=== PATIENT | male | born 1940 | race Caucasian/White ===

== ENCOUNTER → 2017-07-08 12:47 | Outpatient (CLI) | payer OTHER, MEDICARE, BC, SELFPAY ==
--- NOTE | 2017-07-08 12:54 | PCM.CR.HP2 ---
CR - History & Physical - General Arrival date:: 07/08/17 Arrival time:: 12:54 Date of Admission: 07/08/17 Referring Physician: [place], [place] Primary Diagnosis: Aortic Valve Replacement - History of Present Cardiac Event Onset Date: Enter Onset Date of cardiac illnesses in Comment field below Valve Replacement/Repair:: Yes - Nov 12, 2016 Pacemaker/ICD: No Type of Symptoms:: shortness of breath with exertion, history of aortic stenosis. Had echo and stress test before skin cancer surgery found 85% reduction of aortic valve. Interventions with present event:: Echo, stress test, subsequent surgery at [facility] Were there any complications?: None known of. - Medications Home Medications: Ambulatory Orders Medication Instructions Recorded ALPRAZolam [Xanax] 0.5 mg PO QHS 10/24/15 Ascorbic Acid [Vitamin C] 1,000 mg PO DAILY 10/24/15 Cyanocobalamin (Vitamin B-12) 5,000 mg PO DAILY 10/24/15 [B-12] Fosinopril Sodium [Monopril] 10 mg PO DAILY 10/24/15 Garlic 1 mg PO DAILY 10/24/15 Hydrochlorothiazide [Hctz] 25 mg PO DAILY 10/24/15 Metformin HCl [Glucophage] 1,000 mg PO BIDCM 10/24/15 Multivitamin [Daily Multiple 1 each PO DAILY 10/24/15 Vitamin] [place]-3 Fatty Acids/Fish Oil 1 each PO BID 10/24/15 [[place] 3 1,000 mg Softgel] Simvastatin [Zocor] 20 mg PO QHS 10/24/15 Vitamin B Complex 1 each PO DAILY 10/24/15 Vitamin E 1,000 unit PO DAILY 10/24/15 Enoxaparin [Lovenox] 90 mg SC Q12@,18 #10 syringe 10/25/15 Metoprolol Tartrate [Lopressor 50 mg PO BID #60 tablet 10/25/15 (beta lisa)] Warfarin [Coumadin] 5 mg PO DAILY@1700 #30 tablet 10/25/15 Acetaminophen with Codeine 2 each PO Q4H 07/08/17 [Acetaminophen-Cod #2 Tablet] Apixaban [Eliquis] 5 mg PO BID 07/08/17 Fluticasone Propionate 16 gm NS 07/08/17 Ipratropium [place] 0.06% 2 spray NASAL TID 07/08/17 [ATROVENT NASAL SPRAY (g)] - Allergies Allergies/Adverse Reactions: Allergies aspirin Adverse Reaction (Verified 10/24/15 13:55) Vomiting pt states he vomits blood diazepam [From Valium] Adverse Reaction (Verified 07/08/17 13:13) Other - Sleep Disorder Evaluation Hx of Sleep Apnea: Yes Do you snore loudly (louder than talking or can be heard through closed doors)?: No Do you often feel tired/ fatigued/ sleepy during daytime?: Yes Has anyone observed you stop breathing during sleep?: No History of Hypertension (for STOP score): Yes STOP Results: Positive Advanced Directives - Advanced Directives Power of Dog Bather: Yes - son has P.O.A for health care Living Will: No Advance Directives on File: No DNR Order?:: No Past Medical History - Problems and Co-Morbidities Problems & Co-Morbidities: Smoking, Dyslipidemia, Diabetes - Type II DM medication controlled., Obesity, Hypertension, Anxiety - Past Medical Illness Past Medical Illness: Arthritis - osteoarthritis, Diabetes, Back Problems - osteoarthritis, degenerative disc disease lower back and neck (chronic pain). Other Medical Illnesses:: Tremors, GERD, skin cancer partial ear removed, fatigue, chronic pain, elevated PSA, balance disturbance walks with cane, chronic sinusitis, hx of kidney stones, tinnitis left ear, ruptured tynamic membrane, - Past Cardiac Illness Past Cardiac Illness: Valve Disorders - aortic valve stenosis (resolved), Arrhythmias - temporary intermittently atrial fibrillation rate controlled and paced following surgery., LV Dysfunction, Ejection Fraction - 60-65%, Coronary Artery Disease - Other Other: Vision/Eye Problems, Cognition Problems - some problems with concentration - Cardiology Procedures/Interventions Cardiology Procedures/Interventions: Heart Catheterization, Echocardiogram, Stress Echocardiogram - Family History Summary Additional Family History: 2 brothers cancer, sister of Heart Disease. Review of Systems - Review of Systems Hints: Right click = Denies (Slash). Left click = Reports ([place]) Review of Present Symptoms: Reports: Shortness of Breath with Exertion - been told he has start of COPD., Dizziness/Lightheadedness - results of vertigo, balance problems., Fatigue, Appetite - Normal, Sleep - Normal. Denies: Shortness of Breath at Rest, Appetite - Special Diet Risk Factor Assessment - Chief Complaint Chief Complaint: Patient presents to cardiac rehab today on the referral from the [facility] following a recent aortic valve replacement in Oct 2016. - Pulse Pulse Rate: 77 - SpO2 97% room air Pulse Rhythm: Regular - Hypertension How long have you been treated?: several years, really do not know for sure how long Blood Pressure Sitting - Left Arm: 142/70 - Diabetes Diabetic History: Type II, Medication Dependent Nutrition Referral for Diabetes: No - Obesity Height: 5 ft 7 in Weight:: 195 lb Weight in Pounds: 195.0 lbs Body Mass Index (BMI): 30.5 Nutritional Referral for Obesity: No - Physical Inactivity Physical Inactivity: None - Risk Stratification Risk Guidelines: Lowest Risk: Risk Factor for Smoking, Risk Factor for Dyslipidemia, Risk Factor for Diabetes, Risk Factor for Hypertension, Risk Factor for Depression, Highest Risk: Risk Factor for Obesity, Risk Factor for Sedentary Lifestyle - For Smoking Smoking Risk Guidelines: Smoking Low Risk: None or quit greater than 6 months ago. Smoking Moderate Risk: Smoker or quit 6 months or less ago. Smoking High Risk: Smoker - For Dyslipidemia Dyslipidemia Risk Guidelines: Low Risk: Moderate Risk: High Risk: 15-25% fat 25.1-29% fat >/= 30% fat. <7% sat fat 7-9% sat fat >9% sat fat. <150 mg chol 150-299 mg chol >/= 300 mg chol. LDL <100 LDL 100-129 LDL >/= 130. Chol/HDL ratio <5.0 Chol/HDL ratio 5.0-6.0 Chol/HDL ratio >6.0. Triglycerides <100 Triglycerides 100-149 Triglycerides >/= 150 - For Diabetes Mellitus Diabetes Risk Guidelines: Diabetes Low Risk: HgA1c <6.5% and/or FBG <120. Diabetes Moderate Risk: HgA1c 6.6-7.9% and/or FBG 120-180. Diabetes High Risk: HgA1c >/= 8% and/or FBG >180 - For Obesity/Overweight Obesity/Overweight Risk Guidelines: Obesity Low Risk: BMI <25.0. Obesity Moderate Risk: BMI 25-29.9. Obesity High Risk: BMI >/= 30.0 - For Hypertension Hypertension Risk Guidelines: Hypertension Low Risk: Systolic <120 and Diastolic <80. Hypertension Moderate Risk: Systolic 120-139 and Diastolic 80-89. Hypertension High Risk: Systolic >/= 140 and Diastolic >/= 90 - For Sedentary Lifestyle Sedentary Lifestyle Risk Guidelines: Sedentary Lifestyle Low Risk: >/= 1,500 kcal/week. Sedentary Lifestyle Moderate Risk: 700-1,499 kcal/week. Sedentary Lifestyle High Risk: < 700 kcal/week - For Depression Depression Risk Guidelines: Depression Low Risk: Not clinically depressed. Depression Moderate Risk: Mildly depressed. Depression High Risk: Clinically depressed Social History - Smoking History Smoking Status: Never smoker Hx Tobacco Use: No Hx Smoking Exposure: No - Alcohol Use Alcohol Usage: No - Substance Abuse Hx Substance Use: No - Occupation Occupation (List type of work in comments):: Retired - Hobbies, Recreation, Social Activities Hobbies: Other - gardening, mowing the grass, enjoy being out in the yard. Recreational Activities: I am able to engage in all my recreational activities - if take my time and do them slow, I can function in all daily activities. Marital Status - Status Marital Status: - Current Living Arrangements Living Environment:: Alone - feels safe at home - Children How many children do you have?: 2 - 1 , 1-son left Do any of your children live nearby?: Yes - outside of [place] - Safety Do you feel safe in your surroundings?: Yes - Assistance Do you need any assistance at home?: none
--- NOTE | 2017-07-08 13:04 | CR.HP_ITS ---
CR - History & Physical - General Arrival date:: 07/08/17 Arrival time:: 12:54 Date of Admission: 07/08/17 Referring Physician: [place], [place] Primary Diagnosis: Aortic Valve Replacement - History of Present Cardiac Event Onset Date: Enter Onset Date of cardiac illnesses in Comment field below Valve Replacement/Repair:: Yes - Nov 12, 2016 Pacemaker/ICD: No Type of Symptoms:: shortness of breath with exertion, history of aortic stenosis. Had echo and stress test before skin cancer surgery found 85% reduction of aortic valve. Interventions with present event:: Echo, stress test, subsequent surgery at [facility] Were there any complications?: None known of. - Medications Home Medications: Ambulatory Orders Medication Instructions Recorded ALPRAZolam [Xanax] 0.5 mg PO QHS 10/24/15 Ascorbic Acid [Vitamin C] 1,000 mg PO DAILY 10/24/15 Cyanocobalamin (Vitamin B-12) 5,000 mg PO DAILY 10/24/15 [B-12] Fosinopril Sodium [Monopril] 10 mg PO DAILY 10/24/15 Garlic 1 mg PO DAILY 10/24/15 Hydrochlorothiazide [Hctz] 25 mg PO DAILY 10/24/15 Metformin HCl [Glucophage] 1,000 mg PO BIDCM 10/24/15 Multivitamin [Daily Multiple 1 each PO DAILY 10/24/15 Vitamin] [place]-3 Fatty Acids/Fish Oil 1 each PO BID 10/24/15 [[place] 3 1,000 mg Softgel] Simvastatin [Zocor] 20 mg PO QHS 10/24/15 Vitamin B Complex 1 each PO DAILY 10/24/15 Vitamin E 1,000 unit PO DAILY 10/24/15 Enoxaparin [Lovenox] 90 mg SC Q12@,18 #10 syringe 10/25/15 Metoprolol Tartrate [Lopressor 50 mg PO BID #60 tablet 10/25/15 (beta lisa)] Warfarin [Coumadin] 5 mg PO DAILY@1700 #30 tablet 10/25/15 Acetaminophen with Codeine 2 each PO Q4H 07/08/17 [Acetaminophen-Cod #2 Tablet] Apixaban [Eliquis] 5 mg PO BID 07/08/17 Fluticasone Propionate 16 gm NS 07/08/17 Ipratropium [place] 0.06% 2 spray NASAL TID 07/08/17 [ATROVENT NASAL SPRAY (g)] - Allergies Allergies/Adverse Reactions: Allergies aspirin Adverse Reaction (Verified 10/24/15 13:55) Vomiting pt states he vomits blood diazepam [From Valium] Adverse Reaction (Verified 07/08/17 13:13) Other - Sleep Disorder Evaluation Hx of Sleep Apnea: Yes Do you snore loudly (louder than talking or can be heard through closed doors)? : No Do you often feel tired/ fatigued/ sleepy during daytime?: Yes Has anyone observed you stop breathing during sleep?: No History of Hypertension (for STOP score): Yes STOP Results: Positive Advanced Directives - Advanced Directives Power of Entry Level Lab Technician: Yes - son has P.O.A for health care Living Will: No Advance Directives on File: No DNR Order?:: No Past Medical History - Problems and Co-Morbidities Problems & Co-Morbidities: Smoking, Dyslipidemia, Diabetes - Type II DM medication controlled., Obesity, Hypertension, Anxiety - Past Medical Illness Past Medical Illness: Arthritis - osteoarthritis, Diabetes, Back Problems - osteoarthritis, degenerative disc disease lower back and neck (chronic pain). Other Medical Illnesses:: Tremors, GERD, skin cancer partial ear removed, fatigue, chronic pain, elevated PSA, balance disturbance walks with cane, chronic sinusitis, hx of kidney stones, tinnitis left ear, ruptured tynamic membrane, - Past Cardiac Illness Past Cardiac Illness: Valve Disorders - aortic valve stenosis (resolved), Arrhythmias - temporary intermittently atrial fibrillation rate controlled and paced following surgery., LV Dysfunction, Ejection Fraction - 60-65%, Coronary Artery Disease - Other Other: Vision/Eye Problems, Cognition Problems - some problems with concentration - Cardiology Procedures/Interventions Cardiology Procedures/Interventions: Heart Catheterization, Echocardiogram, Stress Echocardiogram - Family History Summary Additional Family History: 2 brothers cancer, sister of Heart Disease. Review of Systems - Review of Systems Hints: Right click = Denies (Slash). Left click = Reports ([place]) Review of Present Symptoms: Reports: Shortness of Breath with Exertion - been told he has start of COPD., Dizziness/Lightheadedness - results of vertigo, balance problems., Fatigue, Appetite - Normal, Sleep - Normal. Denies: Shortness of Breath at Rest, Appetite - Special Diet Risk Factor Assessment - Chief Complaint Chief Complaint: Patient presents to cardiac rehab today on the referral from the [facility] following a recent aortic valve replacement in Oct 2016. - Pulse Pulse Rate: 77 - SpO2 97% room air Pulse Rhythm: Regular - Hypertension How long have you been treated?: several years, really do not know for sure how long Blood Pressure Sitting - Left Arm: 142/70 - Diabetes Diabetic History: Type II, Medication Dependent Nutrition Referral for Diabetes: No - Obesity Height: 5 ft 7 in Weight:: 195 lb Weight in Pounds: 195.0 lbs Body Mass Index (BMI): 30.5 Nutritional Referral for Obesity: No - Physical Inactivity Physical Inactivity: None - Risk Stratification Risk Guidelines: Lowest Risk: Risk Factor for Smoking, Risk Factor for Dyslipidemia, Risk Factor for Diabetes, Risk Factor for Hypertension, Risk Factor for Depression, Highest Risk: Risk Factor for Obesity, Risk Factor for Sedentary Lifestyle - For Smoking Smoking Risk Guidelines: Smoking Low Risk: None or quit greater than 6 months ago. Smoking Moderate Risk: Smoker or quit 6 months or less ago. Smoking High Risk: Smoker - For Dyslipidemia Dyslipidemia Risk Guidelines: Low Risk: Moderate Risk: High Risk: 15-25% fat 25.1-29% fat >/= 30% fat. <7% sat fat 7-9% sat fat >9% sat fat. <150 mg chol 150-299 mg chol >/= 300 mg chol. LDL <100 LDL 100-129 LDL >/= 130. Chol/HDL ratio <5.0 Chol/HDL ratio 5.0-6.0 Chol/HDL ratio >6.0. Triglycerides <100 Triglycerides 100-149 Triglycerides >/= 150 - For Diabetes Mellitus Diabetes Risk Guidelines: Diabetes Low Risk: HgA1c <6.5% and/or FBG <120. Diabetes Moderate Risk: HgA1c 6.6-7.9% and/or FBG 120-180. Diabetes High Risk: HgA1c >/= 8% and/or FBG >180 - For Obesity/Overweight Obesity/Overweight Risk Guidelines: Obesity Low Risk: BMI <25.0. Obesity Moderate Risk: BMI 25-29.9. Obesity High Risk: BMI >/= 30.0 - For Hypertension Hypertension Risk Guidelines: Hypertension Low Risk: Systolic <120 and Diastolic <80. Hypertension Moderate Risk: Systolic 120-139 and Diastolic 80-89. Hypertension High Risk: Systolic >/= 140 and Diastolic >/= 90 - For Sedentary Lifestyle Sedentary Lifestyle Risk Guidelines: Sedentary Lifestyle Low Risk: >/= 1 ,500 kcal/week. Sedentary Lifestyle Moderate Risk: 700-1,499 kcal/week. Sedentary Lifestyle High Risk: < 700 kcal/week - For Depression Depression Risk Guidelines: Depression Low Risk: Not clinically depressed. Depression Moderate Risk: Mildly depressed. Depression High Risk: Clinically depressed Social History - Smoking History Smoking Status: Never smoker Hx Tobacco Use: No Hx Smoking Exposure: No - Alcohol Use Alcohol Usage: No - Substance Abuse Hx Substance Use: No - Occupation Occupation (List type of work in comments):: Retired - Hobbies, Recreation, Social Activities Hobbies: Other - gardening, mowing the grass, enjoy being out in the yard. Recreational Activities: I am able to engage in all my recreational activities - if take my time and do them slow, I can function in all daily activities. Marital Status - Status Marital Status: - Current Living Arrangements Living Environment:: Alone - feels safe at home - Children How many children do you have?: 2 - 1 , 1-son left Do any of your children live nearby?: Yes - outside of [place] - Safety Do you feel safe in your surroundings?: Yes - Assistance Do you need any assistance at home?: none
[2017-07-08 13:25] VITALS: BP 142/70; PULSE 77; BMI 30.5
--- NOTE | 2017-07-08 13:26 | PCM.CR.ITP ---
Exercise - Initial Assessment - Visit Date of Eval: 07/08/17 - established initial ITP - Stages of Change Stages of Change:: Action - Exercise Prescription Mode:: Treadmill, Biodyne, Airdyne, NuStep Angina with exercise?: No Target Heart Rate:: 100-108 - Hypertension Do any of the following apply?: Yes Peak Exercise Blood Pressure:: 140/70 - Intervention Home Exercise/Activity Goal:: Sitting Time <3 hrs/day - Education Goals:: Warm-up, RPE DESTINY Scale, S/S, Safe Exercise, Self-Monitoring - Exercise Program Goals Exercise Program Goals: Aerobic Activity >30 min Nutrition - Initial Assessment - Program Goals Nutrition Program Goals: LDL <70. Total Cholesterol <200. HDL >45. Triglycerides <150. HgbA1C <7%. BMI <25 - Visit Date of Assessment:: 07/08/17 - Stages of Change Stages of Change:: Action - Diabetes Diabetes:: Yes Insulin: No Non-Insulin Dependent?: Yes - Metformin 1000 mg twice daily. Do you monitor your blood sugar at home?: Yes - two days a week. - Weight Management Height: 5 ft 7 in Weight:: 195 lb Body Fat %:: 30 - Intervention Referral to dietitian:: No Referral to Diabetic Clinic:: No Will attend diet classes:: Yes - Education Gave educational materials for:: Signs & symptoms of hypoglycemia, Signs & symptoms of hyperglycemia, Relate diabetes to coronary artery disease, Healthy eating Tobacco - Initial Assessment - Program Goals Tobacco Program Goals: Complete smoking cessation. Attend education classes. Improve Knowledge Test score - Stage of Change Stages of Change:: Action - Learning Barriers Learning Barriers: Vision, Cognitive - some problems with concentration, Ready to Learn - Family Support Do you have family support?: Yes - Tobacco Use Tobacco Use: Non-smoker Do you use smokeless tobacco?: No - Intervention Smoking Cessation Referral:: No Individual Education/Counseling:: No Education Schedule Given:: Yes - Education Gave educational material for:: Coronary artery disease, Risk factors, Medical compliance, Cardiac A&P, Angina signs & symptoms Psychosocial - Initial Assess - Target Goals Target Goals: Assess presence or absence of depression. Using a valid screening tool, maximizes coping skills. Positive support system - Stages of Change Stages of Change:: Action - Psychosocial Test Tool Used:: HANDS Depression Questionnaire - Intervention PS - Interventions: Yes Attend Stress Management Classes, No Referral to Mental Health, No Referral to [facility] Case Management, No Referral to Physician, No Uses Stress Management Skills - Education Gave educational materials for:: Coping techniques, Signs & symptoms of depression, Stress management, Relaxation techniques - Patient/Program Goal Preventative Medication(s):: Aspirin, BAYRON inhibitor, Statin/lipid - Assistive Devices Assistive Devices:: Cane Fall Risk Assessed:: No Patient Health Questionnaire Initial Assessment 1. Little interest or pleasure in doing things: Not at all 2. Feeling down, depressed, or hopeless: Not at all 3. Trouble falling or staying asleep, or sleeping too much: Not at all 4. Feeling tired or having little energy: Not at all 5. Poor appetite or overeating: Not at all 6. Feeling bad about yourself -- or that you are a failure or have let yourself or your family down: Not at all 7. Trouble concentrating on things, such as reading the newspaper or watching television: Not at all 8. Moving or speaking so slowly that other people could have noticed. Or the opposite - being so fidgety or restless that you have been moving around a lot more than usual: Not at all 9. Thoughts that you would be better off , or of hurting yourself in some way: Not at all Total Score: 0 Knowledge Test - Check your knowledge Initial The #1 cause of in the [place] each year is:: Cancer Which of the following is a common treatment for heart disease?: Coronary artery stents The arteries that feed the heart are called:: Coronary arteries HDL cholesterol is known as the good cholesterol.: True What disease increases your risk for heart disease?: Diabetes What food product raises blood cholesterol level the most?: Carbohydrates The bad cholesterol in the blood is called:: LDL Hypertension is another word for:: High stress A blood pressure reading of 148/88 is considered normal.: False Exercise will only benefit your health when your heart rate reaches a target level.: False Total Score:: 6 Self-Efficacy Initial Assessment We would like to know how confident you are in doing certain activities. Please select your confidence level for:: Select your confidence level for the following using the scale 1-10 where 1 is not at all confident and 10 is totally confident. Your score is the average of all 6 responses. Fatigue: How confident are you that you can keep the fatigue caused by your disease from interfering with the things you want to do? Select Number: 6 Physical Discomfort or Pain: How confident are you that you can keep the physical discomfort or pain of your disease from interfering with the things you want to do? Select Number: 7 Emotional Distress: How confident are you that you can keep the emotional distress caused by your disease from interfering with the things you want to do? Select Number: 10 Other Symptoms or Health Problems: How confident are you that you can keep other symptoms or health problems from interfering with the things you want to do? Select Number: 6 Different Tasks and Activities: How confident are you that you can do the different tasks and activities needed to manage your health condition so as to reduce your need to see a doctor? Select Number: 6 Medication: How confident are you that you can do things other than just taking medication to reduce how much your illness affects your everyday life? Select Number: 3 Total Score:: 6 Nutrition Survey - Nutrition Survey Instructions Scoring Instructions: Scoring is as follows: Yes = 1 points. No = 0 point. Patient score that is >/=12 is considered to be at potential nutritional risk and could benefit from a referral to a registered dietitian. - Nutrition Survey Initial Have you lost >10 lbs over the past 2 months without trying?: No Are you following a special diet at home for diabetes, low fat, or low salt?: No Are you interested in meeting with a dietitian for help understanding your diet?: No Do you eat less than 3 meals a day?: No Do you eat fatty meats ([place], sausage, ribs, etc), fried foods, desserts, large amounts of salad dressings, margarine, butter, or cheese most days?: No Do you have food allergies? [Enter types in comment field]: No Do you eat in restaurants more than 3 times a week?: No Do you season food with salt, seasoning salt, or garlic salt?: No Do you used canned, boxed, frozen meals, or soups, seasoning packets?: No Total Score:: 0 Cardiac Rehabilitation Goals - Cardiac Rehab Goals Cardiac Rehabilitation Goals: 1. Maintain the individual as the primary focus of care. 2. To improve the patient's quality of life. 3. Identification of cardiac risk factors and provide cardiac risk factor management. 4. Enhance the psychosocial status of the patient. 5. Reconditioning enough to allow the patient to resume customary activities. 6. Control symptoms of cardiac disease - Scale Scale for measuring improvement of personal goals: Enter appropriate number in Comments. 2 = Unchanged. 3 = Slightly Better. 4 = Moderate Improvement. 5 = Met my Goal Initial Assessment Personal Goals: 30-day Re-assessment: Improve management of stress and emotions, Improve energy level, Participate in home exercise program, Get back to work, or to resume activities faster, Improve knowledge of cardiac disease, Improve muscle strength and endurance, Control risk factors (learn risk factor modification)
[2017-07-08 13:32] VITALS: BP 140/70
== END ==
PROVIDERS: Family Provider Internal Medicine Infectious Disease; PCP Internal Medicine Infectious Disease
DX: Z95.2 Presence of prosthetic heart valve (principal)

== ENCOUNTER 2017-07-26 11:30 | Outpatient (RCR) | payer OTHER, MEDICARE, BC, SELFPAY ==
[2017-07-22 14:42] VITALS: BP 104/60; BP 118/58
--- NOTE | 2017-07-22 14:42 | CR.ITP_ITS ---
General Information - General Information Admitting Diagnosis: AVR; aortic stenosis, afib, htn, dm, dl, melenoma. - Education/Goals Barriers to Learning: Hearing Impairment, Vision Impairment Individual Counseling: Initial Assessment: Abnormal Cholesterol Levels, High Blood Pressure, Diabetes, Metabolic Syndrome (as evidenced by 3 of 5 A-E below) , A. Fasting Blood Sugar >100, B. Waist Circumference >35/Females >40/Males, Hypertension, 30-Day Assessment: Abnormal Cholesterol Levels, High Blood Pressure, Diabetes, Metabolic Syndrome (as evidenced by 3 of 5 A-E below), A. Fasting Blood Sugar >100, B. Waist Circumference >35/Females >40/Males, Hypertension Cardiac Rehabilitation Goals: 1. Maintain the individual as the primary focus of care. 2. To improve the patient's quality of life. 3. Identification of cardiac risk factors and provide cardiac risk factor management. 4. Enhance the psychosocial status of the patient. 5. Reconditioning enough to allow the patient to resume customary activities. 6. Control symptoms of cardiac disease Scale for measuring improvement of personal goals: Enter appropriate number in Comments. 2 = Unchanged. 3 = Slightly Better. 4 = Moderate Improvement. 5 = Met my Goal Personal Goals: Initial Assessment: Improve management of stress and emotions - improving, Improve energy level, Participate in home exercise program - walking more, Get back to work, or to resume activities faster - resuming normal activities, Improve knowledge of cardiac disease, Improve muscle strength and endurance - increasing intensity, Improve diet and eating habits (eat healthier) , 30-day Re-assessment: Improve management of stress and emotions, Improve energy level, Participate in home exercise program, Get back to work, or to resume activities faster, Improve knowledge of cardiac disease, Improve muscle strength and endurance, Improve diet and eating habits (eat healthier) Exercise - 30-day Assessment - Visit Date of Eval: 07/22/17 Session #:: 6 - Stages of Change Stages of Change:: Action - Exercise Prescription Mode:: Treadmill, Airdyne, NuStep Frequency (x/week): 3 Duration:: 30 METs - Progression: 0.5-1 MET as tolerated: 2.5 Target Heart Rate:: 100-108 - Hypertension Resting Blood Pressure:: 104/60 Peak Exercise Blood Pressure:: 118/58 Medication Changes:: No - Intervention Home Exercise/Activity Goal:: Sitting Time <3 hrs/day - Education Goals:: Warm-up, RPE DESTINY Scale, S/S, Safe Exercise, Self-Monitoring - Exercise Program Goals Exercise Program Goals: Aerobic Activity >30 min Nutrition - Initial Assessment - Program Goals Nutrition Program Goals: LDL <70. Total Cholesterol <200. HDL >45. Triglycerides <150. HgbA1C <7%. BMI <25 - Diabetes Do you monitor your blood sugar at home?: Yes - two days a week. Nutrition - 30-Day Assessment - Program Goals Nutrition Program Goals: LDL <70. Total Cholesterol <200. HDL >45. Triglycerides <150. HgbA1C <7%. BMI <25 - Visit Date of Eval: 07/22/17 - Stages of Change Stages of Change:: Action - Lipids Has the patient seen the dietitian?: No - Diabetes Diabetes:: Yes Insulin: Yes Non-Insulin Dependent?: Yes - metformin - Weight Management Weight:: 197 lb - Intervention Referral to dietitian:: No Referral to Diabetic Clinic:: No Will attend diet classes:: Yes - Education Attended class for:: Signs & symptoms of hypoglycemia, Signs & symptoms of hyperglycemia, Relate diabetes to coronary artery disease, Healthy eating Tobacco - Initial Assessment - Program Goals Tobacco Program Goals: Complete smoking cessation. Attend education classes. Improve Knowledge Test score - Learning Barriers Learning Barriers: Vision, Cognitive - some problems with concentration, Ready to Learn Tobacco - 30-Day Assessment - Program Goals Tobacco Program Goals: Complete smoking cessation. Attend education classes. Improve Knowledge Test score - Stage of Change Stages of Change:: Action - Learning Barriers Learning Barriers: Participates in education - Family Support Do you have family support?: Yes - Tobacco Use Tobacco Use: Non-smoker - Intervention Smoking Cessation Referral:: No Individual Education/Counseling:: No Education Schedule Given:: Yes - Education Attended class for:: Coronary artery disease, Risk factors, Sexuality, Medical compliance, Cardiac A&P, Angina signs & symptoms Psychosocial - Initial Assess - Target Goals Target Goals: Assess presence or absence of depression. Using a valid screening tool, maximizes coping skills. Positive support system - Psychosocial Test Tool Used:: HANDS Depression Questionnaire - Assistive Devices Fall Risk Assessed:: No Psychosocial - 30-Day Assess - Target Goals Target Goals: Assess presence or absence of depression. Using a valid screening tool, maximizes coping skills. Positive support system - Stages of Change Stages of Change:: Action - Psychosocial Test Tool Used:: HANDS Depression Questionnaire Self-reported stress:: PTSD Tests Completed: SF - 36 survey completed, Mood Scale Test - Intervention PS - Interventions: Yes Attend Stress Management Classes, Yes Uses Stress Management Skills, No Referral to Mental Health, No Referral to [facility] Case Management, No Referral to Physician - Education Attended classes for:: Coping techniques, Signs & symptoms of depression, Stress management, Relaxation techniques - Patient/Program Goal Preventative Medication(s):: Aspirin, Clopidogrel, Beta lisa, Statin/lipid - Assistive Devices Assistive Devices:: None Fall Risk Assessed:: Yes Patient Health Questionnaire 30-Day Re-eval Assessment 1. Little interest or pleasure in doing things: Not at all 2. Feeling down, depressed, or hopeless: Not at all 3. Trouble falling or staying asleep, or sleeping too much: Not at all 4. Feeling tired or having little energy: Not at all 5. Poor appetite or overeating: Not at all 6. Feeling bad about yourself -- or that you are a failure or have let yourself or your family down: Not at all 7. Trouble concentrating on things, such as reading the newspaper or watching television: Not at all 8. Moving or speaking so slowly that other people could have noticed. Or the opposite - being so fidgety or restless that you have been moving around a lot more than usual: Not at all 9. Thoughts that you would be better off , or of hurting yourself in some way: Not at all Total Score: 0 Self-Efficacy 30-Day Re-eval Assessment We would like to know how confident you are in doing certain activities. Please select your confidence level for:: Select your confidence level for the following using the scale 1-10 where 1 is not at all confident and 10 is totally confident. Your score is the average of all 6 responses. Fatigue: How confident are you that you can keep the fatigue caused by your disease from interfering with the things you want to do? Select Number: 7 Physical Discomfort or Pain: How confident are you that you can keep the physical discomfort or pain of your disease from interfering with the things you want to do? Select Number: 8 Emotional Distress: How confident are you that you can keep the emotional distress caused by your disease from interfering with the things you want to do? Select Number: 10 Other Symptoms or Health Problems: How confident are you that you can keep other symptoms or health problems from interfering with the things you want to do? Select Number: 8 Different Tasks and Activities: How confident are you that you can do the different tasks and activities needed to manage your health condition so as to reduce your need to see a doctor? Select Number: 8 Medication: How confident are you that you can do things other than just taking medication to reduce how much your illness affects your everyday life? Select Number: 6 Total Score:: 7
== END 2017-07-29 23:59 ==
LOC: CR 11:30
PROVIDERS: Family Provider Internal Medicine Infectious Disease; PCP Internal Medicine Infectious Disease
DX: I35.8 Other nonrheumatic aortic valve disorders (principal)
CPT/HCPCS: 93798

== ENCOUNTER 2017-08-28 11:30 | Outpatient (RCR) | payer OTHER, MEDICARE, BC, SELFPAY ==
[2017-07-30 01:08] VITALS: BP 104/60; BP 118/58
--- NOTE | 2017-08-21 09:51 | PCM.CR.ITP ---
General Information - General Information Admitting Diagnosis: Aortic valve replacement - Education/Goals Barriers to Learning: Hearing Impairment, Vision Impairment Individual Counselin-Day Assessment: Abnormal Cholesterol Levels, High Blood Pressure, Diabetes Cardiac Rehabilitation Goals: 1. Maintain the individual as the primary focus of care. 2. To improve the patient's quality of life. 3. Identification of cardiac risk factors and provide cardiac risk factor management. 4. Enhance the psychosocial status of the patient. 5. Reconditioning enough to allow the patient to resume customary activities. 6. Control symptoms of cardiac disease Scale for measuring improvement of personal goals: Enter appropriate number in Comments. 2 = Unchanged. 3 = Slightly Better. 4 = Moderate Improvement. 5 = Met my Goal Personal Goals: 60-day Re-assessment: Improve management of stress and emotions, Improve energy level, Participate in home exercise program, Get back to work, or to resume activities faster, Improve diet and eating habits (eat healthier) Exercise - 60-Day Assessment - Visit Date of Eval: 08/21/17 Session #:: 17 - Stages of Change Stages of Change:: Contemplate - Exercise Prescription Mode:: Treadmill, Airdyne, NuStep Frequency (x/week): 3 Duration:: 30 METs: 3.7 Target Heart Rate:: 100-108 Max HR 103 - Hypertension Resting Blood Pressure:: 122/62 Peak Exercise Blood Pressure:: 152/76 Medication Changes:: No - Intervention Home Exercise/Activity Goal:: Moderate Exercise 30 min/day x 5 days/wk - Education Goals:: Warm-up, RPE DESTINY Scale, S/S, Safe Exercise, Self-Monitoring - Exercise Program Goals Exercise Program Goals: Aerobic Activity >30 min, B/P <130/80 Nutrition - Initial Assessment - Program Goals Nutrition Program Goals: LDL <70. Total Cholesterol <200. HDL >45. Triglycerides <150. HgbA1C <7%. BMI <25 - Diabetes Do you monitor your blood sugar at home?: Yes - two days a week. Nutrition - 60-Day Assessment - Program Goals Nutrition Program Goals: LDL <70. Total Cholesterol <200. HDL >45. Triglycerides <150. HgbA1C <7%. BMI <25 - Visit Date of Eval: 08/21/17 - Stages of Change Stages of Change:: Contemplate - Lipids Has the patient seen the dietitian?: No - Diabetes Diabetes:: Yes - Weight Management Weight:: 86.863 kg - Intervention Referral to dietitian:: No Referral to Diabetic Clinic:: No Will attend diet classes:: Yes - Education Attended class for:: Signs & symptoms of hypoglycemia, Signs & symptoms of hyperglycemia, Relate diabetes to coronary artery disease, Healthy eating Tobacco - Initial Assessment - Program Goals Tobacco Program Goals: Complete smoking cessation. Attend education classes. Improve Knowledge Test score - Learning Barriers Learning Barriers: Vision, Cognitive - some problems with concentration, Ready to Learn Tobacco - 60-Day Assessment - Program Goals Tobacco Program Goals: Complete smoking cessation. Attend education classes. Improve Knowledge Test score - Stage of Change Stages of Change:: Contemplate - Learning Barriers Learning Barriers: Participates in education - Family Support Do you have family support?: Yes - Tobacco Use Tobacco Use: Non-smoker Do you use smokeless tobacco?: No - Intervention Smoking Cessation Referral:: No Individual Education/Counseling:: No Education Schedule Given:: Yes - Education Attended class for:: Tobacco triggers, Coronary artery disease, Risk factors, Sexuality, Medical compliance, Cardiac A&P, Angina signs & symptoms Psychosocial - 60-Day Assess - Target Goals Target Goals: Assess presence or absence of depression. Using a valid screening tool, maximizes coping skills. Positive support system - Stages of Change Stages of Change:: Contemplate - Psychosocial Test Tool Used:: HANDS Depression Questionnaire - Intervention PS - Interventions: Yes Attend Stress Management Classes, Yes Uses Stress Management Skills, No Referral to Mental Health, No Referral to [facility] Case Management, No Referral to Physician - Education Attended classes for:: Coping techniques, Signs & symptoms of depression, Stress management, Relaxation techniques - Assistive Devices Assistive Devices:: Cane Fall Risk Assessed:: Yes Patient Health Questionnaire 60-Day Re-eval Assessment 1. Little interest or pleasure in doing things: Not at all 2. Feeling down, depressed, or hopeless: Not at all 3. Trouble falling or staying asleep, or sleeping too much: Not at all 4. Feeling tired or having little energy: Not at all 5. Poor appetite or overeating: Not at all 6. Feeling bad about yourself -- or that you are a failure or have let yourself or your family down: Not at all 7. Trouble concentrating on things, such as reading the newspaper or watching television: Not at all 8. Moving or speaking so slowly that other people could have noticed. Or the opposite - being so fidgety or restless that you have been moving around a lot more than usual: Not at all 9. Thoughts that you would be better off , or of hurting yourself in some way: Not at all How difficult have these problems made it for you to do your work, take care of things at home, or get along with other people?: Not difficult at all Total Score: 0 Self-Efficacy 60-Day Re-eval Assessment We would like to know how confident you are in doing certain activities. Please select your confidence level for:: Select your confidence level for the following using the scale 1-10 where 1 is not at all confident and 10 is totally confident. Your score is the average of all 6 responses. Fatigue: How confident are you that you can keep the fatigue caused by your disease from interfering with the things you want to do? Select Number: 9 Physical Discomfort or Pain: How confident are you that you can keep the physical discomfort or pain of your disease from interfering with the things you want to do? Select Number: 9 Emotional Distress: How confident are you that you can keep the emotional distress caused by your disease from interfering with the things you want to do? Select Number: 9 Other Symptoms or Health Problems: How confident are you that you can keep other symptoms or health problems from interfering with the things you want to do? Select Number: 9 Different Tasks and Activities: How confident are you that you can do the different tasks and activities needed to manage your health condition so as to reduce your need to see a doctor? Select Number: 9 Medication: How confident are you that you can do things other than just taking medication to reduce how much your illness affects your everyday life? Select Number: 9 Total Score:: 9
[2017-08-21 10:03] VITALS: BP 122/62; BP 152/76
== END 2017-08-29 23:59 ==
LOC: CR 11:30
PROVIDERS: Family Provider Internal Medicine Infectious Disease; PCP Internal Medicine Infectious Disease
DX: I35.8 Other nonrheumatic aortic valve disorders (principal)
CPT/HCPCS: 93798

== ENCOUNTER 2017-09-16 11:30 | Outpatient (RCR) | payer OTHER, MEDICARE, BC, SELFPAY ==
[2017-08-30 00:56] VITALS: BP 122/62; BP 152/76
== END 2017-09-28 23:59 ==
LOC: CR 11:30
PROVIDERS: Family Provider Internal Medicine Infectious Disease; PCP Internal Medicine Infectious Disease
DX: I35.8 Other nonrheumatic aortic valve disorders (principal)
CPT/HCPCS: 93798

== ENCOUNTER 2017-09-18 10:56 | Inpatient (IN) | payer MEDICARE, BC, SELFPAY ==
[2017-09-18] VITALS (8 sets, daily range): BP systolic 116–139; BP diastolic 61–78; PULSE 69–126; RESP 16–24; TEMP 36.4–37; O2SAT 95–97; BMI 31.2; BMI 29.7; BMI 29.8
--- NOTE | 2017-09-18 11:17 | EKG12_ITS ---
Test Reason : FLANK PAIN Blood Pressure : / mmHG Vent. Rate : 072 BPM Atrial Rate : 072 BPM P-R Int : 158 ms QRS Dur : 084 ms QT Int : 386 ms P-R-T Axes : -17 001 008 degrees QTc Int : 422 ms Normal sinus rhythm with sinus arrhythmia Normal ECG Confirmed by SHUKRI HOOPER ([id number]), assistant production editor ANTIONETTE NYE ([id number]) on 09/23/2017 10:45:47 AM Referred By: CLOVIS VILLASEÑOR Confirmed By:SHUKRI HOOPER
--- NOTE | 2017-09-18 11:17 | CT_ITS ---
STUDY: CT ABDOMEN AND PELVIS WITHOUT CONTRAST REASON FOR EXAM: Male, 76 years old. 3 day history of worsening left flank pain. RADIATION DOSAGE (If Supplied By Facility): CTDIvol = ( 12.76 ) mGy, DLP = ( 707.85 ) mGycm TECHNIQUE: Transaxial images were obtained from the dome of the diaphragm to the symphysis pubis without oral contrast, and without intravenous contrast. Sagittal and coronal images were reconstructed. Individualized dose optimization techniques were used for this CT. COMPARISON: None. FINDINGS: Mild degree of increased linear markings at the lung bases suggestive of atelectasis and/or scarring. Prior CABG. Coronary artery calcification. Normal liver. Normal gallbladder and extrahepatic biliary system. Normal spleen. Normal pancreas. Normal bilateral adrenal glands. Moderate degree of right-sided hydronephrosis and hydroureter with the perinephric stranding. Mild to moderate degree of left hydronephrosis and hydroureter with left perinephric stranding. There is a small hiatal hernia. Normal small intestine. There are multiple colonic diverticula consistent with diverticulosis. The appendix is visualized and appears normal. There is diffuse atherosclerotic calcification of the abdominal aorta and its major visceral branches, without a demonstrated aneurysm. Normal inferior vena cava. There is borderline retroperitoneal lymphadenopathy with enlarged nodes no greater than 10mm in the short axis diameter. A Sheffield catheter is seen within the urinary bladder. There is diffuse wall thickening of the bladder. There is evidence of a 4.4 cm x 2.4 cm mass at the base of the bladder worse on the right side. Calcification is seen along the anterior aspect of the mass. Bladder carcinoma should be ruled out. Normal abdominal wall. There are degenerative changes of the visualized lumbar spine. CT/Abdomen/Pelvis without Cont IMPRESSION: Bilateral hydronephrosis and hydroureter most likely secondary to the mass seen at the base of the bladder worse on the right side. Sigmoid diverticulosis. Atherosclerotic plaque formation of the abdominal aorta and origin of the major visceral branches. Electronically Signed: Javier Unger MD at 14:52 EDT Tel [phone], Service support ,
[2017-09-18] MEDS: Morphine 4 MG/ML Syringe IV (11:41)
[2017-09-18] MEDS: Ondansetron 4 MG/2 ML Vial IV (11:41)
[2017-09-18 11:48] LABS: Absolute Lymphocyte Count 1.27 X10^3/ul (0.83-4.51); Absolute Neutrophil Count 9.7 X10^3/uL (2.0-7.7); Basophil# 0.01 X10^3/uL; Basophil% 0.1 % (0-1); Eosinophil# 0.01 X10^3/uL; Eosinophils% 0.1 % (0-5); Hematocrit 35.5 % (40-54); Hemoglobin 12.1 g/dl (13.0-16.5); Lymphocyte # 1.27 X10^3/ul (4.0); Lymphocyte % 10.6 % (19-41); Mean Corp Hgb Conc 34.1 g/gl (32-36); Mean Corpuscular Hgb 32.6 pg (27.0-32.0); Mean Corpuscular Volume 95.7 fL (80-94); Mean Platelet Vol. 10.4 fl (6.2-12.0); Monocyte# 0.91 X10^3/uL; Monocyte% 7.6 % (0-10); Neutrophil # 9.71 X10^3/uL (2.7-7.7); Neutrophil % 81.3 % (47-70); POSITIVE COUNT NO; POSITIVE DIFFERENTIAL NO; POSITIVE MORPHOLOGY NO; Platelet Count 241 K/mm3 (150-450); RBC Distribution Width CV 12.8 % (11.6-14.6); RBC Distribution Width SD 43.7 fl (35.1-43.9); Red Blood Count 3.71 M/mm3 (4.6-6.2); White Blood Count 11.9 K/mm3 (4.4-11.0)
[2017-09-18 11:57] LABS: Bacteria 0 SEEN /hpf (None Seen); Mucous, Urine 0 SEEN /hpf (<or=2+)
[2017-09-18 12:00] LABS: Anion Gap 9 (5-15); BUN 46 mg/dL (7-18); BUN/Creat Ratio 13.3 RATIO (10-20); Calcium,Total 8.6 mg/dL (8.5-10.1); Chloride 112 mmol/L (98-107); Creatinine, Serum 3.47 mg/dL (0.70-1.30); EST Glomerular Filtration Rate 18 mL/min (>60); Est Glom Filt Rate - Afr Amer 22 mL/min (>60); Estimated Creatinine Clearance 16.67 ml/min; Glucose 173 mg/dL (74-106); Potassium 5.1 mmol/L (3.5-5.1); Sodium Level 142 mmol/L (136-145)
[2017-09-18 12:02] LABS: Color, Urine Straw (Yellow); Glucose, Dipstick Normal (Normal); Ketone-Dipstick 5 mg/dl (Negative); Leukocyte Esterase-Dipstick 25 /ul (Negative); Nitrite-Dipstick Negative (Negative); Occult Blood-Urine 150 /ul (Negative); Protein-Dipstick 30 mg/dl (Negative); Specific Gravity, Urine 1.015 (1.002-1.030); Urine Bilirubin Dipstick Negative (Negative); Urine Clarity Clear (Clear); Urine Urobilinogen Normal (Normal)
[2017-09-18 12:19] LABS: Red Blood Cells-Urine 10-25 SEEN /hpf (0-5); Squamous Epithelial Cells - UA 0-5 SEEN /hpf (0-5); White Blood Cells 5-10 SEEN /hpf (0-5)
--- NOTE | 2017-09-18 13:07 | ED.VISSUMM ---
- ER Visit Summary Date of Service: 09/18/17 Chief Complaint: Left flank pain History of Present Illness: The patient is a 76 M who goes to the [facility]. He is a very poor informant. He reports that he has left lower back pain that began 2 days ago. It is a sharp pain that is 10 out of 10 at worst and 8 out of 10 currently. It is worsened by nothing including movement. It is relieved by laying on the floor. He denies any nausea or vomiting. He reports that he had several episodes of black diarrhea 4 days ago. His last bowel movement was today and it was formed and black. Patient reports that he has been unable to empty his bladder for a few weeks. He states that he will sit on the toilet for 10-15 minutes and occasionally passes small volume of urine. He has not had this previously. States that he had a PSA done at the [facility] a few months ago that was 34. He has not seen a urologist. Patient denies any recent injury to his back. No fall or MVA. There is no radiation of the pain to his legs. No numbness, tingling, or weakness in his legs. He denies any fever or chills. Physical Examination: Vitals: Stable. Afebrile. General: Well-nourished and well-developed. Head: Normocephalic atraumatic. Neck: Supple, no lymphadenopathy. No JVD. Nontender. Cardiovascular: Regular rate and rhythm. 2 out of 6 systolic murmur. Respiratory: No respiratory distress. Clear to auscultation bilaterally. Abdominal: Soft, moderate suprapubic tenderness with a grossly distended bladder, nondistended, normal bowel sounds. No guarding, rebound, or peritoneal signs. Back: Nontender. No CVA or vertebral tenderness. Extremities: Nontender, no edema. Skin: Normal color, no rash. Neurologic: Alert and oriented ?3. Cranial nerves II through XII are intact. Normal strength and sensation. Psych: Normal affect. Test Results: EKG is sinus at 72 with no acute changes. UA has 5-10 white blood cells, 10-25 red blood cells, and no bacteria. This was from a cath specimen. Chem-7 is more for chloride 112, glucose 173, BUN 46, creatinine 3.47. The only other creatinine we have for him was in 2016 and that time was 0.91. CBC is marked for white count of 11.9, H&H of 12.1 35.5, 7 neutrophils 81, lymphs lites of 11. Clinical Impression(s) from Imaging Studies Abdomen/Pelvis CT 09/18/17 11:17 IMPRESSION: Bilateral hydronephrosis and hydroureter most likely secondary to the mass seen at the base of the bladder worse on the right side. Sigmoid diverticulosis. Atherosclerotic plaque formation of the abdominal aorta and origin of the major visceral branches. Electronically Signed: Javier Unger MD at 14:52 EDT Tel [phone], Service support , Emergency Department Course and Treatment: Patient had a Sheffield catheter placed and had immediate return of 1400 cc of urine. He was given morphine and Zofran IV. He is resting comfortably. Patient was given a dose of Rocephin IV and his urine was sent for culture. Treatment Plan: Patient has Medicare part a and B. We did discuss with the [facility] and they do not have beds. He was discussed with Dr. Alvarado and Dr. Pérez. He will be admitted for further evaluation and treatment. Disposition: Admitted in improved condition. Impression: 1. Urinary retention. 2. Acute renal insufficiency. 3. Bladder mass. This note was generated with [employer] dictation software. It may contain incorrect words, spelling, and punctuation that were not noted in review of the chart prior to signing ED Disposition - Plan for ED Patient: Chief Complaint: Flank Pain Referrals: Kyleigh Castillo [Primary Care Provider] -
--- NOTE | 2017-09-18 13:12 | ED.DCSUM_ITS ---
- ER Visit Summary Date of Service: 09/18/17 Chief Complaint: Left flank pain History of Present Illness: The patient is a 76 M who goes to the [facility]. He is a very poor informant. He reports that he has left lower back pain that began 2 days ago. It is a sharp pain that is 10 out of 10 at worst and 8 out of 10 currently. It is worsened by nothing including movement. It is relieved by laying on the floor. He denies any nausea or vomiting. He reports that he had several episodes of black diarrhea 4 days ago. His last bowel movement was today and it was formed and black. Patient reports that he has been unable to empty his bladder for a few weeks. He states that he will sit on the toilet for 10-15 minutes and occasionally passes small volume of urine. He has not had this previously. States that he had a PSA done at the [facility] a few months ago that was 34. He has not seen a urologist. Patient denies any recent injury to his back. No fall or MVA. There is no radiation of the pain to his legs. No numbness, tingling, or weakness in his legs. He denies any fever or chills. Physical Examination: Vitals: Stable. Afebrile. General: Well-nourished and well-developed. Head: Normocephalic atraumatic. Neck: Supple, no lymphadenopathy. No JVD. Nontender. Cardiovascular: Regular rate and rhythm. 2 out of 6 systolic murmur. Respiratory: No respiratory distress. Clear to auscultation bilaterally. Abdominal: Soft, moderate suprapubic tenderness with a grossly distended bladder , nondistended, normal bowel sounds. No guarding, rebound, or peritoneal signs. Back: Nontender. No CVA or vertebral tenderness. Extremities: Nontender, no edema. Skin: Normal color, no rash. Neurologic: Alert and oriented ?3. Cranial nerves II through XII are intact. Normal strength and sensation. Psych: Normal affect. Test Results: EKG is sinus at 72 with no acute changes. UA has 5-10 white blood cells, 10-25 red blood cells, and no bacteria. This was from a cath specimen. Chem-7 is more for chloride 112, glucose 173, BUN 46, creatinine 3.47. The only other creatinine we have for him was in 2016 and that time was 0.91. CBC is marked for white count of 11.9, H&H of 12.1 35.5, 7 neutrophils 81 , lymphs lites of 11. Clinical Impression(s) from Imaging Studies Abdomen/Pelvis CT 09/18/17 11:17 IMPRESSION: Bilateral hydronephrosis and hydroureter most likely secondary to the mass seen at the base of the bladder worse on the right side. Sigmoid diverticulosis. Atherosclerotic plaque formation of the abdominal aorta and origin of the major visceral branches. Electronically Signed: Javier Unger MD at 14:52 EDT Tel [phone], Service support , Emergency Department Course and Treatment: Patient had a Sheffield catheter placed and had immediate return of 1400 cc of urine. He was given morphine and Zofran IV. He is resting comfortably. Patient was given a dose of Rocephin IV and his urine was sent for culture. Treatment Plan: Patient has Medicare part a and B. We did discuss with the [facility] and they do not have beds. He was discussed with Dr. Alvarado and Dr. Pérez. He will be admitted for further evaluation and treatment. Disposition: Admitted in improved condition. Impression: 1. Urinary retention. 2. Acute renal insufficiency. 3. Bladder mass. This note was generated with [employer] dictation software. It may contain incorrect words, spelling, and punctuation that were not noted in review of the chart prior to signing ED Disposition - Plan for ED Patient: Chief Complaint: Flank Pain Referrals: Kyleigh Castillo [Primary Care Provider] -
--- NOTE | 2017-09-18 13:19 | ED.RN ---
MEDICARE PART AB PER [place] WITH THE [place]
[2017-09-18] MEDS: Ceftriaxone 1 GM/50 ML BAG IV (13:50)
--- NOTE | 2017-09-18 14:48 | CASEMGMT ---
Social Work Note In to complete initial assessment. Introduced self and role at [facility]. The pt reports to live alone in a one-story home with laundry in the basement. Denies access issues and states he manages the stairs to the basement without difficulty. DME consists of a cane, walkers, toilet riser and w/c. He uses a cane at his baseline. Reports to be independent with ADL's and still drives. Confirms that his PCP is Dr. Castillo and [facility] and for anything they do not cover he uses [facility]. Pt does have advanced directives and his son, Goyo, is his HCPOA. Pt has no hx of HHC or SNF and anticipates returning home at discharge. SHLOMO LAGOS on assigned unit to follow for discharge planning. Tina Ruffin, FREEZING ROOM WORKER, HR INTERN
[2017-09-18] MEDS: Dext 5%-0.45% NS 1,000 ML 150 ML IV ×2 (16:41→21:58)
[2017-09-18 17:55] LABS: Bedside Glucose 124 mg/dL (70-110)
--- NOTE | 2017-09-18 19:09 | PCM.HP.STD ---
Problem List (1) Acute renal failure Status: Acute Qualifiers: Acute renal failure type: unspecified Qualified Code(s): N17.9 - Acute kidney failure, unspecified (2) H/O heart valve replacement with bioprosthetic valve Status: Acute (3) Aortic stenosis Status: Acute Qualifiers: Cardiac valve disease etiology: etiology unspecified Qualified Code(s): I35.0 - Nonrheumatic aortic (valve) stenosis (4) Atrial fibrillation with rapid ventricular response Status: Acute (5) Hypertension Status: Chronic Qualifiers: Hypertension type: essential hypertension Qualified Code(s): I10 - Essential (primary) hypertension (6) Diabetes mellitus type 2 in nonobese Status: Chronic History of Present Illness Date of Admission: 09/18/17 Chief Complaint: low to mid back pain. Patient is a 76 yo WM, presents with JUAN JOSE, admitted on 09/18/17. He was having low back pain for past few days, gradually worsening. He also having problems with urinating for past several month with hesitation, incomplete emptying, and dribbling. He was seen [facility] recently, where PSA was 34. He was supposed to see urologist in near future. He presented to ED today with worsening of back pain. In ED, he was found to have creatinine of 3.47. 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 Sheffield was inserted, had 1.4 liter of urine immediately. The back pain had improved. He also mentioned that he had few days of black stools. His Hgb is 12.1, and baseline is normal. He is on Eliquis for atrial fibrillation. Past Medical History Past Medical History (Chronic Problems): Chronic Problems Hypertension (Chronic) Diabetes mellitus type 2 in nonobese (Chronic) Allergies albuterol Allergy (Verified 09/18/17 11:04) Unknown clonazepam Allergy (Verified 09/18/17 11:04) Unknown ibuprofen Allergy (Verified 09/18/17 11:04) Unknown ipratropium Allergy (Verified 09/18/17 11:04) Unknown aspirin Adverse Reaction (Verified 09/18/17 11:04) Vomiting pt states he vomits blood Home Medications: Ambulatory Orders Medication Instructions Recorded ALPRAZolam [Xanax] 0.5 mg PO 10/24/15 Ascorbic Acid [Vitamin C] 1,000 mg PO DAILY 10/24/15 Fosinopril Sodium [Monopril] 10 mg PO DAILY 10/24/15 Garlic 1 mg PO DAILY 10/24/15 Metformin HCl [Glucophage] 1,000 mg PO BIDCM 10/24/15 Multivitamin [Daily Multiple 1 each PO DAILY 10/24/15 Vitamin] [place]-3 Fatty Acids/Fish Oil 1 each PO DAILY 10/24/15 [[place] 3 1,000 mg Softgel] Simvastatin [Zocor] 20 mg PO QHS 10/24/15 Vitamin B Complex 1 each PO DAILY 10/24/15 Vitamin E 1,000 unit PO DAILY 10/24/15 Metoprolol Tartrate [Lopressor 50 mg PO BID #60 tablet 10/25/15 (beta lisa)] Apixaban [Eliquis] 5 mg PO BID 07/08/17 Acetaminophen [Tylenol Extra 500 mg PO Q6H PRN PRN 09/18/17 Strength] Curamin 3 tab PO QHS 09/18/17 Cyanocobalamin (Vitamin B-12) 5,000 mcg SL BID 09/18/17 [Vitamin B-12] Gabriella Extract [Gabriella] 1,000 mg PO BID 09/18/17 Methylsulfonylmethane [MSM] 1,500 mg PO TID 09/18/17 Niacinamide 500 mg PO DAILY 09/18/17 Pyridoxine HCl [Vitamin B-6] 100 mg PO DAILY 09/18/17 Sodium Chloride 1 gm PO DAILY 09/18/17 Ubidecarenone [Co Q-10] 200 mg PO DAILY 09/18/17 Vanadyl Sulfate 10 mg PO DAILY 09/18/17 Psychiatric History: No pertinent psych hx Smoking Status: Never smoker Tobacco Use: Secondhand - *Family History Sibling History Items: Heart Disease Review of Systems Comment: In general: Patient has been in good health, denied of any constitutional symptoms, such as weight loss, or gain, fever, chills, or night sweats. Patient denied of any profound fatigue. HEENT: Unremarkable. Patient denied of any dizziness, chronic headache, blurred vision, double vision, dry mouth, or nasal congestion. CV/respiratory: There is no exertional shortness of breath, chest pain, palpitation, wheezing, cough, claudication, cold feet, or peripheral edema. GI: Patient denied any abdominal pain, nausea, vomiting, diarrhea, constipation. +Dark stools as above. : See HPI. Neurology: Unremarkable. There is no history of seizure as an adult. Psychological: Unremarkable. Endocrine: Unremarkable. Musculoskeletal: Unremarkable. VTE Information - Inpt Only VTE Present on Admission: No VTE Mechan Device Prophylaxis: SCD's, Knee High RONAN Hose VTE Pharm Prophylaxis ordered?: Yes Patient Problems: Active and Suspected Problems Acute renal failure (Acute) H/O heart valve replacement with bioprosthetic valve (Acute) Objective: In general, patient is a well-nourished and developed adult. HEENT: Head is atraumatic, and normocephalic. Pupils are equal, round, and reactive to light and accommodations. Neck is supple. There is no lymphadenopathy, or thyromegaly. Oral mucosa is pink, and moist. There are no lesions. Heart: Auscultation is normal with regular rhythm and rate. There is no extra heart sounds, or murmurs. S1 and S2 are present. Point of maximal impulse is not displaced. Lungs: Lungs are clear to auscultation bilaterally. There is no wheezing, or crackles. Abdomen: Abdominal wall is non-tender, and non-distended. There is no palpable mass or organomegaly. Normoactive bowel sounds are present. Extremities: There is no cyanosis or clubbing. Peripheral pulses are palpable. There is no edema. Skin: There are no any skin discoloration or lesions. Neurological: CN II - XII are intact. Sensory and motor functions are grossly normal with no obvious deficit. Cerebellar functions are within normal range. Gait was not tested. - Physical Exam Vital Signs Temp Pulse Resp BP Pulse Ox 98.6 F 117 H 20 H 123/61 H 95 09/18/17 16:30 09/18/17 16:54 09/18/17 16:30 09/18/17 16:30 09/18/17 16:30 Oxygen Delivery Method Room Air Intake and Output for Last 24 Hours 09/16/17 09/17/17 09/18/17 23:59 23:59 23:59 Intake Total 426 / 426 Output Total 500 / 3000 Balance -74 / -2574 POC Glucose 09/18/17 17:46 POC Glucose 124 H Assessment/Plan All Active Problems Acute renal failure (Acute) H/O heart valve replacement with bioprosthetic valve (Acute) Aortic stenosis (Acute) Atrial fibrillation with rapid ventricular response (Acute) Patient is a 76 yo WM, presents with JUAN JOSE, admitted on 09/18/17. He was having low back pain for past few days, gradually worsening. He also having problems with urinating for past several month with hesitation, incomplete emptying, and dribbling. He was seen at [facility] recently, where PSA was 34. He was supposed to see urologist in near future. He presented to ED today with worsening of back pain. In ED, he was found to have creatinine of 3.47. 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 Sheffield was inserted, had 1.4 liter of urine immediately. The back pain had improved. He also mentioned that he had few days of black stools. His Hgb is 12.1, and baseline is normal. He is on Eliquis for atrial fibrillation. #1 JUAN JOSE. Due to post-renal failure with obstruction, likely with prostate mass. Sheffield is in place. He would like to follow up at [facility] eventually, but consult urology here for management of obstructive uropathy. Nephrology consult requested. IVF support to match post-obstructive diuresis. #2 Bladder mass. Likely with prostate cancer. Urology consulted. #3 DM II. Hold metformin. Sliding scale insulin was added. #4 UTI. UA is positive, await culture. Started on ceftriaxone empirically. Continue. #5 Chronic blood loss anemia. He had recent black stool, and on anticoagulation. Check Hemoccult stool. Iron panel. Monitor CBC. #6 History of with aortic valve replacement with bioprosthetic valve. #7 Chronic atrial fibrillation. Rate controlled with metoprolol. Continue Eliquis for anticoagulation. VTE prophylaxis: Eliquis po. GI prophylaxis: PPI po. He is full code. Disposition: Home in 2 to 3 days. Code Visit Inpatient E&M: 94905 Init Hosp L3
[2017-09-18] MEDS: Metoprolol Tartrate 50 MG Tablet PO (21:48)
[2017-09-18] MEDS: Acetaminophen 325 MG Tablet 650 MG PO (21:48)
[2017-09-18] MEDS: APIXABAN 5 MG TABLET PO (21:48)
[2017-09-18] MEDS: Atorvastatin Calcium 10 MG Tablet PO (21:48)
[2017-09-18] MEDS: Insulin Lispro 100 UNIT/ML INSULN.PEN SQ (21:52)
[2017-09-18 22:06] LABS: Bedside Glucose 160 mg/dL (70-110)
[2017-09-18] MEDS: Glucerna Shake 120 ML LIQUID PO (22:45)
[2017-09-19] VITALS (9 sets, daily range): BP systolic 122–145; BP diastolic 62–72; PULSE 71–90; RESP 14–16; TEMP 36.7–36.9; O2SAT 96–98
[2017-09-19] MEDS: Acetaminophen 325 MG Tablet 650 MG PO ×3 (03:54→22:52)
[2017-09-19] MEDS: Dext 5%-0.45% NS 1,000 ML 150 ML IV ×4 (03:54→23:29)
[2017-09-19] MEDS: Insulin Lispro 100 UNIT/ML INSULN.PEN SQ ×2 (06:35→12:08)
[2017-09-19 06:38] LABS: Absolute Lymphocyte Count 1.53 X10^3/ul (0.83-4.51); Absolute Neutrophil Count 6.9 X10^3/uL (2.0-7.7); Basophil# 0.02 X10^3/uL; Basophil% 0.2 % (0-1); Eosinophil# 0.06 X10^3/uL; Eosinophils% 0.6 % (0-5); Hematocrit 31.2 % (40-54); Hemoglobin 10.4 g/dl (13.0-16.5); Lymphocyte # 1.53 X10^3/ul (4.0); Mean Corp Hgb Conc 33.3 g/gl (32-36); Mean Corpuscular Hgb 32.2 pg (27.0-32.0); Mean Corpuscular Volume 96.6 fL (80-94); Mean Platelet Vol. 10.8 fl (6.2-12.0); Monocyte# 0.99 X10^3/uL; Monocyte% 10.4 % (0-10); Neutrophil # 6.94 X10^3/uL (2.7-7.7); Neutrophil % 72.6 % (47-70); Platelet Count 242 K/mm3 (150-450); RBC Distribution Width CV 12.8 % (11.6-14.6); RBC Distribution Width SD 43.4 fl (35.1-43.9); Red Blood Count 3.23 M/mm3 (4.6-6.2); White Blood Count 9.6 K/mm3 (4.4-11.0)
[2017-09-19 06:40] LABS: Bedside Glucose 157 mg/dL (70-110)
[2017-09-19 06:41] LABS: POSITIVE COUNT NO; POSITIVE DIFFERENTIAL NO; POSITIVE MORPHOLOGY NO
[2017-09-19 06:57] LABS: Anion Gap 8 (5-15); BUN 35 mg/dL (7-18); BUN/Creat Ratio 17.2 RATIO (10-20); Calcium,Total 7.6 mg/dL (8.5-10.1); Chloride 115 mmol/L (98-107); Creatinine, Serum 2.04 mg/dL (0.70-1.30); EST Glomerular Filtration Rate 34 mL/min (>60); Est Glom Filt Rate - Afr Amer 41 mL/min (>60); Estimated Creatinine Clearance 28.35 ml/min; Ferritin 192 ng/mL (26-388); Glucose 167 mg/dL (74-106); Iron 47 ug/dL (65-175); Iron Binding Capacity,Total 206 ug/dL (250-450); PERCENT IRON SATURATION 22.8 % (15.0-55.0); Potassium 4.2 mmol/L (3.5-5.1); Sodium Level 145 mmol/L (136-145)
--- NOTE | 2017-09-19 07:37 | PCM.PN.HOSP ---
Patient Problems: Active and Suspected Problems Acute renal failure (Acute) H/O heart valve replacement with bioprosthetic valve (Acute) BPH with urinary obstruction (Acute) Urinary retention (Acute) Subjective: Patient with improvement since admission status post Crump placement with decent output, mild hematuria with evaluation this morning per Dr. Alvarado w/ planned outpatient evaluation and set up for urological intervention for bladder mass. Patient states that his lower back discomfort and suprapubic discomfort have improved since admission but still he does have this intermittently. Discussed plan of care which includes echocardiogram today and discharge once creatinine decreased felt appropriate, possibly today pending nephrology evaluation with outpatient cardiology evaluation and clearance prior to follow-up with Dr. Escalante for arrangement of urological intervention. Patient denies fevers, chills, nausea, emesis, abdominal pain, chest pain or dyspnea. Objective: Physical Examination: General: awake, alert, oriented x 3 and cooperative, seated upright in bed in no apparent distress. Skin: normal color, turgor, no icterus, cyanosis except occasional extremity very staged ecchymoses. HEENT: AT/NC, EOMI, PERRLA, MMM. Lungs: Diminished breath sounds bases, moderate effort, no rales, ronchi or wheezing. Heart: Regular rate and rhythm; no gallop, rub audible, SM, s/p AVR. Abdomen: soft, thin/cachectic appearance, minimal suprapubic TTP, ND, normal BS, crump in place. Extremities: no cyanosis, clubbing, or edema. Neurological: patient awake, alert, oriented x 3; cognitive function intact; pupils equally reactive to light and accomodation; cranial nerves II-XII grossly normal, moving all 4 extremities, no focal deficits, strength moderately to severely globally decreased. Psychiatric: affect appears normal, no acute evidence of depressive or anxiety feelings. Vitals/I&O's: Vital Signs Temp Pulse Resp BP Pulse Ox 98.4 F 82 16 124/72 H 96 09/19/17 03:50 09/19/17 03:53 09/19/17 03:50 09/19/17 03:50 09/19/17 03:50 Oxygen Delivery Method Room Air Intake and Output for Last 24 Hours 09/17/17 09/18/17 09/19/17 23:59 23:59 23:59 Intake Total 1374 / 1374 987 / 987 Output Total 1000 / 3500 1000 / 1000 Balance 374 / -2126 -13 / -13 Laboratory Results 09/18/17 17:46: POC Glucose 124 H 09/18/17 21:50: POC Glucose 160 H 09/19/17 05:40: WBC 9.6, RBC 3.23 L, Hgb 10.4 L, Hct 31.2 L, MCV 96.6 H, MCH 32.2 H, MCHC 33.3, RDW 12.8, RDW Differential 43.4, Plt Count 242, MPV 10.8, Immature Gran % (Auto) 0.200, Neut % (Auto) 72.6 H, Lymph % (Auto) 16.0 L, Grimes % (Auto) 10.4 H, Eos % (Auto) 0.6, Baso % (Auto) 0.2, Absolute Neuts (auto) 6.9, Absolute Lymphs (auto) 1.53, Total Counted Not Reportable 09/19/17 05:40: Sodium 145, Potassium 4.2, Chloride 115 H, Carbon Dioxide 22.0, Anion Gap 8, BUN 35 H, Creatinine 2.04 H, Estim Creat Clear Calc 28.35, Est GFR (MDRD) Af Amer 41 L, Est GFR (MDRD) Non-Af 34 L, BUN/Creatinine Ratio 17.2, Glucose 167 H, Calcium 7.6 L, Iron 47 L, TIBC 206 L, Iron Saturation 22.8, Ferritin 192 09/19/17 06:33: POC Glucose 157 H Current Medications Acetaminophen (Tylenol) 650 mg PO Q6H PRN PRN PRN Reason: Mild Pain (1-3)/Temp > 100.7 F Last Admin: 09/19/17 03:54 Dose: 650 mg Al Hydroxide/Mg Hydroxide (Mylanta Ii) 30 ml PO Q6H PRN PRN PRN Reason: Gastric burning Apixaban (Eliquis) 5 mg PO BID [facility] Last Admin: 09/18/17 21:48 Dose: 5 mg Ascorbic Acid (Vitamin C) 1,000 mg PO DAILY@0800 [facility] Atorvastatin Calcium (Lipitor) 10 mg PO QHS [facility] Last Admin: 09/18/17 21:48 Dose: 10 mg Cyanocobalamin (Vitamin B12) 1,000 mcg PO DAILY@0800 [facility] Dextrose (D50w Syringe) 0 gm IV X1 PRN; Protocol PRN Reason: Hypoglycemia Glucagon () 1 mg IM .X1 PRN PRN Reason: Hypoglycemia Dextrose/Sodium Chloride () 1,000 mls @ 150 mls/hr IV .Q6H40M [facility] Last Admin: 09/19/17 03:54 Dose: 150 mls/hr Insulin Human Lispro (Humalog Kwikpen (Bkc)) 0 unit SQ ACHS GABRIELLE PRN Reason: Protocol Last Admin: 09/19/17 06:35 Dose: 1 units Magnesium Hydroxide (Milk Of Magnesia) 30 ml PO DAILY PRN PRN PRN Reason: Constipation Metoprolol Tartrate (Lopressor (Beta Lisa)) 50 mg PO BID [facility] Last Admin: 09/18/17 21:48 Dose: 50 mg Nutritional Formula (Lactose Free) (Glucerna Shake) 120 ml PO 4X/DAY [facility] Last Admin: 09/18/17 22:45 Dose: 120 ml Ondansetron HCl (Zofran) 4 mg IV Q8H PRN PRN PRN Reason: NAUSEA Oxycodone HCl (Oxyir) 5 - 10 mg PO Q4H PRN PRN PRN Reason: MOD-SEVERE PAIN (4-10/10) Pantoprazole Sodium (Protonix) 20 mg PO DAILY [facility] Pyridoxine HCl (Vitamin B-6) 100 mg PO DAILY [facility] Sodium Chloride () 5 - 30 ml IV UD PRN PRN Reason: SALINE FLUSH Zolpidem Tartrate (Ambien (Generic)) 5 mg PO QHS PRN PRN PRN Reason: INSOMNIA Medical Necessity - Tobacco Use Smoking Status: Never smoker Tobacco Use: Secondhand Assessment/Plan All Active Problems Acute renal failure (Acute) H/O heart valve replacement with bioprosthetic valve (Acute) BPH with urinary obstruction (Acute) Urinary retention (Acute) Aortic stenosis (Acute) Atrial fibrillation with rapid ventricular response (Acute) The patient is a 76 y/o M w/ PMHx: Valvular Heart Disease w/ History of Bioprosthetic AVR, PAF, HTN, HLD, Diabetes mellitus type II who presents to the [facility] ED on 09/18/17 w/ onset low back discomfort worsening over the last several days with difficulty with urination including hesitation, incomplete emptying and dribbling with recent [facility] with PSA 34 with planned urology evaluation in the future. (1) Acute kidney injury secondary to BL Hydronephrosis and Hydroureter secondary to Mass Lesion at the Bladder Base causing Obstruction: Admission BUN/Cr 46/3.47, prior baseline creatinine noted to be normal range, 09/19/17 BUN/Cr 35/2.04, Urology evaluation performed, crump placed with improving function as noted, Nephrology consulted and pending, will plan once improvement Cr per their discretion appropriate discharge to home w/ crump in place, planned Cardiology evaluation for clearance and then follow-up with Dr. Alvarado for operative intervention. UA not marked, no evidence UTI thus per discussion with Dr. Alvarado, defer abx therapy. Will add PT, OT, case management for discharge planning especially given patient lives alone and is debilitated. (2) PAF: Discussion w/ Urology s/p evaluation this AM, no planned intervention this admission, will plan discharge to home w/ outpatient follow-up with his Claims Coordinator for clearance (Dr. Glasgow) with then follow-up in the office with Dr. Alvarado, continue Eliquis, continue metoprolol. ECHO ordered prior to discharge secondary to last noted 2015, [facility]. (3) Valvular Heart Disease: History of Bioprosthetic AVR, ECHO pending, on eliquis. (4) Diabetes mellitus type II: Hold oral home regimen, continue home insulin regimen, ADA diet, accu checks w/ ISS. HgbA1c pending, nutrition consultation for diet education and teaching to improve operative outcomes. (5) Hyperlipidemia: Continue home statin regimen. (6) Hypertension: Continue home regimen including metoprolol, PRN hydralazine. (7) Macrocytic Anemia: Admission Hgb 12.1, Fe panel w/ low Fe saturation, low end TIBC, likely combination Fe deficiency/AOCD, pending vitamin B12 and folic acid, add Fe supplementation in interim. (8) GERD: PPI. (9) Severe-Moderate Protein-Calorie Malnutrition: Evidenced per habitus despite noted BMI near 30, evidence muscle and fat wasting, nutrition consulted, supplementations. (10) DVT Prophylaxis: SCDs, continue Eliquis. (11) CODE status: Discussed CODE status at length including difference between FULL code, DNR-CCA and DNR-CC status. Patient notes that his son who lives in [place] is his healthcare power of prosecuting attorney and he does have a living will in place. Following discussions requested full code status. Advanced Care Planning Face to Face Time: 18 minutes. Code Visit Inpatient E&M: 69561 Subs Hosp L3 Procedures: 84903 Advncd Care Plan 30 Min
--- NOTE | 2017-09-19 07:38 | CON.PCM_ITS ---
Problem List (1) BPH with urinary obstruction Status: Acute (2) Urinary retention Status: Acute Reason for Consult Date of Consultation: 09/19/17 Reason for Consultation: Urinary retention and bilateral hydronephrosis History of Present Illness: The patient is a 76 year old male with multiple medical problems presented to the emergency room with retention of urine and an elevated creatinine, CAT scan was done that demonstrated a very large prostate with obstruction, PSA was elevated but in the face of her recent obstruction and catheter could be falsely elevated, exam of the prostate was benign just a very large prostate nice and smooth. He has multiple medical problems including cardiac disease and had a aortic valve replacement in the past. Denies any chest pain does state he has some shortness of breath with activity. Past Medical History Past Medical History (Chronic Problems): Chronic Problems Hypertension (Chronic) Diabetes mellitus type 2 in nonobese (Chronic) Allergies albuterol Allergy (Verified 09/18/17 11:04) Unknown clonazepam Allergy (Verified 09/18/17 11:04) Unknown ibuprofen Allergy (Verified 09/18/17 11:04) Unknown ipratropium Allergy (Verified 09/18/17 11:04) Unknown aspirin Adverse Reaction (Verified 09/18/17 11:04) Vomiting pt states he vomits blood Home Medications: Ambulatory Orders Medication Instructions Recorded ALPRAZolam [Xanax] 0.5 mg PO 10/24/15 Ascorbic Acid [Vitamin C] 1,000 mg PO DAILY 10/24/15 Fosinopril Sodium [Monopril] 10 mg PO DAILY 10/24/15 Garlic 1 mg PO DAILY 10/24/15 Metformin HCl [Glucophage] 1,000 mg PO BIDCM 10/24/15 Multivitamin [Daily Multiple 1 each PO DAILY 10/24/15 Vitamin] [place]-3 Fatty Acids/Fish Oil 1 each PO DAILY 10/24/15 [[place] 3 1,000 mg Softgel] Simvastatin [Zocor] 20 mg PO QHS 10/24/15 Vitamin B Complex 1 each PO DAILY 10/24/15 Vitamin E 1,000 unit PO DAILY 10/24/15 Metoprolol Tartrate [Lopressor 50 mg PO BID #60 tablet 10/25/15 (beta lisa)] Apixaban [Eliquis] 5 mg PO BID 07/08/17 Acetaminophen [Tylenol Extra 500 mg PO Q6H PRN PRN 09/18/17 Strength] Curamin 3 tab PO QHS 09/18/17 Cyanocobalamin (Vitamin B-12) 5,000 mcg SL BID 09/18/17 [Vitamin B-12] Gabriella Extract [Gabriella] 1,000 mg PO BID 09/18/17 Methylsulfonylmethane [MSM] 1,500 mg PO TID 09/18/17 Niacinamide 500 mg PO DAILY 09/18/17 Pyridoxine HCl [Vitamin B-6] 100 mg PO DAILY 09/18/17 Sodium Chloride 1 gm PO DAILY 09/18/17 Ubidecarenone [Co Q-10] 200 mg PO DAILY 09/18/17 Vanadyl Sulfate 10 mg PO DAILY 09/18/17 Surgical History: - - Heart valve replacement Psychiatric History: No pertinent psych hx Lives: Alone Smoking Status: Never smoker Tobacco Use: Secondhand Alcohol: None Drugs: None - *Family History Sibling History Items: Heart Disease Review of Systems Constitutional: Denies: Chills, Fever, Weight Change HEENT: Denies: Head Aches, Sinus Congestion, Sinus Drainage Cardiovascular: Denies: Chest Pain, Palpitations Respiratory: Reports: Shortness of Breath Gastrointestinal: Denies: Abdominal Pain, Nausea, Vomiting Genitourinary: Denies: Dysuria Musculoskeletal: Denies: Joint Pain, Joint Tenderness Skin: Denies: Rash, Wounds Neurological: Denies: Numbness, Tingling, Focal weakness Psychiatric: Denies: Anxiety, Depression, Homicidal Ideations, Suicidal Ideations Hematologic/ Lymphatic: Denies: Easy Bruising, Easy Bleeding Physical Exam - Physical Exam Vital Signs Temp 98.4 F 09/19/17 03:50 Pulse 82 09/19/17 03:53 Resp 16 09/19/17 03:50 BP 124/72 H 09/19/17 03:50 Pulse Ox 96 09/19/17 03:50 Intake & Output 09/17/17 09/18/17 09/19/17 23:59 23:59 23:59 Intake Total 1374 / 1374 987 / 987 Output Total 1000 / 3500 1000 / 1000 Balance 374 / -2125 -13 / -13 Intake: Oral 520 / 520 100 / 100 IV fluid/meds 854 / 854 887 / 887 Output: Urine 1000 / 3500 1000 / 1000 General: Alert, Oriented x3 HEENT: Atraumatic Oral: Moist Mucosa Neck: Supple Lungs: Normal air movement Cardiovascular: Regular rate Abdomen: Bowel Sounds Present, Soft, Obese Prostate: 80gm Testicle: Right Normal, Left Normal Epididymis: Right Normal, Left Normal Penis: - - Sheffield in place Groin: No hernia Extremities: No clubbing, No cyanosis, No edema Lymphatic: No Cervical, Supraclavicular, or Inguinal Adenopathy Neurological: Cranial nerves II-XII grossly intact Laboratory Tests Past 24 Hrs 09/19/17 09/19/17 05:40 05:40 WBC 9.6 RBC 3.23 L Hgb 10.4 L Hct 31.2 L MCV 96.6 H MCH 32.2 H MCHC 33.3 RDW 12.8 RDW Differential 43.4 Plt Count 242 MPV 10.8 Immature Gran % (Auto) 0.200 Neut % (Auto) 72.6 H Lymph % (Auto) 16.0 L [place] % (Auto) 10.4 H Eos % (Auto) 0.6 Baso % (Auto) 0.2 Absolute Neuts (auto) 6.9 Absolute Lymphs (auto) 1.53 Total Counted Not Reportable Sodium 145 Potassium 4.2 Chloride 115 H Carbon Dioxide 22.0 Anion Gap 8 BUN 35 H Creatinine 2.04 H Estim Creat Clear Calc 28.35 Est GFR (MDRD) Af Amer 41 L Est GFR (MDRD) Non-Af 34 L BUN/Creatinine Ratio 17.2 Glucose 167 H Calcium 7.6 L Iron 47 L TIBC 206 L Iron Saturation 22.8 Ferritin 192 Assessment/Plan All Active Problems Acute renal failure (Acute) H/O heart valve replacement with bioprosthetic valve (Acute) BPH with urinary obstruction (Acute) Urinary retention (Acute) Aortic stenosis (Acute) Atrial fibrillation with rapid ventricular response (Acute) 76-year-old male presents to the hospital with bilateral hydronephrosis Sheffield catheter is in place explained to the patient he is in any prostate surgery to alleviate obstruction. He will need to go home with a Sheffield catheter. He is going to need cardiac evaluation and clearance before surgery because of his comorbidities and multiple medical problems if this could be accomplished while he is in the hospital that would facilitate his overall care and expedition to get in the surgery. For now enough to hold off on a TURP until he gets cardiac clearance and cardiac evaluation. Typically he gets his cardiac care up in [place] at the [facility] so we could have this accomplished here locally that would expedite his care I would appreciate it. Otherwise please let me know if there is any questions or concerns from my standpoint he can go home with a catheter all have my office call him to get him set up for surgery for a TURP as an outpatient once he is clinically stable and cardiac is clear. Please call with questions
--- NOTE | 2017-09-19 07:46 | ECHOD_ITS ---
Reason For Study: Arrhythmia Procedure This was a 2D Doppler, Color Flow transthoracic echocardiogram. Patient intermittently in A. fib during exam. Exam performed portable in patient room. Left Ventricle Normal LV size. Left ventricular systolic function is normal. The estimated ejection fraction is 60 %. Transmitral diastolic flow velocities suggest severe (stage 3) diastolic dysfunction. No regional wall motion abnormalities noted. Right Ventricle Normal RV size. Normal systolic function. Atria The left atrium is mildly enlarged. Normal right atrium. Mitral Valve Normal mitral valve. Tricuspid Valve Normal tricuspid valve. Mild (1+) tricuspid valve insufficiency. Pulmonary artery systolic pressure is 34 mmHg. Aortic Valve Peak aortic valve gradient 22 mmHg. Mean aortic valve gradient 11 mmHg. Bioprosthetic aortic valve. Pulmonic Valve Normal pulmonic valve. Great Vessels Normal aortic root. The pulmonary artery is normal size. Normal inferior vena cava. Pericardium/Pleural No pericardial effusion. MMode/2D Measurements & Calculations LVIDd: 4.5 cm IVSd: 1.0 cm LVOT diam: 2.2 cm LVIDs: 2.8 cm LVPWd: 0.88 cm LVOT area: 3.8 cm2 RVDd: 3.8 cm FS: 37.7 % Ao root diam: 3.6 cm LAV(MOD-bp): 73.4 ml LA A4 area: 23.8 cm2 LA dimension: 3.8 cm LAV(MOD-bp) Indexed: 37.2 ml/m2 LAV(MOD-sp2): 66.1 ml LAV(MOD-sp4): 70.7 ml RA A4 area: 17.8 cm2 Doppler Measurements & Calculations MV E max juan manuel: 122.0 cm/sec Lat Peak E' Juan Manuel: 9.3 cm/sec Med Peak E' Juan Manuel: 7.4 cm/sec MV A max juan manuel: 91.9 cm/sec E/E' lat: 13.1 E/E' med: 16.6 MV E/A: 1.3 Ao V2 max: 234.4 cm/sec LV V1 max: 154.3 cm/sec SV(LVOT): 127.5 ml Ao max P.0 mmHg LV V1 max P.5 mmHg Ao V2 mean: 159.7 cm/sec LV V1 mean P.5 mmHg Ao mean P.4 mmHg LV V1 mean: 112.0 cm/sec Ao V2 VTI: 46.5 cm LV V1 VTI: 33.6 cm ESTUARDO(I,D): 2.7 cm2 ESTUARDO(V,D): 2.5 cm2 PA V2 max: 103.7 cm/sec TR max juan manuel: 279.6 cm/sec TR max P.3 mmHg Interpretation Summary Normal LV size. Left ventricular systolic function is normal. The estimated ejection fraction is 60 %. Transmitral diastolic flow velocities suggest severe (stage 3) diastolic dysfunction Bioprosthetic aortic valve. Ordering Physician: Rosalia Laws Referring Physician: Kyleigh Castillo Performed By: Georgina Skinner RDCS
--- NOTE | 2017-09-19 07:54 | PN_ITS ---
Patient Problems: Active and Suspected Problems Acute renal failure (Acute) H/O heart valve replacement with bioprosthetic valve (Acute) BPH with urinary obstruction (Acute) Urinary retention (Acute) Subjective: Patient with improvement since admission status post Crump placement with decent output, mild hematuria with evaluation this morning per Dr. Alvarado w/ planned outpatient evaluation and set up for urological intervention for bladder mass. Patient states that his lower back discomfort and suprapubic discomfort have improved since admission but still he does have this intermittently. Discussed plan of care which includes echocardiogram today and discharge once creatinine decreased felt appropriate, possibly today pending nephrology evaluation with outpatient cardiology evaluation and clearance prior to follow-up with Dr. Escalante for arrangement of urological intervention. Patient denies fevers, chills, nausea, emesis, abdominal pain, chest pain or dyspnea. Objective: Physical Examination: General: awake, alert, oriented x 3 and cooperative, seated upright in bed in no apparent distress. Skin: normal color, turgor, no icterus, cyanosis except occasional extremity very staged ecchymoses. HEENT: AT/NC, EOMI, PERRLA, MMM. Lungs: Diminished breath sounds bases, moderate effort, no rales, ronchi or wheezing. Heart: Regular rate and rhythm; no gallop, rub audible, SM, s/p AVR. Abdomen: soft, thin/cachectic appearance, minimal suprapubic TTP, ND, normal BS , curmp in place. Extremities: no cyanosis, clubbing, or edema. Neurological: patient awake, alert, oriented x 3; cognitive function intact; pupils equally reactive to light and accomodation; cranial nerves II-XII grossly normal, moving all 4 extremities, no focal deficits, strength moderately to severely globally decreased. Psychiatric: affect appears normal, no acute evidence of depressive or anxiety feelings. Vitals/I&O's: Vital Signs Temp Pulse Resp BP Pulse Ox 98.4 F 82 16 124/72 H 96 09/19/17 03:50 09/19/17 03:53 09/19/17 03:50 09/19/17 03:50 09/19/17 03:50 Oxygen Delivery Method Room Air Intake and Output for Last 24 Hours 09/17/17 09/18/17 09/19/17 23:59 23:59 23:59 Intake Total 1374 / 1374 987 / 987 Output Total 1000 / 3500 1000 / 1000 Balance 374 / -2126 -13 / -13 Laboratory Results 09/18/17 17:46: POC Glucose 124 H 09/18/17 21:50: POC Glucose 160 H 09/19/17 05:40: WBC 9.6, RBC 3.23 L, Hgb 10.4 L, Hct 31.2 L, MCV 96.6 H, MCH 32.2 H, MCHC 33.3, RDW 12.8, RDW Differential 43.4, Plt Count 242, MPV 10.8, Immature Gran % (Auto) 0.200, Neut % (Auto) 72.6 H, Lymph % (Auto) 16.0 L, [place] % (Auto) 10.4 H, Eos % (Auto) 0.6, Baso % (Auto) 0.2, Absolute Neuts (auto) 6.9 , Absolute Lymphs (auto) 1.53, Total Counted Not Reportable 09/19/17 05:40: Sodium 145, Potassium 4.2, Chloride 115 H, Carbon Dioxide 22.0, Anion Gap 8, BUN 35 H, Creatinine 2.04 H, Estim Creat Clear Calc 28.35, Est GFR (MDRD) Af Amer 41 L, Est GFR (MDRD) Non-Af 34 L, BUN/Creatinine Ratio 17.2, Glucose 167 H, Calcium 7.6 L, Iron 47 L, TIBC 206 L, Iron Saturation 22.8, Ferritin 192 09/19/17 06:33: POC Glucose 157 H Current Medications Acetaminophen (Tylenol) 650 mg PO Q6H PRN PRN PRN Reason: Mild Pain (1-3)/Temp > 100.7 F Last Admin: 09/19/17 03:54 Dose: 650 mg Al Hydroxide/Mg Hydroxide (Mylanta Ii) 30 ml PO Q6H PRN PRN PRN Reason: Gastric burning Apixaban (Eliquis) 5 mg PO BID [facility] Last Admin: 09/18/17 21:48 Dose: 5 mg Ascorbic Acid (Vitamin C) 1,000 mg PO DAILY@0800 [facility] Atorvastatin Calcium (Lipitor) 10 mg PO QHS [facility] Last Admin: 09/18/17 21:48 Dose: 10 mg Cyanocobalamin (Vitamin B12) 1,000 mcg PO DAILY@0800 [facility] Dextrose (D50w Syringe) 0 gm IV X1 PRN; Protocol PRN Reason: Hypoglycemia Glucagon () 1 mg IM .X1 PRN PRN Reason: Hypoglycemia Dextrose/Sodium Chloride () 1,000 mls @ 150 mls/hr IV .Q6H40M [facility] Last Admin: 09/19/17 03:54 Dose: 150 mls/hr Insulin Human Lispro (Humalog Kwikpen (Bkc)) 0 unit SQ ACHS GABRIELLE PRN Reason: Protocol Last Admin: 09/19/17 06:35 Dose: 1 units Magnesium Hydroxide (Milk Of Magnesia) 30 ml PO DAILY PRN PRN PRN Reason: Constipation Metoprolol Tartrate (Lopressor (Beta Lisa)) 50 mg PO BID [facility] Last Admin: 09/18/17 21:48 Dose: 50 mg Nutritional Formula (Lactose Free) (Glucerna Shake) 120 ml PO 4X/DAY [facility] Last Admin: 09/18/17 22:45 Dose: 120 ml Ondansetron HCl (Zofran) 4 mg IV Q8H PRN PRN PRN Reason: NAUSEA Oxycodone HCl (Oxyir) 5 - 10 mg PO Q4H PRN PRN PRN Reason: MOD-SEVERE PAIN (4-10/10) Pantoprazole Sodium (Protonix) 20 mg PO DAILY [facility] Pyridoxine HCl (Vitamin B-6) 100 mg PO DAILY [facility] Sodium Chloride () 5 - 30 ml IV UD PRN PRN Reason: SALINE FLUSH Zolpidem Tartrate (Ambien (Generic)) 5 mg PO QHS PRN PRN PRN Reason: INSOMNIA Medical Necessity - Tobacco Use Smoking Status: Never smoker Tobacco Use: Secondhand Assessment/Plan All Active Problems Acute renal failure (Acute) H/O heart valve replacement with bioprosthetic valve (Acute) BPH with urinary obstruction (Acute) Urinary retention (Acute) Aortic stenosis (Acute) Atrial fibrillation with rapid ventricular response (Acute) The patient is a 76 y/o M w/ PMHx: Valvular Heart Disease w/ History of Bioprosthetic AVR, PAF, HTN, HLD, Diabetes mellitus type II who presents to [facility] 09[facility] w/ onset low back discomfort worsening over the last several days with difficulty with urination including hesitation, incomplete emptying and dribbling with recent [facility] evaluation with PSA 34 with planned urology evaluation in the future. (1) Acute kidney injury secondary to BL Hydronephrosis and Hydroureter secondary to Mass Lesion at the Bladder Base causing Obstruction: Admission BUN/ Cr 46/3.47, prior baseline creatinine noted to be normal range, 09/19/17 BUN/Cr 35/2.04, Urology evaluation performed, crump placed with improving function as noted, Nephrology consulted and pending, will plan once improvement Cr per their discretion appropriate discharge to home w/ crump in place, planned Cardiology evaluation for clearance and then follow-up with Dr. Alvarado for operative intervention. UA not marked, no evidence UTI thus per discussion with Dr. Alvarado, defer abx therapy. Will add PT, OT, case management for discharge planning especially given patient lives alone and is debilitated. (2) PAF: Discussion w/ Urology s/p evaluation this AM, no planned intervention this admission, will plan discharge to home w/ outpatient follow-up with his Manager Language for clearance (Dr. Glasgow) with then follow-up in the office with Dr. Alvarado, continue Eliquis, continue metoprolol. ECHO ordered prior to discharge secondary to last noted 2015, although also [facility]. (3) Valvular Heart Disease: History of Bioprosthetic AVR, ECHO pending, on eliquis. (4) Diabetes mellitus type II: Hold oral home regimen, continue home insulin regimen, ADA diet, accu checks w/ ISS. HgbA1c pending, nutrition consultation for diet education and teaching to improve operative outcomes. (5) Hyperlipidemia: Continue home statin regimen. (6) Hypertension: Continue home regimen including metoprolol, PRN hydralazine. (7) Macrocytic Anemia: Admission Hgb 12.1, Fe panel w/ low Fe saturation, low end TIBC, likely combination Fe deficiency/AOCD, pending vitamin B12 and folic acid, add Fe supplementation in interim. (8) GERD: PPI. (9) Severe-Moderate Protein-Calorie Malnutrition: Evidenced per habitus despite noted BMI near 30, evidence muscle and fat wasting, nutrition consulted, supplementations. (10) DVT Prophylaxis: SCDs, continue Eliquis. (11) CODE status: Discussed CODE status at length including difference between FULL code, DNR-CCA and DNR-CC status. Patient notes that his son who lives in [place] is his healthcare power of family law attorney and he does have a living will in place. Following discussions requested full code status. Advanced Care Planning Face to Face Time: 18 minutes. Code Visit Inpatient E&M: 66240 Subs Hosp L3 Procedures: 19625 Advncd Care Plan 30 Min
[2017-09-19] MEDS: APIXABAN 2.5 MG TABLET PO ×2 (08:11→22:53)
[2017-09-19] MEDS: Metoprolol Tartrate 50 MG Tablet PO ×2 (08:11→22:53)
[2017-09-19] MEDS: Pantoprazole Sodium 20 MG Tablet PO (08:12)
--- NOTE | 2017-09-19 08:15 | NURSING ---
WAITING ON MULTIPLE MEDICATIONS TO ARRIVE FROM PHARMACY.
[2017-09-19 08:49] LABS: Hemoglobin A1c 6.2 % (4.2-6.3)
[2017-09-19 09:26] LABS: Magnesium 1.8 mg/dL (1.6-2.6)
--- NOTE | 2017-09-19 10:00 | PCM.CONS.R ---
Consultation - Renal 09/19/17 PCP/ Referring MD: Requesting physician: [] Primary care physician: Kyleigh Castillo Reason for Consultation:: JUAN JOSE - History of Present Illness History of Present Illness: Patient is a 76 yo WM who presents to ER on 09/18 with low back pain past few days. He had trouble with urine flow, hesitancy, dribbling, suprapubic pain. He denied hematuria, dysuria. He was in acute renal failure with creatinine at 3.47, potassium elevated at 5.1. Creatinine improved to 2.0 today after crump catheter insertion. He had 1.4 liter urine drained immediately. 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 Urology consulted who recommended crump catheter on discharge to home. His back pain improved. He continues to have blood tinged urine. Denied nausea, vomiting, shortness of breath, chest pain. Denied edema. He has a history of atrial fibrillation on anticoagulation, AVR in October 2016. He lives alone with son in [place] who visits occasionally. He has long standing diabetes without complications. Last creatinine 0.9 in 2016 in [place] records. - Allergies Allergies: Allergies albuterol Allergy (Verified 09/18/17 11:04) Unknown clonazepam Allergy (Verified 09/18/17 11:04) Unknown ibuprofen Allergy (Verified 09/18/17 11:04) Unknown ipratropium Allergy (Verified 09/18/17 11:04) Unknown aspirin Adverse Reaction (Verified 09/18/17 11:04) Vomiting pt states he vomits blood - Current Medications Current Medications: Current Medications Acetaminophen (Tylenol) 650 mg PO Q6H PRN PRN PRN Reason: Mild Pain (1-3)/Temp > 100.7 F Last Admin: 09/19/17 03:54 Dose: 650 mg Al Hydroxide/Mg Hydroxide (Mylanta Ii) 30 ml PO Q6H PRN PRN PRN Reason: Gastric burning Apixaban (Eliquis) 2.5 mg PO BID [facility] Last Admin: 09/19/17 08:11 Dose: 2.5 mg Ascorbic Acid (Vitamin C) 1,000 mg PO DAILY@0800 [facility] Atorvastatin Calcium (Lipitor) 10 mg PO QHS [facility] Last Admin: 09/18/17 21:48 Dose: 10 mg Cyanocobalamin (Vitamin B12) 1,000 mcg PO DAILY@0800 [facility] Dextrose (D50w Syringe) 0 gm IV X1 PRN; Protocol PRN Reason: Hypoglycemia Ferrous [facility]con[facility] Glucagon () 1 mg IM .X1 PRN PRN Reason: Hypoglycemia Dextrose/Sodium Chloride () 1,000 mls @ 150 mls/hr IV .Q6H40M [facility] Last Admin: 09/19/17 03:54 Dose: 150 mls/hr Insulin Human Lispro (Humalog Kwikpen (Bkc)) 0 unit SQ ACHS [facility] PRN Reason: Protocol Last Admin: 09/19/17 06:35 Dose: 1 units Magnesium Hydroxide (Milk Of Magnesia) 30 ml PO DAILY PRN PRN PRN Reason: Constipation Metoprolol Tartrate (Lopressor (Beta Lisa)) 50 mg PO BID [facility] Last Admin: 09/19/17 08:11 Dose: 50 mg Multivitamins/Minerals (Multivitamin With Minerals) [facility] Nutritional Formula (Lactose Free) (Glucerna Shake) 120 ml PO 4X/DAY [facility] Last Admin: 09/18/17 22:45 Dose: 120 ml Ondansetron HCl (Zofran) 4 mg IV Q8H PRN PRN PRN Reason: NAUSEA Oxycodone HCl (Oxyir) 5 - 10 mg PO Q4H PRN PRN PRN Reason: MOD-SEVERE PAIN (4-10/10) Pantoprazole Sodium (Protonix) 20 mg PO DAILY [facility] Last Admin: 09/19/17 08:12 Dose: 20 mg Pyridoxine HCl (Vitamin B-6) 100 mg PO DAILY [facility] Sodium Chloride () 5 - 30 ml IV UD PRN PRN Reason: SALINE FLUSH Zolpidem Tartrate (Ambien (Generic)) 5 mg PO QHS PRN PRN PRN Reason: INSOMNIA - Past Medical History Past Medical History (Chronic Problems): Chronic Problems Hypertension (Chronic) Diabetes mellitus type 2 in nonobese (Chronic) - Past Surgical History Surgical History: cataract - bilateral, - - aortic valve replacement October 2016, 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 Denies: Anorexia, Chills, Fever, Weight Change Eyes: Denies: Blurred vision HEENT: Denies: Head Aches Cardiovascular: Reports: - - AVR. Denies: Chest Pain, Edema, Light Headedness Respiratory: Denies: Cough, Shortness of breath upon exertion Gastrointestinal: Reports: Abdominal Pain - suprapubic pain, Diarrhea - x2 days. Denies: Nausea, Vomiting Genitourinary: Reports: Hesitancy, Retention. Denies: Dysuria, Hematuria Musculoskeletal: Reports: - - no leg swelling. Denies: Arm Pain Skin: Denies: Rash Neurological: Reports: Tremor - chronic. Denies: Incoordination, Numbness, Seizures Psychiatric: Denies: Anxiety, Depression Hematologic/ Lymphatic: Denies: Anemia, Hx of blood clot Patient Problems: Active and Suspected Problems Acute renal failure (Acute) H/O heart valve replacement with bioprosthetic valve (Acute) BPH with urinary obstruction (Acute) Urinary retention (Acute) - Physical Exam General: Alert, Oriented x3, Cooperative, No apparent distress HEENT: PERRLA, EOMI Neck: Supple, No JVD Lungs: Clear to auscultation Cardiovascular: Irregular Rate Abdomen: Bowel Sounds Present, Soft, Non Tender, Non-Distended Extremities: No edema Skin: No rashes Musculoskeletal: Cachexia Lymphatic: No Cervical, Supraclavicular, or Inguinal Adenopathy Neurological: Cranial nerves II-XII grossly intact, - - chronic intentional tremor Psych/Mental Status: Appropriate, Alert and oriented to time, place, person, mood and affect Vital Signs Temp Pulse Resp BP Pulse Ox 98.0 F 90 14 123/62 H 96 09/19/17 07:50 09/19/17 08:11 09/19/17 07:50 09/19/17 07:50 09/19/17 07:50 Oxygen Delivery Method Room Air Intake and Output for Last 24 Hours 09/17/17 09/18/17 09/19/17 23:59 23:59 23:59 Intake Total 1374 / 1374 987 / 987 Output Total 1000 / 3500 1000 / 1000 Balance 374 / -2126 -13 / -13 Laboratory Tests Past 24 Hrs 09/19/17 09/19/17 09/19/17 05:40 05:40 05:40 WBC 9.6 RBC 3.23 L Hgb 10.4 L Hct 31.2 L MCV 96.6 H MCH 32.2 H MCHC 33.3 RDW 12.8 RDW Differential 43.4 Plt Count 242 MPV 10.8 Immature Gran % (Auto) 0.200 Neut % (Auto) 72.6 H Lymph % (Auto) 16.0 L [place] % (Auto) 10.4 H Eos % (Auto) 0.6 Baso % (Auto) 0.2 Absolute Neuts (auto) 6.9 Absolute Lymphs (auto) 1.53 Total Counted Not Reportable Sodium 145 Potassium 4.2 Chloride 115 H Carbon Dioxide 22.0 Anion Gap 8 BUN 35 H Creatinine 2.04 H Estim Creat Clear Calc 28.35 Est GFR (MDRD) Af Amer 41 L Est GFR (MDRD) Non-Af 34 L BUN/Creatinine Ratio 17.2 Glucose 167 H Hemoglobin A1c Calcium 7.6 L Magnesium Iron 47 L TIBC 206 L Iron Saturation 22.8 Ferritin 192 Vitamin B12 Pending Folate 09/19/17 09/19/17 05:40 05:40 WBC RBC Hgb Hct MCV MCH MCHC RDW RDW Differential Plt Count MPV Immature Gran % (Auto) Neut % (Auto) Lymph % (Auto) [place] % (Auto) Eos % (Auto) Baso % (Auto) Absolute Neuts (auto) Absolute Lymphs (auto) Total Counted Sodium Potassium Chloride Carbon Dioxide Anion Gap BUN Creatinine Estim Creat Clear Calc Est GFR (MDRD) Af Amer Est GFR (MDRD) Non-Af BUN/Creatinine Ratio Glucose Hemoglobin A1c 6.2 Calcium Magnesium 1.8 Iron TIBC Iron Saturation Ferritin Vitamin B12 Folate 21.90 POC Glucose 09/19/17 09/18/17 09/18/17 06:33 21:50 17:46 POC Glucose 157 H 160 H 124 H Clinical Impression(s) from Imaging Studies Abdomen/Pelvis CT 09/18/17 11:17 IMPRESSION: Bilateral hydronephrosis and hydroureter most likely secondary to the mass seen at the base of the bladder worse on the right side. Sigmoid diverticulosis. Atherosclerotic plaque formation of the abdominal aorta and origin of the major visceral branches. Electronically Signed: Javier Unger MD at 14:52 EDT Tel [phone], Service support , Assessment/Plan All Active Problems Acute renal failure (Acute) H/O heart valve replacement with bioprosthetic valve (Acute) BPH with urinary obstruction (Acute) Urinary retention (Acute) Aortic stenosis (Acute) Atrial fibrillation with rapid ventricular response (Acute) 1. JUAN JOSE due to ATN, obstructive nephropathy. Creatinine 3.47 improved to 2.04 today. Baseline creatinine 0.9 in 2016. Continue with crump to CD. No dialysis needed. He should follow up in office in 2-4 wks with labs 2. Hyperkalemia stable 3. DM2 primary mgmt 4. BPH with LUTS. following. Await urine c/s 5. AVR, atrial fibrillation. 6. HTN stable Thank you
--- NOTE | 2017-09-19 10:10 | CON.PCM_ITS ---
Consultation - Renal 09/19/17 PCP/ Referring MD: Requesting physician: [] Primary care physician: Kyleigh Castillo Reason for Consultation:: JUAN JOSE - History of Present Illness History of Present Illness: Patient is a 76 yo WM who presents to ER on 09/18 with low back pain past few days. He had trouble with urine flow, hesitancy, dribbling, suprapubic pain. He denied hematuria, dysuria. He was in acute renal failure with creatinine at 3.47, potassium elevated at 5.1. Creatinine improved to 2.0 today after crump catheter insertion. He had 1.4 liter urine drained immediately. CT of abd/ pelvis revealed that he has bilateral hydronephrosis and hydroureter, and mass lesion at the base of the bladder. Urology consulted who recommended crump catheter on discharge to home. His back pain improved. He continues to have blood tinged urine. Denied nausea, vomiting, shortness of breath, chest pain. Denied edema. He has a history of atrial fibrillation on anticoagulation, AVR in October 2016. He lives alone with son in [place] who visits occasionally. He has long standing diabetes without complications. Last creatinine 0.9 in 2016 in [place] records. - Allergies Allergies: Allergies albuterol Allergy (Verified 09/18/17 11:04) Unknown clonazepam Allergy (Verified 09/18/17 11:04) Unknown ibuprofen Allergy (Verified 09/18/17 11:04) Unknown ipratropium Allergy (Verified 09/18/17 11:04) Unknown aspirin Adverse Reaction (Verified 09/18/17 11:04) Vomiting pt states he vomits blood - Current Medications Current Medications: Current Medications Acetaminophen (Tylenol) 650 mg PO Q6H PRN PRN PRN Reason: Mild Pain (1-3)/Temp > 100.7 F Last Admin: 09/19/17 03:54 Dose: 650 mg Al Hydroxide/Mg Hydroxide (Mylanta Ii) 30 ml PO Q6H PRN PRN PRN Reason: Gastric burning Apixaban (Eliquis) 2.5 mg PO BID [facility] Last Admin: 09/19/17 08:11 Dose: 2.5 mg Ascorbic Acid (Vitamin C) 1,000 mg PO DAILY@0800 [facility] Atorvastatin Calcium (Lipitor) 10 mg PO QHS [facility] Last Admin: 09/18/17 21:48 Dose: 10 mg Cyanocobalamin (Vitamin B12) 1,000 mcg PO DAILY@0800 [facility] Dextrose (D50w Syringe) 0 gm IV X1 PRN; Protocol PRN Reason: Hypoglycemia Ferrous [facility]con[facility] ([facility]) [facility]ucagon () 1 mg IM .X1 PRN PRN Reason: Hypoglycemia Dextrose/Sodium Chloride () 1,000 mls @ 150 mls/hr IV .Q6H40M [facility] Last Admin: 09/19/17 03:54 Dose: 150 mls/hr Insulin Human Lispro (Humalog Kwikpen (Bkc)) 0 unit SQ ACHS [facility] PRN Reason: Protocol Last Admin: 09/19/17 06:35 Dose: 1 units Magnesium Hydroxide (Milk Of Magnesia) 30 ml PO DAILY PRN PRN PRN Reason: Constipation Metoprolol Tartrate (Lopressor (Beta Lisa)) 50 mg PO BID [facility] Last Admin: 09/19/17 08:11 Dose: 50 mg Multivitamins/Minerals (Multivitamin With Minerals) [facility] Nutritional Formula (Lactose Free) (Glucerna Shake) 120 ml PO 4X/DAY [facility] Last Admin: 09/18/17 22:45 Dose: 120 ml Ondansetron HCl (Zofran) 4 mg IV Q8H PRN PRN PRN Reason: NAUSEA Oxycodone HCl (Oxyir) 5 - 10 mg PO Q4H PRN PRN PRN Reason: MOD-SEVERE PAIN (4-10/10) Pantoprazole Sodium (Protonix) 20 mg PO DAILY [facility] Last Admin: 09/19/17 08:12 Dose: 20 mg Pyridoxine HCl (Vitamin B-6) 100 mg PO DAILY [facility] Sodium Chloride () 5 - 30 ml IV UD PRN PRN Reason: SALINE FLUSH Zolpidem Tartrate (Ambien (Generic)) 5 mg PO QHS PRN PRN PRN Reason: INSOMNIA - Past Medical History Past Medical History (Chronic Problems): Chronic Problems Hypertension (Chronic) Diabetes mellitus type 2 in nonobese (Chronic) - Past Surgical History Surgical History: cataract - bilateral, - - aortic valve replacement October 2016 , 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 Denies: Anorexia, Chills, Fever, Weight Change Eyes: Denies: Blurred vision HEENT: Denies: Head Aches Cardiovascular: Reports: - - AVR. Denies: Chest Pain, Edema, Light Headedness Respiratory: Denies: Cough, Shortness of breath upon exertion Gastrointestinal: Reports: Abdominal Pain - suprapubic pain, Diarrhea - x2 days. Denies: Nausea, Vomiting Genitourinary: Reports: Hesitancy, Retention. Denies: Dysuria, Hematuria Musculoskeletal: Reports: - - no leg swelling. Denies: Arm Pain Skin: Denies: Rash Neurological: Reports: Tremor - chronic. Denies: Incoordination, Numbness, Seizures Psychiatric: Denies: Anxiety, Depression Hematologic/ Lymphatic: Denies: Anemia, Hx of blood clot Patient Problems: Active and Suspected Problems Acute renal failure (Acute) H/O heart valve replacement with bioprosthetic valve (Acute) BPH with urinary obstruction (Acute) Urinary retention (Acute) - Physical Exam General: Alert, Oriented x3, Cooperative, No apparent distress HEENT: PERRLA, EOMI Neck: Supple, No JVD Lungs: Clear to auscultation Cardiovascular: Irregular Rate Abdomen: Bowel Sounds Present, Soft, Non Tender, Non-Distended Extremities: No edema Skin: No rashes Musculoskeletal: Cachexia Lymphatic: No Cervical, Supraclavicular, or Inguinal Adenopathy Neurological: Cranial nerves II-XII grossly intact, - - chronic intentional tremor Psych/Mental Status: Appropriate, Alert and oriented to time, place, person, mood and affect Vital Signs Temp Pulse Resp BP Pulse Ox 98.0 F 90 14 123/62 H 96 09/19/17 07:50 09/19/17 08:11 09/19/17 07:50 09/19/17 07:50 09/19/17 07:50 Oxygen Delivery Method Room Air Intake and Output for Last 24 Hours 09/17/17 09/18/17 09/19/17 23:59 23:59 23:59 Intake Total 1374 / 1374 987 / 987 Output Total 1000 / 3500 1000 / 1000 Balance 374 / -2126 -13 / -13 Laboratory Tests Past 24 Hrs 09/19/17 09/19/17 09/19/17 05:40 05:40 05:40 WBC 9.6 RBC 3.23 L Hgb 10.4 L Hct 31.2 L MCV 96.6 H MCH 32.2 H MCHC 33.3 RDW 12.8 RDW Differential 43.4 Plt Count 242 MPV 10.8 Immature Gran % (Auto) 0.200 Neut % (Auto) 72.6 H Lymph % (Auto) 16.0 L [place] % (Auto) 10.4 H Eos % (Auto) 0.6 Baso % (Auto) 0.2 Absolute Neuts (auto) 6.9 Absolute Lymphs (auto) 1.53 Total Counted Not Reportable Sodium 145 Potassium 4.2 Chloride 115 H Carbon Dioxide 22.0 Anion Gap 8 BUN 35 H Creatinine 2.04 H Estim Creat Clear Calc 28.35 Est GFR (MDRD) Af Amer 41 L Est GFR (MDRD) Non-Af 34 L BUN/Creatinine Ratio 17.2 Glucose 167 H Hemoglobin A1c Calcium 7.6 L Magnesium Iron 47 L TIBC 206 L Iron Saturation 22.8 Ferritin 192 Vitamin B12 Pending Folate 09/19/17 09/19/17 05:40 05:40 WBC RBC Hgb Hct MCV MCH MCHC RDW RDW Differential Plt Count MPV Immature Gran % (Auto) Neut % (Auto) Lymph % (Auto) [place] % (Auto) Eos % (Auto) Baso % (Auto) Absolute Neuts (auto) Absolute Lymphs (auto) Total Counted Sodium Potassium Chloride Carbon Dioxide Anion Gap BUN Creatinine Estim Creat Clear Calc Est GFR (MDRD) Af Amer Est GFR (MDRD) Non-Af BUN/Creatinine Ratio Glucose Hemoglobin A1c 6.2 Calcium Magnesium 1.8 Iron TIBC Iron Saturation Ferritin Vitamin B12 Folate 21.90 POC Glucose 09/19/17 09/18/17 09/18/17 06:33 21:50 17:46 POC Glucose 157 H 160 H 124 H Clinical Impression(s) from Imaging Studies Abdomen/Pelvis CT 09/18/17 11:17 IMPRESSION: Bilateral hydronephrosis and hydroureter most likely secondary to the mass seen at the base of the bladder worse on the right side. Sigmoid diverticulosis. Atherosclerotic plaque formation of the abdominal aorta and origin of the major visceral branches. Electronically Signed: Javier Unger MD at 14:52 EDT Tel [phone], Service support , Assessment/Plan All Active Problems Acute renal failure (Acute) H/O heart valve replacement with bioprosthetic valve (Acute) BPH with urinary obstruction (Acute) Urinary retention (Acute) Aortic stenosis (Acute) Atrial fibrillation with rapid ventricular response (Acute) 1. JUAN JOSE due to ATN, obstructive nephropathy. Creatinine 3.47 improved to 2.04 today. Baseline creatinine 0.9 in 2016. Continue with crump to CD. No dialysis needed. He should follow up in office in 2-4 wks with labs 2. Hyperkalemia stable 3. DM2 primary mgmt 4. BPH with LUTS. following. Await urine c/s 5. AVR, atrial fibrillation. 6. HTN stable Thank you
--- NOTE | 2017-09-19 10:28 | CASEMGMT ---
See SHLOMO LAGOS Assessment Link. DC PLAN: home -PT/OT evaluations pending. -Pt lives alone, has been caring for himself. States he is able to be independent, uses [employer]. -Discussed CCN with pt. Brochure given. Pt is not interested at this time, but did say he would consider. -Discussed MCR benefits for hospital stay @ [facility] vs transfer to [place]. Pt wishes to stay @ [facility] for treatment and is aware this would be paid under MCR benefits and may have deductible. Pt states he has [employer] BC/BS supplement which picks up his copays and deductibles. -SHLOMO LAGOS Reviewed Declination to transfer to [place] form. Signed and placed in chart. -Pt follows up with [facility]. Aditya NAIRN SHLOMO AC
--- NOTE | 2017-09-19 10:43 | NURSING ---
multiple am meds still not on unit. communication sent to pharmacy
[2017-09-19] MEDS: Multivitamins,Ther W-Minerals Tablet 1 TABLET PO (12:01)
[2017-09-19] MEDS: Ferrous Gluconate 325 MG Tablet PO ×2 (12:01→16:54)
[2017-09-19] MEDS: Pyridoxine HCl 50 MG Tablet 100 MG PO (12:02)
[2017-09-19] MEDS: Cyanocobalamin 500 MCG Tablet 1000 MCG PO (12:02)
[2017-09-19] MEDS: Ascorbic Acid 500 MG Tablet 1000 MG PO (12:02)
[2017-09-19 12:16] LABS: Bedside Glucose 166 mg/dL (70-110)
[2017-09-19] MEDS: Glucerna Shake 120 ML LIQUID PO ×2 (13:13→22:52)
[2017-09-19 16:01] LABS: Bedside Glucose 118 mg/dL (70-110)
--- NOTE | 2017-09-19 16:42 | CHAPLAIN ---
Type of Pastoral Visit ___ Initial Visit ___ Follow-up Visit ___ On-call Visit ___ General Patient Visit ___ Spiritual Assessment ___ Family Conference ___ Bereavement ___ Rapid Response ___ Code Blue ___ Other (describe below) Pastoral Care Referral From ___ Patient ___ Family ___ Nurse ___ Physician ___ Replanter ___ Insole And Outsole Splitter ___ Other (describe below) Sacrament/Intervention ___ Active listening ___ Anointing ___ Jainism ___ Bereavement ___ Communion ___ Sonal exploration ___ ___ Life review ___ Prayer ___ Reconciliation ___ Sacrament of Sick ___ Supportive presence ___ Wedding ___ Other (describe below) Pastoral Comments medical staff was working on patient at time of attempted visit
[2017-09-19] MEDS: Atorvastatin Calcium 10 MG Tablet PO (22:53)
[2017-09-19] MEDS: Zolpidem Tartrate 5 MG Tablet PO (22:56)
[2017-09-19 23:05] LABS: Bedside Glucose 142 mg/dL (70-110)
[2017-09-20 03:22] VITALS: BP 140/66; PULSE 88; RESP 16; TEMP 37; O2SAT 98
[2017-09-20 06:30] LABS: Absolute Lymphocyte Count 1.86 X10^3/ul (0.83-4.51); Absolute Neutrophil Count 4.7 X10^3/uL (2.0-7.7); Basophil# 0.02 X10^3/uL; Basophil% 0.3 % (0-1); Eosinophil# 0.16 X10^3/uL; Eosinophils% 2.1 % (0-5); Hematocrit 33.5 % (40-54); Hemoglobin 11.4 g/dl (13.0-16.5); Lymphocyte # 1.86 X10^3/ul (4.0); Lymphocyte % 24.8 % (19-41); Mean Corpuscular Hgb 32.4 pg (27.0-32.0); Mean Corpuscular Volume 95.2 fL (80-94); Mean Platelet Vol. 10.3 fl (6.2-12.0); Monocyte# 0.75 X10^3/uL; Neutrophil # 4.71 X10^3/uL (2.7-7.7); Neutrophil % 62.7 % (47-70); Platelet Count 249 K/mm3 (150-450); RBC Distribution Width CV 12.6 % (11.6-14.6); RBC Distribution Width SD 42.6 fl (35.1-43.9); Red Blood Count 3.52 M/mm3 (4.6-6.2); White Blood Count 7.5 K/mm3 (4.4-11.0)
[2017-09-20 06:34] LABS: POSITIVE COUNT NO; POSITIVE DIFFERENTIAL NO; POSITIVE MORPHOLOGY NO
[2017-09-20 06:39] LABS: Anion Gap 6 (5-15); BUN 20 mg/dL (7-18); BUN/Creat Ratio 15.3 RATIO (10-20); Calcium,Total 7.8 mg/dL (8.5-10.1); Chloride 114 mmol/L (98-107); Creatinine, Serum 1.31 mg/dL (0.70-1.30); EST Glomerular Filtration Rate 56 mL/min (>60); Est Glom Filt Rate - Afr Amer 68 mL/min (>60); Estimated Creatinine Clearance 44.15 ml/min; Glucose 150 mg/dL (74-106); Potassium 3.8 mmol/L (3.5-5.1); Sodium Level 142 mmol/L (136-145)
[2017-09-20] MEDS: Acetaminophen 325 MG Tablet 650 MG PO (06:46)
[2017-09-20] MEDS: Dext 5%-0.45% NS 1,000 ML 150 ML IV (06:46)
[2017-09-20 07:05] LABS: Bedside Glucose 134 mg/dL (70-110)
--- NOTE | 2017-09-20 07:29 | PCM.DC ---
- Discharge Diagnoses Current Active Problems: Current Active and Chronic Problems (1) Acute kidney injury secondary to ATN, Obstructive Nephropathy secondary to BL Hydronephrosis and Hydroureter secondary to Mass Lesion at the Bladder Base, Concurrent BPH (2) PAF (3) Valvular Heart Disease w/ History of Bioprosthetic AVR (4) Diabetes mellitus type II (5) Hyperlipidemia (6) Hypertension (7) Macrocytic Anemia (8) GERD (9) Severe-Moderate Protein-Calorie Malnutrition You will use the following diet at home:: Calorie/Carbohydrate Controlled (specify 1200, 1400, etc) - 1800, Cardiac Your food should be the consistency of: Regular Your liquids should be the consistency of: Regular/Thin Discharge Activity: - - Advise careful activity given now indwelling crump catheter pending re-evaluation per urology. May resume sexual activity in: - - Defer until cleared per Urology given concurrent crump catheter usage. Weight Bearing Status: Weight bearing as tolerated Call your doctor if you observe: Fever of 101 or Higher, Inability to urinate, Inability to have a bowel movement, Shortness of breath, Dizziness, Fainting spells, Chest pain, Uncontrolled pain Instructions: ED Catheter Care Crump, Discharge Instructions for Acute Kidney Injury Additional Instructions: Please maintain crump catheter, plan follow-up with Cardiology for clearance for operative intervention per Dr. Alvarado and additionally follow-up with Dr. Guzman, Nephrology. Allergies/Adverse Reactions: Allergies albuterol Allergy (Verified 09/18/17 11:04) Unknown clonazepam Allergy (Verified 09/18/17 11:04) Unknown ibuprofen Allergy (Verified 09/18/17 11:04) Unknown ipratropium Allergy (Verified 09/18/17 11:04) Unknown aspirin Adverse Reaction (Verified 09/18/17 11:04) Vomiting pt states he vomits blood Medications to take at Discharge ALPRAZolam [Xanax] 0.5 mg PO 10/24/15 Ascorbic Acid [Vitamin C] 1,000 mg PO DAILY 10/24/15 Fosinopril Sodium [Monopril] 10 mg PO DAILY 10/24/15 Garlic 1 mg PO DAILY 10/24/15 Metformin HCl [Glucophage] 1,000 mg PO BIDCM 10/24/15 Multivitamin [Daily Multiple Vitamin] 1 each PO DAILY 10/24/15 [place]-3 Fatty Acids/Fish Oil [[place] 3 1,000 mg Softgel] 1 each PO DAILY 10/24/15 Simvastatin [Zocor] 20 mg PO QHS 10/24/15 Vitamin B Complex 1 each PO DAILY 10/24/15 Vitamin E 1,000 unit PO DAILY 10/24/15 Metoprolol Tartrate [Lopressor (beta lisa)] 50 mg PO BID #60 tablet 10/25/15 Apixaban [Eliquis] 5 mg PO BID 07/08/17 Acetaminophen [Tylenol] 500 mg PO Q6H PRN PRN 09/18/17 Curamin 3 tab PO QHS 09/18/17 Cyanocobalamin (Vitamin B-12) [Vitamin B-12] 5,000 mcg SL BID 09/18/17 Gabriella Extract [Gabriella] 1,000 mg PO BID 09/18/17 Methylsulfonylmethane [MSM] 1,500 mg PO TID 09/18/17 Niacinamide 500 mg PO DAILY 09/18/17 Pyridoxine HCl [Vitamin B6] 100 mg PO DAILY 09/18/17 Sodium Chloride 1 gm PO DAILY 09/18/17 Ubidecarenone [Co Q-10] 200 mg PO DAILY 09/18/17 Vanadyl Sulfate 10 mg PO DAILY 09/18/17 Ferrous Gluconate 325 mg PO BIDCM tablet 09/20/17 Primary Care Physician: Kyleigh Castillo [Primary Care Provider] - Please follow up with your Primary Care Physician in: Follow-up within 3-5 days to review admission. Please Follow Up With: Lucas Glasgow MD When: Follow-up within 3-5 days for cardiac clearance evaluation, may see SENIOR HUMAN RESOURCES REPRESENTATIVE. Please Follow Up With: Dangelo Alvarado MD When: Follow-up within 1 week for operative set-up, re-evaluation. Please Follow Up With: Isa Guzman DO When: Follow-up 2-4 weeks. Proposed Discharge Date: 09/20/17
--- NOTE | 2017-09-20 07:36 | DCINST_ITS ---
- Discharge Diagnoses Current Active Problems: Current Active and Chronic Problems (1) Acute kidney injury secondary to ATN, Obstructive Nephropathy secondary to BL Hydronephrosis and Hydroureter secondary to Mass Lesion at the Bladder Base, Concurrent BPH (2) PAF (3) Valvular Heart Disease w/ History of Bioprosthetic AVR (4) Diabetes mellitus type II (5) Hyperlipidemia (6) Hypertension (7) Macrocytic Anemia (8) GERD (9) Severe-Moderate Protein-Calorie Malnutrition You will use the following diet at home:: Calorie/Carbohydrate Controlled ( specify 1200, 1400, etc) - 1800, Cardiac Your food should be the consistency of: Regular Your liquids should be the consistency of: Regular/Thin Discharge Activity: - - Advise careful activity given now indwelling crump catheter pending re-evaluation per urology. May resume sexual activity in: - - Defer until cleared per Urology given concurrent crump catheter usage. Weight Bearing Status: Weight bearing as tolerated Call your doctor if you observe: Fever of 101 or Higher, Inability to urinate, Inability to have a bowel movement, Shortness of breath, Dizziness, Fainting spells, Chest pain, Uncontrolled pain Instructions: ED Catheter Care Crump, Discharge Instructions for Acute Kidney Injury Additional Instructions: Please maintain crump catheter, plan follow-up with Cardiology for clearance for operative intervention per Dr. Alvarado and additionally follow-up with Dr. Guzman, Nephrology. Allergies/Adverse Reactions: Allergies albuterol Allergy (Verified 09/18/17 11:04) Unknown clonazepam Allergy (Verified 09/18/17 11:04) Unknown ibuprofen Allergy (Verified 09/18/17 11:04) Unknown ipratropium Allergy (Verified 09/18/17 11:04) Unknown aspirin Adverse Reaction (Verified 09/18/17 11:04) Vomiting pt states he vomits blood Medications to take at Discharge ALPRAZolam [Xanax] 0.5 mg PO 10/24/15 Ascorbic Acid [Vitamin C] 1,000 mg PO DAILY 10/24/15 Fosinopril Sodium [Monopril] 10 mg PO DAILY 10/24/15 Garlic 1 mg PO DAILY 10/24/15 Metformin HCl [Glucophage] 1,000 mg PO BIDCM 10/24/15 Multivitamin [Daily Multiple Vitamin] 1 each PO DAILY 10/24/15 [place]-3 Fatty Acids/Fish Oil [[place] 3 1,000 mg Softgel] 1 each PO DAILY Simvastatin [Zocor] 20 mg PO QHS 10/24/15 Vitamin B Complex 1 each PO DAILY 10/24/15 Vitamin E 1,000 unit PO DAILY 10/24/15 Metoprolol Tartrate [Lopressor (beta lisa)] 50 mg PO BID #60 tablet 10/25/15 Apixaban [Eliquis] 5 mg PO BID 07/08/17 Acetaminophen [Tylenol] 500 mg PO Q6H PRN PRN 09/18/17 Curamin 3 tab PO QHS 09/18/17 Cyanocobalamin (Vitamin B-12) [Vitamin B-12] 5,000 mcg SL BID 09/18/17 Gabriella Extract [Gabriella] 1,000 mg PO BID 09/18/17 Methylsulfonylmethane [MSM] 1,500 mg PO TID 09/18/17 Niacinamide 500 mg PO DAILY 09/18/17 Pyridoxine HCl [Vitamin B6] 100 mg PO DAILY 09/18/17 Sodium Chloride 1 gm PO DAILY 09/18/17 Ubidecarenone [Co Q-10] 200 mg PO DAILY 09/18/17 Vanadyl Sulfate 10 mg PO DAILY 09/18/17 Ferrous Gluconate 325 mg PO BIDCM tablet 09/20/17 Primary Care Physician: Kyleigh Castillo [Primary Care Provider] - Please follow up with your Primary Care Physician in: Follow-up within 3-5 days to review admission. Please Follow Up With: Lucas Glasgow MD When: Follow-up within 3-5 days for cardiac clearance evaluation, may see PRECISION INSTRUMENT AND TOOL MAKER. Please Follow Up With: Dangelo Alvarado MD When: Follow-up within 1 week for operative set-up, re-evaluation. Please Follow Up With: Isa Guzman DO When: Follow-up 2-4 weeks. Proposed Discharge Date: 09/20/17
--- NOTE | 2017-09-20 07:36 | PCM.DC.SUM ---
Discharge Date and Diagnosis - Problem List Patient Problems: Active and Suspected Problems Acute renal failure (Acute) H/O heart valve replacement with bioprosthetic valve (Acute) BPH with urinary obstruction (Acute) Urinary retention (Acute) Date of Admission: 09/18/17 Date of Discharge: 09/20/17 - Primary Discharge Diagnosis Active and Suspected Problems (1) Acute kidney injury secondary to ATN, Obstructive Nephropathy secondary to BL Hydronephrosis and Hydroureter secondary to Mass Lesion at the Bladder Base, Concurrent BPH (2) PAF (3) Valvular Heart Disease w/ History of Bioprosthetic AVR (4) Diabetes mellitus type II (5) Hyperlipidemia (6) Hypertension (7) Macrocytic Anemia (8) GERD (9) Severe-Moderate Protein-Calorie Malnutrition - Secondary Discharge Diagnosis Chronic Problems Hypertension (Chronic) Diabetes mellitus type 2 in nonobese (Chronic) Hospital Course and Treatment Dr. Alvarado Urology Dr. Guzman Nephrology Operations: None Procedures: 2-D Echocardiogram, EKG Summary of Care Provided: The patient is a 76 y/o M w/ PMHx: Valvular Heart Disease w/ History of Bioprosthetic AVR, PAF, HTN, HLD, Diabetes mellitus type II who presented to the [facility] ED on 09/18/17 w/ onset low back discomfort worsening over the last several days with difficulty with urination including hesitation, incomplete emptying and dribbling with recent [facility] with PSA 34 with planned urology evaluation in the future. ED CT A/P w/ bilateral hydronephrosis and hydroureter most likely secondary to the mass seen at the base of the bladder worse on the right side, sigmoid diverticulosis, atherosclerotic plaque formation of the abdominal aorta and the origin of the major visceral branches, admission BUN/Cr 46/3.47, prior baseline creatinine noted to be normal range, 09/19/17 BUN/Cr 35/2.04-->09/20/17 BUN/Cr 20/1.31, Urology evaluated, crump placed in the ED with improving function as noted, Nephrology consulted and will follow outpatient. ECHO obtained w/ normal LV size, normal LV systolic function, EF 60%, transmitral diastolic flow velocities suggestive of severe diastolic dysfunction, bioprosthetic aortic valve in place. Per discussion with Urology, ECHO obtained, plan discharge w/ crump in place given renal function improvement with planned follow-up within the next 3-5 days with his Car Pre Cooler/CANE FLUME FEEDING MACHINE OPERATOR for clearance (Dr. Glasgow) with then follow-up in the office with Dr. Alvarado in ~ 1 week, continue Eliquis, continue metoprolol. HgbA1c 6.2%, nutrition consulted for diet education and teaching to improve operative outcomes and given appearance of malnutrition. 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 Patient discharged to home on his home regimen given renal function normalization with additionally follow-up with his PCP. DAY OF DISCHARGE PROGRESS NOTE: Subjective: Patient without acute event overnight per self and nursing report. Patient denies fever, chills, nausea, emesis, abdominal pain, chest pain or dyspnea. Patient agreeable to discharge to home per recommendation via PT/OT evaluation. Patient will be discharged with follow-up with primary care physician within 3-5 days in addition to follow-up with Cardiology, Urology and Nephrology. Objective: T 98.3, heart rate 78, BP 143/75, respiratory rate 16, 98% on room air. Physical Examination: General: awake, alert, oriented x 3 and cooperative, seated upright in bed, NAD. Skin: normal color, turgor, no icterus, cyanosis except occasional extremity very staged ecchymoses. HEENT: AT/NC, EOMI, PERRLA, MMM. Lungs: Diminished breath sounds bases, moderate effort, no rales, ronchi or wheezing. Heart: Regular rate and rhythm; no gallop, rub audible, SM, s/p AVR. Abdomen: soft, thin/cachectic appearance, minimal suprapubic TTP, ND, normal BS, crump in place. Extremities: no cyanosis, clubbing, or edema. Neurological: patient awake, alert, oriented x 3; cognitive function intact; pupils equally reactive to light and accomodation; cranial nerves II-XII grossly normal, moving all 4 extremities, no focal deficits, strength improved, mildly to moderately globally decreased. Psychiatric: affect appears normal, no acute evidence of depressive or anxiety feelings. Assessment and Plan: Please see hospital summary above. Discharge Activity: - - Advise careful activity given now indwelling crump catheter pending re-evaluation per urology. May resume sexual activity in: - - Defer until cleared per Urology given concurrent crump catheter usage. Weight Bearing Status: Weight bearing as tolerated Call your doctor if you observe: Fever of 101 or Higher, Inability to urinate, Inability to have a bowel movement, Shortness of breath, Dizziness, Fainting spells, Chest pain, Uncontrolled pain Home Medications: Medications to take at Discharge ALPRAZolam [Xanax] 0.5 mg PO 10/24/15 Ascorbic Acid [Vitamin C] 1,000 mg PO DAILY 10/24/15 Fosinopril Sodium [Monopril] 10 mg PO DAILY 10/24/15 Garlic 1 mg PO DAILY 10/24/15 Metformin HCl [Glucophage] 1,000 mg PO BIDCM 10/24/15 Multivitamin [Daily Multiple Vitamin] 1 each PO DAILY 10/24/15 [place]-3 Fatty Acids/Fish Oil [[place] 3 1,000 mg Softgel] 1 each PO DAILY 10/24/15 Simvastatin [Zocor] 20 mg PO QHS 10/24/15 Vitamin B Complex 1 each PO DAILY 10/24/15 Vitamin E 1,000 unit PO DAILY 10/24/15 Metoprolol Tartrate [Lopressor (beta lisa)] 50 mg PO BID #60 tablet 10/25/15 Apixaban [Eliquis] 5 mg PO BID 07/08/17 Acetaminophen [Tylenol] 500 mg PO Q6H PRN PRN 09/18/17 Curamin 3 tab PO QHS 09/18/17 Cyanocobalamin (Vitamin B-12) [Vitamin B-12] 5,000 mcg SL BID 09/18/17 Gabriella Extract [Gabriella] 1,000 mg PO BID 09/18/17 Methylsulfonylmethane [MSM] 1,500 mg PO TID 09/18/17 Niacinamide 500 mg PO DAILY 09/18/17 Pyridoxine HCl [Vitamin B6] 100 mg PO DAILY 09/18/17 Sodium Chloride 1 gm PO DAILY 09/18/17 Ubidecarenone [Co Q-10] 200 mg PO DAILY 09/18/17 Vanadyl Sulfate 10 mg PO DAILY 09/18/17 Ferrous Gluconate 325 mg PO BIDCM tablet 09/20/17 Primary Care Physician: Kyleigh Castillo [Primary Care Provider] - Please follow up with your Primary Care Physician in: Follow-up within 3-5 days to review admission. Please Follow Up With: Lucas Glasgow MD When: Follow-up within 3-5 days for cardiac clearance evaluation, may see CANE FLUME FEEDING MACHINE OPERATOR. Please Follow Up With: Dangelo Alvarado MD When: Follow-up within 1 week for operative set-up, re-evaluation. Please Follow Up With: Isa Guzman DO When: Follow-up 2-4 weeks. Patient Instructions: Discharge Instructions for Acute Kidney Injury, ED Catheter Care Crump Disposition: Home Minutes spent on discharge:: 35 Patient Condition:: Fair Medical Necessity - Tobacco Use Smoking Status: Never smoker Tobacco Use: Secondhand Meaningful Use Info Meaningful Use Diagnoses (Choose all that apply): None applicable Code Visit Inpatient E&M: 81196 Disch Hosp
[2017-09-20 07:38] VITALS: BP 143/75; PULSE 78; RESP 16; TEMP 36.8; O2SAT 98
--- NOTE | 2017-09-20 07:44 | DS.PCM_ITS ---
Discharge Date and Diagnosis - Problem List Patient Problems: Active and Suspected Problems Acute renal failure (Acute) H/O heart valve replacement with bioprosthetic valve (Acute) BPH with urinary obstruction (Acute) Urinary retention (Acute) Date of Admission: 09/18/17 Date of Discharge: 09/20/17 - Primary Discharge Diagnosis Active and Suspected Problems (1) Acute kidney injury secondary to ATN, Obstructive Nephropathy secondary to BL Hydronephrosis and Hydroureter secondary to Mass Lesion at the Bladder Base, Concurrent BPH (2) PAF (3) Valvular Heart Disease w/ History of Bioprosthetic AVR (4) Diabetes mellitus type II (5) Hyperlipidemia (6) Hypertension (7) Macrocytic Anemia (8) GERD (9) Severe-Moderate Protein-Calorie Malnutrition - Secondary Discharge Diagnosis Chronic Problems Hypertension (Chronic) Diabetes mellitus type 2 in nonobese (Chronic) Hospital Course and Treatment Dr. Alvarado Urology Dr. Guzman Nephrology Operations: None Procedures: 2-D Echocardiogram, EKG Summary of Care Provided: The patient is a 76 y/o M w/ PMHx: Valvular Heart Disease w/ History of Bioprosthetic AVR, PAF, HTN, HLD, Diabetes mellitus type II who presented to the [facility] ED on 09/18/17 w/ onset low back discomfort worsening over the last several days with difficulty with urination including hesitation, incomplete emptying and dribbling with recent [facility] evaluation with PSA 34 with planned urology evaluation in the future. ED CT A/P w/ bilateral hydronephrosis and hydroureter most likely secondary to the mass seen at the base of the bladder worse on the right side, sigmoid diverticulosis, atherosclerotic plaque formation of the abdominal aorta and the origin of the major visceral branches, admission BUN/Cr 46/3.47, prior baseline creatinine noted to be normal range, BUN/Cr 35/2.04-->09/20/17 BUN/Cr 20/1.31, Urology evaluated, crump placed in the ED with improving function as noted, Nephrology consulted and will follow outpatient. ECHO obtained w/ normal LV size, normal LV systolic function , EF 60%, transmitral diastolic flow velocities suggestive of severe diastolic dysfunction, bioprosthetic aortic valve in place. Per discussion with Urology, ECHO obtained, plan discharge w/ crump in place given renal function improvement with planned follow-up within the next 3-5 days with his Senior Economist/ALUMINUM BOATS ASSEMBLER for clearance (Dr. Glasgow) with then follow-up in the office with Dr. Alvarado in ~ 1 week, continue Eliquis, continue metoprolol. HgbA1c 6.2% , nutrition consulted for diet education and teaching to improve operative outcomes and given appearance of malnutrition. 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 Patient discharged to home on his home regimen given renal function normalization with additionally follow-up with his PCP. DAY OF DISCHARGE PROGRESS NOTE: Subjective: Patient without acute event overnight per self and nursing report. Patient denies fever, chills, nausea, emesis, abdominal pain, chest pain or dyspnea. Patient agreeable to discharge to home per recommendation via PT/OT evaluation. Patient will be discharged with follow-up with primary care physician within 3-5 days in addition to follow-up with Cardiology, Urology and Nephrology. Objective: T 98.3, heart rate 78, BP 143/75, respiratory rate 16, 98% on room air. Physical Examination: General: awake, alert, oriented x 3 and cooperative, seated upright in bed, NAD. Skin: normal color, turgor, no icterus, cyanosis except occasional extremity very staged ecchymoses. HEENT: AT/NC, EOMI, PERRLA, MMM. Lungs: Diminished breath sounds bases, moderate effort, no rales, ronchi or wheezing. Heart: Regular rate and rhythm; no gallop, rub audible, SM, s/p AVR. Abdomen: soft, thin/cachectic appearance, minimal suprapubic TTP, ND, normal BS , crump in place. Extremities: no cyanosis, clubbing, or edema. Neurological: patient awake, alert, oriented x 3; cognitive function intact; pupils equally reactive to light and accomodation; cranial nerves II-XII grossly normal, moving all 4 extremities, no focal deficits, strength improved, mildly to moderately globally decreased. Psychiatric: affect appears normal, no acute evidence of depressive or anxiety feelings. Assessment and Plan: Please see hospital summary above. Discharge Activity: - - Advise careful activity given now indwelling crump catheter pending re-evaluation per urology. May resume sexual activity in: - - Defer until cleared per Urology given concurrent crump catheter usage. Weight Bearing Status: Weight bearing as tolerated Call your doctor if you observe: Fever of 101 or Higher, Inability to urinate, Inability to have a bowel movement, Shortness of breath, Dizziness, Fainting spells, Chest pain, Uncontrolled pain Home Medications: Medications to take at Discharge ALPRAZolam [Xanax] 0.5 mg PO 10/24/15 Ascorbic Acid [Vitamin C] 1,000 mg PO DAILY 10/24/15 Fosinopril Sodium [Monopril] 10 mg PO DAILY 10/24/15 Garlic 1 mg PO DAILY 10/24/15 Metformin HCl [Glucophage] 1,000 mg PO BIDCM 10/24/15 Multivitamin [Daily Multiple Vitamin] 1 each PO DAILY 10/24/15 [place]-3 Fatty Acids/Fish Oil [[place] 3 1,000 mg Softgel] 1 each PO DAILY Simvastatin [Zocor] 20 mg PO QHS 10/24/15 Vitamin B Complex 1 each PO DAILY 10/24/15 Vitamin E 1,000 unit PO DAILY 10/24/15 Metoprolol Tartrate [Lopressor (beta lisa)] 50 mg PO BID #60 tablet 10/25/15 Apixaban [Eliquis] 5 mg PO BID 07/08/17 Acetaminophen [Tylenol] 500 mg PO Q6H PRN PRN 09/18/17 Curamin 3 tab PO QHS 09/18/17 Cyanocobalamin (Vitamin B-12) [Vitamin B-12] 5,000 mcg SL BID 09/18/17 Gabriella Extract [Gabriella] 1,000 mg PO BID 09/18/17 Methylsulfonylmethane [MSM] 1,500 mg PO TID 09/18/17 Niacinamide 500 mg PO DAILY 09/18/17 Pyridoxine HCl [Vitamin B6] 100 mg PO DAILY 09/18/17 Sodium Chloride 1 gm PO DAILY 09/18/17 Ubidecarenone [Co Q-10] 200 mg PO DAILY 09/18/17 Vanadyl Sulfate 10 mg PO DAILY 09/18/17 Ferrous Gluconate 325 mg PO BIDCM tablet 09/20/17 Primary Care Physician: Kyleigh Castillo [Primary Care Provider] - Please follow up with your Primary Care Physician in: Follow-up within 3-5 days to review admission. Please Follow Up With: Lucas Glasgow MD When: Follow-up within 3-5 days for cardiac clearance evaluation, may see ALUMINUM BOATS ASSEMBLER. Please Follow Up With: Dangelo Alvarado MD When: Follow-up within 1 week for operative set-up, re-evaluation. Please Follow Up With: Isa Guzman DO When: Follow-up 2-4 weeks. Patient Instructions: Discharge Instructions for Acute Kidney Injury, ED Catheter Care Crump Disposition: Home Minutes spent on discharge:: 35 Patient Condition:: Fair Medical Necessity - Tobacco Use Smoking Status: Never smoker Tobacco Use: Secondhand Meaningful Use Info Meaningful Use Diagnoses (Choose all that apply): None applicable Code Visit Inpatient E&M: 41351 Disch Hosp
[2017-09-20] MEDS: Cyanocobalamin 500 MCG Tablet 1000 MCG PO (07:47)
[2017-09-20 07:48] VITALS: PULSE 78
[2017-09-20] MEDS: APIXABAN 2.5 MG TABLET PO (07:48)
[2017-09-20] MEDS: Multivitamins,Ther W-Minerals Tablet 1 TABLET PO (07:48)
[2017-09-20] MEDS: Pantoprazole Sodium 20 MG Tablet PO (07:48)
[2017-09-20] MEDS: Ferrous Gluconate 325 MG Tablet PO (07:48)
[2017-09-20] MEDS: Ascorbic Acid 500 MG Tablet 1000 MG PO (07:48)
[2017-09-20] MEDS: Pyridoxine HCl 50 MG Tablet 100 MG PO (07:48)
[2017-09-20] MEDS: Metoprolol Tartrate 50 MG Tablet PO (07:48)
--- NOTE | 2017-09-20 09:37 | CASEMGMT ---
RN CM NOTE. DISCHARGE PHYSICIAN FOLLOW-UP APPTS MADE. APPT FOR UROLOGY MADE ON 09-30. CALLED BACK TO NURSE TO ARRANGE FOR SOONER APPT D/T ORDER IS RECOMMENDING TO FOLLOW UP IN ONE WEEK. MSG LEFT AND CALL BACK INFO GIVEN. PT WILL BE DISCHARGED W/JOHN.
[2017-09-20 10:00] LABS: Vitamin B12 > 2000 pg/mL (211-911)
[2017-09-20 11:16] LABS: Bedside Glucose 127 mg/dL (70-110)
--- NOTE | 2017-09-20 11:18 | CASEMGMT ---
SHLOMO LAGOS NOTE: HH referral received however pt is not home-bound. SHLOMO LAGOS discussed with pt if difficulties arise w/ [place] Catheter care, to contact Dr Alvarado. Phone number given to pt. Jana ROLON RN, CM.
[2017-09-20 13:33] VITALS: BP 140/70; BP 174/84
--- NOTE | 2017-09-20 13:35 | CR.ITP_ITS ---
General Information - General Information Admitting Diagnosis: aortic valve replacement - Education/Goals Barriers to Learning: Hearing Impairment, Vision Impairment Individual Counseling: Discharge Assessment: Abnormal Cholesterol Levels, High Blood Pressure, Diabetes Cardiac Rehabilitation Goals: 1. Maintain the individual as the primary focus of care. 2. To improve the patient's quality of life. 3. Identification of cardiac risk factors and provide cardiac risk factor management. 4. Enhance the psychosocial status of the patient. 5. Reconditioning enough to allow the patient to resume customary activities. 6. Control symptoms of cardiac disease Scale for measuring improvement of personal goals: Enter appropriate number in Comments. 2 = Unchanged. 3 = Slightly Better. 4 = Moderate Improvement. 5 = Met my Goal Personal Goals: Discharge Reassessment: Improve management of stress and emotions, Improve energy level, Participate in home exercise program Exercise - 90-Day Assessment - Visit Date of Eval: 09/20/17 - Stages of Change Stages of Change:: Action - Exercise Prescription Mode:: Treadmill, Airdyne, NuStep Frequency (x/week): 3 Duration:: 30 METs: 4 60% increase Target Heart Rate:: 100-108 max 137 A-Fib - Hypertension Resting Blood Pressure:: 140/70 Peak Exercise Blood Pressure:: 174/84 Medication Changes:: No - Intervention Home Exercise/Activity Goal:: Sitting Time <3 hrs/day - Education Goals:: Warm-up, RPE DESTINY Scale, S/S, Safe Exercise, Self-Monitoring - Exercise Program Goals Exercise Program Goals: Aerobic Activity >30 min, B/P <130/80 Nutrition - Initial Assessment - Program Goals Nutrition Program Goals: LDL <70. Total Cholesterol <200. HDL >45. Triglycerides <150. HgbA1C <7%. BMI <25 - Diabetes Do you monitor your blood sugar at home?: Yes - two days a week. Nutrition - 90-Day Assessment - Program Goals Nutrition Program Goals: LDL <70. Total Cholesterol <200. HDL >45. Triglycerides <150. HgbA1C <7%. BMI <25 - Visit Date of Eval: 09/20/17 - Stages of Change Stages of Change:: Action - Lipids Has the patient seen the dietitian?: Yes - Diabetes Diabetes:: No - Weight Management Weight:: 86.636 kg - Intervention Referral to dietitian:: No Referral to Diabetic Clinic:: No Will attend diet classes:: Yes - Education Attended class for:: Signs & symptoms of hypoglycemia, Signs & symptoms of hyperglycemia, Relate diabetes to coronary artery disease, Healthy eating Tobacco - Initial Assessment - Program Goals Tobacco Program Goals: Complete smoking cessation. Attend education classes. Improve Knowledge Test score - Learning Barriers Learning Barriers: Vision, Cognitive - some problems with concentration, Ready to Learn Tobacco - 90-Day Assessment - Program Goals Tobacco Program Goals: Complete smoking cessation. Attend education classes. Improve Knowledge Test score - Learning Barriers Learning Barriers: Participates in education - Family Support Do you have family support?: Yes - Tobacco Use Tobacco Use: Non-smoker Do you use smokeless tobacco?: No - Intervention Smoking Cessation Referral:: No Individual Education/Counseling:: No Education Schedule Given:: Yes - Education Attended class for:: Tobacco triggers, Coronary artery disease, Risk factors, Sexuality, Medical compliance, Cardiac A&P, Angina signs & symptoms Psychosocial - Initial Assess - Target Goals Target Goals: Assess presence or absence of depression. Using a valid screening tool, maximizes coping skills. Positive support system - Psychosocial Test Tool Used:: HANDS Depression Questionnaire - Assistive Devices Fall Risk Assessed:: Yes Psychosocial - 90-Day Assess - Target Goals Target Goals: Assess presence or absence of depression. Using a valid screening tool, maximizes coping skills. Positive support system - Stages of Change Stages of Change:: Action - Psychosocial Test Tool Used:: HANDS Depression Questionnaire - Intervention PS - Interventions: Yes Attend Stress Management Classes, Yes Uses Stress Management Skills, No Referral to Mental Health, No Referral to [facility] Case Management, No Referral to Physician - Education Attended classes for:: Coping techniques, Signs & symptoms of depression, Stress management, Relaxation techniques - Assistive Devices Assistive Devices:: None, Cane Fall Risk Assessed:: Yes Patient Health Questionnaire 90-Day Re-eval Assessment 1. Little interest or pleasure in doing things: Not at all 2. Feeling down, depressed, or hopeless: Not at all 3. Trouble falling or staying asleep, or sleeping too much: Not at all 4. Feeling tired or having little energy: Not at all 5. Poor appetite or overeating: Not at all 6. Feeling bad about yourself -- or that you are a failure or have let yourself or your family down: Not at all 7. Trouble concentrating on things, such as reading the newspaper or watching television: Not at all 8. Moving or speaking so slowly that other people could have noticed. Or the opposite - being so fidgety or restless that you have been moving around a lot more than usual: Not at all 9. Thoughts that you would be better off , or of hurting yourself in some way: Not at all How difficult have these problems made it for you to do your work, take care of things at home, or get along with other people?: Not difficult at all Total Score: 0 Self-Efficacy 90-Day Re-eval Assessment We would like to know how confident you are in doing certain activities. Please select your confidence level for:: Select your confidence level for the following using the scale 1-10 where 1 is not at all confident and 10 is totally confident. Your score is the average of all 6 responses. Fatigue: How confident are you that you can keep the fatigue caused by your disease from interfering with the things you want to do? Select Number: 9 Physical Discomfort or Pain: How confident are you that you can keep the physical discomfort or pain of your disease from interfering with the things you want to do? Select Number: 9 Emotional Distress: How confident are you that you can keep the emotional distress caused by your disease from interfering with the things you want to do? Select Number: 9 Other Symptoms or Health Problems: How confident are you that you can keep other symptoms or health problems from interfering with the things you want to do? Select Number: 9 Different Tasks and Activities: How confident are you that you can do the different tasks and activities needed to manage your health condition so as to reduce your need to see a doctor? Select Number: 9 Medication: How confident are you that you can do things other than just taking medication to reduce how much your illness affects your everyday life? Select Number: 9 Total Score:: 9
--- NOTE | 2017-09-20 14:31 | CHAPLAIN ---
Type of Pastoral Visit _x__ Initial Visit ___ Follow-up Visit ___ On-call Visit ___ General Patient Visit ___ Spiritual Assessment ___ Family Conference ___ Bereavement ___ Rapid Response ___ Code Blue ___ Other (describe below) Pastoral Care Referral From _x__ Patient ___ Family ___ Nurse ___ Physician ___ White [place] Buffer ___ Numerical Control Machine Machinist ___ Other (describe below) Sacrament/Intervention _x__ Active listening ___ Anointing ___ Zoroastrianism ___ Bereavement ___ Communion _x__ Sonal exploration ___ ___ Life review _x__ Prayer ___ Reconciliation ___ Sacrament of Sick ___ Supportive presence ___ Wedding ___ Other (describe below) Pastoral Comments
== END 2017-09-20 13:40 | disposition home or self-care (01) | DRG 693 ==
LOC: ED 14:20 → MS2 15:14
PROVIDERS: Admitting Provider Hospitalist; Emergency Provider Emergency Medicine; Family Provider Internal Medicine Infectious Disease; PCP Internal Medicine Infectious Disease; Visit Provider Family Medicine
DX: N13.8 Other obstructive and reflux uropathy (principal); N17.0 Acute kidney failure with tubular necrosis; E44.0 Moderate protein-calorie malnutrition; E11.9 Type 2 diabetes mellitus without complications; N40.1 Benign prostatic hyperplasia with lower urinary tract symptoms; R33.8 Other retention of urine; K21.9 Gastro-esophageal reflux disease without esophagitis; I10 Essential (primary) hypertension; E78.5 Hyperlipidemia, unspecified; I48.0 Paroxysmal atrial fibrillation; Z95.3 Presence of xenogenic heart valve; Z79.01 Long term (current) use of anticoagulants; D53.9 Nutritional anemia, unspecified; Z79.84 Long term (current) use of oral hypoglycemic drugs; E87.5 Hyperkalemia; N32.9 Bladder disorder, unspecified; Z68.29 Body mass index [BMI] 29.0-29.9, adult
CPT/HCPCS: 36415; 51702; 74176; 80048; 81001; 82607; 82728; 82746; 82962; 83036; 83540; 83550; 83735; 85025; 87086; 93005; 93306; 97110; 97162; 97165; 97802; 99285; J7030; J7040; J2405; J7799

== ENCOUNTER → 2017-09-30 14:08 | Outpatient (CLI) | payer OTHER, MEDICARE, BC, SELFPAY ==
--- NOTE | 2017-09-30 14:57 | EKG12_ITS ---
Test Reason : PRE OP Blood Pressure : / mmHG Vent. Rate : 096 BPM Atrial Rate : 096 BPM P-R Int : 150 ms QRS Dur : 076 ms QT Int : 354 ms P-R-T Axes : 034 009 046 degrees QTc Int : 447 ms Normal sinus rhythm Normal ECG Confirmed by SUZIE BARRERA, ALON ([id number]), supervising film or videotape editor LOLA RODGERS ([id number]) on 10/03/2017 3:02:40 PM Referred By: Dangelo Alvarado Confirmed By:ALON LARSEN MD
[2017-09-30 16:39] LABS: Hematocrit 37.9 % (40-54); Hemoglobin 13.1 g/dl (13.0-16.5); Mean Corp Hgb Conc 34.6 g/gl (32-36); Mean Corpuscular Hgb 32.6 pg (27.0-32.0); Mean Corpuscular Volume 94.3 fL (80-94); Mean Platelet Vol. 10.1 fl (6.2-12.0); Platelet Count 357 K/mm3 (150-450); RBC Distribution Width CV 12.9 % (11.6-14.6); Red Blood Count 4.02 M/mm3 (4.6-6.2); White Blood Count 11.7 K/mm3 (4.4-11.0)
[2017-09-30 16:55] LABS: Scan Indicated on CBC? Y/N NO
[2017-09-30 17:02] LABS: Anion Gap 10 (5-15); BUN 23 mg/dL (7-18); BUN/Creat Ratio 19.8 RATIO (10-20); Calcium,Total 9.2 mg/dL (8.5-10.1); Chloride 101 mmol/L (98-107); Creatinine, Serum 1.16 mg/dL (0.70-1.30); EST Glomerular Filtration Rate 65 mL/min (>60); Est Glom Filt Rate - Afr Amer 78 mL/min (>60); Glucose 148 mg/dL (74-106); Potassium 4.2 mmol/L (3.5-5.1); Sodium Level 140 mmol/L (136-145)
== END ==
PROVIDERS: Family Provider Internal Medicine Infectious Disease; PCP Internal Medicine Infectious Disease; Visit Provider Urology
DX: Z01.812 Encounter for preprocedural laboratory examination (principal); N40.1 Benign prostatic hyperplasia with lower urinary tract symptoms; R33.9 Retention of urine, unspecified
CPT/HCPCS: 36415; 80048; 85027; 86900; 93005

== ENCOUNTER 2017-10-11 12:27 | Inpatient (IN) | payer MEDICARE, BC, OTHER, SELFPAY ==
[2017-10-08 09:21] VITALS: BP 119/70; PULSE 72; RESP 18; TEMP 37.4; O2SAT 97; BMI 28.2
[2017-10-11] VITALS (13 sets, daily range): BP systolic 106–134; BP diastolic 48–73; PULSE 63–83; RESP 16–18; TEMP 36.2–37.1; O2SAT 92–100; BMI 28.2
--- NOTE | 2017-10-11 | IMM_PTH ---
PATIENT: MATT DURBIN LOC: MS3 U#:[id number] AGE/SX: 76/M [place] [facility] [place]: Dr. Dangelo Alvarado MD : 1940 BED: 1 DIS: 10/13/2017 SPEC #: [id number] RECD: 10/15/17 14:16 STATUS: LILIBETH REQ #: [id number] KURT: 10/11/17 00:[address]: Dangelo Alvarado DEPT: IMMUNOHISTOCHEMISTRY RECD BY: Elva Rodriguez ENTERED: 10/15/17 14:17 SP TYPE: IMMUNO OTHR DR: Dr. Kyleigh Castillo MD Tissues: Prostate, NOS Procedures: PSAP (add) PSA (initial) PHYSICIAN & INSTITUTION [place] [id number] SPECIMEN INFORMATION: Tissue Source: Prostate tissue Clinical Info: BPH with obstruction, urinary retention Specimen Number: [id number] #3 CPT code: 67424, 58151 METHODOLOGY: Deparaffinized sections of prefer/formalin-fixed tissue or PAP/DQ stained slides are incubated with monoclonal/polyclonal antibodies/oligonucleotide probes. Localization is made via biotin free immunoperoxidase method. Appropriate controls are performed and reacted as expected. Results on target cell population are indicated in the following table: RESULTS: ANTIBODY / CLONE RESULT Block 3 PSA (ER-PR8) positive PSAP (PASE/4LJ) positive These tests were developed and their performance characteristics determined by [facility]. They may not have been cleared or approved by the U.S. Food and Drug Administration. The FDA has determined that such clearance or approval is not necessary. INTERPRETATION: Prostate tissue, TUR: Invasive prostate carcinoma. AM:marino 10/16/17
--- NOTE | 2017-10-11 | PROS_PTH ---
PATIENT: MATT DURBIN LOC: MS3 U#:[id number] AGE/SX: 76/M ROOM: [facility] – [place] RE10/11/[address]: Dr. Dangelo Alvarado MD : 1940 BED: 1 DIS: 10/13/2017 SPEC #: [id number] RECD: 10/11/17 12:32 STATUS: LILIBETH RETeodoro #: [id number] KURT: 10/11/17 00:[address]: Dangelo Alvarado DEPT: SURGICAL PATHOLOGY RECD BY: Mat Rivas ENTERED: 10/14/17 12:32 SP TYPE: TURP OTHR DR: Dr. Kyleigh Castillo MD Tissues: Prostate, NOS Procedures: Surgery Specimen Level IV HEADER OPERATION: Cysto, TUR, prostate, Olympus PRE-OP DIAGNOSIS: Benign prostatic hypertrophy with obstruction; urinary retention TISSUE SUBMITTED: Prostate tissue MICROSCOPIC DIAGNOSIS Prostate, transurethral resection: Adenocarcinoma. Cascade grade - 9 (5+4) Perineural invasion - present Vascular invasion - not identified. AM:marino 10/15/17 COMMENT Adenocarcinoma is present in approximately 90% of the tissue in 12 slides submitted for microscopic examination. Immunohistochemistry ([id number]) supports the above diagnosis. Case has been reviewed in consultation with Dr. Roberts who concurs with the above diagnosis. OTIS:PRESTON MICROSCOPIC DESCRIPTION Slides are reviewed. GROSS DESCRIPTION Received is one container labeled with the patient's name and designated prostate tissue. The specimen consists of multiple irregular fragments of pink-dutton, rubbery, soft tissue that in aggregate weigh 30.8 gm and measure in aggregate 8 x 7 x 3 cm. Client Delivery Specialist tissue is submitted in 12 cassettes. / PRESTON:marino 10/14/17 TC:0 CPT: 31640
[2017-10-11 08:55] LABS: Bedside Glucose 132 mg/dL (70-110)
[2017-10-11] MEDS: Cefazolin 2 GM in 0.9% Normal Saline 100 ML IV (10:25)
--- NOTE | 2017-10-11 12:59 | PCM.OPRPT ---
Report of Operation Date of Procedure: 10/11/17 Pre-Operative Diagnosis: PSA with bladder outlet obstruction Post-Operative Diagnosis: Same Surgery/Procedure Performed:: Transurethral resection of the prostate Description of Surgical Findings:: 76-year-old male who presented to the hydronephrosis and bladder outlet obstruction catheter is was placed his creatinine then resolved back to normal he now presents to the operating room for cystoscopy and TUR P of the prostate to relieve the obstruction outlet obstruction we suspect he may have prostate cancer. 76-year-old male taken back to the operating room at the smooth induction of general anesthesia he was placed supine on the table penis and testicles were prepped and draped in usual sterile fashion, I then went into the bladder with a 12? Olympus resectoscope switched over to the large loop started resecting essentially had a long length prosthetic obstruction he had growth of the mass into the bladder neck and floor the bladder trigone area I had to resect all this tissue and the resected all the way back down on the floor all the way back in the verumontanum then resected the right lobe of the tissue in the resect the left of the tissue very bloody resection because of the tissue suspect that this is prostate cancer appeared to be invasive prostate cancer invading into fat and muscle around the prostate and bladder area at the end of the resection got all the chips out the hand off as a specimen obtained hemostasis as needed best as possible and then put a 22 [place] catheter into the bladder on continuous bladder irrigation and start irrigation is a little bit bloody was taken back to PACU in stable condition. Type of Anesthesia:: General Drains: 22fr 3 way - Admit VTE Documentation VTE Present on Admission: No VTE Mechan Device Prophylaxis: SCD's VTE Pharm Prophylaxis ordered?: No Reason prophylaxis not ordered:: Treatment Not Indicated
[2017-10-11 13:46] LABS: Bedside Glucose 141 mg/dL (70-110)
[2017-10-11] MEDS: metFORMIN HCl 1,000 MG Tablet 1000 MG PO (17:22)
[2017-10-11] MEDS: ALPRAZolam 0.5 MG Tablet PO ×2 (17:22→21:45)
[2017-10-11] MEDS: Metoprolol Tartrate 50 MG Tablet PO (21:44)
[2017-10-11] MEDS: Docusate Sodium 100 MG Capsule PO (21:44)
[2017-10-11] MEDS: Acetaminophen 325 MG Tablet PO (21:45)
[2017-10-11] MEDS: 0.9% Normal Saline 1,000 ML 125 ML IV (21:45)
[2017-10-11] MEDS: Atorvastatin Calcium 20 MG Tablet PO (21:45)
[2017-10-11] MEDS: Pyridoxine HCl 100 MG Tablet PO (21:45)
[2017-10-11] MEDS: Ciprofloxacin 500 MG Tablet PO (21:45)
[2017-10-12] VITALS (7 sets, daily range): BP systolic 103–125; BP diastolic 47–59; PULSE 70–82; RESP 16–18; TEMP 36.8–37.2; O2SAT 98–99; BMI 27.3
[2017-10-12] MEDS: 0.9% Normal Saline 1,000 ML 125 ML IV ×3 (04:58→19:49)
--- NOTE | 2017-10-12 05:04 | NUR.TO.PHY ---
Patient called out with penis pressure Upon assessment noted urine leaking from penis around catheter, bed and gown wet. 3 way crump flushed, 4 large clots noted in bag. Urine is now bright red again, compared to previous pink color. CBI left at faster rate. Will continue to monitor.
[2017-10-12 08:01] LABS: Hematocrit 29.5 % (40-54); Hemoglobin 9.9 g/dl (13.0-16.5); Mean Corp Hgb Conc 33.6 g/gl (32-36); Mean Corpuscular Hgb 32.4 pg (27.0-32.0); Mean Corpuscular Volume 96.4 fL (80-94); Mean Platelet Vol. 9.8 fl (6.2-12.0); Platelet Count 221 K/mm3 (150-450); RBC Distribution Width SD 43.6 fl (35.1-43.9); Red Blood Count 3.06 M/mm3 (4.6-6.2); White Blood Count 10.8 K/mm3 (4.4-11.0)
[2017-10-12 08:15] LABS: Scan Indicated on CBC? Y/N NO
[2017-10-12 08:27] LABS: Anion Gap 8 (5-15); BUN 11 mg/dL (7-18); BUN/Creat Ratio 14.8 RATIO (10-20); Chloride 110 mmol/L (98-107); Creatinine, Serum 0.74 mg/dL (0.70-1.30); EST Glomerular Filtration Rate 108 mL/min (>60); Est Glom Filt Rate - Afr Amer 131 mL/min (>60); Estimated Creatinine Clearance 69.46 ml/min; Glucose 119 mg/dL (74-106); Potassium 3.9 mmol/L (3.5-5.1); Sodium Level 144 mmol/L (136-145)
[2017-10-12] MEDS: Acetaminophen 325 MG Tablet PO ×2 (09:05→21:44)
[2017-10-12] MEDS: Ciprofloxacin 500 MG Tablet PO ×2 (09:06→21:38)
[2017-10-12] MEDS: ALPRAZolam 0.5 MG Tablet PO ×4 (09:06→21:44)
[2017-10-12] MEDS: Metoprolol Tartrate 50 MG Tablet PO ×2 (09:06→21:39)
[2017-10-12] MEDS: SODIUM CHLORIDE 1 GM TABLET PO (09:06)
[2017-10-12] MEDS: Pyridoxine HCl 100 MG Tablet PO ×2 (09:06→21:41)
[2017-10-12] MEDS: Lisinopril 10 MG Tablet PO (09:07)
[2017-10-12] MEDS: metFORMIN HCl 1,000 MG Tablet 1000 MG PO ×2 (09:07→17:01)
[2017-10-12] MEDS: Pantoprazole Sodium 40 MG Tablet PO (09:07)
[2017-10-12] MEDS: Furosemide 40 MG Tablet PO (09:07)
[2017-10-12] MEDS: Docusate Sodium 100 MG Capsule PO ×2 (09:07→21:38)
--- NOTE | 2017-10-12 10:00 | CASEMGMT ---
CM INITIAL ASSESSMENT: Home: Patient states he lives alone in a one story home, with a basement. He states there are no steps into the home, he does use basement stairs at times. He has a ramp to his front door. HHS/Aides: Denies DME: Patient states he uses a cane most of the time and a walker sometimes. He has a wheelchair available. Home Oxygen: Denies Pharmacy: OR is preference. [facility] in [place] secondarily. Advance Directives: Patient states he does have advance directives. These are not found in the patient's e-chart. Patient states his son, Goyo Cancino, is medical POA. Contact information is on file. PCP: Kyleigh Castillo Specialists: OR providers. Finish Patcher is Dr. Elena, with OR. Patient states he have an appointment with his urologist on 10/15. He is unable to recall name of provider, but he believes it is Dr. Guzman. DC Plan: Home CM will continue to follow for safe and effective discharge planning.
--- NOTE | 2017-10-12 10:19 | CASEMGMT ---
Patient signed [facility] waiver, electing to stay at [facility]. [facility]ed to [facility], original on chart and copy given to patient.
[2017-10-12] MEDS: Glucerna Shake 120 ML LIQUID PO ×2 (12:15→17:00)
--- NOTE | 2017-10-12 13:54 | PCM.PROGNOTE ---
Subjective: Status post TURP, urine is clearing up. He is feeling well. No change in pain no chest pain or discomfort. Catheter is - Physical Exam General: Alert, Oriented x3, Cooperative HEENT: Atraumatic, PERRLA, EOMI, Normocephalic Neck: Supple, No JVD, Negative Carotid Bruits Lungs: Clear to auscultation, Normal air movement Cardiovascular: Regular rate, No murmurs Abdomen: Bowel Sounds Present, Soft, Non Tender Extremities: No edema, Capillary Refill Less than 3 Seconds Skin: No rashes, No breakdown Musculoskeletal: No Tenderness to Palpation of Joints or Extremities Neurological: Cranial nerves II-XII grossly intact Psych/Mental Status: Normal Affect, Appropriate Vital Signs Temp Pulse Resp BP Pulse Ox 98.3 F 70 18 125/47 H 99 10/12/17 08:32 10/12/17 09:06 10/12/17 08:32 10/12/17 08:32 10/12/17 08:32 Oxygen Delivery Method Room Air Weight: 79.379 kg Body Mass Index (BMI) 27.3 Finger Stick Blood Glucose 141 Intake and Output for Last 24 Hours 10/10/17 10/11/17 10/12/17 23:59 23:59 23:59 Intake Total 2287 / 2287 2032 / 2032 Output Total 2775 / 2775 2074 / 2074 Balance -488 / -488 -42 / -42 Laboratory Tests Past 24 Hrs 10/12/17 10/12/17 06:45 06:45 WBC 10.8 RBC 3.06 L Hgb 9.9 L Hct 29.5 L MCV 96.4 H MCH 32.4 H MCHC 33.6 RDW 13.0 RDW Differential 43.6 Plt Count 221 MPV 9.8 Sodium 144 Potassium 3.9 Chloride 110 H Carbon Dioxide 26.0 Anion Gap 8 BUN 11 Creatinine 0.74 Estim Creat Clear Calc 69.46 Est GFR (MDRD) Af Amer 131 Est GFR (MDRD) Non-Af 108 BUN/Creatinine Ratio 14.8 Glucose 119 H Calcium 8.0 L Total PSA 73.20 H Medical Necessity - Tobacco Use Smoking Status: Never smoker Assessment/Plan All Active Problems (Last Reviewed 09/25/17 @ 16:11 by Lucas Glasgow MD) Preop cardiovascular exam (Acute) Bilateral hydronephrosis (Acute) Acute renal failure (Acute) Atrial fibrillation with rapid ventricular response (Resolved) Urinary retention (Resolved) 76-year-old male with a resection of the prostate for bladder outlet obstruction suspect prostate cancer discussed this with the patient today. Plan is to remove the catheter tomorrow for voiding trial and hopefully home tomorrow after he urinates.
[2017-10-12] MEDS: Atorvastatin Calcium 20 MG Tablet PO (21:39)
[2017-10-13] MEDS: 0.9% Normal Saline 1,000 ML 125 ML IV (02:50)
[2017-10-13 02:56] VITALS: BP 96/57; PULSE 81; RESP 16; TEMP 36.8; O2SAT 99
[2017-10-13] MEDS: Acetaminophen 325 MG Tablet PO (07:59)
[2017-10-13] MEDS: Ciprofloxacin 500 MG Tablet PO (08:00)
[2017-10-13] MEDS: Pantoprazole Sodium 40 MG Tablet PO (08:00)
[2017-10-13] MEDS: Pyridoxine HCl 100 MG Tablet PO (08:00)
[2017-10-13] MEDS: SODIUM CHLORIDE 1 GM TABLET PO (08:01)
[2017-10-13] MEDS: Furosemide 40 MG Tablet PO (08:01)
[2017-10-13] MEDS: metFORMIN HCl 1,000 MG Tablet 1000 MG PO (08:01)
[2017-10-13] MEDS: Lisinopril 10 MG Tablet PO (08:02)
[2017-10-13 08:04] VITALS: PULSE 70
[2017-10-13] MEDS: ALPRAZolam 0.5 MG Tablet PO ×2 (08:04→14:31)
[2017-10-13] MEDS: Metoprolol Tartrate 50 MG Tablet PO (08:04)
[2017-10-13] MEDS: Glucerna Shake 120 ML LIQUID PO ×2 (08:04→12:43)
[2017-10-13 08:05] VITALS: BP 111/60; PULSE 84; RESP 16; TEMP 37; O2SAT 96
--- NOTE | 2017-10-13 08:36 | PCM.DC.URO ---
Discharge Diet: Light diet - advance as tolerated Discharge Activity: Return to Normal Activity Instructions: Transurethral Resection of the Prostate (TURP): Home Recovery Allergies/Adverse Reactions: Allergies albuterol Allergy (Verified 10/08/17 09:09) Unknown clonazepam Allergy (Verified 10/08/17 09:09) Unknown ibuprofen Allergy (Verified 10/08/17 09:09) Unknown ipratropium Allergy (Verified 10/08/17 09:09) Unknown aspirin Adverse Reaction (Verified 10/08/17 09:09) Vomiting pt states he vomits blood Medications to take at Discharge ALPRAZolam [Xanax] 0.5 mg PO 4X/DAY 10/24/15 Ascorbic Acid [Vitamin C] 1,000 mg PO DAILY 10/24/15 Fosinopril Sodium [Monopril] 10 mg PO DAILY 10/24/15 Garlic 1 mg PO DAILY 10/24/15 Metformin HCl [Glucophage] 1,000 mg PO BIDCM 10/24/15 Multivitamin [Daily Multiple Vitamin] 1 ea PO DAILY 10/24/15 [place]-3 Fatty Acids/Fish Oil [[place] 3 1,000 mg Softgel] 1 ea PO DAILY 10/24/15 Vitamin B Complex 1 ea PO DAILY 10/24/15 Vitamin E 1,000 unit PO DAILY 10/24/15 Metoprolol Tartrate [Lopressor (beta lisa)] 50 mg PO BID #60 tab 10/25/15 Acetaminophen [Tylenol] 500 mg PO Q6H PRN PRN 09/18/17 Cyanocobalamin (Vitamin B-12) [Vitamin B-12] 5,000 mcg SL BID 09/18/17 Gabriella Extract [Gabriella] 1,000 mg PO BID 09/18/17 Methylsulfonylmethane [MSM] 1,500 mg PO TID 09/18/17 Niacinamide 500 mg PO DAILY 09/18/17 Pyridoxine HCl [Vitamin B6] 100 mg PO BID 09/18/17 Sodium Chloride 1 gm PO DAILY 09/18/17 Ubidecarenone [Co Q-10] 200 mg PO DAILY 09/18/17 Vanadyl Sulfate 10 mg PO DAILY 09/18/17 furosemide 40 mg tablet 40 mg PO QDAY #90 tab 09/25/17 simvastatin 40 mg tablet 40 mg PO QPM 09/25/17 Ciprofloxacin [Cipro] 500 mg PO BID #14 tab 10/13/17 Primary Care Physician: Kyleigh Castillo [Primary Care Provider] - Test Results: Test results from this visit will be discussed in further detail at your follow-up appointment, if applicable. Please Follow Up With: Dangelo Alvarado MD When: in 2 weeks, please call to make an appointment.
--- NOTE | 2017-10-13 08:38 | PCM.DC.SUM ---
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 Discharge Diet: Light diet - advance as tolerated Discharge Activity: Return to Normal Activity Home Medications: Medications to take at Discharge ALPRAZolam [Xanax] 0.5 mg PO 4X/DAY 10/24/15 Ascorbic Acid [Vitamin C] 1,000 mg PO DAILY 10/24/15 Fosinopril Sodium [Monopril] 10 mg PO DAILY 10/24/15 Garlic 1 mg PO DAILY 10/24/15 Metformin HCl [Glucophage] 1,000 mg PO BIDCM 10/24/15 Multivitamin [Daily Multiple Vitamin] 1 ea PO DAILY 10/24/15 [place]-3 Fatty Acids/Fish Oil [[place] 3 1,000 mg Softgel] 1 ea PO DAILY 10/24/15 Vitamin B Complex 1 ea PO DAILY 10/24/15 Vitamin E 1,000 unit PO DAILY 10/24/15 Metoprolol Tartrate [Lopressor (beta lisa)] 50 mg PO BID #60 tab 10/25/15 Acetaminophen [Tylenol] 500 mg PO Q6H PRN PRN 09/18/17 Cyanocobalamin (Vitamin B-12) [Vitamin B-12] 5,000 mcg SL BID 09/18/17 Gabriella Extract [Gabriella] 1,000 mg PO BID 09/18/17 Methylsulfonylmethane [MSM] 1,500 mg PO TID 09/18/17 Niacinamide 500 mg PO DAILY 09/18/17 Pyridoxine HCl [Vitamin B6] 100 mg PO BID 09/18/17 Sodium Chloride 1 gm PO DAILY 09/18/17 Ubidecarenone [Co Q-10] 200 mg PO DAILY 09/18/17 Vanadyl Sulfate 10 mg PO DAILY 09/18/17 furosemide 40 mg tablet 40 mg PO QDAY #90 tab 09/25/17 simvastatin 40 mg tablet 40 mg PO QPM 09/25/17 Ciprofloxacin [Cipro] 500 mg PO BID #14 tab 10/13/17 Following Prescrptions Were Given to Patient: Ciprofloxacin [Cipro] 500 mg PO BID #14 tab Primary Care Physician: Kyleigh Castillo [Primary Care Provider] - Please Follow Up With: Dangelo Alvarado MD When: in 2 weeks, please call to make an appointment. Patient Instructions: Transurethral Resection of the Prostate (TURP): Home Recovery Medical Necessity - Tobacco Use Smoking Status: Never smoker Meaningful Use Info Meaningful Use Diagnoses (Choose all that apply): None applicable
--- NOTE | 2017-10-13 08:39 | DCINST_ITS ---
Discharge Diet: Light diet - advance as tolerated Discharge Activity: Return to Normal Activity Instructions: Transurethral Resection of the Prostate (TURP): Home Recovery Allergies/Adverse Reactions: Allergies albuterol Allergy (Verified 10/08/17 09:09) Unknown clonazepam Allergy (Verified 10/08/17 09:09) Unknown ibuprofen Allergy (Verified 10/08/17 09:09) Unknown ipratropium Allergy (Verified 10/08/17 09:09) Unknown aspirin Adverse Reaction (Verified 10/08/17 09:09) Vomiting pt states he vomits blood Medications to take at Discharge ALPRAZolam [Xanax] 0.5 mg PO 4X/DAY 10/24/15 Ascorbic Acid [Vitamin C] 1,000 mg PO DAILY 10/24/15 Fosinopril Sodium [Monopril] 10 mg PO DAILY 10/24/15 Garlic 1 mg PO DAILY 10/24/15 Metformin HCl [Glucophage] 1,000 mg PO BIDCM 10/24/15 Multivitamin [Daily Multiple Vitamin] 1 ea PO DAILY 10/24/15 [place]-3 Fatty Acids/Fish Oil [[place] 3 1,000 mg Softgel] 1 ea PO DAILY 10/24/15 Vitamin B Complex 1 ea PO DAILY 10/24/15 Vitamin E 1,000 unit PO DAILY 10/24/15 Metoprolol Tartrate [Lopressor (beta lisa)] 50 mg PO BID #60 tab 10/25/15 Acetaminophen [Tylenol] 500 mg PO Q6H PRN PRN 09/18/17 Cyanocobalamin (Vitamin B-12) [Vitamin B-12] 5,000 mcg SL BID 09/18/17 Gabriella Extract [Gabriella] 1,000 mg PO BID 09/18/17 Methylsulfonylmethane [MSM] 1,500 mg PO TID 09/18/17 Niacinamide 500 mg PO DAILY 09/18/17 Pyridoxine HCl [Vitamin B6] 100 mg PO BID 09/18/17 Sodium Chloride 1 gm PO DAILY 09/18/17 Ubidecarenone [Co Q-10] 200 mg PO DAILY 09/18/17 Vanadyl Sulfate 10 mg PO DAILY 09/18/17 furosemide 40 mg tablet 40 mg PO QDAY #90 tab 09/25/17 simvastatin 40 mg tablet 40 mg PO QPM 09/25/17 Ciprofloxacin [Cipro] 500 mg PO BID #14 tab 10/13/17 Primary Care Physician: Kyleigh Castillo [Primary Care Provider] - Test Results: Test results from this visit will be discussed in further detail at your follow- up appointment, if applicable. Please Follow Up With: Dangelo Alvarado MD When: in 2 weeks, please call to make an appointment.
[2017-10-13 14:35] VITALS: BP 108/51; PULSE 87; RESP 18; TEMP 36.8; O2SAT 99
== END 2017-10-13 15:08 | disposition home or self-care (01) | DRG 714 ==
LOC: MS3 10-12 08:54 → SDC 10-14 08:33
PROVIDERS: Admitting Provider Urology; Family Provider Internal Medicine Infectious Disease; PCP Internal Medicine Infectious Disease; Visit Provider Urology
PROC: 0VB08ZZ Excision of Prostate, Via Natural or Artificial Opening Endoscopic (ICD-10-PCS; principal; 2017-10-11 10:15)
DX: C61 Malignant neoplasm of prostate (principal); I48.0 Paroxysmal atrial fibrillation; N40.1 Benign prostatic hyperplasia with lower urinary tract symptoms; N32.0 Bladder-neck obstruction; R33.8 Other retention of urine; I10 Essential (primary) hypertension; E78.5 Hyperlipidemia, unspecified; I25.10 Atherosclerotic heart disease of native coronary artery without angina pectoris; Z95.3 Presence of xenogenic heart valve
CPT/HCPCS: 36415; 80048; 82962; 84153; 85027; 88305; 88341; 88342; 97802; J7030; J7120; J2405

== ENCOUNTER 2017-10-16 06:27 | Outpatient (RCR) | payer MEDICARE, BC, OTHER, SELFPAY ==
[2017-09-29 00:48] VITALS: BP 122/62; BP 152/76
--- NOTE | 2017-10-23 11:42 | PCM.CR.ITP ---
General Information - General Information Admitting Diagnosis: AORTIC VALVE REPLACEMANT - Education/Goals Barriers to Learning: Hearing Impairment, Vision Impairment Cardiac Rehabilitation Goals: 1. Maintain the individual as the primary focus of care. 2. To improve the patient's quality of life. 3. Identification of cardiac risk factors and provide cardiac risk factor management. 4. Enhance the psychosocial status of the patient. 5. Reconditioning enough to allow the patient to resume customary activities. 6. Control symptoms of cardiac disease Scale for measuring improvement of personal goals: Enter appropriate number in Comments. 2 = Unchanged. 3 = Slightly Better. 4 = Moderate Improvement. 5 = Met my Goal Personal Goals: Discharge Reassessment: Improve management of stress and emotions, Improve energy level, Participate in home exercise program Exercise - Final/Discharge - Visit Date of Eval: 10/23/17 Session #:: 26 - Stages of Change Stages of Change:: Action - Exercise Prescription Mode:: Treadmill, Airdyne, NuStep Frequency (x/week): 3 Duration:: 30 METs: 4 Target Heart Rate:: 100-108 Max HR 109 - Hypertension Resting Blood Pressure:: 112/60 Peak Exercise Blood Pressure:: 168/60 - Intervention Home Exercise/Activity Goal:: Sitting Time <3 hrs/day - Education Goal Progress: Progressing - Exercise Program Goals Exercise Program Goals: Aerobic Activity >30 min, B/P <130/80 Nutrition - Initial Assessment - Program Goals Nutrition Program Goals: LDL <70. Total Cholesterol <200. HDL >45. Triglycerides <150. HgbA1C <7%. BMI <25 - Diabetes Do you monitor your blood sugar at home?: Yes - two days a week. Nutrition - Final Assessment - Program Goals Nutrition Program Goals: LDL <70. Total Cholesterol <200. HDL >45. Triglycerides <150. HgbA1C <7%. BMI <25 - Visit Date of Eval: 10/23/17 - Stages of Change Stages of Change:: Action - Weight Management Weight:: 86.636 kg - Intervention Referral to dietitian:: No Referral to Diabetic Clinic:: No Will attend diet classes:: Yes - Education Education Goal Reached?: Yes Tobacco - Initial Assessment - Program Goals Tobacco Program Goals: Complete smoking cessation. Attend education classes. Improve Knowledge Test score - Learning Barriers Learning Barriers: Vision, Cognitive - some problems with concentration, Ready to Learn Tobacco - Final Assessment - Program Goals Tobacco Program Goals: Complete smoking cessation. Attend education classes. Improve Knowledge Test score - Stage of Change Stages of Change:: Action - Family Support Do you have family support?: Yes - Tobacco Use Tobacco Use: Non-smoker Do you use smokeless tobacco?: No - Intervention Smoking Cessation Referral:: No Individual Education/Counseling:: No Education Schedule Given:: Yes - Education Education Goal Reached?: Yes Psychosocial - Initial Assess - Target Goals Target Goals: Assess presence or absence of depression. Using a valid screening tool, maximizes coping skills. Positive support system - Psychosocial Test Tool Used:: HANDS Depression Questionnaire - Assistive Devices Fall Risk Assessed:: Yes Psychosocial - Final Assessmen - Target Goals Target Goals: Assess presence or absence of depression. Using a valid screening tool, maximizes coping skills. Positive support system - Stages of Change Stages of Change:: Action - Psychosocial Test Tool Used:: HANDS Depression Questionnaire - Intervention PS - Interventions: Yes Attend Stress Management Classes, Yes Uses Stress Management Skills, No Referral to Mental Health, No Referral to [facility] Case Management, No Referral to Physician Patient Health Questionnaire Discharge Assessment 1. Little interest or pleasure in doing things: Not at all 2. Feeling down, depressed, or hopeless: Not at all 3. Trouble falling or staying asleep, or sleeping too much: Not at all 4. Feeling tired or having little energy: Not at all 5. Poor appetite or overeating: Not at all 6. Feeling bad about yourself -- or that you are a failure or have let yourself or your family down: Not at all 7. Trouble concentrating on things, such as reading the newspaper or watching television: Not at all 8. Moving or speaking so slowly that other people could have noticed. Or the opposite - being so fidgety or restless that you have been moving around a lot more than usual: Not at all 9. Thoughts that you would be better off , or of hurting yourself in some way: Not at all How difficult have these problems made it for you to do your work, take care of things at home, or get along with other people?: Not difficult at all Total Score: 0 IMANI-Q SV Test - Statements CAD is a disease of the arteries in the heart: False Examples of risk factors for heart disease: True Angina is chest pain or discomfort: True The benefits of resistance training include: True Eating more meat and dairy products: False Anti-platelet medications such as aspirin are important: True The only effective way to manage stress: False An exercise warm-up slowly increases heart rate: True Prepared, processed foods usually have high sodium: True Depression is common after a heart attack: True The statin medications lower cholesterol: True To control blood pressure, lower the amount of sodium: True If someone gets chest discomfort during walking: False Transfats are partially hydrogenated vegetable oils: True Sleep apnea that is not treated increases the risk: False To control cholesterol, one should become a vegetarian: False Someone knows if he/she is exercising at the right level: True Diabetes cannot be prevented with exercise & health eating: False Stress is a large risk for heart attack: True A diet that can help lower blood pressure is rich in: True - Total Score Total Correct Responses: 20 Self-Efficacy Discharge Assessment We would like to know how confident you are in doing certain activities. Please select your confidence level for:: Select your confidence level for the following using the scale 1-10 where 1 is not at all confident and 10 is totally confident. Your score is the average of all 6 responses. Fatigue: How confident are you that you can keep the fatigue caused by your disease from interfering with the things you want to do? Select Number: 9 Physical Discomfort or Pain: How confident are you that you can keep the physical discomfort or pain of your disease from interfering with the things you want to do? Select Number: 9 Emotional Distress: How confident are you that you can keep the emotional distress caused by your disease from interfering with the things you want to do? Select Number: 9 Other Symptoms or Health Problems: How confident are you that you can keep other symptoms or health problems from interfering with the things you want to do? Select Number: 9 Different Tasks and Activities: How confident are you that you can do the different tasks and activities needed to manage your health condition so as to reduce your need to see a doctor? Select Number: 9 Medication: How confident are you that you can do things other than just taking medication to reduce how much your illness affects your everyday life? Select Number: 9 Total Score:: 9 Nutrition Survey - Nutrition Survey Instructions Scoring Instructions: Scoring is as follows: Yes = 1 points. No = 0 point. Patient score that is >/=12 is considered to be at potential nutritional risk and could benefit from a referral to a registered dietitian. - Nutrition Survey Discharge Have you lost >10 lbs over the past 2 months without trying?: No Are you following a special diet at home for diabetes, low fat, or low salt?: Yes Are you interested in meeting with a dietitian for help understanding your diet?: No Do you eat less than 3 meals a day?: Yes Do you eat fatty meats (willson, sausage, ribs, etc), fried foods, desserts, large amounts of salad dressings, margarine, butter, or cheese most days?: No Do you have food allergies? [Enter types in comment field]: No Do you eat in restaurants more than 3 times a week?: No Do you season food with salt, seasoning salt, or garlic salt?: No Do you used canned, boxed, frozen meals, or soups, seasoning packets?: No Total Score:: 2
[2017-10-23 11:49] VITALS: BP 112/60; BP 168/60
== END 2017-10-29 23:59 ==
LOC: CR 06:27
PROVIDERS: Family Provider Internal Medicine Infectious Disease; PCP Internal Medicine Infectious Disease
DX: I35.8 Other nonrheumatic aortic valve disorders (principal)
CPT/HCPCS: 93798

== ENCOUNTER → 2017-10-28 08:19 | Outpatient (CLI) | payer MEDICARE, BC, OTHER, SELFPAY ==
--- NOTE | 2017-10-28 08:21 | NM_ITS ---
CLINICAL: 77-year-old male with reported history of carcinoma of the prostate. WHOLE BODY 99m Tc MDP RADIONUCLIDE BONE SCINTIGRAPHY COMPARISON: CT of the abdomen-pelvis report 10/18/2017 FINDINGS: Following the intravenous administration of 25.3 mCi of 99m Tc MDP, whole body bone images reveal: 1. Increased radiopharmaceutical concentration is identified in the left iliac wing, left posterior ilium, right posterior ischium, the right iliac crest, the pubic symphysis, left mid femoral diaphysis, several thoracic and lumbar vertebrae, multiple bilateral ribs. 2. Enhanced tracer concentration is identified in the patellofemoral compartment of the left knee. 3. The remaining skeletal structures are scintigraphically unremarkable with normal-appearing renal images and urinary bladder activity identified. NM/Bone Scan Whole Body IMPRESSION: 1. The increase in radiopharmaceutical concentration identified in the bilateral hemipelvis, left mid femoral diaphysis, thoracic and lumbar spine, right-left anterior and posterior ribs is commensurate with osseous metastatic disease. 2. Degenerative arthritis appears expressed in the left knee. Electronically Signed: Bruno Courtney DO at 21:28 EDT Tel , Service support ,
== END ==
PROVIDERS: Family Provider Internal Medicine Infectious Disease; PCP Internal Medicine Infectious Disease; Visit Provider Urology
DX: C61 Malignant neoplasm of prostate (principal)
CPT/HCPCS: 78306

== ENCOUNTER 2017-10-30 14:06 | Day surgery (SDC) | payer MEDICARE, BC, SELFPAY ==
[2017-10-30] VITALS (7 sets, daily range): BP systolic 135–148; BP diastolic 61–72; PULSE 82–88; RESP 16–18; TEMP 36.4–36.6; O2SAT 93–100; BMI 26.9
[2017-10-30 14:51] LABS: Bedside Glucose 122 mg/dL (70-110)
--- NOTE | 2017-10-30 15:50 | TEST_PTH ---
PATIENT: MATT DURBIN [place] [facility] [id number] AGE/SX: 77/M ROOM: RE10/30/[address]: Dr. Dangelo Alvarado MD : 1940 BED: DIS: 10/30/2017 SPEC #: [id number] RECD: 10/31/17 08:54 STATUS: LILIBETH ELIZABETH #: [id number] KURT: 10/30/17 15:[address]: Dangelo Alvarado DEPT: SURGICAL PATHOLOGY RECD BY: Bruno Sanders ENTERED: 10/31/17 09:37 SP TYPE: TESTICLE OTHR DR: Dr. Kyleigh Castillo MD Tissues: Testis, NOS Procedures: Surgery Specimen Level IV HEADER OPERATION: Bilateral scrotal orchiectomy PRE-OP DIAGNOSIS: Metastatic prostate cancer TISSUE SUBMITTED: Bilateral testicles MICROSCOPIC DIAGNOSIS Bilateral testicles, orchiectomy: Bilateral testicles with focal seminiferous tubules atrophy. Spermatic cord and epididymis, no pathologic diagnosis. SJ:marino 11/01/17 COMMENT Please make reference to previous specimen ([id number]) prostate, TUR with diagnosis of adenocarcinoma. MICROSCOPIC DESCRIPTION Slides are reviewed. GROSS DESCRIPTION Received in fixative is one container labeled with the patient's name and designated bilateral testicles. The specimen consists of bilateral testicles and attached spermatic cord. The testicles are not identified as right or left. One of the testicles measure 6 x 3 x 2.5 cm and attached spermatic cord measures 3.5 cm in length and up to 2 cm in diameter. The specimen weighs 31.6 gm. The epididymis measures 6 x 1 x 1 cm. Sections of testicle reveal yellow-orange parenchyma without any mass lesion. The second testicle measures 4.5 x 3 x 2 cm and attached spermatic cord measures 2.5 x 2 cm and the epididymis measures 4.5 x 1 x 1 cm. The second testicle weighs 22.6 gm. Sections of spermatic cord do not reveal any mass lesion. Sections of the testicle reveal yellow-orange parenchyma without any mass lesion. [place] sections are submitted in six cassettes as follows: 13 ? one testicle (1 ? spermatic cord, 2 ? testicle and epididymis, 3 ? more sections of testis), 46 ? second testicle (4 ? spermatic cord, 5 ? testicle and epididymis, 6 ? more sections of testis). / SJ:rg 10/31/17 TC:5 CPT: 23739 x2
[2017-10-30] MEDS: Cefazolin 2 GM in 0.9% Normal Saline 100 ML IV (18:57)
--- NOTE | 2017-10-30 18:58 | PCM.DC.URO ---
Discharge Diet: Light diet - advance as tolerated Discharge Activity: Return to Normal Activity Call your doctor if your incision/area has: Continuous Slow Oozing, Sudden Increased Bleeding, Increased Pain/ Swelling, Increased Redness, Foul Smelling Discharge, Swelling at the incision site Call your doctor if you observe: Fever of 101 or Higher Additional Instructions: Hold Eliquis for 5 days, then ok to start. Allergies/Adverse Reactions: Allergies albuterol Allergy (Verified 10/29/17 12:10) Unknown clonazepam Allergy (Verified 10/29/17 12:10) Unknown ibuprofen Allergy (Verified 10/29/17 12:10) Unknown ipratropium Allergy (Verified 10/29/17 12:10) Unknown aspirin Adverse Reaction (Verified 10/29/17 12:10) Vomiting pt states he vomits blood Medications to take at Discharge ALPRAZolam [Xanax] 0.5 mg PO 4X/DAY 10/24/15 Ascorbic Acid [Vitamin C] 1,000 mg PO DAILY 10/24/15 Fosinopril Sodium [Monopril] 10 mg PO DAILY 10/24/15 Garlic 1 mg PO DAILY 10/24/15 Metformin HCl [Glucophage] 1,000 mg PO BIDCM 10/24/15 Multivitamin [Daily Multiple Vitamin] 1 ea PO DAILY 10/24/15 Rogers-3 Fatty Acids/Fish Oil [Rogers 3 1,000 mg Softgel] 1 ea PO DAILY 10/24/15 Vitamin B Complex 1 ea PO DAILY 10/24/15 Vitamin E 1,000 unit PO DAILY 10/24/15 Metoprolol Tartrate [Lopressor (beta lisa)] 50 mg PO BID #60 tab 10/25/15 Acetaminophen [Tylenol] 500 mg PO Q6H PRN PRN 09/18/17 Cyanocobalamin (Vitamin B-12) [Vitamin B-12] 5,000 mcg SL BID 09/18/17 Gabriella Extract [Gabriella] 1,000 mg PO BID 09/18/17 Methylsulfonylmethane [MSM] 1,500 mg PO TID 09/18/17 Niacinamide 500 mg PO DAILY 09/18/17 Pyridoxine HCl [Vitamin B6] 100 mg PO BID 09/18/17 Sodium Chloride 1 gm PO DAILY 09/18/17 Ubidecarenone [Co Q-10] 200 mg PO DAILY 06/20/18 Vanadyl Sulfate 10 mg PO DAILY 09/18/17 furosemide 40 mg tablet 40 mg PO QDAY #90 tab 09/25/17 simvastatin 40 mg tablet 40 mg PO QPM 09/25/17 Cholecalciferol (VIT D3) [Vitamin D3] 1,000 unit PO DAILY 10/29/17 Ferrous Sulfate [Iron] 325 mg PO DAILY 10/29/17 Hydrocodone/Acetaminophen [Vicodin 5-300 mg Tablet] 1 tab PO Q6H PRN PRN 7 Days #20 tab 10/30/17 The following prescriptions were given: Hydrocodone/Acetaminophen [Vicodin 5-300 mg Tablet] 1 tab PO Q6H PRN PRN 7 Days #20 tab PRN Reason: Pain Primary Care Physician: Kyleigh Castillo [Primary Care Provider] - Test Results: Test results from this visit will be discussed in further detail at your follow-up appointment, if applicable. Please Follow Up With: Dangelo Alvarado MD When: in 2 weeks, please call to make an appointment.
[2017-10-30] MEDS: Bupivacaine 0.25% 30 ML Vial (19:14)
--- NOTE | 2017-10-30 19:43 | PCM.OPRPT ---
Report of Operation Date of Procedure: 10/30/17 Pre-Operative Diagnosis: Metastatic prostate cancer Post-Operative Diagnosis: Same Surgery/Procedure Performed:: Simple bilateral orchiectomy scrotal approach Description of Surgical Findings:: 77-year-old male recently discovered to have advanced prostate cancer his PSA was 73 bone scan was done that demonstrated positive bony metastatic disease high-grade disease was found in surgery after TURP just recently so today were taken of the surgery to do a simple bilateral orchiectomy for immediate castration to treat his metastatic prostate cancer. 77-year-old male taken back to the operating room after smooth induction of general anesthesia he was placed supine on the table the scrotum was shaved prepped and draped in usual sterile fashion made an incision in the scrotum in the midline raphae about 3 cm long dissected down to the left testicle through the dartos layer and the tunica albuginea layer testicle was then delivered I then used hemostats and suture tie to ligate the testicle after the spermatic cord this was done in individual small blocks after tying this down there was no bleeding from the site. The left testicle was then handed off as specimen I then went to the right testicle open up the dartos layer the tunica albuginea deliver the testicle freed up the cord and then transected the cord with several small hemostats transected through the hemostats and then suture ligated each of the hemostats and the right testicle was delivered. After suture ligating both sides of the cords and left the right side irrigated there is no bleeding good clinical control hemostasis I closed the dartos layer with the running chromic stitch and then closed the skin layer with a running chromic stitch patient anesthetic was reversed taken back to PACU in good condition he will follow-up in 2 weeks for wound check. Type of Anesthesia:: General Drains: none Estimated Blood Loss (mL): 10cc - Admit VTE Documentation VTE Present on Admission: No VTE Mechan Device Prophylaxis: SCD's VTE Pharm Prophylaxis ordered?: No
[2017-10-30] MEDS: HYDROcodone Bitartrate/Apap 5/325 Tablet PO (20:54)
== END 2017-10-30 21:22 | disposition home or self-care (01) ==
LOC: SDC 14:06 → AC 14:19
PROVIDERS: Family Provider Internal Medicine Infectious Disease; PCP Internal Medicine Infectious Disease; Visit Provider Urology
PROC: (CPT 54520; principal; 2017-10-30 15:35)
DX: C61 Malignant neoplasm of prostate (principal); C79.51 Secondary malignant neoplasm of bone; R97.20 Elevated prostate specific antigen [PSA]; K21.9 Gastro-esophageal reflux disease without esophagitis; E78.00 Pure hypercholesterolemia, unspecified; E11.9 Type 2 diabetes mellitus without complications; I10 Essential (primary) hypertension; I48.91 Unspecified atrial fibrillation; Z95.2 Presence of prosthetic heart valve
CPT/HCPCS: 54520; 82962; 88305; 88309; J7120; J2405

== ENCOUNTER → 2017-12-24 14:03 | Outpatient (CLI) | payer MEDICARE, BC, SELFPAY ==
[2017-12-24 15:35] LABS: PSA,Total- Diagnostic 9.79 ng/mL (0.0-4.0)
== END ==
PROVIDERS: Family Provider Internal Medicine Infectious Disease; PCP Internal Medicine Infectious Disease; Referring Provider Urology; Visit Provider Urology
DX: C61 Malignant neoplasm of prostate (principal)
CPT/HCPCS: 36415; 84153

== ENCOUNTER 2018-03-03 18:46 | Emergency (ER) | payer MEDICARE, BC, SELFPAY ==
[2018-03-03 18:47] VITALS: BP 160/84; PULSE 100; RESP 16; TEMP 36.4; O2SAT 95; BMI 26.6
--- NOTE | 2018-03-03 19:49 | ED.DCSUM_ITS ---
- ER Visit Summary Date of Service: 03/03/18 Chief Complaint: Unable to urinate History of Present Illness: The patient is a 77 M for prostate CA and prior procedure for urinary retention. Patient is also history of A. fib he is on blood thinner. Insulin-dependent diabetes and prior orchiectomy. He has seen Dr. Steffen Alvarado. Physical Examination: Well-appearing older male. No acute distress. Vital signs stable afebrile. HEENT exam unremarkable. Neck nontender. Lungs clear to auscultation bilaterally. Heart regular rate and rhythm no murmur. Abdomen soft. Nondistended. Normal bowel sounds no peritoneal signs. I do not feel any suprapubic bladder distention. External exam unremarkable. Circumcised. Moving all 4 extremities. Calves nontender. No edema. Neurologically is awake and alert with no focal motor deficits. Test Results: Bladder scan equals 150 cc. Pt. then voided and bladder scan was again done and was 0. 3 panel shows chronic renal insufficiency with a BUN of 31 and creatinine 2.0 he is been worse than that before. We were unable to obtain a UA. Emergency Department Course and Treatment: Several nurses of trying have been unsuccessful placing Sheffield catheters and coud? catheters. Treatment Plan: I spoke to Dr. Alvarado of urology and he will see the patient tomorrow morning in his office at 9 AM. On repeat exam the patient is doing well at 2207. Disposition: Discharge Impression: Urinary retention and urinary incontinence This note was generated with Proformative dictation software. It may contain incorrect words, spelling, and punctuation that were not noted in review of the chart prior to signing ED Disposition - Plan for ED Patient: Chief Complaint: Complaint Referrals: Kyleigh Castillo [NON-STAFF] -
[2018-03-03 20:24] LABS: Anion Gap 10 (5-15); BUN 31 mg/dL (7-18); BUN/Creat Ratio 15.3 RATIO (10-20); Calcium,Total 10.8 mg/dL (8.5-10.1); Chloride 103 mmol/L (98-107); Creatinine, Serum 2.03 mg/dL (0.70-1.30); EST Glomerular Filtration Rate 34 mL/min (>60); Est Glom Filt Rate - Afr Amer 41 mL/min (>60); Estimated Creatinine Clearance 28.04 ml/min; Glucose 156 mg/dL (74-106); Potassium 4.3 mmol/L (3.5-5.1); Sodium Level 140 mmol/L (136-145)
[2018-03-03 21:19] VITALS: BP 108/74; PULSE 72; RESP 15; O2SAT 94
--- NOTE | 2018-03-03 21:30 | ED.RN ---
PT WAS GIVEN ICE CHIPS. PT WAS INCONTINENT OF URINE. BLADDER SCANNED THE PT AGAIN AND WAS UNABLE TO LOCATE ANY URINE. PHYSICIAN AWARE.
--- NOTE | 2018-03-03 22:11 | ED.DEP ---
ED Disposition - Plan for ED Patient: Disposition: Home or Assisted Living Chief Complaint: Complaint Instructions: ED Retention Urinary Male Referrals: Dangelo Alvarado MD [STAFF PHYSICIAN] - As soon as possible Additional Instructions: Be in Dr Alvarado's on his office tomorrow at 9 AM.
[2018-03-03 22:48] VITALS: BP 118/77; PULSE 64; RESP 17; O2SAT 95
== END 2018-03-03 22:50 | disposition home or self-care (01) ==
PROVIDERS: Emergency Provider Emergency Medicine; Family Provider Internal Medicine; PCP Internal Medicine
DX: R33.9 Retention of urine, unspecified (principal); R11.2 Nausea with vomiting, unspecified; N18.9 Chronic kidney disease, unspecified; R32 Unspecified urinary incontinence; C61 Malignant neoplasm of prostate; I48.91 Unspecified atrial fibrillation; E11.9 Type 2 diabetes mellitus without complications; Z90.79 Acquired absence of other genital organ(s); Z79.4 Long term (current) use of insulin; N40.0 Benign prostatic hyperplasia without lower urinary tract symptoms
CPT/HCPCS: 80048; 99283; A4216

== ENCOUNTER 2018-03-19 11:39 | Day surgery (SDC) | payer MEDICARE, BC, SELFPAY ==
[2018-03-14 15:21] VITALS: BP 132/76; PULSE 90; RESP 18; TEMP 37; O2SAT 96; BMI 26.6
[2018-03-14 16:05] LABS: International Normalized Ratio 1.3; Prothrombin Time (Protime)PT. 16.4 SECONDS (11.7-14.9)
[2018-03-14 16:06] LABS: Absolute Lymphocyte Count 2.23 X10^3/ul (0.83-4.51); Absolute Neutrophil Count 4.6 X10^3/uL (2.0-7.7); Basophil# 0.02 X10^3/uL; Basophil% 0.3 % (0-1); Eosinophil# 0.04 X10^3/uL; Eosinophils% 0.5 % (0-5); Hematocrit 33.4 % (40-54); Lymphocyte # 2.23 X10^3/ul (4.0); Lymphocyte % 28.6 % (19-41); Mean Corp Hgb Conc 32.9 g/gl (32-36); Mean Corpuscular Hgb 30.3 pg (27.0-32.0); Mean Platelet Vol. 8.9 fl (6.2-12.0); Monocyte# 0.87 X10^3/uL; Monocyte% 11.1 % (0-10); Neutrophil # 4.62 X10^3/uL (2.7-7.7); Neutrophil % 59.1 % (47-70); Platelet Count 322 K/mm3 (150-450); RBC Distribution Width CV 13.4 % (11.6-14.6); RBC Distribution Width SD 45.1 fl (35.1-43.9); Red Blood Count 3.63 M/mm3 (4.6-6.2); White Blood Count 7.8 K/mm3 (4.4-11.0)
[2018-03-14 16:07] LABS: POSITIVE COUNT NO; POSITIVE DIFFERENTIAL NO; POSITIVE MORPHOLOGY NO
[2018-03-14 16:31] LABS: AST(SGOT) 30 U/L (15-37); Alanine Aminotransfer ALT/SGPT 22 U/L (16-61); Albumin, Serum 3.2 g/dL (3.2-5.0); Alkaline Phosphatase 104 U/L (45-117); Bilirubin, Direct 0.12 mg/dL (0.00-0.30); Protein, Total 7.2 g/dL (6.4-8.2)
[2018-03-14 16:40] LABS: Hemoglobin A1c 7.3 % (4.2-6.3)
[2018-03-19 12:02] VITALS: BP 118/57; PULSE 73; RESP 16; TEMP 36.7; O2SAT 98; BMI 26.6
[2018-03-19 12:50] LABS: Bedside Glucose 148 mg/dL (70-110)
--- NOTE | 2018-03-19 13:25 | PROS_PTH ---
PATIENT: MATT DURBIN [place] [facility] [place][id number] AGE/SX: 77/M ROOM: RE03/19/[address]: Dr. Dangelo Alvarado MD : 1940 BED: DIS: 03/19/2018 SPEC #: [id number] RECD: 03/19/18 14:37 STATUS: LILIBETH RETeodoro #: [id number] KURT: 03/19/18 13:[address]: Dangelo Alvarado DEPT: SURGICAL PATHOLOGY RECD BY: Bruno Sanders ENTERED: 03/20/18 12:52 SP TYPE: TURP OTHR DR: Dr. Amber Hyatt MD Tissues: Prostate, NOS Procedures: Surgery Specimen Level IV HEADER OPERATION: Cysto, transurethral resection bladder neck with Olympus PRE-OP DIAGNOSIS: Bladder neck contracture TISSUE SUBMITTED: Prostate tissue MICROSCOPIC DIAGNOSIS Prostate, TUR: Prostatic adenocarcinoma. See cancer summary below. SJ:marino 03/21/18 PROSTATE CANCER (TUR) SUMMARY: Procedure - transurethral prostatic resection Specimen weight - 0.6 gm Histologic type - adenocarcinoma Histologic grade (Creole Pattern): Primary (predominant) pattern - 5 Secondary (worst remaining) pattern - 4 Total Creole score - 9 Tumor Quantitation (TUR specimens): Proportion (%) of prostatic tissue involved by tumor - ~20% Number of positive chips - 3 Total number of chips - 6 Periprostatic fat invasion - not applicable Seminal vesicle invasion - not applicable Lymph-Vascular invasion - not present Perineural invasion - present, focal Additional pathologic findings - chronic inflammation. The above summary is in compliance with [employer] of [place] [employer] (CAP) Cancer Protocols Checklist and [place] Joint Committee on Cancer (AJCC), Staging Manual, 8th Ed. COMMENT Please make reference to previous specimen ([id number]) prostate, TUR with diagnosis of adenocarcinoma. MICROSCOPIC DESCRIPTION Slides are reviewed. GROSS DESCRIPTION Received is one container labeled with the patient's name and designated prostate tissue. The specimen consists of multiple irregular fragments of pink-dutton, rubbery, soft tissue that in aggregate weigh 0.6 gm and measure in aggregate 2 x 2 x 0.2 cm. The specimen is totally submitted in one cassette. / AM:marino 03/20/18 TC:0 CPT: 96079
[2018-03-19] MEDS: Cefazolin 2 GM in 0.9% Normal Saline 100 ML IV (13:32)
--- NOTE | 2018-03-19 13:43 | PCM.DC.URO ---
Discharge Diet: Light diet - advance as tolerated Discharge Activity: Return to Normal Activity Call your doctor if you observe: Fever of 101 or Higher Suture Line Care: Avoid Pulling/Pushing, Avoid Pinching/Bending Catheter: Sheffield to leg bag, Sheffield to large bag Drain: [place] Allergies/Adverse Reactions: Allergies albuterol Allergy (Verified 03/14/18 15:04) Unknown clonazepam Allergy (Verified 03/14/18 15:04) Unknown ibuprofen Allergy (Verified 03/14/18 15:04) Unknown ipratropium Allergy (Verified 03/14/18 15:04) Unknown aspirin Adverse Reaction (Verified 03/14/18 15:04) Vomiting pt states he vomits blood Medications to take at Discharge ALPRAZolam [Xanax] 0.5 mg PO 4X/DAY 10/24/15 Ascorbic Acid [Vitamin C] 1,000 mg PO DAILY 10/24/15 Fosinopril Sodium [Monopril] 10 mg PO DAILY 10/24/15 Garlic 1 mg PO DAILY 10/24/15 Metformin HCl [Glucophage] 1,000 mg PO BIDCM 10/24/15 Multivitamin [Daily Multiple Vitamin] 1 ea PO DAILY 10/24/15 Cleveland-3 Fatty Acids/Fish Oil [[place] 3 1,000 mg Softgel] 1 ea PO DAILY 10/24/15 Vitamin B Complex 1 ea PO DAILY 10/24/15 Vitamin E 1,000 unit PO DAILY 10/24/15 Metoprolol Tartrate [Lopressor (beta lisa)] 50 mg PO BID #60 tab 10/25/15 Acetaminophen [Tylenol] 500 mg PO Q6H PRN PRN 09/18/17 Cyanocobalamin (Vitamin B-12) [Vitamin B-12] 5,000 mcg SL BID 09/18/17 Gabriella Extract [Gabriella] 1,000 mg PO BID 09/18/17 Methylsulfonylmethane [MSM] 1,500 mg PO TID 09/18/17 Niacinamide 500 mg PO DAILY 09/18/17 Pyridoxine HCl [Vitamin B6] 100 mg PO BID 09/18/17 Sodium Chloride 1 gm PO DAILY 09/18/17 Ubidecarenone [Co Q-10] 200 mg PO DAILY 09/18/17 Vanadyl Sulfate 10 mg PO DAILY 09/18/17 furosemide 40 mg tablet 40 mg PO QDAY #90 tab 09/25/17 simvastatin 40 mg tablet 40 mg PO QPM 09/25/17 Cholecalciferol (VIT D3) [Vitamin D3] 1,000 unit PO DAILY 10/29/17 Ferrous Sulfate [Iron] 325 mg PO DAILY 10/29/17 Cephalexin [Keflex] 500 mg PO Q8 #15 cap 10/30/17 Hydrocodone/Acetaminophen [Vicodin 5-300 mg Tablet] 1 tab PO Q6H PRN PRN 7 Days #20 tab 10/30/17 Apixaban [Eliquis] 5 mg PO BID 03/14/18 Duloxetine Hcl [Cymbalta] 30 mg pe PO DAILY 03/14/18 Acetaminophen [Tylenol Extra Strength] 500 mg PO Q4H PRN PRN #20 tablet 03/19/18 Ciprofloxacin [Cipro] 500 mg PO BID #10 tablet 03/19/18 Lisinopril [Zestril] 5 mg PO DAILY 03/19/18 The following prescriptions were given: Acetaminophen [Tylenol Extra Strength] 500 mg PO Q4H PRN PRN #20 tablet PRN Reason: Pain Ciprofloxacin [Cipro] 500 mg PO BID #10 tablet Primary Care Physician: Amber Hyatt [Primary Care Provider] - Test Results: Test results from this visit will be discussed in further detail at your follow-up appointment, if applicable. Please Follow Up With: Dangelo Alvarado MD When: in 2 weeks, please call to make an appointment.
--- NOTE | 2018-03-19 14:00 | OP.PCM_ITS ---
Report of Operation Date of Procedure: 03/19/18 Pre-Operative Diagnosis: Bladder cancer and history of prior TURP for urinary retention formation of a bladder neck contracture Post-Operative Diagnosis: Same Surgery/Procedure Performed:: Transurethral resection of the bladder neck contracture Description of Surgical Findings:: 77-year-old male who was found to have prostate cancer earlier this year he underwent resection of a large prostate with obstruction he initially did really well with good control of his bladder good emptying but then started having more problems with retention of urine incomplete emptying urinary incontinence cysto scopy was done he was found to have a pinpoint closed up bladder neck after TURP several months ago. In the office a place a catheter now he comes back to the operating room for definitive resection of the bladder neck contracture and placement of the larger catheter. 77-year-old male taken back to the operating room at the smooth induction of general anesthesia he was placed supine on the table, penis and testicles were prepped and draped in usual sterile fashion, he had prior orchiectomy, penis was draped in usual fashion, went into the bladder and the urethra with a 24 Bulgarian noncontinuous flow resectoscope, went pectus past the sphincter identify the verumontanum and he had a pipe like bladder contracture going from the sphincter into the bladder. It had been dilated in the office. I then switched over to the small loop resectoscope and with with resection I resected the bladder neck from the 3:00 to the 6:00 to the 9:00 did not resect any anterior tissue after resection the bladder neck had a nice open channel cauterized to obtain hemostasis and then the tissue that was resected was sent off as a specimen and then I placed a 20 Bulgarian catheter into the bladder will leave the catheter in place for 2 weeks we will see him in the office for 2 weeks to remove the catheter. Patient anesthetic is currently being reversed. Type of Anesthesia:: General Drains: 20 fr crump - Admit VTE Documentation VTE Present on Admission: No VTE Mechan Device Prophylaxis: SCD's
[2018-03-19 14:08] VITALS: BP 117/61; BP 118/57; PULSE 78; RESP 16; TEMP 36.4; O2SAT 94
[2018-03-19 14:15] VITALS: BP 115/54; BP 118/57; PULSE 78; RESP 16; O2SAT 95
[2018-03-19 14:30] VITALS: BP 118/57; BP 118/61; PULSE 77; RESP 16; O2SAT 94
[2018-03-19 14:45] VITALS: BP 118/57; BP 124/60; PULSE 77; RESP 16; TEMP 36.4; O2SAT 97
[2018-03-19 14:46] LABS: Bedside Glucose 95 mg/dL (70-110)
[2018-03-19 15:54] VITALS: BP 118/57; BP 130/60; PULSE 78; RESP 18; TEMP 36.8; O2SAT 96
--- OUTSIDE RECORDS SUMMARY | 2018-06-20 15:49 | XMS RPT_ITS ---
:1940 Author Organization OHIP Support Name Relationship Address Phone NOT GIVEN Unavailable Unavailable Unavailable NOT GIVEN Unavailable Unavailable Unavailable NOT GIVEN Unavailable Unavailable Unavailable NOT GIVEN Unavailable Unavailable Unavailable DURBIN, ALISE Unavailable Unavailable + [place] [address] R Unavailable Unavailable Unavailable DURBIN, ALISE Unavailable Unavailable + [place] [address] R Unavailable Unavailable Unavailable DURBIN, ALISE Unavailable [address] + [place] [address] R Unavailable Unavailable Unavailable DURBIN, ALISE Unavailable [address] + [place] [address] R Unavailable Unavailable Unavailable DURBIN, ALISE Unavailable [address] + [place] [address] R Unavailable Unavailable Unavailable DURBIN, ALISE Unavailable Unavailable + [place] [address] R Unavailable Unavailable Unavailable DURBIN, ALISE Unavailable Unavailable + [place] [address] R Unavailable Unavailable Unavailable DURBIN, ALISE Unavailable Unavailable + [place] [address] R Unavailable Unavailable Unavailable DURBIN, ALISE Unavailable Unavailable + [place] [address] R Unavailable Unavailable Unavailable DURBIN, ALISE Unavailable [address] + [place] [address] R Unavailable Unavailable Unavailable DURBIN, ALISE Unavailable [address] + [place] [address] R Unavailable Unavailable Unavailable DURBIN, ALISE Unavailable Unavailable + R Unavailable Unavailable Unavailable DURBIN, ALISE Unavailable [address] + [place] [address] R Unavailable Unavailable Unavailable DURBIN, ALISE Unavailable [address] + [place] [address] R Unavailable Unavailable Unavailable DURBIN, ALISE Unavailable [address] + [place] [address] R Unavailable Unavailable Unavailable DURBIN, ALISE Unavailable [address] + [place] [address] R Unavailable Unavailable Unavailable DURBIN, ALISE Unavailable [address] + [place] [address] R Unavailable Unavailable Unavailable DURBIN, ALISE Unavailable Unavailable + R Unavailable Unavailable Unavailable DURBIN, ALISE Unavailable Unavailable + R Unavailable Unavailable Unavailable DURBIN, ALISE Unavailable Unavailable + R Unavailable Unavailable Unavailable DURBIN, ALISE Unavailable Unavailable + R Unavailable Unavailable Unavailable DURBIN, ALISE Unavailable Unavailable + R Unavailable Unavailable Unavailable Care Team Providers Name Role Phone KYLEIGH CARRASCO MD Admitting Unavailable KYLEIGH CARRASCO MD Attending Unavailable KYLEIGH CARRASCO MD Primary Care Unavailable KYLEIGH CARRASCO MD Consulting Unavailable PROVIDER, UNKNOWN Consulting Unavailable PROVIDER, UNKNOWN Consulting Unavailable PROVIDER, UNKNOWN Consulting Unavailable KYLEIGH CARRASCO MD Admitting Unavailable KYLEIGH CARRASCO MD Attending Unavailable KYLEIGH CARRASCO MD Primary Care Unavailable KYLEIGH CARRASCO MD Consulting Unavailable PROVIDER, UNKNOWN Consulting Unavailable PROVIDER, UNKNOWN Consulting Unavailable PROVIDER, UNKNOWN Consulting Unavailable KYLEIGH CARRASCO MD Admitting Unavailable KYLEIGH CARRASCO MD Attending Unavailable KYLEIGH CARRASCO MD Primary Care Unavailable KYLEIGH CARRASCO MD Consulting Unavailable PROVIDER, UNKNOWN Consulting Unavailable PROVIDER, UNKNOWN Consulting Unavailable PROVIDER, UNKNOWN Consulting Unavailable MONICA HYATT MD Admitting Unavailable MONICA HYATT MD Attending Unavailable MONICA HYATT MD Primary Care Unavailable KYLEIGH CARRASCO MD Consulting Unavailable PROVIDER, UNKNOWN Consulting Unavailable PROVIDER, UNKNOWN Consulting Unavailable PROVIDER, UNKNOWN [facility] Referring Unavailable KYLEIGH CARRASCO [facility] Att[facility] Unavailable DARCY JONES Referring Unavailable KYLEIGH CARRASCO [facility] Att[facility] DARCY JONES Referring Unavailable OMRAN, YASSER [facility] DARCY JONES Referring Unavailable OMRAN, YASSER Primary Care Unavailable Pee, Lucas Attending Unavailable Pee, Wheatcroft Referring Unavailable OMRAN, YASSER Primary Care Unavailable Imamura, Yoichi Admitting Unavailable Christiano, Justino Consulting Unavailable White, Rosalia Attending Unavailable Thomas, Isa Consulting Unavailable Imamura, Yoichi Admitting Unavailable OMRAN, YASSER Primary Care Unavailable Christiano, Justino Consulting Unavailable David Addison Attending Unavailable Thomas, Isa Consulting Unavailable Imamura, Yoichi Consulting Unavailable Imamura, Yoichi Admitting Unavailable White, Rosalia Attending Unavailable OMRAN, YASSER Primary Care Unavailable Christiano, Justino Consulting Unavailable Thomas, Isa Consulting Unavailable White, Rosalia Consulting Unavailable Imamura, Yoichi Admitting Unavailable White, Rosalia Attending Unavailable OMRAN, YASSER Primary Care Unavailable Christiano, Justino Consulting Unavailable Thomas, Isa Consulting Unavailable White, Rosalia Consulting Unavailable Selena Rice Attending Unavailable Pee, Lucas Attending Unavailable OMRAN, YASSER Referring Unavailable OMRAN, YASSER [facility] Att[facility] Unavailable DARCY JONES Referring Unavailable OMRAN, YASSER Primary Care Unavailable Christiano, Justino Attending Unavailable Christiano, Justino Referring Unavailable OMRAN, YASSER Primary Care Unavailable Christiano, Justino Attending Unavailable Christiano, Justino Referring Unavailable OMRAN, YASSER Primary Care Unavailable Christiano, Justino Admitting Unavailable Christiano, Justino Attending Unavailable Christiano, Justino Referring Unavailable OMRAN, YASSER Primary Care Unavailable Pee, Wheatcroft Attending Unavailable Christiano, Justino Attending Unavailable OMRAN, YASSER Primary Care Unavailable Christiano, Justino Referring [facility] Att[facility] Unavailable DARCY JONES Referring Unavailable OMRAN, YASSER Primary Care Unavailable Pee, Wheatcroft Attending Unavailable Christiano, Justino Referring Unavailable Christiano, Justino Attending Unavailable Christiano, Justino Referring Unavailable OMRAN, YASSER Primary Care Unavailable Norbert Amezcua Attending Unavailable LATOUF, BUTROS Primary Care Unavailable Christiano, Justino Attending Unavailable Christiano, Justino Referring Unavailable LATOUF, BUTROS Primary Care Unavailable PROBLEMS PROBLEMS DATE TYPE CONDITION / CODE ATTENDING STATUS SOURCE Principle Type 2 diabetes MONICA HYATT Active [facility] Diagnosis mellitus without MD Dawn complications / Hospital E119(ICD-10) Repository Secondary Hyperlipidemia, MONICA HYATT Active [facility] 9 Diagnosis unspecified / MD Dawn E785(ICD-10) Hospital Repository Secondary Essential (primary) MONICA HYATT Active [facility] Diagnosis hypertension / [facility] I10(ICD-10) Hospital Repository Secondary Mixed hyperlipidemia / KYLEIGH CARRASCO Active [facility] 9 Diagnosis E782(ICD-10) [facility] Hospital Repository Unknown 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 / [facility] N32.0(ICD-10) Hospital Repository Unknown R33.9 - Retention of Amezcua, Active [place] 8 urine, unspecified / [facility] R33.9(ICD-10) Hospital Repository Unknown C61 - Malignant ChristianoDangelo huitron Active [place] 8 neoplasm of prostate / [facility] C61(ICD-10) Hospital Repository Unknown 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 / Hospital I35.8(ICD-10) Repository Unknown Z01.810 - Encounter Pee, [place] Active [place] 8 for preprocedural [facility] cardiovascular Hospital examination / Repository Z01.810(ICD-10) Unknown I48.0 - Paroxysmal Pee, Lucas Active [place] 8 atrial fibrillation / Community I48.0(ICD-10) Hospital Repository Unknown 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, [place]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 Community / Z95.3(ICD-10) Hospital Repository Unknown I10 - Essential Pee, [place] Active [place] 8 (primary) hypertension Community / I10(ICD-10) Hospital Repository Unknown E78.5 - Pee, Lucas Active [place] 8 Hyperlipidemia, Community unspecified / Hospital E78.5(ICD-10) Repository Unknown N17.9 - Acute kidney White, Rosalia Active [place] 8 failure, unspecified / Community N17.9(ICD-10) Hospital Repository Unknown I48.91 - Unspecified Pee, Lucas Active [place] 8 atrial fibrillation / Community I48.91(ICD-10) Hospital Repository Unknown R94.31 - Abnormal Pee, [place] Active [place] 8 electrocardiogram Community [ECG] [EKG] / Hospital R94.31(ICD-10) Repository Unknown 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[facility], [place]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 Community / Z95.2(ICD-10) Hospital Repository PROCEDURES PROCEDURES No Procedure Records FoundRESULTS RESULTS BEDSIDE GLUCOSE Collected: 03/19/2018 Status: F Source: [place] 2:42 PM [facility] REPOSITORY TYPE CODE TESTS RESULT OUT OF RANGE REFERENCE UNITS LAB L501.080 70-110 mg/dL Normal BEDSIDE GLU 95 Result Comment: MANAGEMENT OF PATIENT CARE PER NURSING PROTOCOL Performed By: #### L501.080 #### [facility] Point of Care [address] [place] [address] OPERATIVE REPORT Observed: 03/19/2018 Status: F Source: [place] 2:00 [facility] REPOSITORY [facility] Medical Records Department [address] [place] [address] Operative Report 03/19/18 1357 MR#: [id number] Acct: [id number] Name: PRESTON DURBIN Nilson Rep #: [id number] : 1940 77 From: Dangelo Alvarado MD PCP: Monica Hyatt Status: REG [facility] Y Location: [place] [address] Report of Operation Date of Procedure: 03/19/18 Pre-Operative Diagnosis: Bladder cancer and history of prior TURP for urinary retention formation of a bladder neck contracture Post-Operative Diagnosis: Same Surgery/Procedure Performed:: Transurethral resection of the bladder neck contracture Description of Surgical Findings:: 77-year-old male who was found to have prostate cancer earlier this year he underwent resection of a large prostate with obstruction he initially did really well with good control of his bladder good emptying but then started having more problems with retention of urine incomplete emptying urinary incontinence cystoscopy was done he was found to have a pinpoint closed up bladder neck after TURP several months ago. In the office a place a catheter now he comes back to the operating room for definitive resection of the bladder neck contracture and placement of the larger catheter. 77-year-old male taken back to the operating room at the smooth induction of general anesthesia he was placed supine on the table, penis and testicles were prepped and draped in usual sterile fashion, he had prior orchiectomy, penis was draped in usual fashion, went into the bladder and the urethra with a 24 [place] noncontinuous flow resectoscope, went pectus past the sphincter identify the verumontanum and he had a pipe like bladder contracture going from the sphincter into the bladder. It had been dilated in the office. I then switched over to the small loop resectoscope and with with resection I resected the bladder neck from the 3:00 to the 6:00 to the 9:00 did not resect any anterior tissue after resection the bladder neck had a nice open channel cauterized to obtain hemostasis and then the tissue that was resected was sent off as a specimen and then I placed a 20 [place] catheter into the bladder will leave the catheter in place for 2 weeks we will see him in the office for 2 weeks to remove the catheter. Patient anesthetic is currently being reversed. Type of Anesthesia:: General Drains: 20 fr crump - Admit VTE Documentation VTE Present on Admission: No VTE Mechan Device Prophylaxis: SCD's 03/19/18 1400 <Electronically signed by Dangelo Alvarado MD> Date Dangelo Alvarado MD CC: Monica Hyatt; Dangelo Alvarado MD Signed DISCHARGE INSTRUCTION Observed: 03/19/2018 Status: F Source: [place] 1:43 PM [facility] REPOSITORY [facility] Medical Records Department [address] [place] [address] Instructions for Home/Discharge Instructions 03/19/18 1343 MR#: [id number] Acct: [id number] Name: PRESTON DURBIN Rep #: [id number] : 1940 77 From: Dangelo Alvarado MD PCP: Monica Hyatt Status: REG [facility] Discharge Diet: Light diet - advance as tolerated Discharge Activity: Return to Normal Activity Call your doctor if you observe: Fever of 101 or Higher Suture Line Care: Avoid Pulling/Pushing, Avoid Pinching/Bending Catheter: Crump to leg bag, Crump to large bag Drain: [place] Allergies/Adverse Reactions: Allergies albuterol Allergy (Verified 03/14/18 15:04) Unknown clonazepam Allergy (Verified 03/14/18 15:04) Unknown ibuprofen Allergy (Verified 03/14/18 15:04) Unknown ipratropium Allergy (Verified 03/14/18 15:04) Unknown aspirin Adverse Reaction (Verified 03/14/18 15:04) Vomiting pt states he vomits blood Medications to take at Discharge ALPRAZolam [Xanax] 0.5 mg PO 4X/DAY 10/24/15 Ascorbic Acid [Vitamin C] 1,000 mg PO DAILY 10/24/15 Fosinopril Sodium [Monopril] 10 mg PO DAILY 10/24/15 Garlic 1 mg PO DAILY 10/24/15 Metformin HCl [Glucophage] 1,000 mg PO BIDCM 10/24/15 Multivitamin [Daily Multiple Vitamin] 1 ea PO DAILY 10/24/15 Orion-3 Fatty Acids/Fish Oil [Orion 3 1,000 mg Softgel] 1 ea PO DAILY 10/24/15 Vitamin B Complex 1 ea PO DAILY 10/24/15 Vitamin E 1,000 unit PO DAILY 10/24/15 Metoprolol Tartrate [Lopressor (beta lisa)] 50 mg PO BID #60 tab 10/25/15 Acetaminophen [Tylenol] 500 mg PO Q6H PRN PRN 09/18/17 Cyanocobalamin (Vitamin B-12) [Vitamin B-12] 5,000 mcg SL BID 09/18/17 Gabriella Extract [Gabriella] 1,000 mg PO BID 09/18/17 Methylsulfonylmethane [MSM] 1,500 mg PO TID 09/18/17 Niacinamide 500 mg PO DAILY 09/18/17 Pyridoxine HCl [Vitamin B6] 100 mg PO BID 09/18/17 Sodium Chloride 1 gm PO DAILY 09/18/17 Ubidecarenone [Co Q-10] 200 mg PO DAILY 09/18/17 Vanadyl Sulfate 10 mg PO DAILY 09/18/17 furosemide 40 mg tablet 40 mg PO QDAY #90 tab 09/25/17 simvastatin 40 mg tablet 40 mg PO QPM 09/25/17 Cholecalciferol (VIT D3) [Vitamin D3] 1,000 unit PO DAILY 10/29/17 Ferrous Sulfate [Iron] 325 mg PO DAILY 10/29/17 Cephalexin [Keflex] 500 mg PO Q8 #15 cap 10/30/17 Hydrocodone/Acetaminophen [Vicodin 5-300 mg Tablet] 1 tab PO Q6H PRN PRN 7 Days #20 tab 10/30/17 Apixaban [Eliquis] 5 mg PO BID 03/14/18 Duloxetine Hcl [Cymbalta] 30 mg pe PO DAILY 03/14/18 Acetaminophen [Tylenol Extra Strength] 500 mg PO Q4H PRN PRN #20 tablet 03/19/18 Ciprofloxacin [Cipro] 500 mg PO BID #10 tablet 03/19/18 Lisinopril [Zestril] 5 mg PO DAILY 03/19/18 The following prescriptions were given: Acetaminophen [Tylenol Extra Strength] 500 mg PO Q4H PRN PRN #20 tablet PRN Reason: Pain Ciprofloxacin [Cipro] 500 mg PO BID #10 tablet Primary Care Physician: Monica Hyatt [Primary Care Provider] - Test Results: Test results from this visit will be discussed in further detail at your follow-up appointment, if applicable. Please Follow Up With: Dangelo Alvarado MD When: in 2 weeks, please call to make an appointment. 03/19/18 1343 <Electronically signed by Dangelo Alvarado MD> Date Dangelo Alvarado MD CC: Monica Hyatt PROSTATE, TUR Observed: 03/19/2018 Status: F Source: [place] 1:25 PM [facility] REPOSITORY Patient: PRESTON DURBIN : 1940 (77/M) Acct Num: [id number] Phys: Dangelo Alvarado MD Unit Num: [id number] Loc: [facility] Specimen: [id number] Received: 03/19/18 - 1437 Spec Type: TURP TISSUES 1 TISSUES: Prostate, NOS COMMENT Please make reference to previous specimen ([id number]) prostate, TUR with diagnosis of adenocarcinoma. GROSS DESCRIPTION Received is one container labeled with the patient's name and designated prostate tissue. The specimen consists of multiple irregular fragments of pink-dutton, rubbery, soft tissue that in aggregate weigh 0.6 gm and measure in aggregate 2 x 2 x 0.2 cm. The specimen is totally submitted in one cassette. / AM:marino 03/20/18 TC:0 CPT: 67075 HEADER OPERATION: Cysto, transurethral resection bladder neck with Olympus PRE-OP DIAGNOSIS: Bladder neck contracture TISSUE SUBMITTED: Prostate tissue MICROSCOPIC DESCRIPTION Slides are reviewed. MICROSCOPIC DIAGNOSIS Prostate, TUR: Prostatic adenocarcinoma. See cancer summary below. SJ:marino 03/21/18 PROSTATE CANCER (TUR) SUMMARY: Procedure - transurethral prostatic resection Specimen weight - 0.6 gm Histologic type - adenocarcinoma Histologic grade ([place] Pattern): Primary (predominant) pattern - 5 Secondary (worst remaining) pattern - 4 Total Gonzalo score - 9 Tumor Quantitation (TUR specimens): Proportion (%) of prostatic tissue involved by tumor - ~20% Number of positive chips - 3 Total number of chips - 6 Periprostatic fat invasion - not applicable Seminal vesicle invasion - not applicable Lymph-Vascular invasion - not present Perineural invasion - present, focal Additional pathologic findings - chronic inflammation. The above summary is in compliance with [employer] (CAP) Cancer Protocols Checklist and [place] Joint Committee on Cancer (AJCC), Staging Manual, 8th Ed. PSA RESULTS 1 Date Time Test Result Flag (u) Normal Range 12/24/17 1412 PSA, DIAGNOSTIC 9.79 H 0.0-4.0 ng/mL 1 This test was performed using the TPSA assay method for the [employer] chemistry system. Values obtained with different assay methods cannot be used interchangably. When changing PSA assays in the course of monitoring a patient, additional sequential testing should be carried out to confirm baseline values. Signed Pradeep Roberts MD 03/21/18 <signature on file> Performed By: #### PPROS #### [facility] [address] [place], [place], [address] BEDSIDE GLUCOSE Collected: 03/19/2018 Status: F Source: [place] 12:11 PM [facility] REPOSITORY TYPE CODE TESTS RESULT OUT OF REFERENCE UNITS RANGE LAB L501.080 70-110 mg/dL High BEDSIDE GLU 148 Result Comment: MANAGEMENT OF PATIENT CARE PER NURSING PROTOCOL Performed By: #### L501.080 #### [facility] Point of Care [address] [place] [address] CBC W/DIFF, AUTOMATED Collected: 03/14/2018 Status: F Source: [place] 3:49 PM [facility] REPOSITORY TYPE CODE TESTS RESULT OUT OF RANGE REFERENCE UNITS LAB L100.1000 4.4-11.0 K/mm3 Normal WBC 7.8 LAB L100.1200 4.6-6.2 M/mm3 Low RBC 3.63 LAB L100.1300 13.0-16.5 g/dl Low HGB 11.0 LAB L100.1400 40-54 % Low HCT 33.4 LAB L100.1500 80-94 fL Normal MCV 92.0 LAB L100.1600 27.0-32.0 pg Normal MCH 30.3 LAB L100.1700 32-36 g/gl Normal MCHC 32.9 LAB L100.1810 11.6-14.6 % Normal RDW CV 13.4 LAB L100.1820 35.1-43.9 fl High RDW SD 45.1 LAB L100.1900 150-450 K/mm3 Normal PLT 322 LAB L100.2000 6.2-12.0 fl Normal MPV 8.9 LAB L100.2100 47-70 % Normal NEUT% 59.1 LAB L100.2200 19-41 % Normal LY% 28.6 LAB L100.2300 0-10 % High MONO% 11.1 LAB L100.2400 0-5 % Normal EO% 0.5 LAB L100.2500 0-1 % Normal BASO% 0.3 LAB L100.2550 0.0-0.9 % Normal IM GRAN % 0.400 Result Comment: IG% - Immature Granulocytes (promyelocytes, myelocytes and metamyelocytes) > 1% indicates that a LEFT SHIFT is Present. LAB L100.2620 2.0-7.7 X10 3/uL Normal Absolute Neut 4.6 LAB L100.2720 0.83-4.51 X10 3/ul Normal Absolute Lymph 2.23 Performed By: #### L100.0100, L500.3400 #### [facility] [address] [place], [place], [id number] LIVER PROFILE Collected: 03/14/2018 Status: F Source: [place] 3:49 PM [facility] REPOSITORY TYPE CODE TESTS RESULT OUT OF RANGE REFERENCE UNITS LAB L501.1500 6.4-8.2 g/dL Normal T PROT 7.2 LAB L501.1800 3.2-5.0 g/dL Normal ALB 3.2 LAB L501.1950 2.2-4.2 g/dL Normal GLOB 4.0 LAB L501.4100 15-37 U/L Normal AST 30 LAB L501.4305 45-117 U/L Normal ALK P 104 LAB L501.4405 16-61 U/L Normal ALT 22 LAB L501.4600 0.20-1.00 mg/dL Normal T BILI 0.30 LAB L501.4700 0.00-0.30 mg/dL Normal D BILI 0.12 Performed By: #### L100.0100, L500.3400 #### [facility] [address] [facility] [place], [place], [id number] PROTHROMBIN TIME W/INR Collected: 03/14/2018 Status: F Source: [place] 3:49 PM [facility] REPOSITORY TYPE CODE TESTS RESULT OUT OF RANGE REFERENCE UNITS LAB L300.4150 11.7-14.9 SECONDS High PROTIME 16.4 LAB L300.4200 Normal INR 1.3 Performed By: #### L300.3900, L300.4310, L501.9985 #### [facility] [address] [place], [place], [id number] PARTIAL THROMBOPLAST Collected: 03/14/2018 Status: F Source: [place] TIME 3:49 PM [facility] REPOSITORY TYPE CODE TESTS RESULT OUT OF RANGE REFERENCE UNITS LAB L300.4310 24.1-36.2 Seconds Normal PTT 30.0 Performed By: #### L300.3900, L300.4310, L501.9985 #### [facility] [address] [place], [address] HEMOGLOBIN A1C Collected: 03/14/2018 Status: F Source: [place] 3:49 PM [facility] REPOSITORY TYPE CODE TESTS RESULT OUT OF RANGE REFERENCE UNITS LAB L501.9985 4.2-6.3 % High HGB A1C 7.3 Performed By: #### L300.3900, L300.4310, L501.9985 #### [facility] [address] [place], [address] DISCHARGE INSTRUCTION Observed: 03/03/2018 Status: F Source: [place] 11:27 PM [facility] REPOSITORY [facility] Medical Records Department [address] [place] [address] Discharge Instruction 03/03/18 2211 MR#: [id number] Acct: [id number] Name: PRESTON DURBIN Rep #: [id number] : 1940 77 From: Norbert Amezcua MD PCP: Monica Hyatt Status: DEP ER ED Disposition - Plan for ED Patient: Disposition: Home or Assisted Living Chief Complaint: Complaint Instructions: ED Retention Urinary Male Referrals: Dangelo Alvarado MD [STAFF PHYSICIAN] - As soon as possible Additional Instructions: Be in Dr Alvarado's on his office tomorrow at 9 AM. What to do if you have Problems For any increased pain, shortness of breath, bleeding, nausea or vomiting, chest pain, or any unexpected problems, contact your Primary Care Provider. Call [facility] ([phone]) or report to the closest Emergency Room. Call 911 if necessary. 03/03/18 2898 <Electronically signed by Norbert Amezcua MD> Date Norbert Amezcua MD Cosigner Signature (If Indicated): Date CC: Monica Hyatt EMERGENCY DEPARTMENT Observed: 03/03/2018 Status: F Source: [place] SUMMARY 11:27 PM [facility] REPOSITORY [facility] Medical Records Department [address] [place] [address] Emergency Department Summary 03/03/181946 MR#: [id number] Acct: [id number] Name: PRESTON DURBIN Rep #: [id number] : 1940 77 From: Norbert Amezcua MD PCP: Monica Hyatt Status: DEP ER - ER Visit Summary Date of Service: 03/03/18 Chief Complaint: Unable to urinate History of Present Illness: The patient is a 77 M for prostate CA and prior procedure for urinary retention. Patient is also history of A. fib he is on blood thinner. Insulin-dependent diabetes and prior orchiectomy. He has seen Dr. Steffen Alvarado. Physical Examination: Well-appearing older male. No acute distress. Vital signs stable afebrile. HEENT exam unremarkable. Neck nontender. Lungs clear to auscultation bilaterally. Heart regular rate and rhythm no murmur. Abdomen soft. Nondistended. Normal bowel sounds no peritoneal signs. I do not feel any suprapubic bladder distention. External exam unremarkable. Circumcised. Moving all 4 extremities. Calves nontender. No edema. Neurologically is awake and alert with no focal motor deficits. Test Results: Bladder scan equals 150 cc. Pt. then voided and bladder scan was again done and was 0. 3 panel shows chronic renal insufficiency with a BUN of 31 and creatinine 2.0 he is been worse than that before. We were unable to obtain a UA. Emergency Department Course and Treatment: Several nurses of trying have been unsuccessful placing Crump catheters and coud catheters. Treatment Plan: I spoke to Dr. Alvarado of urology and he will see the patient tomorrow morning in his office at 9 AM. On repeat exam the patient is doing well at 2207. Disposition: Discharge Impression: Urinary retention and urinary incontinence This note was generated with [employer] software. It may contain incorrect words, spelling, and punctuation that were not noted in review of the chart prior to signing ED Disposition - Plan for ED Patient: Chief Complaint: Complaint Referrals: Kyleigh Carrasco [NON-STAFF] - What to do if you have Problems For any increased pain, shortness of breath, bleeding, nausea or vomiting, chest pain, or any unexpected problems, contact your Primary Care Provider. Call [facility] ([phone]) or report to the closest Emergency Room. Call 911 if necessary. 03/03/18 0717 <Electronically signed by Norbert Amezcua MD> Date Norbert Amezcua MD Cosigner Signature (If Indicated): Date CC: Monica Hyatt BASIC METABOLIC Collected: 03/03/2018 Status: F Source: [place] PROFILE (BMP) 7:58 PM [facility] REPOSITORY TYPE CODE TESTS RESULT OUT OF RANGE REFERENCE UNITS LAB L501.0100 74-106 mg/dL High GLU 156 Result Comment: Fasting Glucose result greater than or equal to 126 mg/dL suggests DIABETES MELLITUS per A.D.A. criteria. Please note revised GLUCOSE reference range effective 2017. LAB L501.1000 7-18 mg/dL High BUN 31 LAB L501.1100 0.70-1.30 mg/dL High CREAT,SERUM 2.03 Result Comment: The validity of the calculated GFR AND GFRAA in patients over 70 years has not been determined. Clinical correlation is essential. LAB L501.1110 >60 mL/min Low EST GFR 34 Result Comment: Non- GFR Calc LAB L501.1115 >60 mL/min Low EST GFR - AA 41 Result Comment: GFR Calc LAB L501.1255 ml/min Normal Estimated CRCL 28.04 LAB L501.1300 10-20 RATIO Normal BUN/CRE 15.3 LAB L501.2200 8.5-10 mg/dL High .1 CA 10.8 LAB L501.5300 136-14 mmol/L Normal 5 NA 140 LAB L501.5600 3.5-5. mmol/L Normal 1 K 4.3 LAB L501.5900 98-107 mmol/L Normal CL 103 LAB L501.6100 21.0-3 mmol/L Normal 2.0 CO2 27.0 LAB L501.6200 5-15 Normal GAP 10 Performed By: #### L500.2500 #### [facility] [address] [place], [address] PSA,TOTAL- DIAGNOSTIC Collected: 12/24/2017 Status: F Source: [place] 2:12 PM [facility] REPOSITORY TYPE CODE TESTS RESULT OUT OF REFERENCE UNITS RANGE LAB L501.9940 0.0-4.0 ng/mL PSA, High DIAGNOSTIC 9.79 Result Comment: This test was performed using the TPSA assay method for the Frontify chemistry system. Values obtained with different assay methods cannot be used interchangably. When changing PSA assays in the course of monitoring a patient, additional sequential testing should be carried out to confirm baseline values. Performed By: #### L501.9940 #### [facility] [address] [place], [address] DISCHARGE SUMMARY Observed: 11/09/2017 Status: F Source: [place] 8:28 AM [facility] REPOSITORY [facility] Medical Records Department [address] [address] [place] [address] Discharge Summary 10/13/17 0838 MR#: [id number] Acct: [id number] Name: PRESTON DURBIN Rep #: [id number] : 1940 76 From: Dangelo Alvarado MD PCP: KYLEIGH CARRASCO Status: DIS IN Y Location: NE3 [id number] ADDENDUM by Dangelo Alvarado MD on 11/09/17 at 0828 Code Visit Final pathology was invasive adenocarcinoma of the prostate 11/09/17 0828 <Electronically signed by Dangelo Alvarado MD> Date Dangelo Alvarado MD cc: Dangelo Alvarado MD; KYLEIGH CARRASCO * Signed Discharge Date and Diagnosis Date of Admission: 10/11/17 Date of Discharge: 10/13/17 - Secondary Discharge Diagnosis Chronic Problems (Last Reviewed 09/25/17 @ 16:11 by Lucas Glasgow MD) Dyslipidemia (Chronic) Paroxysmal atrial fibrillation (Chronic) History of aortic valve replacement with bioprosthetic valve (Chronic 11/12/16) Trifecta GT Tissue Heart Valve Serial # [id number] Model [id number]- 25A @ [facility] BPH with urinary obstruction (Chronic) Hypertension (Chronic) Hospital Course and Treatment Operations: TURP Procedures: None Summary of Care Provided: The patient is a 76 year old male with elevated psa, s/p turp, home without crump if can void ok. Discharge Diet: Light diet - advance as tolerated Discharge Activity: Return to Normal Activity Home Medications: Medications to take at Discharge ALPRAZolam [Xanax] 0.5 mg PO 4X/DAY 10/24/15 Ascorbic Acid [Vitamin C] 1,000 mg PO DAILY 10/24/15 Fosinopril Sodium [Monopril] 10 mg PO DAILY 10/24/15 Garlic 1 mg PO DAILY 10/24/15 Metformin HCl [Glucophage] 1,000 mg PO BIDCM 10/24/15 Multivitamin [Daily Multiple Vitamin] 1 ea PO DAILY 10/24/15 Orion-3 Fatty Acids/Fish Oil [Orion 3 1,000 mg Softgel] 1 ea PO DAILY 10/24/15 Vitamin B Complex 1 ea PO DAILY 10/24/15 Vitamin E 1,000 unit PO DAILY 10/24/15 Metoprolol Tartrate [Lopressor (beta lisa)] 50 mg PO BID #60 tab 10/25/15 Acetaminophen [Tylenol] 500 mg PO Q6H PRN PRN 09/18/17 Cyanocobalamin (Vitamin B-12) [Vitamin B-12] 5,000 mcg SL BID 09/18/17 Gabriella Extract [Gabriella] 1,000 mg PO BID 09/18/17 Methylsulfonylmethane [MSM] 1,500 mg PO TID 09/18/17 Niacinamide 500 mg PO DAILY 09/18/17 Pyridoxine HCl [Vitamin B6] 100 mg PO BID 09/18/17 Sodium Chloride 1 gm PO DAILY 09/18/17 Ubidecarenone [Co Q-10] 200 mg PO DAILY 09/18/17 Vanadyl Sulfate 10 mg PO DAILY 09/18/17 furosemide 40 mg tablet 40 mg PO QDAY #90 tab 09/25/17 simvastatin 40 mg tablet 40 mg PO QPM 09/25/17 Ciprofloxacin [Cipro] 500 mg PO BID #14 tab 10/13/17 Following Prescrptions Were Given to Patient: Ciprofloxacin [Cipro] 500 mg PO BID #14 tab Primary Care Physician: Kyleigh Carrasco [Primary Care Provider] - Please Follow Up With: Dangelo Alvarado MD When: in 2 weeks, please call to make an appointment. Patient Instructions: Transurethral Resection of the Prostate (TURP): Home Recovery Medical Necessity - Tobacco Use Smoking Status: Never smoker Meaningful Use Info Meaningful Use Diagnoses (Choose all that apply): None applicable 10/13/17 0840 <Electronically signed by Dangelo Alvarado MD> Date Dangelo Alvarado MD Cosigner Signature (if applicable): Date CC: Dangelo Alvarado MD; KYLEIGH CARRASCO Signed OPERATIVE REPORT Observed: 10/30/2017 Status: F Source: [place] 7:46 PM [facility] REPOSITORY [facility] Medical Records Department [address] [place] [address] Operative Report 10/30/171942 MR#: [id number] Acct: [id number] Name: PRESTON DURBIN Rep #: [id number] : 1940 77 From: Dangelo Alvarado MD PCP: KYLEIGH CARRASCO Status: REG [facility] Y Location: [place] [address] Report of Operation Date of Procedure: 10/30/17 Pre-Operative Diagnosis: Metastatic prostate cancer Post-Operative Diagnosis: Same Surgery/Procedure Performed:: Simple bilateral orchiectomy scrotal approach Description of Surgical Findings:: 77-year-old male recently discovered to have advanced prostate cancer his PSA was 73 bone scan was done that demonstrated positive bony metastatic disease high-grade disease was found in surgery after TURP just recently so today were taken of the surgery to do a simple bilateral orchiectomy for immediate castration to treat his metastatic prostate cancer. 77-year-old male taken back to the operating room after smooth induction of general anesthesia he was placed supine on the table the scrotum was shaved prepped and draped in usual sterile fashion made an incision in the scrotum in the midline raphae about 3 cm long dissected down to the left testicle through the dartos layer and the tunica albuginea layer testicle was then delivered I then used hemostats and suture tie to ligate the testicle after the spermatic cord this was done in individual small blocks after tying this down there was no bleeding from the site. The left testicle was then handed off as specimen I then went to the right testicle open up the dartos layer the tunica albuginea deliver the testicle freed up the cord and then transected the cord with several small hemostats transected through the hemostats and then suture ligated each of the hemostats and the right testicle was delivered. After suture ligating both sides of the cords and left the right side irrigated there is no bleeding good clinical control hemostasis I closed the dartos layer with the running chromic stitch and then closed the skin layer with a running chromic stitch patient anesthetic was reversed taken back to PACU in good condition he will follow-up in 2 weeks for wound check. Type of Anesthesia:: General Drains: none Estimated Blood Loss (mL): 10cc - Admit VTE Documentation VTE Present on Admission: No VTE Mechan Device Prophylaxis: SCD's VTE Pharm Prophylaxis ordered?: No 10/30/171945 <Electronically signed by Dangelo Alvarado MD> Date Dangelo Alvarado MD CC: Dangelo Alvarado MD; KYLEIGH CARRASCO Signed DISCHARGE INSTRUCTION Observed: 10/30/2017 Status: F Source: [place] 7:00 PM [facility] REPOSITORY [facility] Medical Records Department [address] [place] [address] Instructions for Home/Discharge Instructions 10/30/17 1858 MR#: [id number] Acct: [id number] Name: PRESTON DURBIN Rep #: [id number] : 1940 77 From: Dangelo Alvarado MD PCP: KYLEIGH CARRASCO Status: REG WIC Discharge Diet: Light diet - advance as tolerated Discharge Activity: Return to Normal Activity Call your doctor if your incision/area has: Continuous Slow Oozing, Sudden Increased Bleeding, Increased Pain/ Swelling, Increased Redness, Foul Smelling Discharge, Swelling at the incision site Call your doctor if you observe: Fever of 101 or Higher Additional Instructions: Hold Eliquis for 5 days, then ok to start. Allergies/Adverse Reactions: Allergies albuterol Allergy (Verified 10/29/17 12:10) Unknown clonazepam Allergy (Verified 10/29/17 12:10) Unknown ibuprofen Allergy (Verified 10/29/17 12:10) Unknown ipratropium Allergy (Verified 10/29/17 12:10) Unknown aspirin Adverse Reaction (Verified 10/29/17 12:10) Vomiting pt states he vomits blood Medications to take at Discharge ALPRAZolam [Xanax] 0.5 mg PO 4X/DAY 10/24/15 Ascorbic Acid [Vitamin C] 1,000 mg PO DAILY 10/24/15 Fosinopril Sodium [Monopril] 10 mg PO DAILY 10/24/15 Garlic 1 mg PO DAILY 10/24/15 Metformin HCl [Glucophage] 1,000 mg PO BIDCM 10/24/15 Multivitamin [Daily Multiple Vitamin] 1 ea PO DAILY 10/24/15 Orion-3 Fatty Acids/Fish Oil [Orion 3 1,000 mg Softgel] 1 ea PO DAILY 10/24/15 Vitamin B Complex 1 ea PO DAILY 10/24/15 Vitamin E 1,000 unit PO DAILY 10/24/15 Metoprolol Tartrate [Lopressor (beta lisa)] 50 mg PO BID #60 tab 10/25/15 Acetaminophen [Tylenol] 500 mg PO Q6H PRN PRN 09/18/17 Cyanocobalamin (Vitamin B-12) [Vitamin B-12] 5,000 mcg SL BID 09/18/17 Gabriella Extract [Gabriella] 1,000 mg PO BID 09/18/17 Methylsulfonylmethane [MSM] 1,500 mg PO TID 09/18/17 Niacinamide 500 mg PO DAILY 09/18/17 Pyridoxine HCl [Vitamin B6] 100 mg PO BID 09/18/17 Sodium Chloride 1 gm PO DAILY 09/18/17 Ubidecarenone [Co Q-10] 200 mg PO DAILY 09/18/17 Vanadyl Sulfate 10 mg PO DAILY 09/18/17 furosemide 40 mg tablet 40 mg PO QDAY #90 tab 09/25/17 simvastatin 40 mg tablet 40 mg PO QPM 09/25/17 Cholecalciferol (VIT D3) [Vitamin D3] 1,000 unit PO DAILY 10/29/17 Ferrous Sulfate [Iron] 325 mg PO DAILY 10/29/17 Hydrocodone/Acetaminophen [Vicodin 5-300 mg Tablet] 1 tab PO Q6H PRN PRN 7 Days #20 tab 10/30/17 The following prescriptions were given: Hydrocodone/Acetaminophen [Vicodin 5-300 mg Tablet] 1 tab PO Q6H PRN PRN 7 Days #20 tab PRN Reason: Pain Primary Care Physician: Kyleigh Carrasco [Primary Care Provider] - Test Results: Test results from this visit will be discussed in further detail at your follow-up appointment, if applicable. Please Follow Up With: Dangelo Alvarado MD When: in 2 weeks, please call to make an appointment. 10/30/17 1900 <Electronically signed by Dangelo Alvarado MD> Date Dangelo Alvarado MD CC: KYLEIGH CARRASCO TESTICLE Observed: 10/30/2017 Status: F Source: [place] 3:50 PM [facility] REPOSITORY Patient: PRESTON DURBIN : 1940 (77/M) Acct Num: [id number] Phys: Dangelo Alvarado MD Unit Num: [id number] Loc: [facility] Specimen: [id number] Received: 08/02/18 - 0854 Spec Type: TESTICLE TISSUES TISSUES: Testis, NOS COMMENT Please make reference to previous specimen ([id number]) prostate, TUR with diagnosis of adenocarcinoma. GROSS DESCRIPTION Received in fixative is one container labeled with the patient's name and designated bilateral testicles. The specimen consists of bilateral testicles and attached spermatic cord. The testicles are not identified as right or left. One of the testicles measure 6 x 3 x 2.5 cm and attached spermatic cord measures 3.5 cm in length and up to 2 cm in diameter. The specimen weighs 31.6 gm. The epididymis measures 6 x 1 x 1 cm. Sections of testicle reveal yellow- orange parenchyma without any mass lesion. The second testicle measures 4.5 x 3 x 2 cm and attached spermatic cord measures 2.5 x 2 cm and the epididymis measures 4.5 x 1 x 1 cm. The second testicle weighs 22.6 gm. Sections of spermatic cord do not reveal any mass lesion. Sections of the testicle reveal yellow-orange parenchyma without any mass lesion. [employer] sections are submitted in six cassettes as follows: 13 one testicle (1 spermatic cord, 2 testicle and epididymis, 3 more sections of testis), 46 second testicle (4 spermatic cord, 5 testicle and epididymis, 6 more sections of testis). / Renaldo 10/31/17 TC:5 CPT: 53254 x2 HEADER OPERATION: Bilateral scrotal orchiectomy PRE-OP DIAGNOSIS: Metastatic prostate cancer TISSUE SUBMITTED: Bilateral testicles MICROSCOPIC DESCRIPTION Slides are reviewed. MICROSCOPIC DIAGNOSIS Bilateral testicles, orchiectomy: Bilateral testicles with focal seminiferous tubules atrophy. Spermatic cord and epididymis, no pathologic diagnosis. Renaldo 11/01/17 Signed Pradeep Roberts 11/01/17 <signature on file> Performed By: #### PTEST #### [facility] [address], [address] BEDSIDE GLUCOSE Collected: 10/30/2017 Status: F Source: [place] 2:37 PM [facility] REPOSITORY TYPE CODE TESTS RESULT OUT OF REFERENCE UNITS RANGE LAB L501.080 70-110 mg/dL High BEDSIDE GLU 122 Result Comment: MANAGEMENT OF PATIENT CARE PER NURSING PROTOCOL Performed By: #### L501.080 #### [facility] Point of Care [address] [place] [address] BONE SCAN WHOLE Observed: 10/28/2017 Status: F Source: [place] BODY 8:21 AM [facility] REPOSITORY [facility] Imaging Services [address] [place] [address] Bone Scan Whole Body MR#: [id number] Acct: [id number] Name: PRESTON DURBIN Rep #: [id number] : 1940 M 77 From: Bruno Courtney DO PCP: KYLEIGH CARRASCO Status: REG CLI Study: Bone Scan Whole Body Date of Exam: 10/28/17 Exam# [id number] Ordering Dr: Dangelo Alvarado MD CLINICAL: 77-year-old male with reported history of carcinoma of the prostate. WHOLE BODY 99m Tc MDP RADIONUCLIDE BONE SCINTIGRAPHY COMPARISON: CT of the abdomen-pelvis report 10/18/2017 FINDINGS: Following the intravenous administration of 25.3 mCi of 99m Tc MDP, whole body bone images reveal: 1. Increased radiopharmaceutical concentration is identified in the left iliac wing, left posterior ilium, right posterior ischium, the right iliac crest, the pubic symphysis, left mid femoral diaphysis, several thoracic and lumbar vertebrae, multiple bilateral ribs. 2. Enhanced tracer concentration is identified in the patellofemoral compartment of the left knee. 3. The remaining skeletal structures are scintigraphically unremarkable with normal-appearing renal images and urinary bladder activity identified. NM/Bone Scan Whole Body IMPRESSION: 1. The increase in radiopharmaceutical concentration identified in the bilateral hemipelvis, left mid femoral diaphysis, thoracic and lumbar spine, right-left anterior and posterior ribs is commensurate with osseous metastatic disease. 2. Degenerative arthritis appears expressed in the left knee. Electronically Signed: Bruno Courtney DO at 21:28 EDT Tel , Service support , CC: Dangelo Alvarado MD; KYLEIGH CARRASCO Child Support Case Officer: Signed DISCHARGE INSTRUCTION Observed: 10/13/2017 Status: F Source: [place] 8:39 AM [facility] REPOSITORY [facility] Medical Records Department [address] [place] [address] Instructions for Home/Discharge Instructions 10/13/17 0836 MR#: [id number] Acct: [id number] Name: PRESTON DURBIN Rep #: [id number] : 1940 76 From: Dangelo Alvarado MD PCP: KYLEIGH CARRASCO Status: ADM IN Discharge Diet: Light diet - advance as tolerated Discharge Activity: Return to Normal Activity Instructions: Transurethral Resection of the Prostate (TURP): Home Recovery Allergies/Adverse Reactions: Allergies albuterol Allergy (Verified 10/08/17 09:09) Unknown clonazepam Allergy (Verified 10/08/17 09:09) Unknown ibuprofen Allergy (Verified 10/08/17 09:09) Unknown ipratropium Allergy (Verified 10/08/17 09:09) Unknown aspirin Adverse Reaction (Verified 10/08/17 09:09) Vomiting pt states he vomits blood Medications to take at Discharge ALPRAZolam [Xanax] 0.5 mg PO 4X/DAY 10/24/15 Ascorbic Acid [Vitamin C] 1,000 mg PO DAILY 10/24/15 Fosinopril Sodium [Monopril] 10 mg PO DAILY 10/24/15 Garlic 1 mg PO DAILY 10/24/15 Metformin HCl [Glucophage] 1,000 mg PO BIDCM 10/24/15 Multivitamin [Daily Multiple Vitamin] 1 ea PO DAILY 10/24/15 Orion-3 Fatty Acids/Fish Oil [Orion 3 1,000 mg Softgel] 1 ea PO DAILY 10/24/15 Vitamin B Complex 1 ea PO DAILY 10/24/15 Vitamin E 1,000 unit PO DAILY 10/24/15 Metoprolol Tartrate [Lopressor (beta lisa)] 50 mg PO BID #60 tab 10/25/15 Acetaminophen [Tylenol] 500 mg PO Q6H PRN PRN 09/18/17 Cyanocobalamin (Vitamin B-12) [Vitamin B-12] 5,000 mcg SL BID 09/18/17 Gabriella Extract [Gabriella] 1,000 mg PO BID 09/18/17 Methylsulfonylmethane [MSM] 1,500 mg PO TID 09/18/17 Niacinamide 500 mg PO DAILY 09/18/17 Pyridoxine HCl [Vitamin B6] 100 mg PO BID 09/18/17 Sodium Chloride 1 gm PO DAILY 09/18/17 Ubidecarenone [Co Q-10] 200 mg PO DAILY 09/18/17 Vanadyl Sulfate 10 mg PO DAILY 09/18/17 furosemide 40 mg tablet 40 mg PO QDAY #90 tab 09/25/17 simvastatin 40 mg tablet 40 mg PO QPM 09/25/17 Ciprofloxacin [Cipro] 500 mg PO BID #14 tab 10/13/17 Primary Care Physician: Kyleigh Carrasco [Primary Care Provider] - Test Results: Test results from this visit will be discussed in further detail at your follow-up appointment, if applicable. Please Follow Up With: Dangelo Alvarado MD When: in 2 weeks, please call to make an appointment. 10/13/17 0839 <Electronically signed by Dangelo Alvarado MD> Date Dangelo Alvarado MD CC: KYLEIGH CARRASCO CBC-COMPLETE BLOOD CNT Collected: 10/12/2017 Status: F Source: [place] NO DIFF 6:45 AM [facility] REPOSITORY TYPE CODE TESTS RESULT OUT OF RANGE REFERENCE UNITS LAB L100.1000 4.4-11.0 K/mm3 Normal WBC 10.8 LAB L100.1200 4.6-6.2 M/mm3 Low RBC 3.06 LAB L100.1300 13.0-16.5 g/dl Low HGB 9.9 LAB L100.1400 40-54 % Low HCT 29.5 LAB L100.1500 80-94 fL High MCV 96.4 LAB L100.1600 27.0-32.0 pg High MCH 32.4 LAB L100.1700 32-36 g/gl Normal MCHC 33.6 LAB L100.1810 11.6-14.6 % Normal RDW CV 13.0 LAB L100.1820 35.1-43.9 fl Normal RDW SD 43.6 LAB L100.1900 150-450 K/mm3 Normal PLT 221 LAB L100.2000 6.2-12.0 fl Normal MPV 9.8 Performed By: #### L100.0500 #### [facility] [address] [place], [address] BASIC METABOLIC Collected: 10/12/2017 Status: F Source: [place] PROFILE (BMP) 6:45 AM [facility] REPOSITORY TYPE CODE TESTS RESULT OUT OF RANGE REFERENCE UNITS LAB L501.0100 74-106 mg/dL High GLU 119 Result Comment: Fasting Glucose result from 100 to 125 mg/dL suggests IMPAIRED HOMEOSTASIS per A.D.A. criteria. Please note revised GLUCOSE reference range effective 2017. LAB L501.1000 7-18 mg/dL Normal BUN 11 LAB L501.1100 0.70-1.30 mg/dL Normal CREAT,SERUM 0.74 Result Comment: The validity of the calculated GFR AND GFRAA in patients over 70 years has not been determined. Clinical correlation is essential. LAB L501.1110 >60 mL/min Normal EST GFR 108 Result Comment: Non- GFR Calc LAB L501.1115 >60 mL/min Normal EST GFR - AA 131 Result Comment: GFR Calc LAB L501.1255 ml/min Normal Estimated CRCL 69.46 LAB L501.1300 10-20 RATIO Normal BUN/CRE 14.8 LAB L501.2200 8.5-10 mg/dL Low .1 CA 8.0 LAB L501.5300 136-14 mmol/L Normal 5 NA 144 LAB L501.5600 3.5-5. mmol/L Normal 1 K 3.9 LAB L501.5900 98-107 mmol/L High CL 110 LAB L501.6100 21.0-3 mmol/L Normal 2.0 CO2 26.0 LAB L501.6200 5-15 Normal GAP 8 Performed By: #### L500.2500, L501.9940 #### [facility] [address] [facility] [address] [place], [place], [address] PSA,TOTAL- DIAGNOSTIC Collected: 10/12/2017 Status: F Source: [place] 6:45 AM [facility] REPOSITORY TYPE CODE TESTS RESULT OUT OF REFERENCE UNITS RANGE LAB L501.9940 0.0-4.0 ng/mL PSA, High DIAGNOSTIC 73.20 Result Comment: This test was performed using the TPSA assay method for the Frontify chemistry system. Values obtained with different assay methods cannot be used interchangably. When changing PSA assays in the course of monitoring a patient, additional sequential testing should be carried out to confirm baseline values. Performed By: #### L500.2500, L501.9940 #### [facility] [address] [facility] [place], [address] BEDSIDE GLUCOSE Collected: 10/11/2017 Status: F Source: [place] 1:26 PM [facility] REPOSITORY TYPE CODE TESTS RESULT OUT OF REFERENCE UNITS RANGE LAB L501.080 70-110 mg/dL High BEDSIDE GLU 141 Result Comment: MANAGEMENT OF PATIENT CARE PER NURSING PROTOCOL Performed By: #### L501.080 #### [facility] Point of Care [address] [place] [address] OPERATIVE REPORT Observed: 10/11/2017 Status: F Source: [place] 1:02 PM [facility] REPOSITORY [facility] Medical Records Department [address] [place] [address] Operative Report 10/11/17 1259 MR#: [id number] Acct: [id number] Name: PRESTON DURBIN Rep #: [id number] : 1940 76 From: Dangelo Alvarado MD PCP: KYLEIGH CARRASCO Status: ADM IN Location: [address] Report of Operation Date of Procedure: 10/11/17 Pre-Operative Diagnosis: PSA with bladder outlet obstruction Post-Operative Diagnosis: Same Surgery/Procedure Performed:: Transurethral resection of the prostate Description of Surgical Findings:: 76-year-old male who presented to the hydronephrosis and bladder outlet obstruction catheter is was placed his creatinine then resolved back to normal he now presents to the operating room for cystoscopy and TUR P of the prostate to relieve the obstruction outlet obstruction we suspect he may have prostate cancer. 76-year-old male taken back to the operating room at the smooth induction of general anesthesia he was placed supine on the table penis and testicles were prepped and draped in usual sterile fashion, I then went into the bladder with a 12 Olympus resectoscope switched over to the large loop started resecting essentially had a long length prosthetic obstruction he had growth of the mass into the bladder neck and floor the bladder trigone area I had to resect all this tissue and the resected all the way back down on the floor all the way back in the verumontanum then resected the right lobe of the tissue in the resect the left of the tissue very bloody resection because of the tissue suspect that this is prostate cancer appeared to be invasive prostate cancer invading into fat and muscle around the prostate and bladder area at the end of the resection got all the chips out the hand off as a specimen obtained hemostasis as needed best as possible and then put a 22 [place] catheter into the bladder on continuous bladder irrigation and start irrigation is a little bit bloody was taken back to PACU in stable condition. Type of Anesthesia:: General Drains: 22fr 3 way - Admit VTE Documentation VTE Present on Admission: No VTE Mechan Device Prophylaxis: SCD's VTE Pharm Prophylaxis ordered?: No Reason prophylaxis not ordered:: Treatment Not Indicated 10/11/17 1302 <Electronically signed by Dangelo Alvarado MD> Date Dangelo Alvarado MD CC: Dangelo Alvarado MD; KYLEIGH CARRASCO Signed BEDSIDE GLUCOSE Collected: 10/11/2017 Status: F Source: [place] 8:33 AM [facility] REPOSITORY TYPE CODE TESTS RESULT OUT OF REFERENCE UNITS RANGE LAB L501.080 70-110 mg/dL High BEDSIDE GLU 132 Result Comment: MANAGEMENT OF PATIENT CARE PER NURSING PROTOCOL Performed By: #### L501.080 #### [facility] [address] [place], [place] [id number] PROSTATE, TUR Observed: 10/11/2017 Status: F Source: [place] 12:00 AM [facility] REPOSITORY Patient: PRESTON DURBIN : 1940 (76/M) Acct Num: [id number] Phys: Christiano BARRERA,Dangelo Bourne Unit Num: [id number] Loc: MS3 [id number] Specimen: [id number] Received: 10/11/17 - 1232 Spec Type: TURP TISSUES TISSUES: Prostate, NOS COMMENT Adenocarcinoma is present in approximately 90% of the tissue in 12 slides submitted for microscopic examination. Immunohistochemistry ([id number]) supports the above diagnosis. Case has been reviewed in consultation with Dr. Roberts who concurs with the above diagnosis. IDC:SJ GROSS DESCRIPTION Received is one container labeled with the patient's name and designated prostate tissue. The specimen consists of multiple irregular fragments of pink-dutton, rubbery, soft tissue that in aggregate weigh 30.8 gm and measure in aggregate 8 x 7 x 3 cm. [employer] tissue is submitted in 12 cassettes. / SJ:marino 10/14/17 TC:0 CPT: 01087 HEADER OPERATION: Cysto, TUR, prostate, Olympus PRE-OP DIAGNOSIS: Benign prostatic hypertrophy with obstruction; urinary retention TISSUE SUBMITTED: Prostate tissue MICROSCOPIC DESCRIPTION Slides are reviewed. MICROSCOPIC DIAGNOSIS Prostate, transurethral resection: Adenocarcinoma. [place] grade - 9 (5+4) Perineural invasion - present Vascular invasion - not identified. AM:marino 10/15/17 Signed [place] 10/16/17 <signature on file> Performed By: #### PPROS #### [facility] [address] [place] [address]. [place], [address] IMMUNOHISTOCHEMISTRY Observed: 10/11/2017 Status: F Source: [place] 12:00 AM [facility] REPOSITORY Patient: PRESTON DURBIN : 1940 (76/M) Acct Num: [id number] Phys: Christiano BARRERA,Justino Unit Num: [id number] Loc: MS3 [id number] Specimen: [id number] Received: 10/15/17 - 2966 Spec Type: IMMUNO TISSUES TISSUES: Prostate, NOS - #3 SPECIMEN INFORMATION: Tissue Source: Prostate tissue Clinical Info: BPH with obstruction, urinary retention Specimen Number: [id number] #3 CPT code: 71309, 86048 METHODOLOGY: Deparaffinized sections of prefer/formalin-fixed tissue or PAP/DQ stained slides are incubated with monoclonal/polyclonal antibodies/oligonucleotide probes. Localization is made via biotin free immunoperoxidase method. Appropriate controls are performed and reacted as expected. Results on target cell population are indicated in the following table: RESULTS: ANTIBODY / CLONE RESULT Block 3 PSA (ER-PR8) positive PSAP (PASE/4LJ) positive These tests were developed and their performance characteristics determined by [facility]. They may not have been cleared or approved by the U.S. Food and Drug Administration. The FDA has determined that such clearance or approval is not necessary. INTERPRETATION: Prostate tissue, TUR: Invasive prostate carcinoma. AM:marino 10/16/17 PHYSICIAN AND INSTITUTION [place] [id number] Signed [place] [facility] 10/16/17 <signature on file> Performed By: #### PIMM #### [facility] [address] [place] [address]. [place], [address] 12 LEAD ELECTROCARDIOGRAM Observed: 10/03/2017 Status: F Source: [place] 3:03 PM [facility] REPOSITORY [facility] Cardiovascular Services [address] [place] [id number] 12 Lead EKG 09/30/17 1502 MR#: [id number] Acct: [id number] Name: PRESTON DURBIN Rep #: [id number] : 1940 76 From: Lucas Glasgow MD Attending Dr: Dangelo Alvarado MD Status: REG CLI Ordering Dr: Dangelo Alvarado MD Date: 09/30/17 Location: LAB Sex: M C Admitted: Test Reason : PRE OP Blood Pressure : / mmHG Vent. Rate : 096 BPM Atrial Rate : 096 BPM P-R Int : 150 ms QRS Dur : 076 ms QT Int : 354 ms P-R-T Axes : 034 009 046 degrees QTc Int : 447 ms Normal sinus rhythm Normal ECG Confirmed by LUCAS GLASGOW MD ([id number]), senior editor LOLA RODGERS ([id number]) on 10/03/2017 3:02:40 PM Referred By: Dangelo Alvarado Confirmed By:LUCAS GLASGOW MD 10/03/17 1502 Date Lucas Glasgow MD CC: Dangelo Alvarado MD; KYLEIGH CARRASCO Signed CBC-COMPLETE BLOOD CNT Collected: 09/30/2017 Status: F Source: [place] NO DIFF 2:47 PM [facility] REPOSITORY TYPE CODE TESTS RESULT OUT OF RANGE REFERENCE UNITS LAB L100.1000 4.4-11.0 K/mm3 High WBC 11.7 LAB L100.1200 4.6-6.2 M/mm3 Low RBC 4.02 LAB L100.1300 13.0-16.5 g/dl Normal HGB 13.1 LAB L100.1400 40-54 % Low HCT 37.9 LAB L100.1500 80-94 fL High MCV 94.3 LAB L100.1600 27.0-32.0 pg High MCH 32.6 LAB L100.1700 32-36 g/gl Normal MCHC 34.6 LAB L100.1810 11.6-14.6 % Normal RDW CV 12.9 LAB L100.1820 35.1-43.9 fl Normal RDW SD 43.0 LAB L100.1900 150-450 K/mm3 Normal PLT 357 LAB L100.2000 6.2-12.0 fl Normal MPV 10.1 Performed By: #### L100.0500 #### [facility] [place], [address] BASIC METABOLIC Collected: 09/30/2017 Status: F Source: [place] PROFILE (BMP) 2:47 PM [facility] REPOSITORY TYPE CODE TESTS RESULT OUT OF RANGE REFERENCE UNITS LAB L501.0100 74-106 mg/dL High GLU 148 Result Comment: Fasting Glucose result greater than or equal to 126 mg/dL suggests DIABETES MELLITUS per A.D.A. criteria. Please note revised GLUCOSE reference range effective 2017. LAB L501.1000 7-18 mg/dL High BUN 23 LAB L501.1100 0.70-1.30 mg/dL Normal CREAT,SERUM 1.16 Result Comment: The validity of the calculated GFR AND GFRAA in patients over 70 years has not been determined. Clinical correlation is essential. LAB L501.1110 >60 mL/min Normal EST GFR 65 Result Comment: Non- GFR Calc LAB L501.1115 >60 mL/min Normal EST GFR - AA 78 Result Comment: GFR Calc LAB L501.1300 10-20 RATIO Normal BUN/CRE 19.8 LAB L501.2200 8.5-10.1 mg/dL CA Normal 9.2 LAB L501.5300 136-145 mmol/L NA Normal 140 LAB L501.5600 3.5-5.1 mmol/L K Normal 4.2 LAB L501.5900 98-107 mmol/L CL Normal 101 LAB L501.6100 21.0-32.0 mmol/L Normal CO2 29.0 LAB L501.6200 5-15 Normal GAP 10 Performed By: #### L500.2500 #### [facility] [address] [place], [address] ABO RH BLOOD TYPE, Collected: 09/30/2017 Status: F Source: [place] PATIENT 2:47 PM [facility] REPOSITORY TYPE CODE TESTS RESULT OUT OF RANGE REFERENCE UNITS LAB B10.0800 AB Normal BLOOD POSITIVE TYPE GEL Performed By: #### B10.0010 #### [facility] [address] [place], [address] CARDIOLOGY VISIT Observed: 09/25/2017 Status: F Source: [place] REPORT 4:22 PM [facility] REPOSITORY [facility] [address] [place] [address] OFFICE VISIT Date of Service: 09/25/17 MR#: [id number] Acct: [id number] Name: PRESTON DURBIN Rep #: [id number] : 1940 Provider: Lucas Glasgow MD Age/Sex: 76/M Location: [facility] Status: Signed HPI [facility] Chief Complaint: Initial visit and preop evaluation. Details: PRESTON DURBIN, is a 76 M who presents to the office today for an initial visit as well as preoperative evaluation. He is a gentleman with a history of aortic valve disease atrial fibrillation which appears to be paroxysmal and hypertension. He apparently underwent a cardiac catheterization less than a year ago which demonstrated essentially normal coronary arteries he was noted to have severe aortic stenosis and underwent a bioprosthetic aortic valve replacement. He was recently admitted to the hospital with bilateral hydronephrosis and hydroureter as well as a mass in the bladder. He is being evaluated for possible urologic surgery. He denies any chest pain or shortness breath or paroxysmal nocturnal dyspnea or pedal edema he has had no neck arm or jaw discomfort to suggest angina. He has been compliant with all his medications. He has not had any neck arm or jaw discomfort suggest angina. His physical exam today demonstrates fine rales at the bases regular rate and rhythm mildly tachycardic and no pedal edema. His electric cardiogram from September 18 demonstrated sinus rhythm with rate of 72 bpm. His echocardiogram was reviewed. Intake Vital Signs09/25/17 Height 5 ft 7 in Intake Visit Reasons: DC from MS3 09-20 NEW to [facility] Allergies albuterol Allergy (Verified 09/25/17 15:38) Unknown clonazepam Allergy (Verified 09/25/17 15:38) Unknown ibuprofen Allergy (Verified 09/25/17 15:38) Unknown ipratropium Allergy (Verified 09/25/17 15:38) Unknown aspirin Adverse Reaction (Verified 09/25/17 15:38) Vomiting Medications ALPRAZolam [Xanax] 0.5 mg PO 10/24/15 [History Confirmed 09/25/17] Ascorbic Acid [Vitamin C] 1,000 mg PO DAILY 10/24/15 [History Confirmed 09/25/17] Fosinopril Sodium [Monopril] 10 mg PO DAILY 10/24/15 [History Confirmed 09/25/17] Garlic 1 mg PO DAILY 10/24/15 [History Confirmed 09/25/17] Metformin HCl [Glucophage] 1,000 mg PO BIDCM 10/24/15 [History Confirmed 09/25/17] Multivitamin [Daily Multiple Vitamin] 1 ea PO DAILY 10/24/15 [History Confirmed 09/25/17] Orion-3 Fatty Acids/Fish Oil [Orion 3 1,000 mg Softgel] 1 ea PO DAILY 10/24/15 [History Confirmed 09/25/17] Vitamin B Complex 1 ea PO DAILY 10/24/15 [History Confirmed 09/25/17] Vitamin E 1,000 unit PO DAILY 10/24/15 [History Confirmed 09/25/17] Metoprolol Tartrate [Lopressor (beta lisa)] 50 mg PO BID #60 tab 10/25/15 [Rx Confirmed 09/25/17] Apixaban [Eliquis] 5 mg PO BID 07/08/17 [History Confirmed 09/25/17] Acetaminophen [Tylenol] 500 mg PO Q6H PRN PRN 09/18/17 [History Confirmed 09/25/17] Curamin 3 tab PO QHS 09/18/17 [History Confirmed 09/25/17] Cyanocobalamin (Vitamin B-12) [Vitamin B-12] 5,000 mcg SL BID 09/18/17 [History Confirmed 09/25/17] Gabriella Extract [Gabriella] 1,000 mg PO BID 09/18/17 [History Confirmed 09/25/17] Methylsulfonylmethane [MSM] 1,500 mg PO TID 09/18/17 [History Confirmed 09/25/17] Niacinamide 500 mg PO DAILY 09/18/17 [History Confirmed 09/25/17] Pyridoxine HCl [Vitamin B6] 100 mg PO DAILY 09/18/17 [History Confirmed 09/25/17] Sodium Chloride 1 gm PO DAILY 09/18/17 [History Confirmed 09/25/17] Ubidecarenone [Co Q-10] 200 mg PO DAILY 09/18/17 [History Confirmed 09/25/17] Vanadyl Sulfate 10 mg PO DAILY 09/18/17 [History Confirmed 09/25/17] furosemide 40 mg tablet 40 mg PO QDAY #90 tab 09/25/17 [Rx Confirmed 09/25/17] simvastatin 40 mg tablet 40 mg PO QPM 09/25/17 [History Confirmed 09/25/17] [facility] Medical History Dyslipidemia (Chronic) Bilateral hydronephrosis (Acute) Paroxysmal atrial fibrillation (Chronic) Acute renal failure (Acute) BPH with urinary obstruction (Chronic) Hypertension (Chronic) Arthritis (Chronic) GERD (gastroesophageal reflux disease) (Chronic) Macrocytic anemia (Chronic) Mass of bladder (Chronic) Type 2 diabetes mellitus without complications (Chronic) Surgical History History of aortic valve replacement with bioprosthetic valve (Chronic 11/12/16) Family History Sister Heart disease Brother Cancer Social History Smoking Status: Never smoker ROS Const Const: Positive for weakness; negative for fatigue, difficulty sleeping, frequent falls, headache(s) or excessive sweating Eyes Eyes: Negative for loss of peripheral vision, transient loss of vision, blurry vision or double vision ENT ENT: Negative for headache(s), dizziness, Nosebleed/epistaxis or balance problems Cardio Chest Pain: No Edema: None Muscle aches with walking: None Resp Respiratory: Positive for SOB with activity; negative for SOB at rest, SOB orthopnea\SOB lying down or paroxysmal nocturnal dyspnea GI GI: Negative nausea or heartburn : Positive for hematuria Musc Musc: Negative for muscle aches/ myalgia, muscle weakness, joint pain or balance problems Skin Skin: Negative non-healing lesions, unusual bruising or rash Neuro Neuro: Positive for weakness, other (Tremors) and vertigo; negative for frequent falls, blurry vision, headache(s), dizziness, lightheadedness, orthostatic symptoms or double vision [place] Hematologic/Lymphatic: Negative for easy bruising Endo Endo: Negative for fatigue, excessive sweating or increased thirst/drinking Psych Psych: Negative for anxiety or depression Allergy Allergy/Immunology: Negative for hives, Negative for rash Cardiology Exam Const Appearance: cooperative, healthy appearing, well developed, well groomed and no acute distress Nutritional Appearance: well nourished and average body habitus Orientation: alert, awake and oriented x3 Head Head: normal to inspection, normocephalic and atraumatic Ears: hearing grossly normal bilaterally and external ears normal Nose: external nose normal, nasal mucous membranes and turbinates normal, nares normal, septum normal, no nasal discharge Face and Sinus: face symmetric Mouth: oral mucosae normal, tongue normal, oropharynx normal and moist mucous membranes Teeth and gingiva: dentition normal Throat: posterior oropharynx normal, tonsils normal and uvula midline Eyes General: appearance normal, both eyes and all related structures Eyelids: eyelids normal Conjunctivae: conjunctivae normal Pupils: PERRL, normal by confrontation and accommodation normal EOM: EOM intact bilaterally Neck Neck: normal visual inspection, trachea midline and no JVD JVD: +5 Carotids: normal carotid upstroke and bounding pulses Chest Chest inspection: normal inspection of the chest, symmetric chest movement and normal respiratory effort Auscultation: Bilateral: Rales Cardio Palpation: normal PMI Rate: regular rate Rhythm: regular rhythm Heart sounds: S1 normal and S2 normal Murmur: Grade 1/6, soft and early systolic GI GI: normal to inspection, soft, no hepatosplenomegaly and bowel sounds present Neuro General: alert, awake, oriented x3, no focal sensory deficit, gait normal and moves all extremities Skin Skin: no rashes or lesions noted Extremities Pulses: Normal: Right Femoral Pulse, Left Femoral Pulse, Right Dorsalis Pedis Pulse, Left Dorsalis Pedis Pulse, Right Posterior Tibial Pulse, Left Posterior Tibial Pulse, Right Radial Pulse, Left Radial Pulse Lower Extremity Edema: None: Bilateral Musculoskel Musculoskeletal: No joint tenderness Psych Psychological: normal affect Assessment AND Plan 1. Preop cardiovascular exam Z01.810 Plan His preoperative cardiovascular status appears to be stable. I would recommend at this time no further testing. He recently had an echocardiogram with demonstrated preserved ejection fraction and is stable transaortic valve gradient. He does have fine rales still and I would suggest that we place him on a low dose of Lasix prior to his surgery. No cardiac intervention needs to be undertaken at this time he should continue all his medications up to and including the day of surgery. The apixaban can be discontinued at least 72 hours prior to the intended surgery. 2. Paroxysmal atrial fibrillation I48.0 Plan He appears to have paroxysmal atrial fibrillation and currently appears to be in sinus rhythm he will remain anticoagulated and rate controlled with the beta-lisa in the anticoagulation can be discontinued at the appropriate time. 3. History of aortic valve replacement with bioprosthetic valve Z95.3 Trifecta GT Tissue Heart Valve Serial # [id number] Model [id number]- [id number] @ [facility] Plan He does have a history of aortic valve replacement with a bioprosthetic valve. His most recent echocardiogram demonstrated ejection fraction of 60%, stage III diastolic dysfunction, mild left atrial enlargement, the peak gradient across the aortic valve was 22 mmHg with a mean gradient of 11 mmHg and pulmonary systolic pressure 34 mmHg. My recommendation will be for him to start Lasix 40 mg a day and he would also need antibiotic prophylaxis as appropriate for his urologic surgery. 4. Essential hypertension I10 Plan His blood pressure appears to be under good control on the beta-lisa as well as the fosinopril. No other changes will be made. 5. Dyslipidemia E78.5 Plan He does have a history of hyperlipidemia for which she remains on medium intensity statin. His most recent lipid profile appears to be from 2016 I do not have a more recent copy of this. Thank you for allowing me to participate in the care of your patient. 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) Coding Level of Care Code Off vis,new,level 5 Diagnoses Preop cardiovascular exam Z01.810 Paroxysmal atrial fibrillation I48.0 History of aortic valve replacement with bioprosthetic valve Z95.3 Essential hypertension I10 Hypertension type: essential hypertension Dyslipidemia E78.5 Coding Level of Care Code Off vis,new,level 5 Diagnoses Preop cardiovascular exam Z01.810 Paroxysmal atrial fibrillation I48.0 History of aortic valve replacement with bioprosthetic valve Z95.3 Essential hypertension I10 Hypertension type: essential hypertension Dyslipidemia E78.5 09/25/17 1622 <Electronically signed by Lucas Glasgow MD> Date Lucas Glasgow MD Cosigner Signature: Date (if applicable) CC: KYLEIGH CARRASCO 12 LEAD ELECTROCARDIOGRAM Observed: 09/23/2017 Status: F Source: [place] 10:46 AM [facility] REPOSITORY [facility] Cardiovascular Services [address] [place] [address] 12 Lead EKG 09/18/17 1141 MR#: [id number] Acct: [id number] Name: PRESTON DURBIN Rep #: [id number] : 1940 76 From: Francisco Javier Hooper MD Attending Dr: Rosalia Laws Status: DIS IN Ordering Dr: Rome Zambrano MD Date: 09/18/17 [place] [facility] Sex: M C Admitted: 09/18/17 Test Reason : FLANK PAIN Blood Pressure : / mmHG Vent. Rate : 072 BPM Atrial Rate : 072 BPM P-R Int : 158 ms QRS Dur : 084 ms QT Int : 386 ms P-R-T Axes : -17 001 008 degrees QTc Int : 422 ms Normal sinus rhythm with sinus arrhythmia Normal ECG Confirmed by FRANCISCO JAVIER HOOPER ([id number]), senior editor ANTIONETTE NYE ([id number]) on 09/23/2017 10:45:47 AM Referred By: CLOVIS VILLASEÑOR Confirmed By:FRANCISCO JAVIER HOOPER 09/23/17 1045 Date Francisco Javier Hooper MD CC: Rosalia Laws; Rome Zambrano MD; KYLEIGH CARRASCO Signed BEDSIDE GLUCOSE Collected: 09/20/2017 Status: F Source: [place] 11:09 AM [facility] REPOSITORY TYPE CODE TESTS RESULT OUT OF REFERENCE UNITS RANGE LAB L501.080 70-110 mg/dL High BEDSIDE GLU 127 Result Comment: MANAGEMENT OF PATIENT CARE PER NURSING PROTOCOL Performed By: #### L501.080 #### [facility] Point of Care [address] [place] [address] DISCHARGE INSTRUCTION Observed: 09/20/2017 Status: F Source: [place] 8:11 AM [facility] REPOSITORY [facility] Medical Records Department [address] [place] [address] Instructions for Home/Discharge Instructions 09/20/17 0729 MR#: [id number] Acct: [id number] Name: PRESTON DURBIN Rep #: [id number] : 1940 76 From: Rosalia Laws PCP: KYLEIGH CARRASCO Status: ADM IN ADDENDUM by Rosalia Laws on 09/20/17 at 0811 ADDITIONAL INSTRUCTIONS: Please have repeat basic metabolic panel with your primary care at follow-up to assure continued improvement. Date Rosalia Laws cc: Isa Guzman DO; Dangelo Alvarado MD; KYLEIGH CARRASCO * Signed - Discharge Diagnoses Current Active Problems: Current Active and Chronic Problems (1) Acute kidney injury secondary to ATN, Obstructive Nephropathy secondary to BL Hydronephrosis and Hydroureter secondary to Mass Lesion at the Bladder Base, Concurrent BPH (2) PAF (3) Valvular Heart Disease w/ History of Bioprosthetic AVR (4) Diabetes mellitus type II (5) Hyperlipidemia (6) Hypertension (7) Macrocytic Anemia (8) GERD (9) Severe-Moderate Protein-Calorie Malnutrition You will use the following diet at home:: Calorie/Carbohydrate Controlled (specify 1200, 1400, etc) - 1800, Cardiac Your food should be the consistency of: Regular Your liquids should be the consistency of: Regular/Thin Discharge Activity: - - Advise careful activity given now indwelling crump catheter pending re-evaluation per urology. May resume sexual activity in: - - Defer until cleared per Urology given concurrent crump catheter usage. Weight Bearing Status: Weight bearing as tolerated Call your doctor if you observe: Fever of 101 or Higher, Inability to urinate, Inability to have a bowel movement, Shortness of breath, Dizziness, Fainting spells, Chest pain, Uncontrolled pain Instructions: ED Catheter Care Crump, Discharge Instructions for Acute Kidney Injury Additional Instructions: Please maintain crump catheter, plan follow-up with Cardiology for clearance for operative intervention per Dr. Alvarado and additionally follow-up with Dr. Guzman, Nephrology. Allergies/Adverse Reactions: Allergies albuterol Allergy (Verified 09/18/17 11:04) Unknown clonazepam Allergy (Verified 09/18/17 11:04) Unknown ibuprofen Allergy (Verified 09/18/17 11:04) Unknown ipratropium Allergy (Verified 09/18/17 11:04) Unknown aspirin Adverse Reaction (Verified 09/18/17 11:04) Vomiting pt states he vomits blood Medications to take at Discharge ALPRAZolam [Xanax] 0.5 mg PO 10/24/15 Ascorbic Acid [Vitamin C] 1,000 mg PO DAILY 10/24/15 Fosinopril Sodium [Monopril] 10 mg PO DAILY 10/24/15 Garlic 1 mg PO DAILY 10/24/15 Metformin HCl [Glucophage] 1,000 mg PO BIDCM 10/24/15 Multivitamin [Daily Multiple Vitamin] 1 each PO DAILY 10/24/15 Orion-3 Fatty Acids/Fish Oil [Orion 3 1,000 mg Softgel] 1 each PO DAILY 10/24/15 Simvastatin [Zocor] 20 mg PO QHS 10/24/15 Vitamin B Complex 1 each PO DAILY 10/24/15 Vitamin E 1,000 unit PO DAILY 10/24/15 Metoprolol Tartrate [Lopressor (beta lisa)] 50 mg PO BID #60 tablet 10/25/15 Apixaban [Eliquis] 5 mg PO BID 07/08/17 Acetaminophen [Tylenol] 500 mg PO Q6H PRN PRN 09/18/17 Curamin 3 tab PO QHS 09/18/17 Cyanocobalamin (Vitamin B-12) [Vitamin B-12] 5,000 mcg SL BID 09/18/17 Gabriella Extract [Gabriella] 1,000 mg PO BID 09/18/17 Methylsulfonylmethane [MSM] 1,500 mg PO TID 09/18/17 Niacinamide 500 mg PO DAILY 09/18/17 Pyridoxine HCl [Vitamin B6] 100 mg PO DAILY 09/18/17 Sodium Chloride 1 gm PO DAILY 09/18/17 Ubidecarenone [Co Q-10] 200 mg PO DAILY 09/18/17 Vanadyl Sulfate 10 mg PO DAILY 09/18/17 Ferrous Gluconate 325 mg PO BIDCM tablet 09/20/17 Primary Care Physician: Kyleigh Carrasco [Primary Care Provider] - Please follow up with your Primary Care Physician in: Follow- up within 3-5 days to review admission. Please Follow Up With: Lucas Glasgow MD When: Follow-up within 3-5 days for cardiac clearance evaluation, may see COMPLIANCE ANALYST. Please Follow Up With: Dangelo Alvarado MD When: Follow-up within 1 week for operative set-up, re-evaluation. Please Follow Up With: Isa Guzman DO When: Follow-up 2-4 weeks. Proposed Discharge Date: 09/20/17 09/20/17 0736 <Electronically signed by Rosalia Laws > Date Rosalia Laws CC: Isa Guzman DO; Dangelo Alvarado MD; KYLEIGH CARRASCO DISCHARGE SUMMARY Observed: 09/20/2017 Status: F Source: [place] 8:10 AM [facility] REPOSITORY [facility] Medical Records Department [address] [place] [address] Discharge Summary 09/20/17 0736 MR#: [id number] Acct: [id number] Name: PRESTON DURBIN Rep #: [id number] : 1940 76 From: Rosalia Laws PCP: KYLEIGH CARRASCO Status: ADM IN Location: [place] [address] Discharge Date and Diagnosis - Problem List Patient Problems: Active and Suspected Problems Acute renal failure (Acute) H/O heart valve replacement with bioprosthetic valve (Acute) BPH with urinary obstruction (Acute) Urinary retention (Acute) Date of Admission: 09/18/17 Date of Discharge: 09/20/17 - Primary Discharge Diagnosis Active and Suspected Problems (1) Acute kidney injury secondary to ATN, Obstructive Nephropathy secondary to BL Hydronephrosis and Hydroureter secondary to Mass Lesion at the Bladder Base, Concurrent BPH (2) PAF (3) Valvular Heart Disease w/ History of Bioprosthetic AVR (4) Diabetes mellitus type II (5) Hyperlipidemia (6) Hypertension (7) Macrocytic Anemia (8) GERD (9) Severe-Moderate Protein-Calorie Malnutrition - Secondary Discharge Diagnosis Chronic Problems Hypertension (Chronic) Diabetes mellitus type 2 in nonobese (Chronic) Hospital Course and Treatment Dr. Alvarado Urology Dr. Guzman Nephrology Operations: None Procedures: 2-D Echocardiogram, EKG Summary of Care Provided: The patient is a 76 y/o M w/ PMHx: Valvular Heart Disease w/ History of Bioprosthetic AVR, PAF, HTN, HLD, Diabetes mellitus type II who presented to the [facility] ED on 09/18/17 w/ onset low back discomfort worsening over the last several days with difficulty with urination including hesitation, incomplete emptying and dribbling with recent [facility] evaluation with PSA 34 with planned urology evaluation in the future. ED CT A/P w/ bilateral hydronephrosis and hydroureter most likely secondary to the mass seen at the base of the bladder worse on the right side, sigmoid diverticulosis, atherosclerotic plaque formation of the abdominal aorta and the origin of the major visceral branches, admission BUN/Cr 46/3.47, prior baseline creatinine noted to be normal range, 09/19/17 BUN/Cr 35/2.04-->09/20/17 BUN/Cr 20/1.31, Urology evaluated, crump placed in the ED with improving function as noted, Nephrology consulted and will follow outpatient. ECHO obtained w/ normal LV size, normal LV systolic function, EF 60%, transmitral diastolic flow velocities suggestive of severe diastolic dysfunction, bioprosthetic aortic valve in place. 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 Glasgow) with then follow-up in the office with Dr. Alvarado in 1 week, continue Eliquis, continue metoprolol. HgbA1c 6.2%, nutrition consulted for diet education and teaching to improve operative outcomes and given appearance of malnutrition. 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 Patient discharged to home on his home regimen given renal function normalization with additionally follow-up with his PCP. DAY OF DISCHARGE PROGRESS NOTE: Subjective: Patient without acute event overnight per self and nursing report. Patient denies fever, chills, nausea, emesis, abdominal pain, chest pain or dyspnea. Patient agreeable to discharge to home per recommendation via PT/OT evaluation. Patient will be discharged with follow-up with primary care physician within 3-5 days in addition to follow-up with Cardiology, Urology and Nephrology. Objective: T 98.3, heart rate 78, BP 143/75, respiratory rate 16, 98% on room air. Physical Examination: General: awake, alert, oriented x 3 and cooperative, seated upright in bed, NAD. Skin: normal color, turgor, no icterus, cyanosis except occasional extremity very staged ecchymoses. HEENT: AT/NC, EOMI, PERRLA, MMM. Lungs: Diminished breath sounds bases, moderate effort, no rales, ronchi or wheezing. Heart: Regular rate and rhythm; no gallop, rub audible, SM, s/p AVR. Abdomen: soft, thin/cachectic appearance, minimal suprapubic TTP, ND, normal BS, crump in place. Extremities: no cyanosis, clubbing, or edema. Neurological: patient awake, alert, oriented x 3; cognitive function intact; pupils equally reactive to light and accomodation; cranial nerves II-XII grossly normal, moving all 4 extremities, no focal deficits, strength improved, mildly to moderately globally decreased. Psychiatric: affect appears normal, no acute evidence of depressive or anxiety feelings. Assessment and Plan: Please see hospital summary above. Discharge Activity: - - Advise careful activity given now indwelling crump catheter pending re-evaluation per urology. May resume sexual activity in: - - Defer until cleared per Urology given concurrent crump catheter usage. Weight Bearing Status: Weight bearing as tolerated Call your doctor if you observe: Fever of 101 or Higher, Inability to urinate, Inability to have a bowel movement, Shortness of breath, Dizziness, Fainting spells, Chest pain, Uncontrolled pain Home Medications: Medications to take at Discharge ALPRAZolam [Xanax] 0.5 mg PO 10/24/15 Ascorbic Acid [Vitamin C] 1,000 mg PO DAILY 10/24/15 Fosinopril Sodium [Monopril] 10 mg PO DAILY 10/24/15 Garlic 1 mg PO DAILY 10/24/15 Metformin HCl [Glucophage] 1,000 mg PO BIDCM 10/24/15 Multivitamin [Daily Multiple Vitamin] 1 each PO DAILY 10/24/15 Orion-3 Fatty Acids/Fish Oil [Orion 3 1,000 mg Softgel] 1 each PO DAILY 10/24/15 Simvastatin [Zocor] 20 mg PO QHS 10/24/15 Vitamin B Complex 1 each PO DAILY 10/24/15 Vitamin E 1,000 unit PO DAILY 10/24/15 Metoprolol Tartrate [Lopressor (beta lisa)] 50 mg PO BID #60 tablet 10/25/15 Apixaban [Eliquis] 5 mg PO BID 07/08/17 Acetaminophen [Tylenol] 500 mg PO Q6H PRN PRN 09/18/17 Curamin 3 tab PO QHS 09/18/17 Cyanocobalamin (Vitamin B-12) [Vitamin B-12] 5,000 mcg SL BID 09/18/17 Gabriella Extract [Gabriella] 1,000 mg PO BID 09/18/17 Methylsulfonylmethane [MSM] 1,500 mg PO TID 09/18/17 Niacinamide 500 mg PO DAILY 09/18/17 Pyridoxine HCl [Vitamin B6] 100 mg PO DAILY 09/18/17 Sodium Chloride 1 gm PO DAILY 09/18/17 Ubidecarenone [Co Q-10] 200 mg PO DAILY 09/18/17 Vanadyl Sulfate 10 mg PO DAILY 09/18/17 Ferrous Gluconate 325 mg PO BIDCM tablet 09/20/17 Primary Care Physician: Kyleigh Carrasco [Primary Care Provider] - Please follow up with your Primary Care Physician in: Follow- up within 3-5 days to review admission. Please Follow Up With: Lucas Glasgow MD When: Follow-up within 3-5 days for cardiac clearance evaluation, may see COMPLIANCE ANALYST. Please Follow Up With: Dangelo Alvarado MD When: Follow-up within 1 week for operative set-up, re-evaluation. Please Follow Up With: Isa Guzman DO When: Follow-up 2-4 weeks. Patient Instructions: Discharge Instructions for Acute Kidney Injury, ED Catheter Care Crump Disposition: Home Minutes spent on discharge:: 35 Patient Condition:: Fair Medical Necessity - Tobacco Use Smoking Status: Never smoker Tobacco Use: Secondhand Meaningful Use Info Meaningful Use Diagnoses (Choose all that apply): None applicable Code Visit Inpatient E AND M: 19427 Disch Hosp 09/20/17 0810 <Electronically signed by Rosalia Laws > Date Rosalia Laws Cosigner Signature (if applicable): Date CC: Rosalia Laws; KYLEIGH CARRASCO Signed BEDSIDE GLUCOSE Collected: 09/20/2017 Status: F Source: [place] 6:50 AM [facility] REPOSITORY TYPE CODE TESTS RESULT OUT OF REFERENCE UNITS RANGE LAB L501.080 70-110 mg/dL High BEDSIDE GLU 134 Result Comment: MANAGEMENT OF PATIENT CARE PER NURSING PROTOCOL Performed By: #### L501.080 #### [facility] [place] [address] CBC W/DIFF, AUTOMATED Collected: 09/20/2017 Status: F Source: [place] 6:00 AM [facility] REPOSITORY TYPE CODE TESTS RESULT OUT OF RANGE REFERENCE UNITS LAB L100.1000 4.4-11.0 K/mm3 Normal WBC 7.5 LAB L100.1200 4.6-6.2 M/mm3 Low RBC 3.52 LAB L100.1300 13.0-16.5 g/dl Low HGB 11.4 LAB L100.1400 40-54 % Low HCT 33.5 LAB L100.1500 80-94 fL High MCV 95.2 LAB L100.1600 27.0-32.0 pg High MCH 32.4 LAB L100.1700 32-36 g/gl Normal MCHC 34.0 LAB L100.1810 11.6-14.6 % Normal RDW CV 12.6 LAB L100.1820 35.1-43.9 fl Normal RDW SD 42.6 LAB L100.1900 150-450 K/mm3 Normal PLT 249 LAB L100.2000 6.2-12.0 fl Normal MPV 10.3 LAB L100.2100 47-70 % Normal NEUT% 62.7 LAB L100.2200 19-41 % Normal LY% 24.8 LAB L100.2300 0-10 % Normal MONO% 10.0 LAB L100.2400 0-5 % Normal EO% 2.1 LAB L100.2500 0-1 % Normal BASO% 0.3 LAB L100.2550 0.0-0.9 % Normal IM GRAN % 0.100 Result Comment: IG% - Immature Granulocytes (promyelocytes, myelocytes and metamyelocytes) > 1% indicates that a LEFT SHIFT is Present. LAB L100.2620 2.0-7.7 X10 3/uL Normal Absolute Neut 4.7 LAB L100.2720 0.83-4.51 X10 3/ul Normal Absolute Lymph 1.86 Performed By: #### L100.0100 #### [facility] [address] [place], [address] BASIC METABOLIC Collected: 09/20/2017 Status: F Source: [place] PROFILE (BMP) 6:00 AM [facility] REPOSITORY TYPE CODE TESTS RESULT OUT OF RANGE REFERENCE UNITS LAB L501.0100 74-106 mg/dL High GLU 150 Result Comment: Fasting Glucose result greater than or equal to 126 mg/dL suggests DIABETES MELLITUS per A.D.A. criteria. Please note revised GLUCOSE reference range effective 2017. LAB L501.1000 7-18 mg/dL High BUN 20 LAB L501.1100 0.70-1.30 mg/dL High CREAT,SERUM 1.31 Result Comment: The validity of the calculated GFR AND GFRAA in patients over 70 years has not been determined. Clinical correlation is essential. LAB L501.1110 >60 mL/min Low EST GFR 56 Result Comment: Non- GFR Calc LAB L501.1115 >60 mL/min Normal EST GFR - AA 68 Result Comment: GFR Calc LAB L501.1255 ml/min Normal Estimated CRCL 44.15 LAB L501.1300 10-20 RATIO Normal BUN/CRE 15.3 LAB L501.2200 8.5-10 mg/dL Low .1 CA 7.8 LAB L501.5300 136-14 mmol/L Normal 5 NA 142 LAB L501.5600 3.5-5. mmol/L Normal 1 K 3.8 LAB L501.5900 98-107 mmol/L High CL 114 LAB L501.6100 21.0-3 mmol/L Normal 2.0 CO2 22.0 LAB L501.6200 5-15 Normal GAP 6 Performed By: #### L500.2500 #### [facility] [address] [place], [place], [address] BEDSIDE GLUCOSE Collected: 09/19/2017 Status: F Source: [place] 11:00 PM [facility] REPOSITORY TYPE CODE TESTS RESULT OUT OF REFERENCE UNITS RANGE LAB L501.080 70-110 mg/dL High BEDSIDE GLU 142 Result Comment: MANAGEMENT OF PATIENT CARE PER NURSING PROTOCOL Performed By: #### L501.080 #### [facility] Point of Care [address] [place] [address] ECHOCARDIOGRAM COMPLETE Observed: 09/19/2017 Status: F Source: [place] 5:10 PM [facility] REPOSITORY [facility] Cardiovascular Services [address] [place] [address] Echo Complete 09/19/17 1416 MR#: [id number] Acct: [id number] Name: PRESTON DURBIN Rep #: [id number] : 1940 76 From: Lucas Glasgow MD Attending Dr: Rosalia Laws Status: ADM IN Ordering Dr: Rosalia Laws Date: 09/19/17 [place] [facility] [place] Sex: M C Admitted: 09/18/17 Reason For Study: Arrhythmia Procedure This was a 2D Doppler, Color Flow transthoracic echocardiogram. Patient intermittently in A. fib during exam. Exam performed portable in patient room. Left Ventricle Normal LV size. Left ventricular systolic function is normal. The estimated ejection fraction is 60 %. Transmitral diastolic flow velocities suggest severe (stage 3) diastolic dysfunction. No regional wall motion abnormalities noted. Right Ventricle Normal RV size. Normal systolic function. Atria The left atrium is mildly enlarged. Normal right atrium. Mitral Valve Normal mitral valve. Tricuspid Valve Normal tricuspid valve. Mild (1+) tricuspid valve insufficiency. Pulmonary artery systolic pressure is 34 mmHg. Aortic Valve Peak aortic valve gradient 22 mmHg. Mean aortic valve gradient 11 mmHg. Bioprosthetic aortic valve. Pulmonic Valve Normal pulmonic valve. Great Vessels Normal aortic root. The pulmonary artery is normal size. Normal inferior vena cava. Pericardium/Pleural No pericardial effusion. MMode/2D Measurements AND Calculations LVIDd: 4.5 cm IVSd: 1.0 cm LVOT diam: 2.2 cm LVIDs: 2.8 cm LVPWd: 0.88 cm LVOT area: 3.8 cm2 RVDd: 3.8 cm FS: 37.7 % Ao root diam: 3.6 cm LAV(MOD-bp): 73.4 ml LA A4 area: 23.8 cm2 LA dimension: 3.8 cm LAV(MOD-bp) Indexed: 37.2 ml/m2 LAV(MOD-sp2): 66.1 ml LAV(MOD-sp4): 70.7 ml RA A4 area: 17.8 cm2 Doppler Measurements AND Calculations MV E max yessica: 122.0 cm/sec Lat Peak E' Yessica: 9.3 cm/sec Med Peak E' Yessica: 7.4 cm/sec MV A max yessica: 91.9 cm/sec E/E' lat: 13.1 E/E' med: 16.6 MV E/A: 1.3 Ao V2 max: 234.4 cm/sec LV V1 max: 154.3 cm/sec SV(LVOT): 127.5 ml Ao max P.0 mmHg LV V1 max P.5 mmHg Ao V2 mean: 159.7 cm/sec LV V1 mean P.5 mmHg Ao mean P.4 mmHg LV V1 mean: 112.0 cm/sec Ao V2 VTI: 46.5 cm LV V1 VTI: 33.6 cm ESTUARDO(I,D): 2.7 cm2 ESTUARDO(V,D): 2.5 cm2 PA V2 max: 103.7 cm/sec TR max yessica: 279.6 cm/sec TR max P.3 mmHg Interpretation Summary Normal LV size. Left ventricular systolic function is normal. The estimated ejection fraction is 60 %. Transmitral diastolic flow velocities suggest severe (stage 3) diastolic dysfunction Bioprosthetic aortic valve. Ordering Physician: Rosalia Laws Referring Physician: Kyleigh Carrasco Performed By: Georgina Skinner RDCS 09/19/17 1710 Date Lucas Glasgow MD CC: Rosalia CARRASCO Date Dictated: 09/19/17 1416 Date Transcribed: 09/19/171709 Child Support Case Officer: Signed BEDSIDE GLUCOSE Collected: 09/19/2017 Status: F Source: [place] 3:55 PM [facility] REPOSITORY TYPE CODE TESTS RESULT OUT OF REFERENCE UNITS RANGE LAB L501.080 70-110 mg/dL High BEDSIDE GLU 118 Result Comment: MANAGEMENT OF PATIENT CARE PER NURSING PROTOCOL Performed By: #### L501.080 #### [facility] Point of Care [address] [place], [place] [address] BEDSIDE GLUCOSE Collected: 09/19/2017 Status: F Source: [place] 12:06 PM [facility] REPOSITORY TYPE CODE TESTS RESULT OUT OF REFERENCE UNITS RANGE LAB L501.080 70-110 mg/dL High BEDSIDE GLU 166 Result Comment: MANAGEMENT OF PATIENT CARE PER NURSING PROTOCOL Performed By: #### L501.080 #### [facility] Point of Care [address] [place] [address] CONSULTATION Observed: 09/19/2017 Status: F Source: [place] 11:56 AM [facility] REPOSITORY [facility] Medical Records Department [address] [place] [address] Consultation 09/19/17 1000 MR#: [id number] Acct: [id number] Name: PRESTON DURBIN Rep #: [id number] : 1940 76 From: Isa Guzman DO PCP: KYLEIGH CARRASCO Status: ADM IN Y [place] [facility] [place] [id number] Consultation - Renal 09/19/17 PCP/ Referring MD: Requesting physician: [] Primary care physician: Kyleigh Carrasco Reason for Consultation:: JUAN JOSE - History of Present Illness History of Present Illness: Patient is a 76 yo WM who presents to ER on 09/18 with low back pain past few days. He had trouble with urine flow, hesitancy, dribbling, suprapubic pain. He denied hematuria, dysuria. He was in acute renal failure with creatinine at 3.47, potassium elevated at 5.1. Creatinine improved to 2.0 today after crump catheter insertion. He had 1.4 liter urine drained immediately. 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 Urology consulted who recommended crump catheter on discharge to home. His back pain improved. He continues to have blood tinged urine. Denied nausea, vomiting, shortness of breath, chest pain. Denied edema. He has a history of atrial fibrillation on anticoagulation, AVR in October 2016. He lives alone with son in [place] who visits occasionally. He has long standing diabetes without complications. Last creatinine 0.9 in 2016 in [place] records. - Allergies Allergies: Allergies albuterol Allergy (Verified 09/18/17 11:04) Unknown clonazepam Allergy (Verified 09/18/17 11:04) Unknown ibuprofen Allergy (Verified 09/18/17 11:04) Unknown ipratropium Allergy (Verified 09/18/17 11:04) Unknown aspirin Adverse Reaction (Verified 09/18/17 11:04) Vomiting pt states he vomits blood - Current Medications Current Medications: Current Medications Acetaminophen (Tylenol) 650 mg PO Q6H PRN PRN PRN Reason: Mild Pain (1-3)/Temp > 100.7 F Last Admin: 09/19/17 03:54 Dose: 650 mg Al Hydroxide/Mg Hydroxide (Mylanta Ii) 30 ml PO Q6H PRN PRN PRN Reason: Gastric burning Apixaban (Eliquis) 2.5 mg PO BID [facility] Last Admin: 09/19/17 08:11 Dose: 2.5 mg Ascorbic Acid (Vitamin C) 1,000 mg PO DAILY@0800 [facility] Atorvastatin Calcium (Lipitor) 10 mg PO QHS [facility] Last Admin: 09/18/17 21:48 Dose: 10 mg Cyanocobalamin (Vitamin B12) 1,000 mcg PO DAILY@0800 [facility] Dextrose (D50w Syringe) 0 gm IV X1 PRN; Protocol PRN Reason: Hypoglycemia Ferrous Gluconate (Ferrous Gluconate) [facility] Glucagon () 1 mg IM .X1 PRN PRN Reason: Hypoglycemia Dextrose/Sodium Chloride () 1,000 mls @ 150 mls/hr IV .Q6H40M [facility] Last Admin: 09/19/17 03:54 Dose: 150 mls/hr Insulin Human Lispro (Humalog Kwikpen (Bkc)) 0 unit SQ ACHS [facility] PRN Reason: Protocol Last Admin: 09/19/17 06:35 Dose: 1 units Magnesium Hydroxide (Milk Of Magnesia) 30 ml PO DAILY PRN PRN PRN Reason: Constipation Metoprolol Tartrate (Lopressor (Beta Lisa)) 50 mg PO BID [facility] Last Admin: 09/19/17 08:11 Dose: 50 mg Multivitamins/Minerals (Multivitamin With Minerals) 1 tablet [facility] Nutritional Formula (Lactose Free) (Glucerna Shake) 120 ml PO 4X/DAY [facility] Last Admin: 09/18/17 22:45 Dose: 120 ml Ondansetron HCl (Zofran) 4 mg IV Q8H PRN PRN PRN Reason: NAUSEA Oxycodone HCl (Oxyir) 5 - 10 mg PO Q4H PRN PRN PRN Reason: MOD-SEVERE PAIN (4-10/10) Pantoprazole Sodium (Protonix) 20 mg PO DAILY [facility] Last Admin: 09/19/17 08:12 Dose: 20 mg Pyridoxine HCl (Vitamin B-6) 100 mg PO DAILY [facility] Sodium Chloride () 5 - 30 ml IV UD PRN PRN Reason: SALINE FLUSH Zolpidem Tartrate (Ambien (Generic)) 5 mg PO QHS PRN PRN PRN Reason: INSOMNIA - Past Medical History Past Medical History (Chronic Problems): Chronic Problems Hypertension (Chronic) Diabetes mellitus type 2 in nonobese (Chronic) - Past Surgical History Surgical History: cataract - bilateral, - - aortic valve replacement October 2016, 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 Denies: Anorexia, Chills, Fever, Weight Change Eyes: Denies: Blurred vision HEENT: Denies: Head Aches Cardiovascular: Reports: - - AVR. Denies: Chest Pain, Edema, Light Headedness Respiratory: Denies: Cough, Shortness of breath upon exertion Gastrointestinal: Reports: Abdominal Pain - suprapubic pain, Diarrhea - x2 days. Denies: Nausea, Vomiting Genitourinary: Reports: Hesitancy, Retention. Denies: Dysuria, Hematuria Musculoskeletal: Reports: - - no leg swelling. Denies: Arm Pain Skin: Denies: Rash Neurological: Reports: Tremor - chronic. Denies: Incoordination, Numbness, Seizures Psychiatric: Denies: Anxiety, Depression Hematologic/ Lymphatic: Denies: Anemia, Hx of blood clot Patient Problems: Active and Suspected Problems Acute renal failure (Acute) H/O heart valve replacement with bioprosthetic valve (Acute) BPH with urinary obstruction (Acute) Urinary retention (Acute) - Physical Exam General: Alert, Oriented x3, Cooperative, No apparent distress HEENT: PERRLA, EOMI Neck: Supple, No JVD Lungs: Clear to auscultation Cardiovascular: Irregular Rate Abdomen: Bowel Sounds Present, Soft, Non Tender, Non-Distended Extremities: No edema Skin: No rashes Musculoskeletal: Cachexia Lymphatic: No Cervical, Supraclavicular, or Inguinal Adenopathy Neurological: Cranial nerves II-XII grossly intact, - - chronic intentional tremor Psych/Mental Status: Appropriate, Alert and oriented to time, place, person, mood and affect Vital Signs Temp Pulse Resp BP Pulse Ox 98.0 F 90 14 123/62 H 96 09/19/17 07:50 09/19/17 08:11 09/19/17 07:50 09/19/17 07:50 09/19/17 07:50 Oxygen Delivery Method Room Air Intake and Output for Last 24 Hours Intake Total 1374 / 1374 987 / 987 Output Total 1000 / 3500 1000 / 1000 Balance 374 / -2126 -13 / -13 Laboratory Tests Past 24 Hrs WBC 9.6 RBC 3.23 L Hgb 10.4 L Hct 31.2 L MCV 96.6 H MCH 32.2 H WBC RBC Hgb Hct MCV MCH POC Glucose POC Glucose 157 H 160 H 124 H Clinical Impression(s) from Imaging Studies Abdomen/Pelvis CT 09/18/17 11:17 IMPRESSION: Bilateral hydronephrosis and hydroureter most likely secondary to the mass seen at the base of the bladder worse on the right side. Sigmoid diverticulosis. Atherosclerotic plaque formation of the abdominal aorta and origin of the major visceral branches. Electronically Signed: Javier Unger MD at 14:52 EDT Tel [phone], Service support , Assessment/Plan All Active Problems Acute renal failure (Acute) H/O heart valve replacement with bioprosthetic valve (Acute) BPH with urinary obstruction (Acute) Urinary retention (Acute) Aortic stenosis (Acute) Atrial fibrillation with rapid ventricular response (Acute) 1. JUAN JOSE due to ATN, obstructive nephropathy. Creatinine 3.47 improved to 2.04 today. Baseline creatinine 0.9 in 2015. Continue with crump to CD. No dialysis needed. He should follow up in office in 2-4 wks with labs 2. Hyperkalemia stable 3. DM2 primary mgmt 4. BPH with LUTS. following. Await urine c/s 5. AVR, atrial fibrillation. 6. HTN stable Thank you 09/19/17 1156 <Electronically signed by Isa Guzman DO> Date Isa Guzman DO Cosigner Signature (if applicable): Date CC: Isa Guzman DO; Dangelo Alvarado MD; KYLEIGH CARRASCO Signed CONSULTATION Observed: 09/19/2017 Status: F Source: [place] 7:38 AM [facility] REPOSITORY [facility] Medical Records Department [address] [place] [address] Consultation 09/19/17 0734 MR#: [id number] Acct: [id number] Name: PRESTON DURBIN Rep #: [id number] : 1940 76 From: Dangelo Alvarado MD PCP: KYLEIGH CARRASCO Status: ADM IN Y [address]: [address] Problem List (1) BPH with urinary obstruction Status: Acute (2) Urinary retention Status: Acute Reason for Consult Date of Consultation: 09/19/17 Reason for Consultation: Urinary retention and bilateral hydronephrosis History of Present Illness: The patient is a 76 year old male with multiple medical problems presented to the emergency room with retention of urine and an elevated creatinine, CAT scan was done that demonstrated a very large prostate with obstruction, PSA was elevated but in the face of her recent obstruction and catheter could be falsely elevated, exam of the prostate was benign just a very large prostate nice and smooth. He has multiple medical problems including cardiac disease and had a aortic valve replacement in the past. Denies any chest pain does state he has some shortness of breath with activity. Past Medical History Past Medical History (Chronic Problems): Chronic Problems Hypertension (Chronic) Diabetes mellitus type 2 in nonobese (Chronic) Allergies albuterol Allergy (Verified 09/18/17 11:04) Unknown clonazepam Allergy (Verified 09/18/17 11:04) Unknown ibuprofen Allergy (Verified 09/18/17 11:04) Unknown ipratropium Allergy (Verified 09/18/17 11:04) Unknown aspirin Adverse Reaction (Verified 09/18/17 11:04) Vomiting pt states he vomits blood Home Medications: Ambulatory Orders Medication Instructions Recorded Surgical History: - - Heart valve replacement Psychiatric History: No pertinent psych hx Lives: Alone Smoking Status: Never smoker Tobacco Use: Secondhand Alcohol: None Drugs: None - *Family History Sibling History Items: Heart Disease Review of Systems Constitutional: Denies: Chills, Fever, Weight Change HEENT: Denies: Head Aches, Sinus Congestion, Sinus Drainage Cardiovascular: Denies: Chest Pain, Palpitations Respiratory: Reports: Shortness of Breath Gastrointestinal: Denies: Abdominal Pain, Nausea, Vomiting Genitourinary: Denies: Dysuria Musculoskeletal: Denies: Joint Pain, Joint Tenderness Skin: Denies: Rash, Wounds Neurological: Denies: Numbness, Tingling, Focal weakness Psychiatric: Denies: Anxiety, Depression, Homicidal Ideations, Suicidal Ideations Hematologic/ Lymphatic: Denies: Easy Bruising, Easy Bleeding Physical Exam - Physical Exam Vital Signs Temp 98.4 F 09/19/17 03:50 Pulse 82 09/19/17 03:53 Resp 16 09/19/17 03:50 BP 124/72 H 09/19/17 03:50 Pulse Ox 96 09/19/17 03:50 Intake AND Output Intake Total 1374 / 1374 987 / 987 Output Total 1000 / 3500 1000 / 1000 General: Alert, Oriented x3 HEENT: Atraumatic Oral: Moist Mucosa Neck: Supple Lungs: Normal air movement Cardiovascular: Regular rate Abdomen: Bowel Sounds Present, Soft, Obese Prostate: 80gm Testicle: Right Normal, Left Normal Epididymis: Right Normal, Left Normal Penis: - - Crump in place Groin: No hernia Extremities: No clubbing, No cyanosis, No edema Lymphatic: No Cervical, Supraclavicular, or Inguinal Adenopathy Neurological: Cranial nerves II-XII grossly intact Laboratory Tests Past 24 Hrs Assessment/Plan All Active Problems Acute renal failure (Acute) H/O heart valve replacement with bioprosthetic valve (Acute) BPH with urinary obstruction (Acute) Urinary retention (Acute) Aortic stenosis (Acute) Atrial fibrillation with rapid ventricular response (Acute) 76-year-old male presents to the hospital with bilateral hydronephrosis Crump catheter is in place explained to the patient he is in any prostate surgery to alleviate obstruction. He will need to go home with a Crump catheter. He is going to need cardiac evaluation and clearance before surgery because of his comorbidities and multiple medical problems if this could be accomplished while he is in the hospital that would facilitate his overall care and expedition to get in the surgery. For now enough to hold off on a TURP until he gets cardiac clearance and cardiac evaluation. Typically he gets his cardiac care up in [place] at the [facility] so we could have this accomplished here locally that would expedite his care I would appreciate it. Otherwise please let me know if there is any questions or concerns from my standpoint he can go home with a catheter all have my office call him to get him set up for surgery for a TURP as an outpatient once he is clinically stable and cardiac is clear. Please call with questions 09/19/17 7264 <Electronically signed by Dangelo Alvarado MD> Date Dangelo Alvarado MD Cosigner Signature (if applicable): Date CC: Isa Guzman DO; Dangelo Alvarado MD; KYLEIGH CARRASCO Signed BEDSIDE GLUCOSE Collected: 09/19/2017 Status: F Source: [place] 6:33 AM [facility] REPOSITORY TYPE CODE TESTS RESULT OUT OF REFERENCE UNITS RANGE LAB L501.080 70-110 mg/dL High BEDSIDE GLU 157 Result Comment: MANAGEMENT OF PATIENT CARE PER NURSING PROTOCOL Performed By: #### L501.080 #### [facility] Point of Care [facility] [place] [address] CBC W/DIFF, AUTOMATED Collected: 09/19/2017 Status: F Source: [place] 5:40 AM [facility] REPOSITORY TYPE CODE TESTS RESULT OUT OF RANGE REFERENCE UNITS LAB L100.1000 4.4-11.0 K/mm3 Normal WBC 9.6 LAB L100.1200 4.6-6.2 M/mm3 Low RBC 3.23 LAB L100.1300 13.0-16.5 g/dl Low HGB 10.4 LAB L100.1400 40-54 % Low HCT 31.2 LAB L100.1500 80-94 fL High MCV 96.6 LAB L100.1600 27.0-32.0 pg High MCH 32.2 LAB L100.1700 32-36 g/gl Normal MCHC 33.3 LAB L100.1810 11.6-14.6 % Normal RDW CV 12.8 LAB L100.1820 35.1-43.9 fl Normal RDW SD 43.4 LAB L100.1900 150-450 K/mm3 Normal PLT 242 LAB L100.2000 6.2-12.0 fl Normal MPV 10.8 LAB L100.2100 47-70 % High NEUT% 72.6 LAB L100.2200 19-41 % Low LY% 16.0 LAB L100.2300 0-10 % High MONO% 10.4 LAB L100.2400 0-5 % Normal EO% 0.6 LAB L100.2500 0-1 % Normal BASO% 0.2 LAB L100.2550 0.0-0.9 % Normal IM GRAN % 0.200 Result Comment: IG% - Immature Granulocytes (promyelocytes, myelocytes and metamyelocytes) > 1% indicates that a LEFT SHIFT is Present. LAB L100.2620 2.0-7.7 X10 3/uL Normal Absolute Neut 6.9 LAB L100.2720 0.83-4.51 X10 3/ul Normal Absolute Lymph 1.53 Performed By: #### L100.0100 #### [facility] [address] [place], [address] BASIC METABOLIC Collected: 09/19/2017 Status: F Source: [place] [facility] 5:40 AM [facility] REPOSITORY TYPE CODE TESTS RESULT OUT OF RANGE REFERENCE UNITS LAB L501.0100 74-106 mg/dL High GLU 167 Result Comment: Fasting Glucose result greater than or equal to 126 mg/dL suggests DIABETES MELLITUS per A.D.A. criteria. Please note revised GLUCOSE reference range effective 2017. LAB L501.1000 7-18 mg/dL High BUN 35 LAB L501.1100 0.70-1.30 mg/dL High CREAT,SERUM 2.04 Result Comment: The validity of the calculated GFR AND GFRAA in patients over 70 years has not been determined. Clinical correlation is essential. LAB L501.1110 >60 mL/min Low EST GFR 34 Result Comment: Non- GFR Calc LAB L501.1115 >60 mL/min Low EST GFR - AA 41 Result Comment: GFR Calc LAB L501.1255 ml/min Normal Estimated CRCL 28.35 LAB L501.1300 10-20 RATIO Normal BUN/CRE 17.2 LAB L501.2200 8.5-10 mg/dL Low .1 CA 7.6 LAB L501.5300 136-14 mmol/L Normal 5 NA 145 LAB L501.5600 3.5-5. mmol/L Normal 1 K 4.2 LAB L501.5900 98-107 mmol/L High CL 115 LAB L501.6100 21.0-3 mmol/L Normal 2.0 CO2 22.0 LAB L501.6200 5-15 Normal GAP 8 Performed By: #### L500.2500, L503.6030, L503.6550 #### [facility] [address] [facility] [place], [place], [id number] IRON+IRON BINDING Collected: 09/19/2017 Status: F Source: [facility] 5:40 AM [facility] REPOSITORY TYPE CODE TESTS RESULT OUT OF RANGE REFERENCE UNITS LAB L503.6075 250-450 ug/dL Low TIBC 206 LAB L503.6150 65-175 ug/dL Low IRON 47 LAB L503.6250 15.0-55.0 % IRON Normal SATURATION 22.8 Performed By: #### L500.2500, L503.6030, L503.6550 #### [facility] [address] [facility] [place], [place], [id number] FERRITIN Collected: 09/19/2017 Status: F Source: [place] 5:40 AM [facility] REPOSITORY TYPE CODE TESTS RESULT OUT OF RANGE REFERENCE UNITS LAB L503.6550 26-388 ng/mL Normal FERRITIN 192 Performed By: #### L500.2500, L503.6030, L503.6550 #### [facility] [address] [place], [place], [id number] HEMOGLOBIN A1C Collected: 09/19/2017 Status: F Source: [place] 5:40 AM [facility] REPOSITORY TYPE CODE TESTS RESULT OUT OF RANGE REFERENCE UNITS LAB L501.9985 4.2-6.3 % Normal HGB A1C 6.2 Performed By: #### L501.9985 #### [facility] [address] [place], [address] MAGNESIUM Collected: 09/19/2017 Status: F Source: [place] 5:40 AM [facility] REPOSITORY TYPE CODE TESTS RESULT OUT OF RANGE REFERENCE UNITS LAB L501.5200 1.6-2.6 mg/dL Normal MG 1.8 Performed By: #### L501.5200, L506.0250 #### [facility] [address] [place], [address] FOLATES, (FOLIC ACID) Collected: 09/19/2017 Status: F Source: [place] 5:40 AM [facility] REPOSITORY TYPE CODE TESTS RESULT OUT OF RANGE REFERENCE UNITS LAB L506.0250 3.1-55.4 ng/mL Normal FOLATES 21.90 Performed By: #### L501.5200, L506.0250 #### [facility] [address] [place], [address] VITAMIN B12 Collected: 09/19/2017 Status: F Source: [place] 5:40 AM [facility] REPOSITORY TYPE CODE TESTS RESULT OUT OF REFERENCE UNITS RANGE LAB L503.0105 211-911 pg/mL High Vitamin B12 > 2000 Performed By: #### L503.0105 #### [facility] [address] [place], [address] BEDSIDE GLUCOSE Collected: 09/18/2017 Status: F Source: [place] 9:50 PM [facility] REPOSITORY TYPE CODE TESTS RESULT OUT OF REFERENCE UNITS RANGE LAB L501.080 70-110 mg/dL High BEDSIDE GLU 160 Result Comment: MANAGEMENT OF PATIENT CARE PER NURSING PROTOCOL Performed By: #### L501.080 #### [facility] Point of Care [address] [facility] [place] [address] HISTORY AND PHYSICAL Observed: 09/18/2017 Status: F Source: [place] EXAM 7:54 PM [facility] REPOSITORY [facility] Medical Records Department [address] [place] [address] [place] [address] History and Physical 09/18/171908 MR#: [id number] Acct: [id number] Name: PRESTON DURBIN Rep #: [id number] : 1940 76 From: Savita Pérez MD PCP: KYLEIGH CARRASCO Status: ADM IN Y Location: [place] [address] Problem List (1) Acute renal failure Status: Acute Qualifiers: Acute renal failure type: unspecified Qualified Code(s): N17.9 - Acute kidney failure, unspecified (2) H/O heart valve replacement with bioprosthetic valve Status: Acute (3) Aortic stenosis Status: Acute Qualifiers: Cardiac valve disease etiology: etiology unspecified Qualified Code(s): I35.0 - Nonrheumatic aortic (valve) stenosis (4) Atrial fibrillation with rapid ventricular response Status: Acute (5) Hypertension Status: Chronic Qualifiers: Hypertension type: essential hypertension Qualified Code(s): I10 - Essential (primary) hypertension (6) Diabetes mellitus type 2 in nonobese Status: Chronic History of Present Illness Date of Admission: 09/18/17 Chief Complaint: low to mid back pain. Patient is a 76 yo WM, presents with JUAN JOSE, admitted on 09/18/17. He was having low back pain for past few days, gradually worsening. He also having problems with urinating for past several month with hesitation, incomplete emptying, and dribbling. He was seen at [facility] recently, where PSA was 34. He was supposed to see urologist in near future. He presented to ED today with worsening of back pain. In ED, he was found to have creatinine of 3.47. 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 Crump was inserted, had 1.4 liter of urine immediately. The back pain had improved. He also mentioned that he had few days of black stools. His Hgb is 12.1, and baseline is normal. He is on Eliquis for atrial fibrillation. Past Medical History Past Medical History (Chronic Problems): Chronic Problems Hypertension (Chronic) Diabetes mellitus type 2 in nonobese (Chronic) Allergies albuterol Allergy (Verified 09/18/17 11:04) Unknown clonazepam Allergy (Verified 09/18/17 11:04) Unknown ibuprofen Allergy (Verified 09/18/17 11:04) Unknown ipratropium Allergy (Verified 09/18/17 11:04) Unknown aspirin Adverse Reaction (Verified 09/18/17 11:04) Vomiting pt states he vomits blood Home Medications: Ambulatory Orders Medication Instructions Recorded Psychiatric History: No pertinent psych hx Smoking Status: Never smoker Tobacco Use: Secondhand - *Family History Sibling History Items: Heart Disease Review of Systems Comment: In general: Patient has been in good health, denied of any constitutional symptoms, such as weight loss, or gain, fever, chills, or night sweats. Patient denied of any profound fatigue. HEENT: Unremarkable. Patient denied of any dizziness, chronic headache, blurred vision, double vision, dry mouth, or nasal congestion. CV/respiratory: There is no exertional shortness of breath, chest pain, palpitation, wheezing, cough, claudication, cold feet, or peripheral edema. GI: Patient denied any abdominal pain, nausea, vomiting, diarrhea, constipation. +Dark stools as above. : See HPI. Neurology: Unremarkable. There is no history of seizure as an adult. Psychological: Unremarkable. Endocrine: Unremarkable. Musculoskeletal: Unremarkable. VTE Information - Inpt Only VTE Present on Admission: No VTE Mechan Device Prophylaxis: SCD's, Knee High RONAN Hose VTE Pharm Prophylaxis ordered?: Yes Patient Problems: Active and Suspected Problems Acute renal failure (Acute) H/O heart valve replacement with bioprosthetic valve (Acute) Objective: In general, patient is a well-nourished and developed adult. HEENT: Head is atraumatic, and normocephalic. Pupils are equal, round, and reactive to light and accommodations. Neck is supple. There is no lymphadenopathy, or thyromegaly. Oral mucosa is pink, and moist. There are no lesions. Heart: Auscultation is normal with regular rhythm and rate. There is no extra heart sounds, or murmurs. S1 and S2 are present. Point of maximal impulse is not displaced. Lungs: Lungs are clear to auscultation bilaterally. There is no wheezing, or crackles. Abdomen: Abdominal wall is non-tender, and non-distended. There is no palpable mass or organomegaly. Normoactive bowel sounds are present. Extremities: There is no cyanosis or clubbing. Peripheral pulses are palpable. There is no edema. Skin: There are no any skin discoloration or lesions. Neurological: CN II - XII are intact. Sensory and motor functions are grossly normal with no obvious deficit. Cerebellar functions are within normal range. Gait was not tested. - Physical Exam Vital Signs Temp Pulse Resp BP Pulse Ox 98.6 F 117 H 20 H 123/61 H 95 09/18/17 16:30 09/18/17 16:54 09/18/17 16:30 09/18/17 16:30 09/18/17 16:30 Oxygen Delivery Method Room Air Intake and Output for Last 24 Hours Intake Total 426 / 426 Output Total 500 / 3000 Balance -74 / -2574 POC Glucose POC Glucose 124 H Assessment/Plan All Active Problems Acute renal failure (Acute) H/O heart valve replacement with bioprosthetic valve (Acute) Aortic stenosis (Acute) Atrial fibrillation with rapid ventricular response (Acute) Patient is a 76 yo WM, presents with JUAN JOSE, admitted on 09/18/17. He was having low back pain for past few days, gradually worsening. He also having problems with urinating for past several month with hesitation, incomplete emptying, and dribbling. He was seen at [facility] recently, where PSA was 34. He was supposed to see urologist in near future. He presented to ED today with worsening of back pain. In ED, he was found to have creatinine of 3.47. 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 Crump was inserted, had 1.4 liter of urine immediately. The back pain had improved. He also mentioned that he had few days of black stools. His Hgb is 12.1, and baseline is normal. He is on Eliquis for atrial fibrillation. #1 JUAN JOSE. Due to post-renal failure with obstruction, likely with prostate mass. Crump is in place. He would like to follow up at [facility] eventually, but consult urology here for management of obstructive uropathy. Nephrology consult requested. IVF support to match post-obstructive diuresis. #2 Bladder mass. Likely with prostate cancer. Urology consulted. #3 DM II. Hold metformin. Sliding scale insulin was added. #4 UTI. UA is positive, await culture. Started on ceftriaxone empirically. Continue. #5 Chronic blood loss anemia. He had recent black stool, and on anticoagulation. Check Hemoccult stool. Iron panel. Monitor CBC. #6 History of with aortic valve replacement with bioprosthetic valve. #7 Chronic atrial fibrillation. Rate controlled with metoprolol. Continue Eliquis for anticoagulation. VTE prophylaxis: Eliquis po. GI prophylaxis: PPI po. He is full code. Disposition: Home in 2 to 3 days. Code Visit Inpatient E AND M: 55904 Init Hosp L3 09/18/171953 <Electronically signed by Savita Pérez MD> Date [facility] Signature: Date (if applicable) CC: KYLEIGH CARRASCO; Savita Pérez M.D. Signed EMERGENCY DEPARTMENT Observed: 09/18/2017 Status: F Source: [place] [facility] 7:00 PM [facility] REPOSITORY [facility] Medical Records Department [address] [place] [address] Emergency Department Summary 09/18/17 1307 MR#: [id number] Acct: [id number] Name: PRESTON DURBIN Rep #: [id number] : 1940 76 From: Rome Zambrano MD PCP: KYLEIGH CARRASCO Status: ADM IN - ER Visit Summary Date of Service: 09/18/17 Chief Complaint: Left flank pain History of Present Illness: The patient is a 76 M who goes to the [facility]. He is a very poor informant. He reports that he has left lower back pain that began 2 days ago. It is a sharp pain that is 10 out of 10 at worst and 8 out of 10 currently. It is worsened by nothing including movement. It is relieved by laying on the floor. He denies any nausea or vomiting. He reports that he had several episodes of black diarrhea 4 days ago. His last bowel movement was today and it was formed and black. Patient reports that he has been unable to empty his bladder for a few weeks. He states that he will sit on the toilet for 10-15 minutes and occasionally passes small volume of urine. He has not had this previously. States that he had a PSA done at the [facility] a few months ago that was 34. He has not seen a urologist. Patient denies any recent injury to his back. No fall or MVA. There is no radiation of the pain to his legs. No numbness, tingling, or weakness in his legs. He denies any fever or chills. Physical Examination: Vitals: Stable. Afebrile. General: Well-nourished and well-developed. Head: Normocephalic atraumatic. Neck: Supple, no lymphadenopathy. No JVD. Nontender. Cardiovascular: Regular rate and rhythm. 2 out of 6 systolic murmur. Respiratory: No respiratory distress. Clear to auscultation bilaterally. Abdominal: Soft, moderate suprapubic tenderness with a grossly distended bladder, nondistended, normal bowel sounds. No guarding, rebound, or peritoneal signs. Back: Nontender. No CVA or vertebral tenderness. Extremities: Nontender, no edema. Skin: Normal color, no rash. Neurologic: Alert and oriented 3. Cranial nerves II through XII are intact. Normal strength and sensation. Psych: Normal affect. Test Results: EKG is sinus at 72 with no acute changes. UA has 5-10 white blood cells, 10-25 red blood cells, and no bacteria. This was from a cath specimen. Chem-7 is more for chloride 112, glucose 173, BUN 46, creatinine 3.47. The only other creatinine we have for him was in 2016 and that time was 0.91. CBC is marked for white count of 11.9, H AND H of 12.1 35.5, 7 neutrophils 81, lymphs lites of 11. Clinical Impression(s) from Imaging Studies Abdomen/Pelvis CT 09/18/17 11:17 IMPRESSION: Bilateral hydronephrosis and hydroureter most likely secondary to the mass seen at the base of the bladder worse on the right side. Sigmoid diverticulosis. Atherosclerotic plaque formation of the abdominal aorta and origin of the major visceral branches. Electronically Signed: Javier Unger MD at 14:52 EDT Tel [phone], Service support , Emergency Department Course and Treatment: Patient had a Crump catheter placed and had immediate return of 1400 cc of urine. He was given morphine and Zofran IV. He is resting comfortably. Patient was given a dose of Rocephin IV and his urine was sent for culture. Treatment Plan: Patient has Medicare part a and B. We did discuss with the [facility] and they do not have beds. He was discussed with Dr. Alvarado and Dr. Pérez. He will be admitted for further evaluation and treatment. Disposition: Admitted in improved condition. Impression: 1. Urinary retention. 2. Acute renal insufficiency. 3. Bladder mass. This note was generated with [employer] dictation software. It may contain incorrect words, spelling, and punctuation that were not noted in review of the chart prior to signing ED Disposition - Plan for ED Patient: Chief Complaint: Flank Pain Referrals: Kyleigh Carrasco [Primary Care Provider] - What to do if you have Problems For any increased pain, shortness of breath, bleeding, nausea or vomiting, chest pain, or any unexpected problems, contact your Primary Care Provider. Call [facility] ([phone]) or report to the closest Emergency Room. Call 911 if necessary. 09/18/17 1900 <Electronically signed by Rome Zambrano MD> Date Rome Zambrano MD Cosigner Signature (If Indicated): Date CC: KYLEIGH CARRASCO BEDSIDE GLUCOSE Collected: 09/18/2017 Status: F Source: [place] 5:46 PM [facility] REPOSITORY TYPE CODE TESTS RESULT OUT OF REFERENCE UNITS RANGE LAB L501.080 70-110 mg/dL High BEDSIDE GLU 124 Result Comment: MANAGEMENT OF PATIENT CARE PER NURSING PROTOCOL Performed By: #### L501.080 #### [facility] Point of Care [address] [place], [place] [address] [address] URINALYSIS, COMPLETE Collected: 09/18/2017 Status: F Source: [place] 11:53 AM [facility] REPOSITORY Order Comment: Order Date: 09/18/17 How was Urine Obtained? CLEAN CATCH TYPE CODE TESTS RESULT OUT OF RANGE REFERENCE UNITS LAB L400.3000 Yellow COLOR Normal Straw LAB L400.3050 Clear Normal CLARITY Clear LAB L400.3200 Normal mg/dl Normal GLUCOSE, UR Normal LAB L400.3300 Negative mg/dL Normal BILIRUBIN URINE Negative LAB L400.3400 Negative mg/dl High 5 KETONE UR LAB L400.3465 1.002-1.030 Normal SP.GR. DIPSTX 1.015 LAB L400.3550 5.0 - 8.0 pH UR Normal 5.0 LAB L400.3600 Negative mg/dl High PROT 30 DIPSTX LAB L400.3700 Normal mg/dl Normal UROBILI Normal LAB L400.3750 Negative Normal NITRITE UR Negative LAB L400.3780 Negative /ul High OCCULT BLOOD-UR 150 LAB L400.3800 Negative /ul High LEUK 25 ESTERASE LAB L400.4050 0-5 /hpf WBC Normal 5-10 SEEN LAB L400.4100 0-5 /hpf Normal RBC-UA 10-25 SEEN LAB L400.4150 0-5 /hpf SQUAM Normal EPI 0-5 SEEN LAB L400.4300 None Seen /hpf 0 Normal BACTERIA SEEN LAB L400.4350 <or=2+ /hpf 0 Normal MUCUS, URINE SEEN Performed By: #### L400.0001 #### [facility] [address] [place], [place], [address] Observed: 09/18/2017 Status: F Source: [place] CULTURE, URINE 11:53 AM [facility] REPOSITORY Order Date: 09/18/17 Has pt arrived? Y Urine Culture Culture exhibits no growth. Performed By: #### M100.0650 #### [facility] [address] [place], [address] CBC W/DIFF, AUTOMATED Collected: 09/18/2017 Status: F Source: [place] 11:40 AM [facility] REPOSITORY TYPE CODE TESTS RESULT OUT OF RANGE REFERENCE UNITS LAB L100.1000 4.4-11.0 K/mm3 High WBC 11.9 LAB L100.1200 4.6-6.2 M/mm3 Low RBC 3.71 LAB L100.1300 13.0-16.5 g/dl Low HGB 12.1 LAB L100.1400 40-54 % Low HCT 35.5 LAB L100.1500 80-94 fL High MCV 95.7 LAB L100.1600 27.0-32.0 pg High MCH 32.6 LAB L100.1700 32-36 g/gl Normal MCHC 34.1 LAB L100.1810 11.6-14.6 % Normal RDW CV 12.8 LAB L100.1820 35.1-43.9 fl Normal RDW SD 43.7 LAB L100.1900 150-450 K/mm3 Normal PLT 241 LAB L100.2000 6.2-12.0 fl Normal MPV 10.4 LAB L100.2100 47-70 % High NEUT% 81.3 LAB L100.2200 19-41 % Low LY% 10.6 LAB L100.2300 0-10 % Normal MONO% 7.6 LAB L100.2400 0-5 % Normal EO% 0.1 LAB L100.2500 0-1 % Normal BASO% 0.1 LAB L100.2550 0.0-0.9 % Normal IM GRAN % 0.300 Result Comment: IG% - Immature Granulocytes (promyelocytes, myelocytes and metamyelocytes) > 1% indicates that a LEFT SHIFT is Present. LAB L100.2620 2.0-7.7 X10 3/uL High Absolute Neut 9.7 LAB L100.2720 0.83-4.51 X10 3/ul Normal Absolute Lymph 1.27 Performed By: #### L100.0100 #### [facility] [address] [place], [place], [id number] BASIC METABOLIC Collected: 09/18/2017 Status: F Source: [place] [facility] ([facility]) 11:40 AM [facility] REPOSITORY TYPE CODE TESTS RESULT OUT OF RANGE REFERENCE UNITS LAB L501.0100 74-106 mg/dL High GLU 173 Result Comment: Fasting Glucose result greater than or equal to 126 mg/dL suggests DIABETES MELLITUS per A.D.A. criteria. Please note revised GLUCOSE reference range effective 2017. LAB L501.1000 7-18 mg/dL High BUN 46 LAB L501.1100 0.70-1.30 mg/dL High CREAT,SERUM 3.47 Result Comment: The validity of the calculated GFR AND GFRAA in patients over 70 years has not been determined. Clinical correlation is essential. LAB L501.1110 >60 mL/min Low EST GFR 18 Result Comment: Non- GFR Calc LAB L501.1115 >60 mL/min Low EST GFR - AA 22 Result Comment: GFR Calc LAB L501.1255 ml/min Normal Estimated CRCL 16.67 LAB L501.1300 10-20 RATIO Normal BUN/CRE 13.3 LAB L501.2200 8.5-10 mg/dL Normal .1 CA 8.6 LAB L501.5300 136-14 mmol/L Normal 5 NA 142 LAB L501.5600 3.5-5. mmol/L Normal 1 K 5.1 LAB L501.5900 98-107 mmol/L High CL 112 LAB L501.6100 21.0-3 mmol/L Normal 2.0 CO2 21.0 LAB L501.6200 5-15 Normal GAP 9 Performed By: #### L500.2500 #### [facility] [address] [place], [address] ABDOMEN/PELVIS WITHOUT Observed: 09/18/2017 Status: F Source: [place] [facility] 11:19 AM [facility] REPOSITORY [facility] Imaging Services [address] [place] [address] Abdomen/Pelvis without Cont MR#: [id number] Acct: [id number] Name: PRESTON DURBIN Rep #: [id number] : 1940 M 76 From: Javier Unger MD PCP: KYLEIGH CARRASCO Status: REG ER Study: Abdomen/Pelvis without Cont Date of Exam: 09/18/17 Exam# [id number] Ordering Dr: Rome Zambrano MD STUDY: CT ABDOMEN AND PELVIS WITHOUT CONTRAST REASON FOR EXAM: Male, 76 years old. 3 day history of worsening left flank pain. RADIATION DOSAGE (If Supplied By Facility): CTDIvol = ( 12.76 ) mGy, DLP = ( 707.85 ) mGycm TECHNIQUE: Transaxial images were obtained from the dome of the diaphragm to the symphysis pubis without oral contrast, and without intravenous contrast. Sagittal and coronal images were reconstructed. Individualized dose optimization techniques were used for this CT. COMPARISON: None. FINDINGS: Mild degree of increased linear markings at the lung bases suggestive of atelectasis and/or scarring. Prior CABG. Coronary artery calcification. Normal liver. Normal gallbladder and extrahepatic biliary system. Normal spleen. Normal pancreas. Normal bilateral adrenal glands. Moderate degree of right-sided hydronephrosis and hydroureter with the perinephric stranding. Mild to moderate degree of left hydronephrosis and hydroureter with left perinephric stranding. There is a small hiatal hernia. Normal small intestine. There are multiple colonic diverticula consistent with diverticulosis. The appendix is visualized and appears normal. There is diffuse atherosclerotic calcification of the abdominal aorta and its major visceral branches, without a demonstrated aneurysm. Normal inferior vena cava. There is borderline retroperitoneal lymphadenopathy with enlarged nodes no greater than 10mm in the short axis diameter. A Crump catheter is seen within the urinary bladder. There is diffuse wall thickening of the bladder. There is evidence of a 4.4 cm x 2.4 cm mass at the base of the bladder worse on the right side. Calcification is seen along the anterior aspect of the mass. Bladder carcinoma should be ruled out. Normal abdominal wall. There are degenerative changes of the visualized lumbar spine. CT/Abdomen/Pelvis without Cont IMPRESSION: Bilateral hydronephrosis and hydroureter most likely secondary to the mass seen at the base of the bladder worse on the right side. Sigmoid diverticulosis. Atherosclerotic plaque formation of the abdominal aorta and origin of the major visceral branches. Electronically Signed: Javier Unger MD at 14:52 EDT Tel [phone], Service support , CC: Rome Zambrano MD; KYLEIGH CARRASCO Child Support Case Officer: Signed CR - HISTORY AND Observed: 07/10/2017 Status: F Source: [place] [facility] 8:22 AM [facility] REPOSITORY [facility] Cardiac Rehab [address] [place] [address] CR - History AND Physical MR#: [id number] Acct: [id number] Name: PRESTON DURBIN Rep #: [id number] : 1940 76 From: Mohsen Ham PRINT INSPECTOR, MESS [employer]OOK, BS PCP: KYLEIGH CARRASCO DOS: 07/08/17 CR - History AND Physical - General Arrival date:: 07/08/17 Arrival time:: 12:54 Date of Admission: 07/08/17 Referring Physician: [place], [place] Primary Diagnosis: Aortic Valve Replacement - History of Present Cardiac Event Onset Date: Enter Onset Date of cardiac illnesses in Comment field below Valve Replacement/Repair:: Yes - Nov 12, 2016 Pacemaker/ICD: No Type of Symptoms:: shortness of breath with exertion, history of aortic stenosis. Had echo and stress test before skin cancer surgery found 85% reduction of aortic valve. Interventions with present event:: Echo, stress test, subsequent surgery at [facility] Were there any complications?: None known of. - Medications Home Medications: Ambulatory Orders Medication Instructions Recorded ALPRAZolam [Xanax] 0.5 mg PO QHS 10/24/15 Ascorbic Acid [Vitamin C] 1,000 mg PO DAILY 10/24/15 Cyanocobalamin (Vitamin B-12) 5,000 mg PO DAILY 10/24/15 - Allergies Allergies/Adverse Reactions: Allergies aspirin Adverse Reaction (Verified 10/24/15 13:55) Vomiting pt states he vomits blood diazepam [From Valium] Adverse Reaction (Verified 07/08/17 13:13) Other - Sleep Disorder Evaluation Hx of Sleep Apnea: Yes Do you snore loudly (louder than talking or can be heard through closed doors)?: No Do you often feel tired/ fatigued/ sleepy during daytime?: Yes Has anyone observed you stop breathing during sleep?: No History of Hypertension (for STOP score): Yes STOP Results: Positive Advanced Directives - Advanced Directives Power of Assistant Manager Of Operations: Yes - son has P.O.A for health care Living Will: No Advance Directives on File: No DNR Order?:: No Past Medical History - Problems and Co-Morbidities Problems AND Co-Morbidities: Smoking, Dyslipidemia, Diabetes - Type II DM medication controlled., Obesity, Hypertension, Anxiety - Past Medical Illness Past Medical Illness: Arthritis - osteoarthritis, Diabetes, Back Problems - osteoarthritis, degenerative disc disease lower back and neck (chronic pain). Other Medical Illnesses:: Tremors, GERD, skin cancer partial ear removed, fatigue, chronic pain, elevated PSA, balance disturbance walks with cane, chronic sinusitis, hx of kidney stones, tinnitis left ear, ruptured tynamic membrane, - Past Cardiac Illness Past Cardiac Illness: Valve Disorders - aortic valve stenosis (resolved), Arrhythmias - temporary intermittently atrial fibrillation rate controlled and paced following surgery., LV Dysfunction, Ejection Fraction - 60-65%, Coronary Artery Disease - Other Other: Vision/Eye Problems, Cognition Problems - some problems with concentration - Cardiology Procedures/Interventions Cardiology Procedures/Interventions: Heart Catheterization, Echocardiogram, Stress Echocardiogram - Family History Summary Additional Family History: 2 brothers cancer, sister of Heart Disease. Review of Systems - Review of Systems Hints: Right click = Denies (Slash). Left click = Reports (Minerva) Review of Present Symptoms: Reports: Shortness of Breath with Exertion - been told he has start of COPD., Dizziness/Lightheadedness - results of vertigo, balance problems., Fatigue, Appetite - Normal, Sleep - Normal. Denies: Shortness of Breath at Rest, Appetite - Special Diet Risk Factor Assessment - Chief Complaint Chief Complaint: Patient presents to cardiac rehab today on the referral from the [facility] following a recent aortic valve replacement in Oct 2016. - Pulse Pulse Rate: 77 - SpO2 97% room air Pulse Rhythm: Regular - Hypertension How long have you been treated?: several years, really do not know for sure how long Blood Pressure Sitting - Left Arm: 142/70 - Diabetes Diabetic History: Type II, Medication Dependent Nutrition Referral for Diabetes: No - Obesity Height: 5 ft 7 in Weight:: 195 lb Weight in Pounds: 195.0 lbs Body Mass Index (BMI): 30.5 Nutritional Referral for Obesity: No - Physical Inactivity Physical Inactivity: None - Risk Stratification Risk Guidelines: Lowest Risk: Risk Factor for Smoking, Risk Factor for Dyslipidemia, Risk Factor for Diabetes, Risk Factor for Hypertension, Risk Factor for Depression, Highest Risk: Risk Factor for Obesity, Risk Factor for Sedentary Lifestyle - For Smoking Smoking Risk Guidelines: Smoking Low Risk: None or quit greater than 6 months ago. Smoking Moderate Risk: Smoker or quit 6 months or less ago. Smoking High Risk: Smoker - For Dyslipidemia Dyslipidemia Risk Guidelines: Low Risk: Moderate Risk: High Risk: 15-25% fat 25.1-29% fat >/= 30% fat. <7% sat fat 7-9% sat fat >9% sat fat. <150 mg chol 150-299 mg chol >/= 300 mg chol. LDL <100 LDL 100-129 LDL >/= 130. Chol/HDL ratio <5.0 Chol/HDL ratio 5.0-6.0 Chol/HDL ratio >6.0. Triglycerides <100 Triglycerides 100-149 Triglycerides >/= 150 - For Diabetes Mellitus Diabetes Risk Guidelines: Diabetes Low Risk: HgA1c <6.5% and/or FBG <120. Diabetes Moderate Risk: HgA1c 6.6-7.9% and/or FBG 120- 180. Diabetes High Risk: HgA1c >/= 8% and/or FBG >180 - For Obesity/Overweight Obesity/Overweight Risk Guidelines: Obesity Low Risk: BMI <25.0. Obesity Moderate Risk: BMI 25-29.9. Obesity High Risk: BMI >/= 30.0 - For Hypertension Hypertension Risk Guidelines: Hypertension Low Risk: Systolic <120 and Diastolic <80. Hypertension Moderate Risk: Systolic 120-139 and Diastolic 80-89. Hypertension High Risk: Systolic >/= 140 and Diastolic >/= 90 - For Sedentary Lifestyle Sedentary Lifestyle Risk Guidelines: Sedentary Lifestyle Low Risk: >/= 1,500 kcal/week. Sedentary Lifestyle Moderate Risk: 700-1,499 kcal/week. Sedentary Lifestyle High Risk: < 700 kcal/week - For Depression Depression Risk Guidelines: Depression Low Risk: Not clinically depressed. Depression Moderate Risk: Mildly depressed. Depression High Risk: Clinically depressed Social History - Smoking History Smoking Status: Never smoker Hx Tobacco Use: No Hx Smoking Exposure: No - Alcohol Use Alcohol Usage: No - Substance Abuse Hx Substance Use: No - Occupation Occupation (List type of work in comments):: Retired - Hobbies, Recreation, Social Activities Hobbies: Other - gardening, mowing the grass, enjoy being out in the yard. Recreational Activities: I am able to engage in all my recreational activities - if take my time and do them slow, I can function in all daily activities. Marital Status - Status Marital Status: - Current Living Arrangements Living Environment:: Alone - feels safe at home - Children How many children do you have?: 2 - 1 , 1-son left Do any of your children live nearby?: Yes - outside of [place] - Safety Do you feel safe in your surroundings?: Yes - Assistance Do you need any assistance at home?: none 07/08/17 1326 <Electronically signed by Mohsen Ham CRT, GAEL, JOANIE> Date Mohsen Ham CRT, RCP, JOANIE Outcome assessment reviewed. Exercise plan approved as documented. Treatment plan and goals support patient needs/abilities. Continue with current plan. I certify the patient demonstrates improvement and remains willing and capable of participation. the patient continues to benefit from cardiac rehab services/training. The patient may continue at current intensity, endurance and modality and progress per protocol. 07/10/17821 <Electronically signed by Lucas Glasgow MD> Cosigner Signature: Date Lucas Glasgow MD CC: Signed ALLERGIES ALLERGIES DATE TYPE / CODE NAME / CODE REACTION SEVERITY SOURCE 03/14/2018 Drug aspirin/F006 Vomiting Unknown [facility] All[facility]/4160 014912([place] 0769302(SNOMED M) Repository CT) 03/14/2018 Drug clonazepam/F Unknown Unknown [place] [facility] Allergy/4160 [id number]([place] [address](SNOMED NORM) Repository CT) 03/14/2018 Drug albuterol/F0 Unknown Unknown [facility] Allergy/4160 [id number]([place] [address](SNOMED ORM) Repository CT) 03/14/2018 Drug ibuprofen/F0 Unknown Unknown [facility] Allergy/4160 90081196([place] [address](SNOMED ORM) Repository CT) 03/14/2018 Drug ipratropium/ Unknown Unknown [facility] Allergy/4160 [id number]([facility] [address](SNOMED XNORM) Repository CT) 07/08/2017 Drug diazepam/F00 Other Unknown [facility] Allergy/4160 3579058([facility] [address](SNOMED RM) Repository CT) ENCOUNTERS ENCOUNTERS ADMIT/DISCHARGE ACCOUNT ADMITTING ENCOUNTER LOCATION SOURCE NUMBER CLASS 04/11/2018 [id number] [facility] Repository 04/11/2018 [id number] KYLEIGH CARRASCO Ambulatory [facility] Repository 04/11/2018 [id number] [facility] Repository 04/11/2018 [id number] [facility] Repository 03/19/2018/ [id number] Ambulatory [facility] 8 0 [facility] ing:SDC Repository 03/03/2018/ [id number] Emergency [facility] [place] 8 8 [facility] ing:ED Repository 12/24/2017 [id number] Ambulatory [facility] 6 [facility] ing:LAB Repository 11/09/2017 [id number] Ambulatory [place] [facility] 9 [facility] ing:CR Repository 10/30/2017/ [id number] Ambulatory [place] [facility] 8 7 [facility] ing:SDC Repository 10/28/2017 [id number] Ambulatory [place] [facility] 5 [facility] ing:NM Repository 10/16/2017/ [id number] Ambulatory [place] [facility] 8 3 [facility] ing:CR Repository 10/11/2017/ [id number] Dangelo Alvarado [place]patient [place] 8 1 Steffen [facility] ing:UG6Octq: Repository SL330Gei: 1 09/30/2017 [id number] Ambulatory [place] [facility] 3 [facility] ing:LAB Repository 09/30/2017 [id number] Ambulatory BMSBuilding:W [place] 1 [facility] Repository 09/25/2017/ [id number] Ambulatory BMSBuilding:B [place] 8 9 [facility] Repository 09/24/2017 [id number] Ambulatory BMSBuilding:B [place] 1 [facility] Repository 09/18/2017/ [id number] Imamura, Inpatient [facility] 8 2 Yoichi Encounter [facility] ing:WO9Silg: Repository NU239Blr: 1 09/18/2017 [id number] Imamura, Ambulatory BMSBuilding:B [place] 6 [place] [facility] Repository 09/18/2017 [id number] Imamura, Ambulatory BMSBuilding:B [place] 9 [place] [facility] Repository 09/18/2017 [id number] Imamura, Ambulatory BMSBuilding:B [place] 1 [place] Repository 09/18/2017/ [id number] Ambulatory BMSBuilding:W [place] 8 8 [facility] Repository 09/16/2017/ [id number] Ambulatory [place] [facility] 8 3 [facility] ing:CR Repository 08/28/2017/ [id number] [place]ulatory [place] 8 4 [facility] ing:CR Repository 07/26/2017/ [id number] Ambulatory [facility] 8 0 [facility] ing:CR Repository 07/26/2017 [id number] Ambulatory BMSBuilding:W [facility] 5 [facility] Repository 07/08/2017 [id number] [place]ulatory [place] 7 [facility] ing:CR Repository PAYERS PAYERS ENCOUNTER GUARANTOR PAYER SUBSCRIBER SOURCE 04/11/2018 PRESTON Devine Primary Insurance:[facility] PRESTON Lovett DAWSONDOB: - DAWSONDOB: [facility] [id number] [facility] [id number] Hospital CEMETERY Number: 58 CEMETERY [facility]ository [facility] [id number] [facility] [place] [address]Lzz: (330) Date:4258-21-39Tyhu 86051 [phone] () Name: 04/11/2018 PRESTON A Primary Insurance:S PRESTON Ordonezne DAWSONDOB: - DAWSONDOB: [facility] MEDICARE-PRIMARYPolicy [id number] Hospital CEMETERY Number: 58 CEMETERY Repository [place] [id number] [place], [place] [address]Unw: (330) Date:2208-53-44Szku 44676 [phone] () Name: 04/11/2018 PRESTON A Primary Insurance:500 PRESTON A Hang Ordonezne DAWSONDOB: MEDICARE DAWSONDOB: [facility] [id number] Hospital CEMETERY Number: 58 CEMETERY Repository [place] [id number] [place], [place] [address]Kkk: (330) Date:Plan Name: [id number] [phone] () 04/11/2018 Secondary PRESTON A Ahng [place]ome[place] Insurance:[facility] DAWSONDOB: [address] [id number] [facility] OUTPATIENTPolicy 58 CEMETERY Repository Number: [place]DS[place] [id number] Date: 04/11/2018 PRESTON A Primary Insurance:500 PRESTON Ordonezne DAWSONDOB: MEDICARE DAWSONDOB: [facility] [id number] Hospital CEMETERY Number: 58 CEMETERY Repository [place] [id number] [place], [place] [address]Ltq: (330) Date:Plan Name: [id number] [phone] () 04/11/2018 Secondary PRESTON A Hang Pome[place] Insurance:[facility] DAWSONDOB: [address] [id number] [facility] OUTPATIENTPolicy 58 CEMETERY Repository Number: RDSHRDAFNE [place] [id number] Date: 03/19/2018 PRESTON A Primary PRESTON A [place] Insurance:MEDICARE DAWSONDOB: Community CEMETERY PART A BPolicy Number: [id number] [place], [place] [id number] Repository [address]Vmd: (330) Date:2018-03-04 [phone] () 03/19/2018 Secondary PRESTON A [place] Insurance:ANTHEMPolicy DAWSONDOB: Community Number: [id number] Medical [id number] Repository Date:4055-87-90[address]TBHXFK[place], [place] [address]LH: 03/19/2018 Tertiary NOT GIVENUNK [place] Insurance:SELF PAY [facility] Number: Effective Repository Date:2018-03-04 03/03/2018 PRESTON A Primary PRESTON A [place] [id number] Insurance:MEDICARE DAWSONDOB: Community CEMETERY PART A BPolicy Number: [id number] [place], [place] [id number] Repository [address]Rwm: (330) Date:[phone] () 03/03/2018 Secondary PRESTON A [place] Insurance:ANTHEMPolicy DAWSONDOB: Community Number: [id number] Medical [id number] Repository Date:4637-66-31[address] [address]GE: 03/03/2018 Tertiary NOT GIVENUNK [place] Insurance:SELF PAY [facility] Number: Effective Repository Date:2018-03-03 12/24/2017 PRESTON A Primary PRESTON A [place] [id number] Insurance:MEDICARE DAWSONDOB: Community CEMETERY PART A BPolicy Number: [id number] Paul, [place] [id number] Repository [address]Dxh: (330) Date:2017-12-24 [phone] () 12/24/2017 Secondary PRESTON A [place] Insurance:ANTHEMPolicy DAWSONDOB: Community Number: [id number] Hospital [id number] Repository Date:8441-40-05[address] [address]CI: 12/24/2017 Tertiary NOT GIVENUNK [place] Insurance:SELF PAY [facility] Number: Effective Repository Date:2017-12-24 11/09/2017 PRESTON A Primary PRESTON A [place] [id number] Insurance:MEDICARE DAWSONDOB: Community CEMETERY PART A BPolicy Number: [id number] [place], [place] [id number] Repository [address]Jwz: (712) Date:2017-07-08 [phone] () 11/09/2017 Secondary PRESTON A [place] Insurance:ANTHEMPolicy DAWSONDOB: Community Number: [id number] Hospital [id number] Repository Date:3546-92-[address] [place] [address]UT: 11/09/2017 Tertiary Insurance:[place] PRESTON A [place] [facility] DAWSONDOB: Community Number: [id number] Hospital [id number] Repository Date:6434-25-51GPG SERVICE [id number] [place], [place] [address]UA: [phone] X2003 11/09/2017 Tertiary NOT GIVENUNK [place] Insurance:SELF PAY [facility] Number: Effective Repository Date:2017-10-30 10/30/2017 PRESTON A Primary PRESTON A [place] [id number] Insurance:MEDICARE DAWSONDOB: Community CEMETERY PART A BPolicy Number: [id number] Paul, [place] [id number] Repository [address]Weo: (439) Date:2017-10-29 [phone] () 10/30/2017 Secondary PRESTON A [place] Insurance:ANTHEMPolicy DAWSONDOB: Community Number: [id number] Hospital [id number] Repository Date:3012-02-92[address] [place] [address]QH: 10/30/2017 Tertiary NOT GIVENUNK [place] Insurance:SELF PAY [facility] Number: Effective Repository Date:2017-10-29 10/28/2017 PRESTON A Primary PRESTON A [place] [id number] Insurance:MEDICARE DAWSONDOB: Community CEMETERY PART A BPolicy Number: [id number] Paul, [place] [id number] Repository [address]Nag: (330) Date:2017-10-24 [phone] () 10/28/2017 Secondary PRESTON A [place] Insurance:ANTHEMPolicy DAWSONDOB: Community Number: [id number] Hospital [id number] Repository Date:0887-87-95TY[address] [address]KE: 10/28/2017 Tertiary [place] PRESTON A [place] [facility] DAWSONDOB: Community Number: [id number] Hospital [id number] Repository Date:5126-52-79TDN SERVICE [id number] [place], [place] [address]OU: [phone] x2003 10/28/2017 [facility] [place] Insurance:SELF PAY [facility] Number: Effective Repository Date:2017-10-24 10/16/2017 PRESTON A Primary PRESTON A [place] [id number] Insurance:MEDICARE DAWSONDOB: Community CEMETERY PART A BPmount [facility]inai hospitaly Number: [id number] [place], [place] [id number] Repository [address]: (330) Date:2017-07-08 [phone] () 10/16/2017 Secondary PRESTON A [place] Insurance:ANTHEMPolicy DAWSONDOB: Community Number: [id number] Hospital [id number] Repository Date:9106-89-23VU[address] [address]GH: 10/16/2017 Tertiary Insurance:[place] PRESTON Tal[place] [facility] DAWSONDOB: Community Number: [id number] Hospital [id number] Repository Date:6580-19-93EOX SERVICE [id number] [place], [place] [address]LR: [phone] x2003 10/16/2017 Tertiary NOT GIVENUNK [place] Insurance:SELF PAY [facility] Number: Effective Repository Date:2017-09-29 10/11/2017 PRESTON A Primary PRESTON A [place] [id number] Insurance:MEDICARE DAWSONDOB: Community CEMETERY PART A BPolicy Number: [id number] Paul, [place] [id number] Repository [address]Bbg: (330) Date:2017-09-30 [phone] () 10/11/2017 Secondary PRESTON A [place] Insurance:ANTHEMPolicy DAWSONDOB: Community Number: [id number] Hospital [id number] Repository Date:5319-86-70KS[address] [address]FB: 10/11/2017 Tertiary Insurance:[place] PRESTON A [place] [facility]ICAL [facility] DAWSONDOB: Community Number: [id number] Hospital [id number] Repository Date:7340-95-17IYY SERVICE [id number] [place], [place] [address]JD: [phone] X2003 10/11/2017 Tertiary NOT GIVENUNK [place] Insurance:SELF PAY [facility] Number: Effective Repository Date:2017-09-30 09/30/2017 PRESTON A Primary Insurance:[place] PRESTON A [place] [id number] [facility] Number: [id number] [place], [place] [id number] Repository [address]Jsv: (330) Date:8338-06-06IVU [phone] () SERVICE [id number] [place], [place] [address]XY: [phone] X2003 09/30/2017 Secondary PRESTON A [place] Insurance:MEDICARE DAWSONDOB: Community PART A olicy Number: [id number] Hospital [id number] Repository Date:2017-09-30 09/30/2017 Tertiary PRESTON A [place] Insurance:ANTHEMPolicy DAWSONDOB: Community Number: [id number] Hospital [id number] Repository Date:4440-82-81[address]ITZZY[place], [place] [address]XS: 09/30/2017 Tertiary NOT GIVENUNK [place] Insurance:SELF PAY [facility] Number: Effective Repository Date:2017-09-30 09/30/2017 PRESTON A Primary [place] PRESTON A [place] [id number] [facility]WSONDOB: [facility] Number: [id number] Paul, [place] [id number] Repository [address]Gui: (043) Date:4501-96-12DCZ [phone] () [place] [id number] [place], [place] [address]LH: [phone] X2003 09/30/2017 Secondary PRESTON A [place] Insurance:MEDICARE DAWSONDOB: Community PART A BPolicy Number: [id number] Hospital [id number] Repository Date:2017-09-30 09/30/2017 Tertiary PRESTON A [place] Insurance:ANTHEMPolicy DAWSONDOB: Community Number: [id number] Hospital [id number] Repository Date:6003-67-71Z[address]VFT, [place] [address]EH: 09/30/2017 Tertiary NOT GIVENUNK [place] Insurance:SELF PAY [facility] Number: Effective Repository Date:2017-09-30 09/25/2017 PRESTON A Primary PRESTON A [place] [id number] Insurance:MEDICARE DAWSONDOB: Community CEMETERY PART A BPolicy Number: [id number] [place], [place] [id number] Repository [address]Ovk: (446) Date:2017-09-20 [phone] () 09/25/2017 Secondary PRESTON A [place] Insurance:ANTHEMPolicy DAWSONDOB: Community Number: [id number] Hospital [id number] Repository Date:8609-05-93JF [address]LKYMXOF, [place] [address]FK: 09/25/2017 Tertiary NOT GIVENUNK [place] Insurance:SELF PAY [facility] Number: Effective Repository Date:2017-09-25 09/24/2017 Preston A Primary Insurance:[place] Preston A Gali [id number] [facility] DawsonDOB: [facility] Number: [id number] [id number] Repository [address]Kgl: 330) Date:8600-96-26CMS [phone] () [place] [id number] [place], [place] [address]XK: [phone] X2003 09/24/2017 Secondary Preston A [place] Insurance:MEDICARE DawsonDOB: Community PART A BPolicy Number: [id number] Hospital [id number] Repository Date:2017-09-24 09/24/2017 Tertiary Preston A Gali Insurance:ANTHEMPolicy DawsonDOB: Community Number: [id number] Medical [id number] Repository Date:2519-43-03EM [address] [address] 71697YM: 09/24/2017 Tertiary NOT GIVENUNK [place] Insurance:SELF PAY [facility] Number: Effective Repository Date:2017-09-24 09/18/2017 PRESTON A Primary PRESTON A Gali [id number] Insurance:MEDICARE DAWSONDOB: Community CEMETERY PART A BPolicy Number: [id number] Paul, [place] [id number] Repository [address]Rwv: (276) Date:2017-09-18 [phone] () 09/18/2017 Secondary PRESTON A [place] Insurance:ANTHEMPolicy DAWSONDOB: Community Number: [id number] [facility] [id number] Repository Date:1711-34-00E[id number] [place] [address] 37580UW: 09/18/2017 Tertiary NOT GIVENUNK [place] Insurance:SELF PAY [facility] Number: Effective Repository Date:2017-09-18 09/18/2017 PRESTON A Primary PRESTON A [place] [id number] Insurance:MEDICARE DAWSONDOB: Community CEMETERY PART A BPolicy Number: [id number] [place], [place] [id number] Repository [address]Yaz: (330) Date:2017-09-18 [phone] () 09/18/2017 Secondary PRESTON A [place] Insurance:ANTHEMPolicy DAWSONDOB: Community Number: [id number] Medical [id number] Repository Date:5495-21-26HT [address] [place] [address] 96773AK: 09/18/2017 Tertiary NOT GIVENUNK Gali Insurance:SELF PAY [facility] Number: Effective Repository Date:2017-09-18 09/18/2017 PRESTON A Primary PRESTON A [place] [id number] Insurance:MEDICARE DAWSONDOB: Community CEMETERY PART A BPolicy Number: [id number] [place], [place] [id number] Repository [address]Yio: 330) Date:2017-09-18 [phone] () 09/18/2017 Secondary PRESTON A Gali Insurance:ANTHEMPolicy DAWSONDOB: Community Number: [id number] Medical [id number] Repository Date:4110-78-96RM [address] [place] [address] 16200CD: 09/18/2017 Tertiary NOT GIVENUNK [place] Insurance:SELF PAY [facility] Number: Effective Repository Date:2017-09-18 09/18/2017 PRESTON A Primary PRESTON A Gali [id number] Insurance:MEDICARE DAWSONDOB: Community CEMETERY PART A BPolicy Number: [id number] Paul, [place] [id number] Repository 67[address]Aow: (330) Date:2017-09-18 [phone] () 09/18/2017 Secondary PRESTON A [place] Insurance:ANTHEMPolicy DAWSONDOB: Community Number: [id number] Medical [id number] Repository Date:4284-39-95YR [address] [place] [address] 52971KO: 09/18/2017 Tertiary NOT GIVENUNK [place] Insurance:SELF PAY [facility] Number: Effective Repository Date:2017-09-18 09/18/2017 PRESTON A Primary PRESTON A Gali [id number] Insurance:MEDICARE DAWSONDOB: Community CEMETERY PART A BPolicy Number: [id number] Paul, [place] [id number] Repository 98837Ogz: (330) Date:2017-09-18 [phone] () 09/18/2017 Secondary PRESTON A [place] Insurance:ANTHEMPolicy DAWSONDOB: Community Number: [id number] Medical [id number] Repository Date:2636-92-11AQ [address] [place] [address] 84824QZ: 09/18/2017 Tertiary NOT GIVENUNK Gali Insurance:SELF PAY [facility] Number: Effective Repository Date:2017-09-18 09/16/2017 Preston A Primary Insurance[place] [id number] [facility] Number: [id number], [place] [id number] Repository 98[address]Kfg: (330) Date:1207-52-59BOT [phone] () [place] [id number] [place], [place] [address]TS: [phone] X2003 09/16/2017 Secondary Preston A Gali Insurance:MEDICARE DawsonDOB: Community [facility] Number: [id number] Hospital [id number] Repository Date:2017-07-08 09/16/2017 Tertiary Preston A Gal[place] Insurance:ANTHEMPolicy DawsonDOB: Community Number: [id number] Medical [id number] Repository Date:0307-94-13[address]IOOHFDW, [place] [address]GQ: 09/16/2017 Tertiary NOT GIVENUNK Gali Insurance:SELF PAY [facility] Number: Effective Repository Date:2017-08-30 08/28/2017 Preston A Primary Insurance:[place] Preston A Gali [id number] [facility]: [facility] Number: [id number], [place] [id number] Repository 67[address]Zox: (330) Date:7500-83-04PTH [phone] () SERVICE [id number] [place], [place] [address]AD: [phone] X2003 08/28/2017 Secondary Preston A Gali Insurance:MEDICARE DawsonDOB: Community PART A [facility] Number: [id number] Hospital [id number] Repository Date:2017-07-08 08/28/2017 Tertiary Preston A [place] Insurance:ANTHEMPolicy DawsonDOB: Community Number: [id number] Hospital [id number] Repository Date:1092-24-38VD [address] [place] [address] [place] [address]DR: 08/28/2017 [facility] Insurance:SELF PAY [facility] Number: Effective Repository Date:2017-07-30 07/26/2017 Preston A Primary Insurance:[place] [id number] [facility] Number: [id number], [place] [id number] Repository [address]Ccu: (330) Date:7807-17-12ZWT [phone] () SERVICE [id number] [place], [place] [address]JZ: [phone] X2003 07/26/2017 Secondary Preston A Gal[place] Insurance:MEDICARE DawsonDOB: Community PART A [facility] [address] Number: [id number] Hospital [id number] Repository Date:2017-07-08 07/26/2017 Tertiary Preston A Gal[place] Insurance:ANTHEMPolicy DawsonDOB: Community Number: [id number] Hospital [id number] Repository Date:9987-79-10[id number] [place] [address] 19223NB: 07/26/2017 Tertiary NOT GIVENUNK Gal[place] Insurance:SELF PAY [facility] Number: Effective Repository Date:2017-07-08 07/26/2017 Preston A Primary Insurance:[place] [id number] [facility]DOB[facility] Number: [id number], [place] [id number] Repository [address]Rhw: 330) Date:1837-84-23GVQ [phone] () SERVICE [id number] [place], [place] [address]AC: [phone] X2003 07/26/2017 Secondary Preston A Gal[place] Insurance:MEDICARE DawsonDOB: Community PART A BPolicy Number: [id number] Hospital [id number] Repository Date:2017-07-08 07/26/2017 Tertiary Preston A Gal[place] Insurance:ANTHEMPolicy DawsonDOB: Community Number: [id number] Hospital [id number] Repository Date:9092-47-89[id number] [place] [address] 548[address]KO: 07/26/2017 Tertiary NOT GIVENUNK [place] Insurance:SELF PAY [facility] Number: Effective Repository Date:2017-07-26 07/08/2017 Preston A Primary Insurance:[place] Preston Talbert [id number] [facility] CentersonD[facility]: [facility] Number: [id number], [place] [id number] Repository [address]Bnh: 330) Date:9117-82-95EHB [phone] () SERVICE [id number] [place], [place] [address]OW: [phone] X2003 07/08/2017 Secondary Preston A Gal[place] Insurance:MEDICARE DawsonDOB: Community PART A olicy Number: [id number] Hospital [id number] Repository Date:2017-06-26 07/08/2017 Tertiary Preston A [place] Insurance:ANTHEMPolicy DawsonDOB: Community Number: [id number] Hospital [id number] Repository Date:7730-67-16[address]PTO[place], [place] [address]KG: 07/08/2017 Tertiary NOT GIVENUNK [place] Insurance:SELF PAY [facility] Number: Effective Repository Date:2017-06-26
== END 2018-03-19 15:58 | disposition home or self-care (01) ==
LOC: SDC 11:40 → AC 11:41
PROVIDERS: Anesthesiology; Family Provider Internal Medicine; PCP Internal Medicine; Referring Provider Urology; Visit Provider Urology
PROC: 0V908ZZ Drainage of Prostate, Via Natural or Artificial Opening Endoscopic (ICD-10-PCS; CPT 52450; principal; 2018-03-19 13:15)
DX: C61 Malignant neoplasm of prostate (principal); C67.9 Malignant neoplasm of bladder, unspecified; Z85.46 Personal history of malignant neoplasm of prostate; E78.00 Pure hypercholesterolemia, unspecified; K21.9 Gastro-esophageal reflux disease without esophagitis; I10 Essential (primary) hypertension; Z95.2 Presence of prosthetic heart valve; I25.10 Atherosclerotic heart disease of native coronary artery without angina pectoris; Z87.39 Personal history of other diseases of the musculoskeletal system and connective tissue; E11.9 Type 2 diabetes mellitus without complications; N40.1 Benign prostatic hyperplasia with lower urinary tract symptoms; R97.20 Elevated prostate specific antigen [PSA]; C79.51 Secondary malignant neoplasm of bone; Q64.31 Congenital bladder neck obstruction; Z79.82 Long term (current) use of aspirin; R23.3 Spontaneous ecchymoses
CPT/HCPCS: 52500; 36415; 80076; 82962; 83036; 85025; 85610; 85730; 88305; J7120; J2405

== ENCOUNTER 2018-06-02 01:04 | Inpatient (IN) | payer MEDICARE, BC, SELFPAY ==
[2018-06-02] VITALS (45 sets, daily range): BP systolic 83–152; BP diastolic 31–66; PULSE 96–175; RESP 12–48; TEMP 36.6–38.9; O2SAT 91–100; BMI 28.2; BMI 27.0; BMI 27.1
[2018-06-02] MEDS: 0.9% Normal Saline 1,000 ML IV.SOLN. 1000 ML IV (01:22)
--- NOTE | 2018-06-02 01:23 | EKG12_ITS ---
Test Reason : Blood Pressure : / mmHG Vent. Rate : 112 BPM Atrial Rate : 115 BPM P-R Int : 138 ms QRS Dur : 074 ms QT Int : 300 ms P-R-T Axes : 000 -02 016 degrees QTc Int : 409 ms Sinus tachycardia with Premature atrial complexes Nonspecific ST and T wave abnormality Abnormal ECG Confirmed by SUZIE BARRERA, ALON ([id number]), deputy editor in chief LOLA RODGERS ([id number]) on 06/02/2018 2:41:48 PM Referred By: Sally Cm Confirmed By:ALON LARSEN MD
--- NOTE | 2018-06-02 01:25 | CT_ITS ---
HISTORY: FOUND UNRESPONSIVE BY FAMILY @ 11PM.PT FELL YESTERDAY @ 11AMHX:HTN,A-FIB,DIABETES,SKIN CANCER EXAM/TECHNIQUE: CT Head or Brain W/O Contrast: Multiplanar reformats provided. COMPARISON: None. FINDINGS: # of images incl. paperwork: 253 No evidence of intracranial hemorrhage, hydrocephalus mass, or acute infarct. No acute osseous abnormality. Scattered chronic appearing hypodensities in the cerebral white matter. Calcific atherosclerosis of the intracranial arteries. CT/Brain/Head without Contrast IMPRESSION: No acute findings. Individualized dose optimization techniques were used for this CT. at 0159 Reported and signed by: Geoff Joaquin MD Electronically Signed: Geoff Joaquin, at 1:58 EST Tel , Service support ,
--- NOTE | 2018-06-02 01:25 | CT_ITS ---
HISTORY: FOUND UNRESPONSIVE BY FAMILY @11PM,PT FELL YESTERDAY @ 11AMHX:A-FIB,DIABETES,HTN,SKIN CANCER EXAM/TECHNIQUE: CT Spine Cervical W/O Contrast: Axial images obtained, multiplanar reformats provided. COMPARISON: None. FINDINGS: # of images incl. paperwork: 443 No fracture or dislocation of the cervical spine. Alignment anatomic. Multilevel degenerative changes but no evidence of high-grade spinal canal narrowing. No acute findings in the paraspinal soft tissues. Mild motion artifact affects portions of the study. Moderate to severe late subacute versus chronic compression fracture of the T2 vertebral body. Calcific atherosclerosis. CT/Spine Cervical without Contras IMPRESSION: No fracture or dislocation of the cervical spine. Individualized dose optimization techniques were used for this CT. at 0206 Reported and signed by: Geoff Joaquin MD Electronically Signed: Geoff Joaquin, at 2:05 EST Tel , Service support ,
--- NOTE | 2018-06-02 01:35 | RAD_ITS ---
HISTORY: patient found unresponsive by family EXAM/TECHNIQUE: XR Chest 1 View: COMPARISON: 10/24/15 chest radiograph. FINDINGS: # of images incl. paperwork: 1 Lower lung volumes compared to previous with elevation of the hemidiaphragms and bibasilar atelectasis. No definite pneumonia, edema, pleural effusion, or pneumothorax. Interval sternotomy. Probable prosthetic heart valve. Atherosclerosis thoracic aorta. Heart size not significantly changed. No acute osseous abnormality. RAD/Chest 1 View (Portable) IMPRESSION: Low lung volumes with resultant hypoventilatory changes. No definite pneumonia or edema. Interval sternotomy probably for heart valve replacement. at 0154 Reported and signed by: Geoff Joaquin MD Electronically Signed: Geoff Joaquin, at 1:53 EST Tel , Service support ,
[2018-06-02 01:46] LABS: Lactic Acid 1.7 mmol/L (0.4-2.0)
[2018-06-02 01:46] LABS: Allen Test POS; Base Excess 0 mmol/L (-2 to +2); Bicarbonate 24.1 mmol/L (22-26); Blood Gas Specimen Type ART; O2 Delivery Device Nasal Can; PO2 70 mmHG (75-100); SITE R Radial; SO2 95 % (95-99); Total Carbon Dioxide 25 mmol/L; pCO2 34.6 mmHg (35-45); pH 7.45 (7.35-7.45)
[2018-06-02 01:48] LABS: ALB/GLOB Ratio 0.6 RATIO (0.9-2.4); AST(SGOT) 197 U/L (15-37); Alanine Aminotransfer ALT/SGPT 32 U/L (16-61); Albumin, Serum 2.3 g/dL (3.2-5.0); Alkaline Phosphatase 187 U/L (45-117); Anion Gap 9 (5-15); BUN 68 mg/dL (7-18); BUN/Creat Ratio 34.5 RATIO (10-20); Chloride 104 mmol/L (98-107); Creatinine, Serum 1.97 mg/dL (0.70-1.30); EST Glomerular Filtration Rate 35 mL/min (>60); Est Glom Filt Rate - Afr Amer 42 mL/min (>60); Estimated Creatinine Clearance 27.89 ml/min; Globulin 3.9 g/dL (2.2-4.2); Glucose 266 mg/dL (74-106); Potassium 4.2 mmol/L (3.5-5.1); Protein, Total 6.2 g/dL (6.4-8.2); Sodium Level 138 mmol/L (136-145)
[2018-06-02 01:49] LABS: Absolute Lymphocyte Count 1.59 X10^3/ul (0.83-4.51); Absolute Neutrophil Count 6.4 X10^3/uL (2.0-7.7); Basophil# 0.02 X10^3/uL; Basophil% 0.2 % (0-1); Hematocrit 28.3 % (40-54); Hemoglobin 9.2 g/dl (13.0-16.5); International Normalized Ratio 2.4; Lymphocyte # 1.59 X10^3/ul (4.0); Lymphocyte % 17.4 % (19-41); Mean Corp Hgb Conc 32.5 g/gl (32-36); Mean Corpuscular Hgb 30.4 pg (27.0-32.0); Mean Corpuscular Volume 93.4 fL (80-94); Mean Platelet Vol. 10.4 fl (6.2-12.0); Monocyte# 0.96 X10^3/uL; Monocyte% 10.5 % (0-10); Neutrophil # 6.42 X10^3/uL (2.7-7.7); Neutrophil % 70.5 % (47-70); Platelet Count 111 K/mm3 (150-450); RBC Distribution Width CV 14.8 % (11.6-14.6); RBC Distribution Width SD 50.3 fl (35.1-43.9); Red Blood Count 3.03 M/mm3 (4.6-6.2); White Blood Count 9.1 K/mm3 (4.4-11.0)
[2018-06-02 01:50] LABS: Absolute Nucleated RBC Count 0.18 10^3/uL (0-5); NRBC Flagged by Analyzer 1.9 % (0-5); POSITIVE COUNT NO; POSITIVE DIFFERENTIAL NO; POSITIVE MORPHOLOGY NO; Partial Thromboplast Time 39.2 Seconds (24.1-36.2)
[2018-06-02 02:05] LABS: Mucous, Urine 0 SEEN /hpf (<or=2+)
[2018-06-02] MEDS: fentaNYL 100 MCG/2 ML Ampul 50 MCG IV (02:17)
[2018-06-02 02:22] LABS: Color, Urine Yellow (Yellow); Glucose, Dipstick Normal (Normal); Ketone-Dipstick 5 mg/dl (Negative); Leukocyte Esterase-Dipstick 500 /ul (Negative); Nitrite-Dipstick Negative (Negative); Occult Blood-Urine 50 /ul (Negative); Protein-Dipstick 30 mg/dl (Negative); Urine Bilirubin Dipstick Negative (Negative); Urine Clarity Sl. Cloudy (Clear); Urine Urobilinogen Normal (Normal)
[2018-06-02 02:29] LABS: Bacteria 2+ /hpf (None Seen); Red Blood Cells-Urine 0-5 SEEN /hpf (0-5); Squamous Epithelial Cells - UA 0-5 SEEN /hpf (0-5); White Blood Cells 10-25 SEEN /hpf (0-5)
[2018-06-02 02:33] LABS: CPK Total, Creatine Kinase 529 U/L (39-308)
--- NOTE | 2018-06-02 03:06 | ED.DCSUM_ITS ---
- ER Visit Summary Date of Service: 06/02/18 Chief Complaint: Altered mental status History of Present Illness: The patient is a 77 M with an altered mental status. History was obtained from EMS and family. Apparently the patient fell this morning at some point and was found down by his family. They helped him up but he refused to come to the ED. He was not answering the phone throughout the day, and they found him to be less responsive than normal so they brought him to the ED by EMS. Patient complains of some chronic low back pain and family also report that he has had some nasal congestion, but otherwise no recent issues. He has a history of metastatic prostate cancer but is not a candidate for therapy. He has full code. Also a history of diabetes, hypertension, hyperlipidemia, paroxysmal atrial fibrillation, acid reflux, et al. He has a bioprosthetic aortic valve replacement. He takes Eliquis among his other medications. Physical Examination: Afebrile. Heart rate 116 and respiratory rate in the 30s. 94% on nasal cannula. Patient is somnolent but arouses when I walk in the room. He is oriented to person only. GCS 13. Head and neck atraumatic. HEENT exam shows dry mucous membranes. Neck is nontender with good range of motion. Heart tachycardic but regular. Lungs diminished in all j[place]. Abdomen soft and nontender. Extremities show symmetric strength and sensation. No facial droop. Skin is pale. Test Results: EKG showed sinus rhythm at a rate of [address] and T wave changes. Chest x-ray showed chronic changes and low lung volumes. CT brain and cervical spine showed chronic and degenerative changes. Nothing acute. Hemoglobin 9.2 and platelets 111. Glucose 266, BUN 68, creatinine 1.97. Alkaline phosphatase 187 AST 197, INR 2.4 and PTT is 39.2. Urine shows leukocyte esterase and elevated white cells. Culture pending. Troponin indeterminate 0.074. CPK 529 and lactate 1.7. ABG showed a pH of 7.45, O2 70, CO2 34.6. Influenza test negative. Blood cultures pending. Emergency Department Course and Treatment: Patient was seen immediately on arrival. He was placed on a monitor. EKG showed no acute ischemia or infarction. 2 peripheral IVs were placed and fluid resuscitation was started. Respiratory started the patient on a nasal cannula, 2 L, and his pulse ox was in the mid 90s. He had a GCS of 13 and was protecting his airway. We continue to monitor him. Sepsis and cardiac workup was started. He does have findings consistent with a UTI and sepsis. He is not in shock. Patient was tachycardic after 1 L of normal saline, and a second liter was ordered. He was started on Rocephin. Cultures are pending. I cannot find any evidence of trauma after his fall. His CPK was 529. Hospitalist was contacted for further inpatient care. We will continue fluid resuscitation. We will continue monitoring. Family is at bedside and all questions were answered. The patient is more alert on reevaluation, and the family says this is the best he has looked all day. Patient will be admitted to PCU. Treatment Plan: As above Disposition: Mid to PCU Impression: 1. UTI 2. Sepsis 3. Fall 4. Indeterminate troponin This note was generated with [employer] dictation software. It may contain incorrect words, spelling, and punctuation that were not noted in review of the chart prior to signing ED Disposition - Plan for ED Patient: Referrals: Amber Hyatt [Primary Care Provider] -
--- NOTE | 2018-06-02 03:12 | PCM.HP.STD ---
Problem List (1) Prostate cancer metastatic to bone Status: Chronic (2) Stage III chronic kidney disease Status: Chronic (3) History of aortic valve replacement with bioprosthetic valve Status: Chronic Comment: Yumi GONZALEZ Tissue Heart Valve Serial # [id number] Model TFGT- 25A @ [facility] (4) BPH with urinary obstruction Status: Chronic (5) Hypertension Status: Chronic Qualifiers: History of Present Illness Date of Admission: 06/02/18 Chief Complaint: Change in mental status. The patient is a 77 year old M with past medical history as mentioned above presented to the emergency room because of altered mental status. At this time, the patient is sleepy and lethargic but easily arousable, oriented x3. He knows his full name, date of , he knew his son and he no where he is at. He complained of mild low back pain and shortness of breath. He was not able to provide detailed history. Patient's son who is the power of attorney general was at the bedside. According to the son, patient had a fall yesterday, could not get up and his son called him multiple times but he did not answer. The son came to his father's house, found him on the floor and was not able to ambulate. He helped him and he mentioned that he was okay and did fine after that. Today, he called him again multiple times and he did not answer. The son again came to his father's house and he found his father laying on his couch, very sleepy, almost nonresponsive and having shortness of breath then he called the squad. No reported significant cough or sputum production. No reported nausea or vomiting. No reported significant trauma. The son did mention that his father had a history of chronic back pain and having problems with moving his neck. The patient had a history of aortic valve replacement with bioprosthetic valve. He had a history of paroxysmal atrial fibrillation, has been on metoprolol for rate control and Eliquis for anticoagulation. He had a history of stage III chronic kidney disease secondary to obstructive uropathy and his baseline creatinine has been fluctuating, it was 2.03 on March,, it was 0.74 on September, and admission creatinine is 1.97. Patient with a history of metastatic prostate cancer with metastases to bone and he never received treatment for it. In the emergency department, patient was lethargic, sleepy but arousable, he was febrile, tachycardic, tachypneic and dyspneic, pulse ox was 94% on 2 L. Blood pressure was stable. Routine blood work was remarkable for hemoglobin of 9.2, lately count of 111,000, BUN is 69 and creatinine is 1.97. His lactic acid was normal. LFT revealed elevated AST and alkaline phosphatase, ALT is normal. Creatinine kinase is 529. Troponin is 0.074. Urinalysis revealed cloudy urine, positive for leukocyte esterase, there was 1025 WBCs and 2+ bacteria. Chest x-ray showed elevated right hemidiaphragm, no acute infiltrate or consolidation. Chest x-ray showed no acute findings. CT scan brain showed no acute infarction or hemorrhage. CT scan cervical spine showed no fractures or dislocations. He is being admitted for sepsis secondary to acute cystitis, severe dehydration, probable mild rhabdomyolysis and indeterminate troponin as well as metabolic encephalopathy secondary to acute infection and sepsis. Past Medical History Past Medical History (Chronic Problems): Chronic Problems (Last Updated 06/02/18 @ 03:12 by Sally Cm MD) Prostate cancer metastatic to bone (Chronic) Stage III chronic kidney disease (Chronic) Dyslipidemia (Chronic) Paroxysmal atrial fibrillation (Chronic) History of aortic valve replacement with bioprosthetic valve (Chronic ~11/12/16) Trifecta GT Tissue Heart Valve Serial # [id number] Model TFGT- 25A @ [facility] BPH with urinary obstruction (Chronic) Hypertension (Chronic) Medical History: Medical History (Last Updated 06/02/18 @ 03:12 by Sally Cm MD) Dyslipidemia (Chronic) E78.5 Paroxysmal atrial fibrillation (Chronic) I48.0 BPH with urinary obstruction (Chronic) N40.1, N13.8 Hypertension (Chronic) I10 Arthritis M19.90 GERD (gastroesophageal reflux disease) K21.9 Macrocytic anemia D53.9 Mass of bladder N32.89 Type 2 diabetes mellitus without complications E11.9 Allergies albuterol Allergy (Verified 06/02/18 01:14) Unknown clonazepam Allergy (Verified 06/02/18 01:14) Unknown ibuprofen Allergy (Verified 06/02/18 01:14) Unknown ipratropium Allergy (Verified 06/02/18 01:14) Unknown aspirin Adverse Reaction (Verified 06/02/18 01:14) Vomiting pt states he vomits blood Home Medications: Ambulatory Orders Medication Instructions Recorded ALPRAZolam [Xanax] 0.5 mg PO 4X/DAY 10/24/15 Ascorbic Acid [Vitamin C] 1,000 mg PO DAILY 10/24/15 Fosinopril Sodium [Monopril] 10 mg PO DAILY 10/24/15 Garlic 1 mg PO DAILY 10/24/15 Metformin HCl [Glucophage] mg PO BIDCM 10/24/15 Multivitamin [Daily Multiple 1 ea PO DAILY 10/24/15 Vitamin] Hanna-3 Fatty Acids/Fish Oil 1 ea PO DAILY 10/24/15 [Hanna 3 1,000 mg Softgel] Vitamin B Complex 1 ea PO DAILY 10/24/15 Vitamin E 1,000 unit PO DAILY 10/24/15 Metoprolol Tartrate [Lopressor 50 mg PO BID #60 tab 10/25/15 (beta lisa)] Cyanocobalamin (Vitamin B-12) 5,000 mcg SL BID 09/18/17 [Vitamin B-12] Methylsulfonylmethane [MSM] 1,500 mg PO TID 09/18/17 Niacinamide 500 mg PO DAILY 09/18/17 Pyridoxine HCl [Vitamin B6] 100 mg PO BID 09/18/17 Sodium Chloride 1 gm PO DAILY 09/18/17 Ubidecarenone [Co Q-10] 200 mg PO DAILY 09/18/17 Vanadyl Sulfate 10 mg PO DAILY 09/18/17 furosemide 40 mg tablet 40 mg PO QDAY #90 tab 09/25/17 simvastatin 40 mg tablet 40 mg PO QPM 09/25/17 Cholecalciferol (VIT D3) [Vitamin 1,000 unit PO DAILY 10/29/17 D3] Ferrous Sulfate [Iron] 325 mg PO DAILY 10/29/17 Apixaban [Eliquis] 5 mg PO BID 03/14/18 Duloxetine Hcl [Cymbalta] 30 mg pe PO DAILY 03/14/18 Acetaminophen [Tylenol Extra 500 mg PO Q4H PRN PRN #20 tablet 03/19/18 Strength] Lisinopril [Zestril] mg PO DAILY 03/19/18 Surgical History: Surgical History (Last Reviewed 09/25/17 @ 16:11 by Lucas Glasgow MD) History of aortic valve replacement with bioprosthetic valve (Chronic) Onset Date: ~11/12/16 Z95.3 Trifecta GT Tissue Heart Valve Serial # [id number] Model TFGT- 25A @ [facility] Surgical History: cataract - bilateral, - - aortic valve replacement October 2016, 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 Lives: Alone Smoking Status: Former smoker Alcohol: None, Rare - *Family History Sibling Family History: Family History (Last Reviewed 09/25/17 @ 16:11 by Lucas Glasgow MD) Sister Heart disease Brother Cancer History Items: Heart Disease Maternal Family History: Family History (Last Reviewed 09/25/17 @ 16:11 by Lucas Glasgow MD) Sister Heart disease Brother Cancer History Items: No pertinent history Paternal Family History: Family History (Last Reviewed 09/25/17 @ 16:11 by Lucas Glasgow MD) Sister Heart disease Brother Cancer History Items: No pertinent history Review of Systems Constitutional: Reports: Anorexia, Weakness, Fatigue. Denies: Chills, Fever Eyes: Denies: Blurred vision, Double vision, Drainage, Redness HEENT: Denies: Difficulty Hearing, Ear Pain, Eye Pain, Nasal Congestion, Sore Throat Cardiovascular: Denies: Chest Pain, Chest Tightness, Palpitations, Syncope Respiratory: Reports: Shortness of Breath. Denies: Cough, Pleuritic Pain, Sputum production, Wheezing Gastrointestinal: Denies: Abdominal Pain, Constipation, Diarrhea, Nausea, Vomiting Genitourinary: Denies: Dysuria, Frequency, Hematuria Musculoskeletal: Reports: Back Pain. Denies: Arm Pain, Foot Pain Skin: Denies: Dryness, Rash Neurological: Reports: Confusion. Denies: Balance problems, Double vision, Slurred speech, Headaches, Incoordination Psychiatric: Denies: Anxiety, Depression Endocrine: Denies: Change in Body Habitus, Polydipsia VTE Information - Inpt Only VTE Present on Admission: No VTE Mechan Device Prophylaxis: None VTE Pharm Prophylaxis ordered?: No - Physical Exam General: Alert, Oriented x3, Cooperative, - - Shortness of breath, sleepy and lethargic but easily arousable. He knows his full name, date of , date and location. HEENT: Atraumatic, PERRLA, EOMI, Normocephalic Oral: No Gingival or Mucosal Lesions/ Ulcerations, Dry Mucosa Neck: Supple, No JVD, Negative Carotid Bruits, No Nuchal Rigidity, Trachea Midline, Thyroid Normal Size and Texture, - - No obvious neck stiffness. Patient's son mentioned that he has chronic neck pain. Lungs: Clear to auscultation, No rhonchi, No wheeze, No rales, Diminished Cardiovascular: Regular rate, Regular Rhythm, Normal S1, Normal S2, PMI Normal, Tachycardic Abdomen: Bowel Sounds Present, Soft, Non Tender, Non-Distended, No Hepato-splenomegaly, Obese Extremities: No clubbing, No cyanosis, No edema Skin: No rashes, No breakdown Lymphatic: No Cervical, Supraclavicular, or Inguinal Adenopathy Neurological: Cranial nerves II-XII grossly intact, Motor Exam 5/5 strength throughout Psych/Mental Status: Normal Affect, Appropriate, Alert and oriented to time, place, person, mood and affect Vital Signs Temp Pulse Resp BP Pulse Ox 101.0 F H 123 H 39 H 131/53 H 95 06/02/18 02:10 06/02/18 02:30 06/02/18 02:30 06/02/18 02:30 06/02/18 02:30 Oxygen Flow Rate (L/min) 2 Oxygen Delivery Method Nasal Cannula Weight: 174 lb 13.225 oz Body Mass Index (BMI) 28.2 Finger Stick Blood Glucose 95 Microbiology Past 72 Hours 06/02/18 02:15 Influenza Types A,B Direct FA (CHELE) - Final Mucosa - Nose Laboratory Tests Past 24 Hrs 06/02/18 06/02/18 06/02/18 01:00 01:10 01:10 WBC 9.1 RBC 3.03 L Hgb 9.2 L Hct 28.3 L MCV 93.4 MCH 30.4 MCHC 32.5 RDW 14.8 H RDW Differential 50.3 H Plt Count 111 L MPV 10.4 Immature Gran % (Auto) 1.400 H Neut % (Auto) 70.5 H Lymph % (Auto) 17.4 L Whiteside % (Auto) 10.5 H Eos % (Auto) 0.0 Baso % (Auto) 0.2 Absolute Neuts (auto) 6.4 Absolute Lymphs (auto) 1.59 Total Counted Not Reportable Nucleated RBC % 1.9 Diff Path Review May foll Absolute Retic 0.18 PT 26.0 H INR 2.4 APTT 39.2 H Specimen Type Sample Site pH Bicarbonate Actual POC Total CO2 Base Excess O2 Saturation ABG pCO2 ABG pO2 Sage Test O2 Delivery Device Liter Flow Blood Gas Notified Whom Sodium Potassium Chloride Carbon Dioxide Anion Gap BUN Creatinine Estim Creat Clear Calc Est GFR (MDRD) Af Amer Est GFR (MDRD) Non-Af BUN/Creatinine Ratio Glucose Lactic Acid Calcium Total Bilirubin AST ALT Alkaline Phosphatase Total Creatine Kinase 529 H Troponin I Total Protein Albumin Globulin Albumin/Globulin Ratio Urine Color Urine Clarity Urine pH Ur Specific [place] Urine Protein Urine Glucose (UA) Urine Ketones Urine Occult Blood Urine Nitrite Urine Bilirubin Urine Urobilinogen Ur Leukocyte Esterase Urine RBC Urine WBC Ur Squamous Epith Cells Urine Bacteria Urine Mucus 06/02/18 06/02/18 06/02/18 01:10 01:10 01:40 WBC RBC Hgb Hct MCV MCH MCHC RDW RDW Differential Plt Count MPV Immature Gran % (Auto) Neut % (Auto) Lymph % (Auto) Whiteside % (Auto) Eos % (Auto) Baso % (Auto) Absolute Neuts (auto) Absolute Lymphs (auto) Total Counted Nucleated RBC % Diff Path Review Absolute Retic PT INR APTT Specimen Type ART Sample Site R Radial pH 7.45 Bicarbonate Actual 24.1 POC Total CO2 25 Base Excess 0 O2 Saturation 95 ABG pCO2 34.6 L ABG pO2 70 L Sage Test POS O2 Delivery Device Nasal Can Liter Flow 2.0 Blood Gas Notified Whom ED MD Sodium 138 Potassium 4.2 Chloride 104 Carbon Dioxide 25.0 Anion Gap 9 BUN 68 H Creatinine 1.97 H Estim Creat Clear Calc 27.89 Est GFR (MDRD) Af Amer 42 L Est GFR (MDRD) Non-Af 35 L BUN/Creatinine Ratio 34.5 H Glucose 266 H Lactic Acid 1.7 Calcium 9.0 Total Bilirubin 0.40 AST 197 H ALT 32 Alkaline Phosphatase 187 H Total Creatine Kinase Troponin I 0.074 H Total Protein 6.2 L Albumin 2.3 L Globulin 3.9 Albumin/Globulin Ratio 0.6 L Urine Color Urine Clarity Urine pH Ur Specific [place] Urine Protein Urine Glucose (UA) Urine Ketones Urine Occult Blood Urine Nitrite Urine Bilirubin Urine Urobilinogen Ur Leukocyte Esterase Urine RBC Urine WBC Ur Squamous Epith Cells Urine Bacteria Urine Mucus 06/02/18 01:55 WBC RBC Hgb Hct MCV MCH MCHC RDW RDW Differential Plt Count MPV Immature Gran % (Auto) Neut % (Auto) Lymph % (Auto) Whiteside % (Auto) Eos % (Auto) Baso % (Auto) Absolute Neuts (auto) Absolute Lymphs (auto) Total Counted Nucleated RBC % Diff Path Review Absolute Retic PT INR APTT Specimen Type Sample Site pH Bicarbonate Actual POC Total CO2 Base Excess O2 Saturation ABG pCO2 ABG pO2 Sage Test O2 Delivery Device Liter Flow Blood Gas Notified Whom Sodium Potassium Chloride Carbon Dioxide Anion Gap BUN Creatinine Estim Creat Clear Calc Est GFR (MDRD) Af Amer Est GFR (MDRD) Non-Af BUN/Creatinine Ratio Glucose Lactic Acid Calcium Total Bilirubin AST ALT Alkaline Phosphatase Total Creatine Kinase Troponin I Total Protein Albumin Globulin Albumin/Globulin Ratio Urine Color Yellow Urine Clarity Sl. Cloudy Urine pH 5.0 Ur Specific [place] 1.020 Urine Protein 30 H Urine Glucose (UA) Normal Urine Ketones 5 H Urine Occult Blood 50 H Urine Nitrite Negative Urine Bilirubin Negative Urine Urobilinogen Normal Ur Leukocyte Esterase 500 H Urine RBC 0-5 SEEN Urine WBC 10-25 SEEN Ur Squamous Epith Cells 0-5 SEEN Urine Bacteria 2+ Urine Mucus 0 SEEN Clinical Impression(s) from Imaging Studies Brain CT 06/02/18 01:25 IMPRESSION: No acute findings. Individualized dose optimization techniques were used for this CT. at 0159 Reported and signed by: Geoff Joaquin MD Electronically Signed: Geoff Joaquin, at 1:58 EST Tel , Service support , Cervical Spine CT 06/02/18 01:25 IMPRESSION: No fracture or dislocation of the cervical spine. Individualized dose optimization techniques were used for this CT. at 0206 Reported and signed by: Geoff Joaquin MD Electronically Signed: Geoff Joaquin, at 2:05 EST Tel , Service support , Chest X-Ray 06/02/18 01:35 IMPRESSION: Low lung volumes with resultant hypoventilatory changes. No definite pneumonia or edema. Interval sternotomy probably for heart valve replacement. at 0154 Reported and signed by: Geoff Joaquin MD Electronically Signed: Geoff Joaquin, at 1:53 EST Tel , Service support , Assessment/Plan This is a 77 years old male patient presented to the emergency room because of altered mental status, lethargy and sleepiness, found to have findings consistent with sepsis secondary to acute cystitis and also found to have severe dehydration, mild rhabdomyolysis and indeterminate troponin. #1 acute cystitis/sepsis: Patient is febrile, dyspneic and tachypneic, tachycardic. Chest x-ray showed no acute infiltrate or consolidation. Blood pressure stable. Lactic acid was normal. Plan: Admit to PCU, cardiac monitoring, IV fluids, blood culture, urine culture, start IV Rocephin 2 g every 12 hours, IV antiemetics, Tylenol as needed, aspiration and fall precautions, repeat CBC, CMP tomorrow morning at 11 AM, PT OT evaluation and treatment. #2 encephalopathy: Probably metabolic secondary to above. At this time, patient is alert, goes back to sleep very quick but arousable, oriented x3. CT scan brain showed no acute findings. CT scan cervical spine without acute fractures. Plan to treat underlying etiology as above. #3 probable mild rhabdomyolysis: Reportedly, patient was in the floor for long time yesterday. Creatinine kinase is 529. Plan: IV fluids, keep Sheffield catheter, and Protopic chart, repeat CMP tomorrow morning. #4 severe dehydration: Mucous membranes are very dry. His BUN is 68 which is elevated compared to his baseline, creatinine is 1.97 which seems to be at his baseline. Plan for IV fluids for hydration, input output chart, repeat BMP tomorrow morning. #5 indeterminate troponin: EKG revealed sinus tachycardia with PACs, no acute ischemic changes. This is likely because of heart strain secondary to tachycardia caused by sepsis and infection. Plan: Serial cardiac enzymes, repeat EKG tomorrow morning, 2D echocardiogram. #6 paroxysmal atrial fibrillation: He is in sinus rhythm, heart rate has been in 120s, blood pressure stable. Plan to continue metoprolol for rate control, continue Eliquis. #7 stage III chronic kidney disease: Serum creatinine is been fluctuating anywhere between 1-3 mg/dL. Admission creatinine is 1.97, stable at baseline but his BUN is elevated compared to his baseline. Plan as above, IV fluids, and Protopic chart, repeat BMP tomorrow morning. #8 metastatic prostate cancer: With metastases to bone, never been treated for it and according to his son, the cancer is widely spread and prognosis is poor. #9 status post aortic valve replacement with bioprosthetic valve: Stable, plan for 2D echocardiogram as above. #10 benign prostatic hypertrophy: Maintain Sheffield catheter, not sure if he is on Flomax or Proscar, will continue if any. #11 hypertension: Blood pressure stable, continue lisinopril and metoprolol. #12 CODE STATUS: Full code, verified with the patient's son who is the power of attorney general. #13 DVT prophylaxis: INR is 2.6. This note was generated with [employer] dictation software. It may contain incorrect words, spelling, and punctuation that were not noted in checking the note before signing. Code Visit Inpatient E&M: 41085 Init Hosp L3
--- NOTE | 2018-06-02 03:15 | HP.PCM_ITS ---
Problem List (1) Prostate cancer metastatic to bone Status: Chronic (2) Stage III chronic kidney disease Status: Chronic (3) History of aortic valve replacement with bioprosthetic valve Status: Chronic Comment: Yumi GONZALEZ Tissue Heart Valve Serial # [id number] Model TFGT- 25A @ [facility] (4) BPH with urinary obstruction Status: Chronic (5) Hypertension Status: Chronic Qualifiers: History of Present Illness Date of Admission: 06/02/18 Chief Complaint: Change in mental status. The patient is a 77 year old M with past medical history as mentioned above presented to the emergency room because of altered mental status. At this time, the patient is sleepy and lethargic but easily arousable, oriented x3. He knows his full name, date of , he knew his son and he no where he is at. He complained of mild low back pain and shortness of breath. He was not able to provide detailed history. Patient's son who is the power of manager of medical was at the bedside. According to the son, patient had a fall yesterday, could not get up and his son called him multiple times but he did not answer. The son came to his father's house, found him on the floor and was not able to ambulate. He helped him and he mentioned that he was okay and did fine after that. Today, he called him again multiple times and he did not answer. The son again came to his father's house and he found his father laying on his couch, very sleepy, almost nonresponsive and having shortness of breath then he called the squad. No reported significant cough or sputum production. No reported nausea or vomiting. No reported significant trauma. The son did mention that his father had a history of chronic back pain and having problems with moving his neck. The patient had a history of aortic valve replacement with bioprosthetic valve. He had a history of paroxysmal atrial fibrillation, has been on metoprolol for rate control and Eliquis for anticoagulation. He had a history of stage III chronic kidney disease secondary to obstructive uropathy and his baseline creatinine has been fluctuating, it was 2.03 on March,, it was 0.74 on September, and admission creatinine is 1.97. Patient with a history of metastatic prostate cancer with metastases to bone and he never received treatment for it. In the emergency department, patient was lethargic, sleepy but arousable, he was febrile, tachycardic, tachypneic and dyspneic, pulse ox was 94% on 2 L. Blood pressure was stable. Routine blood work was remarkable for hemoglobin of 9.2, lately count of 111,000, BUN is 69 and creatinine is 1.97. His lactic acid was normal. LFT revealed elevated AST and alkaline phosphatase, ALT is normal. Creatinine kinase is 529. Troponin is 0.074. Urinalysis revealed cloudy urine, positive for leukocyte esterase, there was 1025 WBCs and 2+ bacteria. Chest x-ray showed elevated right hemidiaphragm, no acute infiltrate or consolidation. Chest x-ray showed no acute findings. CT scan brain showed no acute infarction or hemorrhage. CT scan cervical spine showed no fractures or dislocations. He is being admitted for sepsis secondary to acute cystitis, severe dehydration, probable mild rhabdomyolysis and indeterminate troponin as well as metabolic encephalopathy secondary to acute infection and sepsis. Past Medical History Past Medical History (Chronic Problems): Chronic Problems (Last Updated 06/02/18 @ 03:12 by Sally Cm MD) Prostate cancer metastatic to bone (Chronic) Stage III chronic kidney disease (Chronic) Dyslipidemia (Chronic) Paroxysmal atrial fibrillation (Chronic) History of aortic valve replacement with bioprosthetic valve (Chronic ~11/12/16) Trifecta GT Tissue Heart Valve Serial # [id number] Model TFGT- 25A @ [facility] BPH with urinary obstruction (Chronic) Hypertension (Chronic) Medical History: Medical History (Last Updated 06/02/18 @ 03:12 by Sally Cm MD) Dyslipidemia (Chronic) E78.5 Paroxysmal atrial fibrillation (Chronic) I48.0 BPH with urinary obstruction (Chronic) N40.1, N13.8 Hypertension (Chronic) I10 Arthritis M19.90 GERD (gastroesophageal reflux disease) K21.9 Macrocytic anemia D53.9 Mass of bladder N32.89 Type 2 diabetes mellitus without complications E11.9 Allergies albuterol Allergy (Verified 06/02/18 01:14) Unknown clonazepam Allergy (Verified 06/02/18 01:14) Unknown ibuprofen Allergy (Verified 06/02/18 01:14) Unknown ipratropium Allergy (Verified 06/02/18 01:14) Unknown aspirin Adverse Reaction (Verified 06/02/18 01:14) Vomiting pt states he vomits blood Home Medications: Ambulatory Orders Medication Instructions Recorded ALPRAZolam [Xanax] 0.5 mg PO 4X/DAY 10/24/15 Ascorbic Acid [Vitamin C] 1,000 mg PO DAILY 10/24/15 Fosinopril Sodium [Monopril] 10 mg PO DAILY 10/24/15 Garlic 1 mg PO DAILY 10/24/15 Metformin HCl [Glucophage] mg PO BIDCM 10/24/15 Multivitamin [Daily Multiple 1 ea PO DAILY 10/24/15 Vitamin] [place]-3 Fatty Acids/Fish Oil 1 ea PO DAILY 10/24/15 [[place] 3 1,000 mg Softgel] Vitamin B Complex 1 ea PO DAILY 10/24/15 Vitamin E 1,000 unit PO DAILY 10/24/15 Metoprolol Tartrate [Lopressor 50 mg PO BID #60 tab 10/25/15 (beta lisa)] Cyanocobalamin (Vitamin B-12) 5,000 mcg SL BID 09/18/17 [Vitamin B-12] Methylsulfonylmethane [MSM] 1,500 mg PO TID 09/18/17 Niacinamide 500 mg PO DAILY 09/18/17 Pyridoxine HCl [Vitamin B6] 100 mg PO BID 09/18/17 Sodium Chloride 1 gm PO DAILY 09/18/17 Ubidecarenone [Co Q-10] 200 mg PO DAILY 09/18/17 Vanadyl Sulfate 10 mg PO DAILY 09/18/17 furosemide 40 mg tablet 40 mg PO QDAY #90 tab 09/25/17 simvastatin 40 mg tablet 40 mg PO QPM 09/25/17 Cholecalciferol (VIT D3) [Vitamin 1,000 unit PO DAILY 10/29/17 D3] Ferrous Sulfate [Iron] 325 mg PO DAILY 10/29/17 Apixaban [Eliquis] 5 mg PO BID 03/14/18 Duloxetine Hcl [Cymbalta] 30 mg pe PO DAILY 03/14/18 Acetaminophen [Tylenol Extra 500 mg PO Q4H PRN PRN #20 tablet 03/19/18 Strength] Lisinopril [Zestril] mg PO DAILY 03/19/18 Surgical History: Surgical History (Last Reviewed 09/25/17 @ 16:11 by Lucas Glasgow MD) History of aortic valve replacement with bioprosthetic valve (Chronic) Onset Date: ~11/12/16 Z95.3 Trifecta GT Tissue Heart Valve Serial # [id number] Model TFGT- 25A @ [facility] Surgical History: cataract - bilateral, - - aortic valve replacement October 2016, 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 Lives: Alone Smoking Status: Former smoker Alcohol: None, Rare - *Family History Sibling Family History: Family History (Last Reviewed 09/25/17 @ 16:11 by Lucas Glasgow MD) Sister Heart disease Brother Cancer History Items: Heart Disease Maternal Family History: Family History (Last Reviewed 09/25/17 @ 16:11 by Lucas Glasgow MD) Sister Heart disease Brother Cancer History Items: No pertinent history Paternal Family History: Family History (Last Reviewed 09/25/17 @ 16:11 by Lucas Glasgow MD) Sister Heart disease Brother Cancer History Items: No pertinent history Review of Systems Constitutional: Reports: Anorexia, Weakness, Fatigue. Denies: Chills, Fever Eyes: Denies: Blurred vision, Double vision, Drainage, Redness HEENT: Denies: Difficulty Hearing, Ear Pain, Eye Pain, Nasal Congestion, Sore Throat Cardiovascular: Denies: Chest Pain, Chest Tightness, Palpitations, Syncope Respiratory: Reports: Shortness of Breath. Denies: Cough, Pleuritic Pain, Sputum production, Wheezing Gastrointestinal: Denies: Abdominal Pain, Constipation, Diarrhea, Nausea, Vomiting Genitourinary: Denies: Dysuria, Frequency, Hematuria Musculoskeletal: Reports: Back Pain. Denies: Arm Pain, Foot Pain Skin: Denies: Dryness, Rash Neurological: Reports: Confusion. Denies: Balance problems, Double vision, Slurred speech, Headaches, Incoordination Psychiatric: Denies: Anxiety, Depression Endocrine: Denies: Change in Body Habitus, Polydipsia VTE Information - Inpt Only VTE Present on Admission: No VTE Mechan Device Prophylaxis: None VTE Pharm Prophylaxis ordered?: No - Physical Exam General: Alert, Oriented x3, Cooperative, - - Shortness of breath, sleepy and lethargic but easily arousable. He knows his full name, date of , date and location. HEENT: Atraumatic, PERRLA, EOMI, Normocephalic Oral: No Gingival or Mucosal Lesions/ Ulcerations, Dry Mucosa Neck: Supple, No JVD, Negative Carotid Bruits, No Nuchal Rigidity, Trachea Midline, Thyroid Normal Size and Texture, - - No obvious neck stiffness. Patient's son mentioned that he has chronic neck pain. Lungs: Clear to auscultation, No rhonchi, No wheeze, No rales, Diminished Cardiovascular: Regular rate, Regular Rhythm, Normal S1, Normal S2, PMI Normal, Tachycardic Abdomen: Bowel Sounds Present, Soft, Non Tender, Non-Distended, No Hepato- splenomegaly, Obese Extremities: No clubbing, No cyanosis, No edema Skin: No rashes, No breakdown Lymphatic: No Cervical, Supraclavicular, or Inguinal Adenopathy Neurological: Cranial nerves II-XII grossly intact, Motor Exam 5/5 strength throughout Psych/Mental Status: Normal Affect, Appropriate, Alert and oriented to time, place, person, mood and affect Vital Signs Temp Pulse Resp BP Pulse Ox 101.0 F H 123 H 39 H 131/53 H 95 06/02/18 02:10 06/02/18 02:30 06/02/18 02:30 06/02/18 02:30 06/02/18 02:30 Oxygen Flow Rate (L/min) 2 Oxygen Delivery Method Nasal Cannula Weight: 174 lb 13.225 oz Body Mass Index (BMI) 28.2 Finger Stick Blood Glucose 95 Microbiology Past 72 Hours 06/02/18 02:15 Influenza Types A,B Direct FA (CHELE) - Final Mucosa - Nose Laboratory Tests Past 24 Hrs 06/02/18 06/02/18 06/02/18 01:00 01:10 01:10 WBC 9.1 RBC 3.03 L Hgb 9.2 L Hct 28.3 L MCV 93.4 MCH 30.4 MCHC 32.5 RDW 14.8 H RDW Differential 50.3 H Plt Count 111 L MPV 10.4 Immature Gran % (Auto) 1.400 H Neut % (Auto) 70.5 H Lymph % (Auto) 17.4 L Woodson % (Auto) 10.5 H Eos % (Auto) 0.0 Baso % (Auto) 0.2 Absolute Neuts (auto) 6.4 Absolute Lymphs (auto) 1.59 Total Counted Not Reportable Nucleated RBC % 1.9 Diff Path Review May foll Absolute Retic 0.18 PT 26.0 H INR 2.4 APTT 39.2 H Specimen Type Sample Site pH Bicarbonate Actual POC Total CO2 Base Excess O2 Saturation ABG pCO2 ABG pO2 Sage Test O2 Delivery Device Liter Flow Blood Gas Notified Whom Sodium Potassium Chloride Carbon Dioxide Anion Gap BUN Creatinine Estim Creat Clear Calc Est GFR (MDRD) Af Amer Est GFR (MDRD) Non-Af BUN/Creatinine Ratio Glucose Lactic Acid Calcium Total Bilirubin AST ALT Alkaline Phosphatase Total Creatine Kinase 529 H Troponin I Total Protein Albumin Globulin Albumin/Globulin Ratio Urine Color Urine Clarity Urine pH Ur Specific Fletcher Urine Protein Urine Glucose (UA) Urine Ketones Urine Occult Blood Urine Nitrite Urine Bilirubin Urine Urobilinogen Ur Leukocyte Esterase Urine RBC Urine WBC Ur Squamous Epith Cells Urine Bacteria Urine Mucus 06/02/18 06/02/18 06/02/18 01:10 01:10 01:40 WBC RBC Hgb Hct MCV MCH MCHC RDW RDW Differential Plt Count MPV Immature Gran % (Auto) Neut % (Auto) Lymph % (Auto) Woodson % (Auto) Eos % (Auto) Baso % (Auto) Absolute Neuts (auto) Absolute Lymphs (auto) Total Counted Nucleated RBC % Diff Path Review Absolute Retic PT INR APTT Specimen Type ART Sample Site R Radial pH 7.45 Bicarbonate Actual 24.1 POC Total CO2 25 Base Excess 0 O2 Saturation 95 ABG pCO2 34.6 L ABG pO2 70 L Sage Test POS O2 Delivery Device Nasal Can Liter Flow 2.0 Blood Gas Notified Whom ED MD Sodium 138 Potassium 4.2 Chloride 104 Carbon Dioxide 25.0 Anion Gap 9 BUN 68 H Creatinine 1.97 H Estim Creat Clear Calc 27.89 Est GFR (MDRD) Af Amer 42 L Est GFR (MDRD) Non-Af 35 L BUN/Creatinine Ratio 34.5 H Glucose 266 H Lactic Acid 1.7 Calcium 9.0 Total Bilirubin 0.40 AST 197 H ALT 32 Alkaline Phosphatase 187 H Total Creatine Kinase Troponin I 0.074 H Total Protein 6.2 L Albumin 2.3 L Globulin 3.9 Albumin/Globulin Ratio 0.6 L Urine Color Urine Clarity Urine pH Ur Specific Fletcher Urine Protein Urine Glucose (UA) Urine Ketones Urine Occult Blood Urine Nitrite Urine Bilirubin Urine Urobilinogen Ur Leukocyte Esterase Urine RBC Urine WBC Ur Squamous Epith Cells Urine Bacteria Urine Mucus 06/02/18 01:55 WBC RBC Hgb Hct MCV MCH MCHC RDW RDW Differential Plt Count MPV Immature Gran % (Auto) Neut % (Auto) Lymph % (Auto) Woodson % (Auto) Eos % (Auto) Baso % (Auto) Absolute Neuts (auto) Absolute Lymphs (auto) Total Counted Nucleated RBC % Diff Path Review Absolute Retic PT INR APTT Specimen Type Sample Site pH Bicarbonate Actual POC Total CO2 Base Excess O2 Saturation ABG pCO2 ABG pO2 Sage Test O2 Delivery Device Liter Flow Blood Gas Notified Whom Sodium Potassium Chloride Carbon Dioxide Anion Gap BUN Creatinine Estim Creat Clear Calc Est GFR (MDRD) Af Amer Est GFR (MDRD) Non-Af BUN/Creatinine Ratio Glucose Lactic Acid Calcium Total Bilirubin AST ALT Alkaline Phosphatase Total Creatine Kinase Troponin I Total Protein Albumin Globulin Albumin/Globulin Ratio Urine Color Yellow Urine Clarity Sl. Cloudy Urine pH 5.0 Ur Specific Fletcher 1.020 Urine Protein 30 H Urine Glucose (UA) Normal Urine Ketones 5 H Urine Occult Blood 50 H Urine Nitrite Negative Urine Bilirubin Negative Urine Urobilinogen Normal Ur Leukocyte Esterase 500 H Urine RBC 0-5 SEEN Urine WBC 10-25 SEEN Ur Squamous Epith Cells 0-5 SEEN Urine Bacteria 2+ Urine Mucus 0 SEEN Clinical Impression(s) from Imaging Studies Brain CT 06/02/18 01:25 IMPRESSION: No acute findings. Individualized dose optimization techniques were used for this CT. at 0159 Reported and signed by: Geoff Joaquin MD Electronically Signed: Geoff Joaquin, at 1:58 EST Tel , Service support , Cervical Spine CT 06/02/18 01:25 IMPRESSION: No fracture or dislocation of the cervical spine. Individualized dose optimization techniques were used for this CT. at 0206 Reported and signed by: Geoff Joaquin MD Electronically Signed: Geoff Joaquin, at 2:05 EST Tel , Service support , Chest X-Ray 06/02/18 01:35 IMPRESSION: Low lung volumes with resultant hypoventilatory changes. No definite pneumonia or edema. Interval sternotomy probably for heart valve replacement. at 0154 Reported and signed by: Geoff Joaquin MD Electronically Signed: Geoff Joaquin, at 1:53 EST Tel , Service support , Assessment/Plan This is a 77 years old male patient presented to the emergency room because of altered mental status, lethargy and sleepiness, found to have findings consistent with sepsis secondary to acute cystitis and also found to have severe dehydration, mild rhabdomyolysis and indeterminate troponin. #1 acute cystitis/sepsis: Patient is febrile, dyspneic and tachypneic, tachycardic. Chest x-ray showed no acute infiltrate or consolidation. Blood pressure stable. Lactic acid was normal. Plan: Admit to PCU, cardiac monitoring, IV fluids, blood culture, urine culture, start IV Rocephin 2 g every 12 hours, IV antiemetics, Tylenol as needed, aspiration and fall precautions, repeat CBC, CMP tomorrow morning at 11 AM, PT OT evaluation and treatment. #2 encephalopathy: Probably metabolic secondary to above. At this time, patient is alert, goes back to sleep very quick but arousable, oriented x3. CT scan brain showed no acute findings. CT scan cervical spine without acute fractures. Plan to treat underlying etiology as above. #3 probable mild rhabdomyolysis: Reportedly, patient was in the floor for long time yesterday. Creatinine kinase is 529. Plan: IV fluids, keep Sheffield catheter, and Protopic chart, repeat CMP tomorrow morning. #4 severe dehydration: Mucous membranes are very dry. His BUN is 68 which is elevated compared to his baseline, creatinine is 1.97 which seems to be at his baseline. Plan for IV fluids for hydration, input output chart, repeat BMP tomorrow morning. #5 indeterminate troponin: EKG revealed sinus tachycardia with PACs, no acute ischemic changes. This is likely because of heart strain secondary to tachycardia caused by sepsis and infection. Plan: Serial cardiac enzymes, repeat EKG tomorrow morning, 2D echocardiogram. #6 paroxysmal atrial fibrillation: He is in sinus rhythm, heart rate has been in 120s, blood pressure stable. Plan to continue metoprolol for rate control, continue Eliquis. #7 stage III chronic kidney disease: Serum creatinine is been fluctuating anywhere between 1-3 mg/dL. Admission creatinine is 1.97, stable at baseline but his BUN is elevated compared to his baseline. Plan as above, IV fluids, and Protopic chart, repeat BMP tomorrow morning. #8 metastatic prostate cancer: With metastases to bone, never been treated for it and according to his son, the cancer is widely spread and prognosis is poor. #9 status post aortic valve replacement with bioprosthetic valve: Stable, plan for 2D echocardiogram as above. #10 benign prostatic hypertrophy: Maintain Sheffield catheter, not sure if he is on Flomax or Proscar, will continue if any. #11 hypertension: Blood pressure stable, continue lisinopril and metoprolol. #12 CODE STATUS: Full code, verified with the patient's son who is the power of manager of medical. #13 DVT prophylaxis: INR is 2.6. This note was generated with [employer] dictation software. It may contain incorrect words, spelling, and punctuation that were not noted in checking the note before signing. Code Visit Inpatient E&M: 46383 Init Hosp L3
--- NOTE | 2018-06-02 03:50 | ECHOD_ITS ---
Reason For Study: DYSPNEA/SOB Procedure This was a 2D Doppler, Color Flow transthoracic echocardiogram. The study was technically difficult. Exam performed portable in patient room. Left Ventricle Normal LV size. Left ventricular systolic function is normal. The estimated ejection fraction is 65 %. Stage 1 diastolic dysfunction. No regional wall motion abnormalities noted. Right Ventricle Normal RV size. Normal systolic function. Atria Normal left atrium. Normal right atrium. Mitral Valve There is moderate mitral annular calcification. Mild (1+) eccentric mitral valve insufficiency. Tricuspid Valve Normal tricuspid valve. Mild to moderate (1-2+) tricuspid valve insufficiency. Pulmonary artery systolic pressure is 40 mmHg. Aortic Valve Peak aortic valve gradient 17 mmHg. Mean aortic valve gradient 10 mmHg. Calculated aortic valve area (continuity equation) is 1.9 cm2. Stable appearing bioprosthetic aortic valve apparatus. Great Vessels Normal aortic root. The pulmonary artery is normal size. Normal inferior vena cava. Pericardium/Pleural No pericardial effusion. MMode/2D Measurements & Calculations LVIDd: 4.1 cm IVSd: 1.2 cm LVOT diam: 2.1 cm LVIDs: 2.1 cm LVPWd: 1.0 cm LVOT area: 3.3 cm2 RVDd: 3.3 cm FS: 48.0 % Ao root diam: 3.2 cm LAV(MOD-bp): 43.4 ml LVAd ap4: 27.6 cm2 LA dimension: 3.2 cm LAV(MOD-bp) Indexed: 23.4 ml/m2 EDV(MOD-sp4): 81.5 ml LAV(MOD-sp2): 43.9 ml EDV(sp4-el): 85.6 ml LAV(MOD-sp4): 42.8 ml LVAs ap4: 11.0 cm2 ESV(MOD-sp4): 17.1 ml ESV(sp4-el): 17.8 ml EF(MOD-sp4): 79.1 % EF(sp4-el): 79.2 % SV(MOD-sp4): 64.4 ml SV(sp4-el): 67.8 ml LA A4 area: 16.3 cm2 RA A4 area: 11.2 cm2 Time Measurements MV dec time: 0.26 sec Doppler Measurements & Calculations MV E max juan manuel: 93.4 cm/sec Lat Peak E' Juan Manuel: 11.6 cm/sec Med Peak E' Juan Manuel: 6.3 cm/sec MV A max juan manuel: 151.1 cm/sec E/E' lat: 8.1 E/E' med: 14.7 MV E/A: 0.62 MV V2 max: 148.8 cm/sec Ao V2 max: 208.9 cm/sec LV V1 max: 121.5 cm/sec MV max P.9 mmHg Ao max P.5 mmHg LV V1 max P.9 mmHg MV V2 mean: 92.2 cm/sec Ao V2 mean: 143.2 cm/sec LV V1 mean P.8 mmHg MV mean P.8 mmHg Ao mean P.4 mmHg LV V1 mean: 92.3 cm/sec MV V2 VTI: 27.2 cm Ao V2 VTI: 31.6 cm LV V1 VTI: 23.7 cm MVA(VTI): 2.9 cm2 ESTUARDO(I,D): 2.5 cm2 ESTUARDO(V,D): 1.9 cm2 SV(LVOT): 79.2 ml PA V2 max: 129.1 cm/sec TR max juan manuel: 301.5 cm/sec TR max P.4 mmHg Interpretation Summary Normal LV size. Left ventricular systolic function is normal. The estimated ejection fraction is 65 %. Stage 1 diastolic dysfunction. There is moderate mitral annular calcification. Mild (1+) eccentric mitral valve insufficiency. Stable appearing bioprosthetic aortic valve apparatus. Mean aortic valve gradient 10 mmHg. Compared to previous study, the left ventricular systolic function is the same.. Compared to prior study, there is no significant change. Ordering Physician: Sally Cm Referring Physician: MONICA LAGUNAS Performed By: Maria Antonia Wilder RDCS
[2018-06-02] MEDS: 0.9% Normal Saline 1,000 ML 125 ML IV ×2 (04:25→14:14)
[2018-06-02] MEDS: Acetaminophen 325 MG Tablet 650 MG PO (05:14)
[2018-06-02] MEDS: 0.9% Normal Saline 1,000 ML 999 ML IV (05:45)
--- NOTE | 2018-06-02 05:55 | EKG12_ITS ---
Test Reason : AM Blood Pressure : / mmHG Vent. Rate : 116 BPM Atrial Rate : 116 BPM P-R Int : 130 ms QRS Dur : 076 ms QT Int : 288 ms P-R-T Axes : 021 -01 -05 degrees QTc Int : 400 ms Sinus tachycardia with occasional Premature ventricular complexes Nonspecific ST and T wave abnormality Abnormal ECG When compared with ECG of 30-SEP-2017 15:02, Premature ventricular complexes are now Present Nonspecific T wave abnormality, worse in Anterolateral leads Confirmed by SUZIE BARRERA, ALON ([id number]), editor newspaper LOLA RODGERS ([id number]) on 06/03/2018 1:09:24 PM Referred By: Sally Cm Confirmed By:ALON LARSEN MD
[2018-06-02 06:01] LABS: Base Excess -3 mmol/L (-2 to +2); Bicarbonate 21.9 mmol/L (22-26); Blood Gas Specimen Type ART; O2 Delivery Device Nasal Can; PO2 66 mmHG (75-100); SITE L Radial; SO2 93 % (95-99); Time Given 555; Total Carbon Dioxide 23 mmol/L; pCO2 34.3 mmHg (35-45); pH 7.41 (7.35-7.45)
[2018-06-02 07:01] LABS: Bedside Glucose 214 mg/dL (70-110)
[2018-06-02 08:04] LABS: Anion Gap 9 (5-15); BUN 68 mg/dL (7-18); BUN/Creat Ratio 38.9 RATIO (10-20); Calcium,Total 8.2 mg/dL (8.5-10.1); Chloride 111 mmol/L (98-107); Creatinine, Serum 1.75 mg/dL (0.70-1.30); EST Glomerular Filtration Rate 40 mL/min (>60); Est Glom Filt Rate - Afr Amer 49 mL/min (>60); Estimated Creatinine Clearance 31.39 ml/min; Glucose 224 mg/dL (74-106); Sodium Level 141 mmol/L (136-145)
[2018-06-02 08:07] LABS: Absolute Lymphocyte Count 1.57 X10^3/ul (0.83-4.51); Basophil# 0.01 X10^3/uL; Basophil% 0.1 % (0-1); Eosinophil# 0.01 X10^3/uL; Eosinophils% 0.1 % (0-5); Hematocrit 25.8 % (40-54); Hemoglobin 8.1 g/dl (13.0-16.5); Lymphocyte # 1.57 X10^3/ul (4.0); Mean Corp Hgb Conc 31.4 g/gl (32-36); Mean Corpuscular Hgb 29.5 pg (27.0-32.0); Mean Corpuscular Volume 93.8 fL (80-94); Mean Platelet Vol. 10.8 fl (6.2-12.0); Monocyte# 0.97 X10^3/uL; Monocyte% 11.1 % (0-10); Neutrophil # 6.04 X10^3/uL (2.7-7.7); Neutrophil % 69.4 % (47-70); Platelet Count 102 K/mm3 (150-450); RBC Distribution Width CV 14.9 % (11.6-14.6); RBC Distribution Width SD 50.9 fl (35.1-43.9); Red Blood Count 2.75 M/mm3 (4.6-6.2); White Blood Count 8.7 K/mm3 (4.4-11.0)
[2018-06-02 08:08] LABS: POSITIVE COUNT NO; POSITIVE DIFFERENTIAL NO; POSITIVE MORPHOLOGY NO
--- NOTE | 2018-06-02 08:26 | CPS ---
pt was started on Bipap per order. Pt was increased from 01/02 to 03/06 for comfort. Fio2 was titrated to 40% with saturation at 97%.. Nurse aware of changes.
--- NOTE | 2018-06-02 08:30 | CPS ---
pt aliya bipap well
[2018-06-02] MEDS: Insulin Lispro 100 UNIT/ML INSULN.PEN SC ×3 (09:25→17:32)
[2018-06-02 11:25] LABS: International Normalized Ratio 2.1; Prothrombin Time (Protime)PT. 23.5 SECONDS (11.7-14.9)
[2018-06-02] MEDS: Metoprolol Tartrate 50 MG Tablet PO (11:29)
[2018-06-02 11:35] LABS: Absolute Neutrophil Count 5.9 X10^3/uL (2.0-7.7); Basophil# 0.02 X10^3/uL; Basophil% 0.2 % (0-1); Eosinophil# 0.01 X10^3/uL; Eosinophils% 0.1 % (0-5); Hemoglobin 7.9 g/dl (13.0-16.5); Lymphocyte % 21.6 % (19-41); Mean Corp Hgb Conc 31.6 g/gl (32-36); Mean Corpuscular Hgb 29.4 pg (27.0-32.0); Mean Corpuscular Volume 92.9 fL (80-94); Mean Platelet Vol. 10.7 fl (6.2-12.0); Monocyte# 0.91 X10^3/uL; Monocyte% 10.3 % (0-10); Neutrophil # 5.85 X10^3/uL (2.7-7.7); Neutrophil % 66.4 % (47-70); Platelet Count 93 K/mm3 (150-450); Red Blood Count 2.69 M/mm3 (4.6-6.2); White Blood Count 8.8 K/mm3 (4.4-11.0)
[2018-06-02 11:36] LABS: ALB/GLOB Ratio 0.5 RATIO (0.9-2.4); AST(SGOT) 156 U/L (15-37); Alanine Aminotransfer ALT/SGPT 28 U/L (16-61); Albumin, Serum 1.9 g/dL (3.2-5.0); Alkaline Phosphatase 155 U/L (45-117); Anion Gap 13 (5-15); BUN 70 mg/dL (7-18); BUN/Creat Ratio 37.6 RATIO (10-20); CPK Total, Creatine Kinase 386 U/L (39-308); Calcium,Total 8.3 mg/dL (8.5-10.1); Chloride 111 mmol/L (98-107); Creatinine, Serum 1.86 mg/dL (0.70-1.30); EST Glomerular Filtration Rate 38 mL/min (>60); Est Glom Filt Rate - Afr Amer 45 mL/min (>60); Estimated Creatinine Clearance 29.54 ml/min; Globulin 3.5 g/dL (2.2-4.2); Glucose 231 mg/dL (74-106); Potassium 4.1 mmol/L (3.5-5.1); Protein, Total 5.4 g/dL (6.4-8.2); Sodium Level 144 mmol/L (136-145)
[2018-06-02 11:37] LABS: Differential Indicated SCAN CRITERIA MET; POSITIVE COUNT NO; POSITIVE DIFFERENTIAL NO; POSITIVE MORPHOLOGY NO
[2018-06-02 11:38] LABS: Absolute Nucleated RBC Count 0.15 10^3/uL (0-5); NRBC Flagged by Analyzer 1.6 % (0-5)
[2018-06-02 12:20] LABS: Bedside Glucose 221 mg/dL (70-110)
[2018-06-02 12:34] LABS: Polychromasia RARE
[2018-06-02 12:36] LABS: Platelet Estimate MOD DEC (ADEQ)
[2018-06-02 13:47] LABS: D-Dimer Quantitative (DVT/PE) > 20.00 FEU/ug/m (0.27-0.49)
--- NOTE | 2018-06-02 13:55 | NM_ITS ---
CLINICAL: Male, 77 years old. Short of breath. NUCLEAR VENTILATION/PERFUSION - LUNG TECHNIQUE: The patient was administered 5.1 mCi of Tc MAA followed by a perfusion lung scan. The patient was administered 50 mCi of Tc DTPA aerosol followed by a ventilation lung scan. Comparison made to prior chest radiograph dated 06/02/2018. COMPARISON STUDIES : NM - None. CR - 06/02/2018. CT - Not available for review at this time. MR - Not available for review at this time. FINDINGS: Markedly limited examination because of patient condition. Perfusion images are significantly better than the ventilation images, and do not show definite moderate to large segmental perfusion defects. There is mild diffuse heterogeneity. The ventilation study demonstrates heterogeneous ventilation throughout both lung jordan. There is central deposition. NM/Lung Scan Vent/Perf IMPRESSION: Low quality VQ scan, most consistent with low probability of pulmonary embolism. Electronically Signed: Kenny Greene MD at 16:31 EST , Service support ,
--- NOTE | 2018-06-02 14:26 | PCM.PROGNOTE ---
<Tina Freitas - Last Filed: 06/02/18 14:52> Subjective: Patient seen and examined. Reports his breathing is at baseline. Denies fever, chills. Complains of generalized weakness and states he has fallen twice at home within the last week. - Physical Exam General: Alert, Oriented x3, Cooperative HEENT: Atraumatic, PERRLA, EOMI, Normocephalic Oral: Dry Mucosa Neck: Supple, No JVD, Negative Carotid Bruits Lungs: Clear to auscultation, Diminished Cardiovascular: Regular Rhythm, Normal S1, Normal S2, No murmurs, Tachycardic Abdomen: Bowel Sounds Present, Soft, Non Tender, Non-Distended Extremities: No clubbing, No cyanosis, No edema, Capillary Refill Less than 3 Seconds Skin: No rashes, No breakdown Musculoskeletal: No Tenderness to Palpation of Joints or Extremities Neurological: Cranial nerves II-XII grossly intact, Neuro grossly intact Psych/Mental Status: Normal Affect, Appropriate Vital Signs Temp Pulse Resp BP Pulse Ox 98.4 F 120 H 24 H 101/56 L 96 06/02/18 13:58 06/02/18 13:58 06/02/18 13:58 06/02/18 13:58 06/02/18 13:58 Oxygen Flow Rate (L/min) 2 Oxygen Delivery Method Nasal Cannula Weight: 168 lb 13.985 oz Body Mass Index (BMI) 27.1 Finger Stick Blood Glucose 95 Intake and Output for Last 24 Hours 05/31/18 06/01/18 06/02/18 23:59 23:59 23:59 Intake Total 1315 / 1315 Output Total 300 / 300 Balance 1015 / 1015 Microbiology Past 72 Hours 06/02/18 02:15 Influenza Types A,B Direct FA (CHELE) - Final Mucosa - Nose Laboratory Tests Past 24 Hrs 06/02/18 06/02/18 06/02/18 01:00 01:10 01:10 WBC 9.1 RBC 3.03 L Hgb 9.2 L Hct 28.3 L MCV 93.4 MCH 30.4 MCHC 32.5 RDW 14.8 H RDW Differential 50.3 H Plt Count 111 L MPV 10.4 Immature Gran % (Auto) 1.400 H Neut % (Auto) 70.5 H Lymph % (Auto) 17.4 L [place] % (Auto) 10.5 H Eos % (Auto) 0.0 Baso % (Auto) 0.2 Absolute Neuts (auto) 6.4 Absolute Lymphs (auto) 1.59 Total Counted Not Reportable Nucleated RBC % 1.9 Diff Path Review May foll Platelet Estimate Polychromasia Absolute Retic 0.18 PT 26.0 H INR 2.4 APTT 39.2 H D-Dimer Quant (PE/DVT) Specimen Type Sample Site pH Bicarbonate Actual POC Total CO2 Base Excess O2 Saturation ABG pCO2 ABG pO2 Sage Test O2 Delivery Device Liter Flow Blood Gas Notified Whom Blood Gas Notified Time Sodium Potassium Chloride Carbon Dioxide Anion Gap BUN Creatinine Estim Creat Clear Calc Est GFR (MDRD) Af Amer Est GFR (MDRD) Non-Af BUN/Creatinine Ratio Glucose Lactic Acid Calcium Total Bilirubin AST ALT Alkaline Phosphatase Total Creatine Kinase 529 H Troponin I Total Protein Albumin Globulin Albumin/Globulin Ratio Urine Color Urine Clarity Urine pH Ur Specific [place] Urine Protein Urine Glucose (UA) Urine Ketones Urine Occult Blood Urine Nitrite Urine Bilirubin Urine Urobilinogen Ur Leukocyte Esterase Urine RBC Urine WBC Ur Squamous Epith Cells Urine Bacteria Urine Mucus 06/02/18 06/02/18 06/02/18 01:10 01:10 01:40 WBC RBC Hgb Hct MCV MCH MCHC RDW RDW Differential Plt Count MPV Immature Gran % (Auto) Neut % (Auto) Lymph % (Auto) [place] % (Auto) Eos % (Auto) Baso % (Auto) Absolute Neuts (auto) Absolute Lymphs (auto) Total Counted Nucleated RBC % Diff Path Review Platelet Estimate Polychromasia Absolute Retic PT INR APTT D-Dimer Quant (PE/DVT) Specimen Type ART Sample Site R Radial pH 7.45 Bicarbonate Actual 24.1 POC Total CO2 25 Base Excess 0 O2 Saturation 95 ABG pCO2 34.6 L ABG pO2 70 L Sage Test POS O2 Delivery Device Nasal Can Liter Flow 2.0 Blood Gas Notified Whom ED MD Blood Gas Notified Time Sodium 138 Potassium 4.2 Chloride 104 Carbon Dioxide 25.0 Anion Gap 9 BUN 68 H Creatinine 1.97 H Estim Creat Clear Calc 27.89 Est GFR (MDRD) Af Amer 42 L Est GFR (MDRD) Non-Af 35 L BUN/Creatinine Ratio 34.5 H Glucose 266 H Lactic Acid 1.7 Calcium 9.0 Total Bilirubin 0.40 AST 197 H ALT 32 Alkaline Phosphatase 187 H Total Creatine Kinase Troponin I 0.074 H Total Protein 6.2 L Albumin 2.3 L Globulin 3.9 Albumin/Globulin Ratio 0.6 L Urine Color Urine Clarity Urine pH Ur Specific [place] Urine Protein Urine Glucose (UA) Urine Ketones Urine Occult Blood Urine Nitrite Urine Bilirubin Urine Urobilinogen Ur Leukocyte Esterase Urine RBC Urine WBC Ur Squamous Epith Cells Urine Bacteria Urine Mucus 06/02/18 06/02/18 06/02/18 01:55 04:48 05:57 WBC RBC Hgb Hct MCV MCH MCHC RDW RDW Differential Plt Count MPV Immature Gran % (Auto) Neut % (Auto) Lymph % (Auto) [place] % (Auto) Eos % (Auto) Baso % (Auto) Absolute Neuts (auto) Absolute Lymphs (auto) Total Counted Nucleated RBC % Diff Path Review Platelet Estimate Polychromasia Absolute Retic PT INR APTT D-Dimer Quant (PE/DVT) Specimen Type ART Sample Site L Radial pH 7.41 Bicarbonate Actual 21.9 L POC Total CO2 23 Base Excess -3 L O2 Saturation 93 L ABG pCO2 34.3 L ABG pO2 66 L Sage Test O2 Delivery Device Nasal Can Liter Flow 4.0 Blood Gas Notified Whom HOSP Blood Gas Notified Time 555 Sodium Potassium Chloride Carbon Dioxide Anion Gap BUN Creatinine Estim Creat Clear Calc Est GFR (MDRD) Af Amer Est GFR (MDRD) Non-Af BUN/Creatinine Ratio Glucose Lactic Acid Calcium Total Bilirubin AST ALT Alkaline Phosphatase Total Creatine Kinase Troponin I 0.057 H Total Protein Albumin Globulin Albumin/Globulin Ratio Urine Color Yellow Urine Clarity Sl. Cloudy Urine pH 5.0 Ur Specific [place] 1.020 Urine Protein 30 H Urine Glucose (UA) Normal Urine Ketones 5 H Urine Occult Blood 50 H Urine Nitrite Negative Urine Bilirubin Negative Urine Urobilinogen Normal Ur Leukocyte Esterase 500 H Urine RBC 0-5 SEEN Urine WBC 10-25 SEEN Ur Squamous Epith Cells 0-5 SEEN Urine Bacteria 2+ Urine Mucus 0 SEEN 06/02/18 06/02/18 06/02/18 07:00 07:00 07:00 WBC 8.7 RBC 2.75 L Hgb 8.1 L Hct 25.8 L MCV 93.8 MCH 29.5 MCHC 31.4 L RDW 14.9 H RDW Differential 50.9 H Plt Count 102 L MPV 10.8 Immature Gran % (Auto) 1.300 H Neut % (Auto) 69.4 Lymph % (Auto) 18.0 L [place] % (Auto) 11.1 H Eos % (Auto) 0.1 Baso % (Auto) 0.1 Absolute Neuts (auto) 6.0 Absolute Lymphs (auto) 1.57 Total Counted Not Reportable Nucleated RBC % Diff Path Review Platelet Estimate Polychromasia Absolute Retic PT INR APTT D-Dimer Quant (PE/DVT) Specimen Type Sample Site pH Bicarbonate Actual POC Total CO2 Base Excess O2 Saturation ABG pCO2 ABG pO2 Sage Test O2 Delivery Device Liter Flow Blood Gas Notified Whom Blood Gas Notified Time Sodium 141 Potassium 4.0 Chloride 111 H Carbon Dioxide 21.0 Anion Gap 9 BUN 68 H Creatinine 1.75 H Estim Creat Clear Calc 31.39 Est GFR (MDRD) Af Amer 49 L Est GFR (MDRD) Non-Af 40 L BUN/Creatinine Ratio 38.9 H Glucose 224 H Lactic Acid Calcium 8.2 L Total Bilirubin AST ALT Alkaline Phosphatase Total Creatine Kinase Troponin I 0.073 H Total Protein Albumin Globulin Albumin/Globulin Ratio Urine Color Urine Clarity Urine pH Ur Specific [place] Urine Protein Urine Glucose (UA) Urine Ketones Urine Occult Blood Urine Nitrite Urine Bilirubin Urine Urobilinogen Ur Leukocyte Esterase Urine RBC Urine WBC Ur Squamous Epith Cells Urine Bacteria Urine Mucus 06/02/18 06/02/18 06/02/18 11:10 11:10 11:10 WBC 8.8 RBC 2.69 L Hgb 7.9 L Hct 25.0 L MCV 92.9 MCH 29.4 MCHC 31.6 L RDW 15.0 H RDW Differential 51.0 H Plt Count 93 L MPV 10.7 Immature Gran % (Auto) 1.400 H Neut % (Auto) 66.4 Lymph % (Auto) 21.6 [place] % (Auto) 10.3 H Eos % (Auto) 0.1 Baso % (Auto) 0.2 Absolute Neuts (auto) 5.9 Absolute Lymphs (auto) 1.90 Total Counted Not Reportable Nucleated RBC % 1.6 Diff Path Review May foll Platelet Estimate MOD DEC Polychromasia RARE Absolute Retic 0.15 PT 23.5 H INR 2.1 APTT D-Dimer Quant (PE/DVT) Specimen Type Sample Site pH Bicarbonate Actual POC Total CO2 Base Excess O2 Saturation ABG pCO2 ABG pO2 Sage Test O2 Delivery Device Liter Flow Blood Gas Notified Whom Blood Gas Notified Time Sodium 144 Potassium 4.1 Chloride 111 H Carbon Dioxide 20.0 L Anion Gap 13 BUN 70 H Creatinine 1.86 H Estim Creat Clear Calc 29.54 Est GFR (MDRD) Af Amer 45 L Est GFR (MDRD) Non-Af 38 L BUN/Creatinine Ratio 37.6 H Glucose 231 H Lactic Acid Calcium 8.3 L Total Bilirubin 0.20 AST 156 H ALT 28 Alkaline Phosphatase 155 H Total Creatine Kinase 386 H Troponin I Total Protein 5.4 L Albumin 1.9 L Globulin 3.5 Albumin/Globulin Ratio 0.5 L Urine Color Urine Clarity Urine pH Ur Specific [place] Urine Protein Urine Glucose (UA) Urine Ketones Urine Occult Blood Urine Nitrite Urine Bilirubin Urine Urobilinogen Ur Leukocyte Esterase Urine RBC Urine WBC Ur Squamous Epith Cells Urine Bacteria Urine Mucus 06/02/18 06/02/18 11:10 13:00 WBC RBC Hgb Hct MCV MCH MCHC RDW RDW Differential Plt Count MPV Immature Gran % (Auto) Neut % (Auto) Lymph % (Auto) [place] % (Auto) Eos % (Auto) Baso % (Auto) Absolute Neuts (auto) Absolute Lymphs (auto) Total Counted Nucleated RBC % Diff Path Review Platelet Estimate Polychromasia Absolute Retic PT INR APTT D-Dimer Quant (PE/DVT) Cancelled > 20.00 H* Specimen Type Sample Site pH Bicarbonate Actual POC Total CO2 Base Excess O2 Saturation ABG pCO2 ABG pO2 Sage Test O2 Delivery Device Liter Flow Blood Gas Notified Whom Blood Gas Notified Time Sodium Potassium Chloride Carbon Dioxide Anion Gap BUN Creatinine Estim Creat Clear Calc Est GFR (MDRD) Af Amer Est GFR (MDRD) Non-Af BUN/Creatinine Ratio Glucose Lactic Acid Calcium Total Bilirubin AST ALT Alkaline Phosphatase Total Creatine Kinase Troponin I Total Protein Albumin Globulin Albumin/Globulin Ratio Urine Color Urine Clarity Urine pH Ur Specific [place] Urine Protein Urine Glucose (UA) Urine Ketones Urine Occult Blood Urine Nitrite Urine Bilirubin Urine Urobilinogen Ur Leukocyte Esterase Urine RBC Urine WBC Ur Squamous Epith Cells Urine Bacteria Urine Mucus POC Glucose 06/02/18 06/02/18 11:38 06:49 POC Glucose 221 H 214 H Medical Necessity - Tobacco Use Smoking Status: Former smoker Assessment/Plan 1. Acute sepsis presumably secondary to acute cystitis-UA positive on admission. Culture pending. Blood cultures pending. Continue IV Rocephin pending cultures. 2. Acute metabolic encephalopathy-secondary to #1. Continue to treat underlying infectious process. CT of brain showed no acute findings. CT scan of cervical spine without acute fractures. 3. Acute hypoxic respiratory insufficiency-chest x-ray showed no infiltrate or consolidation. Repeat chest x-ray following hydration. Continue supplement oxygen to maintain O2 at or above 90%. D-dimer elevated. Unable to obtain CTA given renal function. VQ scan ordered. 4. Mild rhabdomyolysis-IV fluids. Improving. Trend CK. 5. Acute on chronic normocytic anemia-Baseline hemoglobin 9-10. Hemoglobin currently 7.9. Possibly due to hemodilution however BUN significantly elevated in comparison to creatinine. Check stool for occult blood to rule out GI bleed. Trend CBC. 6. Indeterminate troponin-troponins did not trend. Suspect demand ischemia as a result of #1. EKG without ST-T changes. Echocardiogram shows an EF of 65%, stage I diastolic dysfunction, stable appearing bioprosthetic aortic valve apparatus. 7. Stage III chronic kidney disease-at baseline, trend BMP. 8. Paroxysmal atrial fibrillation-continue metoprolol, Eliquis regimen. 9. Status post aortic valve replacement with bioprosthetic valve 10. Metastatic prostate cancer/BPH-[place] placed in ER. Initiated on Flomax. 11. Hypertension-continue beta-lisa, lisinopril regimen. 12. Hyperlipidemia-continue statin. 13. Depression-continue Cymbalta regimen. 14. Debility with falls at home- PT/OT. Anticipate possible need for SNF. DVT prophylaxis-Eliquis This patient was seen by OWEN Reveles under the supervision of Dr. Bertrand. <Erika Bertrand - Last Filed: 06/03/18 05:51> - Physical Exam Vital Signs Temp Pulse Resp BP Pulse Ox 99.1 F 118 H 16 109/46 L 95 06/03/18 05:00 06/03/18 05:00 06/03/18 05:00 06/03/18 05:00 06/03/18 05:00 Oxygen Flow Rate (L/min) 2 Oxygen Delivery Method Mechanical Ventilator Weight: 73.3 kg Body Mass Index (BMI) 27.1 Finger Stick Blood Glucose 95 Intake and Output for Last 24 Hours 06/01/18 06/02/18 06/03/18 23:59 23:59 23:59 Intake Total 1435 / 1435 189 / 189 Output Total 500 / 500 200 / 200 Balance 935 / 935 -11 / -11 Microbiology Past 72 Hours 06/02/18 02:15 Influenza Types A,B Direct FA (CHELE) - Final Mucosa - Nose Laboratory Tests Past 24 Hrs 06/02/18 06/02/18 06/02/18 01:10 04:48 05:57 WBC RBC Hgb Hct MCV MCH MCHC RDW RDW Differential Plt Count MPV Immature Gran % (Auto) Neut % (Auto) Lymph % (Auto) [place] % (Auto) Eos % (Auto) Baso % (Auto) Absolute Neuts (auto) Absolute Lymphs (auto) Total Counted Nucleated RBC % Diff Path Review Reviewed Platelet Estimate Polychromasia Absolute Retic PT INR D-Dimer Quant (PE/DVT) Specimen Type ART Sample Site L Radial pH 7.41 Bicarbonate Actual 21.9 L POC Total CO2 23 Base Excess -3 L O2 Saturation 93 L O2 % ABG pCO2 34.3 L ABG pO2 66 L Saeg Test Respiration Rate O2 Delivery Device Nasal Can Liter Flow 4.0 Minute Volume Vent Mode Tidal Volume POC PEEP Blood Gas Notified Whom HOSP MD Blood Gas Notified Time 555 Sodium Potassium Chloride Carbon Dioxide Anion Gap BUN Creatinine Estim Creat Clear Calc Est GFR (MDRD) Af Amer Est GFR (MDRD) Non-Af BUN/Creatinine Ratio Glucose Calcium Total Bilirubin AST ALT Alkaline Phosphatase Total Creatine Kinase Troponin I 0.057 H Total Protein Albumin Globulin Albumin/Globulin Ratio Triglycerides 06/02/18 06/02/18 06/02/18 07:00 07:00 07:00 WBC 8.7 RBC 2.75 L Hgb 8.1 L Hct 25.8 L MCV 93.8 MCH 29.5 MCHC 31.4 L RDW 14.9 H RDW Differential 50.9 H Plt Count 102 L MPV 10.8 Immature Gran % (Auto) 1.300 H Neut % (Auto) 69.4 Lymph % (Auto) 18.0 L [place] % (Auto) 11.1 H Eos % (Auto) 0.1 Baso % (Auto) 0.1 Absolute Neuts (auto) 6.0 Absolute Lymphs (auto) 1.57 Total Counted Not Reportable Nucleated RBC % Diff Path Review Platelet Estimate Polychromasia Absolute Retic PT INR D-Dimer Quant (PE/DVT) Specimen Type Sample Site pH Bicarbonate Actual POC Total CO2 Base Excess O2 Saturation O2 % ABG pCO2 ABG pO2 Sage Test Respiration Rate O2 Delivery Device Liter Flow Minute Volume Vent Mode Tidal Volume POC PEEP Blood Gas Notified Whom Blood Gas Notified Time Sodium 141 Potassium 4.0 Chloride 111 H Carbon Dioxide 21.0 Anion Gap 9 BUN 68 H Creatinine 1.75 H Estim Creat Clear Calc 31.39 Est GFR (MDRD) Af Amer 49 L Est GFR (MDRD) Non-Af 40 L BUN/Creatinine Ratio 38.9 H Glucose 224 H Calcium 8.2 L Total Bilirubin AST ALT Alkaline Phosphatase Total Creatine Kinase Troponin I 0.073 H Total Protein Albumin Globulin Albumin/Globulin Ratio Triglycerides 06/02/18 06/02/18 06/02/18 11:10 11:10 11:10 WBC 8.8 RBC 2.69 L Hgb 7.9 L Hct 25.0 L MCV 92.9 MCH 29.4 MCHC 31.6 L RDW 15.0 H RDW Differential 51.0 H Plt Count 93 L MPV 10.7 Immature Gran % (Auto) 1.400 H Neut % (Auto) 66.4 Lymph % (Auto) 21.6 [place] % (Auto) 10.3 H Eos % (Auto) 0.1 Baso % (Auto) 0.2 Absolute Neuts (auto) 5.9 Absolute Lymphs (auto) 1.90 Total Counted Not Reportable Nucleated RBC % 1.6 Diff Path Review May foll Platelet Estimate MOD DEC Polychromasia RARE Absolute Retic 0.15 PT 23.5 H INR 2.1 D-Dimer Quant (PE/DVT) Specimen Type Sample Site pH Bicarbonate Actual POC Total CO2 Base Excess O2 Saturation O2 % ABG pCO2 ABG pO2 Sage Test Respiration Rate O2 Delivery Device Liter Flow Minute Volume Vent Mode Tidal Volume POC PEEP Blood Gas Notified Whom Blood Gas Notified Time Sodium 144 Potassium 4.1 Chloride 111 H Carbon Dioxide 20.0 L Anion Gap 13 BUN 70 H Creatinine 1.86 H Estim Creat Clear Calc 29.54 Est GFR (MDRD) Af Amer 45 L Est GFR (MDRD) Non-Af 38 L BUN/Creatinine Ratio 37.6 H Glucose 231 H Calcium 8.3 L Total Bilirubin 0.20 AST 156 H ALT 28 Alkaline Phosphatase 155 H Total Creatine Kinase 386 H Troponin I Total Protein 5.4 L Albumin 1.9 L Globulin 3.5 Albumin/Globulin Ratio 0.5 L Triglycerides 0304/19 03/04/19 03/04/19 11:10 13:00 22:40 WBC RBC Hgb Hct MCV MCH MCHC RDW RDW Differential Plt Count MPV Immature Gran % (Auto) Neut % (Auto) Lymph % (Auto) [place] % (Auto) Eos % (Auto) Baso % (Auto) Absolute Neuts (auto) Absolute Lymphs (auto) Total Counted Nucleated RBC % Diff Path Review Platelet Estimate Polychromasia Absolute Retic PT INR D-Dimer Quant (PE/DVT) Cancelled > 20.00 H* Specimen Type Sample Site pH Bicarbonate Actual POC Total CO2 Base Excess O2 Saturation O2 % ABG pCO2 ABG pO2 Sage Test Respiration Rate O2 Delivery Device Liter Flow Minute Volume Vent Mode Tidal Volume POC PEEP Blood Gas Notified Whom Blood Gas Notified Time Sodium Potassium Chloride Carbon Dioxide Anion Gap BUN Creatinine Estim Creat Clear Calc Est GFR (MDRD) Af Amer Est GFR (MDRD) Non-Af BUN/Creatinine Ratio Glucose Calcium Total Bilirubin AST ALT Alkaline Phosphatase Total Creatine Kinase 349 H Troponin I Total Protein Albumin Globulin Albumin/Globulin Ratio Triglycerides 189 06/02/18 06/03/18 06/03/18 23:38 00:10 02:30 WBC RBC Hgb Hct MCV MCH MCHC RDW RDW Differential Plt Count MPV Immature Gran % (Auto) Neut % (Auto) Lymph % (Auto) [place] % (Auto) Eos % (Auto) Baso % (Auto) Absolute Neuts (auto) Absolute Lymphs (auto) Total Counted Nucleated RBC % Diff Path Review Platelet Estimate Polychromasia Absolute Retic PT INR D-Dimer Quant (PE/DVT) Specimen Type ART Sample Site R Radial pH 7.44 Bicarbonate Actual 21.0 L POC Total CO2 22 Base Excess -3 L O2 Saturation 100 H O2 % 50 ABG pCO2 30.9 L ABG pO2 170 H Sage Test POS Respiration Rate 14 O2 Delivery Device Vent Liter Flow Minute Volume 8.00 Vent Mode A-C Tidal Volume 450 POC PEEP 5 Blood Gas Notified Whom [facility] Blood Gas Notified Time 2328 Sodium Potassium Chloride Carbon Dioxide Anion Gap BUN Creatinine Estim Creat Clear Calc Est GFR (MDRD) Af Amer Est GFR (MDRD) Non-Af BUN/Creatinine Ratio Glucose Calcium Total Bilirubin AST ALT Alkaline Phosphatase Total Creatine Kinase Troponin I 0.104 H 0.099 H Total Protein Albumin Globulin Albumin/Globulin Ratio Triglycerides POC Glucose 06/03/18 06/02/18 06/02/18 01:53 22:48 17:28 POC Glucose 240 H 207 H 242 H 06/02/18 06/02/18 11:38 06:49 POC Glucose 221 H 214 H Assessment/Plan Patient was seen and examined independently of Tina Freitas NP. I concur with her above note and findings. Patient was admitted this morning with sepsis secondary to acute cystitis. He was reported to have developed worsening SOB. CXR showed no infiltrate. D-Dimer was elevated and V/Q scan was ordered. Labs reviewed showed CKD and chronic anemia as well as mild Rhadomyolyiss Patient complained of falls and appeared very frail, working with physical therapy. He has been on Bipap intermittently, and has been on oxygen for the most part of day. Will await results of v/Q scan.
[2018-06-02 14:27] LABS: Pathologist Review Reviewed
--- NOTE | 2018-06-02 14:28 | RAD_ITS ---
STUDY: X-RAY CHEST REASON FOR EXAM: Male, 77 years old. Shortness of breath TECHNIQUE: Frontal and lateral views of the chest COMPARISON: 06/02/2018 FINDINGS: There is a moderate-sized right pleural effusion with overlying atelectasis. There is no left-sided effusion. There is linear atelectasis at the left lung base which is likely due to scarring or atelectasis. The lungs are otherwise clear. The heart is normal in size. Again noted are sternotomy wires. RAD/Chest PA and Lateral IMPRESSION: Moderate right pleural effusion with overlying atelectasis. Electronically Signed: Juan Ruiz, at 15:40 EST Tel , Service support ,
--- NOTE | 2018-06-02 16:05 | CASEMGMT ---
Aditya RN CM attempted to see pt several times without success. This RN CM will attempt again tomorrow. SSterinn RN CM
[2018-06-02] MEDS: Furosemide 40 MG/4 ML Vial IV (17:32)
[2018-06-02] MEDS: Tamsulosin HCl 0.4 MG Capsule PO (17:49)
[2018-06-02 17:51] LABS: Bedside Glucose 242 mg/dL (70-110)
--- NOTE | 2018-06-02 21:14 | CT_ITS ---
STUDY: CT CHEST WITHOUT CONTRAST REASON FOR EXAM: Male, 77 years old. Wheezing RADIATION DOSAGE (If Supplied By Facility): CTDIvol = ( 17.50 ) mGy, DLP = ( 498.37 ) mGycm TECHNIQUE: Transaxial imaging was performed without the administration of intravenous contrast material. Coronal and sagittal reformatted images were created. Individualized dose optimization techniques were used for this CT. COMPARISON: None FINDINGS: There are small bilateral pleural effusions with overlying atelectasis. There are no focal infiltrates. There is no pneumothorax. The heart and pericardium are within normal limits. The patient is status post sternotomy and coronary artery bypass. There is a prosthetic aortic valve. There is no thoracic lymphadenopathy. There is no evidence of thoracic aortic aneurysm. Images through the upper abdomen demonstrate no significant abnormality. There are sclerotic osseous lesion is noted in the rib, spine and scapula which are suspicious for metastasis. CT/Chest without Contrast IMPRESSION: Small bilateral pleural effusions with overlying atelectasis. Sclerotic osseous lesions which are suspicious for metastasis. Electronically Signed: Juan Ruiz, at 22:14 EST Tel , Service support ,
--- NOTE | 2018-06-02 21:24 | PCM.HOSP.N ---
Hospitalist Note I was called by nurse about patient at 8:43pm o/a of patient being hypotensive. He has been managed for acute cystitis and sepsis as well as rhabdomyolysis. BP checked in the right arm by nurse was 83/52 and recheck in the left arm was 119/60. His temperature was also noted to be 100.7 Fahrenheit and respiratory rate was 30s. Per discussion with nurse, she was on 2 L of oxygen. On review of patient's vitals, patient's respiratory rate noted to have been In the high 20s and 30s and even going up to the 40s since admission. Initial chest x-ray done showed no acute cardiopulmonary process but a repeat chest x-ray done after hydration showed a moderate right-sided pleural effusion. VQ scan done to rule out a PE on account of elevated d-dimer on admission was of low quality and low probability for PE. At time of my review by patient's bedside, patient heart rate was in the 120s and he was breathing as high as high 40s and 50s. He had been transitioned to BiPAP just before I arrived and was still tachypneic. He had been on oxygen since admission. He was alert and able to communicate. Patient said he felt terrible and was using accessory muscles of respiration and was obviously very tachypneic. He had reduced breath sounds in his right mid and lower lung jordan and coarse crackles in the left lower lung field. ABG done at 5:57 AM showed PO2 of 66 and PCO2 of 34.3 with pH of 7.41. Patient had received fluids on admission but this was discontinued on account of having crackles in his lungs and he received a dose of Lasix. Decision made to give patient a bolus of 500 cc of normal saline. We will continue IV fluids and 120 cc/h. 2D echo done today showed EF of 65% with stage I diastolic dysfunction and stable appearing bioprosthetic aortic valve apparatus and RVSP of 40 mmHg. At time of review, he was saturating at 82% on 5L of oxygen after BIPAP was taken off briefly since he wasnt tolerating it. We will transfer the patient emergently to ICU on account of worsening respiratory status. STat CT of the chest obtained showed small bilateral pleural effusions with overlying atelectasis and no focal infiltrates, and no pneumothorax. Patient counseled about CODE STATUS, and despite his history of metastatic prostate cancer, patient insists that he wants to be intubated if needed. Will broaden antibiotics to IV vancomycin and DC ceftriaxone. Blood cultures are pending and urine cultures also pending., Influenza screen was negative. Patient's RR went up to the high 40s and 50s in ICU, and he was still not tolerating BIPAP. Decision was therefore made to emergently intubate patient o/a of acute hypoxic respiratory failure. Patient was sedated with 20mg of etomidate, and intubated with size 7.5mm ET tube, He was successfully intubated via direct laryngoscope after one attempt. Patient to be sedated with propofol. CXR post intubation ordered to check for placement of ET tube. Of note, patient subsequently developed Afib with RVR, with HR going up to the 170s-190s. EKG done showed Afib with RVR and HR of 179, as well as possible inferolateral ischemia. Patient started on cardizem drip; patient on eliquis at home, but hasnt received any since admission; will start heparin drip; eliquis to be resumed if it is determined there is no need for cardiac intervention. Troponins ordered. Cardiology consult placed. Code Visit Procedures: 92804 Insert Emergency Airway
--- NOTE | 2018-06-02 21:28 | NURSING ---
Report called to [facility] for pt transfer. Pt to CT of chest and then will go to ICU.
--- NOTE | 2018-06-02 21:35 | NURSING ---
This nurse called POA/son Goyo at this time to update him concerning pt transfer to ICU bed [address] scan of chest.
[2018-06-02] MEDS: Etomidate 20 MG/10 ML Vial IV (22:11)
--- NOTE | 2018-06-02 22:20 | NURSING ---
2149: patient arrived to ICU 7 from PCU accompanied by PCU it risk advisor and Rona respiratory therapist on bipap 2204: Dr. Wilson notified of patients arrival to ICU and patients' need for evaluation for intubation by phone 2207: Dr. Wilson to the bedside to evaluate patient and intubate, Dr. Wilson explained procedure to patient and patient in agreeance of intubation 2210: etomidate 20mg IV x1 given by Chloé Feldman RN 2: patient intubated with 7.5 ETT, 23cm at the lip, color change noted and bilateral breath sounds present 2220: #16 yakut OG placed by Chapin Graves, RN
[2018-06-02] MEDS: Propofol 10MG/Ml 1,000 MG/100 ML Bottle 4.596 MG CONT INF (22:22)
--- NOTE | 2018-06-02 22:26 | RAD_ITS ---
STUDY: X-RAY CHEST REASON FOR EXAM: Male, 77 years old. Endotracheal tube placement TECHNIQUE: AP portable COMPARISON: June 02, 2018 3:30 PM FINDINGS: There is scarring in the left lower lobe.. There is also mild basilar atelectasis There is no demonstrated pleural abnormality. Normal size heart. Normal mediastinum and samuel. Normal visualized pulmonary arteries. Mildly calcified tortuous aortic arch and descending thoracic aorta. Postop changes post median sternotomy and valve replacement Normal visualized thoracic spine. Normal visualized ribs, clavicles, and shoulders. Endotracheal tube is present with tip 4.2 cm proximal to nicolette There is no demonstrated abnormality of the visualized soft tissue structures of the upper abdomen. Nasogastric tube is present with tip in distal gastric body or antrum RAD/Chest 1 View (Portable) IMPRESSION: Mild left basilar atelectasis status post endotracheal tube placement Electronically Signed: Norbert Snyder MD at 23:18 EST , Service support ,
[2018-06-02 22:55] LABS: Bedside Glucose 207 mg/dL (70-110)
[2018-06-02 23:09] LABS: CPK Total, Creatine Kinase 349 U/L (39-308); Triglycerides 189 mg/dL
[2018-06-02 23:40] LABS: Allen Test POS; Base Excess -3 mmol/L (-2 to +2); Blood Gas Specimen Type ART; FI02 50; Mode A-C; O2 Delivery Device Vent; PEEP 5; PO2 170 mmHG (75-100); RR 14; SITE R Radial; SO2 100 % (95-99); Time Given 2328; Total Carbon Dioxide 22 mmol/L; Vt 450; pCO2 30.9 mmHg (35-45); pH 7.44 (7.35-7.45)
[2018-06-03] VITALS (48 sets, daily range): BP systolic 97–127; BP diastolic 43–103; PULSE 83–191; RESP 14–30; TEMP 37–39.2; O2SAT 95–100
[2018-06-03] MEDS: fentaNYL drip 100 ML 2.5 MCG IV ×2 (00:17→18:27)
[2018-06-03] MEDS: HEPARIN/D5w 25,000 UNITS 25,000 UNITS/250 ML IV.SOLN. 11 UNITS IV (01:00)
[2018-06-03] MEDS: 0.9% NaCl IVPB Med Flush (250 mL) 15 ML IV ×2 (01:27→02:30)
[2018-06-03] MEDS: Atorvastatin Calcium 10 MG Tablet PO (01:34)
[2018-06-03] MEDS: 0.9% NaCl Peripheral Flush Adult/Peds IV ×4 (01:34→13:12)
[2018-06-03] MEDS: Chlorhexidine 15 ML PO ×3 (01:46→22:51)
[2018-06-03] MEDS: Insulin Lispro 100 UNIT/ML INSULN.PEN SC ×4 (01:55→17:25)
[2018-06-03 02:01] LABS: Bedside Glucose 240 mg/dL (70-110)
[2018-06-03] MEDS: Vancomycin IV 1,000 MG/200 ML BAG 200 MG IV (02:31)
--- NOTE | 2018-06-03 04:32 | PCM.RX.CS ---
Consult Pharmacy has been consulted to manage selected antiobiotic: Vancomycin Type of Consult: New start Suspected Infection: Sepsis Labs: Sodium 144 mmol/L (136-145) 06/02/18 11:10 Potassium 4.1 mmol/L (3.5-5.1) 06/02/18 11:10 Chloride 111 mmol/L (98-107) H 06/02/18 11:10 Carbon Dioxide 20.0 mmol/L (21.0-32.0) L 06/02/18 11:10 Anion Gap 13 (5-15) 06/02/18 11:10 BUN 70 mg/dL (7-18) H 06/02/18 11:10 Creatinine 1.86 mg/dL (0.70-1.30) H 06/02/18 11:10 Est GFR (MDRD) Af Amer 45 mL/min (>60) L 06/02/18 11:10 Est GFR (MDRD) Non-Af 38 mL/min (>60) L 06/02/18 11:10 BUN/Creatinine Ratio 37.6 RATIO (10-20) H 06/02/18 11:10 Glucose 231 mg/dL (74-106) H 06/02/18 11:10 Microbiology: Microbiology 06/02/18 02:15 Mucosa - Nose Influenza Types A,B Direct FA (CHELE) - Final Weight used for dosin.3 kg Estimated Creatinine Clearance: 29.54 Goal Trough: 15-20 mcg/mL Pharmacy Plan for Drug Dosing: Pharmacy Service will continue to monitor and adjust dosing as required. Medications Vancomycin HCl (Vancomycin) 1,000 mg in 200 mls @ 200 mls/hr IV Q24H GABRIELLE Discontinued Medications Vancomycin HCl (Vancomycin) 1,000 mg in 200 mls @ 200 mls/hr IV X1 ONE Stop: 06/03/18 02:59 Last Admin: 06/03/18 02:31 Dose: 200 mls/hr Follow-Up Labs: Trough Vancomycin Labs to be done on [date and time ordered]: 06/05 @ 0200
[2018-06-03] MEDS: CHLORHEXIDINE GLUC 2% CLOTH 1 EACH TOWELETTE TOPICAL (06:25)
[2018-06-03 06:41] LABS: Absolute Lymphocyte Count 2.19 X10^3/ul (0.83-4.51); Absolute Neutrophil Count 4.9 X10^3/uL (2.0-7.7); Basophil# 0.04 X10^3/uL; Basophil% 0.5 % (0-1); Eosinophil# 0.01 X10^3/uL; Eosinophils% 0.1 % (0-5); Hematocrit 24.7 % (40-54); Hemoglobin 7.7 g/dl (13.0-16.5); Lymphocyte # 2.19 X10^3/ul (4.0); Lymphocyte % 28.1 % (19-41); Mean Corp Hgb Conc 31.2 g/gl (32-36); Mean Corpuscular Hgb 29.5 pg (27.0-32.0); Mean Corpuscular Volume 94.6 fL (80-94); Mean Platelet Vol. 11.1 fl (6.2-12.0); Monocyte# 0.51 X10^3/uL; Monocyte% 6.6 % (0-10); Neutrophil # 4.87 X10^3/uL (2.7-7.7); Neutrophil % 62.6 % (47-70); Platelet Count 80 K/mm3 (150-450); RBC Distribution Width CV 15.2 % (11.6-14.6); RBC Distribution Width SD 51.6 fl (35.1-43.9); Red Blood Count 2.61 M/mm3 (4.6-6.2); White Blood Count 7.8 K/mm3 (4.4-11.0)
[2018-06-03 06:42] LABS: Anion Gap 13 (5-15); BUN 84 mg/dL (7-18); BUN/Creat Ratio 43.5 RATIO (10-20); Calcium,Total 8.3 mg/dL (8.5-10.1); Chloride 112 mmol/L (98-107); Creatinine, Serum 1.93 mg/dL (0.70-1.30); Differential Indicated SCAN CRITERIA MET; EST Glomerular Filtration Rate 36 mL/min (>60); Est Glom Filt Rate - Afr Amer 43 mL/min (>60); Estimated Creatinine Clearance 28.47 ml/min; Glucose 284 mg/dL (74-106); POSITIVE COUNT YES; POSITIVE DIFFERENTIAL NO; POSITIVE MORPHOLOGY YES; Potassium 4.1 mmol/L (3.5-5.1); Sodium Level 146 mmol/L (136-145)
[2018-06-03 06:43] LABS: Absolute Nucleated RBC Count 0.22 10^3/uL (0-5); NRBC Flagged by Analyzer 2.9 % (0-5)
--- NOTE | 2018-06-03 07:22 | PCM.CON.CC ---
Reason for Consult Date of Consultation: 06/03/18 Reason for Consultation: Acute respiratory failure History of Present Illness: The patient is a 77-year-old male, with a history as outlined below, who initially presented to the emergency department on June 02 with altered mentation. He has known metastatic prostate cancer with an overall poor prognosis. The patient's medical history also includes paroxysmal atrial fibrillation, history of aortic valve replacement, hypertension, hyperlipidemia and diabetes mellitus. On presentation to the emergency department, the patient was initially noted to be afebrile, tachycardic and hemodynamically stable. Laboratory evaluation revealed no evidence of a leukocytosis. The patient had evidence of a normocytic anemia along with thrombocytopenia. INR was noted to be 2.4. D-dimer was elevated to greater than 20. Arterial blood gas on 2 L/min revealed a pH of 7.45 with a PCO2 of 34 and PO2 of 70. Chemistry profile revealed evidence of acute kidney injury with a creatinine of 1.97. AST was increased to 197. Alkaline phosphatase was increased to 187. Troponin was increased to 0.074. Urinalysis revealed leukocyte esterase, 10-25 white blood cells and 2+ urine bacteria. CT head revealed no evidence of acute intracranial hemorrhage or infarction. There were scattered, chronic appearing hypodensities in the cerebral white matter. Plain film chest x-ray initially showed no acute cardiopulmonary process. The patient received supplemental IV fluid hydration and was started on antibiotics for a presumptive urinary tract infection. He was subsequently admitted to the progressive care unit for ongoing management. When evaluated in the afternoon on June 02, the patient was noted to be alert and oriented. He was on ceftriaxone for acute cystitis. However, during the late evening hours of June 02, the patient was noted to have become hypotensive. He was also noted to be in atrial fibrillation with a rapid ventricular rate. He was notably tachypneic and was noted to be in felipe respiratory distress. Attempts to utilize noninvasive positive pressure ventilation failed, as the patient was unable to tolerate therapy. He was transferred emergently to the medical intensive care unit, where a chest CT without contrast was obtained and revealed small bilateral pleural effusions and no focal infiltrates. Following a discussion with the patient and due to his tenuous respiratory status, the patient was intubated. His antibiotics were broadened to include vancomycin and Zosyn. The patient received an amiodarone bolus and was started on a continuous infusion. Past Medical History Past Medical History (Chronic Problems): Chronic Problems (Last Updated 06/02/18 @ 03:12 by Sally Cm MD) Renal insufficiency (Chronic) Prostate cancer metastatic to bone (Chronic) Stage III chronic kidney disease (Chronic) Dyslipidemia (Chronic) Paroxysmal atrial fibrillation (Chronic) History of aortic valve replacement with bioprosthetic valve (Chronic ~11/12/16) Trifecta GT Tissue Heart Valve Serial # [id number] Model TFGT- 25A @ [facility] BPH with urinary obstruction (Chronic) Hypertension (Chronic) Medical History: Medical History (Last Updated 06/02/18 @ 03:12 by Sally Cm MD) Dyslipidemia (Chronic) E78.5 Paroxysmal atrial fibrillation (Chronic) I48.0 BPH with urinary obstruction (Chronic) N40.1, N13.8 Hypertension (Chronic) I10 Arthritis M19.90 GERD (gastroesophageal reflux disease) K21.9 Macrocytic anemia D53.9 Mass of bladder N32.89 Type 2 diabetes mellitus without complications E11.9 Allergies albuterol Allergy (Verified 06/02/18 01:14) Unknown clonazepam Allergy (Verified 06/02/18 01:14) Unknown ibuprofen Allergy (Verified 06/02/18 01:14) Unknown ipratropium Allergy (Verified 06/02/18 01:14) Unknown aspirin Adverse Reaction (Verified 06/02/18 01:14) Vomiting pt states he vomits blood Home Medications: Ambulatory Orders Medication Instructions Recorded ALPRAZolam [Xanax] 0.5 mg PO 4X/DAY PRN 10/24/15 Ascorbic Acid [Vitamin C] 1,000 mg PO DAILY 10/24/15 Fosinopril Sodium [Monopril] 5 mg PO DAILY 10/24/15 Garlic 1 mg PO DAILY 10/24/15 Metformin HCl [Glucophage] 1,000 mg PO DAILY 10/24/15 Multivitamin [Daily Multiple 1 ea PO DAILY 10/24/15 Vitamin] [place]-3 Fatty Acids/Fish Oil 1,000 mg PO DAILY 10/24/15 [[place] 3 1,000 mg Softgel] Vitamin B Complex 1 ea PO DAILY 10/24/15 Vitamin E 1,000 unit PO DAILY 10/24/15 Cyanocobalamin (Vitamin B-12) 5,000 mcg SL BID 09/18/17 [Vitamin B-12] Methylsulfonylmethane [MSM] 1,500 mg PO BID 09/18/17 Niacinamide 500 mg PO DAILY 09/18/17 Pyridoxine HCl [Vitamin B6] 100 mg PO BID 09/18/17 Sodium Chloride 1 gm PO DAILY 09/18/17 Ubidecarenone [Co Q-10] 200 mg PO DAILY 09/18/17 Vanadyl Sulfate 10 mg PO DAILY 09/18/17 furosemide 40 mg tablet 40 mg PO QDAY #90 tab 09/25/17 simvastatin 40 mg tablet 20 mg PO QHS 09/25/17 Cholecalciferol (VIT D3) [Vitamin 1,000 unit PO DAILY 10/29/17 D3] Ferrous Sulfate [Iron] 325 mg PO DAILY 10/29/17 Apixaban [Eliquis] 5 mg PO BID 03/14/18 Duloxetine Hcl [Cymbalta] 30 mg pe PO DAILY 03/14/18 Acetaminophen [Tylenol Extra 500 mg PO Q4H PRN PRN #20 tablet 03/19/18 Strength] Lisinopril [Zestril] mg PO DAILY 03/19/18 Metoprolol Tartrate [Lopressor 50 mg PO BID 06/02/18 (beta lisa)] Surgical History: Surgical History (Last Reviewed 09/25/17 @ 16:11 by Lucas Glasgow MD) History of aortic valve replacement with bioprosthetic valve (Chronic) Onset Date: ~11/12/16 Z95.3 Trifecta GT Tissue Heart Valve Serial # [id number] Model TFGT- 25A @ [facility] Surgical History: cataract - bilateral, - - aortic valve replacement October 2016, 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 Lives: Alone Smoking Status: Former smoker Alcohol: None, Rare - *Family History Sibling Family History: Family History (Last Reviewed 09/25/17 @ 16:11 by Lucas Glasgow MD) Sister Heart disease Brother Cancer History Items: Heart Disease Maternal Family History: Family History (Last Reviewed 09/25/17 @ 16:11 by Lucas Glasgow MD) Sister Heart disease Brother Cancer History Items: No pertinent history Paternal Family History: Family History (Last Reviewed 09/25/17 @ 16:11 by Lucas Glasgow MD) Sister Heart disease Brother Cancer History Items: No pertinent history Review of Systems Unable to obtain accurate/complete ROS d/t: Due to current intubation and mechanical ventilation status. Patient Problems: Active and Suspected Problems (Last Updated 06/02/18 @ 03:12 by Sally Cm MD) Atrial fibrillation and flutter (Acute) Fever (Acute) Anemia (Acute) Thrombocytopenia (Acute) Objective: The patient's most recent lab work, culture data and imaging studies have all been personally reviewed. Blood and urine cultures are currently pending. Rapid influenza screen was negative. Respiratory viral panel is pending. Sputum culture is pending. Surface echocardiogram revealed normal LV size and function with an ejection fraction of 65% and stage I diastolic dysfunction. Pulmonary artery systolic pressure was estimated to be 40 mmHg. - Physical Exam General: - - Currently intubated, sedated and mechanically ventilated. HEENT: Atraumatic, PERRLA, Normocephalic Oral: Moist Mucosa, - - Endotracheal and OG tubes currently in place Neck: Supple, No Nodes, Trachea Midline Lungs: No rhonchi, No wheeze, No rales, Diminished Cardiovascular: Normal S1, Normal S2, Irregular Rate, Murmur, Tachycardic Abdomen: Bowel Sounds Present, Soft, Non Tender Extremities: No clubbing, No cyanosis, No edema Skin: No breakdown Musculoskeletal: No Tenderness to Palpation of Joints or Extremities Lymphatic: No Cervical, Supraclavicular, or Inguinal Adenopathy Neurological: - - No focal neurological deficits. Patient is currently sedated. Vital Signs Temp Pulse Resp BP Pulse Ox 37.0 C 120 H 15 100/53 L 100 06/03/18 06:00 06/03/18 06:00 06/03/18 06:00 06/03/18 06:00 06/03/18 06:00 Oxygen Flow Rate (L/min) 2 Oxygen Delivery Method Mechanical Ventilator Weight: 167 lb 15.876 oz Body Mass Index (BMI) 27.1 Finger Stick Blood Glucose 95 Intake and Output for Last 24 Hours 06/01/18 06/02/18 06/03/18 23:59 23:59 23:59 Intake Total 1435 / 1435 1211 / 1211 Output Total 500 / 500 650 / 650 Balance 935 / 935 561 / 561 Microbiology Past 72 Hours 06/02/18 02:15 Influenza Types A,B Direct FA (CHELE) - Final Mucosa - Nose Laboratory Tests Past 24 Hrs 06/02/18 06/02/18 06/02/18 01:10 07:00 07:00 WBC 8.7 RBC 2.75 L Hgb 8.1 L Hct 25.8 L MCV 93.8 MCH 29.5 MCHC 31.4 L RDW 14.9 H RDW Differential 50.9 H Plt Count 102 L MPV 10.8 Immature Gran % (Auto) 1.300 H Neut % (Auto) 69.4 Lymph % (Auto) 18.0 L Clark % (Auto) 11.1 H Eos % (Auto) 0.1 Baso % (Auto) 0.1 Absolute Neuts (auto) 6.0 Absolute Lymphs (auto) 1.57 Total Counted Not Reportable Nucleated RBC % Differential Comment Diff Path Review Reviewed Platelet Estimate Polychromasia Absolute Retic PT INR APTT D-Dimer Quant (PE/DVT) Specimen Type Sample Site pH Bicarbonate Actual POC Total CO2 Base Excess O2 Saturation O2 % ABG pCO2 ABG pO2 Sage Test Respiration Rate O2 Delivery Device Minute Volume Vent Mode Tidal Volume POC PEEP Blood Gas Notified Whom Blood Gas Notified Time Sodium Potassium Chloride Carbon Dioxide Anion Gap BUN Creatinine Estim Creat Clear Calc Est GFR (MDRD) Af Amer Est GFR (MDRD) Non-Af BUN/Creatinine Ratio Glucose Calcium Total Bilirubin AST ALT Alkaline Phosphatase Total Creatine Kinase Troponin I 0.073 H Total Protein Albumin Globulin Albumin/Globulin Ratio Triglycerides 06/02/18 06/02/18 06/02/18 07:00 11:10 11:10 WBC 8.8 RBC 2.69 L Hgb 7.9 L Hct 25.0 L MCV 92.9 MCH 29.4 MCHC 31.6 L RDW 15.0 H RDW Differential 51.0 H Plt Count 93 L MPV 10.7 Immature Gran % (Auto) 1.400 H Neut % (Auto) 66.4 Lymph % (Auto) 21.6 Clark % (Auto) 10.3 H Eos % (Auto) 0.1 Baso % (Auto) 0.2 Absolute Neuts (auto) 5.9 Absolute Lymphs (auto) 1.90 Total Counted Not Reportable Nucleated RBC % 1.6 Differential Comment Diff Path Review May foll Platelet Estimate MOD DEC Polychromasia RARE Absolute Retic 0.15 PT 23.5 H INR 2.1 APTT D-Dimer Quant (PE/DVT) Specimen Type Sample Site pH Bicarbonate Actual POC Total CO2 Base Excess O2 Saturation O2 % ABG pCO2 ABG pO2 Sage Test Respiration Rate O2 Delivery Device Minute Volume Vent Mode Tidal Volume POC PEEP Blood Gas Notified Whom Blood Gas Notified Time Sodium 141 Potassium 4.0 Chloride 111 H Carbon Dioxide 21.0 Anion Gap 9 BUN 68 H Creatinine 1.75 H Estim Creat Clear Calc 31.39 Est GFR (MDRD) Af Amer 49 L Est GFR (MDRD) Non-Af 40 L BUN/Creatinine Ratio 38.9 H Glucose 224 H Calcium 8.2 L Total Bilirubin AST ALT Alkaline Phosphatase Total Creatine Kinase Troponin I Total Protein Albumin Globulin Albumin/Globulin Ratio Triglycerides 06/02/18 06/02/18 06/02/18 11:10 11:10 13:00 WBC RBC Hgb Hct MCV MCH MCHC RDW RDW Differential Plt Count MPV Immature Gran % (Auto) Neut % (Auto) Lymph % (Auto) Clark % (Auto) Eos % (Auto) Baso % (Auto) Absolute Neuts (auto) Absolute Lymphs (auto) Total Counted Nucleated RBC % Differential Comment Diff Path Review Platelet Estimate Polychromasia Absolute Retic PT INR APTT D-Dimer Quant (PE/DVT) Cancelled > 20.00 H* Specimen Type Sample Site pH Bicarbonate Actual POC Total CO2 Base Excess O2 Saturation O2 % ABG pCO2 ABG pO2 Sage Test Respiration Rate O2 Delivery Device Minute Volume Vent Mode Tidal Volume POC PEEP Blood Gas Notified Whom Blood Gas Notified Time Sodium 144 Potassium 4.1 Chloride 111 H Carbon Dioxide 20.0 L Anion Gap 13 BUN 70 H Creatinine 1.86 H Estim Creat Clear Calc 29.54 Est GFR (MDRD) Af Amer 45 L Est GFR (MDRD) Non-Af 38 L BUN/Creatinine Ratio 37.6 H Glucose 231 H Calcium 8.3 L Total Bilirubin 0.20 AST 156 H ALT 28 Alkaline Phosphatase 155 H Total Creatine Kinase 386 H Troponin I Total Protein 5.4 L Albumin 1.9 L Globulin 3.5 Albumin/Globulin Ratio 0.5 L Triglycerides 06/02/18 06/02/18 06/03/18 22:40 23:38 00:10 WBC RBC Hgb Hct MCV MCH MCHC RDW RDW Differential Plt Count MPV Immature Gran % (Auto) Neut % (Auto) Lymph % (Auto) Clark % (Auto) Eos % (Auto) Baso % (Auto) Absolute Neuts (auto) Absolute Lymphs (auto) Total Counted Nucleated RBC % Differential Comment Diff Path Review Platelet Estimate Polychromasia Absolute Retic PT INR APTT D-Dimer Quant (PE/DVT) Specimen Type ART Sample Site R Radial pH 7.44 Bicarbonate Actual 21.0 L POC Total CO2 22 Base Excess -3 L O2 Saturation 100 H O2 % 50 ABG pCO2 30.9 L ABG pO2 170 H Sage Test POS Respiration Rate 14 O2 Delivery Device Vent Minute Volume 8.00 Vent Mode A-C Tidal Volume 450 POC PEEP 5 Blood Gas Notified Whom [facility] Blood Gas Notified Time 2328 Sodium Potassium Chloride Carbon Dioxide Anion Gap BUN Creatinine Estim Creat Clear Calc Est GFR (MDRD) Af Amer Est GFR (MDRD) Non-Af BUN/Creatinine Ratio Glucose Calcium Total Bilirubin AST ALT Alkaline Phosphatase Total Creatine Kinase 349 H Troponin I 0.104 H Total Protein Albumin Globulin Albumin/Globulin Ratio Triglycerides 189 06/03/18 06/03/18 06/03/18 02:30 06:15 06:15 WBC 7.8 RBC 2.61 L Hgb 7.7 L Hct 24.7 L MCV 94.6 H MCH 29.5 MCHC 31.2 L RDW 15.2 H RDW Differential 51.6 H Plt Count 80 L MPV 11.1 Immature Gran % (Auto) 2.100 H Neut % (Auto) 62.6 Lymph % (Auto) 28.1 Clark % (Auto) 6.6 Eos % (Auto) 0.1 Baso % (Auto) 0.5 Absolute Neuts (auto) 4.9 Absolute Lymphs (auto) 2.19 Total Counted Not Reportable Nucleated RBC % 2.9 Differential Comment Diff Path Review May foll Platelet Estimate Polychromasia Absolute Retic 0.22 PT INR APTT D-Dimer Quant (PE/DVT) Specimen Type Sample Site pH Bicarbonate Actual POC Total CO2 Base Excess O2 Saturation O2 % ABG pCO2 ABG pO2 Sage Test Respiration Rate O2 Delivery Device Minute Volume Vent Mode Tidal Volume POC PEEP Blood Gas Notified Whom Blood Gas Notified Time Sodium 146 H Potassium 4.1 Chloride 112 H Carbon Dioxide 21.0 Anion Gap 13 BUN 84 H Creatinine 1.93 H Estim Creat Clear Calc 28.47 Est GFR (MDRD) Af Amer 43 L Est GFR (MDRD) Non-Af 36 L BUN/Creatinine Ratio 43.5 H Glucose 284 H Calcium 8.3 L Total Bilirubin AST ALT Alkaline Phosphatase Total Creatine Kinase Troponin I 0.099 H Total Protein Albumin Globulin Albumin/Globulin Ratio Triglycerides 06/03/18 06/03/18 06:15 06:55 WBC RBC Hgb Hct MCV MCH MCHC RDW RDW Differential Plt Count MPV Immature Gran % (Auto) Neut % (Auto) Lymph % (Auto) Clark % (Auto) Eos % (Auto) Baso % (Auto) Absolute Neuts (auto) Absolute Lymphs (auto) Total Counted Nucleated RBC % Differential Comment Diff Path Review Platelet Estimate Polychromasia Absolute Retic PT INR APTT Pending D-Dimer Quant (PE/DVT) Specimen Type Sample Site pH Bicarbonate Actual POC Total CO2 Base Excess O2 Saturation O2 % ABG pCO2 ABG pO2 Sage Test Respiration Rate O2 Delivery Device Minute Volume Vent Mode Tidal Volume POC PEEP Blood Gas Notified Whom Blood Gas Notified Time Sodium Potassium Chloride Carbon Dioxide Anion Gap BUN Creatinine Estim Creat Clear Calc Est GFR (MDRD) Af Amer Est GFR (MDRD) Non-Af BUN/Creatinine Ratio Glucose Calcium Total Bilirubin AST ALT Alkaline Phosphatase Total Creatine Kinase Troponin I 0.084 H Total Protein Albumin Globulin Albumin/Globulin Ratio Triglycerides POC Glucose 06/03/18 06/02/18 06/02/18 01:53 22:48 17:28 POC Glucose 240 H 207 H 242 H 06/02/18 11:38 POC Glucose 221 H Clinical Impression(s) from Imaging Studies Brain CT 06/02/18 01:25 IMPRESSION: No acute findings. Individualized dose optimization techniques were used for this CT. at 0159 Reported and signed by: Geoff Joaquin MD Electronically Signed: Geoff Joaquin, at 1:58 EST Tel , Service support , Cervical Spine CT 06/02/18 01:25 IMPRESSION: No fracture or dislocation of the cervical spine. Individualized dose optimization techniques were used for this CT. at 0206 Reported and signed by: Geoff Joaquin MD Electronically Signed: Geoff Joaquin, at 2:05 EST Tel , Service support , Chest X-Ray 06/02/18 01:35 IMPRESSION: Low lung volumes with resultant hypoventilatory changes. No definite pneumonia or edema. Interval sternotomy probably for heart valve replacement. at 0154 Reported and signed by: Geoff Joaquin MD Electronically Signed: Geoff Joaquin, at 1:53 EST Tel , Service support , Lung Scan-VQ NM 06/02/18 13:55 IMPRESSION: Low quality VQ scan, most consistent with low probability of pulmonary embolism. Electronically Signed: Kenny Greene MD at 16:31 EST , Service support , Chest X-Ray 06/02/18 14:28 IMPRESSION: Moderate right pleural effusion with overlying atelectasis. Electronically Signed: Juan Ruiz, at 15:40 EST Tel , Service support , Chest CT 06/02/18 21:14 IMPRESSION: Small bilateral pleural effusions with overlying atelectasis. Sclerotic osseous lesions which are suspicious for metastasis. Electronically Signed: Juan Ruiz, at 22:14 EST Tel , Service support , Chest X-Ray 06/02/18 22:26 IMPRESSION: Mild left basilar atelectasis status post endotracheal tube placement Electronically Signed: Norbert Snyder MD at 23:18 EST , Service support , Assessment/Plan Active and Suspected Problems (Last Updated 06/02/18 @ 03:12 by Sally Cm MD) Atrial fibrillation and flutter (Acute) Fever (Acute) Anemia (Acute) Thrombocytopenia (Acute) RECOMMENDATIONS: 1. Continue amiodarone and await cardiology input 2. Discontinue IV Solu-Medrol 3. Wean FiO2 to maintain oxygen saturations at or above 90%. 4. Continue heparin drip for now. 5. Continue Zosyn. Vancomycin can be discontinued from my perspective. 6. Start tube feeds. 7. Start Protonix for GI prophylaxis 8. Check stool for occult blood. 9. Transfused 2 units packed red blood cells. Check H&H posttransfusion. IMPRESSIONS: 1. Acute hypoxemic respiratory failure The exact etiology for the patient's clinical decompensation is unclear. However, the patient was noted to be tachycardic at the time when he was initially beginning to decompensate. It is unclear whether this was atrial fibrillation or a sinus tachycardia. Given that the patient has paroxysmal atrial fibrillation and underlying valvular heart disease, it is possible that his decompensation may have been heart rate related. In addition, increased metabolic demands from the patient's sepsis and fevers also likely contributed. He is chronically anticoagulated with Eliquis on an outpatient basis. Therefore, I am not certain as to why there is so much concern for pulmonary embolism. The patient's CT chest obtained overnight only revealed evidence of small bilateral pleural effusions without focal infiltrates. His FiO2 was able to be quickly weaned. At this time, we will plan to continue to wean the patient as tolerated. Tube feeds will be initiated today. Continue fentanyl and propofol for sedation. 2. Severe sepsis secondary to presumptive cystitis The patient did spike a high-grade fever overnight. He was subsequently broadened from an antibiotic perspective. MRSA screen was found to be negative. Therefore, vancomycin will be discontinued. Will await pending culture results. 3. Paroxysmal atrial fibrillation with RVR/history of aortic valve replacement Cardiology has been consulted to assist with management. The patient is currently on an amiodarone infusion. Will await additional recommendations/input. 4. Metastatic prostate cancer/anemia/chronic kidney disease/hypertension/hyperlipidemia/depression/generalized deconditioning and debility Complicates care, management, recovery and prognosis. Likely okay to continue home medications. Physical therapy to once again work with patient once medically stabilized. Recommend formal goals of care discussion with the patient and his family. TIME: 40 minutes of critical care time, independent of procedures, was spent addressing the patient's acute hypoxemic respiratory failure, severe sepsis, paroxysmal atrial fibrillation with a rapid ventricular rate, metastatic prostate cancer, review of all data and collaboration with the care team. ([id number]) Code Visit [id number]: [id number] Critical care first hour
--- NOTE | 2018-06-03 07:35 | CON.PCM_ITS ---
Reason for Consult Date of Consultation: 06/03/18 Reason for Consultation: Acute respiratory failure History of Present Illness: The patient is a 77-year-old male, with a history as outlined below, who initially presented to the emergency department on June 02 with altered mentation. He has known metastatic prostate cancer with an overall poor prognosis. The patient's medical history also includes paroxysmal atrial fibrillation, history of aortic valve replacement, hypertension, hyperlipidemia and diabetes mellitus. On presentation to the emergency department, the patient was initially noted to be afebrile, tachycardic and hemodynamically stable. Laboratory evaluation revealed no evidence of a leukocytosis. The patient had evidence of a normocytic anemia along with thrombocytopenia. INR was noted to be 2.4. D- dimer was elevated to greater than 20. Arterial blood gas on 2 L/min revealed a pH of 7.45 with a PCO2 of 34 and PO2 of 70. Chemistry profile revealed evidence of acute kidney injury with a creatinine of 1.97. AST was increased to 197. Alkaline phosphatase was increased to 187. Troponin was increased to 0.074. Urinalysis revealed leukocyte esterase, 10-25 white blood cells and 2+ urine bacteria. CT head revealed no evidence of acute intracranial hemorrhage or infarction. There were scattered, chronic appearing hypodensities in the cerebral white matter. Plain film chest x-ray initially showed no acute cardiopulmonary process. The patient received supplemental IV fluid hydration and was started on antibiotics for a presumptive urinary tract infection. He was subsequently admitted to the progressive care unit for ongoing management. When evaluated in the afternoon on June 02, the patient was noted to be alert and oriented. He was on ceftriaxone for acute cystitis. However, during the late evening hours of June 02, the patient was noted to have become hypotensive. He was also noted to be in atrial fibrillation with a rapid ventricular rate. He was notably tachypneic and was noted to be in felipe respiratory distress. Attempts to utilize noninvasive positive pressure ventilation failed, as the patient was unable to tolerate therapy. He was transferred emergently to the medical intensive care unit, where a chest CT without contrast was obtained and revealed small bilateral pleural effusions and no focal infiltrates. Following a discussion with the patient and due to his tenuous respiratory status, the patient was intubated. His antibiotics were broadened to include vancomycin and Zosyn. The patient received an amiodarone bolus and was started on a continuous infusion. Past Medical History Past Medical History (Chronic Problems): Chronic Problems (Last Updated 06/02/18 @ 03:12 by Sally Cm MD) Renal insufficiency (Chronic) Prostate cancer metastatic to bone (Chronic) Stage III chronic kidney disease (Chronic) Dyslipidemia (Chronic) Paroxysmal atrial fibrillation (Chronic) History of aortic valve replacement with bioprosthetic valve (Chronic ~11/12/16) Trifecta GT Tissue Heart Valve Serial # [id number] Model [id number] [id number] @ [facility] BPH with urinary obstruction (Chronic) Hypertension (Chronic) Medical History: Medical History (Last Updated 06/02/18 @ 03:12 by Sally Cm MD) Dyslipidemia (Chronic) E78.5 Paroxysmal atrial fibrillation (Chronic) I48.0 BPH with urinary obstruction (Chronic) N40.1, N13.8 Hypertension (Chronic) I10 Arthritis M19.90 GERD (gastroesophageal reflux disease) K21.9 Macrocytic anemia D53.9 Mass of bladder N32.89 Type 2 diabetes mellitus without complications E11.9 Allergies albuterol Allergy (Verified 06/02/18 01:14) Unknown clonazepam Allergy (Verified 06/02/18 01:14) Unknown ibuprofen Allergy (Verified 06/02/18 01:14) Unknown ipratropium Allergy (Verified 06/02/18 01:14) Unknown aspirin Adverse Reaction (Verified 06/02/18 01:14) Vomiting pt states he vomits blood Home Medications: Ambulatory Orders Medication Instructions Recorded ALPRAZolam [Xanax] 0.5 mg PO 4X/DAY PRN 10/24/15 Ascorbic Acid [Vitamin C] 1,000 mg PO DAILY 10/24/15 Fosinopril Sodium [Monopril] 5 mg PO DAILY 10/24/15 Garlic 1 mg PO DAILY 10/24/15 Metformin HCl [Glucophage] 1,000 mg PO DAILY 10/24/15 Multivitamin [Daily Multiple 1 ea PO DAILY 10/24/15 Vitamin] [place]-3 Fatty Acids/Fish Oil 1,000 mg PO DAILY 10/24/15 [[place] 3 1,000 mg Softgel] Vitamin B Complex 1 ea PO DAILY 10/24/15 Vitamin E 1,000 unit PO DAILY 10/24/15 Cyanocobalamin (Vitamin B-12) 5,000 mcg SL BID 09/18/17 [Vitamin B-12] Methylsulfonylmethane [MSM] 1,500 mg PO BID 09/18/17 Niacinamide 500 mg PO DAILY 09/18/17 Pyridoxine HCl [Vitamin B6] 100 mg PO BID 09/18/17 Sodium Chloride 1 gm PO DAILY 09/18/17 Ubidecarenone [Co Q-10] 200 mg PO DAILY 09/18/17 Vanadyl Sulfate 10 mg PO DAILY 09/18/17 furosemide 40 mg tablet 40 mg PO QDAY #90 tab 09/25/17 simvastatin 40 mg tablet 20 mg PO QHS 09/25/17 Cholecalciferol (VIT D3) [Vitamin 1,000 unit PO DAILY 10/29/17 D3] Ferrous Sulfate [Iron] 325 mg PO DAILY 10/29/17 Apixaban [Eliquis] 5 mg PO BID 03/14/18 Duloxetine Hcl [Cymbalta] 30 mg pe PO DAILY 03/14/18 Acetaminophen [Tylenol Extra 500 mg PO Q4H PRN PRN #20 tablet 03/19/18 Strength] Lisinopril [Zestril] mg PO DAILY 03/19/18 Metoprolol Tartrate [Lopressor 50 mg PO BID 06/02/18 (beta lisa)] Surgical History: Surgical History (Last Reviewed 09/25/17 @ 16:11 by Lucas Glasgow MD) History of aortic valve replacement with bioprosthetic valve (Chronic) Onset Date: ~11/12/16 Z95.3 Trifecta GT Tissue Heart Valve Serial # [id number] Model TFGT- 25A @ [facility] Surgical History: cataract - bilateral, - - aortic valve replacement October 2016, 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 Lives: Alone Smoking Status: Former smoker Alcohol: None, Rare - *Family History Sibling Family History: Family History (Last Reviewed 09/25/17 @ 16:11 by Lucas Glasgow MD) Sister Heart disease Brother Cancer History Items: Heart Disease Maternal Family History: Family History (Last Reviewed 09/25/17 @ 16:11 by Lucas Glasgow MD) Sister Heart disease Brother Cancer History Items: No pertinent history Paternal Family History: Family History (Last Reviewed 09/25/17 @ 16:11 by Lucas Glasgow MD) Sister Heart disease Brother Cancer History Items: No pertinent history Review of Systems Unable to obtain accurate/complete ROS d/t: Due to current intubation and mechanical ventilation status. Patient Problems: Active and Suspected Problems (Last Updated 06/02/18 @ 03:12 by Sally Cm MD) Atrial fibrillation and flutter (Acute) Fever (Acute) Anemia (Acute) Thrombocytopenia (Acute) Objective: The patient's most recent lab work, culture data and imaging studies have all been personally reviewed. Blood and urine cultures are currently pending. Rapid influenza screen was negative. Respiratory viral panel is pending. Sputum culture is pending. Surface echocardiogram revealed normal LV size and function with an ejection fraction of 65% and stage I diastolic dysfunction. Pu lmonary artery systolic pressure was estimated to be 40 mmHg. - Physical Exam General: - - Currently intubated, sedated and mechanically ventilated. HEENT: Atraumatic, PERRLA, Normocephalic Oral: Moist Mucosa, - - Endotracheal and OG tubes currently in place Neck: Supple, No Nodes, Trachea Midline Lungs: No rhonchi, No wheeze, No rales, Diminished Cardiovascular: Normal S1, Normal S2, Irregular Rate, Murmur, Tachycardic Abdomen: Bowel Sounds Present, Soft, Non Tender Extremities: No clubbing, No cyanosis, No edema Skin: No breakdown Musculoskeletal: No Tenderness to Palpation of Joints or Extremities Lymphatic: No Cervical, Supraclavicular, or Inguinal Adenopathy Neurological: - - No focal neurological deficits. Patient is currently sedated. Vital Signs Temp Pulse Resp BP Pulse Ox 37.0 C 120 H 15 100/53 L 100 06/03/18 06:00 06/03/18 06:00 06/03/18 06:00 06/03/18 06:00 06/03/18 06:00 Oxygen Flow Rate (L/min) 2 Oxygen Delivery Method Mechanical Ventilator Weight: 167 lb 15.876 oz Body Mass Index (BMI) 27.1 Finger Stick Blood Glucose 95 Intake and Output for Last 24 Hours 06/01/18 06/02/18 06/03/18 23:59 23:59 23:59 Intake Total 1435 / 1435 1211 / 1211 Output Total 500 / 500 650 / 650 Balance 935 / 935 561 / 561 Microbiology Past 72 Hours 03/04/19 02:15 Influenza Types A,B Direct FA (CHELE) - Final Mucosa - Nose Laboratory Tests Past 24 Hrs 06/02/18 06/02/18 06/02/18 01:10 07:00 07:00 WBC 8.7 RBC 2.75 L Hgb 8.1 L Hct 25.8 L MCV 93.8 MCH 29.5 MCHC 31.4 L RDW 14.9 H RDW Differential 50.9 H Plt Count 102 L MPV 10.8 Immature Gran % (Auto) 1.300 H Neut % (Auto) 69.4 Lymph % (Auto) 18.0 L [place] % (Auto) 11.1 H Eos % (Auto) 0.1 Baso % (Auto) 0.1 Absolute Neuts (auto) 6.0 Absolute Lymphs (auto) 1.57 Total Counted Not Reportable Nucleated RBC % Differential Comment Diff Path Review Reviewed Platelet Estimate Polychromasia Absolute Retic PT INR APTT D-Dimer Quant (PE/DVT) Specimen Type Sample Site pH Bicarbonate Actual POC Total CO2 Base Excess O2 Saturation O2 % ABG pCO2 ABG pO2 Sage Test Respiration Rate O2 Delivery Device Minute Volume Vent Mode Tidal Volume POC PEEP Blood Gas Notified Whom Blood Gas Notified Time Sodium Potassium Chloride Carbon Dioxide Anion Gap BUN Creatinine Estim Creat Clear Calc Est GFR (MDRD) Af Amer Est GFR (MDRD) Non-Af BUN/Creatinine Ratio Glucose Calcium Total Bilirubin AST ALT Alkaline Phosphatase Total Creatine Kinase Troponin I 0.073 H Total Protein Albumin Globulin Albumin/Globulin Ratio Triglycerides 06/02/18 06/02/18 06/02/18 07:00 11:10 11:10 WBC 8.8 RBC 2.69 L Hgb 7.9 L Hct 25.0 L MCV 92.9 MCH 29.4 MCHC 31.6 L RDW 15.0 H RDW Differential 51.0 H Plt Count 93 L MPV 10.7 Immature Gran % (Auto) 1.400 H Neut % (Auto) 66.4 Lymph % (Auto) 21.6 [place] % (Auto) 10.3 H Eos % (Auto) 0.1 Baso % (Auto) 0.2 Absolute Neuts (auto) 5.9 Absolute Lymphs (auto) 1.90 Total Counted Not Reportable Nucleated RBC % 1.6 Differential Comment Diff Path Review May foll Platelet Estimate MOD DEC Polychromasia RARE Absolute Retic 0.15 PT 23.5 H INR 2.1 APTT D-Dimer Quant (PE/DVT) Specimen Type Sample Site pH Bicarbonate Actual POC Total CO2 Base Excess O2 Saturation O2 % ABG pCO2 ABG pO2 Sage Test Respiration Rate O2 Delivery Device Minute Volume Vent Mode Tidal Volume POC PEEP Blood Gas Notified Whom Blood Gas Notified Time Sodium 141 Potassium 4.0 Chloride 111 H Carbon Dioxide 21.0 Anion Gap 9 BUN 68 H Creatinine 1.75 H Estim Creat Clear Calc 31.39 Est GFR (MDRD) Af Amer 49 L Est GFR (MDRD) Non-Af 40 L BUN/Creatinine Ratio 38.9 H Glucose 224 H Calcium 8.2 L Total Bilirubin AST ALT Alkaline Phosphatase Total Creatine Kinase Troponin I Total Protein Albumin Globulin Albumin/Globulin Ratio Triglycerides 06/02/18 06/02/18 06/02/18 11:10 11:10 13:00 WBC RBC Hgb Hct MCV MCH MCHC RDW RDW Differential Plt Count MPV Immature Gran % (Auto) Neut % (Auto) Lymph % (Auto) [place] % (Auto) Eos % (Auto) Baso % (Auto) Absolute Neuts (auto) Absolute Lymphs (auto) Total Counted Nucleated RBC % Differential Comment Diff Path Review Platelet Estimate Polychromasia Absolute Retic PT INR APTT D-Dimer Quant (PE/DVT) Cancelled > 20.00 H* Specimen Type Sample Site pH Bicarbonate Actual POC Total CO2 Base Excess O2 Saturation O2 % ABG pCO2 ABG pO2 Sage Test Respiration Rate O2 Delivery Device Minute Volume Vent Mode Tidal Volume POC PEEP Blood Gas Notified Whom Blood Gas Notified Time Sodium 144 Potassium 4.1 Chloride 111 H Carbon Dioxide 20.0 L Anion Gap 13 BUN 70 H Creatinine 1.86 H Estim Creat Clear Calc 29.54 Est GFR (MDRD) Af Amer 45 L Est GFR (MDRD) Non-Af 38 L BUN/Creatinine Ratio 37.6 H Glucose 231 H Calcium 8.3 L Total Bilirubin 0.20 AST 156 H ALT 28 Alkaline Phosphatase 155 H Total Creatine Kinase 386 H Troponin I Total Protein 5.4 L Albumin 1.9 L Globulin 3.5 Albumin/Globulin Ratio 0.5 L Triglycerides 06/02/18 06/02/18 06/03/18 22:40 23:38 00:10 WBC RBC Hgb Hct MCV MCH MCHC RDW RDW Differential Plt Count MPV Immature Gran % (Auto) Neut % (Auto) Lymph % (Auto) [place] % (Auto) Eos % (Auto) Baso % (Auto) Absolute Neuts (auto) Absolute Lymphs (auto) Total Counted Nucleated RBC % Differential Comment Diff Path Review Platelet Estimate Polychromasia Absolute Retic PT INR APTT D-Dimer Quant (PE/DVT) Specimen Type ART Sample Site R Radial pH 7.44 Bicarbonate Actual 21.0 L POC Total CO2 22 Base Excess -3 L O2 Saturation 100 H O2 % 50 ABG pCO2 30.9 L ABG pO2 170 H Sage Test POS Respiration Rate 14 O2 Delivery Device Vent Minute Volume 8.00 Vent Mode A-C Tidal Volume 450 POC PEEP 5 Blood Gas Notified Whom [facility] Blood Gas Notified Time 2328 Sodium Potassium Chloride Carbon Dioxide Anion Gap BUN Creatinine Estim Creat Clear Calc Est GFR (MDRD) Af Amer Est GFR (MDRD) Non-Af BUN/Creatinine Ratio Glucose Calcium Total Bilirubin AST ALT Alkaline Phosphatase Total Creatine Kinase 349 H Troponin I 0.104 H Total Protein Albumin Globulin Albumin/Globulin Ratio Triglycerides 189 06/03/18 06/03/18 06/03/18 02:30 06:15 06:15 WBC 7.8 RBC 2.61 L Hgb 7.7 L Hct 24.7 L MCV 94.6 H MCH 29.5 MCHC 31.2 L RDW 15.2 H RDW Differential 51.6 H Plt Count 80 L MPV 11.1 Immature Gran % (Auto) 2.100 H Neut % (Auto) 62.6 Lymph % (Auto) 28.1 [place] % (Auto) 6.6 Eos % (Auto) 0.1 Baso % (Auto) 0.5 Absolute Neuts (auto) 4.9 Absolute Lymphs (auto) 2.19 Total Counted Not Reportable Nucleated RBC % 2.9 Differential Comment Diff Path Review May foll Platelet Estimate Polychromasia Absolute Retic 0.22 PT INR APTT D-Dimer Quant (PE/DVT) Specimen Type Sample Site pH Bicarbonate Actual POC Total CO2 Base Excess O2 Saturation O2 % ABG pCO2 ABG pO2 Sage Test Respiration Rate O2 Delivery Device Minute Volume Vent Mode Tidal Volume POC PEEP Blood Gas Notified Whom Blood Gas Notified Time Sodium 146 H Potassium 4.1 Chloride 112 H Carbon Dioxide 21.0 Anion Gap 13 BUN 84 H Creatinine 1.93 H Estim Creat Clear Calc 28.47 Est GFR (MDRD) Af Amer 43 L Est GFR (MDRD) Non-Af 36 L BUN/Creatinine Ratio 43.5 H Glucose 284 H Calcium 8.3 L Total Bilirubin AST ALT Alkaline Phosphatase Total Creatine Kinase Troponin I 0.099 H Total Protein Albumin Globulin Albumin/Globulin Ratio Triglycerides 06/03/18 06/03/18 06:15 06:55 WBC RBC Hgb Hct MCV MCH MCHC RDW RDW Differential Plt Count MPV Immature Gran % (Auto) Neut % (Auto) Lymph % (Auto) [place] % (Auto) Eos % (Auto) Baso % (Auto) Absolute Neuts (auto) Absolute Lymphs (auto) Total Counted Nucleated RBC % Differential Comment Diff Path Review Platelet Estimate Polychromasia Absolute Retic PT INR APTT Pending D-Dimer Quant (PE/DVT) Specimen Type Sample Site pH Bicarbonate Actual POC Total CO2 Base Excess O2 Saturation O2 % ABG pCO2 ABG pO2 Sage Test Respiration Rate O2 Delivery Device Minute Volume Vent Mode Tidal Volume POC PEEP Blood Gas Notified Whom Blood Gas Notified Time Sodium Potassium Chloride Carbon Dioxide Anion Gap BUN Creatinine Estim Creat Clear Calc Est GFR (MDRD) Af Amer Est GFR (MDRD) Non-Af BUN/Creatinine Ratio Glucose Calcium Total Bilirubin AST ALT Alkaline Phosphatase Total Creatine Kinase Troponin I 0.084 H Total Protein Albumin Globulin Albumin/Globulin Ratio Triglycerides POC Glucose 06/03/18 06/02/18 06/02/18 01:53 22:48 17:28 POC Glucose 240 H 207 H 242 H 06/02/18 11:38 POC Glucose 221 H Clinical Impression(s) from Imaging Studies Brain CT 06/02/18 01:25 IMPRESSION: No acute findings. Individualized dose optimization techniques were used for this CT. at 0159 Reported and signed by: Geoff Joaquin MD Electronically Signed: Geoff Joaquin, at 1:58 EST Tel , Service support , Cervical Spine CT 06/02/18 01:25 IMPRESSION: No fracture or dislocation of the cervical spine. Individualized dose optimization techniques were used for this CT. at 0206 Reported and signed by: Geoff Joaquin MD Electronically Signed: Geoff Joaquin, at 2:05 EST Tel , Service support , Chest X-Ray 06/02/18 01:35 IMPRESSION: Low lung volumes with resultant hypoventilatory changes. No definite pneumonia or edema. Interval sternotomy probably for heart valve replacement. at 0154 Reported and signed by: Geoff Joaquin MD Electronically Signed: Geoff Joaquin, at 1:53 EST Tel , Service support , Lung Scan-VQ NM 06/02/18 13:55 IMPRESSION: Low quality VQ scan, most consistent with low probability of pulmonary embolism. Electronically Signed: Kenny Greene MD at 16:31 EST , Service support , Chest X-Ray 06/02/18 14:28 IMPRESSION: Moderate right pleural effusion with overlying atelectasis. Electronically Signed: Juan Ruiz, at 15:40 EST Tel , Service support , Chest CT 06/02/18 21:14 IMPRESSION: Small bilateral pleural effusions with overlying atelectasis. Sclerotic osseous lesions which are suspicious for metastasis. Electronically Signed: Juan Ruiz, at 22:14 EST Tel , Service support , Chest X-Ray 06/02/18 22:26 IMPRESSION: Mild left basilar atelectasis status post endotracheal tube placement Electronically Signed: Norbert Snyder MD at 23:18 EST , Service support , Assessment/Plan Active and Suspected Problems (Last Updated 06/02/18 @ 03:12 by Sally Cm MD) Atrial fibrillation and flutter (Acute) Fever (Acute) Anemia (Acute) Thrombocytopenia (Acute) RECOMMENDATIONS: 1. Continue amiodarone and await cardiology input 2. Discontinue IV Solu-Medrol 3. Wean FiO2 to maintain oxygen saturations at or above 90%. 4. Continue heparin drip for now. 5. Continue Zosyn. Vancomycin can be discontinued from my perspective. 6. Start tube feeds. 7. Start Protonix for GI prophylaxis 8. Check stool for occult blood. 9. Transfused 2 units packed red blood cells. Check H&H posttransfusion. IMPRESSIONS: 1. Acute hypoxemic respiratory failure The exact etiology for the patient's clinical decompensation is unclear. However, the patient was noted to be tachycardic at the time when he was initially beginning to decompensate. It is unclear whether this was atrial fibrillation or a sinus tachycardia. Given that the patient has paroxysmal atrial fibrillation and underlying valvular heart disease, it is possible that his decompensation may have been heart rate related. In addition, increased metabolic demands from the patient's sepsis and fevers also likely contributed. He is chronically anticoagulated with Eliquis on an outpatient basis. Therefore, I am not certain as to why there is so much concern for pulmonary embolism. The patient's CT chest obtained overnight only revealed evidence of small bilateral pleural effusions without focal infiltrates. His FiO2 was able to be quickly weaned. At this time, we will plan to continue to wean the patient as tolerated. Tube feeds will be initiated today. Continue fentanyl and propofol for sedation. 2. Severe sepsis secondary to presumptive cystitis The patient did spike a high-grade fever overnight. He was subsequently broadened from an antibiotic perspective. MRSA screen was found to be negative. Therefore, vancomycin will be discontinued. Will await pending culture results. 3. Paroxysmal atrial fibrillation with RVR/history of aortic valve replacement Cardiology has been consulted to assist with management. The patient is currently on an amiodarone infusion. Will await additional recommendations/input. 4. Metastatic prostate cancer/anemia/chronic kidney disease/hypertension/hyperlipidemia/depression/generalized deconditioning and debility Complicates care, management, recovery and prognosis. Likely okay to continue home medications. Physical therapy to once again work with patient once medically stabilized. Recommend formal goals of care discussion with the patient and his family. TIME: 40 minutes of critical care time, independent of procedures, was spent addressing the patient's acute hypoxemic respiratory failure, severe sepsis, paroxysmal atrial fibrillation with a rapid ventricular rate, metastatic prostate cancer, review of all data and collaboration with the care team. ([id number] [phone]) Code Visit 9xxxx: [id number] Critical care first hour
[2018-06-03 07:46] LABS: Bedside Glucose 250 mg/dL (70-110)
[2018-06-03 07:56] LABS: Partial Thromboplast Time 118.5 Seconds (24.1-36.2)
[2018-06-03 08:21] LABS: AST(SGOT) 216 U/L (15-37); Alanine Aminotransfer ALT/SGPT 44 U/L (16-61); Albumin, Serum 1.9 g/dL (3.2-5.0); Alkaline Phosphatase 130 U/L (45-117); Globulin 3.3 g/dL (2.2-4.2); Protein, Total 5.2 g/dL (6.4-8.2)
[2018-06-03] MEDS: DULoxetine Hcl 30 MG Capsule PO (08:21)
--- NOTE | 2018-06-03 09:54 | CASEMGMT ---
Addendum entered by Ronald Burr 06/03/18 11:25: Call received from KEILY Puckett mgr. Discussed anticipated hospital stay until Saturday/Saturday. TCU bed availability not guaranteed. But pt name is on list and can determine bed availability closer to dc if SNF is recommended. Aditya HEATH Original Note: Addendum entered by Ronald Burr 06/03/18 10:30: Message left for KEILY Puckett mgr requesting pt's name be added to TCU list. DC date undetermined. Aditya ROLON RNA CM Original Note: SHLOMO LAGOS ASSESSMENT Presentation: Sepsis/ cystitis. Pt had fall day of admission, then found by son lethargic on couch. Transferred to ICU, after afib with RVR and hypotension. Intubated, Amiodarone gtt, IV antibiotics. Intro role of CM Hx of Prostate cancer with mets to bone. PCP: Dr. Hyatt Specialist: Dr. Murray (pt also has oncologist) Pharmacy: [facility] [place] Living Arrangements: Pt lives in single story home with basement. Son states pt uses walker at home, does not go to basement and has ramp for entryway. Son states pt does not cook much. Eats canned soups and frozen dinners. has been independent in ADL. DME: walker, cane. (No oxygen, cpap, or nebulizer used) Home Health: none previously. SHLOMO LAGOS discussed possible need for HHS if pt returns home. Is agreeable to [facility] H[facility]. SNF: discussed possible need for SNF on dc. Options given and son would like his father's name added to [facility] TCU list. DC PLAN: undetermined. Aditya SON
--- NOTE | 2018-06-03 10:11 | PCM.PN.HOSP ---
Subjective: Patient seen and examined. He was emergently transferred to ICU when he developed worsening respiratory failure. V/Q Scan done showed low probability of PE. Chest x-ray showed moderate right pleural effusion with overlying atelectasis CT scan of the chest showed small bilateral pleural effusion with overlying atelectasis, sclerotic osseous lesions suspicious for metastasis Patient developed fever, T-max is 102.5, blood cultures are pending, urine cultures growing gram-positive cocci possibly enterococcus Influenza and respiratory panel is negative. He is also reportedly to have gone into A. fib with RVR soon after intubation. Vitals/I&O's: Vital Signs Temp Pulse Resp BP Pulse Ox 99.7 F H 93 20 H 98/63 100 06/03/18 09:00 06/03/18 09:00 06/03/18 09:00 06/03/18 09:00 06/03/18 09:00 Oxygen Flow Rate (L/min) 2 Oxygen Delivery Method Mechanical Ventilator Weight: 76.2 kg Body Mass Index (BMI) 27.1 Finger Stick Blood Glucose 95 Intake and Output for Last 24 Hours 06/01/18 06/02/18 06/03/18 23:59 23:59 23:59 Intake Total 1435 / 1435 1211 / 1211 Output Total 500 / 500 650 / 650 Balance 935 / 935 561 / 561 General: - - sedated, intubated, on mechanical ventilator HEENT: Atraumatic, PERRLA, EOMI, Normocephalic Oral: Dry Mucosa Neck: Supple Lungs: Normal air movement, Diminished Cardiovascular: Regular rate, Regular Rhythm, Normal S1, Normal S2, No murmurs Abdomen: Bowel Sounds Present, Soft, Non Tender, Non-Distended, No Hepato-splenomegaly, - - Crump catheter in situ Extremities: No edema Skin: No rashes Musculoskeletal: No Tenderness to Palpation of Joints or Extremities Lymphatic: No Cervical, Supraclavicular, or Inguinal Adenopathy Neurological: Cranial nerves II-XII grossly intact, Neuro grossly intact Psych/Mental Status: Normal Affect, Appropriate Microbiology Past 72 Hours 06/02/18 22:30 Mucosa - Nose Respiratory Panel (PCR) - Final 06/02/18 01:55 Urine, Clean Catch Urine Culture - Preliminary GPC Poss Enterococcus sp 06/02/18 02:15 Mucosa - Nose Influenza Types A,B Direct FA ([facility]) - Final Laboratory Results 06/02/18 01:10: Diff Path Review Reviewed 06/02/18 11:10: WBC 8.8, RBC 2.69 L, Hgb 7.9 L, Hct 25.0 L, MCV 92.9, MCH 29.4, MCHC 31.6 L, RDW 15.0 H, RDW Differential 51.0 H, Plt Count 93 L, MPV 10.7, Immature Gran % (Auto) 1.400 H, Neut % (Auto) 66.4, Lymph % (Auto) 21.6, [place] % (Auto) 10.3 H, Eos % (Auto) 0.1, Baso % (Auto) 0.2, Absolute Neuts (auto) 5.9, Absolute Lymphs (auto) 1.90, Total Counted Not Reportable, Nucleated RBC % 1.6, Diff Path Review July, Platelet Estimate MOD DEC, Polychromasia RARE, Absolute Retic 0.15 06/02/18 11:10: PT 23.5 H, INR 2.1 06/02/18 11:10: Sodium 144, Potassium 4.1, Chloride 111 H, Carbon Dioxide 20.0 L, Anion Gap 13, BUN 70 H, Creatinine 1.86 H, Estim Creat Clear Calc 29.54, Est GFR (MDRD) Af Amer 45 L, Est GFR (MDRD) Non-Af 38 L, BUN/Creatinine Ratio 37.6 H, Glucose 231 H, Calcium 8.3 L, Total Bilirubin 0.20, AST 156 H, ALT 28, Alkaline Phosphatase 155 H, Total Creatine Kinase 386 H, Total Protein 5.4 L, Albumin 1.9 L, Globulin 3.5, Albumin/Globulin Ratio 0.5 L 06/02/18 11:10: D-Dimer Quant (PE/DVT) Cancelled 06/02/18 11:38: POC Glucose 221 H 06/02/18 13:00: D-Dimer Quant (PE/DVT) > 20.00 H* 06/02/18 17:28: POC Glucose 242 H 06/02/18 22:40: Total Creatine Kinase 349 H, Triglycerides 189 06/02/18 22:48: POC Glucose 207 H 06/02/18 23:38: Specimen Type ART, Sample Site R Radial, pH 7.44, Bicarbonate Actual 21.0 L, POC Total CO2 22, Base Excess -3 L, O2 Saturation 100 H, O2 % 50, ABG pCO2 30.9 L, ABG pO2 170 H, Sage Test POS, Respiration Rate 14, O2 Delivery Device Vent, Minute Volume 8.00, Vent Mode A-C, Tidal Volume 450, POC PEEP 5, Blood Gas Notified Whom JOHN BARRERA, Blood Gas Notified Time 2328 06/03/18 00:10: Troponin I 0.104 H 06/03/18 01:53: POC Glucose 240 H 06/03/18 02:30: Troponin I 0.099 H 06/03/18 06:15: WBC 7.8, RBC 2.61 L, Hgb 7.7 L, Hct 24.7 L, MCV 94.6 H, MCH 29.5, MCHC 31.2 L, RDW 15.2 H, RDW Differential 51.6 H, Plt Count 80 L, MPV 11.1, Immature Gran % (Auto) 2.100 H, Neut % (Auto) 62.6, Lymph % (Auto) 28.1, [place] % (Auto) 6.6, Eos % (Auto) 0.1, Baso % (Auto) 0.5, Absolute Neuts (auto) 4.9, Absolute Lymphs (auto) 2.19, Total Counted Not Reportable, Nucleated RBC % 2.9, Differential Comment , Diff Path Review July, Absolute Retic 0.22 06/03/18 06:15: Sodium 146 H, Potassium 4.1, Chloride 112 H, Carbon Dioxide 21.0, Anion Gap 13, BUN 84 H, Creatinine 1.93 H, Estim Creat Clear Calc 28.47, Est GFR (MDRD) Af Amer 43 L, Est GFR (MDRD) Non-Af 36 L, BUN/Creatinine Ratio 43.5 H, Glucose 284 H, Calcium 8.3 L 06/03/18 06:15: Troponin I 0.084 H 06/03/18 06:15: Total Bilirubin 0.30, Direct Bilirubin 0.10, AST 216 H, ALT 44, Alkaline Phosphatase 130 H, Total Protein 5.2 L, Albumin 1.9 L, Globulin 3.3 06/03/18 06:39: POC Glucose 250 H 06/03/18 06:55: APTT 118.5 H* 06/03/18 08:00: Blood Type AB POSITIVE, Antibody Screen NEGATIVE 06/03/18 08:00: MRSA (PCR) Pending Current Medications Acetaminophen (Tylenol Liquid) 650 mg GT Q6H PRN PRN PRN Reason: Fever, headache, pain Atorvastatin Calcium (Lipitor) 10 mg GT QHS [facility] Chlorhexidine Gluconate () 15 ml PO BID [facility] Last Admin: 06/03/18 08:21 Dose: 15 ml Chlorhexidine Gluconate () 1 each TOPICAL DAILY [facility] Last Admin: 06/03/18 06:25 Dose: 1 each Duloxetine HCl (Cymbalta) 30 mg PO DAILY [facility] Last Admin: 06/03/18 08:21 Dose: 30 mg Heparin Sodium (Porcine) (Heparin Na) 0 unit IV UD PRN; Protocol Sodium Chloride () 250 mls @ 15 mls/hr IV .[id number] PRN PRN Reason: SALINE FLUSH Last Admin: 06/03/18 02:30 Dose: 15 mls/hr Propofol (Diprivan) 1,000 mg in 100 mls @ 4.596 mls/hr CONT INF .Q12H [facility] Last Admin: 06/02/18 22:22 Dose: 4.596 mls/hr Piperacillin Sod/Tazobactam (Sod 3.375 gm/ Sodium Chloride) 50 mls @ 12.5 mls/hr IV Q8 [facility] Last Admin: 06/03/18 06:25 Dose: 12.5 mls/hr Vancomycin IV Pharmacy to Dose (1 ea/ Sodium Chloride) 500 mls @ 250 mls/hr IV X1 PRN; Protocol PRN Reason: Rx to Dose Fentanyl () 100 mls @ 2.5 mls/hr IV .Q40H [facility] Last Admin: 06/03/18 00:17 Dose: 2.5 mls/hr Heparin Sodium/Dextrose () 25,000 units in 250 mls @ 11 mls/hr IV .[id number] [facility]; Protocol Last Admin: 06/03/18 01:00 Dose: 11 mls/hr Amiodarone HCl 360 mg/ (Dextrose) 200 mls @ 16.67 mls/hr CONT INF .Q12H1M [facility] Stop: 06/04/18 00:34 Last Admin: 06/03/18 07:29 Dose: 16.67 mls/hr Vancomycin HCl (Vancomycin) 1,000 mg in 200 mls @ 200 mls/hr IV Q24H [facility] Enteral Nutritional Formula (Vital Af 1.2 Abilio Liquid) 1,000 mls @ 75 mls/hr GT .[id number] [facility] Insulin Human Lispro (Humalog Kwikpen (Bkc)) 0 unit SC Q6 [facility]; Protocol Magnesium Hydroxide (Milk Of Magnesia) 30 ml GT DAILY PRN PRN Reason: Constipation Methylprednisolone (Solu-Medrol) 40 mg IV Q8 [facility] Last Admin: 06/03/18 06:26 Dose: 40 mg Ondansetron HCl (Zofran) 4 mg IV Q6H PRN PRN PRN Reason: NAUSEA/VOMITING Sodium Chloride () 5 - 15 ml IV UD PRN PRN Reason: SALINE FLUSH Last Admin: 06/03/18 01:54 Dose: 10 ml Medical Necessity - Tobacco Use Smoking Status: Former smoker Assessment/Plan 77-year-old male with past medical history of metastatic prostate cancer to the bone, history of aortic valve replacement with bioprosthetic valve, CKD, hypertension, BPH admitted on 06/02/18 with altered mental status initially managed as sepsis secondary to acute cystitis. Patient was found to have gone into respiratory failure resulting in intubation and transferred to the ICU 1. Acute respiratory failure, unclear etiology, initial chest x-ray was negative for infiltrate, VQ scan shows low probability for PE Subsequent chest x-ray and chest CT without contrast showed bilateral pleural effusions 2D echo shows EF of 65%, stage 1 diastolic dysfunction, no acute abnormality Patient is intubated, mechanical ventilator, manager transplant consulted, will continue per recommendations 2. A. fib/A. flutter with RVR, history of paroxysmal atrial fibrillation, was on Eliquis and metoprolol, started on amiodarone, heart rate remains uncontrolled, blood pressure remains borderline, Cardiology consult, continue with amiodarone drip, will add metoprolol 25mg GT bid with holding 3. Anemia, microchromic anemia, Hb is 7.7, drop from 9.2 is likely secondary to hemodilution, 4. Acute metabolic encephalopathy secondary to sepsis, appears to have improved yesterday, now intubated 5. Indeterminate troponins, likely secondary to sepsis and respiratory failure, peaked at 0.099, dropped to 0.084 6. Mild rhabdomyolysis, CK was 349 on admission, will recheck today 7. CKD stage 3, Cr is about his baseline, will be monitoring 8. Hypertension, relatively hypotension, started on metoprolol 12.5mg GT BID, will continue to monitor 9. Metastatic prostate cancer with metastases to the bone, never treated 10. s/p aortic valve replacement with bioprosthetic valve 11. BPH s/p crump catheter 12. DVT PPx- Heparin SC Code Visit Inpatient E&M: 65650 Subs Hosp L3
--- NOTE | 2018-06-03 10:14 | PN_ITS ---
Subjective: Patient seen and examined. He was emergently transferred to ICU when he developed worsening respiratory failure. V/Q Scan done showed low probability of PE. Chest x-ray showed moderate right pleural effusion with overlying atelectasis CT scan of the chest showed small bilateral pleural effusion with overlying atelectasis, sclerotic osseous lesions suspicious for metastasis Patient developed fever, T-max is 102.5, blood cultures are pending, urine cultures growing gram-positive cocci possibly enterococcus Influenza and respiratory panel is negative. He is also reportedly to have gone into A. fib with RVR soon after intubation. Vitals/I&O's: Vital Signs Temp Pulse Resp BP Pulse Ox 99.7 F H 93 20 H 98/63 100 06/03/18 09:00 06/03/18 09:00 06/03/18 09:00 06/03/18 09:00 06/03/18 09:00 Oxygen Flow Rate (L/min) 2 Oxygen Delivery Method Mechanical Ventilator Weight: 76.2 kg Body Mass Index (BMI) 27.1 Finger Stick Blood Glucose 95 Intake and Output for Last 24 Hours 06/01/18 06/02/18 06/03/18 23:59 23:59 23:59 Intake Total 1435 / 1435 1211 / 1211 Output Total 500 / 500 650 / 650 Balance 935 / 935 561 / 561 General: - - sedated, intubated, on mechanical ventilator HEENT: Atraumatic, PERRLA, EOMI, Normocephalic Oral: Dry Mucosa Neck: Supple Lungs: Normal air movement, Diminished Cardiovascular: Regular rate, Regular Rhythm, Normal S1, Normal S2, No murmurs Abdomen: Bowel Sounds Present, Soft, Non Tender, Non-Distended, No Hepato-sple nomegaly, - - Crump catheter in situ Extremities: No edema Skin: No rashes Musculoskeletal: No Tenderness to Palpation of Joints or Extremities Lymphatic: No Cervical, Supraclavicular, or Inguinal Adenopathy Neurological: Cranial nerves II-XII grossly intact, Neuro grossly intact Psych/Mental Status: Normal Affect, Appropriate Microbiology Past 72 Hours 06/02/18 22:30 Mucosa - Nose Respiratory Panel (PCR) - Final 06/02/18 01:55 Urine, Clean Catch Urine Culture - Preliminary GPC Poss Enterococcus sp 06/02/18 02:15 Mucosa - Nose Influenza Types A,B Direct FA ([facility]LE) - Final Laboratory Results 06/02/18 01:10: Diff Path Review Reviewed 06/02/18 11:10: WBC 8.8, RBC 2.69 L, Hgb 7.9 L, Hct 25.0 L, MCV 92.9, MCH 29.4, MCHC 31.6 L, RDW 15.0 H, RDW Differential 51.0 H, Plt Count 93 L, MPV 10.7, Immature Gran % (Auto) 1.400 H, Neut % (Auto) 66.4, Lymph % (Auto) 21.6, [place] % (Auto) 10.3 H, Eos % (Auto) 0.1, Baso % (Auto) 0.2, Absolute Neuts (auto) 5.9, Absolute Lymphs (auto) 1.90, Total Counted Not Reportable, Nucleated RBC % 1.6, Diff Path Review May , Platelet Estimate MOD DEC, Polychromasia RARE, Absolute Retic 0.15 06/02/18 11:10: PT 23.5 H, INR 2.1 06/02/18 11:10: Sodium 144, Potassium 4.1, Chloride 111 H, Carbon Dioxide 20.0 L , Anion Gap 13, BUN 70 H, Creatinine 1.86 H, Estim Creat Clear Calc 29.54, Est GFR (MDRD) Af Amer 45 L, Est GFR (MDRD) Non-Af 38 L, BUN/Creatinine Ratio 37.6 H , Glucose 231 H, Calcium 8.3 L, Total Bilirubin 0.20, AST 156 H, ALT 28, Alkaline Phosphatase 155 H, Total Creatine Kinase 386 H, Total Protein 5.4 L, Albumin 1.9 L, Globulin 3.5, Albumin/Globulin Ratio 0.5 L 06/02/18 11:10: D-Dimer Quant (PE/DVT) Cancelled 06/02/18 11:38: POC Glucose 221 H 06/02/18 13:00: D-Dimer Quant (PE/DVT) > 20.00 H* 06/02/18 17:28: POC Glucose 242 H 06/02/18 22:40: Total Creatine Kinase 349 H, Triglycerides 189 06/02/18 22:48: POC Glucose 207 H 06/02/18 23:38: Specimen Type ART, Sample Site R Radial, pH 7.44, Bicarbonate Actual 21.0 L, POC Total CO2 22, Base Excess -3 L, O2 Saturation 100 H, O2 % 50, ABG pCO2 30.9 L, ABG pO2 170 H, Sage Test POS, Respiration Rate 14, O2 Delivery Device Vent, Minute Volume 8.00, Vent Mode A-C, Tidal Volume 450, POC PEEP 5, Blood Gas Notified Whom JOHN BARRERA, Blood Gas Notified Time 9259 06/03/18 00:10: Troponin I 0.104 H 06/03/18 01:53: POC Glucose 240 H 06/03/18 02:30: Troponin I 0.099 H 06/03/18 06:15: WBC 7.8, RBC 2.61 L, Hgb 7.7 L, Hct 24.7 L, MCV 94.6 H, MCH 29.5, MCHC 31.2 L, RDW 15.2 H, RDW Differential 51.6 H, Plt Count 80 L, MPV 11.1, Immature Gran % (Auto) 2.100 H, Neut % (Auto) 62.6, Lymph % (Auto) 28.1, [place] % (Auto) 6.6, Eos % (Auto) 0.1, Baso % (Auto) 0.5, Absolute Neuts (auto) 4.9, Absolute Lymphs (auto) 2.19, Total Counted Not Reportable, Nucleated RBC % 2.9, Differential Comment , Diff Path Review July, Absolute Retic 0.22 06/03/18 06:15: Sodium 146 H, Potassium 4.1, Chloride 112 H, Carbon Dioxide 21.0, Anion Gap 13, BUN 84 H, Creatinine 1.93 H, Estim Creat Clear Calc 28.47, Est GFR (MDRD) Af Amer 43 L, Est GFR (MDRD) Non-Af 36 L, BUN/Creatinine Ratio 43.5 H, Glucose 284 H, Calcium 8.3 L 06/03/18 06:15: Troponin I 0.084 H 06/03/18 06:15: Total Bilirubin 0.30, Direct Bilirubin 0.10, AST 216 H, ALT 44, Alkaline Phosphatase 130 H, Total Protein 5.2 L, Albumin 1.9 L, Globulin 3.3 06/03/18 06:39: POC Glucose 250 H 06/03/18 06:55: APTT 118.5 H* 06/03/18 08:00: Blood Type AB POSITIVE, Antibody Screen NEGATIVE 06/03/18 08:00: MRSA (PCR) Pending Current Medications Acetaminophen (Tylenol Liquid) 650 mg GT Q6H PRN PRN PRN Reason: Fever, headache, pain Atorvastatin Calcium (Lipitor) 10 mg GT QHS [facility] Chlorhexidine Gluconate () 15 ml PO BID [facility] Last Admin: 06/03/18 08:21 Dose: 15 ml Chlorhexidine Gluconate () 1 each TOPICAL DAILY [facility] Last Admin: 06/03/18 06:25 Dose: 1 each Duloxetine HCl (Cymbalta) 30 mg PO DAILY [facility] Last Admin: 06/03/18 08:21 Dose: 30 mg Heparin Sodium (Porcine) (Heparin Na) 0 unit IV UD PRN; Protocol Sodium Chloride () 250 mls @ 15 mls/hr IV .[id number] PRN PRN Reason: SALINE FLUSH Last Admin: 06/03/18 02:30 Dose: 15 mls/hr Propofol (Diprivan) 1,000 mg in 100 mls @ 4.596 mls/hr CONT INF .Q12H [facility] Last Admin: 06/02/18 22:22 Dose: 4.596 mls/hr Piperacillin Sod/Tazobactam (Sod 3.375 gm/ Sodium Chloride) 50 mls @ 12.5 mls/hr IV Q8 [facility] Last Admin: 06/03/18 06:25 Dose: 12.5 mls/hr Vancomycin IV Pharmacy to Dose (1 ea/ Sodium Chloride) 500 mls @ 250 mls/hr IV X1 PRN; Protocol PRN Reason: Rx to Dose Fentanyl () 100 mls @ 2.5 mls/hr IV .Q40H [facility] Last Admin: 06/03/18 00:17 Dose: 2.5 mls/hr Heparin Sodium/Dextrose () 25,000 units in 250 mls @ 11 mls/hr IV .[id number] [facility]; Protocol Last Admin: 06/03/18 01:00 Dose: 11 mls/hr Amiodarone HCl 360 mg/ (Dextrose) 200 mls @ 16.67 mls/hr CONT INF .Q12H1M [facility] Stop: 06/04/18 00:34 Last Admin: 06/03/18 07:29 Dose: 16.67 mls/hr Vancomycin HCl (Vancomycin) 1,000 mg in 200 mls @ 200 mls/hr IV Q24H [facility] Enteral Nutritional Formula (Vital Af 1.2 Abilio Liquid) 1,000 mls @ 75 mls/hr GT .[id number] [facility] Insulin Human Lispro (Humalog Kwikpen (Bkc)) 0 unit SC Q6 [facility]; Protocol Magnesium Hydroxide (Milk Of Magnesia) 30 ml GT DAILY PRN PRN Reason: Constipation Methylprednisolone (Solu-Medrol) 40 mg IV Q8 [facility] Last Admin: 06/03/18 06:26 Dose: 40 mg Ondansetron HCl (Zofran) 4 mg IV Q6H PRN PRN PRN Reason: NAUSEA/VOMITING Sodium Chloride () 5 - 15 ml IV UD PRN PRN Reason: SALINE FLUSH Last Admin: 06/03/18 01:54 Dose: 10 ml Medical Necessity - Tobacco Use Smoking Status: Former smoker Assessment/Plan 77-year-old male with past medical history of metastatic prostate cancer to the bone, history of aortic valve replacement with bioprosthetic valve, CKD, hypertension, BPH admitted on 06/02/18 with altered mental status initially managed as sepsis secondary to acute cystitis. Patient was found to have gone into respiratory failure resulting in intubation and transferred to the ICU 1. Acute respiratory failure, unclear etiology, initial chest x-ray was negative for infiltrate, VQ scan shows low probability for PE Subsequent chest x-ray and chest CT without contrast showed bilateral pleural effusions 2D echo shows EF of 65%, stage 1 diastolic dysfunction, no acute abnormality Patient is intubated, mechanical ventilator, landscape maintenance internship consulted, will continue per recommendations 2. A. fib/A. flutter with RVR, history of paroxysmal atrial fibrillation, was on Eliquis and metoprolol, started on amiodarone, heart rate remains uncontrolled, blood pressure remains borderline, Cardiology consult, continue with amiodarone drip, will add metoprolol 25mg GT bid with holding 3. Anemia, microchromic anemia, Hb is 7.7, drop from 9.2 is likely secondary to hemodilution, 4. Acute metabolic encephalopathy secondary to sepsis, appears to have improved yesterday, now intubated 5. Indeterminate troponins, likely secondary to sepsis and respiratory failure, peaked at 0.099, dropped to 0.084 6. Mild rhabdomyolysis, CK was 349 on admission, will recheck today 7. CKD stage 3, Cr is about his baseline, will be monitoring 8. Hypertension, relatively hypotension, started on metoprolol 12.5mg GT BID, will continue to monitor 9. Metastatic prostate cancer with metastases to the bone, never treated 10. s/p aortic valve replacement with bioprosthetic valve 11. BPH s/p crump catheter 12. DVT PPx- Heparin SC Code Visit Inpatient E&M: [id number] Subs Hosp L3
[2018-06-03 10:27] LABS: Pathologist Review Reviewed
[2018-06-03 10:32] LABS: Pathologist Review Reviewed
[2018-06-03 10:33] LABS: M R Staph aureus DNA By PCR Negative (Negative); Probe Check PASS; Specimen Processing Control PASS
[2018-06-03] MEDS: Vital AF 1.2 Cal Liquid 1,000 ML 75 ML GT (11:09)
[2018-06-03] MEDS: Propofol 10MG/Ml 1,000 MG/100 ML Bottle 4.596 MG CONT INF (11:10)
[2018-06-03 11:39] LABS: Hematocrit 23.6 % (40-54); Hemoglobin 7.3 g/dl (13.0-16.5)
[2018-06-03 12:00] LABS: Bedside Glucose 273 mg/dL (70-110)
[2018-06-03 12:07] LABS: BNP,B-Type NATRIURETIC PEPTIDE 121.7 pg/mL (0-100)
[2018-06-03 12:39] LABS: CPK Total, Creatine Kinase 227 U/L (39-308)
[2018-06-03] MEDS: Acetaminophen 650 MG/20 ML UDC GT ×2 (13:58→21:41)
[2018-06-03 14:23] LABS: Partial Thromboplast Time 67.9 Seconds (24.1-36.2)
--- NOTE | 2018-06-03 15:11 | PCM.CONS.C ---
Problem List (1) Atrial fibrillation and flutter Status: Acute (2) History of aortic valve replacement with bioprosthetic valve Status: Chronic Comment: Yumi GONZALEZ Tissue Heart Valve Serial # [id number] Model TFGT- 25A @ [facility] (3) Dyslipidemia Status: Chronic (4) Hypertension Status: Chronic Qualifiers: (5) Renal insufficiency Status: Chronic (6) Fever Status: Acute (7) Anemia Status: Acute (8) Thrombocytopenia Status: Acute (9) Prostate cancer metastatic to bone Status: Chronic Reason for Consult Date of Consultation: 06/03/18 History of Present Illness: The patient is a 77 year old male with a past cardiovascular history which is included underlying paroxysmal atrial fibrillation and aortic valve disease status post a bioprosthetic aortic valve superimposed upon hypertension, chronic renal insufficiency, a diagnosis of prostate carcinoma with metastatic disease, who now was referred for evaluation of atrial fibrillation/flutter with rapid ventricular response in the setting of fever, anemia, and thrombocytopenia. He has been undergoing evaluation and care by internal medicine and pulmonology/critical care medicine for his underlying concerns of fever with underlying concerns of an infectious etiology-yet diagnosed other than the potential for a possible UTI superimposed upon findings of anemia and thrombocytopenia. During this time he has been noted to alter his rhythm from sinus rhythm to atrial fibrillation with RVR and subsequently atrial flutter with a rapid ventricular response. He is also noted based upon declining respiratory status to require mechanical intubation/ventilation. He is currently in the ICU sedated on mechanical intubation/ventilation. He is noted to be in atrial flutter at this time. He is also noted be somewhat hypotensive with systolic blood pressure between 90 and 100 mmHg. He has been undergoing evaluation with laboratory studies and body fluid cultures which with respect to blood cultures have been negative (reportedly obtained prior to any antibiotic therapy). He has had radiologic studies which is raise concerns about the possibility of underlying atelectatic changes with question of any type of infiltrative changes. He had a transthoracic echocardiogram performed. His left ventricle was reported as normal with respect to systolic function with an LVEF of 65% with findings of mild MR and a stable bioprosthetic aortic valve apparatus with mild to moderate TR and an estimated RV systolic pressure of 40 mmHg. He has been receiving medical management which has included IV antibiotics, IV heparin, and IV amiodarone. He has not been receiving rate limiting medications based upon his underlying hypotension. He has reportedly been on oral anticoagulant therapy with apixaban/Eliquis, however, based upon a telephone conversation between Dr. Nicholson and the patient's son, the patient may have only been taking half his prescribed dose based upon his concerning of running out of his current supply of medications in order to make his medication supply last longer. Of note his original presentation was due to found at home lethargic and with altered mental status. There was no report of any acute cardiovascular event. He has undergone evaluation which is included cardiac enzymes which have noted elevated CPK levels but compatible with rhabdomyolysis as well as indeterminate troponin I levels. His original electric cardiogram demonstrated what appeared to be sinus rhythm/sinus tachycardia with PACs with nonspecific ST and T wave changes. Past Medical History Allergies/Adverse Reactions: Allergies albuterol Allergy (Verified 06/02/18 01:14) Unknown clonazepam Allergy (Verified 06/02/18 01:14) Unknown ibuprofen Allergy (Verified 06/02/18 01:14) Unknown ipratropium Allergy (Verified 06/02/18 01:14) Unknown aspirin Adverse Reaction (Verified 06/02/18 01:14) Vomiting pt states he vomits blood Home Medications: Ambulatory Orders Medication Instructions Recorded ALPRAZolam [Xanax] 0.5 mg PO 4X/DAY PRN 10/24/15 Ascorbic Acid [Vitamin C] 1,000 mg PO DAILY 10/24/15 Fosinopril Sodium [Monopril] 5 mg PO DAILY 10/24/15 Garlic 1 mg PO DAILY 10/24/15 Metformin HCl [Glucophage] 1,000 mg PO DAILY 10/24/15 Multivitamin [Daily Multiple 1 ea PO DAILY 10/24/15 Vitamin] [place]-3 Fatty Acids/Fish Oil 1,000 mg PO DAILY 10/24/15 [[place] 3 1,000 mg Softgel] Vitamin B Complex 1 ea PO DAILY 10/24/15 Vitamin E 1,000 unit PO DAILY 10/24/15 Cyanocobalamin (Vitamin B-12) 5,000 mcg SL BID 09/18/17 [Vitamin B-12] Methylsulfonylmethane [MSM] 1,500 mg PO BID 09/18/17 Niacinamide 500 mg PO DAILY 09/18/17 Pyridoxine HCl [Vitamin B6] 100 mg PO BID 09/18/17 Sodium Chloride 1 gm PO DAILY 09/18/17 Ubidecarenone [Co Q-10] 200 mg PO DAILY 09/18/17 Vanadyl Sulfate 10 mg PO DAILY 09/18/17 furosemide 40 mg tablet 40 mg PO QDAY #90 tab 09/25/17 simvastatin 40 mg tablet 20 mg PO QHS 09/25/17 Cholecalciferol (VIT D3) [Vitamin 1,000 unit PO DAILY 10/29/17 D3] Ferrous Sulfate [Iron] 325 mg PO DAILY 10/29/17 Apixaban [Eliquis] 5 mg PO BID 03/14/18 Duloxetine Hcl [Cymbalta] 30 mg pe PO DAILY 03/14/18 Acetaminophen [Tylenol Extra 500 mg PO Q4H PRN PRN #20 tablet 03/19/18 Strength] Lisinopril [Zestril] mg PO DAILY 03/19/18 Metoprolol Tartrate [Lopressor 50 mg PO BID 06/02/18 (beta lisa)] Past Medical History (Chronic Problems): Chronic Problems (Last Updated 06/02/18 @ 03:12 by Sally Cm MD) Renal insufficiency (Chronic) Prostate cancer metastatic to bone (Chronic) Stage III chronic kidney disease (Chronic) Dyslipidemia (Chronic) Paroxysmal atrial fibrillation (Chronic) History of aortic valve replacement with bioprosthetic valve (Chronic ~11/12/16) Trifecta GT Tissue Heart Valve Serial # [id number] Model TFGT- 25A @ [facility] BPH with urinary obstruction (Chronic) Hypertension (Chronic) Surgical History: cataract - bilateral, - - aortic valve replacement October 2016, 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 - *Family History Sibling Family History: Family History (Last Reviewed 09/25/17 @ 16:11 by Lucas Glasgow MD) Sister Heart disease Brother Cancer History Items: Heart Disease Maternal Family History: Family History (Last Reviewed 09/25/17 @ 16:11 by Lucas Glasgow MD) Sister Heart disease Brother Cancer History Items: No pertinent history Paternal Family History: Family History (Last Reviewed 09/25/17 @ 16:11 by Lucas Glasgow MD) Sister Heart disease Brother Cancer History Items: No pertinent history Lives: Alone Smoking Status: Former smoker Alcohol: None, Rare Review of Systems - Review of Systems General: Reports: Fever. Denies: Fatigue, Night Sweats Subjectve: This is a 77-year-old white male who is mechanically intubated and ventilated and appears somewhat cachectic appearing. Objective: Vital Signs Temp Pulse Resp BP Pulse Ox 101.1 F H 138 H 20 H 97/48 L 99 06/03/18 14:00 06/03/18 14:00 06/03/18 14:00 06/03/18 14:00 06/03/18 14:00 Oxygen Flow Rate (L/min) 2 Oxygen Delivery Method Mechanical Ventilator Weight: 167 lb 15.876 oz Body Mass Index (BMI) 27.1 Finger Stick Blood Glucose 95 Intake and Output for Last 24 Hours 06/01/18 06/02/18 06/03/18 23:59 23:59 23:59 Intake Total 1435 / 1435 1611 / 1611 Output Total 500 / 500 975 / 975 Balance 935 / 935 636 / 636 General: Ill Appearing Lungs: - - Upper airway sounds Cardiovascular: Irregular Rhythm, Normal S1, Normal S2 Abdomen: Bowel Sounds Present, Soft Extremities: Trace RLE Edema, Trace LLE Edema 06/02/18 22:40: Triglycerides 189 06/02/18 23:38: pH 7.44, Bicarbonate Actual 21.0 L, POC Total CO2 22, Base Excess -3 L, O2 Saturation 100 H, ABG pCO2 30.9 L, ABG pO2 170 H, Sage Test POS 06/03/18 00:10: Troponin I 0.104 H 06/03/18 02:30: Troponin I 0.099 H 06/03/18 06:15: WBC 7.8, RBC 2.61 L, Hgb 7.7 L, Hct 24.7 L, MCV 94.6 H, MCH 29.5, MCHC 31.2 L, RDW 15.2 H, RDW Differential 51.6 H, Plt Count 80 L, MPV 11.1, Immature Gran % (Auto) 2.100 H, Neut % (Auto) 62.6, Lymph % (Auto) 28.1, [place] % (Auto) 6.6, Eos % (Auto) 0.1, Baso % (Auto) 0.5, Absolute Neuts (auto) 4.9, Total Counted Not Reportable, Nucleated RBC % 2.9 06/03/18 06:15: Sodium 146 H, Potassium 4.1, Chloride 112 H, Carbon Dioxide 21.0, Anion Gap 13, BUN 84 H, Creatinine 1.93 H, Est GFR (MDRD) Af Amer 43 L, Est GFR (MDRD) Non-Af 36 L, BUN/Creatinine Ratio 43.5 H, Glucose 284 H, Calcium 8.3 L 06/03/18 06:15: Troponin I 0.084 H 06/03/18 06:15: Total Bilirubin 0.30, Direct Bilirubin 0.10 06/03/18 06:15: B-Natriuretic Peptide 121.7 H 06/03/18 06:55: APTT 118.5 H* 06/03/18 11:15: Hgb 7.3 L, Hct 23.6 L 06/03/18 14:05: APTT 67.9 H Rhythm: As noted above EKG: As noted above ECHO: As above Stress Test: [facility]: 2016: Pharmacologic stress nuclear imaging study: Reported as negative for evidence of stress-induced myocardial ischemia CXR: As noted above Assessment/Plan 1. Atrial fibrillation/flutter The patient has demonstrated evidence of atrial fibrillation/flutter. He has a history of paroxysmal atrial fibrillation. He has been on rate control therapy and anticoagulant therapy. However at home he may have been altering his anticoagulant therapy as noted above. Here he has been placed on IV heparin. Is also been placed on medical therapy with IV amiodarone to attempt to assist with rate and rhythm control. He has not received rate limiting medications in the form of beta-blockers or calcium channel antagonist based upon his low blood pressure. He may be a candidate for a one-time dose of digitalis therapy. His atrial dysrhythmia may be partially because of a combination of his age, underlying cardiovascular disease, but also related to his underlying fever and concerns of acute infectious etiology associated with his other multiple medical conditions. At the present time he will continue to be monitored. He will continue an attempt at rate control therapy as best as possible. He will continue his anticoagulant therapy. He will continue his antiarrhythmic therapy. Depending upon his clinical course, if he demonstrates no improvement and/or worsening with respect to his rhythm and associated vital signs, etc. he may need an attempt at synchronized biphasic DC cardioversion. 2. Status post aortic valve replacement: Bioprosthetic He does have an underlying bioprosthetic aortic valve. There was no comment on any concerns with respect to his transthoracic echocardiogram. However, based upon his underlying clinical scenario with his fevers, concerns of a possible sepsis type syndrome, and if no definitive etiology for his infectious related events, he may need to be considered for further evaluation of his aortic valve for the possibility of infectious endocarditis with a transthoracic echocardiogram. 3. Hyperlipidemia He can continue medical management as deemed appropriate and tolerated. 4. Hypertension At the present time his blood pressure is low. He has rate limiting medications that may affect blood pressure adversely are on hold. Any other antihypertensive type agents are on hold. Depending upon his course he may need vasopressor agents to support his blood pressure. 5. Renal insufficiency He does have a history of renal insufficiency. It may be exacerbated if he is truly intravascularly depleted based upon his situation at home being found down, lethargic, and with altered mental status. He will continue to receive IV fluids as deemed appropriate by the ICU staff. His renal function will be followed. 6. Anemia He is anemic. The etiology is unclear at this time. Based upon his cardiovascular history he may need PRBCs to increase his oxygen carrying capacity. 7. Thrombocytopenia He has thrombocytopenia. This may be related to an underlying sepsis syndrome. However the same time there is concern about the addition of IV heparin. Depending upon his platelet counts his IV heparin may have to be discontinued. If that is the case and he is not a candidate for other agents such as Lovenox based upon his renal insufficiency or oral anticoagulants that he may need to be considered with alternative agent such as bivalirudin. 8. Prostate carcinoma with metastatic disease He has a reported prostate carcinoma with metastatic disease. According to the ICU staff he has declined additional evaluation and care in the past. Comment: The patient's case was discussed at length with Dr. Nicholson. Dr. Nicholson has been in communication with the patient's son regarding his ongoing evaluation and care. This note was generated with [employer]ation software. It may contain incorrect words, spelling, and punctuation that were not noted in checking the note before signing.
[2018-06-03] MEDS: Digoxin 250 MCG/ML Ampul 500 MCG IV (15:53)
[2018-06-03 15:57] LABS: Hematocrit 21.8 % (40-54); Hemoglobin 6.8 g/dl (13.0-16.5)
[2018-06-03 17:50] LABS: Bedside Glucose 286 mg/dL (70-110)
[2018-06-03 19:58] LABS: Partial Thromboplast Time 83.5 Seconds (24.1-36.2)
[2018-06-03] MEDS: Metoprolol Tartrate 25 MG Tablet 12.5 MG GT (21:38)
[2018-06-03] MEDS: Atorvastatin Calcium 10 MG Tablet GT (21:38)
[2018-06-04] VITALS (39 sets, daily range): BP systolic 105–133; BP diastolic 41–60; PULSE 86–112; RESP 14–33; TEMP 37.9–38.2; O2SAT 97–99
[2018-06-04 00:41] LABS: Bedside Glucose 360 mg/dL (70-110)
[2018-06-04 00:53] LABS: Hematocrit 28.1 % (40-54); Hemoglobin 9.2 g/dl (13.0-16.5)
[2018-06-04] MEDS: Insulin Lispro 100 UNIT/ML INSULN.PEN SC ×5 (00:59→23:23)
[2018-06-04] MEDS: Vancomycin IV 1,000 MG/200 ML BAG 200 MG IV (01:55)
[2018-06-04 03:51] LABS: Hematocrit 27.4 % (40-54); Hemoglobin 8.8 g/dl (13.0-16.5); Mean Corp Hgb Conc 32.1 g/gl (32-36); Mean Corpuscular Hgb 29.1 pg (27.0-32.0); Mean Corpuscular Volume 90.7 fL (80-94); Mean Platelet Vol. 10.5 fl (6.2-12.0); Platelet Count 74 K/mm3 (150-450); RBC Distribution Width CV 16.7 % (11.6-14.6); RBC Distribution Width SD 54.4 fl (35.1-43.9); Red Blood Count 3.02 M/mm3 (4.6-6.2); White Blood Count 10.2 K/mm3 (4.4-11.0)
[2018-06-04 03:52] LABS: Differential Indicated MANUAL DIFF; NRBC Flagged by Analyzer 4.4 % (0-5); POSITIVE COUNT YES; POSITIVE DIFFERENTIAL NO; POSITIVE MORPHOLOGY YES
[2018-06-04 03:53] LABS: Absolute Nucleated RBC Count 0.45 10^3/uL (0-5)
[2018-06-04 03:58] LABS: Eosinophil 1 % (0-5); Lymphocyte 16 % (19-41); Metamyelocyte 4 % (0-1); Monocyte 2 % (0-10); Myelocyte 1 (0-0); Neutrophil-Band 7 % (0-5); Neutrophil-Segmented 69 % (47-70); Total Cells Counted 100 (MANUAL DIFF)
[2018-06-04 03:59] LABS: Anion Gap 14 (5-15); BUN 102 mg/dL (7-18); BUN/Creat Ratio 53.1 RATIO (10-20); Calcium,Total 8.2 mg/dL (8.5-10.1); Chloride 114 mmol/L (98-107); Creatinine, Serum 1.92 mg/dL (0.70-1.30); EST Glomerular Filtration Rate 36 mL/min (>60); Est Glom Filt Rate - Afr Amer 44 mL/min (>60); Estimated Creatinine Clearance 28.61 ml/min; Glucose 496 mg/dL (74-106); Potassium 4.2 mmol/L (3.5-5.1); Sodium Level 145 mmol/L (136-145)
[2018-06-04 04:01] LABS: Absolute Lymphocyte Count 1.63 X10^3/ul (0.83-4.51); Absolute Neutrophil Count 8.3 X10^3/uL (2.0-7.7); Lymphocyte # 1.63 X10^3/ul (4.0); Neutrophil # 8.26 X10^3/uL (2.7-7.7)
[2018-06-04 04:02] LABS: Platelet Estimate MOD DEC (ADEQ); Polychromasia 1+
[2018-06-04 04:03] LABS: Anisocytosis 1+
[2018-06-04 04:04] LABS: Crenated RBC RARE; Ovalocyte RARE; Spherocyte RARE
--- NOTE | 2018-06-04 05:55 | EKG12_ITS ---
Test Reason : RHYTHM CHANGE Blood Pressure : / mmHG Vent. Rate : 179 BPM Atrial Rate : 144 BPM P-R Int : 000 ms QRS Dur : 072 ms QT Int : 248 ms P-R-T Axes : 000 011 239 degrees QTc Int : 428 ms Poor data quality, interpretation may be adversely affected Atrial fibrillation with premature ventricular or aberrantly conducted complexes ST & T wave abnormality, consider inferolateral ischemia Abnormal ECG When compared with ECG of 02-JUN-2018 05:39, MANUAL COMPARISON REQUIRED, DATA IS UNCONFIRMED Confirmed by SHUKRI HOOPER ([id number]), multimedia editor LOLA RODGERS ([id number] on 06/06/2018 1:42:09 PM Referred By: Sally Cm Confirmed By:SHUKRI HOOPER
[2018-06-04] MEDS: CHLORHEXIDINE GLUC 2% CLOTH 1 EACH TOWELETTE TOPICAL (06:30)
[2018-06-04] MEDS: HEPARIN/D5w 25,000 UNITS 25,000 UNITS/250 ML IV.SOLN. 11 UNITS IV (06:30)
[2018-06-04 06:40] LABS: Bedside Glucose 383 mg/dL (70-110)
--- NOTE | 2018-06-04 06:50 | PCM.PN.INT ---
Subjective: The patient was seen and examined at the bedside this morning. Events from the last 24 hours have been reviewed. The patient remains febrile with a T-max of 38.4 ?C over the last 24 hours. The patient was transfused 2 units packed red blood cells overnight. His posttransfusion hemoglobin was noted to be 9.2 g/dL. On recheck this morning, he was noted to be 8.8 g/dL. He remains on continuous amiodarone, along with vancomycin and Zosyn. The patient did convert to normal sinus rhythm overnight. He is currently hemodynamically stable with improved blood pressure parameters overnight. His FiO2 requirement remains minimal at 30%. Although the patient's creatinine remained stable at 1.92, his BUN has increased to greater than 100 this morning. Serum bicarbonate is low at 17.0. The patient's glucose is also increased as well. His IV steroids were discontinued this morning. He is currently documented to be overall net +4.1 L for the admission. Objective: The patient's most recent lab work, culture data and imaging studies have all been personally reviewed. Surface echocardiogram revealed normal LV size and function with an ejection fraction of 65% and stage I diastolic dysfunction. Pulmonary artery systolic pressure was estimated to be 40 mmHg. VQ scan completed on June 02 was noted to be a low quality VQ scan, but was reported to be most consistent with low probability for PE. CT chest dated June 02 revealed small bilateral pleural effusions without focal infiltrates. General: Alert, - - Chronically ill in appearance. Remains intubated mechanically ventilated. HEENT: Atraumatic, PERRLA, Normocephalic Oral: Moist Mucosa, - - Endotracheal and OG tubes currently in place. Neck: Supple, No Nodes, Trachea Midline Lungs: No rhonchi, No wheeze, No rales, Diminished Cardiovascular: Regular rate, Regular Rhythm, Normal S1, Normal S2, Murmur Abdomen: Bowel Sounds Present, Soft, Non Tender Extremities: No clubbing, No cyanosis, No edema Skin: - - No significant change from previous. Musculoskeletal: No Tenderness to Palpation of Joints or Extremities Lymphatic: No Cervical, Supraclavicular, or Inguinal Adenopathy Neurological: - - No focal neurological deficits. Currently awake on the ventilator. RASS of +1 noted. Vital Signs Temp Pulse Resp BP Pulse Ox 38.1 C H 104 H 29 H 133/60 H 98 06/04/18 05:00 06/04/18 06:00 06/04/18 06:00 06/04/18 06:00 06/04/18 06:00 Oxygen Flow Rate (L/min) 2 Oxygen Delivery Method Room Air Weight: 172 lb 13.478 oz Body Mass Index (BMI) 27.1 Finger Stick Blood Glucose 95 Intake and Output for Last 24 Hours 06/02/18 06/03/18 06/04/18 23:59 23:59 23:59 Intake Total 1435 / 1435 2523 / 2523 2290 / 2290 Output Total 500 / 500 1125 / 1125 450 / 450 Balance 935 / 935 1398 / 1398 1840 / 1840 Labs (Last 48 Hours) 06/02/18 06/02/18 06/02/18 01:10 06:49 07:00 WBC RBC Hgb Hct MCV MCH MCHC RDW RDW Differential Plt Count MPV Immature Gran % (Auto) Neut % (Auto) Lymph % (Auto) [place] % (Auto) Eos % (Auto) Baso % (Auto) Absolute Neuts (auto) Absolute Lymphs (auto) Total Counted Neutrophils % (Manual) Band Neutrophils % Lymphocytes % (Manual) Monocytes % (Manual) Eosinophils % (Manual) Metamyelocytes % Myelocytes % Nucleated RBC % Differential Comment Diff Path Review Reviewed Platelet Estimate RBC Morphology Polychromasia Anisocytosis Spherocytes Ovalocytes Absolute Retic PT INR APTT D-Dimer Quant (PE/DVT) Specimen Type Sample Site pH Bicarbonate Actual POC Total CO2 Base Excess O2 Saturation O2 % ABG pCO2 ABG pO2 Sage Test Respiration Rate O2 Delivery Device Minute Volume Vent Mode Tidal Volume POC PEEP Blood Gas Notified Whom Blood Gas Notified Time Sodium Potassium Chloride Carbon Dioxide Anion Gap BUN Creatinine Estim Creat Clear Calc Est GFR (MDRD) Af Amer Est GFR (MDRD) Non-Af BUN/Creatinine Ratio Glucose Calcium Total Bilirubin Direct Bilirubin AST ALT Alkaline Phosphatase Total Creatine Kinase Troponin I 0.073 H B-Natriuretic Peptide Total Protein Albumin Globulin Albumin/Globulin Ratio Triglycerides MRSA (PCR) POC Glucose 214 H Blood Type Antibody Screen Crossmatch 06/02/18 06/02/18 06/02/18 07:00 07:00 11:10 WBC 8.7 8.8 RBC 2.75 L 2.69 L Hgb 8.1 L 7.9 L Hct 25.8 L 25.0 L MCV 93.8 92.9 MCH 29.5 29.4 MCHC 31.4 L 31.6 L RDW 14.9 H 15.0 H RDW Differential 50.9 H 51.0 H Plt Count 102 L 93 L MPV 10.8 10.7 Immature Gran % (Auto) 1.300 H 1.400 H Neut % (Auto) 69.4 66.4 Lymph % (Auto) 18.0 L 21.6 [place] % (Auto) 11.1 H 10.3 H Eos % (Auto) 0.1 0.1 Baso % (Auto) 0.1 0.2 Absolute Neuts (auto) 6.0 5.9 Absolute Lymphs (auto) 1.57 1.90 Total Counted Not Reportable Not Reportable Neutrophils % (Manual) Band Neutrophils % Lymphocytes % (Manual) Monocytes % (Manual) Eosinophils % (Manual) Metamyelocytes % Myelocytes % Nucleated RBC % 1.6 Differential Comment Diff Path Review Reviewed Platelet Estimate MOD DEC RBC Morphology Polychromasia RARE Anisocytosis Spherocytes Ovalocytes Absolute Retic 0.15 PT INR APTT D-Dimer Quant (PE/DVT) Specimen Type Sample Site pH Bicarbonate Actual POC Total CO2 Base Excess O2 Saturation O2 % ABG pCO2 ABG pO2 Sage Test Respiration Rate O2 Delivery Device Minute Volume Vent Mode Tidal Volume POC PEEP Blood Gas Notified Whom Blood Gas Notified Time Sodium 141 Potassium 4.0 Chloride 111 H Carbon Dioxide 21.0 Anion Gap 9 BUN 68 H Creatinine 1.75 H Estim Creat Clear Calc 31.39 Est GFR (MDRD) Af Amer 49 L Est GFR (MDRD) Non-Af 40 L BUN/Creatinine Ratio 38.9 H Glucose 224 H Calcium 8.2 L Total Bilirubin Direct Bilirubin AST ALT Alkaline Phosphatase Total Creatine Kinase Troponin I B-Natriuretic Peptide Total Protein Albumin Globulin Albumin/Globulin Ratio Triglycerides MRSA (PCR) POC Glucose Blood Type Antibody Screen Crossmatch 06/02/18 06/02/18 06/02/18 11:10 11:10 11:10 WBC RBC Hgb Hct MCV MCH MCHC RDW RDW Differential Plt Count MPV Immature Gran % (Auto) Neut % (Auto) Lymph % (Auto) [place] % (Auto) Eos % (Auto) Baso % (Auto) Absolute Neuts (auto) Absolute Lymphs (auto) Total Counted Neutrophils % (Manual) Band Neutrophils % Lymphocytes % (Manual) Monocytes % (Manual) Eosinophils % (Manual) Metamyelocytes % Myelocytes % Nucleated RBC % Differential Comment Diff Path Review Platelet Estimate RBC Morphology Polychromasia Anisocytosis Spherocytes Ovalocytes Absolute Retic PT 23.5 H INR 2.1 APTT D-Dimer Quant (PE/DVT) Cancelled Specimen Type Sample Site pH Bicarbonate Actual POC Total CO2 Base Excess O2 Saturation O2 % ABG pCO2 ABG pO2 Sage Test Respiration Rate O2 Delivery Device Minute Volume Vent Mode Tidal Volume POC PEEP Blood Gas Notified Whom Blood Gas Notified Time Sodium 144 Potassium 4.1 Chloride 111 H Carbon Dioxide 20.0 L Anion Gap 13 BUN 70 H Creatinine 1.86 H Estim Creat Clear Calc 29.54 Est GFR (MDRD) Af Amer 45 L Est GFR (MDRD) Non-Af 38 L BUN/Creatinine Ratio 37.6 H Glucose 231 H Calcium 8.3 L Total Bilirubin 0.20 Direct Bilirubin AST 156 H ALT 28 Alkaline Phosphatase 155 H Total Creatine Kinase 386 H Troponin I B-Natriuretic Peptide Total Protein 5.4 L Albumin 1.9 L Globulin 3.5 Albumin/Globulin Ratio 0.5 L Triglycerides MRSA (PCR) POC Glucose Blood Type Antibody Screen Crossmatch 06/02/18 06/02/18 06/02/18 11:38 13:00 17:28 WBC RBC Hgb Hct MCV MCH MCHC RDW RDW Differential Plt Count MPV Immature Gran % (Auto) Neut % (Auto) Lymph % (Auto) [place] % (Auto) Eos % (Auto) Baso % (Auto) Absolute Neuts (auto) Absolute Lymphs (auto) Total Counted Neutrophils % (Manual) Band Neutrophils % Lymphocytes % (Manual) Monocytes % (Manual) Eosinophils % (Manual) Metamyelocytes % Myelocytes % Nucleated RBC % Differential Comment Diff Path Review Platelet Estimate RBC Morphology Polychromasia Anisocytosis Spherocytes Ovalocytes Absolute Retic PT INR APTT D-Dimer Quant (PE/DVT) > 20.00 H* Specimen Type Sample Site pH Bicarbonate Actual POC Total CO2 Base Excess O2 Saturation O2 % ABG pCO2 ABG pO2 Sage Test Respiration Rate O2 Delivery Device Minute Volume Vent Mode Tidal Volume POC PEEP Blood Gas Notified Whom Blood Gas Notified Time Sodium Potassium Chloride Carbon Dioxide Anion Gap BUN Creatinine Estim Creat Clear Calc Est GFR (MDRD) Af Amer Est GFR (MDRD) Non-Af BUN/Creatinine Ratio Glucose Calcium Total Bilirubin Direct Bilirubin AST ALT Alkaline Phosphatase Total Creatine Kinase Troponin I B-Natriuretic Peptide Total Protein Albumin Globulin Albumin/Globulin Ratio Triglycerides MRSA (PCR) POC Glucose 221 H 242 H Blood Type Antibody Screen Crossmatch 06/02/18 06/02/18 06/02/18 22:40 22:48 23:38 WBC RBC Hgb Hct MCV MCH MCHC RDW RDW Differential Plt Count MPV Immature Gran % (Auto) Neut % (Auto) Lymph % (Auto) [place] % (Auto) Eos % (Auto) Baso % (Auto) Absolute Neuts (auto) Absolute Lymphs (auto) Total Counted Neutrophils % (Manual) Band Neutrophils % Lymphocytes % (Manual) Monocytes % (Manual) Eosinophils % (Manual) Metamyelocytes % Myelocytes % Nucleated RBC % Differential Comment Diff Path Review Platelet Estimate RBC Morphology Polychromasia Anisocytosis Spherocytes Ovalocytes Absolute Retic PT INR APTT D-Dimer Quant (PE/DVT) Specimen Type ART Sample Site R Radial pH 7.44 Bicarbonate Actual 21.0 L POC Total CO2 22 Base Excess -3 L O2 Saturation 100 H O2 % 50 ABG pCO2 30.9 L ABG pO2 170 H Sage Test POS Respiration Rate 14 O2 Delivery Device Vent Minute Volume 8.00 Vent Mode A-C Tidal Volume 450 POC PEEP 5 Blood Gas Notified Whom HOSP Blood Gas Notified Time 2328 Sodium Potassium Chloride Carbon Dioxide Anion Gap BUN Creatinine Estim Creat Clear Calc Est GFR (MDRD) Af Amer Est GFR (MDRD) Non-Af BUN/Creatinine Ratio Glucose Calcium Total Bilirubin Direct Bilirubin AST ALT Alkaline Phosphatase Total Creatine Kinase 349 H Troponin I B-Natriuretic Peptide Total Protein Albumin Globulin Albumin/Globulin Ratio Triglycerides 189 MRSA (PCR) POC Glucose 207 H Blood Type Antibody Screen Crossmatch 06/03/18 06/03/18 06/03/18 00:10 01:53 02:30 WBC RBC Hgb Hct MCV MCH MCHC RDW RDW Differential Plt Count MPV Immature Gran % (Auto) Neut % (Auto) Lymph % (Auto) [place] % (Auto) Eos % (Auto) Baso % (Auto) Absolute Neuts (auto) Absolute Lymphs (auto) Total Counted Neutrophils % (Manual) Band Neutrophils % Lymphocytes % (Manual) Monocytes % (Manual) Eosinophils % (Manual) Metamyelocytes % Myelocytes % Nucleated RBC % Differential Comment Diff Path Review Platelet Estimate RBC Morphology Polychromasia Anisocytosis Spherocytes Ovalocytes Absolute Retic PT INR APTT D-Dimer Quant (PE/DVT) Specimen Type Sample Site pH Bicarbonate Actual POC Total CO2 Base Excess O2 Saturation O2 % ABG pCO2 ABG pO2 Sage Test Respiration Rate O2 Delivery Device Minute Volume Vent Mode Tidal Volume POC PEEP Blood Gas Notified Whom Blood Gas Notified Time Sodium Potassium Chloride Carbon Dioxide Anion Gap BUN Creatinine Estim Creat Clear Calc Est GFR (MDRD) Af Amer Est GFR (MDRD) Non-Af BUN/Creatinine Ratio Glucose Calcium Total Bilirubin Direct Bilirubin AST ALT Alkaline Phosphatase Total Creatine Kinase Troponin I 0.104 H 0.099 H B-Natriuretic Peptide Total Protein Albumin Globulin Albumin/Globulin Ratio Triglycerides MRSA (PCR) POC Glucose 240 H Blood Type Antibody Screen Crossmatch 06/03/18 06/03/18 06/03/18 06:15 06:15 06:15 WBC 7.8 RBC 2.61 L Hgb 7.7 L Hct 24.7 L MCV 94.6 H MCH 29.5 MCHC 31.2 L RDW 15.2 H RDW Differential 51.6 H Plt Count 80 L MPV 11.1 Immature Gran % (Auto) 2.100 H Neut % (Auto) 62.6 Lymph % (Auto) 28.1 [place] % (Auto) 6.6 Eos % (Auto) 0.1 Baso % (Auto) 0.5 Absolute Neuts (auto) 4.9 Absolute Lymphs (auto) 2.19 Total Counted Not Reportable Neutrophils % (Manual) Band Neutrophils % Lymphocytes % (Manual) Monocytes % (Manual) Eosinophils % (Manual) Metamyelocytes % Myelocytes % Nucleated RBC % 2.9 Differential Comment Diff Path Review Reviewed Platelet Estimate RBC Morphology Polychromasia Anisocytosis Spherocytes Ovalocytes Absolute Retic 0.22 PT INR APTT D-Dimer Quant (PE/DVT) Specimen Type Sample Site pH Bicarbonate Actual POC Total CO2 Base Excess O2 Saturation O2 % ABG pCO2 ABG pO2 Sage Test Respiration Rate O2 Delivery Device Minute Volume Vent Mode Tidal Volume POC PEEP Blood Gas Notified Whom Blood Gas Notified Time Sodium 146 H Potassium 4.1 Chloride 112 H Carbon Dioxide 21.0 Anion Gap 13 BUN 84 H Creatinine 1.93 H Estim Creat Clear Calc 28.47 Est GFR (MDRD) Af Amer 43 L Est GFR (MDRD) Non-Af 36 L BUN/Creatinine Ratio 43.5 H Glucose 284 H Calcium 8.3 L Total Bilirubin Direct Bilirubin AST ALT Alkaline Phosphatase Total Creatine Kinase Troponin I 0.084 H B-Natriuretic Peptide Total Protein Albumin Globulin Albumin/Globulin Ratio Triglycerides MRSA (PCR) POC Glucose Blood Type Antibody Screen Crossmatch 06/03/18 06/03/18 06/03/18 06:15 06:15 06:15 WBC RBC Hgb Hct MCV MCH MCHC RDW RDW Differential Plt Count MPV Immature Gran % (Auto) Neut % (Auto) Lymph % (Auto) [place] % (Auto) Eos % (Auto) Baso % (Auto) Absolute Neuts (auto) Absolute Lymphs (auto) Total Counted Neutrophils % (Manual) Band Neutrophils % Lymphocytes % (Manual) Monocytes % (Manual) Eosinophils % (Manual) Metamyelocytes % Myelocytes % Nucleated RBC % Differential Comment Diff Path Review Platelet Estimate RBC Morphology Polychromasia Anisocytosis Spherocytes Ovalocytes Absolute Retic PT INR APTT D-Dimer Quant (PE/DVT) Specimen Type Sample Site pH Bicarbonate Actual POC Total CO2 Base Excess O2 Saturation O2 % ABG pCO2 ABG pO2 Sage Test Respiration Rate O2 Delivery Device Minute Volume Vent Mode Tidal Volume POC PEEP Blood Gas Notified Whom Blood Gas Notified Time Sodium Potassium Chloride Carbon Dioxide Anion Gap BUN Creatinine Estim Creat Clear Calc Est GFR (MDRD) Af Amer Est GFR (MDRD) Non-Af BUN/Creatinine Ratio Glucose Calcium Total Bilirubin 0.30 Direct Bilirubin 0.10 AST 216 H ALT 44 Alkaline Phosphatase 130 H Total Creatine Kinase 227 Troponin I B-Natriuretic Peptide 121.7 H Total Protein 5.2 L Albumin 1.9 L Globulin 3.3 Albumin/Globulin Ratio Triglycerides MRSA (PCR) POC Glucose Blood Type Antibody Screen Crossmatch 06/03/18 06/03/18 06/03/18 06:39 06:55 08:00 WBC RBC Hgb Hct MCV MCH MCHC RDW RDW Differential Plt Count MPV Immature Gran % (Auto) Neut % (Auto) Lymph % (Auto) [place] % (Auto) Eos % (Auto) Baso % (Auto) Absolute Neuts (auto) Absolute Lymphs (auto) Total Counted Neutrophils % (Manual) Band Neutrophils % Lymphocytes % (Manual) Monocytes % (Manual) Eosinophils % (Manual) Metamyelocytes % Myelocytes % Nucleated RBC % Differential Comment Diff Path Review Platelet Estimate RBC Morphology Polychromasia Anisocytosis Spherocytes Ovalocytes Absolute Retic PT INR APTT 118.5 H* D-Dimer Quant (PE/DVT) Specimen Type Sample Site pH Bicarbonate Actual POC Total CO2 Base Excess O2 Saturation O2 % ABG pCO2 ABG pO2 Sage Test Respiration Rate O2 Delivery Device Minute Volume Vent Mode Tidal Volume POC PEEP Blood Gas Notified Whom Blood Gas Notified Time Sodium Potassium Chloride Carbon Dioxide Anion Gap BUN Creatinine Estim Creat Clear Calc Est GFR (MDRD) Af Amer Est GFR (MDRD) Non-Af BUN/Creatinine Ratio Glucose Calcium Total Bilirubin Direct Bilirubin AST ALT Alkaline Phosphatase Total Creatine Kinase Troponin I B-Natriuretic Peptide Total Protein Albumin Globulin Albumin/Globulin Ratio Triglycerides MRSA (PCR) POC Glucose 250 H Blood Type AB POSITIVE Antibody Screen NEGATIVE Crossmatch 06/03/18 06/03/18 06/03/18 08:00 08:00 11:15 WBC RBC Hgb 7.3 L Hct 23.6 L MCV MCH MCHC RDW RDW Differential Plt Count MPV Immature Gran % (Auto) Neut % (Auto) Lymph % (Auto) [place] % (Auto) Eos % (Auto) Baso % (Auto) Absolute Neuts (auto) Absolute Lymphs (auto) Total Counted Neutrophils % (Manual) Band Neutrophils % Lymphocytes % (Manual) Monocytes % (Manual) Eosinophils % (Manual) Metamyelocytes % Myelocytes % Nucleated RBC % Differential Comment Diff Path Review Platelet Estimate RBC Morphology Polychromasia Anisocytosis Spherocytes Ovalocytes Absolute Retic PT INR APTT D-Dimer Quant (PE/DVT) Specimen Type Sample Site pH Bicarbonate Actual POC Total CO2 Base Excess O2 Saturation O2 % ABG pCO2 ABG pO2 Sage Test Respiration Rate O2 Delivery Device Minute Volume Vent Mode Tidal Volume POC PEEP Blood Gas Notified Whom Blood Gas Notified Time Sodium Potassium Chloride Carbon Dioxide Anion Gap BUN Creatinine Estim Creat Clear Calc Est GFR (MDRD) Af Amer Est GFR (MDRD) Non-Af BUN/Creatinine Ratio Glucose Calcium Total Bilirubin Direct Bilirubin AST ALT Alkaline Phosphatase Total Creatine Kinase Troponin I B-Natriuretic Peptide Total Protein Albumin Globulin Albumin/Globulin Ratio Triglycerides MRSA (PCR) Negative POC Glucose Blood Type Antibody Screen Crossmatch See Detail 06/03/18 06/03/18 06/03/18 11:17 14:05 15:45 WBC RBC Hgb 6.8 L Hct 21.8 L MCV MCH MCHC RDW RDW Differential Plt Count MPV Immature Gran % (Auto) Neut % (Auto) Lymph % (Auto) [place] % (Auto) Eos % (Auto) Baso % (Auto) Absolute Neuts (auto) Absolute Lymphs (auto) Total Counted Neutrophils % (Manual) Band Neutrophils % Lymphocytes % (Manual) Monocytes % (Manual) Eosinophils % (Manual) Metamyelocytes % Myelocytes % Nucleated RBC % Differential Comment Diff Path Review Platelet Estimate RBC Morphology Polychromasia Anisocytosis Spherocytes Ovalocytes Absolute Retic PT INR APTT 67.9 H D-Dimer Quant (PE/DVT) Specimen Type Sample Site pH Bicarbonate Actual POC Total CO2 Base Excess O2 Saturation O2 % ABG pCO2 ABG pO2 Sage Test Respiration Rate O2 Delivery Device Minute Volume Vent Mode Tidal Volume POC PEEP Blood Gas Notified Whom Blood Gas Notified Time Sodium Potassium Chloride Carbon Dioxide Anion Gap BUN Creatinine Estim Creat Clear Calc Est GFR (MDRD) Af Amer Est GFR (MDRD) Non-Af BUN/Creatinine Ratio Glucose Calcium Total Bilirubin Direct Bilirubin AST ALT Alkaline Phosphatase Total Creatine Kinase Troponin I B-Natriuretic Peptide Total Protein Albumin Globulin Albumin/Globulin Ratio Triglycerides MRSA (PCR) POC Glucose 273 H Blood Type Antibody Screen Crossmatch 06/03/18 06/03/18 06/03/18 16:30 17:23 19:40 WBC RBC Hgb Cancelled Hct Cancelled MCV MCH MCHC RDW RDW Differential Plt Count MPV Immature Gran % (Auto) Neut % (Auto) Lymph % (Auto) [place] % (Auto) Eos % (Auto) Baso % (Auto) Absolute Neuts (auto) Absolute Lymphs (auto) Total Counted Neutrophils % (Manual) Band Neutrophils % Lymphocytes % (Manual) Monocytes % (Manual) Eosinophils % (Manual) Metamyelocytes % Myelocytes % Nucleated RBC % Differential Comment Diff Path Review Platelet Estimate RBC Morphology Polychromasia Anisocytosis Spherocytes Ovalocytes Absolute Retic PT INR APTT 83.5 H D-Dimer Quant (PE/DVT) Specimen Type Sample Site pH Bicarbonate Actual POC Total CO2 Base Excess O2 Saturation O2 % ABG pCO2 ABG pO2 Sage Test Respiration Rate O2 Delivery Device Minute Volume Vent Mode Tidal Volume POC PEEP Blood Gas Notified Whom Blood Gas Notified Time Sodium Potassium Chloride Carbon Dioxide Anion Gap BUN Creatinine Estim Creat Clear Calc Est GFR (MDRD) Af Amer Est GFR (MDRD) Non-Af BUN/Creatinine Ratio Glucose Calcium Total Bilirubin Direct Bilirubin AST ALT Alkaline Phosphatase Total Creatine Kinase Troponin I B-Natriuretic Peptide Total Protein Albumin Globulin Albumin/Globulin Ratio Triglycerides MRSA (PCR) POC Glucose 286 H Blood Type Antibody Screen Crossmatch 06/04/18 06/04/18 06/04/18 00:38 00:40 03:30 WBC RBC Hgb 9.2 L Hct 28.1 L MCV MCH MCHC RDW RDW Differential Plt Count MPV Immature Gran % (Auto) Neut % (Auto) Lymph % (Auto) [place] % (Auto) Eos % (Auto) Baso % (Auto) Absolute Neuts (auto) Absolute Lymphs (auto) Total Counted Neutrophils % (Manual) Band Neutrophils % Lymphocytes % (Manual) Monocytes % (Manual) Eosinophils % (Manual) Metamyelocytes % Myelocytes % Nucleated RBC % Differential Comment Diff Path Review Platelet Estimate RBC Morphology Polychromasia Anisocytosis Spherocytes Ovalocytes Absolute Retic PT INR APTT D-Dimer Quant (PE/DVT) Specimen Type Sample Site pH Bicarbonate Actual POC Total CO2 Base Excess O2 Saturation O2 % ABG pCO2 ABG pO2 Sage Test Respiration Rate O2 Delivery Device Minute Volume Vent Mode Tidal Volume POC PEEP Blood Gas Notified Whom Blood Gas Notified Time Sodium 145 Potassium 4.2 Chloride 114 H Carbon Dioxide 17.0 L Anion Gap 14 BUN 102 H* Creatinine 1.92 H Estim Creat Clear Calc 28.61 Est GFR (MDRD) Af Amer 44 L Est GFR (MDRD) Non-Af 36 L BUN/Creatinine Ratio 53.1 H Glucose 496 H* Calcium 8.2 L Total Bilirubin Direct Bilirubin AST ALT Alkaline Phosphatase Total Creatine Kinase Troponin I B-Natriuretic Peptide Total Protein Albumin Globulin Albumin/Globulin Ratio Triglycerides MRSA (PCR) POC Glucose 360 H Blood Type Antibody Screen Crossmatch 06/04/18 06/04/18 06/04/18 03:30 03:30 06:32 WBC 10.2 RBC 3.02 L Hgb 8.8 L Hct 27.4 L MCV 90.7 MCH 29.1 MCHC 32.1 RDW 16.7 H RDW Differential 54.4 H Plt Count 74 L MPV 10.5 Immature Gran % (Auto) Neut % (Auto) Not Reportable Lymph % (Auto) [place] % (Auto) Eos % (Auto) Baso % (Auto) Absolute Neuts (auto) 8.3 H Absolute Lymphs (auto) 1.63 Total Counted 100 Neutrophils % (Manual) 69 Band Neutrophils % 7 H Lymphocytes % (Manual) 16 L Monocytes % (Manual) 2 Eosinophils % (Manual) 1 Metamyelocytes % 4 H Myelocytes % 1 H Nucleated RBC % 4.4 Differential Comment Diff Path Review May foll Platelet Estimate MOD DEC RBC Morphology RARE Polychromasia 1+ Anisocytosis 1+ Spherocytes RARE H Ovalocytes RARE Absolute Retic 0.45 PT INR APTT 73.0 H D-Dimer Quant (PE/DVT) Specimen Type Sample Site pH Bicarbonate Actual POC Total CO2 Base Excess O2 Saturation O2 % ABG pCO2 ABG pO2 Sage Test Respiration Rate O2 Delivery Device Minute Volume Vent Mode Tidal Volume POC PEEP Blood Gas Notified Whom Blood Gas Notified Time Sodium Potassium Chloride Carbon Dioxide Anion Gap BUN Creatinine Estim Creat Clear Calc Est GFR (MDRD) Af Amer Est GFR (MDRD) Non-Af BUN/Creatinine Ratio Glucose Calcium Total Bilirubin Direct Bilirubin AST ALT Alkaline Phosphatase Total Creatine Kinase Troponin I B-Natriuretic Peptide Total Protein Albumin Globulin Albumin/Globulin Ratio Triglycerides MRSA (PCR) POC Glucose 383 H Blood Type Antibody Screen Crossmatch Microbiology 06/02/18 22:30 Sputum, Expectorated/Coughed Gram Stain - Final 06/02/18 22:30 Mucosa - Nose Respiratory Panel (PCR) - Final 06/02/18 01:55 Urine, Clean Catch Urine Culture - Preliminary GPC Poss Enterococcus sp 06/02/18 02:15 Mucosa - Nose Influenza Types A,B Direct FA (CHELE) - Final Clinical Impression(s) from Imaging Studies Brain CT 06/02/18 01:25 IMPRESSION: No acute findings. Individualized dose optimization techniques were used for this CT. at 0159 Reported and signed by: Geoff Joaquin MD Electronically Signed: Geoff Joaquin, at 1:58 EST Tel , Service support , Cervical Spine CT 06/02/18 01:25 IMPRESSION: No fracture or dislocation of the cervical spine. Individualized dose optimization techniques were used for this CT. at 0206 Reported and signed by: Geoff Joaquin MD Electronically Signed: Geoff Joaquin, at 2:05 EST Tel , Service support , Chest X-Ray 06/02/18 01:35 IMPRESSION: Low lung volumes with resultant hypoventilatory changes. No definite pneumonia or edema. Interval sternotomy probably for heart valve replacement. at 0154 Reported and signed by: Geoff Joaquin MD Electronically Signed: Geoff Joaquin, at 1:53 EST Tel , Service support , Lung Scan-VQ NM 06/02/18 13:55 IMPRESSION: Low quality VQ scan, most consistent with low probability of pulmonary embolism. Electronically Signed: Kenny Greene MD at 16:31 EST , Service support , Chest X-Ray 06/02/18 14:28 IMPRESSION: Moderate right pleural effusion with overlying atelectasis. Electronically Signed: uJan Ruiz, at 15:40 EST Tel , Service support , Chest CT 06/02/18 21:14 IMPRESSION: Small bilateral pleural effusions with overlying atelectasis. Sclerotic osseous lesions which are suspicious for metastasis. Electronically Signed: Juan Ruiz, at 22:14 EST Tel , Service support , Chest X-Ray 06/02/18 22:26 IMPRESSION: Mild left basilar atelectasis status post endotracheal tube placement Electronically Signed: Norbert Snyder MD at 23:18 EST , Service support , Medical Necessity - Tobacco Use Smoking Status: Former smoker Assessment/Plan All Active Problems (Last Reviewed 06/04/18 @ 15:59 by Opal Kyle PA-C) Atrial fibrillation and flutter (Acute) Fever (Acute) Anemia (Acute) Thrombocytopenia (Acute) RECOMMENDATIONS: 1. Continue amiodarone per cardiology recommendations. 2. Continue to trend H&H. 3. If the patient's blood counts again begin to decrease, will ask general surgery to evaluate the patient. 4. Continue tube feeds as ordered. 5. Continue heparin drip for now. 6. Given that the patient is still spiking fevers through vancomycin and Zosyn, will ask ID to evaluate the patient. 7. Continue Protonix for GI prophylaxis 8. Check stool for occult blood. IMPRESSIONS: 1. Acute hypoxemic respiratory failure The exact etiology for the patient's clinical decompensation is unclear. However, the patient was noted to be tachycardic at the time when he was initially beginning to decompensate. It is unclear whether this was atrial fibrillation or a sinus tachycardia. Given that the patient has paroxysmal atrial fibrillation and underlying valvular heart disease, it is possible that his decompensation may have been heart rate related. In addition, increased metabolic demands from the patient's sepsis and fevers also likely contributed. He is chronically anticoagulated with Eliquis on an outpatient basis. The patient's CT chest obtained overnight only revealed evidence of small bilateral pleural effusions without focal infiltrates. His FiO2 was able to be quickly weaned. 2. Severe sepsis with unclear source The patient was initially felt to be septic due to cystitis. However, subsequent urine culture revealed evidence of enterococcus that was below the level for infection. Despite being on broad-spectrum antibiotics, the patient continues to spike fevers. Therefore, I am going to ask that infectious diseases also evaluate the patient. 3. Paroxysmal atrial fibrillation with RVR/history of aortic valve replacement Cardiology following to assist with management. The patient is currently on an amiodarone infusion. 4. Anemia The patient does have known normocytic anemia, which appears to have worsened over the course of this hospital stay. His hemoglobin reached a vivek of 6.8 g/dL yesterday. He was subsequently transfused 2 units of packed red blood cells. He remains on PPI therapy twice daily. Stool for occult blood is currently pending. If his hemoglobin once again begins to decrease, will ask general surgery to evaluate the patient. 5. Metastatic prostate cancer/anemia/chronic kidney disease/hypertension/hyperlipidemia/depression/generalized deconditioning and debility Complicates care, management, recovery and prognosis. Likely okay to continue home medications. Physical therapy to once again work with patient once medically stabilized. Recommend formal goals of care discussion with the patient and his family. TIME: 40 minutes of critical care time, independent of procedures, was spent addressing the patient's acute hypoxemic respiratory failure, severe sepsis, paroxysmal atrial fibrillation with a rapid ventricular rate, metastatic prostate cancer, anemia, review of all data and collaboration with the care team. ([id number]) Code Visit 9xxxx: 63022 Critical care first hour
--- NOTE | 2018-06-04 07:01 | PN_ITS ---
Subjective: The patient was seen and examined at the bedside this morning. Events from the last 24 hours have been reviewed. The patient remains febrile with a T-max of 38.4 ?C over the last 24 hours. The patient was transfused 2 units packed red blood cells overnight. His posttransfusion hemoglobin was noted to be 9.2 g/dL. On recheck this morning, he was noted to be 8.8 g/dL. He remains on continuous amiodarone, along with vancomycin and Zosyn. The patient did convert to normal sinus rhythm overnight. He is currently hemodynamically stable with improved blood pressure parameters overnight. His FiO2 requirement remains minimal at 30%. Although the patient's creatinine remained stable at 1.92, his BUN has increased to greater than 100 this morning. Serum bicarbonate is low at 17.0. The patient's glucose is also increased as well. His IV steroids were discontinued this morning. He is currently documented to be overall net +4.1 L for the admission. Objective: The patient's most recent lab work, culture data and imaging studies have all been personally reviewed. Surface echocardiogram revealed normal LV size and function with an ejection fraction of 65% and stage I diastolic dysfunction. Pulmonary artery systolic pressure was estimated to be 40 mmHg. VQ scan completed on June 02 was noted to be a low quality VQ scan, but was reported to be most consistent with low probability for PE. CT chest dated June 02 revealed small bilateral pleural effusions without focal infiltrates. General: Alert, - - Chronically ill in appearance. Remains intubated mechanically ventilated. HEENT: Atraumatic, PERRLA, Normocephalic Oral: Moist Mucosa, - - Endotracheal and OG tubes currently in place. Neck: Supple, No Nodes, Trachea Midline Lungs: No rhonchi, No wheeze, No rales, Diminished Cardiovascular: Regular rate, Regular Rhythm, Normal S1, Normal S2, Murmur Abdomen: Bowel Sounds Present, Soft, Non Tender Extremities: No clubbing, No cyanosis, No edema Skin: - - No significant change from previous. Musculoskeletal: No Tenderness to Palpation of Joints or Extremities Lymphatic: No Cervical, Supraclavicular, or Inguinal Adenopathy Neurological: - - No focal neurological deficits. Currently awake on the ventilator. RASS of +1 noted. Vital Signs Temp Pulse Resp BP Pulse Ox 38.1 C H 104 H 29 H 133/60 H 98 06/04/18 05:00 06/04/18 06:00 06/04/18 06:00 06/04/18 06:00 06/04/18 06:00 Oxygen Flow Rate (L/min) 2 Oxygen Delivery Method Room Air Weight: 172 lb 13.478 oz Body Mass Index (BMI) 27.1 Finger Stick Blood Glucose 95 Intake and Output for Last 24 Hours 06/02/18 06/03/18 06/04/18 23:59 23:59 23:59 Intake Total 1435 / 1435 2523 / 2523 2290 / 2290 Output Total 500 / 500 1125 / 1125 450 / 450 Balance 935 / 935 1398 / 1398 1840 / 1840 Labs (Last 48 Hours) 06/02/18 06/02/18 06/02/18 01:10 06:49 07:00 WBC RBC Hgb Hct MCV MCH MCHC RDW RDW Differential Plt Count MPV Immature Gran % (Auto) Neut % (Auto) Lymph % (Auto) Randolph % (Auto) Eos % (Auto) Baso % (Auto) Absolute Neuts (auto) Absolute Lymphs (auto) Total Counted Neutrophils % (Manual) Band Neutrophils % Lymphocytes % (Manual) Monocytes % (Manual) Eosinophils % (Manual) Metamyelocytes % Myelocytes % Nucleated RBC % Differential Comment Diff Path Review Reviewed Platelet Estimate RBC Morphology Polychromasia Anisocytosis Spherocytes Ovalocytes Absolute Retic PT INR APTT D-Dimer Quant (PE/DVT) Specimen Type Sample Site pH Bicarbonate Actual POC Total CO2 Base Excess O2 Saturation O2 % ABG pCO2 ABG pO2 Sage Test Respiration Rate O2 Delivery Device Minute Volume Vent Mode Tidal Volume POC PEEP Blood Gas Notified Whom Blood Gas Notified Time Sodium Potassium Chloride Carbon Dioxide Anion Gap BUN Creatinine Estim Creat Clear Calc Est GFR (MDRD) Af Amer Est GFR (MDRD) Non-Af BUN/Creatinine Ratio Glucose Calcium Total Bilirubin Direct Bilirubin AST ALT Alkaline Phosphatase Total Creatine Kinase Troponin I 0.073 H B-Natriuretic Peptide Total Protein Albumin Globulin Albumin/Globulin Ratio Triglycerides MRSA (PCR) POC Glucose 214 H Blood Type Antibody Screen Crossmatch 06/02/18 06/02/18 06/02/18 07:00 07:00 11:10 WBC 8.7 8.8 RBC 2.75 L 2.69 L Hgb 8.1 L 7.9 L Hct 25.8 L 25.0 L MCV 93.8 92.9 MCH 29.5 29.4 MCHC 31.4 L 31.6 L RDW 14.9 H 15.0 H RDW Differential 50.9 H 51.0 H Plt Count 102 L 93 L MPV 10.8 10.7 Immature Gran % (Auto) 1.300 H 1.400 H Neut % (Auto) 69.4 66.4 Lymph % (Auto) 18.0 L 21.6 Randolph % (Auto) 11.1 H 10.3 H Eos % (Auto) 0.1 0.1 Baso % (Auto) 0.1 0.2 Absolute Neuts (auto) 6.0 5.9 Absolute Lymphs (auto) 1.57 1.90 Total Counted Not Reportable Not Reportable Neutrophils % (Manual) Band Neutrophils % Lymphocytes % (Manual) Monocytes % (Manual) Eosinophils % (Manual) Metamyelocytes % Myelocytes % Nucleated RBC % 1.6 Differential Comment Diff Path Review Reviewed Platelet Estimate MOD DEC RBC Morphology Polychromasia RARE Anisocytosis Spherocytes Ovalocytes Absolute Retic 0.15 PT INR APTT D-Dimer Quant (PE/DVT) Specimen Type Sample Site pH Bicarbonate Actual POC Total CO2 Base Excess O2 Saturation O2 % ABG pCO2 ABG pO2 Sage Test Respiration Rate O2 Delivery Device Minute Volume Vent Mode Tidal Volume POC PEEP Blood Gas Notified Whom Blood Gas Notified Time Sodium 141 Potassium 4.0 Chloride 111 H Carbon Dioxide 21.0 Anion Gap 9 BUN 68 H Creatinine 1.75 H Estim Creat Clear Calc 31.39 Est GFR (MDRD) Af Amer 49 L Est GFR (MDRD) Non-Af 40 L BUN/Creatinine Ratio 38.9 H Glucose 224 H Calcium 8.2 L Total Bilirubin Direct Bilirubin AST ALT Alkaline Phosphatase Total Creatine Kinase Troponin I B-Natriuretic Peptide Total Protein Albumin Globulin Albumin/Globulin Ratio Triglycerides MRSA (PCR) POC Glucose Blood Type Antibody Screen Crossmatch 06/02/18 06/02/18 06/02/18 11:10 11:10 11:10 WBC RBC Hgb Hct MCV MCH MCHC RDW RDW Differential Plt Count MPV Immature Gran % (Auto) Neut % (Auto) Lymph % (Auto) Randolph % (Auto) Eos % (Auto) Baso % (Auto) Absolute Neuts (auto) Absolute Lymphs (auto) Total Counted Neutrophils % (Manual) Band Neutrophils % Lymphocytes % (Manual) Monocytes % (Manual) Eosinophils % (Manual) Metamyelocytes % Myelocytes % Nucleated RBC % Differential Comment Diff Path Review Platelet Estimate RBC Morphology Polychromasia Anisocytosis Spherocytes Ovalocytes Absolute Retic PT 23.5 H INR 2.1 APTT D-Dimer Quant (PE/DVT) Cancelled Specimen Type Sample Site pH Bicarbonate Actual POC Total CO2 Base Excess O2 Saturation O2 % ABG pCO2 ABG pO2 Sage Test Respiration Rate O2 Delivery Device Minute Volume Vent Mode Tidal Volume POC PEEP Blood Gas Notified Whom Blood Gas Notified Time Sodium 144 Potassium 4.1 Chloride 111 H Carbon Dioxide 20.0 L Anion Gap 13 BUN 70 H Creatinine 1.86 H Estim Creat Clear Calc 29.54 Est GFR (MDRD) Af Amer 45 L Est GFR (MDRD) Non-Af 38 L BUN/Creatinine Ratio 37.6 H Glucose 231 H Calcium 8.3 L Total Bilirubin 0.20 Direct Bilirubin AST 156 H ALT 28 Alkaline Phosphatase 155 H Total Creatine Kinase 386 H Troponin I B-Natriuretic Peptide Total Protein 5.4 L Albumin 1.9 L Globulin 3.5 Albumin/Globulin Ratio 0.5 L Triglycerides MRSA (PCR) POC Glucose Blood Type Antibody Screen Crossmatch 06/02/18 06/02/18 06/02/18 11:38 13:00 17:28 WBC RBC Hgb Hct MCV MCH MCHC RDW RDW Differential Plt Count MPV Immature Gran % (Auto) Neut % (Auto) Lymph % (Auto) Randolph % (Auto) Eos % (Auto) Baso % (Auto) Absolute Neuts (auto) Absolute Lymphs (auto) Total Counted Neutrophils % (Manual) Band Neutrophils % Lymphocytes % (Manual) Monocytes % (Manual) Eosinophils % (Manual) Metamyelocytes % Myelocytes % Nucleated RBC % Differential Comment Diff Path Review Platelet Estimate RBC Morphology Polychromasia Anisocytosis Spherocytes Ovalocytes Absolute Retic PT INR APTT D-Dimer Quant (PE/DVT) > 20.00 H* Specimen Type Sample Site pH Bicarbonate Actual POC Total CO2 Base Excess O2 Saturation O2 % ABG pCO2 ABG pO2 Sage Test Respiration Rate O2 Delivery Device Minute Volume Vent Mode Tidal Volume POC PEEP Blood Gas Notified Whom Blood Gas Notified Time Sodium Potassium Chloride Carbon Dioxide Anion Gap BUN Creatinine Estim Creat Clear Calc Est GFR (MDRD) Af Amer Est GFR (MDRD) Non-Af BUN/Creatinine Ratio Glucose Calcium Total Bilirubin Direct Bilirubin AST ALT Alkaline Phosphatase Total Creatine Kinase Troponin I B-Natriuretic Peptide Total Protein Albumin Globulin Albumin/Globulin Ratio Triglycerides MRSA (PCR) POC Glucose 221 H 242 H Blood Type Antibody Screen Crossmatch 06/02/18 06/02/18 06/02/18 22:40 22:48 23:38 WBC RBC Hgb Hct MCV MCH MCHC RDW RDW Differential Plt Count MPV Immature Gran % (Auto) Neut % (Auto) Lymph % (Auto) Randolph % (Auto) Eos % (Auto) Baso % (Auto) Absolute Neuts (auto) Absolute Lymphs (auto) Total Counted Neutrophils % (Manual) Band Neutrophils % Lymphocytes % (Manual) Monocytes % (Manual) Eosinophils % (Manual) Metamyelocytes % Myelocytes % Nucleated RBC % Differential Comment Diff Path Review Platelet Estimate RBC Morphology Polychromasia Anisocytosis Spherocytes Ovalocytes Absolute Retic PT INR APTT D-Dimer Quant (PE/DVT) Specimen Type ART Sample Site R Radial pH 7.44 Bicarbonate Actual 21.0 L POC Total CO2 22 Base Excess -3 L O2 Saturation 100 H O2 % 50 ABG pCO2 30.9 L ABG pO2 170 H Sage Test POS Respiration Rate 14 O2 Delivery Device Vent Minute Volume 8.00 Vent Mode A-C Tidal Volume 450 POC PEEP 5 Blood Gas Notified Whom HOSP Blood Gas Notified Time 2328 Sodium Potassium Chloride Carbon Dioxide Anion Gap BUN Creatinine Estim Creat Clear Calc Est GFR (MDRD) Af Amer Est GFR (MDRD) Non-Af BUN/Creatinine Ratio Glucose Calcium Total Bilirubin Direct Bilirubin AST ALT Alkaline Phosphatase Total Creatine Kinase 349 H Troponin I B-Natriuretic Peptide Total Protein Albumin Globulin Albumin/Globulin Ratio Triglycerides 189 MRSA (PCR) POC Glucose 207 H Blood Type Antibody Screen Crossmatch 06/03/18 06/03/18 06/03/18 00:10 01:53 02:30 WBC RBC Hgb Hct MCV MCH MCHC RDW RDW Differential Plt Count MPV Immature Gran % (Auto) Neut % (Auto) Lymph % (Auto) Randolph % (Auto) Eos % (Auto) Baso % (Auto) Absolute Neuts (auto) Absolute Lymphs (auto) Total Counted Neutrophils % (Manual) Band Neutrophils % Lymphocytes % (Manual) Monocytes % (Manual) Eosinophils % (Manual) Metamyelocytes % Myelocytes % Nucleated RBC % Differential Comment Diff Path Review Platelet Estimate RBC Morphology Polychromasia Anisocytosis Spherocytes Ovalocytes Absolute Retic PT INR APTT D-Dimer Quant (PE/DVT) Specimen Type Sample Site pH Bicarbonate Actual POC Total CO2 Base Excess O2 Saturation O2 % ABG pCO2 ABG pO2 Sage Test Respiration Rate O2 Delivery Device Minute Volume Vent Mode Tidal Volume POC PEEP Blood Gas Notified Whom Blood Gas Notified Time Sodium Potassium Chloride Carbon Dioxide Anion Gap BUN Creatinine Estim Creat Clear Calc Est GFR (MDRD) Af Amer Est GFR (MDRD) Non-Af BUN/Creatinine Ratio Glucose Calcium Total Bilirubin Direct Bilirubin AST ALT Alkaline Phosphatase Total Creatine Kinase Troponin I 0.104 H 0.099 H B-Natriuretic Peptide Total Protein Albumin Globulin Albumin/Globulin Ratio Triglycerides MRSA (PCR) POC Glucose 240 H Blood Type Antibody Screen Crossmatch 06/03/18 06/03/18 06/03/18 06:15 06:15 06:15 WBC 7.8 RBC 2.61 L Hgb 7.7 L Hct 24.7 L MCV 94.6 H MCH 29.5 MCHC 31.2 L RDW 15.2 H RDW Differential 51.6 H Plt Count 80 L MPV 11.1 Immature Gran % (Auto) 2.100 H Neut % (Auto) 62.6 Lymph % (Auto) 28.1 Randolph % (Auto) 6.6 Eos % (Auto) 0.1 Baso % (Auto) 0.5 Absolute Neuts (auto) 4.9 Absolute Lymphs (auto) 2.19 Total Counted Not Reportable Neutrophils % (Manual) Band Neutrophils % Lymphocytes % (Manual) Monocytes % (Manual) Eosinophils % (Manual) Metamyelocytes % Myelocytes % Nucleated RBC % 2.9 Differential Comment Diff Path Review Reviewed Platelet Estimate RBC Morphology Polychromasia Anisocytosis Spherocytes Ovalocytes Absolute Retic 0.22 PT INR APTT D-Dimer Quant (PE/DVT) Specimen Type Sample Site pH Bicarbonate Actual POC Total CO2 Base Excess O2 Saturation O2 % ABG pCO2 ABG pO2 Sage Test Respiration Rate O2 Delivery Device Minute Volume Vent Mode Tidal Volume POC PEEP Blood Gas Notified Whom Blood Gas Notified Time Sodium 146 H Potassium 4.1 Chloride 112 H Carbon Dioxide 21.0 Anion Gap 13 BUN 84 H Creatinine 1.93 H Estim Creat Clear Calc 28.47 Est GFR (MDRD) Af Amer 43 L Est GFR (MDRD) Non-Af 36 L BUN/Creatinine Ratio 43.5 H Glucose 284 H Calcium 8.3 L Total Bilirubin Direct Bilirubin AST ALT Alkaline Phosphatase Total Creatine Kinase Troponin I 0.084 H B-Natriuretic Peptide Total Protein Albumin Globulin Albumin/Globulin Ratio Triglycerides MRSA (PCR) POC Glucose Blood Type Antibody Screen Crossmatch 06/03/18 06/03/18 06/03/18 06:15 06:15 06:15 WBC RBC Hgb Hct MCV MCH MCHC RDW RDW Differential Plt Count MPV Immature Gran % (Auto) Neut % (Auto) Lymph % (Auto) Randolph % (Auto) Eos % (Auto) Baso % (Auto) Absolute Neuts (auto) Absolute Lymphs (auto) Total Counted Neutrophils % (Manual) Band Neutrophils % Lymphocytes % (Manual) Monocytes % (Manual) Eosinophils % (Manual) Metamyelocytes % Myelocytes % Nucleated RBC % Differential Comment Diff Path Review Platelet Estimate RBC Morphology Polychromasia Anisocytosis Spherocytes Ovalocytes Absolute Retic PT INR APTT D-Dimer Quant (PE/DVT) Specimen Type Sample Site pH Bicarbonate Actual POC Total CO2 Base Excess O2 Saturation O2 % ABG pCO2 ABG pO2 Sage Test Respiration Rate O2 Delivery Device Minute Volume Vent Mode Tidal Volume POC PEEP Blood Gas Notified Whom Blood Gas Notified Time Sodium Potassium Chloride Carbon Dioxide Anion Gap BUN Creatinine Estim Creat Clear Calc Est GFR (MDRD) Af Amer Est GFR (MDRD) Non-Af BUN/Creatinine Ratio Glucose Calcium Total Bilirubin 0.30 Direct Bilirubin 0.10 AST 216 H ALT 44 Alkaline Phosphatase 130 H Total Creatine Kinase 227 Troponin I B-Natriuretic Peptide 121.7 H Total Protein 5.2 L Albumin 1.9 L Globulin 3.3 Albumin/Globulin Ratio Triglycerides MRSA (PCR) POC Glucose Blood Type Antibody Screen Crossmatch 06/03/18 06/03/18 06/03/18 06:39 06:55 08:00 WBC RBC Hgb Hct MCV MCH MCHC RDW RDW Differential Plt Count MPV Immature Gran % (Auto) Neut % (Auto) Lymph % (Auto) Randolph % (Auto) Eos % (Auto) Baso % (Auto) Absolute Neuts (auto) Absolute Lymphs (auto) Total Counted Neutrophils % (Manual) Band Neutrophils % Lymphocytes % (Manual) Monocytes % (Manual) Eosinophils % (Manual) Metamyelocytes % Myelocytes % Nucleated RBC % Differential Comment Diff Path Review Platelet Estimate RBC Morphology Polychromasia Anisocytosis Spherocytes Ovalocytes Absolute Retic PT INR APTT 118.5 H* D-Dimer Quant (PE/DVT) Specimen Type Sample Site pH Bicarbonate Actual POC Total CO2 Base Excess O2 Saturation O2 % ABG pCO2 ABG pO2 Sage Test Respiration Rate O2 Delivery Device Minute Volume Vent Mode Tidal Volume POC PEEP Blood Gas Notified Whom Blood Gas Notified Time Sodium Potassium Chloride Carbon Dioxide Anion Gap BUN Creatinine Estim Creat Clear Calc Est GFR (MDRD) Af Amer Est GFR (MDRD) Non-Af BUN/Creatinine Ratio Glucose Calcium Total Bilirubin Direct Bilirubin AST ALT Alkaline Phosphatase Total Creatine Kinase Troponin I B-Natriuretic Peptide Total Protein Albumin Globulin Albumin/Globulin Ratio Triglycerides MRSA (PCR) POC Glucose 250 H Blood Type AB POSITIVE Antibody Screen NEGATIVE Crossmatch 06/03/18 06/03/18 06/03/18 08:00 08:00 11:15 WBC RBC Hgb 7.3 L Hct 23.6 L MCV MCH MCHC RDW RDW Differential Plt Count MPV Immature Gran % (Auto) Neut % (Auto) Lymph % (Auto) Randolph % (Auto) Eos % (Auto) Baso % (Auto) Absolute Neuts (auto) Absolute Lymphs (auto) Total Counted Neutrophils % (Manual) Band Neutrophils % Lymphocytes % (Manual) Monocytes % (Manual) Eosinophils % (Manual) Metamyelocytes % Myelocytes % Nucleated RBC % Differential Comment Diff Path Review Platelet Estimate RBC Morphology Polychromasia Anisocytosis Spherocytes Ovalocytes Absolute Retic PT INR APTT D-Dimer Quant (PE/DVT) Specimen Type Sample Site pH Bicarbonate Actual POC Total CO2 Base Excess O2 Saturation O2 % ABG pCO2 ABG pO2 Sage Test Respiration Rate O2 Delivery Device Minute Volume Vent Mode Tidal Volume POC PEEP Blood Gas Notified Whom Blood Gas Notified Time Sodium Potassium Chloride Carbon Dioxide Anion Gap BUN Creatinine Estim Creat Clear Calc Est GFR (MDRD) Af Amer Est GFR (MDRD) Non-Af BUN/Creatinine Ratio Glucose Calcium Total Bilirubin Direct Bilirubin AST ALT Alkaline Phosphatase Total Creatine Kinase Troponin I B-Natriuretic Peptide Total Protein Albumin Globulin Albumin/Globulin Ratio Triglycerides MRSA (PCR) Negative POC Glucose Blood Type Antibody Screen Crossmatch See Detail 06/03/18 06/03/18 06/03/18 11:17 14:05 15:45 WBC RBC Hgb 6.8 L Hct 21.8 L MCV MCH MCHC RDW RDW Differential Plt Count MPV Immature Gran % (Auto) Neut % (Auto) Lymph % (Auto) Randolph % (Auto) Eos % (Auto) Baso % (Auto) Absolute Neuts (auto) Absolute Lymphs (auto) Total Counted Neutrophils % (Manual) Band Neutrophils % Lymphocytes % (Manual) Monocytes % (Manual) Eosinophils % (Manual) Metamyelocytes % Myelocytes % Nucleated RBC % Differential Comment Diff Path Review Platelet Estimate RBC Morphology Polychromasia Anisocytosis Spherocytes Ovalocytes Absolute Retic PT INR APTT 67.9 H D-Dimer Quant (PE/DVT) Specimen Type Sample Site pH Bicarbonate Actual POC Total CO2 Base Excess O2 Saturation O2 % ABG pCO2 ABG pO2 Sage Test Respiration Rate O2 Delivery Device Minute Volume Vent Mode Tidal Volume POC PEEP Blood Gas Notified Whom Blood Gas Notified Time Sodium Potassium Chloride Carbon Dioxide Anion Gap BUN Creatinine Estim Creat Clear Calc Est GFR (MDRD) Af Amer Est GFR (MDRD) Non-Af BUN/Creatinine Ratio Glucose Calcium Total Bilirubin Direct Bilirubin AST ALT Alkaline Phosphatase Total Creatine Kinase Troponin I B-Natriuretic Peptide Total Protein Albumin Globulin Albumin/Globulin Ratio Triglycerides MRSA (PCR) POC Glucose 273 H Blood Type Antibody Screen Crossmatch 06/03/18 06/03/18 06/03/18 16:30 17:23 19:40 WBC RBC Hgb Cancelled Hct Cancelled MCV MCH MCHC RDW RDW Differential Plt Count MPV Immature Gran % (Auto) Neut % (Auto) Lymph % (Auto) Randolph % (Auto) Eos % (Auto) Baso % (Auto) Absolute Neuts (auto) Absolute Lymphs (auto) Total Counted Neutrophils % (Manual) Band Neutrophils % Lymphocytes % (Manual) Monocytes % (Manual) Eosinophils % (Manual) Metamyelocytes % Myelocytes % Nucleated RBC % Differential Comment Diff Path Review Platelet Estimate RBC Morphology Polychromasia Anisocytosis Spherocytes Ovalocytes Absolute Retic PT INR APTT 83.5 H D-Dimer Quant (PE/DVT) Specimen Type Sample Site pH Bicarbonate Actual POC Total CO2 Base Excess O2 Saturation O2 % ABG pCO2 ABG pO2 Sage Test Respiration Rate O2 Delivery Device Minute Volume Vent Mode Tidal Volume POC PEEP Blood Gas Notified Whom Blood Gas Notified Time Sodium Potassium Chloride Carbon Dioxide Anion Gap BUN Creatinine Estim Creat Clear Calc Est GFR (MDRD) Af Amer Est GFR (MDRD) Non-Af BUN/Creatinine Ratio Glucose Calcium Total Bilirubin Direct Bilirubin AST ALT Alkaline Phosphatase Total Creatine Kinase Troponin I B-Natriuretic Peptide Total Protein Albumin Globulin Albumin/Globulin Ratio Triglycerides MRSA (PCR) POC Glucose 286 H Blood Type Antibody Screen Crossmatch 06/04/18 06/04/18 06/04/18 00:38 00:40 03:30 WBC RBC Hgb 9.2 L Hct 28.1 L MCV MCH MCHC RDW RDW Differential Plt Count MPV Immature Gran % (Auto) Neut % (Auto) Lymph % (Auto) Randolph % (Auto) Eos % (Auto) Baso % (Auto) Absolute Neuts (auto) Absolute Lymphs (auto) Total Counted Neutrophils % (Manual) Band Neutrophils % Lymphocytes % (Manual) Monocytes % (Manual) Eosinophils % (Manual) Metamyelocytes % Myelocytes % Nucleated RBC % Differential Comment Diff Path Review Platelet Estimate RBC Morphology Polychromasia Anisocytosis Spherocytes Ovalocytes Absolute Retic PT INR APTT D-Dimer Quant (PE/DVT) Specimen Type Sample Site pH Bicarbonate Actual POC Total CO2 Base Excess O2 Saturation O2 % ABG pCO2 ABG pO2 Sage Test Respiration Rate O2 Delivery Device Minute Volume Vent Mode Tidal Volume POC PEEP Blood Gas Notified Whom Blood Gas Notified Time Sodium 145 Potassium 4.2 Chloride 114 H Carbon Dioxide 17.0 L Anion Gap 14 BUN 102 H* Creatinine 1.92 H Estim Creat Clear Calc 28.61 Est GFR (MDRD) Af Amer 44 L Est GFR (MDRD) Non-Af 36 L BUN/Creatinine Ratio 53.1 H Glucose 496 H* Calcium 8.2 L Total Bilirubin Direct Bilirubin AST ALT Alkaline Phosphatase Total Creatine Kinase Troponin I B-Natriuretic Peptide Total Protein Albumin Globulin Albumin/Globulin Ratio Triglycerides MRSA (PCR) POC Glucose 360 H Blood Type Antibody Screen Crossmatch 06/04/18 06/04/18 06/04/18 03:30 03:30 06:32 WBC 10.2 RBC 3.02 L Hgb 8.8 L Hct 27.4 L MCV 90.7 MCH 29.1 MCHC 32.1 RDW 16.7 H RDW Differential 54.4 H Plt Count 74 L MPV 10.5 Immature Gran % (Auto) Neut % (Auto) Not Reportable Lymph % (Auto) Randolph % (Auto) Eos % (Auto) Baso % (Auto) Absolute Neuts (auto) 8.3 H Absolute Lymphs (auto) 1.63 Total Counted 100 Neutrophils % (Manual) 69 Band Neutrophils % 7 H Lymphocytes % (Manual) 16 L Monocytes % (Manual) 2 Eosinophils % (Manual) 1 Metamyelocytes % 4 H Myelocytes % 1 H Nucleated RBC % 4.4 Differential Comment Diff Path Review May foll Platelet Estimate MOD DEC RBC Morphology RARE Polychromasia 1+ Anisocytosis 1+ Spherocytes RARE H Ovalocytes RARE Absolute Retic 0.45 PT INR APTT 73.0 H D-Dimer Quant (PE/DVT) Specimen Type Sample Site pH Bicarbonate Actual POC Total CO2 Base Excess O2 Saturation O2 % ABG pCO2 ABG pO2 Sage Test Respiration Rate O2 Delivery Device Minute Volume Vent Mode Tidal Volume POC PEEP Blood Gas Notified Whom Blood Gas Notified Time Sodium Potassium Chloride Carbon Dioxide Anion Gap BUN Creatinine Estim Creat Clear Calc Est GFR (MDRD) Af Amer Est GFR (MDRD) Non-Af BUN/Creatinine Ratio Glucose Calcium Total Bilirubin Direct Bilirubin AST ALT Alkaline Phosphatase Total Creatine Kinase Troponin I B-Natriuretic Peptide Total Protein Albumin Globulin Albumin/Globulin Ratio Triglycerides MRSA (PCR) POC Glucose 383 H Blood Type Antibody Screen Crossmatch Microbiology 06/02/18 22:30 Sputum, Expectorated/Coughed Gram Stain - Final 06/02/18 22:30 Mucosa - Nose Respiratory Panel (PCR) - Final 06/02/18 01:55 Urine, Clean Catch Urine Culture - Preliminary GPC Poss Enterococcus sp 06/02/18 02:15 Mucosa - Nose Influenza Types A,B Direct FA (CHELE) - Final Clinical Impression(s) from Imaging Studies Brain CT 06/02/18 01:25 IMPRESSION: No acute findings. Individualized dose optimization techniques were used for this CT. at 0159 Reported and signed by: Geoff Joaquin MD Electronically Signed: Geoff Joaquin, at 1:58 EST Tel , Service support , Cervical Spine CT 06/02/18 01:25 IMPRESSION: No fracture or dislocation of the cervical spine. Individualized dose optimization techniques were used for this CT. at 0206 Reported and signed by: Geoff Joaquin MD Electronically Signed: Geoff Joaquin, at 2:05 EST Tel , Service support , Chest X-Ray 06/02/18 01:35 IMPRESSION: Low lung volumes with resultant hypoventilatory changes. No definite pneumonia or edema. Interval sternotomy probably for heart valve replacement. at 0154 Reported and signed by: Geoff Joaquin MD Electronically Signed: Geoff Joaquin, at 1:53 EST Tel , Service support , Lung Scan-VQ NM 06/02/18 13:55 IMPRESSION: Low quality VQ scan, most consistent with low probability of pulmonary embolism. Electronically Signed: Kenny Greene MD at 16:31 EST , Service support , Chest X-Ray 06/02/18 14:28 IMPRESSION: Moderate right pleural effusion with overlying atelectasis. Electronically Signed: Juan Ruiz, at 15:40 EST Tel , Service support , Chest CT 06/02/18 21:14 IMPRESSION: Small bilateral pleural effusions with overlying atelectasis. Sclerotic osseous lesions which are suspicious for metastasis. Electronically Signed: Juan Ruiz, at 22:14 EST Tel , Service support , Chest X-Ray 06/02/18 22:26 IMPRESSION: Mild left basilar atelectasis status post endotracheal tube placement Electronically Signed: Norbert Snyder MD at 23:18 EST , Service support , Medical Necessity - Tobacco Use Smoking Status: Former smoker Assessment/Plan All Active Problems (Last Reviewed 06/04/18 @ 15:59 by Opal Kyle PA-C) Atrial fibrillation and flutter (Acute) Fever (Acute) Anemia (Acute) Thrombocytopenia (Acute) RECOMMENDATIONS: 1. Continue amiodarone per cardiology recommendations. 2. Continue to trend H&H. 3. If the patient's blood counts again begin to decrease, will ask general surgery to evaluate the patient. 4. Continue tube feeds as ordered. 5. Continue heparin drip for now. 6. Given that the patient is still spiking fevers through vancomycin and Zosyn, will ask ID to evaluate the patient. 7. Continue Protonix for GI prophylaxis 8. Check stool for occult blood. IMPRESSIONS: 1. Acute hypoxemic respiratory failure The exact etiology for the patient's clinical decompensation is unclear. However, the patient was noted to be tachycardic at the time when he was initially beginning to decompensate. It is unclear whether this was atrial fibrillation or a sinus tachycardia. Given that the patient has paroxysmal atrial fibrillation and underlying valvular heart disease, it is possible that his decompensation may have been heart rate related. In addition, increased metabolic demands from the patient's sepsis and fevers also likely contributed. He is chronically anticoagulated with Eliquis on an outpatient basis. The [facility] CT chest obtained overnight only revealed evidence of small bilateral pleural effusions without focal infiltrates. His FiO2 was able to be quickly weaned. 2. Severe sepsis with unclear source The patient was initially felt to be septic due to cystitis. However, subsequent urine culture revealed evidence of enterococcus that was below the level for infection. Despite being on broad-spectrum antibiotics, the patient continues to spike fevers. Therefore, I am going to ask that infectious diseases also evaluate the patient. 3. Paroxysmal atrial fibrillation with RVR/history of aortic valve replacement Cardiology following to assist with management. The patient is currently on an amiodarone infusion. 4. Anemia The patient does have known normocytic anemia, which appears to have worsened over the course of this hospital stay. His hemoglobin reached a vivek of 6.8 g/dL yesterday. He was subsequently transfused 2 units of packed red blood cells. He remains on PPI therapy twice daily. Stool for occult blood is currently pending. If his hemoglobin once again begins to decrease, will ask g eneral surgery to evaluate the patient. 5. Metastatic prostate cancer/anemia/chronic kidney disease/hypertension/hyperlipidemia/depression/generalized deconditioning and debility Complicates care, management, recovery and prognosis. Likely okay to continue home medications. Physical therapy to once again work with patient once medically stabilized. Recommend formal goals of care discussion with the patient and his family. TIME: 40 minutes of critical care time, independent of procedures, was spent addressing the patient's acute hypoxemic respiratory failure, severe sepsis, paroxysmal atrial fibrillation with a rapid ventricular rate, metastatic prostate cancer, anemia, review of all data and collaboration with the care team. ([id number]) Code Visit 9xxxx: [id number] Critical care first hour
--- NOTE | 2018-06-04 07:50 | PN_ITS ---
Patient Problems: Active and Suspected Problems (Last Updated 06/02/18 @ 03:12 by Sally Cm MD) Atrial fibrillation and flutter (Acute) Fever (Acute) Anemia (Acute) Thrombocytopenia (Acute) Subjective: Patient was seen and examined. Remains intubated. Received 2 units of packed RBCs yesterday. Been having spikes of fever despite being on IV vancomycin and Zosyn. No other acute events overnight. Objective: Physical exam: General: - - sedated, intubated, on mechanical ventilator HEENT: Atraumatic, PERRLA, EOMI, Normocephalic Oral: Dry Mucosa Neck: Supple Lungs: Normal air movement, Diminished Cardiovascular: Regular rate, Regular Rhythm, Normal S1, Normal S2, No murmurs Abdomen: Bowel Sounds Present, Soft, Non Tender, Non-Distended, No Hepato- splenomegaly, - - Crump catheter in situ Extremities: No edema Skin: No rashes Musculoskeletal: No Tenderness to Palpation of Joints or Extremities Lymphatic: No Cervical, Supraclavicular, or Inguinal Adenopathy Neurological: Cranial nerves II-XII grossly intact, Neuro grossly intact Psych/Mental Status: Normal Affect, Appropriate Vitals/I&O's: Vital Signs Temp Pulse Resp BP Pulse Ox 100.5 F H 107 H 33 H 125/56 H 99 06/04/18 05:00 06/04/18 07:00 06/04/18 07:00 06/04/18 07:00 06/04/18 07:00 Oxygen Flow Rate (L/min) 2 Oxygen Delivery Method Mechanical Ventilator Weight: 78.4 kg Body Mass Index (BMI) 27.1 Finger Stick Blood Glucose 95 Intake and Output for Last 24 Hours 06/02/18 06/03/18 06/04/18 23:59 23:59 23:59 Intake Total 1435 / 1435 2523 / 2523 2290 / 2290 Output Total 500 / 500 1125 / 1125 450 / 450 Balance 935 / 935 1398 / 1398 1840 / 1840 Microbiology Past 72 Hours 06/02/18 01:55 Urine, Clean Catch Urine Culture - Final GPC Poss Enterococcus sp 06/02/18 01:10 Blood Culture (Wb) - Right Forearm Blood Culture - Pre liminary No growth in 48 hours. 06/02/18 01:24 Blood Culture (Wb) - Anticubital Left Blood Culture - Preliminary No growth in 48 hours. 06/02/18 22:30 Sputum, Expectorated/Coughed Gram Stain - Final 06/02/18 22:30 Mucosa - Nose Respiratory Panel (PCR) - Final 06/02/18 02:15 Mucosa - Nose Influenza Types A,B Direct FA (CHELE) - Final Laboratory Results 06/02/18 11:10: Diff Path Review Reviewed 06/03/18 06:15: Diff Path Review Reviewed 06/03/18 06:15: Total Bilirubin 0.30, Direct Bilirubin 0.10, AST 216 H, ALT 44, Alkaline Phosphatase 130 H, Total Protein 5.2 L, Albumin 1.9 L, Globulin 3.3 06/03/18 06:15: B-Natriuretic Peptide 121.7 H 06/03/18 06:15: Total Creatine Kinase 227 06/03/18 06:55: APTT 118.5 H* 06/03/18 08:00: Blood Type AB POSITIVE, Antibody Screen NEGATIVE 06/03/18 08:00: MRSA (PCR) Negative 06/03/18 08:00: Crossmatch See Detail 06/03/18 11:15: Hgb 7.3 L, Hct 23.6 L 06/03/18 11:17: POC Glucose 273 H 06/03/18 14:05: APTT 67.9 H 06/03/18 15:45: Hgb 6.8 L, Hct 21.8 L 06/03/18 16:30: Hgb Cancelled, Hct Cancelled 06/03/18 17:23: POC Glucose 286 H 06/03/18 19:40: APTT 83.5 H 06/04/18 00:38: POC Glucose 360 H 06/04/18 00:40: Hgb 9.2 L, Hct 28.1 L 06/04/18 03:30: Sodium 145, Potassium 4.2, Chloride 114 H, Carbon Dioxide 17.0 L , Anion Gap 14, BUN 102 H*, Creatinine 1.92 H, Estim Creat Clear Calc 28.61, Est GFR (MDRD) Af Amer 44 L, Est GFR (MDRD) Non-Af 36 L, BUN/Creatinine Ratio 53.1 H , Glucose 496 H*, Calcium 8.2 L 06/04/18 03:30: WBC 10.2, RBC 3.02 L, Hgb 8.8 L, Hct 27.4 L, MCV 90.7, MCH 29.1, MCHC 32.1, RDW 16.7 H, RDW Differential 54.4 H, Plt Count 74 L, MPV 10.5, Neut % (Auto) Not Reportable, Absolute Neuts (auto) 8.3 H, Absolute Lymphs (auto) 1.63, Total Counted 100, Neutrophils % (Manual) 69, Band Neutrophils % 7 H, Lymphocytes % (Manual) 16 L, Monocytes % (Manual) 2, Eosinophils % (Manual) 1, Metamyelocytes % 4 H, Myelocytes % 1 H, Nucleated RBC % 4.4, Diff Path Review July, Platelet Estimate MOD DEC, RBC Morphology RARE, Polychromasia 1+, Anisocytosis 1+, Spherocytes RARE H, Ovalocytes RARE, Absolute Retic 0.45 06/04/18 03:30: APTT 73.0 H 06/04/18 06:32: POC Glucose 383 H Current Medications Acetaminophen (Tylenol Liquid) 650 mg GT Q6H PRN PRN PRN Reason: Fever, headache, pain Last Admin: 06/03/18 21:41 Dose: 650 mg Atorvastatin Calcium (Lipitor) 10 mg GT QHS [facility] Last Admin: 06/03/18 21:38 Dose: 10 mg Chlorhexidine Gluconate () 15 ml PO BID [facility] Last Admin: 06/03/18 22:51 Dose: 15 ml Chlorhexidine Gluconate () 1 each TOPICAL DAILY [facility] Last Admin: 06/04/18 06:30 Dose: 1 each Duloxetine HCl (Cymbalta) 30 mg PO DAILY [facility] Last Admin: 06/03/18 08:21 Dose: 30 mg Heparin Sodium (Porcine) (Heparin Na) 0 unit IV UD PRN; Protocol Sodium Chloride () 250 mls @ 15 mls/hr IV .[id number] PRN PRN Reason: SALINE FLUSH Last Admin: 06/03/18 02:30 Dose: 15 mls/hr Propofol (Diprivan) 1,000 mg in 100 mls @ 4.596 mls/hr CONT INF .Q12H [facility] Last Admin: 06/03/18 11:10 Dose: 4.596 mls/hr Piperacillin Sod/Tazobactam (Sod 3.375 gm/ Sodium Chloride) 50 mls @ 12.5 mls/hr IV Q8 [facility] Last Admin: 06/04/18 06:33 Dose: 12.5 mls/hr Vancomycin IV Pharmacy to Dose (1 ea/ Sodium Chloride) 500 mls @ 250 mls/hr IV X1 PRN; Protocol PRN Reason: Rx to Dose Fentanyl () 100 mls @ 2.5 mls/hr IV .Q40H [facility] Last Admin: 06/03/18 18:27 Dose: 2.5 mls/hr Heparin Sodium/Dextrose () 25,000 units in 250 mls @ 11 mls/hr IV .[id number] [facility]; Protocol Last Admin: 06/04/18 06:30 Dose: 11 mls/hr Vancomycin HCl (Vancomycin) 1,000 mg in 200 mls @ 200 mls/hr IV Q24H [facility] Last Admin: 06/04/18 01:55 Dose: 200 mls/hr Enteral Nutritional Formula (Vital Af 1.2 Abilio Liquid) 1,000 mls @ 75 mls/hr GT .[id number] [facility] Last Admin: 06/03/18 11:09 Dose: 75 mls/hr Pantoprazole Sodium 40 mg/ (Sodium Chloride) 110 mls @ 330 mls/hr IV Q12 [facility] Last Admin: 06/03/18 21:39 Dose: 330 mls/hr Amiodarone HCl 360 mg/ (Dextrose) 200 mls @ 16.67 mls/hr CONT INF .Q12H [facility] Last Admin: 06/04/18 01:56 Dose: 16.67 mls/hr Insulin Human Lispro (Humalog Kwikpen (Bkc)) 0 unit SC Q6 [facility]; Protocol Last Admin: 06/04/18 06:34 Dose: 14 u Magnesium Hydroxide (Milk Of Magnesia) 30 ml GT DAILY PRN PRN Reason: Constipation Metoprolol Tartrate (Lopressor (Beta Lisa)) 12.5 mg GT BID [facility] Last Admin: 06/03/18 21:38 Dose: 12.5 mg Ondansetron HCl (Zofran) 4 mg IV Q6H PRN PRN PRN Reason: NAUSEA/VOMITING Sodium Chloride () 5 - 15 ml IV UD PRN PRN Reason: SALINE FLUSH Last Admin: 06/03/18 13:12 Dose: 15 ml Medical Necessity - Tobacco Use Smoking Status: Former smoker Assessment/Plan All Active Problems (Last Updated 06/02/18 @ 03:12 by Sally Cm MD) Atrial fibrillation and flutter (Acute) Fever (Acute) Anemia (Acute) Thrombocytopenia (Acute) 77-year-old male with past medical history of metastatic prostate cancer to the bone, history of aortic valve replacement with bioprosthetic valve, CKD, h ypertension, BPH admitted on 06/02/18 with altered mental status initially managed as sepsis secondary to acute cystitis. Patient was found to have gone into respiratory failure resulting in intubation and transferred to the ICU 1. Acute respiratory failure, unclear etiology,remains intubated, on mechanical ventilator Initial chest x-ray was negative for infiltrate, VQ scan shows low probability for PE Subsequent chest x-ray and chest CT without contrast showed bilateral pleural effusions 2D echo shows EF of 65%, stage 1 diastolic dysfunction, no acute abnormality Property Controller consulted, will continue per recommendations 2. A. fib/A. flutter with RVR, history of paroxysmal atrial fibrillation, rate is better controlled, in normal sinus rhythm On amiodarone, metoprolol, heparin drip 3. Anemia, microchromic anemia, drop in hemoglobin to 6.8, status post 2 units packed RBCs. Repeat Hb today is 8.8, no clear source of bleeding Will continue to monitor HH 4. Sepsis secondary to enterococcus UTI, possible CAP, on Zosyn and Vancomycin, Continues to have fevers despite being on antibiotics ID consulted, CT abdomen and pelvis pending. 5. Acute metabolic encephalopathy secondary to sepsis, intubated now, will follow 6. Indeterminate troponins, likely secondary to sepsis and respiratory failure, peaked at 0.099, dropped to 0.084 7. Mild rhabdomyolysis, improving 8. CKD stage 3, Cr is about his baseline, will be monitoring 9. Hypertension, relatively hypotension, started on metoprolol 12.5mg GT BID, will continue to monitor 10. Metastatic prostate cancer with metastases to the bone, never treated 11. s/p aortic valve replacement with bioprosthetic valve 12. BPH s/p crump catheter 13. DVT PPx- on Heparin drip Code Visit Inpatient E&M: 83379 Subs Hosp L3
[2018-06-04] MEDS: Metoprolol Tartrate 25 MG Tablet 12.5 MG GT (08:58)
[2018-06-04] MEDS: Acetaminophen 650 MG/20 ML UDC GT (08:59)
--- NOTE | 2018-06-04 09:48 | PN.CARD_ITS ---
Subjectve: Patient seen and evaluated. Still intubated. Objective: Vital Signs Temp Pulse Resp BP Pulse Ox 100.8 F H 105 H 26 H 127/52 H 97 06/04/18 09:00 06/04/18 09:00 06/04/18 09:00 06/04/18 09:00 06/04/18 09:00 Oxygen Flow Rate (L/min) 2 Oxygen Delivery Method Mechanical Ventilator Weight: 172 lb 13.478 oz Body Mass Index (BMI) 27.1 Finger Stick Blood Glucose 95 Intake and Output for Last 24 Hours 06/02/18 06/03/18 06/04/18 23:59 23:59 23:59 Intake Total 1435 / 1435 2523 / 2523 2290 / 2290 Output Total 500 / 500 1125 / 1125 450 / 450 Balance 935 / 935 1398 / 1398 1840 / 1840 General: Ill Appearing HEENT: PERRL, EOMI, Sclera Non Icteric Neck: Supple, Good ROM, No Lymph Node Enlargement Lungs: Clear to auscultation Cardiovascular: Regular Rhythm, Normal S1, Normal S2, No Rubs, No Gallops Murmur Murmur: Grade 2/6, Early Systolic, LLSB Vascular: No Carotid Bruits, Normal Femoral Pulses, Normal Radial Pulses, Normal Dorsalis Pedal Pulse, Normal Posterior Tibial Pulses Abdomen: Bowel Sounds Present, Soft, Non Tender, No HSM, No Organomegaly Extremities: No Cyanosis, No Clubbing, No edema Neurological: No Focal Motor or Sensory Deficit 06/03/18 06:15: B-Natriuretic Peptide 121.7 H 06/03/18 11:15: Hgb 7.3 L, Hct 23.6 L 06/03/18 14:05: APTT 67.9 H 06/03/18 15:45: Hgb 6.8 L, Hct 21.8 L 06/03/18 16:30: Hgb Cancelled, Hct Cancelled 06/03/18 19:40: APTT 83.5 H 06/04/18 00:40: Hgb 9.2 L, Hct 28.1 L 06/04/18 03:30: Sodium 145, Potassium 4.2, Chloride 114 H, Carbon Dioxide 17.0 L , Anion Gap 14, BUN 102 H*, Creatinine 1.92 H, Est GFR (MDRD) Af Amer 44 L, Est GFR (MDRD) Non-Af 36 L, BUN/Creatinine Ratio 53.1 H, Glucose 496 H*, Calcium 8.2 L 06/04/18 03:30: WBC 10.2, RBC 3.02 L, Hgb 8.8 L, Hct 27.4 L, MCV 90.7, MCH 29.1, MCHC 32.1, RDW 16.7 H, RDW Differential 54.4 H, Plt Count 74 L, MPV 10.5, Neut % (Auto) Not Reportable, Absolute Neuts (auto) 8.3 H, Total Counted 100, Neutrophils % (Manual) 69, Band Neutrophils % 7 H, Lymphocytes % (Manual) 16 L, Monocytes % (Manual) 2, Eosinophils % (Manual) 1, Metamyelocytes % 4 H, Myelocytes % 1 H, Nucleated RBC % 4.4 06/04/18 03:30: APTT 73.0 H Rhythm: EKG: ECHO: Stress Test: Cardiac Cath: PCI: CT Surgery: Holter monitor: EPS: PPM: CXR: Chest CT Scan: Medical Necessity - Tobacco Use Smoking Status: Former smoker Assessment/Plan 1. Atrial fibrillation/flutter The patient has demonstrated evidence of atrial fibrillation/flutter. He is c urrently in sinus rhythm. Continue to follow him in the ICU. 2. Status post aortic valve replacement: Bioprosthetic He does have an underlying bioprosthetic aortic valve. There was no comment on any concerns with respect to his transthoracic echocardiogram. However, based upon his underlying clinical scenario with his fevers, concerns of a possible sepsis type syndrome, and if no definitive etiology for his infectious related events, he may need to be considered for further evaluation of his aortic valve for the possibility of infectious endocarditis with a transthoracic echocardiogram. Transthoracic echocardiogram did not necessarily demonstrate any evidence of endocarditis however. 3. Hyperlipidemia He can continue medical management as deemed appropriate and tolerated. 4. Hypertension At the present time his blood pressure is good. He has rate limiting medications that may affect blood pressure adversely are on hold. Any other antihypertensive type agents are on hold. Depending upon his course he may need vasopressor agents to support his blood pressure. 5. Renal insufficiency He does have a history of renal insufficiency. It may be exacerbated if he is truly intravascularly depleted based upon his situation at home being found down, lethargic, and with altered mental status. He will continue to receive IV fluids as deemed appropriate by the ICU staff. His renal function will be followed. 6. Anemia He is anemic. The etiology is unclear at this time. He is being evaluated by the surgical service. With his elevated BUN I suspect he has some slow GI process. Thank you for allowing me to participate in the care of your patient. Please don't hesitate to call if any issues arise
[2018-06-04 10:13] LABS: Partial Thromboplast Time 57.5 Seconds (24.1-36.2)
[2018-06-04] MEDS: Chlorhexidine 15 ML PO ×2 (10:27→21:12)
[2018-06-04] MEDS: DULoxetine Hcl 30 MG Capsule PO (10:27)
[2018-06-04] MEDS: Propofol 10MG/Ml 1,000 MG/100 ML Bottle 4.596 MG CONT INF ×2 (10:28→23:23)
[2018-06-04] MEDS: Vital AF 1.2 Cal Liquid 1,000 ML 50 ML GT (11:43)
[2018-06-04 11:55] LABS: Bedside Glucose 394 mg/dL (70-110)
--- NOTE | 2018-06-04 12:33 | CT_ITS ---
STUDY: CT ABDOMEN AND PELVIS WITHOUT CONTRAST REASON FOR EXAM: Male, 77 years old. Back pain. History of metastatic prostate cancer. Sepsis. RADIATION DOSAGE (If Supplied By Facility): CTDIvol = ( 21.47 ) mGy, DLP = ( 1121.08 ) mGycm TECHNIQUE: Transaxial images were obtained from the dome of the diaphragm to the symphysis pubis with oral contrast, and without intravenous contrast. Sagittal and coronal images were reconstructed. Individualized dose optimization techniques were used for this CT. COMPARISON: Comparison is made with prior study dated September 18, 2017. FINDINGS: There is evidence of bibasilar atelectasis and/or infiltrates with small bilateral pleural effusions. Prior CABG. Coronary artery calcifications. Normal liver. Normal gallbladder and extrahepatic biliary system. Normal spleen. Normal pancreas. Normal bilateral adrenal glands. Moderate degree of bilateral hydronephrosis and hydroureter worse on the right side. Normal visualized stomach. Normal small intestine. Moderate amount of fecal material is seen in the colon. The appendix is visualized and appears normal. There is diffuse atherosclerotic calcification of the abdominal aorta and its major visceral branches, without a demonstrated aneurysm. Normal inferior vena cava. Normal retroperitoneum. A [place] catheter is within the urinary bladder. Urinary bladder is empty. There is diffuse thickening of the bladder wall. Normal abdominal wall. There are diffuse degenerative changes of the visualized lumbar spine. There is evidence of sclerotic metastasis with loss of height of the L1, L2 and L4 vertebrae. There is also evidence of sclerotic metastasis involving the pelvic bones. CT/Abdomen/Pel W ORAL Cont Only IMPRESSION: Bilateral hydronephrosis right greater than left with bilateral hydroureter. Diffusely thickened bladder wall. Electronically Signed: Javier Unger, at 15:28 EST , Service support ,
--- NOTE | 2018-06-04 12:39 | CON.PCM_ITS ---
Problem List (1) Fever Status: Acute Reason for Consult: fever Consulted by: Dr. Nicholson History of Present Illness: The patient is a 77 year old M with metastatic prostate cancer and valve replacement who presented with confusion, fever on 06/02. Given ceftriaxone, admitted, tmax was 102.5. Condition worsened later on 06/02 with hypotension and afib. Pulm consulted, abx changed to vanc/zosyn. Now on vent in icu. Fever improved overnight. Pt denies abd pain. Awake on vent. ROS unobtainable due to mental status. 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 Model [id number] [id number] @ [facility] BPH with urinary obstruction (Chronic) Hypertension (Chronic) Allergies/Adverse Reactions: Allergies albuterol Allergy (Verified 06/02/18 01:14) Unknown clonazepam Allergy (Verified 06/02/18 01:14) Unknown ibuprofen Allergy (Verified 06/02/18 01:14) Unknown ipratropium Allergy (Verified 06/02/18 01:14) Unknown aspirin Adverse Reaction (Verified 06/02/18 01:14) Vomiting pt states he vomits blood Home Medications: Ambulatory Orders Medication Instructions Recorded ALPRAZolam [Xanax] 0.5 mg PO 4X/DAY PRN 10/24/15 Ascorbic Acid [Vitamin C] 1,000 mg PO DAILY 10/24/15 Fosinopril Sodium [Monopril] 5 mg PO DAILY 10/24/15 Garlic 1 mg PO DAILY 10/24/15 Metformin HCl [Glucophage] 1,000 mg PO DAILY 10/24/15 Multivitamin [Daily Multiple 1 ea PO DAILY 10/24/15 Vitamin] [place]-3 Fatty Acids/Fish Oil 1,000 mg PO DAILY 10/24/15 [[place] 3 1,000 mg Softgel] Vitamin B Complex 1 ea PO DAILY 10/24/15 Vitamin E 1,000 unit PO DAILY 10/24/15 Cyanocobalamin (Vitamin B-12) 5,000 mcg SL BID 09/18/17 [Vitamin B-12] Methylsulfonylmethane [MSM] 1,500 mg PO BID 09/18/17 Niacinamide 500 mg PO DAILY 09/18/17 Pyridoxine HCl [Vitamin B6] 100 mg PO BID 09/18/17 Sodium Chloride 1 gm PO DAILY 09/18/17 Ubidecarenone [Co Q-10] 200 mg PO DAILY 09/18/17 Vanadyl Sulfate 10 mg PO DAILY 09/18/17 furosemide 40 mg tablet 40 mg PO QDAY #90 tab 09/25/17 simvastatin 40 mg tablet 20 mg PO QHS 09/25/17 Cholecalciferol (VIT D3) [Vitamin 1,000 unit PO DAILY 10/29/17 D3] Ferrous Sulfate [Iron] 325 mg PO DAILY 10/29/17 Apixaban [Eliquis] 5 mg PO BID 03/14/18 Duloxetine Hcl [Cymbalta] 30 mg pe PO DAILY 03/14/18 Acetaminophen [Tylenol Extra 500 mg PO Q4H PRN PRN #20 tablet 03/19/18 Strength] Lisinopril [Zestril] mg PO DAILY 03/19/18 Metoprolol Tartrate [Lopressor 50 mg PO BID 06/02/18 (beta lisa)] - Social History SMOKING STATUS:: Former smoker Vital Signs Temp Pulse Resp BP Pulse Ox 100.6 F H 91 20 H 124/48 H 99 06/04/18 12:00 06/04/18 12:00 06/04/18 12:00 06/04/18 12:00 06/04/18 12:00 Oxygen Flow Rate (L/min) 2 Oxygen Delivery Method Mechanical Ventilator Weight: 78.4 kg Body Mass Index (BMI) 27.1 Finger Stick Blood Glucose 95 Microbiology Past 72 Hours 06/03/18 15:20 Urine Culture - Preliminary Urine Catheter - [place] Gram positive organism 06/02/18 22:30 Gram Stain - Final Sputum, Expectorated/Coughed Respiratory Culture - Preliminary Appears to be normal respiratory betty. Further studies to follow. 06/02/18 01:55 Urine Culture - Final Urine, Clean Catch GPC Poss Enterococcus sp 06/02/18 01:10 Blood Culture - Preliminary Blood Culture (Wb) - Right Forearm No growth in 48 hours. 06/02/18 01:24 Blood Culture - Preliminary Blood Culture (Wb) - Anticubital Left No growth in 48 hours. 06/02/18 22:30 Respiratory Panel (PCR) - Final Mucosa - Nose 06/02/18 02:15 Influenza Types A,B Direct FA (CHELE) - Final Mucosa - Nose Laboratory Tests Past 24 Hrs 06/03/18 06/03/18 06/03/18 06:15 08:00 14:05 WBC RBC Hgb Hct MCV MCH MCHC RDW RDW Differential Plt Count MPV Neut % (Auto) Absolute Neuts (auto) Absolute Lymphs (auto) Total Counted Neutrophils % (Manual) Band Neutrophils % Lymphocytes % (Manual) Monocytes % (Manual) Eosinophils % (Manual) Metamyelocytes % Myelocytes % Nucleated RBC % Diff Path Review Platelet Estimate RBC Morphology Polychromasia Anisocytosis Spherocytes Ovalocytes Absolute Retic APTT 67.9 H Sodium Potassium Chloride Carbon Dioxide Anion Gap BUN Creatinine Estim Creat Clear Calc Est GFR (MDRD) Af Amer Est GFR (MDRD) Non-Af BUN/Creatinine Ratio Glucose Calcium Total Creatine Kinase 227 Crossmatch See Detail 06/03/18 06/03/18 06/03/18 15:45 16:30 19:40 WBC RBC Hgb 6.8 L Cancelled Hct 21.8 L Cancelled MCV MCH MCHC RDW RDW Differential Plt Count MPV Neut % (Auto) Absolute Neuts (auto) Absolute Lymphs (auto) Total Counted Neutrophils % (Manual) Band Neutrophils % Lymphocytes % (Manual) Monocytes % (Manual) Eosinophils % (Manual) Metamyelocytes % Myelocytes % Nucleated RBC % Diff Path Review Platelet Estimate RBC Morphology Polychromasia Anisocytosis Spherocytes Ovalocytes Absolute Retic APTT 83.5 H Sodium Potassium Chloride Carbon Dioxide Anion Gap BUN Creatinine Estim Creat Clear Calc Est GFR (MDRD) Af Amer Est GFR (MDRD) Non-Af BUN/Creatinine Ratio Glucose Calcium Total Creatine Kinase Crossmatch 06/04/18 06/04/18 06/04/18 00:40 03:30 03:30 WBC 10.2 RBC 3.02 L Hgb 9.2 L 8.8 L Hct 28.1 L 27.4 L MCV 90.7 MCH 29.1 MCHC 32.1 RDW 16.7 H RDW Differential 54.4 H Plt Count 74 L MPV 10.5 Neut % (Auto) Not Reportable Absolute Neuts (auto) 8.3 H Absolute Lymphs (auto) 1.63 Total Counted 100 Neutrophils % (Manual) 69 Band Neutrophils % 7 H Lymphocytes % (Manual) 16 L Monocytes % (Manual) 2 Eosinophils % (Manual) 1 Metamyelocytes % 4 H Myelocytes % 1 H Nucleated RBC % 4.4 Diff Path Review May foll Platelet Estimate MOD DEC RBC Morphology RARE Polychromasia 1+ Anisocytosis 1+ Spherocytes RARE H Ovalocytes RARE Absolute Retic 0.45 APTT Sodium 145 Potassium 4.2 Chloride 114 H Carbon Dioxide 17.0 L Anion Gap 14 BUN 102 H* Creatinine 1.92 H Estim Creat Clear Calc 28.61 Est GFR (MDRD) Af Amer 44 L Est GFR (MDRD) Non-Af 36 L BUN/Creatinine Ratio 53.1 H Glucose 496 H* Calcium 8.2 L Total Creatine Kinase Crossmatch 06/04/18 06/04/18 03:30 09:55 WBC RBC Hgb Hct MCV MCH MCHC RDW RDW Differential Plt Count MPV Neut % (Auto) Absolute Neuts (auto) Absolute Lymphs (auto) Total Counted Neutrophils % (Manual) Band Neutrophils % Lymphocytes % (Manual) Monocytes % (Manual) Eosinophils % (Manual) Metamyelocytes % Myelocytes % Nucleated RBC % Diff Path Review Platelet Estimate RBC Morphology Polychromasia Anisocytosis Spherocytes Ovalocytes Absolute Retic APTT 73.0 H 57.5 H Sodium Potassium Chloride Carbon Dioxide Anion Gap BUN Creatinine Estim Creat Clear Calc Est GFR (MDRD) Af Amer Est GFR (MDRD) Non-Af BUN/Creatinine Ratio Glucose Calcium Total Creatine Kinase Crossmatch - Other Studies Radiology: [] reviewed Other Studies: [] Route of nutrition/ use of supplements: [] Nutritional Intake: [] IV Site: [] [place] Catheter: [] - Physical Exam General: Alert, Cooperative, No apparent distress HEENT: Atraumatic, PERRLA, EOMI Neck: Supple, No Nodes Lungs: Rhonchi - scattered Cardiovascular: Regular rate, Regular Rhythm, Murmur Abdomen: Soft, Non Tender, Non-Distended Extremities: No edema Skin: No rashes Musculoskeletal: No Tenderness to Palpation of Joints or Extremities Neurological: Cranial nerves II-XII grossly intact - Assessment/Plan Antibiotics: [] Assessment/Plan: [] Active and Suspected Problems (Last Updated 06/02/18 @ 03:12 by Sally Cm MD) Atrial fibrillation and flutter (Acute) Fever (Acute) Anemia (Acute) Thrombocytopenia (Acute) Fever - improving. UA with mild pyuria, Ucx with only small growth of enterococcus-like. On vanc/zosyn. Bcx pending. With h/o metastatic prostate cancer and no clear source of his fever so far, will check CT abd/pelvis. Will follow, thank you, d/w Dr. Nicholson.
--- NOTE | 2018-06-04 12:45 | CASEMGMT ---
Pt does not have LW, as he reported at admission. Both general and medical POA forms in [facility], SW printed and placed in chart. VENANCIO Collado, [employer]
[2018-06-04 14:44] LABS: Pathologist Review Reviewed
[2018-06-04 15:19] LABS: Hematocrit 26.3 % (40-54); Hemoglobin 8.6 g/dl (13.0-16.5)
[2018-06-04 15:44] LABS: Hemoglobin A1c 6.2 % (4.2-6.3)
--- NOTE | 2018-06-04 15:51 | CON.PCM_ITS ---
<Opal Kyle - Last Filed: 06/04/18 15:45> Problem List (1) Anemia Status: Acute Reason for Consult Date of Consultation: 06/04/18 Reason for Consultation: Acute anemia History of Present Illness: The patient is a 77 year old M who is evaluated intubated in his bed. Unable to obtain full history from the patient. SonESTHER is not currently in the patient's room. Patient was admitted on 06/02 after multiple falls and change in mental status. Based on previous history, patient has metastatic prostate cancer. Throughout his hospitalization his hemoglobin has dropped to 6.8 on 06/03. Patient has received 2 units of blood. Currently his hgb is 8.6. Unable to obtain if patient has had prior endoscopy or previous history of anemia. Patient denies abdominal pain. Patient was transferred to ICU on 06/02 secondary to hypotension and acute respiratory distress. Patient was also found to be in AFIB with RVR. He is being seen by infectious disease, cardiology and head bookkeeper. Patient is on Eliquis at home. He is currently on a Heparin drip. 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 Model TFGT- 25A @ [facility] BPH with urinary obstruction (Chronic) Hypertension (Chronic) Medical History: Medical History (Last Reviewed 06/04/18 @ 15:59 by Opal Kyle PA-C) Dyslipidemia (Chronic) E78.5 Paroxysmal atrial fibrillation (Chronic) I48.0 BPH with urinary obstruction (Chronic) N40.1, N13.8 Hypertension (Chronic) I10 Arthritis M19.90 GERD (gastroesophageal reflux disease) K21.9 Macrocytic anemia D53.9 Mass of bladder N32.89 Type 2 diabetes mellitus without complications E11.9 Allergies albuterol Allergy (Verified 06/02/18 01:14) Unknown clonazepam Allergy (Verified 06/02/18 01:14) Unknown ibuprofen Allergy (Verified 06/02/18 01:14) Unknown ipratropium Allergy (Verified 06/02/18 01:14) Unknown aspirin Adverse Reaction (Verified 06/02/18 01:14) Vomiting pt states he vomits blood Home Medications: Ambulatory Orders Medication Instructions Recorded ALPRAZolam [Xanax] 0.5 mg PO 4X/DAY PRN 10/24/15 Ascorbic Acid [Vitamin C] 1,000 mg PO DAILY 10/24/15 Fosinopril Sodium [Monopril] 5 mg PO DAILY 10/24/15 Garlic 1 mg PO DAILY 10/24/15 Metformin HCl [Glucophage] 1,000 mg PO DAILY 10/24/15 Multivitamin [Daily Multiple 1 ea PO DAILY 10/24/15 Vitamin] [place]-3 Fatty Acids/Fish Oil 1,000 mg PO DAILY 10/24/15 [[place] 3 1,000 mg Softgel] Vitamin B Complex 1 ea PO DAILY 10/24/15 Vitamin E 1,000 unit PO DAILY 10/24/15 Cyanocobalamin (Vitamin B-12) 5,000 mcg SL BID 09/18/17 [Vitamin B-12] Methylsulfonylmethane [MSM] 1,500 mg PO BID 09/18/17 Niacinamide 500 mg PO DAILY 09/18/17 Pyridoxine HCl [Vitamin B6] 100 mg PO BID 09/18/17 Sodium Chloride 1 gm PO DAILY 09/18/17 Ubidecarenone [Co Q-10] 200 mg PO DAILY 09/18/17 Vanadyl Sulfate 10 mg PO DAILY 09/18/17 furosemide 40 mg tablet 40 mg PO QDAY #90 tab 09/25/17 simvastatin 40 mg tablet 20 mg PO QHS 09/25/17 Cholecalciferol (VIT D3) [Vitamin 1,000 unit PO DAILY 10/29/17 D3] Ferrous Sulfate [Iron] 325 mg PO DAILY 10/29/17 Apixaban [Eliquis] 5 mg PO BID 03/14/18 Duloxetine Hcl [Cymbalta] 30 mg pe PO DAILY 03/14/18 Acetaminophen [Tylenol Extra 500 mg PO Q4H PRN PRN #20 tablet 03/19/18 Strength] Lisinopril [Zestril] mg PO DAILY 03/19/18 Metoprolol Tartrate [Lopressor 50 mg PO BID 06/02/18 (beta lisa)] Surgical History: Surgical History (Last Reviewed 06/04/18 @ 15:59 by Opal Kyle PA-C) History of aortic valve replacement with bioprosthetic valve (Chronic) Onset Date: ~11/12/16 Z95.3 Trifecta GT Tissue Heart Valve Serial # [id number] Model TFGT- 25A @ [facility] Surgical History: cataract - bilateral, - - aortic valve replacement October 2016, 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 Lives: Alone Smoking Status: Former smoker Alcohol: None, Rare - *Family History Sibling Family History: Family History (Last Reviewed 06/04/18 @ 15:59 by Opal Kyle PA-C) Sister Heart disease Brother Cancer History Items: Heart Disease Maternal Family History: Family History (Last Reviewed 06/04/18 @ 15:59 by Opal Kyle PA-C) Sister Heart disease Brother Cancer History Items: No pertinent history Paternal Family History: Family History (Last Reviewed 06/04/18 @ 15:59 by Opal Kyle PA-C) Sister Heart disease Brother Cancer History Items: No pertinent history Review of Systems Unable to obtain accurate/complete ROS d/t: Patient is intubated Patient Problems: Active and Suspected Problems (Last Reviewed 06/04/18 @ 15:59 by Opal Kyle PA-C) Atrial fibrillation and flutter (Acute) Fever (Acute) Anemia (Acute) Thrombocytopenia (Acute) - Physical Exam General: Cooperative HEENT: Atraumatic, PERRLA, EOMI, Normocephalic Neck: Supple, No JVD, Negative Carotid Bruits Lungs: Rales - bilateral Cardiovascular: Regular rate, No murmurs Abdomen: Soft, Non Tender, Non-Distended, Hypoactive Bowel Sounds Extremities: No edema, Capillary Refill Less than 3 Seconds Skin: No rashes, No breakdown Musculoskeletal: No Tenderness to Palpation of Joints or Extremities Neurological: Neuro grossly intact Psych/Mental Status: Normal Affect, Appropriate Vital Signs Temp Pulse Resp BP Pulse Ox 100.6 F H 91 28 H 127/53 H 99 06/04/18 12:00 06/04/18 15:44 06/04/18 15:00 06/04/18 15:00 06/04/18 15:00 Oxygen Flow Rate (L/min) 2 Oxygen Delivery Method Mechanical Ventilator Weight: 172 lb 13.478 oz Body Mass Index (BMI) 27.1 Finger Stick Blood Glucose 95 Intake and Output for Last 24 Hours 06/02/18 06/03/18 06/04/18 23:59 23:59 23:59 Intake Total 1435 / 1435 2523 / 2523 3225 / 3225 Output Total 500 / 500 1125 / 1125 700 / 700 Balance 935 / 935 1398 / 1398 2525 / 2525 Microbiology Past 72 Hours 06/03/18 15:20 Urine Culture - Preliminary Urine Catheter - [place] Gram positive organism 06/02/18 22:30 Gram Stain - Final Sputum, Expectorated/Coughed Respiratory Culture - Preliminary Appears to be normal respiratory betty. Further studies to follow. 06/02/18 01:55 Urine Culture - Final Urine, Clean Catch GPC Poss Enterococcus sp 06/02/18 01:10 Blood Culture - Preliminary Blood Culture (Wb) - Right Forearm No growth in 48 hours. 06/02/18 01:24 Blood Culture - Preliminary Blood Culture (Wb) - Anticubital Left No growth in 48 hours. 06/02/18 22:30 Respiratory Panel (PCR) - Final Mucosa - Nose 06/02/18 02:15 Influenza Types A,B Direct FA (CHELE) - Final Mucosa - Nose Laboratory Tests Past 24 Hrs 06/03/18 06/03/18 06/03/18 08:00 15:45 19:40 WBC RBC Hgb 6.8 L Hct 21.8 L MCV MCH MCHC RDW RDW Differential Plt Count MPV Neut % (Auto) Absolute Neuts (auto) Absolute Lymphs (auto) Total Counted Neutrophils % (Manual) Band Neutrophils % Lymphocytes % (Manual) Monocytes % (Manual) Eosinophils % (Manual) Metamyelocytes % Myelocytes % Nucleated RBC % Diff Path Review Platelet Estimate RBC Morphology Polychromasia Anisocytosis Spherocytes Ovalocytes Absolute Retic APTT 83.5 H Sodium Potassium Chloride Carbon Dioxide Anion Gap BUN Creatinine Estim Creat Clear Calc Est GFR (MDRD) Af Amer Est GFR (MDRD) Non-Af BUN/Creatinine Ratio Glucose Hemoglobin A1c Calcium Crossmatch See Detail 06/04/18 06/04/18 06/04/18 00:40 03:30 03:30 WBC 10.2 RBC 3.02 L Hgb 9.2 L 8.8 L Hct 28.1 L 27.4 L MCV 90.7 MCH 29.1 MCHC 32.1 RDW 16.7 H RDW Differential 54.4 H Plt Count 74 L MPV 10.5 Neut % (Auto) Not Reportable Absolute Neuts (auto) 8.3 H Absolute Lymphs (auto) 1.63 Total Counted 100 Neutrophils % (Manual) 69 Band Neutrophils % 7 H Lymphocytes % (Manual) 16 L Monocytes % (Manual) 2 Eosinophils % (Manual) 1 Metamyelocytes % 4 H Myelocytes % 1 H Nucleated RBC % 4.4 Diff Path Review Reviewed Platelet Estimate MOD DEC RBC Morphology RARE Polychromasia 1+ Anisocytosis 1+ Spherocytes RARE H Ovalocytes RARE Absolute Retic 0.45 APTT Sodium 145 Potassium 4.2 Chloride 114 H Carbon Dioxide 17.0 L Anion Gap 14 BUN 102 H* Creatinine 1.92 H Estim Creat Clear Calc 28.61 Est GFR (MDRD) Af Amer 44 L Est GFR (MDRD) Non-Af 36 L BUN/Creatinine Ratio 53.1 H Glucose 496 H* Hemoglobin A1c Calcium 8.2 L Crossmatch 06/04/18 06/04/18 06/04/18 03:30 09:55 15:00 WBC RBC Hgb 8.6 L Hct 26.3 L MCV MCH MCHC RDW RDW Differential Plt Count MPV Neut % (Auto) Absolute Neuts (auto) Absolute Lymphs (auto) Total Counted Neutrophils % (Manual) Band Neutrophils % Lymphocytes % (Manual) Monocytes % (Manual) Eosinophils % (Manual) Metamyelocytes % Myelocytes % Nucleated RBC % Diff Path Review Platelet Estimate RBC Morphology Polychromasia Anisocytosis Spherocytes Ovalocytes Absolute Retic APTT 73.0 H 57.5 H Sodium Potassium Chloride Carbon Dioxide Anion Gap BUN Creatinine Estim Creat Clear Calc Est GFR (MDRD) Af Amer Est GFR (MDRD) Non-Af BUN/Creatinine Ratio Glucose Hemoglobin A1c Calcium Crossmatch 06/04/18 15:00 WBC RBC Hgb Hct MCV MCH MCHC RDW RDW Differential Plt Count MPV Neut % (Auto) Absolute Neuts (auto) Absolute Lymphs (auto) Total Counted Neutrophils % (Manual) Band Neutrophils % Lymphocytes % (Manual) Monocytes % (Manual) Eosinophils % (Manual) Metamyelocytes % Myelocytes % Nucleated RBC % Diff Path Review Platelet Estimate RBC Morphology Polychromasia Anisocytosis Spherocytes Ovalocytes Absolute Retic APTT Sodium Potassium Chloride Carbon Dioxide Anion Gap BUN Creatinine Estim Creat Clear Calc Est GFR (MDRD) Af Amer Est GFR (MDRD) Non-Af BUN/Creatinine Ratio Glucose Hemoglobin A1c 6.2 Calcium Crossmatch POC Glucose 06/04/18 06/04/18 06/04/18 11:39 06:32 00:38 POC Glucose 394 H 383 H 360 H 06/03/18 17:23 POC Glucose 286 H Assessment/Plan All Active Problems (Last Reviewed 06/04/18 @ 15:59 by Opal Kyle PA-C) Atrial fibrillation and flutter (Acute) Fever (Acute) Anemia (Acute) Thrombocytopenia (Acute) I have been consulted in conjunction with Dr. Sandoval. Impression: Acute anemia of unknown source Plan: Patient has been discussed with Dr. Sandoval. At this time, we will continue to monitor his H and H. Platelet count is also low at this time. Once patient is more stable or if patient's condition changes, Dr. Sandoval will plan to perform an upper scope at that time. Procedure was not explained today to the patient, however this will be discussed further when an upper scope is scheduled. We will continue to monitor this patient. Thank you for allowing us to participate in this patient's care. <Francisco Javier Sandoval - Last Filed: 06/04/18 16:54> Reason for Consult History of Present Illness: The patient is a 77 year old M [] Past Medical History Medical History: Medical History (Last Reviewed 06/04/18 @ 15:59 by Opal Kyle PA-C) Dyslipidemia (Chronic) E78.5 Paroxysmal atrial fibrillation (Chronic) I48.0 BPH with urinary obstruction (Chronic) N40.1, N13.8 Hypertension (Chronic) I10 Arthritis M19.90 GERD (gastroesophageal reflux disease) K21.9 Macrocytic anemia D53.9 Mass of bladder N32.89 Type 2 diabetes mellitus without complications E11.9 Allergies albuterol Allergy (Verified 06/02/18 01:14) Unknown clonazepam Allergy (Verified 06/02/18 01:14) Unknown ibuprofen Allergy (Verified 06/02/18 01:14) Unknown ipratropium Allergy (Verified 06/02/18 01:14) Unknown aspirin Adverse Reaction (Verified 06/02/18 01:14) Vomiting pt states he vomits blood Surgical History: Surgical History (Last Reviewed 06/04/18 @ 15:59 by Opal Kyle PA-C) History of aortic valve replacement with bioprosthetic valve (Chronic) Onset Date: ~11/12/16 Z95.3 Trifecta GT Tissue Heart Valve Serial # [id number] Model TFGT- 25A @ [facility] - *Family History Sibling Family History: Family History (Last Reviewed 06/04/18 @ 15:59 by Opal Kyle PA-C) Sister Heart disease Brother Cancer Maternal Family History: Family History (Last Reviewed 06/04/18 @ 15:59 by Opal Kyle PA-C) Sister Heart disease Brother Cancer Paternal Family History: Family History (Last Reviewed 06/04/18 @ 15:59 by Opal Kyle PA-C) Sister Heart disease Brother Cancer - Physical Exam Vital Signs Temp Pulse Resp BP Pulse Ox 100.6 F H 91 19 H 128/48 H 98 06/04/18 12:00 06/04/18 16:00 06/04/18 16:00 06/04/18 16:00 06/04/18 16:00 Oxygen Flow Rate (L/min) 2 Oxygen Delivery Method Mechanical Ventilator Weight: 172 lb 13.478 oz Body Mass Index (BMI) 27.1 Finger Stick Blood Glucose 95 Intake and Output for Last 24 Hours 06/02/18 06/03/18 06/04/18 23:59 23:59 23:59 Intake Total 1435 / 1435 2523 / 2523 3225 / 3225 Output Total 500 / 500 1125 / 1125 700 / 700 Balance 935 / 935 1398 / 1398 2525 / 2525 Microbiology Past 72 Hours 06/03/18 15:20 Urine Culture - Preliminary Urine Catheter - [place] Gram positive organism 06/02/18 22:30 Gram Stain - Final Sputum, Expectorated/Coughed Respiratory Culture - Preliminary Appears to be normal respiratory betty. Further studies to follow. 06/02/18 01:55 Urine Culture - Final Urine, Clean Catch GPC Poss Enterococcus sp 06/02/18 01:10 Blood Culture - Preliminary Blood Culture (Wb) - Right Forearm No growth in 48 hours. 06/02/18 01:24 Blood Culture - Preliminary Blood Culture (Wb) - Anticubital Left No growth in 48 hours. 06/02/18 22:30 Respiratory Panel (PCR) - Final Mucosa - Nose 06/02/18 02:15 Influenza Types A,B Direct FA (CHELE) - Final Mucosa - Nose Laboratory Tests Past 24 Hrs 06/03/18 06/03/18 06/04/18 08:00 19:40 00:40 WBC RBC Hgb 9.2 L Hct 28.1 L MCV MCH MCHC RDW RDW Differential Plt Count MPV Neut % (Auto) Absolute Neuts (auto) Absolute Lymphs (auto) Total Counted Neutrophils % (Manual) Band Neutrophils % Lymphocytes % (Manual) Monocytes % (Manual) Eosinophils % (Manual) Metamyelocytes % Myelocytes % Nucleated RBC % Diff Path Review Platelet Estimate RBC Morphology Polychromasia Anisocytosis Spherocytes Ovalocytes Absolute Retic APTT 83.5 H Sodium Potassium Chloride Carbon Dioxide Anion Gap BUN Creatinine Estim Creat Clear Calc Est GFR (MDRD) Af Amer Est GFR (MDRD) Non-Af BUN/Creatinine Ratio Glucose Hemoglobin A1c Calcium Crossmatch See Detail 06/04/18 06/04/18 06/04/18 03:30 03:30 03:30 WBC 10.2 RBC 3.02 L Hgb 8.8 L Hct 27.4 L MCV 90.7 MCH 29.1 MCHC 32.1 RDW 16.7 H RDW Differential 54.4 H Plt Count 74 L MPV 10.5 Neut % (Auto) Not Reportable Absolute Neuts (auto) 8.3 H Absolute Lymphs (auto) 1.63 Total Counted 100 Neutrophils % (Manual) 69 Band Neutrophils % 7 H Lymphocytes % (Manual) 16 L Monocytes % (Manual) 2 Eosinophils % (Manual) 1 Metamyelocytes % 4 H Myelocytes % 1 H Nucleated RBC % 4.4 Diff Path Review Reviewed Platelet Estimate MOD DEC RBC Morphology RARE Polychromasia 1+ Anisocytosis 1+ Spherocytes RARE H Ovalocytes RARE Absolute Retic 0.45 APTT 73.0 H Sodium 145 Potassium 4.2 Chloride 114 H Carbon Dioxide 17.0 L Anion Gap 14 BUN 102 H* Creatinine 1.92 H Estim Creat Clear Calc 28.61 Est GFR (MDRD) Af Amer 44 L Est GFR (MDRD) Non-Af 36 L BUN/Creatinine Ratio 53.1 H Glucose 496 H* Hemoglobin A1c Calcium 8.2 L Crossmatch 06/04/18 06/04/1806/04/19 09:55 15:00 15:00 WBC RBC Hgb 8.6 L Hct 26.3 L MCV MCH MCHC RDW RDW Differential Plt Count MPV Neut % (Auto) Absolute Neuts (auto) Absolute Lymphs (auto) Total Counted Neutrophils % (Manual) Band Neutrophils % Lymphocytes % (Manual) Monocytes % (Manual) Eosinophils % (Manual) Metamyelocytes % Myelocytes % Nucleated RBC % Diff Path Review Platelet Estimate RBC Morphology Polychromasia Anisocytosis Spherocytes Ovalocytes Absolute Retic APTT 57.5 H Sodium Potassium Chloride Carbon Dioxide Anion Gap BUN Creatinine Estim Creat Clear Calc Est GFR (MDRD) Af Amer Est GFR (MDRD) Non-Af BUN/Creatinine Ratio Glucose Hemoglobin A1c 6.2 Calcium Crossmatch POC Glucose 06/04/18 06/04/18 06/04/18 11:39 06:32 00:38 POC Glucose 394 H 383 H 360 H 06/03/18 17:23 POC Glucose 286 H Assessment/Plan Patient has been seen and examined. At the present time we are going to wait to see if he has any obvious signs of GI bleed before we entertain the thought of doing any forms of endoscopy.
[2018-06-04 17:16] LABS: Bedside Glucose 329 mg/dL (70-110)
[2018-06-04] MEDS: fentaNYL drip 100 ML 2.5 MCG IV (18:19)
--- NOTE | 2018-06-04 21:25 | NURSING ---
Upon checking for tube feed residual 5mL tube feed followed by 20 mL bright red blood aspirated from OG. Resistance met with aspiration and OG is flushed with 15 mL sterile water. 2 small blood clots and an additional 80mL of bright red blood aspirated from OG. OG connected to LIWS with no drainage, tube then disconnected from suction and flushed again with 15mL of sterile water and a third small blood clot is aspirated. OG connected back to LIWS and TF on hold, Dr. Nicholson to be notified.
[2018-06-04 23:45] LABS: Bedside Glucose 292 mg/dL (70-110)
[2018-06-05] VITALS (40 sets, daily range): BP systolic 91–131; BP diastolic 42–103; PULSE 79–140; RESP 12–30; TEMP 38.1–38.4; O2SAT 96–100
[2018-06-05 03:17] LABS: Vancomycin, Trough Level 11.8 ug/mL (5.0-15.0)
--- NOTE | 2018-06-05 03:48 | PCM.RX.CS ---
Consult Pharmacy has been consulted to manage selected antiobiotic: Vancomycin Type of Consult: Follow-up Suspected Infection: Pneumonia Prior Doses of Antibiotics Received/Current Regimen: Medications Vancomycin HCl 1,250 mg/ (Sodium Chloride) 275 mls @ 167 mls/hr IV Q24H GABRIELLE Discontinued Medications Vancomycin HCl (Vancomycin) 1,000 mg in 200 mls @ 200 mls/hr IV Q24H GABRIELLE Last Admin: 06/04/18 01:55 Dose: 200 mls/hr Labs: Sodium 145 mmol/L (136-145) 06/04/18 03:30 Potassium 4.2 mmol/L (3.5-5.1) 06/04/18 03:30 Chloride 114 mmol/L (98-107) H 06/04/18 03:30 Carbon Dioxide 17.0 mmol/L (21.0-32.0) L 06/04/18 03:30 Anion Gap 14 (5-15) 06/04/18 03:30 BUN 102 mg/dL (7-18) H* 06/04/18 03:30 Creatinine 1.92 mg/dL (0.70-1.30) H 06/04/18 03:30 Est GFR (MDRD) Af Amer 44 mL/min (>60) L 06/04/18 03:30 Est GFR (MDRD) Non-Af 36 mL/min (>60) L 06/04/18 03:30 BUN/Creatinine Ratio 53.1 RATIO (10-20) H 06/04/18 03:30 Glucose 496 mg/dL (74-106) H* 06/04/18 03:30 Vancomycin Trough 11.8 ug/mL (5.0-15.0) 06/05/18 02:00 Microbiology: Microbiology 06/03/18 15:20 Urine Catheter - [place] Urine Culture - Preliminary Gram positive organism 06/02/18 22:30 Sputum, Expectorated/Coughed Gram Stain - Final 06/02/18 22:30 Sputum, Expectorated/Coughed Respiratory Culture - Preliminary Appears to be normal respiratory betty. Further studies to follow. 06/02/18 01:55 Urine, Clean Catch Urine Culture - Final GPC Poss Enterococcus sp 06/02/18 01:10 Blood Culture (Wb) - Right Forearm Blood Culture - Preliminary No growth in 48 hours. 06/02/18 01:24 Blood Culture (Wb) - Anticubital Left Blood Culture - Preliminary No growth in 48 hours. 06/02/18 22:30 Mucosa - Nose Respiratory Panel (PCR) - Final 06/02/18 02:15 Mucosa - Nose Influenza Types A,B Direct FA (CHELE) - Final Weight used for dosin kg Estimated Creatinine Clearance: 29 Goal Trough: 15-20 mcg/mL Pharmacy Plan for Drug Dosing: Trough level of 11.8 was lower than target range of 15-20. Dose was increased to 1250mg q24h, and will redraw trough before 3rd administration at new dose. Pharmacy Service will continue to monitor and adjust dosing as required. Follow-Up Labs: Trough Vancomycin Labs to be done on [date and time ordered]: 06/08/18 @[id number]
[2018-06-05 04:18] LABS: Hematocrit 24.2 % (40-54); Hemoglobin 7.8 g/dl (13.0-16.5)
[2018-06-05 04:22] LABS: Partial Thromboplast Time 32.6 Seconds (24.1-36.2)
[2018-06-05] MEDS: CHLORHEXIDINE GLUC 2% CLOTH 1 EACH TOWELETTE TOPICAL (05:33)
[2018-06-05] MEDS: 0.9% NaCl Peripheral Flush Adult/Peds IV (05:33)
[2018-06-05] MEDS: Insulin Lispro 100 UNIT/ML INSULN.PEN SC ×4 (05:33→23:32)
[2018-06-05 05:50] LABS: Anion Gap 13 (5-15); BUN 116 mg/dL (7-18); BUN/Creat Ratio 60.4 RATIO (10-20); Calcium,Total 8.1 mg/dL (8.5-10.1); Chloride 116 mmol/L (98-107); Creatinine, Serum 1.92 mg/dL (0.70-1.30); EST Glomerular Filtration Rate 36 mL/min (>60); Est Glom Filt Rate - Afr Amer 44 mL/min (>60); Estimated Creatinine Clearance 28.61 ml/min; Glucose 316 mg/dL (74-106); Potassium 4.4 mmol/L (3.5-5.1); Sodium Level 148 mmol/L (136-145)
[2018-06-05 05:51] LABS: Bedside Glucose 266 mg/dL (70-110)
--- NOTE | 2018-06-05 06:44 | PCM.PN.INT ---
Subjective: The patient was seen and examined at the bedside this morning. Events from the last 24 hours have been reviewed. The patient continues to have a fever, but remains hemodynamically stable. His FiO2 requirement remains at 30%. Overnight, the patient was noted to have what was initially bright red blood from his OG tube, which as of this morning, appears to be more dark red in appearance. Orders to discontinue his heparin drip replaced last evening. His tube feeds are currently on hold. Surgery consultation has been placed for potential endoscopy. In addition to all of the aforementioned, the patient's CT abdomen/pelvis completed yesterday revealed evidence of bilateral hydronephrosis with bilateral hydroureter. A consultation was also placed to urology this morning. The patient's hemoglobin has dropped approximately 1 g overnight. While the patient's creatinine remained stable, his BUN continues to rise. Objective: The patient's most recent lab work, culture data and imaging studies have all been personally reviewed. Surface echocardiogram revealed normal LV size and function with an ejection fraction of 65% and stage I diastolic dysfunction. Pulmonary artery systolic pressure was estimated to be 40 mmHg. VQ scan completed on June 02 was noted to be a low quality VQ scan, but was reported to be most consistent with low probability for PE. CT chest dated June 02 revealed small bilateral pleural effusions without focal infiltrates. General: - - Currently intubated, sedated and mechanically ventilated. Chronically ill in appearance HEENT: Atraumatic, PERRLA, Normocephalic Oral: No Gingival or Mucosal Lesions/ Ulcerations, - - Endotracheal and OG tubes currently in place Neck: Supple, No Nodes, Trachea Midline Lungs: No rhonchi, No wheeze, No rales, Diminished Cardiovascular: Regular rate, Regular Rhythm, Normal S1, Normal S2, Murmur Abdomen: Bowel Sounds Present, Soft, Non Tender, Non-Distended Extremities: No clubbing, No cyanosis, No edema Skin: - - No significant change from previous Musculoskeletal: No Tenderness to Palpation of Joints or Extremities Lymphatic: No Cervical, Supraclavicular, or Inguinal Adenopathy Neurological: Neuro grossly intact Vital Signs Temp Pulse Resp BP Pulse Ox 38.3 C H 107 H 30 H 131/55 H 97 06/05/18 06:00 06/05/18 06:00 06/05/18 06:00 06/05/18 06:00 06/05/18 06:00 Oxygen Flow Rate (L/min) 2 Oxygen Delivery Method Mechanical Ventilator Weight: 173 lb 1.006 oz Body Mass Index (BMI) 27.1 Finger Stick Blood Glucose 95 Intake and Output for Last 24 Hours 06/03/18 06/04/18 06/05/18 23:59 23:59 23:59 Intake Total 2523 / 2523 4505 / 4505 421 / 421 Output Total 1125 / 1125 1550 / 1550 600 / 600 Balance 1398 / 1398 2955 / 2955 -179 / -179 Labs (Last 48 Hours) 06/02/18 06/03/18 06/03/18 11:10 06:15 06:15 WBC RBC Hgb Hct MCV MCH MCHC RDW RDW Differential Plt Count MPV Neut % (Auto) Absolute Neuts (auto) Absolute Lymphs (auto) Total Counted Not Reportable Neutrophils % (Manual) Band Neutrophils % Lymphocytes % (Manual) Monocytes % (Manual) Eosinophils % (Manual) Metamyelocytes % Myelocytes % Nucleated RBC % 2.9 Differential Comment Diff Path Review Reviewed Reviewed Platelet Estimate RBC Morphology Polychromasia Anisocytosis Spherocytes Ovalocytes Absolute Retic 0.22 APTT Sodium Potassium Chloride Carbon Dioxide Anion Gap BUN Creatinine Estim Creat Clear Calc Est GFR (MDRD) Af Amer Est GFR (MDRD) Non-Af BUN/Creatinine Ratio Glucose Hemoglobin A1c Calcium Total Bilirubin 0.30 Direct Bilirubin 0.10 AST 216 H ALT 44 Alkaline Phosphatase 130 H Total Creatine Kinase B-Natriuretic Peptide Total Protein 5.2 L Albumin 1.9 L Globulin 3.3 Vancomycin Trough MRSA (PCR) POC Glucose Blood Type Antibody Screen Crossmatch 06/03/18 06/03/18 06/03/18 06:15 06:15 06:39 WBC RBC Hgb Hct MCV MCH MCHC RDW RDW Differential Plt Count MPV Neut % (Auto) Absolute Neuts (auto) Absolute Lymphs (auto) Total Counted Neutrophils % (Manual) Band Neutrophils % Lymphocytes % (Manual) Monocytes % (Manual) Eosinophils % (Manual) Metamyelocytes % Myelocytes % Nucleated RBC % Differential Comment Diff Path Review Platelet Estimate RBC Morphology Polychromasia Anisocytosis Spherocytes Ovalocytes Absolute Retic APTT Sodium Potassium Chloride Carbon Dioxide Anion Gap BUN Creatinine Estim Creat Clear Calc Est GFR (MDRD) Af Amer Est GFR (MDRD) Non-Af BUN/Creatinine Ratio Glucose Hemoglobin A1c Calcium Total Bilirubin Direct Bilirubin AST ALT Alkaline Phosphatase Total Creatine Kinase 227 B-Natriuretic Peptide 121.7 H Total Protein Albumin Globulin Vancomycin Trough MRSA (PCR) POC Glucose 250 H Blood Type Antibody Screen Crossmatch 06/03/18 06/03/18 06/03/18 06:55 08:00 08:00 WBC RBC Hgb Hct MCV MCH MCHC RDW RDW Differential Plt Count MPV Neut % (Auto) Absolute Neuts (auto) Absolute Lymphs (auto) Total Counted Neutrophils % (Manual) Band Neutrophils % Lymphocytes % (Manual) Monocytes % (Manual) Eosinophils % (Manual) Metamyelocytes % Myelocytes % Nucleated RBC % Differential Comment Diff Path Review Platelet Estimate RBC Morphology Polychromasia Anisocytosis Spherocytes Ovalocytes Absolute Retic APTT 118.5 H* Sodium Potassium Chloride Carbon Dioxide Anion Gap BUN Creatinine Estim Creat Clear Calc Est GFR (MDRD) Af Amer Est GFR (MDRD) Non-Af BUN/Creatinine Ratio Glucose Hemoglobin A1c Calcium Total Bilirubin Direct Bilirubin AST ALT Alkaline Phosphatase Total Creatine Kinase B-Natriuretic Peptide Total Protein Albumin Globulin Vancomycin Trough MRSA (PCR) Negative POC Glucose Blood Type AB POSITIVE Antibody Screen NEGATIVE Crossmatch 06/03/18 06/03/18 06/03/18 08:00 11:15 11:17 WBC RBC Hgb 7.3 L Hct 23.6 L MCV MCH MCHC RDW RDW Differential Plt Count MPV Neut % (Auto) Absolute Neuts (auto) Absolute Lymphs (auto) Total Counted Neutrophils % (Manual) Band Neutrophils % Lymphocytes % (Manual) Monocytes % (Manual) Eosinophils % (Manual) Metamyelocytes % Myelocytes % Nucleated RBC % Differential Comment Diff Path Review Platelet Estimate RBC Morphology Polychromasia Anisocytosis Spherocytes Ovalocytes Absolute Retic APTT Sodium Potassium Chloride Carbon Dioxide Anion Gap BUN Creatinine Estim Creat Clear Calc Est GFR (MDRD) Af Amer Est GFR (MDRD) Non-Af BUN/Creatinine Ratio Glucose Hemoglobin A1c Calcium Total Bilirubin Direct Bilirubin AST ALT Alkaline Phosphatase Total Creatine Kinase B-Natriuretic Peptide Total Protein Albumin Globulin Vancomycin Trough MRSA (PCR) POC Glucose 273 H Blood Type Antibody Screen Crossmatch See Detail 06/03/18 06/03/18 06/03/18 14:05 15:45 16:30 WBC RBC Hgb 6.8 L Cancelled Hct 21.8 L Cancelled MCV MCH MCHC RDW RDW Differential Plt Count MPV Neut % (Auto) Absolute Neuts (auto) Absolute Lymphs (auto) Total Counted Neutrophils % (Manual) Band Neutrophils % Lymphocytes % (Manual) Monocytes % (Manual) Eosinophils % (Manual) Metamyelocytes % Myelocytes % Nucleated RBC % Differential Comment Diff Path Review Platelet Estimate RBC Morphology Polychromasia Anisocytosis Spherocytes Ovalocytes Absolute Retic APTT 67.9 H Sodium Potassium Chloride Carbon Dioxide Anion Gap BUN Creatinine Estim Creat Clear Calc Est GFR (MDRD) Af Amer Est GFR (MDRD) Non-Af BUN/Creatinine Ratio Glucose Hemoglobin A1c Calcium Total Bilirubin Direct Bilirubin AST ALT Alkaline Phosphatase Total Creatine Kinase B-Natriuretic Peptide Total Protein Albumin Globulin Vancomycin Trough MRSA (PCR) POC Glucose Blood Type Antibody Screen Crossmatch 06/03/18 06/03/18 06/04/18 17:23 19:40 00:38 WBC RBC Hgb Hct MCV MCH MCHC RDW RDW Differential Plt Count MPV Neut % (Auto) Absolute Neuts (auto) Absolute Lymphs (auto) Total Counted Neutrophils % (Manual) Band Neutrophils % Lymphocytes % (Manual) Monocytes % (Manual) Eosinophils % (Manual) Metamyelocytes % Myelocytes % Nucleated RBC % Differential Comment Diff Path Review Platelet Estimate RBC Morphology Polychromasia Anisocytosis Spherocytes Ovalocytes Absolute Retic APTT 83.5 H Sodium Potassium Chloride Carbon Dioxide Anion Gap BUN Creatinine Estim Creat Clear Calc Est GFR (MDRD) Af Amer Est GFR (MDRD) Non-Af BUN/Creatinine Ratio Glucose Hemoglobin A1c Calcium Total Bilirubin Direct Bilirubin AST ALT Alkaline Phosphatase Total Creatine Kinase B-Natriuretic Peptide Total Protein Albumin Globulin Vancomycin Trough MRSA (PCR) POC Glucose 286 H 360 H Blood Type Antibody Screen Crossmatch 06/04/18 06/04/18 06/04/18 00:40 03:30 03:30 WBC 10.2 RBC 3.02 L Hgb 9.2 L 8.8 L Hct 28.1 L 27.4 L MCV 90.7 MCH 29.1 MCHC 32.1 RDW 16.7 H RDW Differential 54.4 H Plt Count 74 L MPV 10.5 Neut % (Auto) Not Reportable Absolute Neuts (auto) 8.3 H Absolute Lymphs (auto) 1.63 Total Counted 100 Neutrophils % (Manual) 69 Band Neutrophils % 7 H Lymphocytes % (Manual) 16 L Monocytes % (Manual) 2 Eosinophils % (Manual) 1 Metamyelocytes % 4 H Myelocytes % 1 H Nucleated RBC % 4.4 Differential Comment Diff Path Review Reviewed Platelet Estimate MOD DEC RBC Morphology RARE Polychromasia 1+ Anisocytosis 1+ Spherocytes RARE H Ovalocytes RARE Absolute Retic 0.45 APTT Sodium 145 Potassium 4.2 Chloride 114 H Carbon Dioxide 17.0 L Anion Gap 14 BUN 102 H* Creatinine 1.92 H Estim Creat Clear Calc 28.61 Est GFR (MDRD) Af Amer 44 L Est GFR (MDRD) Non-Af 36 L BUN/Creatinine Ratio 53.1 H Glucose 496 H* Hemoglobin A1c Calcium 8.2 L Total Bilirubin Direct Bilirubin AST ALT Alkaline Phosphatase Total Creatine Kinase B-Natriuretic Peptide Total Protein Albumin Globulin Vancomycin Trough MRSA (PCR) POC Glucose Blood Type Antibody Screen Crossmatch 06/04/18 06/04/18 06/04/18 03:30 06:32 09:55 WBC RBC Hgb Hct MCV MCH MCHC RDW RDW Differential Plt Count MPV Neut % (Auto) Absolute Neuts (auto) Absolute Lymphs (auto) Total Counted Neutrophils % (Manual) Band Neutrophils % Lymphocytes % (Manual) Monocytes % (Manual) Eosinophils % (Manual) Metamyelocytes % Myelocytes % Nucleated RBC % Differential Comment Diff Path Review Platelet Estimate RBC Morphology Polychromasia Anisocytosis Spherocytes Ovalocytes Absolute Retic APTT 73.0 H 57.5 H Sodium Potassium Chloride Carbon Dioxide Anion Gap BUN Creatinine Estim Creat Clear Calc Est GFR (MDRD) Af Amer Est GFR (MDRD) Non-Af BUN/Creatinine Ratio Glucose Hemoglobin A1c Calcium Total Bilirubin Direct Bilirubin AST ALT Alkaline Phosphatase Total Creatine Kinase B-Natriuretic Peptide Total Protein Albumin Globulin Vancomycin Trough MRSA (PCR) POC Glucose 383 H Blood Type Antibody Screen Crossmatch 06/04/18 06/04/18 06/04/18 11:39 15:00 15:00 WBC RBC Hgb 8.6 L Hct 26.3 L MCV MCH MCHC RDW RDW Differential Plt Count MPV Neut % (Auto) Absolute Neuts (auto) Absolute Lymphs (auto) Total Counted Neutrophils % (Manual) Band Neutrophils % Lymphocytes % (Manual) Monocytes % (Manual) Eosinophils % (Manual) Metamyelocytes % Myelocytes % Nucleated RBC % Differential Comment Diff Path Review Platelet Estimate RBC Morphology Polychromasia Anisocytosis Spherocytes Ovalocytes Absolute Retic APTT Sodium Potassium Chloride Carbon Dioxide Anion Gap BUN Creatinine Estim Creat Clear Calc Est GFR (MDRD) Af Amer Est GFR (MDRD) Non-Af BUN/Creatinine Ratio Glucose Hemoglobin A1c 6.2 Calcium Total Bilirubin Direct Bilirubin AST ALT Alkaline Phosphatase Total Creatine Kinase B-Natriuretic Peptide Total Protein Albumin Globulin Vancomycin Trough MRSA (PCR) POC Glucose 394 H Blood Type Antibody Screen Crossmatch 06/04/18 06/04/18 06/05/18 17:10 23:21 02:00 WBC RBC Hgb Hct MCV MCH MCHC RDW RDW Differential Plt Count MPV Neut % (Auto) Absolute Neuts (auto) Absolute Lymphs (auto) Total Counted Neutrophils % (Manual) Band Neutrophils % Lymphocytes % (Manual) Monocytes % (Manual) Eosinophils % (Manual) Metamyelocytes % Myelocytes % Nucleated RBC % Differential Comment Diff Path Review Platelet Estimate RBC Morphology Polychromasia Anisocytosis Spherocytes Ovalocytes Absolute Retic APTT Sodium Potassium Chloride Carbon Dioxide Anion Gap BUN Creatinine Estim Creat Clear Calc Est GFR (MDRD) Af Amer Est GFR (MDRD) Non-Af BUN/Creatinine Ratio Glucose Hemoglobin A1c Calcium Total Bilirubin Direct Bilirubin AST ALT Alkaline Phosphatase Total Creatine Kinase B-Natriuretic Peptide Total Protein Albumin Globulin Vancomycin Trough 11.8 MRSA (PCR) POC Glucose 329 H 292 H Blood Type Antibody Screen Crossmatch 06/05/18 06/05/18 06/05/18 03:55 03:55 03:55 WBC RBC Hgb 7.8 L Hct 24.2 L MCV MCH MCHC RDW RDW Differential Plt Count MPV Neut % (Auto) Absolute Neuts (auto) Absolute Lymphs (auto) Total Counted Neutrophils % (Manual) Band Neutrophils % Lymphocytes % (Manual) Monocytes % (Manual) Eosinophils % (Manual) Metamyelocytes % Myelocytes % Nucleated RBC % Differential Comment Diff Path Review Platelet Estimate RBC Morphology Polychromasia Anisocytosis Spherocytes Ovalocytes Absolute Retic APTT 32.6 Sodium 148 H Potassium 4.4 Chloride 116 H Carbon Dioxide 19.0 L Anion Gap 13 BUN 116 H* Creatinine 1.92 H Estim Creat Clear Calc 28.61 Est GFR (MDRD) Af Amer 44 L Est GFR (MDRD) Non-Af 36 L BUN/Creatinine Ratio 60.4 H Glucose 316 H Hemoglobin A1c Calcium 8.1 L Total Bilirubin Direct Bilirubin AST ALT Alkaline Phosphatase Total Creatine Kinase B-Natriuretic Peptide Total Protein Albumin Globulin Vancomycin Trough MRSA (PCR) POC Glucose Blood Type Antibody Screen Crossmatch 06/05/18 05:30 WBC RBC Hgb Hct MCV MCH MCHC RDW RDW Differential Plt Count MPV Neut % (Auto) Absolute Neuts (auto) Absolute Lymphs (auto) Total Counted Neutrophils % (Manual) Band Neutrophils % Lymphocytes % (Manual) Monocytes % (Manual) Eosinophils % (Manual) Metamyelocytes % Myelocytes % Nucleated RBC % Differential Comment Diff Path Review Platelet Estimate RBC Morphology Polychromasia Anisocytosis Spherocytes Ovalocytes Absolute Retic APTT Sodium Potassium Chloride Carbon Dioxide Anion Gap BUN Creatinine Estim Creat Clear Calc Est GFR (MDRD) Af Amer Est GFR (MDRD) Non-Af BUN/Creatinine Ratio Glucose Hemoglobin A1c Calcium Total Bilirubin Direct Bilirubin AST ALT Alkaline Phosphatase Total Creatine Kinase B-Natriuretic Peptide Total Protein Albumin Globulin Vancomycin Trough MRSA (PCR) POC Glucose 266 H Blood Type Antibody Screen Crossmatch Microbiology 06/03/18 15:20 Urine Catheter - [place] Urine Culture - Preliminary Gram positive organism 06/02/18 22:30 Sputum, Expectorated/Coughed Gram Stain - Final 06/02/18 22:30 Sputum, Expectorated/Coughed Respiratory Culture - Preliminary Appears to be normal respiratory betty. Further studies to follow. 06/02/18 01:55 Urine, Clean Catch Urine Culture - Final GPC Poss Enterococcus sp 06/02/18 01:10 Blood Culture (Wb) - Right Forearm Blood Culture - Preliminary No growth in 48 hours. 06/02/18 01:24 Blood Culture (Wb) - Anticubital Left Blood Culture - Preliminary No growth in 48 hours. 06/02/18 22:30 Mucosa - Nose Respiratory Panel (PCR) - Final Clinical Impression(s) from Imaging Studies Brain CT 06/02/18 01:25 IMPRESSION: No acute findings. Individualized dose optimization techniques were used for this CT. at 0159 Reported and signed by: Geoff Joaquin MD Electronically Signed: Geoff Joaquin, at 1:58 EST Tel , Service support , Cervical Spine CT 06/02/18 01:25 IMPRESSION: No fracture or dislocation of the cervical spine. Individualized dose optimization techniques were used for this CT. at 0206 Reported and signed by: Geoff Joaquin MD Electronically Signed: Geoff Joaquin, at 2:05 EST Tel , Service support , Chest X-Ray 06/02/18 01:35 IMPRESSION: Low lung volumes with resultant hypoventilatory changes. No definite pneumonia or edema. Interval sternotomy probably for heart valve replacement. at 0154 Reported and signed by: Geoff Joaquin MD Electronically Signed: Geoff Joaquin, at 1:53 EST Tel , Service support , Lung Scan-VQ NM 06/02/18 13:55 IMPRESSION: Low quality VQ scan, most consistent with low probability of pulmonary embolism. Electronically Signed: Kenny Greene MD at 16:31 EST , Service support , Chest X-Ray 06/02/18 14:28 IMPRESSION: Moderate right pleural effusion with overlying atelectasis. Electronically Signed: Juan Ruiz, at 15:40 EST Tel , Service support , Chest CT 06/02/18 21:14 IMPRESSION: Small bilateral pleural effusions with overlying atelectasis. Sclerotic osseous lesions which are suspicious for metastasis. Electronically Signed: Juan Ruiz, at 22:14 EST Tel , Service support , Chest X-Ray 06/02/18 22:26 IMPRESSION: Mild left basilar atelectasis status post endotracheal tube placement Electronically Signed: Norbert Snyder MD at 23:18 EST , Service support , Abdomen CT 06/04/18 12:33 IMPRESSION: Bilateral hydronephrosis right greater than left with bilateral hydroureter. Diffusely thickened bladder wall. Electronically Signed: Javier Unger, at 15:28 EST , Service support , Medical Necessity - Tobacco Use Smoking Status: Former smoker Assessment/Plan All Active Problems (Last Reviewed 06/05/18 @ 07:40 by Dangelo Alvarado MD) Atrial fibrillation and flutter (Acute) Fever (Acute) Anemia (Acute) Thrombocytopenia (Acute) Bilateral hydronephrosis (Acute) RECOMMENDATIONS: 1. Plan for bedside upper endoscopy this morning. 2. Heparin to be discontinued. 3. Continue twice daily PPI therapy 4. Plan for percutaneous nephrostomy tube placement today 5. Continue antibiotics per ID recommendations 6. Continue amiodarone per cardiology recommendations IMPRESSIONS: 1. Acute hypoxemic respiratory failure The exact etiology for the patient's clinical decompensation is unclear. However, the patient was noted to be tachycardic at the time when he was initially beginning to decompensate. It is unclear whether this was atrial fibrillation or a sinus tachycardia. Given that the patient has paroxysmal atrial fibrillation and underlying valvular heart disease, it is possible that his decompensation may have been heart rate related. In addition, increased metabolic demands from the patient's sepsis and fevers also likely contributed. He is chronically anticoagulated with Eliquis on an outpatient basis. The patient's CT chest obtained overnight only revealed evidence of small bilateral pleural effusions without focal infiltrates. His FiO2 was able to be quickly weaned. 2. Severe sepsis with evidence of bilateral hydronephrosis/hydroureter The patient appears to be septic from a urinary source of infection. CT abdomen did reveal evidence of bilateral hydronephrosis, for which there are plans for the patient to undergo percutaneous nephrostomy tube placement today. Continue antibiotics per infectious diseases recommendations. 3. Paroxysmal atrial fibrillation with RVR/history of aortic valve replacement Cardiology following to assist with management. The patient is currently on an amiodarone infusion. 4. Anemia secondary to upper GI bleed The patient does have known normocytic anemia, which appears to have worsened over the course of this hospital stay. The patient did require eventual transfusion of packed red blood cells. Upper endoscopy performed at the bedside did reveal evidence of GI ulcers. However, there was no active bleeding. This will require the permanent discontinuation of the patient's systemic anticoagulation. He will be continued on twice daily PPI therapy and monitored for any ongoing blood loss. 5. Metastatic prostate cancer/anemia/chronic kidney disease/hypertension/hyperlipidemia/depression/generalized deconditioning and debility Complicates care, management, recovery and prognosis. Likely okay to continue home medications. Physical therapy to once again work with patient once medically stabilized. Recommend formal goals of care discussion with the patient and his family. TIME: 45 minutes of critical care time, independent of procedures, was spent addressing the patient's acute hypoxemic respiratory failure, severe sepsis, paroxysmal atrial fibrillation with a rapid ventricular rate, metastatic prostate cancer, anemia, upper gastrointestinal bleed, review of all data and collaboration with the care team. ([id number], [id number]) Code Visit [id number]: [id number] Critical care first hour
--- NOTE | 2018-06-05 06:48 | PN_ITS ---
Subjective: The patient was seen and examined at the bedside this morning. Events from the last 24 hours have been reviewed. The patient continues to have a fever, but remains hemodynamically stable. His FiO2 requirement remains at 30%. Overnight, the patient was noted to have what was initially bright red blood from his OG tube, which as of this morning, appears to be more dark red in appearance. Orders to discontinue his heparin drip replaced last evening. His tube feeds are currently on hold. Surgery consultation has been placed for potential endoscopy. In addition to all of the aforementioned, the patient's CT abdomen/pelvis completed yesterday revealed evidence of bilateral hydronephrosis with bilateral hydroureter. A consultation was also placed to urology this morning. The patient's hemoglobin has dropped approximately 1 g overnight. While the patient's creatinine remained stable, his BUN continues to rise. Objective: The patient's most recent lab work, culture data and imaging studies have all been personally reviewed. Surface echocardiogram revealed normal LV size and function with an ejection fraction of 65% and stage I diastolic dysfunction. Pulmonary artery systolic pressure was estimated to be 40 mmHg. VQ scan completed on June 02 was noted to be a low quality VQ scan, but was reported to be most consistent with low probability for PE. CT chest dated June 02 revealed small bilateral pleural effusions without focal infiltrates. General: - - Currently intubated, sedated and mechanically ventilated. Chronically ill in appearance HEENT: Atraumatic, PERRLA, Normocephalic Oral: No Gingival or Mucosal Lesions/ Ulcerations, - - Endotracheal and OG tubes currently in place Neck: Supple, No Nodes, Trachea Midline Lungs: No rhonchi, No wheeze, No rales, Diminished Cardiovascular: Regular rate, Regular Rhythm, Normal S1, Normal S2, Murmur Abdomen: Bowel Sounds Present, Soft, Non Tender, Non-Distended Extremities: No clubbing, No cyanosis, No edema Skin: - - No significant change from previous Musculoskeletal: No Tenderness to Palpation of Joints or Extremities Lymphatic: No Cervical, Supraclavicular, or Inguinal Adenopathy Neurological: Neuro grossly intact Vital Signs Temp Pulse Resp BP Pulse Ox 38.3 C H 107 H 30 H 131/55 H 97 06/05/18 06:00 06/05/18 06:00 06/05/18 06:00 06/05/18 06:00 06/05/18 06:00 Oxygen Flow Rate (L/min) 2 Oxygen Delivery Method Mechanical Ventilator Weight: 173 lb 1.006 oz Body Mass Index (BMI) 27.1 Finger Stick Blood Glucose 95 Intake and Output for Last 24 Hours 06/03/18 06/04/18 06/05/18 23:59 23:59 23:59 Intake Total 2523 / 2523 4505 / 4505 421 / 421 Output Total 1125 / 1125 1550 / 1550 600 / 600 Balance 1398 / 1398 2955 / 2955 -179 / -179 Labs (Last 48 Hours) 06/02/18 06/03/18 06/03/18 11:10 06:15 06:15 WBC RBC Hgb Hct MCV MCH MCHC RDW RDW Differential Plt Count MPV Neut % (Auto) Absolute Neuts (auto) Absolute Lymphs (auto) Total Counted Not Reportable Neutrophils % (Manual) Band Neutrophils % Lymphocytes % (Manual) Monocytes % (Manual) Eosinophils % (Manual) Metamyelocytes % Myelocytes % Nucleated RBC % 2.9 Differential Comment Diff Path Review Reviewed Reviewed Platelet Estimate RBC Morphology Polychromasia Anisocytosis Spherocytes Ovalocytes Absolute Retic 0.22 APTT Sodium Potassium Chloride Carbon Dioxide Anion Gap BUN Creatinine Estim Creat Clear Calc Est GFR (MDRD) Af Amer Est GFR (MDRD) Non-Af BUN/Creatinine Ratio Glucose Hemoglobin A1c Calcium Total Bilirubin 0.30 Direct Bilirubin 0.10 AST 216 H ALT 44 Alkaline Phosphatase 130 H Total Creatine Kinase B-Natriuretic Peptide Total Protein 5.2 L Albumin 1.9 L Globulin 3.3 Vancomycin Trough MRSA (PCR) POC Glucose Blood Type Antibody Screen Crossmatch 06/03/18 06/03/18 06/03/18 06:15 06:15 06:39 WBC RBC Hgb Hct MCV MCH MCHC RDW RDW Differential Plt Count MPV Neut % (Auto) Absolute Neuts (auto) Absolute Lymphs (auto) Total Counted Neutrophils % (Manual) Band Neutrophils % Lymphocytes % (Manual) Monocytes % (Manual) Eosinophils % (Manual) Metamyelocytes % Myelocytes % Nucleated RBC % Differential Comment Diff Path Review Platelet Estimate RBC Morphology Polychromasia Anisocytosis Spherocytes Ovalocytes Absolute Retic APTT Sodium Potassium Chloride Carbon Dioxide Anion Gap BUN Creatinine Estim Creat Clear Calc Est GFR (MDRD) Af Amer Est GFR (MDRD) Non-Af BUN/Creatinine Ratio Glucose Hemoglobin A1c Calcium Total Bilirubin Direct Bilirubin AST ALT Alkaline Phosphatase Total Creatine Kinase 227 B-Natriuretic Peptide 121.7 H Total Protein Albumin Globulin Vancomycin Trough MRSA (PCR) POC Glucose 250 H Blood Type Antibody Screen Crossmatch 06/03/18 06/03/18 06/03/18 06:55 08:00 08:00 WBC RBC Hgb Hct MCV MCH MCHC RDW RDW Differential Plt Count MPV Neut % (Auto) Absolute Neuts (auto) Absolute Lymphs (auto) Total Counted Neutrophils % (Manual) Band Neutrophils % Lymphocytes % (Manual) Monocytes % (Manual) Eosinophils % (Manual) Metamyelocytes % Myelocytes % Nucleated RBC % Differential Comment Diff Path Review Platelet Estimate RBC Morphology Polychromasia Anisocytosis Spherocytes Ovalocytes Absolute Retic APTT 118.5 H* Sodium Potassium Chloride Carbon Dioxide Anion Gap BUN Creatinine Estim Creat Clear Calc Est GFR (MDRD) Af Amer Est GFR (MDRD) Non-Af BUN/Creatinine Ratio Glucose Hemoglobin A1c Calcium Total Bilirubin Direct Bilirubin AST ALT Alkaline Phosphatase Total Creatine Kinase B-Natriuretic Peptide Total Protein Albumin Globulin Vancomycin Trough MRSA (PCR) Negative POC Glucose Blood Type AB POSITIVE Antibody Screen NEGATIVE Crossmatch 06/03/18 06/03/18 06/03/18 08:00 11:15 11:17 WBC RBC Hgb 7.3 L Hct 23.6 L MCV MCH MCHC RDW RDW Differential Plt Count MPV Neut % (Auto) Absolute Neuts (auto) Absolute Lymphs (auto) Total Counted Neutrophils % (Manual) Band Neutrophils % Lymphocytes % (Manual) Monocytes % (Manual) Eosinophils % (Manual) Metamyelocytes % Myelocytes % Nucleated RBC % Differential Comment Diff Path Review Platelet Estimate RBC Morphology Polychromasia Anisocytosis Spherocytes Ovalocytes Absolute Retic APTT Sodium Potassium Chloride Carbon Dioxide Anion Gap BUN Creatinine Estim Creat Clear Calc Est GFR (MDRD) Af Amer Est GFR (MDRD) Non-Af BUN/Creatinine Ratio Glucose Hemoglobin A1c Calcium Total Bilirubin Direct Bilirubin AST ALT Alkaline Phosphatase Total Creatine Kinase B-Natriuretic Peptide Total Protein Albumin Globulin Vancomycin Trough MRSA (PCR) POC Glucose 273 H Blood Type Antibody Screen Crossmatch See Detail 06/03/18 06/03/18 06/03/18 14:05 15:45 16:30 WBC RBC Hgb 6.8 L Cancelled Hct 21.8 L Cancelled MCV MCH MCHC RDW RDW Differential Plt Count MPV Neut % (Auto) Absolute Neuts (auto) Absolute Lymphs (auto) Total Counted Neutrophils % (Manual) Band Neutrophils % Lymphocytes % (Manual) Monocytes % (Manual) Eosinophils % (Manual) Metamyelocytes % Myelocytes % Nucleated RBC % Differential Comment Diff Path Review Platelet Estimate RBC Morphology Polychromasia Anisocytosis Spherocytes Ovalocytes Absolute Retic APTT 67.9 H Sodium Potassium Chloride Carbon Dioxide Anion Gap BUN Creatinine Estim Creat Clear Calc Est GFR (MDRD) Af Amer Est GFR (MDRD) Non-Af BUN/Creatinine Ratio Glucose Hemoglobin A1c Calcium Total Bilirubin Direct Bilirubin AST ALT Alkaline Phosphatase Total Creatine Kinase B-Natriuretic Peptide Total Protein Albumin Globulin Vancomycin Trough MRSA (PCR) POC Glucose Blood Type Antibody Screen Crossmatch 06/03/18 06/03/18 06/04/18 17:23 19:40 00:38 WBC RBC Hgb Hct MCV MCH MCHC RDW RDW Differential Plt Count MPV Neut % (Auto) Absolute Neuts (auto) Absolute Lymphs (auto) Total Counted Neutrophils % (Manual) Band Neutrophils % Lymphocytes % (Manual) Monocytes % (Manual) Eosinophils % (Manual) Metamyelocytes % Myelocytes % Nucleated RBC % Differential Comment Diff Path Review Platelet Estimate RBC Morphology Polychromasia Anisocytosis Spherocytes Ovalocytes Absolute Retic APTT 83.5 H Sodium Potassium Chloride Carbon Dioxide Anion Gap BUN Creatinine Estim Creat Clear Calc Est GFR (MDRD) Af Amer Est GFR (MDRD) Non-Af BUN/Creatinine Ratio Glucose Hemoglobin A1c Calcium Total Bilirubin Direct Bilirubin AST ALT Alkaline Phosphatase Total Creatine Kinase B-Natriuretic Peptide Total Protein Albumin Globulin Vancomycin Trough MRSA (PCR) POC Glucose 286 H 360 H Blood Type Antibody Screen Crossmatch 06/04/18 06/04/18 06/04/18 00:40 03:30 03:30 WBC 10.2 RBC 3.02 L Hgb 9.2 L 8.8 L Hct 28.1 L 27.4 L MCV 90.7 MCH 29.1 MCHC 32.1 RDW 16.7 H RDW Differential 54.4 H Plt Count 74 L MPV 10.5 Neut % (Auto) Not Reportable Absolute Neuts (auto) 8.3 H Absolute Lymphs (auto) 1.63 Total Counted 100 Neutrophils % (Manual) 69 Band Neutrophils % 7 H Lymphocytes % (Manual) 16 L Monocytes % (Manual) 2 Eosinophils % (Manual) 1 Metamyelocytes % 4 H Myelocytes % 1 H Nucleated RBC % 4.4 Differential Comment Diff Path Review Reviewed Platelet Estimate MOD DEC RBC Morphology RARE Polychromasia 1+ Anisocytosis 1+ Spherocytes RARE H Ovalocytes RARE Absolute Retic 0.45 APTT Sodium 145 Potassium 4.2 Chloride 114 H Carbon Dioxide 17.0 L Anion Gap 14 BUN 102 H* Creatinine 1.92 H Estim Creat Clear Calc 28.61 Est GFR (MDRD) Af Amer 44 L Est GFR (MDRD) Non-Af 36 L BUN/Creatinine Ratio 53.1 H Glucose 496 H* Hemoglobin A1c Calcium 8.2 L Total Bilirubin Direct Bilirubin AST ALT Alkaline Phosphatase Total Creatine Kinase B-Natriuretic Peptide Total Protein Albumin Globulin Vancomycin Trough MRSA (PCR) POC Glucose Blood Type Antibody Screen Crossmatch 06/04/18 06/04/18 06/04/18 03:30 06:32 09:55 WBC RBC Hgb Hct MCV MCH MCHC RDW RDW Differential Plt Count MPV Neut % (Auto) Absolute Neuts (auto) Absolute Lymphs (auto) Total Counted Neutrophils % (Manual) Band Neutrophils % Lymphocytes % (Manual) Monocytes % (Manual) Eosinophils % (Manual) Metamyelocytes % Myelocytes % Nucleated RBC % Differential Comment Diff Path Review Platelet Estimate RBC Morphology Polychromasia Anisocytosis Spherocytes Ovalocytes Absolute Retic APTT 73.0 H 57.5 H Sodium Potassium Chloride Carbon Dioxide Anion Gap BUN Creatinine Estim Creat Clear Calc Est GFR (MDRD) Af Amer Est GFR (MDRD) Non-Af BUN/Creatinine Ratio Glucose Hemoglobin A1c Calcium Total Bilirubin Direct Bilirubin AST ALT Alkaline Phosphatase Total Creatine Kinase B-Natriuretic Peptide Total Protein Albumin Globulin Vancomycin Trough MRSA (PCR) POC Glucose 383 H Blood Type Antibody Screen Crossmatch 06/04/18 06/04/18 06/04/18 11:39 15:00 15:00 WBC RBC Hgb 8.6 L Hct 26.3 L MCV MCH MCHC RDW RDW Differential Plt Count MPV Neut % (Auto) Absolute Neuts (auto) Absolute Lymphs (auto) Total Counted Neutrophils % (Manual) Band Neutrophils % Lymphocytes % (Manual) Monocytes % (Manual) Eosinophils % (Manual) Metamyelocytes % Myelocytes % Nucleated RBC % Differential Comment Diff Path Review Platelet Estimate RBC Morphology Polychromasia Anisocytosis Spherocytes Ovalocytes Absolute Retic APTT Sodium Potassium Chloride Carbon Dioxide Anion Gap BUN Creatinine Estim Creat Clear Calc Est GFR (MDRD) Af Amer Est GFR (MDRD) Non-Af BUN/Creatinine Ratio Glucose Hemoglobin A1c 6.2 Calcium Total Bilirubin Direct Bilirubin AST ALT Alkaline Phosphatase Total Creatine Kinase B-Natriuretic Peptide Total Protein Albumin Globulin Vancomycin Trough MRSA (PCR) POC Glucose 394 H Blood Type Antibody Screen Crossmatch 06/04/18 06/04/18 06/05/18 17:10 23:21 02:00 WBC RBC Hgb Hct MCV MCH MCHC RDW RDW Differential Plt Count MPV Neut % (Auto) Absolute Neuts (auto) Absolute Lymphs (auto) Total Counted Neutrophils % (Manual) Band Neutrophils % Lymphocytes % (Manual) Monocytes % (Manual) Eosinophils % (Manual) Metamyelocytes % Myelocytes % Nucleated RBC % Differential Comment Diff Path Review Platelet Estimate RBC Morphology Polychromasia Anisocytosis Spherocytes Ovalocytes Absolute Retic APTT Sodium Potassium Chloride Carbon Dioxide Anion Gap BUN Creatinine Estim Creat Clear Calc Est GFR (MDRD) Af Amer Est GFR (MDRD) Non-Af BUN/Creatinine Ratio Glucose Hemoglobin A1c Calcium Total Bilirubin Direct Bilirubin AST ALT Alkaline Phosphatase Total Creatine Kinase B-Natriuretic Peptide Total Protein Albumin Globulin Vancomycin Trough 11.8 MRSA (PCR) POC Glucose 329 H 292 H Blood Type Antibody Screen Crossmatch 06/05/18 06/05/18 06/05/18 03:55 03:55 03:55 WBC RBC Hgb 7.8 L Hct 24.2 L MCV MCH MCHC RDW RDW Differential Plt Count MPV Neut % (Auto) Absolute Neuts (auto) Absolute Lymphs (auto) Total Counted Neutrophils % (Manual) Band Neutrophils % Lymphocytes % (Manual) Monocytes % (Manual) Eosinophils % (Manual) Metamyelocytes % Myelocytes % Nucleated RBC % Differential Comment Diff Path Review Platelet Estimate RBC Morphology Polychromasia Anisocytosis Spherocytes Ovalocytes Absolute Retic APTT 32.6 Sodium 148 H Potassium 4.4 Chloride 116 H Carbon Dioxide 19.0 L Anion Gap 13 BUN 116 H* Creatinine 1.92 H Estim Creat Clear Calc 28.61 Est GFR (MDRD) Af Amer 44 L Est GFR (MDRD) Non-Af 36 L BUN/Creatinine Ratio 60.4 H Glucose 316 H Hemoglobin A1c Calcium 8.1 L Total Bilirubin Direct Bilirubin AST ALT Alkaline Phosphatase Total Creatine Kinase B-Natriuretic Peptide Total Protein Albumin Globulin Vancomycin Trough MRSA (PCR) POC Glucose Blood Type Antibody Screen Crossmatch 06/05/18 05:30 WBC RBC Hgb Hct MCV MCH MCHC RDW RDW Differential Plt Count MPV Neut % (Auto) Absolute Neuts (auto) Absolute Lymphs (auto) Total Counted Neutrophils % (Manual) Band Neutrophils % Lymphocytes % (Manual) Monocytes % (Manual) Eosinophils % (Manual) Metamyelocytes % Myelocytes % Nucleated RBC % Differential Comment Diff Path Review Platelet Estimate RBC Morphology Polychromasia Anisocytosis Spherocytes Ovalocytes Absolute Retic APTT Sodium Potassium Chloride Carbon Dioxide Anion Gap BUN Creatinine Estim Creat Clear Calc Est GFR (MDRD) Af Amer Est GFR (MDRD) Non-Af BUN/Creatinine Ratio Glucose Hemoglobin A1c Calcium Total Bilirubin Direct Bilirubin AST ALT Alkaline Phosphatase Total Creatine Kinase B-Natriuretic Peptide Total Protein Albumin Globulin Vancomycin Trough MRSA (PCR) POC Glucose 266 H Blood Type Antibody Screen Crossmatch Microbiology 06/03/18 15:20 Urine Catheter - [place] Urine Culture - Preliminary Gram positive organism 06/02/18 22:30 Sputum, Expectorated/Coughed Gram Stain - Final 06/02/18 22:30 Sputum, Expectorated/Coughed Respiratory Culture - Preliminary Appears to be normal respiratory betty. Further studies to follow. 06/02/18 01:55 Urine, Clean Catch Urine Culture - Final GPC Poss Enterococcus sp 06/02/18 01:10 Blood Culture (Wb) - Right Forearm Blood Culture - Preliminary No growth in 48 hours. 06/02/18 01:24 Blood Culture (Wb) - Anticubital Left Blood Culture - Preliminary No growth in 48 hours. 06/02/18 22:30 Mucosa - Nose Respiratory Panel (PCR) - Final Clinical Impression(s) from Imaging Studies Brain CT 06/02/18 01:25 IMPRESSION: No acute findings. Individualized dose optimization techniques were used for this CT. at 0159 Reported and signed by: Geoff Joaquin MD Electronically Signed: Geoff Joaquin, at 1:58 EST Tel , Service support , Cervical Spine CT 06/02/18 01:25 IMPRESSION: No fracture or dislocation of the cervical spine. Individualized dose optimization techniques were used for this CT. at 0206 Reported and signed by: Geoff Joaquin MD Electronically Signed: Geoff Joaquin, at 2:05 EST Tel , Service support , Chest X-Ray 06/02/18 01:35 IMPRESSION: Low lung volumes with resultant hypoventilatory changes. No definite pneumonia or edema. Interval sternotomy probably for heart valve replacement. at 0154 Reported and signed by: Geoff Joaquin MD Electronically Signed: Geoff Joaquin, at 1:53 EST Tel , Service support , Lung Scan-VQ NM 06/02/18 13:55 IMPRESSION: Low quality VQ scan, most consistent with low probability of pulmonary embolism. Electronically Signed: Kenny Greene MD at 16:31 EST , Service support , Chest X-Ray 06/02/18 14:28 IMPRESSION: Moderate right pleural effusion with overlying atelectasis. Electronically Signed: Juan Ruiz, at 15:40 EST Tel , Service support , Chest CT 06/02/18 21:14 IMPRESSION: Small bilateral pleural effusions with overlying atelectasis. Sclerotic osseous lesions which are suspicious for metastasis. Electronically Signed: Juan Ruiz, at 22:14 EST Tel , Service support , Chest X-Ray 06/02/18 22:26 IMPRESSION: Mild left basilar atelectasis status post endotracheal tube placement Electronically Signed: Norbert Snyder MD at 23:18 EST , Service support , Abdomen CT 06/04/18 12:33 IMPRESSION: Bilateral hydronephrosis right greater than left with bilateral hydroureter. Diffusely thickened bladder wall. Electronically Signed: Javier Unger, at 15:28 EST , Service support , Medical Necessity - Tobacco Use Smoking Status: Former smoker Assessment/Plan All Active Problems (Last Reviewed 06/05/18 @ 07:40 by Dangelo Alvarado MD) Atrial fibrillation and flutter (Acute) Fever (Acute) Anemia (Acute) Thrombocytopenia (Acute) Bilateral hydronephrosis (Acute) RECOMMENDATIONS: 1. Plan for bedside upper endoscopy this morning. 2. Heparin to be discontinued. 3. Continue twice daily PPI therapy 4. Plan for percutaneous nephrostomy tube placement today 5. Continue antibiotics per ID recommendations 6. Continue amiodarone per cardiology recommendations IMPRESSIONS: 1. Acute hypoxemic respiratory failure The exact etiology for the patient's clinical decompensation is unclear. However, the patient was noted to be tachycardic at the time when he was initially beginning to decompensate. It is unclear whether this was atrial fibrillation or a sinus tachycardia. Given that the patient has paroxysmal atrial fibrillation and underlying valvular heart disease, it is possible that his decompensation may have been heart rate related. In addition, increased metabolic demands from the patient's sepsis and fevers also likely contributed. He is chronically anticoagulated with Eliquis on an outpatient basis. The patient's CT chest obtained overnight only revealed evidence of small bilateral pleural effusions without focal infiltrates. His FiO2 was able to be quickly weaned. 2. Severe sepsis with evidence of bilateral hydronephrosis/hydroureter The patient appears to be septic from a urinary source of infection. CT abdomen did reveal evidence of bilateral hydronephrosis, for which there are plans for the patient to undergo percutaneous nephrostomy tube placement today. Continue antibiotics per infectious diseases recommendations. 3. Paroxysmal atrial fibrillation with RVR/history of aortic valve replacement Cardiology following to assist with management. The patient is currently on an amiodarone infusion. 4. Anemia secondary to upper GI bleed The patient does have known normocytic anemia, which appears to have worsened over the course of this hospital stay. The patient did require eventual transfusion of packed red blood cells. Upper endoscopy performed at the bedside did reveal evidence of GI ulcers. However, there was no active bleeding. This will require the permanent discontinuation of the patient's systemic antic oagulation. He will be continued on twice daily PPI therapy and monitored for any ongoing blood loss. 5. Metastatic prostate cancer/anemia/chronic kidney disease/hypertension/hyperlipidemia/depression/generalized deconditioning and debility Complicates care, management, recovery and prognosis. Likely okay to continue home medications. Physical therapy to once again work with patient once medically stabilized. Recommend formal goals of care discussion with the patient and his family. TIME: 45 minutes of critical care time, independent of procedures, was spent addressing the patient's acute hypoxemic respiratory failure, severe sepsis, paroxysmal atrial fibrillation with a rapid ventricular rate, metastatic prostate cancer, anemia, upper gastrointestinal bleed, review of all data and collaboration with the care team. ([id number], [id number]) Code Visit [id number]: [id number] Critical care first hour
--- NOTE | 2018-06-05 06:51 | PCM.PN.CARD ---
Subjectve: Patient seen and evaluated. Appears to be stable still intubated unfortunately has developed a GI bleed Objective: Vital Signs Temp Pulse Resp BP Pulse Ox 100.9 F H 107 H 30 H 131/55 H 97 06/05/18 06:00 06/05/18 06:00 06/05/18 06:00 06/05/18 06:00 06/05/18 06:00 Oxygen Flow Rate (L/min) 2 Oxygen Delivery Method Mechanical Ventilator Weight: 173 lb 1.006 oz Body Mass Index (BMI) 27.1 Finger Stick Blood Glucose 95 Intake and Output for Last 24 Hours 06/03/18 06/04/18 06/05/18 23:59 23:59 23:59 Intake Total 2523 / 2523 4505 / 4505 421 / 421 Output Total 1125 / 1125 1550 / 1550 600 / 600 Balance 1398 / 1398 2955 / 2955 -179 / -179 General: Awake, Alert, Oriented x 3 HEENT: PERRL, EOMI, Sclera Non Icteric Neck: Supple, Good ROM, No Lymph Node Enlargement Lungs: Clear to auscultation Cardiovascular: Regular Rhythm, Normal S1, Normal S2, No Murmurs, No Rubs, No Gallops Vascular: No Carotid Bruits, Normal Femoral Pulses, Normal Radial Pulses, Normal Dorsalis Pedal Pulse, Normal Posterior Tibial Pulses Abdomen: Bowel Sounds Present, Soft, Non Tender, No HSM, No Organomegaly Extremities: No Cyanosis, No Clubbing, No edema Neurological: No Focal Motor or Sensory Deficit 06/04/18 09:55: APTT 57.5 H 06/04/18 15:00: Hgb 8.6 L, Hct 26.3 L 06/04/18 15:00: Hemoglobin A1c 6.2 06/05/18 03:55: APTT 32.6 06/05/18 03:55: Hgb 7.8 L, Hct 24.2 L 06/05/18 03:55: Sodium 148 H, Potassium 4.4, Chloride 116 H, Carbon Dioxide 19.0 L, Anion Gap 13, BUN 116 H*, Creatinine 1.92 H, Est GFR (MDRD) Af Amer 44 L, Est GFR (MDRD) Non-Af 36 L, BUN/Creatinine Ratio 60.4 H, Glucose 316 H, Calcium 8.1 L Rhythm: EKG: ECHO: Stress Test: Cardiac Cath: PCI: CT Surgery: Holter monitor: EPS: PPM: CXR: Chest CT Scan: Medical Necessity - Tobacco Use Smoking Status: Former smoker Assessment/Plan 1. Atrial fibrillation/flutter The patient has demonstrated evidence of atrial fibrillation/flutter. He is currently in sinus rhythm. Continue to follow him in the ICU. He will continue on the intravenous amiodarone at this time 2. Status post aortic valve replacement: Bioprosthetic He does have an underlying bioprosthetic aortic valve. There was no comment on any concerns with respect to his transthoracic echocardiogram. However, based upon his underlying clinical scenario with his fevers, concerns of a possible sepsis type syndrome, and if no definitive etiology for his infectious related events, he may need to be considered for further evaluation of his aortic valve for the possibility of infectious endocarditis with a transthoracic echocardiogram. Transthoracic echocardiogram did not necessarily demonstrate any evidence of endocarditis however. 3. Hyperlipidemia He can continue medical management as deemed appropriate and tolerated. 4. Hypertension At the present time his blood pressure is good. He has rate limiting medications that may affect blood pressure adversely are on hold. Any other antihypertensive type agents are on hold. Depending upon his course he may need vasopressor agents to support his blood pressure. 5. Renal insufficiency He does have a history of renal insufficiency. It may be exacerbated if he is truly intravascularly depleted based upon his situation at home being found down, lethargic, and with altered mental status. He will continue to receive IV fluids as deemed appropriate by the ICU staff. His renal function will be followed. 6. Anemia He is anemic. The etiology is unclear at this time. He is being evaluated by the surgical service. With his elevated BUN I suspect he has some slow GI process. Thank you for allowing me to participate in the care of your patient. Please don't hesitate to call if any issues arise
--- NOTE | 2018-06-05 07:38 | PCM.CONS.U ---
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 He is now been admitted to the hospital in respiratory failure he is in the ICU. CAT scan was done and he has bilateral hydronephrosis. His anatomy with the prostate and bladder was quite difficult because of the prostate cancer I do not think stent placement from below is going to be possible we will recommend that we proceed with nephrostomy tubes bilaterally this can be placed by interventional radiologist. I spoke to the son today and the son was willing to do anything as necessary to improve his father's care. 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) Dyslipidemia (Chronic) Paroxysmal atrial fibrillation (Chronic) History of aortic valve replacement with bioprosthetic valve (Chronic ~11/12/16) Trifecta GT Tissue Heart Valve Serial # [id number] Model TFGT- 25A @ [facility] BPH with urinary obstruction (Chronic) Hypertension (Chronic) Medical History: Medical History (Last Reviewed 06/05/18 @ 07:40 by Dangelo Alvarado MD) Dyslipidemia (Chronic) E78.5 Paroxysmal atrial fibrillation (Chronic) I48.0 BPH with urinary obstruction (Chronic) N40.1, N13.8 Hypertension (Chronic) I10 Arthritis M19.90 GERD (gastroesophageal reflux disease) K21.9 Macrocytic anemia D53.9 Mass of bladder N32.89 Type 2 diabetes mellitus without complications E11.9 Allergies albuterol Allergy (Verified 06/02/18 01:14) Unknown clonazepam Allergy (Verified 06/02/18 01:14) Unknown ibuprofen Allergy (Verified 06/02/18 01:14) Unknown ipratropium Allergy (Verified 06/02/18 01:14) Unknown aspirin Adverse Reaction (Verified 06/02/18 01:14) Vomiting pt states he vomits blood Home Medications: Ambulatory Orders Medication Instructions Recorded ALPRAZolam [Xanax] 0.5 mg PO 4X/DAY PRN 10/24/15 Ascorbic Acid [Vitamin C] 1,000 mg PO DAILY 10/24/15 Fosinopril Sodium [Monopril] 5 mg PO DAILY 10/24/15 Garlic 1 mg PO DAILY 10/24/15 Metformin HCl [Glucophage] 1,000 mg PO DAILY 10/24/15 Multivitamin [Daily Multiple 1 ea PO DAILY 10/24/15 Vitamin] [place]omb-3 Fatty Acids/Fish Oil 1,000 mg PO DAILY 10/24/15 [[place] 3 1,000 mg Softgel] Vitamin B Complex 1 ea PO DAILY 10/24/15 Vitamin E 1,000 unit PO DAILY 10/24/15 Cyanocobalamin (Vitamin B-12) 5,000 mcg SL BID 09/18/17 [Vitamin B-12] Methylsulfonylmethane [MSM] 1,500 mg PO BID 09/18/17 Niacinamide 500 mg PO DAILY 09/18/17 Pyridoxine HCl [Vitamin B6] 100 mg PO BID 09/18/17 Sodium Chloride 1 gm PO DAILY 09/18/17 Ubidecarenone [Co Q-10] 200 mg PO DAILY 09/18/17 Vanadyl Sulfate 10 mg PO DAILY 09/18/17 furosemide 40 mg tablet 40 mg PO QDAY #90 tab 09/25/17 simvastatin 40 mg tablet 20 mg PO QHS 09/25/17 Cholecalciferol (VIT D3) [Vitamin 1,000 unit PO DAILY 10/29/17 D3] Ferrous Sulfate [Iron] 325 mg PO DAILY 10/29/17 Apixaban [Eliquis] 5 mg PO BID 03/14/18 Duloxetine Hcl [Cymbalta] 30 mg pe PO DAILY 03/14/18 Acetaminophen [Tylenol Extra 500 mg PO Q4H PRN PRN #20 tablet 03/19/18 Strength] Lisinopril [Zestril] mg PO DAILY 03/19/18 Metoprolol Tartrate [Lopressor 50 mg PO BID 06/02/18 (beta lisa)] Surgical History: Surgical History (Last Reviewed 06/05/18 @ 07:40 by Dangelo Alvarado MD) History of aortic valve replacement with bioprosthetic valve (Chronic) Onset Date: ~11/12/16 Z95.3 Trifecta GT Tissue Heart Valve Serial # [id number] Model TFGT- 25A @ [facility] Surgical History: cataract - bilateral, - - aortic valve replacement October 2016, 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 Lives: Alone Smoking Status: Former smoker Alcohol: None, Rare - *Family History Sibling Family History: Family History (Last Reviewed 06/05/18 @ 07:40 by Dangelo Alvarado MD) Sister Heart disease Brother Cancer History Items: Heart Disease Maternal Family History: Family History (Last Reviewed 06/05/18 @ 07:40 by Dangelo Alvarado MD) Sister Heart disease Brother Cancer History Items: No pertinent history Paternal Family History: Family History (Last Reviewed 06/05/18 @ 07:40 by Dangelo Alvarado MD) Sister Heart disease Brother Cancer History Items: No pertinent history Physical Exam - Physical Exam Vital Signs Temp 100.9 F H 06/05/18 06:00 Pulse 104 H 06/05/18 07:00 Resp 19 H 06/05/18 07:00 BP 125/52 H 06/05/18 07:00 Pulse Ox 99 06/05/18 07:00 Intake & Output 06/03/18 06/04/18 06/05/18 23:59 23:59 23:59 Intake Total 2523 / 2523 4505 / 4505 421 / 421 Output Total 1125 / 1125 1550 / 1550 600 / 600 Balance 1398 / 1398 2955 / 2955 -179 / -179 Weight: 76.2 kg 78.4 kg 78.5 kg Intake: IV fluid/meds 1924 / 1924 2306 / 2306 421 / 421 Blood Product 100 / 100 800 / 800 Leuko-Reduced Red Blood Cells 0 / 0 Unit [id number] Leuko-Reduced Red Blood Cells 0 / 0 Unit [id number] Tube Feeding 104 / 104 809 / 809 NG/PEG Flush 395 / 395 590 / 590 Oral Gastric Tube 245 / 245 155 / 155 Output: Urine 1125 / 1125 1375 / 1375 400 / 400 Gastric Drainage 175 / 175 200 / 200 Other: Incontinent Amount Urine #2 Large General: Confused HEENT: Atraumatic Oral: Moist Mucosa Neck: Supple Lungs: - - Intubated Cardiovascular: Regular rate, Regular Rhythm Abdomen: Soft Microbiology Past 72 Hours 06/03/18 15:20 Urine Culture - Preliminary Urine Catheter - [place] Gram positive organism 06/02/18 22:30 Gram Stain - Final Sputum, Expectorated/Coughed Respiratory Culture - Preliminary Appears to be normal respiratory betty. Further studies to follow. 06/02/18 01:55 Urine Culture - Final Urine, Clean Catch GPC Poss Enterococcus sp 06/02/18 01:10 Blood Culture - Preliminary Blood Culture (Wb) - Right Forearm No growth in 48 hours. 06/02/18 01:24 Blood Culture - Preliminary Blood Culture (Wb) - Anticubital Left No growth in 48 hours. 06/02/18 22:30 Respiratory Panel (PCR) - Final Mucosa - Nose 06/02/18 02:15 Influenza Types A,B Direct FA (CHELE) - Final Mucosa - Nose Laboratory Tests Past 24 Hrs 06/04/18 06/04/18 06/04/18 03:30 09:55 15:00 Hgb 8.6 L Hct 26.3 L Diff Path Review Reviewed APTT 57.5 H Sodium Potassium Chloride Carbon Dioxide Anion Gap BUN Creatinine Estim Creat Clear Calc Est GFR (MDRD) Af Amer Est GFR (MDRD) Non-Af BUN/Creatinine Ratio Glucose Hemoglobin A1c Calcium Vancomycin Trough 06/04/18 06/05/18 06/05/18 15:00 02:00 03:55 Hgb Hct Diff Path Review APTT 32.6 Sodium Potassium Chloride Carbon Dioxide Anion Gap BUN Creatinine Estim Creat Clear Calc Est GFR (MDRD) Af Amer Est GFR (MDRD) Non-Af BUN/Creatinine Ratio Glucose Hemoglobin A1c 6.2 Calcium Vancomycin Trough 11.8 06/05/18 06/05/18 03:55 03:55 Hgb 7.8 L Hct 24.2 L Diff Path Review APTT Sodium 148 H Potassium 4.4 Chloride 116 H Carbon Dioxide 19.0 L Anion Gap 13 BUN 116 H* Creatinine 1.92 H Estim Creat Clear Calc 28.61 Est GFR (MDRD) Af Amer 44 L Est GFR (MDRD) Non-Af 36 L BUN/Creatinine Ratio 60.4 H Glucose 316 H Hemoglobin A1c Calcium 8.1 L Vancomycin Trough Assessment/Plan All Active Problems (Last Reviewed 06/04/18 @ 15:59 by Opal Kyle PA-C) Atrial fibrillation and flutter (Acute) Fever (Acute) Anemia (Acute) Thrombocytopenia (Acute) Bilateral hydronephrosis (Acute) 77-year-old male with multiple medical problems including metastatic prostate cancer to the bones currently on hormone deprivation therapy by an orchiectomy in the past. Also history of TURP from obstruction of the prostate and hydronephrosis and retention of urine is now developed hydronephrosis bilaterally probably from his prostate cancer at this point recommend he undergo bilateral nephrostomy tubes by interventional radiologist. Nephrostomy tubes were ordered.
--- NOTE | 2018-06-05 07:41 | CT_ITS ---
PROCEDURE: DIGITAL COMPUTERIZED TOMOGRAPHIC GUIDANCE DURING PERCUTANEOUS NEPHROSTOMY PROCEDURE. DATE OF EXAMINATION: June 05, 2018. INDICATION: Male, 77 years old. Right hydronephrosis. PHYSICIAN: Javier Unger M.D. CONSENT: The patient's history and physical findings were reviewed. Prior to the procedure the percutaneous nephrostomy was described to the patient's son who then signed a consent. SEDATION: Conscious sedation was started at 12:55 PM and terminated at 1:10 PM. The patient was on a continuous drip of propofol at 10 mg/kg/m as well as fentanyl and 50 mcg per hour. Individualized dose reduction techniques were utilized. TECHNIQUE: A 8.5 [place] percutaneous right nephrostomy catheter was inserted under CT guidance. A loop of the pigtail catheter was formed within the right renal pelvis and locked in this position. There is dilatation of the upper collecting system and dilatation of the right ureter to the bladder. The catheter was secured to the skin surface and covered with a sterile dressing. The catheter was attached to a drainage bag attached to the patient's leg. CT/Nephrotube Placement CT IMPRESSION: 1. The percutaneous right nephrostomy catheter is in good position with the pigtail portion located in the right renal pelvis. 2. The conscious sedation protocol was followed. Electronically Signed: Javier Unger, at 14:33 EST , Service support ,
--- NOTE | 2018-06-05 07:41 | CON.PCM_ITS ---
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 He is now been admitted to the hospital in respiratory failure he is in the ICU. CAT scan was done and he has bilateral hydronephrosis. His anatomy with the prostate and bladder was quite difficult because of the prostate cancer I do not think stent placement from below is going to be possible we will recommend that we proceed with nephrostomy tubes bilaterally this can be placed by interventional radiologist. I spoke to the son today and the son was willing to do anything as necessary to improve his father's care. 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) Dyslipidemia (Chronic) Paroxysmal atrial fibrillation (Chronic) History of aortic valve replacement with bioprosthetic valve (Chronic ~11/12/16) Trifecta GT Tissue Heart Valve Serial # [id number] Model TFGT- 25A @ [facility] BPH with urinary obstruction (Chronic) Hypertension (Chronic) Medical History: Medical History (Last Reviewed 06/05/18 @ 07:40 by Dangelo Alvarado MD) Dyslipidemia (Chronic) E78.5 Paroxysmal atrial fibrillation (Chronic) I48.0 BPH with urinary obstruction (Chronic) N40.1, N13.8 Hypertension (Chronic) I10 Arthritis M19.90 GERD (gastroesophageal reflux disease) K21.9 Macrocytic anemia D53.9 Mass of bladder N32.89 Type 2 diabetes mellitus without complications E11.9 Allergies albuterol Allergy (Verified 06/02/18 01:14) Unknown clonazepam Allergy (Verified 06/02/18 01:14) Unknown ibuprofen Allergy (Verified 06/02/18 01:14) Unknown ipratropium Allergy (Verified 06/02/18 01:14) Unknown aspirin Adverse Reaction (Verified 06/02/18 01:14) Vomiting pt states he vomits blood Home Medications: Ambulatory Orders Medication Instructions Recorded ALPRAZolam [Xanax] 0.5 mg PO 4X/DAY PRN 10/24/15 Ascorbic Acid [Vitamin C] 1,000 mg PO DAILY 10/24/15 Fosinopril Sodium [Monopril] 5 mg PO DAILY 10/24/15 Garlic 1 mg PO DAILY 10/24/15 Metformin HCl [Glucophage] 1,000 mg PO DAILY 10/24/15 Multivitamin [Daily Multiple 1 ea PO DAILY 10/24/15 Vitamin] Seaman-3 Fatty Acids/Fish Oil 1,000 mg PO DAILY 10/24/15 [[place]aman 3 1,000 mg Softgel] Vitamin B Complex 1 ea PO DAILY 10/24/15 Vitamin E 1,000 unit PO DAILY 10/24/15 Cyanocobalamin (Vitamin B-12) 5,000 mcg SL BID 09/18/17 [Vitamin B-12] Methylsulfonylmethane [MSM] 1,500 mg PO BID 09/18/17 Niacinamide 500 mg PO DAILY 09/18/17 Pyridoxine HCl [Vitamin B6] 100 mg PO BID 09/18/17 Sodium Chloride 1 gm PO DAILY 09/18/17 Ubidecarenone [Co Q-10] 200 mg PO DAILY 09/18/17 Vanadyl Sulfate 10 mg PO DAILY 09/18/17 furosemide 40 mg tablet 40 mg PO QDAY #90 tab 09/25/17 simvastatin 40 mg tablet 20 mg PO QHS 09/25/17 Cholecalciferol (VIT D3) [Vitamin 1,000 unit PO DAILY 10/29/17 D3] Ferrous Sulfate [Iron] 325 mg PO DAILY 10/29/17 Apixaban [Eliquis] 5 mg PO BID 03/14/18 Duloxetine Hcl [Cymbalta] 30 mg pe PO DAILY 03/14/18 Acetaminophen [Tylenol Extra 500 mg PO Q4H PRN PRN #20 tablet 03/19/18 Strength] Lisinopril [Zestril] mg PO DAILY 03/19/18 Metoprolol Tartrate [Lopressor 50 mg PO BID 06/02/18 (beta lisa)] Surgical History: Surgical History (Last Reviewed 06/05/18 @ 07:40 by Dangelo Alvarado MD) History of aortic valve replacement with bioprosthetic valve (Chronic) Onset Date: ~11/12/16 Z95.3 Trifecta GT Tissue Heart Valve Serial # [id number] Model TFGT- 25A @ [facility] Surgical History: cataract - bilateral, - - aortic valve replacement October 2016, 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 Lives: Alone Smoking Status: Former smoker Alcohol: None, Rare - *Family History Sibling Family History: Family History (Last Reviewed 06/05/18 @ 07:40 by Dangelo Alvarado MD) Sister Heart disease Brother Cancer History Items: Heart Disease Maternal Family History: Family History (Last Reviewed 06/05/18 @ 07:40 by Dangelo Alvarado MD) Sister Heart disease Brother Cancer History Items: No pertinent history Paternal Family History: Family History (Last Reviewed 06/05/18 @ 07:40 by Dangelo Alvarado MD) Sister Heart disease Brother Cancer History Items: No pertinent history Physical Exam - Physical Exam Vital Signs Temp 100.9 F H 06/05/18 06:00 Pulse 104 H 06/05/18 07:00 Resp 19 H 06/05/18 07:00 BP 125/52 H 06/05/18 07:00 Pulse Ox 99 06/05/18 07:00 Intake & Output 06/03/18 06/04/18 06/05/18 23:59 23:59 23:59 Intake Total 2523 / 2523 4505 / 4505 421 / 421 Output Total 1125 / 1125 1550 / 1550 600 / 600 Balance 1398 / 1398 2955 / 2955 -179 / -179 Weight: 76.2 kg 78.4 kg 78.5 kg Intake: IV fluid/meds 1924 / 1924 2306 / 2306 421 / 421 Blood Product 100 / 100 800 / 800 Leuko-Reduced Red Blood Cells 0 / 0 Unit [id number] Leuko-Reduced Red Blood Cells 0 / 0 Unit [id number] Tube Feeding 104 / 104 809 / 809 NG/PEG Flush 395 / 395 590 / 590 Oral Gastric Tube 245 / 245 155 / 155 Output: Urine 1125 / 1125 1375 / 1375 400 / 400 Gastric Drainage 175 / 175 200 / 200 Other: Incontinent Amount Urine #2 Large General: Confused HEENT: Atraumatic Oral: Moist Mucosa Neck: Supple Lungs: - - Intubated Cardiovascular: Regular rate, Regular Rhythm Abdomen: Soft Microbiology Past 72 Hours 06/03/18 15:20 Urine Culture - Preliminary Urine Catheter - [place] Gram positive organism 06/02/18 22:30 Gram Stain - Final Sputum, Expectorated/Coughed Respiratory Culture - Preliminary Appears to be normal respiratory betty. Further studies to follow. 06/02/18 01:55 Urine Culture - Final Urine, Clean Catch GPC Poss Enterococcus sp 06/02/18 01:10 Blood Culture - Preliminary Blood Culture (Wb) - Right Forearm No growth in 48 hours. 06/02/18 01:24 Blood Culture - Preliminary Blood Culture (Wb) - Anticubital Left No growth in 48 hours. 06/02/18 22:30 Respiratory Panel (PCR) - Final Mucosa - Nose 06/02/18 02:15 Influenza Types A,B Direct FA (CHELE) - Final Mucosa - Nose Laboratory Tests Past 24 Hrs 06/04/18 06/04/18 06/04/18 03:30 09:55 15:00 Hgb 8.6 L Hct 26.3 L Diff Path Review Reviewed APTT 57.5 H Sodium Potassium Chloride Carbon Dioxide Anion Gap BUN Creatinine Estim Creat Clear Calc Est GFR (MDRD) Af Amer Est GFR (MDRD) Non-Af BUN/Creatinine Ratio Glucose Hemoglobin A1c Calcium Vancomycin Trough 06/04/18 06/05/18 06/05/18 15:00 02:00 03:55 Hgb Hct Diff Path Review APTT 32.6 Sodium Potassium Chloride Carbon Dioxide Anion Gap BUN Creatinine Estim Creat Clear Calc Est GFR (MDRD) Af Amer Est GFR (MDRD) Non-Af BUN/Creatinine Ratio Glucose Hemoglobin A1c 6.2 Calcium Vancomycin Trough 11.8 06/05/18 06/05/18 03:55 03:55 Hgb 7.8 L Hct 24.2 L Diff Path Review APTT Sodium 148 H Potassium 4.4 Chloride 116 H Carbon Dioxide 19.0 L Anion Gap 13 BUN 116 H* Creatinine 1.92 H Estim Creat Clear Calc 28.61 Est GFR (MDRD) Af Amer 44 L Est GFR (MDRD) Non-Af 36 L BUN/Creatinine Ratio 60.4 H Glucose 316 H Hemoglobin A1c Calcium 8.1 L Vancomycin Trough Assessment/Plan All Active Problems (Last Reviewed 06/04/18 @ 15:59 by Opal Kyle PA-C) Atrial fibrillation and flutter (Acute) Fever (Acute) Anemia (Acute) Thrombocytopenia (Acute) Bilateral hydronephrosis (Acute) 77-year-old male with multiple medical problems including metastatic prostate cancer to the bones currently on hormone deprivation therapy by an orchiectomy in the past. Also history of TURP from obstruction of the prostate and hydronephrosis and retention of urine is now developed hydronephrosis bilaterally probably from his prostate cancer at this point recommend he undergo bilateral nephrostomy tubes by interventional radiologist. Nephrostomy tubes were ordered.
--- NOTE | 2018-06-05 07:53 | PCM.PN.HOSP ---
Patient Problems: Active and Suspected Problems (Last Reviewed 06/05/18 @ 07:40 by Dangelo Alvarado MD) Atrial fibrillation and flutter (Acute) Fever (Acute) Anemia (Acute) Thrombocytopenia (Acute) Bilateral hydronephrosis (Acute) Subjective: Patient was seen and examined. A bit move awake, opens eyes and follows. Had episodes of GI bleeding from NG tube yesterday. Tube feeds and Heparin drip on hold. Had an EGD done today that showed 2 ulcers - nonbleeding gastric ulcer, non-bleeding duodenal ulcer with adherent clot by general surgery. Continues to have fevers, Tmax 101.2F. CT abdomen and pelvis shows bilateral hydronephrosis, right greater than left with bilateral hydroureter, diffusely thickened bladder wall. Urology consulted Objective: Physical exam: General: - - sedated, intubated, on mechanical ventilator HEENT: Atraumatic, PERRLA, EOMI, Normocephalic Oral: Dry Mucosa Neck: Supple Lungs: Normal air movement, Diminished Cardiovascular: Regular rate, Regular Rhythm, Normal S1, Normal S2, No murmurs Abdomen: Bowel Sounds Present, Soft, Non Tender, Non-Distended, No Hepato-splenomegaly, - - Crump catheter in situ Extremities: No edema Skin: No rashes Musculoskeletal: No Tenderness to Palpation of Joints or Extremities Lymphatic: No Cervical, Supraclavicular, or Inguinal Adenopathy Neurological: Cranial nerves II-XII grossly intact, Neuro grossly intact Psych/Mental Status: Normal Affect, Appropriate Vitals/I&O's: Vital Signs Temp Pulse Resp BP Pulse Ox 100.9 F H 104 H 19 H 125/52 H 99 06/05/18 06:00 06/05/18 07:00 06/05/18 07:00 06/05/18 07:00 06/05/18 07:00 Oxygen Flow Rate (L/min) 2 Oxygen Delivery Method Mechanical Ventilator Weight: 78.5 kg Body Mass Index (BMI) 27.1 Finger Stick Blood Glucose 95 Intake and Output for Last 24 Hours 06/03/18 06/04/18 06/05/18 23:59 23:59 23:59 Intake Total 2523 / 2523 4505 / 4505 421 / 421 Output Total 1125 / 1125 1550 / 1550 600 / 600 Balance 1398 / 1398 2955 / 2955 -179 / -179 Microbiology Past 72 Hours 06/03/18 15:20 Urine Catheter - Crump Urine Culture - Preliminary Gram positive organism 06/02/18 22:30 Sputum, Expectorated/Coughed Gram Stain - Final 06/02/18 22:30 Sputum, Expectorated/Coughed Respiratory Culture - Preliminary Appears to be normal respiratory betty. Further studies to follow. 06/02/18 01:55 Urine, Clean Catch Urine Culture - Final GPC Poss Enterococcus sp 06/02/18 01:10 Blood Culture (Wb) - Right Forearm Blood Culture - Preliminary No growth in 48 hours. 06/02/18 01:24 Blood Culture (Wb) - Anticubital Left Blood Culture - Preliminary No growth in 48 hours. 06/02/18 22:30 Mucosa - Nose Respiratory Panel (PCR) - Final Laboratory Results 06/04/18 03:30: Diff Path Review Reviewed 06/04/18 09:55: APTT 57.5 H 06/04/18 11:39: POC Glucose 394 H 06/04/18 15:00: Hgb 8.6 L, Hct 26.3 L 06/04/18 15:00: Hemoglobin A1c 6.2 06/04/18 17:10: POC Glucose 329 H 06/04/18 23:21: POC Glucose 292 H 06/05/18 02:00: Vancomycin Trough 11.8 06/05/18 03:55: APTT 32.6 06/05/18 03:55: Hgb 7.8 L, Hct 24.2 L 06/05/18 03:55: Sodium 148 H, Potassium 4.4, Chloride 116 H, Carbon Dioxide 19.0 L, Anion Gap 13, BUN 116 H*, Creatinine 1.92 H, Estim Creat Clear Calc 28.61, Est GFR (MDRD) Af Amer 44 L, Est GFR (MDRD) Non-Af 36 L, BUN/Creatinine Ratio 60.4 H, Glucose 316 H, Calcium 8.1 L 06/05/18 05:30: POC Glucose 266 H Current Medications Acetaminophen (Tylenol Liquid) 650 mg GT Q6H PRN PRN PRN Reason: Fever, headache, pain Last Admin: 06/04/18 08:59 Dose: 650 mg Atorvastatin Calcium (Lipitor) 10 mg GT QHS [facility] Last Admin: 06/04/18 21:44 Dose: Not Given Chlorhexidine Gluconate () 15 ml PO BID [facility] Last Admin: 06/04/18 21:12 Dose: 15 ml Chlorhexidine Gluconate () 1 each TOPICAL DAILY [facility] Last Admin: 06/05/18 05:33 Dose: 1 each Duloxetine HCl (Cymbalta) 30 mg PO DAILY [facility] Last Admin: 06/04/18 10:27 Dose: 30 mg Heparin Sodium (Porcine) (Heparin Na) 0 unit IV UD PRN; Protocol Sodium Chloride () 250 mls @ 15 mls/hr IV .[id number] PRN PRN Reason: SALINE FLUSH Last Admin: 06/03/18 02:30 Dose: 15 mls/hr Propofol (Diprivan) 1,000 mg in 100 mls @ 4.596 mls/hr CONT INF .Q12H [facility] Last Admin: 06/04/18 23:23 Dose: 4.596 mls/hr Piperacillin Sod/Tazobactam (Sod 3.375 gm/ Sodium Chloride) 50 mls @ 12.5 mls/hr IV Q8 [facility] Last Admin: 06/05/18 05:33 Dose: 12.5 mls/hr Vancomycin IV Pharmacy to Dose (1 ea/ Sodium Chloride) 500 mls @ 250 mls/hr IV X1 PRN; Protocol PRN Reason: Rx to Dose Fentanyl () 100 mls @ 2.5 mls/hr IV .Q40H [facility] Last Admin: 06/04/18 18:19 Dose: 2.5 mls/hr Heparin Sodium/Dextrose () 25,000 units in 250 mls @ 11 mls/hr IV .[id number] [facility]; Protocol Last Admin: 06/05/18 01:27 Dose: Not Given Pantoprazole Sodium 40 mg/ (Sodium Chloride) 110 mls @ 330 mls/hr IV Q12 [facility] Last Admin: 06/04/18 21:11 Dose: 330 mls/hr Amiodarone HCl 360 mg/ (Dextrose) 200 mls @ 16.67 mls/hr CONT INF .Q12H [facility] Last Admin: 06/05/18 03:24 Dose: 16.67 mls/hr Enteral Nutritional Formula (Vital Af 1.2 Abilio Liquid) 1,000 mls @ 50 mls/hr GT .Q20H [facility] Last Admin: 06/05/18 07:04 Dose: Not Given Vancomycin HCl 1,250 mg/ (Sodium Chloride) 275 mls @ 167 mls/hr IV Q24H [facility] Insulin Human Lispro (Humalog Kwikpen (Bkc)) 0 unit SC Q6 [facility]; Protocol Last Admin: 06/05/18 05:33 Dose: 9 u Magnesium Hydroxide (Milk Of Magnesia) 30 ml GT DAILY PRN PRN Reason: Constipation Metoprolol Tartrate (Lopressor (Beta Lisa)) 12.5 mg GT BID [facility] Last Admin: 06/04/18 21:44 Dose: Not Given Ondansetron HCl (Zofran) 4 mg IV Q6H PRN PRN PRN Reason: NAUSEA/VOMITING Sodium Chloride () 5 - 15 ml IV UD PRN PRN Reason: SALINE FLUSH Last Admin: 06/05/18 05:33 Dose: 10 ml Medical Necessity - Tobacco Use Smoking Status: Former smoker Assessment/Plan All Active Problems (Last Reviewed 06/05/18 @ 07:40 by Dangelo Alvarado MD) Atrial fibrillation and flutter (Acute) Fever (Acute) Anemia (Acute) Thrombocytopenia (Acute) Bilateral hydronephrosis (Acute) 77-year-old male with past medical history of metastatic prostate cancer to the bone, history of aortic valve replacement with bioprosthetic valve, CKD, hypertension, BPH admitted on 06/02/18 with altered mental status initially managed as sepsis secondary to acute cystitis. Patient was found to have gone into respiratory failure resulting in intubation and transferred to the ICU 1. Acute respiratory failure, unclear etiology, likely metabolically related Remains intubated, on mechanical ventilator Initial chest x-ray was negative for infiltrate, VQ scan shows low probability for PE Subsequent chest x-ray and chest CT without contrast showed bilateral pleural effusions 2D echo shows EF of 65%, stage 1 diastolic dysfunction, no acute abnormality Explosive Ordnance Disposal Technician consulted, will continue per recommendations 2. A. fib/A. flutter with RVR, history of paroxysmal atrial fibrillation, rate is better controlled, in normal sinus rhythm On amiodarone, metoprolol. Heparin drip on hold on account of GI bleed. 3. 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 Acute GI bleed status post EGD, secondary to gastric and duodenal ulcer, on IV PPI, will add sucralfate, will monitor for further bleeding 5. Sepsis secondary to enterococcus UTI, possible CAP, on Zosyn and Vancomycin, Blood cultures are negative. Continues to have fevers despite being on antibiotics ID consulted, CT abdomen and pelvis pending. 6. Complicated UTI secondary to bilateral hydronephrosis, history of metastatic prostate CA Urology consulted, recommends bilateral nephrostomy tubes 7. Indeterminate troponins, likely secondary to sepsis and respiratory failure, peaked at 0.099, dropped to 0.084 8. CKD stage 3, Cr is about his baseline, will be monitoring 9. Hypertension, relatively hypotension, started on metoprolol 12.5mg GT BID, will continue to monitor 10. Metastatic prostate cancer with metastases to the bone, never treated 11. s/p aortic valve replacement with bioprosthetic valve 12. BPH s/p crump catheter 13. DVT PPx- on Heparin drip Code Visit Inpatient E&M: 02794 Subs Hosp L3
--- NOTE | 2018-06-05 08:07 | PCM.PN.SRG ---
Patient Problems: Active and Suspected Problems (Last Reviewed 06/05/18 @ 07:40 by Dangelo Alvarado MD) Atrial fibrillation and flutter (Acute) Fever (Acute) Anemia (Acute) Thrombocytopenia (Acute) Bilateral hydronephrosis (Acute) Subjective: PAtient evaluated resting in bed this morning. Hgb has decreased to 7.8. - Physical Exam General: Alert, Cooperative Abdomen: Soft, Non Tender, Hypoactive Bowel Sounds Vital Signs Temp Pulse Resp BP Pulse Ox 100.9 F H 104 H 19 H 125/52 H 99 06/05/18 06:00 06/05/18 07:00 06/05/18 07:00 06/05/18 07:00 06/05/18 07:00 Oxygen Flow Rate (L/min) 2 Oxygen Delivery Method Mechanical Ventilator Weight: 173 lb 1.006 oz Body Mass Index (BMI) 27.1 Finger Stick Blood Glucose 95 Intake and Output for Last 24 Hours 06/03/18 06/04/18 06/05/18 23:59 23:59 23:59 Intake Total 2523 / 2523 4505 / 4505 421 / 421 Output Total 1125 / 1125 1550 / 1550 600 / 600 Balance 1398 / 1398 2955 / 2955 -179 / -179 Microbiology Past 72 Hours 06/03/18 15:20 Urine Culture - Preliminary Urine Catheter - [place] Gram positive organism 06/02/18 22:30 Gram Stain - Final Sputum, Expectorated/Coughed Respiratory Culture - Preliminary Appears to be normal respiratory betty. Further studies to follow. 06/02/18 01:55 Urine Culture - Final Urine, Clean Catch GPC Poss Enterococcus sp 06/02/18 01:10 Blood Culture - Preliminary Blood Culture (Wb) - Right Forearm No growth in 48 hours. 06/02/18 01:24 Blood Culture - Preliminary Blood Culture (Wb) - Anticubital Left No growth in 48 hours. 06/02/18 22:30 Respiratory Panel (PCR) - Final Mucosa - Nose Laboratory Tests Past 24 Hrs 06/04/18 06/04/18 06/04/18 03:30 09:55 15:00 Hgb 8.6 L Hct 26.3 L Diff Path Review Reviewed APTT 57.5 H Sodium Potassium Chloride Carbon Dioxide Anion Gap BUN Creatinine Estim Creat Clear Calc Est GFR (MDRD) Af Amer Est GFR (MDRD) Non-Af BUN/Creatinine Ratio Glucose Hemoglobin A1c Calcium Vancomycin Trough 06/04/18 06/05/18 06/05/18 15:00 02:00 03:55 Hgb Hct Diff Path Review APTT 32.6 Sodium Potassium Chloride Carbon Dioxide Anion Gap BUN Creatinine Estim Creat Clear Calc Est GFR (MDRD) Af Amer Est GFR (MDRD) Non-Af BUN/Creatinine Ratio Glucose Hemoglobin A1c 6.2 Calcium Vancomycin Trough 11.8 06/05/18 06/05/18 03:55 03:55 Hgb 7.8 L Hct 24.2 L Diff Path Review APTT Sodium 148 H Potassium 4.4 Chloride 116 H Carbon Dioxide 19.0 L Anion Gap 13 BUN 116 H* Creatinine 1.92 H Estim Creat Clear Calc 28.61 Est GFR (MDRD) Af Amer 44 L Est GFR (MDRD) Non-Af 36 L BUN/Creatinine Ratio 60.4 H Glucose 316 H Hemoglobin A1c Calcium 8.1 L Vancomycin Trough POC Glucose 06/05/18 06/04/18 06/04/18 05:30 23:21 17:10 POC Glucose 266 H 292 H 329 H 06/04/18 11:39 POC Glucose 394 H Medical Necessity - Tobacco Use Smoking Status: Former smoker Assessment/Plan All Active Problems (Last Reviewed 06/05/18 @ 07:40 by Dangelo Alvarado MD) Atrial fibrillation and flutter (Acute) Fever (Acute) Anemia (Acute) Thrombocytopenia (Acute) Bilateral hydronephrosis (Acute) I have been consulted in conjunction with Dr. Sandoval. Impression: Upper GI bleed - Dr. Sandoval will plan to perform an upper scope in the unit this morning - Spoke with PATRICANilson dinorah Goyo, who will be in around 0900 this morning to sign consent Code Visit Inpatient E&M: 57958 Subs Hosp L1 - NO CHARGE
--- NOTE | 2018-06-05 09:35 | CASEMGMT ---
SW participated in ICU rounds this morning, pt remains on a ventilator today. Pt's son who is POA is present. SW offered support to son after rounds and remains available for support to family as needed. VENANCIO Collado, LOGISTICS SUPPORT
--- NOTE | 2018-06-05 09:45 | CASEMGMT ---
RN YOLIS Note: Spoke with son who verbalized concern for his father's progress. Discussed information given in rounds; son has concerns as pt has active cancer. Son stated he hopes he keeps fighting. Son feeling tired; RN YOLIS allowed son to verbalize, answered questions and offered emotional support. Let son know pt would be well cared for by ICU staff if he went home and rested. He would be contacted with any changes in condition. Aditya ROLON RN AC
--- NOTE | 2018-06-05 10:22 | NURSING ---
1000 endoscopy setting up for EGD at bedside Dr. Sandoval and Dr. Nicholson at bedside Dr. Nicholson administered sedation from IV pump
--- NOTE | 2018-06-05 10:29 | PCM.PN.ID ---
Patient Problems: Active and Suspected Problems (Last Reviewed 06/05/18 @ 07:40 by Dangleo Alvarado MD) Atrial fibrillation and flutter (Acute) Fever (Acute) Anemia (Acute) Thrombocytopenia (Acute) Bilateral hydronephrosis (Acute) Subjective: On vent, EGD this AM for GI bleed. Fever overnight. - Physical Exam General: No apparent distress Lungs: Diminished Cardiovascular: Regular rate, Regular Rhythm Abdomen: Soft, Non Tender, Non-Distended Skin: No rashes Vital Signs Temp Pulse Resp BP Pulse Ox 101.1 F H 105 H 26 H 124/48 H 98 06/05/18 08:00 06/05/18 09:00 06/05/18 09:00 06/05/18 09:00 06/05/18 09:00 Oxygen Flow Rate (L/min) 2 Oxygen Delivery Method Mechanical Ventilator Weight: 78.5 kg Body Mass Index (BMI) 27.1 Finger Stick Blood Glucose 95 Intake and Output for Last 24 Hours 06/03/18 06/04/18 06/05/18 23:59 23:59 23:59 Intake Total 2523 / 2523 4505 / 4505 446 / 446 Output Total 1125 / 1125 1550 / 1550 600 / 600 Balance 1398 / 1398 2955 / 2955 -154 / -154 Microbiology Past 72 Hours 06/03/18 15:20 Urine Culture - Preliminary Urine Catheter - [place] GPC Poss Enterococcus sp 06/02/18 22:30 Gram Stain - Final Sputum, Expectorated/Coughed Respiratory Culture - Final Mixed normal respiratory betty. No Streptococcus pneumoniae, beta-hemolytic Streptococcus or Staphylococcus aureus isolated. 06/02/18 01:55 Urine Culture - Final Urine, Clean Catch GPC Poss Enterococcus sp 06/02/18 01:10 Blood Culture - Preliminary Blood Culture (Wb) - Right Forearm No growth in 48 hours. 06/02/18 01:24 Blood Culture - Preliminary Blood Culture (Wb) - Anticubital Left No growth in 48 hours. 06/02/18 22:30 Respiratory Panel (PCR) - Final Mucosa - Nose Laboratory Tests Past 24 Hrs 06/04/18 06/04/18 06/04/18 03:30 15:00 15:00 Hgb 8.6 L Hct 26.3 L Diff Path Review Reviewed APTT Sodium Potassium Chloride Carbon Dioxide Anion Gap BUN Creatinine Estim Creat Clear Calc Est GFR (MDRD) Af Amer Est GFR (MDRD) Non-Af BUN/Creatinine Ratio Glucose Hemoglobin A1c 6.2 Calcium Vancomycin Trough 06/05/18 06/05/18 06/05/18 02:00 03:55 03:55 Hgb 7.8 L Hct 24.2 L Diff Path Review APTT 32.6 Sodium Potassium Chloride Carbon Dioxide Anion Gap BUN Creatinine Estim Creat Clear Calc Est GFR (MDRD) Af Amer Est GFR (MDRD) Non-Af BUN/Creatinine Ratio Glucose Hemoglobin A1c Calcium Vancomycin Trough 11.8 06/05/18 03:55 Hgb Hct Diff Path Review APTT Sodium 148 H Potassium 4.4 Chloride 116 H Carbon Dioxide 19.0 L Anion Gap 13 BUN 116 H* Creatinine 1.92 H Estim Creat Clear Calc 28.61 Est GFR (MDRD) Af Amer 44 L Est GFR (MDRD) Non-Af 36 L BUN/Creatinine Ratio 60.4 H Glucose 316 H Hemoglobin A1c Calcium 8.1 L Vancomycin Trough POC Glucose 06/05/18 06/04/18 06/04/18 05:30 23:21 17:10 POC Glucose 266 H 292 H 329 H 06/04/18 11:39 POC Glucose 394 H Medical Necessity - Tobacco Use Smoking Status: Former smoker Route of nutrition/ use of supplements: [] Nutritional Intake: [] IV Site: [] [place] Catheter: [] - Assessment/Plan Antibiotics: [] Assessment/Plan: [] Active and Suspected Problems (Last Updated 06/02/18 @ 03:12 by Sally Cm MD) Atrial fibrillation and flutter (Acute) Fever (Acute) Anemia (Acute) Thrombocytopenia (Acute) Fever - at this point seems likely due to 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 UA with mild pyuria, Ucx with only small growth of enterococcus-like. On vanc/zosyn. Bcx neg so far. Dr. Alvarado now following, neph tubes planned. Will follow, d/w Dr. Nicholson.
[2018-06-05] MEDS: Chlorhexidine 15 ML PO ×2 (10:47→20:57)
[2018-06-05 10:50] LABS: International Normalized Ratio 1.7; Prothrombin Time (Protime)PT. 19.9 SECONDS (11.7-14.9)
[2018-06-05] MEDS: Polyethylene Glycol 3350 17 GM PACKET GT ×2 (10:50→20:57)
[2018-06-05] MEDS: Metoprolol Tartrate 25 MG Tablet 12.5 MG GT ×2 (10:51→20:55)
[2018-06-05] MEDS: Senna/Docusate Sodium 1 Tablet 2 TABLET GT ×2 (10:51→20:56)
[2018-06-05] MEDS: DULoxetine Hcl 30 MG Capsule PO (10:51)
[2018-06-05] MEDS: Propofol 10MG/Ml 1,000 MG/100 ML Bottle 4.596 MG CONT INF ×2 (11:01→23:23)
[2018-06-05] MEDS: Acetaminophen 650 MG/20 ML UDC GT ×2 (11:03→17:52)
[2018-06-05 11:06] LABS: Bedside Glucose 285 mg/dL (70-110)
--- NOTE | 2018-06-05 11:27 | OP.ENDO_ITS ---
06/05/2018 Amber Hyatt Re : Upper GI endoscopy procedure for Preston Alexandra Edmar This procedure was performed on May. My impressions and recommendations are as follows: Impressions : - Normal esophagus. - Non-bleeding gastric ulcer with a clean ulcer base (Dario Class III). No specimens collected. - One non-bleeding duodenal ulcer with adherent clot. No specimens collected. Recommendations : - Return patient to ICU for ongoing care. - Clear liquid diet. - Continue present medications. - Repeat upper endoscopy in 3 months for surveillance. - Return to my office in 1 week. My findings are described in the full procedure note, which is enclosed. If I can be of further assistance, please feel free to contact me at Doctor phone number(s): , Fax: [phone], Work: . Sincerely, MD Francisco Javier Patel MD 06/05/2018 11:27:18 AM This report has been signed electronically.
--- NOTE | 2018-06-05 12:52 | NURSING ---
PT TO CT RM 2 WITH SUPERVISOR TITLE, DOM, CHIP WASHER X3, AND THIS RN. PT POSITIONED ON LT SIDE. DR VALADEZ SPOKE WITH PT'S SON, JORDEN, ON THE PHONE AND RECEIVED CONSENT, VERIFIED BY THIS RN. DR VALADEZ NOW REVIEWING SCANS. PT ON PROPROFOL AND FENTANYL GTTS. DR VALADEZ AWARE.
[2018-06-05 14:00] LABS: Hematocrit 23.7 % (40-54); Hemoglobin 7.6 g/dl (13.0-16.5)
[2018-06-05] MEDS: Sucralfate 1 GM Tablet GT ×2 (15:06→20:59)
[2018-06-05 17:26] LABS: Bedside Glucose 215 mg/dL (70-110)
[2018-06-05] MEDS: fentaNYL drip 100 ML 2.5 MCG IV (20:13)
[2018-06-05] MEDS: Atorvastatin Calcium 10 MG Tablet GT (20:54)
--- NOTE | 2018-06-05 21:05 | EKG12_ITS ---
Test Reason : AM EKG Blood Pressure : / mmHG Vent. Rate : 117 BPM Atrial Rate : 117 BPM P-R Int : 148 ms QRS Dur : 076 ms QT Int : 290 ms P-R-T Axes : -25 000 -68 degrees QTc Int : 404 ms Sinus tachycardia with occasional Premature ventricular complexes Nonspecific ST and T wave abnormality Abnormal ECG When compared with ECG of 02-JUN-2018 23:38, MANUAL COMPARISON REQUIRED, DATA IS UNCONFIRMED Confirmed by SUZIE BARRERA, ALON ([id number]), publications editor LOLA RODGERS ([id number]) on 06/06/2018 1:55:43 PM Referred By: Sally Cm Confirmed By:ALON LARSEN MD
[2018-06-05 23:45] LABS: Bedside Glucose 159 mg/dL (70-110)
[2018-06-06] VITALS (53 sets, daily range): BP systolic 90–120; BP diastolic 34–66; PULSE 83–132; RESP 14–35; TEMP 37.9–38.6; O2SAT 98–100
[2018-06-06] MEDS: dilTIAZem 30 MG Tablet NG ×2 (01:37→05:27)
[2018-06-06 04:49] LABS: Hematocrit 22.4 % (40-54); Hemoglobin 7.2 g/dl (13.0-16.5); Mean Corp Hgb Conc 32.1 g/gl (32-36); Mean Corpuscular Hgb 29.6 pg (27.0-32.0); Mean Corpuscular Volume 92.2 fL (80-94); Mean Platelet Vol. 12.1 fl (6.2-12.0); RBC Distribution Width CV 16.9 % (11.6-14.6); RBC Distribution Width SD 56.5 fl (35.1-43.9); Red Blood Count 2.43 M/mm3 (4.6-6.2)
[2018-06-06 05:06] LABS: Anion Gap 13 (5-15); BUN 115 mg/dL (7-18); BUN/Creat Ratio 52.5 RATIO (10-20); Calcium,Total 8.2 mg/dL (8.5-10.1); Chloride 117 mmol/L (98-107); Creatinine, Serum 2.19 mg/dL (0.70-1.30); EST Glomerular Filtration Rate 31 mL/min (>60); Est Glom Filt Rate - Afr Amer 38 mL/min (>60); Estimated Creatinine Clearance 25.09 ml/min; Glucose 208 mg/dL (74-106); Potassium 4.1 mmol/L (3.5-5.1); Sodium Level 148 mmol/L (136-145)
[2018-06-06 05:17] LABS: Lymphocyte 22 % (19-41); Monocyte 5 % (0-10); Myelocyte 4 (0-0); Neutrophil-Band 3 % (0-5); Neutrophil-Segmented 66 % (47-70); Total Cells Counted 100 (MANUAL DIFF)
[2018-06-06 05:18] LABS: Differential Indicated MANUAL DIFF; POSITIVE COUNT YES; POSITIVE DIFFERENTIAL NO; POSITIVE MORPHOLOGY YES; Platelet Count 28 K/mm3 (150-450)
[2018-06-06 05:20] LABS: Absolute Lymphocyte Count 2.85 X10^3/ul (0.83-4.51); Absolute Neutrophil Count 8.9 X10^3/uL (2.0-7.7)
[2018-06-06 05:23] LABS: Absolute Nucleated RBC Count 1.87 10^3/uL (0-5); NRBC Flagged by Analyzer 14.4 % (0-5)
[2018-06-06] MEDS: Insulin Lispro 100 UNIT/ML INSULN.PEN SC ×3 (05:26→17:05)
[2018-06-06] MEDS: Sucralfate 1 GM Tablet GT ×3 (05:27→21:50)
[2018-06-06 05:50] LABS: Bedside Glucose 161 mg/dL (70-110)
--- NOTE | 2018-06-06 06:44 | PCM.PN.INT ---
Subjective: The patient was seen and examined at the bedside this morning. Events from the last 24 hours have been reviewed. The patient remains febrile with a T-max overnight of 38.4 ?C. FiO2 requirement remains minimal at 30%. The patient did become tachypneic this morning with spontaneous breathing trial. He was subsequently transition back to assist control mode mechanical ventilation. Overnight, the patient was noted to have gone back into atrial fibrillation. He received an additional bolus of amiodarone and was started on scheduled Cardizem. The patient's hemoglobin is down to 7.2 g/dL this morning. His platelet count also fell to 28,000. In addition, the patient's creatinine has increased to 2.19 this morning. He remains uremic with a BUN of 115. The patient did undergo upper endoscopy on June 05, at which time, a nonbleeding gastric ulcer was identified along with a nonbleeding duodenal ulcer. The patient also underwent a percutaneous right-sided nephrostomy tube placement yesterday. Objective: The patient's most recent lab work, culture data and imaging studies have all been personally reviewed. Surface echocardiogram revealed normal LV size and function with an ejection fraction of 65% and stage I diastolic dysfunction. Pulmonary artery systolic pressure was estimated to be 40 mmHg. VQ scan completed on June 02 was noted to be a low quality VQ scan, but was reported to be most consistent with low probability for PE. CT chest dated June 02 revealed small bilateral pleural effusions without focal infiltrates. CT abdomen revealed bilateral hydronephrosis along with bilateral hydroureter. General: - - Remains intubated, sedated and mechanically ventilated. HEENT: Atraumatic, PERRLA, Normocephalic Oral: No Gingival or Mucosal Lesions/ Ulcerations, - - Endotracheal and OG tubes remain in place Neck: Supple, No Nodes, Trachea Midline Lungs: No rhonchi, No wheeze, No rales, Diminished Cardiovascular: Normal S1, Normal S2, Irregular Rate, Murmur, Tachycardic Abdomen: Bowel Sounds Present, Soft, Non Tender Extremities: No clubbing, No cyanosis, No edema Skin: - - No significant change from previous Musculoskeletal: No Tenderness to Palpation of Joints or Extremities Lymphatic: No Cervical, Supraclavicular, or Inguinal Adenopathy Neurological: - - No focal deficits. Currently sedated with a RASS of 0 to -1. Vital Signs Temp Pulse Resp BP Pulse Ox 38.2 C H 106 H 20 H 102/55 L 100 06/06/18 06:00 06/06/18 06:00 06/06/18 06:00 06/06/18 06:00 06/06/18 06:00 Oxygen Flow Rate (L/min) [4] 15 Oxygen Flow Rate (L/min) [3] 15 Oxygen Flow Rate (L/min) [2] 15 Oxygen Flow Rate (L/min) [1 ( 15 Initial Baseline)] Oxygen Flow Rate (L/min) 2 Oxygen Delivery Method [4] Ambu-Bag Oxygen Delivery Method [3] Ambu-Bag Oxygen Delivery Method [2] Ambu-Bag Oxygen Delivery Method [1 ( Ambu-Bag Initial Baseline)] Oxygen Delivery Method Mechanical Ventilator Weight: 172 lb 9.951 oz Body Mass Index (BMI) 27.1 Finger Stick Blood Glucose 95 Intake and Output for Last 24 Hours 06/04/18 06/05/18 06/06/18 23:59 23:59 23:59 Intake Total 4505 / 4505 1526 / 1526 531 / 531 Output Total 1550 / 1550 1600 / 1600 250 / 250 Balance 2955 / 2955 -74 / -74 281 / 281 Labs (Last 48 Hours) 06/04/18 06/04/18 06/04/18 03:30 09:55 11:39 WBC RBC Hgb Hct MCV MCH MCHC RDW RDW Differential Plt Count MPV Neut % (Auto) Absolute Neuts (auto) Absolute Lymphs (auto) Total Counted Neutrophils % (Manual) Band Neutrophils % Lymphocytes % (Manual) Monocytes % (Manual) Myelocytes % Nucleated RBC % Diff Path Review Reviewed Absolute Retic PT INR APTT 57.5 H Sodium Potassium Chloride Carbon Dioxide Anion Gap BUN Creatinine Estim Creat Clear Calc Est GFR (MDRD) Af Amer Est GFR (MDRD) Non-Af BUN/Creatinine Ratio Glucose Hemoglobin A1c Calcium Vancomycin Trough H. pylori IgG Antibody POC Glucose 394 H 06/04/18 06/04/18 06/04/18 15:00 15:00 17:10 WBC RBC Hgb 8.6 L Hct 26.3 L MCV MCH MCHC RDW RDW Differential Plt Count MPV Neut % (Auto) Absolute Neuts (auto) Absolute Lymphs (auto) Total Counted Neutrophils % (Manual) Band Neutrophils % Lymphocytes % (Manual) Monocytes % (Manual) Myelocytes % Nucleated RBC % Diff Path Review Absolute Retic PT INR APTT Sodium Potassium Chloride Carbon Dioxide Anion Gap BUN Creatinine Estim Creat Clear Calc Est GFR (MDRD) Af Amer Est GFR (MDRD) Non-Af BUN/Creatinine Ratio Glucose Hemoglobin A1c 6.2 Calcium Vancomycin Trough H. pylori IgG Antibody POC Glucose 329 H 06/04/18 06/05/18 06/05/18 23:21 02:00 03:55 WBC RBC Hgb Hct MCV MCH MCHC RDW RDW Differential Plt Count MPV Neut % (Auto) Absolute Neuts (auto) Absolute Lymphs (auto) Total Counted Neutrophils % (Manual) Band Neutrophils % Lymphocytes % (Manual) Monocytes % (Manual) Myelocytes % Nucleated RBC % Diff Path Review Absolute Retic PT INR APTT 32.6 Sodium Potassium Chloride Carbon Dioxide Anion Gap BUN Creatinine Estim Creat Clear Calc Est GFR (MDRD) Af Amer Est GFR (MDRD) Non-Af BUN/Creatinine Ratio Glucose Hemoglobin A1c Calcium Vancomycin Trough 11.8 H. pylori IgG Antibody POC Glucose 292 H 06/05/18 06/05/18 06/05/18 03:55 03:55 05:30 WBC RBC Hgb 7.8 L Hct 24.2 L MCV MCH MCHC RDW RDW Differential Plt Count MPV Neut % (Auto) Absolute Neuts (auto) Absolute Lymphs (auto) Total Counted Neutrophils % (Manual) Band Neutrophils % Lymphocytes % (Manual) Monocytes % (Manual) Myelocytes % Nucleated RBC % Diff Path Review Absolute Retic PT INR APTT Sodium 148 H Potassium 4.4 Chloride 116 H Carbon Dioxide 19.0 L Anion Gap 13 BUN 116 H* Creatinine 1.92 H Estim Creat Clear Calc 28.61 Est GFR (MDRD) Af Amer 44 L Est GFR (MDRD) Non-Af 36 L BUN/Creatinine Ratio 60.4 H Glucose 316 H Hemoglobin A1c Calcium 8.1 L Vancomycin Trough H. pylori IgG Antibody POC Glucose 266 H 06/05/18 06/05/18 06/05/18 10:30 11:00 11:45 WBC RBC Hgb Hct MCV MCH MCHC RDW RDW Differential Plt Count MPV Neut % (Auto) Absolute Neuts (auto) Absolute Lymphs (auto) Total Counted Neutrophils % (Manual) Band Neutrophils % Lymphocytes % (Manual) Monocytes % (Manual) Myelocytes % Nucleated RBC % Diff Path Review Absolute Retic PT 19.9 H INR 1.7 APTT Sodium Potassium Chloride Carbon Dioxide Anion Gap BUN Creatinine Estim Creat Clear Calc Est GFR (MDRD) Af Amer Est GFR (MDRD) Non-Af BUN/Creatinine Ratio Glucose Hemoglobin A1c Calcium Vancomycin Trough H. pylori IgG Antibody Pending POC Glucose 285 H 06/05/18 06/05/18 06/05/18 13:55 17:06 23:21 WBC RBC Hgb 7.6 L Hct 23.7 L MCV MCH MCHC RDW RDW Differential Plt Count MPV Neut % (Auto) Absolute Neuts (auto) Absolute Lymphs (auto) Total Counted Neutrophils % (Manual) Band Neutrophils % Lymphocytes % (Manual) Monocytes % (Manual) Myelocytes % Nucleated RBC % Diff Path Review Absolute Retic PT INR APTT Sodium Potassium Chloride Carbon Dioxide Anion Gap BUN Creatinine Estim Creat Clear Calc Est GFR (MDRD) Af Amer Est GFR (MDRD) Non-Af BUN/Creatinine Ratio Glucose Hemoglobin A1c Calcium Vancomycin Trough H. pylori IgG Antibody POC Glucose 215 H 159 H 06/06/18 06/06/18 06/06/18 04:25 04:25 05:24 WBC 13.0 H RBC 2.43 L Hgb 7.2 L Hct 22.4 L MCV 92.2 MCH 29.6 MCHC 32.1 RDW 16.9 H RDW Differential 56.5 H Plt Count 28 L* MPV 12.1 H Neut % (Auto) Not Reportable Absolute Neuts (auto) 8.9 H Absolute Lymphs (auto) 2.85 Total Counted 100 Neutrophils % (Manual) 66 Band Neutrophils % 3 Lymphocytes % (Manual) 22 Monocytes % (Manual) 5 Myelocytes % 4 H Nucleated RBC % 14.4 H Diff Path Review May foll Absolute Retic 1.87 PT INR APTT Sodium 148 H Potassium 4.1 Chloride 117 H Carbon Dioxide 18.0 L Anion Gap 13 BUN 115 H* Creatinine 2.19 H Estim Creat Clear Calc 25.09 Est GFR (MDRD) Af Amer 38 L Est GFR (MDRD) Non-Af 31 L BUN/Creatinine Ratio 52.5 H Glucose 208 H Hemoglobin A1c Calcium 8.2 L Vancomycin Trough H. pylori IgG Antibody POC Glucose 161 H Microbiology 06/03/18 14:55 Blood Culture (Wb) - Left Wrist Blood Culture - Preliminary No growth in 48 hours. 06/03/18 15:05 Blood Culture (Wb) - Anticubital Right Blood Culture - Preliminary No growth in 48 hours. 06/03/18 15:20 Urine Catheter - [place] Urine Culture - Preliminary GPC Poss Enterococcus sp 06/02/18 22:30 Sputum, Expectorated/Coughed Gram Stain - Final 06/02/18 22:30 Sputum, Expectorated/Coughed Respiratory Culture - Final Mixed normal respiratory betty. No Streptococcus pneumoniae, beta-hemolytic Streptococcus or Staphylococcus aureus isolated. 06/02/18 01:55 Urine, Clean Catch Urine Culture - Final GPC Poss Enterococcus sp 06/02/18 01:10 Blood Culture (Wb) - Right Forearm Blood Culture - Preliminary No growth in 48 hours. 06/02/18 01:24 Blood Culture (Wb) - Anticubital Left Blood Culture - Preliminary No growth in 48 hours. Clinical Impression(s) from Imaging Studies Brain CT 06/02/18 01:25 IMPRESSION: No acute findings. Individualized dose optimization techniques were used for this CT. at 0159 Reported and signed by: Geoff Joaquin MD Electronically Signed: Geoff Joaquin, at 1:58 EST Tel , Service support , Cervical Spine CT 06/02/18 01:25 IMPRESSION: No fracture or dislocation of the cervical spine. Individualized dose optimization techniques were used for this CT. at 0206 Reported and signed by: Geoff Joaquin MD Electronically Signed: Geoff Joaquin, at 2:05 EST Tel , Service support , Chest X-Ray 06/02/18 01:35 IMPRESSION: Low lung volumes with resultant hypoventilatory changes. No definite pneumonia or edema. Interval sternotomy probably for heart valve replacement. at 0154 Reported and signed by: Geoff Joaquin MD Electronically Signed: Geoff Joaquin, at 1:53 EST Tel , Service support , Lung Scan-VQ NM 06/02/18 13:55 IMPRESSION: Low quality VQ scan, most consistent with low probability of pulmonary embolism. Electronically Signed: Kenny Greene MD at 16:31 EST , Service support , Chest X-Ray 06/02/18 14:28 IMPRESSION: Moderate right pleural effusion with overlying atelectasis. Electronically Signed: Juan Ruiz, at 15:40 EST Tel , Service support , Chest CT 06/02/18 21:14 IMPRESSION: Small bilateral pleural effusions with overlying atelectasis. Sclerotic osseous lesions which are suspicious for metastasis. Electronically Signed: Juan Ruiz, at 22:14 EST Tel , Service support , Chest X-Ray 06/02/18 22:26 IMPRESSION: Mild left basilar atelectasis status post endotracheal tube placement Electronically Signed: Norbert Snyder MD at 23:18 EST , Service support , Abdomen CT 06/04/18 12:33 IMPRESSION: Bilateral hydronephrosis right greater than left with bilateral hydroureter. Diffusely thickened bladder wall. Electronically Signed: Javier Unger, at 15:28 EST , Service support , Nephrostomy Tube Change 06/05/18 07:41 IMPRESSION: 1. The percutaneous right nephrostomy catheter is in good position with the pigtail portion located in the right renal pelvis. 2. The conscious sedation protocol was followed. Electronically Signed: Javier Unger, at 14:33 EST , Service support , Medical Necessity - Tobacco Use Smoking Status: Former smoker Assessment/Plan All Active Problems (Last Reviewed 06/05/18 @ 07:40 by Dangelo Alvarado MD) Atrial fibrillation and flutter (Acute) Fever (Acute) Anemia (Acute) Thrombocytopenia (Acute) Bilateral hydronephrosis (Acute) RECOMMENDATIONS: 1. Transfuse 2 units of packed red blood cells, along with platelets. Check CBC posttransfusion 2. Continue medical management of atrial fibrillation per cardiology recommendations. 3. Restart tube feeds today. 4. Continue twice daily PPI therapy 5. Continue antibiotics per ID recommendations. 6. If no improvement, consider transesophageal echocardiogram IMPRESSIONS: 1. Acute hypoxemic respiratory failure The exact etiology for the patient's clinical decompensation is unclear. However, the patient was noted to be tachycardic at the time when he was initially beginning to decompensate. It is unclear whether this was atrial fibrillation or a sinus tachycardia. Given that the patient has paroxysmal atrial fibrillation and underlying valvular heart disease, it is possible that his decompensation may have been heart rate related. In addition, increased metabolic demands from the patient's sepsis and fevers also likely contributed. He is chronically anticoagulated with Eliquis on an outpatient basis. The patient's CT chest only revealed evidence of small bilateral pleural effusions without focal infiltrates. His FiO2 was able to be quickly weaned. We will plan to continue daily paired spontaneous awakening and breathing trials. 2. Severe sepsis with evidence of bilateral hydronephrosis/hydroureter The patient appears to be septic from a urinary source of infection. CT abdomen did reveal evidence of bilateral hydronephrosis, for which the patient underwent a percutaneous nephrostomy tube placement on June 05. Antibiotics will be continued per infectious diseases recommendations. 3. Paroxysmal atrial fibrillation with RVR/history of aortic valve replacement Cardiology following to assist with management. The patient is currently on both amiodarone and Cardizem. 4. Anemia secondary to upper GI bleed/thrombocytopenia The patient does have known normocytic anemia, which appears to have worsened over the course of this hospital stay. The patient did require eventual transfusion of packed red blood cells. Upper endoscopy performed at the bedside did reveal evidence of GI ulcers. However, there was no active bleeding. This will require the permanent discontinuation of the patient's systemic anticoagulation. He will be continued on twice daily PPI therapy and monitored for any ongoing blood loss. Given the patient's anemia this morning, he will be transfused 2 units of packed red blood cells. In addition, given his worsening thrombocytopenia he will also be transfused platelets. 5. Metastatic prostate cancer/anemia/chronic kidney disease/hypertension/hyperlipidemia/depression/generalized deconditioning and debility Complicates care, management, recovery and prognosis. Likely okay to continue home medications. Physical therapy to once again work with patient once medically stabilized. Recommend formal goals of care discussion with the patient and his family. TIME: 40 minutes of critical care time, independent of procedures, was spent addressing the patient's acute hypoxemic respiratory failure, severe sepsis, paroxysmal atrial fibrillation with a rapid ventricular rate, metastatic prostate cancer, anemia, upper gastrointestinal bleed, review of all data and collaboration with the care team. ([id number]) Code Visit 9xxxx: [id number] Critical care first hour
--- NOTE | 2018-06-06 06:48 | PN_ITS ---
Subjective: The patient was seen and examined at the bedside this morning. Events from the last 24 hours have been reviewed. The patient remains febrile with a T-max overnight of 38.4 ?C. FiO2 requirement remains minimal at 30%. The patient did become tachypneic this morning with spontaneous breathing trial. He was subsequently transition back to assist control mode mechanical ventilation. Overnight, the patient was noted to have gone back into atrial fibrillation. He received an additional bolus of amiodarone and was started on scheduled Cardizem. The patient's hemoglobin is down to 7.2 g/dL this morning. His platelet count also fell to 28,000. In addition, the patient's creatinine has increased to 2.19 this morning. He remains uremic with a BUN of 115. The patient did undergo upper endoscopy on June 05, at which time, a nonbleeding gastric ulcer was identified along with a nonbleeding duodenal ulcer. The patient also underwent a percutaneous right-sided nephrostomy tube placement yesterday. Objective: The patient's most recent lab work, culture data and imaging studies have all been personally reviewed. Surface echocardiogram revealed normal LV size and function with an ejection fraction of 65% and stage I diastolic dysfunction. Pulmonary artery systolic pressure was estimated to be 40 mmHg. VQ scan completed on June 02 was noted to be a low quality VQ scan, but was reported to be most consistent with low probability for PE. CT chest dated June 02 revealed small bilateral pleural effusions without focal infiltrates. CT abdomen revealed bilateral hydronephrosis along with bilateral hydroureter. General: - - Remains intubated, sedated and mechanically ventilated. HEENT: Atraumatic, PERRLA, Normocephalic Oral: No Gingival or Mucosal Lesions/ Ulcerations, - - Endotracheal and OG tubes remain in place Neck: Supple, No Nodes, Trachea Midline Lungs: No rhonchi, No wheeze, No rales, Diminished Cardiovascular: Normal S1, Normal S2, Irregular Rate, Murmur, Tachycardic Abdomen: Bowel Sounds Present, Soft, Non Tender Extremities: No clubbing, No cyanosis, No edema Skin: - - No significant change from previous Musculoskeletal: No Tenderness to Palpation of Joints or Extremities Lymphatic: No Cervical, Supraclavicular, or Inguinal Adenopathy Neurological: - - No focal deficits. Currently sedated with a RASS of 0 to -1. Vital Signs Temp Pulse Resp BP Pulse Ox 38.2 C H 106 H 20 H 102/55 L 100 06/06/18 06:00 06/06/18 06:00 06/06/18 06:00 06/06/18 06:00 06/06/18 06:00 Oxygen Flow Rate (L/min) [4] 15 Oxygen Flow Rate (L/min) [3] 15 Oxygen Flow Rate (L/min) [2] 15 Oxygen Flow Rate (L/min) [1 ( 15 Initial Baseline)] Oxygen Flow Rate (L/min) 2 Oxygen Delivery Method [4] Ambu-Bag Oxygen Delivery Method [3] Ambu-Bag Oxygen Delivery Method [2] Ambu-Bag Oxygen Delivery Method [1 ( Ambu-Bag Initial Baseline)] Oxygen Delivery Method Mechanical Ventilator Weight: 172 lb 9.951 oz Body Mass Index (BMI) 27.1 Finger Stick Blood Glucose 95 Intake and Output for Last 24 Hours 06/04/18 06/05/18 06/06/18 23:59 23:59 23:59 Intake Total 4505 / 4505 1526 / 1526 531 / 531 Output Total 1550 / 1550 1600 / 1600 250 / 250 Balance 2955 / 2955 -74 / -74 281 / 281 Labs (Last 48 Hours) 06/04/18 06/04/18 06/04/18 03:30 09:55 11:39 WBC RBC Hgb Hct MCV MCH MCHC RDW RDW Differential Plt Count MPV Neut % (Auto) Absolute Neuts (auto) Absolute Lymphs (auto) Total Counted Neutrophils % (Manual) Band Neutrophils % Lymphocytes % (Manual) Monocytes % (Manual) Myelocytes % Nucleated RBC % Diff Path Review Reviewed Absolute Retic PT INR APTT 57.5 H Sodium Potassium Chloride Carbon Dioxide Anion Gap BUN Creatinine Estim Creat Clear Calc Est GFR (MDRD) Af Amer Est GFR (MDRD) Non-Af BUN/Creatinine Ratio Glucose Hemoglobin A1c Calcium Vancomycin Trough H. pylori IgG Antibody POC Glucose 394 H 06/04/18 06/04/18 06/04/18 15:00 15:00 17:10 WBC RBC Hgb 8.6 L Hct 26.3 L MCV MCH MCHC RDW RDW Differential Plt Count MPV Neut % (Auto) Absolute Neuts (auto) Absolute Lymphs (auto) Total Counted Neutrophils % (Manual) Band Neutrophils % Lymphocytes % (Manual) Monocytes % (Manual) Myelocytes % Nucleated RBC % Diff Path Review Absolute Retic PT INR APTT Sodium Potassium Chloride Carbon Dioxide Anion Gap BUN Creatinine Estim Creat Clear Calc Est GFR (MDRD) Af Amer Est GFR (MDRD) Non-Af BUN/Creatinine Ratio Glucose Hemoglobin A1c 6.2 Calcium Vancomycin Trough H. pylori IgG Antibody POC Glucose 329 H 06/04/18 06/05/18 06/05/18 23:21 02:00 03:55 WBC RBC Hgb Hct MCV MCH MCHC RDW RDW Differential Plt Count MPV Neut % (Auto) Absolute Neuts (auto) Absolute Lymphs (auto) Total Counted Neutrophils % (Manual) Band Neutrophils % Lymphocytes % (Manual) Monocytes % (Manual) Myelocytes % Nucleated RBC % Diff Path Review Absolute Retic PT INR APTT 32.6 Sodium Potassium Chloride Carbon Dioxide Anion Gap BUN Creatinine Estim Creat Clear Calc Est GFR (MDRD) Af Amer Est GFR (MDRD) Non-Af BUN/Creatinine Ratio Glucose Hemoglobin A1c Calcium Vancomycin Trough 11.8 H. pylori IgG Antibody POC Glucose 292 H 06/05/18 06/05/18 06/05/18 03:55 03:55 05:30 WBC RBC Hgb 7.8 L Hct 24.2 L MCV MCH MCHC RDW RDW Differential Plt Count MPV Neut % (Auto) Absolute Neuts (auto) Absolute Lymphs (auto) Total Counted Neutrophils % (Manual) Band Neutrophils % Lymphocytes % (Manual) Monocytes % (Manual) Myelocytes % Nucleated RBC % Diff Path Review Absolute Retic PT INR APTT Sodium 148 H Potassium 4.4 Chloride 116 H Carbon Dioxide 19.0 L Anion Gap 13 BUN 116 H* Creatinine 1.92 H Estim Creat Clear Calc 28.61 Est GFR (MDRD) Af Amer 44 L Est GFR (MDRD) Non-Af 36 L BUN/Creatinine Ratio 60.4 H Glucose 316 H Hemoglobin A1c Calcium 8.1 L Vancomycin Trough H. pylori IgG Antibody POC Glucose 266 H 06/05/18 06/05/18 06/05/18 10:30 11:00 11:45 WBC RBC Hgb Hct MCV MCH MCHC RDW RDW Differential Plt Count MPV Neut % (Auto) Absolute Neuts (auto) Absolute Lymphs (auto) Total Counted Neutrophils % (Manual) Band Neutrophils % Lymphocytes % (Manual) Monocytes % (Manual) Myelocytes % Nucleated RBC % Diff Path Review Absolute Retic PT 19.9 H INR 1.7 APTT Sodium Potassium Chloride Carbon Dioxide Anion Gap BUN Creatinine Estim Creat Clear Calc Est GFR (MDRD) Af Amer Est GFR (MDRD) Non-Af BUN/Creatinine Ratio Glucose Hemoglobin A1c Calcium Vancomycin Trough H. pylori IgG Antibody Pending POC Glucose 285 H 06/05/18 06/05/18 06/05/18 13:55 17:06 23:21 WBC RBC Hgb 7.6 L Hct 23.7 L MCV MCH MCHC RDW RDW Differential Plt Count MPV Neut % (Auto) Absolute Neuts (auto) Absolute Lymphs (auto) Total Counted Neutrophils % (Manual) Band Neutrophils % Lymphocytes % (Manual) Monocytes % (Manual) Myelocytes % Nucleated RBC % Diff Path Review Absolute Retic PT INR APTT Sodium Potassium Chloride Carbon Dioxide Anion Gap BUN Creatinine Estim Creat Clear Calc Est GFR (MDRD) Af Amer Est GFR (MDRD) Non-Af BUN/Creatinine Ratio Glucose Hemoglobin A1c Calcium Vancomycin Trough H. pylori IgG Antibody POC Glucose 215 H 159 H 06/06/18 06/06/18 06/06/18 04:25 04:25 05:24 WBC 13.0 H RBC 2.43 L Hgb 7.2 L Hct 22.4 L MCV 92.2 MCH 29.6 MCHC 32.1 RDW 16.9 H RDW Differential 56.5 H Plt Count 28 L* MPV 12.1 H Neut % (Auto) Not Reportable Absolute Neuts (auto) 8.9 H Absolute Lymphs (auto) 2.85 Total Counted 100 Neutrophils % (Manual) 66 Band Neutrophils % 3 Lymphocytes % (Manual) 22 Monocytes % (Manual) 5 Myelocytes % 4 H Nucleated RBC % 14.4 H Diff Path Review May foll Absolute Retic 1.87 PT INR APTT Sodium 148 H Potassium 4.1 Chloride 117 H Carbon Dioxide 18.0 L Anion Gap 13 BUN 115 H* Creatinine 2.19 H Estim Creat Clear Calc 25.09 Est GFR (MDRD) Af Amer 38 L Est GFR (MDRD) Non-Af 31 L BUN/Creatinine Ratio 52.5 H Glucose 208 H Hemoglobin A1c Calcium 8.2 L Vancomycin Trough H. pylori IgG Antibody POC Glucose 161 H Microbiology 06/03/18 14:55 Blood Culture (Wb) - Left Wrist Blood Culture - Preliminary No growth in 48 hours. 06/03/18 15:05 Blood Culture (Wb) - Anticubital Right Blood Culture - Preliminary No growth in 48 hours. 06/03/18 15:20 Urine Catheter - [place] Urine Culture - Preliminary GPC Poss Enterococcus sp 06/02/18 22:30 Sputum, Expectorated/Coughed Gram Stain - Final 06/02/18 22:30 Sputum, Expectorated/Coughed Respiratory Culture - Final Mixed normal respiratory betty. No Streptococcus pneumoniae, beta-hemolytic Streptococcus or Staphylococcus aureus isolated. 06/02/18 01:55 Urine, Clean Catch Urine Culture - Final GPC Poss Enterococcus sp 06/02/18 01:10 Blood Culture (Wb) - Right Forearm Blood Culture - Preliminary No growth in 48 hours. 06/02/18 01:24 Blood Culture (Wb) - Anticubital Left Blood Culture - Preliminary No growth in 48 hours. Clinical Impression(s) from Imaging Studies Brain CT 06/02/18 01:25 IMPRESSION: No acute findings. Individualized dose optimization techniques were used for this CT. at 0159 Reported and signed by: Geoff Joaquin MD Electronically Signed: Geoff Joaquin, at 1:58 EST Tel , Service support , Cervical Spine CT 06/02/18 01:25 IMPRESSION: No fracture or dislocation of the cervical spine. Individualized dose optimization techniques were used for this CT. at 0206 Reported and signed by: Geoff Joaquin MD Electronically Signed: Geoff Joaquin, at 2:05 EST Tel , Service support , Chest X-Ray 06/02/18 01:35 IMPRESSION: Low lung volumes with resultant hypoventilatory changes. No definite pneumonia or edema. Interval sternotomy probably for heart valve replacement. at 0154 Reported and signed by: Geoff Joaquin MD Electronically Signed: Geoff Joaquin, at 1:53 EST Tel , Service support , Lung Scan-VQ NM 06/02/18 13:55 IMPRESSION: Low quality VQ scan, most consistent with low probability of pulmonary embolism. Electronically Signed: Kenny Greene MD at 16:31 EST , Service support , Chest X-Ray 06/02/18 14:28 IMPRESSION: Moderate right pleural effusion with overlying atelectasis. Electronically Signed: Juan Ruiz, at 15:40 EST Tel , Service support , Chest CT 06/02/18 21:14 IMPRESSION: Small bilateral pleural effusions with overlying atelectasis. Sclerotic osseous lesions which are suspicious for metastasis. Electronically Signed: Juan Ruiz, at 22:14 EST Tel , Service support , Chest X-Ray 06/02/18 22:26 IMPRESSION: Mild left basilar atelectasis status post endotracheal tube placement Electronically Signed: Norbert Snyder MD at 23:18 EST , Service support , Abdomen CT 06/04/18 12:33 IMPRESSION: Bilateral hydronephrosis right greater than left with bilateral hydroureter. Diffusely thickened bladder wall. Electronically Signed: Javier Unger, at 15:28 EST , Service support , Nephrostomy Tube Change 06/05/18 07:41 IMPRESSION: 1. The percutaneous right nephrostomy catheter is in good position with the pigtail portion located in the right renal pelvis. 2. The conscious sedation protocol was followed. Electronically Signed: Javier Unger, at 14:33 EST , Service support , Medical Necessity - Tobacco Use Smoking Status: Former smoker Assessment/Plan All Active Problems (Last Reviewed 06/05/18 @ 07:40 by Dangelo Alvarado MD) Atrial fibrillation and flutter (Acute) Fever (Acute) Anemia (Acute) Thrombocytopenia (Acute) Bilateral hydronephrosis (Acute) RECOMMENDATIONS: 1. Transfuse 2 units of packed red blood cells, along with platelets. Check CBC posttransfusion 2. Continue medical management of atrial fibrillation per cardiology recommendations. 3. Restart tube feeds today. 4. Continue twice daily PPI therapy 5. Continue antibiotics per ID recommendations. 6. If no improvement, consider transesophageal echocardiogram IMPRESSIONS: 1. Acute hypoxemic respiratory failure The exact etiology for the patient's clinical decompensation is unclear. However, the patient was noted to be tachycardic at the time when he was initially beginning to decompensate. It is unclear whether this was atrial fibrillation or a sinus tachycardia. Given that the patient has paroxysmal atrial fibrillation and underlying valvular heart disease, it is possible that his decompensation may have been heart rate related. In addition, increased metabolic demands from the patient's sepsis and fevers also likely contributed. He is chronically anticoagulated with Eliquis on an outpatient basis. The patient's CT chest only revealed evidence of small bilateral pleural effusions without focal infiltrates. His FiO2 was able to be quickly weaned. We will plan to continue daily paired spontaneous awakening and breathing trials. 2. Severe sepsis with evidence of bilateral hydronephrosis/hydroureter The patient appears to be septic from a urinary source of infection. CT abdomen did reveal evidence of bilateral hydronephrosis, for which the patient underwent a percutaneous nephrostomy tube placement on June 05. Antibiotics will be continued per infectious diseases recommendations. 3. Paroxysmal atrial fibrillation with RVR/history of aortic valve replacement Cardiology following to assist with management. The patient is currently on both amiodarone and Cardizem. 4. Anemia secondary to upper GI bleed/thrombocytopenia The patient does have known normocytic anemia, which appears to have worsened over the course of this hospital stay. The patient did require eventual transfusion of packed red blood cells. Upper endoscopy performed at the bedside did reveal evidence of GI ulcers. However, there was no active bleeding. This will require the permanent discontinuation of the patient's systemic anticoagulation. He will be continued on twice daily PPI therapy and monitored for any ongoing blood loss. Given the patient's anemia this morning, he will be transfused 2 units of packed red blood cells. In addition, given his worsening thrombocytopenia he will also be transfused platelets. 5. Metastatic prostate cancer/anemia/chronic kidney disease/hypertension/hyperlipidemia/depression/generalized deconditioning and debility Complicates care, management, recovery and prognosis. Likely okay to continue home medications. Physical therapy to once again work with patient once medically stabilized. Recommend formal goals of care discussion with the patient and his family. TIME: 40 minutes of critical care time, independent of procedures, was spent addressing the patient's acute hypoxemic respiratory failure, severe sepsis, paroxysmal atrial fibrillation with a rapid ventricular rate, metastatic prostate cancer, anemia, upper gastrointestinal bleed, review of all data and collaboration with the care team. ([id number]) Code Visit 9xxxx: [id number] Critical care first hour
--- NOTE | 2018-06-06 07:29 | PCM.PN.SRG ---
Patient Problems: Active and Suspected Problems (Last Reviewed 06/05/18 @ 07:40 by Dangelo Alvarado MD) Atrial fibrillation and flutter (Acute) Fever (Acute) Anemia (Acute) Thrombocytopenia (Acute) Bilateral hydronephrosis (Acute) Subjective: Patient remains on the ventilator. Hemoglobin and platelets both are drifting down. Patient has had no bloody bowel movements as of yet. Yesterday underwent a EGD where he was noted to have a ulcer of the duodenum with an adherent clot on it. As well as a prepyloric gastric ulcer. Nothing appeared to be actively bleeding at this time. Objective: Abdomen is soft - Physical Exam Vital Signs Temp Pulse Resp BP Pulse Ox 100.8 F H 108 H 21 H 109/43 L 100 06/06/18 06:00 06/06/18 07:25 06/06/18 07:00 06/06/18 07:00 06/06/18 07:00 Oxygen Flow Rate (L/min) [4] 15 Oxygen Flow Rate (L/min) [3] 15 Oxygen Flow Rate (L/min) [2] 15 Oxygen Flow Rate (L/min) [1 ( 15 Initial Baseline)] Oxygen Flow Rate (L/min) 2 Oxygen Delivery Method [4] Ambu-Bag Oxygen Delivery Method [3] Ambu-Bag Oxygen Delivery Method [2] Ambu-Bag Oxygen Delivery Method [1 ( Ambu-Bag Initial Baseline)] Oxygen Delivery Method Mechanical Ventilator Weight: 172 lb 9.951 oz Body Mass Index (BMI) 27.1 Finger Stick Blood Glucose 95 Intake and Output for Last 24 Hours 06/04/18 06/05/18 06/06/18 23:59 23:59 23:59 Intake Total 4505 / 4505 1526 / 1526 531 / 531 Output Total 1550 / 1550 1600 / 1600 250 / 250 Balance 2955 / 2955 -74 / -74 281 / 281 Microbiology Past 72 Hours 06/03/18 14:55 Blood Culture - Preliminary Blood Culture (Wb) - Left Wrist No growth in 48 hours. 06/03/18 15:05 Blood Culture - Preliminary Blood Culture (Wb) - Anticubital Right No growth in 48 hours. 06/03/18 15:20 Urine Culture - Preliminary Urine Catheter - [place] GPC Poss Enterococcus sp 06/02/18 22:30 Gram Stain - Final Sputum, Expectorated/Coughed Respiratory Culture - Final Mixed normal respiratory betty. No Streptococcus pneumoniae, beta-hemolytic Streptococcus or Staphylococcus aureus isolated. 06/02/18 01:55 Urine Culture - Final Urine, Clean Catch GPC Poss Enterococcus sp 06/02/18 01:10 Blood Culture - Preliminary Blood Culture (Wb) - Right Forearm No growth in 48 hours. 06/02/18 01:24 Blood Culture - Preliminary Blood Culture (Wb) - Anticubital Left No growth in 48 hours. 06/02/18 22:30 Respiratory Panel (PCR) - Final Mucosa - Nose Laboratory Tests Past 24 Hrs 06/05/18 06/05/18 06/05/18 10:30 11:45 13:55 WBC RBC Hgb 7.6 L Hct 23.7 L MCV MCH MCHC RDW RDW Differential Plt Count MPV Neut % (Auto) Absolute Neuts (auto) Absolute Lymphs (auto) Total Counted Neutrophils % (Manual) Band Neutrophils % Lymphocytes % (Manual) Monocytes % (Manual) Myelocytes % Nucleated RBC % Diff Path Review Absolute Retic PT 19.9 H INR 1.7 Sodium Potassium Chloride Carbon Dioxide Anion Gap BUN Creatinine Estim Creat Clear Calc Est GFR (MDRD) Af Amer Est GFR (MDRD) Non-Af BUN/Creatinine Ratio Glucose Calcium H. pylori IgG Antibody Pending Blood Type Antibody Screen Crossmatch 06/06/18 06/06/18 06/06/18 04:25 04:25 07:15 WBC 13.0 H RBC 2.43 L Hgb 7.2 L Hct 22.4 L MCV 92.2 MCH 29.6 MCHC 32.1 RDW 16.9 H RDW Differential 56.5 H Plt Count 28 L* MPV 12.1 H Neut % (Auto) Not Reportable Absolute Neuts (auto) 8.9 H Absolute Lymphs (auto) 2.85 Total Counted 100 Neutrophils % (Manual) 66 Band Neutrophils % 3 Lymphocytes % (Manual) 22 Monocytes % (Manual) 5 Myelocytes % 4 H Nucleated RBC % 14.4 H Diff Path Review May foll Absolute Retic 1.87 PT INR Sodium 148 H Potassium 4.1 Chloride 117 H Carbon Dioxide 18.0 L Anion Gap 13 BUN 115 H* Creatinine 2.19 H Estim Creat Clear Calc 25.09 Est GFR (MDRD) Af Amer 38 L Est GFR (MDRD) Non-Af 31 L BUN/Creatinine Ratio 52.5 H Glucose 208 H Calcium 8.2 L H. pylori IgG Antibody Blood Type Pending Antibody Screen Pending Crossmatch See Detail POC Glucose 06/06/18 06/05/18 06/05/18 05:24 23:21 17:06 POC Glucose 161 H 159 H 215 H 06/05/18 11:00 POC Glucose 285 H Medical Necessity - Tobacco Use Smoking Status: Former smoker Assessment/Plan All Active Problems (Last Reviewed 06/05/18 @ 07:40 by Dangelo Alvarado MD) Atrial fibrillation and flutter (Acute) Fever (Acute) Anemia (Acute) Thrombocytopenia (Acute) Bilateral hydronephrosis (Acute) Have discussed with Dr. Nicholson will transfuse as well as give platelets to the patient. I will be leaving town will be taking over care.
--- NOTE | 2018-06-06 07:34 | PN.CARD_ITS ---
Subjectve: Patient seen and evaluated. Objective: Vital Signs Temp Pulse Resp BP Pulse Ox 100.8 F H 108 H 21 H 109/43 L 100 06/06/18 06:00 06/06/18 07:25 06/06/18 07:00 06/06/18 07:00 06/06/18 07:00 Oxygen Flow Rate (L/min) [4] 15 Oxygen Flow Rate (L/min) [3] 15 Oxygen Flow Rate (L/min) [2] 15 Oxygen Flow Rate (L/min) [1 ( 15 Initial Baseline)] Oxygen Flow Rate (L/min) 2 Oxygen Delivery Method [4] Ambu-Bag Oxygen Delivery Method [3] Ambu-Bag Oxygen Delivery Method [2] Ambu-Bag Oxygen Delivery Method [1 ( Ambu-Bag Initial Baseline)] Oxygen Delivery Method Mechanical Ventilator Weight: 172 lb 9.951 oz Body Mass Index (BMI) 27.1 Finger Stick Blood Glucose 95 Intake and Output for Last 24 Hours 06/04/18 06/05/18 06/06/18 23:59 23:59 23:59 Intake Total 4505 / 4505 1526 / 1526 531 / 531 Output Total 1550 / 1550 1600 / 1600 250 / 250 Balance 2955 / 2955 -74 / -74 281 / 281 General: Awake, Alert, Oriented x 3, Ill Appearing HEENT: PERRL, EOMI, Sclera Non Icteric Neck: Supple, Good ROM, No Lymph Node Enlargement Lungs: Clear to auscultation Cardiovascular: Irregular Rhythm, Normal S1, Normal S2, No Murmurs, No Rubs, No Gallops Vascular: No Carotid Bruits, Normal Femoral Pulses, Normal Radial Pulses, Normal Dorsalis Pedal Pulse, Normal Posterior Tibial Pulses Abdomen: Bowel Sounds Present, Soft, Non Tender, No HSM, No Organomegaly Extremities: No Cyanosis, No Clubbing, No edema Neurological: No Focal Motor or Sensory Deficit 06/05/18 10:30: PT 19.9 H, INR 1.7 06/05/18 13:55: Hgb 7.6 L, Hct 23.7 L 06/06/18 04:25: WBC 13.0 H, RBC 2.43 L, Hgb 7.2 L, Hct 22.4 L, MCV 92.2, MCH 29.6, MCHC 32.1, RDW 16.9 H, RDW Differential 56.5 H, Plt Count 28 L*, MPV 12.1 H, Neut % (Auto) Not Reportable, Absolute Neuts (auto) 8.9 H, Total Counted 100, Neutrophils % (Manual) 66, Band Neutrophils % 3, Lymphocytes % (Manual) 22, Mo nocytes % (Manual) 5, Myelocytes % 4 H, Nucleated RBC % 14.4 H 06/06/18 04:25: Sodium 148 H, Potassium 4.1, Chloride 117 H, Carbon Dioxide 18.0 L, Anion Gap 13, BUN 115 H*, Creatinine 2.19 H, Est GFR (MDRD) Af Amer 38 L, Est GFR (MDRD) Non-Af 31 L, BUN/Creatinine Ratio 52.5 H, Glucose 208 H, Calcium 8.2 L Rhythm: EKG: ECHO: Stress Test: Cardiac Cath: PCI: CT Surgery: Holter monitor: EPS: PPM: CXR: Chest CT Scan: Medical Necessity - Tobacco Use Smoking Status: Former smoker Assessment/Plan 1. Atrial fibrillation/flutter The patient has demonstrated evidence of atrial fibrillation/flutter. He reverted back to atrial fibrillation. Continue to follow him in the ICU. He will continue on the intravenous amiodarone at this time. He will be started on intravenous diltiazem. 2. Status post aortic valve replacement: Bioprosthetic He does have an underlying bioprosthetic aortic valve. There was no comment on any concerns with respect to his transthoracic echocardiogram. However, based upon his underlying clinical scenario with his fevers, concerns of a possible sepsis type syndrome, and if no definitive etiology for his infectious related events, he may need to be considered for further evaluation of his aortic valve for the possibility of infectious endocarditis with a transthoracic echocardiogram. Transthoracic echocardiogram did not necessarily demonstrate any evidence of endocarditis however. 3. Hyperlipidemia He can continue medical management as deemed appropriate and tolerated. 4. Hypertension At the present time his blood pressure is good. He has rate limiting medications that may affect blood pressure adversely are on hold. Any other antihypertensive type agents are on hold. Depending upon his course he may need vasopressor agents to support his blood pressure. 5. Renal insufficiency He does have a history of renal insufficiency. It may be exacerbated if he is truly intravascularly depleted based upon his situation at home being found daniel n, lethargic, and with altered mental status. He will continue to receive IV fluids as deemed appropriate by the ICU staff. His renal function will be followed. 6. Anemia He is anemic. Etiology is secondary to his prepyloric ulcer. Thank you for allowing me to participate in the care of your patient. Please don't hesitate to call if any issues arise
[2018-06-06] MEDS: dilTIAZem 25 MG/5 ML Vial 10 MG IV BOLUS (08:47)
[2018-06-06] MEDS: Polyethylene Glycol 3350 17 GM PACKET GT ×2 (09:01→21:50)
[2018-06-06] MEDS: DULoxetine Hcl 30 MG Capsule PO (09:01)
[2018-06-06] MEDS: Senna/Docusate Sodium 1 Tablet 2 TABLET GT ×2 (09:01→21:50)
[2018-06-06] MEDS: Acetaminophen 650 MG/20 ML UDC GT ×2 (09:29→16:13)
[2018-06-06] MEDS: Chlorhexidine 15 ML PO ×2 (10:17→22:08)
--- NOTE | 2018-06-06 10:54 | CASEMGMT ---
SW/CM participated in ICU rounds this morning, pt's son present. Pt remains on the ventilator at this time. SW/CM will continue to follow for discharge needs, at this time it is too soon to know what pt's needs will be at discharge. VENANCIO Collado, MD PHYSICIAN DERMATOLOGIST
[2018-06-06] MEDS: CHLORHEXIDINE GLUC 2% CLOTH 1 EACH TOWELETTE TOPICAL (10:59)
[2018-06-06 11:30] LABS: Bedside Glucose 198 mg/dL (70-110)
--- NOTE | 2018-06-06 11:52 | PCM.PN.ID ---
Patient Problems: Active and Suspected Problems (Last Reviewed 06/05/18 @ 07:40 by Dangelo Alvarado MD) Atrial fibrillation and flutter (Acute) Fever (Acute) Anemia (Acute) Thrombocytopenia (Acute) Bilateral hydronephrosis (Acute) Subjective: Increasing fevers, on vent, breathing stable. Neph tube placed yesterday, minimal bloody output. - Physical Exam General: No apparent distress Lungs: Diminished Cardiovascular: Irregular Rate Abdomen: Soft, Non Tender, Non-Distended Skin: No rashes Vital Signs Temp Pulse Resp BP Pulse Ox 100.8 F H 84 21 H 116/34 L 100 06/06/18 10:47 06/06/18 11:28 06/06/18 11:00 06/06/18 11:00 06/06/18 11:00 Oxygen Flow Rate (L/min) [4] 15 Oxygen Flow Rate (L/min) [3] 15 Oxygen Flow Rate (L/min) [2] 15 Oxygen Flow Rate (L/min) [1 ( 15 Initial Baseline)] Oxygen Flow Rate (L/min) 2 Oxygen Delivery Method [4] Ambu-Bag Oxygen Delivery Method [3] Ambu-Bag Oxygen Delivery Method [2] Ambu-Bag Oxygen Delivery Method [1 ( Ambu-Bag Initial Baseline)] Oxygen Delivery Method Mechanical Ventilator Weight: 78.3 kg Body Mass Index (BMI) 27.1 Finger Stick Blood Glucose 95 Intake and Output for Last 24 Hours 06/04/18 06/05/18 06/06/18 23:59 23:59 23:59 Intake Total 4505 / 4505 1526 / 1526 1871 / 1871 Output Total 1550 / 1550 1600 / 1600 465 / 465 Balance 2955 / 2955 -74 / -74 1406 / 1406 Microbiology Past 72 Hours 06/03/18 15:20 Urine Culture - Final Urine Catheter - [place] Enterococcus faecalis 06/03/18 14:55 Blood Culture - Preliminary Blood Culture (Wb) - Left Wrist No growth in 48 hours. 06/03/18 15:05 Blood Culture - Preliminary Blood Culture (Wb) - Anticubital Right No growth in 48 hours. 06/02/18 22:30 Gram Stain - Final Sputum, Expectorated/Coughed Respiratory Culture - Final Mixed normal respiratory betty. No Streptococcus pneumoniae, beta-hemolytic Streptococcus or Staphylococcus aureus isolated. 06/02/18 01:55 Urine Culture - Final Urine, Clean Catch GPC Poss Enterococcus sp 06/02/18 01:10 Blood Culture - Preliminary Blood Culture (Wb) - Right Forearm No growth in 48 hours. 06/02/18 01:24 Blood Culture - Preliminary Blood Culture (Wb) - Anticubital Left No growth in 48 hours. 06/02/18 22:30 Respiratory Panel (PCR) - Final Mucosa - Nose Laboratory Tests Past 24 Hrs 06/05/18 06/06/18 06/06/18 13:55 04:25 04:25 WBC 13.0 H RBC 2.43 L Hgb 7.6 L 7.2 L Hct 23.7 L 22.4 L MCV 92.2 MCH 29.6 MCHC 32.1 RDW 16.9 H RDW Differential 56.5 H Plt Count 28 L* MPV 12.1 H Neut % (Auto) Not Reportable Absolute Neuts (auto) 8.9 H Absolute Lymphs (auto) 2.85 Total Counted 100 Neutrophils % (Manual) 66 Band Neutrophils % 3 Lymphocytes % (Manual) 22 Monocytes % (Manual) 5 Myelocytes % 4 H Nucleated RBC % 14.4 H Diff Path Review May foll Absolute Retic 1.87 Sodium 148 H Potassium 4.1 Chloride 117 H Carbon Dioxide 18.0 L Anion Gap 13 BUN 115 H* Creatinine 2.19 H Estim Creat Clear Calc 25.09 Est GFR (MDRD) Af Amer 38 L Est GFR (MDRD) Non-Af 31 L BUN/Creatinine Ratio 52.5 H Glucose 208 H Calcium 8.2 L Blood Type Antibody Screen Crossmatch 06/06/18 07:15 WBC RBC Hgb Hct MCV MCH MCHC RDW RDW Differential Plt Count MPV Neut % (Auto) Absolute Neuts (auto) Absolute Lymphs (auto) Total Counted Neutrophils % (Manual) Band Neutrophils % Lymphocytes % (Manual) Monocytes % (Manual) Myelocytes % Nucleated RBC % Diff Path Review Absolute Retic Sodium Potassium Chloride Carbon Dioxide Anion Gap BUN Creatinine Estim Creat Clear Calc Est GFR (MDRD) Af Amer Est GFR (MDRD) Non-Af BUN/Creatinine Ratio Glucose Calcium Blood Type AB POSITIVE Antibody Screen NEGATIVE Crossmatch See Detail POC Glucose 06/06/18 06/06/18 06/05/18 11:19 05:24 23:21 POC Glucose 198 H 161 H 159 H 06/05/18 17:06 POC Glucose 215 H Medical Necessity - Tobacco Use Smoking Status: Former smoker Route of nutrition/ use of supplements: [] Nutritional Intake: [] IV Site: [] [place] Catheter: [] - Assessment/Plan Antibiotics: [] Assessment/Plan: [] Active and Suspected Problems (Last Updated 06/02/18 @ 03:12 by Sally Cm MD) Atrial fibrillation and flutter (Acute) Fever (Acute) Anemia (Acute) Thrombocytopenia (Acute) Fever - at this point seems likely due to 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 UA with mild pyuria, Ucx with only small growth of enterococcus-like. On vanc/zosyn. Bcx neg so far. Dr. Alvarado now following. R neph tube placed 06/05. Will order bcx x2 and ucx from neph tube given rising fever. Will also ask for CALI given valve replacement, worsening fever and wbc. Will follow, d/w Dr. Nicholson.
[2018-06-06 12:38] LABS: H. Pylori Antibody (IgG) 0.16 (0.00-0.79)
[2018-06-06 12:53] LABS: Pathologist Review Reviewed
[2018-06-06 14:15] LABS: Hematocrit 27.4 % (40-54); Mean Corp Hgb Conc 32.8 g/gl (32-36); Mean Corpuscular Hgb 30.2 pg (27.0-32.0); Mean Corpuscular Volume 91.9 fL (80-94); Mean Platelet Vol. 11.7 fl (6.2-12.0); RBC Distribution Width CV 16.2 % (11.6-14.6); RBC Distribution Width SD 53.3 fl (35.1-43.9); Red Blood Count 2.98 M/mm3 (4.6-6.2)
[2018-06-06 14:19] LABS: Platelet Count 35 K/mm3 (150-450)
[2018-06-06 14:20] LABS: Scan Indicated on CBC? Y/N YES- FLAGS NOTED
--- NOTE | 2018-06-06 14:32 | PCM.PN.HOSP ---
Patient Problems: Active and Suspected Problems (Last Reviewed 06/05/18 @ 07:40 by Dangelo Alvarado MD) Atrial fibrillation and flutter (Acute) Fever (Acute) Anemia (Acute) Thrombocytopenia (Acute) Bilateral hydronephrosis (Acute) Subjective: Patient was seen and examined. He remains intubated, turns head to voices, follows simple commands. Remains febrile. S/p bilateral nephrostomy tubes. Receiving 2 units of pRBC. Urine cultiures growing E. fecalis Objective: Physical exam: General: awake, intubated, on mechanical ventilator HEENT: Atraumatic, PERRLA, EOMI, Normocephalic Oral: Dry Mucosa Neck: Supple Lungs: Normal air movement, Diminished Cardiovascular: Regular rate, Regular Rhythm, Normal S1, Normal S2, No murmurs Abdomen: Bowel Sounds Present, Soft, Non Tender, Non-Distended, No Hepato-splenomegaly, - - Crump catheter in situ Bilateral nephrostomy tubes Extremities: No edema Skin: No rashes Musculoskeletal: No Tenderness to Palpation of Joints or Extremities Lymphatic: No Cervical, Supraclavicular, or Inguinal Adenopathy Neurological: Cranial nerves II-XII grossly intact, Neuro grossly intact Psych/Mental Status: Normal Affect, Appropriate Vitals/I&O's: Vital Signs Temp Pulse Resp BP Pulse Ox 100.2 F H 90 22 H 113/42 L 99 06/06/18 13:50 06/06/18 14:00 06/06/18 14:00 06/06/18 14:00 06/06/18 14:00 Oxygen Flow Rate (L/min) [4] 15 Oxygen Flow Rate (L/min) [3] 15 Oxygen Flow Rate (L/min) [2] 15 Oxygen Flow Rate (L/min) [1 ( 15 Initial Baseline)] Oxygen Flow Rate (L/min) 2 Oxygen Delivery Method [4] Ambu-Bag Oxygen Delivery Method [3] Ambu-Bag Oxygen Delivery Method [2] Ambu-Bag Oxygen Delivery Method [1 ( Ambu-Bag Initial Baseline)] Oxygen Delivery Method Mechanical Ventilator Weight: 78.3 kg Body Mass Index (BMI) 27.1 Finger Stick Blood Glucose 95 Intake and Output for Last 24 Hours 06/04/18 06/05/18 06/06/18 23:59 23:59 23:59 Intake Total 4505 / 4505 1526 / 1526 2591 / 2591 Output Total 1550 / 1550 1600 / 1600 465 / 465 Balance 2955 / 2955 -74 / -74 2126 / 2126 Microbiology Past 72 Hours 06/03/18 15:20 Urine Catheter - Crump Urine Culture - Final Enterococcus faecalis 06/03/18 14:55 Blood Culture (Wb) - Left Wrist Blood Culture - Preliminary No growth in 48 hours. 06/03/18 15:05 Blood Culture (Wb) - Anticubital Right Blood Culture - Preliminary No growth in 48 hours. 06/02/18 22:30 Sputum, Expectorated/Coughed Gram Stain - Final 06/02/18 22:30 Sputum, Expectorated/Coughed Respiratory Culture - Final Mixed normal respiratory betty. No Streptococcus pneumoniae, beta-hemolytic Streptococcus or Staphylococcus aureus isolated. 06/02/18 01:55 Urine, Clean Catch Urine Culture - Final GPC Poss Enterococcus sp 06/02/18 01:10 Blood Culture (Wb) - Right Forearm Blood Culture - Preliminary No growth in 48 hours. 06/02/18 01:24 Blood Culture (Wb) - Anticubital Left Blood Culture - Preliminary No growth in 48 hours. 06/02/18 22:30 Mucosa - Nose Respiratory Panel (PCR) - Final Laboratory Results 06/05/18 11:45: H. pylori IgG Antibody 0.16 06/05/18 17:06: POC Glucose 215 H 06/05/18 23:21: POC Glucose 159 H 06/06/18 04:25: WBC 13.0 H, RBC 2.43 L, Hgb 7.2 L, Hct 22.4 L, MCV 92.2, MCH 29.6, MCHC 32.1, RDW 16.9 H, RDW Differential 56.5 H, Plt Count 28 L*, MPV 12.1 H, Neut % (Auto) Not Reportable, Absolute Neuts (auto) 8.9 H, Absolute Lymphs (auto) 2.85, Total Counted 100, Neutrophils % (Manual) 66, Band Neutrophils % 3, Lymphocytes % (Manual) 22, Monocytes % (Manual) 5, Myelocytes % 4 H, Nucleated RBC % 14.4 H, Diff Path Review Reviewed, Absolute Retic 1.87 06/06/18 04:25: Sodium 148 H, Potassium 4.1, Chloride 117 H, Carbon Dioxide 18.0 L, Anion Gap 13, BUN 115 H*, Creatinine 2.19 H, Estim Creat Clear Calc 25.09, Est GFR (MDRD) Af Amer 38 L, Est GFR (MDRD) Non-Af 31 L, BUN/Creatinine Ratio 52.5 H, Glucose 208 H, Calcium 8.2 L 06/06/18 05:24: POC Glucose 161 H 06/06/18 07:15: Blood Type AB POSITIVE, Antibody Screen NEGATIVE, Crossmatch See Detail 06/06/18 11:19: POC Glucose 198 H 06/06/18 14:00: WBC 20.0 H, RBC 2.98 L, Hgb 9.0 L, Hct 27.4 L, MCV 91.9, MCH 30.2, MCHC 32.8, RDW 16.2 H, RDW Differential 53.3 H, Plt Count 35 L*, MPV 11.7 Current Medications Acetaminophen (Tylenol Liquid) 650 mg GT Q6H PRN PRN PRN Reason: Fever, headache, pain Last Admin: 06/06/18 09:29 Dose: 650 mg Atorvastatin Calcium (Lipitor) 10 mg GT QHS [facility] Last Admin: 06/05/18 20:54 Dose: 10 mg Chlorhexidine Gluconate () 15 ml PO BID [facility] Last Admin: 06/06/18 10:17 Dose: 15 ml Chlorhexidine Gluconate () 1 each TOPICAL DAILY [facility] Last Admin: 06/06/18 10:59 Dose: 1 each Duloxetine HCl (Cymbalta) 30 mg PO DAILY [facility] Last Admin: 06/06/18 09:01 Dose: 30 mg Sodium Chloride () 250 mls @ 15 mls/hr IV .[id number] PRN PRN Reason: SALINE FLUSH Last Admin: 06/03/18 02:30 Dose: 15 mls/hr Propofol (Diprivan) 1,000 mg in 100 mls @ 4.596 mls/hr CONT INF .Q12H [facility] Last Admin: 06/05/18 23:23 Dose: 4.596 mls/hr Piperacillin Sod/Tazobactam (Sod 3.375 gm/ Sodium Chloride) 50 mls @ 12.5 mls/hr IV Q8 [facility] Last Admin: 06/06/18 05:28 Dose: 12.5 mls/hr Vancomycin IV Pharmacy to Dose (1 ea/ Sodium Chloride) 500 mls @ 250 mls/hr IV X1 PRN; Protocol PRN Reason: Rx to Dose Fentanyl () 100 mls @ 2.5 mls/hr IV .Q40H [facility] Last Admin: 06/05/18 20:13 Dose: 2.5 mls/hr Pantoprazole Sodium 40 mg/ (Sodium Chloride) 110 mls @ 330 mls/hr IV Q12 [facility] Last Admin: 06/06/18 11:01 Dose: 330 mls/hr Amiodarone HCl 360 mg/ (Dextrose) 200 mls @ 16.67 mls/hr CONT INF .Q12H [facility] Last Admin: 06/06/18 05:25 Dose: 16.67 mls/hr Enteral Nutritional Formula (Vital Af 1.2 Abilio Liquid) 1,000 mls @ 50 mls/hr GT .Q20H [facility] Last Admin: 06/06/18 04:16 Dose: Not Given Vancomycin HCl 1,250 mg/ (Sodium Chloride) 275 mls @ 167 mls/hr IV Q24H [facility] Last Admin: 06/06/18 04:16 Dose: 167 mls/hr Diltiazem HCl 125 mg/ Dextrose 125 mls @ 5 mls/hr IV .Q25H [facility] Last Admin: 06/06/18 08:48 Dose: 5 mls/hr Insulin Glargine (Lantus (Bkc)) 20 units SC 06,18 [facility] Last Admin: 06/06/18 05:28 Dose: 20 u Insulin Human Lispro (Humalog Kwikpen (Bkc)) 0 unit SC Q6 [facility]; Protocol Last Admin: 06/06/18 11:22 Dose: 3 u Magnesium Hydroxide (Milk Of Magnesia) 30 ml GT DAILY PRN PRN Reason: Constipation Ondansetron HCl (Zofran) 4 mg IV Q6H PRN PRN PRN Reason: NAUSEA/VOMITING Polyethylene Glycol (Miralax) 17 gm GT BID [facility] Last Admin: 06/06/18 09:01 Dose: 17 gm Senna/Docusate Sodium (Senokot-S, Marianne-Colace) 2 tablet GT BID [facility] Last Admin: 06/06/18 09:01 Dose: 2 tablet Sodium Chloride () 5 - 15 ml IV UD PRN PRN Reason: SALINE FLUSH Last Admin: 06/05/18 05:33 Dose: 10 ml Sucralfate (Carafate) 1 gm GT TID [facility] Last Admin: 06/06/18 05:27 Dose: 1 gm Medical Necessity - Tobacco Use Smoking Status: Former smoker Assessment/Plan All Active Problems (Last Reviewed 06/05/18 @ 07:40 by Dangelo Alvarado MD) Atrial fibrillation and flutter (Acute) Fever (Acute) Anemia (Acute) Thrombocytopenia (Acute) Bilateral hydronephrosis (Acute) 77-year-old male with past medical history of metastatic prostate cancer to the bone, history of aortic valve replacement with bioprosthetic valve, CKD, hypertension, BPH admitted on 06/02/18 with altered mental status initially managed as sepsis secondary to acute cystitis. Patient was found to have gone into respiratory failure resulting in intubation and transfer to the ICU 1. Acute respiratory failure, unclear etiology, likely metabolically related, remains intubated, on mechanical ventilator Cargo Service Agent consulted, will continue per recommendations 2. A. fib/A. flutter with RVR, history of paroxysmal atrial fibrillation, went into A. fib with RVR, started on IV amiodarone and cardizem Heparin drip on hold on account of GI bleed. 3. 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 Acute GI bleed status post EGD, secondary to gastric and duodenal ulcer, on IV PPI and sucralfate, will monitor for further bleeding 5. Sepsis secondary to enterococcus UTI, possible CAP, on Zosyn and Vancomycin, Blood cultures are negative. Repeat blood and urine cultures planned as well as CALI 6. Complicated UTI secondary to bilateral hydronephrosis, history of metastatic prostate CA S/p nephrostomy tubes 7. Indeterminate troponins, likely secondary to sepsis and respiratory failure, peaked at 0.099, dropped to 0.084 8. CKD stage 3, Cr is slightly worse, will continue to monitor 9. Hypertension, relatively hypotension, on metoprolol 12.5mg GT BID, will continue to monitor 10. Metastatic prostate cancer with metastases to the bone, never treated 11. s/p aortic valve replacement with bioprosthetic valve 12. BPH s/p crump catheter 13. DVT PPx- SCDs - Heparin on hold for GI bleed Code Visit Inpatient E&M: 86506 Subs Hosp L3
--- NOTE | 2018-06-06 14:44 | PN_ITS ---
Patient Problems: Active and Suspected Problems (Last Reviewed 06/05/18 @ 07:40 by Dangelo Alvarado MD) Atrial fibrillation and flutter (Acute) Fever (Acute) Anemia (Acute) Thrombocytopenia (Acute) Bilateral hydronephrosis (Acute) Subjective: Patient was seen and examined. He remains intubated, turns head to voices, follows simple commands. Remains febrile. S/p bilateral nephrostomy tubes. Receiving 2 units of pRBC. Urine cultiures growing E. fecalis Objective: Physical exam: General: awake, intubated, on mechanical ventilator HEENT: Atraumatic, PERRLA, EOMI, Normocephalic Oral: Dry Mucosa Neck: Supple Lungs: Normal air movement, Diminished Cardiovascular: Regular rate, Regular Rhythm, Normal S1, Normal S2, No murmurs Abdomen: Bowel Sounds Present, Soft, Non Tender, Non-Distended, No Hepato- splenomegaly, - - Crump catheter in situ Bilateral nephrostomy tubes Extremities: No edema Skin: No rashes Musculoskeletal: No Tenderness to Palpation of Joints or Extremities Lymphatic: No Cervical, Supraclavicular, or Inguinal Adenopathy Neurological: Cranial nerves II-XII grossly intact, Neuro grossly intact Psych/Mental Status: Normal Affect, Appropriate Vitals/I&O's: Vital Signs Temp Pulse Resp BP Pulse Ox 100.2 F H 90 22 H 113/42 L 99 06/06/18 13:50 06/06/18 14:00 06/06/18 14:00 06/06/18 14:00 06/06/18 14:00 Oxygen Flow Rate (L/min) [4] 15 Oxygen Flow Rate (L/min) [3] 15 Oxygen Flow Rate (L/min) [2] 15 Oxygen Flow Rate (L/min) [1 ( 15 Initial Baseline)] Oxygen Flow Rate (L/min) 2 Oxygen Delivery Method [4] Ambu-Bag Oxygen Delivery Method [3] Ambu-Bag Oxygen Delivery Method [2] Ambu-Bag Oxygen Delivery Method [1 ( Ambu-Bag Initial Baseline)] Oxygen Delivery Method Mechanical Ventilator Weight: 78.3 kg Body Mass Index (BMI) 27.1 Finger Stick Blood Glucose 95 Intake and Output for Last 24 Hours 06/04/18 06/05/18 06/06/18 23:59 23:59 23:59 Intake Total 4505 / 4505 1526 / 1526 2591 / 2591 Output Total 1550 / 1550 1600 / 1600 465 / 465 Balance 2955 / 2955 -74 / -74 2126 / 2126 Microbiology Past 72 Hours 06/03/18 15:20 Urine Catheter - Crump Urine Culture - Final Enterococcus faecalis 06/03/18 14:55 Blood Culture (Wb) - Left Wrist Blood Culture - Preliminary No growth in 48 hours. 06/03/18 15:05 Blood Culture (Wb) - Anticubital Right Blood Culture - Preliminary No growth in 48 hours. 06/02/18 22:30 Sputum, Expectorated/Coughed Gram Stain - Final 06/02/18 22:30 Sputum, Expectorated/Coughed Respiratory Culture - Final Mixed normal respiratory betty. No Streptococcus pneumoniae, beta-hemolytic Streptococcus or Staphylococcus aureus isolated. 06/02/18 01:55 Urine, Clean Catch Urine Culture - Final GPC Poss Enterococcus sp 06/02/18 01:10 Blood Culture (Wb) - Right Forearm Blood Culture - Preliminary No growth in 48 hours. 06/02/18 01:24 Blood Culture (Wb) - Anticubital Left Blood Culture - Preliminary No growth in 48 hours. 06/02/18 22:30 Mucosa - Nose Respiratory Panel (PCR) - Final Laboratory Results 06/05/18 11:45: H. pylori IgG Antibody 0.16 06/05/18 17:06: POC Glucose 215 H 06/05/18 23:21: POC Glucose 159 H 06/06/18 04:25: WBC 13.0 H, RBC 2.43 L, Hgb 7.2 L, Hct 22.4 L, MCV 92.2, MCH 29.6, MCHC 32.1, RDW 16.9 H, RDW Differential 56.5 H, Plt Count 28 L*, MPV 12.1 H, Neut % (Auto) Not Reportable, Absolute Neuts (auto) 8.9 H, Absolute Lymphs (auto) 2.85, Total Counted 100, Neutrophils % (Manual) 66, Band Neutrophils % 3, Lymphocytes % (Manual) 22, Monocytes % (Manual) 5, Myelocytes % 4 H, Nucleated RBC % 14.4 H, Diff Path Review Reviewed, Absolute Retic 1.87 06/06/18 04:25: Sodium 148 H, Potassium 4.1, Chloride 117 H, Carbon Dioxide 18.0 L, Anion Gap 13, BUN 115 H*, Creatinine 2.19 H, Estim Creat Clear Calc 25.09, Est GFR (MDRD) Af Amer 38 L, Est GFR (MDRD) Non-Af 31 L, BUN/Creatinine Ratio 52.5 H, Glucose 208 H, Calcium 8.2 L 06/06/18 05:24: POC Glucose 161 H 06/06/18 07:15: Blood Type AB POSITIVE, Antibody Screen NEGATIVE, Crossmatch See Detail 06/06/18 11:19: POC Glucose 198 H 06/06/18 14:00: WBC 20.0 H, RBC 2.98 L, Hgb 9.0 L, Hct 27.4 L, MCV 91.9, MCH 30.2, MCHC 32.8, RDW 16.2 H, RDW Differential 53.3 H, Plt Count 35 L*, MPV 11.7 Current Medications Acetaminophen (Tylenol Liquid) 650 mg GT Q6H PRN PRN PRN Reason: Fever, headache, pain Last Admin: 06/06/18 09:29 Dose: 650 mg Atorvastatin Calcium (Lipitor) 10 mg GT QHS [facility] Last Admin: 06/05/18 20:54 Dose: 10 mg Chlorhexidine Gluconate () 15 ml PO BID [facility] Last Admin: 06/06/18 10:17 Dose: 15 ml Chlorhexidine Gluconate () 1 each TOPICAL DAILY [facility] Last Admin: 06/06/18 10:59 Dose: 1 each Duloxetine HCl (Cymbalta) 30 mg PO DAILY [facility] Last Admin: 06/06/18 09:01 Dose: 30 mg Sodium Chloride () 250 mls @ 15 mls/hr IV .[id number] PRN PRN Reason: SALINE FLUSH Last Admin: 06/03/18 02:30 Dose: 15 mls/hr Propofol (Diprivan) 1,000 mg in 100 mls @ 4.596 mls/hr CONT INF .Q12H [facility] Last Admin: 06/05/18 23:23 Dose: 4.596 mls/hr Piperacillin Sod/Tazobactam (Sod 3.375 gm/ Sodium Chloride) 50 mls @ 12.5 mls/hr IV Q8 [facility] Last Admin: 06/06/18 05:28 Dose: 12.5 mls/hr Vancomycin IV Pharmacy to Dose (1 ea/ Sodium Chloride) 500 mls @ 250 mls/hr IV X1 PRN; Protocol PRN Reason: Rx to Dose Fentanyl () 100 mls @ 2.5 mls/hr IV .Q40H [facility] Last Admin: 06/05/18 20:13 Dose: 2.5 mls/hr Pantoprazole Sodium 40 mg/ (Sodium Chloride) 110 mls @ 330 mls/hr IV Q12 [facility] Last Admin: 06/06/18 11:01 Dose: 330 mls/hr Amiodarone HCl 360 mg/ (Dextrose) 200 mls @ 16.67 mls/hr CONT INF .Q12H [facility] Last Admin: 06/06/18 05:25 Dose: 16.67 mls/hr Enteral Nutritional Formula (Vital Af 1.2 Abilio Liquid) 1,000 mls @ 50 mls/hr GT .Q20H [facility] Last Admin: 06/06/18 04:16 Dose: Not Given Vancomycin HCl 1,250 mg/ (Sodium Chloride) 275 mls @ 167 mls/hr IV Q24H [facility] Last Admin: 06/06/18 04:16 Dose: 167 mls/hr Diltiazem HCl 125 mg/ Dextrose 125 mls @ 5 mls/hr IV .Q25H [facility] Last Admin: 06/06/18 08:48 Dose: 5 mls/hr Insulin Glargine (Lantus (Bkc)) 20 units SC 06,18 [facility] Last Admin: 06/06/18 05:28 Dose: 20 u Insulin Human Lispro (Humalog Kwikpen (Bkc)) 0 unit SC Q6 [facility]; Protocol Last Admin: 06/06/18 11:22 Dose: 3 u Magnesium Hydroxide (Milk Of Magnesia) 30 ml GT DAILY PRN PRN Reason: Constipation Ondansetron HCl (Zofran) 4 mg IV Q6H PRN PRN PRN Reason: NAUSEA/VOMITING Polyethylene Glycol (Miralax) 17 gm GT BID [facility] Last Admin: 06/06/18 09:01 Dose: 17 gm Senna/Docusate Sodium (Senokot-S, Marianne-Colace) 2 tablet GT BID [facility] Last Admin: 06/06/18 09:01 Dose: 2 tablet Sodium Chloride () 5 - 15 ml IV UD PRN PRN Reason: SALINE FLUSH Last Admin: 06/05/18 05:33 Dose: 10 ml Sucralfate (Carafate) 1 gm GT TID [facility] Last Admin: 06/06/18 05:27 Dose: 1 gm Medical Necessity - Tobacco Use Smoking Status: Former smoker Assessment/Plan All Active Problems (Last Reviewed 06/05/18 @ 07:40 by Dangelo Alvarado MD) Atrial fibrillation and flutter (Acute) Fever (Acute) Anemia (Acute) Thrombocytopenia (Acute) Bilateral hydronephrosis (Acute) 77-year-old male with past medical history of metastatic prostate cancer to the bone, history of aortic valve replacement with bioprosthetic valve, CKD, hypertension, BPH admitted on 06/02/18 with altered mental status initially managed as sepsis secondary to acute cystitis. Patient was found to have gone into respiratory failure resulting in intubation and transfer to the ICU 1. Acute respiratory failure, unclear etiology, likely metabolically related, remains intubated, on mechanical ventilator Appraiser Auditor consulted, will continue per recommendations 2. A. fib/A. flutter with RVR, history of paroxysmal atrial fibrillation, went into A. fib with RVR, started on IV amiodarone and cardizem Heparin drip on hold on account of GI bleed. 3. 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 Acute GI bleed status post EGD, secondary to gastric and duodenal ulcer, on IV PPI and sucralfate, will monitor for further bleeding 5. Sepsis secondary to enterococcus UTI, possible CAP, on Zosyn and Vancomycin, Blood cultures are negative. Repeat blood and urine cultures planned as well as CALI 6. Complicated UTI secondary to bilateral hydronephrosis, history of metastatic prostate CA S/p nephrostomy tubes 7. Indeterminate troponins, likely secondary to sepsis and respiratory failure, peaked at 0.099, dropped to 0.084 8. CKD stage 3, Cr is slightly worse, will continue to monitor 9. Hypertension, relatively hypotension, on metoprolol 12.5mg GT BID, will continue to monitor 10. Metastatic prostate cancer with metastases to the bone, never treated 11. s/p aortic valve replacement with bioprosthetic valve 12. BPH s/p crump catheter 13. DVT PPx- SCDs - Heparin on hold for GI bleed Code Visit Inpatient E&M: 36375 Subs Hosp L3
[2018-06-06] MEDS: Propofol 10MG/Ml 1,000 MG/100 ML Bottle 4.596 MG CONT INF (16:11)
[2018-06-06] MEDS: fentaNYL drip 100 ML 2.5 MCG IV (16:11)
[2018-06-06] MEDS: 0.9% NaCl IVPB Med Flush (250 mL) 15 ML IV (17:05)
[2018-06-06 17:21] LABS: Bedside Glucose 216 mg/dL (70-110)
[2018-06-06] MEDS: Atorvastatin Calcium 10 MG Tablet GT (21:50)
[2018-06-07] VITALS (44 sets, daily range): BP systolic 107–122; BP diastolic 38–73; PULSE 82–121; RESP 14–31; TEMP 38–38.6; O2SAT 21–100
[2018-06-07] MEDS: Insulin Lispro 100 UNIT/ML INSULN.PEN SC ×5 (00:13→23:55)
[2018-06-07 00:21] LABS: Bedside Glucose 167 mg/dL (70-110)
[2018-06-07] MEDS: 0.9% NaCl Peripheral Flush Adult/Peds IV ×2 (03:56→14:48)
[2018-06-07] MEDS: CHLORHEXIDINE GLUC 2% CLOTH 1 EACH TOWELETTE TOPICAL (03:57)
[2018-06-07 04:36] LABS: Anion Gap 14 (5-15); BUN 107 mg/dL (7-18); BUN/Creat Ratio 48.4 RATIO (10-20); Chloride 120 mmol/L (98-107); Creatinine, Serum 2.21 mg/dL (0.70-1.30); EST Glomerular Filtration Rate 31 mL/min (>60); Est Glom Filt Rate - Afr Amer 37 mL/min (>60); Estimated Creatinine Clearance 24.86 ml/min; Glucose 200 mg/dL (74-106); Hematocrit 26.9 % (40-54); Hemoglobin 8.7 g/dl (13.0-16.5); Mean Corp Hgb Conc 32.3 g/gl (32-36); Mean Corpuscular Volume 92.8 fL (80-94); Potassium 3.4 mmol/L (3.5-5.1); RBC Distribution Width CV 16.4 % (11.6-14.6); RBC Distribution Width SD 54.5 fl (35.1-43.9); Sodium Level 152 mmol/L (136-145); White Blood Count 16.5 K/mm3 (4.4-11.0)
[2018-06-07 04:38] LABS: POSITIVE DIFFERENTIAL NO; Platelet Count 23 K/mm3 (150-450)
[2018-06-07 04:39] LABS: Differential Indicated MANUAL DIFF; POSITIVE COUNT YES; POSITIVE MORPHOLOGY YES
[2018-06-07 05:18] LABS: Lymphocyte 15 % (19-41); Metamyelocyte 1 % (0-1); Monocyte 2 % (0-10); Neutrophil-Band 4 % (0-5); Neutrophil-Segmented 78 % (47-70); Total Cells Counted 100 (MANUAL DIFF)
[2018-06-07 05:20] LABS: Absolute Lymphocyte Count 2.48 X10^3/ul (0.83-4.51); Absolute Neutrophil Count 13.6 X10^3/uL (2.0-7.7)
[2018-06-07 05:22] LABS: Absolute Nucleated RBC Count 3.27 10^3/uL (0-5); NRBC Flagged by Analyzer 19.8 % (0-5)
[2018-06-07] MEDS: Sucralfate 1 GM Tablet GT ×3 (05:44→21:50)
[2018-06-07 05:51] LABS: Bedside Glucose 202 mg/dL (70-110)
--- NOTE | 2018-06-07 06:21 | PCM.PN.INT ---
Subjective: The patient was seen and examined at the bedside this morning. Events from the last 24 hours have been reviewed. The patient remains febrile with a T-max of 38.6 ?C over the last 24 hours. He remains hemodynamically stable. FiO2 requirement is minimal. The patient's white blood cell count is down trending. However, his blood counts remained tenuous. The patient was transfused 2 units of packed red blood cells yesterday along with 1 unit of platelets. His hemoglobin this morning was noted to be 8.7 g/dL. His platelet count is low again at 23,000 this morning. Potassium is low at 3.4. He is currently documented to be overall net +8.8 L for the admission. The patient failed his spontaneous breathing trial this morning with low tidal volumes noted along with tachypnea. He is currently scheduled to undergo a transesophageal echocardiogram on Saturday. The patient has not yet had a bowel movement. Tube feeds remain on hold. He has not had any bloody output from his OG. Objective: The patient's most recent lab work, culture data and imaging studies have all been personally reviewed. Surface echocardiogram revealed normal LV size and function with an ejection fraction of 65% and stage I diastolic dysfunction. Pulmonary artery systolic pressure was estimated to be 40 mmHg. VQ scan completed on June 02 was noted to be a low quality VQ scan, but was reported to be most consistent with low probability for PE. CT chest dated June 02 revealed small bilateral pleural effusions without focal infiltrates. CT abdomen revealed bilateral hydronephrosis along with bilateral hydroureter. Urine culture dated June 02 and June 03 both revealed Enterococcus faecalis. General: Alert, No apparent distress, - - Remains intubated and mechanically ventilated. No ventilator dyssynchrony noted. HEENT: Atraumatic, PERRLA, Normocephalic Oral: No Gingival or Mucosal Lesions/ Ulcerations, - - Endotracheal and OG tubes remain in place. Neck: Supple, No Nodes, Trachea Midline Lungs: No rhonchi, No wheeze, No rales, Diminished Cardiovascular: Regular rate, Regular Rhythm, Normal S1, Normal S2, Murmur, - - Currently in normal sinus rhythm on telemetry Abdomen: Soft, Non Tender, Hypoactive Bowel Sounds Extremities: No clubbing, No cyanosis, No edema Skin: - - No significant change from previous Musculoskeletal: No Tenderness to Palpation of Joints or Extremities Lymphatic: No Cervical, Supraclavicular, or Inguinal Adenopathy Neurological: Neuro grossly intact, - - Currently alert and interactive on the ventilator. Vital Signs Temp Pulse Resp BP Pulse Ox 38.2 C H 88 31 H 120/42 L 99 06/07/18 05:00 06/07/18 05:00 06/07/18 05:00 06/07/18 05:00 06/07/18 05:00 Oxygen Flow Rate (L/min) [4] 15 Oxygen Flow Rate (L/min) [3] 15 Oxygen Flow Rate (L/min) [2] 15 Oxygen Flow Rate (L/min) [1 ( 15 Initial Baseline)] Oxygen Flow Rate (L/min) 2 Oxygen Delivery Method [4] Ambu-Bag Oxygen Delivery Method [3] Ambu-Bag Oxygen Delivery Method [2] Ambu-Bag Oxygen Delivery Method [1 ( Ambu-Bag Initial Baseline)] Oxygen Delivery Method Mechanical Ventilator Weight: 175 lb 7.807 oz Body Mass Index (BMI) 27.1 Finger Stick Blood Glucose 95 Intake and Output for Last 24 Hours 06/05/18 06/06/18 06/07/18 23:59 23:59 23:59 Intake Total 1526 / 1526 4487.5 / 4487.5 513.8 / 513.8 Output Total 1600 / 1600 1070 / 1070 300 / 300 Balance -74 / -74 3417.5 / 3417.5 213.8 / 213.8 Labs (Last 48 Hours) 06/05/18 06/05/18 06/05/18 10:30 11:00 11:45 WBC RBC Hgb Hct MCV MCH MCHC RDW RDW Differential Plt Count MPV Neut % (Auto) Absolute Neuts (auto) Absolute Lymphs (auto) Total Counted Neutrophils % (Manual) Band Neutrophils % Lymphocytes % (Manual) Monocytes % (Manual) Metamyelocytes % Myelocytes % Nucleated RBC % Differential Comment Diff Path Review Absolute Retic PT 19.9 H INR 1.7 Sodium Potassium Chloride Carbon Dioxide Anion Gap BUN Creatinine Estim Creat Clear Calc Est GFR (MDRD) Af Amer Est GFR (MDRD) Non-Af BUN/Creatinine Ratio Glucose Calcium H. pylori IgG Antibody 0.16 POC Glucose 285 H Blood Type Antibody Screen Crossmatch 06/05/18 06/05/18 06/05/18 13:55 17:06 23:21 WBC RBC Hgb 7.6 L Hct 23.7 L MCV MCH MCHC RDW RDW Differential Plt Count MPV Neut % (Auto) Absolute Neuts (auto) Absolute Lymphs (auto) Total Counted Neutrophils % (Manual) Band Neutrophils % Lymphocytes % (Manual) Monocytes % (Manual) Metamyelocytes % Myelocytes % Nucleated RBC % Differential Comment Diff Path Review Absolute Retic PT INR Sodium Potassium Chloride Carbon Dioxide Anion Gap BUN Creatinine Estim Creat Clear Calc Est GFR (MDRD) Af Amer Est GFR (MDRD) Non-Af BUN/Creatinine Ratio Glucose Calcium H. pylori IgG Antibody POC Glucose 215 H 159 H Blood Type Antibody Screen Crossmatch 06/06/18 06/06/18 06/06/18 04:25 04:25 05:24 WBC 13.0 H RBC 2.43 L Hgb 7.2 L Hct 22.4 L MCV 92.2 MCH 29.6 MCHC 32.1 RDW 16.9 H RDW Differential 56.5 H Plt Count 28 L* MPV 12.1 H Neut % (Auto) Not Reportable Absolute Neuts (auto) 8.9 H Absolute Lymphs (auto) 2.85 Total Counted 100 Neutrophils % (Manual) 66 Band Neutrophils % 3 Lymphocytes % (Manual) 22 Monocytes % (Manual) 5 Metamyelocytes % Myelocytes % 4 H Nucleated RBC % 14.4 H Differential Comment Diff Path Review Reviewed Absolute Retic 1.87 PT INR Sodium 148 H Potassium 4.1 Chloride 117 H Carbon Dioxide 18.0 L Anion Gap 13 BUN 115 H* Creatinine 2.19 H Estim Creat Clear Calc 25.09 Est GFR (MDRD) Af Amer 38 L Est GFR (MDRD) Non-Af 31 L BUN/Creatinine Ratio 52.5 H Glucose 208 H Calcium 8.2 L H. pylori IgG Antibody POC Glucose 161 H Blood Type Antibody Screen Crossmatch 06/06/18 06/06/18 06/06/18 07:15 11:19 14:00 WBC 20.0 H RBC 2.98 L Hgb 9.0 L Hct 27.4 L MCV 91.9 MCH 30.2 MCHC 32.8 RDW 16.2 H RDW Differential 53.3 H Plt Count 35 L* MPV 11.7 Neut % (Auto) Absolute Neuts (auto) Absolute Lymphs (auto) Total Counted Neutrophils % (Manual) Band Neutrophils % Lymphocytes % (Manual) Monocytes % (Manual) Metamyelocytes % Myelocytes % Nucleated RBC % Differential Comment COMMENT Diff Path Review May foll Absolute Retic PT INR Sodium Potassium Chloride Carbon Dioxide Anion Gap BUN Creatinine Estim Creat Clear Calc Est GFR (MDRD) Af Amer Est GFR (MDRD) Non-Af BUN/Creatinine Ratio Glucose Calcium H. pylori IgG Antibody POC Glucose 198 H Blood Type AB POSITIVE Antibody Screen NEGATIVE Crossmatch See Detail 06/06/18 06/07/18 06/07/18 17:04 00:11 03:50 WBC 16.5 H RBC 2.90 L Hgb 8.7 L Hct 26.9 L MCV 92.8 MCH 30.0 MCHC 32.3 RDW 16.4 H RDW Differential 54.5 H Plt Count 23 L* MPV TNP Neut % (Auto) Not Reportable Absolute Neuts (auto) 13.6 H Absolute Lymphs (auto) 2.48 Total Counted 100 Neutrophils % (Manual) 78 H Band Neutrophils % 4 Lymphocytes % (Manual) 15 L Monocytes % (Manual) 2 Metamyelocytes % 1 Myelocytes % Nucleated RBC % 19.8 H Differential Comment Diff Path Review May foll Absolute Retic 3.27 PT INR Sodium Potassium Chloride Carbon Dioxide Anion Gap BUN Creatinine Estim Creat Clear Calc Est GFR (MDRD) Af Amer Est GFR (MDRD) Non-Af BUN/Creatinine Ratio Glucose Calcium H. pylori IgG Antibody POC Glucose 216 H 167 H Blood Type Antibody Screen Crossmatch 06/07/18 06/07/18 03:50 05:42 WBC RBC Hgb Hct MCV MCH MCHC RDW RDW Differential Plt Count MPV Neut % (Auto) Absolute Neuts (auto) Absolute Lymphs (auto) Total Counted Neutrophils % (Manual) Band Neutrophils % Lymphocytes % (Manual) Monocytes % (Manual) Metamyelocytes % Myelocytes % Nucleated RBC % Differential Comment Diff Path Review Absolute Retic PT INR Sodium 152 H Potassium 3.4 L Chloride 120 H Carbon Dioxide 18.0 L Anion Gap 14 BUN 107 H* Creatinine 2.21 H Estim Creat Clear Calc 24.86 Est GFR (MDRD) Af Amer 37 L Est GFR (MDRD) Non-Af 31 L BUN/Creatinine Ratio 48.4 H Glucose 200 H Calcium 8.0 L H. pylori IgG Antibody POC Glucose 202 H Blood Type Antibody Screen Crossmatch Microbiology 06/03/18 15:20 Urine Catheter - [place] Urine Culture - Final Enterococcus faecalis 06/03/18 14:55 Blood Culture (Wb) - Left Wrist Blood Culture - Preliminary No growth in 48 hours. 06/03/18 15:05 Blood Culture (Wb) - Anticubital Right Blood Culture - Preliminary No growth in 48 hours. 06/02/18 22:30 Sputum, Expectorated/Coughed Gram Stain - Final 06/02/18 22:30 Sputum, Expectorated/Coughed Respiratory Culture - Final Mixed normal respiratory betty. No Streptococcus pneumoniae, beta-hemolytic Streptococcus or Staphylococcus aureus isolated. Clinical Impression(s) from Imaging Studies Brain CT 06/02/18 01:25 IMPRESSION: No acute findings. Individualized dose optimization techniques were used for this CT. at 0159 Reported and signed by: Geoff Joaquin MD Electronically Signed: Geoff Joaquin, at 1:58 EST Tel , Service support , Cervical Spine CT 06/02/18 01:25 IMPRESSION: No fracture or dislocation of the cervical spine. Individualized dose optimization techniques were used for this CT. at 0206 Reported and signed by: Geoff Joaquin MD Electronically Signed: Geoff Joaquin, at 2:05 EST Tel , Service support , Chest X-Ray 06/02/18 01:35 IMPRESSION: Low lung volumes with resultant hypoventilatory changes. No definite pneumonia or edema. Interval sternotomy probably for heart valve replacement. at 0154 Reported and signed by: Geoff Joaquin MD Electronically Signed: Geoff Joaquin, at 1:53 EST Tel , Service support , Lung Scan-VQ NM 06/02/18 13:55 IMPRESSION: Low quality VQ scan, most consistent with low probability of pulmonary embolism. Electronically Signed: Kenny Greene MD at 16:31 EST , Service support , Chest X-Ray 06/02/18 14:28 IMPRESSION: Moderate right pleural effusion with overlying atelectasis. Electronically Signed: Juan Ruiz, at 15:40 EST Tel , Service support , Chest CT 06/02/18 21:14 IMPRESSION: Small bilateral pleural effusions with overlying atelectasis. Sclerotic osseous lesions which are suspicious for metastasis. Electronically Signed: Juan Ruiz, at 22:14 EST Tel , Service support , Chest X-Ray 06/02/18 22:26 IMPRESSION: Mild left basilar atelectasis status post endotracheal tube placement Electronically Signed: Norbert Snyder MD at 23:18 EST , Service support , Abdomen CT 06/04/18 12:33 IMPRESSION: Bilateral hydronephrosis right greater than left with bilateral hydroureter. Diffusely thickened bladder wall. Electronically Signed: Javier Unger, at 15:28 EST , Service support , Nephrostomy Tube Change 06/05/18 07:41 IMPRESSION: 1. The percutaneous right nephrostomy catheter is in good position with the pigtail portion located in the right renal pelvis. 2. The conscious sedation protocol was followed. Electronically Signed: Javier Unger, at 14:33 EST , Service support , Medical Necessity - Tobacco Use Smoking Status: Former smoker Assessment/Plan All Active Problems (Last Reviewed 06/05/18 @ 07:40 by Dangelo Alvarado MD) Atrial fibrillation and flutter (Acute) Fever (Acute) Anemia (Acute) Thrombocytopenia (Acute) Bilateral hydronephrosis (Acute) RECOMMENDATIONS: 1. We will place 2 units of packed red blood cells on hold, should the need arise. 2. Transfuse additional platelets today. 3. Check PF 4 antibody 4. Check coagulation profile, fibrinogen and d-dimer level. 5. Potassium repletion 6. Start tube feeds today and increase free water flushes, given rising sodium level. 7. Plans for transesophageal echocardiogram on Saturday. 8. Continue twice daily PPI therapy. 9. Continue antibiotics per ID recommendations. IMPRESSIONS: 1. Acute hypoxemic respiratory failure The exact etiology for the patient's clinical decompensation is unclear. However, the patient was noted to be tachycardic at the time when he was initially beginning to decompensate. It is unclear whether this was atrial fibrillation or a sinus tachycardia. Given that the patient has paroxysmal atrial fibrillation and underlying valvular heart disease, it is possible that his decompensation may have been heart rate related. In addition, increased metabolic demands from the patient's sepsis and fevers also likely contributed. He is chronically anticoagulated with Eliquis on an outpatient basis. The patient's CT chest only revealed evidence of small bilateral pleural effusions without focal infiltrates. His FiO2 was able to be quickly weaned. We will plan to continue daily paired spontaneous awakening and breathing trials. 2. Severe sepsis with evidence of bilateral hydronephrosis/hydroureter The patient appears to be septic from a urinary source of infection. CT abdomen did reveal evidence of bilateral hydronephrosis, for which the patient underwent a percutaneous nephrostomy tube placement on June 05. Antibiotics will be continued per infectious diseases recommendations. There are tentative plans to perform a CALI on Saturday to ensure that the patient does not have underlying endocarditis. 3. Paroxysmal atrial fibrillation with RVR/history of aortic valve replacement Cardiology following to assist with management. The patient is currently on both amiodarone and Cardizem. 4. Anemia secondary to upper GI bleed/thrombocytopenia The patient does have known normocytic anemia, which appears to have worsened over the course of this hospital stay. The patient did require eventual transfusion of packed red blood cells. Upper endoscopy performed at the bedside did reveal evidence of GI ulcers. However, there was no active bleeding. This will require the permanent discontinuation of the patient's systemic anticoagulation. He will be continued on twice daily PPI therapy and monitored for any ongoing blood loss. We will plan to recheck the patient's H&H this afternoon. 2 units of additional packed red blood cells have been placed on hold. In addition, the patient does have worsening thrombocytopenia. There is some clinical concern for potential HIT versus a sepsis induced syndrome. Although the patient's heparin-containing products have been discontinued. HIT workup is in process. Although of less concern, we will also perform a preliminary DIC workup. Platelets will also be transfused, given the patient's high risk for rebleeding at his gastric ulcer sites. 5. Metastatic prostate cancer/anemia/chronic kidney disease/hypertension/hyperlipidemia/depression/generalized deconditioning and debility Complicates care, management, recovery and prognosis. Likely okay to continue home medications. Physical therapy to once again work with patient once medically stabilized. Recommend formal goals of care discussion with the patient and his family. TIME: 40 minutes of critical care time, independent of procedures, was spent addressing the patient's acute hypoxemic respiratory failure, severe sepsis, paroxysmal atrial fibrillation with a rapid ventricular rate, metastatic prostate cancer, anemia, upper gastrointestinal bleed, review of all data and collaboration with the care team. ([id number]) Code Visit 9xxxx: [id number] Critical care first hour
--- NOTE | 2018-06-07 06:24 | PN_ITS ---
Subjective: The patient was seen and examined at the bedside this morning. Events from the last 24 hours have been reviewed. The patient remains febrile with a T-max of 38.6 ?C over the last 24 hours. He remains hemodynamically stable. FiO2 requirement is minimal. The patient's white blood cell count is down trending. However, his blood counts remained tenuous. The patient was transfused 2 units of packed red blood cells yesterday along with 1 unit of platelets. His hemoglobin this morning was noted to be 8.7 g/dL. His platelet count is low again at 23,000 this morning. Potassium is low at 3.4. He is currently documented to be overall net +8.8 L for the admission. The patient failed his spontaneous breathing trial this morning with low tidal volumes noted along with tachypnea. He is currently scheduled to undergo a transesophageal echocardiogram on Saturday. The patient has not yet had a bowel movement. Tube feeds remain on hold. He has not had any bloody output from his OG. Objective: The patient's most recent lab work, culture data and imaging studies have all been personally reviewed. Surface echocardiogram revealed normal LV size and function with an ejection fraction of 65% and stage I diastolic dysfunction. Pulmonary artery systolic pressure was estimated to be 40 mmHg. VQ scan completed on June 02 was noted to be a low quality VQ scan, but was reported to be most consistent with low probability for PE. CT chest dated June 02 revealed small bilateral pleural effusions without focal infiltrates. CT abdomen revealed bilateral hydronephrosis along with bilateral hydroureter. Urine culture dated June 02 and June 03 both revealed Enterococcus faecalis. General: Alert, No apparent distress, - - Remains intubated and mechanically ventilated. No ventilator dyssynchrony noted. HEENT: Atraumatic, PERRLA, Normocephalic Oral: No Gingival or Mucosal Lesions/ Ulcerations, - - Endotracheal and OG tubes remain in place. Neck: Supple, No Nodes, Trachea Midline Lungs: No rhonchi, No wheeze, No rales, Diminished Cardiovascular: Regular rate, Regular Rhythm, Normal S1, Normal S2, Murmur, - - Currently in normal sinus rhythm on telemetry Abdomen: Soft, Non Tender, Hypoactive Bowel Sounds Extremities: No clubbing, No cyanosis, No edema Skin: - - No significant change from previous Musculoskeletal: No Tenderness to Palpation of Joints or Extremities Lymphatic: No Cervical, Supraclavicular, or Inguinal Adenopathy Neurological: Neuro grossly intact, - - Currently alert and interactive on the ventilator. Vital Signs Temp Pulse Resp BP Pulse Ox 38.2 C H 88 31 H 120/42 L 99 06/07/18 05:00 06/07/18 05:00 06/07/18 05:00 06/07/18 05:00 06/07/18 05:00 Oxygen Flow Rate (L/min) [4] 15 Oxygen Flow Rate (L/min) [3] 15 Oxygen Flow Rate (L/min) [2] 15 Oxygen Flow Rate (L/min) [1 ( 15 Initial Baseline)] Oxygen Flow Rate (L/min) 2 Oxygen Delivery Method [4] Ambu-Bag Oxygen Delivery Method [3] Ambu-Bag Oxygen Delivery Method [2] Ambu-Bag Oxygen Delivery Method [1 ( Ambu-Bag Initial Baseline)] Oxygen Delivery Method Mechanical Ventilator Weight: 175 lb 7.807 oz Body Mass Index (BMI) 27.1 Finger Stick Blood Glucose 95 Intake and Output for Last 24 Hours 06/05/18 06/06/18 06/07/18 23:59 23:59 23:59 Intake Total 1526 / 1526 4487.5 / 4487.5 513.8 / 513.8 Output Total 1600 / 1600 1070 / 1070 300 / 300 Balance -74 / -74 3417.5 / 3417.5 213.8 / 213.8 Labs (Last 48 Hours) 06/05/18 06/05/18 06/05/18 10:30 11:00 11:45 WBC RBC Hgb Hct MCV MCH MCHC RDW RDW Differential Plt Count MPV Neut % (Auto) Absolute Neuts (auto) Absolute Lymphs (auto) Total Counted Neutrophils % (Manual) Band Neutrophils % Lymphocytes % (Manual) Monocytes % (Manual) Metamyelocytes % Myelocytes % Nucleated RBC % Differential Comment Diff Path Review Absolute Retic PT 19.9 H INR 1.7 Sodium Potassium Chloride Carbon Dioxide Anion Gap BUN Creatinine Estim Creat Clear Calc Est GFR (MDRD) Af Amer Est GFR (MDRD) Non-Af BUN/Creatinine Ratio Glucose Calcium H. pylori IgG Antibody 0.16 POC Glucose 285 H Blood Type Antibody Screen Crossmatch 06/05/18 06/05/18 06/05/18 13:55 17:06 23:21 WBC RBC Hgb 7.6 L Hct 23.7 L MCV MCH MCHC RDW RDW Differential Plt Count MPV Neut % (Auto) Absolute Neuts (auto) Absolute Lymphs (auto) Total Counted Neutrophils % (Manual) Band Neutrophils % Lymphocytes % (Manual) Monocytes % (Manual) Metamyelocytes % Myelocytes % Nucleated RBC % Differential Comment Diff Path Review Absolute Retic PT INR Sodium Potassium Chloride Carbon Dioxide Anion Gap BUN Creatinine Estim Creat Clear Calc Est GFR (MDRD) Af Amer Est GFR (MDRD) Non-Af BUN/Creatinine Ratio Glucose Calcium H. pylori IgG Antibody POC Glucose 215 H 159 H Blood Type Antibody Screen Crossmatch 06/06/18 06/06/18 06/06/18 04:25 04:25 05:24 WBC 13.0 H RBC 2.43 L Hgb 7.2 L Hct 22.4 L MCV 92.2 MCH 29.6 MCHC 32.1 RDW 16.9 H RDW Differential 56.5 H Plt Count 28 L* MPV 12.1 H Neut % (Auto) Not Reportable Absolute Neuts (auto) 8.9 H Absolute Lymphs (auto) 2.85 Total Counted 100 Neutrophils % (Manual) 66 Band Neutrophils % 3 Lymphocytes % (Manual) 22 Monocytes % (Manual) 5 Metamyelocytes % Myelocytes % 4 H Nucleated RBC % 14.4 H Differential Comment Diff Path Review Reviewed Absolute Retic 1.87 PT INR Sodium 148 H Potassium 4.1 Chloride 117 H Carbon Dioxide 18.0 L Anion Gap 13 BUN 115 H* Creatinine 2.19 H Estim Creat Clear Calc 25.09 Est GFR (MDRD) Af Amer 38 L Est GFR (MDRD) Non-Af 31 L BUN/Creatinine Ratio 52.5 H Glucose 208 H Calcium 8.2 L H. pylori IgG Antibody POC Glucose 161 H Blood Type Antibody Screen Crossmatch 06/06/18 06/06/18 06/06/18 07:15 11:19 14:00 WBC 20.0 H RBC 2.98 L Hgb 9.0 L Hct 27.4 L MCV 91.9 MCH 30.2 MCHC 32.8 RDW 16.2 H RDW Differential 53.3 H Plt Count 35 L* MPV 11.7 Neut % (Auto) Absolute Neuts (auto) Absolute Lymphs (auto) Total Counted Neutrophils % (Manual) Band Neutrophils % Lymphocytes % (Manual) Monocytes % (Manual) Metamyelocytes % Myelocytes % Nucleated RBC % Differential Comment COMMENT Diff Path Review May foll Absolute Retic PT INR Sodium Potassium Chloride Carbon Dioxide Anion Gap BUN Creatinine Estim Creat Clear Calc Est GFR (MDRD) Af Amer Est GFR (MDRD) Non-Af BUN/Creatinine Ratio Glucose Calcium H. pylori IgG Antibody POC Glucose 198 H Blood Type AB POSITIVE Antibody Screen NEGATIVE Crossmatch See Detail 06/06/18 06/07/18 06/07/18 17:04 00:11 03:50 WBC 16.5 H RBC 2.90 L Hgb 8.7 L Hct 26.9 L MCV 92.8 MCH 30.0 MCHC 32.3 RDW 16.4 H RDW Differential 54.5 H Plt Count 23 L* MPV TNP Neut % (Auto) Not Reportable Absolute Neuts (auto) 13.6 H Absolute Lymphs (auto) 2.48 Total Counted 100 Neutrophils % (Manual) 78 H Band Neutrophils % 4 Lymphocytes % (Manual) 15 L Monocytes % (Manual) 2 Metamyelocytes % 1 Myelocytes % Nucleated RBC % 19.8 H Differential Comment Diff Path Review May foll Absolute Retic 3.27 PT INR Sodium Potassium Chloride Carbon Dioxide Anion Gap BUN Creatinine Estim Creat Clear Calc Est GFR (MDRD) Af Amer Est GFR (MDRD) Non-Af BUN/Creatinine Ratio Glucose Calcium H. pylori IgG Antibody POC Glucose 216 H 167 H Blood Type Antibody Screen Crossmatch 06/07/18 06/07/18 03:50 05:42 WBC RBC Hgb Hct MCV MCH MCHC RDW RDW Differential Plt Count MPV Neut % (Auto) Absolute Neuts (auto) Absolute Lymphs (auto) Total Counted Neutrophils % (Manual) Band Neutrophils % Lymphocytes % (Manual) Monocytes % (Manual) Metamyelocytes % Myelocytes % Nucleated RBC % Differential Comment Diff Path Review Absolute Retic PT INR Sodium 152 H Potassium 3.4 L Chloride 120 H Carbon Dioxide 18.0 L Anion Gap 14 BUN 107 H* Creatinine 2.21 H Estim Creat Clear Calc 24.86 Est GFR (MDRD) Af Amer 37 L Est GFR (MDRD) Non-Af 31 L BUN/Creatinine Ratio 48.4 H Glucose 200 H Calcium 8.0 L H. pylori IgG Antibody POC Glucose 202 H Blood Type Antibody Screen Crossmatch Microbiology 06/03/18 15:20 Urine Catheter - [place] Urine Culture - Final Enterococcus faecalis 06/03/18 14:55 Blood Culture (Wb) - Left Wrist Blood Culture - Preliminary No growth in 48 hours. 06/03/18 15:05 Blood Culture (Wb) - Anticubital Right Blood Culture - Preliminary No growth in 48 hours. 06/02/18 22:30 Sputum, Expectorated/Coughed Gram Stain - Final 06/02/18 22:30 Sputum, Expectorated/Coughed Respiratory Culture - Final Mixed normal respiratory betty. No Streptococcus pneumoniae, beta-hemolytic Streptococcus or Staphylococcus aureus isolated. Clinical Impression(s) from Imaging Studies Brain CT 06/02/18 01:25 IMPRESSION: No acute findings. Individualized dose optimization techniques were used for this CT. at 0159 Reported and signed by: Geoff Joaquin MD Electronically Signed: Geoff Joaquin, at 1:58 EST Tel , Service support , Cervical Spine CT 06/02/18 01:25 IMPRESSION: No fracture or dislocation of the cervical spine. Individualized dose optimization techniques were used for this CT. at 0206 Reported and signed by: Geoff Joaquin MD Electronically Signed: Geoff Joaquin, at 2:05 EST Tel , Service support , Chest X-Ray 06/02/18 01:35 IMPRESSION: Low lung volumes with resultant hypoventilatory changes. No definite pneumonia or edema. Interval sternotomy probably for heart valve replacement. at 0154 Reported and signed by: Geoff Joaquin MD Electronically Signed: Geoff Joaquin, at 1:53 EST Tel , Service support , Lung Scan-VQ NM 06/02/18 13:55 IMPRESSION: Low quality VQ scan, most consistent with low probability of pulmonary embolism. Electronically Signed: Kenny Greene MD at 16:31 EST , Service support , Chest X-Ray 06/02/18 14:28 IMPRESSION: Moderate right pleural effusion with overlying atelectasis. Electronically Signed: Juan Ruiz, at 15:40 EST Tel , Service support , Chest CT 06/02/18 21:14 IMPRESSION: Small bilateral pleural effusions with overlying atelectasis. Sclerotic osseous lesions which are suspicious for metastasis. Electronically Signed: Juan Ruiz, at 22:14 EST Tel , Service support , Chest X-Ray 06/02/18 22:26 IMPRESSION: Mild left basilar atelectasis status post endotracheal tube placement Electronically Signed: Norbert Snyder MD at 23:18 EST , Service support , Abdomen CT 06/04/18 12:33 IMPRESSION: Bilateral hydronephrosis right greater than left with bilateral hydroureter. Diffusely thickened bladder wall. Electronically Signed: Javier Unger, at 15:28 EST , Service support , Nephrostomy Tube Change 06/05/18 07:41 IMPRESSION: 1. The percutaneous right nephrostomy catheter is in good position with the pigtail portion located in the right renal pelvis. 2. The conscious sedation protocol was followed. Electronically Signed: Javier Unger, at 14:33 EST , Service support , Medical Necessity - Tobacco Use Smoking Status: Former smoker Assessment/Plan All Active Problems (Last Reviewed 06/05/18 @ 07:40 by Dangelo Alvarado MD) Atrial fibrillation and flutter (Acute) Fever (Acute) Anemia (Acute) Thrombocytopenia (Acute) Bilateral hydronephrosis (Acute) RECOMMENDATIONS: 1. We will place 2 units of packed red blood cells on hold, should the need arise. 2. Transfuse additional platelets today. 3. Check PF 4 antibody 4. Check coagulation profile, fibrinogen and d-dimer level. 5. Potassium repletion 6. Start tube feeds today and increase free water flushes, given rising sodium level. 7. Plans for transesophageal echocardiogram on Saturday. 8. Continue twice daily PPI therapy. 9. Continue antibiotics per ID recommendations. IMPRESSIONS: 1. Acute hypoxemic respiratory failure The exact etiology for the patient's clinical decompensation is unclear. However, the patient was noted to be tachycardic at the time when he was initially beginning to decompensate. It is unclear whether this was atrial fibrillation or a sinus tachycardia. Given that the patient has paroxysmal atrial fibrillation and underlying valvular heart disease, it is possible that his decompensation may have been heart rate related. In addition, increased metabolic demands from the patient's sepsis and fevers also likely contributed. He is chronically anticoagulated with Eliquis on an outpatient basis. The patient's CT chest only revealed evidence of small bilateral pleural effusions without focal infiltrates. His FiO2 was able to be quickly weaned. We will plan to continue daily paired spontaneous awakening and breathing trials. 2. Severe sepsis with evidence of bilateral hydronephrosis/hydroureter The patient appears to be septic from a urinary source of infection. CT abdomen did reveal evidence of bilateral hydronephrosis, for which the patient underwent a percutaneous nephrostomy tube placement on June 05. Antibiotics will be continued per infectious diseases recommendations. There are tentative plans to perform a CALI on Saturday to ensure that the patient does not have underlying endocarditis. 3. Paroxysmal atrial fibrillation with RVR/history of aortic valve replacement Cardiology following to assist with management. The patient is currently on both amiodarone and Cardizem. 4. Anemia secondary to upper GI bleed/thrombocytopenia The patient does have known normocytic anemia, which appears to have worsened over the course of this hospital stay. The patient did require eventual transfusion of packed red blood cells. Upper endoscopy performed at the bedside did reveal evidence of GI ulcers. However, there was no active bleeding. This will require the permanent discontinuation of the patient's systemic anticoagulation. He will be continued on twice daily PPI therapy and monitored for any ongoing blood loss. We will plan to recheck the patient's H&H this afternoon. 2 units of additional packed red blood cells have been placed on hold. In addition, the patient does have worsening thrombocytopenia. There is some clinical concern for potential HIT versus a sepsis induced syndrome. Although the patient's heparin-containing products have been discontinued. HIT workup is in process. Although of less concern, we will also perform a preliminary DIC workup. Platelets will also be transfused, given the patient's high risk for rebleeding at his gastric ulcer sites. 5. Metastatic prostate cancer/anemia/chronic kidney disease/hypertension/hyperlipidemia/depression/generalized deconditioning and debility Complicates care, management, recovery and prognosis. Likely okay to continue home medications. Physical therapy to once again work with patient once medically stabilized. Recommend formal goals of care discussion with the patient and his family. TIME: 40 minutes of critical care time, independent of procedures, was spent addressing the patient's acute hypoxemic respiratory failure, severe sepsis, paroxysmal atrial fibrillation with a rapid ventricular rate, metastatic prostate cancer, anemia, upper gastrointestinal bleed, review of all data and collaboration with the care team. ([id number]) Code Visit [id number]: [id number] Critical care first hour
[2018-06-07] MEDS: Vital AF 1.2 Cal Liquid 1,000 ML 50 ML GT (07:01)
[2018-06-07 07:10] LABS: International Normalized Ratio 1.7; Prothrombin Time (Protime)PT. 19.6 SECONDS (11.7-14.9)
[2018-06-07 07:11] LABS: Fibrinogen 156 mg/dl (203-444); Partial Thromboplast Time 30.8 Seconds (24.1-36.2)
--- NOTE | 2018-06-07 07:34 | PCM.PN.HOSP ---
Patient Problems: Active and Suspected Problems (Last Reviewed 06/05/18 @ 07:40 by Dangelo Alvarado MD) Atrial fibrillation and flutter (Acute) Fever (Acute) Anemia (Acute) Thrombocytopenia (Acute) Bilateral hydronephrosis (Acute) Subjective: Patient was seen and examined. Still having fevers. In normal sinus rhythm. Remains on amiodarone drip and Cardizem Objective: Physical exam: General: awake, follows with the eyes and turns the head, intubated, on mechanical ventilator HEENT: Atraumatic, PERRLA, EOMI, Normocephalic Oral: Dry Mucosa Neck: Supple Lungs: Normal air movement, Diminished Cardiovascular: Regular rate, Regular Rhythm, Normal S1, Normal S2, No murmurs Abdomen: Bowel Sounds Present, Soft, Non Tender, Non-Distended, No Hepato-splenomegaly, - - Crump catheter in situ Bilateral nephrostomy tubes Extremities: No edema Skin: No rashes Musculoskeletal: No Tenderness to Palpation of Joints or Extremities Lymphatic: No Cervical, Supraclavicular, or Inguinal Adenopathy Neurological: Cranial nerves II-XII grossly intact, Neuro grossly intact Psych/Mental Status: Normal Affect, Appropriate Vitals/I&O's: Vital Signs Temp Pulse Resp BP Pulse Ox 100.8 F H 90 20 H 118/43 L 99 06/07/18 07:00 06/07/18 07:00 06/07/18 07:00 06/07/18 07:00 06/07/18 07:00 Oxygen Flow Rate (L/min) [4] 15 Oxygen Flow Rate (L/min) [3] 15 Oxygen Flow Rate (L/min) [2] 15 Oxygen Flow Rate (L/min) [1 ( 15 Initial Baseline)] Oxygen Flow Rate (L/min) 2 Oxygen Delivery Method [4] Ambu-Bag Oxygen Delivery Method [3] Ambu-Bag Oxygen Delivery Method [2] Ambu-Bag Oxygen Delivery Method [1 ( Ambu-Bag Initial Baseline)] Oxygen Delivery Method Mechanical Ventilator Weight: 79.6 kg Body Mass Index (BMI) 27.1 Finger Stick Blood Glucose 95 Intake and Output for Last 24 Hours 06/05/18 06/06/18 06/07/18 23:59 23:59 23:59 Intake Total 1526 / 1526 4487.5 / 4487.5 543.8 / 543.8 Output Total 1600 / 1600 1070 / 1070 300 / 300 Balance -74 / -74 3417.5 / 3417.5 243.8 / 243.8 Microbiology Past 72 Hours 06/03/18 15:20 Urine Catheter - [place] Urine Culture - Final Enterococcus faecalis 06/03/18 14:55 Blood Culture (Wb) - Left Wrist Blood Culture - Preliminary No growth in 48 hours. 06/03/18 15:05 Blood Culture (Wb) - Anticubital Right Blood Culture - Preliminary No growth in 48 hours. 06/02/18 22:30 Sputum, Expectorated/Coughed Gram Stain - Final 06/02/18 22:30 Sputum, Expectorated/Coughed Respiratory Culture - Final Mixed normal respiratory betty. No Streptococcus pneumoniae, beta-hemolytic Streptococcus or Staphylococcus aureus isolated. 06/02/18 01:55 Urine, Clean Catch Urine Culture - Final GPC Poss Enterococcus sp 06/02/18 01:10 Blood Culture (Wb) - Right Forearm Blood Culture - Preliminary No growth in 48 hours. 06/02/18 01:24 Blood Culture (Wb) - Anticubital Left Blood Culture - Preliminary No growth in 48 hours. Laboratory Results 06/05/18 11:45: H. pylori IgG Antibody 0.16 06/06/18 04:25: Diff Path Review Reviewed 06/06/18 07:15: Blood Type AB POSITIVE, Antibody Screen NEGATIVE, Crossmatch See Detail 06/06/18 11:19: POC Glucose 198 H 06/06/18 14:00: WBC 20.0 H, RBC 2.98 L, Hgb 9.0 L, Hct 27.4 L, MCV 91.9, MCH 30.2, MCHC 32.8, RDW 16.2 H, RDW Differential 53.3 H, Plt Count 35 L*, MPV 11.7, Differential Comment COMMENT, Diff Path Review May 06/06/18 17:04: POC Glucose 216 H 06/07/18 00:11: POC Glucose 167 H 06/07/18 03:50: WBC 16.5 H, RBC 2.90 L, Hgb 8.7 L, Hct 26.9 L, MCV 92.8, MCH 30.0, MCHC 32.3, RDW 16.4 H, RDW Differential 54.5 H, Plt Count 23 L*, MPV TNP, Neut % (Auto) Not Reportable, Absolute Neuts (auto) 13.6 H, Absolute Lymphs (auto) 2.48, Total Counted 100, Neutrophils % (Manual) 78 H, Band Neutrophils % 4, Lymphocytes % (Manual) 15 L, Monocytes % (Manual) 2, Metamyelocytes % 1, Nucleated RBC % 19.8 H, Diff Path Review July, Absolute Retic 3.27 06/07/18 03:50: Sodium 152 H, Potassium 3.4 L, Chloride 120 H, Carbon Dioxide 18.0 L, Anion Gap 14, BUN 107 H*, Creatinine 2.21 H, Estim Creat Clear Calc 24.86, Est GFR (MDRD) Af Amer 37 L, Est GFR (MDRD) Non-Af 31 L, BUN/Creatinine Ratio 48.4 H, Glucose 200 H, Calcium 8.0 L 06/07/18 05:42: POC Glucose 202 H 06/07/18 06:50: Heparin-induced Plt Ab Pending 06/07/18 06:50: PT Pending, INR Pending, APTT Pending, Fibrinogen Pending, D-Dimer Quant (PE/DVT) Pending Current Medications Acetaminophen (Tylenol Liquid) 650 mg GT Q6H PRN PRN PRN Reason: Fever, headache, pain Last Admin: 06/06/18 16:13 Dose: 650 mg Atorvastatin Calcium (Lipitor) 10 mg GT QHS [facility] Last Admin: 06/06/18 21:50 Dose: 10 mg Chlorhexidine Gluconate () 15 ml PO BID [facility] Last Admin: 06/06/18 22:08 Dose: 15 ml Chlorhexidine Gluconate () 1 each TOPICAL DAILY [facility] Last Admin: 06/07/18 03:57 Dose: 1 each Duloxetine HCl (Cymbalta) 30 mg PO DAILY [facility] Last Admin: 06/06/18 09:01 Dose: 30 mg Sodium Chloride () 250 mls @ 15 mls/hr IV .[id number] PRN PRN Reason: SALINE FLUSH Last Admin: 06/06/18 17:05 Dose: 15 mls/hr Propofol (Diprivan) 1,000 mg in 100 mls @ 4.596 mls/hr CONT INF .Q12H [facility] Last Admin: 06/06/18 23:31 Dose: Not Given Piperacillin Sod/Tazobactam (Sod 3.375 gm/ Sodium Chloride) 50 mls @ 12.5 mls/hr IV Q8 [facility] Last Admin: 06/07/18 05:44 Dose: 12.5 mls/hr Vancomycin IV Pharmacy to Dose (1 ea/ Sodium Chloride) 500 mls @ 250 mls/hr IV X1 PRN; Protocol PRN Reason: Rx to Dose Fentanyl () 100 mls @ 2.5 mls/hr IV .Q40H [facility] Last Admin: 06/06/18 16:11 Dose: 2.5 mls/hr Pantoprazole Sodium 40 mg/ (Sodium Chloride) 110 mls @ 330 mls/hr IV Q12 [facility] Last Admin: 06/06/18 21:51 Dose: 330 mls/hr Amiodarone HCl 360 mg/ (Dextrose) 200 mls @ 16.67 mls/hr CONT INF .Q12H [facility] Last Admin: 06/07/18 03:55 Dose: 16.67 mls/hr Enteral Nutritional Formula (Vital Af 1.2 Abilio Liquid) 1,000 mls @ 50 mls/hr GT .Q20H [facility] Last Admin: 06/07/18 07:01 Dose: 50 mls/hr Vancomycin HCl 1,250 mg/ (Sodium Chloride) 275 mls @ 167 mls/hr IV Q24H [facility] Last Admin: 06/07/18 02:59 Dose: 167 mls/hr Diltiazem HCl 125 mg/ Dextrose 125 mls @ 5 mls/hr IV .Q25H [facility] Last Admin: 06/06/18 08:48 Dose: 5 mls/hr Insulin Glargine (Lantus (Bkc)) 20 units SC 06,18 [facility] Last Admin: 06/07/18 05:44 Dose: 20 u Insulin Human Lispro (Humalog Kwikpen (Bkc)) 0 unit SC Q6 [facility]; Protocol Last Admin: 06/07/18 05:44 Dose: 3 u Magnesium Hydroxide (Milk Of Magnesia) 30 ml GT DAILY PRN PRN Reason: Constipation Ondansetron HCl (Zofran) 4 mg IV Q6H PRN PRN PRN Reason: NAUSEA/VOMITING Polyethylene Glycol (Miralax) 17 gm GT BID [facility] Last Admin: 06/06/18 21:50 Dose: 17 gm Senna/Docusate Sodium (Senokot-S, Marianne-Colace) 2 tablet GT BID [facility] Last Admin: 06/06/18 21:50 Dose: 2 tablet Sodium Chloride () 5 - 15 ml IV UD PRN PRN Reason: SALINE FLUSH Last Admin: 06/07/18 03:56 Dose: 10 ml Sucralfate (Carafate) 1 gm GT TID [facility] Last Admin: 06/07/18 05:44 Dose: 1 gm Medical Necessity - Tobacco Use Smoking Status: Former smoker Assessment/Plan All Active Problems (Last Reviewed 06/05/18 @ 07:40 by Dangelo Alvarado MD) Atrial fibrillation and flutter (Acute) Fever (Acute) Anemia (Acute) Thrombocytopenia (Acute) Bilateral hydronephrosis (Acute) 77-year-old male with past medical history of metastatic prostate cancer to the bone, history of aortic valve replacement with bioprosthetic valve, CKD, hypertension, BPH admitted on 06/02/18 with altered mental status initially managed as sepsis secondary to acute cystitis. Patient was found to have gone into respiratory failure resulting in intubation and transfer to the ICU 1. Acute respiratory failure, unclear etiology, likely metabolically related, remains intubated, on mechanical ventilator Bilingual Spanish [employer] consulted, will continue per recommendations 2. A. fib/A. flutter with RVR, history of paroxysmal atrial fibrillation, in NSR, on IV amiodarone and cardizem Heparin drip held on account of GI bleed. 3. 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 Acute GI bleed status post EGD, secondary to gastric and duodenal ulcer, on IV PPI and sucralfate, will monitor for further bleeding 5. Sepsis secondary to enterococcus UTI, possible CAP, on Zosyn and Vancomycin, WBC count very slightly improved Blood cultures are negative. Repeat blood and urine cultures planned as well as CALI 6. Complicated UTI secondary to bilateral hydronephrosis, history of metastatic prostate CA S/p nephrostomy tubes 7. Thrombocytopenia, likely heparin related, off heparin, Possible DIC, although patient is clinically looking improved. HIT antibody pending, and platelet 23,000 today, will continue to monitor off heparin 8. JUAN JOSE on CKD stage 3, Cr is slightly worse, secondary to dehydration/sepsis, will continue to monitor 9. Hypertension, controlled, on metoprolol 12.5mg GT BID, will continue to monitor 10. Metastatic prostate cancer with metastases to the bone, never treated 11. s/p aortic valve replacement with bioprosthetic valve 12. BPH s/p crump catheter 13. DVT PPx- SCDs - Heparin on hold for GI bleed Code Visit Inpatient E&M: 48264 Subs Hosp L3
[2018-06-07 07:36] LABS: D-Dimer Quantitative (DVT/PE) > 20.00 FEU/ug/m (0.27-0.49)
[2018-06-07] MEDS: Chlorhexidine 15 ML PO ×2 (08:08→22:15)
--- NOTE | 2018-06-07 08:45 | PN.SURG_ITS ---
Patient Problems: Active and Suspected Problems (Last Reviewed 06/05/18 @ 07:40 by Dangelo Alvaardo MD) Atrial fibrillation and flutter (Acute) Fever (Acute) Anemia (Acute) Thrombocytopenia (Acute) Bilateral hydronephrosis (Acute) Subjective: Patient remains intubated. He does not complain of any abdominal pain. - Physical Exam General: Alert, Cooperative Abdomen: Soft, Non Tender, Non-Distended Vital Signs Temp Pulse Resp BP Pulse Ox 100.9 F H 90 21 H 118/43 L 99 06/07/18 07:48 06/07/18 07:48 06/07/18 07:48 06/07/18 07:48 06/07/18 07:48 Oxygen Flow Rate (L/min) [4] 15 Oxygen Flow Rate (L/min) [3] 15 Oxygen Flow Rate (L/min) [2] 15 Oxygen Flow Rate (L/min) [1 ( 15 Initial Baseline)] Oxygen Flow Rate (L/min) 2 Oxygen Delivery Method [4] Ambu-Bag Oxygen Delivery Method [3] Ambu-Bag Oxygen Delivery Method [2] Ambu-Bag Oxygen Delivery Method [1 ( Ambu-Bag Initial Baseline)] Oxygen Delivery Method Mechanical Ventilator Weight: 175 lb 7.807 oz Body Mass Index (BMI) 27.1 Finger Stick Blood Glucose 95 Intake and Output for Last 24 Hours 06/05/18 06/06/18 06/07/18 23:59 23:59 23:59 Intake Total 1526 / 1526 4487.5 / 4487.5 543.8 / 543.8 Output Total 1600 / 1600 1070 / 1070 300 / 300 Balance -74 / -74 3417.5 / 3417.5 243.8 / 243.8 Microbiology Past 72 Hours 06/03/18 15:20 Urine Culture - Final Urine Catheter - [place] Enterococcus faecalis 06/03/18 14:55 Blood Culture - Preliminary Blood Culture (Wb) - Left Wrist No growth in 48 hours. 06/03/18 15:05 Blood Culture - Preliminary Blood Culture (Wb) - Anticubital Right No growth in 48 hours. 06/02/18 22:30 Gram Stain - Final Sputum, Expectorated/Coughed Respiratory Culture - Final Mixed normal respiratory betty. No Streptococcus pneumoniae, beta-hemolytic Streptococcus or Staphylococcus aureus isolated. 06/02/18 01:55 Urine Culture - Final Urine, Clean Catch GPC Poss Enterococcus sp 06/02/18 01:10 Blood Culture - Preliminary Blood Culture (Wb) - Right Forearm No growth in 48 hours. 06/02/18 01:24 Blood Culture - Preliminary Blood Culture (Wb) - Anticubital Left No growth in 48 hours. Laboratory Tests Past 24 Hrs 06/05/18 06/06/18 06/06/18 11:45 04:25 07:15 WBC RBC Hgb Hct MCV MCH MCHC RDW RDW Differential Plt Count MPV Neut % (Auto) Absolute Neuts (auto) Absolute Lymphs (auto) Total Counted Neutrophils % (Manual) Band Neutrophils % Lymphocytes % (Manual) Monocytes % (Manual) Metamyelocytes % Nucleated RBC % Differential Comment Diff Path Review Reviewed Absolute Retic PT INR APTT Fibrinogen D-Dimer Quant (PE/DVT) Sodium Potassium Chloride Carbon Dioxide Anion Gap BUN Creatinine Estim Creat Clear Calc Est GFR (MDRD) Af Amer Est GFR (MDRD) Non-Af BUN/Creatinine Ratio Glucose Calcium Heparin-induced Plt Ab H. pylori IgG Antibody 0.16 Blood Type AB POSITIVE Antibody Screen NEGATIVE Crossmatch See Detail 06/06/18 06/06/18 06/07/18 07:15 14:00 03:50 WBC 20.0 H 16.5 H RBC 2.98 L 2.90 L Hgb 9.0 L 8.7 L Hct 27.4 L 26.9 L MCV 91.9 92.8 MCH 30.2 30.0 MCHC 32.8 32.3 RDW 16.2 H 16.4 H RDW Differential 53.3 H 54.5 H Plt Count 35 L* 23 L* MPV 11.7 TNP Neut % (Auto) Not Reportable Absolute Neuts (auto) 13.6 H Absolute Lymphs (auto) 2.48 Total Counted 100 Neutrophils % (Manual) 78 H Band Neutrophils % 4 Lymphocytes % (Manual) 15 L Monocytes % (Manual) 2 Metamyelocytes % 1 Nucleated RBC % 19.8 H Differential Comment COMMENT Diff Path Review May foll May foll Absolute Retic 3.27 PT INR APTT Fibrinogen D-Dimer Quant (PE/DVT) Sodium Potassium Chloride Carbon Dioxide Anion Gap BUN Creatinine Estim Creat Clear Calc Est GFR (MDRD) Af Amer Est GFR (MDRD) Non-Af BUN/Creatinine Ratio Glucose Calcium Heparin-induced Plt Ab H. pylori IgG Antibody Blood Type Antibody Screen Crossmatch See Detail 06/07/18 06/07/18 06/07/18 03:50 06:50 06:50 WBC RBC Hgb Hct MCV MCH MCHC RDW RDW Differential Plt Count MPV Neut % (Auto) Absolute Neuts (auto) Absolute Lymphs (auto) Total Counted Neutrophils % (Manual) Band Neutrophils % Lymphocytes % (Manual) Monocytes % (Manual) Metamyelocytes % Nucleated RBC % Differential Comment Diff Path Review Absolute Retic PT 19.6 H INR 1.7 APTT 30.8 Fibrinogen 156 L D-Dimer Quant (PE/DVT) > 20.00 H* Sodium 152 H Potassium 3.4 L Chloride 120 H Carbon Dioxide 18.0 L Anion Gap 14 BUN 107 H* Creatinine 2.21 H Estim Creat Clear Calc 24.86 Est GFR (MDRD) Af Amer 37 L Est GFR (MDRD) Non-Af 31 L BUN/Creatinine Ratio 48.4 H Glucose 200 H Calcium 8.0 L Heparin-induced Plt Ab Pending H. pylori IgG Antibody Blood Type Antibody Screen Crossmatch POC Glucose 06/07/18 06/07/18 06/06/18 05:42 00:11 17:04 POC Glucose 202 H 167 H 216 H 06/06/18 11:19 POC Glucose 198 H Medical Necessity - Tobacco Use Smoking Status: Former smoker Assessment/Plan All Active Problems (Last Reviewed 06/05/18 @ 07:40 by Dangelo Alvarado MD) Atrial fibrillation and flutter (Acute) Fever (Acute) Anemia (Acute) Thrombocytopenia (Acute) Bilateral hydronephrosis (Acute) 77-year-old male with duodenal and gastric ulcer 1. Patient receiving blood products today. No evidence of active GI bleeding. Patient was started on trickle tube feeds. 2. Continue PPI and maintaining his coagulation cascade as well as possible. Heber Mccurdy MD Pager: [facility] [address] [place] [address], [address] [place] [address] Office:
[2018-06-07 09:02] LABS: Anisocytosis 1+; Ovalocyte RARE; Schistocytes 1+
--- NOTE | 2018-06-07 09:39 | CM.UR ---
Participated in interdisciplinary rounds this am. Remains on vent. Family at bedside asking questions which Dr. Nicholson answered to his satisfaction. Discussed plan for CALI on Saturday and possible Left neph tube on Saturday as well. He has been placed on TCU as will probably need SNF placement at discharge. Case management will continue to follow for discharge planning. Josefina Chowdary RN, CCM.
[2018-06-07] MEDS: Senna/Docusate Sodium 1 Tablet 2 TABLET GT ×2 (09:42→21:51)
[2018-06-07] MEDS: Polyethylene Glycol 3350 17 GM PACKET GT ×2 (09:42→21:51)
[2018-06-07] MEDS: Potassium Chloride 10mEq/100mL 10 MEQ/100 ML IV.SOLN. 100 MEQ IV BOLUS ×4 (09:42→13:47)
[2018-06-07] MEDS: DULoxetine Hcl 30 MG Capsule PO (09:43)
[2018-06-07 11:15] LABS: Bedside Glucose 219 mg/dL (70-110)
--- NOTE | 2018-06-07 12:30 | PCM.PN.BLA ---
Progress Note Converted to normal sinus rhythm overnight. Switch amiodarone and diltiazem to p.o. Continues to have severe thrombocytopenia. Anemic. Remains intubated for VDRF.
[2018-06-07] MEDS: Amiodarone 200 MG Tablet PO ×2 (13:48→21:50)
[2018-06-07] MEDS: dilTIAZem 30 MG Tablet PO ×3 (13:49→23:56)
[2018-06-07] MEDS: fentaNYL drip 100 ML 2.5 MCG IV (13:49)
[2018-06-07 14:52] LABS: Hematocrit 25.7 % (40-54); Hemoglobin 8.2 g/dl (13.0-16.5); Mean Corp Hgb Conc 31.9 g/gl (32-36); Mean Corpuscular Hgb 29.6 pg (27.0-32.0); Mean Corpuscular Volume 92.8 fL (80-94); Mean Platelet Vol. 10.7 fl (6.2-12.0); RBC Distribution Width CV 16.5 % (11.6-14.6); RBC Distribution Width SD 54.3 fl (35.1-43.9); Red Blood Count 2.77 M/mm3 (4.6-6.2); White Blood Count 17.9 K/mm3 (4.4-11.0)
[2018-06-07 14:53] LABS: Differential Indicated MANUAL DIFF; POSITIVE COUNT YES; POSITIVE DIFFERENTIAL NO; POSITIVE MORPHOLOGY YES; Platelet Count 43 K/mm3 (150-450)
[2018-06-07 14:54] LABS: Absolute Nucleated RBC Count 4.28 10^3/uL (0-5); NRBC Flagged by Analyzer 23.8 % (0-5)
[2018-06-07 15:12] LABS: Lymphocyte 16 % (19-41); Metamyelocyte 1 % (0-1); Monocyte 4 % (0-10); Myelocyte 3 (0-0); Neutrophil-Band 1 % (0-5); Neutrophil-Segmented 75 % (47-70); Total Cells Counted 100 (MANUAL DIFF)
[2018-06-07 15:14] LABS: Anisocytosis 1+; Hypochromasia 2+; Microcytosis RARE; Platelet Estimate MKD DEC (ADEQ); Polychromasia 2+; Schistocytes 1+
[2018-06-07 15:15] LABS: Ovalocyte RARE
[2018-06-07 15:16] LABS: Absolute Lymphocyte Count 2.86 X10^3/ul (0.83-4.51); Absolute Neutrophil Count 13.6 X10^3/uL (2.0-7.7); Differential Comment SCANNED
[2018-06-07 16:51] LABS: Bedside Glucose 202 mg/dL (70-110)
[2018-06-07] MEDS: Atorvastatin Calcium 10 MG Tablet GT (21:50)
[2018-06-08] VITALS (37 sets, daily range): BP systolic 107–126; BP diastolic 39–57; PULSE 80–153; RESP 14–33; TEMP 38.1–38.9; O2SAT 90–115
[2018-06-08 00:01] LABS: Bedside Glucose 195 mg/dL (70-110)
[2018-06-08 03:49] LABS: Vancomycin, Trough Level 24.2 ug/mL (5.0-15.0)
--- NOTE | 2018-06-08 04:13 | PCM.RX.CS ---
Consult Pharmacy has been consulted to manage selected antiobiotic: Vancomycin Type of Consult: Follow-up Suspected Infection: Pneumonia Prior Doses of Antibiotics Received/Current Regimen: Medications Discontinued Medications Vancomycin HCl 1,000 mg/ (Dextrose) 200 mls @ 200 mls/hr IV Q24H [facility] Last Admin: 06/05/18 03:23 Dose: 200 mls/hr Vancomycin HCl 1,250 mg/ (Sodium Chloride) 275 mls @ 167 mls/hr IV Q24H [facility] Last Admin: 06/08/18 03:59 Dose: Not Given Labs: Sodium 152 mmol/L (136-145) H 06/07/18 03:50 Potassium 3.4 mmol/L (3.5-5.1) L 06/07/18 03:50 Chloride 120 mmol/L (98-107) H 06/07/18 03:50 Carbon Dioxide 18.0 mmol/L (21.0-32.0) L 06/07/18 03:50 Anion Gap 14 (5-15) 06/07/18 03:50 BUN 107 mg/dL (7-18) H* 06/07/18 03:50 Creatinine 2.21 mg/dL (0.70-1.30) H 06/07/18 03:50 Est GFR (MDRD) Af Amer 37 mL/min (>60) L 06/07/18 03:50 Est GFR (MDRD) Non-Af 31 mL/min (>60) L 06/07/18 03:50 BUN/Creatinine Ratio 48.4 RATIO (10-20) H 06/07/18 03:50 Glucose 200 mg/dL (74-106) H 06/07/18 03:50 Vancomycin Trough 24.2 ug/mL (5.0-15.0) H 06/08/18 03:00 Microbiology: Microbiology 06/02/18 01:24 Blood Culture (Wb) - Anticubital Left Blood Culture - Final No growth in 5 days. 06/02/18 01:10 Blood Culture (Wb) - Right Forearm Blood Culture - Final No growth in 5 days. 06/03/18 15:20 Urine Catheter - [place] Urine Culture - Final Enterococcus faecalis 06/03/18 14:55 Blood Culture (Wb) - Left Wrist Blood Culture - Preliminary No growth in 48 hours. 06/03/18 15:05 Blood Culture (Wb) - Anticubital Right Blood Culture - Preliminary No growth in 48 hours. 06/02/18 22:30 Sputum, Expectorated/Coughed Gram Stain - Final 06/02/18 22:30 Sputum, Expectorated/Coughed Respiratory Culture - Final Mixed normal respiratory betty. No Streptococcus pneumoniae, beta-hemolytic Streptococcus or Staphylococcus aureus isolated. 06/02/18 01:55 Urine, Clean Catch Urine Culture - Final GPC Poss Enterococcus sp 06/02/18 22:30 Mucosa - Nose Respiratory Panel (PCR) - Final 06/02/18 02:15 Mucosa - Nose Influenza Types A,B Direct FA (CHELE) - Final Weight used for dosin.6 kg Estimated Creatinine Clearance: 25 Goal Trough: 15-20 mcg/mL Pharmacy Plan for Drug Dosing: Trough level on 24.2 was higher than target range of 15-20. Held the 06/08/18 0330 dose. Will draw a random level in 12 hours and re-calculate continuing dose from that level. Pharmacy Service will continue to monitor and adjust dosing as required. Follow-Up Labs: Trough Vancomycin - random Labs to be done on [date and time ordered]: 06/08/18 @1500
--- NOTE | 2018-06-08 04:17 | PHA.PHARE_ITS ---
Consult Pharmacy has been consulted to manage selected antiobiotic: Vancomycin Type of Consult: Follow-up Suspected Infection: Pneumonia Prior Doses of Antibiotics Received/Current Regimen: Medications Discontinued Medications Vancomycin HCl 1,000 mg/ (Dextrose) 200 mls @ 200 mls/hr IV Q24H [facility] Last Admin: 06/05/18 03:23 Dose: 200 mls/hr Vancomycin HCl 1,250 mg/ (Sodium Chloride) 275 mls @ 167 mls/hr IV Q24H [facility] Last Admin: 06/08/18 03:59 Dose: Not Given Labs: Sodium 152 mmol/L (136-145) H 06/07/18 03:50 Potassium 3.4 mmol/L (3.5-5.1) L 06/07/18 03:50 Chloride 120 mmol/L (98-107) H 06/07/18 03:50 Carbon Dioxide 18.0 mmol/L (21.0-32.0) L 06/07/18 03:50 Anion Gap 14 (5-15) 06/07/18 03:50 BUN 107 mg/dL (7-18) H* 06/07/18 03:50 Creatinine 2.21 mg/dL (0.70-1.30) H 06/07/18 03:50 Est GFR (MDRD) Af Amer 37 mL/min (>60) L 06/07/18 03:50 Est GFR (MDRD) Non-Af 31 mL/min (>60) L 06/07/18 03:50 BUN/Creatinine Ratio 48.4 RATIO (10-20) H 06/07/18 03:50 Glucose 200 mg/dL (74-106) H 06/07/18 03:50 Vancomycin Trough 24.2 ug/mL (5.0-15.0) H 06/08/18 03:00 Microbiology: Microbiology 06/02/18 01:24 Blood Culture (Wb) - Anticubital Left Blood Culture - Final No growth in 5 days. 06/02/18 01:10 Blood Culture (Wb) - Right Forearm Blood Culture - Final No growth in 5 days. 06/03/18 15:20 Urine Catheter - [place] Urine Culture - Final Enterococcus faecalis 06/03/18 14:55 Blood Culture (Wb) - Left Wrist Blood Culture - Preliminary No growth in 48 hours. 06/03/18 15:05 Blood Culture (Wb) - Anticubital Right Blood Culture - Preliminary No growth in 48 hours. 06/02/18 22:30 Sputum, Expectorated/Coughed Gram Stain - Final 06/02/18 22:30 Sputum, Expectorated/Coughed Respiratory Culture - Final Mixed normal respiratory betty. No Streptococcus pneumoniae, beta-hemolytic Streptococcus or Staphylococcus aureus isolated. 06/02/18 01:55 Urine, Clean Catch Urine Culture - Final GPC Poss Enterococcus sp 06/02/18 22:30 Mucosa - Nose Respiratory Panel (PCR) - Final 06/02/18 02:15 Mucosa - Nose Influenza Types A,B Direct FA ([place]LE) - Final Weight used for dosin.6 kg Estimated Creatinine Clearance: 25 Goal Trough: 15-20 mcg/mL Pharmacy Plan for Drug Dosing: Trough level on 24.2 was higher than target range of 15-20. Held the 06/08/18 0330 dose. Will draw a random level in 12 hours and re-calculate continuing dose from that level. Pharmacy Service will continue to monitor and adjust dosing as required. Follow-Up Labs: Trough Vancomycin - random Labs to be done on [date and time ordered]: 06/08/18 @1500
[2018-06-08 05:03] LABS: Hematocrit 26.6 % (40-54); Hemoglobin 8.4 g/dl (13.0-16.5); International Normalized Ratio 1.7; Mean Corp Hgb Conc 31.6 g/gl (32-36); Mean Corpuscular Hgb 29.7 pg (27.0-32.0); Mean Platelet Vol. 10.8 fl (6.2-12.0); Prothrombin Time (Protime)PT. 19.5 SECONDS (11.7-14.9); RBC Distribution Width CV 16.7 % (11.6-14.6); RBC Distribution Width SD 54.9 fl (35.1-43.9); Red Blood Count 2.83 M/mm3 (4.6-6.2); White Blood Count 15.5 K/mm3 (4.4-11.0)
[2018-06-08 05:04] LABS: Partial Thromboplast Time 32.6 Seconds (24.1-36.2)
[2018-06-08 05:08] LABS: Platelet Count 28 K/mm3 (150-450)
[2018-06-08 05:09] LABS: Differential Indicated MANUAL DIFF; POSITIVE COUNT YES; POSITIVE DIFFERENTIAL NO; POSITIVE MORPHOLOGY YES
[2018-06-08 05:13] LABS: Anion Gap 12 (5-15); BUN 101 mg/dL (7-18); Calcium,Total 8.5 mg/dL (8.5-10.1); Chloride 125 mmol/L (98-107); Creatinine, Serum 2.15 mg/dL (0.70-1.30); EST Glomerular Filtration Rate 32 mL/min (>60); Est Glom Filt Rate - Afr Amer 38 mL/min (>60); Estimated Creatinine Clearance 25.55 ml/min; Glucose 232 mg/dL (74-106); Potassium 3.3 mmol/L (3.5-5.1); Sodium Level 155 mmol/L (136-145)
[2018-06-08] MEDS: Sucralfate 1 GM Tablet GT ×3 (05:17→21:26)
[2018-06-08] MEDS: dilTIAZem 30 MG Tablet PO ×3 (05:17→18:42)
[2018-06-08] MEDS: Insulin Lispro 100 UNIT/ML INSULN.PEN SC ×3 (05:18→18:41)
[2018-06-08 05:26] LABS: Bedside Glucose 216 mg/dL (70-110)
[2018-06-08] MEDS: Potassium Chloride 10mEq/100mL 10 MEQ/100 ML IV.SOLN. 100 MEQ IV BOLUS ×4 (05:48→09:00)
[2018-06-08] MEDS: Vital AF 1.2 Cal Liquid 1,000 ML 50 ML GT (05:50)
[2018-06-08 06:03] LABS: Anisocytosis 1+; Hypochromasia 1+; Lymphocyte 8 % (19-41); Metamyelocyte 3 % (0-1); Microcytosis 1+; Monocyte 1 % (0-10); Neutrophil-Band 6 % (0-5); Neutrophil-Segmented 82 % (47-70); Platelet Estimate MKD DEC (ADEQ); Platelet Morphology LARGE; Polychromasia 1+; Total Cells Counted 100 (MANUAL DIFF)
[2018-06-08 06:08] LABS: Absolute Lymphocyte Count 1.25 X10^3/ul (0.83-4.51); Absolute Neutrophil Count 13.6 X10^3/uL (2.0-7.7); Absolute Nucleated RBC Count 4.47 10^3/uL (0-5); NRBC Flagged by Analyzer 28.9 % (0-5)
--- NOTE | 2018-06-08 06:46 | PCM.PN.INT ---
Subjective: The patient was seen and examined at the bedside this morning. Events from the last 24 hours have been reviewed. The patient remains febrile this morning. He is hemodynamically stable with an FiO2 requirement of 30%. He is currently documented to be overall net +10.1 L for the admission. The patient received additional transfusion of platelets yesterday with improvement from 23,000 to 43,000 post transfusion. However, as of this morning, the patient's platelet count is down again to 28,000. Hemoglobin is stable at 8.4 g/dL. The patient has not yet had a bowel movement. He is currently tolerating his tube feeds. He remains in normal sinus rhythm on telemetry. Objective: The patient's most recent lab work, culture data and imaging studies have all been personally reviewed. Surface echocardiogram revealed normal LV size and function with an ejection fraction of 65% and stage I diastolic dysfunction. Pulmonary artery systolic pressure was estimated to be 40 mmHg. VQ scan completed on June 02 was noted to be a low quality VQ scan, but was reported to be most consistent with low probability for PE. CT chest dated June 02 revealed small bilateral pleural effusions without focal infiltrates. CT abdomen revealed bilateral hydronephrosis along with bilateral hydroureter. Urine culture dated June 02 and June 03 both revealed Enterococcus faecalis. General: Alert, No apparent distress, - - Remains intubated and mechanically ventilated. No ventilator dyssynchrony noted. HEENT: Atraumatic, PERRLA, Normocephalic Oral: No Gingival or Mucosal Lesions/ Ulcerations, - - Endotracheal and OG tubes remain in place Neck: Supple, No Nodes, Trachea Midline Lungs: No rhonchi, No wheeze, No rales, Diminished Cardiovascular: Regular rate, Regular Rhythm, Normal S1, Normal S2, Murmur Abdomen: Bowel Sounds Present, Soft, Non Tender Extremities: No clubbing, No cyanosis, Edema Skin: - - No significant change from previous Musculoskeletal: No Tenderness to Palpation of Joints or Extremities Lymphatic: No Cervical, Supraclavicular, or Inguinal Adenopathy Neurological: - - No focal neurological deficits. Vital Signs Temp Pulse Resp BP Pulse Ox 38.3 C H 92 28 H 122/54 H 95 06/08/18 06:00 06/08/18 06:00 06/08/18 06:00 06/08/18 06:00 06/08/18 06:00 Oxygen Flow Rate (L/min) [4] 15 Oxygen Flow Rate (L/min) [3] 15 Oxygen Flow Rate (L/min) [2] 15 Oxygen Flow Rate (L/min) [1 ( 15 Initial Baseline)] Oxygen Flow Rate (L/min) 2 Oxygen Delivery Method [4] Ambu-Bag Oxygen Delivery Method [3] Ambu-Bag Oxygen Delivery Method [2] Ambu-Bag Oxygen Delivery Method [1 ( Ambu-Bag Initial Baseline)] Oxygen Delivery Method Mechanical Ventilator Weight: 175 lb 11.335 oz Body Mass Index (BMI) 27.1 Finger Stick Blood Glucose 202 Intake and Output for Last 24 Hours 06/06/18 06/07/18 06/09/18 23:59 23:59 00:59 Intake Total 4487.5 / 4487.5 1787.8 / 1787.8 1411.1 / 1411.1 Output Total 1070 / 1070 1080 / 1080 600 / 600 Balance 3417.5 / 3417.5 707.8 / 707.8 811.1 / 811.1 Labs (Last 48 Hours) 06/05/18 06/06/18 06/06/18 11:45 04:25 05:24 WBC RBC Hgb Hct MCV MCH MCHC RDW RDW Differential Plt Count MPV Neut % (Auto) Absolute Neuts (auto) Absolute Lymphs (auto) Total Counted Neutrophils % (Manual) Band Neutrophils % Lymphocytes % (Manual) Monocytes % (Manual) Metamyelocytes % Myelocytes % Nucleated RBC % Differential Comment Diff Path Review Reviewed Platelet Estimate Plt Morphology Comment Polychromasia Hypochromasia Anisocytosis Microcytosis Ovalocytes Schistocytes Absolute Retic PT INR APTT Fibrinogen D-Dimer Quant (PE/DVT) Sodium Potassium Chloride Carbon Dioxide Anion Gap BUN Creatinine Estim Creat Clear Calc Est GFR (MDRD) Af Amer Est GFR (MDRD) Non-Af BUN/Creatinine Ratio Glucose Calcium Vancomycin Trough Heparin-induced Plt Ab H. pylori IgG Antibody 0.16 POC Glucose 161 H Blood Type Antibody Screen Crossmatch 06/06/18 06/06/18 06/06/18 07:15 07:15 11:19 WBC RBC Hgb Hct MCV MCH MCHC RDW RDW Differential Plt Count MPV Neut % (Auto) Absolute Neuts (auto) Absolute Lymphs (auto) Total Counted Neutrophils % (Manual) Band Neutrophils % Lymphocytes % (Manual) Monocytes % (Manual) Metamyelocytes % Myelocytes % Nucleated RBC % Differential Comment Diff Path Review Platelet Estimate Plt Morphology Comment Polychromasia Hypochromasia Anisocytosis Microcytosis Ovalocytes Schistocytes Absolute Retic PT INR APTT Fibrinogen D-Dimer Quant (PE/DVT) Sodium Potassium Chloride Carbon Dioxide Anion Gap BUN Creatinine Estim Creat Clear Calc Est GFR (MDRD) Af Amer Est GFR (MDRD) Non-Af BUN/Creatinine Ratio Glucose Calcium Vancomycin Trough Heparin-induced Plt Ab H. pylori IgG Antibody POC Glucose 198 H Blood Type AB POSITIVE Antibody Screen NEGATIVE Crossmatch See Detail See Detail 06/06/18 06/06/18 06/07/18 14:00 17:04 00:11 WBC 20.0 H RBC 2.98 L Hgb 9.0 L Hct 27.4 L MCV 91.9 MCH 30.2 MCHC 32.8 RDW 16.2 H RDW Differential 53.3 H Plt Count 35 L* MPV 11.7 Neut % (Auto) Absolute Neuts (auto) Absolute Lymphs (auto) Total Counted Neutrophils % (Manual) Band Neutrophils % Lymphocytes % (Manual) Monocytes % (Manual) Metamyelocytes % Myelocytes % Nucleated RBC % Differential Comment COMMENT Diff Path Review May foll Platelet Estimate Plt Morphology Comment Polychromasia Hypochromasia Anisocytosis Microcytosis Ovalocytes Schistocytes Absolute Retic PT INR APTT Fibrinogen D-Dimer Quant (PE/DVT) Sodium Potassium Chloride Carbon Dioxide Anion Gap BUN Creatinine Estim Creat Clear Calc Est GFR (MDRD) Af Amer Est GFR (MDRD) Non-Af BUN/Creatinine Ratio Glucose Calcium Vancomycin Trough Heparin-induced Plt Ab H. pylori IgG Antibody POC Glucose 216 H 167 H Blood Type Antibody Screen Crossmatch 06/07/18 06/07/18 06/07/18 03:50 03:50 05:42 WBC 16.5 H RBC 2.90 L Hgb 8.7 L Hct 26.9 L MCV 92.8 MCH 30.0 MCHC 32.3 RDW 16.4 H RDW Differential 54.5 H Plt Count 23 L* MPV TNP Neut % (Auto) Not Reportable Absolute Neuts (auto) 13.6 H Absolute Lymphs (auto) 2.48 Total Counted 100 Neutrophils % (Manual) 78 H Band Neutrophils % 4 Lymphocytes % (Manual) 15 L Monocytes % (Manual) 2 Metamyelocytes % 1 Myelocytes % Nucleated RBC % 19.8 H Differential Comment Diff Path Review May foll Platelet Estimate Plt Morphology Comment Polychromasia Hypochromasia Anisocytosis 1+ Microcytosis Ovalocytes RARE Schistocytes 1+ Absolute Retic 3.27 PT INR APTT Fibrinogen D-Dimer Quant (PE/DVT) Sodium 152 H Potassium 3.4 L Chloride 120 H Carbon Dioxide 18.0 L Anion Gap 14 BUN 107 H* Creatinine 2.21 H Estim Creat Clear Calc 24.86 Est GFR (MDRD) Af Amer 37 L Est GFR (MDRD) Non-Af 31 L BUN/Creatinine Ratio 48.4 H Glucose 200 H Calcium 8.0 L Vancomycin Trough Heparin-induced Plt Ab H. pylori IgG Antibody POC Glucose 202 H Blood Type Antibody Screen Crossmatch 06/07/18 06/07/18 06/07/18 06:50 06:50 11:12 WBC RBC Hgb Hct MCV MCH MCHC RDW RDW Differential Plt Count MPV Neut % (Auto) Absolute Neuts (auto) Absolute Lymphs (auto) Total Counted Neutrophils % (Manual) Band Neutrophils % Lymphocytes % (Manual) Monocytes % (Manual) Metamyelocytes % Myelocytes % Nucleated RBC % Differential Comment Diff Path Review Platelet Estimate Plt Morphology Comment Polychromasia Hypochromasia Anisocytosis Microcytosis Ovalocytes Schistocytes Absolute Retic PT 19.6 H INR 1.7 APTT 30.8 Fibrinogen 156 L D-Dimer Quant (PE/DVT) > 20.00 H* Sodium Potassium Chloride Carbon Dioxide Anion Gap BUN Creatinine Estim Creat Clear Calc Est GFR (MDRD) Af Amer Est GFR (MDRD) Non-Af BUN/Creatinine Ratio Glucose Calcium Vancomycin Trough Heparin-induced Plt Ab Pending H. pylori IgG Antibody POC Glucose 219 H Blood Type Antibody Screen Crossmatch 06/07/18 06/07/18 06/07/18 14:40 16:40 23:54 WBC 17.9 H RBC 2.77 L Hgb 8.2 L Hct 25.7 L MCV 92.8 MCH 29.6 MCHC 31.9 L RDW 16.5 H RDW Differential 54.3 H Plt Count 43 L* MPV 10.7 Neut % (Auto) Not Reportable Absolute Neuts (auto) 13.6 H Absolute Lymphs (auto) 2.86 Total Counted 100 Neutrophils % (Manual) 75 H Band Neutrophils % 1 Lymphocytes % (Manual) 16 L Monocytes % (Manual) 4 Metamyelocytes % 1 Myelocytes % 3 H Nucleated RBC % 23.8 H Differential Comment SCANNED Diff Path Review May foll Platelet Estimate MKD DEC Plt Morphology Comment Polychromasia 2+ Hypochromasia 2+ Anisocytosis 1+ Microcytosis RARE Ovalocytes RARE Schistocytes 1+ Absolute Retic 4.28 PT INR APTT Fibrinogen D-Dimer Quant (PE/DVT) Sodium Potassium Chloride Carbon Dioxide Anion Gap BUN Creatinine Estim Creat Clear Calc Est GFR (MDRD) Af Amer Est GFR (MDRD) Non-Af BUN/Creatinine Ratio Glucose Calcium Vancomycin Trough Heparin-induced Plt Ab H. pylori IgG Antibody POC Glucose 202 H 195 H Blood Type Antibody Screen Crossmatch 06/08/18 06/08/18 06/08/18 03:00 04:45 04:45 WBC 15.5 H RBC 2.83 L Hgb 8.4 L Hct 26.6 L MCV 94.0 MCH 29.7 MCHC 31.6 L RDW 16.7 H RDW Differential 54.9 H Plt Count 28 L* MPV 10.8 Neut % (Auto) Not Reportable Absolute Neuts (auto) 13.6 H Absolute Lymphs (auto) 1.25 Total Counted 100 Neutrophils % (Manual) 82 H Band Neutrophils % 6 H Lymphocytes % (Manual) 8 L Monocytes % (Manual) 1 Metamyelocytes % 3 H Myelocytes % Nucleated RBC % 28.9 H Differential Comment Diff Path Review May foll Platelet Estimate MKD DEC Plt Morphology Comment LARGE Polychromasia 1+ Hypochromasia 1+ Anisocytosis 1+ Microcytosis 1+ Ovalocytes Schistocytes Absolute Retic 4.47 PT INR APTT Fibrinogen D-Dimer Quant (PE/DVT) Sodium 155 H Potassium 3.3 L Chloride 125 H Carbon Dioxide 18.0 L Anion Gap 12 BUN 101 H* Creatinine 2.15 H Estim Creat Clear Calc 25.55 Est GFR (MDRD) Af Amer 38 L Est GFR (MDRD) Non-Af 32 L BUN/Creatinine Ratio 47.0 H Glucose 232 H Calcium 8.5 Vancomycin Trough 24.2 H Heparin-induced Plt Ab H. pylori IgG Antibody POC Glucose Blood Type Antibody Screen Crossmatch 06/08/18 06/08/18 04:45 05:15 WBC RBC Hgb Hct MCV MCH MCHC RDW RDW Differential Plt Count MPV Neut % (Auto) Absolute Neuts (auto) Absolute Lymphs (auto) Total Counted Neutrophils % (Manual) Band Neutrophils % Lymphocytes % (Manual) Monocytes % (Manual) Metamyelocytes % Myelocytes % Nucleated RBC % Differential Comment Diff Path Review Platelet Estimate Plt Morphology Comment Polychromasia Hypochromasia Anisocytosis Microcytosis Ovalocytes Schistocytes Absolute Retic PT 19.5 H INR 1.7 APTT 32.6 Fibrinogen D-Dimer Quant (PE/DVT) Sodium Potassium Chloride Carbon Dioxide Anion Gap BUN Creatinine Estim Creat Clear Calc Est GFR (MDRD) Af Amer Est GFR (MDRD) Non-Af BUN/Creatinine Ratio Glucose Calcium Vancomycin Trough Heparin-induced Plt Ab H. pylori IgG Antibody POC Glucose 216 H Blood Type Antibody Screen Crossmatch Microbiology 06/02/18 01:24 Blood Culture (Wb) - Anticubital Left Blood Culture - Final No growth in 5 days. 06/02/18 01:10 Blood Culture (Wb) - Right Forearm Blood Culture - Final No growth in 5 days. 06/03/18 15:20 Urine Catheter - [place] Urine Culture - Final Enterococcus faecalis Clinical Impression(s) from Imaging Studies Brain CT 06/02/18 01:25 IMPRESSION: No acute findings. Individualized dose optimization techniques were used for this CT. at 0159 Reported and signed by: Geoff Joaquin MD Electronically Signed: Geoff Joaquin, at 1:58 EST Tel , Service support , Cervical Spine CT 06/02/18 01:25 IMPRESSION: No fracture or dislocation of the cervical spine. Individualized dose optimization techniques were used for this CT. at 0206 Reported and signed by: Geoff Joaquin MD Electronically Signed: Geoff Joaquin, at 2:05 EST Tel , Service support , Chest X-Ray 06/02/18 01:35 IMPRESSION: Low lung volumes with resultant hypoventilatory changes. No definite pneumonia or edema. Interval sternotomy probably for heart valve replacement. at 0154 Reported and signed by: Geoff Joaquin MD Electronically Signed: Geoff Joaquin, at 1:53 EST Tel , Service support , Lung Scan-VQ NM 06/02/18 13:55 IMPRESSION: Low quality VQ scan, most consistent with low probability of pulmonary embolism. Electronically Signed: Kenny Greene MD at 16:31 EST , Service support , Chest X-Ray 06/02/18 14:28 IMPRESSION: Moderate right pleural effusion with overlying atelectasis. Electronically Signed: Juan Ruiz, at 15:40 EST Tel , Service support , Chest CT 06/02/18 21:14 IMPRESSION: Small bilateral pleural effusions with overlying atelectasis. Sclerotic osseous lesions which are suspicious for metastasis. Electronically Signed: Juan Ruiz, at 22:14 EST Tel , Service support , Chest X-Ray 06/02/18 22:26 IMPRESSION: Mild left basilar atelectasis status post endotracheal tube placement Electronically Signed: Norbert Snyder MD at 23:18 EST , Service support , Abdomen CT 06/04/18 12:33 IMPRESSION: Bilateral hydronephrosis right greater than left with bilateral hydroureter. Diffusely thickened bladder wall. Electronically Signed: Javier Unger, at 15:28 EST , Service support , Nephrostomy Tube Change 06/05/18 07:41 IMPRESSION: 1. The percutaneous right nephrostomy catheter is in good position with the pigtail portion located in the right renal pelvis. 2. The conscious sedation protocol was followed. Electronically Signed: Javier Unger, at 14:33 EST , Service support , Medical Necessity - Tobacco Use Smoking Status: Former smoker Assessment/Plan All Active Problems (Last Reviewed 06/05/18 @ 07:40 by Dangelo Alvarado MD) Atrial fibrillation and flutter (Acute) Fever (Acute) Anemia (Acute) Thrombocytopenia (Acute) Bilateral hydronephrosis (Acute) DIC syndrome (Acute) RECOMMENDATIONS: 1. Continue to monitor daily blood counts. 2. Hold off on transfusion of any additional blood products unless overt bleeding arises. 3. Additional potassium repletion today. 4. Increase free water flushes to attempt to offset rising sodium level. 5. Obtain hematology consultation today, re: ongoing thrombocytopenia 6. Continue rate/rhythm control therapy per cardiology recommendations 7. Plans for transesophageal echocardiogram on Saturday. 8. Continue twice daily PPI therapy. 9. Continue antibiotics per ID recommendations. IMPRESSIONS: 1. Acute hypoxemic respiratory failure The exact etiology for the patient's clinical decompensation is unclear. However, the patient was noted to be tachycardic at the time when he was initially beginning to decompensate. It is unclear whether this was atrial fibrillation or a sinus tachycardia. Given that the patient has paroxysmal atrial fibrillation and underlying valvular heart disease, it is possible that his decompensation may have been heart rate related. In addition, increased metabolic demands from the patient's sepsis and fevers also likely contributed. He is chronically anticoagulated with Eliquis on an outpatient basis. The patient's CT chest only revealed evidence of small bilateral pleural effusions without focal infiltrates. His FiO2 was able to be quickly weaned. I would hold off on attempts to extubate the patient until his transesophageal echocardiogram has been completed on Saturday. 2. Severe sepsis with evidence of bilateral hydronephrosis/hydroureter The patient appears to be septic from a urinary source of infection. CT abdomen did reveal evidence of bilateral hydronephrosis, for which the patient underwent a percutaneous nephrostomy tube placement on June 05. Antibiotics will be continued per infectious diseases recommendations. There are tentative plans to perform a CALI on Saturday to ensure that the patient does not have underlying endocarditis. 3. Paroxysmal atrial fibrillation with RVR/history of aortic valve replacement Cardiology following to assist with management. The patient is currently on both amiodarone and Cardizem. 4. Anemia secondary to upper GI bleed/thrombocytopenia The patient does have known normocytic anemia, which appears to have worsened over the course of this hospital stay. The patient did require eventual transfusion of packed red blood cells. Upper endoscopy performed at the bedside did reveal evidence of GI ulcers. However, there was no active bleeding. This will require the permanent discontinuation of the patient's systemic anticoagulation. He will be continued on twice daily PPI therapy and monitored for any ongoing blood loss. In addition, the patient does have worsening thrombocytopenia. There is some clinical concern for potential HIT versus a sepsis induced syndrome. All heparin-containing products have been discontinued. HIT workup is in process. There is also some concern that the patient's antimicrobial regimen could also be contributing to his thrombocytopenia. Therefore, I am going to obtain a hematology consultation with regards to the patient's ongoing, persistent thrombocytopenia. At the current time, there are no overt signs of blood loss. No additional transfusions are needed at the present time. 5. Metastatic prostate cancer/anemia/chronic kidney disease/hypertension/hyperlipidemia/depression/generalized deconditioning and debility Complicates care, management, recovery and prognosis. Likely okay to continue home medications. Physical therapy to once again work with patient once medically stabilized. Recommend formal goals of care discussion with the patient and his family. TIME: 45 minutes of critical care time, independent of procedures, was spent addressing the patient's acute hypoxemic respiratory failure, severe sepsis, paroxysmal atrial fibrillation with a rapid ventricular rate, metastatic prostate cancer, anemia, upper gastrointestinal bleed, review of all data and collaboration with the care team. ([id number]) Code Visit 9xxxx: [id number] Critical care first hour
--- NOTE | 2018-06-08 06:49 | PN_ITS ---
Subjective: The patient was seen and examined at the bedside this morning. Events from the last 24 hours have been reviewed. The patient remains febrile this morning. He is hemodynamically stable with an FiO2 requirement of 30%. He is currently documented to be overall net +10.1 L for the admission. The patient received additional transfusion of platelets yesterday with improvement from 23,000 to 43,000 post transfusion. However, as of this morning, the patient's platelet count is down again to 28,000. Hemoglobin is stable at 8.4 g/dL. The patient has not yet had a bowel movement. He is currently tolerating his tube feeds. He remains in normal sinus rhythm on telemetry. Objective: The patient's most recent lab work, culture data and imaging studies have all been personally reviewed. Surface echocardiogram revealed normal LV size and function with an ejection fraction of 65% and stage I diastolic dysfunction. Pulmonary artery systolic pressure was estimated to be 40 mmHg. VQ scan completed on June 02 was noted to be a low quality VQ scan, but was reported to be most consistent with low probability for PE. CT chest dated June 02 revealed small bilateral pleural effusions without focal infiltrates. CT abdomen revealed bilateral hydronephrosis along with bilateral hydroureter. Urine culture dated June 02 and June 03 both revealed Enterococcus faecalis. General: Alert, No apparent distress, - - Remains intubated and mechanically ventilated. No ventilator dyssynchrony noted. HEENT: Atraumatic, PERRLA, Normocephalic Oral: No Gingival or Mucosal Lesions/ Ulcerations, - - Endotracheal and OG tubes remain in place Neck: Supple, No Nodes, Trachea Midline Lungs: No rhonchi, No wheeze, No rales, Diminished Cardiovascular: Regular rate, Regular Rhythm, Normal S1, Normal S2, Murmur Abdomen: Bowel Sounds Present, Soft, Non Tender Extremities: No clubbing, No cyanosis, Edema Skin: - - No significant change from previous Musculoskeletal: No Tenderness to Palpation of Joints or Extremities Lymphatic: No Cervical, Supraclavicular, or Inguinal Adenopathy Neurological: - - No focal neurological deficits. Vital Signs Temp Pulse Resp BP Pulse Ox 38.3 C H 92 28 H 122/54 H 95 06/08/18 06:00 06/08/18 06:00 06/08/18 06:00 06/08/18 06:00 06/08/18 06:00 Oxygen Flow Rate (L/min) [4] 15 Oxygen Flow Rate (L/min) [3] 15 Oxygen Flow Rate (L/min) [2] 15 Oxygen Flow Rate (L/min) [1 ( 15 Initial Baseline)] Oxygen Flow Rate (L/min) 2 Oxygen Delivery Method [4] Ambu-Bag Oxygen Delivery Method [3] Ambu-Bag Oxygen Delivery Method [2] Ambu-Bag Oxygen Delivery Method [1 ( Ambu-Bag Initial Baseline)] Oxygen Delivery Method Mechanical Ventilator Weight: 175 lb 11.335 oz Body Mass Index (BMI) 27.1 Finger Stick Blood Glucose 202 Intake and Output for Last 24 Hours 06/06/18 06/07/18 06/09/18 23:59 23:59 00:59 Intake Total 4487.5 / 4487.5 1787.8 / 1787.8 1411.1 / 1411.1 Output Total 1070 / 1070 1080 / 1080 600 / 600 Balance 3417.5 / 3417.5 707.8 / 707.8 811.1 / 811.1 Labs (Last 48 Hours) 06/05/18 06/06/18 06/06/18 11:45 04:25 05:24 WBC RBC Hgb Hct MCV MCH MCHC RDW RDW Differential Plt Count MPV Neut % (Auto) Absolute Neuts (auto) Absolute Lymphs (auto) Total Counted Neutrophils % (Manual) Band Neutrophils % Lymphocytes % (Manual) Monocytes % (Manual) Metamyelocytes % Myelocytes % Nucleated RBC % Differential Comment Diff Path Review Reviewed Platelet Estimate Plt Morphology Comment Polychromasia Hypochromasia Anisocytosis Microcytosis Ovalocytes Schistocytes Absolute Retic PT INR APTT Fibrinogen D-Dimer Quant (PE/DVT) Sodium Potassium Chloride Carbon Dioxide Anion Gap BUN Creatinine Estim Creat Clear Calc Est GFR (MDRD) Af Amer Est GFR (MDRD) Non-Af BUN/Creatinine Ratio Glucose Calcium Vancomycin Trough Heparin-induced Plt Ab H. pylori IgG Antibody 0.16 POC Glucose 161 H Blood Type Antibody Screen Crossmatch 06/06/18 06/06/18 06/06/18 07:15 07:15 11:19 WBC RBC Hgb Hct MCV MCH MCHC RDW RDW Differential Plt Count MPV Neut % (Auto) Absolute Neuts (auto) Absolute Lymphs (auto) Total Counted Neutrophils % (Manual) Band Neutrophils % Lymphocytes % (Manual) Monocytes % (Manual) Metamyelocytes % Myelocytes % Nucleated RBC % Differential Comment Diff Path Review Platelet Estimate Plt Morphology Comment Polychromasia Hypochromasia Anisocytosis Microcytosis Ovalocytes Schistocytes Absolute Retic PT INR APTT Fibrinogen D-Dimer Quant (PE/DVT) Sodium Potassium Chloride Carbon Dioxide Anion Gap BUN Creatinine Estim Creat Clear Calc Est GFR (MDRD) Af Amer Est GFR (MDRD) Non-Af BUN/Creatinine Ratio Glucose Calcium Vancomycin Trough Heparin-induced Plt Ab H. pylori IgG Antibody POC Glucose 198 H Blood Type AB POSITIVE Antibody Screen NEGATIVE Crossmatch See Detail See Detail 06/06/18 06/06/18 06/07/18 14:00 17:04 00:11 WBC 20.0 H RBC 2.98 L Hgb 9.0 L Hct 27.4 L MCV 91.9 MCH 30.2 MCHC 32.8 RDW 16.2 H RDW Differential 53.3 H Plt Count 35 L* MPV 11.7 Neut % (Auto) Absolute Neuts (auto) Absolute Lymphs (auto) Total Counted Neutrophils % (Manual) Band Neutrophils % Lymphocytes % (Manual) Monocytes % (Manual) Metamyelocytes % Myelocytes % Nucleated RBC % Differential Comment COMMENT Diff Path Review May foll Platelet Estimate Plt Morphology Comment Polychromasia Hypochromasia Anisocytosis Microcytosis Ovalocytes Schistocytes Absolute Retic PT INR APTT Fibrinogen D-Dimer Quant (PE/DVT) Sodium Potassium Chloride Carbon Dioxide Anion Gap BUN Creatinine Estim Creat Clear Calc Est GFR (MDRD) Af Amer Est GFR (MDRD) Non-Af BUN/Creatinine Ratio Glucose Calcium Vancomycin Trough Heparin-induced Plt Ab H. pylori IgG Antibody POC Glucose 216 H 167 H Blood Type Antibody Screen Crossmatch 06/07/18 06/07/18 06/07/18 03:50 03:50 05:42 WBC 16.5 H RBC 2.90 L Hgb 8.7 L Hct 26.9 L MCV 92.8 MCH 30.0 MCHC 32.3 RDW 16.4 H RDW Differential 54.5 H Plt Count 23 L* MPV TNP Neut % (Auto) Not Reportable Absolute Neuts (auto) 13.6 H Absolute Lymphs (auto) 2.48 Total Counted 100 Neutrophils % (Manual) 78 H Band Neutrophils % 4 Lymphocytes % (Manual) 15 L Monocytes % (Manual) 2 Metamyelocytes % 1 Myelocytes % Nucleated RBC % 19.8 H Differential Comment Diff Path Review May foll Platelet Estimate Plt Morphology Comment Polychromasia Hypochromasia Anisocytosis 1+ Microcytosis Ovalocytes RARE Schistocytes 1+ Absolute Retic 3.27 PT INR APTT Fibrinogen D-Dimer Quant (PE/DVT) Sodium 152 H Potassium 3.4 L Chloride 120 H Carbon Dioxide 18.0 L Anion Gap 14 BUN 107 H* Creatinine 2.21 H Estim Creat Clear Calc 24.86 Est GFR (MDRD) Af Amer 37 L Est GFR (MDRD) Non-Af 31 L BUN/Creatinine Ratio 48.4 H Glucose 200 H Calcium 8.0 L Vancomycin Trough Heparin-induced Plt Ab H. pylori IgG Antibody POC Glucose 202 H Blood Type Antibody Screen Crossmatch 06/07/18 06/07/18 06/07/18 06:50 06:50 11:12 WBC RBC Hgb Hct MCV MCH MCHC RDW RDW Differential Plt Count MPV Neut % (Auto) Absolute Neuts (auto) Absolute Lymphs (auto) Total Counted Neutrophils % (Manual) Band Neutrophils % Lymphocytes % (Manual) Monocytes % (Manual) Metamyelocytes % Myelocytes % Nucleated RBC % Differential Comment Diff Path Review Platelet Estimate Plt Morphology Comment Polychromasia Hypochromasia Anisocytosis Microcytosis Ovalocytes Schistocytes Absolute Retic PT 19.6 H INR 1.7 APTT 30.8 Fibrinogen 156 L D-Dimer Quant (PE/DVT) > 20.00 H* Sodium Potassium Chloride Carbon Dioxide Anion Gap BUN Creatinine Estim Creat Clear Calc Est GFR (MDRD) Af Amer Est GFR (MDRD) Non-Af BUN/Creatinine Ratio Glucose Calcium Vancomycin Trough Heparin-induced Plt Ab Pending H. pylori IgG Antibody POC Glucose 219 H Blood Type Antibody Screen Crossmatch 06/07/18 06/07/18 06/07/18 14:40 16:40 23:54 WBC 17.9 H RBC 2.77 L Hgb 8.2 L Hct 25.7 L MCV 92.8 MCH 29.6 MCHC 31.9 L RDW 16.5 H RDW Differential 54.3 H Plt Count 43 L* MPV 10.7 Neut % (Auto) Not Reportable Absolute Neuts (auto) 13.6 H Absolute Lymphs (auto) 2.86 Total Counted 100 Neutrophils % (Manual) 75 H Band Neutrophils % 1 Lymphocytes % (Manual) 16 L Monocytes % (Manual) 4 Metamyelocytes % 1 Myelocytes % 3 H Nucleated RBC % 23.8 H Differential Comment SCANNED Diff Path Review May foll Platelet Estimate MKD DEC Plt Morphology Comment Polychromasia 2+ Hypochromasia 2+ Anisocytosis 1+ Microcytosis RARE Ovalocytes RARE Schistocytes 1+ Absolute Retic 4.28 PT INR APTT Fibrinogen D-Dimer Quant (PE/DVT) Sodium Potassium Chloride Carbon Dioxide Anion Gap BUN Creatinine Estim Creat Clear Calc Est GFR (MDRD) Af Amer Est GFR (MDRD) Non-Af BUN/Creatinine Ratio Glucose Calcium Vancomycin Trough Heparin-induced Plt Ab H. pylori IgG Antibody POC Glucose 202 H 195 H Blood Type Antibody Screen Crossmatch 06/08/18 06/08/18 06/08/18 03:00 04:45 04:45 WBC 15.5 H RBC 2.83 L Hgb 8.4 L Hct 26.6 L MCV 94.0 MCH 29.7 MCHC 31.6 L RDW 16.7 H RDW Differential 54.9 H Plt Count 28 L* MPV 10.8 Neut % (Auto) Not Reportable Absolute Neuts (auto) 13.6 H Absolute Lymphs (auto) 1.25 Total Counted 100 Neutrophils % (Manual) 82 H Band Neutrophils % 6 H Lymphocytes % (Manual) 8 L Monocytes % (Manual) 1 Metamyelocytes % 3 H Myelocytes % Nucleated RBC % 28.9 H Differential Comment Diff Path Review May foll Platelet Estimate MKD DEC Plt Morphology Comment LARGE Polychromasia 1+ Hypochromasia 1+ Anisocytosis 1+ Microcytosis 1+ Ovalocytes Schistocytes Absolute Retic 4.47 PT INR APTT Fibrinogen D-Dimer Quant (PE/DVT) Sodium 155 H Potassium 3.3 L Chloride 125 H Carbon Dioxide 18.0 L Anion Gap 12 BUN 101 H* Creatinine 2.15 H Estim Creat Clear Calc 25.55 Est GFR (MDRD) Af Amer 38 L Est GFR (MDRD) Non-Af 32 L BUN/Creatinine Ratio 47.0 H Glucose 232 H Calcium 8.5 Vancomycin Trough 24.2 H Heparin-induced Plt Ab H. pylori IgG Antibody POC Glucose Blood Type Antibody Screen Crossmatch 06/08/18 06/08/18 04:45 05:15 WBC RBC Hgb Hct MCV MCH MCHC RDW RDW Differential Plt Count MPV Neut % (Auto) Absolute Neuts (auto) Absolute Lymphs (auto) Total Counted Neutrophils % (Manual) Band Neutrophils % Lymphocytes % (Manual) Monocytes % (Manual) Metamyelocytes % Myelocytes % Nucleated RBC % Differential Comment Diff Path Review Platelet Estimate Plt Morphology Comment Polychromasia Hypochromasia Anisocytosis Microcytosis Ovalocytes Schistocytes Absolute Retic PT 19.5 H INR 1.7 APTT 32.6 Fibrinogen D-Dimer Quant (PE/DVT) Sodium Potassium Chloride Carbon Dioxide Anion Gap BUN Creatinine Estim Creat Clear Calc Est GFR (MDRD) Af Amer Est GFR (MDRD) Non-Af BUN/Creatinine Ratio Glucose Calcium Vancomycin Trough Heparin-induced Plt Ab H. pylori IgG Antibody POC Glucose 216 H Blood Type Antibody Screen Crossmatch Microbiology 06/02/18 01:24 Blood Culture (Wb) - Anticubital Left Blood Culture - Final No growth in 5 days. 06/02/18 01:10 Blood Culture (Wb) - Right Forearm Blood Culture - Final No growth in 5 days. 06/03/18 15:20 Urine Catheter - [place] Urine Culture - Final Enterococcus faecalis Clinical Impression(s) from Imaging Studies Brain CT 06/02/18 01:25 IMPRESSION: No acute findings. Individualized dose optimization techniques were used for this CT. at 0159 Reported and signed by: Geoff Joaquin MD Electronically Signed: Geoff Joaquin, at 1:58 EST Tel , Service support , Cervical Spine CT 06/02/18 01:25 IMPRESSION: No fracture or dislocation of the cervical spine. Individualized dose optimization techniques were used for this CT. at 0206 Reported and signed by: Geoff Joaquin MD Electronically Signed: Geoff Joaquin, at 2:05 EST Tel , Service support , Chest X-Ray 06/02/18 01:35 IMPRESSION: Low lung volumes with resultant hypoventilatory changes. No definite pneumonia or edema. Interval sternotomy probably for heart valve replacement. at 0154 Reported and signed by: Geoff Joaquin MD Electronically Signed: Geoff Joaquin, at 1:53 EST Tel , Service support , Lung Scan-VQ NM 06/02/18 13:55 IMPRESSION: Low quality VQ scan, most consistent with low probability of pulmonary embolism. Electronically Signed: Kenny Greene MD at 16:31 EST , Service support , Chest X-Ray 06/02/18 14:28 IMPRESSION: Moderate right pleural effusion with overlying atelectasis. Electronically Signed: Juan Ruiz, at 15:40 EST Tel , Service support , Chest CT 06/02/18 21:14 IMPRESSION: Small bilateral pleural effusions with overlying atelectasis. Sclerotic osseous lesions which are suspicious for metastasis. Electronically Signed: Juan Ruiz, at 22:14 EST Tel , Service support , Chest X-Ray 06/02/18 22:26 IMPRESSION: Mild left basilar atelectasis status post endotracheal tube placement Electronically Signed: Norbert Snyder MD at 23:18 EST , Service support , Abdomen CT 06/04/18 12:33 IMPRESSION: Bilateral hydronephrosis right greater than left with bilateral hydroureter. Diffusely thickened bladder wall. Electronically Signed: Javier Unger, at 15:28 EST , Service support , Nephrostomy Tube Change 06/05/18 07:41 IMPRESSION: 1. The percutaneous right nephrostomy catheter is in good position with the pigtail portion located in the right renal pelvis. 2. The conscious sedation protocol was followed. Electronically Signed: Javier Unger, at 14:33 EST , Service support , Medical Necessity - Tobacco Use Smoking Status: Former smoker Assessment/Plan All Active Problems (Last Reviewed 06/05/18 @ 07:40 by Dangelo Alvarado MD) Atrial fibrillation and flutter (Acute) Fever (Acute) Anemia (Acute) Thrombocytopenia (Acute) Bilateral hydronephrosis (Acute) DIC syndrome (Acute) RECOMMENDATIONS: 1. Continue to monitor daily blood counts. 2. Hold off on transfusion of any additional blood products unless overt bleeding arises. 3. Additional potassium repletion today. 4. Increase free water flushes to attempt to offset rising sodium level. 5. Obtain hematology consultation today, re: ongoing thrombocytopenia 6. Continue rate/rhythm control therapy per cardiology recommendations 7. Plans for transesophageal echocardiogram on Saturday. 8. Continue twice daily PPI therapy. 9. Continue antibiotics per ID recommendations. IMPRESSIONS: 1. Acute hypoxemic respiratory failure The exact etiology for the patient's clinical decompensation is unclear. However, the patient was noted to be tachycardic at the time when he was initially beginning to decompensate. It is unclear whether this was atrial fibrillation or a sinus tachycardia. Given that the patient has paroxysmal atrial fibrillation and underlying valvular heart disease, it is possible that his decompensation may have been heart rate related. In addition, increased metabolic demands from the patient's sepsis and fevers also likely contributed. He is chronically anticoagulated with Eliquis on an outpatient basis. The patient's CT chest only revealed evidence of small bilateral pleural effusions without focal infiltrates. His FiO2 was able to be quickly weaned. I would hold off on attempts to extubate the patient until his transesophageal e chocardiogram has been completed on Saturday. 2. Severe sepsis with evidence of bilateral hydronephrosis/hydroureter The patient appears to be septic from a urinary source of infection. CT abdomen did reveal evidence of bilateral hydronephrosis, for which the patient underwent a percutaneous nephrostomy tube placement on June 05. Antibiotics will be continued per infectious diseases recommendations. There are tentative plans to perform a CALI on Saturday to ensure that the patient does not have underlying endocarditis. 3. Paroxysmal atrial fibrillation with RVR/history of aortic valve replacement Cardiology following to assist with management. The patient is currently on both amiodarone and Cardizem. 4. Anemia secondary to upper GI bleed/thrombocytopenia The patient does have known normocytic anemia, which appears to have worsened over the course of this hospital stay. The patient did require eventual t ransfusion of packed red blood cells. Upper endoscopy performed at the bedside did reveal evidence of GI ulcers. However, there was no active bleeding. This will require the permanent discontinuation of the patient's systemic anticoagulation. He will be continued on twice daily PPI therapy and monitored for any ongoing blood loss. In addition, the patient does have worsening thrombocytopenia. There is some clinical concern for potential HIT versus a sepsis induced syndrome. All heparin-containing products have been discontinued. HIT workup is in process. There is also some concern that the patient's antimicrobial regimen could also be contributing to his thrombocytopenia. Therefore, I am going to obtain a hematology consultation with regards to the patient's ongoing, persistent thrombocytopenia. At the current time, there are no overt signs of blood loss. No additional transfusions are needed at the present time. 5. Metastatic prostate cancer/anemia/chronic kidney disease/hypertension/hyperlipidemia/depression/generalized deconditioning and debility Complicates care, management, recovery and prognosis. Likely okay to continue home medications. Physical therapy to once again work with patient once medically stabilized. Recommend formal goals of care discussion with the patient and his family. TIME: 45 minutes of critical care time, independent of procedures, was spent addressing the patient's acute hypoxemic respiratory failure, severe sepsis, paroxysmal atrial fibrillation with a rapid ventricular rate, metastatic prostate cancer, anemia, upper gastrointestinal bleed, review of all data and collaboration with the care team. ([id number]) Code Visit 9xxxx: [id number] Critical care first hour
--- NOTE | 2018-06-08 09:18 | PCM.PN.SRG ---
Patient Problems: Active and Suspected Problems (Last Reviewed 06/05/18 @ 07:40 by Dangelo Alvarado MD) Atrial fibrillation and flutter (Acute) Fever (Acute) Anemia (Acute) Thrombocytopenia (Acute) Bilateral hydronephrosis (Acute) Subjective: Patient remains febrile. He is having bleeding from around his catheter and his drain. - Physical Exam General: Alert Abdomen: Soft, Non Tender, Non-Distended Vital Signs Temp Pulse Resp BP Pulse Ox 101 F H 93 21 H 122/46 H 99 06/08/18 09:00 06/08/18 09:00 06/08/18 09:00 06/08/18 09:00 06/08/18 09:00 Oxygen Flow Rate (L/min) [4] 15 Oxygen Flow Rate (L/min) [3] 15 Oxygen Flow Rate (L/min) [2] 15 Oxygen Flow Rate (L/min) [1 ( 15 Initial Baseline)] Oxygen Flow Rate (L/min) 2 Oxygen Delivery Method [4] Ambu-Bag Oxygen Delivery Method [3] Ambu-Bag Oxygen Delivery Method [2] Ambu-Bag Oxygen Delivery Method [1 ( Ambu-Bag Initial Baseline)] Oxygen Delivery Method Mechanical Ventilator Weight: 175 lb 11.335 oz Body Mass Index (BMI) 27.1 Finger Stick Blood Glucose 202 Intake and Output for Last 24 Hours 06/06/18 06/07/18 06/09/18 23:59 23:59 00:59 Intake Total 4487.5 / 4487.5 1787.8 / 1787.8 1411.1 / 1411.1 Output Total 1070 / 1070 1080 / 1080 600 / 600 Balance 3417.5 / 3417.5 707.8 / 707.8 811.1 / 811.1 Microbiology Past 72 Hours 06/02/18 01:24 Blood Culture - Final Blood Culture (Wb) - Anticubital Left No growth in 5 days. 06/02/18 01:10 Blood Culture - Final Blood Culture (Wb) - Right Forearm No growth in 5 days. 06/03/18 15:20 Urine Culture - Final Urine Catheter - [place] Enterococcus faecalis 06/03/18 14:55 Blood Culture - Preliminary Blood Culture (Wb) - Left Wrist No growth in 48 hours. 06/03/18 15:05 Blood Culture - Preliminary Blood Culture (Wb) - Anticubital Right No growth in 48 hours. 06/02/18 22:30 Gram Stain - Final Sputum, Expectorated/Coughed Respiratory Culture - Final Mixed normal respiratory betty. No Streptococcus pneumoniae, beta-hemolytic Streptococcus or Staphylococcus aureus isolated. Laboratory Tests Past 24 Hrs 06/06/18 06/07/18 06/07/18 07:15 03:50 14:40 WBC 17.9 H RBC 2.77 L Hgb 8.2 L Hct 25.7 L MCV 92.8 MCH 29.6 MCHC 31.9 L RDW 16.5 H RDW Differential 54.3 H Plt Count 43 L* MPV 10.7 Neut % (Auto) Not Reportable Absolute Neuts (auto) 13.6 H Absolute Lymphs (auto) 2.86 Total Counted 100 Neutrophils % (Manual) 75 H Band Neutrophils % 1 Lymphocytes % (Manual) 16 L Monocytes % (Manual) 4 Metamyelocytes % 1 Myelocytes % 3 H Nucleated RBC % 23.8 H Differential Comment SCANNED Diff Path Review May foll Platelet Estimate MKD DEC Plt Morphology Comment Polychromasia 2+ Hypochromasia 2+ Anisocytosis 1+ 1+ Microcytosis RARE Ovalocytes RARE RARE Schistocytes 1+ 1+ Absolute Retic 4.28 PT INR APTT Sodium Potassium Chloride Carbon Dioxide Anion Gap BUN Creatinine Estim Creat Clear Calc Est GFR (MDRD) Af Amer Est GFR (MDRD) Non-Af BUN/Creatinine Ratio Glucose Calcium Vancomycin Trough Crossmatch See Detail 06/08/18 06/08/18 06/08/18 03:00 04:45 04:45 WBC 15.5 H RBC 2.83 L Hgb 8.4 L Hct 26.6 L MCV 94.0 MCH 29.7 MCHC 31.6 L RDW 16.7 H RDW Differential 54.9 H Plt Count 28 L* MPV 10.8 Neut % (Auto) Not Reportable Absolute Neuts (auto) 13.6 H Absolute Lymphs (auto) 1.25 Total Counted 100 Neutrophils % (Manual) 82 H Band Neutrophils % 6 H Lymphocytes % (Manual) 8 L Monocytes % (Manual) 1 Metamyelocytes % 3 H Myelocytes % Nucleated RBC % 28.9 H Differential Comment Diff Path Review May foll Platelet Estimate MKD DEC Plt Morphology Comment LARGE Polychromasia 1+ Hypochromasia 1+ Anisocytosis 1+ Microcytosis 1+ Ovalocytes Schistocytes Absolute Retic 4.47 PT INR APTT Sodium 155 H Potassium 3.3 L Chloride 125 H Carbon Dioxide 18.0 L Anion Gap 12 BUN 101 H* Creatinine 2.15 H Estim Creat Clear Calc 25.55 Est GFR (MDRD) Af Amer 38 L Est GFR (MDRD) Non-Af 32 L BUN/Creatinine Ratio 47.0 H Glucose 232 H Calcium 8.5 Vancomycin Trough 24.2 H Crossmatch 06/08/18 04:45 WBC RBC Hgb Hct MCV MCH MCHC RDW RDW Differential Plt Count MPV Neut % (Auto) Absolute Neuts (auto) Absolute Lymphs (auto) Total Counted Neutrophils % (Manual) Band Neutrophils % Lymphocytes % (Manual) Monocytes % (Manual) Metamyelocytes % Myelocytes % Nucleated RBC % Differential Comment Diff Path Review Platelet Estimate Plt Morphology Comment Polychromasia Hypochromasia Anisocytosis Microcytosis Ovalocytes Schistocytes Absolute Retic PT 19.5 H INR 1.7 APTT 32.6 Sodium Potassium Chloride Carbon Dioxide Anion Gap BUN Creatinine Estim Creat Clear Calc Est GFR (MDRD) Af Amer Est GFR (MDRD) Non-Af BUN/Creatinine Ratio Glucose Calcium Vancomycin Trough Crossmatch POC Glucose 06/08/18 06/07/18 06/07/18 05:15 23:54 16:40 POC Glucose 216 H 195 H 202 H 06/07/18 11:12 POC Glucose 219 H Medical Necessity - Tobacco Use Smoking Status: Former smoker Assessment/Plan All Active Problems (Last Reviewed 06/05/18 @ 07:40 by Dangelo Alvarado MD) Atrial fibrillation and flutter (Acute) Fever (Acute) Anemia (Acute) Thrombocytopenia (Acute) Bilateral hydronephrosis (Acute) 77-year-old male with gastric and duodenal ulcer 1. Patient's platelets continued to drop despite having infusions. Patient is having bleeding around his catheter and his nephrostomy tube. Patient may be having DIC. He remains febrile. 2. I discussed the possibility of rebleeding with the patient's son. I informed him that if the platelets continue to drop and he does develop DIC that the clot on the duodenal ulcer may release and he may rebleed. If that were to happen and he was stable I would try to perform a scope first but my only option in a catastrophic situation would be a laparotomy with oversewing of the duodenal ulcer. I explained the surgery to the patient's son as well as the very high risk of bleeding with a laparotomy. The patient will think about what he would like to do if that were to occur. At this time the patient wants everything done as does his son. Continue tube feeds and PPI. Heber Mccurdy MD Pager: [facility] [address] [place] [address] [address] [place] [address] Office:
[2018-06-08] MEDS: CHLORHEXIDINE GLUC 2% CLOTH 1 EACH TOWELETTE TOPICAL (10:08)
[2018-06-08] MEDS: Chlorhexidine 15 ML PO ×2 (10:08→21:38)
[2018-06-08] MEDS: Polyethylene Glycol 3350 17 GM PACKET GT ×2 (10:09→21:26)
[2018-06-08] MEDS: Amiodarone 200 MG Tablet PO (10:09)
[2018-06-08] MEDS: DULoxetine Hcl 30 MG Capsule PO (10:09)
[2018-06-08] MEDS: Senna/Docusate Sodium 1 Tablet 2 TABLET GT ×2 (10:09→21:26)
--- NOTE | 2018-06-08 11:15 | PCM.PN.HOSP ---
Patient Problems: Active and Suspected Problems (Last Reviewed 06/05/18 @ 07:40 by Dangelo Alvarado MD) Atrial fibrillation and flutter (Acute) Fever (Acute) Anemia (Acute) Thrombocytopenia (Acute) Bilateral hydronephrosis (Acute) DIC syndrome (Acute) Subjective: Patient was seen and examined. Remains febrile, temp 101.3F. Has dark brown urine with lots of sediments. Bilateral nephrostomy tubes is bloody but old blood. Patient remains awake, on mechanical ventilator. Discussed patient in depth with Dr. Weaver, Dr. Nicholson, Dr. Mccurdy - patient is in Acute DIC. Objective: Physical exam: General: awake, follows with the eyes and turns the head, intubated, on mechanical ventilator HEENT: Atraumatic, PERRLA, EOMI, Normocephalic Oral: Dry Mucosa Neck: Supple Lungs: Normal air movement, Diminished Cardiovascular: Regular rate, Regular Rhythm, Normal S1, Normal S2, No murmurs Abdomen: Bowel Sounds Present, Soft, Non Tender, Non-Distended, No Hepato-splenomegaly, - - Crump catheter in situ Bilateral nephrostomy tubes Extremities: No edema Skin: No rashes Musculoskeletal: No Tenderness to Palpation of Joints or Extremities Lymphatic: No Cervical, Supraclavicular, or Inguinal Adenopathy Neurological: Cranial nerves II-XII grossly intact, Neuro grossly intact Psych/Mental Status: Normal Affect, Appropriate Vitals/I&O's: Vital Signs Temp Pulse Resp BP Pulse Ox 100.8 F H 91 22 H 126/46 H 100 06/08/18 10:00 06/08/18 10:00 06/08/18 10:00 06/08/18 10:00 06/08/18 10:00 Oxygen Flow Rate (L/min) [4] 15 Oxygen Flow Rate (L/min) [3] 15 Oxygen Flow Rate (L/min) [2] 15 Oxygen Flow Rate (L/min) [1 ( 15 Initial Baseline)] Oxygen Flow Rate (L/min) 2 Oxygen Delivery Method [4] Ambu-Bag Oxygen Delivery Method [3] Ambu-Bag Oxygen Delivery Method [2] Ambu-Bag Oxygen Delivery Method [1 ( Ambu-Bag Initial Baseline)] Oxygen Delivery Method Mechanical Ventilator Weight: 79.7 kg Body Mass Index (BMI) 27.1 Finger Stick Blood Glucose 202 Intake and Output for Last 24 Hours 06/06/18 06/07/18 06/09/18 23:59 23:59 00:59 Intake Total 4487.5 / 4487.5 1787.8 / 1787.8 1411.1 / 1411.1 Output Total 1070 / 1070 1080 / 1080 600 / 600 Balance 3417.5 / 3417.5 707.8 / 707.8 811.1 / 811.1 Microbiology Past 72 Hours 06/02/18 01:24 Blood Culture (Wb) - Anticubital Left Blood Culture - Final No growth in 5 days. 06/02/18 01:10 Blood Culture (Wb) - Right Forearm Blood Culture - Final No growth in 5 days. 06/03/18 15:20 Urine Catheter - Crump Urine Culture - Final Enterococcus faecalis 06/03/18 14:55 Blood Culture (Wb) - Left Wrist Blood Culture - Preliminary No growth in 48 hours. 06/03/18 15:05 Blood Culture (Wb) - Anticubital Right Blood Culture - Preliminary No growth in 48 hours. 06/02/18 22:30 Sputum, Expectorated/Coughed Gram Stain - Final 06/02/18 22:30 Sputum, Expectorated/Coughed Respiratory Culture - Final Mixed normal respiratory betty. No Streptococcus pneumoniae, beta-hemolytic Streptococcus or Staphylococcus aureus isolated. Laboratory Results 06/07/18 11:12: POC Glucose 219 H 06/07/18 14:40: WBC 17.9 H, RBC 2.77 L, Hgb 8.2 L, Hct 25.7 L, MCV 92.8, MCH 29.6, MCHC 31.9 L, RDW 16.5 H, RDW Differential 54.3 H, Plt Count 43 L*, MPV 10.7, Neut % (Auto) Not Reportable, Absolute Neuts (auto) 13.6 H, Absolute Lymphs (auto) 2.86, Total Counted 100, Neutrophils % (Manual) 75 H, Band Neutrophils % 1, Lymphocytes % (Manual) 16 L, Monocytes % (Manual) 4, Metamyelocytes % 1, Myelocytes % 3 H, Nucleated RBC % 23.8 H, Differential Comment SCANNED, Diff Path Review May foll, Platelet Estimate MKD DEC, Polychromasia 2+, Hypochromasia 2+, Anisocytosis 1+, Microcytosis RARE, Ovalocytes RARE, Schistocytes 1+, Absolute Retic 4.28 06/07/18 16:40: POC Glucose 202 H 06/07/18 23:54: POC Glucose 195 H 06/08/18 03:00: Vancomycin Trough 24.2 H 06/08/18 04:45: WBC 15.5 H, RBC 2.83 L, Hgb 8.4 L, Hct 26.6 L, MCV 94.0, MCH 29.7, MCHC 31.6 L, RDW 16.7 H, RDW Differential 54.9 H, Plt Count 28 L*, MPV 10.8, Neut % (Auto) Not Reportable, Absolute Neuts (auto) 13.6 H, Absolute Lymphs (auto) 1.25, Total Counted 100, Neutrophils % (Manual) 82 H, Band Neutrophils % 6 H, Lymphocytes % (Manual) 8 L, Monocytes % (Manual) 1, Metamyelocytes % 3 H, Nucleated RBC % 28.9 H, Diff Path Review May foll, Platelet Estimate MKD DEC, Plt Morphology Comment LARGE, Polychromasia 1+, Hypochromasia 1+, Anisocytosis 1+, Microcytosis 1+, Absolute Retic 4.47 06/08/18 04:45: Sodium 155 H, Potassium 3.3 L, Chloride 125 H, Carbon Dioxide 18.0 L, Anion Gap 12, BUN 101 H*, Creatinine 2.15 H, Estim Creat Clear Calc 25.55, Est GFR (MDRD) Af Amer 38 L, Est GFR (MDRD) Non-Af 32 L, BUN/Creatinine Ratio 47.0 H, Glucose 232 H, Calcium 8.5 06/08/18 04:45: PT 19.5 H, INR 1.7, APTT 32.6 06/08/18 05:15: POC Glucose 216 H Current Medications Acetaminophen (Tylenol Liquid) 650 mg GT Q6H PRN PRN PRN Reason: Fever, headache, pain Last Admin: 06/06/18 16:13 Dose: 650 mg Amiodarone HCl (Cordarone) 200 mg PO BID [facility] Last Admin: 06/08/18 10:09 Dose: 200 mg Atorvastatin Calcium (Lipitor) 10 mg GT QHS [facility] Last Admin: 06/07/18 21:50 Dose: 10 mg Chlorhexidine Gluconate () 15 ml PO BID [facility] Last Admin: 06/08/18 10:08 Dose: 15 ml Chlorhexidine Gluconate () 1 each TOPICAL DAILY [facility] Last Admin: 06/08/18 10:08 Dose: 1 each Diltiazem HCl (Cardizem) 30 mg PO Q6 [facility] Last Admin: 06/08/18 05:17 Dose: 30 mg Duloxetine HCl (Cymbalta) 30 mg PO DAILY [facility] Last Admin: 06/08/18 10:09 Dose: 30 mg Sodium Chloride () 250 mls @ 15 mls/hr IV .[id number] PRN PRN Reason: SALINE FLUSH Last Admin: 06/06/18 17:05 Dose: 15 mls/hr Propofol (Diprivan) 1,000 mg in 100 mls @ 4.596 mls/hr CONT INF .Q12H [facility] Last Admin: 06/08/18 10:09 Dose: Not Given Piperacillin Sod/Tazobactam (Sod 3.375 gm/ Sodium Chloride) 50 mls @ 12.5 mls/hr IV Q8 [facility] Last Admin: 06/08/18 05:17 Dose: 12.5 mls/hr Vancomycin IV Pharmacy to Dose (1 ea/ Sodium Chloride) 500 mls @ 250 mls/hr IV X1 PRN; Protocol PRN Reason: Rx to Dose Fentanyl () 100 mls @ 2.5 mls/hr IV .Q40H [facility] Last Admin: 06/07/18 13:49 Dose: 2.5 mls/hr Pantoprazole Sodium 40 mg/ (Sodium Chloride) 110 mls @ 330 mls/hr IV Q12 [facility] Last Admin: 06/08/18 10:08 Dose: 330 mls/hr Dextrose () 500 mls @ 999 mls/hr IV .Q31M [facility] Last Admin: 06/08/18 10:08 Dose: 999 mls/hr Enteral Nutritional Formula (Vital Af 1.2 Abilio Liquid) 1,000 mls @ 50 mls/hr GT .Q20H [facility] Last Admin: 06/08/18 10:14 Dose: Not Given Insulin Glargine (Lantus (Bkc)) 20 units SC 06,18 [facility] Last Admin: 06/08/18 05:18 Dose: 20 u Insulin Human Lispro (Humalog Kwikpen (Bkc)) 0 unit SC Q6 [facility]; Protocol Last Admin: 06/08/18 05:18 Dose: 6 u Magnesium Hydroxide (Milk Of Magnesia) 30 ml GT DAILY PRN PRN Reason: Constipation Ondansetron HCl (Zofran) 4 mg IV Q6H PRN PRN PRN Reason: NAUSEA/VOMITING Polyethylene Glycol (Miralax) 17 gm GT BID [facility] Last Admin: 06/08/18 10:09 Dose: 17 gm Senna/Docusate Sodium (Senokot-S, Marianne-Colace) 2 tablet GT BID [facility] Last Admin: 06/08/18 10:09 Dose: 2 tablet Sodium Chloride () 5 - 15 ml IV UD PRN PRN Reason: SALINE FLUSH Last Admin: 06/07/18 14:48 Dose: 10 ml Sucralfate (Carafate) 1 gm GT TID [facility] Last Admin: 06/08/18 05:17 Dose: 1 gm Medical Necessity - Tobacco Use Smoking Status: Former smoker Assessment/Plan All Active Problems (Last Reviewed 06/05/18 @ 07:40 by Dangelo Alvarado MD) Atrial fibrillation and flutter (Acute) Fever (Acute) Anemia (Acute) Thrombocytopenia (Acute) Bilateral hydronephrosis (Acute) DIC syndrome (Acute) 77-year-old male with past medical history of metastatic prostate cancer to the bone, history of aortic valve replacement with bioprosthetic valve, CKD, hypertension, BPH admitted on 06/02/18 with altered mental status initially managed as sepsis secondary to acute cystitis. Patient was found to have gone into respiratory failure resulting in intubation and transfer to the ICU. He has since been managed in ICU. 1. Acute respiratory failure, unclear etiology, likely metabolically related, remains intubated, on mechanical ventilator, mine foreman consulted, will continue per recommendations. 2. Acute DIC, thrombocytopenia, likely secondary to sepsis, will transfuse FFP and cryoprecipitate if patient bleeds or platelet drops. 3. A. fib/A. flutter with RVR, history of paroxysmal atrial fibrillation, in NSR, on iv amiodarone and Cardizem, heparin drip held on account of GI bleed. 4. Anemia, microcytic microchomic secondary to acute GI bleed, s/p 4 units pRBCs, Hgb is 8.4, HH will continue to be trended 5. Acute GI bleed status post EGD, secondary to gastric and duodenal ulcer, on IV PPI and sucralfate, no further bleeding seen. 6. Sepsis secondary to enterococcus UTI, possible CAP, on Zosyn and Vancomycin, WBC count slightly improved, Blood cultures are negative. Repeat blood culture negative. Urine cultures showed Enterococcus faelis. CALI planned for tomorrow. 7. History of bioprosthetic aortic valve, CALI planned for tomorrow, unsure if it will happen height of acute DIC as well as recommendations for hospice 8. Acute complicated UTI secondary to bilateral hydronephrosis, history of metastatic prostate CA, s/p nephrostomy tubes, bloody urine in bags 9. JUAN JOSE on CKD stage 3, Cr remains unchanged, secondary to dehydration/sepsis, will continue to monitor 10. Hypertension, controlled, on metoprolol 12.5mg GT BID, will continue to monitor 11. Metastatic prostate cancer with metastases to the bone, never treated 12. BPH s/p crump catheter 13. DVT PPx- SCDs - Heparin on hold for GI bleed Code Visit Inpatient E&M: 46473 Subs Hosp L2
--- NOTE | 2018-06-08 11:34 | ONC.CONS.INP ---
Consult Referring Physician: Dr. Chapin Nicholson Consult Results: Acute DIC Subjective Date of Service:: 06/08/18 Chief Complaint: Asked to see Pt for thrombocytopenia. History of Present Illness: 77y.o.man with history of paroxysmal atrial fibrillation history of aortic valve replacement hypertension hyperlipidemia diabetes and metastatic prostate cancer was admitted with general weakness, change in mental status. He was found to have enterococcal UTI with possible pneumonia and started on Zosyn and vancomycin. CT scan showed bilateral hydronephrosis on 06/04/2018. He had right nephrostomy tube placed on 06/05/2018. His platelets have been falling, found to have increased PT with increased D-dimers and low fibrinogen level suggestive of DIC. He has received platelet transfusion. He is now in the ICU intubated and sedated. Past Medical History: Chronic Problems (Last Reviewed 06/05/18 @ 07:40 by Dangelo Alvarado MD) Renal insufficiency (Chronic) Prostate cancer metastatic to bone (Chronic) Stage III chronic kidney disease (Chronic) Dyslipidemia (Chronic) Paroxysmal atrial fibrillation (Chronic) History of aortic valve replacement with bioprosthetic valve (Chronic ~11/12/16) Trifecta GT Tissue Heart Valve Serial # [id number] Model [id number] [id number] @ [facility] BPH with urinary obstruction (Chronic) Hypertension (Chronic) Past Medical/Surgical History: Past Medical History - Most Recent Inpatient Visit Past Medical History Start: 06/02/18 03:51 Text: Status: Complete Freq: ONCE Protocol: Document 06/02/18 03:51 [facility] (Rec: 06/02/18 03:57 [facility] [id number]) BMI Required to complete PMH What is Patient's BMI 27 Past Medical History Unable History Recalled Yes: family was present in er, Query Text:Pt Unable/Family Not Present but went home. Neurologic Medical History Hx Stroke/TIA No Hx Dementia/Alzheimer's No Hx Parkinson's Disease Yes: [employer]; worsening Hx Seizures No Hx Multiple Sclerosis No Hx Migraines No Cardiac Medical History VTE Present on Admission No Hx of Deep Vein Thrombosis/VTE/PE No Hx Hypertension Yes: STATES CONTROLLED WITH MED Hx Chest Pain/Angina No Hx Heart Attack No Hx Cardiac Surgery/Stents/Etc. Yes: VALVE REPLACEMENT, AORTIC Hx Heart Failure No Hx Pacemaker/AICD No Hx Irregular Heartbeat and/or Afib Yes: AFIB, DR LARSEN 08/2017 Hx Anticoagulant Therapy Yes Query Text:(Coumadin, Aspirin, Plavix, Xarelto, etc.) Hx Pain in Legs when Walking/Leg Cramps No Respiratory Medical History Hx COPD Yes: the start of it Hx Emphysema No Hx Smoking No Smoking Status Former smoker Hx Smoking Cessation Counseling No Hx Smoking Exposure No Hx Tobacco Use in last 12 months No Hx of Pipe Smoking No Hx Sleep Apnea No Do you snore loudly (louder than talking No or can be heard through closed doors)? Do you often feel tired/ fatigued/ No sleepy during daytime? Has anyone observed you stop breathing No during sleep? STOP Results Negative GI Medical History Hx Ulcer No Hx Hepatitis No Hx Cirrhosis No Hx GI Bleed No Hx Unplanned Weight Loss Yes: 30lb wt loss w/in last yr Genitourinary Medical History Indwelling Catheter in Place on Arrival/ Yes Admission Hx Renal Disease Yes: ENLARGED PROSTATE, recent turp, scar tissue build up Hx Dialysis No Comments crump placed in er. Musculoskeletal History Hx Arthritis Yes: OA Hx Rheumatoid Arthritis No Endocrine Medical History Hx Diabetes Yes: ORAL Hx Thyroid Disease No Hematologic Medical History Patient unable to answer at this time ( Yes ie. confused, unresponsive etc...) Psycho/Social Medical History Hx Depression No Hx Anxiety Yes: ON MED Hx Behavior Disorder No Hx Alcohol Use No Hx Substance Use No Other Medical History Hx Blood Disorders No Hx Anemia No Hx Cancer Yes: BASIL,MELANOMA, EAR, BACK , prostate Hx Drug Resistant Organism No Wound/Pressure Injury Present on Arrival Yes /Admission Query Text:If yes, chart assessment in Shift/Clinical Findings Central Line/PICC/VAD Present on Arrival No /Admission Antibiotics within last 7 days? No Methicillin Resistant Staphylococcus aureus Screening Active MRSA No Risk for Readmission Number of Risk Factors 8 At Risk for Readmission Patient is At Risk For Readmission Patient is eligible for Call Back Y Past Medical History (Last Reviewed 06/05/18 @ 07:40 by Dangelo Alvarado MD) Dyslipidemia (Chronic) Paroxysmal atrial fibrillation (Chronic) BPH with urinary obstruction (Chronic) Hypertension (Chronic) Arthritis (Chronic) GERD (gastroesophageal reflux disease) (Chronic) Macrocytic anemia (Chronic) Mass of bladder (Chronic) Type 2 diabetes mellitus without complications (Chronic) Past Surgical History (Last Reviewed 06/05/18 @ 07:40 by Dangelo Alvarado MD) History of aortic valve replacement with bioprosthetic valve (Chronic ~11/12/16) Sibling Family History: Family History (Last Reviewed 06/05/18 @ 07:40 by Dangelo Alvarado MD) Sister Heart disease Brother Cancer Family History: Heart Disease Maternal Family History: Family History (Last Reviewed 06/05/18 @ 07:40 by Dangelo Alvarado MD) Sister Heart disease Brother Cancer Family History: No pertinent history Paternal Family History: Family History (Last Reviewed 06/05/18 @ 07:40 by Dangelo Alvarado MD) Sister Heart disease Brother Cancer Family History: No pertinent history - Social History Lives: Alone Smoking Status: Former smoker Alcohol: None, Rare Allergies/Adverse Reactions: Allergy/AdvReac Type Severity Reaction Status Date / Time albuterol Allergy Unknown Verified 06/02/18 01:14 clonazepam Allergy Unknown Verified 06/02/18 01:14 ibuprofen Allergy Unknown Verified 06/02/18 01:14 ipratropium Allergy Unknown Verified 06/02/18 01:14 aspirin AdvReac Vomiting Verified 06/02/18 01:14 Review of Systems Constitutional:: Reports: - - Intubated, cannot give history. Vital Signs Height 5 ft 6 in Weight: 79.7 kg Weight in Pounds 175.7 lbs Pulse Ox 99 Temperature 101 F Pulse Rate [4] 89 Pulse Rate [3] 90 Pulse Rate [2] 90 Pulse Rate [1 (Initial 90 Baseline)] Pulse Rate 91 Respiratory Rate [4] 12 Respiratory Rate [3] 12 Respiratory Rate [2] 12 Respiratory Rate [1 (Initial 14 Baseline)] Respiratory Rate 24 Blood Pressure [BP] 116/43 Blood Pressure [4] 110/44 Blood Pressure [3] 128/65 Blood Pressure [2] 112/49 Blood Pressure [1 (Initial 98/48 Baseline)] Blood Pressure 113/49 Blood Pressure Position [BP] Semi-Fowlers Blood Pressure Position Semi-Fowlers - Physical Exam General: No apparent distress - intubated,sedated. Neck:: Trachea midline Cardiac:: Regular rate, Regular rhythm, Normal S1, Normal S2. Negative for: Murmur Lungs: Clear to auscultation, Excusion symmetrical. Negative for: Rhonchi, Wheezes Lymphatics:: Negative for: Cervical lymphadenopathy, Supraclavicular lymphadenopathy, Axillary lymphadenopathy Laboratory Data: Microbiology 06/02/18 01:24 Blood Culture - Final Blood Culture (Wb) - Anticubital Left No growth in 5 days. 06/02/18 01:10 Blood Culture - Final Blood Culture (Wb) - Right Forearm No growth in 5 days. 06/03/18 15:20 Urine Culture - Final Urine Catheter - Crump Enterococcus faecalis 06/03/18 14:55 Blood Culture - Preliminary Blood Culture (Wb) - Left Wrist No growth in 48 hours. 06/03/18 15:05 Blood Culture - Preliminary Blood Culture (Wb) - Anticubital Right No growth in 48 hours. 06/02/18 22:30 Gram Stain - Final Sputum, Expectorated/Coughed Respiratory Culture - Final Mixed normal respiratory betty. No Streptococcus pneumoniae, beta-hemolytic Streptococcus or Staphylococcus aureus isolated. Laboratory Tests 06/08/18 06/08/18 06/08/18 Range/Units 05:15 04:45 04:45 WBC (4.4-11.0) K/mm3 RBC (4.6-6.2) M/mm3 Hgb (13.0-16.5) g/dl Hct (40-54) % MCV (80-94) fL MCH (27.0-32.0) pg MCHC (32-36) g/gl RDW (11.6-14.6) % RDW Differential (35.1-43.9) fl Plt Count (150-450) K/mm3 MPV (6.2-12.0) fl Neut % (Auto) Absolute Neuts (auto) (2.0-7.7) X10^3/uL Absolute Lymphs (auto) (0.83-4.51) X10^3/ul Total Counted (MANUAL DIFF) Neutrophils % (Manual) (47-70) % Band Neutrophils % (0-5) % Lymphocytes % (Manual) (19-41) % Monocytes % (Manual) (0-10) % Metamyelocytes % (0-1) % Myelocytes % (0-0) Nucleated RBC % (0-5) % Differential Comment Diff Path Review Platelet Estimate (ADEQ) Plt Morphology Comment Polychromasia Hypochromasia Anisocytosis Microcytosis Ovalocytes Schistocytes Absolute Retic (0-5) 10^3/uL PT 19.5 H (11.7-14.9) SECONDS INR 1.7 APTT 32.6 (24.1-36.2) Seconds Sodium 155 H (136-145) mmol/L Potassium 3.3 L (3.5-5.1) mmol/L Chloride 125 H (98-107) mmol/L Carbon Dioxide 18.0 L (21.0-32.0) mmol/L Anion Gap 12 (5-15) BUN 101 H* (7-18) mg/dL Creatinine 2.15 H (0.70-1.30) mg/dL Estim Creat Clear Calc 25.55 ml/min Est GFR (MDRD) Af Amer 38 L (>60) mL/min Est GFR (MDRD) Non-Af 32 L (>60) mL/min BUN/Creatinine Ratio 47.0 H (10-20) RATIO Glucose 232 H (74-106) mg/dL Calcium 8.5 (8.5-10.1) mg/dL Vancomycin Trough (5.0-15.0) ug/mL POC Glucose 216 H (70-110) mg/dL 06/08/18 06/08/18 06/07/18 Range/Units 04:45 03:00 23:54 WBC 15.5 H (4.4-11.0) K/mm3 RBC 2.83 L (4.6-6.2) M/mm3 Hgb 8.4 L (13.0-16.5) g/dl Hct 26.6 L (40-54) % MCV 94.0 (80-94) fL MCH 29.7 (27.0-32.0) pg MCHC 31.6 L (32-36) g/gl RDW 16.7 H (11.6-14.6) % RDW Differential 54.9 H (35.1-43.9) fl Plt Count 28 L* (150-450) K/mm3 MPV 10.8 (6.2-12.0) fl Neut % (Auto) Not Reportable Absolute Neuts (auto) 13.6 H (2.0-7.7) X10^3/uL Absolute Lymphs (auto) 1.25 (0.83-4.51) X10^3/ul Total Counted 100 (MANUAL DIFF) Neutrophils % (Manual) 82 H (47-70) % Band Neutrophils % 6 H (0-5) % Lymphocytes % (Manual) 8 L (19-41) % Monocytes % (Manual) 1 (0-10) % Metamyelocytes % 3 H (0-1) % Myelocytes % (0-0) Nucleated RBC % 28.9 H (0-5) % Differential Comment Diff Path Review May foll Platelet Estimate MKD DEC (ADEQ) Plt Morphology Comment LARGE Polychromasia 1+ Hypochromasia 1+ Anisocytosis 1+ Microcytosis 1+ Ovalocytes Schistocytes Absolute Retic 4.47 (0-5) 10^3/uL PT (11.7-14.9) SECONDS INR APTT (24.1-36.2) Seconds Sodium (136-145) mmol/L Potassium (3.5-5.1) mmol/L Chloride (98-107) mmol/L Carbon Dioxide (21.0-32.0) mmol/L Anion Gap (5-15) BUN (7-18) mg/dL Creatinine (0.70-1.30) mg/dL Estim Creat Clear Calc ml/min Est GFR (MDRD) Af Amer (>60) mL/min Est GFR (MDRD) Non-Af (>60) mL/min BUN/Creatinine Ratio (10-20) RATIO Glucose (74-106) mg/dL Calcium (8.5-10.1) mg/dL Vancomycin Trough 24.2 H (5.0-15.0) ug/mL POC Glucose 195 H (70-110) mg/dL 06/07/18 06/07/18 06/07/18 Range/Units 16:40 14:40 11:12 WBC 17.9 H (4.4-11.0) K/mm3 RBC 2.77 L (4.6-6.2) M/mm3 Hgb 8.2 L (13.0-16.5) g/dl Hct 25.7 L (40-54) % MCV 92.8 (80-94) fL MCH 29.6 (27.0-32.0) pg MCHC 31.9 L (32-36) g/gl RDW 16.5 H (11.6-14.6) % RDW Differential 54.3 H (35.1-43.9) fl Plt Count 43 L* (150-450) K/mm3 MPV 10.7 (6.2-12.0) fl Neut % (Auto) Not Reportable Absolute Neuts (auto) 13.6 H (2.0-7.7) X10^3/uL Absolute Lymphs (auto) 2.86 (0.83-4.51) X10^3/ul Total Counted 100 (MANUAL DIFF) Neutrophils % (Manual) 75 H (47-70) % Band Neutrophils % 1 (0-5) % Lymphocytes % (Manual) 16 L (19-41) % Monocytes % (Manual) 4 (0-10) % Metamyelocytes % 1 (0-1) % Myelocytes % 3 H (0-0) Nucleated RBC % 23.8 H (0-5) % Differential Comment SCANNED Diff Path Review May foll Platelet Estimate MKD DEC (ADEQ) Plt Morphology Comment Polychromasia 2+ Hypochromasia 2+ Anisocytosis 1+ Microcytosis RARE Ovalocytes RARE Schistocytes 1+ Absolute Retic 4.28 (0-5) 10^3/uL PT (11.7-14.9) SECONDS INR APTT (24.1-36.2) Seconds Sodium (136-145) mmol/L Potassium (3.5-5.1) mmol/L Chloride (98-107) mmol/L Carbon Dioxide (21.0-32.0) mmol/L Anion Gap (5-15) BUN (7-18) mg/dL Creatinine (0.70-1.30) mg/dL Estim Creat Clear Calc ml/min Est GFR (MDRD) Af Amer (>60) mL/min Est GFR (MDRD) Non-Af (>60) mL/min BUN/Creatinine Ratio (10-20) RATIO Glucose (74-106) mg/dL Calcium (8.5-10.1) mg/dL Vancomycin Trough (5.0-15.0) ug/mL POC Glucose 202 H 219 H (70-110) mg/dL Laboratory Tests 06/07/18 06/08/18 06:50 04:45 PT 19.5 H APTT 32.6 Fibrinogen 156 L D-Dimer Quant (PE/DVT) > 20.00 H* Diagnostic Data: Diagnostic Data Brain CT 06/02/18 01:25 IMPRESSION: No acute findings. Individualized dose optimization techniques were used for this CT. at 0159 Reported and signed by: Geoff Joaquin MD Electronically Signed: Geoff Joaquin, at 1:58 EST Tel , Service support , Cervical Spine CT 06/02/18 01:25 IMPRESSION: No fracture or dislocation of the cervical spine. Individualized dose optimization techniques were used for this CT. at 0206 Reported and signed by: Geoff Joaquin MD Electronically Signed: Geoff Joaquin, at 2:05 EST Tel , Service support , Lung Scan-VQ NM 06/02/18 13:55 IMPRESSION: Low quality VQ scan, most consistent with low probability of pulmonary embolism. Electronically Signed: Kenny Greeen MD at 16:31 EST , Service support , Chest CT 06/02/18 21:14 IMPRESSION: Small bilateral pleural effusions with overlying atelectasis. Sclerotic osseous lesions which are suspicious for metastasis. Electronically Signed: Juan Ruiz, at 22:14 EST Tel , Service support , Chest X-Ray 06/02/18 22:26 IMPRESSION: Mild left basilar atelectasis status post endotracheal tube placement Electronically Signed: Norbert Snyder MD at 23:18 EST , Service support , Abdomen CT 06/04/18 12:33 IMPRESSION: Bilateral hydronephrosis right greater than left with bilateral hydroureter. Diffusely thickened bladder wall. Electronically Signed: Javier Unger, at 15:28 EST , Service support , Nephrostomy Tube Change 06/05/18 07:41 IMPRESSION: 1. The percutaneous right nephrostomy catheter is in good position with the pigtail portion located in the right renal pelvis. 2. The conscious sedation protocol was followed. Electronically Signed: Javier Unger, at 14:33 EST , Service support , Assessment and Plan Acute DIC most likely sepsis related. Prognosis is poor. Suggestions: 1. Continue management of sepsis. 2. To use FFP, cryoprecipitate and platelet transfusion as needed to prevent bleeding and keep PLT greater than 10. Call if there are new problems. Thank you. Medications: Prescriptions This Visit Medication Instructions Recorded Metoprolol Tartrate [Lopressor 50 mg PO BID 06/02/18 (beta lisa)] Medications Added to Medication List This Visit Category Date Time Status Vital AF 1.2 Abilio Liquid 1,000 ml Med 06/08/18 09:18 Active GT 50 mls/hr Primary Care Provider: Amber Hyatt Referring Provider: Sally Cm MD - Problem List (1) DIC syndrome Status: Acute Code Visit Office Visits / Consults: 48097 IP Consult L5
--- NOTE | 2018-06-08 11:41 | CON.PCM_ITS ---
Consult Referring Physician: Dr. Chapin Nicholson Consult Results: Acute DIC Subjective Date of Service:: 06/08/18 Chief Complaint: Asked to see Pt for thrombocytopenia. History of Present Illness: 77y.o.man with history of paroxysmal atrial fibrillation history of aortic valve replacement hypertension hyperlipidemia diabetes and metastatic prostate cancer was admitted with general weakness, change in mental status. He was found to h ave enterococcal UTI with possible pneumonia and started on Zosyn and vancomycin. CT scan showed bilateral hydronephrosis on 06/04/2018. He had right nephrostomy tube placed on 06/05/2018. His platelets have been falling, found to have increased PT with increased D-dimers and low fibrinogen level suggestive of DIC. He has received platelet transfusion. He is now in the ICU intubated and sedated. Past Medical History: Chronic Problems (Last Reviewed 06/05/18 @ 07:40 by Dangelo Alvarado MD) Renal insufficiency (Chronic) Prostate cancer metastatic to bone (Chronic) Stage III chronic kidney disease (Chronic) Dyslipidemia (Chronic) Paroxysmal atrial fibrillation (Chronic) History of aortic valve replacement with bioprosthetic valve (Chronic ~11/12/16) Trifecta GT Tissue Heart Valve Serial # [id number] Model TFGT- 25A @ [facility] BPH with urinary obstruction (Chronic) Hypertension (Chronic) Past Medical/Surgical History: Past Medical History - Most Recent Inpatient Visit Past Medical History Start: 06/02/18 03:51 Text: Status: Complete Freq: ONCE Protocol: Document 06/02/18 03:51 [facility] (Rec: 06/02/18 03:57 [facility] [id number]) BMI Required to complete PMH What is Patient's BMI 27 Past Medical History Unable History Recalled Yes: family was present in er, Query Text:Pt Unable/Family Not Present but went home. Neurologic Medical History Hx Stroke/TIA No Hx Dementia/Alzheimer's No Hx Parkinson's Disease Yes: [employer]; worsening Hx Seizures No Hx Multiple Sclerosis No Hx Migraines No Cardiac Medical History VTE Present on Admission No Hx of Deep Vein Thrombosis/VTE/PE No Hx Hypertension Yes: STATES CONTROLLED WITH MED Hx Chest Pain/Angina No Hx Heart Attack No Hx Cardiac Surgery/Stents/Etc. Yes: VALVE REPLACEMENT, AORTIC Hx Heart Failure No Hx Pacemaker/AICD No Hx Irregular Heartbeat and/or Afib Yes: AFIB, DR LARSEN 08/2017 Hx Anticoagulant Therapy Yes Query Text:(Coumadin, Aspirin, Plavix, Xarelto, etc.) Hx Pain in Legs when Walking/Leg Cramps No Respiratory Medical History Hx COPD Yes: the start of it Hx Emphysema No Hx Smoking No Smoking Status Former smoker Hx Smoking Cessation Counseling No Hx Smoking Exposure No Hx Tobacco Use in last 12 months No Hx of Pipe Smoking No Hx Sleep Apnea No Do you snore loudly (louder than talking No or can be heard through closed doors)? Do you often feel tired/ fatigued/ No sleepy during daytime? Has anyone observed you stop breathing No during sleep? STOP Results Negative GI Medical History Hx Ulcer No Hx Hepatitis No Hx Cirrhosis No Hx GI Bleed No Hx Unplanned Weight Loss Yes: 30lb wt loss w/in last yr Genitourinary Medical History Indwelling Catheter in Place on Arrival/ Yes Admission Hx Renal Disease Yes: ENLARGED PROSTATE, recent turp, scar tissue build up Hx Dialysis No Comments crump placed in er. Musculoskeletal History Hx Arthritis Yes: OA Hx Rheumatoid Arthritis No Endocrine Medical History Hx Diabetes Yes: ORAL Hx Thyroid Disease No Hematologic Medical History Patient unable to answer at this time ( Yes ie. confused, unresponsive etc...) Psycho/Social Medical History Hx Depression No Hx Anxiety Yes: ON MED Hx Behavior Disorder No Hx Alcohol Use No Hx Substance Use No Other Medical History Hx Blood Disorders No Hx Anemia No Hx Cancer Yes: BASIL,MELANOMA, EAR, BACK , prostate Hx Drug Resistant Organism No Wound/Pressure Injury Present on Arrival Yes /Admission Query Text:If yes, chart assessment in Shift/Clinical Findings Central Line/PICC/VAD Present on Arrival No /Admission Antibiotics within last 7 days? No Methicillin Resistant Staphylococcus aureus Screening Active MRSA No Risk for Readmission Number of Risk Factors 8 At Risk for Readmission Patient is At Risk For Readmission Patient is eligible for Call Back Y Past Medical History (Last Reviewed 06/05/18 @ 07:40 by Dangelo Alvarado MD) Dyslipidemia (Chronic) Paroxysmal atrial fibrillation (Chronic) BPH with urinary obstruction (Chronic) Hypertension (Chronic) Arthritis (Chronic) GERD (gastroesophageal reflux disease) (Chronic) Macrocytic anemia (Chronic) Mass of bladder (Chronic) Type 2 diabetes mellitus without complications (Chronic) Past Surgical History (Last Reviewed 06/05/18 @ 07:40 by Dangelo Alvarado MD) History of aortic valve replacement with bioprosthetic valve (Chronic ~11/12/16) Sibling Family History: Family History (Last Reviewed 06/05/18 @ 07:40 by Dangelo Alvarado MD) Sister Heart disease Brother Cancer Family History: Heart Disease Maternal Family History: Family History (Last Reviewed 06/05/18 @ 07:40 by Dangelo Alvarado MD) Sister Heart disease Brother Cancer Family History: No pertinent history Paternal Family History: Family History (Last Reviewed 06/05/18 @ 07:40 by Dangelo Alvarado MD) Sister Heart disease Brother Cancer Family History: No pertinent history - Social History Lives: Alone Smoking Status: Former smoker Alcohol: None, Rare Allergies/Adverse Reactions: Allergy/AdvReac Type Severity Reaction Status Date / Time albuterol Allergy Unknown Verified 06/02/18 01:14 clonazepam Allergy Unknown Verified 06/02/18 01:14 ibuprofen Allergy Unknown Verified 06/02/18 01:14 ipratropium Allergy Unknown Verified 06/02/18 01:14 aspirin AdvReac Vomiting Verified 06/02/18 01:14 Review of Systems Constitutional:: Reports: - - Intubated, cannot give history. Vital Signs Height 5 ft 6 in Weight: 79.7 kg Weight in Pounds 175.7 lbs Pulse Ox 99 Temperature 101 F Pulse Rate [4] 89 Pulse Rate [3] 90 Pulse Rate [2] 90 Pulse Rate [1 (Initial 90 Baseline)] Pulse Rate 91 Respiratory Rate [4] 12 Respiratory Rate [3] 12 Respiratory Rate [2] 12 Respiratory Rate [1 (Initial 14 Baseline)] Respiratory Rate 24 Blood Pressure [BP] 116/43 Blood Pressure [4] 110/44 Blood Pressure [3] 128/65 Blood Pressure [2] 112/49 Blood Pressure [1 (Initial 98/48 Baseline)] Blood Pressure 113/49 Blood Pressure Position [BP] Semi-Fowlers Blood Pressure Position Semi-Fowlers - Physical Exam General: No apparent distress - intubated,sedated. Neck:: Trachea midline Cardiac:: Regular rate, Regular rhythm, Normal S1, Normal S2. Negative for: Murmur Lungs: Clear to auscultation, Excusion symmetrical. Negative for: Rhonchi, Wheezes Lymphatics:: Negative for: Cervical lymphadenopathy, Supraclavicular lymphadenopathy, Axillary lymphadenopathy Laboratory Data: Microbiology 06/02/18 01:24 Blood Culture - Final Blood Culture (Wb) - Anticubital Left No growth in 5 days. 06/02/18 01:10 Blood Culture - Final Blood Culture (Wb) - Right Forearm No growth in 5 days. 06/03/18 15:20 Urine Culture - Final Urine Catheter - [place] Enterococcus faecalis 06/03/18 14:55 Blood Culture - Preliminary Blood Culture (Wb) - Left Wrist No growth in 48 hours. 06/03/18 15:05 Blood Culture - Preliminary Blood Culture (Wb) - Anticubital Right No growth in 48 hours. 06/02/18 22:30 Gram Stain - Final Sputum, Expectorated/Coughed Respiratory Culture - Final Mixed normal respiratory betty. No Streptococcus pneumoniae, beta-hemolytic Streptococcus or Staphylococcus aureus isolated. Laboratory Tests 06/08/18 06/08/18 06/08/18 Range/Units 05:15 04:45 04:45 WBC (4.4-11.0) K/mm3 RBC (4.6-6.2) M/mm3 Hgb (13.0-16.5) g/dl Hct (40-54) % MCV (80-94) fL MCH (27.0-32.0) pg MCHC (32-36) g/gl RDW (11.6-14.6) % RDW Differential (35.1-43.9) fl Plt Count (150-450) K/mm3 MPV (6.2-12.0) fl Neut % (Auto) Absolute Neuts (auto) (2.0-7.7) X10^3/uL Absolute Lymphs (auto) (0.83-4.51) X10^3/ul Total Counted (MANUAL DIFF) Neutrophils % (Manual) (47-70) % Band Neutrophils % (0-5) % Lymphocytes % (Manual) (19-41) % Monocytes % (Manual) (0-10) % Metamyelocytes % (0-1) % Myelocytes % (0-0) Nucleated RBC % (0-5) % Differential Comment Diff Path Review Platelet Estimate (ADEQ) Plt Morphology Comment Polychromasia Hypochromasia Anisocytosis Microcytosis Ovalocytes Schistocytes Absolute Retic (0-5) 10^3/uL PT 19.5 H (11.7-14.9) SECONDS INR 1.7 APTT 32.6 (24.1-36.2) Seconds Sodium 155 H (136-145) mmol/L Potassium 3.3 L (3.5-5.1) mmol/L Chloride 125 H (98-107) mmol/L Carbon Dioxide 18.0 L (21.0-32.0) mmol/L Anion Gap 12 (5-15) BUN 101 H* (7-18) mg/dL Creatinine 2.15 H (0.70-1.30) mg/dL Estim Creat Clear Calc 25.55 ml/min Est GFR (MDRD) Af Amer 38 L (>60) mL/min Est GFR (MDRD) Non-Af 32 L (>60) mL/min BUN/Creatinine Ratio 47.0 H (10-20) RATIO Glucose 232 H (74-106) mg/dL Calcium 8.5 (8.5-10.1) mg/dL Vancomycin Trough (5.0-15.0) ug/mL POC Glucose 216 H (70-110) mg/dL 06/08/18 06/08/18 06/07/18 Range/Units 04:45 03:00 23:54 WBC 15.5 H (4.4-11.0) K/mm3 RBC 2.83 L (4.6-6.2) M/mm3 Hgb 8.4 L (13.0-16.5) g/dl Hct 26.6 L (40-54) % MCV 94.0 (80-94) fL MCH 29.7 (27.0-32.0) pg MCHC 31.6 L (32-36) g/gl RDW 16.7 H (11.6-14.6) % RDW Differential 54.9 H (35.1-43.9) fl Plt Count 28 L* (150-450) K/mm3 MPV 10.8 (6.2-12.0) fl Neut % (Auto) Not Reportable Absolute Neuts (auto) 13.6 H (2.0-7.7) X10^3/uL Absolute Lymphs (auto) 1.25 (0.83-4.51) X10^3/ul Total Counted 100 (MANUAL DIFF) Neutrophils % (Manual) 82 H (47-70) % Band Neutrophils % 6 H (0-5) % Lymphocytes % (Manual) 8 L (19-41) % Monocytes % (Manual) 1 (0-10) % Metamyelocytes % 3 H (0-1) % Myelocytes % (0-0) Nucleated RBC % 28.9 H (0-5) % Differential Comment Diff Path Review May foll Platelet Estimate MKD DEC (ADEQ) Plt Morphology Comment LARGE Polychromasia 1+ Hypochromasia 1+ Anisocytosis 1+ Microcytosis 1+ Ovalocytes Schistocytes Absolute Retic 4.47 (0-5) 10^3/uL PT (11.7-14.9) SECONDS INR APTT (24.1-36.2) Seconds Sodium (136-145) mmol/L Potassium (3.5-5.1) mmol/L Chloride (98-107) mmol/L Carbon Dioxide (21.0-32.0) mmol/L Anion Gap (5-15) BUN (7-18) mg/dL Creatinine (0.70-1.30) mg/dL Estim Creat Clear Calc ml/min Est GFR (MDRD) Af Amer (>60) mL/min Est GFR (MDRD) Non-Af (>60) mL/min BUN/Creatinine Ratio (10-20) RATIO Glucose (74-106) mg/dL Calcium (8.5-10.1) mg/dL Vancomycin Trough 24.2 H (5.0-15.0) ug/mL POC Glucose 195 H (70-110) mg/dL 06/07/18 06/07/18 06/07/18 Range/Units 16:40 14:40 11:12 WBC 17.9 H (4.4-11.0) K/mm3 RBC 2.77 L (4.6-6.2) M/mm3 Hgb 8.2 L (13.0-16.5) g/dl Hct 25.7 L (40-54) % MCV 92.8 (80-94) fL MCH 29.6 (27.0-32.0) pg MCHC 31.9 L (32-36) g/gl RDW 16.5 H (11.6-14.6) % RDW Differential 54.3 H (35.1-43.9) fl Plt Count 43 L* (150-450) K/mm3 MPV 10.7 (6.2-12.0) fl Neut % (Auto) Not Reportable Absolute Neuts (auto) 13.6 H (2.0-7.7) X10^3/uL Absolute Lymphs (auto) 2.86 (0.83-4.51) X10^3/ul Total Counted 100 (MANUAL DIFF) Neutrophils % (Manual) 75 H (47-70) % Band Neutrophils % 1 (0-5) % Lymphocytes % (Manual) 16 L (19-41) % Monocytes % (Manual) 4 (0-10) % Metamyelocytes % 1 (0-1) % Myelocytes % 3 H (0-0) Nucleated RBC % 23.8 H (0-5) % Differential Comment SCANNED Diff Path Review May foll Platelet Estimate MKD DEC (ADEQ) Plt Morphology Comment Polychromasia 2+ Hypochromasia 2+ Anisocytosis 1+ Microcytosis RARE Ovalocytes RARE Schistocytes 1+ Absolute Retic 4.28 (0-5) 10^3/uL PT (11.7-14.9) SECONDS INR APTT (24.1-36.2) Seconds Sodium (136-145) mmol/L Potassium (3.5-5.1) mmol/L Chloride (98-107) mmol/L Carbon Dioxide (21.0-32.0) mmol/L Anion Gap (5-15) BUN (7-18) mg/dL Creatinine (0.70-1.30) mg/dL Estim Creat Clear Calc ml/min Est GFR (MDRD) Af Amer (>60) mL/min Est GFR (MDRD) Non-Af (>60) mL/min BUN/Creatinine Ratio (10-20) RATIO Glucose (74-106) mg/dL Calcium (8.5-10.1) mg/dL Vancomycin Trough (5.0-15.0) ug/mL POC Glucose 202 H 219 H (70-110) mg/dL Laboratory Tests 06/07/18 06/08/18 06:50 04:45 PT 19.5 H APTT 32.6 Fibrinogen 156 L D-Dimer Quant (PE/DVT) > 20.00 H* Diagnostic Data: Diagnostic Data Brain CT 06/02/18 01:25 IMPRESSION: No acute findings. Individualized dose optimization techniques were used for this CT. at 0159 Reported and signed by: Geoff Joaquin MD Electronically Signed: Geoff Joaquin, at 1:58 EST Tel , Service support , Cervical Spine CT 06/02/18 01:25 IMPRESSION: No fracture or dislocation of the cervical spine. Individualized dose optimization techniques were used for this CT. at 0206 Reported and signed by: Geoff Joaquin MD Electronically Signed: Geoff Joaquin, at 2:05 EST Tel , Service support , Lung Scan-VQ NM 06/02/18 13:55 IMPRESSION: Low quality VQ scan, most consistent with low probability of pulmonary embolism. Electronically Signed: Kenny Greene MD at 16:31 EST , Service support , Chest CT 06/02/18 21:14 IMPRESSION: Small bilateral pleural effusions with overlying atelectasis. Sclerotic osseous lesions which are suspicious for metastasis. Electronically Signed: Juan Ruiz, at 22:14 EST Tel , Service support , Chest X-Ray 06/02/18 22:26 IMPRESSION: Mild left basilar atelectasis status post endotracheal tube placement Electronically Signed: Norbert Snyder MD at 23:18 EST , Service support , Abdomen CT 06/04/18 12:33 IMPRESSION: Bilateral hydronephrosis right greater than left with bilateral hydroureter. Diffusely thickened bladder wall. Electronically Signed: Javier Unger, at 15:28 EST , Service support , Nephrostomy Tube Change 06/05/18 07:41 IMPRESSION: 1. The percutaneous right nephrostomy catheter is in good position with the pigtail portion located in the right renal pelvis. 2. The conscious sedation protocol was followed. Electronically Signed: Javier Peterjohann, at 14:33 EST , Service support , Assessment and Plan Acute DIC most likely sepsis related. Prognosis is poor. Suggestions: 1. Continue management of sepsis. 2. To use FFP, cryoprecipitate and platelet transfusion as needed to prevent bleeding and keep PLT greater than 10. Call if there are new problems. Thank you. Medications: Prescriptions This Visit Medication Instructions Recorded Metoprolol Tartrate [Lopressor 50 mg PO BID 06/02/18 (beta lisa)] Medications Added to Medication List This Visit Category Date Time Status Vital AF 1.2 Abilio Liquid 1,000 ml Med 06/08/18 09:18 Active GT 50 mls/hr Primary Care Provider: Amber Hyatt Referring Provider: Sally Cm MD - Problem List (1) DIC syndrome Status: Acute Code Visit Office Visits / Consults: 74000 IP Consult L5
[2018-06-08 13:15] LABS: Bedside Glucose 270 mg/dL (70-110)
[2018-06-08] MEDS: Acetaminophen 650 MG/20 ML UDC GT (13:43)
--- NOTE | 2018-06-08 13:44 | CPS ---
Pt working with Physical Therapy at time of Vent check.
[2018-06-08 14:28] LABS: Immature Platelet Fraction 14.7 % (1.0-7.9); RET-HE 34.6 pg (30-35); Reticulocyte Count 4.74 % (0.5-1.5)
[2018-06-08 15:23] LABS: Iron 90 ug/dL (65-175); Iron Binding Capacity,Total 207 ug/dL (250-450); LDH 1072 U/L (87-241); PERCENT IRON SATURATION 43.5 % (15.0-55.0)
[2018-06-08 15:38] LABS: Hematocrit 25.9 % (40-54); Hemoglobin 8.3 g/dl (13.0-16.5); Mean Corpuscular Hgb 30.1 pg (27.0-32.0); Mean Corpuscular Volume 93.8 fL (80-94); RBC Distribution Width SD 55.9 fl (35.1-43.9); Red Blood Count 2.76 M/mm3 (4.6-6.2); White Blood Count 14.8 K/mm3 (4.4-11.0)
[2018-06-08 15:39] LABS: Absolute Nucleated RBC Count 4.77 10^3/uL (0-5); NRBC Flagged by Analyzer 32.1 % (0-5)
[2018-06-08 15:40] LABS: Platelet Count 23 K/mm3 (150-450)
[2018-06-08 15:54] LABS: Vancomycin, Random Level 20.9 ug/mL (0.0-15.0)
[2018-06-08] MEDS: fentaNYL drip 100 ML 2.5 MCG IV (16:00)
[2018-06-08 16:57] LABS: Scan Indicated on CBC? Y/N YES- FLAGS NOTED
--- NOTE | 2018-06-08 17:14 | NURSING ---
Teaching of pt chronic medication conditions deferred until pt condition less critical
[2018-06-08 18:20] LABS: Bedside Glucose 271 mg/dL (70-110)
[2018-06-08] MEDS: Atorvastatin Calcium 10 MG Tablet GT (21:26)
[2018-06-09] VITALS (51 sets, daily range): BP systolic 91–121; BP diastolic 34–80; PULSE 78–95; RESP 14–53; TEMP 37.2–39; O2SAT 30–100
[2018-06-09] MEDS: dilTIAZem 30 MG Tablet PO ×5 (00:01→23:40)
[2018-06-09] MEDS: Acetaminophen 650 MG/20 ML UDC GT ×2 (00:07→17:27)
[2018-06-09 00:25] LABS: Bedside Glucose 232 mg/dL (70-110)
[2018-06-09 03:56] LABS: Hematocrit 23.5 % (40-54); Hemoglobin 7.6 g/dl (13.0-16.5); Mean Corp Hgb Conc 32.3 g/gl (32-36); Mean Corpuscular Hgb 30.5 pg (27.0-32.0); Mean Corpuscular Volume 94.4 fL (80-94); Platelet Count 15 K/mm3 (150-450); RBC Distribution Width CV 17.3 % (11.6-14.6); RBC Distribution Width SD 55.8 fl (35.1-43.9); Red Blood Count 2.49 M/mm3 (4.6-6.2); White Blood Count 13.1 K/mm3 (4.4-11.0)
[2018-06-09 03:58] LABS: Differential Indicated MANUAL DIFF; POSITIVE COUNT YES; POSITIVE DIFFERENTIAL NO; POSITIVE MORPHOLOGY YES
[2018-06-09 04:06] LABS: Anion Gap 13 (5-15); BUN 101 mg/dL (7-18); BUN/Creat Ratio 43.3 RATIO (10-20); Chloride 123 mmol/L (98-107); Creatinine, Serum 2.33 mg/dL (0.70-1.30); EST Glomerular Filtration Rate 29 mL/min (>60); Est Glom Filt Rate - Afr Amer 35 mL/min (>60); Estimated Creatinine Clearance 23.58 ml/min; Glucose 291 mg/dL (74-106); Potassium 3.3 mmol/L (3.5-5.1); Sodium Level 153 mmol/L (136-145)
[2018-06-09 04:28] LABS: Vancomycin, Random Level 17.9 ug/mL (0.0-15.0)
--- NOTE | 2018-06-09 04:49 | PCM.RX.CS ---
Consult Pharmacy has been consulted to manage selected antiobiotic: Vancomycin Type of Consult: Follow-up Suspected Infection: Pneumonia Prior Doses of Antibiotics Received/Current Regimen: Medications Vancomycin HCl () 500 mg in 100 mls @ 100 mls/hr IV Q24H GABRIELLE Labs: Sodium 153 mmol/L (136-145) H 06/09/18 03:05 Potassium 3.3 mmol/L (3.5-5.1) L 06/09/18 03:05 Chloride 123 mmol/L (98-107) H 06/09/18 03:05 Carbon Dioxide 17.0 mmol/L (21.0-32.0) L 06/09/18 03:05 Anion Gap 13 (5-15) 06/09/18 03:05 BUN 101 mg/dL (7-18) H* 06/09/18 03:05 Creatinine 2.33 mg/dL (0.70-1.30) H 06/09/18 03:05 Est GFR (MDRD) Af Amer 35 mL/min (>60) L 06/09/18 03:05 Est GFR (MDRD) Non-Af 29 mL/min (>60) L 06/09/18 03:05 BUN/Creatinine Ratio 43.3 RATIO (10-20) H 06/09/18 03:05 Glucose 291 mg/dL (74-106) H 06/09/18 03:05 Vancomycin Trough 24.2 ug/mL (5.0-15.0) H 06/08/18 03:00 Random Vancomycin 17.9 ug/mL (0.0-15.0) H 06/09/18 03:05 Microbiology: Microbiology 06/06/18 12:00 Blood Culture (Wb) - Right Wrist Blood Culture - Preliminary No growth in 48 hours. 06/06/18 11:50 Blood Culture (Wb) - Anticubital Left Blood Culture - Preliminary No growth in 48 hours. 06/02/18 01:24 Blood Culture (Wb) - Anticubital Left Blood Culture - Final No growth in 5 days. 06/02/18 01:10 Blood Culture (Wb) - Right Forearm Blood Culture - Final No growth in 5 days. 06/03/18 15:20 Urine Catheter - [place] Urine Culture - Final Enterococcus faecalis 06/03/18 14:55 Blood Culture (Wb) - Left Wrist Blood Culture - Preliminary No growth in 48 hours. 06/03/18 15:05 Blood Culture (Wb) - Anticubital Right Blood Culture - Preliminary No growth in 48 hours. 06/02/18 22:30 Sputum, Expectorated/Coughed Gram Stain - Final 06/02/18 22:30 Sputum, Expectorated/Coughed Respiratory Culture - Final Mixed normal respiratory betty. No Streptococcus pneumoniae, beta-hemolytic Streptococcus or Staphylococcus aureus isolated. 06/02/18 01:55 Urine, Clean Catch Urine Culture - Final GPC Poss Enterococcus sp 06/02/18 22:30 Mucosa - Nose Respiratory Panel (PCR) - Final 06/02/18 02:15 Mucosa - Nose Influenza Types A,B Direct FA (CHELE) - Final Weight used for dosin.7 kg Estimated Creatinine Clearance: 23.6 Goal Trough: 15-20 mcg/mL Pharmacy Plan for Drug Dosing: Second random vancomycin level dropped below 20 to 17.9. Will resume dosing at calculated 500mg q24h, and will redraw trough level before third dose. Pharmacy Service will continue to monitor and adjust dosing as required. Follow-Up Labs: Trough Vancomycin Labs to be done on [date and time ordered]: 06/11/18 @4096
[2018-06-09 05:02] LABS: Anisocytosis 2+; Blast 1 % (0-0); Hypochromasia 1+; Lymphocyte 17 % (19-41); Metamyelocyte 3 % (0-1); Monocyte 1 % (0-10); Myelocyte 1 (0-0); Neutrophil-Band 3 % (0-5); Neutrophil-Segmented 73 % (47-70); Polychromasia 2+; Promyelocyte 1 (0-0); Schistocytes RARE; Total Cells Counted 100 (MANUAL DIFF)
[2018-06-09 05:03] LABS: Platelet Estimate MKD DEC (ADEQ)
[2018-06-09 05:04] LABS: Microcytosis 1+
[2018-06-09 05:06] LABS: Absolute Lymphocyte Count 2.23 X10^3/ul (0.83-4.51); NRBC Flagged by Analyzer 39.8 % (0-5)
[2018-06-09 05:51] LABS: Fibrinogen 180 mg/dl (203-444)
[2018-06-09] MEDS: Sucralfate 1 GM Tablet GT ×3 (06:04→21:48)
[2018-06-09] MEDS: CHLORHEXIDINE GLUC 2% CLOTH 1 EACH TOWELETTE TOPICAL (06:04)
[2018-06-09] MEDS: Insulin Lispro 100 UNIT/ML INSULN.PEN SC ×4 (06:10→23:40)
--- NOTE | 2018-06-09 06:26 | PCM.PN.INT ---
Subjective: The patient was seen and examined at the bedside this morning. Events from the last 24 hours have been reviewed. The patient's overall fever curve is worsening. He had a T-max overnight of 39 ?C. He remains hemodynamically stable, nonetheless. The patient was evaluated by hematology yesterday due to persistent, ongoing thrombocytopenia. They felt that the patient's presentation was consistent with DIC. Overnight, the patient did develop hematuria and had 3 separate bowel movements, all of which were dark and tarry in nature. His hemoglobin has dropped this morning to 7.6 g/dL. The patient's platelet count is low this morning at 15,000. Fibrinogen was noted to be 180 this morning. The patient's last PT was elevated at 19.5. The patient is currently set to receive transfusion of packed red blood cells along with platelets and FFP. He is now documented to be overall net +13.2 L for the admission. The patient's creatinine has risen to 2.3 this morning. He was noted to have failed his spontaneous breathing trial. Throughout the course of the morning and into the early afternoon, the patient was transfused platelets, FFP and packed red blood cells. The patient's platelet count improved to 39,000. However, his hemoglobin fell to 6.3 g/dL. The patient's percutaneous nephrostomy tube placement was initially canceled due to the aforementioned. I did personally speak with radiology and they indicated that they would still proceed with the nephrostomy tube placement, if the patient's son was willing to accept the high risk of the procedure, given the patient's DIC and thrombocytopenia. I did call and speak with the patient's son, Goyo, and advised him of my conversation with radiology. He indicated to me that he was willing to accept the high risk nature of the procedure and wanted to proceed accordingly. Objective: The patient's most recent lab work, culture data and imaging studies have all been personally reviewed. Surface echocardiogram revealed normal LV size and function with an ejection fraction of 65% and stage I diastolic dysfunction. Pulmonary artery systolic pressure was estimated to be 40 mmHg. VQ scan completed on June 02 was noted to be a low quality VQ scan, but was reported to be most consistent with low probability for PE. CT chest dated June 02 revealed small bilateral pleural effusions without focal infiltrates. CT abdomen revealed bilateral hydronephrosis along with bilateral hydroureter. Urine culture dated June 02 and June 03 both revealed Enterococcus faecalis. General: Alert, - - Remains intubated, sedated and mechanically ventilated. No ventilator dyssynchrony. HEENT: Atraumatic, PERRLA, Normocephalic Oral: Dry Mucosa, - - Endotracheal and OG tubes remain in place. Neck: Supple, No Nodes, Trachea Midline Lungs: No rhonchi, No wheeze, No rales, Diminished, Tachypneic Cardiovascular: Regular rate, Regular Rhythm, Normal S1, Normal S2, Murmur, - - Normal sinus rhythm noted on telemetry Abdomen: Soft, Non Tender, Non-Distended Extremities: No clubbing, No cyanosis, - - Anasarca present Skin: - - Superficial skin tears and dermal atrophy noted. Musculoskeletal: Muscle Wasting, - - + Temporal wasting Lymphatic: No Cervical, Supraclavicular, or Inguinal Adenopathy Neurological: - - No focal neurological deficits. Vital Signs Temp Pulse Resp BP Pulse Ox 38.8 C H 86 53 H 121/37 H 100 06/09/18 03:00 06/09/18 03:25 06/09/18 05:20 06/09/18 03:00 06/09/18 03:25 Oxygen Flow Rate (L/min) [4] 15 Oxygen Flow Rate (L/min) [3] 15 Oxygen Flow Rate (L/min) [2] 15 Oxygen Flow Rate (L/min) [1 ( 15 Initial Baseline)] Oxygen Flow Rate (L/min) 2 Oxygen Delivery Method [4] Ambu-Bag Oxygen Delivery Method [3] Ambu-Bag Oxygen Delivery Method [2] Ambu-Bag Oxygen Delivery Method [1 ( Ambu-Bag Initial Baseline)] Oxygen Delivery Method Mechanical Ventilator Weight: 177 lb 4.026 oz Body Mass Index (BMI) 27.1 Finger Stick Blood Glucose 202 Intake and Output for Last 24 Hours 06/07/18 06/08/18 06/09/18 22:59 23:59 23:59 Intake Total 1704.0 / 1704.0 Output Total 470 / 470 Balance 1234.0 / 1234.0 Labs (Last 48 Hours) 06/06/18 06/07/18 06/07/18 07:15 03:50 05:42 WBC RBC Hgb Hct MCV MCH MCHC RDW RDW Differential Plt Count MPV Neut % (Auto) Absolute Neuts (auto) Absolute Lymphs (auto) Total Counted Neutrophils % (Manual) Band Neutrophils % Lymphocytes % (Manual) Monocytes % (Manual) Metamyelocytes % Myelocytes % Promyelocytes % Blast Cells % Nucleated RBC % Differential Comment Diff Path Review Platelet Estimate Immature Plt Fraction Plt Morphology Comment Polychromasia Hypochromasia Anisocytosis 1+ Microcytosis Ovalocytes RARE Schistocytes 1+ Retic Count Absolute Retic Immature Retic Fraction Retic Hgb Equivalent Haptoglobin PT INR APTT Fibrinogen D-Dimer Quant (PE/DVT) Sodium Potassium Chloride Carbon Dioxide Anion Gap BUN Creatinine Estim Creat Clear Calc Est GFR (MDRD) Af Amer Est GFR (MDRD) Non-Af BUN/Creatinine Ratio Glucose Calcium Iron TIBC Iron Saturation Lactate Dehydrogenase Vitamin B12 Folate Vancomycin Trough Random Vancomycin Heparin-induced Plt Ab POC Glucose 202 H Crossmatch See Detail 06/07/18 06/07/18 06/07/18 06:50 06:50 11:12 WBC RBC Hgb Hct MCV MCH MCHC RDW RDW Differential Plt Count MPV Neut % (Auto) Absolute Neuts (auto) Absolute Lymphs (auto) Total Counted Neutrophils % (Manual) Band Neutrophils % Lymphocytes % (Manual) Monocytes % (Manual) Metamyelocytes % Myelocytes % Promyelocytes % Blast Cells % Nucleated RBC % Differential Comment Diff Path Review Platelet Estimate Immature Plt Fraction Plt Morphology Comment Polychromasia Hypochromasia Anisocytosis Microcytosis Ovalocytes Schistocytes Retic Count Absolute Retic Immature Retic Fraction Retic Hgb Equivalent Haptoglobin PT 19.6 H INR 1.7 APTT 30.8 Fibrinogen 156 L D-Dimer Quant (PE/DVT) > 20.00 H* Sodium Potassium Chloride Carbon Dioxide Anion Gap BUN Creatinine Estim Creat Clear Calc Est GFR (MDRD) Af Amer Est GFR (MDRD) Non-Af BUN/Creatinine Ratio Glucose Calcium Iron TIBC Iron Saturation Lactate Dehydrogenase Vitamin B12 Folate Vancomycin Trough Random Vancomycin Heparin-induced Plt Ab Pending POC Glucose 219 H Crossmatch 06/07/18 06/07/18 06/07/18 14:40 16:40 23:54 WBC 17.9 H RBC 2.77 L Hgb 8.2 L Hct 25.7 L MCV 92.8 MCH 29.6 MCHC 31.9 L RDW 16.5 H RDW Differential 54.3 H Plt Count 43 L* MPV 10.7 Neut % (Auto) Not Reportable Absolute Neuts (auto) 13.6 H Absolute Lymphs (auto) 2.86 Total Counted 100 Neutrophils % (Manual) 75 H Band Neutrophils % 1 Lymphocytes % (Manual) 16 L Monocytes % (Manual) 4 Metamyelocytes % 1 Myelocytes % 3 H Promyelocytes % Blast Cells % Nucleated RBC % 23.8 H Differential Comment SCANNED Diff Path Review May foll Platelet Estimate MKD DEC Immature Plt Fraction Plt Morphology Comment Polychromasia 2+ Hypochromasia 2+ Anisocytosis 1+ Microcytosis RARE Ovalocytes RARE Schistocytes 1+ Retic Count Absolute Retic 4.28 Immature Retic Fraction Retic Hgb Equivalent Haptoglobin PT INR APTT Fibrinogen D-Dimer Quant (PE/DVT) Sodium Potassium Chloride Carbon Dioxide Anion Gap BUN Creatinine Estim Creat Clear Calc Est GFR (MDRD) Af Amer Est GFR (MDRD) Non-Af BUN/Creatinine Ratio Glucose Calcium Iron TIBC Iron Saturation Lactate Dehydrogenase Vitamin B12 Folate Vancomycin Trough Random Vancomycin Heparin-induced Plt Ab POC Glucose 202 H 195 H Crossmatch 06/08/18 06/08/18 06/08/18 03:00 04:45 04:45 WBC 15.5 H RBC 2.83 L Hgb 8.4 L Hct 26.6 L MCV 94.0 MCH 29.7 MCHC 31.6 L RDW 16.7 H RDW Differential 54.9 H Plt Count 28 L* MPV 10.8 Neut % (Auto) Not Reportable Absolute Neuts (auto) 13.6 H Absolute Lymphs (auto) 1.25 Total Counted 100 Neutrophils % (Manual) 82 H Band Neutrophils % 6 H Lymphocytes % (Manual) 8 L Monocytes % (Manual) 1 Metamyelocytes % 3 H Myelocytes % Promyelocytes % Blast Cells % Nucleated RBC % 28.9 H Differential Comment Diff Path Review May foll Platelet Estimate MKD DEC Immature Plt Fraction Plt Morphology Comment LARGE Polychromasia 1+ Hypochromasia 1+ Anisocytosis 1+ Microcytosis 1+ Ovalocytes Schistocytes Retic Count Absolute Retic 4.47 Immature Retic Fraction Retic Hgb Equivalent Haptoglobin PT INR APTT Fibrinogen D-Dimer Quant (PE/DVT) Sodium 155 H Potassium 3.3 L Chloride 125 H Carbon Dioxide 18.0 L Anion Gap 12 BUN 101 H* Creatinine 2.15 H Estim Creat Clear Calc 25.55 Est GFR (MDRD) Af Amer 38 L Est GFR (MDRD) Non-Af 32 L BUN/Creatinine Ratio 47.0 H Glucose 232 H Calcium 8.5 Iron TIBC Iron Saturation Lactate Dehydrogenase Vitamin B12 Folate Vancomycin Trough 24.2 H Random Vancomycin Heparin-induced Plt Ab POC Glucose Crossmatch 06/08/18 06/08/18 06/08/18 04:45 04:45 04:45 WBC RBC Hgb Hct MCV MCH MCHC RDW RDW Differential Plt Count MPV Neut % (Auto) Absolute Neuts (auto) Absolute Lymphs (auto) Total Counted Neutrophils % (Manual) Band Neutrophils % Lymphocytes % (Manual) Monocytes % (Manual) Metamyelocytes % Myelocytes % Promyelocytes % Blast Cells % Nucleated RBC % Differential Comment Diff Path Review Platelet Estimate Immature Plt Fraction 14.7 H Plt Morphology Comment Polychromasia Hypochromasia Anisocytosis Microcytosis Ovalocytes Schistocytes Retic Count 4.74 H Absolute Retic Immature Retic Fraction 41.50 H Retic Hgb Equivalent 34.6 Haptoglobin PT 19.5 H INR 1.7 APTT 32.6 Fibrinogen D-Dimer Quant (PE/DVT) Sodium Potassium Chloride Carbon Dioxide Anion Gap BUN Creatinine Estim Creat Clear Calc Est GFR (MDRD) Af Amer Est GFR (MDRD) Non-Af BUN/Creatinine Ratio Glucose Calcium Iron 90 TIBC 207 L Iron Saturation 43.5 Lactate Dehydrogenase 1072 H Vitamin B12 Folate 27.10 Vancomycin Trough Random Vancomycin Heparin-induced Plt Ab POC Glucose Crossmatch 06/08/18 06/08/18 06/08/18 05:15 13:07 15:05 WBC RBC Hgb Hct MCV MCH MCHC RDW RDW Differential Plt Count MPV Neut % (Auto) Absolute Neuts (auto) Absolute Lymphs (auto) Total Counted Neutrophils % (Manual) Band Neutrophils % Lymphocytes % (Manual) Monocytes % (Manual) Metamyelocytes % Myelocytes % Promyelocytes % Blast Cells % Nucleated RBC % Differential Comment Diff Path Review Platelet Estimate Immature Plt Fraction Plt Morphology Comment Polychromasia Hypochromasia Anisocytosis Microcytosis Ovalocytes Schistocytes Retic Count Absolute Retic Immature Retic Fraction Retic Hgb Equivalent Haptoglobin PT INR APTT Fibrinogen D-Dimer Quant (PE/DVT) Sodium Potassium Chloride Carbon Dioxide Anion Gap BUN Creatinine Estim Creat Clear Calc Est GFR (MDRD) Af Amer Est GFR (MDRD) Non-Af BUN/Creatinine Ratio Glucose Calcium Iron TIBC Iron Saturation Lactate Dehydrogenase Vitamin B12 Folate Vancomycin Trough Random Vancomycin 20.9 H Heparin-induced Plt Ab POC Glucose 216 H 270 H Crossmatch 06/08/18 06/08/18 06/08/18 15:05 15:05 18:15 WBC 14.8 H RBC 2.76 L Hgb 8.3 L Hct 25.9 L MCV 93.8 MCH 30.1 MCHC 32.0 RDW 17.0 H RDW Differential 55.9 H Plt Count 23 L* MPV TNP Neut % (Auto) Absolute Neuts (auto) Absolute Lymphs (auto) Total Counted Neutrophils % (Manual) Band Neutrophils % Lymphocytes % (Manual) Monocytes % (Manual) Metamyelocytes % Myelocytes % Promyelocytes % Blast Cells % Nucleated RBC % 32.1 H Differential Comment Diff Path Review May foll Platelet Estimate Immature Plt Fraction Plt Morphology Comment Polychromasia Hypochromasia Anisocytosis Microcytosis Ovalocytes Schistocytes Retic Count Absolute Retic 4.77 Immature Retic Fraction Retic Hgb Equivalent Haptoglobin PT INR APTT Fibrinogen D-Dimer Quant (PE/DVT) Sodium Potassium Chloride Carbon Dioxide Anion Gap BUN Creatinine Estim Creat Clear Calc Est GFR (MDRD) Af Amer Est GFR (MDRD) Non-Af BUN/Creatinine Ratio Glucose Calcium Iron TIBC Iron Saturation Lactate Dehydrogenase Vitamin B12 Pending Folate Vancomycin Trough Random Vancomycin Heparin-induced Plt Ab POC Glucose 271 H Crossmatch 06/08/18 06/09/18 06/09/18 23:59 03:05 03:05 WBC RBC Hgb Hct MCV MCH MCHC RDW RDW Differential Plt Count MPV Neut % (Auto) Absolute Neuts (auto) Absolute Lymphs (auto) Total Counted Neutrophils % (Manual) Band Neutrophils % Lymphocytes % (Manual) Monocytes % (Manual) Metamyelocytes % Myelocytes % Promyelocytes % Blast Cells % Nucleated RBC % Differential Comment Diff Path Review Platelet Estimate Immature Plt Fraction Plt Morphology Comment Polychromasia Hypochromasia Anisocytosis Microcytosis Ovalocytes Schistocytes Retic Count Absolute Retic Immature Retic Fraction Retic Hgb Equivalent Haptoglobin Pending PT INR APTT Fibrinogen D-Dimer Quant (PE/DVT) Sodium Potassium Chloride Carbon Dioxide Anion Gap BUN Creatinine Estim Creat Clear Calc Est GFR (MDRD) Af Amer Est GFR (MDRD) Non-Af BUN/Creatinine Ratio Glucose Calcium Iron TIBC Iron Saturation Lactate Dehydrogenase Vitamin B12 Folate Vancomycin Trough Random Vancomycin 17.9 H Heparin-induced Plt Ab POC Glucose 232 H Crossmatch 06/09/18 06/09/18 06/09/18 03:05 03:05 05:30 WBC 13.1 H RBC 2.49 L Hgb 7.6 L Hct 23.5 L MCV 94.4 H MCH 30.5 MCHC 32.3 RDW 17.3 H RDW Differential 55.8 H Plt Count 15 L* MPV Neut % (Auto) Not Reportable Absolute Neuts (auto) 10.0 H Absolute Lymphs (auto) 2.23 Total Counted 100 Neutrophils % (Manual) 73 H Band Neutrophils % 3 Lymphocytes % (Manual) 17 L Monocytes % (Manual) 1 Metamyelocytes % 3 H Myelocytes % 1 H Promyelocytes % 1 H Blast Cells % 1 H* Nucleated RBC % 39.8 H Differential Comment Diff Path Review May foll Platelet Estimate MKD DEC Immature Plt Fraction Plt Morphology Comment Polychromasia 2+ Hypochromasia 1+ Anisocytosis 2+ Microcytosis 1+ Ovalocytes Schistocytes RARE Retic Count Absolute Retic 5.20 H Immature Retic Fraction Retic Hgb Equivalent Haptoglobin PT INR APTT Fibrinogen 180 L D-Dimer Quant (PE/DVT) Sodium 153 H Potassium 3.3 L Chloride 123 H Carbon Dioxide 17.0 L Anion Gap 13 BUN 101 H* Creatinine 2.33 H Estim Creat Clear Calc 23.58 Est GFR (MDRD) Af Amer 35 L Est GFR (MDRD) Non-Af 29 L BUN/Creatinine Ratio 43.3 H Glucose 291 H Calcium 8.0 L Iron TIBC Iron Saturation Lactate Dehydrogenase Vitamin B12 Folate Vancomycin Trough Random Vancomycin Heparin-induced Plt Ab POC Glucose Crossmatch Microbiology 06/06/18 12:00 Blood Culture (Wb) - Right Wrist Blood Culture - Preliminary No growth in 48 hours. 06/06/18 11:50 Blood Culture (Wb) - Anticubital Left Blood Culture - Preliminary No growth in 48 hours. 06/02/18 01:24 Blood Culture (Wb) - Anticubital Left Blood Culture - Final No growth in 5 days. 06/02/18 01:10 Blood Culture (Wb) - Right Forearm Blood Culture - Final No growth in 5 days. Clinical Impression(s) from Imaging Studies Brain CT 06/02/18 01:25 IMPRESSION: No acute findings. Individualized dose optimization techniques were used for this CT. at 0159 Reported and signed by: Geoff Joaquin MD Electronically Signed: Geoff Joaquin, at 1:58 EST Tel , Service support , Cervical Spine CT 06/02/18 01:25 IMPRESSION: No fracture or dislocation of the cervical spine. Individualized dose optimization techniques were used for this CT. at 0206 Reported and signed by: Geoff Joaquin MD Electronically Signed: Geoff Joaquin, at 2:05 EST Tel , Service support , Chest X-Ray 06/02/18 01:35 IMPRESSION: Low lung volumes with resultant hypoventilatory changes. No definite pneumonia or edema. Interval sternotomy probably for heart valve replacement. at 0154 Reported and signed by: Geoff Joaquin MD Electronically Signed: Geoff Joaquin, at 1:53 EST Tel , Service support , Lung Scan-VQ NM 06/02/18 13:55 IMPRESSION: Low quality VQ scan, most consistent with low probability of pulmonary embolism. Electronically Signed: Kenny Greene MD at 16:31 EST , Service support , Chest X-Ray 06/02/18 14:28 IMPRESSION: Moderate right pleural effusion with overlying atelectasis. Electronically Signed: Juan Ruiz, at 15:40 EST Tel , Service support , Chest CT 06/02/18 21:14 IMPRESSION: Small bilateral pleural effusions with overlying atelectasis. Sclerotic osseous lesions which are suspicious for metastasis. Electronically Signed: Juan Sara, at 22:14 EST Tel , Service support , Chest X-Ray 06/02/18 22:26 IMPRESSION: Mild left basilar atelectasis status post endotracheal tube placement Electronically Signed: Norbert Snyder MD at 23:18 EST , Service support , Abdomen CT 06/04/18 12:33 IMPRESSION: Bilateral hydronephrosis right greater than left with bilateral hydroureter. Diffusely thickened bladder wall. Electronically Signed: Javier Unger, at 15:28 EST , Service support , Nephrostomy Tube Change 06/05/18 07:41 IMPRESSION: 1. The percutaneous right nephrostomy catheter is in good position with the pigtail portion located in the right renal pelvis. 2. The conscious sedation protocol was followed. Electronically Signed: Javier Unger, at 14:33 EST , Service support , Medical Necessity - Tobacco Use Smoking Status: Former smoker Assessment/Plan All Active Problems (Last Reviewed 06/05/18 @ 07:40 by Dangelo Alvarado MD) Atrial fibrillation and flutter (Acute) Fever (Acute) Anemia (Acute) Thrombocytopenia (Acute) Bilateral hydronephrosis (Acute) DIC syndrome (Acute) RECOMMENDATIONS: 1. Transfuse packed red blood cells, platelets and FFP as ordered. Recheck CBC and coags later today. 2. Given rising fever, will need to discuss CALI with cardiology and additional nephrostomy tube placement with radiology. 3. Additional potassium repletion as ordered. 4. Tube feeds are currently on hold. Continue free water flushes as ordered. 5. Continue rate/rhythm control therapy per cardiology recommendations 6. Continue twice daily PPI therapy. 7. Continue antibiotics per ID recommendations. IMPRESSIONS: 1. Acute hypoxemic respiratory failure The exact etiology for the patient's clinical decompensation is unclear. However, the patient was noted to be tachycardic at the time when he was initially beginning to decompensate. It is unclear whether this was atrial fibrillation or a sinus tachycardia. Given that the patient has paroxysmal atrial fibrillation and underlying valvular heart disease, it is possible that his decompensation may have been heart rate related. In addition, increased metabolic demands from the patient's sepsis and fevers also likely contributed. He is chronically anticoagulated with Eliquis on an outpatient basis. The patient's CT chest only revealed evidence of small bilateral pleural effusions without focal infiltrates. His FiO2 was able to be quickly weaned. I would hold off on attempts to extubate the patient until his transesophageal echocardiogram has been completed on Saturday. At this time, the patient is severely volume overloaded. He is going to require volume optimization, likely with IV diuretics, which may be limited by his current renal function. 2. Severe sepsis with evidence of bilateral hydronephrosis/hydroureter The patient appears to be septic from a urinary source of infection. CT abdomen did reveal evidence of bilateral hydronephrosis, for which the patient underwent a percutaneous nephrostomy tube placement on June 05. Antibiotics will be continued per infectious diseases recommendations. There are tentative plans to perform a CALI today to ensure that the patient does not have underlying endocarditis. In addition, will discuss with radiology regarding the possibility of scheduling the patient for left-sided percutaneous nephrostomy tube placement. 3. Paroxysmal atrial fibrillation with RVR/history of aortic valve replacement Cardiology following to assist with management. The patient is currently on both amiodarone and Cardizem. 4. Anemia secondary to upper GI hemorrhage/thrombocytopenia secondary to DIC The patient does have known normocytic anemia, which appears to have worsened over the course of this hospital stay. The patient did require eventual transfusion of packed red blood cells. Upper endoscopy performed at the bedside did reveal evidence of GI ulcers. However, there was no active bleeding. This will require the permanent discontinuation of the patient's systemic anticoagulation. He will be continued on twice daily PPI therapy and monitored for any ongoing blood loss. The patient has also developed worsening thrombocytopenia, which following workup, appears to be related to DIC, likely secondary to the patient's sepsis syndrome. Given his worsening anemia and thrombocytopenia overnight along with hematuria and dark/tarry stools, we will plan to transfuse packed red blood cells, platelets and FFP today. Our goal is to maintain a fibrinogen level greater than 100. 5. Hypokalemia Electrolyte repletion as ordered. Check magnesium and phosphorus levels as well. 6. Metastatic prostate cancer/anemia/chronic kidney disease/hypertension/hyperlipidemia/depression/generalized deconditioning and debility Complicates care, management, recovery and prognosis. Likely okay to continue home medications. Physical therapy to once again work with patient once medically stabilized. Recommend formal goals of care discussion with the patient and his family. TIME: 45 minutes of critical care time, independent of procedures, was spent addressing the patient's acute hypoxemic respiratory failure, severe sepsis, paroxysmal atrial fibrillation with a rapid ventricular rate, metastatic prostate cancer, anemia, upper gastrointestinal bleed, DIC, review of all data and collaboration with the care team. ([id number]) Code Visit [id number]: [id number] Critical care first hour
--- NOTE | 2018-06-09 06:32 | PN_ITS ---
Subjective: The patient was seen and examined at the bedside this morning. Events from the last 24 hours have been reviewed. The patient's overall fever curve is worsening. He had a T-max overnight of 39 ?C. He remains hemodynamically stable, nonetheless. The patient was evaluated by hematology yesterday due to persistent, ongoing thrombocytopenia. They felt that the patient's presentation was consistent with DIC. Overnight, the patient did develop hematuria and had 3 separate bowel movements, all of which were dark and tarry in nature. His hemoglobin has dropped this morning to 7.6 g/dL. The patient's platelet count is low this morning at 15,000. Fibrinogen was noted to be 180 this morning. The patient's last PT was elevated at 19.5. The patient is currently set to receive transfusion of packed red blood cells along with platelets and FFP. He is now documented to be overall net +13.2 L for the admission. The patient's creatinine has risen to 2.3 this morning. He was noted to have failed his spontaneous breathing trial. Throughout the course of the morning and into the early afternoon, the patient was transfused platelets, FFP and packed red blood cells. The patient's platelet count improved to 39,000. However, his hemoglobin fell to 6.3 g/dL. The patient's percutaneous nephrostomy tube placement was initially canceled due to the aforementioned. I did personally speak with radiology and they indicated that they would still proceed with the nephrostomy tube placement, if the patient's son was willing to accept the high risk of the procedure, given the patient's DIC and thrombocytopenia. I did call and speak with the patient's son, Goyo, and advised him of my conversation with radiology. He indicated to me that he was willing to accept the high risk nature of the procedure and wanted to proceed accordingly. Objective: The patient's most recent lab work, culture data and imaging studies have all been personally reviewed. Surface echocardiogram revealed normal LV size and function with an ejection fraction of 65% and stage I diastolic dysfunction. Pulmonary artery systolic pressure was estimated to be 40 mmHg. VQ scan completed on June 02 was noted to be a low quality VQ scan, but was reported to be most consistent with low probability for PE. CT chest dated June 02 revealed small bilateral pleural effusions without focal infiltrates. CT abdomen revealed bilateral hydronephrosis along with bilateral hydroureter. Urine culture dated June 02 and June 03 both revealed Enterococcus faecalis. General: Alert, - - Remains intubated, sedated and mechanically ventilated. No ventilator dyssynchrony. HEENT: Atraumatic, PERRLA, Normocephalic Oral: Dry Mucosa, - - Endotracheal and OG tubes remain in place. Neck: Supple, No Nodes, Trachea Midline Lungs: No rhonchi, No wheeze, No rales, Diminished, Tachypneic Cardiovascular: Regular rate, Regular Rhythm, Normal S1, Normal S2, Murmur, - - Normal sinus rhythm noted on telemetry Abdomen: Soft, Non Tender, Non-Distended Extremities: No clubbing, No cyanosis, - - Anasarca present Skin: - - Superficial skin tears and dermal atrophy noted. Musculoskeletal: Muscle Wasting, - - + Temporal wasting Lymphatic: No Cervical, Supraclavicular, or Inguinal Adenopathy Neurological: - - No focal neurological deficits. Vital Signs Temp Pulse Resp BP Pulse Ox 38.8 C H 86 53 H 121/37 H 100 06/09/18 03:00 06/09/18 03:25 06/09/18 05:20 06/09/18 03:00 06/09/18 03:25 Oxygen Flow Rate (L/min) [4] 15 Oxygen Flow Rate (L/min) [3] 15 Oxygen Flow Rate (L/min) [2] 15 Oxygen Flow Rate (L/min) [1 ( 15 Initial Baseline)] Oxygen Flow Rate (L/min) 2 Oxygen Delivery Method [4] Ambu-Bag Oxygen Delivery Method [3] Ambu-Bag Oxygen Delivery Method [2] Ambu-Bag Oxygen Delivery Method [1 ( Ambu-Bag Initial Baseline)] Oxygen Delivery Method Mechanical Ventilator Weight: 177 lb 4.026 oz Body Mass Index (BMI) 27.1 Finger Stick Blood Glucose 202 Intake and Output for Last 24 Hours 06/07/18 06/08/18 06/09/18 22:59 23:59 23:59 Intake Total 1704.0 / 1704.0 Output Total 470 / 470 Balance 1234.0 / 1234.0 Labs (Last 48 Hours) 06/06/18 06/07/18 06/07/18 07:15 03:50 05:42 WBC RBC Hgb Hct MCV MCH MCHC RDW RDW Differential Plt Count MPV Neut % (Auto) Absolute Neuts (auto) Absolute Lymphs (auto) Total Counted Neutrophils % (Manual) Band Neutrophils % Lymphocytes % (Manual) Monocytes % (Manual) Metamyelocytes % Myelocytes % Promyelocytes % Blast Cells % Nucleated RBC % Differential Comment Diff Path Review Platelet Estimate Immature Plt Fraction Plt Morphology Comment Polychromasia Hypochromasia Anisocytosis 1+ Microcytosis Ovalocytes RARE Schistocytes 1+ Retic Count Absolute Retic Immature Retic Fraction Retic Hgb Equivalent Haptoglobin PT INR APTT Fibrinogen D-Dimer Quant (PE/DVT) Sodium Potassium Chloride Carbon Dioxide Anion Gap BUN Creatinine Estim Creat Clear Calc Est GFR (MDRD) Af Amer Est GFR (MDRD) Non-Af BUN/Creatinine Ratio Glucose Calcium Iron TIBC Iron Saturation Lactate Dehydrogenase Vitamin B12 Folate Vancomycin Trough Random Vancomycin Heparin-induced Plt Ab POC Glucose 202 H Crossmatch See Detail 06/07/18 06/07/18 06/07/18 06:50 06:50 11:12 WBC RBC Hgb Hct MCV MCH MCHC RDW RDW Differential Plt Count MPV Neut % (Auto) Absolute Neuts (auto) Absolute Lymphs (auto) Total Counted Neutrophils % (Manual) Band Neutrophils % Lymphocytes % (Manual) Monocytes % (Manual) Metamyelocytes % Myelocytes % Promyelocytes % Blast Cells % Nucleated RBC % Differential Comment Diff Path Review Platelet Estimate Immature Plt Fraction Plt Morphology Comment Polychromasia Hypochromasia Anisocytosis Microcytosis Ovalocytes Schistocytes Retic Count Absolute Retic Immature Retic Fraction Retic Hgb Equivalent Haptoglobin PT 19.6 H INR 1.7 APTT 30.8 Fibrinogen 156 L D-Dimer Quant (PE/DVT) > 20.00 H* Sodium Potassium Chloride Carbon Dioxide Anion Gap BUN Creatinine Estim Creat Clear Calc Est GFR (MDRD) Af Amer Est GFR (MDRD) Non-Af BUN/Creatinine Ratio Glucose Calcium Iron TIBC Iron Saturation Lactate Dehydrogenase Vitamin B12 Folate Vancomycin Trough Random Vancomycin Heparin-induced Plt Ab Pending POC Glucose 219 H Crossmatch 06/07/18 06/07/18 06/07/18 14:40 16:40 23:54 WBC 17.9 H RBC 2.77 L Hgb 8.2 L Hct 25.7 L MCV 92.8 MCH 29.6 MCHC 31.9 L RDW 16.5 H RDW Differential 54.3 H Plt Count 43 L* MPV 10.7 Neut % (Auto) Not Reportable Absolute Neuts (auto) 13.6 H Absolute Lymphs (auto) 2.86 Total Counted 100 Neutrophils % (Manual) 75 H Band Neutrophils % 1 Lymphocytes % (Manual) 16 L Monocytes % (Manual) 4 Metamyelocytes % 1 Myelocytes % 3 H Promyelocytes % Blast Cells % Nucleated RBC % 23.8 H Differential Comment SCANNED Diff Path Review May foll Platelet Estimate MKD DEC Immature Plt Fraction Plt Morphology Comment Polychromasia 2+ Hypochromasia 2+ Anisocytosis 1+ Microcytosis RARE Ovalocytes RARE Schistocytes 1+ Retic Count Absolute Retic 4.28 Immature Retic Fraction Retic Hgb Equivalent Haptoglobin PT INR APTT Fibrinogen D-Dimer Quant (PE/DVT) Sodium Potassium Chloride Carbon Dioxide Anion Gap BUN Creatinine Estim Creat Clear Calc Est GFR (MDRD) Af Amer Est GFR (MDRD) Non-Af BUN/Creatinine Ratio Glucose Calcium Iron TIBC Iron Saturation Lactate Dehydrogenase Vitamin B12 Folate Vancomycin Trough Random Vancomycin Heparin-induced Plt Ab POC Glucose 202 H 195 H Crossmatch 06/08/18 06/08/18 06/08/18 03:00 04:45 04:45 WBC 15.5 H RBC 2.83 L Hgb 8.4 L Hct 26.6 L MCV 94.0 MCH 29.7 MCHC 31.6 L RDW 16.7 H RDW Differential 54.9 H Plt Count 28 L* MPV 10.8 Neut % (Auto) Not Reportable Absolute Neuts (auto) 13.6 H Absolute Lymphs (auto) 1.25 Total Counted 100 Neutrophils % (Manual) 82 H Band Neutrophils % 6 H Lymphocytes % (Manual) 8 L Monocytes % (Manual) 1 Metamyelocytes % 3 H Myelocytes % Promyelocytes % Blast Cells % Nucleated RBC % 28.9 H Differential Comment Diff Path Review May foll Platelet Estimate MKD DEC Immature Plt Fraction Plt Morphology Comment LARGE Polychromasia 1+ Hypochromasia 1+ Anisocytosis 1+ Microcytosis 1+ Ovalocytes Schistocytes Retic Count Absolute Retic 4.47 Immature Retic Fraction Retic Hgb Equivalent Haptoglobin PT INR APTT Fibrinogen D-Dimer Quant (PE/DVT) Sodium 155 H Potassium 3.3 L Chloride 125 H Carbon Dioxide 18.0 L Anion Gap 12 BUN 101 H* Creatinine 2.15 H Estim Creat Clear Calc 25.55 Est GFR (MDRD) Af Amer 38 L Est GFR (MDRD) Non-Af 32 L BUN/Creatinine Ratio 47.0 H Glucose 232 H Calcium 8.5 Iron TIBC Iron Saturation Lactate Dehydrogenase Vitamin B12 Folate Vancomycin Trough 24.2 H Random Vancomycin Heparin-induced Plt Ab POC Glucose Crossmatch 06/08/18 06/08/18 06/08/18 04:45 04:45 04:45 WBC RBC Hgb Hct MCV MCH MCHC RDW RDW Differential Plt Count MPV Neut % (Auto) Absolute Neuts (auto) Absolute Lymphs (auto) Total Counted Neutrophils % (Manual) Band Neutrophils % Lymphocytes % (Manual) Monocytes % (Manual) Metamyelocytes % Myelocytes % Promyelocytes % Blast Cells % Nucleated RBC % Differential Comment Diff Path Review Platelet Estimate Immature Plt Fraction 14.7 H Plt Morphology Comment Polychromasia Hypochromasia Anisocytosis Microcytosis Ovalocytes Schistocytes Retic Count 4.74 H Absolute Retic Immature Retic Fraction 41.50 H Retic Hgb Equivalent 34.6 Haptoglobin PT 19.5 H INR 1.7 APTT 32.6 Fibrinogen D-Dimer Quant (PE/DVT) Sodium Potassium Chloride Carbon Dioxide Anion Gap BUN Creatinine Estim Creat Clear Calc Est GFR (MDRD) Af Amer Est GFR (MDRD) Non-Af BUN/Creatinine Ratio Glucose Calcium Iron 90 TIBC 207 L Iron Saturation 43.5 Lactate Dehydrogenase 1072 H Vitamin B12 Folate 27.10 Vancomycin Trough Random Vancomycin Heparin-induced Plt Ab POC Glucose Crossmatch 06/08/18 06/08/18 06/08/18 05:15 13:07 15:05 WBC RBC Hgb Hct MCV MCH MCHC RDW RDW Differential Plt Count MPV Neut % (Auto) Absolute Neuts (auto) Absolute Lymphs (auto) Total Counted Neutrophils % (Manual) Band Neutrophils % Lymphocytes % (Manual) Monocytes % (Manual) Metamyelocytes % Myelocytes % Promyelocytes % Blast Cells % Nucleated RBC % Differential Comment Diff Path Review Platelet Estimate Immature Plt Fraction Plt Morphology Comment Polychromasia Hypochromasia Anisocytosis Microcytosis Ovalocytes Schistocytes Retic Count Absolute Retic Immature Retic Fraction Retic Hgb Equivalent Haptoglobin PT INR APTT Fibrinogen D-Dimer Quant (PE/DVT) Sodium Potassium Chloride Carbon Dioxide Anion Gap BUN Creatinine Estim Creat Clear Calc Est GFR (MDRD) Af Amer Est GFR (MDRD) Non-Af BUN/Creatinine Ratio Glucose Calcium Iron TIBC Iron Saturation Lactate Dehydrogenase Vitamin B12 Folate Vancomycin Trough Random Vancomycin 20.9 H Heparin-induced Plt Ab POC Glucose 216 H 270 H Crossmatch 06/08/18 06/08/18 06/08/18 15:05 15:05 18:15 WBC 14.8 H RBC 2.76 L Hgb 8.3 L Hct 25.9 L MCV 93.8 MCH 30.1 MCHC 32.0 RDW 17.0 H RDW Differential 55.9 H Plt Count 23 L* MPV TNP Neut % (Auto) Absolute Neuts (auto) Absolute Lymphs (auto) Total Counted Neutrophils % (Manual) Band Neutrophils % Lymphocytes % (Manual) Monocytes % (Manual) Metamyelocytes % Myelocytes % Promyelocytes % Blast Cells % Nucleated RBC % 32.1 H Differential Comment Diff Path Review May foll Platelet Estimate Immature Plt Fraction Plt Morphology Comment Polychromasia Hypochromasia Anisocytosis Microcytosis Ovalocytes Schistocytes Retic Count Absolute Retic 4.77 Immature Retic Fraction Retic Hgb Equivalent Haptoglobin PT INR APTT Fibrinogen D-Dimer Quant (PE/DVT) Sodium Potassium Chloride Carbon Dioxide Anion Gap BUN Creatinine Estim Creat Clear Calc Est GFR (MDRD) Af Amer Est GFR (MDRD) Non-Af BUN/Creatinine Ratio Glucose Calcium Iron TIBC Iron Saturation Lactate Dehydrogenase Vitamin B12 Pending Folate Vancomycin Trough Random Vancomycin Heparin-induced Plt Ab POC Glucose 271 H Crossmatch 06/08/18 06/09/18 06/09/18 23:59 03:05 03:05 WBC RBC Hgb Hct MCV MCH MCHC RDW RDW Differential Plt Count MPV Neut % (Auto) Absolute Neuts (auto) Absolute Lymphs (auto) Total Counted Neutrophils % (Manual) Band Neutrophils % Lymphocytes % (Manual) Monocytes % (Manual) Metamyelocytes % Myelocytes % Promyelocytes % Blast Cells % Nucleated RBC % Differential Comment Diff Path Review Platelet Estimate Immature Plt Fraction Plt Morphology Comment Polychromasia Hypochromasia Anisocytosis Microcytosis Ovalocytes Schistocytes Retic Count Absolute Retic Immature Retic Fraction Retic Hgb Equivalent Haptoglobin Pending PT INR APTT Fibrinogen D-Dimer Quant (PE/DVT) Sodium Potassium Chloride Carbon Dioxide Anion Gap BUN Creatinine Estim Creat Clear Calc Est GFR (MDRD) Af Amer Est GFR (MDRD) Non-Af BUN/Creatinine Ratio Glucose Calcium Iron TIBC Iron Saturation Lactate Dehydrogenase Vitamin B12 Folate Vancomycin Trough Random Vancomycin 17.9 H Heparin-induced Plt Ab POC Glucose 232 H Crossmatch 06/09/18 06/09/18 06/09/18 03:05 03:05 05:30 WBC 13.1 H RBC 2.49 L Hgb 7.6 L Hct 23.5 L MCV 94.4 H MCH 30.5 MCHC 32.3 RDW 17.3 H RDW Differential 55.8 H Plt Count 15 L* MPV Neut % (Auto) Not Reportable Absolute Neuts (auto) 10.0 H Absolute Lymphs (auto) 2.23 Total Counted 100 Neutrophils % (Manual) 73 H Band Neutrophils % 3 Lymphocytes % (Manual) 17 L Monocytes % (Manual) 1 Metamyelocytes % 3 H Myelocytes % 1 H Promyelocytes % 1 H Blast Cells % 1 H* Nucleated RBC % 39.8 H Differential Comment Diff Path Review May foll Platelet Estimate MKD DEC Immature Plt Fraction Plt Morphology Comment Polychromasia 2+ Hypochromasia 1+ Anisocytosis 2+ Microcytosis 1+ Ovalocytes Schistocytes RARE Retic Count Absolute Retic 5.20 H Immature Retic Fraction Retic Hgb Equivalent Haptoglobin PT INR APTT Fibrinogen 180 L D-Dimer Quant (PE/DVT) Sodium 153 H Potassium 3.3 L Chloride 123 H Carbon Dioxide 17.0 L Anion Gap 13 BUN 101 H* Creatinine 2.33 H Estim Creat Clear Calc 23.58 Est GFR (MDRD) Af Amer 35 L Est GFR (MDRD) Non-Af 29 L BUN/Creatinine Ratio 43.3 H Glucose 291 H Calcium 8.0 L Iron TIBC Iron Saturation Lactate Dehydrogenase Vitamin B12 Folate Vancomycin Trough Random Vancomycin Heparin-induced Plt Ab POC Glucose Crossmatch Microbiology 06/06/18 12:00 Blood Culture (Wb) - Right Wrist Blood Culture - Preliminary No growth in 48 hours. 06/06/18 11:50 Blood Culture (Wb) - Anticubital Left Blood Culture - Preliminary No growth in 48 hours. 06/02/18 01:24 Blood Culture (Wb) - Anticubital Left Blood Culture - Final No growth in 5 days. 06/02/18 01:10 Blood Culture (Wb) - Right Forearm Blood Culture - Final No growth in 5 days. Clinical Impression(s) from Imaging Studies Brain CT 06/02/18 01:25 IMPRESSION: No acute findings. Individualized dose optimization techniques were used for this CT. at 0159 Reported and signed by: Geoff Joaquin MD Electronically Signed: Geoff Joaquin, at 1:58 EST Tel , Service support , Cervical Spine CT 06/02/18 01:25 IMPRESSION: No fracture or dislocation of the cervical spine. Individualized dose optimization techniques were used for this CT. at 0206 Reported and signed by: Geoff Joaquin MD Electronically Signed: Geoff Joaquin, at 2:05 EST Tel , Service support , Chest X-Ray 06/02/18 01:35 IMPRESSION: Low lung volumes with resultant hypoventilatory changes. No definite pneumonia or edema. Interval sternotomy probably for heart valve replacement. at 0154 Reported and signed by: Geoff Joaquin MD Electronically Signed: Geoff Joaquin, at 1:53 EST Tel , Service support , Lung Scan-VQ NM 06/02/18 13:55 IMPRESSION: Low quality VQ scan, most consistent with low probability of pulmonary embolism. Electronically Signed: Kenny Greene MD at 16:31 EST , Service support , Chest X-Ray 06/02/18 14:28 IMPRESSION: Moderate right pleural effusion with overlying atelectasis. Electronically Signed: Juan Ruiz, at 15:40 EST Tel , Service support , Chest CT 06/02/18 21:14 IMPRESSION: Small bilateral pleural effusions with overlying atelectasis. Sclerotic osseous lesions which are suspicious for metastasis. Electronically Signed: Juan Sara, at 22:14 EST Tel , Service support , Chest X-Ray 06/02/18 22:26 IMPRESSION: Mild left basilar atelectasis status post endotracheal tube placement Electronically Signed: Norbert Snyder MD at 23:18 EST , Service support , Abdomen CT 06/04/18 12:33 IMPRESSION: Bilateral hydronephrosis right greater than left with bilateral hydroureter. Diffusely thickened bladder wall. Electronically Signed: Javier Unger, at 15:28 EST , Service support , Nephrostomy Tube Change 06/05/18 07:41 IMPRESSION: 1. The percutaneous right nephrostomy catheter is in good position with the pigtail portion located in the right renal pelvis. 2. The conscious sedation protocol was followed. Electronically Signed: Javier Unger, at 14:33 EST , Service support , Medical Necessity - Tobacco Use Smoking Status: Former smoker Assessment/Plan All Active Problems (Last Reviewed 06/05/18 @ 07:40 by Dangelo Alvarado MD) Atrial fibrillation and flutter (Acute) Fever (Acute) Anemia (Acute) Thrombocytopenia (Acute) Bilateral hydronephrosis (Acute) DIC syndrome (Acute) RECOMMENDATIONS: 1. Transfuse packed red blood cells, platelets and FFP as ordered. Recheck CBC and coags later today. 2. Given rising fever, will need to discuss CALI with cardiology and additional nephrostomy tube placement with radiology. 3. Additional potassium repletion as ordered. 4. Tube feeds are currently on hold. Continue free water flushes as ordered. 5. Continue rate/rhythm control therapy per cardiology recommendations 6. Continue twice daily PPI therapy. 7. Continue antibiotics per ID recommendations. IMPRESSIONS: 1. Acute hypoxemic respiratory failure The exact etiology for the patient's clinical decompensation is unclear. However, the patient was noted to be tachycardic at the time when he was initially beginning to decompensate. It is unclear whether this was atrial fibrillation or a sinus tachycardia. Given that the patient has paroxysmal atrial fibrillation and underlying valvular heart disease, it is possible that his decompensation may have been heart rate related. In addition, increased metabolic demands from the patient's sepsis and fevers also likely contributed. He is chronically anticoagulated with Eliquis on an outpatient basis. The patient's CT chest only revealed evidence of small bilateral pleural effusions without focal infiltrates. His FiO2 was able to be quickly weaned. I would hold off on attempts to extubate the patient until his transesophageal echocardiogram has been completed on Saturday. At this time, the patient is severely volume overloaded. He is going to require volume optimization, likely with IV diuretics, which may be limited by his current renal function. 2. Severe sepsis with evidence of bilateral hydronephrosis/hydroureter The patient appears to be septic from a urinary source of infection. CT abdomen did reveal evidence of bilateral hydronephrosis, for which the patient underwent a percutaneous nephrostomy tube placement on June 05. Antibiotics will be continued per infectious diseases recommendations. There are tentative plans to perform a CALI today to ensure that the patient does not have underlying endocarditis. In addition, will discuss with radiology regarding the possibility of scheduling the patient for left-sided percutaneous nephrostomy tube placement. 3. Paroxysmal atrial fibrillation with RVR/history of aortic valve replacement Cardiology following to assist with management. The patient is currently on both amiodarone and Cardizem. 4. Anemia secondary to upper GI hemorrhage/thrombocytopenia secondary to DIC The patient does have known normocytic anemia, which appears to have worsened over the course of this hospital stay. The patient did require eventual transfusion of packed red blood cells. Upper endoscopy performed at the bedside did reveal evidence of GI ulcers. However, there was no active bleeding. This will require the permanent discontinuation of the patient's systemic anticoagulation. He will be continued on twice daily PPI therapy and monitored for any ongoing blood loss. The patient has also developed worsening thrombocytopenia, which following workup, appears to be related to DIC, likely secondary to the patient's sepsis syndrome. Given his worsening anemia and thrombocytopenia overnight along with hematuria and dark/tarry stools, we will plan to transfuse packed red blood cells, platelets and FFP today. Our goal is to maintain a fibrinogen level greater than 100. 5. Hypokalemia Electrolyte repletion as ordered. Check magnesium and phosphorus levels as well. 6. Metastatic prostate cancer/anemia/chronic kidney disease/hypertension/hyperlipidemia/depression/generalized deconditioning and debility Complicates care, management, recovery and prognosis. Likely okay to continue home medications. Physical therapy to once again work with patient once medically stabilized. Recommend formal goals of care discussion with the patient and his family. TIME: 45 minutes of critical care time, independent of procedures, was spent addressing the patient's acute hypoxemic respiratory failure, severe sepsis, paroxysmal atrial fibrillation with a rapid ventricular rate, metastatic prostate cancer, anemia, upper gastrointestinal bleed, DIC, review of all data and collaboration with the care team. ([id number]) Code Visit [id number]: [id number] Critical care first hour
[2018-06-09 06:36] LABS: Bedside Glucose 165 mg/dL (70-110)
--- NOTE | 2018-06-09 07:25 | NURSING ---
difficulty placing new PIV d/t the one in LAC started bleeding and had to be removed. Dayshift RN aware that patient only has PICC and needs PIV established.
[2018-06-09] MEDS: Potassium Chloride 20mEq/100mL 20 MEQ/100 ML IV.SOLN. 100 MEQ IV ×2 (07:39→09:14)
[2018-06-09] MEDS: 0.9% NaCl IVPB Med Flush (250 mL) 15 ML IV ×2 (07:39→22:25)
--- NOTE | 2018-06-09 08:25 | PN.SURG_ITS ---
Patient Problems: Active and Suspected Problems (Last Reviewed 06/05/18 @ 07:40 by Dangelo Alvarado MD) Atrial fibrillation and flutter (Acute) Fever (Acute) Anemia (Acute) Thrombocytopenia (Acute) Bilateral hydronephrosis (Acute) DIC syndrome (Acute) Subjective: Patient began having black tarry stools overnight. He is also having bleeding around his [place] and drain. - Physical Exam Lungs: - - Intubated Cardiovascular: Regular rate Abdomen: Soft, Non-Distended Vital Signs Temp Pulse Resp BP Pulse Ox 101.8 F H 86 29 H 106/41 L 99 06/09/18 07:00 06/09/18 07:25 06/09/18 07:00 06/09/18 07:00 06/09/18 07:00 Oxygen Flow Rate (L/min) [4] 15 Oxygen Flow Rate (L/min) [3] 15 Oxygen Flow Rate (L/min) [2] 15 Oxygen Flow Rate (L/min) [1 ( 15 Initial Baseline)] Oxygen Flow Rate (L/min) 2 Oxygen Delivery Method [4] Ambu-Bag Oxygen Delivery Method [3] Ambu-Bag Oxygen Delivery Method [2] Ambu-Bag Oxygen Delivery Method [1 ( Ambu-Bag Initial Baseline)] Oxygen Delivery Method Mechanical Ventilator Weight: 177 lb 4.026 oz Body Mass Index (BMI) 27.1 Finger Stick Blood Glucose 202 Intake and Output for Last 24 Hours 06/07/18 06/08/18 06/09/18 22:59 23:59 23:59 Intake Total 1704.0 / 1704.0 Output Total 470 / 470 Balance 1234.0 / 1234.0 Microbiology Past 72 Hours 06/03/18 14:55 Blood Culture - Final Blood Culture (Wb) - Left Wrist No growth in 5 days. 06/03/18 15:05 Blood Culture - Final Blood Culture (Wb) - Anticubital Right No growth in 5 days. 06/06/18 12:00 Blood Culture - Preliminary Blood Culture (Wb) - Right Wrist No growth in 48 hours. 06/06/18 11:50 Blood Culture - Preliminary Blood Culture (Wb) - Anticubital Left No growth in 48 hours. 06/02/18 01:24 Blood Culture - Final Blood Culture (Wb) - Anticubital Left No growth in 5 days. 06/02/18 01:10 Blood Culture - Final Blood Culture (Wb) - Right Forearm No growth in 5 days. 06/03/18 15:20 Urine Culture - Final Urine Catheter - [place] Enterococcus faecalis Laboratory Tests Past 24 Hrs 06/06/18 06/08/18 06/08/18 07:15 04:45 04:45 WBC RBC Hgb Hct MCV MCH MCHC RDW RDW Differential Plt Count MPV Neut % (Auto) Absolute Neuts (auto) Absolute Lymphs (auto) Total Counted Neutrophils % (Manual) Band Neutrophils % Lymphocytes % (Manual) Monocytes % (Manual) Metamyelocytes % Myelocytes % Promyelocytes % Blast Cells % Nucleated RBC % Diff Path Review Platelet Estimate Immature Plt Fraction 14.7 H Polychromasia Hypochromasia Anisocytosis Microcytosis Schistocytes Retic Count 4.74 H Absolute Retic Immature Retic Fraction 41.50 H Retic Hgb Equivalent 34.6 Haptoglobin Fibrinogen Sodium Potassium Chloride Carbon Dioxide Anion Gap BUN Creatinine Estim Creat Clear Calc Est GFR (MDRD) Af Amer Est GFR (MDRD) Non-Af BUN/Creatinine Ratio Glucose Calcium Phosphorus Magnesium Iron 90 TIBC 207 L Iron Saturation 43.5 Lactate Dehydrogenase 1072 H Vitamin B12 Folate 27.10 Random Vancomycin Blood Type Antibody Screen Crossmatch See Detail 06/08/18 06/08/18 06/08/18 15:05 15:05 15:05 WBC 14.8 H RBC 2.76 L Hgb 8.3 L Hct 25.9 L MCV 93.8 MCH 30.1 MCHC 32.0 RDW 17.0 H RDW Differential 55.9 H Plt Count 23 L* MPV TNP Neut % (Auto) Absolute Neuts (auto) Absolute Lymphs (auto) Total Counted Neutrophils % (Manual) Band Neutrophils % Lymphocytes % (Manual) Monocytes % (Manual) Metamyelocytes % Myelocytes % Promyelocytes % Blast Cells % Nucleated RBC % 32.1 H Diff Path Review May foll Platelet Estimate Immature Plt Fraction Polychromasia Hypochromasia Anisocytosis Microcytosis Schistocytes Retic Count Absolute Retic 4.77 Immature Retic Fraction Retic Hgb Equivalent Haptoglobin Fibrinogen Sodium Potassium Chloride Carbon Dioxide Anion Gap BUN Creatinine Estim Creat Clear Calc Est GFR (MDRD) Af Amer Est GFR (MDRD) Non-Af BUN/Creatinine Ratio Glucose Calcium Phosphorus Magnesium Iron TIBC Iron Saturation Lactate Dehydrogenase Vitamin B12 Pending Folate Random Vancomycin 20.9 H Blood Type Antibody Screen Crossmatch 06/09/18 06/09/18 06/09/18 03:05 03:05 03:05 WBC 13.1 H RBC 2.49 L Hgb 7.6 L Hct 23.5 L MCV 94.4 H MCH 30.5 MCHC 32.3 RDW 17.3 H RDW Differential 55.8 H Plt Count 15 L* MPV Neut % (Auto) Not Reportable Absolute Neuts (auto) 10.0 H Absolute Lymphs (auto) 2.23 Total Counted 100 Neutrophils % (Manual) 73 H Band Neutrophils % 3 Lymphocytes % (Manual) 17 L Monocytes % (Manual) 1 Metamyelocytes % 3 H Myelocytes % 1 H Promyelocytes % 1 H Blast Cells % 1 H* Nucleated RBC % 39.8 H Diff Path Review May foll Platelet Estimate MKD DEC Immature Plt Fraction Polychromasia 2+ Hypochromasia 1+ Anisocytosis 2+ Microcytosis 1+ Schistocytes RARE Retic Count Absolute Retic 5.20 H Immature Retic Fraction Retic Hgb Equivalent Haptoglobin Pending Fibrinogen Sodium Potassium Chloride Carbon Dioxide Anion Gap BUN Creatinine Estim Creat Clear Calc Est GFR (MDRD) Af Amer Est GFR (MDRD) Non-Af BUN/Creatinine Ratio Glucose Calcium Phosphorus Magnesium Iron TIBC Iron Saturation Lactate Dehydrogenase Vitamin B12 Folate Random Vancomycin 17.9 H Blood Type Antibody Screen Crossmatch 06/09/18 06/09/18 06/09/18 03:05 03:05 05:30 WBC RBC Hgb Hct MCV MCH MCHC RDW RDW Differential Plt Count MPV Neut % (Auto) Absolute Neuts (auto) Absolute Lymphs (auto) Total Counted Neutrophils % (Manual) Band Neutrophils % Lymphocytes % (Manual) Monocytes % (Manual) Metamyelocytes % Myelocytes % Promyelocytes % Blast Cells % Nucleated RBC % Diff Path Review Platelet Estimate Immature Plt Fraction Polychromasia Hypochromasia Anisocytosis Microcytosis Schistocytes Retic Count Absolute Retic Immature Retic Fraction Retic Hgb Equivalent Haptoglobin Fibrinogen 180 L Sodium 153 H Potassium 3.3 L Chloride 123 H Carbon Dioxide 17.0 L Anion Gap 13 BUN 101 H* Creatinine 2.33 H Estim Creat Clear Calc 23.58 Est GFR (MDRD) Af Amer 35 L Est GFR (MDRD) Non-Af 29 L BUN/Creatinine Ratio 43.3 H Glucose 291 H Calcium 8.0 L Phosphorus Pending Magnesium Pending Iron TIBC Iron Saturation Lactate Dehydrogenase Vitamin B12 Folate Random Vancomycin Blood Type Antibody Screen Crossmatch 06/09/18 05:30 WBC RBC Hgb Hct MCV MCH MCHC RDW RDW Differential Plt Count MPV Neut % (Auto) Absolute Neuts (auto) Absolute Lymphs (auto) Total Counted Neutrophils % (Manual) Band Neutrophils % Lymphocytes % (Manual) Monocytes % (Manual) Metamyelocytes % Myelocytes % Promyelocytes % Blast Cells % Nucleated RBC % Diff Path Review Platelet Estimate Immature Plt Fraction Polychromasia Hypochromasia Anisocytosis Microcytosis Schistocytes Retic Count Absolute Retic Immature Retic Fraction Retic Hgb Equivalent Haptoglobin Fibrinogen Sodium Potassium Chloride Carbon Dioxide Anion Gap BUN Creatinine Estim Creat Clear Calc Est GFR (MDRD) Af Amer Est GFR (MDRD) Non-Af BUN/Creatinine Ratio Glucose Calcium Phosphorus Magnesium Iron TIBC Iron Saturation Lactate Dehydrogenase Vitamin B12 Folate Random Vancomycin Blood Type AB POSITIVE Antibody Screen NEGATIVE Crossmatch See Detail POC Glucose 06/09/18 06/08/18 06/08/18 06:09 23:59 18:15 POC Glucose 165 H 232 H 271 H 06/08/18 13:07 POC Glucose 270 H Medical Necessity - Tobacco Use Smoking Status: Former smoker Assessment/Plan All Active Problems (Last Reviewed 06/05/18 @ 07:40 by Dangelo Alvarado MD) Atrial fibrillation and flutter (Acute) Fever (Acute) Anemia (Acute) Thrombocytopenia (Acute) Bilateral hydronephrosis (Acute) DIC syndrome (Acute) 77-year-old male with DIC and gastric and duodenal ulcer and GI bleed 1. Patient is having profuse bleeding and anemia. He is being transfused and receiving platelets. The patient is likely septic from the hydronephrosis on his other kidney. I would recommend percutaneous drain placement. If that is not going to be attempted due to his platelet level I would certainly not taken for endoscopy. If the drain is placed and this reverses a sepsis and DIC then I would deal with the GI bleed. Patient will be discussed with the patient's son and hospice will be discussed as well. I await the son's decision. Heber Mccurdy MD Pager: [facility] [address] [place] [address], [address] [place] [address] Office:
[2018-06-09 08:32] LABS: Magnesium 2.7 mg/dL (1.6-2.6); Phosphorus 3.8 mg/dL (2.5-4.9)
--- NOTE | 2018-06-09 08:39 | CT_ITS ---
PROCEDURE: DIGITAL COMPUTED TOMOGRAPHIC GUIDANCE DURING PERCUTANEOUS NEPHROSTOMY PROCEDURE. DATE OF EXAMINATION: INDICATION: Male, 77 years old. Left ureteral obstruction. PHYSICIAN: Javier Unger M.D. CONSENT: The patient's history and physical findings were reviewed. Prior to the procedure the percutaneous nephrostomy procedure was described to the patient's son who then signed a consent. SEDATION: The patient was only a small continuous fentanyl drip at 25 mcg per hour. The conscious sedation protocol was followed. Conscious sedation was started at 1445 and terminated at 1508. The patient was independently monitored by the department nurse. Individualized dose optimization techniques were utilized. TECHNIQUE: A 8.5 Khmer percutaneous left nephrostomy catheter was inserted under CT guidance. A loop of the pigtail catheter was formed within the left renal pelvis and locked in this position. There is dilatation of the upper collecting system and dilatation of the left ureter to the bladder. A guidewire would not pass into the urinary bladder. The catheter was secured to the skin surface and covered with a sterile dressing. The catheter was attached to a drainage bag attached to the patient's leg. CT/Nephrotube Placement CT IMPRESSION: 1. The percutaneous left nephrostomy catheter is in good position with the pigtail portion located in the left renal pelvis. Electronically Signed: Javier Unger, at 8:16 EDT , Service support ,
--- NOTE | 2018-06-09 08:41 | PCM.PROGNOTE ---
Patient Problems: Active and Suspected Problems (Last Reviewed 06/05/18 @ 07:40 by Dangelo Alvarado MD) Atrial fibrillation and flutter (Acute) Fever (Acute) Anemia (Acute) Thrombocytopenia (Acute) Bilateral hydronephrosis (Acute) DIC syndrome (Acute) Subjective: The patient is a 77-year-old male with a past medical history of prostate cancer metastatic to bone, history of aortic valve replacement with bioprosthetic valve, chronic kidney disease stage III, hypertension and prostatic hypertrophy with urinary tract infection who initially presented to the emergency department on 06/02/2018 with complaints of altered mental status. He was diagnosed with sepsis secondary to acute cystitis severe dehydration, mild rhabdomyolysis and indeterminate troponin. He was started on ceftriaxone and blood and urine cultures were ordered. He was admitted to a monitored bed on PCU and started on antibiotics. He had SOB and was on oxygen and BIPAP intermittently. D-Dimer was >20. Chest x-ray at admission showed no infiltrates, pleural effusions or pulmonary vascular congestion. A VQ scan had low probability for PE. Late in the evening on June 02 the patient was noted to be hypotensive and in atrial fibrillation with a rapid ventricular response. He had felipe respiratory distress in conjunction with the A. fib. A stat CT chest without contrast showed small bilateral pleural effusions and no focal infiltrates. With his permission he was intubated and the antibiotic was changed from Rocephin to Zosyn and Vancomycin. Radiology was consulted for A. fib with RVR and the patient was started on an amiodarone infusion following a bolus of amiodarone. Consultation was ordered with infectious disease. All events of the past 24 hours of been reviewed. T-max is 102.2 ?F at midnight. Current temp is 101.4. Current blood pressure is 107/45 with a heart rate of 86. Fluid balance is +13,213 since admission. Fluid balance on 06/08/2018 was +2640. He has a right nephrostomy tube. All lab was personally reviewed. White blood cell count today is 13.1 and this has gradually been improving since 06/06/2018 when it was 20,000. Hemoglobin is 7.6 and the platelet count is 15,000. - Physical Exam General: - - He is awake and sedated with Fentanyl. Able to squeeze my hand on command but, not consistently answering yes and no questions. 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 Lungs: Clear to auscultation - anterior and lateral, No wheeze, No rales, Tachypneic Cardiovascular: Regular rate, Regular Rhythm, Normal S1, Normal S2, Murmur - at the seocond RICS with radiation to the LVOT and the LLSB, No Gallop, - - Telemetry shows NSR, no significnat ectopy Abdomen: Bowel Sounds Present, Soft, Non-Distended, - - No guarding with palpation Extremities: No cyanosis, Diminished Peripheral Pulses - the pedal pulses are not palpable and the feet are cold to the touch but the popliteal pulses are 2-3 BL, Edema - of the legs Skin: - - he has an abrasion on the right knee and multiple scattered area of ecchymosis Musculoskeletal: Arthritic Changes Neurological: Cranial nerves II-XII grossly intact Vital Signs Temp Pulse Resp BP Pulse Ox 101.8 F H 86 29 H 106/41 L 99 06/09/18 07:00 06/09/18 07:25 06/09/18 07:00 06/09/18 07:00 06/09/18 07:00 Oxygen Flow Rate (L/min) [4] 15 Oxygen Flow Rate (L/min) [3] 15 Oxygen Flow Rate (L/min) [2] 15 Oxygen Flow Rate (L/min) [1 ( 15 Initial Baseline)] Oxygen Flow Rate (L/min) 2 Oxygen Delivery Method [4] Ambu-Bag Oxygen Delivery Method [3] Ambu-Bag Oxygen Delivery Method [2] Ambu-Bag Oxygen Delivery Method [1 ( Ambu-Bag Initial Baseline)] Oxygen Delivery Method Mechanical Ventilator Weight: 177 lb 4.026 oz Body Mass Index (BMI) 27.1 Finger Stick Blood Glucose 202 Intake and Output for Last 24 Hours 06/07/18 06/08/18 06/09/18 22:59 23:59 23:59 Intake Total 1704.0 / 1704.0 Output Total 470 / 470 Balance 1234.0 / 1234.0 Microbiology Past 72 Hours 06/06/18 11:00 Urine Culture - Final Urine, Nephrostomy Culture exhibits no growth. 06/03/18 14:55 Blood Culture - Final Blood Culture (Wb) - Left Wrist No growth in 5 days. 06/03/18 15:05 Blood Culture - Final Blood Culture (Wb) - Anticubital Right No growth in 5 days. 06/06/18 12:00 Blood Culture - Preliminary Blood Culture (Wb) - Right Wrist No growth in 48 hours. 06/06/18 11:50 Blood Culture - Preliminary Blood Culture (Wb) - Anticubital Left No growth in 48 hours. 06/02/18 01:24 Blood Culture - Final Blood Culture (Wb) - Anticubital Left No growth in 5 days. 06/02/18 01:10 Blood Culture - Final Blood Culture (Wb) - Right Forearm No growth in 5 days. 06/03/18 15:20 Urine Culture - Final Urine Catheter - [place] Enterococcus faecalis Laboratory Tests Past 24 Hrs 06/06/18 06/08/18 06/08/18 07:15 04:45 04:45 WBC RBC Hgb Hct MCV MCH MCHC RDW RDW Differential Plt Count MPV Neut % (Auto) Absolute Neuts (auto) Absolute Lymphs (auto) Total Counted Neutrophils % (Manual) Band Neutrophils % Lymphocytes % (Manual) Monocytes % (Manual) Metamyelocytes % Myelocytes % Promyelocytes % Blast Cells % Nucleated RBC % Diff Path Review Platelet Estimate Immature Plt Fraction 14.7 H Polychromasia Hypochromasia Anisocytosis Microcytosis Schistocytes Retic Count 4.74 H Absolute Retic Immature Retic Fraction 41.50 H Retic Hgb Equivalent 34.6 Haptoglobin Fibrinogen Sodium Potassium Chloride Carbon Dioxide Anion Gap BUN Creatinine Estim Creat Clear Calc Est GFR (MDRD) Af Amer Est GFR (MDRD) Non-Af BUN/Creatinine Ratio Glucose Calcium Phosphorus Magnesium Iron 90 TIBC 207 L Iron Saturation 43.5 Lactate Dehydrogenase 1072 H Vitamin B12 Folate 27.10 Random Vancomycin Blood Type Antibody Screen Crossmatch See Detail 06/08/18 06/08/18 06/08/18 15:05 15:05 15:05 WBC 14.8 H RBC 2.76 L Hgb 8.3 L Hct 25.9 L MCV 93.8 MCH 30.1 MCHC 32.0 RDW 17.0 H RDW Differential 55.9 H Plt Count 23 L* MPV TNP Neut % (Auto) Absolute Neuts (auto) Absolute Lymphs (auto) Total Counted Neutrophils % (Manual) Band Neutrophils % Lymphocytes % (Manual) Monocytes % (Manual) Metamyelocytes % Myelocytes % Promyelocytes % Blast Cells % Nucleated RBC % 32.1 H Diff Path Review May foll Platelet Estimate Immature Plt Fraction Polychromasia Hypochromasia Anisocytosis Microcytosis Schistocytes Retic Count Absolute Retic 4.77 Immature Retic Fraction Retic Hgb Equivalent Haptoglobin Fibrinogen Sodium Potassium Chloride Carbon Dioxide Anion Gap BUN Creatinine Estim Creat Clear Calc Est GFR (MDRD) Af Amer Est GFR (MDRD) Non-Af BUN/Creatinine Ratio Glucose Calcium Phosphorus Magnesium Iron TIBC Iron Saturation Lactate Dehydrogenase Vitamin B12 Pending Folate Random Vancomycin 20.9 H Blood Type Antibody Screen Crossmatch 06/09/18 06/09/18 06/09/18 03:05 03:05 03:05 WBC 13.1 H RBC 2.49 L Hgb 7.6 L Hct 23.5 L MCV 94.4 H MCH 30.5 MCHC 32.3 RDW 17.3 H RDW Differential 55.8 H Plt Count 15 L* MPV Neut % (Auto) Not Reportable Absolute Neuts (auto) 10.0 H Absolute Lymphs (auto) 2.23 Total Counted 100 Neutrophils % (Manual) 73 H Band Neutrophils % 3 Lymphocytes % (Manual) 17 L Monocytes % (Manual) 1 Metamyelocytes % 3 H Myelocytes % 1 H Promyelocytes % 1 H Blast Cells % 1 H* Nucleated RBC % 39.8 H Diff Path Review May foll Platelet Estimate MKD DEC Immature Plt Fraction Polychromasia 2+ Hypochromasia 1+ Anisocytosis 2+ Microcytosis 1+ Schistocytes RARE Retic Count Absolute Retic 5.20 H Immature Retic Fraction Retic Hgb Equivalent Haptoglobin Pending Fibrinogen Sodium Potassium Chloride Carbon Dioxide Anion Gap BUN Creatinine Estim Creat Clear Calc Est GFR (MDRD) Af Amer Est GFR (MDRD) Non-Af BUN/Creatinine Ratio Glucose Calcium Phosphorus Magnesium Iron TIBC Iron Saturation Lactate Dehydrogenase Vitamin B12 Folate Random Vancomycin 17.9 H Blood Type Antibody Screen Crossmatch 06/09/18 06/09/18 06/09/18 03:05 03:05 05:30 WBC RBC Hgb Hct MCV MCH MCHC RDW RDW Differential Plt Count MPV Neut % (Auto) Absolute Neuts (auto) Absolute Lymphs (auto) Total Counted Neutrophils % (Manual) Band Neutrophils % Lymphocytes % (Manual) Monocytes % (Manual) Metamyelocytes % Myelocytes % Promyelocytes % Blast Cells % Nucleated RBC % Diff Path Review Platelet Estimate Immature Plt Fraction Polychromasia Hypochromasia Anisocytosis Microcytosis Schistocytes Retic Count Absolute Retic Immature Retic Fraction Retic Hgb Equivalent Haptoglobin Fibrinogen 180 L Sodium 153 H Potassium 3.3 L Chloride 123 H Carbon Dioxide 17.0 L Anion Gap 13 BUN 101 H* Creatinine 2.33 H Estim Creat Clear Calc 23.58 Est GFR (MDRD) Af Amer 35 L Est GFR (MDRD) Non-Af 29 L BUN/Creatinine Ratio 43.3 H Glucose 291 H Calcium 8.0 L Phosphorus 3.8 Magnesium 2.7 H Iron TIBC Iron Saturation Lactate Dehydrogenase Vitamin B12 Folate Random Vancomycin Blood Type Antibody Screen Crossmatch 06/09/18 05:30 WBC RBC Hgb Hct MCV MCH MCHC RDW RDW Differential Plt Count MPV Neut % (Auto) Absolute Neuts (auto) Absolute Lymphs (auto) Total Counted Neutrophils % (Manual) Band Neutrophils % Lymphocytes % (Manual) Monocytes % (Manual) Metamyelocytes % Myelocytes % Promyelocytes % Blast Cells % Nucleated RBC % Diff Path Review Platelet Estimate Immature Plt Fraction Polychromasia Hypochromasia Anisocytosis Microcytosis Schistocytes Retic Count Absolute Retic Immature Retic Fraction Retic Hgb Equivalent Haptoglobin Fibrinogen Sodium Potassium Chloride Carbon Dioxide Anion Gap BUN Creatinine Estim Creat Clear Calc Est GFR (MDRD) Af Amer Est GFR (MDRD) Non-Af BUN/Creatinine Ratio Glucose Calcium Phosphorus Magnesium Iron TIBC Iron Saturation Lactate Dehydrogenase Vitamin B12 Folate Random Vancomycin Blood Type AB POSITIVE Antibody Screen NEGATIVE Crossmatch See Detail POC Glucose 06/09/18 06/08/18 06/08/18 06:09 23:59 18:15 POC Glucose 165 H 232 H 271 H 06/08/18 13:07 POC Glucose 270 H Medical Necessity - Tobacco Use Smoking Status: Former smoker Assessment/Plan All Active Problems (Last Reviewed 06/05/18 @ 07:40 by Dangelo Alvarado MD) Atrial fibrillation and flutter (Acute) Fever (Acute) Anemia (Acute) Thrombocytopenia (Acute) Bilateral hydronephrosis (Acute) DIC syndrome (Acute) Day #8 vancomycin and Zosyn Day #8 ventilator Impressions 1. Acute hypoxemic respiratory failure requiring intubation 2. Severe sepsis secondary to Enterococcus faecalis 3. DIC 4. Upper GI bleed secondary to peptic ulcer disease 5. Atrial fibrillation/atrial flutter with rapid ventricular response 6. History of bioprosthetic aortic valve 7. Acute urinary tract infection with bilateral hydronephrosis 8. Acute renal failure on chronic kidney disease stage III-secondary to bladder outlet obstruction with bilateral hydronephrosis and hydroureter as well as sepsis and dehydration 9. Metabolic acidosis secondary to acute renal failure 10. Hypertension 11. Prostate cancer with metastases to the bone-never treated 12. Bladder outlet obstruction 13. Severe anemia secondary to upper GI bleed, thrombocytopenia and DIC 14. Hypokalemia 15. Hyperlipidemia 16. Depression 17. Moderate malnutrition 18. Hypernatremia 19. Abnormal LFTs-possible liver metastases 20. Elevated troponin likely secondary to demand ischemia from atrial fibrillation with rapid ventricular response 21. Stage I diastolic dysfunction Met with his son Emeterio and answered his questions. We talked about advance directives and he tells me his dad told him to wanted to live as long as possible. He wants to continue with full code status but, he is aware that things are not looking good and that despite appropriate antibiotics he continues to have fevers and now also has DIC. Can not do a left nephrostomy tube unless the PLT's increase and the PLT's have to come from [place]. Also can not do the CALI. He will get PLT's, PRBC's and FFP today Left nephrostomy tube after PLT's Supplement phosphorus and potassium Recheck lab in the a.m. Continue the amiodarone drip at 0.5 mg/min while the tube feed is on hold CALI when the platelets and hemoglobin are stable Continue Protonix 40 mg IV every 12 hours Continue Zosyn Prognosis is poor Code Visit Inpatient E&M: 16249 [facility] Hosp L3
[2018-06-09] MEDS: Chlorhexidine 15 ML PO ×2 (09:28→21:48)
[2018-06-09 10:01] LABS: Vitamin B12 1561 pg/mL (211-911)
[2018-06-09] MEDS: Vancomycin IV 500 MG/100 ML BAG 100 MG IV (11:19)
[2018-06-09 13:10] LABS: Bedside Glucose 148 mg/dL (70-110)
[2018-06-09 13:14] LABS: Hemoglobin 6.3 g/dl (13.0-16.5); Mean Corp Hgb Conc 31.5 g/gl (32-36); Mean Corpuscular Volume 95.2 fL (80-94); Mean Platelet Vol. 9.7 fl (6.2-12.0); RBC Distribution Width CV 18.1 % (11.6-14.6); RBC Distribution Width SD 56.2 fl (35.1-43.9); White Blood Count 12.9 K/mm3 (4.4-11.0)
[2018-06-09 13:15] LABS: Absolute Nucleated RBC Count 4.39 10^3/uL (0-5); Differential Indicated MANUAL DIFF; NRBC Flagged by Analyzer 34.1 % (0-5); POSITIVE COUNT YES; POSITIVE DIFFERENTIAL NO; POSITIVE MORPHOLOGY YES; Platelet Count 39 K/mm3 (150-450)
[2018-06-09 13:29] LABS: Lymphocyte 22 % (19-41); Metamyelocyte 3 % (0-1); Monocyte 2 % (0-10); Neutrophil-Segmented 72 % (47-70); Promyelocyte 1 (0-0); Total Cells Counted 100 (MANUAL DIFF)
[2018-06-09 13:30] LABS: Hypochromasia 3+; Microcytosis 1+; Platelet Estimate MKD DEC (ADEQ); Polychromasia 1+; Schistocytes RARE
[2018-06-09 13:31] LABS: Absolute Lymphocyte Count 2.83 X10^3/ul (0.83-4.51); Absolute Neutrophil Count 9.3 X10^3/uL (2.0-7.7)
--- NOTE | 2018-06-09 15:16 | NURSING ---
LT NEPHROSTOMY TUBE INSERTION COMPLETE. PT BROUGHT TO ICU BY SHLOMO BOONE AND TANVI ESTRADA. BAGGED BY MICHELE, EDUARD. PT TOLERATED PROCEDURE WELL WITH FENTANYL GTT AT 25MCG/HR. NEPHROSTOMY TUBE REINFORCED WITH STAYFIX AND MICROPORE TAPE.
--- NOTE | 2018-06-09 16:20 | PN.ID_ITS ---
Patient Problems: Active and Suspected Problems (Last Reviewed 06/05/18 @ 07:40 by Dangelo Alvarado MD) Atrial fibrillation and flutter (Acute) Fever (Acute) Anemia (Acute) Thrombocytopenia (Acute) Bilateral hydronephrosis (Acute) DIC syndrome (Acute) Subjective: Remains in icu, now with DIC. Tarry stools. - Physical Exam General: - - ill appearing Lungs: Diminished Cardiovascular: Regular rate, Regular Rhythm Abdomen: Soft, Non Tender, Non-Distended, - - R neph tube Skin: No rashes Vital Signs Temp Pulse Resp BP Pulse Ox 101.6 F H 94 29 H 115/56 L 97 06/09/18 15:39 06/09/18 16:08 06/09/18 16:08 06/09/18 15:39 06/09/18 16:08 Oxygen Flow Rate (L/min) [5] 15 Oxygen Flow Rate (L/min) [4] 15 Oxygen Flow Rate (L/min) [3] 15 Oxygen Flow Rate (L/min) [2] 15 Oxygen Flow Rate (L/min) [1 ( 15 Initial Baseline)] Oxygen Flow Rate (L/min) 2 Oxygen Delivery Method [5] Ambu-Bag Oxygen Delivery Method [4] Ambu-Bag Oxygen Delivery Method [3] Ambu-Bag Oxygen Delivery Method [2] Room Air Oxygen Delivery Method [1 ( Ambu-Bag Initial Baseline)] Oxygen Delivery Method Mechanical Ventilator Weight: 80.4 kg Body Mass Index (BMI) 27.1 Finger Stick Blood Glucose 202 Intake and Output for Last 24 Hours 06/07/18 06/08/18 06/09/18 22:59 23:59 23:59 Intake Total 3339.0 / 3339.0 Output Total 570 / 570 Balance 2769.0 / 2769.0 Microbiology Past 72 Hours 06/06/18 11:00 Urine Culture - Final Urine, Nephrostomy Culture exhibits no growth. 06/03/18 14:55 Blood Culture - Final Blood Culture (Wb) - Left Wrist No growth in 5 days. 06/03/18 15:05 Blood Culture - Final Blood Culture (Wb) - Anticubital Right No growth in 5 days. 06/06/18 12:00 Blood Culture - Preliminary Blood Culture (Wb) - Right Wrist No growth in 48 hours. 06/06/18 11:50 Blood Culture - Preliminary Blood Culture (Wb) - Anticubital Left No growth in 48 hours. 06/02/18 01:24 Blood Culture - Final Blood Culture (Wb) - Anticubital Left No growth in 5 days. 06/02/18 01:10 Blood Culture - Final Blood Culture (Wb) - Right Forearm No growth in 5 days. Laboratory Tests Past 24 Hrs 06/06/18 06/08/18 06/08/18 07:15 15:05 15:05 WBC RBC Hgb Hct MCV MCH MCHC RDW RDW Differential Plt Count 23 L* MPV Neut % (Auto) Absolute Neuts (auto) Absolute Lymphs (auto) Total Counted Neutrophils % (Manual) Band Neutrophils % Lymphocytes % (Manual) Monocytes % (Manual) Metamyelocytes % Myelocytes % Promyelocytes % Blast Cells % Nucleated RBC % 32.1 H Diff Path Review May foll Platelet Estimate Polychromasia Hypochromasia Anisocytosis Microcytosis Schistocytes Absolute Retic 4.77 Haptoglobin Fibrinogen Sodium Potassium Chloride Carbon Dioxide Anion Gap BUN Creatinine Estim Creat Clear Calc Est GFR (MDRD) Af Amer Est GFR (MDRD) Non-Af BUN/Creatinine Ratio Glucose Calcium Phosphorus Magnesium Vitamin B12 1561 H Random Vancomycin Blood Type Antibody Screen Crossmatch See Detail 06/09/18 06/09/18 06/09/18 03:05 03:05 03:05 WBC 13.1 H RBC 2.49 L Hgb 7.6 L Hct 23.5 L MCV 94.4 H MCH 30.5 MCHC 32.3 RDW 17.3 H RDW Differential 55.8 H Plt Count 15 L* MPV Neut % (Auto) Not Reportable Absolute Neuts (auto) 10.0 H Absolute Lymphs (auto) 2.23 Total Counted 100 Neutrophils % (Manual) 73 H Band Neutrophils % 3 Lymphocytes % (Manual) 17 L Monocytes % (Manual) 1 Metamyelocytes % 3 H Myelocytes % 1 H Promyelocytes % 1 H Blast Cells % 1 H* Nucleated RBC % 39.8 H Diff Path Review May foll Platelet Estimate MKD DEC Polychromasia 2+ Hypochromasia 1+ Anisocytosis 2+ Microcytosis 1+ Schistocytes RARE Absolute Retic 5.20 H Haptoglobin Pending Fibrinogen Sodium Potassium Chloride Carbon Dioxide Anion Gap BUN Creatinine Estim Creat Clear Calc Est GFR (MDRD) Af Amer Est GFR (MDRD) Non-Af BUN/Creatinine Ratio Glucose Calcium Phosphorus Magnesium Vitamin B12 Random Vancomycin 17.9 H Blood Type Antibody Screen Crossmatch 06/09/18 06/09/18 06/09/18 03:05 03:05 05:30 WBC RBC Hgb Hct MCV MCH MCHC RDW RDW Differential Plt Count MPV Neut % (Auto) Absolute Neuts (auto) Absolute Lymphs (auto) Total Counted Neutrophils % (Manual) Band Neutrophils % Lymphocytes % (Manual) Monocytes % (Manual) Metamyelocytes % Myelocytes % Promyelocytes % Blast Cells % Nucleated RBC % Diff Path Review Platelet Estimate Polychromasia Hypochromasia Anisocytosis Microcytosis Schistocytes Absolute Retic Haptoglobin Fibrinogen 180 L Sodium 153 H Potassium 3.3 L Chloride 123 H Carbon Dioxide 17.0 L Anion Gap 13 BUN 101 H* Creatinine 2.33 H Estim Creat Clear Calc 23.58 Est GFR (MDRD) Af Amer 35 L Est GFR (MDRD) Non-Af 29 L BUN/Creatinine Ratio 43.3 H Glucose 291 H Calcium 8.0 L Phosphorus 3.8 Magnesium 2.7 H Vitamin B12 Random Vancomycin Blood Type Antibody Screen Crossmatch 06/09/18 06/09/18 06/09/18 05:30 05:30 12:30 WBC 12.9 H RBC 2.10 L Hgb 6.3 L Hct 20.0 L MCV 95.2 H MCH 30.0 MCHC 31.5 L RDW 18.1 H RDW Differential 56.2 H Plt Count 39 L* MPV 9.7 Neut % (Auto) Not Reportable Absolute Neuts (auto) 9.3 H Absolute Lymphs (auto) 2.83 Total Counted 100 Neutrophils % (Manual) 72 H Band Neutrophils % Lymphocytes % (Manual) 22 Monocytes % (Manual) 2 Metamyelocytes % 3 H Myelocytes % Promyelocytes % 1 H Blast Cells % Nucleated RBC % 34.1 H Diff Path Review May foll Platelet Estimate MKD DEC Polychromasia 1+ Hypochromasia 3+ Anisocytosis Microcytosis 1+ Schistocytes RARE Absolute Retic 4.39 Haptoglobin Fibrinogen Sodium Potassium Chloride Carbon Dioxide Anion Gap BUN Creatinine Estim Creat Clear Calc Est GFR (MDRD) Af Amer Est GFR (MDRD) Non-Af BUN/Creatinine Ratio Glucose Calcium Phosphorus Magnesium Vitamin B12 Random Vancomycin Blood Type AB POSITIVE Antibody Screen NEGATIVE Crossmatch See Detail See Detail POC Glucose 06/09/18 06/09/18 06/08/18 13:05 06:09 23:59 POC Glucose 148 H 165 H 232 H 06/08/18 18:15 POC Glucose 271 H Medical Necessity - Tobacco Use Smoking Status: Former smoker Route of nutrition/ use of supplements: [] Nutritional Intake: [] IV Site: [] [place] Catheter: [] - Assessment/Plan Antibiotics: [] Assessment/Plan: [] Active and Suspected Problems (Last Updated 06/02/18 @ 03:12 by Sally fitzgerald MD) Atrial fibrillation and flutter (Acute) Fever (Acute) Anemia (Acute) Thrombocytopenia (Acute) Fever - at this point seems likely due to 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 UA with mild pyuria, Ucx with only small growth of enterococcus-like. On vanc/zosyn. Bcx neg so far. Dr. Alvarado following. R neph tube placed 06/05. Wbc improved, but worsening fever, Cr, plat, hgb, and DIC. Would recommend L neph tube placement, but it would be high risk. Trying for source seems like the only option given worsening with current treatments. May need CALI if condition improves. Will follow, d/w Dr. Nicholson.
--- NOTE | 2018-06-09 17:00 | NURSING ---
education re chronic illness deferred till pt acute illnes resolving
[2018-06-09 17:26] LABS: Bedside Glucose 157 mg/dL (70-110)
[2018-06-09] MEDS: Vital AF 1.2 Cal Liquid 1,000 ML 50 ML GT (17:26)
[2018-06-09] MEDS: Atorvastatin Calcium 10 MG Tablet GT (21:48)
[2018-06-09 22:55] LABS: Hematocrit 27.8 % (40-54); Hemoglobin 8.9 g/dl (13.0-16.5); Mean Corpuscular Hgb 29.6 pg (27.0-32.0); Mean Corpuscular Volume 92.4 fL (80-94); Mean Platelet Vol. 8.6 fl (6.2-12.0); RBC Distribution Width CV 15.8 % (11.6-14.6); RBC Distribution Width SD 50.3 fl (35.1-43.9); Red Blood Count 3.01 M/mm3 (4.6-6.2); White Blood Count 14.4 K/mm3 (4.4-11.0)
[2018-06-09 22:58] LABS: Platelet Count 44 K/mm3 (150-450); Scan Indicated on CBC? Y/N YES- FLAGS NOTED
[2018-06-09] MEDS: fentaNYL drip 100 ML 2.5 MCG IV (23:08)
[2018-06-09 23:17] LABS: Differential Comment SCANNED
[2018-06-09 23:46] LABS: Bedside Glucose 184 mg/dL (70-110)
[2018-06-10] VITALS (55 sets, daily range): BP systolic 84–123; BP diastolic 34–87; PULSE 25–129; RESP 14–249; TEMP 37.2–38.8; O2SAT 21–100
--- NOTE | 2018-06-10 02:27 | NURSING ---
Pt placed on cooling blanket at this time.
[2018-06-10 04:36] LABS: International Normalized Ratio 1.7; Prothrombin Time (Protime)PT. 20.1 SECONDS (11.7-14.9)
[2018-06-10 04:37] LABS: Fibrinogen 218 mg/dl (203-444); Partial Thromboplast Time 37.4 Seconds (24.1-36.2)
[2018-06-10 05:09] LABS: Anion Gap 15 (5-15); BUN 89 mg/dL (7-18); BUN/Creat Ratio 44.3 RATIO (10-20); Calcium,Total 8.1 mg/dL (8.5-10.1); Chloride 126 mmol/L (98-107); Creatinine, Serum 2.01 mg/dL (0.70-1.30); EST Glomerular Filtration Rate 34 mL/min (>60); Est Glom Filt Rate - Afr Amer 42 mL/min (>60); Estimated Creatinine Clearance 27.33 ml/min; Glucose 229 mg/dL (74-106); Potassium 2.9 mmol/L (3.5-5.1); Sodium Level 155 mmol/L (136-145)
[2018-06-10] MEDS: CHLORHEXIDINE GLUC 2% CLOTH 1 EACH TOWELETTE TOPICAL (05:39)
[2018-06-10] MEDS: dilTIAZem 30 MG Tablet PO (05:39)
[2018-06-10] MEDS: Sucralfate 1 GM Tablet GT ×3 (05:39→22:17)
[2018-06-10] MEDS: Insulin Lispro 100 UNIT/ML INSULN.PEN SC ×3 (05:45→16:33)
[2018-06-10 05:55] LABS: Bedside Glucose 217 mg/dL (70-110)
--- NOTE | 2018-06-10 06:11 | PN_ITS ---
Subjective: The patient was seen and examined at the bedside this morning. Events from the last 24 hours have been reviewed. The patient's fever curve continues to trend upward. He is currently on a cooling blanket. His FiO2 requirement remains stable at 30%. The patient's blood pressures appear to have slowly trended down this morning. He did undergo successful left-sided percutaneous nephrostomy tube placement yesterday. Overnight, the patient has been bleeding from his [place] catheter, rectum and nephrostomy tube insertion site. A spontaneous br eathing trial was not attempted this morning. Patient remains on fentanyl at 25 mcg/h. He did convert back into A. fib/flutter overnight at approximately 0400 hrs. The patient's hemoglobin is stable this morning at 9.2 g/dL. In addition, his platelet count is stable at 44,000. His PT and PTT are currently elevated. Orders were placed this morning for the patient to receive FFP. Fibrinogen is stable at 218. Sodium remains elevated at 155. Potassium is low at 2.9. The patient is currently documented to be overall net +17.4 L for the admission. Objective: The patient's most recent lab work, culture data and imaging studies have all been personally reviewed. Surface echocardiogram revealed normal LV size and function with an ejection fraction of 65% and stage I diastolic dysfunction. Pulmonary artery systolic pressure was estimated to be 40 mmHg. VQ scan completed on June 02 was noted to be a low quality VQ scan, but was reported to be most consistent with low probability for PE. CT chest dated June 02 revealed small bilateral pleural effusions without focal infiltrates. CT abdomen revealed bilateral hydronephrosis along with bilateral hydroureter. Urine culture dated June 02 and June 03 both revealed Enterococcus faecalis. General: Alert, - - Quite ill in appearance. Minimally sedated. HEENT: Atraumatic, PERRLA, Normocephalic Oral: Dry Mucosa, - - Endotracheal and OG tubes remain in place. Neck: Supple, No Nodes, Trachea Midline Lungs: No rhonchi, No wheeze, No rales, Diminished, Tachypneic Cardiovascular: Normal S1, Normal S2, Bradycardic, Irregular Rate, Murmur Abdomen: Soft, Non Tender, Non-Distended, - - Bilateral percutaneous nephrostomy tubes in place. There is a great deal bleeding from the left-sided tube insertion site. Extremities: No clubbing, No cyanosis, - - Diffuse anasarca with mottling of the lower extremities and significant pitting edema. Scattered petechiae noted. Skin: - - Skin findings as noted above. Musculoskeletal: Cachexia, - - + Temporal wasting Lymphatic: No Cervical, Supraclavicular, or Inguinal Adenopathy Neurological: - - No focal neurological deficits. Psych/Mental Status: Flat Affect, Depressed Vital Signs Temp Pulse Resp BP Pulse Ox 37.5 C H 79 23 H 84/69 L 100 06/10/18 06:00 06/10/18 06:00 06/10/18 06:00 06/10/18 06:00 06/10/18 06:00 Oxygen Flow Rate (L/min) [5] 15 Oxygen Flow Rate (L/min) [4] 15 Oxygen Flow Rate (L/min) [3] 15 Oxygen Flow Rate (L/min) [2] 15 Oxygen Flow Rate (L/min) [1 ( 15 Initial Baseline)] Oxygen Flow Rate (L/min) 2 Oxygen Delivery Method [5] Ambu-Bag Oxygen Delivery Method [4] Ambu-Bag Oxygen Delivery Method [3] Ambu-Bag Oxygen Delivery Method [2] Room Air Oxygen Delivery Method [1 ( Ambu-Bag Initial Baseline)] Oxygen Delivery Method Mechanical Ventilator Weight: 183 lb 3.266 oz Body Mass Index (BMI) 27.1 Finger Stick Blood Glucose 202 Intake and Output for Last 24 Hours 06/08/18 06/09/18 06/10/18 23:59 23:59 23:59 Intake Total 6372.8 / 6372.8 811.7 / 811.7 Output Total 1180 / 1180 510 / 510 Balance 5192.8 / 5192.8 301.7 / 301.7 Labs (Last 48 Hours) 06/06/18 06/08/18 06/08/18 07:15 04:45 04:45 WBC RBC Hgb Hct MCV MCH MCHC RDW RDW Differential Plt Count MPV Neut % (Auto) Absolute Neuts (auto) Absolute Lymphs (auto) Total Counted Neutrophils % (Manual) Band Neutrophils % Lymphocytes % (Manual) Monocytes % (Manual) Metamyelocytes % Myelocytes % Promyelocytes % Blast Cells % Nucleated RBC % Differential Comment Diff Path Review Platelet Estimate Immature Plt Fraction 14.7 H Polychromasia Hypochromasia Anisocytosis Microcytosis Schistocytes Retic Count 4.74 H Absolute Retic Immature Retic Fraction 41.50 H Retic Hgb Equivalent 34.6 Haptoglobin PT INR APTT Fibrinogen Sodium Potassium Chloride Carbon Dioxide Anion Gap BUN Creatinine Estim Creat Clear Calc Est GFR (MDRD) Af Amer Est GFR (MDRD) Non-Af BUN/Creatinine Ratio Glucose Calcium Phosphorus Magnesium Iron 90 TIBC 207 L Iron Saturation 43.5 Lactate Dehydrogenase 1072 H Vitamin B12 Folate 27.10 Random Vancomycin POC Glucose Blood Type Antibody Screen Crossmatch See Detail 06/08/18 06/08/18 06/08/18 13:07 15:05 15:05 WBC 14.8 H RBC 2.76 L Hgb 8.3 L Hct 25.9 L MCV 93.8 MCH 30.1 MCHC 32.0 RDW 17.0 H RDW Differential 55.9 H Plt Count 23 L* MPV TNP Neut % (Auto) Absolute Neuts (auto) Absolute Lymphs (auto) Total Counted Neutrophils % (Manual) Band Neutrophils % Lymphocytes % (Manual) Monocytes % (Manual) Metamyelocytes % Myelocytes % Promyelocytes % Blast Cells % Nucleated RBC % 32.1 H Differential Comment Diff Path Review May foll Platelet Estimate Immature Plt Fraction Polychromasia Hypochromasia Anisocytosis Microcytosis Schistocytes Retic Count Absolute Retic 4.77 Immature Retic Fraction Retic Hgb Equivalent Haptoglobin PT INR APTT Fibrinogen Sodium Potassium Chloride Carbon Dioxide Anion Gap BUN Creatinine Estim Creat Clear Calc Est GFR (MDRD) Af Amer Est GFR (MDRD) Non-Af BUN/Creatinine Ratio Glucose Calcium Phosphorus Magnesium Iron TIBC Iron Saturation Lactate Dehydrogenase Vitamin B12 Folate Random Vancomycin 20.9 H POC Glucose 270 H Blood Type Antibody Screen Crossmatch 06/08/18 06/08/18 06/08/18 15:05 18:15 23:59 WBC RBC Hgb Hct MCV MCH MCHC RDW RDW Differential Plt Count MPV Neut % (Auto) Absolute Neuts (auto) Absolute Lymphs (auto) Total Counted Neutrophils % (Manual) Band Neutrophils % Lymphocytes % (Manual) Monocytes % (Manual) Metamyelocytes % Myelocytes % Promyelocytes % Blast Cells % Nucleated RBC % Differential Comment Diff Path Review Platelet Estimate Immature Plt Fraction Polychromasia Hypochromasia Anisocytosis Microcytosis Schistocytes Retic Count Absolute Retic Immature Retic Fraction Retic Hgb Equivalent Haptoglobin PT INR APTT Fibrinogen Sodium Potassium Chloride Carbon Dioxide Anion Gap BUN Creatinine Estim Creat Clear Calc Est GFR (MDRD) Af Amer Est GFR (MDRD) Non-Af BUN/Creatinine Ratio Glucose Calcium Phosphorus Magnesium Iron TIBC Iron Saturation Lactate Dehydrogenase Vitamin B12 1561 H Folate Random Vancomycin POC Glucose 271 H 232 H Blood Type Antibody Screen Crossmatch 06/09/18 06/09/18 06/09/18 03:05 03:05 03:05 WBC 13.1 H RBC 2.49 L Hgb 7.6 L Hct 23.5 L MCV 94.4 H MCH 30.5 MCHC 32.3 RDW 17.3 H RDW Differential 55.8 H Plt Count 15 L* MPV Neut % (Auto) Not Reportable Absolute Neuts (auto) 10.0 H Absolute Lymphs (auto) 2.23 Total Counted 100 Neutrophils % (Manual) 73 H Band Neutrophils % 3 Lymphocytes % (Manual) 17 L Monocytes % (Manual) 1 Metamyelocytes % 3 H Myelocytes % 1 H Promyelocytes % 1 H Blast Cells % 1 H* Nucleated RBC % 39.8 H Differential Comment Diff Path Review May foll Platelet Estimate MKD DEC Immature Plt Fraction Polychromasia 2+ Hypochromasia 1+ Anisocytosis 2+ Microcytosis 1+ Schistocytes RARE Retic Count Absolute Retic 5.20 H Immature Retic Fraction Retic Hgb Equivalent Haptoglobin Pending PT INR APTT Fibrinogen Sodium Potassium Chloride Carbon Dioxide Anion Gap BUN Creatinine Estim Creat Clear Calc Est GFR (MDRD) Af Amer Est GFR (MDRD) Non-Af BUN/Creatinine Ratio Glucose Calcium Phosphorus Magnesium Iron TIBC Iron Saturation Lactate Dehydrogenase Vitamin B12 Folate Random Vancomycin 17.9 H POC Glucose Blood Type Antibody Screen Crossmatch 06/09/18 06/09/18 06/09/18 03:05 03:05 05:30 WBC RBC Hgb Hct MCV MCH MCHC RDW RDW Differential Plt Count MPV Neut % (Auto) Absolute Neuts (auto) Absolute Lymphs (auto) Total Counted Neutrophils % (Manual) Band Neutrophils % Lymphocytes % (Manual) Monocytes % (Manual) Metamyelocytes % Myelocytes % Promyelocytes % Blast Cells % Nucleated RBC % Differential Comment Diff Path Review Platelet Estimate Immature Plt Fraction Polychromasia Hypochromasia Anisocytosis Microcytosis Schistocytes Retic Count Absolute Retic Immature Retic Fraction Retic Hgb Equivalent Haptoglobin PT INR APTT Fibrinogen 180 L Sodium 153 H Potassium 3.3 L Chloride 123 H Carbon Dioxide 17.0 L Anion Gap 13 BUN 101 H* Creatinine 2.33 H Estim Creat Clear Calc 23.58 Est GFR (MDRD) Af Amer 35 L Est GFR (MDRD) Non-Af 29 L BUN/Creatinine Ratio 43.3 H Glucose 291 H Calcium 8.0 L Phosphorus 3.8 Magnesium 2.7 H Iron TIBC Iron Saturation Lactate Dehydrogenase Vitamin B12 Folate Random Vancomycin POC Glucose Blood Type Antibody Screen Crossmatch 06/09/18 06/09/18 06/09/18 05:30 05:30 06:09 WBC RBC Hgb Hct MCV MCH MCHC RDW RDW Differential Plt Count MPV Neut % (Auto) Absolute Neuts (auto) Absolute Lymphs (auto) Total Counted Neutrophils % (Manual) Band Neutrophils % Lymphocytes % (Manual) Monocytes % (Manual) Metamyelocytes % Myelocytes % Promyelocytes % Blast Cells % Nucleated RBC % Differential Comment Diff Path Review Platelet Estimate Immature Plt Fraction Polychromasia Hypochromasia Anisocytosis Microcytosis Schistocytes Retic Count Absolute Retic Immature Retic Fraction Retic Hgb Equivalent Haptoglobin PT INR APTT Fibrinogen Sodium Potassium Chloride Carbon Dioxide Anion Gap BUN Creatinine Estim Creat Clear Calc Est GFR (MDRD) Af Amer Est GFR (MDRD) Non-Af BUN/Creatinine Ratio Glucose Calcium Phosphorus Magnesium Iron TIBC Iron Saturation Lactate Dehydrogenase Vitamin B12 Folate Random Vancomycin POC Glucose 165 H Blood Type AB POSITIVE Antibody Screen NEGATIVE Crossmatch See Detail See Detail 06/09/18 06/09/18 06/09/18 12:30 13:05 17:19 WBC 12.9 H RBC 2.10 L Hgb 6.3 L Hct 20.0 L MCV 95.2 H MCH 30.0 MCHC 31.5 L RDW 18.1 H RDW Differential 56.2 H Plt Count 39 L* MPV 9.7 Neut % (Auto) Not Reportable Absolute Neuts (auto) 9.3 H Absolute Lymphs (auto) 2.83 Total Counted 100 Neutrophils % (Manual) 72 H Band Neutrophils % Lymphocytes % (Manual) 22 Monocytes % (Manual) 2 Metamyelocytes % 3 H Myelocytes % Promyelocytes % 1 H Blast Cells % Nucleated RBC % 34.1 H Differential Comment Diff Path Review May foll Platelet Estimate MKD DEC Immature Plt Fraction Polychromasia 1+ Hypochromasia 3+ Anisocytosis Microcytosis 1+ Schistocytes RARE Retic Count Absolute Retic 4.39 Immature Retic Fraction Retic Hgb Equivalent Haptoglobin PT INR APTT Fibrinogen Sodium Potassium Chloride Carbon Dioxide Anion Gap BUN Creatinine Estim Creat Clear Calc Est GFR (MDRD) Af Amer Est GFR (MDRD) Non-Af BUN/Creatinine Ratio Glucose Calcium Phosphorus Magnesium Iron TIBC Iron Saturation Lactate Dehydrogenase Vitamin B12 Folate Random Vancomycin POC Glucose 148 H 157 H Blood Type Antibody Screen Crossmatch 06/09/18 06/09/18 06/10/18 22:40 23:39 03:45 WBC 14.4 H Pending RBC 3.01 L Pending Hgb 8.9 L Pending Hct 27.8 L Pending MCV 92.4 Pending MCH 29.6 Pending MCHC 32.0 Pending RDW 15.8 H Pending RDW Differential 50.3 H Pending Plt Count 44 L* Pending MPV 8.6 Neut % (Auto) Pending Absolute Neuts (auto) Pending Absolute Lymphs (auto) Total Counted Pending Neutrophils % (Manual) Band Neutrophils % Lymphocytes % (Manual) Monocytes % (Manual) Metamyelocytes % Myelocytes % Promyelocytes % Blast Cells % Nucleated RBC % Differential Comment SCANNED Diff Path Review May foll Platelet Estimate Immature Plt Fraction Polychromasia Hypochromasia Anisocytosis Microcytosis Schistocytes Retic Count Absolute Retic Immature Retic Fraction Retic Hgb Equivalent Haptoglobin PT INR APTT Fibrinogen Sodium Potassium Chloride Carbon Dioxide Anion Gap BUN Creatinine Estim Creat Clear Calc Est GFR (MDRD) Af Amer Est GFR (MDRD) Non-Af BUN/Creatinine Ratio Glucose Calcium Phosphorus Magnesium Iron TIBC Iron Saturation Lactate Dehydrogenase Vitamin B12 Folate Random Vancomycin POC Glucose 184 H Blood Type Antibody Screen Crossmatch 06/10/18 06/10/18 06/10/18 03:45 03:45 05:45 WBC RBC Hgb Hct MCV MCH MCHC RDW RDW Differential Plt Count MPV Neut % (Auto) Absolute Neuts (auto) Absolute Lymphs (auto) Total Counted Neutrophils % (Manual) Band Neutrophils % Lymphocytes % (Manual) Monocytes % (Manual) Metamyelocytes % Myelocytes % Promyelocytes % Blast Cells % Nucleated RBC % Differential Comment Diff Path Review Platelet Estimate Immature Plt Fraction Polychromasia Hypochromasia Anisocytosis Microcytosis Schistocytes Retic Count Absolute Retic Immature Retic Fraction Retic Hgb Equivalent Haptoglobin PT 20.1 H INR 1.7 APTT 37.4 H Fibrinogen 218 Sodium 155 H Potassium 2.9 L Chloride 126 H Carbon Dioxide 14.0 L Anion Gap 15 BUN 89 H Creatinine 2.01 H Estim Creat Clear Calc 27.33 Est GFR (MDRD) Af Amer 42 L Est GFR (MDRD) Non-Af 34 L BUN/Creatinine Ratio 44.3 H Glucose 229 H Calcium 8.1 L Phosphorus Magnesium Iron TIBC Iron Saturation Lactate Dehydrogenase Vitamin B12 Folate Random Vancomycin POC Glucose 217 H Blood Type Antibody Screen Crossmatch Microbiology 06/06/18 11:00 Urine, Nephrostomy Urine Culture - Final Culture exhibits no growth. 06/03/18 14:55 Blood Culture (Wb) - Left Wrist Blood Culture - Final No growth in 5 days. 06/03/18 15:05 Blood Culture (Wb) - Anticubital Right Blood Culture - Final No growth in 5 days. 06/06/18 12:00 Blood Culture (Wb) - Right Wrist Blood Culture - Preliminary No growth in 48 hours. 06/06/18 11:50 Blood Culture (Wb) - Anticubital Left Blood Culture - Preliminary No growth in 48 hours. Clinical Impression(s) from Imaging Studies Brain CT 06/02/18 01:25 IMPRESSION: No acute findings. Individualized dose optimization techniques were used for this CT. at 0159 Reported and signed by: Geoff Joaquin MD Electronically Signed: Geoff Joaquin, at 1:58 EST Tel , Service support , Cervical Spine CT 06/02/18 01:25 IMPRESSION: No fracture or dislocation of the cervical spine. Individualized dose optimization techniques were used for this CT. at 0206 Reported and signed by: Geoff Joaquin MD Electronically Signed: Geoff Joaquin, at 2:05 EST Tel , Service support , Chest X-Ray 06/02/18 01:35 IMPRESSION: Low lung volumes with resultant hypoventilatory changes. No definite pneumonia or edema. Interval sternotomy probably for heart valve replacement. at 0154 Reported and signed by: Geoff Joaquin MD Electronically Signed: Geoff Joaquin, at 1:53 EST Tel , Service support , Lung Scan-VQ NM 06/02/18 13:55 IMPRESSION: Low quality VQ scan, most consistent with low probability of pulmonary embolism. Electronically Signed: Kenny Greene MD at 16:31 EST , Service support , Chest X-Ray 06/02/18 14:28 IMPRESSION: Moderate right pleural effusion with overlying atelectasis. Electronically Signed: Juan Ruiz, at 15:40 EST Tel , Service support , Chest CT 06/02/18 21:14 IMPRESSION: Small bilateral pleural effusions with overlying atelectasis. Sclerotic osseous lesions which are suspicious for metastasis. Electronically Signed: Juan Ruiz, at 22:14 EST Tel , Service support , Chest X-Ray 06/02/18 22:26 IMPRESSION: Mild left basilar atelectasis status post endotracheal tube placement Electronically Signed: Norbert Snyder MD at 23:18 EST , Service support , Abdomen CT 06/04/18 12:33 IMPRESSION: Bilateral hydronephrosis right greater than left with bilateral hydroureter. Diffusely thickened bladder wall. Electronically Signed: Javier Unger, at 15:28 EST , Service support , Nephrostomy Tube Change 06/05/18 07:41 IMPRESSION: 1. The percutaneous right nephrostomy catheter is in good position with the pigtail portion located in the right renal pelvis. 2. The conscious sedation protocol was followed. Electronically Signed: Javier Unger, at 14:33 EST , Service support , Medical Necessity - Tobacco Use Smoking Status: Former smoker Assessment/Plan All Active Problems (Last Reviewed 06/05/18 @ 07:40 by Dangelo Alvarado MD) Atrial fibrillation and flutter (Acute) Fever (Acute) Anemia (Acute) Thrombocytopenia (Acute) Bilateral hydronephrosis (Acute) DIC syndrome (Acute) RECOMMENDATIONS: 1. Transfuse FFP this morning, given prolonged PT and PTT. Hemoglobin is currently stable. 2. Transfuse additional platelets as ordered. 3. Additional potassium repletion as ordered. Check serum magnesium level as well. 4. Continue tube feeds and free water flushes. 5. Continue rate/rhythm control therapy per cardiology recommendations 6. Continue twice daily PPI therapy. 7. Continue antibiotics per ID recommendations. IMPRESSIONS: 1. Acute hypoxemic respiratory failure The exact etiology for the patient's clinical decompensation is unclear. However, the patient was noted to be tachycardic at the time when he was initially beginning to decompensate. It is unclear whether this was atrial fibrillation or a sinus tachycardia. Given that the patient has paroxysmal atrial fibrillation and underlying valvular heart disease, it is possible that his decompensation may have been heart rate related. In addition, increased metabolic demands from the patient's sepsis and fevers also likely contributed. He is chronically anticoagulated with Eliquis on an outpatient basis. The patient's CT chest only revealed evidence of small bilateral pleural effusions without focal infiltrates. His FiO2 was able to be quickly weaned. I would hold off on attempts to extubate the patient until his transesophageal echocardiogram has been completed on Saturday. At this time, the patient is severely volume overloaded. He is going to require volume optimization, likely with IV diuretics, which may be limited by his current renal function and hemodynamic status. 2. Severe sepsis with evidence of bilateral hydronephrosis/hydroureter The patient appears to be septic from a urinary source of infection. CT abdomen did reveal evidence of bilateral hydronephrosis, for which the patient underwent bilateral percutaneous nephrostomy tube placement. Antibiotics will be continued per infectious diseases recommendations. If there is no improvement in the patient's overall clinical state in the next 24 hours, consideration will be given to obtaining a transesophageal echocardiogram. 3. Paroxysmal atrial fibrillation with RVR/history of aortic valve replacement Cardiology following to assist with management. The patient is currently on both amiodarone and Cardizem. I have recommended that the patient's Cardizem be placed on hold for now, given that he is bradycardic this morning. 4. Anemia secondary to upper GI hemorrhage/thrombocytopenia secondary to DIC The patient does have known normocytic anemia, which appears to have worsened over the course of this hospital stay. The patient did require eventual transfusion of packed red blood cells. Upper endoscopy performed at the bedside did reveal evidence of GI ulcers. However, there was no active bleeding. This will require the permanent discontinuation of the patient's systemic anticoagulation. He will be continued on twice daily PPI therapy and monitored for any ongoing blood loss. The patient has also developed worsening thrombocytopenia, which following workup, appears to be related to DIC, likely secondary to the patient's sepsis syndrome. The patient continues to experience bleeding from several different sites. He will receive additional blood products this morning, including FFP and platelets. 5. Hypokalemia Electrolyte repletion as ordered. Check magnesium level as well. Given the patient's underlying arrhythmia, attempt to maintain a potassium greater than 4 and magnesium greater than 2. 6. Metastatic prostate cancer/anemia/chronic kidney disease/hypertension/hyperlipidemia/depression/generalized deconditioning and debility Complicates care, management, recovery and prognosis. Likely okay to continue home medications. Physical therapy to once again work with patient once medically stabilized. Recommend formal goals of care discussion with the patient and his family. TIME: 45 minutes of critical care time, independent of procedures, was spent addressing the patient's acute hypoxemic respiratory failure, severe sepsis, paroxysmal atrial fibrillation with a rapid ventricular rate, metastatic prostate cancer, anemia, upper gastrointestinal bleed, DIC, review of all data and collaboration with the care team. ([id number]) Code Visit [id number]: [id number] Critical care first hour
[2018-06-10 06:27] LABS: Hematocrit 28.5 % (40-54); Hemoglobin 9.2 g/dl (13.0-16.5); Mean Corp Hgb Conc 32.3 g/gl (32-36); Mean Corpuscular Volume 92.8 fL (80-94); Platelet Count 44 K/mm3 (150-450); RBC Distribution Width CV 16.2 % (11.6-14.6); RBC Distribution Width SD 51.5 fl (35.1-43.9); Red Blood Count 3.07 M/mm3 (4.6-6.2)
[2018-06-10 06:33] LABS: Differential Indicated MANUAL DIFF; POSITIVE COUNT YES; POSITIVE DIFFERENTIAL NO; POSITIVE MORPHOLOGY YES
[2018-06-10 07:15] LABS: Corrected WBC 8.5 K/mm3 (4.4-11.0); Eosinophil 2 % (0-5); Lymphocyte 12 % (19-41); Metamyelocyte 1 % (0-1); Monocyte 2 % (0-10); Neutrophil-Band 4 % (0-5); Neutrophil-Segmented 79 % (47-70); Nucleated Red Bld Cells,Manual 23 % (0-5); Total Cells Counted 100 (MANUAL DIFF)
[2018-06-10 07:16] LABS: Anisocytosis 2+
[2018-06-10 07:17] LABS: Hypochromasia 1+; Platelet Estimate MKD DEC (ADEQ)
[2018-06-10 07:20] LABS: Magnesium 2.6 mg/dL (1.6-2.6)
--- NOTE | 2018-06-10 07:27 | PCM.PROGNOTE ---
Patient Problems: Active and Suspected Problems (Last Reviewed 06/05/18 @ 07:40 by Dangelo Alvarado MD) Atrial fibrillation and flutter (Acute) Fever (Acute) Anemia (Acute) Thrombocytopenia (Acute) Bilateral hydronephrosis (Acute) DIC syndrome (Acute) Subjective: This is day 9 in the hospital. Day #8 ventilator Day #9 Zosyn All events of the past 24 hours been reviewed. Temperature today is currently 98.9 and effervescing. Blood pressures over the past 24 hours has ranged from 84/69 to 117/51. He is 100% saturated on a 30% FiO2 with a respiratory rate of 24 currently Fluid balance since admission is [phone]. Fluid balance on 06/09/2018 was +[phone]. He had a left nephrostomy tube placed yesterday by Dr. Unger. To date he has received 7 units of packed red blood cells, 2 units of fresh frozen plasma, 3 units of leukocyte reduced pheresis of platelets and 1 unit of random platelets. Blood cultures from 06/06/2018 had no growth. Urine has grown Enterococcus faecalis Objective: - Physical Exam General: - - He is awake and sedated with Fentanyl. Able to squeeze my hand on command but, not consistently answering yes and no questions. 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 Lungs: Clear to auscultation - anterior and lateral, No wheeze, No rales, Tachypneic, diminished Cardiovascular: Regular rate, Regular Rhythm, Normal S1, Normal S2, Murmur - at the second RICS with radiation to the LVOT and the LLSB, No Gallop, - - Telemetry shows NSR, no significnat ectopy Abdomen: Bowel Sounds Present, Soft, Non-Distended, - - No guarding with palpation Extremities: No cyanosis, Diminished Peripheral Pulses - the pedal pulses are not palpable and the feet are cold to the touch but the popliteal pulses are 2-3 BL, Edema - of the legs Skin: - - he has an abrasion on the right knee and multiple scattered area of ecchymosis Musculoskeletal: Arthritic Changes Neurological: Cranial nerves II-XII grossly intact - Physical Exam Vital Signs Temp Pulse Resp BP Pulse Ox 98.9 F 71 24 H 98/48 L 100 06/10/18 07:00 06/10/18 07:00 06/10/18 07:00 06/10/18 07:00 06/10/18 07:00 Oxygen Flow Rate (L/min) [5] 15 Oxygen Flow Rate (L/min) [4] 15 Oxygen Flow Rate (L/min) [3] 15 Oxygen Flow Rate (L/min) [2] 15 Oxygen Flow Rate (L/min) [1 ( 15 Initial Baseline)] Oxygen Flow Rate (L/min) 2 Oxygen Delivery Method [5] Ambu-Bag Oxygen Delivery Method [4] Ambu-Bag Oxygen Delivery Method [3] Ambu-Bag Oxygen Delivery Method [2] Room Air Oxygen Delivery Method [1 ( Ambu-Bag Initial Baseline)] Oxygen Delivery Method Mechanical Ventilator Weight: 183 lb 3.266 oz Body Mass Index (BMI) 27.1 Finger Stick Blood Glucose 202 Intake and Output for Last 24 Hours 06/08/18 06/09/18 06/10/18 23:59 23:59 23:59 Intake Total 6372.8 / 6372.8 811.7 / 811.7 Output Total 1180 / 1180 510 / 510 Balance 5192.8 / 5192.8 301.7 / 301.7 Microbiology Past 72 Hours 06/06/18 11:00 Urine Culture - Final Urine, Nephrostomy Culture exhibits no growth. 06/03/18 14:55 Blood Culture - Final Blood Culture (Wb) - Left Wrist No growth in 5 days. 06/03/18 15:05 Blood Culture - Final Blood Culture (Wb) - Anticubital Right No growth in 5 days. 06/06/18 12:00 Blood Culture - Preliminary Blood Culture (Wb) - Right Wrist No growth in 48 hours. 06/06/18 11:50 Blood Culture - Preliminary Blood Culture (Wb) - Anticubital Left No growth in 48 hours. 06/02/18 01:24 Blood Culture - Final Blood Culture (Wb) - Anticubital Left No growth in 5 days. 06/02/18 01:10 Blood Culture - Final Blood Culture (Wb) - Right Forearm No growth in 5 days. Laboratory Tests Past 24 Hrs 06/06/18 06/08/18 06/09/18 07:15 15:05 03:05 WBC Corrected WBC RBC Hgb Hct MCV MCH MCHC RDW RDW Differential Plt Count MPV Neut % (Auto) Absolute Neuts (auto) Absolute Lymphs (auto) Total Counted Neutrophils % (Manual) Band Neutrophils % Lymphocytes % (Manual) Monocytes % (Manual) Eosinophils % (Manual) Metamyelocytes % Promyelocytes % Nucleated RBC % Nucleated RBCs/100 WBC Differential Comment Diff Path Review Platelet Estimate Polychromasia Hypochromasia Anisocytosis Microcytosis Schistocytes Absolute Retic PT INR APTT Fibrinogen Sodium Potassium Chloride Carbon Dioxide Anion Gap BUN Creatinine Estim Creat Clear Calc Est GFR (MDRD) Af Amer Est GFR (MDRD) Non-Af BUN/Creatinine Ratio Glucose Calcium Phosphorus 3.8 Magnesium 2.7 H Vitamin B12 1561 H Blood Type Antibody Screen Crossmatch See Detail 06/09/18 06/09/18 06/09/18 05:30 05:30 12:30 WBC 12.9 H Corrected WBC RBC 2.10 L Hgb 6.3 L Hct 20.0 L MCV 95.2 H MCH 30.0 MCHC 31.5 L RDW 18.1 H RDW Differential 56.2 H Plt Count 39 L* MPV 9.7 Neut % (Auto) Not Reportable Absolute Neuts (auto) 9.3 H Absolute Lymphs (auto) 2.83 Total Counted 100 Neutrophils % (Manual) 72 H Band Neutrophils % Lymphocytes % (Manual) 22 Monocytes % (Manual) 2 Eosinophils % (Manual) Metamyelocytes % 3 H Promyelocytes % 1 H Nucleated RBC % 34.1 H Nucleated RBCs/100 WBC Differential Comment Diff Path Review May foll Platelet Estimate MKD DEC Polychromasia 1+ Hypochromasia 3+ Anisocytosis Microcytosis 1+ Schistocytes RARE Absolute Retic 4.39 PT INR APTT Fibrinogen Sodium Potassium Chloride Carbon Dioxide Anion Gap BUN Creatinine Estim Creat Clear Calc Est GFR (MDRD) Af Amer Est GFR (MDRD) Non-Af BUN/Creatinine Ratio Glucose Calcium Phosphorus Magnesium Vitamin B12 Blood Type AB POSITIVE Antibody Screen NEGATIVE Crossmatch See Detail See Detail 06/09/18 06/10/18 06/10/18 22:40 03:45 03:45 WBC 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 Corrected WBC 8.5 RBC 3.01 L 3.07 L Hgb 8.9 L 9.2 L Hct 27.8 L 28.5 L MCV 92.4 92.8 MCH 29.6 30.0 MCHC 32.0 32.3 RDW 15.8 H 16.2 H RDW Differential 50.3 H 51.5 H Plt Count 44 L* 44 L* MPV 8.6 11.0 Neut % (Auto) Not Reportable Absolute Neuts (auto) Not Reportable Absolute Lymphs (auto) Total Counted 100 Neutrophils % (Manual) 79 H Band Neutrophils % 4 Lymphocytes % (Manual) 12 L Monocytes % (Manual) 2 Eosinophils % (Manual) 2 Metamyelocytes % 1 Promyelocytes % Nucleated RBC % Nucleated RBCs/100 WBC 23 H Differential Comment SCANNED Diff Path Review May foll May foll Platelet Estimate MKD DEC Polychromasia Hypochromasia 1+ Anisocytosis 2+ Microcytosis Schistocytes Absolute Retic PT INR APTT Fibrinogen Sodium 155 H Potassium 2.9 L Chloride 126 H Carbon Dioxide 14.0 L Anion Gap 15 BUN 89 H Creatinine 2.01 H Estim Creat Clear Calc 27.33 Est GFR (MDRD) Af Amer 42 L Est GFR (MDRD) Non-Af 34 L BUN/Creatinine Ratio 44.3 H Glucose 229 H Calcium 8.1 L Phosphorus Magnesium Vitamin B12 Blood Type Antibody Screen Crossmatch 06/10/18 06/10/18 03:45 03:45 WBC Corrected WBC RBC Hgb Hct MCV MCH MCHC RDW RDW Differential Plt Count MPV Neut % (Auto) Absolute Neuts (auto) Absolute Lymphs (auto) Total Counted Neutrophils % (Manual) Band Neutrophils % Lymphocytes % (Manual) Monocytes % (Manual) Eosinophils % (Manual) Metamyelocytes % Promyelocytes % Nucleated RBC % Nucleated RBCs/100 WBC Differential Comment Diff Path Review Platelet Estimate Polychromasia Hypochromasia Anisocytosis Microcytosis Schistocytes Absolute Retic PT 20.1 H INR 1.7 APTT 37.4 H Fibrinogen 218 Sodium Potassium Chloride Carbon Dioxide Anion Gap BUN Creatinine Estim Creat Clear Calc Est GFR (MDRD) Af Amer Est GFR (MDRD) Non-Af BUN/Creatinine Ratio Glucose Calcium Phosphorus Magnesium 2.6 Vitamin B12 Blood Type Antibody Screen Crossmatch POC Glucose 06/10/18 06/09/18 06/09/18 05:45 23:39 17:19 POC Glucose 217 H 184 H 157 H 06/09/18 13:05 POC Glucose 148 H Medical Necessity - Tobacco Use Smoking Status: Former smoker Assessment/Plan All Active Problems (Last Reviewed 06/05/18 @ 07:40 by Dangelo Alvarado MD) Atrial fibrillation and flutter (Acute) Fever (Acute) Anemia (Acute) Thrombocytopenia (Acute) Bilateral hydronephrosis (Acute) DIC syndrome (Acute) Day #10 and Zosyn Day #10 ventilator Impressions 1. Acute hypoxemic respiratory failure requiring intubation 2. Septic shock with hypotension requiring pressors secondary to Enterococcus faecalis 3. DIC 4. Upper GI bleed secondary to peptic ulcer disease-hemoglobin is now stable 5. Atrial fibrillation/atrial flutter with rapid ventricular response 6. History of bioprosthetic aortic valve 7. Acute urinary tract infection with bilateral hydronephrosis status post right nephrostomy tube on 06/05/2018 and left nephrostomy tube on 06/09/2018 8. Acute renal failure on chronic kidney disease stage III-secondary to bladder outlet obstruction with bilateral hydronephrosis and hydroureter as well as sepsis and dehydration 9. Metabolic acidosis secondary to acute renal failure 10. Hypertension 11. Prostate cancer with metastases to the bone-never treated 12. Bladder outlet obstruction 13. Severe anemia secondary to upper GI bleed, thrombocytopenia and DIC 14. Hypokalemia 15. Hyperlipidemia 16. Depression 17. Moderate malnutrition 18. Hypernatremia 19. Abnormal LFTs-possible liver metastases 20. Elevated troponin likely secondary to demand ischemia from atrial fibrillation with rapid ventricular response 21. Stage I diastolic dysfunction Continue to transfuse PLT's, PRBC's and FFP as needed -the fibrinogen is starting to increase Continue tube feed Supplement potassium, magnesium and phosphorus as needed Continue Zosyn-vancomycin discontinued by Dr. Qureshi
--- NOTE | 2018-06-10 08:15 | PN.SURG_ITS ---
Patient Problems: Active and Suspected Problems (Last Reviewed 06/05/18 @ 07:40 by Dangelo Alvarado MD) Atrial fibrillation and flutter (Acute) Fever (Acute) Anemia (Acute) Thrombocytopenia (Acute) Bilateral hydronephrosis (Acute) DIC syndrome (Acute) Subjective: Patient had contralateral nephrostomy tube placed yesterday. He continues to have bloody bowel movements as well as bleeding from his [place] and nephrostomy tubes. - Physical Exam Cardiovascular: Regular rate, Regular Rhythm Abdomen: Soft, Non Tender, Non-Distended Vital Signs Temp Pulse Resp BP Pulse Ox 98.9 F 70 24 H 98/48 L 95 06/10/18 07:00 06/10/18 07:41 06/10/18 07:28 06/10/18 07:00 06/10/18 07:28 Oxygen Flow Rate (L/min) [5] 15 Oxygen Flow Rate (L/min) [4] 15 Oxygen Flow Rate (L/min) [3] 15 Oxygen Flow Rate (L/min) [2] 15 Oxygen Flow Rate (L/min) [1 ( 15 Initial Baseline)] Oxygen Flow Rate (L/min) 2 Oxygen Delivery Method [5] Ambu-Bag Oxygen Delivery Method [4] Ambu-Bag Oxygen Delivery Method [3] Ambu-Bag Oxygen Delivery Method [2] Room Air Oxygen Delivery Method [1 ( Ambu-Bag Initial Baseline)] Oxygen Delivery Method Mechanical Ventilator Weight: 183 lb 3.266 oz Body Mass Index (BMI) 27.1 Finger Stick Blood Glucose 202 Intake and Output for Last 24 Hours 06/08/18 06/09/18 06/10/18 23:59 23:59 23:59 Intake Total 6372.8 / 6372.8 811.7 / 811.7 Output Total 1180 / 1180 510 / 510 Balance 5192.8 / 5192.8 301.7 / 301.7 Microbiology Past 72 Hours 06/06/18 11:00 Urine Culture - Final Urine, Nephrostomy Culture exhibits no growth. 06/03/18 14:55 Blood Culture - Final Blood Culture (Wb) - Left Wrist No growth in 5 days. 06/03/18 15:05 Blood Culture - Final Blood Culture (Wb) - Anticubital Right No growth in 5 days. 06/06/18 12:00 Blood Culture - Preliminary Blood Culture (Wb) - Right Wrist No growth in 48 hours. 06/06/18 11:50 Blood Culture - Preliminary Blood Culture (Wb) - Anticubital Left No growth in 48 hours. 06/02/18 01:24 Blood Culture - Final Blood Culture (Wb) - Anticubital Left No growth in 5 days. 06/02/18 01:10 Blood Culture - Final Blood Culture (Wb) - Right Forearm No growth in 5 days. Laboratory Tests Past 24 Hrs 06/08/18 06/09/18 06/09/18 15:05 03:05 05:30 WBC Corrected WBC RBC Hgb Hct MCV MCH MCHC RDW RDW Differential Plt Count MPV Neut % (Auto) Absolute Neuts (auto) Absolute Lymphs (auto) Total Counted Neutrophils % (Manual) Band Neutrophils % Lymphocytes % (Manual) Monocytes % (Manual) Eosinophils % (Manual) Metamyelocytes % Promyelocytes % Nucleated RBC % Nucleated RBCs/100 WBC Differential Comment Diff Path Review Platelet Estimate Polychromasia Hypochromasia Anisocytosis Microcytosis Schistocytes Absolute Retic PT INR APTT Fibrinogen Sodium Potassium Chloride Carbon Dioxide Anion Gap BUN Creatinine Estim Creat Clear Calc Est GFR (MDRD) Af Amer Est GFR (MDRD) Non-Af BUN/Creatinine Ratio Glucose Calcium Phosphorus 3.8 Magnesium 2.7 H Vitamin B12 1561 H Blood Type AB POSITIVE Antibody Screen NEGATIVE Crossmatch See Detail 06/09/18 06/09/18 06/09/18 05:30 12:30 22:40 WBC 12.9 H 14.4 H Corrected WBC RBC 2.10 L 3.01 L Hgb 6.3 L 8.9 L Hct 20.0 L 27.8 L MCV 95.2 H 92.4 MCH 30.0 29.6 MCHC 31.5 L 32.0 RDW 18.1 H 15.8 H RDW Differential 56.2 H 50.3 H Plt Count 39 L* 44 L* MPV 9.7 8.6 Neut % (Auto) Not Reportable Absolute Neuts (auto) 9.3 H Absolute Lymphs (auto) 2.83 Total Counted 100 Neutrophils % (Manual) 72 H Band Neutrophils % Lymphocytes % (Manual) 22 Monocytes % (Manual) 2 Eosinophils % (Manual) Metamyelocytes % 3 H Promyelocytes % 1 H Nucleated RBC % 34.1 H Nucleated RBCs/100 WBC Differential Comment SCANNED Diff Path Review May foll May foll Platelet Estimate MKD DEC Polychromasia 1+ Hypochromasia 3+ Anisocytosis Microcytosis 1+ Schistocytes RARE Absolute Retic 4.39 PT INR APTT Fibrinogen Sodium Potassium Chloride Carbon Dioxide Anion Gap BUN Creatinine Estim Creat Clear Calc Est GFR (MDRD) Af Amer Est GFR (MDRD) Non-Af BUN/Creatinine Ratio Glucose Calcium Phosphorus Magnesium Vitamin B12 Blood Type Antibody Screen Crossmatch See Detail 06/10/18 06/10/18 06/10/18 03:45 03:45 03:45 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 Corrected WBC 8.5 RBC 3.07 L Hgb 9.2 L Hct 28.5 L MCV 92.8 MCH 30.0 MCHC 32.3 RDW 16.2 H RDW Differential 51.5 H Plt Count 44 L* MPV 11.0 Neut % (Auto) Not Reportable Absolute Neuts (auto) Not Reportable Absolute Lymphs (auto) Total Counted 100 Neutrophils % (Manual) 79 H Band Neutrophils % 4 Lymphocytes % (Manual) 12 L Monocytes % (Manual) 2 Eosinophils % (Manual) 2 Metamyelocytes % 1 Promyelocytes % Nucleated RBC % Nucleated RBCs/100 WBC 23 H Differential Comment Diff Path Review May foll Platelet Estimate MKD DEC Polychromasia Hypochromasia 1+ Anisocytosis 2+ Microcytosis Schistocytes Absolute Retic PT 20.1 H INR 1.7 APTT 37.4 H Fibrinogen 218 Sodium 155 H Potassium 2.9 L Chloride 126 H Carbon Dioxide 14.0 L Anion Gap 15 BUN 89 H Creatinine 2.01 H Estim Creat Clear Calc 27.33 Est GFR (MDRD) Af Amer 42 L Est GFR (MDRD) Non-Af 34 L BUN/Creatinine Ratio 44.3 H Glucose 229 H Calcium 8.1 L Phosphorus Magnesium Vitamin B12 Blood Type Antibody Screen Crossmatch 06/10/18 03:45 WBC Corrected WBC RBC Hgb Hct MCV MCH MCHC RDW RDW Differential Plt Count MPV Neut % (Auto) Absolute Neuts (auto) Absolute Lymphs (auto) Total Counted Neutrophils % (Manual) Band Neutrophils % Lymphocytes % (Manual) Monocytes % (Manual) Eosinophils % (Manual) Metamyelocytes % Promyelocytes % Nucleated RBC % Nucleated RBCs/100 WBC Differential Comment Diff Path Review Platelet Estimate Polychromasia Hypochromasia Anisocytosis Microcytosis Schistocytes Absolute Retic PT INR APTT Fibrinogen Sodium Potassium Chloride Carbon Dioxide Anion Gap BUN Creatinine Estim Creat Clear Calc Est GFR (MDRD) Af Amer Est GFR (MDRD) Non-Af BUN/Creatinine Ratio Glucose Calcium Phosphorus Magnesium 2.6 Vitamin B12 Blood Type Antibody Screen Crossmatch POC Glucose 06/10/18 06/09/18 06/09/18 05:45 23:39 17:19 POC Glucose 217 H 184 H 157 H 06/09/18 13:05 POC Glucose 148 H Medical Necessity - Tobacco Use Smoking Status: Former smoker Assessment/Plan All Active Problems (Last Reviewed 06/05/18 @ 07:40 by Dangelo Alvarado MD) Atrial fibrillation and flutter (Acute) Fever (Acute) Anemia (Acute) Thrombocytopenia (Acute) Bilateral hydronephrosis (Acute) DIC syndrome (Acute) 77-year-old male with GI bleed and DIC 1. Patient had contralateral nephrostomy tube placed. Hopefully this will control the sepsis and may be reversed the DIC. Patient's platelets have held steady and he is receiving an additional unit today. Patient's hemoglobin stabilized as well. He is still having bloody bowel movements. His abdomen is soft, nontender, nondistended. If his coagulation responds I am hoping that his GI bleed will cease on its own. If it does not endoscopy may be indicated but he is in critical condition. Heber Mccurdy MD Pager: [facility] [address] [place] [address], [address] [place] [address] Office:
--- NOTE | 2018-06-10 08:16 | PCM.PN.CARD ---
Subjectve: Patient seen and evaluated. Still intubated. Looks pretty sick. Objective: Vital Signs Temp Pulse Resp BP Pulse Ox 98.9 F 70 24 H 98/48 L 95 06/10/18 07:00 06/10/18 07:41 06/10/18 07:28 06/10/18 07:00 06/10/18 07:28 Oxygen Flow Rate (L/min) [5] 15 Oxygen Flow Rate (L/min) [4] 15 Oxygen Flow Rate (L/min) [3] 15 Oxygen Flow Rate (L/min) [2] 15 Oxygen Flow Rate (L/min) [1 ( 15 Initial Baseline)] Oxygen Flow Rate (L/min) 2 Oxygen Delivery Method [5] Ambu-Bag Oxygen Delivery Method [4] Ambu-Bag Oxygen Delivery Method [3] Ambu-Bag Oxygen Delivery Method [2] Room Air Oxygen Delivery Method [1 ( Ambu-Bag Initial Baseline)] Oxygen Delivery Method Mechanical Ventilator Weight: 183 lb 3.266 oz Body Mass Index (BMI) 27.1 Finger Stick Blood Glucose 202 Intake and Output for Last 24 Hours 06/08/18 06/09/18 06/10/18 23:59 23:59 23:59 Intake Total 6372.8 / 6372.8 811.7 / 811.7 Output Total 1180 / 1180 510 / 510 Balance 5192.8 / 5192.8 301.7 / 301.7 General: Awake, Alert, Oriented x 3, Ill Appearing HEENT: PERRL, EOMI, Sclera Non Icteric Neck: Supple, Good ROM, No Lymph Node Enlargement Lungs: Diminished Matt Bases Cardiovascular: Regular Rhythm, Normal S1, Normal S2, No Murmurs, No Rubs, No Gallops Vascular: No Carotid Bruits, Normal Femoral Pulses, Normal Radial Pulses, Normal Dorsalis Pedal Pulse, Normal Posterior Tibial Pulses Abdomen: Bowel Sounds Present, Soft, Non Tender, No HSM, No Organomegaly Extremities: No Cyanosis, No Clubbing, No edema Musculoskeletal: No Erythema Lymphatic: No Lymph Node Enlargement Neurological: No Focal Motor or Sensory Deficit 06/09/18 03:05: Phosphorus 3.8, Magnesium 2.7 H 06/09/18 12:30: WBC 12.9 H, RBC 2.10 L, Hgb 6.3 L, Hct 20.0 L, MCV 95.2 H, MCH 30.0, MCHC 31.5 L, RDW 18.1 H, RDW Differential 56.2 H, Plt Count 39 L*, MPV 9.7, Neut % (Auto) Not Reportable, Absolute Neuts (auto) 9.3 H, Total Counted 100, Neutrophils % (Manual) 72 H, Lymphocytes % (Manual) 22, Monocytes % (Manual) 2, Metamyelocytes % 3 H, Promyelocytes % 1 H, Nucleated RBC % 34.1 H 06/09/18 22:40: WBC 14.4 H, RBC 3.01 L, Hgb 8.9 L, Hct 27.8 L, MCV 92.4, MCH 29.6, MCHC 32.0, RDW 15.8 H, RDW Differential 50.3 H, Plt Count 44 L*, MPV 8.6 06/10/18 03:45: WBC [employer] 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, Corrected WBC 8.5, RBC 3.07 L, Hgb 9.2 L, Hct 28.5 L, MCV 92.8, MCH 30.0, MCHC 32.3, RDW 16.2 H, RDW Differential 51.5 H, Plt Count 44 L*, MPV 11.0, Neut % (Auto) Not Reportable, Absolute Neuts (auto) Not Reportable, Total Counted 100, Neutrophils % (Manual) 79 H, Band Neutrophils % 4, Lymphocytes % (Manual) 12 L, Monocytes % (Manual) 2, Eosinophils % (Manual) 2, Metamyelocytes % 1 06/10/18 03:45: Sodium 155 H, Potassium 2.9 L, Chloride 126 H, Carbon Dioxide 14.0 L, Anion Gap 15, BUN 89 H, Creatinine 2.01 H, Est GFR (MDRD) Af Amer 42 L, Est GFR (MDRD) Non-Af 34 L, BUN/Creatinine Ratio 44.3 H, Glucose 229 H, Calcium 8.1 L 06/10/18 03:45: PT 20.1 H, INR 1.7, APTT 37.4 H 06/10/18 03:45: Magnesium 2.6 Rhythm: EKG: ECHO: Stress Test: Cardiac Cath: PCI: CT Surgery: Holter monitor: EPS: PPM: CXR: Chest CT Scan: Medical Necessity - Tobacco Use Smoking Status: Former smoker Assessment/Plan 1. Atrial fibrillation/flutter The patient has demonstrated evidence of atrial fibrillation/flutter. He reverted back to atrial fibrillation. Continue to follow him in the ICU. He will continue on the intravenous amiodarone at this time. He will be started on intravenous diltiazem. 2. Status post aortic valve replacement: Bioprosthetic He does have an underlying bioprosthetic aortic valve. There was no comment on any concerns with respect to his transthoracic echocardiogram. However, based upon his underlying clinical scenario with his fevers, concerns of a possible sepsis type syndrome, and if no definitive etiology for his infectious related events, he may need to be considered for further evaluation of his aortic valve for the possibility of infectious endocarditis with a trans esophageal echocardiogram. Transthoracic echocardiogram did not necessarily demonstrate any evidence of endocarditis however. I would like to see his platelets at 50,000 or above before attempting this 3. Hyperlipidemia He can continue medical management as deemed appropriate and tolerated. 4. Hypertension At the present time his blood pressure is good. He has rate limiting medications that may affect blood pressure adversely are on hold. Any other antihypertensive type agents are on hold. Depending upon his course he may need vasopressor agents to support his blood pressure. 5. Renal insufficiency He does have a history of renal insufficiency. It may be exacerbated if he is truly intravascularly depleted based upon his situation at home being found down, lethargic, and with altered mental status. He will continue to receive IV fluids as deemed appropriate by the ICU staff. His renal function will be followed. 6. Anemia He is anemic. Etiology is secondary to his prepyloric ulcer. One also has to be careful going down with a CALI probe so as not to worsen this. Thank you for allowing me to participate in the care of your patient. Please don't hesitate to call if any issues arise
[2018-06-10] MEDS: Chlorhexidine 15 ML PO ×2 (08:24→22:18)
[2018-06-10] MEDS: DULoxetine Hcl 30 MG Capsule PO (08:27)
[2018-06-10 10:01] LABS: Haptoglobin 132 mg/dL (34-200)
[2018-06-10 10:02] LABS: Heparin-Induced Plt Ab 0.138 OD (0.000-0.400)
--- NOTE | 2018-06-10 10:41 | PN.ID_ITS ---
Patient Problems: Active and Suspected Problems (Last Reviewed 06/05/18 @ 07:40 by Dangelo Alvarado MD) Atrial fibrillation and flutter (Acute) Fever (Acute) Anemia (Acute) Thrombocytopenia (Acute) Bilateral hydronephrosis (Acute) DIC syndrome (Acute) Subjective: L neph placed. Temp improved this AM, platelets are better. - Physical Exam General: - - ill appearing, on vent Lungs: Clear to auscultation, Normal air movement Cardiovascular: Regular rate, Regular Rhythm Abdomen: Soft, Non Tender, Non-Distended Skin: No rashes Vital Signs Temp Pulse Resp BP Pulse Ox 99.3 F H 25 L 27 H 105/36 L 100 06/10/18 09:10 06/10/18 09:10 06/10/18 09:10 06/10/18 09:10 06/10/18 09:10 Oxygen Flow Rate (L/min) [5] 15 Oxygen Flow Rate (L/min) [4] 15 Oxygen Flow Rate (L/min) [3] 15 Oxygen Flow Rate (L/min) [2] 15 Oxygen Flow Rate (L/min) [1 ( 15 Initial Baseline)] Oxygen Flow Rate (L/min) 2 Oxygen Delivery Method [5] Ambu-Bag Oxygen Delivery Method [4] Ambu-Bag Oxygen Delivery Method [3] Ambu-Bag Oxygen Delivery Method [2] Room Air Oxygen Delivery Method [1 ( Ambu-Bag Initial Baseline)] Oxygen Delivery Method Mechanical Ventilator Weight: 83.1 kg Body Mass Index (BMI) 27.1 Finger Stick Blood Glucose 202 Intake and Output for Last 24 Hours 06/08/18 06/09/18 06/10/18 23:59 23:59 23:59 Intake Total 6372.8 / 6372.8 961.7 / 961.7 Output Total 1180 / 1180 820 / 820 Balance 5192.8 / 5192.8 141.7 / 141.7 Microbiology Past 72 Hours 06/06/18 11:00 Urine Culture - Final Urine, Nephrostomy Culture exhibits no growth. 06/03/18 14:55 Blood Culture - Final Blood Culture (Wb) - Left Wrist No growth in 5 days. 06/03/18 15:05 Blood Culture - Final Blood Culture (Wb) - Anticubital Right No growth in 5 days. 06/06/18 12:00 Blood Culture - Preliminary Blood Culture (Wb) - Right Wrist No growth in 48 hours. 06/06/18 11:50 Blood Culture - Preliminary Blood Culture (Wb) - Anticubital Left No growth in 48 hours. 06/02/18 01:24 Blood Culture - Final Blood Culture (Wb) - Anticubital Left No growth in 5 days. 06/02/18 01:10 Blood Culture - Final Blood Culture (Wb) - Right Forearm No growth in 5 days. Laboratory Tests Past 24 Hrs 06/07/18 06/09/18 06/09/18 06:50 03:05 05:30 WBC Corrected WBC RBC Hgb Hct MCV MCH MCHC RDW RDW Differential Plt Count MPV Neut % (Auto) Absolute Neuts (auto) Absolute Lymphs (auto) Total Counted Neutrophils % (Manual) Band Neutrophils % Lymphocytes % (Manual) Monocytes % (Manual) Eosinophils % (Manual) Metamyelocytes % Promyelocytes % Nucleated RBC % Nucleated RBCs/100 WBC Differential Comment Diff Path Review Platelet Estimate Polychromasia Hypochromasia Anisocytosis Microcytosis Schistocytes Absolute Retic Haptoglobin 132 PT INR APTT Fibrinogen Sodium Potassium Chloride Carbon Dioxide Anion Gap BUN Creatinine Estim Creat Clear Calc Est GFR (MDRD) Af Amer Est GFR (MDRD) Non-Af BUN/Creatinine Ratio Glucose Calcium Magnesium Heparin-induced Plt Ab 0.138 Blood Type AB POSITIVE Antibody Screen NEGATIVE Crossmatch See Detail 06/09/18 06/09/18 06/09/18 05:30 12:30 22:40 WBC 12.9 H 14.4 H Corrected WBC RBC 2.10 L 3.01 L Hgb 6.3 L 8.9 L Hct 20.0 L 27.8 L MCV 95.2 H 92.4 MCH 30.0 29.6 MCHC 31.5 L 32.0 RDW 18.1 H 15.8 H RDW Differential 56.2 H 50.3 H Plt Count 39 L* 44 L* MPV 9.7 8.6 Neut % (Auto) Not Reportable Absolute Neuts (auto) 9.3 H Absolute Lymphs (auto) 2.83 Total Counted 100 Neutrophils % (Manual) 72 H Band Neutrophils % Lymphocytes % (Manual) 22 Monocytes % (Manual) 2 Eosinophils % (Manual) Metamyelocytes % 3 H Promyelocytes % 1 H Nucleated RBC % 34.1 H Nucleated RBCs/100 WBC Differential Comment SCANNED Diff Path Review May foll May foll Platelet Estimate MKD DEC Polychromasia 1+ Hypochromasia 3+ Anisocytosis Microcytosis 1+ Schistocytes RARE Absolute Retic 4.39 Haptoglobin PT INR APTT Fibrinogen Sodium Potassium Chloride Carbon Dioxide Anion Gap BUN Creatinine Estim Creat Clear Calc Est GFR (MDRD) Af Amer Est GFR (MDRD) Non-Af BUN/Creatinine Ratio Glucose Calcium Magnesium Heparin-induced Plt Ab Blood Type Antibody Screen Crossmatch See Detail 06/10/18 06/10/18 06/10/18 03:45 03:45 03:45 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 Corrected WBC 8.5 RBC 3.07 L Hgb 9.2 L Hct 28.5 L MCV 92.8 MCH 30.0 MCHC 32.3 RDW 16.2 H RDW Differential 51.5 H Plt Count 44 L* MPV 11.0 Neut % (Auto) Not Reportable Absolute Neuts (auto) Not Reportable Absolute Lymphs (auto) Total Counted 100 Neutrophils % (Manual) 79 H Band Neutrophils % 4 Lymphocytes % (Manual) 12 L Monocytes % (Manual) 2 Eosinophils % (Manual) 2 Metamyelocytes % 1 Promyelocytes % Nucleated RBC % Nucleated RBCs/100 WBC 23 H Differential Comment Diff Path Review May foll Platelet Estimate MKD DEC Polychromasia Hypochromasia 1+ Anisocytosis 2+ Microcytosis Schistocytes Absolute Retic Haptoglobin PT 20.1 H INR 1.7 APTT 37.4 H Fibrinogen 218 Sodium 155 H Potassium 2.9 L Chloride 126 H Carbon Dioxide 14.0 L Anion Gap 15 BUN 89 H Creatinine 2.01 H Estim Creat Clear Calc 27.33 Est GFR (MDRD) Af Amer 42 L Est GFR (MDRD) Non-Af 34 L BUN/Creatinine Ratio 44.3 H Glucose 229 H Calcium 8.1 L Magnesium Heparin-induced Plt Ab Blood Type Antibody Screen Crossmatch 06/10/18 03:45 WBC Corrected WBC RBC Hgb Hct MCV MCH MCHC RDW RDW Differential Plt Count MPV Neut % (Auto) Absolute Neuts (auto) Absolute Lymphs (auto) Total Counted Neutrophils % (Manual) Band Neutrophils % Lymphocytes % (Manual) Monocytes % (Manual) Eosinophils % (Manual) Metamyelocytes % Promyelocytes % Nucleated RBC % Nucleated RBCs/100 WBC Differential Comment Diff Path Review Platelet Estimate Polychromasia Hypochromasia Anisocytosis Microcytosis Schistocytes Absolute Retic Haptoglobin PT INR APTT Fibrinogen Sodium Potassium Chloride Carbon Dioxide Anion Gap BUN Creatinine Estim Creat Clear Calc Est GFR (MDRD) Af Amer Est GFR (MDRD) Non-Af BUN/Creatinine Ratio Glucose Calcium Magnesium 2.6 Heparin-induced Plt Ab Blood Type Antibody Screen Crossmatch POC Glucose 06/10/18 06/09/18 06/09/18 05:45 23:39 17:19 POC Glucose 217 H 184 H 157 H 06/09/18 13:05 POC Glucose 148 H Medical Necessity - Tobacco Use Smoking Status: Former smoker Route of nutrition/ use of supplements: [] Nutritional Intake: [] IV Site: [] [place] Catheter: [] - Assessment/Plan Antibiotics: [] Assessment/Plan: [] Active and Suspected Problems (Last Updated 06/02/18 @ 03:12 by Sally fitzgerald MD) Atrial fibrillation and flutter (Acute) Fever (Acute) Anemia (Acute) Thrombocytopenia (Acute) Fever - at this point seems likely due to 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 UA with mild pyuria, Ucx with only small growth of enterococcus. On vanc/zosyn. Bcx neg so far. Dr. Alvarado following. R neph tube placed 06/05, L placed 06/09. Wbc improved, temp better this AM. Will cx L neph tube drainage. Stop vanc. Continue zosyn. CALI pending. Will follow
[2018-06-10 11:35] LABS: Bedside Glucose 280 mg/dL (70-110)
[2018-06-10 13:08] LABS: Pathologist Review Reviewed
[2018-06-10 13:13] LABS: Pathologist Review Reviewed
[2018-06-10 13:13] LABS: Pathologist Review Reviewed
[2018-06-10 13:18] LABS: Pathologist Review Reviewed
[2018-06-10 13:20] LABS: Pathologist Review Reviewed
[2018-06-10 13:26] LABS: Pathologist Review Reviewed
[2018-06-10 13:46] LABS: Pathologist Review Reviewed
[2018-06-10 13:46] LABS: Pathologist Review Reviewed
[2018-06-10 14:39] LABS: Hematocrit 23.3 % (40-54); Hemoglobin 7.5 g/dl (13.0-16.5); Mean Corp Hgb Conc 32.2 g/gl (32-36); Mean Corpuscular Hgb 29.8 pg (27.0-32.0); Mean Corpuscular Volume 92.5 fL (80-94); Mean Platelet Vol. 10.2 fl (6.2-12.0); Platelet Count 41 K/mm3 (150-450); RBC Distribution Width CV 16.7 % (11.6-14.6); RBC Distribution Width SD 53.2 fl (35.1-43.9); Red Blood Count 2.52 M/mm3 (4.6-6.2); White Blood Count 9.8 K/mm3 (4.4-11.0)
[2018-06-10 14:40] LABS: Scan Indicated on CBC? Y/N YES- FLAGS NOTED
[2018-06-10] MEDS: Vital AF 1.2 Cal Liquid 1,000 ML 50 ML GT (16:23)
[2018-06-10 16:41] LABS: Bedside Glucose 210 mg/dL (70-110)
[2018-06-10] MEDS: Atorvastatin Calcium 10 MG Tablet GT (22:17)
[2018-06-10] MEDS: Acetaminophen 650 MG/20 ML UDC GT (22:17)
[2018-06-10] MEDS: 0.9% NaCl Peripheral Flush Adult/Peds IV (22:18)
[2018-06-10 22:33] LABS: Hematocrit 28.7 % (40-54); Hemoglobin 9.2 g/dl (13.0-16.5)
[2018-06-11] VITALS (55 sets, daily range): BP systolic 110–152; BP diastolic 46–94; PULSE 59–78; RESP 14–39; TEMP 37.6–38.7; O2SAT 93–100
[2018-06-11] MEDS: Insulin Lispro 100 UNIT/ML INSULN.PEN SC ×4 (00:28→23:37)
[2018-06-11 00:35] LABS: Bedside Glucose 226 mg/dL (70-110)
[2018-06-11] MEDS: 0.9% NaCl IVPB Med Flush (250 mL) 15 ML IV (04:18)
[2018-06-11] MEDS: fentaNYL drip 100 ML 2.5 MCG IV ×2 (04:18→23:36)
[2018-06-11 04:32] LABS: Anion Gap 11 (5-15); BUN 75 mg/dL (7-18); BUN/Creat Ratio 44.9 RATIO (10-20); Calcium,Total 8.3 mg/dL (8.5-10.1); Chloride 126 mmol/L (98-107); Creatinine, Serum 1.67 mg/dL (0.70-1.30); EST Glomerular Filtration Rate 42 mL/min (>60); Est Glom Filt Rate - Afr Amer 51 mL/min (>60); Glucose 248 mg/dL (74-106); Potassium 2.9 mmol/L (3.5-5.1); Sodium Level 156 mmol/L (136-145)
[2018-06-11 04:37] LABS: Absolute Lymphocyte Count 0.95 X10^3/ul (0.83-4.51); Absolute Neutrophil Count 6.9 X10^3/uL (2.0-7.7); Basophil# 0.05 X10^3/uL; Basophil% 0.6 % (0-1); Eosinophil# 0.07 X10^3/uL; Eosinophils% 0.8 % (0-5); Hematocrit 30.2 % (40-54); Hemoglobin 9.7 g/dl (13.0-16.5); Lymphocyte # 0.95 X10^3/ul (4.0); Lymphocyte % 11.4 % (19-41); Mean Corp Hgb Conc 32.1 g/gl (32-36); Mean Corpuscular Hgb 29.8 pg (27.0-32.0); Mean Corpuscular Volume 92.6 fL (80-94); Monocyte# 0.21 X10^3/uL; Monocyte% 2.5 % (0-10); Neutrophil # 6.86 X10^3/uL (2.7-7.7); Neutrophil % 82.7 % (47-70); RBC Distribution Width CV 16.6 % (11.6-14.6); RBC Distribution Width SD 52.7 fl (35.1-43.9); Red Blood Count 3.26 M/mm3 (4.6-6.2); White Blood Count 8.3 K/mm3 (4.4-11.0)
[2018-06-11 04:38] LABS: Differential Indicated SCAN CRITERIA MET; POSITIVE COUNT YES; POSITIVE DIFFERENTIAL NO; POSITIVE MORPHOLOGY YES
[2018-06-11 04:39] LABS: Platelet Count 30 K/mm3 (150-450)
[2018-06-11 05:01] LABS: Differential Comment SCAN
[2018-06-11 05:02] LABS: Anisocytosis 1+; Hypochromasia 1+; Microcytosis 1+; Platelet Estimate MKD DEC (ADEQ); Platelet Morphology LARGE; Polychromasia 1+
[2018-06-11] MEDS: Vital AF 1.2 Cal Liquid 1,000 ML 50 ML GT (05:19)
[2018-06-11] MEDS: Sucralfate 1 GM Tablet GT ×3 (05:35→21:08)
[2018-06-11 05:51] LABS: Bedside Glucose 230 mg/dL (70-110)
--- NOTE | 2018-06-11 06:27 | PCM.PN.INT ---
Subjective: The patient was seen and examined at the bedside this morning. Events from the last 24 hours have been reviewed. The patient remains febrile this morning. T-max overnight was noted to be 38.4 ?C. Yesterday, the patient received FFP, platelets and packed red blood cells. Hemoglobin this morning is stable at 9.7 g/dL. However, the patient's platelet count has decreased to 30,000. Potassium is again low at 2.9. Creatinine is improving. Overnight, the patient did have to be started on levophed to maintain hemodynamic stability. He is currently infusing at 10 mcg/min. He was noted by the nursing staff to have a large dark red bowel movement earlier this morning. The patient failed his spontaneous breathing trial, as he became profoundly tachypneic. The patient is now documented to be overall net +20 L for the admission. Objective: The patient's most recent lab work, culture data and imaging studies have all been personally reviewed. Surface echocardiogram revealed normal LV size and function with an ejection fraction of 65% and stage I diastolic dysfunction. Pulmonary artery systolic pressure was estimated to be 40 mmHg. VQ scan completed on June 02 was noted to be a low quality VQ scan, but was reported to be most consistent with low probability for PE. CT chest dated June 02 revealed small bilateral pleural effusions without focal infiltrates. CT abdomen revealed bilateral hydronephrosis along with bilateral hydroureter. Urine culture dated June 02 and June 03 both revealed Enterococcus faecalis. General: - - Remains intubated and mechanically ventilated. Appears ill and fatigued in appearance. HEENT: Atraumatic, PERRLA, Normocephalic Oral: Dry Mucosa, - - Endotracheal and OG tubes remain in place Neck: Supple, No Nodes, Trachea Midline Lungs: No rhonchi, No wheeze, No rales, Diminished, Tachypneic Cardiovascular: Regular rate, Regular Rhythm, Normal S1, Normal S2, Murmur, - - Currently in NSR on telemetry Abdomen: Bowel Sounds Present, Soft, Non Tender, - - Bilateral percutaneous nephrostomy tubes in place. Extremities: - - Diffuse anasarca with mottling of the lower extremities and significant pitting edema. Skin: - - No significant change from previous. Musculoskeletal: Cachexia, - - + Temporal Wasting Lymphatic: No Cervical, Supraclavicular, or Inguinal Adenopathy Neurological: Neuro grossly intact Psych/Mental Status: Flat Affect, Depressed Vital Signs Temp Pulse Resp BP Pulse Ox 38.0 C H 70 30 H 120/48 L 100 06/11/18 02:00 06/11/18 05:40 06/11/18 05:40 06/11/18 03:00 06/11/18 05:40 Oxygen Flow Rate (L/min) [5] 15 Oxygen Flow Rate (L/min) [4] 15 Oxygen Flow Rate (L/min) [3] 15 Oxygen Flow Rate (L/min) [2] 15 Oxygen Flow Rate (L/min) [1 ( 15 Initial Baseline)] Oxygen Flow Rate (L/min) 2 Oxygen Delivery Method [5] Ambu-Bag Oxygen Delivery Method [4] Ambu-Bag Oxygen Delivery Method [3] Ambu-Bag Oxygen Delivery Method [2] Room Air Oxygen Delivery Method [1 ( Ambu-Bag Initial Baseline)] Oxygen Delivery Method Mechanical Ventilator Weight: 187 lb 13.341 oz Body Mass Index (BMI) 27.1 Finger Stick Blood Glucose 202 Intake and Output for Last 24 Hours 06/09/18 06/10/18 06/11/18 23:59 23:59 23:59 Intake Total 6372.8 / 6372.8 4836.7 / 4836.7 909 / 909 Output Total 1180 / 1180 1955 / 1955 500 / 500 Balance 5192.8 / 5192.8 2881.7 / 2881.7 409 / 409 Labs (Last 48 Hours) 06/06/18 06/06/18 06/07/18 07:15 14:00 03:50 WBC Corrected WBC RBC Hgb Hct MCV MCH MCHC RDW RDW Differential Plt Count MPV Immature Gran % (Auto) Neut % (Auto) Lymph % (Auto) Lipscomb % (Auto) Eos % (Auto) Baso % (Auto) Absolute Neuts (auto) Absolute Lymphs (auto) Total Counted Neutrophils % (Manual) Band Neutrophils % Lymphocytes % (Manual) Monocytes % (Manual) Eosinophils % (Manual) Metamyelocytes % Promyelocytes % Nucleated RBC % Nucleated RBCs/100 WBC Differential Comment Diff Path Review Reviewed Reviewed Platelet Estimate Plt Morphology Comment Polychromasia Hypochromasia Anisocytosis Microcytosis Schistocytes Absolute Retic Haptoglobin PT INR APTT Fibrinogen Sodium Potassium Chloride Carbon Dioxide Anion Gap BUN Creatinine Estim Creat Clear Calc Est GFR (MDRD) Af Amer Est GFR (MDRD) Non-Af BUN/Creatinine Ratio Glucose Calcium Phosphorus Magnesium Vitamin B12 Heparin-induced Plt Ab POC Glucose Blood Type Antibody Screen Crossmatch See Detail 06/07/18 06/07/18 06/08/18 06:50 14:40 04:45 WBC Corrected WBC RBC Hgb Hct MCV MCH MCHC RDW RDW Differential Plt Count MPV Immature Gran % (Auto) Neut % (Auto) Lymph % (Auto) Lipscomb % (Auto) Eos % (Auto) Baso % (Auto) Absolute Neuts (auto) Absolute Lymphs (auto) Total Counted Neutrophils % (Manual) Band Neutrophils % Lymphocytes % (Manual) Monocytes % (Manual) Eosinophils % (Manual) Metamyelocytes % Promyelocytes % Nucleated RBC % Nucleated RBCs/100 WBC Differential Comment Diff Path Review Reviewed Reviewed Platelet Estimate Plt Morphology Comment Polychromasia Hypochromasia Anisocytosis Microcytosis Schistocytes Absolute Retic Haptoglobin PT INR APTT Fibrinogen Sodium Potassium Chloride Carbon Dioxide Anion Gap BUN Creatinine Estim Creat Clear Calc Est GFR (MDRD) Af Amer Est GFR (MDRD) Non-Af BUN/Creatinine Ratio Glucose Calcium Phosphorus Magnesium Vitamin B12 Heparin-induced Plt Ab 0.138 POC Glucose Blood Type Antibody Screen Crossmatch 06/08/18 06/08/18 06/09/18 15:05 15:05 03:05 WBC Corrected WBC RBC Hgb Hct MCV MCH MCHC RDW RDW Differential Plt Count MPV Immature Gran % (Auto) Neut % (Auto) Lymph % (Auto) Lipscomb % (Auto) Eos % (Auto) Baso % (Auto) Absolute Neuts (auto) Absolute Lymphs (auto) Total Counted Neutrophils % (Manual) Band Neutrophils % Lymphocytes % (Manual) Monocytes % (Manual) Eosinophils % (Manual) Metamyelocytes % Promyelocytes % Nucleated RBC % Nucleated RBCs/100 WBC Differential Comment Diff Path Review Reviewed Platelet Estimate Plt Morphology Comment Polychromasia Hypochromasia Anisocytosis Microcytosis Schistocytes Absolute Retic Haptoglobin 132 PT INR APTT Fibrinogen Sodium Potassium Chloride Carbon Dioxide Anion Gap BUN Creatinine Estim Creat Clear Calc Est GFR (MDRD) Af Amer Est GFR (MDRD) Non-Af BUN/Creatinine Ratio Glucose Calcium Phosphorus Magnesium Vitamin B12 1561 H Heparin-induced Plt Ab POC Glucose Blood Type Antibody Screen Crossmatch 06/09/18 06/09/1806/09/19 03:05 03:05 05:30 WBC Corrected WBC RBC Hgb Hct MCV MCH MCHC RDW RDW Differential Plt Count MPV Immature Gran % (Auto) Neut % (Auto) Lymph % (Auto) Lipscomb % (Auto) Eos % (Auto) Baso % (Auto) Absolute Neuts (auto) Absolute Lymphs (auto) Total Counted Neutrophils % (Manual) Band Neutrophils % Lymphocytes % (Manual) Monocytes % (Manual) Eosinophils % (Manual) Metamyelocytes % Promyelocytes % Nucleated RBC % Nucleated RBCs/100 WBC Differential Comment Diff Path Review Reviewed Platelet Estimate Plt Morphology Comment Polychromasia Hypochromasia Anisocytosis Microcytosis Schistocytes Absolute Retic Haptoglobin PT INR APTT Fibrinogen Sodium Potassium Chloride Carbon Dioxide Anion Gap BUN Creatinine Estim Creat Clear Calc Est GFR (MDRD) Af Amer Est GFR (MDRD) Non-Af BUN/Creatinine Ratio Glucose Calcium Phosphorus 3.8 Magnesium 2.7 H Vitamin B12 Heparin-induced Plt Ab POC Glucose Blood Type AB POSITIVE Antibody Screen NEGATIVE Crossmatch See Detail 06/09/18 06/09/18 06/09/18 05:30 05:30 06:09 WBC Corrected WBC RBC Hgb Hct MCV MCH MCHC RDW RDW Differential Plt Count MPV Immature Gran % (Auto) Neut % (Auto) Lymph % (Auto) Lipscomb % (Auto) Eos % (Auto) Baso % (Auto) Absolute Neuts (auto) Absolute Lymphs (auto) Total Counted Neutrophils % (Manual) Band Neutrophils % Lymphocytes % (Manual) Monocytes % (Manual) Eosinophils % (Manual) Metamyelocytes % Promyelocytes % Nucleated RBC % Nucleated RBCs/100 WBC Differential Comment Diff Path Review Platelet Estimate Plt Morphology Comment Polychromasia Hypochromasia Anisocytosis Microcytosis Schistocytes Absolute Retic Haptoglobin PT INR APTT Fibrinogen Sodium Potassium Chloride Carbon Dioxide Anion Gap BUN Creatinine Estim Creat Clear Calc Est GFR (MDRD) Af Amer Est GFR (MDRD) Non-Af BUN/Creatinine Ratio Glucose Calcium Phosphorus Magnesium Vitamin B12 Heparin-induced Plt Ab POC Glucose 165 H Blood Type Antibody Screen Crossmatch See Detail See Detail 06/09/18 06/09/18 06/09/18 12:30 13:05 17:19 WBC 12.9 H Corrected WBC RBC 2.10 L Hgb 6.3 L Hct 20.0 L MCV 95.2 H MCH 30.0 MCHC 31.5 L RDW 18.1 H RDW Differential 56.2 H Plt Count 39 L* MPV 9.7 Immature Gran % (Auto) Neut % (Auto) Not Reportable Lymph % (Auto) Lipscomb % (Auto) Eos % (Auto) Baso % (Auto) Absolute Neuts (auto) 9.3 H Absolute Lymphs (auto) 2.83 Total Counted 100 Neutrophils % (Manual) 72 H Band Neutrophils % Lymphocytes % (Manual) 22 Monocytes % (Manual) 2 Eosinophils % (Manual) Metamyelocytes % 3 H Promyelocytes % 1 H Nucleated RBC % 34.1 H Nucleated RBCs/100 WBC Differential Comment Diff Path Review Reviewed Platelet Estimate MKD DEC Plt Morphology Comment Polychromasia 1+ Hypochromasia 3+ Anisocytosis Microcytosis 1+ Schistocytes RARE Absolute Retic 4.39 Haptoglobin PT INR APTT Fibrinogen Sodium Potassium Chloride Carbon Dioxide Anion Gap BUN Creatinine Estim Creat Clear Calc Est GFR (MDRD) Af Amer Est GFR (MDRD) Non-Af BUN/Creatinine Ratio Glucose Calcium Phosphorus Magnesium Vitamin B12 Heparin-induced Plt Ab POC Glucose 148 H 157 H Blood Type Antibody Screen Crossmatch 06/09/18 06/09/18 06/10/18 22:40 23:39 03:45 WBC 14.4 H [employer] Corrected WBC 8.5 RBC 3.01 L 3.07 L Hgb 8.9 L 9.2 L Hct 27.8 L 28.5 L MCV 92.4 92.8 MCH 29.6 30.0 MCHC 32.0 32.3 RDW 15.8 H 16.2 H RDW Differential 50.3 H 51.5 H Plt Count 44 L* 44 L* MPV 8.6 11.0 Immature Gran % (Auto) Neut % (Auto) Not Reportable Lymph % (Auto) Lipscomb % (Auto) Eos % (Auto) Baso % (Auto) Absolute Neuts (auto) Not Reportable Absolute Lymphs (auto) Total Counted 100 Neutrophils % (Manual) 79 H Band Neutrophils % 4 Lymphocytes % (Manual) 12 L Monocytes % (Manual) 2 Eosinophils % (Manual) 2 Metamyelocytes % 1 Promyelocytes % Nucleated RBC % Nucleated RBCs/100 WBC 23 H Differential Comment SCANNED Diff Path Review Reviewed Reviewed Platelet Estimate MKD DEC Plt Morphology Comment Polychromasia Hypochromasia 1+ Anisocytosis 2+ Microcytosis Schistocytes Absolute Retic Haptoglobin PT INR APTT Fibrinogen Sodium Potassium Chloride Carbon Dioxide Anion Gap BUN Creatinine Estim Creat Clear Calc Est GFR (MDRD) Af Amer Est GFR (MDRD) Non-Af BUN/Creatinine Ratio Glucose Calcium Phosphorus Magnesium Vitamin B12 Heparin-induced Plt Ab POC Glucose 184 H Blood Type Antibody Screen Crossmatch 06/10/18 06/10/18 06/10/18 03:45 03:45 03:45 WBC Corrected WBC RBC Hgb Hct MCV MCH MCHC RDW RDW Differential Plt Count MPV Immature Gran % (Auto) Neut % (Auto) Lymph % (Auto) Lipscomb % (Auto) Eos % (Auto) Baso % (Auto) Absolute Neuts (auto) Absolute Lymphs (auto) Total Counted Neutrophils % (Manual) Band Neutrophils % Lymphocytes % (Manual) Monocytes % (Manual) Eosinophils % (Manual) Metamyelocytes % Promyelocytes % Nucleated RBC % Nucleated RBCs/100 WBC Differential Comment Diff Path Review Platelet Estimate Plt Morphology Comment Polychromasia Hypochromasia Anisocytosis Microcytosis Schistocytes Absolute Retic Haptoglobin PT 20.1 H INR 1.7 APTT 37.4 H Fibrinogen 218 Sodium 155 H Potassium 2.9 L Chloride 126 H Carbon Dioxide 14.0 L Anion Gap 15 BUN 89 H Creatinine 2.01 H Estim Creat Clear Calc 27.33 Est GFR (MDRD) Af Amer 42 L Est GFR (MDRD) Non-Af 34 L BUN/Creatinine Ratio 44.3 H Glucose 229 H Calcium 8.1 L Phosphorus Magnesium 2.6 Vitamin B12 Heparin-induced Plt Ab POC Glucose Blood Type Antibody Screen Crossmatch 06/10/18 06/10/18 06/10/18 05:45 11:23 14:20 WBC 9.8 Corrected WBC RBC 2.52 L Hgb 7.5 L Hct 23.3 L MCV 92.5 MCH 29.8 MCHC 32.2 RDW 16.7 H RDW Differential 53.2 H Plt Count 41 L* MPV 10.2 Immature Gran % (Auto) Neut % (Auto) Lymph % (Auto) Lipscomb % (Auto) Eos % (Auto) Baso % (Auto) Absolute Neuts (auto) Absolute Lymphs (auto) Total Counted Neutrophils % (Manual) Band Neutrophils % Lymphocytes % (Manual) Monocytes % (Manual) Eosinophils % (Manual) Metamyelocytes % Promyelocytes % Nucleated RBC % Nucleated RBCs/100 WBC Differential Comment Diff Path Review May foll Platelet Estimate Plt Morphology Comment Polychromasia Hypochromasia Anisocytosis Microcytosis Schistocytes Absolute Retic Haptoglobin PT INR APTT Fibrinogen Sodium Potassium Chloride Carbon Dioxide Anion Gap BUN Creatinine Estim Creat Clear Calc Est GFR (MDRD) Af Amer Est GFR (MDRD) Non-Af BUN/Creatinine Ratio Glucose Calcium Phosphorus Magnesium Vitamin B12 Heparin-induced Plt Ab POC Glucose 217 H 280 H Blood Type Antibody Screen Crossmatch 06/10/18 06/10/18 06/11/18 16:32 22:20 00:27 WBC Corrected WBC RBC Hgb 9.2 L Hct 28.7 L MCV MCH MCHC RDW RDW Differential Plt Count MPV Immature Gran % (Auto) Neut % (Auto) Lymph % (Auto) Lipscomb % (Auto) Eos % (Auto) Baso % (Auto) Absolute Neuts (auto) Absolute Lymphs (auto) Total Counted Neutrophils % (Manual) Band Neutrophils % Lymphocytes % (Manual) Monocytes % (Manual) Eosinophils % (Manual) Metamyelocytes % Promyelocytes % Nucleated RBC % Nucleated RBCs/100 WBC Differential Comment Diff Path Review Platelet Estimate Plt Morphology Comment Polychromasia Hypochromasia Anisocytosis Microcytosis Schistocytes Absolute Retic Haptoglobin PT INR APTT Fibrinogen Sodium Potassium Chloride Carbon Dioxide Anion Gap BUN Creatinine Estim Creat Clear Calc Est GFR (MDRD) Af Amer Est GFR (MDRD) Non-Af BUN/Creatinine Ratio Glucose Calcium Phosphorus Magnesium Vitamin B12 Heparin-induced Plt Ab POC Glucose 210 H 226 H Blood Type Antibody Screen Crossmatch 06/11/18 06/11/18 06/11/18 04:10 04:10 05:37 WBC 8.3 Corrected WBC RBC 3.26 L Hgb 9.7 L Hct 30.2 L MCV 92.6 MCH 29.8 MCHC 32.1 RDW 16.6 H RDW Differential 52.7 H Plt Count 30 L* MPV Immature Gran % (Auto) 2.000 H Neut % (Auto) 82.7 H Lymph % (Auto) 11.4 L Lipscomb % (Auto) 2.5 Eos % (Auto) 0.8 Baso % (Auto) 0.6 Absolute Neuts (auto) 6.9 Absolute Lymphs (auto) 0.95 Total Counted Not Reportable Neutrophils % (Manual) Band Neutrophils % Lymphocytes % (Manual) Monocytes % (Manual) Eosinophils % (Manual) Metamyelocytes % Promyelocytes % Nucleated RBC % Nucleated RBCs/100 WBC Differential Comment SCAN Diff Path Review May foll Platelet Estimate MKD DEC Plt Morphology Comment LARGE Polychromasia 1+ Hypochromasia 1+ Anisocytosis 1+ Microcytosis 1+ Schistocytes Absolute Retic Haptoglobin PT INR APTT Fibrinogen Sodium 156 H Potassium 2.9 L Chloride 126 H Carbon Dioxide 19.0 L Anion Gap 11 BUN 75 H Creatinine 1.67 H Estim Creat Clear Calc 32.90 Est GFR (MDRD) Af Amer 51 L Est GFR (MDRD) Non-Af 42 L BUN/Creatinine Ratio 44.9 H Glucose 248 H Calcium 8.3 L Phosphorus Magnesium Vitamin B12 Heparin-induced Plt Ab POC Glucose 230 H Blood Type Antibody Screen Crossmatch Microbiology 06/06/18 11:00 Urine, Nephrostomy Urine Culture - Final Culture exhibits no growth. 06/03/18 14:55 Blood Culture (Wb) - Left Wrist Blood Culture - Final No growth in 5 days. 06/03/18 15:05 Blood Culture (Wb) - Anticubital Right Blood Culture - Final No growth in 5 days. Clinical Impression(s) from Imaging Studies Brain CT 06/02/18 01:25 IMPRESSION: No acute findings. Individualized dose optimization techniques were used for this CT. at 0159 Reported and signed by: Geoff Joaquin MD Electronically Signed: Geoff Joaquin, at 1:58 EST Tel , Service support , Cervical Spine CT 06/02/18 01:25 IMPRESSION: No fracture or dislocation of the cervical spine. Individualized dose optimization techniques were used for this CT. at 0206 Reported and signed by: Geoff Joaquin MD Electronically Signed: Geoff Joaquin, at 2:05 EST Tel , Service support , Chest X-Ray 06/02/18 01:35 IMPRESSION: Low lung volumes with resultant hypoventilatory changes. No definite pneumonia or edema. Interval sternotomy probably for heart valve replacement. at 0154 Reported and signed by: Geoff Joaquin MD Electronically Signed: Geoff Joaquin, at 1:53 EST Tel , Service support , Lung Scan-VQ NM 06/02/18 13:55 IMPRESSION: Low quality VQ scan, most consistent with low probability of pulmonary embolism. Electronically Signed: Kenny Greene MD at 16:31 EST , Service support , Chest X-Ray 06/02/18 14:28 IMPRESSION: Moderate right pleural effusion with overlying atelectasis. Electronically Signed: Juan Ruiz, at 15:40 EST Tel , Service support , Chest CT 06/02/18 21:14 IMPRESSION: Small bilateral pleural effusions with overlying atelectasis. Sclerotic osseous lesions which are suspicious for metastasis. Electronically Signed: Juan Ruiz, at 22:14 EST Tel , Service support , Chest X-Ray 06/02/18 22:26 IMPRESSION: Mild left basilar atelectasis status post endotracheal tube placement Electronically Signed: Norbert Snyder MD at 23:18 EST , Service support , Abdomen CT 06/04/18 12:33 IMPRESSION: Bilateral hydronephrosis right greater than left with bilateral hydroureter. Diffusely thickened bladder wall. Electronically Signed: Javier Unger, at 15:28 EST , Service support , Nephrostomy Tube Change 06/05/18 07:41 IMPRESSION: 1. The percutaneous right nephrostomy catheter is in good position with the pigtail portion located in the right renal pelvis. 2. The conscious sedation protocol was followed. Electronically Signed: Javier Unger, at 14:33 EST , Service support , Nephrostomy Tube Change 06/09/18 08:39 IMPRESSION: 1. The percutaneous left nephrostomy catheter is in good position with the pigtail portion located in the left renal pelvis. Electronically Signed: Javier Peterdennisaaron, at 8:16 EDT , Service support , Medical Necessity - Tobacco Use Smoking Status: Former smoker Assessment/Plan All Active Problems (Last Reviewed 06/05/18 @ 07:40 by Dangelo Alvarado MD) Atrial fibrillation and flutter (Acute) Fever (Acute) Anemia (Acute) Thrombocytopenia (Acute) Bilateral hydronephrosis (Acute) DIC syndrome (Acute) RECOMMENDATIONS: 1. Transfuse additional platelets this morning. 2. Additional potassium repletion as ordered. 3. Provide D5W bolus given climbing sodium and chloride. 4. Obtain repeat plain film CXR 5. Continue Levophed in an attempt to maintain a mean arterial pressure at or above 65 mmHg. 6. Continue tube feeds and free water flushes. 7. Continue rate/rhythm control therapy per cardiology recommendations 8. Continue twice daily PPI therapy. 9. Continue antibiotics per ID recommendations. 10. We will add Precedex to the patient's medication regimen, in hopes that this will help facilitate weaning from mechanical ventilation. IMPRESSIONS: 1. Acute hypoxemic respiratory failure The exact etiology for the patient's clinical decompensation is unclear. However, the patient was noted to be tachycardic at the time when he was initially beginning to decompensate. It is unclear whether this was atrial fibrillation or a sinus tachycardia. Given that the patient has paroxysmal atrial fibrillation and underlying valvular heart disease, it is possible that his decompensation may have been heart rate related. In addition, increased metabolic demands from the patient's sepsis and fevers also likely contributed. He is chronically anticoagulated with Eliquis on an outpatient basis. The patient's CT chest only revealed evidence of small bilateral pleural effusions without focal infiltrates. His FiO2 was able to be quickly weaned. I would hold off on attempts to extubate the patient until his transesophageal echocardiogram has been completed on Saturday. At this time, the patient is severely volume overloaded. He is going to require volume optimization, likely with IV diuretics, which may be limited by his current renal function and hemodynamic status. 2. Severe sepsis with evidence of bilateral hydronephrosis/hydroureter The patient appears to be septic from a urinary source of infection. CT abdomen did reveal evidence of bilateral hydronephrosis, for which the patient underwent bilateral percutaneous nephrostomy tube placement. Antibiotics will be continued per infectious diseases recommendations. If there is no improvement in the patient's overall clinical state, consideration will be given to obtaining a transesophageal echocardiogram. 3. Paroxysmal atrial fibrillation with RVR/history of aortic valve replacement Defer management of rate/rhythm control strategy to cardiology. 4. Anemia secondary to upper GI hemorrhage/thrombocytopenia secondary to DIC The patient does have known normocytic anemia, which appears to have worsened over the course of this hospital stay. The patient did require eventual transfusion of packed red blood cells. Upper endoscopy performed at the bedside did reveal evidence of GI ulcers. However, there was no active bleeding. This will require the permanent discontinuation of the patient's systemic anticoagulation. He will be continued on twice daily PPI therapy and monitored for any ongoing blood loss. The patient has also developed worsening thrombocytopenia, which following workup, appears to be related to DIC, likely secondary to the patient's sepsis syndrome. The patient will receive additional platelets this morning, due to ongoing thrombocytopenia. 5. Hypokalemia Additional electrolyte repletion as ordered. Given the patient's underlying arrhythmia, attempt to maintain a potassium greater than 4 and magnesium greater than 2. We will plan to start scheduled daily potassium repletion as well. 6. Metastatic prostate cancer/anemia/chronic kidney disease/hypertension/hyperlipidemia/depression/generalized deconditioning and debility Complicates care, management, recovery and prognosis. Likely okay to continue home medications. Physical therapy to once again work with patient once medically stabilized. TIME: 45 minutes of critical care time, independent of procedures, was spent addressing the patient's acute hypoxemic respiratory failure, severe sepsis, paroxysmal atrial fibrillation with a rapid ventricular rate, metastatic prostate cancer, anemia, upper gastrointestinal bleed, DIC, review of all data and collaboration with the care team. ([id number]) Code Visit [id number]: [id number] Critical care first hour
--- NOTE | 2018-06-11 06:33 | PN_ITS ---
Subjective: The patient was seen and examined at the bedside this morning. Events from the last 24 hours have been reviewed. The patient remains febrile this morning. T- max overnight was noted to be 38.4 ?C. Yesterday, the patient received FFP, platelets and packed red blood cells. Hemoglobin this morning is stable at 9.7 g/dL. However, the patient's platelet count has decreased to 30,000. Potassium is again low at 2.9. Creatinine is improving. Overnight, the patient did have to be started on levophed to maintain hemodynamic stability. He is currently infusing at 10 mcg/min. He was noted by the nursing staff to have a large dark red bowel movement earlier this morning. The patient failed his spontaneous breathing trial, as he became profoundly tachypneic. The patient is now documented to be overall net +20 L for the admission. Objective: The patient's most recent lab work, culture data and imaging studies have all been personally reviewed. Surface echocardiogram revealed normal LV size and function with an ejection fraction of 65% and stage I diastolic dysfunction. Pulmonary artery systolic pressure was estimated to be 40 mmHg. VQ scan completed on June 02 was noted to be a low quality VQ scan, but was reported to be most consistent with low probability for PE. CT chest dated June 02 revealed small bilateral pleural effusions without focal infiltrates. CT abdomen revealed bilateral hydronephrosis along with bilateral hydroureter. Urine culture dated June 02 and June 03 both revealed Enterococcus faecalis. General: - - Remains intubated and mechanically ventilated. Appears ill and fatigued in appearance. HEENT: Atraumatic, PERRLA, Normocephalic Oral: Dry Mucosa, - - Endotracheal and OG tubes remain in place Neck: Supple, No Nodes, Trachea Midline Lungs: No rhonchi, No wheeze, No rales, Diminished, Tachypneic Cardiovascular: Regular rate, Regular Rhythm, Normal S1, Normal S2, Murmur, - - Currently in NSR on telemetry Abdomen: Bowel Sounds Present, Soft, Non Tender, - - Bilateral percutaneous nephrostomy tubes in place. Extremities: - - Diffuse anasarca with mottling of the lower extremities and significant pitting edema. Skin: - - No significant change from previous. Musculoskeletal: Cachexia, - - + Temporal Wasting Lymphatic: No Cervical, Supraclavicular, or Inguinal Adenopathy Neurological: Neuro grossly intact Psych/Mental Status: Flat Affect, Depressed Vital Signs Temp Pulse Resp BP Pulse Ox 38.0 C H 70 30 H 120/48 L 100 06/11/18 02:00 06/11/18 05:40 06/11/18 05:40 06/11/18 03:00 06/11/18 05:40 Oxygen Flow Rate (L/min) [5] 15 Oxygen Flow Rate (L/min) [4] 15 Oxygen Flow Rate (L/min) [3] 15 Oxygen Flow Rate (L/min) [2] 15 Oxygen Flow Rate (L/min) [1 ( 15 Initial Baseline)] Oxygen Flow Rate (L/min) 2 Oxygen Delivery Method [5] Ambu-Bag Oxygen Delivery Method [4] Ambu-Bag Oxygen Delivery Method [3] Ambu-Bag Oxygen Delivery Method [2] Room Air Oxygen Delivery Method [1 ( Ambu-Bag Initial Baseline)] Oxygen Delivery Method Mechanical Ventilator Weight: 187 lb 13.341 oz Body Mass Index (BMI) 27.1 Finger Stick Blood Glucose 202 Intake and Output for Last 24 Hours 06/09/18 06/10/18 06/11/18 23:59 23:59 23:59 Intake Total 6372.8 / 6372.8 4836.7 / 4836.7 909 / 909 Output Total 1180 / 1180 1955 / 1955 500 / 500 Balance 5192.8 / 5192.8 2881.7 / 2881.7 409 / 409 Labs (Last 48 Hours) 06/06/18 06/06/18 06/07/18 07:15 14:00 03:50 WBC Corrected WBC RBC Hgb Hct MCV MCH MCHC RDW RDW Differential Plt Count MPV Immature Gran % (Auto) Neut % (Auto) Lymph % (Auto) [place] % (Auto) Eos % (Auto) Baso % (Auto) Absolute Neuts (auto) Absolute Lymphs (auto) Total Counted Neutrophils % (Manual) Band Neutrophils % Lymphocytes % (Manual) Monocytes % (Manual) Eosinophils % (Manual) Metamyelocytes % Promyelocytes % Nucleated RBC % Nucleated RBCs/100 WBC Differential Comment Diff Path Review Reviewed Reviewed Platelet Estimate Plt Morphology Comment Polychromasia Hypochromasia Anisocytosis Microcytosis Schistocytes Absolute Retic Haptoglobin PT INR APTT Fibrinogen Sodium Potassium Chloride Carbon Dioxide Anion Gap BUN Creatinine Estim Creat Clear Calc Est GFR (MDRD) Af Amer Est GFR (MDRD) Non-Af BUN/Creatinine Ratio Glucose Calcium Phosphorus Magnesium Vitamin B12 Heparin-induced Plt Ab POC Glucose Blood Type Antibody Screen Crossmatch See Detail 06/07/18 06/07/18 06/08/18 06:50 14:40 04:45 WBC Corrected WBC RBC Hgb Hct MCV MCH MCHC RDW RDW Differential Plt Count MPV Immature Gran % (Auto) Neut % (Auto) Lymph % (Auto) [place] % (Auto) Eos % (Auto) Baso % (Auto) Absolute Neuts (auto) Absolute Lymphs (auto) Total Counted Neutrophils % (Manual) Band Neutrophils % Lymphocytes % (Manual) Monocytes % (Manual) Eosinophils % (Manual) Metamyelocytes % Promyelocytes % Nucleated RBC % Nucleated RBCs/100 WBC Differential Comment Diff Path Review Reviewed Reviewed Platelet Estimate Plt Morphology Comment Polychromasia Hypochromasia Anisocytosis Microcytosis Schistocytes Absolute Retic Haptoglobin PT INR APTT Fibrinogen Sodium Potassium Chloride Carbon Dioxide Anion Gap BUN Creatinine Estim Creat Clear Calc Est GFR (MDRD) Af Amer Est GFR (MDRD) Non-Af BUN/Creatinine Ratio Glucose Calcium Phosphorus Magnesium Vitamin B12 Heparin-induced Plt Ab 0.138 POC Glucose Blood Type Antibody Screen Crossmatch 06/08/18 06/08/18 06/09/18 15:05 15:05 03:05 WBC Corrected WBC RBC Hgb Hct MCV MCH MCHC RDW RDW Differential Plt Count MPV Immature Gran % (Auto) Neut % (Auto) Lymph % (Auto) [place] % (Auto) Eos % (Auto) Baso % (Auto) Absolute Neuts (auto) Absolute Lymphs (auto) Total Counted Neutrophils % (Manual) Band Neutrophils % Lymphocytes % (Manual) Monocytes % (Manual) Eosinophils % (Manual) Metamyelocytes % Promyelocytes % Nucleated RBC % Nucleated RBCs/100 WBC Differential Comment Diff Path Review Reviewed Platelet Estimate Plt Morphology Comment Polychromasia Hypochromasia Anisocytosis Microcytosis Schistocytes Absolute Retic Haptoglobin 132 PT INR APTT Fibrinogen Sodium Potassium Chloride Carbon Dioxide Anion Gap BUN Creatinine Estim Creat Clear Calc Est GFR (MDRD) Af Amer Est GFR (MDRD) Non-Af BUN/Creatinine Ratio Glucose Calcium Phosphorus Magnesium Vitamin B12 1561 H Heparin-induced Plt Ab POC Glucose Blood Type Antibody Screen Crossmatch 06/09/18 06/09/1806/09/19 03:05 03:05 05:30 WBC Corrected WBC RBC Hgb Hct MCV MCH MCHC RDW RDW Differential Plt Count MPV Immature Gran % (Auto) Neut % (Auto) Lymph % (Auto) [place] % (Auto) Eos % (Auto) Baso % (Auto) Absolute Neuts (auto) Absolute Lymphs (auto) Total Counted Neutrophils % (Manual) Band Neutrophils % Lymphocytes % (Manual) Monocytes % (Manual) Eosinophils % (Manual) Metamyelocytes % Promyelocytes % Nucleated RBC % Nucleated RBCs/100 WBC Differential Comment Diff Path Review Reviewed Platelet Estimate Plt Morphology Comment Polychromasia Hypochromasia Anisocytosis Microcytosis Schistocytes Absolute Retic Haptoglobin PT INR APTT Fibrinogen Sodium Potassium Chloride Carbon Dioxide Anion Gap BUN Creatinine Estim Creat Clear Calc Est GFR (MDRD) Af Amer Est GFR (MDRD) Non-Af BUN/Creatinine Ratio Glucose Calcium Phosphorus 3.8 Magnesium 2.7 H Vitamin B12 Heparin-induced Plt Ab POC Glucose Blood Type AB POSITIVE Antibody Screen NEGATIVE Crossmatch See Detail 06/09/18 06/09/18 06/09/18 05:30 05:30 06:09 WBC Corrected WBC RBC Hgb Hct MCV MCH MCHC RDW RDW Differential Plt Count MPV Immature Gran % (Auto) Neut % (Auto) Lymph % (Auto) [place] % (Auto) Eos % (Auto) Baso % (Auto) Absolute Neuts (auto) Absolute Lymphs (auto) Total Counted Neutrophils % (Manual) Band Neutrophils % Lymphocytes % (Manual) Monocytes % (Manual) Eosinophils % (Manual) Metamyelocytes % Promyelocytes % Nucleated RBC % Nucleated RBCs/100 WBC Differential Comment Diff Path Review Platelet Estimate Plt Morphology Comment Polychromasia Hypochromasia Anisocytosis Microcytosis Schistocytes Absolute Retic Haptoglobin PT INR APTT Fibrinogen Sodium Potassium Chloride Carbon Dioxide Anion Gap BUN Creatinine Estim Creat Clear Calc Est GFR (MDRD) Af Amer Est GFR (MDRD) Non-Af BUN/Creatinine Ratio Glucose Calcium Phosphorus Magnesium Vitamin B12 Heparin-induced Plt Ab POC Glucose 165 H Blood Type Antibody Screen Crossmatch See Detail See Detail 06/09/18 06/09/18 06/09/18 12:30 13:05 17:19 WBC 12.9 H Corrected WBC RBC 2.10 L Hgb 6.3 L Hct 20.0 L MCV 95.2 H MCH 30.0 MCHC 31.5 L RDW 18.1 H RDW Differential 56.2 H Plt Count 39 L* MPV 9.7 Immature Gran % (Auto) Neut % (Auto) Not Reportable Lymph % (Auto) [place] % (Auto) Eos % (Auto) Baso % (Auto) Absolute Neuts (auto) 9.3 H Absolute Lymphs (auto) 2.83 Total Counted 100 Neutrophils % (Manual) 72 H Band Neutrophils % Lymphocytes % (Manual) 22 Monocytes % (Manual) 2 Eosinophils % (Manual) Metamyelocytes % 3 H Promyelocytes % 1 H Nucleated RBC % 34.1 H Nucleated RBCs/100 WBC Differential Comment Diff Path Review Reviewed Platelet Estimate MKD DEC Plt Morphology Comment Polychromasia 1+ Hypochromasia 3+ Anisocytosis Microcytosis 1+ Schistocytes RARE Absolute Retic 4.39 Haptoglobin PT INR APTT Fibrinogen Sodium Potassium Chloride Carbon Dioxide Anion Gap BUN Creatinine Estim Creat Clear Calc Est GFR (MDRD) Af Amer Est GFR (MDRD) Non-Af BUN/Creatinine Ratio Glucose Calcium Phosphorus Magnesium Vitamin B12 Heparin-induced Plt Ab POC Glucose 148 H 157 H Blood Type Antibody Screen Crossmatch 06/09/18 06/09/18 06/10/18 22:40 23:39 03:45 WBC 14.4 H [employer] Corrected WBC 8.5 RBC 3.01 L 3.07 L Hgb 8.9 L 9.2 L Hct 27.8 L 28.5 L MCV 92.4 92.8 MCH 29.6 30.0 MCHC 32.0 32.3 RDW 15.8 H 16.2 H RDW Differential 50.3 H 51.5 H Plt Count 44 L* 44 L* MPV 8.6 11.0 Immature Gran % (Auto) Neut % (Auto) Not Reportable Lymph % (Auto) [place] % (Auto) Eos % (Auto) Baso % (Auto) Absolute Neuts (auto) Not Reportable Absolute Lymphs (auto) Total Counted 100 Neutrophils % (Manual) 79 H Band Neutrophils % 4 Lymphocytes % (Manual) 12 L Monocytes % (Manual) 2 Eosinophils % (Manual) 2 Metamyelocytes % 1 Promyelocytes % Nucleated RBC % Nucleated RBCs/100 WBC 23 H Differential Comment SCANNED Diff Path Review Reviewed Reviewed Platelet Estimate MKD DEC Plt Morphology Comment Polychromasia Hypochromasia 1+ Anisocytosis 2+ Microcytosis Schistocytes Absolute Retic Haptoglobin PT INR APTT Fibrinogen Sodium Potassium Chloride Carbon Dioxide Anion Gap BUN Creatinine Estim Creat Clear Calc Est GFR (MDRD) Af Amer Est GFR (MDRD) Non-Af BUN/Creatinine Ratio Glucose Calcium Phosphorus Magnesium Vitamin B12 Heparin-induced Plt Ab POC Glucose 184 H Blood Type Antibody Screen Crossmatch 06/10/18 06/10/18 06/10/18 03:45 03:45 03:45 WBC Corrected WBC RBC Hgb Hct MCV MCH MCHC RDW RDW Differential Plt Count MPV Immature Gran % (Auto) Neut % (Auto) Lymph % (Auto) [place] % (Auto) Eos % (Auto) Baso % (Auto) Absolute Neuts (auto) Absolute Lymphs (auto) Total Counted Neutrophils % (Manual) Band Neutrophils % Lymphocytes % (Manual) Monocytes % (Manual) Eosinophils % (Manual) Metamyelocytes % Promyelocytes % Nucleated RBC % Nucleated RBCs/100 WBC Differential Comment Diff Path Review Platelet Estimate Plt Morphology Comment Polychromasia Hypochromasia Anisocytosis Microcytosis Schistocytes Absolute Retic Haptoglobin PT 20.1 H INR 1.7 APTT 37.4 H Fibrinogen 218 Sodium 155 H Potassium 2.9 L Chloride 126 H Carbon Dioxide 14.0 L Anion Gap 15 BUN 89 H Creatinine 2.01 H Estim Creat Clear Calc 27.33 Est GFR (MDRD) Af Amer 42 L Est GFR (MDRD) Non-Af 34 L BUN/Creatinine Ratio 44.3 H Glucose 229 H Calcium 8.1 L Phosphorus Magnesium 2.6 Vitamin B12 Heparin-induced Plt Ab POC Glucose Blood Type Antibody Screen Crossmatch 06/10/18 06/10/18 06/10/18 05:45 11:23 14:20 WBC 9.8 Corrected WBC RBC 2.52 L Hgb 7.5 L Hct 23.3 L MCV 92.5 MCH 29.8 MCHC 32.2 RDW 16.7 H RDW Differential 53.2 H Plt Count 41 L* MPV 10.2 Immature Gran % (Auto) Neut % (Auto) Lymph % (Auto) [place] % (Auto) Eos % (Auto) Baso % (Auto) Absolute Neuts (auto) Absolute Lymphs (auto) Total Counted Neutrophils % (Manual) Band Neutrophils % Lymphocytes % (Manual) Monocytes % (Manual) Eosinophils % (Manual) Metamyelocytes % Promyelocytes % Nucleated RBC % Nucleated RBCs/100 WBC Differential Comment Diff Path Review May foll Platelet Estimate Plt Morphology Comment Polychromasia Hypochromasia Anisocytosis Microcytosis Schistocytes Absolute Retic Haptoglobin PT INR APTT Fibrinogen Sodium Potassium Chloride Carbon Dioxide Anion Gap BUN Creatinine Estim Creat Clear Calc Est GFR (MDRD) Af Amer Est GFR (MDRD) Non-Af BUN/Creatinine Ratio Glucose Calcium Phosphorus Magnesium Vitamin B12 Heparin-induced Plt Ab POC Glucose 217 H 280 H Blood Type Antibody Screen Crossmatch 06/10/18 06/10/18 06/11/18 16:32 22:20 00:27 WBC Corrected WBC RBC Hgb 9.2 L Hct 28.7 L MCV MCH MCHC RDW RDW Differential Plt Count MPV Immature Gran % (Auto) Neut % (Auto) Lymph % (Auto) [place] % (Auto) Eos % (Auto) Baso % (Auto) Absolute Neuts (auto) Absolute Lymphs (auto) Total Counted Neutrophils % (Manual) Band Neutrophils % Lymphocytes % (Manual) Monocytes % (Manual) Eosinophils % (Manual) Metamyelocytes % Promyelocytes % Nucleated RBC % Nucleated RBCs/100 WBC Differential Comment Diff Path Review Platelet Estimate Plt Morphology Comment Polychromasia Hypochromasia Anisocytosis Microcytosis Schistocytes Absolute Retic Haptoglobin PT INR APTT Fibrinogen Sodium Potassium Chloride Carbon Dioxide Anion Gap BUN Creatinine Estim Creat Clear Calc Est GFR (MDRD) Af Amer Est GFR (MDRD) Non-Af BUN/Creatinine Ratio Glucose Calcium Phosphorus Magnesium Vitamin B12 Heparin-induced Plt Ab POC Glucose 210 H 226 H Blood Type Antibody Screen Crossmatch 06/11/18 06/11/18 06/11/18 04:10 04:10 05:37 WBC 8.3 Corrected WBC RBC 3.26 L Hgb 9.7 L Hct 30.2 L MCV 92.6 MCH 29.8 MCHC 32.1 RDW 16.6 H RDW Differential 52.7 H Plt Count 30 L* MPV Immature Gran % (Auto) 2.000 H Neut % (Auto) 82.7 H Lymph % (Auto) 11.4 L [place] % (Auto) 2.5 Eos % (Auto) 0.8 Baso % (Auto) 0.6 Absolute Neuts (auto) 6.9 Absolute Lymphs (auto) 0.95 Total Counted Not Reportable Neutrophils % (Manual) Band Neutrophils % Lymphocytes % (Manual) Monocytes % (Manual) Eosinophils % (Manual) Metamyelocytes % Promyelocytes % Nucleated RBC % Nucleated RBCs/100 WBC Differential Comment SCAN Diff Path Review May foll Platelet Estimate MKD DEC Plt Morphology Comment LARGE Polychromasia 1+ Hypochromasia 1+ Anisocytosis 1+ Microcytosis 1+ Schistocytes Absolute Retic Haptoglobin PT INR APTT Fibrinogen Sodium 156 H Potassium 2.9 L Chloride 126 H Carbon Dioxide 19.0 L Anion Gap 11 BUN 75 H Creatinine 1.67 H Estim Creat Clear Calc 32.90 Est GFR (MDRD) Af Amer 51 L Est GFR (MDRD) Non-Af 42 L BUN/Creatinine Ratio 44.9 H Glucose 248 H Calcium 8.3 L Phosphorus Magnesium Vitamin B12 Heparin-induced Plt Ab POC Glucose 230 H Blood Type Antibody Screen Crossmatch Microbiology 06/06/18 11:00 Urine, Nephrostomy Urine Culture - Final Culture exhibits no growth. 06/03/18 14:55 Blood Culture (Wb) - Left Wrist Blood Culture - Final No growth in 5 days. 06/03/18 15:05 Blood Culture (Wb) - Anticubital Right Blood Culture - Final No growth in 5 days. Clinical Impression(s) from Imaging Studies Brain CT 06/02/18 01:25 IMPRESSION: No acute findings. Individualized dose optimization techniques were used for this CT. at 0159 Reported and signed by: Geoff Joaquin MD Electronically Signed: Geoff Joaquin, at 1:58 EST Tel , Service support , Cervical Spine CT 06/02/18 01:25 IMPRESSION: No fracture or dislocation of the cervical spine. Individualized dose optimization techniques were used for this CT. at 0206 Reported and signed by: Geoff Joaquin MD Electronically Signed: Geoff Joaquin, at 2:05 EST Tel , Service support , Chest X-Ray 06/02/18 01:35 IMPRESSION: Low lung volumes with resultant hypoventilatory changes. No definite pneumonia or edema. Interval sternotomy probably for heart valve replacement. at 0154 Reported and signed by: Geoff Joaquin MD Electronically Signed: Geoff Joaquin, at 1:53 EST Tel , Service support , Lung Scan-VQ NM 06/02/18 13:55 IMPRESSION: Low quality VQ scan, most consistent with low probability of pulmonary embolism. Electronically Signed: Kenny Greene MD at 16:31 EST , Service support , Chest X-Ray 06/02/18 14:28 IMPRESSION: Moderate right pleural effusion with overlying atelectasis. Electronically Signed: Juan Ruiz, at 15:40 EST Tel , Service support , Chest CT 06/02/18 21:14 IMPRESSION: Small bilateral pleural effusions with overlying atelectasis. Sclerotic osseous lesions which are suspicious for metastasis. Electronically Signed: Juan Ruiz, at 22:14 EST Tel , Service support , Chest X-Ray 06/02/18 22:26 IMPRESSION: Mild left basilar atelectasis status post endotracheal tube placement Electronically Signed: Norbert Snyder MD at 23:18 EST , Service support , Abdomen CT 06/04/18 12:33 IMPRESSION: Bilateral hydronephrosis right greater than left with bilateral hydroureter. Diffusely thickened bladder wall. Electronically Signed: Javier Unger, at 15:28 EST , Service support , Nephrostomy Tube Change 06/05/18 07:41 IMPRESSION: 1. The percutaneous right nephrostomy catheter is in good position with the pigtail portion located in the right renal pelvis. 2. The conscious sedation protocol was followed. Electronically Signed: Javier Unger, at 14:33 EST , Service support , Nephrostomy Tube Change 06/09/18 08:39 IMPRESSION: 1. The percutaneous left nephrostomy catheter is in good position with the pigtail portion located in the left renal pelvis. Electronically Signed: Javier Peterdennisaaron, at 8:16 EDT , Service support , Medical Necessity - Tobacco Use Smoking Status: Former smoker Assessment/Plan All Active Problems (Last Reviewed 06/05/18 @ 07:40 by Dangelo Alvarado MD) Atrial fibrillation and flutter (Acute) Fever (Acute) Anemia (Acute) Thrombocytopenia (Acute) Bilateral hydronephrosis (Acute) DIC syndrome (Acute) RECOMMENDATIONS: 1. Transfuse additional platelets this morning. 2. Additional potassium repletion as ordered. 3. Provide D5W bolus given climbing sodium and chloride. 4. Obtain repeat plain film CXR 5. Continue Levophed in an attempt to maintain a mean arterial pressure at or above 65 mmHg. 6. Continue tube feeds and free water flushes. 7. Continue rate/rhythm control therapy per cardiology recommendations 8. Continue twice daily PPI therapy. 9. Continue antibiotics per ID recommendations. 10. We will add Precedex to the patient's medication regimen, in hopes that this will help facilitate weaning from mechanical ventilation. IMPRESSIONS: 1. Acute hypoxemic respiratory failure The exact etiology for the patient's clinical decompensation is unclear. However, the patient was noted to be tachycardic at the time when he was initially beginning to decompensate. It is unclear whether this was atrial fibrillation or a sinus tachycardia. Given that the patient has paroxysmal atrial fibrillation and underlying valvular heart disease, it is possible that his decompensation may have been heart rate related. In addition, increased metabolic demands from the patient's sepsis and fevers also likely contributed. He is chronically anticoagulated with Eliquis on an outpatient basis. The patient's CT chest only revealed evidence of small bilateral pleural effusions without focal infiltrates. His FiO2 was able to be quickly weaned. I would hold off on attempts to extubate the patient until his transesophageal echocardiogram has been completed on Saturday. At this time, the patient is severely volume overloaded. He is going to require volume optimization, likely with IV diuretics, which may be limited by his current renal function and hemodynamic status. 2. Severe sepsis with evidence of bilateral hydronephrosis/hydroureter The patient appears to be septic from a urinary source of infection. CT abdomen did reveal evidence of bilateral hydronephrosis, for which the patient underwent bilateral percutaneous nephrostomy tube placement. Antibiotics will be continued per infectious diseases recommendations. If there is no improvement in the patient's overall clinical state, consideration will be given to obtaining a transesophageal echocardiogram. 3. Paroxysmal atrial fibrillation with RVR/history of aortic valve replacement Defer management of rate/rhythm control strategy to cardiology. 4. Anemia secondary to upper GI hemorrhage/thrombocytopenia secondary to DIC The patient does have known normocytic anemia, which appears to have worsened over the course of this hospital stay. The patient did require eventual transfusion of packed red blood cells. Upper endoscopy performed at the bedside did reveal evidence of GI ulcers. However, there was no active bleeding. This will require the permanent discontinuation of the patient's systemic anticoagulation. He will be continued on twice daily PPI therapy and monitored for any ongoing blood loss. The patient has also developed worsening thrombocytopenia, which following workup, appears to be related to DIC, likely secondary to the patient's sepsis syndrome. The patient will receive additional platelets this morning, due to ongoing thrombocytopenia. 5. Hypokalemia Additional electrolyte repletion as ordered. Given the patient's underlying arr hythmia, attempt to maintain a potassium greater than 4 and magnesium greater than 2. We will plan to start scheduled daily potassium repletion as well. 6. Metastatic prostate cancer/anemia/chronic kidney disease/hypertension/hyperlipidemia/depression/generalized deconditioning and debility Complicates care, management, recovery and prognosis. Likely okay to continue home medications. Physical therapy to once again work with patient once medically stabilized. TIME: 45 minutes of critical care time, independent of procedures, was spent addressing the patient's acute hypoxemic respiratory failure, severe sepsis, paroxysmal atrial fibrillation with a rapid ventricular rate, metastatic prostate cancer, anemia, upper gastrointestinal bleed, DIC, review of all data and collaboration with the care team. ([id number]) Code Visit 9xxxx: [id number] Critical care first hour
[2018-06-11] MEDS: CHLORHEXIDINE GLUC 2% CLOTH 1 EACH TOWELETTE TOPICAL (07:09)
[2018-06-11 08:04] LABS: Pathologist Review Reviewed
--- NOTE | 2018-06-11 08:26 | PCM.PN.CARD ---
Subjectve: Patient seen and evaluated. Still intubated. Objective: Vital Signs Temp Pulse Resp BP Pulse Ox 100.8 F H 67 26 H 131/52 H 100 06/11/18 06:00 06/11/18 07:00 06/11/18 07:00 06/11/18 07:00 06/11/18 07:00 Oxygen Flow Rate (L/min) [5] 15 Oxygen Flow Rate (L/min) [4] 15 Oxygen Flow Rate (L/min) [3] 15 Oxygen Flow Rate (L/min) [2] 15 Oxygen Flow Rate (L/min) [1 ( 15 Initial Baseline)] Oxygen Flow Rate (L/min) 2 Oxygen Delivery Method [5] Ambu-Bag Oxygen Delivery Method [4] Ambu-Bag Oxygen Delivery Method [3] Ambu-Bag Oxygen Delivery Method [2] Room Air Oxygen Delivery Method [1 ( Ambu-Bag Initial Baseline)] Oxygen Delivery Method Mechanical Ventilator Weight: 187 lb 13.341 oz Body Mass Index (BMI) 27.1 Finger Stick Blood Glucose 202 Intake and Output for Last 24 Hours 06/09/18 06/10/18 06/11/18 23:59 23:59 23:59 Intake Total 6372.8 / 6372.8 4836.7 / 4836.7 909 / 909 Output Total 1180 / 1180 1955 / 1955 500 / 500 Balance 5192.8 / 5192.8 2881.7 / 2881.7 409 / 409 General: Awake, Alert, Oriented x 3, Ill Appearing HEENT: PERRL, EOMI, Sclera Non Icteric Neck: Supple, Good ROM, No Lymph Node Enlargement Lungs: Clear to auscultation Cardiovascular: Regular Rhythm, Normal S1, Normal S2, No Murmurs, No Rubs, No Gallops Vascular: No Carotid Bruits, Normal Femoral Pulses, Normal Radial Pulses, Normal Dorsalis Pedal Pulse, Normal Posterior Tibial Pulses Abdomen: Bowel Sounds Present, Soft, Non Tender, No HSM, No Organomegaly Extremities: No Cyanosis, No Clubbing, No edema Neurological: No Focal Motor or Sensory Deficit Psych/Mental Status: Appropriate 06/10/18 14:20: WBC 9.8, RBC 2.52 L, Hgb 7.5 L, Hct 23.3 L, MCV 92.5, MCH 29.8, MCHC 32.2, RDW 16.7 H, RDW Differential 53.2 H, Plt Count 41 L*, MPV 10.2 06/10/18 22:20: Hgb 9.2 L, Hct 28.7 L 06/11/18 04:10: WBC 8.3, RBC 3.26 L, Hgb 9.7 L, Hct 30.2 L, MCV 92.6, MCH 29.8, MCHC 32.1, RDW 16.6 H, RDW Differential 52.7 H, Plt Count 30 L*, Immature Gran % (Auto) 2.000 H, Neut % (Auto) 82.7 H, Lymph % (Auto) 11.4 L, [place] % (Auto) 2.5, Eos % (Auto) 0.8, Baso % (Auto) 0.6, Absolute Neuts (auto) 6.9, Total Counted Not Reportable 06/11/18 04:10: Sodium 156 H, Potassium 2.9 L, Chloride 126 H, Carbon Dioxide 19.0 L, Anion Gap 11, BUN 75 H, Creatinine 1.67 H, Est GFR (MDRD) Af Amer 51 L, Est GFR (MDRD) Non-Af 42 L, BUN/Creatinine Ratio 44.9 H, Glucose 248 H, Calcium 8.3 L Rhythm: EKG: ECHO: Stress Test: Cardiac Cath: PCI: CT Surgery: Holter monitor: EPS: PPM: CXR: Chest CT Scan: Medical Necessity - Tobacco Use Smoking Status: Former smoker Assessment/Plan 1. Atrial fibrillation/flutter The patient has demonstrated evidence of atrial fibrillation/flutter. He reverted back to atrial fibrillation. Continue to follow him in the ICU. He will continue appropriate medications for control of his atrial fibrillation flutter. 2. Status post aortic valve replacement: Bioprosthetic He does have an underlying bioprosthetic aortic valve. There was no comment on any concerns with respect to his transthoracic echocardiogram. However, based upon his underlying clinical scenario with his fevers, concerns of a possible sepsis type syndrome, and if no definitive etiology for his infectious related events, he may need to be considered for further evaluation of his aortic valve for the possibility of infectious endocarditis with a trans esophageal echocardiogram. Transthoracic echocardiogram did not necessarily demonstrate any evidence of endocarditis however. I would like to see his platelets at 50,000 or above before attempting this 3. Hyperlipidemia He can continue medical management as deemed appropriate and tolerated. 4. Hypertension At the present time his blood pressure is good. He has rate limiting medications that may affect blood pressure adversely are on hold. Any other antihypertensive type agents are on hold. Depending upon his course he may need vasopressor agents to support his blood pressure. 5. Renal insufficiency He does have a history of renal insufficiency. It may be exacerbated if he is truly intravascularly depleted based upon his situation at home being found down, lethargic, and with altered mental status. He will continue to receive IV fluids as deemed appropriate by the ICU staff. His renal function will be followed. 6. Anemia He is anemic. Etiology is secondary to his prepyloric ulcer. One also has to be careful going down with a CALI probe so as not to worsen this. Thank you for allowing me to participate in the care of your patient. Please don't hesitate to call if any issues arise
--- NOTE | 2018-06-11 08:34 | PN.SURG_ITS ---
Patient Problems: Active and Suspected Problems (Last Reviewed 06/05/18 @ 07:40 by Dangelo Alvarado MD) Atrial fibrillation and flutter (Acute) Fever (Acute) Anemia (Acute) Thrombocytopenia (Acute) Bilateral hydronephrosis (Acute) DIC syndrome (Acute) Subjective: Patient had large bloody bowel movement this morning. - Physical Exam General: Alert Abdomen: Soft, Non Tender, Non-Distended Vital Signs Temp Pulse Resp BP Pulse Ox 100.8 F H 67 26 H 131/52 H 100 06/11/18 06:00 06/11/18 07:00 06/11/18 07:00 06/11/18 07:00 06/11/18 07:00 Oxygen Flow Rate (L/min) [5] 15 Oxygen Flow Rate (L/min) [4] 15 Oxygen Flow Rate (L/min) [3] 15 Oxygen Flow Rate (L/min) [2] 15 Oxygen Flow Rate (L/min) [1 ( 15 Initial Baseline)] Oxygen Flow Rate (L/min) 2 Oxygen Delivery Method [5] Ambu-Bag Oxygen Delivery Method [4] Ambu-Bag Oxygen Delivery Method [3] Ambu-Bag Oxygen Delivery Method [2] Room Air Oxygen Delivery Method [1 ( Ambu-Bag Initial Baseline)] Oxygen Delivery Method Mechanical Ventilator Weight: 187 lb 13.341 oz Body Mass Index (BMI) 27.1 Finger Stick Blood Glucose 202 Intake and Output for Last 24 Hours 06/09/18 06/10/18 06/11/18 23:59 23:59 23:59 Intake Total 6372.8 / 6372.8 4836.7 / 4836.7 909 / 909 Output Total 1180 / 1180 1955 / 1955 500 / 500 Balance 5192.8 / 5192.8 2881.7 / 2881.7 409 / 409 Microbiology Past 72 Hours 06/06/18 11:00 Urine Culture - Final Urine, Nephrostomy Culture exhibits no growth. 06/03/18 14:55 Blood Culture - Final Blood Culture (Wb) - Left Wrist No growth in 5 days. 06/03/18 15:05 Blood Culture - Final Blood Culture (Wb) - Anticubital Right No growth in 5 days. 06/06/18 12:00 Blood Culture - Preliminary Blood Culture (Wb) - Right Wrist No growth in 48 hours. 06/06/18 11:50 Blood Culture - Preliminary Blood Culture (Wb) - Anticubital Left No growth in 48 hours. Laboratory Tests Past 24 Hrs 06/06/18 06/07/18 06/07/18 14:00 03:50 06:50 WBC RBC Hgb Hct MCV MCH MCHC RDW RDW Differential Plt Count MPV Immature Gran % (Auto) Neut % (Auto) Lymph % (Auto) [place] % (Auto) Eos % (Auto) Baso % (Auto) Absolute Neuts (auto) Absolute Lymphs (auto) Total Counted Differential Comment Diff Path Review Reviewed Reviewed Platelet Estimate Plt Morphology Comment Polychromasia Hypochromasia Anisocytosis Microcytosis Haptoglobin Sodium Potassium Chloride Carbon Dioxide Anion Gap BUN Creatinine Estim Creat Clear Calc Est GFR (MDRD) Af Amer Est GFR (MDRD) Non-Af BUN/Creatinine Ratio Glucose Calcium Heparin-induced Plt Ab 0.138 Crossmatch 06/07/18 06/08/18 06/08/18 14:40 04:45 15:05 WBC RBC Hgb Hct MCV MCH MCHC RDW RDW Differential Plt Count MPV Immature Gran % (Auto) Neut % (Auto) Lymph % (Auto) [place] % (Auto) Eos % (Auto) Baso % (Auto) Absolute Neuts (auto) Absolute Lymphs (auto) Total Counted Differential Comment Diff Path Review Reviewed Reviewed Reviewed Platelet Estimate Plt Morphology Comment Polychromasia Hypochromasia Anisocytosis Microcytosis Haptoglobin Sodium Potassium Chloride Carbon Dioxide Anion Gap BUN Creatinine Estim Creat Clear Calc Est GFR (MDRD) Af Amer Est GFR (MDRD) Non-Af BUN/Creatinine Ratio Glucose Calcium Heparin-induced Plt Ab Crossmatch 06/09/18 06/09/18 06/09/18 03:05 03:05 05:30 WBC RBC Hgb Hct MCV MCH MCHC RDW RDW Differential Plt Count MPV Immature Gran % (Auto) Neut % (Auto) Lymph % (Auto) [place] % (Auto) Eos % (Auto) Baso % (Auto) Absolute Neuts (auto) Absolute Lymphs (auto) Total Counted Differential Comment Diff Path Review Reviewed Platelet Estimate Plt Morphology Comment Polychromasia Hypochromasia Anisocytosis Microcytosis Haptoglobin 132 Sodium Potassium Chloride Carbon Dioxide Anion Gap BUN Creatinine Estim Creat Clear Calc Est GFR (MDRD) Af Amer Est GFR (MDRD) Non-Af BUN/Creatinine Ratio Glucose Calcium Heparin-induced Plt Ab Crossmatch See Detail 06/09/18 06/09/18 06/10/18 12:30 22:40 03:45 WBC RBC Hgb Hct MCV MCH MCHC RDW RDW Differential Plt Count MPV Immature Gran % (Auto) Neut % (Auto) Lymph % (Auto) [place] % (Auto) Eos % (Auto) Baso % (Auto) Absolute Neuts (auto) Absolute Lymphs (auto) Total Counted Differential Comment Diff Path Review Reviewed Reviewed Reviewed Platelet Estimate Plt Morphology Comment Polychromasia Hypochromasia Anisocytosis Microcytosis Haptoglobin Sodium Potassium Chloride Carbon Dioxide Anion Gap BUN Creatinine Estim Creat Clear Calc Est GFR (MDRD) Af Amer Est GFR (MDRD) Non-Af BUN/Creatinine Ratio Glucose Calcium Heparin-induced Plt Ab Crossmatch 06/10/18 06/10/18 06/11/18 14:20 22:20 04:10 WBC 9.8 8.3 RBC 2.52 L 3.26 L Hgb 7.5 L 9.2 L 9.7 L Hct 23.3 L 28.7 L 30.2 L MCV 92.5 92.6 MCH 29.8 29.8 MCHC 32.2 32.1 RDW 16.7 H 16.6 H RDW Differential 53.2 H 52.7 H Plt Count 41 L* 30 L* MPV 10.2 Immature Gran % (Auto) 2.000 H Neut % (Auto) 82.7 H Lymph % (Auto) 11.4 L [place] % (Auto) 2.5 Eos % (Auto) 0.8 Baso % (Auto) 0.6 Absolute Neuts (auto) 6.9 Absolute Lymphs (auto) 0.95 Total Counted Not Reportable Differential Comment SCAN Diff Path Review May foll May foll Platelet Estimate MKD DEC Plt Morphology Comment LARGE Polychromasia 1+ Hypochromasia 1+ Anisocytosis 1+ Microcytosis 1+ Haptoglobin Sodium Potassium Chloride Carbon Dioxide Anion Gap BUN Creatinine Estim Creat Clear Calc Est GFR (MDRD) Af Amer Est GFR (MDRD) Non-Af BUN/Creatinine Ratio Glucose Calcium Heparin-induced Plt Ab Crossmatch 06/11/18 04:10 WBC RBC Hgb Hct MCV MCH MCHC RDW RDW Differential Plt Count MPV Immature Gran % (Auto) Neut % (Auto) Lymph % (Auto) [place] % (Auto) Eos % (Auto) Baso % (Auto) Absolute Neuts (auto) Absolute Lymphs (auto) Total Counted Differential Comment Diff Path Review Platelet Estimate Plt Morphology Comment Polychromasia Hypochromasia Anisocytosis Microcytosis Haptoglobin Sodium 156 H Potassium 2.9 L Chloride 126 H Carbon Dioxide 19.0 L Anion Gap 11 BUN 75 H Creatinine 1.67 H Estim Creat Clear Calc 32.90 Est GFR (MDRD) Af Amer 51 L Est GFR (MDRD) Non-Af 42 L BUN/Creatinine Ratio 44.9 H Glucose 248 H Calcium 8.3 L Heparin-induced Plt Ab Crossmatch POC Glucose 06/11/18 06/11/18 06/10/18 05:37 00:27 16:32 POC Glucose 230 H 226 H 210 H 06/10/18 11:23 POC Glucose 280 H Medical Necessity - Tobacco Use Smoking Status: Former smoker Assessment/Plan All Active Problems (Last Reviewed 06/05/18 @ 07:40 by Dangelo Alvarado MD) Atrial fibrillation and flutter (Acute) Fever (Acute) Anemia (Acute) Thrombocytopenia (Acute) Bilateral hydronephrosis (Acute) DIC syndrome (Acute) 77-year-old male with DIC and GI bleed 1. Patient's white count has normalized and hemoglobin is stable from last evening after blood transfusion. He is receiving more platelets today. 2. Patient may require EGD to check if the ulcer is able to be stopped endoscopically. Next step would be transfer for IR if aggressive treatment is requested by family. Heber Mccurdy MD Pager: [facility] [address] [place] [address], [address] [place] [address] Office:
--- NOTE | 2018-06-11 08:40 | RAD_ITS ---
STUDY: X-RAY CHEST REASON FOR EXAM: Male, 77 years old. Dyspnea. TECHNIQUE: Single AP portable view of the chest. COMPARISON: Comparison is made with prior study June 02, 2018. FINDINGS: An endotracheal tube is in situ. The tip is at 4.6 cm proximal to the nicolette. An oral gastric tube is seen. The tip is at the level of the gastroesophageal junction. A right-sided PICC line catheter is seen with the tip at the junction of the superior vena cava and right atrium. EKG leads are seen. There is blunting of both costophrenic angles. Mild increased densities at both lung bases worse on the right side suggestive of atelectasis. Sternal cerclage wires and vascular clips are present from a prior sternotomy and coronary artery bypass graft procedure (CABG). Normal mediastinum and samuel. Normal visualized pulmonary arteries. There is atherosclerotic calcification of the aortic arch with tortuosity. Normal visualized thoracic spine. There is degenerative osteoarthritis of the bilateral shoulders. Bilateral nephrostomy catheters are seen. RAD/Chest 1 View (Portable) IMPRESSION: The support tubes are in good position. Findings suggest small bilateral pleural effusions with bibasilar atelectasis. Electronically Signed: Javier Unger, at 13:01 EDT , Service support ,
[2018-06-11] MEDS: DULoxetine Hcl 30 MG Capsule PO (09:21)
[2018-06-11] MEDS: Polyethylene Glycol 3350 17 GM PACKET GT (09:21)
[2018-06-11] MEDS: Chlorhexidine 15 ML PO ×2 (09:21→21:08)
--- NOTE | 2018-06-11 09:35 | PCM.PROGNOTE ---
Patient Problems: Active and Suspected Problems (Last Reviewed 06/05/18 @ 07:40 by Dangelo Alvarado MD) Atrial fibrillation and flutter (Acute) Fever (Acute) Anemia (Acute) Thrombocytopenia (Acute) Bilateral hydronephrosis (Acute) DIC syndrome (Acute) Subjective: Day #10 on ventilator All events of the past 24 hours been reviewed. He was hypotensive last night and was started on Levophed. This is currently being weaned and he is at 8 mics with a blood pressure 124/71. Still with low-grade fevers. T-max in the past 24 hours was 101.1. fluid balance since admission is +[phone],462 Has BL nephrostomy tubes All lab was personally reviewed. The WBC count today is 8.3 and the hemoglobin is 9.7 and stable. Platelets are 30,000 and he will be receiving platelets again today. Sodium is 156 today and the potassium is 2.9 with a serum bicarb of 19. BUN is 75 with a creatinine 1.67. Blood sugars are in the low 200's - was started on D5W this AM to help bring the sodium down He is nodding yes and no to my questions and promptly squeezed my hand when I asked him to. Denies pain area denies shortness of breath Failed his spontaneous breathing trial today due to tachypnea. Startles easily when you touch him Objective: PHYSICAL EXAM: GENERAL: alert, currently sedated with Fentanyl, NAD ORAL: dry mucosa, no mucosal lesions NECK: + JVD, supple, trachea midline LUNGS: CTA, symmetric chest expansion, diminished, no wheezes, no rales HEART: RRR, Normal S1 and S2, no rub, no gallop ABDOMEN: soft, NT, ND, BS present, no guarding with palpation EXTREMITIES: + edema, + cyanosis and the nailbeds of the toes, the feet and the distal LE's are cold to touch SKIN: No rashes, no breakdown NEUROLOGIC: no focal neurologic deficits CXR today with increasing PVC - Physical Exam Vital Signs Temp Pulse Resp BP Pulse Ox 100.8 F H 67 26 H 131/52 H 100 06/11/18 06:00 06/11/18 07:00 06/11/18 07:00 06/11/18 07:00 06/11/18 07:00 Oxygen Flow Rate (L/min) [5] 15 Oxygen Flow Rate (L/min) [4] 15 Oxygen Flow Rate (L/min) [3] 15 Oxygen Flow Rate (L/min) [2] 15 Oxygen Flow Rate (L/min) [1 ( 15 Initial Baseline)] Oxygen Flow Rate (L/min) 2 Oxygen Delivery Method [5] Ambu-Bag Oxygen Delivery Method [4] Ambu-Bag Oxygen Delivery Method [3] Ambu-Bag Oxygen Delivery Method [2] Room Air Oxygen Delivery Method [1 ( Ambu-Bag Initial Baseline)] Oxygen Delivery Method Mechanical Ventilator Weight: 187 lb 13.341 oz Body Mass Index (BMI) 27.1 Finger Stick Blood Glucose 202 Intake and Output for Last 24 Hours 06/09/18 06/10/18 06/11/18 23:59 23:59 23:59 Intake Total 6372.8 / 6372.8 4836.7 / 4836.7 909 / 909 Output Total 1180 / 1180 1955 / 1955 500 / 500 Balance 5192.8 / 5192.8 2881.7 / 2881.7 409 / 409 Microbiology Past 72 Hours 06/06/18 11:00 Urine Culture - Final Urine, Nephrostomy Culture exhibits no growth. 06/03/18 14:55 Blood Culture - Final Blood Culture (Wb) - Left Wrist No growth in 5 days. 06/03/18 15:05 Blood Culture - Final Blood Culture (Wb) - Anticubital Right No growth in 5 days. 06/06/18 12:00 Blood Culture - Preliminary Blood Culture (Wb) - Right Wrist No growth in 48 hours. 06/06/18 11:50 Blood Culture - Preliminary Blood Culture (Wb) - Anticubital Left No growth in 48 hours. Laboratory Tests Past 24 Hrs 06/06/18 06/07/18 06/07/18 14:00 03:50 06:50 WBC RBC Hgb Hct MCV MCH MCHC RDW RDW Differential Plt Count MPV Immature Gran % (Auto) Neut % (Auto) Lymph % (Auto) [place] % (Auto) Eos % (Auto) Baso % (Auto) Absolute Neuts (auto) Absolute Lymphs (auto) Total Counted Differential Comment Diff Path Review Reviewed Reviewed Platelet Estimate Plt Morphology Comment Polychromasia Hypochromasia Anisocytosis Microcytosis Haptoglobin Sodium Potassium Chloride Carbon Dioxide Anion Gap BUN Creatinine Estim Creat Clear Calc Est GFR (MDRD) Af Amer Est GFR (MDRD) Non-Af BUN/Creatinine Ratio Glucose Calcium Heparin-induced Plt Ab 0.138 Crossmatch 06/07/18 06/08/18 06/08/18 14:40 04:45 15:05 WBC RBC Hgb Hct MCV MCH MCHC RDW RDW Differential Plt Count MPV Immature Gran % (Auto) Neut % (Auto) Lymph % (Auto) [place] % (Auto) Eos % (Auto) Baso % (Auto) Absolute Neuts (auto) Absolute Lymphs (auto) Total Counted Differential Comment Diff Path Review Reviewed Reviewed Reviewed Platelet Estimate Plt Morphology Comment Polychromasia Hypochromasia Anisocytosis Microcytosis Haptoglobin Sodium Potassium Chloride Carbon Dioxide Anion Gap BUN Creatinine Estim Creat Clear Calc Est GFR (MDRD) Af Amer Est GFR (MDRD) Non-Af BUN/Creatinine Ratio Glucose Calcium Heparin-induced Plt Ab Crossmatch 06/09/18 06/09/18 06/09/18 03:05 03:05 05:30 WBC RBC Hgb Hct MCV MCH MCHC RDW RDW Differential Plt Count MPV Immature Gran % (Auto) Neut % (Auto) Lymph % (Auto) [place] % (Auto) Eos % (Auto) Baso % (Auto) Absolute Neuts (auto) Absolute Lymphs (auto) Total Counted Differential Comment Diff Path Review Reviewed Platelet Estimate Plt Morphology Comment Polychromasia Hypochromasia Anisocytosis Microcytosis Haptoglobin 132 Sodium Potassium Chloride Carbon Dioxide Anion Gap BUN Creatinine Estim Creat Clear Calc Est GFR (MDRD) Af Amer Est GFR (MDRD) Non-Af BUN/Creatinine Ratio Glucose Calcium Heparin-induced Plt Ab Crossmatch See Detail 06/09/18 06/09/18 06/10/18 12:30 22:40 03:45 WBC RBC Hgb Hct MCV MCH MCHC RDW RDW Differential Plt Count MPV Immature Gran % (Auto) Neut % (Auto) Lymph % (Auto) [place] % (Auto) Eos % (Auto) Baso % (Auto) Absolute Neuts (auto) Absolute Lymphs (auto) Total Counted Differential Comment Diff Path Review Reviewed Reviewed Reviewed Platelet Estimate Plt Morphology Comment Polychromasia Hypochromasia Anisocytosis Microcytosis Haptoglobin Sodium Potassium Chloride Carbon Dioxide Anion Gap BUN Creatinine Estim Creat Clear Calc Est GFR (MDRD) Af Amer Est GFR (MDRD) Non-Af BUN/Creatinine Ratio Glucose Calcium Heparin-induced Plt Ab Crossmatch 06/10/18 06/10/18 06/11/18 14:20 22:20 04:10 WBC 9.8 8.3 RBC 2.52 L 3.26 L Hgb 7.5 L 9.2 L 9.7 L Hct 23.3 L 28.7 L 30.2 L MCV 92.5 92.6 MCH 29.8 29.8 MCHC 32.2 32.1 RDW 16.7 H 16.6 H RDW Differential 53.2 H 52.7 H Plt Count 41 L* 30 L* MPV 10.2 Immature Gran % (Auto) 2.000 H Neut % (Auto) 82.7 H Lymph % (Auto) 11.4 L [place] % (Auto) 2.5 Eos % (Auto) 0.8 Baso % (Auto) 0.6 Absolute Neuts (auto) 6.9 Absolute Lymphs (auto) 0.95 Total Counted Not Reportable Differential Comment SCAN Diff Path Review May foll May foll Platelet Estimate MKD DEC Plt Morphology Comment LARGE Polychromasia 1+ Hypochromasia 1+ Anisocytosis 1+ Microcytosis 1+ Haptoglobin Sodium Potassium Chloride Carbon Dioxide Anion Gap BUN Creatinine Estim Creat Clear Calc Est GFR (MDRD) Af Amer Est GFR (MDRD) Non-Af BUN/Creatinine Ratio Glucose Calcium Heparin-induced Plt Ab Crossmatch 06/11/18 04:10 WBC RBC Hgb Hct MCV MCH MCHC RDW RDW Differential Plt Count MPV Immature Gran % (Auto) Neut % (Auto) Lymph % (Auto) [place] % (Auto) Eos % (Auto) Baso % (Auto) Absolute Neuts (auto) Absolute Lymphs (auto) Total Counted Differential Comment Diff Path Review Platelet Estimate Plt Morphology Comment Polychromasia Hypochromasia Anisocytosis Microcytosis Haptoglobin Sodium 156 H Potassium 2.9 L Chloride 126 H Carbon Dioxide 19.0 L Anion Gap 11 BUN 75 H Creatinine 1.67 H Estim Creat Clear Calc 32.90 Est GFR (MDRD) Af Amer 51 L Est GFR (MDRD) Non-Af 42 L BUN/Creatinine Ratio 44.9 H Glucose 248 H Calcium 8.3 L Heparin-induced Plt Ab Crossmatch POC Glucose 06/11/18 06/11/18 06/10/18 05:37 00:27 16:32 POC Glucose 230 H 226 H 210 H 06/10/18 11:23 POC Glucose 280 H Medical Necessity - Tobacco Use Smoking Status: Former smoker Assessment/Plan All Active Problems (Last Reviewed 06/05/18 @ 07:40 by Dangelo Alvarado MD) Atrial fibrillation and flutter (Acute) Fever (Acute) Anemia (Acute) Thrombocytopenia (Acute) Bilateral hydronephrosis (Acute) DIC syndrome (Acute) Day #10 and Zosyn Day #10 ventilator Impressions 1. Acute hypoxemic respiratory failure requiring intubation 2. Septic shock with hypotension requiring pressors secondary to Enterococcus faecalis 3. DIC 4. Upper GI bleed secondary to peptic ulcer disease-hemoglobin is now stable 5. Atrial fibrillation/atrial flutter with rapid ventricular response 6. History of bioprosthetic aortic valve 7. Acute urinary tract infection with bilateral hydronephrosis status post right nephrostomy tube on 06/05/2018 and left nephrostomy tube on 06/09/2018 8. Acute renal failure on chronic kidney disease stage III-secondary to bladder outlet obstruction with bilateral hydronephrosis and hydroureter as well as sepsis and dehydration 9. Metabolic acidosis secondary to acute renal failure 10. Hypertension 11. Prostate cancer with metastases to the bone-never treated 12. Bladder outlet obstruction 13. Severe anemia secondary to upper GI bleed, thrombocytopenia and DIC 14. Hypokalemia 15. Hyperlipidemia 16. Depression 17. Moderate malnutrition 18. Hypernatremia 19. Abnormal LFTs-possible liver metastases 20. Elevated troponin likely secondary to demand ischemia from atrial fibrillation with rapid ventricular response 21. Stage I diastolic dysfunction continue the Zosyn PLT's today Supplement potassium recheck lab in the AM After the potassium is WNL consider Lasix since he is now 20 L plus Wean Levophed as tolerated Transition to Precedex from fentanyl to help control anxiety Continue tube feeds Prognosis is poor No CALI today
[2018-06-11 12:46] LABS: Bedside Glucose 228 mg/dL (70-110)
--- NOTE | 2018-06-11 13:58 | PN.ID_ITS ---
Patient Problems: Active and Suspected Problems (Last Reviewed 06/05/18 @ 07:40 by Dangelo Alvarado MD) Atrial fibrillation and flutter (Acute) Fever (Acute) Anemia (Acute) Thrombocytopenia (Acute) Bilateral hydronephrosis (Acute) DIC syndrome (Acute) Subjective: Large bloody BM this AM. Started on levophed for hypotension. Fever today to 100.9. - Physical Exam General: - - on vent, sedated Lungs: Clear to auscultation, Normal air movement Cardiovascular: Regular rate, Regular Rhythm Abdomen: Soft, Non Tender, Non-Distended Skin: No rashes Vital Signs Temp Pulse Resp BP Pulse Ox 100.9 F H 59 L 22 H 119/59 L 100 06/11/18 11:00 06/11/18 11:00 06/11/18 11:00 06/11/18 11:00 06/11/18 11:00 Oxygen Flow Rate (L/min) [5] 15 Oxygen Flow Rate (L/min) [4] 15 Oxygen Flow Rate (L/min) [3] 15 Oxygen Flow Rate (L/min) [2] 15 Oxygen Flow Rate (L/min) [1 ( 15 Initial Baseline)] Oxygen Flow Rate (L/min) 2 Oxygen Delivery Method [5] Ambu-Bag Oxygen Delivery Method [4] Ambu-Bag Oxygen Delivery Method [3] Ambu-Bag Oxygen Delivery Method [2] Room Air Oxygen Delivery Method [1 ( Ambu-Bag Initial Baseline)] Oxygen Delivery Method Mechanical Ventilator Weight: 85.2 kg Body Mass Index (BMI) 27.1 Finger Stick Blood Glucose 202 Intake and Output for Last 24 Hours 06/09/18 06/10/18 06/11/18 23:59 23:59 23:59 Intake Total 6372.8 / 6372.8 4836.7 / 4836.7 1675 / 1675 Output Total 1180 / 1180 1955 / 1955 675 / 675 Balance 5192.8 / 5192.8 2881.7 / 2881.7 1000 / 1000 Microbiology Past 72 Hours 06/10/18 14:54 Urine Culture - Preliminary Urine, Nephrostomy Culture exhibits no growth. 06/06/18 11:00 Urine Culture - Final Urine, Nephrostomy Culture exhibits no growth. 06/03/18 14:55 Blood Culture - Final Blood Culture (Wb) - Left Wrist No growth in 5 days. 06/03/18 15:05 Blood Culture - Final Blood Culture (Wb) - Anticubital Right No growth in 5 days. 06/06/18 12:00 Blood Culture - Preliminary Blood Culture (Wb) - Right Wrist No growth in 48 hours. 06/06/18 11:50 Blood Culture - Preliminary Blood Culture (Wb) - Anticubital Left No growth in 48 hours. Laboratory Tests Past 24 Hrs 06/09/18 06/10/18 06/10/18 05:30 03:45 14:20 WBC 9.8 RBC 2.52 L Hgb 7.5 L Hct 23.3 L MCV 92.5 MCH 29.8 MCHC 32.2 RDW 16.7 H RDW Differential 53.2 H Plt Count 41 L* MPV 10.2 Immature Gran % (Auto) Neut % (Auto) Lymph % (Auto) [place] % (Auto) Eos % (Auto) Baso % (Auto) Absolute Neuts (auto) Absolute Lymphs (auto) Total Counted Differential Comment Diff Path Review Reviewed July Platelet Estimate Plt Morphology Comment Polychromasia Hypochromasia Anisocytosis Microcytosis Sodium Potassium Chloride Carbon Dioxide Anion Gap BUN Creatinine Estim Creat Clear Calc Est GFR (MDRD) Af Amer Est GFR (MDRD) Non-Af BUN/Creatinine Ratio Glucose Calcium Crossmatch See Detail 06/10/18 06/11/18 06/11/18 22:20 04:10 04:10 WBC 8.3 RBC 3.26 L Hgb 9.2 L 9.7 L Hct 28.7 L 30.2 L MCV 92.6 MCH 29.8 MCHC 32.1 RDW 16.6 H RDW Differential 52.7 H Plt Count 30 L* MPV Immature Gran % (Auto) 2.000 H Neut % (Auto) 82.7 H Lymph % (Auto) 11.4 L [place] % (Auto) 2.5 Eos % (Auto) 0.8 Baso % (Auto) 0.6 Absolute Neuts (auto) 6.9 Absolute Lymphs (auto) 0.95 Total Counted Not Reportable Differential Comment SCAN Diff Path Review May foll Platelet Estimate MKD DEC Plt Morphology Comment LARGE Polychromasia 1+ Hypochromasia 1+ Anisocytosis 1+ Microcytosis 1+ Sodium 156 H Potassium 2.9 L Chloride 126 H Carbon Dioxide 19.0 L Anion Gap 11 BUN 75 H Creatinine 1.67 H Estim Creat Clear Calc 32.90 Est GFR (MDRD) Af Amer 51 L Est GFR (MDRD) Non-Af 42 L BUN/Creatinine Ratio 44.9 H Glucose 248 H Calcium 8.3 L Crossmatch POC Glucose 06/11/18 06/11/18 06/11/18 12:08 05:37 00:27 POC Glucose 228 H 230 H 226 H 06/10/18 16:32 POC Glucose 210 H Medical Necessity - Tobacco Use Smoking Status: Former smoker Route of nutrition/ use of supplements: [] Nutritional Intake: [] IV Site: [] [place] Catheter: [] - Assessment/Plan Antibiotics: [] Assessment/Plan: [] Active and Suspected Problems (Last Updated 06/02/18 @ 03:12 by Sally Cm MD) Atrial fibrillation and flutter (Acute) Fever (Acute) Anemia (Acute) Thrombocytopenia (Acute) Fever - at this point seems likely due to 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 UA with mild pyuria, Ucx with only small growth of enterococcus. On vanc/zosyn. Bcx neg so far. Dr. Alvarado following. R neph tube placed 06/05, L placed 06/09. Wbc improved, temp overall better but still fever today. Pending cx L neph tube drainage. Stopped vanc 06/10. Continue zosyn. CALI when more stable. Will follow
[2018-06-11 14:17] LABS: Pathologist Review Reviewed
[2018-06-11 14:19] LABS: Pathologist Review Reviewed
[2018-06-11 17:40] LABS: Potassium 3.3 mmol/L (3.5-5.1)
[2018-06-11 18:25] LABS: Bedside Glucose 147 mg/dL (70-110)
[2018-06-11 20:42] LABS: Absolute Nucleated RBC Count 0.94 10^3/uL (0-5); NRBC Flagged by Analyzer 11.3 % (0-5)
[2018-06-11] MEDS: Atorvastatin Calcium 10 MG Tablet GT (21:09)
[2018-06-11] MEDS: Acetaminophen 650 MG/20 ML UDC GT (21:14)
[2018-06-12] VITALS (50 sets, daily range): BP systolic 82–140; BP diastolic 39–101; PULSE 54–72; RESP 14–63; TEMP 37.9–38.7; O2SAT 87–100
[2018-06-12 01:40] LABS: Bedside Glucose 176 mg/dL (70-110)
[2018-06-12 04:42] LABS: Anion Gap 8 (5-15); BUN 57 mg/dL (7-18); BUN/Creat Ratio 47.1 RATIO (10-20); Calcium,Total 8.3 mg/dL (8.5-10.1); Chloride 128 mmol/L (98-107); Creatinine, Serum 1.21 mg/dL (0.70-1.30); EST Glomerular Filtration Rate 62 mL/min (>60); Est Glom Filt Rate - Afr Amer 75 mL/min (>60); Glucose 179 mg/dL (74-106); Phosphorus 3.3 mg/dL (2.5-4.9); Potassium 3.6 mmol/L (3.5-5.1); Sodium Level 154 mmol/L (136-145)
[2018-06-12 05:04] LABS: Absolute Lymphocyte Count 1.31 X10^3/ul (0.83-4.51); Absolute Neutrophil Count 5.9 X10^3/uL (2.0-7.7); Basophil# 0.04 X10^3/uL; Basophil% 0.5 % (0-1); Eosinophil# 0.05 X10^3/uL; Eosinophils% 0.7 % (0-5); Hematocrit 28.3 % (40-54); Lymphocyte # 1.31 X10^3/ul (4.0); Lymphocyte % 17.4 % (19-41); Mean Corp Hgb Conc 31.8 g/gl (32-36); Mean Corpuscular Hgb 29.6 pg (27.0-32.0); Mean Corpuscular Volume 93.1 fL (80-94); Monocyte# 0.17 X10^3/uL; Monocyte% 2.3 % (0-10); Neutrophil # 5.86 X10^3/uL (2.7-7.7); Neutrophil % 77.5 % (47-70); RBC Distribution Width CV 17.9 % (11.6-14.6); RBC Distribution Width SD 54.8 fl (35.1-43.9); Red Blood Count 3.04 M/mm3 (4.6-6.2); White Blood Count 7.6 K/mm3 (4.4-11.0)
[2018-06-12] MEDS: Sucralfate 1 GM Tablet GT ×3 (05:06→23:33)
[2018-06-12 05:07] LABS: Differential Indicated SCAN CRITERIA MET; POSITIVE COUNT YES; POSITIVE DIFFERENTIAL NO; POSITIVE MORPHOLOGY YES; Platelet Count 39 K/mm3 (150-450)
[2018-06-12] MEDS: Insulin Lispro 100 UNIT/ML INSULN.PEN SC ×3 (05:07→18:16)
[2018-06-12 05:21] LABS: Bedside Glucose 155 mg/dL (70-110)
[2018-06-12] MEDS: CHLORHEXIDINE GLUC 2% CLOTH 1 EACH TOWELETTE TOPICAL (05:33)
[2018-06-12 05:53] LABS: Absolute Nucleated RBC Count 0.33 10^3/uL (0-5); Differential Comment SCAN; NRBC Flagged by Analyzer 4.3 % (0-5); Platelet Estimate MKD DEC (ADEQ)
[2018-06-12 05:54] LABS: Anisocytosis 1+; Hypochromasia 1+; Microcytosis 1+; Polychromasia 2+
--- NOTE | 2018-06-12 06:13 | PCM.PN.INT ---
Subjective: The patient was seen and examined at the bedside this morning. Events from the last 24 hours have been reviewed. The patient remains febrile this morning. FiO2 requirement remains stable at 30%. The patient is still bleeding from his [place] and nephrostomy tube sites. Hemoglobin is stable this morning at 9.0 g/dL. Platelet count is relatively stable at 39,000. Sodium and chloride levels remain elevated. Creatinine has normalized. The patient is now documented to be overall net +24 L for the admission. He remains on Levophed at 7 mcg. Precedex is currently infusing at 0.8. The patient once again failed his spontaneous breathing trial this morning due to the development of severe tachypnea. Objective: The patient's most recent lab work, culture data and imaging studies have all been personally reviewed. Surface echocardiogram revealed normal LV size and function with an ejection fraction of 65% and stage I diastolic dysfunction. Pulmonary artery systolic pressure was estimated to be 40 mmHg. VQ scan completed on June 02 was noted to be a low quality VQ scan, but was reported to be most consistent with low probability for PE. CT chest dated June 02 revealed small bilateral pleural effusions without focal infiltrates. CT abdomen revealed bilateral hydronephrosis along with bilateral hydroureter. Urine culture dated June 02 and June 03 both revealed Enterococcus faecalis. General: - - Will still arouse to verbal stimulation but appears quite ill and fatigued in appearance. Remains intubated and mechanically ventilated. HEENT: Atraumatic, PERRLA, Normocephalic Oral: No Gingival or Mucosal Lesions/ Ulcerations, - - Endotracheal and OG tubes remain in place Neck: Supple, No Nodes, Trachea Midline Lungs: No rhonchi, No wheeze, Diminished, Tachypneic Cardiovascular: Regular rate, Regular Rhythm, Normal S1, Normal S2, Murmur, - - Remains in normal sinus rhythm Abdomen: Bowel Sounds Present, Soft, Non Tender, - - Bilateral nephrostomy tubes remain in place Extremities: - - Diffuse anasarca Skin: - - No significant change from previous Musculoskeletal: Cachexia Lymphatic: No Cervical, Supraclavicular, or Inguinal Adenopathy Neurological: - - No focal neurological deficits Psych/Mental Status: Flat Affect Vital Signs Temp Pulse Resp BP Pulse Ox 38.5 C H 64 63 H 104/51 L 99 06/12/18 02:00 06/12/18 04:59 06/12/18 05:33 06/12/18 03:15 06/12/18 04:59 Oxygen Flow Rate (L/min) [5] 15 Oxygen Flow Rate (L/min) [4] 15 Oxygen Flow Rate (L/min) [3] 15 Oxygen Flow Rate (L/min) [2] 15 Oxygen Flow Rate (L/min) [1 ( 15 Initial Baseline)] Oxygen Flow Rate (L/min) 2 Oxygen Delivery Method [5] Ambu-Bag Oxygen Delivery Method [4] Ambu-Bag Oxygen Delivery Method [3] Ambu-Bag Oxygen Delivery Method [2] Room Air Oxygen Delivery Method [1 ( Ambu-Bag Initial Baseline)] Oxygen Delivery Method Mechanical Ventilator Weight: 194 lb 14.218 oz Body Mass Index (BMI) 27.1 Finger Stick Blood Glucose 202 Intake and Output for Last 24 Hours 06/10/18 06/11/18 06/12/18 23:59 23:59 23:59 Intake Total 4836.7 / 4836.7 5005.8 / 5005.8 787 / 787 Output Total 1955 / 1955 1550 / 1550 200 / 200 Balance 2881.7 / 2881.7 3455.8 / 3455.8 587 / 587 Labs (Last 48 Hours) 06/06/18 06/07/18 06/07/18 14:00 03:50 06:50 WBC Corrected WBC RBC Hgb Hct MCV MCH MCHC RDW RDW Differential Plt Count MPV Immature Gran % (Auto) Neut % (Auto) Lymph % (Auto) [place] % (Auto) Eos % (Auto) Baso % (Auto) Absolute Neuts (auto) Absolute Lymphs (auto) Total Counted Neutrophils % (Manual) Band Neutrophils % Lymphocytes % (Manual) Monocytes % (Manual) Eosinophils % (Manual) Metamyelocytes % Nucleated RBC % Nucleated RBCs/100 WBC Differential Comment Diff Path Review Reviewed Reviewed Platelet Estimate Plt Morphology Comment Polychromasia Hypochromasia Anisocytosis Microcytosis Absolute Retic Haptoglobin Sodium Potassium Chloride Carbon Dioxide Anion Gap BUN Creatinine Estim Creat Clear Calc Est GFR (MDRD) Af Amer Est GFR (MDRD) Non-Af BUN/Creatinine Ratio Glucose Calcium Phosphorus Magnesium Heparin-induced Plt Ab 0.138 POC Glucose Crossmatch 06/07/18 06/08/18 06/08/18 14:40 04:45 15:05 WBC Corrected WBC RBC Hgb Hct MCV MCH MCHC RDW RDW Differential Plt Count MPV Immature Gran % (Auto) Neut % (Auto) Lymph % (Auto) [place] % (Auto) Eos % (Auto) Baso % (Auto) Absolute Neuts (auto) Absolute Lymphs (auto) Total Counted Neutrophils % (Manual) Band Neutrophils % Lymphocytes % (Manual) Monocytes % (Manual) Eosinophils % (Manual) Metamyelocytes % Nucleated RBC % Nucleated RBCs/100 WBC Differential Comment Diff Path Review Reviewed Reviewed Reviewed Platelet Estimate Plt Morphology Comment Polychromasia Hypochromasia Anisocytosis Microcytosis Absolute Retic Haptoglobin Sodium Potassium Chloride Carbon Dioxide Anion Gap BUN Creatinine Estim Creat Clear Calc Est GFR (MDRD) Af Amer Est GFR (MDRD) Non-Af BUN/Creatinine Ratio Glucose Calcium Phosphorus Magnesium Heparin-induced Plt Ab POC Glucose Crossmatch 06/09/18 06/09/18 06/09/18 03:05 03:05 05:30 WBC Corrected WBC RBC Hgb Hct MCV MCH MCHC RDW RDW Differential Plt Count MPV Immature Gran % (Auto) Neut % (Auto) Lymph % (Auto) [place] % (Auto) Eos % (Auto) Baso % (Auto) Absolute Neuts (auto) Absolute Lymphs (auto) Total Counted Neutrophils % (Manual) Band Neutrophils % Lymphocytes % (Manual) Monocytes % (Manual) Eosinophils % (Manual) Metamyelocytes % Nucleated RBC % Nucleated RBCs/100 WBC Differential Comment Diff Path Review Reviewed Platelet Estimate Plt Morphology Comment Polychromasia Hypochromasia Anisocytosis Microcytosis Absolute Retic Haptoglobin 132 Sodium Potassium Chloride Carbon Dioxide Anion Gap BUN Creatinine Estim Creat Clear Calc Est GFR (MDRD) Af Amer Est GFR (MDRD) Non-Af BUN/Creatinine Ratio Glucose Calcium Phosphorus Magnesium Heparin-induced Plt Ab POC Glucose Crossmatch See Detail 06/09/18 06/09/18 06/10/18 12:30 22:40 03:45 WBC [employer]ING [employer]END[employer] Corrected WBC 8.5 RBC 3.07 L Hgb 9.2 L Hct 28.5 L MCV 92.8 MCH 30.0 MCHC 32.3 RDW 16.2 H RDW Differential 51.5 H Plt Count 44 L* MPV 11.0 Immature Gran % (Auto) Neut % (Auto) Not Reportable Lymph % (Auto) [place] % (Auto) Eos % (Auto) Baso % (Auto) Absolute Neuts (auto) Not Reportable Absolute Lymphs (auto) Total Counted 100 Neutrophils % (Manual) 79 H Band Neutrophils % 4 Lymphocytes % (Manual) 12 L Monocytes % (Manual) 2 Eosinophils % (Manual) 2 Metamyelocytes % 1 Nucleated RBC % Nucleated RBCs/100 WBC 23 H Differential Comment Diff Path Review Reviewed Reviewed Reviewed Platelet Estimate MKD DEC Plt Morphology Comment Polychromasia Hypochromasia 1+ Anisocytosis 2+ Microcytosis Absolute Retic Haptoglobin Sodium Potassium Chloride Carbon Dioxide Anion Gap BUN Creatinine Estim Creat Clear Calc Est GFR (MDRD) Af Amer Est GFR (MDRD) Non-Af BUN/Creatinine Ratio Glucose Calcium Phosphorus Magnesium Heparin-induced Plt Ab POC Glucose Crossmatch 06/10/18 06/10/18 06/10/18 03:45 11:23 14:20 WBC 9.8 Corrected WBC RBC 2.52 L Hgb 7.5 L Hct 23.3 L MCV 92.5 MCH 29.8 MCHC 32.2 RDW 16.7 H RDW Differential 53.2 H Plt Count 41 L* MPV 10.2 Immature Gran % (Auto) Neut % (Auto) Lymph % (Auto) [place] % (Auto) Eos % (Auto) Baso % (Auto) Absolute Neuts (auto) Absolute Lymphs (auto) Total Counted Neutrophils % (Manual) Band Neutrophils % Lymphocytes % (Manual) Monocytes % (Manual) Eosinophils % (Manual) Metamyelocytes % Nucleated RBC % Nucleated RBCs/100 WBC Differential Comment Diff Path Review Reviewed Platelet Estimate Plt Morphology Comment Polychromasia Hypochromasia Anisocytosis Microcytosis Absolute Retic Haptoglobin Sodium Potassium Chloride Carbon Dioxide Anion Gap BUN Creatinine Estim Creat Clear Calc Est GFR (MDRD) Af Amer Est GFR (MDRD) Non-Af BUN/Creatinine Ratio Glucose Calcium Phosphorus Magnesium 2.6 Heparin-induced Plt Ab POC Glucose 280 H Crossmatch 06/10/18 06/10/18 06/11/18 16:32 22:20 00:27 WBC Corrected WBC RBC Hgb 9.2 L Hct 28.7 L MCV MCH MCHC RDW RDW Differential Plt Count MPV Immature Gran % (Auto) Neut % (Auto) Lymph % (Auto) [place] % (Auto) Eos % (Auto) Baso % (Auto) Absolute Neuts (auto) Absolute Lymphs (auto) Total Counted Neutrophils % (Manual) Band Neutrophils % Lymphocytes % (Manual) Monocytes % (Manual) Eosinophils % (Manual) Metamyelocytes % Nucleated RBC % Nucleated RBCs/100 WBC Differential Comment Diff Path Review Platelet Estimate Plt Morphology Comment Polychromasia Hypochromasia Anisocytosis Microcytosis Absolute Retic Haptoglobin Sodium Potassium Chloride Carbon Dioxide Anion Gap BUN Creatinine Estim Creat Clear Calc Est GFR (MDRD) Af Amer Est GFR (MDRD) Non-Af BUN/Creatinine Ratio Glucose Calcium Phosphorus Magnesium Heparin-induced Plt Ab POC Glucose 210 H 226 H Crossmatch 06/11/18 06/11/18 06/11/18 04:10 04:10 05:37 WBC 8.3 Corrected WBC RBC 3.26 L Hgb 9.7 L Hct 30.2 L MCV 92.6 MCH 29.8 MCHC 32.1 RDW 16.6 H RDW Differential 52.7 H Plt Count 30 L* MPV Immature Gran % (Auto) 2.000 H Neut % (Auto) 82.7 H Lymph % (Auto) 11.4 L [place] % (Auto) 2.5 Eos % (Auto) 0.8 Baso % (Auto) 0.6 Absolute Neuts (auto) 6.9 Absolute Lymphs (auto) 0.95 Total Counted Not Reportable Neutrophils % (Manual) Band Neutrophils % Lymphocytes % (Manual) Monocytes % (Manual) Eosinophils % (Manual) Metamyelocytes % Nucleated RBC % 11.3 H Nucleated RBCs/100 WBC Differential Comment SCAN Diff Path Review Reviewed Platelet Estimate MKD DEC Plt Morphology Comment LARGE Polychromasia 1+ Hypochromasia 1+ Anisocytosis 1+ Microcytosis 1+ Absolute Retic 0.94 Haptoglobin Sodium 156 H Potassium 2.9 L Chloride 126 H Carbon Dioxide 19.0 L Anion Gap 11 BUN 75 H Creatinine 1.67 H Estim Creat Clear Calc 32.90 Est GFR (MDRD) Af Amer 51 L Est GFR (MDRD) Non-Af 42 L BUN/Creatinine Ratio 44.9 H Glucose 248 H Calcium 8.3 L Phosphorus Magnesium Heparin-induced Plt Ab POC Glucose 230 H Crossmatch 06/11/18 06/11/18 06/11/18 12:08 17:25 18:16 WBC Corrected WBC RBC Hgb Hct MCV MCH MCHC RDW RDW Differential Plt Count MPV Immature Gran % (Auto) Neut % (Auto) Lymph % (Auto) [place] % (Auto) Eos % (Auto) Baso % (Auto) Absolute Neuts (auto) Absolute Lymphs (auto) Total Counted Neutrophils % (Manual) Band Neutrophils % Lymphocytes % (Manual) Monocytes % (Manual) Eosinophils % (Manual) Metamyelocytes % Nucleated RBC % Nucleated RBCs/100 WBC Differential Comment Diff Path Review Platelet Estimate Plt Morphology Comment Polychromasia Hypochromasia Anisocytosis Microcytosis Absolute Retic Haptoglobin Sodium Potassium 3.3 L Chloride Carbon Dioxide Anion Gap BUN Creatinine Estim Creat Clear Calc Est GFR (MDRD) Af Amer Est GFR (MDRD) Non-Af BUN/Creatinine Ratio Glucose Calcium Phosphorus Magnesium Heparin-induced Plt Ab POC Glucose 228 H 147 H Crossmatch 06/11/18 06/12/18 06/12/18 23:34 04:00 04:00 WBC 7.6 Corrected WBC RBC 3.04 L Hgb 9.0 L Hct 28.3 L MCV 93.1 MCH 29.6 MCHC 31.8 L RDW 17.9 H RDW Differential 54.8 H Plt Count 39 L* MPV 12.0 Immature Gran % (Auto) 1.600 H Neut % (Auto) 77.5 H Lymph % (Auto) 17.4 L [place] % (Auto) 2.3 Eos % (Auto) 0.7 Baso % (Auto) 0.5 Absolute Neuts (auto) 5.9 Absolute Lymphs (auto) 1.31 Total Counted Not Reportable Neutrophils % (Manual) Band Neutrophils % Lymphocytes % (Manual) Monocytes % (Manual) Eosinophils % (Manual) Metamyelocytes % Nucleated RBC % 4.3 Nucleated RBCs/100 WBC Differential Comment SCAN Diff Path Review May foll Platelet Estimate MKD DEC Plt Morphology Comment Polychromasia 2+ Hypochromasia 1+ Anisocytosis 1+ Microcytosis 1+ Absolute Retic 0.33 Haptoglobin Sodium 154 H Potassium 3.6 Chloride 128 H* Carbon Dioxide 18.0 L Anion Gap 8 BUN 57 H Creatinine 1.21 Estim Creat Clear Calc 45.40 Est GFR (MDRD) Af Amer 75 Est GFR (MDRD) Non-Af 62 BUN/Creatinine Ratio 47.1 H Glucose 179 H Calcium 8.3 L Phosphorus 3.3 Magnesium 2.0 Heparin-induced Plt Ab POC Glucose 176 H Crossmatch 06/12/18 05:05 WBC Corrected WBC RBC Hgb Hct MCV MCH MCHC RDW RDW Differential Plt Count MPV Immature Gran % (Auto) Neut % (Auto) Lymph % (Auto) [place] % (Auto) Eos % (Auto) Baso % (Auto) Absolute Neuts (auto) Absolute Lymphs (auto) Total Counted Neutrophils % (Manual) Band Neutrophils % Lymphocytes % (Manual) Monocytes % (Manual) Eosinophils % (Manual) Metamyelocytes % Nucleated RBC % Nucleated RBCs/100 WBC Differential Comment Diff Path Review Platelet Estimate Plt Morphology Comment Polychromasia Hypochromasia Anisocytosis Microcytosis Absolute Retic Haptoglobin Sodium Potassium Chloride Carbon Dioxide Anion Gap BUN Creatinine Estim Creat Clear Calc Est GFR (MDRD) Af Amer Est GFR (MDRD) Non-Af BUN/Creatinine Ratio Glucose Calcium Phosphorus Magnesium Heparin-induced Plt Ab POC Glucose 155 H Crossmatch Microbiology 06/06/18 11:50 Blood Culture (Wb) - Anticubital Left Blood Culture - Final No growth in 5 days. 06/06/18 12:00 Blood Culture (Wb) - Right Wrist Blood Culture - Final No growth in 5 days. 06/10/18 14:54 Urine, Nephrostomy Urine Culture - Preliminary Culture exhibits no growth. Clinical Impression(s) from Imaging Studies Brain CT 06/02/18 01:25 IMPRESSION: No acute findings. Individualized dose optimization techniques were used for this CT. at 0159 Reported and signed by: Geoff Joaquin MD Electronically Signed: Geoff Joaquin, at 1:58 EST Tel , Service support , Cervical Spine CT 06/02/18 01:25 IMPRESSION: No fracture or dislocation of the cervical spine. Individualized dose optimization techniques were used for this CT. at 0206 Reported and signed by: Geoff Joaquin MD Electronically Signed: Geoff Joaquin, at 2:05 EST Tel , Service support , Chest X-Ray 06/02/18 01:35 IMPRESSION: Low lung volumes with resultant hypoventilatory changes. No definite pneumonia or edema. Interval sternotomy probably for heart valve replacement. at 0154 Reported and signed by: Geoff Joaquin MD Electronically Signed: Geoff Joaquin, at 1:53 EST Tel , Service support , Lung Scan-VQ NM 06/02/18 13:55 IMPRESSION: Low quality VQ scan, most consistent with low probability of pulmonary embolism. Electronically Signed: Kenny Greene MD at 16:31 EST , Service support , Chest X-Ray 06/02/18 14:28 IMPRESSION: Moderate right pleural effusion with overlying atelectasis. Electronically Signed: Juan Ruiz, at 15:40 EST Tel , Service support , Chest CT 06/02/18 21:14 IMPRESSION: Small bilateral pleural effusions with overlying atelectasis. Sclerotic osseous lesions which are suspicious for metastasis. Electronically Signed: Juan Ruiz, at 22:14 EST Tel , Service support , Chest X-Ray 06/02/18 22:26 IMPRESSION: Mild left basilar atelectasis status post endotracheal tube placement Electronically Signed: Norbert Snyder MD at 23:18 EST , Service support , Abdomen CT 06/04/18 12:33 IMPRESSION: Bilateral hydronephrosis right greater than left with bilateral hydroureter. Diffusely thickened bladder wall. Electronically Signed: Javier Unger, at 15:28 EST , Service support , Nephrostomy Tube Change 06/05/18 07:41 IMPRESSION: 1. The percutaneous right nephrostomy catheter is in good position with the pigtail portion located in the right renal pelvis. 2. The conscious sedation protocol was followed. Electronically Signed: Javier Cornel, at 14:33 EST , Service support , Nephrostomy Tube Change 06/09/18 08:39 IMPRESSION: 1. The percutaneous left nephrostomy catheter is in good position with the pigtail portion located in the left renal pelvis. Electronically Signed: Javier Cornel, at 8:16 EDT , Service support , Chest X-Ray 06/11/18 08:40 IMPRESSION: The support tubes are in good position. Findings suggest small bilateral pleural effusions with bibasilar atelectasis. Electronically Signed: Javier Cornel, at 13:01 EDT , Service support , Medical Necessity - Tobacco Use Smoking Status: Former smoker Assessment/Plan All Active Problems (Last Reviewed 06/05/18 @ 07:40 by Dangelo Alvarado MD) Atrial fibrillation and flutter (Acute) Fever (Acute) Anemia (Acute) Thrombocytopenia (Acute) Bilateral hydronephrosis (Acute) DIC syndrome (Acute) RECOMMENDATIONS: 1. Goals of care discussion. 2. Continue antimicrobials per infectious diseases recommendations 3. Continue Levophed in an attempt to maintain a mean arterial pressure at or above 65 mmHg. 4. Continue tube feeds and free water flushes 5. Continue rate/rhythm control strategy per cardiology recommendations 6. Continue twice daily PPI therapy IMPRESSIONS: 1. Acute hypoxemic respiratory failure The exact etiology for the patient's clinical decompensation is unclear. However, the patient was noted to be tachycardic at the time when he was initially beginning to decompensate. It is unclear whether this was atrial fibrillation or a sinus tachycardia. Given that the patient has paroxysmal atrial fibrillation and underlying valvular heart disease, it is possible that his decompensation may have been heart rate related. In addition, increased metabolic demands from the patient's sepsis and fevers also likely contributed. He is chronically anticoagulated with Eliquis on an outpatient basis. The patient's CT chest only revealed evidence of small bilateral pleural effusions without focal infiltrates. His FiO2 was able to be quickly weaned. At this time, the patient significantly volume overloaded state will make it a significant barrier to him being weaned from mechanical ventilation. 2. Severe sepsis with evidence of bilateral hydronephrosis/hydroureter The patient appears to be septic from a urinary source of infection. CT abdomen did reveal evidence of bilateral hydronephrosis, for which the patient underwent bilateral percutaneous nephrostomy tube placement. Antibiotics will be continued per infectious diseases recommendations. 3. Paroxysmal atrial fibrillation with RVR/history of aortic valve replacement Defer management of rate/rhythm control strategy to cardiology. 4. Anemia secondary to upper GI hemorrhage/thrombocytopenia secondary to DIC The patient does have known normocytic anemia, which appears to have worsened over the course of this hospital stay. The patient did require eventual transfusion of packed red blood cells. Upper endoscopy performed at the bedside did reveal evidence of GI ulcers. However, there was no active bleeding. This will require the permanent discontinuation of the patient's systemic anticoagulation. He will be continued on twice daily PPI therapy and monitored for any ongoing blood loss. The patient has also developed worsening thrombocytopenia, which following workup, appears to be related to DIC, likely secondary to the patient's sepsis syndrome. 5. Metastatic prostate cancer/anemia/chronic kidney disease/hypertension/hyperlipidemia/depression/generalized deconditioning and debility Complicates care, management, recovery and prognosis. Likely okay to continue home medications. Physical therapy to once again work with patient once medically stabilized. 6. CODE STATUS Discussed with the patient's family. They are wishing to pursue DNR CCA. They do not wish for the patient to receive any additional blood products at this time. TIME: 40 minutes of critical care time, independent of procedures, was spent addressing the patient's acute hypoxemic respiratory failure, severe sepsis, paroxysmal atrial fibrillation with a rapid ventricular rate, metastatic prostate cancer, anemia, upper gastrointestinal bleed, DIC, review of all data and collaboration with the care team. ([id number]) Code Visit [id number]: [id number] Critical care first hour
--- NOTE | 2018-06-12 06:16 | PN_ITS ---
Subjective: The patient was seen and examined at the bedside this morning. Events from the last 24 hours have been reviewed. The patient remains febrile this morning. FiO2 requirement remains stable at 30%. The patient is still bleeding from his [place] and nephrostomy tube sites. Hemoglobin is stable this morning at 9.0 g/dL. Platelet count is relatively stable at 39,000. Sodium and chloride levels remain elevated. Creatinine has normalized. The patient is now documented to be overall net +24 L for the admission. He remains on Levophed at 7 mcg. Precedex is currently infusing at 0.8. The patient once again failed his spontaneous breathing trial this morning due to the development of severe tachypnea. Objective: The patient's most recent lab work, culture data and imaging studies have all been personally reviewed. Surface echocardiogram revealed normal LV size and function with an ejection fraction of 65% and stage I diastolic dysfunction. Pulmonary artery systolic pressure was estimated to be 40 mmHg. VQ scan completed on June 02 was noted to be a low quality VQ scan, but was reported to be most consistent with low probability for PE. CT chest dated June 02 revealed small bilateral pleural effusions without focal infiltrates. CT abdomen revealed bilateral hydronephrosis along with bilateral hydroureter. Urine culture dated June 02 and June 03 both revealed Enterococcus faecalis. General: - - Will still arouse to verbal stimulation but appears quite ill and fatigued in appearance. Remains intubated and mechanically ventilated. HEENT: Atraumatic, PERRLA, Normocephalic Oral: No Gingival or Mucosal Lesions/ Ulcerations, - - Endotracheal and OG tubes remain in place Neck: Supple, No Nodes, Trachea Midline Lungs: No rhonchi, No wheeze, Diminished, Tachypneic Cardiovascular: Regular rate, Regular Rhythm, Normal S1, Normal S2, Murmur, - - Remains in normal sinus rhythm Abdomen: Bowel Sounds Present, Soft, Non Tender, - - Bilateral nephrostomy tubes remain in place Extremities: - - Diffuse anasarca Skin: - - No significant change from previous Musculoskeletal: Cachexia Lymphatic: No Cervical, Supraclavicular, or Inguinal Adenopathy Neurological: - - No focal neurological deficits Psych/Mental Status: Flat Affect Vital Signs Temp Pulse Resp BP Pulse Ox 38.5 C H 64 63 H 104/51 L 99 06/12/18 02:00 06/12/18 04:59 06/12/18 05:33 06/12/18 03:15 06/12/18 04:59 Oxygen Flow Rate (L/min) [5] 15 Oxygen Flow Rate (L/min) [4] 15 Oxygen Flow Rate (L/min) [3] 15 Oxygen Flow Rate (L/min) [2] 15 Oxygen Flow Rate (L/min) [1 ( 15 Initial Baseline)] Oxygen Flow Rate (L/min) 2 Oxygen Delivery Method [5] Ambu-Bag Oxygen Delivery Method [4] Ambu-Bag Oxygen Delivery Method [3] Ambu-Bag Oxygen Delivery Method [2] Room Air Oxygen Delivery Method [1 ( Ambu-Bag Initial Baseline)] Oxygen Delivery Method Mechanical Ventilator Weight: 194 lb 14.218 oz Body Mass Index (BMI) 27.1 Finger Stick Blood Glucose 202 Intake and Output for Last 24 Hours 06/10/18 06/11/18 06/12/18 23:59 23:59 23:59 Intake Total 4836.7 / 4836.7 5005.8 / 5005.8 787 / 787 Output Total 1955 / 1955 1550 / 1550 200 / 200 Balance 2881.7 / 2881.7 3455.8 / 3455.8 587 / 587 Labs (Last 48 Hours) 06/06/18 06/07/18 06/07/18 14:00 03:50 06:50 WBC Corrected WBC RBC Hgb Hct MCV MCH MCHC RDW RDW Differential Plt Count MPV Immature Gran % (Auto) Neut % (Auto) Lymph % (Auto) Emmet % (Auto) Eos % (Auto) Baso % (Auto) Absolute Neuts (auto) Absolute Lymphs (auto) Total Counted Neutrophils % (Manual) Band Neutrophils % Lymphocytes % (Manual) Monocytes % (Manual) Eosinophils % (Manual) Metamyelocytes % Nucleated RBC % Nucleated RBCs/100 WBC Differential Comment Diff Path Review Reviewed Reviewed Platelet Estimate Plt Morphology Comment Polychromasia Hypochromasia Anisocytosis Microcytosis Absolute Retic Haptoglobin Sodium Potassium Chloride Carbon Dioxide Anion Gap BUN Creatinine Estim Creat Clear Calc Est GFR (MDRD) Af Amer Est GFR (MDRD) Non-Af BUN/Creatinine Ratio Glucose Calcium Phosphorus Magnesium Heparin-induced Plt Ab 0.138 POC Glucose Crossmatch 06/07/18 06/08/18 06/08/18 14:40 04:45 15:05 WBC Corrected WBC RBC Hgb Hct MCV MCH MCHC RDW RDW Differential Plt Count MPV Immature Gran % (Auto) Neut % (Auto) Lymph % (Auto) Emmet % (Auto) Eos % (Auto) Baso % (Auto) Absolute Neuts (auto) Absolute Lymphs (auto) Total Counted Neutrophils % (Manual) Band Neutrophils % Lymphocytes % (Manual) Monocytes % (Manual) Eosinophils % (Manual) Metamyelocytes % Nucleated RBC % Nucleated RBCs/100 WBC Differential Comment Diff Path Review Reviewed Reviewed Reviewed Platelet Estimate Plt Morphology Comment Polychromasia Hypochromasia Anisocytosis Microcytosis Absolute Retic Haptoglobin Sodium Potassium Chloride Carbon Dioxide Anion Gap BUN Creatinine Estim Creat Clear Calc Est GFR (MDRD) Af Amer Est GFR (MDRD) Non-Af BUN/Creatinine Ratio Glucose Calcium Phosphorus Magnesium Heparin-induced Plt Ab POC Glucose Crossmatch 06/09/18 06/09/18 06/09/18 03:05 03:05 05:30 WBC Corrected WBC RBC Hgb Hct MCV MCH MCHC RDW RDW Differential Plt Count MPV Immature Gran % (Auto) Neut % (Auto) Lymph % (Auto) Emmet % (Auto) Eos % (Auto) Baso % (Auto) Absolute Neuts (auto) Absolute Lymphs (auto) Total Counted Neutrophils % (Manual) Band Neutrophils % Lymphocytes % (Manual) Monocytes % (Manual) Eosinophils % (Manual) Metamyelocytes % Nucleated RBC % Nucleated RBCs/100 WBC Differential Comment Diff Path Review Reviewed Platelet Estimate Plt Morphology Comment Polychromasia Hypochromasia Anisocytosis Microcytosis Absolute Retic Haptoglobin 132 Sodium Potassium Chloride Carbon Dioxide Anion Gap BUN Creatinine Estim Creat Clear Calc Est GFR (MDRD) Af Amer Est GFR (MDRD) Non-Af BUN/Creatinine Ratio Glucose Calcium Phosphorus Magnesium Heparin-induced Plt Ab POC Glucose Crossmatch See Detail 06/09/18 06/09/18 06/10/18 12:30 22:40 03:45 WBC [employer] Corrected WBC 8.5 RBC 3.07 L Hgb 9.2 L Hct 28.5 L MCV 92.8 MCH 30.0 MCHC 32.3 RDW 16.2 H RDW Differential 51.5 H Plt Count 44 L* MPV 11.0 Immature Gran % (Auto) Neut % (Auto) Not Reportable Lymph % (Auto) Emmet % (Auto) Eos % (Auto) Baso % (Auto) Absolute Neuts (auto) Not Reportable Absolute Lymphs (auto) Total Counted 100 Neutrophils % (Manual) 79 H Band Neutrophils % 4 Lymphocytes % (Manual) 12 L Monocytes % (Manual) 2 Eosinophils % (Manual) 2 Metamyelocytes % 1 Nucleated RBC % Nucleated RBCs/100 WBC 23 H Differential Comment Diff Path Review Reviewed Reviewed Reviewed Platelet Estimate MKD DEC Plt Morphology Comment Polychromasia Hypochromasia 1+ Anisocytosis 2+ Microcytosis Absolute Retic Haptoglobin Sodium Potassium Chloride Carbon Dioxide Anion Gap BUN Creatinine Estim Creat Clear Calc Est GFR (MDRD) Af Amer Est GFR (MDRD) Non-Af BUN/Creatinine Ratio Glucose Calcium Phosphorus Magnesium Heparin-induced Plt Ab POC Glucose Crossmatch 06/10/18 06/10/18 06/10/18 03:45 11:23 14:20 WBC 9.8 Corrected WBC RBC 2.52 L Hgb 7.5 L Hct 23.3 L MCV 92.5 MCH 29.8 MCHC 32.2 RDW 16.7 H RDW Differential 53.2 H Plt Count 41 L* MPV 10.2 Immature Gran % (Auto) Neut % (Auto) Lymph % (Auto) Emmet % (Auto) Eos % (Auto) Baso % (Auto) Absolute Neuts (auto) Absolute Lymphs (auto) Total Counted Neutrophils % (Manual) Band Neutrophils % Lymphocytes % (Manual) Monocytes % (Manual) Eosinophils % (Manual) Metamyelocytes % Nucleated RBC % Nucleated RBCs/100 WBC Differential Comment Diff Path Review Reviewed Platelet Estimate Plt Morphology Comment Polychromasia Hypochromasia Anisocytosis Microcytosis Absolute Retic Haptoglobin Sodium Potassium Chloride Carbon Dioxide Anion Gap BUN Creatinine Estim Creat Clear Calc Est GFR (MDRD) Af Amer Est GFR (MDRD) Non-Af BUN/Creatinine Ratio Glucose Calcium Phosphorus Magnesium 2.6 Heparin-induced Plt Ab POC Glucose 280 H Crossmatch 06/10/18 06/10/18 06/11/18 16:32 22:20 00:27 WBC Corrected WBC RBC Hgb 9.2 L Hct 28.7 L MCV MCH MCHC RDW RDW Differential Plt Count MPV Immature Gran % (Auto) Neut % (Auto) Lymph % (Auto) Emmet % (Auto) Eos % (Auto) Baso % (Auto) Absolute Neuts (auto) Absolute Lymphs (auto) Total Counted Neutrophils % (Manual) Band Neutrophils % Lymphocytes % (Manual) Monocytes % (Manual) Eosinophils % (Manual) Metamyelocytes % Nucleated RBC % Nucleated RBCs/100 WBC Differential Comment Diff Path Review Platelet Estimate Plt Morphology Comment Polychromasia Hypochromasia Anisocytosis Microcytosis Absolute Retic Haptoglobin Sodium Potassium Chloride Carbon Dioxide Anion Gap BUN Creatinine Estim Creat Clear Calc Est GFR (MDRD) Af Amer Est GFR (MDRD) Non-Af BUN/Creatinine Ratio Glucose Calcium Phosphorus Magnesium Heparin-induced Plt Ab POC Glucose 210 H 226 H Crossmatch 06/11/18 06/11/18 06/11/18 04:10 04:10 05:37 WBC 8.3 Corrected WBC RBC 3.26 L Hgb 9.7 L Hct 30.2 L MCV 92.6 MCH 29.8 MCHC 32.1 RDW 16.6 H RDW Differential 52.7 H Plt Count 30 L* MPV Immature Gran % (Auto) 2.000 H Neut % (Auto) 82.7 H Lymph % (Auto) 11.4 L Emmet % (Auto) 2.5 Eos % (Auto) 0.8 Baso % (Auto) 0.6 Absolute Neuts (auto) 6.9 Absolute Lymphs (auto) 0.95 Total Counted Not Reportable Neutrophils % (Manual) Band Neutrophils % Lymphocytes % (Manual) Monocytes % (Manual) Eosinophils % (Manual) Metamyelocytes % Nucleated RBC % 11.3 H Nucleated RBCs/100 WBC Differential Comment SCAN Diff Path Review Reviewed Platelet Estimate MKD DEC Plt Morphology Comment LARGE Polychromasia 1+ Hypochromasia 1+ Anisocytosis 1+ Microcytosis 1+ Absolute Retic 0.94 Haptoglobin Sodium 156 H Potassium 2.9 L Chloride 126 H Carbon Dioxide 19.0 L Anion Gap 11 BUN 75 H Creatinine 1.67 H Estim Creat Clear Calc 32.90 Est GFR (MDRD) Af Amer 51 L Est GFR (MDRD) Non-Af 42 L BUN/Creatinine Ratio 44.9 H Glucose 248 H Calcium 8.3 L Phosphorus Magnesium Heparin-induced Plt Ab POC Glucose 230 H Crossmatch 06/11/18 06/11/18 06/11/18 12:08 17:25 18:16 WBC Corrected WBC RBC Hgb Hct MCV MCH MCHC RDW RDW Differential Plt Count MPV Immature Gran % (Auto) Neut % (Auto) Lymph % (Auto) Emmet % (Auto) Eos % (Auto) Baso % (Auto) Absolute Neuts (auto) Absolute Lymphs (auto) Total Counted Neutrophils % (Manual) Band Neutrophils % Lymphocytes % (Manual) Monocytes % (Manual) Eosinophils % (Manual) Metamyelocytes % Nucleated RBC % Nucleated RBCs/100 WBC Differential Comment Diff Path Review Platelet Estimate Plt Morphology Comment Polychromasia Hypochromasia Anisocytosis Microcytosis Absolute Retic Haptoglobin Sodium Potassium 3.3 L Chloride Carbon Dioxide Anion Gap BUN Creatinine Estim Creat Clear Calc Est GFR (MDRD) Af Amer Est GFR (MDRD) Non-Af BUN/Creatinine Ratio Glucose Calcium Phosphorus Magnesium Heparin-induced Plt Ab POC Glucose 228 H 147 H Crossmatch 06/11/18 06/12/18 06/12/18 23:34 04:00 04:00 WBC 7.6 Corrected WBC RBC 3.04 L Hgb 9.0 L Hct 28.3 L MCV 93.1 MCH 29.6 MCHC 31.8 L RDW 17.9 H RDW Differential 54.8 H Plt Count 39 L* MPV 12.0 Immature Gran % (Auto) 1.600 H Neut % (Auto) 77.5 H Lymph % (Auto) 17.4 L Emmet % (Auto) 2.3 Eos % (Auto) 0.7 Baso % (Auto) 0.5 Absolute Neuts (auto) 5.9 Absolute Lymphs (auto) 1.31 Total Counted Not Reportable Neutrophils % (Manual) Band Neutrophils % Lymphocytes % (Manual) Monocytes % (Manual) Eosinophils % (Manual) Metamyelocytes % Nucleated RBC % 4.3 Nucleated RBCs/100 WBC Differential Comment SCAN Diff Path Review May foll Platelet Estimate MKD DEC Plt Morphology Comment Polychromasia 2+ Hypochromasia 1+ Anisocytosis 1+ Microcytosis 1+ Absolute Retic 0.33 Haptoglobin Sodium 154 H Potassium 3.6 Chloride 128 H* Carbon Dioxide 18.0 L Anion Gap 8 BUN 57 H Creatinine 1.21 Estim Creat Clear Calc 45.40 Est GFR (MDRD) Af Amer 75 Est GFR (MDRD) Non-Af 62 BUN/Creatinine Ratio 47.1 H Glucose 179 H Calcium 8.3 L Phosphorus 3.3 Magnesium 2.0 Heparin-induced Plt Ab POC Glucose 176 H Crossmatch 06/12/18 05:05 WBC Corrected WBC RBC Hgb Hct MCV MCH MCHC RDW RDW Differential Plt Count MPV Immature Gran % (Auto) Neut % (Auto) Lymph % (Auto) Emmet % (Auto) Eos % (Auto) Baso % (Auto) Absolute Neuts (auto) Absolute Lymphs (auto) Total Counted Neutrophils % (Manual) Band Neutrophils % Lymphocytes % (Manual) Monocytes % (Manual) Eosinophils % (Manual) Metamyelocytes % Nucleated RBC % Nucleated RBCs/100 WBC Differential Comment Diff Path Review Platelet Estimate Plt Morphology Comment Polychromasia Hypochromasia Anisocytosis Microcytosis Absolute Retic Haptoglobin Sodium Potassium Chloride Carbon Dioxide Anion Gap BUN Creatinine Estim Creat Clear Calc Est GFR (MDRD) Af Amer Est GFR (MDRD) Non-Af BUN/Creatinine Ratio Glucose Calcium Phosphorus Magnesium Heparin-induced Plt Ab POC Glucose 155 H Crossmatch Microbiology 06/06/18 11:50 Blood Culture (Wb) - Anticubital Left Blood Culture - Final No growth in 5 days. 06/06/18 12:00 Blood Culture (Wb) - Right Wrist Blood Culture - Final No growth in 5 days. 06/10/18 14:54 Urine, Nephrostomy Urine Culture - Preliminary Culture exhibits no growth. Clinical Impression(s) from Imaging Studies Brain CT 06/02/18 01:25 IMPRESSION: No acute findings. Individualized dose optimization techniques were used for this CT. at 0159 Reported and signed by: Geoff Joaquin MD Electronically Signed: Geoff Joaquin, at 1:58 EST Tel , Service support , Cervical Spine CT 06/02/18 01:25 IMPRESSION: No fracture or dislocation of the cervical spine. Individualized dose optimization techniques were used for this CT. at 0206 Reported and signed by: Geoff Joaquin MD Electronically Signed: Geoff Joaquin, at 2:05 EST Tel , Service support , Chest X-Ray 06/02/18 01:35 IMPRESSION: Low lung volumes with resultant hypoventilatory changes. No definite pneumonia or edema. Interval sternotomy probably for heart valve replacement. at 0154 Reported and signed by: Geoff Joaquin MD Electronically Signed: Geoff Joaquin, at 1:53 EST Tel , Service support , Lung Scan-VQ NM 06/02/18 13:55 IMPRESSION: Low quality VQ scan, most consistent with low probability of pulmonary embolism. Electronically Signed: Kenny Greene MD at 16:31 EST , Service support , Chest X-Ray 06/02/18 14:28 IMPRESSION: Moderate right pleural effusion with overlying atelectasis. Electronically Signed: Juan Ruiz, at 15:40 EST Tel , Service support , Chest CT 06/02/18 21:14 IMPRESSION: Small bilateral pleural effusions with overlying atelectasis. Sclerotic osseous lesions which are suspicious for metastasis. Electronically Signed: Juan Ruiz, at 22:14 EST Tel , Service support , Chest X-Ray 06/02/18 22:26 IMPRESSION: Mild left basilar atelectasis status post endotracheal tube placement Electronically Signed: Norbert Snyder MD at 23:18 EST , Service support , Abdomen CT 06/04/18 12:33 IMPRESSION: Bilateral hydronephrosis right greater than left with bilateral hydroureter. Diffusely thickened bladder wall. Electronically Signed: Javier Unger, at 15:28 EST , Service support , Nephrostomy Tube Change 06/05/18 07:41 IMPRESSION: 1. The percutaneous right nephrostomy catheter is in good position with the pigtail portion located in the right renal pelvis. 2. The conscious sedation protocol was followed. Electronically Signed: Javier Cornel, at 14:33 EST , Service support , Nephrostomy Tube Change 06/09/18 08:39 IMPRESSION: 1. The percutaneous left nephrostomy catheter is in good position with the pigtail portion located in the left renal pelvis. Electronically Signed: Javier Cornel, at 8:16 EDT , Service support , Chest X-Ray 06/11/18 08:40 IMPRESSION: The support tubes are in good position. Findings suggest small bilateral pleural effusions with bibasilar atelectasis. Electronically Signed: Javier Cornel, at 13:01 EDT , Service support , Medical Necessity - Tobacco Use Smoking Status: Former smoker Assessment/Plan All Active Problems (Last Reviewed 06/05/18 @ 07:40 by Dangelo Alvarado MD) Atrial fibrillation and flutter (Acute) Fever (Acute) Anemia (Acute) Thrombocytopenia (Acute) Bilateral hydronephrosis (Acute) DIC syndrome (Acute) RECOMMENDATIONS: 1. Goals of care discussion. 2. Continue antimicrobials per infectious diseases recommendations 3. Continue Levophed in an attempt to maintain a mean arterial pressure at or above 65 mmHg. 4. Continue tube feeds and free water flushes 5. Continue rate/rhythm control strategy per cardiology recommendations 6. Continue twice daily PPI therapy IMPRESSIONS: 1. Acute hypoxemic respiratory failure The exact etiology for the patient's clinical decompensation is unclear. However, the patient was noted to be tachycardic at the time when he was initially beginning to decompensate. It is unclear whether this was atrial fibrillation or a sinus tachycardia. Given that the patient has paroxysmal atrial fibrillation and underlying valvular heart disease, it is possible that his decompensation may have been heart rate related. In addition, increased metabolic demands from the patient's sepsis and fevers also likely contributed. He is chronically anticoagulated with Eliquis on an outpatient basis. The patient's CT chest only revealed evidence of small bilateral pleural effusions without focal infiltrates. His FiO2 was able to be quickly weaned. At this time, the patient significantly volume overloaded state will make it a significant barrier to him being weaned from mechanical ventilation. 2. Severe sepsis with evidence of bilateral hydronephrosis/hydroureter The patient appears to be septic from a urinary source of infection. CT abdomen did reveal evidence of bilateral hydronephrosis, for which the patient underwent bilateral percutaneous nephrostomy tube placement. Antibiotics will be continued per infectious diseases recommendations. 3. Paroxysmal atrial fibrillation with RVR/history of aortic valve replacement Defer management of rate/rhythm control strategy to cardiology. 4. Anemia secondary to upper GI hemorrhage/thrombocytopenia secondary to DIC The patient does have known normocytic anemia, which appears to have worsened over the course of this hospital stay. The patient did require eventual transfusion of packed red blood cells. Upper endoscopy performed at the bedside did reveal evidence of GI ulcers. However, there was no active bleeding. This will require the permanent discontinuation of the patient's systemic anticoagulation. He will be continued on twice daily PPI therapy and monitored for any ongoing blood loss. The patient has also developed worsening thrombocytopenia, which following workup, appears to be related to DIC, likely secondary to the patient's sepsis syndrome. 5. Metastatic prostate cancer/anemia/chronic kidney disease/hypertension/hyperlipidemia/depression/generalized deconditioning and debility Complicates care, management, recovery and prognosis. Likely okay to continue home medications. Physical therapy to once again work with patient once medically stabilized. 6. CODE STATUS Discussed with the patient's family. They are wishing to pursue DNR CCA. They do not wish for the patient to receive any additional blood products at this time. TIME: 40 minutes of critical care time, independent of procedures, was spent addressing the patient's acute hypoxemic respiratory failure, severe sepsis, paroxysmal atrial fibrillation with a rapid ventricular rate, metastatic prostate cancer, anemia, upper gastrointestinal bleed, DIC, review of all data and collaboration with the care team. ([id number]) Code Visit [id number]: [id number] Critical care first hour
--- NOTE | 2018-06-12 07:12 | PCM.PROGNOTE ---
Patient Problems: Active and Suspected Problems (Last Reviewed 06/05/18 @ 07:40 by Dangelo Alvarado MD) Atrial fibrillation and flutter (Acute) Fever (Acute) Anemia (Acute) Thrombocytopenia (Acute) Bilateral hydronephrosis (Acute) DIC syndrome (Acute) Subjective: Day 11 on the ventilator Day #11 Zosyn T-max is 101.3 over the past 24 hours. Blood pressure is currently 117/46 on 7 mcg of Levophed. He is maintaining an oxygen saturation of 100% on a 30% FiO2. Heart rate is within normal limits. Fluid balance since admission is +24,096. All lab was personally reviewed. White blood cell count today is 7.6 with 77% neutrophils. Hemoglobin is stable at 9.0 and platelets are holding at 39,000. Sodium is down to 154 but the chloride is 128 today and the CO2 is 18. BUN and creatinine continue to improve and the BUN is 57 with a creatinine of 1.21. Phosphorus and magnesium are within normal limits. The last 3 blood sugars are all less than 180. Culture from the nephrostomy tube taken on 06/10/2018 had no growth. Failed SBT yesterday due to increased RR....he is very weak - Physical Exam General: - - awakens when you call his name. Still squeezes my hand on command and he tries to talk with me denies pain HEENT: Atraumatic, PERRLA, EOMI, Normocephalic Oral: Dry Mucosa Neck: No Nuchal Rigidity, Trachea Midline Lungs: Clear to auscultation, Diminished Cardiovascular: Regular rate, Regular Rhythm, Normal S1, Normal S2, No rub noted, No Gallop Abdomen: Bowel Sounds Present, Soft, Non Tender, Non-Distended, - - there is dark blood in both nephrostomy tubes and in the crump bag Extremities: No clubbing, Edema, - - toenails are still cyanotic, the feet and the distal LE's are cold to touch Skin: - - has multiple bruises due to the DIC Neurological: Cranial nerves II-XII grossly intact, Neuro grossly intact Vital Signs Temp Pulse Resp BP Pulse Ox 100.3 F H 61 17 117/46 L 100 06/12/18 06:00 06/12/18 06:30 06/12/18 06:30 06/12/18 06:00 06/12/18 06:30 Oxygen Flow Rate (L/min) [5] 15 Oxygen Flow Rate (L/min) [4] 15 Oxygen Flow Rate (L/min) [3] 15 Oxygen Flow Rate (L/min) [2] 15 Oxygen Flow Rate (L/min) [1 ( 15 Initial Baseline)] Oxygen Flow Rate (L/min) 2 Oxygen Delivery Method [5] Ambu-Bag Oxygen Delivery Method [4] Ambu-Bag Oxygen Delivery Method [3] Ambu-Bag Oxygen Delivery Method [2] Room Air Oxygen Delivery Method [1 ( Ambu-Bag Initial Baseline)] Oxygen Delivery Method Mechanical Ventilator Weight: 194 lb 14.218 oz Body Mass Index (BMI) 27.1 Finger Stick Blood Glucose 202 Intake and Output for Last 24 Hours 06/10/18 06/11/18 06/12/18 23:59 23:59 23:59 Intake Total 4836.7 / 4836.7 5005.8 / 5005.8 787 / 787 Output Total 1955 / 1955 1550 / 1550 200 / 200 Balance 2881.7 / 2881.7 3455.8 / 3455.8 587 / 587 Microbiology Past 72 Hours 06/06/18 11:50 Blood Culture - Final Blood Culture (Wb) - Anticubital Left No growth in 5 days. 06/06/18 12:00 Blood Culture - Final Blood Culture (Wb) - Right Wrist No growth in 5 days. 06/10/18 14:54 Urine Culture - Preliminary Urine, Nephrostomy Culture exhibits no growth. 06/06/18 11:00 Urine Culture - Final Urine, Nephrostomy Culture exhibits no growth. 06/03/18 14:55 Blood Culture - Final Blood Culture (Wb) - Left Wrist No growth in 5 days. 06/03/18 15:05 Blood Culture - Final Blood Culture (Wb) - Anticubital Right No growth in 5 days. Laboratory Tests Past 24 Hrs 06/10/18 06/10/18 06/11/18 03:45 14:20 04:10 WBC RBC Hgb Hct MCV MCH MCHC RDW RDW Differential Plt Count MPV Immature Gran % (Auto) Neut % (Auto) Lymph % (Auto) [place] % (Auto) Eos % (Auto) Baso % (Auto) Absolute Neuts (auto) Absolute Lymphs (auto) Total Counted Nucleated RBC % 11.3 H Differential Comment Diff Path Review Reviewed Reviewed Reviewed Platelet Estimate Polychromasia Hypochromasia Anisocytosis Microcytosis Absolute Retic 0.94 Sodium Potassium Chloride Carbon Dioxide Anion Gap BUN Creatinine Estim Creat Clear Calc Est GFR (MDRD) Af Amer Est GFR (MDRD) Non-Af BUN/Creatinine Ratio Glucose Calcium Phosphorus Magnesium 06/11/18 06/12/18 06/12/18 17:25 04:00 04:00 WBC 7.6 RBC 3.04 L Hgb 9.0 L Hct 28.3 L MCV 93.1 MCH 29.6 MCHC 31.8 L RDW 17.9 H RDW Differential 54.8 H Plt Count 39 L* MPV 12.0 Immature Gran % (Auto) 1.600 H Neut % (Auto) 77.5 H Lymph % (Auto) 17.4 L [place] % (Auto) 2.3 Eos % (Auto) 0.7 Baso % (Auto) 0.5 Absolute Neuts (auto) 5.9 Absolute Lymphs (auto) 1.31 Total Counted Not Reportable Nucleated RBC % 4.3 Differential Comment SCAN Diff Path Review May foll Platelet Estimate MKD DEC Polychromasia 2+ Hypochromasia 1+ Anisocytosis 1+ Microcytosis 1+ Absolute Retic 0.33 Sodium 154 H Potassium 3.3 L 3.6 Chloride 128 H* Carbon Dioxide 18.0 L Anion Gap 8 BUN 57 H Creatinine 1.21 Estim Creat Clear Calc 45.40 Est GFR (MDRD) Af Amer 75 Est GFR (MDRD) Non-Af 62 BUN/Creatinine Ratio 47.1 H Glucose 179 H Calcium 8.3 L Phosphorus 3.3 Magnesium 2.0 POC Glucose 06/12/18 06/11/18 06/11/18 05:05 23:34 18:16 POC Glucose 155 H 176 H 147 H 06/11/18 12:08 POC Glucose 228 H Medical Necessity - Tobacco Use Smoking Status: Former smoker Assessment/Plan All Active Problems (Last Reviewed 06/05/18 @ 07:40 by Dangelo Alvarado MD) Atrial fibrillation and flutter (Acute) Fever (Acute) Anemia (Acute) Thrombocytopenia (Acute) Bilateral hydronephrosis (Acute) DIC syndrome (Acute) Day #11 and Zosyn Day #11 ventilator Impressions 1. Acute hypoxemic respiratory failure requiring intubation 2. Septic shock with hypotension requiring pressors secondary to Enterococcus faecalis UTI with pyelonephritis 3. DIC 4. Upper GI bleed secondary to peptic ulcer disease-hemoglobin is now stable 5. Atrial fibrillation/atrial flutter with rapid ventricular response 6. History of bioprosthetic aortic valve 7. Acute urinary tract infection with bilateral hydronephrosis status post right nephrostomy tube on 06/05/2018 and left nephrostomy tube on 06/09/2018 8. Acute renal failure on chronic kidney disease stage III-secondary to bladder outlet obstruction with bilateral hydronephrosis and hydroureter as well as sepsis and dehydration 9. Metabolic acidosis secondary to acute renal failure 10. Hypertension 11. Prostate cancer with metastases to the bone-never treated 12. Bladder outlet obstruction 13. Severe anemia secondary to upper GI bleed, thrombocytopenia and DIC 14. Hypokalemia 15. Hyperlipidemia 16. Depression 17. Moderate malnutrition 18. Hypernatremia 19. Abnormal LFTs-possible liver metastases 20. Elevated troponin likely secondary to demand ischemia from atrial fibrillation with rapid ventricular response 21. Stage I diastolic dysfunction I met with his son Jourdan and Jourdan's Jody and answered their questions. Emil has decided that Preston is not going to survive this illness and he is getting weaker and weaker. He can not come off the vent so would need a trach and then LTAC. He would like to change the code status to DNRCCA.....no more blood products. Cannot do CALI secondary to very low platelets Consult wound care nurse for stage 2 decubitus ulcers on the buttocks Continue Sally Code Visit Inpatient E&M: [id number] [facility] Hosp L3
--- NOTE | 2018-06-12 09:30 | CASEMGMT ---
RN YOLIS Note: participated in interdisciplinary round. Pt remains on ventilator, amiodarone gtt,Presedex gtt, TF @ 50 ml/hr. Continued bleeding from crump and nephrostomy tube sites. PLT count 39,000. Dr. Monaco spoke with son and daughter in law. Code status changed to DNR CCA. Son participates minimally in rounds. Physicians are keeping son current on pt's condition. Son leaves shortly after rounds. RN YOLIS attempted to speak with son to offer support and answer questions but son had left. Aditya NAIRN RN ACM
--- NOTE | 2018-06-12 10:30 | PCM.PN.ID ---
Patient Problems: Active and Suspected Problems (Last Reviewed 06/05/18 @ 07:40 by Dangelo Alvarado MD) Atrial fibrillation and flutter (Acute) Fever (Acute) Anemia (Acute) Thrombocytopenia (Acute) Bilateral hydronephrosis (Acute) DIC syndrome (Acute) Subjective: Awake on vent, continued fever. Changed on DNR-CCA. Family at bedside. - Physical Exam General: - - eyes open Lungs: Diminished Cardiovascular: Regular rate, Regular Rhythm Abdomen: Soft, Non Tender, Non-Distended Extremities: Edema Skin: No rashes Vital Signs Temp Pulse Resp BP Pulse Ox 100.3 F H 64 23 H 119/50 L 100 06/12/18 06:00 06/12/18 08:00 06/12/18 07:00 06/12/18 07:00 06/12/18 07:00 Oxygen Flow Rate (L/min) [5] 15 Oxygen Flow Rate (L/min) [4] 15 Oxygen Flow Rate (L/min) [3] 15 Oxygen Flow Rate (L/min) [2] 15 Oxygen Flow Rate (L/min) [1 ( 15 Initial Baseline)] Oxygen Flow Rate (L/min) 2 Oxygen Delivery Method [5] Ambu-Bag Oxygen Delivery Method [4] Ambu-Bag Oxygen Delivery Method [3] Ambu-Bag Oxygen Delivery Method [2] Room Air Oxygen Delivery Method [1 ( Ambu-Bag Initial Baseline)] Oxygen Delivery Method Mechanical Ventilator Weight: 88.4 kg Body Mass Index (BMI) 27.1 Finger Stick Blood Glucose 202 Intake and Output for Last 24 Hours 06/10/18 06/11/18 06/12/18 23:59 23:59 23:59 Intake Total 4836.7 / 4836.7 5005.8 / 5005.8 787 / 787 Output Total 1955 / 1955 1550 / 1550 200 / 200 Balance 2881.7 / 2881.7 3455.8 / 3455.8 587 / 587 Microbiology Past 72 Hours 06/06/18 11:50 Blood Culture - Final Blood Culture (Wb) - Anticubital Left No growth in 5 days. 06/06/18 12:00 Blood Culture - Final Blood Culture (Wb) - Right Wrist No growth in 5 days. 06/10/18 14:54 Urine Culture - Preliminary Urine, Nephrostomy Culture exhibits no growth. 06/06/18 11:00 Urine Culture - Final Urine, Nephrostomy Culture exhibits no growth. 06/03/18 14:55 Blood Culture - Final Blood Culture (Wb) - Left Wrist No growth in 5 days. 06/03/18 15:05 Blood Culture - Final Blood Culture (Wb) - Anticubital Right No growth in 5 days. Laboratory Tests Past 24 Hrs 06/10/18 06/11/18 06/11/18 14:20 04:10 17:25 WBC RBC Hgb Hct MCV MCH MCHC RDW RDW Differential Plt Count MPV Immature Gran % (Auto) Neut % (Auto) Lymph % (Auto) [place] % (Auto) Eos % (Auto) Baso % (Auto) Absolute Neuts (auto) Absolute Lymphs (auto) Total Counted Nucleated RBC % 11.3 H Differential Comment Diff Path Review Reviewed Reviewed Platelet Estimate Polychromasia Hypochromasia Anisocytosis Microcytosis Absolute Retic 0.94 Sodium Potassium 3.3 L Chloride Carbon Dioxide Anion Gap BUN Creatinine Estim Creat Clear Calc Est GFR (MDRD) Af Amer Est GFR (MDRD) Non-Af BUN/Creatinine Ratio Glucose Calcium Phosphorus Magnesium 06/12/18 06/12/18 04:00 04:00 WBC 7.6 RBC 3.04 L Hgb 9.0 L Hct 28.3 L MCV 93.1 MCH 29.6 MCHC 31.8 L RDW 17.9 H RDW Differential 54.8 H Plt Count 39 L* MPV 12.0 Immature Gran % (Auto) 1.600 H Neut % (Auto) 77.5 H Lymph % (Auto) 17.4 L [place] % (Auto) 2.3 Eos % (Auto) 0.7 Baso % (Auto) 0.5 Absolute Neuts (auto) 5.9 Absolute Lymphs (auto) 1.31 Total Counted Not Reportable Nucleated RBC % 4.3 Differential Comment SCAN Diff Path Review May foll Platelet Estimate MKD DEC Polychromasia 2+ Hypochromasia 1+ Anisocytosis 1+ Microcytosis 1+ Absolute Retic 0.33 Sodium 154 H Potassium 3.6 Chloride 128 H* Carbon Dioxide 18.0 L Anion Gap 8 BUN 57 H Creatinine 1.21 Estim Creat Clear Calc 45.40 Est GFR (MDRD) Af Amer 75 Est GFR (MDRD) Non-Af 62 BUN/Creatinine Ratio 47.1 H Glucose 179 H Calcium 8.3 L Phosphorus 3.3 Magnesium 2.0 POC Glucose 06/12/18 06/11/18 06/11/18 05:05 23:34 18:16 POC Glucose 155 H 176 H 147 H 06/11/18 12:08 POC Glucose 228 H Medical Necessity - Tobacco Use Smoking Status: Former smoker Route of nutrition/ use of supplements: [] Nutritional Intake: [] IV Site: [] [place] Catheter: [] - Assessment/Plan Antibiotics: [] Assessment/Plan: [] Active and Suspected Problems (Last Updated 06/02/18 @ 03:12 by Sally Cm MD) Atrial fibrillation and flutter (Acute) Fever (Acute) Anemia (Acute) Thrombocytopenia (Acute) Fever - at this point seems likely due to 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 UA with mild pyuria, Ucx with only small growth of enterococcus. Bcx neg so far. Dr. Alvarado following. R neph tube placed 06/05, L placed 06/09. Wbc normal, but persistent fever. Stopped vanc 06/10. Continue zosyn. CALI if he can become more stable. Repeat bcx now. Will follow, d/w Dr. Nicholson
[2018-06-12] MEDS: Vital AF 1.2 Cal Liquid 1,000 ML 50 ML GT (10:45)
[2018-06-12] MEDS: DULoxetine Hcl 30 MG Capsule PO (11:01)
[2018-06-12] MEDS: Chlorhexidine 15 ML PO ×2 (11:05→21:35)
[2018-06-12 12:56] LABS: Bedside Glucose 163 mg/dL (70-110)
[2018-06-12 14:05] LABS: Pathologist Review Reviewed
--- NOTE | 2018-06-12 15:40 | NURSING ---
wound photo: right medial ankle
--- NOTE | 2018-06-12 15:41 | NURSING ---
wound photo: sacrum
--- NOTE | 2018-06-12 17:15 | PN.CARD_ITS ---
Subjectve: Patient seen and evaluated. He still intubated. Objective: Vital Signs Temp Pulse Resp BP Pulse Ox 101.2 F H 62 33 H 138/101 H 100 06/12/18 14:00 06/12/18 16:45 06/12/18 16:45 06/12/18 15:30 06/12/18 16:45 Oxygen Flow Rate (L/min) [5] 15 Oxygen Flow Rate (L/min) [4] 15 Oxygen Flow Rate (L/min) [3] 15 Oxygen Flow Rate (L/min) [2] 15 Oxygen Flow Rate (L/min) [1 ( 15 Initial Baseline)] Oxygen Flow Rate (L/min) 2 Oxygen Delivery Method [5] Ambu-Bag Oxygen Delivery Method [4] Ambu-Bag Oxygen Delivery Method [3] Ambu-Bag Oxygen Delivery Method [2] Room Air Oxygen Delivery Method [1 ( Ambu-Bag Initial Baseline)] Oxygen Delivery Method Mechanical Ventilator Weight: 194 lb 14.218 oz Body Mass Index (BMI) 27.1 Finger Stick Blood Glucose 202 Intake and Output for Last 24 Hours 06/10/18 06/11/18 06/12/18 23:59 23:59 23:59 Intake Total 4836.7 / 4836.7 5005.8 / 5005.8 2305 / 2305 Output Total 1955 / 1955 1550 / 1550 700 / 700 Balance 2881.7 / 2881.7 3455.8 / 3455.8 1605 / 1605 General: Awake, Alert, Oriented x 3, Ill Appearing HEENT: PERRL, EOMI, Sclera Non Icteric Neck: Supple, Good ROM, No Lymph Node Enlargement Lungs: Diminished Matt Bases Cardiovascular: Regular Rhythm, Normal S1, Normal S2, No Murmurs, No Rubs, No Gallops Vascular: No Carotid Bruits, Normal Femoral Pulses, Normal Radial Pulses, Normal Dorsalis Pedal Pulse, Normal Posterior Tibial Pulses Abdomen: Bowel Sounds Present, Soft, Non Tender, No HSM, No Organomegaly Extremities: No Cyanosis, No Clubbing, No edema Neurological: No Focal Motor or Sensory Deficit 06/11/18 04:10: Nucleated RBC % 11.3 H 06/11/18 17:25: Potassium 3.3 L 06/12/18 04:00: WBC 7.6, RBC 3.04 L, Hgb 9.0 L, Hct 28.3 L, MCV 93.1, MCH 29.6, MCHC 31.8 L, RDW 17.9 H, RDW Differential 54.8 H, Plt Count 39 L*, MPV 12.0, Immature Gran % (Auto) 1.600 H, Neut % (Auto) 77.5 H, Lymph % (Auto) 17.4 L, [place] % (Auto) 2.3, Eos % (Auto) 0.7, Baso % (Auto) 0.5, Absolute Neuts (auto) 5.9, Total Counted Not Reportable, Nucleated RBC % 4.3 06/12/18 04:00: Sodium 154 H, Potassium 3.6, Chloride 128 H*, Carbon Dioxide 18.0 L, Anion Gap 8, BUN 57 H, Creatinine 1.21, Est GFR (MDRD) Af Amer 75, Est GFR (MDRD) Non-Af 62, BUN/Creatinine Ratio 47.1 H, Glucose 179 H, Calcium 8.3 L, Phosphorus 3.3, Magnesium 2.0 Rhythm: EKG: ECHO: Stress Test: Cardiac Cath: PCI: CT Surgery: Holter monitor: EPS: PPM: CXR: Chest CT Scan: Medical Necessity - Tobacco Use Smoking Status: Former smoker Assessment/Plan 1. Atrial fibrillation/flutter The patient has demonstrated evidence of atrial fibrillation/flutter. He appears to be maintaining sinus rhythm at this time. 2. Status post aortic valve replacement: Bioprosthetic He does have an underlying bioprosthetic aortic valve. There was no comment on any concerns with respect to his transthoracic echocardiogram. However, based upon his underlying clinical scenario with his fevers, concerns of a possible sepsis type syndrome, and if no definitive etiology for his infectious related events, he may need to be considered for further evaluation of his aortic valve for the possibility of infectious endocarditis with a trans esophageal echocardiogram. Transthoracic echocardiogram did not necessarily demonstrate any evidence of endocarditis however. I would like to see his platelets at 50,000 or above before attempting this 3. Hyperlipidemia He can continue medical management as deemed appropriate and tolerated. 4. Hypertension At the present time his blood pressure is good. He has rate limiting medications that may affect blood pressure adversely are on hold. Any other antihypertensive type agents are on hold. Depending upon his course he may need vasopressor agents to support his blood pressure. 5. Renal insufficiency He does have a history of renal insufficiency. It may be exacerbated if he is truly intravascularly depleted based upon his situation at home being found down, lethargic, and with altered mental status. He will continue to receive IV fluids as deemed appropriate by the ICU staff. His renal function will be followed. 6. Anemia He is anemic. Etiology is secondary to his prepyloric ulcer. One also has to be careful going down with a CALI probe so as not to worsen this. Thank you for allowing me to participate in the care of your patient. Please don't hesitate to call if any issues arise
[2018-06-12] MEDS: 0.9% NaCl IVPB Med Flush (250 mL) 15 ML IV (18:22)
[2018-06-12 18:51] LABS: Bedside Glucose 197 mg/dL (70-110)
--- NOTE | 2018-06-12 21:30 | NURSING ---
tube feed held for carafate per mar
[2018-06-12] MEDS: Atorvastatin Calcium 10 MG Tablet GT (21:36)
[2018-06-12] MEDS: fentaNYL drip 100 ML 2.5 MCG IV (23:56)
[2018-06-13] VITALS (39 sets, daily range): BP systolic 88–132; BP diastolic 33–82; PULSE 0–68; RESP 14–48; TEMP 36.9–38.8; O2SAT 90–100
[2018-06-13] MEDS: Insulin Lispro 100 UNIT/ML INSULN.PEN SC ×3 (00:14→12:10)
[2018-06-13 00:31] LABS: Bedside Glucose 176 mg/dL (70-110)
--- NOTE | 2018-06-13 01:38 | NURSING ---
tube feed restarted
[2018-06-13] MEDS: Acetaminophen 650 MG/20 ML UDC GT (04:11)
[2018-06-13] MEDS: CHLORHEXIDINE GLUC 2% CLOTH 1 EACH TOWELETTE TOPICAL (05:30)
[2018-06-13 06:11] LABS: Anion Gap 7 (5-15); BUN 51 mg/dL (7-18); BUN/Creat Ratio 42.1 RATIO (10-20); Calcium,Total 8.2 mg/dL (8.5-10.1); Chloride 127 mmol/L (98-107); Creatinine, Serum 1.21 mg/dL (0.70-1.30); EST Glomerular Filtration Rate 62 mL/min (>60); Est Glom Filt Rate - Afr Amer 75 mL/min (>60); Glucose 208 mg/dL (74-106); Potassium 4.1 mmol/L (3.5-5.1); Sodium Level 152 mmol/L (136-145)
[2018-06-13 06:45] LABS: Absolute Lymphocyte Count 1.71 X10^3/ul (0.83-4.51); Absolute Neutrophil Count 6.2 X10^3/uL (2.0-7.7); Basophil# 0.06 X10^3/uL; Basophil% 0.7 % (0-1); Eosinophil# 0.04 X10^3/uL; Eosinophils% 0.5 % (0-5); Hemoglobin 8.4 g/dl (13.0-16.5); Lymphocyte # 1.71 X10^3/ul (4.0); Lymphocyte % 20.2 % (19-41); Mean Corp Hgb Conc 31.1 g/gl (32-36); Mean Corpuscular Hgb 29.4 pg (27.0-32.0); Mean Corpuscular Volume 94.4 fL (80-94); Monocyte# 0.35 X10^3/uL; Monocyte% 4.1 % (0-10); Neutrophil % 73.4 % (47-70); RBC Distribution Width CV 18.4 % (11.6-14.6); RBC Distribution Width SD 55.8 fl (35.1-43.9); Red Blood Count 2.86 M/mm3 (4.6-6.2); White Blood Count 8.5 K/mm3 (4.4-11.0)
--- NOTE | 2018-06-13 06:47 | PCM.PN.INT ---
Subjective: The patient was seen and examined at the bedside this morning. Events from the last 24 hours have been reviewed. The patient remains febrile with an ongoing vasopressor requirement to maintain hemodynamic stability. The patient's levophed is currently infusing at 10 mcg. The patient is currently documented to be overall net +27 L for the admission. Hemoglobin is down to 8.4 g/dL this morning. The patient's platelet count fell to 13,000 this morning. The patient continues to become extremely tachypneic whenever he has transitioned from assist control mode of mechanical ventilation. A conversation was had with the patient's son this morning regarding his father's continued clinical decompensation. At this time, the son would like to pursue palliative withdrawal of life support. Objective: The patient's most recent lab work, culture data and imaging studies have all been personally reviewed. Surface echocardiogram revealed normal LV size and function with an ejection fraction of 65% and stage I diastolic dysfunction. Pulmonary artery systolic pressure was estimated to be 40 mmHg. VQ scan completed on June 02 was noted to be a low quality VQ scan, but was reported to be most consistent with low probability for PE. CT chest dated June 02 revealed small bilateral pleural effusions without focal infiltrates. CT abdomen revealed bilateral hydronephrosis along with bilateral hydroureter. Urine culture dated June 02 and June 03 both revealed Enterococcus faecalis. General: - - Remains intubated, sedated and mechanically ventilated. HEENT: Atraumatic, PERRLA, Normocephalic Oral: Dry Mucosa, - - Endotracheal and OG tubes remain in place. Neck: Supple, No Nodes, Trachea Midline Lungs: No rhonchi, No wheeze, No rales, Diminished, Short of Breath, Tachypneic Cardiovascular: Normal S1, Normal S2, Bradycardic, Murmur Abdomen: Bowel Sounds Present, Soft, Non Tender, Distended Extremities: - - Diffuse anasarca Skin: - - No significant change from previous Musculoskeletal: Cachexia Lymphatic: No Cervical, Supraclavicular, or Inguinal Adenopathy Neurological: - - No focal neurological deficits Psych/Mental Status: Flat Affect Vital Signs Temp Pulse Resp BP Pulse Ox 38.4 C H 53 L 20 H 124/40 H 100 06/13/18 06:00 06/13/18 06:00 06/13/18 06:00 06/13/18 06:00 06/13/18 06:00 Oxygen Flow Rate (L/min) [5] 15 Oxygen Flow Rate (L/min) [4] 15 Oxygen Flow Rate (L/min) [3] 15 Oxygen Flow Rate (L/min) [2] 15 Oxygen Flow Rate (L/min) [1 ( 15 Initial Baseline)] Oxygen Flow Rate (L/min) 2 Oxygen Delivery Method [5] Ambu-Bag Oxygen Delivery Method [4] Ambu-Bag Oxygen Delivery Method [3] Ambu-Bag Oxygen Delivery Method [2] Room Air Oxygen Delivery Method [1 ( Ambu-Bag Initial Baseline)] Oxygen Delivery Method Mechanical Ventilator Weight: 199 lb 8.293 oz Body Mass Index (BMI) 27.1 Finger Stick Blood Glucose 202 Intake and Output for Last 24 Hours 06/11/18 06/12/18 06/13/18 23:59 23:59 23:59 Intake Total 5005.8 / 5005.8 4287 / 4287 380 / 380 Output Total 1550 / 1550 1125 / 1125 Balance 3455.8 / 3455.8 3162 / 3162 380 / 380 Labs (Last 48 Hours) 06/10/18 06/10/18 06/11/18 03:45 14:20 04:10 WBC RBC Hgb Hct MCV MCH MCHC RDW RDW Differential Plt Count MPV Immature Gran % (Auto) Neut % (Auto) Lymph % (Auto) Christian % (Auto) Eos % (Auto) Baso % (Auto) Absolute Neuts (auto) Absolute Lymphs (auto) Total Counted Nucleated RBC % 11.3 H Differential Comment Diff Path Review Reviewed Reviewed Reviewed Platelet Estimate Polychromasia Hypochromasia Anisocytosis Microcytosis Absolute Retic 0.94 Sodium Potassium Chloride Carbon Dioxide Anion Gap BUN Creatinine Estim Creat Clear Calc Est GFR (MDRD) Af Amer Est GFR (MDRD) Non-Af BUN/Creatinine Ratio Glucose Calcium Phosphorus Magnesium POC Glucose 06/11/18 06/11/18 06/11/18 12:08 17:25 18:16 WBC RBC Hgb Hct MCV MCH MCHC RDW RDW Differential Plt Count MPV Immature Gran % (Auto) Neut % (Auto) Lymph % (Auto) Christian % (Auto) Eos % (Auto) Baso % (Auto) Absolute Neuts (auto) Absolute Lymphs (auto) Total Counted Nucleated RBC % Differential Comment Diff Path Review Platelet Estimate Polychromasia Hypochromasia Anisocytosis Microcytosis Absolute Retic Sodium Potassium 3.3 L Chloride Carbon Dioxide Anion Gap BUN Creatinine Estim Creat Clear Calc Est GFR (MDRD) Af Amer Est GFR (MDRD) Non-Af BUN/Creatinine Ratio Glucose Calcium Phosphorus Magnesium POC Glucose 228 H 147 H 06/11/18 06/12/18 06/12/18 23:34 04:00 04:00 WBC 7.6 RBC 3.04 L Hgb 9.0 L Hct 28.3 L MCV 93.1 MCH 29.6 MCHC 31.8 L RDW 17.9 H RDW Differential 54.8 H Plt Count 39 L* MPV 12.0 Immature Gran % (Auto) 1.600 H Neut % (Auto) 77.5 H Lymph % (Auto) 17.4 L Christian % (Auto) 2.3 Eos % (Auto) 0.7 Baso % (Auto) 0.5 Absolute Neuts (auto) 5.9 Absolute Lymphs (auto) 1.31 Total Counted Not Reportable Nucleated RBC % 4.3 Differential Comment SCAN Diff Path Review Reviewed Platelet Estimate MKD DEC Polychromasia 2+ Hypochromasia 1+ Anisocytosis 1+ Microcytosis 1+ Absolute Retic 0.33 Sodium 154 H Potassium 3.6 Chloride 128 H* Carbon Dioxide 18.0 L Anion Gap 8 BUN 57 H Creatinine 1.21 Estim Creat Clear Calc 45.40 Est GFR (MDRD) Af Amer 75 Est GFR (MDRD) Non-Af 62 BUN/Creatinine Ratio 47.1 H Glucose 179 H Calcium 8.3 L Phosphorus 3.3 Magnesium 2.0 POC Glucose 176 H 06/12/18 06/12/18 06/12/18 05:05 12:44 18:15 WBC RBC Hgb Hct MCV MCH MCHC RDW RDW Differential Plt Count MPV Immature Gran % (Auto) Neut % (Auto) Lymph % (Auto) Christian % (Auto) Eos % (Auto) Baso % (Auto) Absolute Neuts (auto) Absolute Lymphs (auto) Total Counted Nucleated RBC % Differential Comment Diff Path Review Platelet Estimate Polychromasia Hypochromasia Anisocytosis Microcytosis Absolute Retic Sodium Potassium Chloride Carbon Dioxide Anion Gap BUN Creatinine Estim Creat Clear Calc Est GFR (MDRD) Af Amer Est GFR (MDRD) Non-Af BUN/Creatinine Ratio Glucose Calcium Phosphorus Magnesium POC Glucose 155 H 163 H 197 H 06/13/18 06/13/18 06/13/18 00:12 05:40 05:40 WBC Pending RBC Pending Hgb Pending Hct Pending MCV Pending MCH Pending MCHC Pending RDW Pending RDW Differential Pending Plt Count Pending MPV Immature Gran % (Auto) Neut % (Auto) Pending Lymph % (Auto) Christian % (Auto) Eos % (Auto) Baso % (Auto) Absolute Neuts (auto) Pending Absolute Lymphs (auto) Total Counted Pending Nucleated RBC % Differential Comment Diff Path Review Platelet Estimate Polychromasia Hypochromasia Anisocytosis Microcytosis Absolute Retic Sodium 152 H Potassium 4.1 Chloride 127 H* Carbon Dioxide 18.0 L Anion Gap 7 BUN 51 H Creatinine 1.21 Estim Creat Clear Calc 45.40 Est GFR (MDRD) Af Amer 75 Est GFR (MDRD) Non-Af 62 BUN/Creatinine Ratio 42.1 H Glucose 208 H Calcium 8.2 L Phosphorus Magnesium POC Glucose 176 H Microbiology 06/10/18 14:54 Urine, Nephrostomy Urine Culture - Final Culture exhibits no growth. 06/06/18 11:50 Blood Culture (Wb) - Anticubital Left Blood Culture - Final No growth in 5 days. 06/06/18 12:00 Blood Culture (Wb) - Right Wrist Blood Culture - Final No growth in 5 days. Clinical Impression(s) from Imaging Studies Brain CT 06/02/18 01:25 IMPRESSION: No acute findings. Individualized dose optimization techniques were used for this CT. at 0159 Reported and signed by: Geoff Joaquin MD Electronically Signed: Geoff Joaquin, at 1:58 EST Tel , Service support , Cervical Spine CT 06/02/18 01:25 IMPRESSION: No fracture or dislocation of the cervical spine. Individualized dose optimization techniques were used for this CT. at 0206 Reported and signed by: Geoff Joaquin MD Electronically Signed: Geoff Joaquin, at 2:05 EST Tel , Service support , Chest X-Ray 06/02/18 01:35 IMPRESSION: Low lung volumes with resultant hypoventilatory changes. No definite pneumonia or edema. Interval sternotomy probably for heart valve replacement. at 0154 Reported and signed by: Geoff Joaquin MD Electronically Signed: Geoff Joaquin, at 1:53 EST Tel , Service support , Lung Scan-VQ NM 06/02/18 13:55 IMPRESSION: Low quality VQ scan, most consistent with low probability of pulmonary embolism. Electronically Signed: Kenny Greene MD at 16:31 EST , Service support , Chest X-Ray 06/02/18 14:28 IMPRESSION: Moderate right pleural effusion with overlying atelectasis. Electronically Signed: Juan Ruiz, at 15:40 EST Tel , Service support , Chest CT 06/02/18 21:14 IMPRESSION: Small bilateral pleural effusions with overlying atelectasis. Sclerotic osseous lesions which are suspicious for metastasis. Electronically Signed: Juan Ruiz, at 22:14 EST Tel , Service support , Chest X-Ray 06/02/18 22:26 IMPRESSION: Mild left basilar atelectasis status post endotracheal tube placement Electronically Signed: Norbert Snyder MD at 23:18 EST , Service support , Abdomen CT 06/04/18 12:33 IMPRESSION: Bilateral hydronephrosis right greater than left with bilateral hydroureter. Diffusely thickened bladder wall. Electronically Signed: Javier Cornel, at 15:28 EST , Service support , Nephrostomy Tube Change 06/05/18 07:41 IMPRESSION: 1. The percutaneous right nephrostomy catheter is in good position with the pigtail portion located in the right renal pelvis. 2. The conscious sedation protocol was followed. Electronically Signed: Javier Unger, at 14:33 EST , Service support , Nephrostomy Tube Change 06/09/18 08:39 IMPRESSION: 1. The percutaneous left nephrostomy catheter is in good position with the pigtail portion located in the left renal pelvis. Electronically Signed: Javier Unger, at 8:16 EDT , Service support , Chest X-Ray 06/11/18 08:40 IMPRESSION: The support tubes are in good position. Findings suggest small bilateral pleural effusions with bibasilar atelectasis. Electronically Signed: Javier Cornel, at 13:01 EDT , Service support , Medical Necessity - Tobacco Use Smoking Status: Former smoker Assessment/Plan All Active Problems (Last Reviewed 06/05/18 @ 07:40 by Dangelo Alvarado MD) Atrial fibrillation and flutter (Acute) Fever (Acute) Anemia (Acute) Thrombocytopenia (Acute) Bilateral hydronephrosis (Acute) DIC syndrome (Acute) RECOMMENDATIONS: 1. Following discussion with the patient's son, will institute comfort care measures at this time. 2. Orders for as needed morphine and Ativan have been placed. 3. The patient will be premedicated and then he will be palliatively extubated. 4. If the patient survives overnight, will contact hospice in the morning. IMPRESSIONS: 1. Acute hypoxemic respiratory failure The exact etiology for the patient's clinical decompensation is unclear. However, the patient was noted to be tachycardic at the time when he was initially beginning to decompensate. It is unclear whether this was atrial fibrillation or a sinus tachycardia. Given that the patient has paroxysmal atrial fibrillation and underlying valvular heart disease, it is possible that his decompensation may have been heart rate related. In addition, increased metabolic demands from the patient's sepsis and fevers also likely contributed. He is chronically anticoagulated with Eliquis on an outpatient basis. The patient's CT chest only revealed evidence of small bilateral pleural effusions without focal infiltrates. His FiO2 was able to be quickly weaned. At this time, the patient significantly volume overloaded state will make it a significant barrier to him being weaned from mechanical ventilation. 2. Severe sepsis with evidence of bilateral hydronephrosis/hydroureter The patient appears to be septic from a urinary source of infection. CT abdomen did reveal evidence of bilateral hydronephrosis, for which the patient underwent bilateral percutaneous nephrostomy tube placement. Antibiotics will be continued per infectious diseases recommendations. 3. Paroxysmal atrial fibrillation with RVR/history of aortic valve replacement Defer management of rate/rhythm control strategy to cardiology. 4. Anemia secondary to upper GI hemorrhage/thrombocytopenia secondary to DIC The patient does have known normocytic anemia, which appears to have worsened over the course of this hospital stay. The patient did require eventual transfusion of packed red blood cells. Upper endoscopy performed at the bedside did reveal evidence of GI ulcers. However, there was no active bleeding. This will require the permanent discontinuation of the patient's systemic anticoagulation. He will be continued on twice daily PPI therapy and monitored for any ongoing blood loss. The patient has also developed worsening thrombocytopenia, which following workup, appears to be related to DIC, likely secondary to the patient's sepsis syndrome. 5. Metastatic prostate cancer/anemia/chronic kidney disease/hypertension/hyperlipidemia/depression/generalized deconditioning and debility Complicates care, management, recovery and prognosis. Likely okay to continue home medications. Physical therapy to once again work with patient once medically stabilized. 6. CODE STATUS Updated to DNR comfort care. TIME: 45 minutes of critical care time, independent of procedures, was spent addressing the patient's acute hypoxemic respiratory failure, severe sepsis, paroxysmal atrial fibrillation with a rapid ventricular rate, metastatic prostate cancer, anemia, upper gastrointestinal bleed, DIC, review of all data and collaboration with the care team. ([id number]) Code Visit [id number]: [id number] Critical care first hour
--- NOTE | 2018-06-13 06:52 | PN_ITS ---
Subjective: The patient was seen and examined at the bedside this morning. Events from the last 24 hours have been reviewed. The patient remains febrile with an ongoing vasopressor requirement to maintain hemodynamic stability. The patient's levophed is currently infusing at 10 mcg. The patient is currently documented to be overall net +27 L for the admission. Hemoglobin is down to 8.4 g/dL this morning. The patient's platelet count fell to 13,000 this morning. The patient continues to become extremely tachypneic whenever he has transitioned from a ssist control mode of mechanical ventilation. A conversation was had with the patient's son this morning regarding his father's continued clinical decompensation. At this time, the son would like to pursue palliative withdrawal of life support. Objective: The patient's most recent lab work, culture data and imaging studies have all been personally reviewed. Surface echocardiogram revealed normal LV size and function with an ejection fraction of 65% and stage I diastolic dysfunction. Pulmonary artery systolic pressure was estimated to be 40 mmHg. VQ scan completed on June 02 was noted to be a low quality VQ scan, but was reported to be most consistent with low probability for PE. CT chest dated June 02 revealed small bilateral pleural effusions without focal infiltrates. CT abdomen revealed bilateral hydronephrosis along with bilateral hydroureter. Urine culture dated June 02 and June 03 both revealed Enterococcus faecalis. General: - - Remains intubated, sedated and mechanically ventilated. HEENT: Atraumatic, PERRLA, Normocephalic Oral: Dry Mucosa, - - Endotracheal and OG tubes remain in place. Neck: Supple, No Nodes, Trachea Midline Lungs: No rhonchi, No wheeze, No rales, Diminished, Short of Breath, Tachypneic Cardiovascular: Normal S1, Normal S2, Bradycardic, Murmur Abdomen: Bowel Sounds Present, Soft, Non Tender, Distended Extremities: - - Diffuse anasarca Skin: - - No significant change from previous Musculoskeletal: Cachexia Lymphatic: No Cervical, Supraclavicular, or Inguinal Adenopathy Neurological: - - No focal neurological deficits Psych/Mental Status: Flat Affect Vital Signs Temp Pulse Resp BP Pulse Ox 38.4 C H 53 L 20 H 124/40 H 100 06/13/18 06:00 06/13/18 06:00 06/13/18 06:00 06/13/18 06:00 06/13/18 06:00 Oxygen Flow Rate (L/min) [5] 15 Oxygen Flow Rate (L/min) [4] 15 Oxygen Flow Rate (L/min) [3] 15 Oxygen Flow Rate (L/min) [2] 15 Oxygen Flow Rate (L/min) [1 ( 15 Initial Baseline)] Oxygen Flow Rate (L/min) 2 Oxygen Delivery Method [5] Ambu-Bag Oxygen Delivery Method [4] Ambu-Bag Oxygen Delivery Method [3] Ambu-Bag Oxygen Delivery Method [2] Room Air Oxygen Delivery Method [1 ( Ambu-Bag Initial Baseline)] Oxygen Delivery Method Mechanical Ventilator Weight: 199 lb 8.293 oz Body Mass Index (BMI) 27.1 Finger Stick Blood Glucose 202 Intake and Output for Last 24 Hours 06/11/18 06/12/18 06/13/18 23:59 23:59 23:59 Intake Total 5005.8 / 5005.8 4287 / 4287 380 / 380 Output Total 1550 / 1550 1125 / 1125 Balance 3455.8 / 3455.8 3162 / 3162 380 / 380 Labs (Last 48 Hours) 06/10/18 06/10/18 06/11/18 03:45 14:20 04:10 WBC RBC Hgb Hct MCV MCH MCHC RDW RDW Differential Plt Count MPV Immature Gran % (Auto) Neut % (Auto) Lymph % (Auto) [place] % (Auto) Eos % (Auto) Baso % (Auto) Absolute Neuts (auto) Absolute Lymphs (auto) Total Counted Nucleated RBC % 11.3 H Differential Comment Diff Path Review Reviewed Reviewed Reviewed Platelet Estimate Polychromasia Hypochromasia Anisocytosis Microcytosis Absolute Retic 0.94 Sodium Potassium Chloride Carbon Dioxide Anion Gap BUN Creatinine Estim Creat Clear Calc Est GFR (MDRD) Af Amer Est GFR (MDRD) Non-Af BUN/Creatinine Ratio Glucose Calcium Phosphorus Magnesium POC Glucose 06/11/18 06/11/18 06/11/18 12:08 17:25 18:16 WBC RBC Hgb Hct MCV MCH MCHC RDW RDW Differential Plt Count MPV Immature Gran % (Auto) Neut % (Auto) Lymph % (Auto) [place] % (Auto) Eos % (Auto) Baso % (Auto) Absolute Neuts (auto) Absolute Lymphs (auto) Total Counted Nucleated RBC % Differential Comment Diff Path Review Platelet Estimate Polychromasia Hypochromasia Anisocytosis Microcytosis Absolute Retic Sodium Potassium 3.3 L Chloride Carbon Dioxide Anion Gap BUN Creatinine Estim Creat Clear Calc Est GFR (MDRD) Af Amer Est GFR (MDRD) Non-Af BUN/Creatinine Ratio Glucose Calcium Phosphorus Magnesium POC Glucose 228 H 147 H 06/11/18 06/12/18 06/12/18 23:34 04:00 04:00 WBC 7.6 RBC 3.04 L Hgb 9.0 L Hct 28.3 L MCV 93.1 MCH 29.6 MCHC 31.8 L RDW 17.9 H RDW Differential 54.8 H Plt Count 39 L* MPV 12.0 Immature Gran % (Auto) 1.600 H Neut % (Auto) 77.5 H Lymph % (Auto) 17.4 L [place] % (Auto) 2.3 Eos % (Auto) 0.7 Baso % (Auto) 0.5 Absolute Neuts (auto) 5.9 Absolute Lymphs (auto) 1.31 Total Counted Not Reportable Nucleated RBC % 4.3 Differential Comment SCAN Diff Path Review Reviewed Platelet Estimate MKD DEC Polychromasia 2+ Hypochromasia 1+ Anisocytosis 1+ Microcytosis 1+ Absolute Retic 0.33 Sodium 154 H Potassium 3.6 Chloride 128 H* Carbon Dioxide 18.0 L Anion Gap 8 BUN 57 H Creatinine 1.21 Estim Creat Clear Calc 45.40 Est GFR (MDRD) Af Amer 75 Est GFR (MDRD) Non-Af 62 BUN/Creatinine Ratio 47.1 H Glucose 179 H Calcium 8.3 L Phosphorus 3.3 Magnesium 2.0 POC Glucose 176 H 06/12/18 06/12/18 06/12/18 05:05 12:44 18:15 WBC RBC Hgb Hct MCV MCH MCHC RDW RDW Differential Plt Count MPV Immature Gran % (Auto) Neut % (Auto) Lymph % (Auto) [place] % (Auto) Eos % (Auto) Baso % (Auto) Absolute Neuts (auto) Absolute Lymphs (auto) Total Counted Nucleated RBC % Differential Comment Diff Path Review Platelet Estimate Polychromasia Hypochromasia Anisocytosis Microcytosis Absolute Retic Sodium Potassium Chloride Carbon Dioxide Anion Gap BUN Creatinine Estim Creat Clear Calc Est GFR (MDRD) Af Amer Est GFR (MDRD) Non-Af BUN/Creatinine Ratio Glucose Calcium Phosphorus Magnesium POC Glucose 155 H 163 H 197 H 06/13/18 06/13/18 06/13/18 00:12 05:40 05:40 WBC Pending RBC Pending Hgb Pending Hct Pending MCV Pending MCH Pending MCHC Pending RDW Pending RDW Differential Pending Plt Count Pending MPV Immature Gran % (Auto) Neut % (Auto) Pending Lymph % (Auto) [place] % (Auto) Eos % (Auto) Baso % (Auto) Absolute Neuts (auto) Pending Absolute Lymphs (auto) Total Counted Pending Nucleated RBC % Differential Comment Diff Path Review Platelet Estimate Polychromasia Hypochromasia Anisocytosis Microcytosis Absolute Retic Sodium 152 H Potassium 4.1 Chloride 127 H* Carbon Dioxide 18.0 L Anion Gap 7 BUN 51 H Creatinine 1.21 Estim Creat Clear Calc 45.40 Est GFR (MDRD) Af Amer 75 Est GFR (MDRD) Non-Af 62 BUN/Creatinine Ratio 42.1 H Glucose 208 H Calcium 8.2 L Phosphorus Magnesium POC Glucose 176 H Microbiology 06/10/18 14:54 Urine, Nephrostomy Urine Culture - Final Culture exhibits no growth. 06/06/18 11:50 Blood Culture (Wb) - Anticubital Left Blood Culture - Final No growth in 5 days. 06/06/18 12:00 Blood Culture (Wb) - Right Wrist Blood Culture - Final No growth in 5 days. Clinical Impression(s) from Imaging Studies Brain CT 06/02/18 01:25 IMPRESSION: No acute findings. Individualized dose optimization techniques were used for this CT. at 0159 Reported and signed by: Geoff Joaquin MD Electronically Signed: Geoff Joaquin, at 1:58 EST Tel , Service support , Cervical Spine CT 06/02/18 01:25 IMPRESSION: No fracture or dislocation of the cervical spine. Individualized dose optimization techniques were used for this CT. at 0206 Reported and signed by: Geoff Joaquin MD Electronically Signed: Geoff Joaquin, at 2:05 EST Tel , Service support , Chest X-Ray 06/02/18 01:35 IMPRESSION: Low lung volumes with resultant hypoventilatory changes. No definite pneumonia or edema. Interval sternotomy probably for heart valve replacement. at 0154 Reported and signed by: Geoff Joaquin MD Electronically Signed: Geoff Joaquin, at 1:53 EST Tel , Service support , Lung Scan-VQ NM 06/02/18 13:55 IMPRESSION: Low quality VQ scan, most consistent with low probability of pulmonary embolism. Electronically Signed: Kenny Greene MD at 16:31 EST , Service support , Chest X-Ray 06/02/18 14:28 IMPRESSION: Moderate right pleural effusion with overlying atelectasis. Electronically Signed: Juan Ruiz, at 15:40 EST Tel , Service support , Chest CT 06/02/18 21:14 IMPRESSION: Small bilateral pleural effusions with overlying atelectasis. Sclerotic osseous lesions which are suspicious for metastasis. Electronically Signed: Juan Ruiz, at 22:14 EST Tel , Service support , Chest X-Ray 06/02/18 22:26 IMPRESSION: Mild left basilar atelectasis status post endotracheal tube placement Electronically Signed: Norbert Snyder MD at 23:18 EST , Service support , Abdomen CT 06/04/18 12:33 IMPRESSION: Bilateral hydronephrosis right greater than left with bilateral hydroureter. Diffusely thickened bladder wall. Electronically Signed: Javier Cornel, at 15:28 EST , Service support , Nephrostomy Tube Change 06/05/18 07:41 IMPRESSION: 1. The percutaneous right nephrostomy catheter is in good position with the pigtail portion located in the right renal pelvis. 2. The conscious sedation protocol was followed. Electronically Signed: Javier Unger, at 14:33 EST , Service support , Nephrostomy Tube Change 06/09/18 08:39 IMPRESSION: 1. The percutaneous left nephrostomy catheter is in good position with the pigtail portion located in the left renal pelvis. Electronically Signed: Javier Unger, at 8:16 EDT , Service support , Chest X-Ray 06/11/18 08:40 IMPRESSION: The support tubes are in good position. Findings suggest small bilateral pleural effusions with bibasilar atelectasis. Electronically Signed: Javier Cornel, at 13:01 EDT , Service support , Medical Necessity - Tobacco Use Smoking Status: Former smoker Assessment/Plan All Active Problems (Last Reviewed 06/05/18 @ 07:40 by Dangelo Alvarado MD) Atrial fibrillation and flutter (Acute) Fever (Acute) Anemia (Acute) Thrombocytopenia (Acute) Bilateral hydronephrosis (Acute) DIC syndrome (Acute) RECOMMENDATIONS: 1. Following discussion with the patient's son, will institute comfort care measures at this time. 2. Orders for as needed morphine and Ativan have been placed. 3. The patient will be premedicated and then he will be palliatively extubated. 4. If the patient survives overnight, will contact hospice in the morning. IMPRESSIONS: 1. Acute hypoxemic respiratory failure The exact etiology for the patient's clinical decompensation is unclear. However, the patient was noted to be tachycardic at the time when he was initially beginning to decompensate. It is unclear whether this was atrial fibrillation or a sinus tachycardia. Given that the patient has paroxysmal atrial fibrillation and underlying valvular heart disease, it is possible that his decompensation may have been heart rate related. In addition, increased metabolic demands from the patient's sepsis and fevers also likely contributed. He is chronically anticoagulated with Eliquis on an outpatient basis. The patient's CT chest only revealed evidence of small bilateral pleural effusions without focal infiltrates. His FiO2 was able to be quickly weaned. At this time, the patient significantly volume overloaded state will make it a significant barrier to him being weaned from mechanical ventilation. 2. Severe sepsis with evidence of bilateral hydronephrosis/hydroureter The patient appears to be septic from a urinary source of infection. CT abdomen did reveal evidence of bilateral hydronephrosis, for which the patient underwent bilateral percutaneous nephrostomy tube placement. Antibiotics will be continued per infectious diseases recommendations. 3. Paroxysmal atrial fibrillation with RVR/history of aortic valve replacement Defer management of rate/rhythm control strategy to cardiology. 4. Anemia secondary to upper GI hemorrhage/thrombocytopenia secondary to DIC The patient does have known normocytic anemia, which appears to have worsened over the course of this hospital stay. The patient did require eventual transfusion of packed red blood cells. Upper endoscopy performed at the bedside did reveal evidence of GI ulcers. However, there was no active bleeding. This will require the permanent discontinuation of the patient's systemic anticoagulation. He will be continued on twice daily PPI therapy and monitored for any ongoing blood loss. The patient has also developed worsening thrombocytopenia, which following workup, appears to be related to DIC, likely secondary to the patient's sepsis syndrome. 5. Metastatic prostate cancer/anemia/chronic kidney disease/hypertension/hyperlipidemia/depression/generalized deconditioning and debility Complicates care, management, recovery and prognosis. Likely okay to continue home medications. Physical therapy to once again work with patient once medically stabilized. 6. CODE STATUS Updated to DNR comfort care. TIME: 45 minutes of critical care time, independent of procedures, was spent addressing the patient's acute hypoxemic respiratory failure, severe sepsis, paroxysmal atrial fibrillation with a rapid ventricular rate, metastatic prostate cancer, anemia, upper gastrointestinal bleed, DIC, review of all data and collaboration with the care team. ([id number]) Code Visit [id number]: [id number] Critical care first hour
[2018-06-13 06:56] LABS: Differential Indicated SCAN CRITERIA MET; POSITIVE COUNT YES; POSITIVE DIFFERENTIAL NO; POSITIVE MORPHOLOGY YES; Platelet Count 13 K/mm3 (150-450)
[2018-06-13 06:57] LABS: Absolute Nucleated RBC Count 0.25 10^3/uL (0-5); NRBC Flagged by Analyzer 2.9 % (0-5)
[2018-06-13 07:01] LABS: Bedside Glucose 186 mg/dL (70-110)
[2018-06-13 07:20] LABS: Anisocytosis 1+; Differential Comment SCAN; Hypochromasia 1+; Platelet Estimate MKD DEC (ADEQ); Polychromasia 1+
[2018-06-13 07:21] LABS: Microcytosis 1+
--- NOTE | 2018-06-13 07:24 | PCM.PN.CARD ---
Subjectve: Patient seen and evaluated. Status quo. Objective: Vital Signs Temp Pulse Resp BP Pulse Ox 101.3 F H 52 L 22 H 126/43 H 100 06/13/18 07:00 06/13/18 07:00 06/13/18 07:00 06/13/18 07:00 06/13/18 07:00 Oxygen Flow Rate (L/min) [5] 15 Oxygen Flow Rate (L/min) [4] 15 Oxygen Flow Rate (L/min) [3] 15 Oxygen Flow Rate (L/min) [2] 15 Oxygen Flow Rate (L/min) [1 ( 15 Initial Baseline)] Oxygen Flow Rate (L/min) 2 Oxygen Delivery Method [5] Ambu-Bag Oxygen Delivery Method [4] Ambu-Bag Oxygen Delivery Method [3] Ambu-Bag Oxygen Delivery Method [2] Room Air Oxygen Delivery Method [1 ( Ambu-Bag Initial Baseline)] Oxygen Delivery Method Mechanical Ventilator Weight: 199 lb 8.293 oz Body Mass Index (BMI) 27.1 Finger Stick Blood Glucose 202 Intake and Output for Last 24 Hours 06/11/18 06/12/18 06/13/18 23:59 23:59 23:59 Intake Total 5005.8 / 5005.8 4287 / 4287 1104 / 1104 Output Total 1550 / 1550 1125 / 1125 400 / 400 Balance 3455.8 / 3455.8 3162 / 3162 704 / 704 HEENT: PERRL, EOMI, Sclera Non Icteric Neck: Supple, Good ROM, No Lymph Node Enlargement Lungs: Clear to auscultation Cardiovascular: Regular Rhythm, Normal S1, Normal S2, No Murmurs, No Rubs, No Gallops Vascular: No Carotid Bruits, Normal Femoral Pulses, Normal Radial Pulses, Normal Dorsalis Pedal Pulse, Normal Posterior Tibial Pulses Abdomen: Bowel Sounds Present, Soft, Non Tender, No HSM, No Organomegaly Extremities: No Cyanosis, No Clubbing, No edema Skin: No Rashes Lymphatic: No Lymph Node Enlargement Neurological: No Focal Motor or Sensory Deficit 06/13/18 05:40: WBC 8.5, RBC 2.86 L, Hgb 8.4 L, Hct 27.0 L, MCV 94.4 H, MCH 29.4, MCHC 31.1 L, RDW 18.4 H, RDW Differential 55.8 H, Plt Count 13 L*, Immature Gran % (Auto) 1.100 H, Neut % (Auto) 73.4 H, Lymph % (Auto) 20.2, [place] % (Auto) 4.1, Eos % (Auto) 0.5, Baso % (Auto) 0.7, Absolute Neuts (auto) 6.2, Total Counted Not Reportable, Nucleated RBC % 2.9 06/13/18 05:40: Sodium 152 H, Potassium 4.1, Chloride 127 H*, Carbon Dioxide 18.0 L, Anion Gap 7, BUN 51 H, Creatinine 1.21, Est GFR (MDRD) Af Amer 75, Est GFR (MDRD) Non-Af 62, BUN/Creatinine Ratio 42.1 H, Glucose 208 H, Calcium 8.2 L Rhythm: EKG: ECHO: Stress Test: Cardiac Cath: PCI: CT Surgery: Holter monitor: EPS: PPM: CXR: Chest CT Scan: Medical Necessity - Tobacco Use Smoking Status: Former smoker Assessment/Plan 1. Atrial fibrillation/flutter The patient has demonstrated evidence of atrial fibrillation/flutter. He appears to be maintaining sinus rhythm at this time. 2. Status post aortic valve replacement: Bioprosthetic He does have an underlying bioprosthetic aortic valve. There was no comment on any concerns with respect to his transthoracic echocardiogram. However, based upon his underlying clinical scenario with his fevers, concerns of a possible sepsis type syndrome, and if no definitive etiology for his infectious related events, he may need to be considered for further evaluation of his aortic valve for the possibility of infectious endocarditis with a trans esophageal echocardiogram. Transthoracic echocardiogram did not necessarily demonstrate any evidence of endocarditis however. I would like to see his platelets at 50,000 or above before attempting this. At this time it appears this procedure is on hold. 3. Hyperlipidemia He can continue medical management as deemed appropriate and tolerated. 4. Hypertension At the present time his blood pressure is good. He has rate limiting medications that may affect blood pressure adversely are on hold. Any other antihypertensive type agents are on hold. Depending upon his course he may need vasopressor agents to support his blood pressure. 5. Renal insufficiency He does have a history of renal insufficiency. It may be exacerbated if he is truly intravascularly depleted based upon his situation at home being found down, lethargic, and with altered mental status. He will continue to receive IV fluids as deemed appropriate by the ICU staff. His renal function will be followed. 6. Anemia He is anemic. Etiology is secondary to his prepyloric ulcer. One also has to be careful going down with a CALI probe so as not to worsen this. Thank you for allowing me to participate in the care of your patient. Please don't hesitate to call if any issues arise
[2018-06-13] MEDS: Vital AF 1.2 Cal Liquid 1,000 ML 50 ML GT (07:50)
[2018-06-13] MEDS: Sucralfate 1 GM Tablet GT (07:50)
--- NOTE | 2018-06-13 08:17 | PN_ITS ---
Subjective: Day #12 ventilator Day #12 Zosyn All events of the past 24 hours been reviewed. Continues to be febrile with a T-max over the past 24 hours of 101.9 ?F. Met with Emil and he has decided to extubate Preston and make him comfortable. discussed with Dr. Nicholson and myself Objective: - Physical Exam General: - - less responsive today. Did not respond to Emil HEENT: Atraumatic, PERRLA, EOMI, Normocephalic Oral: Dry Mucosa Neck: No Nuchal Rigidity, Trachea Midline Lungs: Clear to auscultation, Diminished, increased RR Cardiovascular: Regular rate, Regular Rhythm, Normal S1, Normal S2, No rub noted, No Gallop Abdomen: Bowel Sounds Present, Soft, Non Tender, Non-Distended, - - there is dark blood in both nephrostomy tubes and in the crump bag Extremities: No clubbing, Edema, - - toenails are still cyanotic, the feet and the distal LE's are cold to touch Skin: - - has multiple bruises due to the DIC Neurological: Cranial nerves II-XII grossly intact, Neuro grossly intact - Physical Exam Vital Signs Temp Pulse Resp BP Pulse Ox 100.5 F H 67 18 132/47 H 100 06/13/18 08:00 06/13/18 08:00 06/13/18 08:00 06/13/18 08:00 06/13/18 08:00 Oxygen Flow Rate (L/min) [5] 15 Oxygen Flow Rate (L/min) [4] 15 Oxygen Flow Rate (L/min) [3] 15 Oxygen Flow Rate (L/min) [2] 15 Oxygen Flow Rate (L/min) [1 ( 15 Initial Baseline)] Oxygen Flow Rate (L/min) 2 Oxygen Delivery Method [5] Ambu-Bag Oxygen Delivery Method [4] Ambu-Bag Oxygen Delivery Method [3] Ambu-Bag Oxygen Delivery Method [2] Room Air Oxygen Delivery Method [1 ( Ambu-Bag Initial Baseline)] Oxygen Delivery Method Mechanical Ventilator Weight: 199 lb 8.293 oz Body Mass Index (BMI) 27.1 Finger Stick Blood Glucose 202 Intake and Output for Last 24 Hours 06/11/18 06/12/18 06/13/18 23:59 23:59 23:59 Intake Total 5005.8 / 5005.8 4287 / 4287 1104 / 1104 Output Total 1550 / 1550 1125 / 1125 400 / 400 Balance 3455.8 / 3455.8 3162 / 3162 704 / 704 Microbiology Past 72 Hours 06/10/18 14:54 Urine Culture - Final Urine, Nephrostomy Culture exhibits no growth. 06/06/18 11:50 Blood Culture - Final Blood Culture (Wb) - Anticubital Left No growth in 5 days. 06/06/18 12:00 Blood Culture - Final Blood Culture (Wb) - Right Wrist No growth in 5 days. Laboratory Tests Past 24 Hrs 06/12/18 06/13/18 06/13/18 04:00 05:40 05:40 WBC 8.5 RBC 2.86 L Hgb 8.4 L Hct 27.0 L MCV 94.4 H MCH 29.4 MCHC 31.1 L RDW 18.4 H RDW Differential 55.8 H Plt Count 13 L* Immature Gran % (Auto) 1.100 H Neut % (Auto) 73.4 H Lymph % (Auto) 20.2 [place] % (Auto) 4.1 Eos % (Auto) 0.5 Baso % (Auto) 0.7 Absolute Neuts (auto) 6.2 Absolute Lymphs (auto) 1.71 Total Counted Not Reportable Nucleated RBC % 2.9 Differential Comment SCAN Diff Path Review Reviewed May foll Platelet Estimate MKD DEC Polychromasia 1+ Hypochromasia 1+ Anisocytosis 1+ Microcytosis 1+ Absolute Retic 0.25 Sodium 152 H Potassium 4.1 Chloride 127 H* Carbon Dioxide 18.0 L Anion Gap 7 BUN 51 H Creatinine 1.21 Estim Creat Clear Calc 45.40 Est GFR (MDRD) Af Amer 75 Est GFR (MDRD) Non-Af 62 BUN/Creatinine Ratio 42.1 H Glucose 208 H Calcium 8.2 L POC Glucose 06/13/18 06/13/18 06/12/18 06:41 00:12 18:15 POC Glucose 186 H 176 H 197 H 06/12/18 12:44 POC Glucose 163 H Medical Necessity - Tobacco Use Smoking Status: Former smoker Assessment/Plan All Active Problems (Last Reviewed 06/05/18 @ 07:40 by Dangelo Alvarado MD) Atrial fibrillation and flutter (Acute) Fever (Acute) Anemia (Acute) Thrombocytopenia (Acute) Bilateral hydronephrosis (Acute) DIC syndrome (Acute) Day #11 and Zosyn Day #11 ventilator Impressions 1. Acute hypoxemic respiratory failure requiring intubation 2. Septic shock with hypotension requiring pressors secondary to Enterococcus faecalis UTI with pyelonephritis 3. DIC 4. Upper GI bleed secondary to peptic ulcer disease-hemoglobin is now stable 5. Atrial fibrillation/atrial flutter with rapid ventricular response 6. History of bioprosthetic aortic valve 7. Acute urinary tract infection with bilateral hydronephrosis status post right nephrostomy tube on 06/05/2018 and left nephrostomy tube on 06/09/2018 8. Acute renal failure on chronic kidney disease stage III-secondary to bladder outlet obstruction with bilateral hydronephrosis and hydroureter as well as sepsis and dehydration 9. Metabolic acidosis secondary to acute renal failure 10. Hypertension 11. Prostate cancer with metastases to the bone-never treated 12. Bladder outlet obstruction 13. Severe anemia secondary to upper GI bleed, thrombocytopenia and DIC 14. Hypokalemia 15. Hyperlipidemia 16. Depression 17. Moderate malnutrition 18. Hypernatremia 19. Abnormal LFTs-possible liver metastases 20. Elevated troponin likely secondary to demand ischemia from atrial fibrillation with rapid ventricular response 21. Stage I diastolic dysfunction Extubate when Emil and his return this afternoon.
[2018-06-13] MEDS: DULoxetine Hcl 30 MG Capsule PO (10:03)
[2018-06-13] MEDS: Chlorhexidine 15 ML PO (10:03)
[2018-06-13 12:25] LABS: Bedside Glucose 187 mg/dL (70-110)
[2018-06-13] MEDS: Morphine 4 MG/ML Syringe IV ×3 (13:19→13:58)
[2018-06-13] MEDS: LORazepam 2 MG/ML Syringe IV (13:28)
[2018-06-13] MEDS: 0.9% NaCl Peripheral Flush Adult/Peds IV (13:58)
--- NOTE | 2018-06-13 19:35 | DS.PCM_ITS ---
Discharge Date and Diagnosis Date of Admission: 06/02/18 Date of Discharge: 06/13/18 - Primary Discharge Diagnosis Acute hypoxemic respiratory failure requiring intubation Septic shock with hypotension requiring pressors secondary to Enterococcus faecalis urinary tract infection/pyelonephritis DIC Upper GI bleed secondary to peptic ulcer disease Atrial fibrillation with rapid ventricular response Acute renal failure on chronic kidney disease stage III Dehydration Metabolic acidosis secondary to acute renal failure In [place] to upper GI bleed Hypokalemia Moderate malnutrition Hypernatremia Abnormal LFTs Elevated troponin secondary to demand ischemia from atrial fibrillation with rapid ventricular response - Secondary Discharge Diagnosis Chronic Problems (Last Reviewed 06/05/18 @ 07:40 by Dangelo Alvarado MD) Prostate cancer metastatic to bone (Chronic) Stage III chronic kidney disease (Chronic) Dyslipidemia (Chronic) Paroxysmal atrial fibrillation (Chronic) History of aortic valve replacement with bioprosthetic valve (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 Individualized dose optimization techniques were used for this CT. at 0159 Reported and signed by: Geoff Joaquin MD Electronically Signed: Geoff Joaquin, at 1:58 EST Tel , Service support , Cervical Spine CT 06/02/18 01:25 IMPRESSION: No fracture or dislocation of the cervical spine. Individualized dose optimization techniques were used for this CT. at 0206 Reported and signed by: Geoff Joaquin MD Electronically Signed: Geoff Joaquin, at 2:05 EST Tel , Service support , Chest X-Ray 06/02/18 01:35 IMPRESSION: Low lung volumes with resultant hypoventilatory changes. No definite pneumonia or edema. Interval sternotomy probably for heart valve replacement. at 0154 Reported and signed by: Geoff Joaquin MD Electronically Signed: Geoff Joaquin, at 1:53 EST Tel , Service support , Lung Scan-VQ NM 06/02/18 13:55 IMPRESSION: Low quality VQ scan, most consistent with low probability of pulmonary embolism. Electronically Signed: Kenny Greene MD at 16:31 EST , Service support , Chest X-Ray 06/02/18 14:28 IMPRESSION: Moderate right pleural effusion with overlying atelectasis. Electronically Signed: Juan Ruiz, at 15:40 EST Tel , Service support , Chest CT 06/02/18 21:14 IMPRESSION: Small bilateral pleural effusions with overlying atelectasis. Sclerotic osseous lesions which are suspicious for metastasis. Electronically Signed: Juan Ruiz, at 22:14 EST Tel , Service support , Chest X-Ray 06/02/18 22:26 IMPRESSION: Mild left basilar atelectasis status post endotracheal tube placement Electronically Signed: Norbert Snyder MD at 23:18 EST , Service support , Abdomen CT 06/04/18 12:33 IMPRESSION: Bilateral hydronephrosis right greater than left with bilateral hydroureter. Diffusely thickened bladder wall. Electronically Signed: Javier Unger, at 15:28 EST , Service support , Nephrostomy Tube Change 06/05/18 07:41 IMPRESSION: 1. The percutaneous right nephrostomy catheter is in good position with the pigtail portion located in the right renal pelvis. 2. The conscious sedation protocol was followed. Electronically Signed: Javier Cornel, at 14:33 EST , Service support , Nephrostomy Tube Change 06/09/18 08:39 IMPRESSION: 1. The percutaneous left nephrostomy catheter is in good position with the pigtail portion located in the left renal pelvis. Electronically Signed: Javier Cornel, at 8:16 EDT , Service support , Chest X-Ray 06/11/18 08:40 IMPRESSION: The support tubes are in good position. Findings suggest small bilateral pleural effusions with bibasilar atelectasis. Electronically Signed: Javier Cornel, at 13:01 EDT , Service support , Laboratory Tests 06/13/18 06/13/18 06/13/18 Range/Units 12:08 06:41 05:40 WBC (4.4-11.0) K/mm3 Corrected WBC (4.4-11.0) K/mm3 RBC (4.6-6.2) M/mm3 Hgb (13.0-16.5) g/dl Hct (40-54) % MCV (80-94) fL MCH (27.0-32.0) pg MCHC (32-36) g/gl RDW (11.6-14.6) % RDW Differential (35.1-43.9) fl Plt Count (150-450) K/mm3 MPV (6.2-12.0) fl Immature Gran % (Auto) (0.0-0.9) % Neut % (Auto) (47-70) % Lymph % (Auto) (19-41) % [place] % (Auto) (0-10) % Eos % (Auto) (0-5) % Baso % (Auto) (0-1) % Absolute Neuts (auto) (2.0-7.7) X10^3/uL Absolute Lymphs (auto) (0.83-4.51) X10^3/ul Total Counted Neutrophils % (Manual) (47-70) % Band Neutrophils % (0-5) % Lymphocytes % (Manual) (19-41) % Monocytes % (Manual) (0-10) % Eosinophils % (Manual) (0-5) % Metamyelocytes % (0-1) % Myelocytes % (0-0) Promyelocytes % (0-0) Blast Cells % (0-0) % Nucleated RBC % (0-5) % Nucleated RBCs/100 WBC (0-5) % Differential Comment Diff Path Review Platelet Estimate (ADEQ) Immature Plt Fraction (1.0-7.9) % Plt Morphology Comment RBC Morphology Polychromasia Hypochromasia Anisocytosis Microcytosis Spherocytes Ovalocytes Schistocytes Retic Count (0.5-1.5) % Absolute Retic (0-5) 10^3/uL Immature Retic Fraction (3.00-15.90) % Retic Hgb Equivalent (30-35) pg Haptoglobin (34-200) mg/dL PT (11.7-14.9) SECONDS INR APTT (24.1-36.2) Seconds Fibrinogen (203-444) mg/dl D-Dimer Quant (PE/DVT) Specimen Type Sample Site pH (7.35-7.45) Bicarbonate Actual (22-26) mmol/L POC Total CO2 mmol/L Base Excess (-2 to +2) mmol/L O2 Saturation (95-99) % O2 % ABG pCO2 (35-45) mmHg ABG pO2 (75-100) mmHG Sage Test Respiration Rate O2 Delivery Device Liter Flow /min Minute Volume Vent Mode Tidal Volume POC PEEP Blood Gas Notified Whom Blood Gas Notified Time Sodium 152 H (136-145) mmol/L Potassium 4.1 (3.5-5.1) mmol/L Chloride 127 H* (98-107) mmol/L Carbon Dioxide 18.0 L (21.0-32.0) mmol/L Anion Gap 7 (5-15) BUN 51 H (7-18) mg/dL Creatinine 1.21 (0.70-1.30) mg/dL Estim Creat Clear Calc 45.40 ml/min Est GFR (MDRD) Af Amer 75 (>60) mL/min Est GFR (MDRD) Non-Af 62 (>60) mL/min BUN/Creatinine Ratio 42.1 H (10-20) RATIO Glucose 208 H (74-106) mg/dL Hemoglobin A1c (4.2-6.3) % Lactic Acid (0.4-2.0) mmol/L Calcium 8.2 L (8.5-10.1) mg/dL Phosphorus (2.5-4.9) mg/dL Magnesium (1.6-2.6) mg/dL Iron (65-175) ug/dL TIBC (250-450) ug/dL Iron Saturation (15.0-55.0) % Total Bilirubin (0.20-1.00) mg/dL Direct Bilirubin (0.00-0.30) mg/dL AST (15-37) U/L ALT (16-61) U/L Alkaline Phosphatase (45-117) U/L Lactate Dehydrogenase (87-241) U/L Total Creatine Kinase (39-308) U/L Troponin I (<0.045) ng/mL B-Natriuretic Peptide (0-100) pg/mL Total Protein (6.4-8.2) g/dL Albumin (3.2-5.0) g/dL Globulin (2.2-4.2) g/dL Albumin/Globulin Ratio (0.9-2.4) RATIO Triglycerides ( - 199) mg/dL Vitamin B12 (211-911) pg/mL Folate (3.1-55.4) ng/mL Urine Color (Yellow) Urine Clarity (Clear) Urine pH (5.0 - 8.0) Ur Specific [place] (1.002-1.030) Urine Protein (Negative) mg/dl Urine Glucose (UA) (Normal) mg/dl Urine Ketones (Negative) mg/dl Urine Occult Blood (Negative) /ul Urine Nitrite (Negative) Urine Bilirubin (Negative) mg/dL Urine Urobilinogen (Normal) mg/dl Ur Leukocyte Esterase (Negative) /ul Urine RBC (0-5) /hpf Urine WBC (0-5) /hpf Ur Squamous Epith Cells (0-5) /hpf Urine Bacteria (None Seen) /hpf Urine Mucus (<or=2+) /hpf Vancomycin Trough (5.0-15.0) ug/mL Random Vancomycin (0.0-15.0) ug/mL Heparin-induced Plt Ab (0.000-0.400) OD H. pylori IgG Antibody (0.00-0.79) MRSA (PCR) (Negative) POC Glucose 187 H 186 H (70-110) mg/dL Blood Type Antibody Screen Crossmatch 06/13/18 06/13/18 06/12/18 Range/Units 05:40 00:12 18:15 WBC 8.5 (4.4-11.0) K/mm3 Corrected WBC (4.4-11.0) K/mm3 RBC 2.86 L (4.6-6.2) M/mm3 Hgb 8.4 L (13.0-16.5) g/dl Hct 27.0 L (40-54) % MCV 94.4 H (80-94) fL MCH 29.4 (27.0-32.0) pg MCHC 31.1 L (32-36) g/gl RDW 18.4 H (11.6-14.6) % RDW Differential 55.8 H (35.1-43.9) fl Plt Count 13 L* (150-450) K/mm3 MPV (6.2-12.0) fl Immature Gran % (Auto) 1.100 H (0.0-0.9) % Neut % (Auto) 73.4 H (47-70) % Lymph % (Auto) 20.2 (19-41) % [place] % (Auto) 4.1 (0-10) % Eos % (Auto) 0.5 (0-5) % Baso % (Auto) 0.7 (0-1) % Absolute Neuts (auto) 6.2 (2.0-7.7) X10^3/uL Absolute Lymphs (auto) 1.71 (0.83-4.51) X10^3/ul Total Counted Not Reportable Neutrophils % (Manual) (47-70) % Band Neutrophils % (0-5) % Lymphocytes % (Manual) (19-41) % Monocytes % (Manual) (0-10) % Eosinophils % (Manual) (0-5) % Metamyelocytes % (0-1) % Myelocytes % (0-0) Promyelocytes % (0-0) Blast Cells % (0-0) % Nucleated RBC % 2.9 (0-5) % Nucleated RBCs/100 WBC (0-5) % Differential Comment SCAN Diff Path Review May foll Platelet Estimate MKD DEC (ADEQ) Immature Plt Fraction (1.0-7.9) % Plt Morphology Comment RBC Morphology Polychromasia 1+ Hypochromasia 1+ Anisocytosis 1+ Microcytosis 1+ Spherocytes Ovalocytes Schistocytes Retic Count (0.5-1.5) % Absolute Retic 0.25 (0-5) 10^3/uL Immature Retic Fraction (3.00-15.90) % Retic Hgb Equivalent (30-35) pg Haptoglobin (34-200) mg/dL PT (11.7-14.9) SECONDS INR APTT (24.1-36.2) Seconds Fibrinogen (203-444) mg/dl D-Dimer Quant (PE/DVT) Specimen Type Sample Site pH (7.35-7.45) Bicarbonate Actual (22-26) mmol/L POC Total CO2 mmol/L Base Excess (-2 to +2) mmol/L O2 Saturation (95-99) % O2 % ABG pCO2 (35-45) mmHg ABG pO2 (75-100) mmHG Sage Test Respiration Rate O2 Delivery Device Liter Flow /min Minute Volume Vent Mode Tidal Volume POC PEEP Blood Gas Notified Whom Blood Gas Notified Time Sodium (136-145) mmol/L Potassium (3.5-5.1) mmol/L Chloride (98-107) mmol/L Carbon Dioxide (21.0-32.0) mmol/L Anion Gap (5-15) BUN (7-18) mg/dL Creatinine (0.70-1.30) mg/dL Estim Creat Clear Calc ml/min Est GFR (MDRD) Af Amer (>60) mL/min Est GFR (MDRD) Non-Af (>60) mL/min BUN/Creatinine Ratio (10-20) RATIO Glucose (74-106) mg/dL Hemoglobin A1c (4.2-6.3) % Lactic Acid (0.4-2.0) mmol/L Calcium (8.5-10.1) mg/dL Phosphorus (2.5-4.9) mg/dL Magnesium (1.6-2.6) mg/dL Iron (65-175) ug/dL TIBC (250-450) ug/dL Iron Saturation (15.0-55.0) % Total Bilirubin (0.20-1.00) mg/dL Direct Bilirubin (0.00-0.30) mg/dL AST (15-37) U/L ALT (16-61) U/L Alkaline Phosphatase (45-117) U/L Lactate Dehydrogenase (87-241) U/L Total Creatine Kinase (39-308) U/L Troponin I (<0.045) ng/mL B-Natriuretic Peptide (0-100) pg/mL Total Protein (6.4-8.2) g/dL Albumin (3.2-5.0) g/dL Globulin (2.2-4.2) g/dL Albumin/Globulin Ratio (0.9-2.4) RATIO Triglycerides ( - 199) mg/dL Vitamin B12 (211-911) pg/mL Folate (3.1-55.4) ng/mL Urine Color (Yellow) Urine Clarity (Clear) Urine pH (5.0 - 8.0) Ur Specific [place] (1.002-1.030) Urine Protein (Negative) mg/dl Urine Glucose (UA) (Normal) mg/dl Urine Ketones (Negative) mg/dl Urine Occult Blood (Negative) /ul Urine Nitrite (Negative) Urine Bilirubin (Negative) mg/dL Urine Urobilinogen (Normal) mg/dl Ur Leukocyte Esterase (Negative) /ul Urine RBC (0-5) /hpf Urine WBC (0-5) /hpf Ur Squamous Epith Cells (0-5) /hpf Urine Bacteria (None Seen) /hpf Urine Mucus (<or=2+) /hpf Vancomycin Trough (5.0-15.0) ug/mL Random Vancomycin (0.0-15.0) ug/mL Heparin-induced Plt Ab (0.000-0.400) OD H. pylori IgG Antibody (0.00-0.79) MRSA (PCR) (Negative) POC Glucose 176 H 197 H (70-110) mg/dL Blood Type Antibody Screen Crossmatch 03/06/12/18 06/12/18 Range/Units 12:44 05:05 04:00 WBC (4.4-11.0) K/mm3 Corrected WBC (4.4-11.0) K/mm3 RBC (4.6-6.2) M/mm3 Hgb (13.0-16.5) g/dl Hct (40-54) % MCV (80-94) fL MCH (27.0-32.0) pg MCHC (32-36) g/gl RDW (11.6-14.6) % RDW Differential (35.1-43.9) fl Plt Count (150-450) K/mm3 MPV (6.2-12.0) fl Immature Gran % (Auto) (0.0-0.9) % Neut % (Auto) (47-70) % Lymph % (Auto) (19-41) % [place] % (Auto) (0-10) % Eos % (Auto) (0-5) % Baso % (Auto) (0-1) % Absolute Neuts (auto) (2.0-7.7) X10^3/uL Absolute Lymphs (auto) (0.83-4.51) X10^3/ul Total Counted Neutrophils % (Manual) (47-70) % Band Neutrophils % (0-5) % Lymphocytes % (Manual) (19-41) % Monocytes % (Manual) (0-10) % Eosinophils % (Manual) (0-5) % Metamyelocytes % (0-1) % Myelocytes % (0-0) Promyelocytes % (0-0) Blast Cells % (0-0) % Nucleated RBC % (0-5) % Nucleated RBCs/100 WBC (0-5) % Differential Comment Diff Path Review Platelet Estimate (ADEQ) Immature Plt Fraction (1.0-7.9) % Plt Morphology Comment RBC Morphology Polychromasia Hypochromasia Anisocytosis Microcytosis Spherocytes Ovalocytes Schistocytes Retic Count (0.5-1.5) % Absolute Retic (0-5) 10^3/uL Immature Retic Fraction (3.00-15.90) % Retic Hgb Equivalent (30-35) pg Haptoglobin (34-200) mg/dL PT (11.7-14.9) SECONDS INR APTT (24.1-36.2) Seconds Fibrinogen (203-444) mg/dl D-Dimer Quant (PE/DVT) Specimen Type Sample Site pH (7.35-7.45) Bicarbonate Actual (22-26) mmol/L POC Total CO2 mmol/L Base Excess (-2 to +2) mmol/L O2 Saturation (95-99) % O2 % ABG pCO2 (35-45) mmHg ABG pO2 (75-100) mmHG Sage Test Respiration Rate O2 Delivery Device Liter Flow /min Minute Volume Vent Mode Tidal Volume POC PEEP Blood Gas Notified Whom Blood Gas Notified Time Sodium 154 H (136-145) mmol/L Potassium 3.6 (3.5-5.1) mmol/L Chloride 128 H* (98-107) mmol/L Carbon Dioxide 18.0 L (21.0-32.0) mmol/L Anion Gap 8 (5-15) BUN 57 H (7-18) mg/dL Creatinine 1.21 (0.70-1.30) mg/dL Estim Creat Clear Calc 45.40 ml/min Est GFR (MDRD) Af Amer 75 (>60) mL/min Est GFR (MDRD) Non-Af 62 (>60) mL/min BUN/Creatinine Ratio 47.1 H (10-20) RATIO Glucose 179 H (74-106) mg/dL Hemoglobin A1c (4.2-6.3) % Lactic Acid (0.4-2.0) mmol/L Calcium 8.3 L (8.5-10.1) mg/dL Phosphorus 3.3 (2.5-4.9) mg/dL Magnesium 2.0 (1.6-2.6) mg/dL Iron (65-175) ug/dL TIBC (250-450) ug/dL Iron Saturation (15.0-55.0) % Total Bilirubin (0.20-1.00) mg/dL Direct Bilirubin (0.00-0.30) mg/dL AST (15-37) U/L ALT (16-61) U/L Alkaline Phosphatase (45-117) U/L Lactate Dehydrogenase (87-241) U/L Total Creatine Kinase (39-308) U/L Troponin I (<0.045) ng/mL B-Natriuretic Peptide (0-100) pg/mL Total Protein (6.4-8.2) g/dL Albumin (3.2-5.0) g/dL Globulin (2.2-4.2) g/dL Albumin/Globulin Ratio (0.9-2.4) RATIO Triglycerides ( - 199) mg/dL Vitamin B12 (211-911) pg/mL Folate (3.1-55.4) ng/mL Urine Color (Yellow) Urine Clarity (Clear) Urine pH (5.0 - 8.0) Ur Specific [place] (1.002-1.030) Urine Protein (Negative) mg/dl Urine Glucose (UA) (Normal) mg/dl Urine Ketones (Negative) mg/dl Urine Occult Blood (Negative) /ul Urine Nitrite (Negative) Urine Bilirubin (Negative) mg/dL Urine Urobilinogen (Normal) mg/dl Ur Leukocyte Esterase (Negative) /ul Urine RBC (0-5) /hpf Urine WBC (0-5) /hpf Ur Squamous Epith Cells (0-5) /hpf Urine Bacteria (None Seen) /hpf Urine Mucus (<or=2+) /hpf Vancomycin Trough (5.0-15.0) ug/mL Random Vancomycin (0.0-15.0) ug/mL Heparin-induced Plt Ab (0.000-0.400) OD H. pylori IgG Antibody (0.00-0.79) MRSA (PCR) (Negative) POC Glucose 163 H 155 H (70-110) mg/dL Blood Type Antibody Screen Crossmatch 06/12/18 06/11/18 06/11/18 Range/Units 04:00 23:34 18:16 WBC 7.6 (4.4-11.0) K/mm3 Corrected WBC (4.4-11.0) K/mm3 RBC 3.04 L (4.6-6.2) M/mm3 Hgb 9.0 L (13.0-16.5) g/dl Hct 28.3 L (40-54) % MCV 93.1 (80-94) fL MCH 29.6 (27.0-32.0) pg MCHC 31.8 L (32-36) g/gl RDW 17.9 H (11.6-14.6) % RDW Differential 54.8 H (35.1-43.9) fl Plt Count 39 L* (150-450) K/mm3 MPV 12.0 (6.2-12.0) fl Immature Gran % (Auto) 1.600 H (0.0-0.9) % Neut % (Auto) 77.5 H (47-70) % Lymph % (Auto) 17.4 L (19-41) % [place] % (Auto) 2.3 (0-10) % Eos % (Auto) 0.7 (0-5) % Baso % (Auto) 0.5 (0-1) % Absolute Neuts (auto) 5.9 (2.0-7.7) X10^3/uL Absolute Lymphs (auto) 1.31 (0.83-4.51) X10^3/ul Total Counted Not Reportable Neutrophils % (Manual) (47-70) % Band Neutrophils % (0-5) % Lymphocytes % (Manual) (19-41) % Monocytes % (Manual) (0-10) % Eosinophils % (Manual) (0-5) % Metamyelocytes % (0-1) % Myelocytes % (0-0) Promyelocytes % (0-0) Blast Cells % (0-0) % Nucleated RBC % 4.3 (0-5) % Nucleated RBCs/100 WBC (0-5) % Differential Comment SCAN Diff Path Review Reviewed Platelet Estimate MKD DEC (ADEQ) Immature Plt Fraction (1.0-7.9) % Plt Morphology Comment RBC Morphology Polychromasia 2+ Hypochromasia 1+ Anisocytosis 1+ Microcytosis 1+ Spherocytes Ovalocytes Schistocytes Retic Count (0.5-1.5) % Absolute Retic 0.33 (0-5) 10^3/uL Immature Retic Fraction (3.00-15.90) % Retic Hgb Equivalent (30-35) pg Haptoglobin (34-200) mg/dL PT (11.7-14.9) SECONDS INR APTT (24.1-36.2) Seconds Fibrinogen (203-444) mg/dl D-Dimer Quant (PE/DVT) Specimen Type Sample Site pH (7.35-7.45) Bicarbonate Actual (22-26) mmol/L POC Total CO2 mmol/L Base Excess (-2 to +2) mmol/L O2 Saturation (95-99) % O2 % ABG pCO2 (35-45) mmHg ABG pO2 (75-100) mmHG Sage Test Respiration Rate O2 Delivery Device Liter Flow /min Minute Volume Vent Mode Tidal Volume POC PEEP Blood Gas Notified Whom Blood Gas Notified Time Sodium (136-145) mmol/L Potassium (3.5-5.1) mmol/L Chloride (98-107) mmol/L Carbon Dioxide (21.0-32.0) mmol/L Anion Gap (5-15) BUN (7-18) mg/dL Creatinine (0.70-1.30) mg/dL Estim Creat Clear Calc ml/min Est GFR (MDRD) Af Amer (>60) mL/min Est GFR (MDRD) Non-Af (>60) mL/min BUN/Creatinine Ratio (10-20) RATIO Glucose (74-106) mg/dL Hemoglobin A1c (4.2-6.3) % Lactic Acid (0.4-2.0) mmol/L Calcium (8.5-10.1) mg/dL Phosphorus (2.5-4.9) mg/dL Magnesium (1.6-2.6) mg/dL Iron (65-175) ug/dL TIBC (250-450) ug/dL Iron Saturation (15.0-55.0) % Total Bilirubin (0.20-1.00) mg/dL Direct Bilirubin (0.00-0.30) mg/dL AST (15-37) U/L ALT (16-61) U/L Alkaline Phosphatase (45-117) U/L Lactate Dehydrogenase (87-241) U/L Total Creatine Kinase (39-308) U/L Troponin I (<0.045) ng/mL B-Natriuretic Peptide (0-100) pg/mL Total Protein (6.4-8.2) g/dL Albumin (3.2-5.0) g/dL Globulin (2.2-4.2) g/dL Albumin/Globulin Ratio (0.9-2.4) RATIO Triglycerides ( - 199) mg/dL Vitamin B12 (211-911) pg/mL Folate (3.1-55.4) ng/mL Urine Color (Yellow) Urine Clarity (Clear) Urine pH (5.0 - 8.0) Ur Specific [place] (1.002-1.030) Urine Protein (Negative) mg/dl Urine Glucose (UA) (Normal) mg/dl Urine Ketones (Negative) mg/dl Urine Occult Blood (Negative) /ul Urine Nitrite (Negative) Urine Bilirubin (Negative) mg/dL Urine Urobilinogen (Normal) mg/dl Ur Leukocyte Esterase (Negative) /ul Urine RBC (0-5) /hpf Urine WBC (0-5) /hpf Ur Squamous Epith Cells (0-5) /hpf Urine Bacteria (None Seen) /hpf Urine Mucus (<or=2+) /hpf Vancomycin Trough (5.0-15.0) ug/mL Random Vancomycin (0.0-15.0) ug/mL Heparin-induced Plt Ab (0.000-0.400) OD H. pylori IgG Antibody (0.00-0.79) MRSA (PCR) (Negative) POC Glucose 176 H 147 H (70-110) mg/dL Blood Type Antibody Screen Crossmatch 06/11/18 06/11/18 06/11/18 Range/Units 17:25 12:08 05:37 WBC (4.4-11.0) K/mm3 Corrected WBC (4.4-11.0) K/mm3 RBC (4.6-6.2) M/mm3 Hgb (13.0-16.5) g/dl Hct (40-54) % MCV (80-94) fL MCH (27.0-32.0) pg MCHC (32-36) g/gl RDW (11.6-14.6) % RDW Differential (35.1-43.9) fl Plt Count (150-450) K/mm3 MPV (6.2-12.0) fl Immature Gran % (Auto) (0.0-0.9) % Neut % (Auto) (47-70) % Lymph % (Auto) (19-41) % [place] % (Auto) (0-10) % Eos % (Auto) (0-5) % Baso % (Auto) (0-1) % Absolute Neuts (auto) (2.0-7.7) X10^3/uL Absolute Lymphs (auto) (0.83-4.51) X10^3/ul Total Counted Neutrophils % (Manual) (47-70) % Band Neutrophils % (0-5) % Lymphocytes % (Manual) (19-41) % Monocytes % (Manual) (0-10) % Eosinophils % (Manual) (0-5) % Metamyelocytes % (0-1) % Myelocytes % (0-0) Promyelocytes % (0-0) Blast Cells % (0-0) % Nucleated RBC % (0-5) % Nucleated RBCs/100 WBC (0-5) % Differential Comment Diff Path Review Platelet Estimate (ADEQ) Immature Plt Fraction (1.0-7.9) % Plt Morphology Comment RBC Morphology Polychromasia Hypochromasia Anisocytosis Microcytosis Spherocytes Ovalocytes Schistocytes Retic Count (0.5-1.5) % Absolute Retic (0-5) 10^3/uL Immature Retic Fraction (3.00-15.90) % Retic Hgb Equivalent (30-35) pg Haptoglobin (34-200) mg/dL PT (11.7-14.9) SECONDS INR APTT (24.1-36.2) Seconds Fibrinogen (203-444) mg/dl D-Dimer Quant (PE/DVT) Specimen Type Sample Site pH (7.35-7.45) Bicarbonate Actual (22-26) mmol/L POC Total CO2 mmol/L Base Excess (-2 to +2) mmol/L O2 Saturation (95-99) % O2 % ABG pCO2 (35-45) mmHg ABG pO2 (75-100) mmHG Sage Test Respiration Rate O2 Delivery Device Liter Flow /min Minute Volume Vent Mode Tidal Volume POC PEEP Blood Gas Notified Whom Blood Gas Notified Time Sodium (136-145) mmol/L Potassium 3.3 L (3.5-5.1) mmol/L Chloride (98-107) mmol/L Carbon Dioxide (21.0-32.0) mmol/L Anion Gap (5-15) BUN (7-18) mg/dL Creatinine (0.70-1.30) mg/dL Estim Creat Clear Calc ml/min Est GFR (MDRD) Af Amer (>60) mL/min Est GFR (MDRD) Non-Af (>60) mL/min BUN/Creatinine Ratio (10-20) RATIO Glucose (74-106) mg/dL Hemoglobin A1c (4.2-6.3) % Lactic Acid (0.4-2.0) mmol/L Calcium (8.5-10.1) mg/dL Phosphorus (2.5-4.9) mg/dL Magnesium (1.6-2.6) mg/dL Iron (65-175) ug/dL TIBC (250-450) ug/dL Iron Saturation (15.0-55.0) % Total Bilirubin (0.20-1.00) mg/dL Direct Bilirubin (0.00-0.30) mg/dL AST (15-37) U/L ALT (16-61) U/L Alkaline Phosphatase (45-117) U/L Lactate Dehydrogenase (87-241) U/L Total Creatine Kinase (39-308) U/L Troponin I (<0.045) ng/mL B-Natriuretic Peptide (0-100) pg/mL Total Protein (6.4-8.2) g/dL Albumin (3.2-5.0) g/dL Globulin (2.2-4.2) g/dL Albumin/Globulin Ratio (0.9-2.4) RATIO Triglycerides ( - 199) mg/dL Vitamin B12 (211-911) pg/mL Folate (3.1-55.4) ng/mL Urine Color (Yellow) Urine Clarity (Clear) Urine pH (5.0 - 8.0) Ur Specific [place] (1.002-1.030) Urine Protein (Negative) mg/dl Urine Glucose (UA) (Normal) mg/dl Urine Ketones (Negative) mg/dl Urine Occult Blood (Negative) /ul Urine Nitrite (Negative) Urine Bilirubin (Negative) mg/dL Urine Urobilinogen (Normal) mg/dl Ur Leukocyte Esterase (Negative) /ul Urine RBC (0-5) /hpf Urine WBC (0-5) /hpf Ur Squamous Epith Cells (0-5) /hpf Urine Bacteria (None Seen) /hpf Urine Mucus (<or=2+) /hpf Vancomycin Trough (5.0-15.0) ug/mL Random Vancomycin (0.0-15.0) ug/mL Heparin-induced Plt Ab (0.000-0.400) OD H. pylori IgG Antibody (0.00-0.79) MRSA (PCR) (Negative) POC Glucose 228 H 230 H (70-110) mg/dL Blood Type Antibody Screen Crossmatch 06/11/18 06/11/18 06/11/18 Range/Units 04:10 04:10 00:27 WBC 8.3 (4.4-11.0) K/mm3 Corrected WBC (4.4-11.0) K/mm3 RBC 3.26 L (4.6-6.2) M/mm3 Hgb 9.7 L (13.0-16.5) g/dl Hct 30.2 L (40-54) % MCV 92.6 (80-94) fL MCH 29.8 (27.0-32.0) pg MCHC 32.1 (32-36) g/gl RDW 16.6 H (11.6-14.6) % RDW Differential 52.7 H (35.1-43.9) fl Plt Count 30 L* (150-450) K/mm3 MPV (6.2-12.0) fl Immature Gran % (Auto) 2.000 H (0.0-0.9) % Neut % (Auto) 82.7 H (47-70) % Lymph % (Auto) 11.4 L (19-41) % [place] % (Auto) 2.5 (0-10) % Eos % (Auto) 0.8 (0-5) % Baso % (Auto) 0.6 (0-1) % Absolute Neuts (auto) 6.9 (2.0-7.7) X10^3/uL Absolute Lymphs (auto) 0.95 (0.83-4.51) X10^3/ul Total Counted Not Reportable Neutrophils % (Manual) (47-70) % Band Neutrophils % (0-5) % Lymphocytes % (Manual) (19-41) % Monocytes % (Manual) (0-10) % Eosinophils % (Manual) (0-5) % Metamyelocytes % (0-1) % Myelocytes % (0-0) Promyelocytes % (0-0) Blast Cells % (0-0) % Nucleated RBC % 11.3 H (0-5) % Nucleated RBCs/100 WBC (0-5) % Differential Comment SCAN Diff Path Review Reviewed Platelet Estimate MKD DEC (ADEQ) Immature Plt Fraction (1.0-7.9) % Plt Morphology Comment LARGE RBC Morphology Polychromasia 1+ Hypochromasia 1+ Anisocytosis 1+ Microcytosis 1+ Spherocytes Ovalocytes Schistocytes Retic Count (0.5-1.5) % Absolute Retic 0.94 (0-5) 10^3/uL Immature Retic Fraction (3.00-15.90) % Retic Hgb Equivalent (30-35) pg Haptoglobin (34-200) mg/dL PT (11.7-14.9) SECONDS INR APTT (24.1-36.2) Seconds Fibrinogen (203-444) mg/dl D-Dimer Quant (PE/DVT) Specimen Type Sample Site pH (7.35-7.45) Bicarbonate Actual (22-26) mmol/L POC Total CO2 mmol/L Base Excess (-2 to +2) mmol/L O2 Saturation (95-99) % O2 % ABG pCO2 (35-45) mmHg ABG pO2 (75-100) mmHG Sage Test Respiration Rate O2 Delivery Device Liter Flow /min Minute Volume Vent Mode Tidal Volume POC PEEP Blood Gas Notified Whom Blood Gas Notified Time Sodium 156 H (136-145) mmol/L Potassium 2.9 L (3.5-5.1) mmol/L Chloride 126 H (98-107) mmol/L Carbon Dioxide 19.0 L (21.0-32.0) mmol/L Anion Gap 11 (5-15) BUN 75 H (7-18) mg/dL Creatinine 1.67 H (0.70-1.30) mg/dL Estim Creat Clear Calc 32.90 ml/min Est GFR (MDRD) Af Amer 51 L (>60) mL/min Est GFR (MDRD) Non-Af 42 L (>60) mL/min BUN/Creatinine Ratio 44.9 H (10-20) RATIO Glucose 248 H (74-106) mg/dL Hemoglobin A1c (4.2-6.3) % Lactic Acid (0.4-2.0) mmol/L Calcium 8.3 L (8.5-10.1) mg/dL Phosphorus (2.5-4.9) mg/dL Magnesium (1.6-2.6) mg/dL Iron (65-175) ug/dL TIBC (250-450) ug/dL Iron Saturation (15.0-55.0) % Total Bilirubin (0.20-1.00) mg/dL Direct Bilirubin (0.00-0.30) mg/dL AST (15-37) U/L ALT (16-61) U/L Alkaline Phosphatase (45-117) U/L Lactate Dehydrogenase (87-241) U/L Total Creatine Kinase (39-308) U/L Troponin I (<0.045) ng/mL B-Natriuretic Peptide (0-100) pg/mL Total Protein (6.4-8.2) g/dL Albumin (3.2-5.0) g/dL Globulin (2.2-4.2) g/dL Albumin/Globulin Ratio (0.9-2.4) RATIO Triglycerides ( - 199) mg/dL Vitamin B12 (211-911) pg/mL Folate (3.1-55.4) ng/mL Urine Color (Yellow) Urine Clarity (Clear) Urine pH (5.0 - 8.0) Ur Specific [place] (1.002-1.030) Urine Protein (Negative) mg/dl Urine Glucose (UA) (Normal) mg/dl Urine Ketones (Negative) mg/dl Urine Occult Blood (Negative) /ul Urine Nitrite (Negative) Urine Bilirubin (Negative) mg/dL Urine Urobilinogen (Normal) mg/dl Ur Leukocyte Esterase (Negative) /ul Urine RBC (0-5) /hpf Urine WBC (0-5) /hpf Ur Squamous Epith Cells (0-5) /hpf Urine Bacteria (None Seen) /hpf Urine Mucus (<or=2+) /hpf Vancomycin Trough (5.0-15.0) ug/mL Random Vancomycin (0.0-15.0) ug/mL Heparin-induced Plt Ab (0.000-0.400) OD H. pylori IgG Antibody (0.00-0.79) MRSA (PCR) (Negative) POC Glucose 226 H (70-110) mg/dL Blood Type Antibody Screen Crossmatch 06/10/18 06/10/18 06/10/18 Range/Units 22:20 16:32 14:20 WBC 9.8 (4.4-11.0) K/mm3 Corrected WBC (4.4-11.0) K/mm3 RBC 2.52 L (4.6-6.2) M/mm3 Hgb 9.2 L 7.5 L (13.0-16.5) g/dl Hct 28.7 L 23.3 L (40-54) % MCV 92.5 (80-94) fL MCH 29.8 (27.0-32.0) pg MCHC 32.2 (32-36) g/gl RDW 16.7 H (11.6-14.6) % RDW Differential 53.2 H (35.1-43.9) fl Plt Count 41 L* (150-450) K/mm3 MPV 10.2 (6.2-12.0) fl Immature Gran % (Auto) (0.0-0.9) % Neut % (Auto) (47-70) % Lymph % (Auto) (19-41) % [place] % (Auto) (0-10) % Eos % (Auto) (0-5) % Baso % (Auto) (0-1) % Absolute Neuts (auto) (2.0-7.7) X10^3/uL Absolute Lymphs (auto) (0.83-4.51) X10^3/ul Total Counted Neutrophils % (Manual) (47-70) % Band Neutrophils % (0-5) % Lymphocytes % (Manual) (19-41) % Monocytes % (Manual) (0-10) % Eosinophils % (Manual) (0-5) % Metamyelocytes % (0-1) % Myelocytes % (0-0) Promyelocytes % (0-0) Blast Cells % (0-0) % Nucleated RBC % (0-5) % Nucleated RBCs/100 WBC (0-5) % Differential Comment Diff Path Review Reviewed Platelet Estimate (ADEQ) Immature Plt Fraction (1.0-7.9) % Plt Morphology Comment RBC Morphology Polychromasia Hypochromasia Anisocytosis Microcytosis Spherocytes Ovalocytes Schistocytes Retic Count (0.5-1.5) % Absolute Retic (0-5) 10^3/uL Immature Retic Fraction (3.00-15.90) % Retic Hgb Equivalent (30-35) pg Haptoglobin (34-200) mg/dL PT (11.7-14.9) SECONDS INR APTT (24.1-36.2) Seconds Fibrinogen (203-444) mg/dl D-Dimer Quant (PE/DVT) Specimen Type Sample Site pH (7.35-7.45) Bicarbonate Actual (22-26) mmol/L POC Total CO2 mmol/L Base Excess (-2 to +2) mmol/L O2 Saturation (95-99) % O2 % ABG pCO2 (35-45) mmHg ABG pO2 (75-100) mmHG Sage Test Respiration Rate O2 Delivery Device Liter Flow /min Minute Volume Vent Mode Tidal Volume POC PEEP Blood Gas Notified Whom Blood Gas Notified Time Sodium (136-145) mmol/L Potassium (3.5-5.1) mmol/L Chloride (98-107) mmol/L Carbon Dioxide (21.0-32.0) mmol/L Anion Gap (5-15) BUN (7-18) mg/dL Creatinine (0.70-1.30) mg/dL Estim Creat Clear Calc ml/min Est GFR (MDRD) Af Amer (>60) mL/min Est GFR (MDRD) Non-Af (>60) mL/min BUN/Creatinine Ratio (10-20) RATIO Glucose (74-106) mg/dL Hemoglobin A1c (4.2-6.3) % Lactic Acid (0.4-2.0) mmol/L Calcium (8.5-10.1) mg/dL Phosphorus (2.5-4.9) mg/dL Magnesium (1.6-2.6) mg/dL Iron (65-175) ug/dL TIBC (250-450) ug/dL Iron Saturation (15.0-55.0) % Total Bilirubin (0.20-1.00) mg/dL Direct Bilirubin (0.00-0.30) mg/dL AST (15-37) U/L ALT (16-61) U/L Alkaline Phosphatase (45-117) U/L Lactate Dehydrogenase (87-241) U/L Total Creatine Kinase (39-308) U/L Troponin I (<0.045) ng/mL B-Natriuretic Peptide (0-100) pg/mL Total Protein (6.4-8.2) g/dL Albumin (3.2-5.0) g/dL Globulin (2.2-4.2) g/dL Albumin/Globulin Ratio (0.9-2.4) RATIO Triglycerides ( - 199) mg/dL Vitamin B12 (211-911) pg/mL Folate (3.1-55.4) ng/mL Urine Color (Yellow) Urine Clarity (Clear) Urine pH (5.0 - 8.0) Ur Specific [place] (1.002-1.030) Urine Protein (Negative) mg/dl Urine Glucose (UA) (Normal) mg/dl Urine Ketones (Negative) mg/dl Urine Occult Blood (Negative) /ul Urine Nitrite (Negative) Urine Bilirubin (Negative) mg/dL Urine Urobilinogen (Normal) mg/dl Ur Leukocyte Esterase (Negative) /ul Urine RBC (0-5) /hpf Urine WBC (0-5) /hpf Ur Squamous Epith Cells (0-5) /hpf Urine Bacteria (None Seen) /hpf Urine Mucus (<or=2+) /hpf Vancomycin Trough (5.0-15.0) ug/mL Random Vancomycin (0.0-15.0) ug/mL Heparin-induced Plt Ab (0.000-0.400) OD H. pylori IgG Antibody (0.00-0.79) MRSA (PCR) (Negative) POC Glucose 210 H (70-110) mg/dL Blood Type Antibody Screen Crossmatch 06/10/18 06/10/18 06/10/18 Range/Units 11:23 05:45 03:45 WBC (4.4-11.0) K/mm3 Corrected WBC (4.4-11.0) K/mm3 RBC (4.6-6.2) M/mm3 Hgb (13.0-16.5) g/dl Hct (40-54) % MCV (80-94) fL MCH (27.0-32.0) pg MCHC (32-36) g/gl RDW (11.6-14.6) % RDW Differential (35.1-43.9) fl Plt Count (150-450) K/mm3 MPV (6.2-12.0) fl Immature Gran % (Auto) (0.0-0.9) % Neut % (Auto) (47-70) % Lymph % (Auto) (19-41) % [place] % (Auto) (0-10) % Eos % (Auto) (0-5) % Baso % (Auto) (0-1) % Absolute Neuts (auto) (2.0-7.7) X10^3/uL Absolute Lymphs (auto) (0.83-4.51) X10^3/ul Total Counted Neutrophils % (Manual) (47-70) % Band Neutrophils % (0-5) % Lymphocytes % (Manual) (19-41) % Monocytes % (Manual) (0-10) % Eosinophils % (Manual) (0-5) % Metamyelocytes % (0-1) % Myelocytes % (0-0) Promyelocytes % (0-0) Blast Cells % (0-0) % Nucleated RBC % (0-5) % Nucleated RBCs/100 WBC (0-5) % Differential Comment Diff Path Review Platelet Estimate (ADEQ) Immature Plt Fraction (1.0-7.9) % Plt Morphology Comment RBC Morphology Polychromasia Hypochromasia Anisocytosis Microcytosis Spherocytes Ovalocytes Schistocytes Retic Count (0.5-1.5) % Absolute Retic (0-5) 10^3/uL Immature Retic Fraction (3.00-15.90) % Retic Hgb Equivalent (30-35) pg Haptoglobin (34-200) mg/dL PT (11.7-14.9) SECONDS INR APTT (24.1-36.2) Seconds Fibrinogen (203-444) mg/dl D-Dimer Quant (PE/DVT) Specimen Type Sample Site pH (7.35-7.45) Bicarbonate Actual (22-26) mmol/L POC Total CO2 mmol/L Base Excess (-2 to +2) mmol/L O2 Saturation (95-99) % O2 % ABG pCO2 (35-45) mmHg ABG pO2 (75-100) mmHG Sage Test Respiration Rate O2 Delivery Device Liter Flow /min Minute Volume Vent Mode Tidal Volume POC PEEP Blood Gas Notified Whom Blood Gas Notified Time Sodium (136-145) mmol/L Potassium (3.5-5.1) mmol/L Chloride (98-107) mmol/L Carbon Dioxide (21.0-32.0) mmol/L Anion Gap (5-15) BUN (7-18) mg/dL Creatinine (0.70-1.30) mg/dL Estim Creat Clear Calc ml/min Est GFR (MDRD) Af Amer (>60) mL/min Est GFR (MDRD) Non-Af (>60) mL/min BUN/Creatinine Ratio (10-20) RATIO Glucose (74-106) mg/dL Hemoglobin A1c (4.2-6.3) % Lactic Acid (0.4-2.0) mmol/L Calcium (8.5-10.1) mg/dL Phosphorus (2.5-4.9) mg/dL Magnesium 2.6 (1.6-2.6) mg/dL Iron (65-175) ug/dL TIBC (250-450) ug/dL Iron Saturation (15.0-55.0) % Total Bilirubin (0.20-1.00) mg/dL Direct Bilirubin (0.00-0.30) mg/dL AST (15-37) U/L ALT (16-61) U/L Alkaline Phosphatase (45-117) U/L Lactate Dehydrogenase (87-241) U/L Total Creatine Kinase (39-308) U/L Troponin I (<0.045) ng/mL B-Natriuretic Peptide (0-100) pg/mL Total Protein (6.4-8.2) g/dL Albumin (3.2-5.0) g/dL Globulin (2.2-4.2) g/dL Albumin/Globulin Ratio (0.9-2.4) RATIO Triglycerides ( - 199) mg/dL Vitamin B12 (211-911) pg/mL Folate (3.1-55.4) ng/mL Urine Color (Yellow) Urine Clarity (Clear) Urine pH (5.0 - 8.0) Ur Specific [place] (1.002-1.030) Urine Protein (Negative) mg/dl Urine Glucose (UA) (Normal) mg/dl Urine Ketones (Negative) mg/dl Urine Occult Blood (Negative) /ul Urine Nitrite (Negative) Urine Bilirubin (Negative) mg/dL Urine Urobilinogen (Normal) mg/dl Ur Leukocyte Esterase (Negative) /ul Urine RBC (0-5) /hpf Urine WBC (0-5) /hpf Ur Squamous Epith Cells (0-5) /hpf Urine Bacteria (None Seen) /hpf Urine Mucus (<or=2+) /hpf Vancomycin Trough (5.0-15.0) ug/mL Random Vancomycin (0.0-15.0) ug/mL Heparin-induced Plt Ab (0.000-0.400) OD H. pylori IgG Antibody (0.00-0.79) MRSA (PCR) (Negative) POC Glucose 280 H 217 H (70-110) mg/dL Blood Type Antibody Screen Crossmatch 06/10/18 06/10/18 06/10/18 Range/Units 03:45 03:45 03:45 WBC [employer]ES ENA[employer] LEAD (4.4-11.0) K/mm3 Corrected WBC 8.5 (4.4-11.0) K/mm3 RBC 3.07 L (4.6-6.2) M/mm3 Hgb 9.2 L (13.0-16.5) g/dl Hct 28.5 L (40-54) % MCV 92.8 (80-94) fL MCH 30.0 (27.0-32.0) pg MCHC 32.3 (32-36) g/gl RDW 16.2 H (11.6-14.6) % RDW Differential 51.5 H (35.1-43.9) fl Plt Count 44 L* (150-450) K/mm3 MPV 11.0 (6.2-12.0) fl Immature Gran % (Auto) (0.0-0.9) % Neut % (Auto) Not Reportable (47-70) % Lymph % (Auto) (19-41) % [place] % (Auto) (0-10) % Eos % (Auto) (0-5) % Baso % (Auto) (0-1) % Absolute Neuts (auto) Not Reportable (2.0-7.7) X10^3/uL Absolute Lymphs (auto) (0.83-4.51) X10^3/ul Total Counted 100 Neutrophils % (Manual) 79 H (47-70) % Band Neutrophils % 4 (0-5) % Lymphocytes % (Manual) 12 L (19-41) % Monocytes % (Manual) 2 (0-10) % Eosinophils % (Manual) 2 (0-5) % Metamyelocytes % 1 (0-1) % Myelocytes % (0-0) Promyelocytes % (0-0) Blast Cells % (0-0) % Nucleated RBC % (0-5) % Nucleated RBCs/100 WBC 23 H (0-5) % Differential Comment Diff Path Review Reviewed Platelet Estimate MKD DEC (ADEQ) Immature Plt Fraction (1.0-7.9) % Plt Morphology Comment RBC Morphology Polychromasia Hypochromasia 1+ Anisocytosis 2+ Microcytosis Spherocytes Ovalocytes Schistocytes Retic Count (0.5-1.5) % Absolute Retic (0-5) 10^3/uL Immature Retic Fraction (3.00-15.90) % Retic Hgb Equivalent (30-35) pg Haptoglobin (34-200) mg/dL PT 20.1 H (11.7-14.9) SECONDS INR 1.7 APTT 37.4 H (24.1-36.2) Seconds Fibrinogen 218 (203-444) mg/dl D-Dimer Quant (PE/DVT) Specimen Type Sample Site pH (7.35-7.45) Bicarbonate Actual (22-26) mmol/L POC Total CO2 mmol/L Base Excess (-2 to +2) mmol/L O2 Saturation (95-99) % O2 % ABG pCO2 (35-45) mmHg ABG pO2 (75-100) mmHG Sage Test Respiration Rate O2 Delivery Device Liter Flow /min Minute Volume Vent Mode Tidal Volume POC PEEP Blood Gas Notified Whom Blood Gas Notified Time Sodium 155 H (136-145) mmol/L Potassium 2.9 L (3.5-5.1) mmol/L Chloride 126 H (98-107) mmol/L Carbon Dioxide 14.0 L (21.0-32.0) mmol/L Anion Gap 15 (5-15) BUN 89 H (7-18) mg/dL Creatinine 2.01 H (0.70-1.30) mg/dL Estim Creat Clear Calc 27.33 ml/min Est GFR (MDRD) Af Amer 42 L (>60) mL/min Est GFR (MDRD) Non-Af 34 L (>60) mL/min BUN/Creatinine Ratio 44.3 H (10-20) RATIO Glucose 229 H (74-106) mg/dL Hemoglobin A1c (4.2-6.3) % Lactic Acid (0.4-2.0) mmol/L Calcium 8.1 L (8.5-10.1) mg/dL Phosphorus (2.5-4.9) mg/dL Magnesium (1.6-2.6) mg/dL Iron (65-175) ug/dL TIBC (250-450) ug/dL Iron Saturation (15.0-55.0) % Total Bilirubin (0.20-1.00) mg/dL Direct Bilirubin (0.00-0.30) mg/dL AST (15-37) U/L ALT (16-61) U/L Alkaline Phosphatase (45-117) U/L Lactate Dehydrogenase (87-241) U/L Total Creatine Kinase (39-308) U/L Troponin I (<0.045) ng/mL B-Natriuretic Peptide (0-100) pg/mL Total Protein (6.4-8.2) g/dL Albumin (3.2-5.0) g/dL Globulin (2.2-4.2) g/dL Albumin/Globulin Ratio (0.9-2.4) RATIO Triglycerides ( - 199) mg/dL Vitamin B12 (211-911) pg/mL Folate (3.1-55.4) ng/mL Urine Color (Yellow) Urine Clarity (Clear) Urine pH (5.0 - 8.0) Ur Specific [place] (1.002-1.030) Urine Protein (Negative) mg/dl Urine Glucose (UA) (Normal) mg/dl Urine Ketones (Negative) mg/dl Urine Occult Blood (Negative) /ul Urine Nitrite (Negative) Urine Bilirubin (Negative) mg/dL Urine Urobilinogen (Normal) mg/dl Ur Leukocyte Esterase (Negative) /ul Urine RBC (0-5) /hpf Urine WBC (0-5) /hpf Ur Squamous Epith Cells (0-5) /hpf Urine Bacteria (None Seen) /hpf Urine Mucus (<or=2+) /hpf Vancomycin Trough (5.0-15.0) ug/mL Random Vancomycin (0.0-15.0) ug/mL Heparin-induced Plt Ab (0.000-0.400) OD H. pylori IgG Antibody (0.00-0.79) MRSA (PCR) (Negative) POC Glucose (70-110) mg/dL Blood Type Antibody Screen Crossmatch 06/09/18 06/09/18 06/09/18 Range/Units 23:39 22:40 17:19 WBC 14.4 H (4.4-11.0) K/mm3 Corrected WBC (4.4-11.0) K/mm3 RBC 3.01 L (4.6-6.2) M/mm3 Hgb 8.9 L (13.0-16.5) g/dl Hct 27.8 L (40-54) % MCV 92.4 (80-94) fL MCH 29.6 (27.0-32.0) pg MCHC 32.0 (32-36) g/gl RDW 15.8 H (11.6-14.6) % RDW Differential 50.3 H (35.1-43.9) fl Plt Count 44 L* (150-450) K/mm3 MPV 8.6 (6.2-12.0) fl Immature Gran % (Auto) (0.0-0.9) % Neut % (Auto) (47-70) % Lymph % (Auto) (19-41) % [place] % (Auto) (0-10) % Eos % (Auto) (0-5) % Baso % (Auto) (0-1) % Absolute Neuts (auto) (2.0-7.7) X10^3/uL Absolute Lymphs (auto) (0.83-4.51) X10^3/ul Total Counted Neutrophils % (Manual) (47-70) % Band Neutrophils % (0-5) % Lymphocytes % (Manual) (19-41) % Monocytes % (Manual) (0-10) % Eosinophils % (Manual) (0-5) % Metamyelocytes % (0-1) % Myelocytes % (0-0) Promyelocytes % (0-0) Blast Cells % (0-0) % Nucleated RBC % (0-5) % Nucleated RBCs/100 WBC (0-5) % Differential Comment SCANNED Diff Path Review Reviewed Platelet Estimate (ADEQ) Immature Plt Fraction (1.0-7.9) % Plt Morphology Comment RBC Morphology Polychromasia Hypochromasia Anisocytosis Microcytosis Spherocytes Ovalocytes Schistocytes Retic Count (0.5-1.5) % Absolute Retic (0-5) 10^3/uL Immature Retic Fraction (3.00-15.90) % Retic Hgb Equivalent (30-35) pg Haptoglobin (34-200) mg/dL PT (11.7-14.9) SECONDS INR APTT (24.1-36.2) Seconds Fibrinogen (203-444) mg/dl D-Dimer Quant (PE/DVT) Specimen Type Sample Site pH (7.35-7.45) Bicarbonate Actual (22-26) mmol/L POC Total CO2 mmol/L Base Excess (-2 to +2) mmol/L O2 Saturation (95-99) % O2 % ABG pCO2 (35-45) mmHg ABG pO2 (75-100) mmHG Sage Test Respiration Rate O2 Delivery Device Liter Flow /min Minute Volume Vent Mode Tidal Volume POC PEEP Blood Gas Notified Whom Blood Gas Notified Time Sodium (136-145) mmol/L Potassium (3.5-5.1) mmol/L Chloride (98-107) mmol/L Carbon Dioxide (21.0-32.0) mmol/L Anion Gap (5-15) BUN (7-18) mg/dL Creatinine (0.70-1.30) mg/dL Estim Creat Clear Calc ml/min Est GFR (MDRD) Af Amer (>60) mL/min Est GFR (MDRD) Non-Af (>60) mL/min BUN/Creatinine Ratio (10-20) RATIO Glucose (74-106) mg/dL Hemoglobin A1c (4.2-6.3) % Lactic Acid (0.4-2.0) mmol/L Calcium (8.5-10.1) mg/dL Phosphorus (2.5-4.9) mg/dL Magnesium (1.6-2.6) mg/dL Iron (65-175) ug/dL TIBC (250-450) ug/dL Iron Saturation (15.0-55.0) % Total Bilirubin (0.20-1.00) mg/dL Direct Bilirubin (0.00-0.30) mg/dL AST (15-37) U/L ALT (16-61) U/L Alkaline Phosphatase (45-117) U/L Lactate Dehydrogenase (87-241) U/L Total Creatine Kinase (39-308) U/L Troponin I (<0.045) ng/mL B-Natriuretic Peptide (0-100) pg/mL Total Protein (6.4-8.2) g/dL Albumin (3.2-5.0) g/dL Globulin (2.2-4.2) g/dL Albumin/Globulin Ratio (0.9-2.4) RATIO Triglycerides ( - 199) mg/dL Vitamin B12 (211-911) pg/mL Folate (3.1-55.4) ng/mL Urine Color (Yellow) Urine Clarity (Clear) Urine pH (5.0 - 8.0) Ur Specific [place] (1.002-1.030) Urine Protein (Negative) mg/dl Urine Glucose (UA) (Normal) mg/dl Urine Ketones (Negative) mg/dl Urine Occult Blood (Negative) /ul Urine Nitrite (Negative) Urine Bilirubin (Negative) mg/dL Urine Urobilinogen (Normal) mg/dl Ur Leukocyte Esterase (Negative) /ul Urine RBC (0-5) /hpf Urine WBC (0-5) /hpf Ur Squamous Epith Cells (0-5) /hpf Urine Bacteria (None Seen) /hpf Urine Mucus (<or=2+) /hpf Vancomycin Trough (5.0-15.0) ug/mL Random Vancomycin (0.0-15.0) ug/mL Heparin-induced Plt Ab (0.000-0.400) OD H. pylori IgG Antibody (0.00-0.79) MRSA (PCR) (Negative) POC Glucose 184 H 157 H (70-110) mg/dL Blood Type Antibody Screen Crossmatch 06/09/18 06/09/18 06/09/18 Range/Units 13:05 12:30 06:09 WBC 12.9 H (4.4-11.0) K/mm3 Corrected WBC (4.4-11.0) K/mm3 RBC 2.10 L (4.6-6.2) M/mm3 Hgb 6.3 L (13.0-16.5) g/dl Hct 20.0 L (40-54) % MCV 95.2 H (80-94) fL MCH 30.0 (27.0-32.0) pg MCHC 31.5 L (32-36) g/gl RDW 18.1 H (11.6-14.6) % RDW Differential 56.2 H (35.1-43.9) fl Plt Count 39 L* (150-450) K/mm3 MPV 9.7 (6.2-12.0) fl Immature Gran % (Auto) (0.0-0.9) % Neut % (Auto) Not Reportable (47-70) % Lymph % (Auto) (19-41) % [place] % (Auto) (0-10) % Eos % (Auto) (0-5) % Baso % (Auto) (0-1) % Absolute Neuts (auto) 9.3 H (2.0-7.7) X10^3/uL Absolute Lymphs (auto) 2.83 (0.83-4.51) X10^3/ul Total Counted 100 Neutrophils % (Manual) 72 H (47-70) % Band Neutrophils % (0-5) % Lymphocytes % (Manual) 22 (19-41) % Monocytes % (Manual) 2 (0-10) % Eosinophils % (Manual) (0-5) % Metamyelocytes % 3 H (0-1) % Myelocytes % (0-0) Promyelocytes % 1 H (0-0) Blast Cells % (0-0) % Nucleated RBC % 34.1 H (0-5) % Nucleated RBCs/100 WBC (0-5) % Differential Comment Diff Path Review Reviewed Platelet Estimate MKD DEC (ADEQ) Immature Plt Fraction (1.0-7.9) % Plt Morphology Comment RBC Morphology Polychromasia 1+ Hypochromasia 3+ Anisocytosis Microcytosis 1+ Spherocytes Ovalocytes Schistocytes RARE Retic Count (0.5-1.5) % Absolute Retic 4.39 (0-5) 10^3/uL Immature Retic Fraction (3.00-15.90) % Retic Hgb Equivalent (30-35) pg Haptoglobin (34-200) mg/dL PT (11.7-14.9) SECONDS INR APTT (24.1-36.2) Seconds Fibrinogen (203-444) mg/dl D-Dimer Quant (PE/DVT) Specimen Type Sample Site pH (7.35-7.45) Bicarbonate Actual (22-26) mmol/L POC Total CO2 mmol/L Base Excess (-2 to +2) mmol/L O2 Saturation (95-99) % O2 % ABG pCO2 (35-45) mmHg ABG pO2 (75-100) mmHG Sage Test Respiration Rate O2 Delivery Device Liter Flow /min Minute Volume Vent Mode Tidal Volume POC PEEP Blood Gas Notified Whom Blood Gas Notified Time Sodium (136-145) mmol/L Potassium (3.5-5.1) mmol/L Chloride (98-107) mmol/L Carbon Dioxide (21.0-32.0) mmol/L Anion Gap (5-15) BUN (7-18) mg/dL Creatinine (0.70-1.30) mg/dL Estim Creat Clear Calc ml/min Est GFR (MDRD) Af Amer (>60) mL/min Est GFR (MDRD) Non-Af (>60) mL/min BUN/Creatinine Ratio (10-20) RATIO Glucose (74-106) mg/dL Hemoglobin A1c (4.2-6.3) % Lactic Acid (0.4-2.0) mmol/L Calcium (8.5-10.1) mg/dL Phosphorus (2.5-4.9) mg/dL Magnesium (1.6-2.6) mg/dL Iron (65-175) ug/dL TIBC (250-450) ug/dL Iron Saturation (15.0-55.0) % Total Bilirubin (0.20-1.00) mg/dL Direct Bilirubin (0.00-0.30) mg/dL AST (15-37) U/L ALT (16-61) U/L Alkaline Phosphatase (45-117) U/L Lactate Dehydrogenase (87-241) U/L Total Creatine Kinase (39-308) U/L Troponin I (<0.045) ng/mL B-Natriuretic Peptide (0-100) pg/mL Total Protein (6.4-8.2) g/dL Albumin (3.2-5.0) g/dL Globulin (2.2-4.2) g/dL Albumin/Globulin Ratio (0.9-2.4) RATIO Triglycerides ( - 199) mg/dL Vitamin B12 (211-911) pg/mL Folate (3.1-55.4) ng/mL Urine Color (Yellow) Urine Clarity (Clear) Urine pH (5.0 - 8.0) Ur Specific [place] (1.002-1.030) Urine Protein (Negative) mg/dl Urine Glucose (UA) (Normal) mg/dl Urine Ketones (Negative) mg/dl Urine Occult Blood (Negative) /ul Urine Nitrite (Negative) Urine Bilirubin (Negative) mg/dL Urine Urobilinogen (Normal) mg/dl Ur Leukocyte Esterase (Negative) /ul Urine RBC (0-5) /hpf Urine WBC (0-5) /hpf Ur Squamous Epith Cells (0-5) /hpf Urine Bacteria (None Seen) /hpf Urine Mucus (<or=2+) /hpf Vancomycin Trough (5.0-15.0) ug/mL Random Vancomycin (0.0-15.0) ug/mL Heparin-induced Plt Ab (0.000-0.400) OD H. pylori IgG Antibody (0.00-0.79) MRSA (PCR) (Negative) POC Glucose 148 H 165 H (70-110) mg/dL Blood Type Antibody Screen Crossmatch 06/09/18 06/09/18 06/09/18 Range/Units 05:30 05:30 05:30 WBC (4.4-11.0) K/mm3 Corrected WBC (4.4-11.0) K/mm3 RBC (4.6-6.2) M/mm3 Hgb (13.0-16.5) g/dl Hct (40-54) % MCV (80-94) fL MCH (27.0-32.0) pg MCHC (32-36) g/gl RDW (11.6-14.6) % RDW Differential (35.1-43.9) fl Plt Count (150-450) K/mm3 MPV (6.2-12.0) fl Immature Gran % (Auto) (0.0-0.9) % Neut % (Auto) (47-70) % Lymph % (Auto) (19-41) % [place] % (Auto) (0-10) % Eos % (Auto) (0-5) % Baso % (Auto) (0-1) % Absolute Neuts (auto) (2.0-7.7) X10^3/uL Absolute Lymphs (auto) (0.83-4.51) X10^3/ul Total Counted Neutrophils % (Manual) (47-70) % Band Neutrophils % (0-5) % Lymphocytes % (Manual) (19-41) % Monocytes % (Manual) (0-10) % Eosinophils % (Manual) (0-5) % Metamyelocytes % (0-1) % Myelocytes % (0-0) Promyelocytes % (0-0) Blast Cells % (0-0) % Nucleated RBC % (0-5) % Nucleated RBCs/100 WBC (0-5) % Differential Comment Diff Path Review Platelet Estimate (ADEQ) Immature Plt Fraction (1.0-7.9) % Plt Morphology Comment RBC Morphology Polychromasia Hypochromasia Anisocytosis Microcytosis Spherocytes Ovalocytes Schistocytes Retic Count (0.5-1.5) % Absolute Retic (0-5) 10^3/uL Immature Retic Fraction (3.00-15.90) % Retic Hgb Equivalent (30-35) pg Haptoglobin (34-200) mg/dL PT (11.7-14.9) SECONDS INR APTT (24.1-36.2) Seconds Fibrinogen (203-444) mg/dl D-Dimer Quant (PE/DVT) Specimen Type Sample Site pH (7.35-7.45) Bicarbonate Actual (22-26) mmol/L POC Total CO2 mmol/L Base Excess (-2 to +2) mmol/L O2 Saturation (95-99) % O2 % ABG pCO2 (35-45) mmHg ABG pO2 (75-100) mmHG Sage Test Respiration Rate O2 Delivery Device Liter Flow /min Minute Volume Vent Mode Tidal Volume POC PEEP Blood Gas Notified Whom Blood Gas Notified Time Sodium (136-145) mmol/L Potassium (3.5-5.1) mmol/L Chloride (98-107) mmol/L Carbon Dioxide (21.0-32.0) mmol/L Anion Gap (5-15) BUN (7-18) mg/dL Creatinine (0.70-1.30) mg/dL Estim Creat Clear Calc ml/min Est GFR (MDRD) Af Amer (>60) mL/min Est GFR (MDRD) Non-Af (>60) mL/min BUN/Creatinine Ratio (10-20) RATIO Glucose (74-106) mg/dL Hemoglobin A1c (4.2-6.3) % Lactic Acid (0.4-2.0) mmol/L Calcium (8.5-10.1) mg/dL Phosphorus (2.5-4.9) mg/dL Magnesium (1.6-2.6) mg/dL Iron (65-175) ug/dL TIBC (250-450) ug/dL Iron Saturation (15.0-55.0) % Total Bilirubin (0.20-1.00) mg/dL Direct Bilirubin (0.00-0.30) mg/dL AST (15-37) U/L ALT (16-61) U/L Alkaline Phosphatase (45-117) U/L Lactate Dehydrogenase (87-241) U/L Total Creatine Kinase (39-308) U/L Troponin I (<0.045) ng/mL B-Natriuretic Peptide (0-100) pg/mL Total Protein (6.4-8.2) g/dL Albumin (3.2-5.0) g/dL Globulin (2.2-4.2) g/dL Albumin/Globulin Ratio (0.9-2.4) RATIO Triglycerides ( - 199) mg/dL Vitamin B12 (211-911) pg/mL Folate (3.1-55.4) ng/mL Urine Color (Yellow) Urine Clarity (Clear) Urine pH (5.0 - 8.0) Ur Specific [place] (1.002-1.030) Urine Protein (Negative) mg/dl Urine Glucose (UA) (Normal) mg/dl Urine Ketones (Negative) mg/dl Urine Occult Blood (Negative) /ul Urine Nitrite (Negative) Urine Bilirubin (Negative) mg/dL Urine Urobilinogen (Normal) mg/dl Ur Leukocyte Esterase (Negative) /ul Urine RBC (0-5) /hpf Urine WBC (0-5) /hpf Ur Squamous Epith Cells (0-5) /hpf Urine Bacteria (None Seen) /hpf Urine Mucus (<or=2+) /hpf Vancomycin Trough (5.0-15.0) ug/mL Random Vancomycin (0.0-15.0) ug/mL Heparin-induced Plt Ab (0.000-0.400) OD H. pylori IgG Antibody (0.00-0.79) MRSA (PCR) (Negative) POC Glucose (70-110) mg/dL Blood Type AB POSITIVE Antibody Screen NEGATIVE Crossmatch See Detail See Detail See Detail 06/09/18 06/09/18 06/09/18 Range/Units 05:30 03:05 03:05 WBC (4.4-11.0) K/mm3 Corrected WBC (4.4-11.0) K/mm3 RBC (4.6-6.2) M/mm3 Hgb (13.0-16.5) g/dl Hct (40-54) % MCV (80-94) fL MCH (27.0-32.0) pg MCHC (32-36) g/gl RDW (11.6-14.6) % RDW Differential (35.1-43.9) fl Plt Count (150-450) K/mm3 MPV (6.2-12.0) fl Immature Gran % (Auto) (0.0-0.9) % Neut % (Auto) (47-70) % Lymph % (Auto) (19-41) % [place] % (Auto) (0-10) % Eos % (Auto) (0-5) % Baso % (Auto) (0-1) % Absolute Neuts (auto) (2.0-7.7) X10^3/uL Absolute Lymphs (auto) (0.83-4.51) X10^3/ul Total Counted Neutrophils % (Manual) (47-70) % Band Neutrophils % (0-5) % Lymphocytes % (Manual) (19-41) % Monocytes % (Manual) (0-10) % Eosinophils % (Manual) (0-5) % Metamyelocytes % (0-1) % Myelocytes % (0-0) Promyelocytes % (0-0) Blast Cells % (0-0) % Nucleated RBC % (0-5) % Nucleated RBCs/100 WBC (0-5) % Differential Comment Diff Path Review Platelet Estimate (ADEQ) Immature Plt Fraction (1.0-7.9) % Plt Morphology Comment RBC Morphology Polychromasia Hypochromasia Anisocytosis Microcytosis Spherocytes Ovalocytes Schistocytes Retic Count (0.5-1.5) % Absolute Retic (0-5) 10^3/uL Immature Retic Fraction (3.00-15.90) % Retic Hgb Equivalent (30-35) pg Haptoglobin (34-200) mg/dL PT (11.7-14.9) SECONDS INR APTT (24.1-36.2) Seconds Fibrinogen 180 L (203-444) mg/dl D-Dimer Quant (PE/DVT) Specimen Type Sample Site pH (7.35-7.45) Bicarbonate Actual (22-26) mmol/L POC Total CO2 mmol/L Base Excess (-2 to +2) mmol/L O2 Saturation (95-99) % O2 % ABG pCO2 (35-45) mmHg ABG pO2 (75-100) mmHG Sage Test Respiration Rate O2 Delivery Device Liter Flow /min Minute Volume Vent Mode Tidal Volume POC PEEP Blood Gas Notified Whom Blood Gas Notified Time Sodium 153 H (136-145) mmol/L Potassium 3.3 L (3.5-5.1) mmol/L Chloride 123 H (98-107) mmol/L Carbon Dioxide 17.0 L (21.0-32.0) mmol/L Anion Gap 13 (5-15) BUN 101 H* (7-18) mg/dL Creatinine 2.33 H (0.70-1.30) mg/dL Estim Creat Clear Calc 23.58 ml/min Est GFR (MDRD) Af Amer 35 L (>60) mL/min Est GFR (MDRD) Non-Af 29 L (>60) mL/min BUN/Creatinine Ratio 43.3 H (10-20) RATIO Glucose 291 H (74-106) mg/dL Hemoglobin A1c (4.2-6.3) % Lactic Acid (0.4-2.0) mmol/L Calcium 8.0 L (8.5-10.1) mg/dL Phosphorus 3.8 (2.5-4.9) mg/dL Magnesium 2.7 H (1.6-2.6) mg/dL Iron (65-175) ug/dL TIBC (250-450) ug/dL Iron Saturation (15.0-55.0) % Total Bilirubin (0.20-1.00) mg/dL Direct Bilirubin (0.00-0.30) mg/dL AST (15-37) U/L ALT (16-61) U/L Alkaline Phosphatase (45-117) U/L Lactate Dehydrogenase (87-241) U/L Total Creatine Kinase (39-308) U/L Troponin I (<0.045) ng/mL B-Natriuretic Peptide (0-100) pg/mL Total Protein (6.4-8.2) g/dL Albumin (3.2-5.0) g/dL Globulin (2.2-4.2) g/dL Albumin/Globulin Ratio (0.9-2.4) RATIO Triglycerides ( - 199) mg/dL Vitamin B12 (211-911) pg/mL Folate (3.1-55.4) ng/mL Urine Color (Yellow) Urine Clarity (Clear) Urine pH (5.0 - 8.0) Ur Specific [place] (1.002-1.030) Urine Protein (Negative) mg/dl Urine Glucose (UA) (Normal) mg/dl Urine Ketones (Negative) mg/dl Urine Occult Blood (Negative) /ul Urine Nitrite (Negative) Urine Bilirubin (Negative) mg/dL Urine Urobilinogen (Normal) mg/dl Ur Leukocyte Esterase (Negative) /ul Urine RBC (0-5) /hpf Urine WBC (0-5) /hpf Ur Squamous Epith Cells (0-5) /hpf Urine Bacteria (None Seen) /hpf Urine Mucus (<or=2+) /hpf Vancomycin Trough (5.0-15.0) ug/mL Random Vancomycin (0.0-15.0) ug/mL Heparin-induced Plt Ab (0.000-0.400) OD H. pylori IgG Antibody (0.00-0.79) MRSA (PCR) (Negative) POC Glucose (70-110) mg/dL Blood Type Antibody Screen Crossmatch 06/09/18 06/09/18 06/09/18 Range/Units 03:05 03:05 03:05 WBC 13.1 H (4.4-11.0) K/mm3 Corrected WBC (4.4-11.0) K/mm3 RBC 2.49 L (4.6-6.2) M/mm3 Hgb 7.6 L (13.0-16.5) g/dl Hct 23.5 L (40-54) % MCV 94.4 H (80-94) fL MCH 30.5 (27.0-32.0) pg MCHC 32.3 (32-36) g/gl RDW 17.3 H (11.6-14.6) % RDW Differential 55.8 H (35.1-43.9) fl Plt Count 15 L* (150-450) K/mm3 MPV (6.2-12.0) fl Immature Gran % (Auto) (0.0-0.9) % Neut % (Auto) Not Reportable (47-70) % Lymph % (Auto) (19-41) % [place] % (Auto) (0-10) % Eos % (Auto) (0-5) % Baso % (Auto) (0-1) % Absolute Neuts (auto) 10.0 H (2.0-7.7) X10^3/uL Absolute Lymphs (auto) 2.23 (0.83-4.51) X10^3/ul Total Counted 100 Neutrophils % (Manual) 73 H (47-70) % Band Neutrophils % 3 (0-5) % Lymphocytes % (Manual) 17 L (19-41) % Monocytes % (Manual) 1 (0-10) % Eosinophils % (Manual) (0-5) % Metamyelocytes % 3 H (0-1) % Myelocytes % 1 H (0-0) Promyelocytes % 1 H (0-0) Blast Cells % 1 H* (0-0) % Nucleated RBC % 39.8 H (0-5) % Nucleated RBCs/100 WBC (0-5) % Differential Comment Diff Path Review Reviewed Platelet Estimate MKD DEC (ADEQ) Immature Plt Fraction (1.0-7.9) % Plt Morphology Comment RBC Morphology Polychromasia 2+ Hypochromasia 1+ Anisocytosis 2+ Microcytosis 1+ Spherocytes Ovalocytes Schistocytes RARE Retic Count (0.5-1.5) % Absolute Retic 5.20 H (0-5) 10^3/uL Immature Retic Fraction (3.00-15.90) % Retic Hgb Equivalent (30-35) pg Haptoglobin 132 (34-200) mg/dL PT (11.7-14.9) SECONDS INR APTT (24.1-36.2) Seconds Fibrinogen (203-444) mg/dl D-Dimer Quant (PE/DVT) Specimen Type Sample Site pH (7.35-7.45) Bicarbonate Actual (22-26) mmol/L POC Total CO2 mmol/L Base Excess (-2 to +2) mmol/L O2 Saturation (95-99) % O2 % ABG pCO2 (35-45) mmHg ABG pO2 (75-100) mmHG Sage Test Respiration Rate O2 Delivery Device Liter Flow /min Minute Volume Vent Mode Tidal Volume POC PEEP Blood Gas Notified Whom Blood Gas Notified Time Sodium (136-145) mmol/L Potassium (3.5-5.1) mmol/L Chloride (98-107) mmol/L Carbon Dioxide (21.0-32.0) mmol/L Anion Gap (5-15) BUN (7-18) mg/dL Creatinine (0.70-1.30) mg/dL Estim Creat Clear Calc ml/min Est GFR (MDRD) Af Amer (>60) mL/min Est GFR (MDRD) Non-Af (>60) mL/min BUN/Creatinine Ratio (10-20) RATIO Glucose (74-106) mg/dL Hemoglobin A1c (4.2-6.3) % Lactic Acid (0.4-2.0) mmol/L Calcium (8.5-10.1) mg/dL Phosphorus (2.5-4.9) mg/dL Magnesium (1.6-2.6) mg/dL Iron (65-175) ug/dL TIBC (250-450) ug/dL Iron Saturation (15.0-55.0) % Total Bilirubin (0.20-1.00) mg/dL Direct Bilirubin (0.00-0.30) mg/dL AST (15-37) U/L ALT (16-61) U/L Alkaline Phosphatase (45-117) U/L Lactate Dehydrogenase (87-241) U/L Total Creatine Kinase (39-308) U/L Troponin I (<0.045) ng/mL B-Natriuretic Peptide (0-100) pg/mL Total Protein (6.4-8.2) g/dL Albumin (3.2-5.0) g/dL Globulin (2.2-4.2) g/dL Albumin/Globulin Ratio (0.9-2.4) RATIO Triglycerides ( - 199) mg/dL Vitamin B12 (211-911) pg/mL Folate (3.1-55.4) ng/mL Urine Color (Yellow) Urine Clarity (Clear) Urine pH (5.0 - 8.0) Ur Specific [place] (1.002-1.030) Urine Protein (Negative) mg/dl Urine Glucose (UA) (Normal) mg/dl Urine Ketones (Negative) mg/dl Urine Occult Blood (Negative) /ul Urine Nitrite (Negative) Urine Bilirubin (Negative) mg/dL Urine Urobilinogen (Normal) mg/dl Ur Leukocyte Esterase (Negative) /ul Urine RBC (0-5) /hpf Urine WBC (0-5) /hpf Ur Squamous Epith Cells (0-5) /hpf Urine Bacteria (None Seen) /hpf Urine Mucus (<or=2+) /hpf Vancomycin Trough (5.0-15.0) ug/mL Random Vancomycin 17.9 H (0.0-15.0) ug/mL Heparin-induced Plt Ab (0.000-0.400) OD H. pylori IgG Antibody (0.00-0.79) MRSA (PCR) (Negative) POC Glucose (70-110) mg/dL Blood Type Antibody Screen Crossmatch 06/08/18 06/08/18 06/08/18 Range/Units 23:59 18:15 15:05 WBC (4.4-11.0) K/mm3 Corrected WBC (4.4-11.0) K/mm3 RBC (4.6-6.2) M/mm3 Hgb (13.0-16.5) g/dl Hct (40-54) % MCV (80-94) fL MCH (27.0-32.0) pg MCHC (32-36) g/gl RDW (11.6-14.6) % RDW Differential (35.1-43.9) fl Plt Count (150-450) K/mm3 MPV (6.2-12.0) fl Immature Gran % (Auto) (0.0-0.9) % Neut % (Auto) (47-70) % Lymph % (Auto) (19-41) % [place] % (Auto) (0-10) % Eos % (Auto) (0-5) % Baso % (Auto) (0-1) % Absolute Neuts (auto) (2.0-7.7) X10^3/uL Absolute Lymphs (auto) (0.83-4.51) X10^3/ul Total Counted Neutrophils % (Manual) (47-70) % Band Neutrophils % (0-5) % Lymphocytes % (Manual) (19-41) % Monocytes % (Manual) (0-10) % Eosinophils % (Manual) (0-5) % Metamyelocytes % (0-1) % Myelocytes % (0-0) Promyelocytes % (0-0) Blast Cells % (0-0) % Nucleated RBC % (0-5) % Nucleated RBCs/100 WBC (0-5) % Differential Comment Diff Path Review Platelet Estimate (ADEQ) Immature Plt Fraction (1.0-7.9) % Plt Morphology Comment RBC Morphology Polychromasia Hypochromasia Anisocytosis Microcytosis Spherocytes Ovalocytes Schistocytes Retic Count (0.5-1.5) % Absolute Retic (0-5) 10^3/uL Immature Retic Fraction (3.00-15.90) % Retic Hgb Equivalent (30-35) pg Haptoglobin (34-200) mg/dL PT (11.7-14.9) SECONDS INR APTT (24.1-36.2) Seconds Fibrinogen (203-444) mg/dl D-Dimer Quant (PE/DVT) Specimen Type Sample Site pH (7.35-7.45) Bicarbonate Actual (22-26) mmol/L POC Total CO2 mmol/L Base Excess (-2 to +2) mmol/L O2 Saturation (95-99) % O2 % ABG pCO2 (35-45) mmHg ABG pO2 (75-100) mmHG Sage Test Respiration Rate O2 Delivery Device Liter Flow /min Minute Volume Vent Mode Tidal Volume POC PEEP Blood Gas Notified Whom Blood Gas Notified Time Sodium (136-145) mmol/L Potassium (3.5-5.1) mmol/L Chloride (98-107) mmol/L Carbon Dioxide (21.0-32.0) mmol/L Anion Gap (5-15) BUN (7-18) mg/dL Creatinine (0.70-1.30) mg/dL Estim Creat Clear Calc ml/min Est GFR (MDRD) Af Amer (>60) mL/min Est GFR (MDRD) Non-Af (>60) mL/min BUN/Creatinine Ratio (10-20) RATIO Glucose (74-106) mg/dL Hemoglobin A1c (4.2-6.3) % Lactic Acid (0.4-2.0) mmol/L Calcium (8.5-10.1) mg/dL Phosphorus (2.5-4.9) mg/dL Magnesium (1.6-2.6) mg/dL Iron (65-175) ug/dL TIBC (250-450) ug/dL Iron Saturation (15.0-55.0) % Total Bilirubin (0.20-1.00) mg/dL Direct Bilirubin (0.00-0.30) mg/dL AST (15-37) U/L ALT (16-61) U/L Alkaline Phosphatase (45-117) U/L Lactate Dehydrogenase (87-241) U/L Total Creatine Kinase (39-308) U/L Troponin I (<0.045) ng/mL B-Natriuretic Peptide (0-100) pg/mL Total Protein (6.4-8.2) g/dL Albumin (3.2-5.0) g/dL Globulin (2.2-4.2) g/dL Albumin/Globulin Ratio (0.9-2.4) RATIO Triglycerides ( - 199) mg/dL Vitamin B12 1561 H (211-911) pg/mL Folate (3.1-55.4) ng/mL Urine Color (Yellow) Urine Clarity (Clear) Urine pH (5.0 - 8.0) Ur Specific [place] (1.002-1.030) Urine Protein (Negative) mg/dl Urine Glucose (UA) (Normal) mg/dl Urine Ketones (Negative) mg/dl Urine Occult Blood (Negative) /ul Urine Nitrite (Negative) Urine Bilirubin (Negative) mg/dL Urine Urobilinogen (Normal) mg/dl Ur Leukocyte Esterase (Negative) /ul Urine RBC (0-5) /hpf Urine WBC (0-5) /hpf Ur Squamous Epith Cells (0-5) /hpf Urine Bacteria (None Seen) /hpf Urine Mucus (<or=2+) /hpf Vancomycin Trough (5.0-15.0) ug/mL Random Vancomycin (0.0-15.0) ug/mL Heparin-induced Plt Ab (0.000-0.400) OD H. pylori IgG Antibody (0.00-0.79) MRSA (PCR) (Negative) POC Glucose 232 H 271 H (70-110) mg/dL Blood Type Antibody Screen Crossmatch 06/08/18 06/08/18 06/08/18 Range/Units 15:05 15:05 13:07 WBC 14.8 H (4.4-11.0) K/mm3 Corrected WBC (4.4-11.0) K/mm3 RBC 2.76 L (4.6-6.2) M/mm3 Hgb 8.3 L (13.0-16.5) g/dl Hct 25.9 L (40-54) % MCV 93.8 (80-94) fL MCH 30.1 (27.0-32.0) pg MCHC 32.0 (32-36) g/gl RDW 17.0 H (11.6-14.6) % RDW Differential 55.9 H (35.1-43.9) fl Plt Count 23 L* (150-450) K/mm3 MPV TNP (6.2-12.0) fl Immature Gran % (Auto) (0.0-0.9) % Neut % (Auto) (47-70) % Lymph % (Auto) (19-41) % [place] % (Auto) (0-10) % Eos % (Auto) (0-5) % Baso % (Auto) (0-1) % Absolute Neuts (auto) (2.0-7.7) X10^3/uL Absolute Lymphs (auto) (0.83-4.51) X10^3/ul Total Counted Neutrophils % (Manual) (47-70) % Band Neutrophils % (0-5) % Lymphocytes % (Manual) (19-41) % Monocytes % (Manual) (0-10) % Eosinophils % (Manual) (0-5) % Metamyelocytes % (0-1) % Myelocytes % (0-0) Promyelocytes % (0-0) Blast Cells % (0-0) % Nucleated RBC % 32.1 H (0-5) % Nucleated RBCs/100 WBC (0-5) % Differential Comment Diff Path Review Reviewed Platelet Estimate (ADEQ) Immature Plt Fraction (1.0-7.9) % Plt Morphology Comment RBC Morphology Polychromasia Hypochromasia Anisocytosis Microcytosis Spherocytes Ovalocytes Schistocytes Retic Count (0.5-1.5) % Absolute Retic 4.77 (0-5) 10^3/uL Immature Retic Fraction (3.00-15.90) % Retic Hgb Equivalent (30-35) pg Haptoglobin (34-200) mg/dL PT (11.7-14.9) SECONDS INR APTT (24.1-36.2) Seconds Fibrinogen (203-444) mg/dl D-Dimer Quant (PE/DVT) Specimen Type Sample Site pH (7.35-7.45) Bicarbonate Actual (22-26) mmol/L POC Total CO2 mmol/L Base Excess (-2 to +2) mmol/L O2 Saturation (95-99) % O2 % ABG pCO2 (35-45) mmHg ABG pO2 (75-100) mmHG Sage Test Respiration Rate O2 Delivery Device Liter Flow /min Minute Volume Vent Mode Tidal Volume POC PEEP Blood Gas Notified Whom Blood Gas Notified Time Sodium (136-145) mmol/L Potassium (3.5-5.1) mmol/L Chloride (98-107) mmol/L Carbon Dioxide (21.0-32.0) mmol/L Anion Gap (5-15) BUN (7-18) mg/dL Creatinine (0.70-1.30) mg/dL Estim Creat Clear Calc ml/min Est GFR (MDRD) Af Amer (>60) mL/min Est GFR (MDRD) Non-Af (>60) mL/min BUN/Creatinine Ratio (10-20) RATIO Glucose (74-106) mg/dL Hemoglobin A1c (4.2-6.3) % Lactic Acid (0.4-2.0) mmol/L Calcium (8.5-10.1) mg/dL Phosphorus (2.5-4.9) mg/dL Magnesium (1.6-2.6) mg/dL Iron (65-175) ug/dL TIBC (250-450) ug/dL Iron Saturation (15.0-55.0) % Total Bilirubin (0.20-1.00) mg/dL Direct Bilirubin (0.00-0.30) mg/dL AST (15-37) U/L ALT (16-61) U/L Alkaline Phosphatase (45-117) U/L Lactate Dehydrogenase (87-241) U/L Total Creatine Kinase (39-308) U/L Troponin I (<0.045) ng/mL B-Natriuretic Peptide (0-100) pg/mL Total Protein (6.4-8.2) g/dL Albumin (3.2-5.0) g/dL Globulin (2.2-4.2) g/dL Albumin/Globulin Ratio (0.9-2.4) RATIO Triglycerides ( - 199) mg/dL Vitamin B12 (211-911) pg/mL Folate (3.1-55.4) ng/mL Urine Color (Yellow) Urine Clarity (Clear) Urine pH (5.0 - 8.0) Ur Specific [place] (1.002-1.030) Urine Protein (Negative) mg/dl Urine Glucose (UA) (Normal) mg/dl Urine Ketones (Negative) mg/dl Urine Occult Blood (Negative) /ul Urine Nitrite (Negative) Urine Bilirubin (Negative) mg/dL Urine Urobilinogen (Normal) mg/dl Ur Leukocyte Esterase (Negative) /ul Urine RBC (0-5) /hpf Urine WBC (0-5) /hpf Ur Squamous Epith Cells (0-5) /hpf Urine Bacteria (None Seen) /hpf Urine Mucus (<or=2+) /hpf Vancomycin Trough (5.0-15.0) ug/mL Random Vancomycin 20.9 H (0.0-15.0) ug/mL Heparin-induced Plt Ab (0.000-0.400) OD H. pylori IgG Antibody (0.00-0.79) MRSA (PCR) (Negative) POC Glucose 270 H (70-110) mg/dL Blood Type Antibody Screen Crossmatch 06/08/18 06/08/18 06/08/18 Range/Units 05:15 04:45 04:45 WBC (4.4-11.0) K/mm3 Corrected WBC (4.4-11.0) K/mm3 RBC (4.6-6.2) M/mm3 Hgb (13.0-16.5) g/dl Hct (40-54) % MCV (80-94) fL MCH (27.0-32.0) pg MCHC (32-36) g/gl RDW (11.6-14.6) % RDW Differential (35.1-43.9) fl Plt Count (150-450) K/mm3 MPV (6.2-12.0) fl Immature Gran % (Auto) (0.0-0.9) % Neut % (Auto) (47-70) % Lymph % (Auto) (19-41) % [place] % (Auto) (0-10) % Eos % (Auto) (0-5) % Baso % (Auto) (0-1) % Absolute Neuts (auto) (2.0-7.7) X10^3/uL Absolute Lymphs (auto) (0.83-4.51) X10^3/ul Total Counted Neutrophils % (Manual) (47-70) % Band Neutrophils % (0-5) % Lymphocytes % (Manual) (19-41) % Monocytes % (Manual) (0-10) % Eosinophils % (Manual) (0-5) % Metamyelocytes % (0-1) % Myelocytes % (0-0) Promyelocytes % (0-0) Blast Cells % (0-0) % Nucleated RBC % (0-5) % Nucleated RBCs/100 WBC (0-5) % Differential Comment Diff Path Review Platelet Estimate (ADEQ) Immature Plt Fraction 14.7 H (1.0-7.9) % Plt Morphology Comment RBC Morphology Polychromasia Hypochromasia Anisocytosis Microcytosis Spherocytes Ovalocytes Schistocytes Retic Count 4.74 H (0.5-1.5) % Absolute Retic (0-5) 10^3/uL Immature Retic Fraction 41.50 H (3.00-15.90) % Retic Hgb Equivalent 34.6 (30-35) pg Haptoglobin (34-200) mg/dL PT (11.7-14.9) SECONDS INR APTT (24.1-36.2) Seconds Fibrinogen (203-444) mg/dl D-Dimer Quant (PE/DVT) Specimen Type Sample Site pH (7.35-7.45) Bicarbonate Actual (22-26) mmol/L POC Total CO2 mmol/L Base Excess (-2 to +2) mmol/L O2 Saturation (95-99) % O2 % ABG pCO2 (35-45) mmHg ABG pO2 (75-100) mmHG Sage Test Respiration Rate O2 Delivery Device Liter Flow /min Minute Volume Vent Mode Tidal Volume POC PEEP Blood Gas Notified Whom Blood Gas Notified Time Sodium (136-145) mmol/L Potassium (3.5-5.1) mmol/L Chloride (98-107) mmol/L Carbon Dioxide (21.0-32.0) mmol/L Anion Gap (5-15) BUN (7-18) mg/dL Creatinine (0.70-1.30) mg/dL Estim Creat Clear Calc ml/min Est GFR (MDRD) Af Amer (>60) mL/min Est GFR (MDRD) Non-Af (>60) mL/min BUN/Creatinine Ratio (10-20) RATIO Glucose (74-106) mg/dL Hemoglobin A1c (4.2-6.3) % Lactic Acid (0.4-2.0) mmol/L Calcium (8.5-10.1) mg/dL Phosphorus (2.5-4.9) mg/dL Magnesium (1.6-2.6) mg/dL Iron 90 (65-175) ug/dL TIBC 207 L (250-450) ug/dL Iron Saturation 43.5 (15.0-55.0) % Total Bilirubin (0.20-1.00) mg/dL Direct Bilirubin (0.00-0.30) mg/dL AST (15-37) U/L ALT (16-61) U/L Alkaline Phosphatase (45-117) U/L Lactate Dehydrogenase 1072 H (87-241) U/L Total Creatine Kinase (39-308) U/L Troponin I (<0.045) ng/mL B-Natriuretic Peptide (0-100) pg/mL Total Protein (6.4-8.2) g/dL Albumin (3.2-5.0) g/dL Globulin (2.2-4.2) g/dL Albumin/Globulin Ratio (0.9-2.4) RATIO Triglycerides ( - 199) mg/dL Vitamin B12 (211-911) pg/mL Folate 27.10 (3.1-55.4) ng/mL Urine Color (Yellow) Urine Clarity (Clear) Urine pH (5.0 - 8.0) Ur Specific [place] (1.002-1.030) Urine Protein (Negative) mg/dl Urine Glucose (UA) (Normal) mg/dl Urine Ketones (Negative) mg/dl Urine Occult Blood (Negative) /ul Urine Nitrite (Negative) Urine Bilirubin (Negative) mg/dL Urine Urobilinogen (Normal) mg/dl Ur Leukocyte Esterase (Negative) /ul Urine RBC (0-5) /hpf Urine WBC (0-5) /hpf Ur Squamous Epith Cells (0-5) /hpf Urine Bacteria (None Seen) /hpf Urine Mucus (<or=2+) /hpf Vancomycin Trough (5.0-15.0) ug/mL Random Vancomycin (0.0-15.0) ug/mL Heparin-induced Plt Ab (0.000-0.400) OD H. pylori IgG Antibody (0.00-0.79) MRSA (PCR) (Negative) POC Glucose 216 H (70-110) mg/dL Blood Type Antibody Screen Crossmatch 06/08/18 06/08/18 06/08/18 Range/Units 04:45 04:45 04:45 WBC 15.5 H (4.4-11.0) K/mm3 Corrected WBC (4.4-11.0) K/mm3 RBC 2.83 L (4.6-6.2) M/mm3 Hgb 8.4 L (13.0-16.5) g/dl Hct 26.6 L (40-54) % MCV 94.0 (80-94) fL MCH 29.7 (27.0-32.0) pg MCHC 31.6 L (32-36) g/gl RDW 16.7 H (11.6-14.6) % RDW Differential 54.9 H (35.1-43.9) fl Plt Count 28 L* (150-450) K/mm3 MPV 10.8 (6.2-12.0) fl Immature Gran % (Auto) (0.0-0.9) % Neut % (Auto) Not Reportable (47-70) % Lymph % (Auto) (19-41) % [place] % (Auto) (0-10) % Eos % (Auto) (0-5) % Baso % (Auto) (0-1) % Absolute Neuts (auto) 13.6 H (2.0-7.7) X10^3/uL Absolute Lymphs (auto) 1.25 (0.83-4.51) X10^3/ul Total Counted 100 Neutrophils % (Manual) 82 H (47-70) % Band Neutrophils % 6 H (0-5) % Lymphocytes % (Manual) 8 L (19-41) % Monocytes % (Manual) 1 (0-10) % Eosinophils % (Manual) (0-5) % Metamyelocytes % 3 H (0-1) % Myelocytes % (0-0) Promyelocytes % (0-0) Blast Cells % (0-0) % Nucleated RBC % 28.9 H (0-5) % Nucleated RBCs/100 WBC (0-5) % Differential Comment Diff Path Review Reviewed Platelet Estimate MKD DEC (ADEQ) Immature Plt Fraction (1.0-7.9) % Plt Morphology Comment LARGE RBC Morphology Polychromasia 1+ Hypochromasia 1+ Anisocytosis 1+ Microcytosis 1+ Spherocytes Ovalocytes Schistocytes Retic Count (0.5-1.5) % Absolute Retic 4.47 (0-5) 10^3/uL Immature Retic Fraction (3.00-15.90) % Retic Hgb Equivalent (30-35) pg Haptoglobin (34-200) mg/dL PT 19.5 H (11.7-14.9) SECONDS INR 1.7 APTT 32.6 (24.1-36.2) Seconds Fibrinogen (203-444) mg/dl D-Dimer Quant (PE/DVT) Specimen Type Sample Site pH (7.35-7.45) Bicarbonate Actual (22-26) mmol/L POC Total CO2 mmol/L Base Excess (-2 to +2) mmol/L O2 Saturation (95-99) % O2 % ABG pCO2 (35-45) mmHg ABG pO2 (75-100) mmHG Sage Test Respiration Rate O2 Delivery Device Liter Flow /min Minute Volume Vent Mode Tidal Volume POC PEEP Blood Gas Notified Whom Blood Gas Notified Time Sodium 155 H (136-145) mmol/L Potassium 3.3 L (3.5-5.1) mmol/L Chloride 125 H (98-107) mmol/L Carbon Dioxide 18.0 L (21.0-32.0) mmol/L Anion Gap 12 (5-15) BUN 101 H* (7-18) mg/dL Creatinine 2.15 H (0.70-1.30) mg/dL Estim Creat Clear Calc 25.55 ml/min Est GFR (MDRD) Af Amer 38 L (>60) mL/min Est GFR (MDRD) Non-Af 32 L (>60) mL/min BUN/Creatinine Ratio 47.0 H (10-20) RATIO Glucose 232 H (74-106) mg/dL Hemoglobin A1c (4.2-6.3) % Lactic Acid (0.4-2.0) mmol/L Calcium 8.5 (8.5-10.1) mg/dL Phosphorus (2.5-4.9) mg/dL Magnesium (1.6-2.6) mg/dL Iron (65-175) ug/dL TIBC (250-450) ug/dL Iron Saturation (15.0-55.0) % Total Bilirubin (0.20-1.00) mg/dL Direct Bilirubin (0.00-0.30) mg/dL AST (15-37) U/L ALT (16-61) U/L Alkaline Phosphatase (45-117) U/L Lactate Dehydrogenase (87-241) U/L Total Creatine Kinase (39-308) U/L Troponin I (<0.045) ng/mL B-Natriuretic Peptide (0-100) pg/mL Total Protein (6.4-8.2) g/dL Albumin (3.2-5.0) g/dL Globulin (2.2-4.2) g/dL Albumin/Globulin Ratio (0.9-2.4) RATIO Triglycerides ( - 199) mg/dL Vitamin B12 (211-911) pg/mL Folate (3.1-55.4) ng/mL Urine Color (Yellow) Urine Clarity (Clear) Urine pH (5.0 - 8.0) Ur Specific [place] (1.002-1.030) Urine Protein (Negative) mg/dl Urine Glucose (UA) (Normal) mg/dl Urine Ketones (Negative) mg/dl Urine Occult Blood (Negative) /ul Urine Nitrite (Negative) Urine Bilirubin (Negative) mg/dL Urine Urobilinogen (Normal) mg/dl Ur Leukocyte Esterase (Negative) /ul Urine RBC (0-5) /hpf Urine WBC (0-5) /hpf Ur Squamous Epith Cells (0-5) /hpf Urine Bacteria (None Seen) /hpf Urine Mucus (<or=2+) /hpf Vancomycin Trough (5.0-15.0) ug/mL Random Vancomycin (0.0-15.0) ug/mL Heparin-induced Plt Ab (0.000-0.400) OD H. pylori IgG Antibody (0.00-0.79) MRSA (PCR) (Negative) POC Glucose (70-110) mg/dL Blood Type Antibody Screen Crossmatch 06/08/18 06/07/18 06/07/18 Range/Units 03:00 23:54 16:40 WBC (4.4-11.0) K/mm3 Corrected WBC (4.4-11.0) K/mm3 RBC (4.6-6.2) M/mm3 Hgb (13.0-16.5) g/dl Hct (40-54) % MCV (80-94) fL MCH (27.0-32.0) pg MCHC (32-36) g/gl RDW (11.6-14.6) % RDW Differential (35.1-43.9) fl Plt Count (150-450) K/mm3 MPV (6.2-12.0) fl Immature Gran % (Auto) (0.0-0.9) % Neut % (Auto) (47-70) % Lymph % (Auto) (19-41) % [place] % (Auto) (0-10) % Eos % (Auto) (0-5) % Baso % (Auto) (0-1) % Absolute Neuts (auto) (2.0-7.7) X10^3/uL Absolute Lymphs (auto) (0.83-4.51) X10^3/ul Total Counted Neutrophils % (Manual) (47-70) % Band Neutrophils % (0-5) % Lymphocytes % (Manual) (19-41) % Monocytes % (Manual) (0-10) % Eosinophils % (Manual) (0-5) % Metamyelocytes % (0-1) % Myelocytes % (0-0) Promyelocytes % (0-0) Blast Cells % (0-0) % Nucleated RBC % (0-5) % Nucleated RBCs/100 WBC (0-5) % Differential Comment Diff Path Review Platelet Estimate (ADEQ) Immature Plt Fraction (1.0-7.9) % Plt Morphology Comment RBC Morphology Polychromasia Hypochromasia Anisocytosis Microcytosis Spherocytes Ovalocytes Schistocytes Retic Count (0.5-1.5) % Absolute Retic (0-5) 10^3/uL Immature Retic Fraction (3.00-15.90) % Retic Hgb Equivalent (30-35) pg Haptoglobin (34-200) mg/dL PT (11.7-14.9) SECONDS INR APTT (24.1-36.2) Seconds Fibrinogen (203-444) mg/dl D-Dimer Quant (PE/DVT) Specimen Type Sample Site pH (7.35-7.45) Bicarbonate Actual (22-26) mmol/L POC Total CO2 mmol/L Base Excess (-2 to +2) mmol/L O2 Saturation (95-99) % O2 % ABG pCO2 (35-45) mmHg ABG pO2 (75-100) mmHG Sage Test Respiration Rate O2 Delivery Device Liter Flow /min Minute Volume Vent Mode Tidal Volume POC PEEP Blood Gas Notified Whom Blood Gas Notified Time Sodium (136-145) mmol/L Potassium (3.5-5.1) mmol/L Chloride (98-107) mmol/L Carbon Dioxide (21.0-32.0) mmol/L Anion Gap (5-15) BUN (7-18) mg/dL Creatinine (0.70-1.30) mg/dL Estim Creat Clear Calc ml/min Est GFR (MDRD) Af Amer (>60) mL/min Est GFR (MDRD) Non-Af (>60) mL/min BUN/Creatinine Ratio (10-20) RATIO Glucose (74-106) mg/dL Hemoglobin A1c (4.2-6.3) % Lactic Acid (0.4-2.0) mmol/L Calcium (8.5-10.1) mg/dL Phosphorus (2.5-4.9) mg/dL Magnesium (1.6-2.6) mg/dL Iron (65-175) ug/dL TIBC (250-450) ug/dL Iron Saturation (15.0-55.0) % Total Bilirubin (0.20-1.00) mg/dL Direct Bilirubin (0.00-0.30) mg/dL AST (15-37) U/L ALT (16-61) U/L Alkaline Phosphatase (45-117) U/L Lactate Dehydrogenase (87-241) U/L Total Creatine Kinase (39-308) U/L Troponin I (<0.045) ng/mL B-Natriuretic Peptide (0-100) pg/mL Total Protein (6.4-8.2) g/dL Albumin (3.2-5.0) g/dL Globulin (2.2-4.2) g/dL Albumin/Globulin Ratio (0.9-2.4) RATIO Triglycerides ( - 199) mg/dL Vitamin B12 (211-911) pg/mL Folate (3.1-55.4) ng/mL Urine Color (Yellow) Urine Clarity (Clear) Urine pH (5.0 - 8.0) Ur Specific [place] (1.002-1.030) Urine Protein (Negative) mg/dl Urine Glucose (UA) (Normal) mg/dl Urine Ketones (Negative) mg/dl Urine Occult Blood (Negative) /ul Urine Nitrite (Negative) Urine Bilirubin (Negative) mg/dL Urine Urobilinogen (Normal) mg/dl Ur Leukocyte Esterase (Negative) /ul Urine RBC (0-5) /hpf Urine WBC (0-5) /hpf Ur Squamous Epith Cells (0-5) /hpf Urine Bacteria (None Seen) /hpf Urine Mucus (<or=2+) /hpf Vancomycin Trough 24.2 H (5.0-15.0) ug/mL Random Vancomycin (0.0-15.0) ug/mL Heparin-induced Plt Ab (0.000-0.400) OD H. pylori IgG Antibody (0.00-0.79) MRSA (PCR) (Negative) POC Glucose 195 H 202 H (70-110) mg/dL Blood Type Antibody Screen Crossmatch 06/07/18 06/07/18 06/07/18 Range/Units 14:40 11:12 06:50 WBC 17.9 H (4.4-11.0) K/mm3 Corrected WBC (4.4-11.0) K/mm3 RBC 2.77 L (4.6-6.2) M/mm3 Hgb 8.2 L (13.0-16.5) g/dl Hct 25.7 L (40-54) % MCV 92.8 (80-94) fL MCH 29.6 (27.0-32.0) pg MCHC 31.9 L (32-36) g/gl RDW 16.5 H (11.6-14.6) % RDW Differential 54.3 H (35.1-43.9) fl Plt Count 43 L* (150-450) K/mm3 MPV 10.7 (6.2-12.0) fl Immature Gran % (Auto) (0.0-0.9) % Neut % (Auto) Not Reportable (47-70) % Lymph % (Auto) (19-41) % [place] % (Auto) (0-10) % Eos % (Auto) (0-5) % Baso % (Auto) (0-1) % Absolute Neuts (auto) 13.6 H (2.0-7.7) X10^3/uL Absolute Lymphs (auto) 2.86 (0.83-4.51) X10^3/ul Total Counted 100 Neutrophils % (Manual) 75 H (47-70) % Band Neutrophils % 1 (0-5) % Lymphocytes % (Manual) 16 L (19-41) % Monocytes % (Manual) 4 (0-10) % Eosinophils % (Manual) (0-5) % Metamyelocytes % 1 (0-1) % Myelocytes % 3 H (0-0) Promyelocytes % (0-0) Blast Cells % (0-0) % Nucleated RBC % 23.8 H (0-5) % Nucleated RBCs/100 WBC (0-5) % Differential Comment SCANNED Diff Path Review Reviewed Platelet Estimate MKD DEC (ADEQ) Immature Plt Fraction (1.0-7.9) % Plt Morphology Comment RBC Morphology Polychromasia 2+ Hypochromasia 2+ Anisocytosis 1+ Microcytosis RARE Spherocytes Ovalocytes RARE Schistocytes 1+ Retic Count (0.5-1.5) % Absolute Retic 4.28 (0-5) 10^3/uL Immature Retic Fraction (3.00-15.90) % Retic Hgb Equivalent (30-35) pg Haptoglobin (34-200) mg/dL PT 19.6 H (11.7-14.9) SECONDS INR 1.7 APTT 30.8 (24.1-36.2) Seconds Fibrinogen 156 L (203-444) mg/dl D-Dimer Quant (PE/DVT) > 20.00 H* Specimen Type Sample Site pH (7.35-7.45) Bicarbonate Actual (22-26) mmol/L POC Total CO2 mmol/L Base Excess (-2 to +2) mmol/L O2 Saturation (95-99) % O2 % ABG pCO2 (35-45) mmHg ABG pO2 (75-100) mmHG Sage Test Respiration Rate O2 Delivery Device Liter Flow /min Minute Volume Vent Mode Tidal Volume POC PEEP Blood Gas Notified Whom Blood Gas Notified Time Sodium (136-145) mmol/L Potassium (3.5-5.1) mmol/L Chloride (98-107) mmol/L Carbon Dioxide (21.0-32.0) mmol/L Anion Gap (5-15) BUN (7-18) mg/dL Creatinine (0.70-1.30) mg/dL Estim Creat Clear Calc ml/min Est GFR (MDRD) Af Amer (>60) mL/min Est GFR (MDRD) Non-Af (>60) mL/min BUN/Creatinine Ratio (10-20) RATIO Glucose (74-106) mg/dL Hemoglobin A1c (4.2-6.3) % Lactic Acid (0.4-2.0) mmol/L Calcium (8.5-10.1) mg/dL Phosphorus (2.5-4.9) mg/dL Magnesium (1.6-2.6) mg/dL Iron (65-175) ug/dL TIBC (250-450) ug/dL Iron Saturation (15.0-55.0) % Total Bilirubin (0.20-1.00) mg/dL Direct Bilirubin (0.00-0.30) mg/dL AST (15-37) U/L ALT (16-61) U/L Alkaline Phosphatase (45-117) U/L Lactate Dehydrogenase (87-241) U/L Total Creatine Kinase (39-308) U/L Troponin I (<0.045) ng/mL B-Natriuretic Peptide (0-100) pg/mL Total Protein (6.4-8.2) g/dL Albumin (3.2-5.0) g/dL Globulin (2.2-4.2) g/dL Albumin/Globulin Ratio (0.9-2.4) RATIO Triglycerides ( - 199) mg/dL Vitamin B12 (211-911) pg/mL Folate (3.1-55.4) ng/mL Urine Color (Yellow) Urine Clarity (Clear) Urine pH (5.0 - 8.0) Ur Specific [place] (1.002-1.030) Urine Protein (Negative) mg/dl Urine Glucose (UA) (Normal) mg/dl Urine Ketones (Negative) mg/dl Urine Occult Blood (Negative) /ul Urine Nitrite (Negative) Urine Bilirubin (Negative) mg/dL Urine Urobilinogen (Normal) mg/dl Ur Leukocyte Esterase (Negative) /ul Urine RBC (0-5) /hpf Urine WBC (0-5) /hpf Ur Squamous Epith Cells (0-5) /hpf Urine Bacteria (None Seen) /hpf Urine Mucus (<or=2+) /hpf Vancomycin Trough (5.0-15.0) ug/mL Random Vancomycin (0.0-15.0) ug/mL Heparin-induced Plt Ab (0.000-0.400) OD H. pylori IgG Antibody (0.00-0.79) MRSA (PCR) (Negative) POC Glucose 219 H (70-110) mg/dL Blood Type Antibody Screen Crossmatch 06/07/18 06/07/18 06/07/18 Range/Units 06:50 05:42 03:50 WBC (4.4-11.0) K/mm3 Corrected WBC (4.4-11.0) K/mm3 RBC (4.6-6.2) M/mm3 Hgb (13.0-16.5) g/dl Hct (40-54) % MCV (80-94) fL MCH (27.0-32.0) pg MCHC (32-36) g/gl RDW (11.6-14.6) % RDW Differential (35.1-43.9) fl Plt Count (150-450) K/mm3 MPV (6.2-12.0) fl Immature Gran % (Auto) (0.0-0.9) % Neut % (Auto) (47-70) % Lymph % (Auto) (19-41) % [place] % (Auto) (0-10) % Eos % (Auto) (0-5) % Baso % (Auto) (0-1) % Absolute Neuts (auto) (2.0-7.7) X10^3/uL Absolute Lymphs (auto) (0.83-4.51) X10^3/ul Total Counted Neutrophils % (Manual) (47-70) % Band Neutrophils % (0-5) % Lymphocytes % (Manual) (19-41) % Monocytes % (Manual) (0-10) % Eosinophils % (Manual) (0-5) % Metamyelocytes % (0-1) % Myelocytes % (0-0) Promyelocytes % (0-0) Blast Cells % (0-0) % Nucleated RBC % (0-5) % Nucleated RBCs/100 WBC (0-5) % Differential Comment Diff Path Review Platelet Estimate (ADEQ) Immature Plt Fraction (1.0-7.9) % Plt Morphology Comment RBC Morphology Polychromasia Hypochromasia Anisocytosis Microcytosis Spherocytes Ovalocytes Schistocytes Retic Count (0.5-1.5) % Absolute Retic (0-5) 10^3/uL Immature Retic Fraction (3.00-15.90) % Retic Hgb Equivalent (30-35) pg Haptoglobin (34-200) mg/dL PT (11.7-14.9) SECONDS INR APTT (24.1-36.2) Seconds Fibrinogen (203-444) mg/dl D-Dimer Quant (PE/DVT) Specimen Type Sample Site pH (7.35-7.45) Bicarbonate Actual (22-26) mmol/L POC Total CO2 mmol/L Base Excess (-2 to +2) mmol/L O2 Saturation (95-99) % O2 % ABG pCO2 (35-45) mmHg ABG pO2 (75-100) mmHG Sage Test Respiration Rate O2 Delivery Device Liter Flow /min Minute Volume Vent Mode Tidal Volume POC PEEP Blood Gas Notified Whom Blood Gas Notified Time Sodium 152 H (136-145) mmol/L Potassium 3.4 L (3.5-5.1) mmol/L Chloride 120 H (98-107) mmol/L Carbon Dioxide 18.0 L (21.0-32.0) mmol/L Anion Gap 14 (5-15) BUN 107 H* (7-18) mg/dL Creatinine 2.21 H (0.70-1.30) mg/dL Estim Creat Clear Calc 24.86 ml/min Est GFR (MDRD) Af Amer 37 L (>60) mL/min Est GFR (MDRD) Non-Af 31 L (>60) mL/min BUN/Creatinine Ratio 48.4 H (10-20) RATIO Glucose 200 H (74-106) mg/dL Hemoglobin A1c (4.2-6.3) % Lactic Acid (0.4-2.0) mmol/L Calcium 8.0 L (8.5-10.1) mg/dL Phosphorus (2.5-4.9) mg/dL Magnesium (1.6-2.6) mg/dL Iron (65-175) ug/dL TIBC (250-450) ug/dL Iron Saturation (15.0-55.0) % Total Bilirubin (0.20-1.00) mg/dL Direct Bilirubin (0.00-0.30) mg/dL AST (15-37) U/L ALT (16-61) U/L Alkaline Phosphatase (45-117) U/L Lactate Dehydrogenase (87-241) U/L Total Creatine Kinase (39-308) U/L Troponin I (<0.045) ng/mL B-Natriuretic Peptide (0-100) pg/mL Total Protein (6.4-8.2) g/dL Albumin (3.2-5.0) g/dL Globulin (2.2-4.2) g/dL Albumin/Globulin Ratio (0.9-2.4) RATIO Triglycerides ( - 199) mg/dL Vitamin B12 (211-911) pg/mL Folate (3.1-55.4) ng/mL Urine Color (Yellow) Urine Clarity (Clear) Urine pH (5.0 - 8.0) Ur Specific [place] (1.002-1.030) Urine Protein (Negative) mg/dl Urine Glucose (UA) (Normal) mg/dl Urine Ketones (Negative) mg/dl Urine Occult Blood (Negative) /ul Urine Nitrite (Negative) Urine Bilirubin (Negative) mg/dL Urine Urobilinogen (Normal) mg/dl Ur Leukocyte Esterase (Negative) /ul Urine RBC (0-5) /hpf Urine WBC (0-5) /hpf Ur Squamous Epith Cells (0-5) /hpf Urine Bacteria (None Seen) /hpf Urine Mucus (<or=2+) /hpf Vancomycin Trough (5.0-15.0) ug/mL Random Vancomycin (0.0-15.0) ug/mL Heparin-induced Plt Ab 0.138 (0.000-0.400) OD H. pylori IgG Antibody (0.00-0.79) MRSA (PCR) (Negative) POC Glucose 202 H (70-110) mg/dL Blood Type Antibody Screen Crossmatch 06/07/18 06/07/18 06/06/18 Range/Units 03:50 00:11 17:04 WBC 16.5 H (4.4-11.0) K/mm3 Corrected WBC (4.4-11.0) K/mm3 RBC 2.90 L (4.6-6.2) M/mm3 Hgb 8.7 L (13.0-16.5) g/dl Hct 26.9 L (40-54) % MCV 92.8 (80-94) fL MCH 30.0 (27.0-32.0) pg MCHC 32.3 (32-36) g/gl RDW 16.4 H (11.6-14.6) % RDW Differential 54.5 H (35.1-43.9) fl Plt Count 23 L* (150-450) K/mm3 MPV TNP (6.2-12.0) fl Immature Gran % (Auto) (0.0-0.9) % Neut % (Auto) Not Reportable (47-70) % Lymph % (Auto) (19-41) % [place] % (Auto) (0-10) % Eos % (Auto) (0-5) % Baso % (Auto) (0-1) % Absolute Neuts (auto) 13.6 H (2.0-7.7) X10^3/uL Absolute Lymphs (auto) 2.48 (0.83-4.51) X10^3/ul Total Counted 100 Neutrophils % (Manual) 78 H (47-70) % Band Neutrophils % 4 (0-5) % Lymphocytes % (Manual) 15 L (19-41) % Monocytes % (Manual) 2 (0-10) % Eosinophils % (Manual) (0-5) % Metamyelocytes % 1 (0-1) % Myelocytes % (0-0) Promyelocytes % (0-0) Blast Cells % (0-0) % Nucleated RBC % 19.8 H (0-5) % Nucleated RBCs/100 WBC (0-5) % Differential Comment Diff Path Review Reviewed Platelet Estimate (ADEQ) Immature Plt Fraction (1.0-7.9) % Plt Morphology Comment RBC Morphology Polychromasia Hypochromasia Anisocytosis 1+ Microcytosis Spherocytes Ovalocytes RARE Schistocytes 1+ Retic Count (0.5-1.5) % Absolute Retic 3.27 (0-5) 10^3/uL Immature Retic Fraction (3.00-15.90) % Retic Hgb Equivalent (30-35) pg Haptoglobin (34-200) mg/dL PT (11.7-14.9) SECONDS INR APTT (24.1-36.2) Seconds Fibrinogen (203-444) mg/dl D-Dimer Quant (PE/DVT) Specimen Type Sample Site pH (7.35-7.45) Bicarbonate Actual (22-26) mmol/L POC Total CO2 mmol/L Base Excess (-2 to +2) mmol/L O2 Saturation (95-99) % O2 % ABG pCO2 (35-45) mmHg ABG pO2 (75-100) mmHG Sage Test Respiration Rate O2 Delivery Device Liter Flow /min Minute Volume Vent Mode Tidal Volume POC PEEP Blood Gas Notified Whom Blood Gas Notified Time Sodium (136-145) mmol/L Potassium (3.5-5.1) mmol/L Chloride (98-107) mmol/L Carbon Dioxide (21.0-32.0) mmol/L Anion Gap (5-15) BUN (7-18) mg/dL Creatinine (0.70-1.30) mg/dL Estim Creat Clear Calc ml/min Est GFR (MDRD) Af Amer (>60) mL/min Est GFR (MDRD) Non-Af (>60) mL/min BUN/Creatinine Ratio (10-20) RATIO Glucose (74-106) mg/dL Hemoglobin A1c (4.2-6.3) % Lactic Acid (0.4-2.0) mmol/L Calcium (8.5-10.1) mg/dL Phosphorus (2.5-4.9) mg/dL Magnesium (1.6-2.6) mg/dL Iron (65-175) ug/dL TIBC (250-450) ug/dL Iron Saturation (15.0-55.0) % Total Bilirubin (0.20-1.00) mg/dL Direct Bilirubin (0.00-0.30) mg/dL AST (15-37) U/L ALT (16-61) U/L Alkaline Phosphatase (45-117) U/L Lactate Dehydrogenase (87-241) U/L Total Creatine Kinase (39-308) U/L Troponin I (<0.045) ng/mL B-Natriuretic Peptide (0-100) pg/mL Total Protein (6.4-8.2) g/dL Albumin (3.2-5.0) g/dL Globulin (2.2-4.2) g/dL Albumin/Globulin Ratio (0.9-2.4) RATIO Triglycerides ( - 199) mg/dL Vitamin B12 (211-911) pg/mL Folate (3.1-55.4) ng/mL Urine Color (Yellow) Urine Clarity (Clear) Urine pH (5.0 - 8.0) Ur Specific [place] (1.002-1.030) Urine Protein (Negative) mg/dl Urine Glucose (UA) (Normal) mg/dl Urine Ketones (Negative) mg/dl Urine Occult Blood (Negative) /ul Urine Nitrite (Negative) Urine Bilirubin (Negative) mg/dL Urine Urobilinogen (Normal) mg/dl Ur Leukocyte Esterase (Negative) /ul Urine RBC (0-5) /hpf Urine WBC (0-5) /hpf Ur Squamous Epith Cells (0-5) /hpf Urine Bacteria (None Seen) /hpf Urine Mucus (<or=2+) /hpf Vancomycin Trough (5.0-15.0) ug/mL Random Vancomycin (0.0-15.0) ug/mL Heparin-induced Plt Ab (0.000-0.400) OD H. pylori IgG Antibody (0.00-0.79) MRSA (PCR) (Negative) POC Glucose 167 H 216 H (70-110) mg/dL Blood Type Antibody Screen Crossmatch 06/06/18 06/06/18 06/06/18 Range/Units 14:00 11:19 07:15 WBC 20.0 H (4.4-11.0) K/mm3 Corrected WBC (4.4-11.0) K/mm3 RBC 2.98 L (4.6-6.2) M/mm3 Hgb 9.0 L (13.0-16.5) g/dl Hct 27.4 L (40-54) % MCV 91.9 (80-94) fL MCH 30.2 (27.0-32.0) pg MCHC 32.8 (32-36) g/gl RDW 16.2 H (11.6-14.6) % RDW Differential 53.3 H (35.1-43.9) fl Plt Count 35 L* (150-450) K/mm3 MPV 11.7 (6.2-12.0) fl Immature Gran % (Auto) (0.0-0.9) % Neut % (Auto) (47-70) % Lymph % (Auto) (19-41) % [place] % (Auto) (0-10) % Eos % (Auto) (0-5) % Baso % (Auto) (0-1) % Absolute Neuts (auto) (2.0-7.7) X10^3/uL Absolute Lymphs (auto) (0.83-4.51) X10^3/ul Total Counted Neutrophils % (Manual) (47-70) % Band Neutrophils % (0-5) % Lymphocytes % (Manual) (19-41) % Monocytes % (Manual) (0-10) % Eosinophils % (Manual) (0-5) % Metamyelocytes % (0-1) % Myelocytes % (0-0) Promyelocytes % (0-0) Blast Cells % (0-0) % Nucleated RBC % (0-5) % Nucleated RBCs/100 WBC (0-5) % Differential Comment COMMENT Diff Path Review Reviewed Platelet Estimate (ADEQ) Immature Plt Fraction (1.0-7.9) % Plt Morphology Comment RBC Morphology Polychromasia Hypochromasia Anisocytosis Microcytosis Spherocytes Ovalocytes Schistocytes Retic Count (0.5-1.5) % Absolute Retic (0-5) 10^3/uL Immature Retic Fraction (3.00-15.90) % Retic Hgb Equivalent (30-35) pg Haptoglobin (34-200) mg/dL PT (11.7-14.9) SECONDS INR APTT (24.1-36.2) Seconds Fibrinogen (203-444) mg/dl D-Dimer Quant (PE/DVT) Specimen Type Sample Site pH (7.35-7.45) Bicarbonate Actual (22-26) mmol/L POC Total CO2 mmol/L Base Excess (-2 to +2) mmol/L O2 Saturation (95-99) % O2 % ABG pCO2 (35-45) mmHg ABG pO2 (75-100) mmHG Sage Test Respiration Rate O2 Delivery Device Liter Flow /min Minute Volume Vent Mode Tidal Volume POC PEEP Blood Gas Notified Whom Blood Gas Notified Time Sodium (136-145) mmol/L Potassium (3.5-5.1) mmol/L Chloride (98-107) mmol/L Carbon Dioxide (21.0-32.0) mmol/L Anion Gap (5-15) BUN (7-18) mg/dL Creatinine (0.70-1.30) mg/dL Estim Creat Clear Calc ml/min Est GFR (MDRD) Af Amer (>60) mL/min Est GFR (MDRD) Non-Af (>60) mL/min BUN/Creatinine Ratio (10-20) RATIO Glucose (74-106) mg/dL Hemoglobin A1c (4.2-6.3) % Lactic Acid (0.4-2.0) mmol/L Calcium (8.5-10.1) mg/dL Phosphorus (2.5-4.9) mg/dL Magnesium (1.6-2.6) mg/dL Iron (65-175) ug/dL TIBC (250-450) ug/dL Iron Saturation (15.0-55.0) % Total Bilirubin (0.20-1.00) mg/dL Direct Bilirubin (0.00-0.30) mg/dL AST (15-37) U/L ALT (16-61) U/L Alkaline Phosphatase (45-117) U/L Lactate Dehydrogenase (87-241) U/L Total Creatine Kinase (39-308) U/L Troponin I (<0.045) ng/mL B-Natriuretic Peptide (0-100) pg/mL Total Protein (6.4-8.2) g/dL Albumin (3.2-5.0) g/dL Globulin (2.2-4.2) g/dL Albumin/Globulin Ratio (0.9-2.4) RATIO Triglycerides ( - 199) mg/dL Vitamin B12 (211-911) pg/mL Folate (3.1-55.4) ng/mL Urine Color (Yellow) Urine Clarity (Clear) Urine pH (5.0 - 8.0) Ur Specific [place] (1.002-1.030) Urine Protein (Negative) mg/dl Urine Glucose (UA) (Normal) mg/dl Urine Ketones (Negative) mg/dl Urine Occult Blood (Negative) /ul Urine Nitrite (Negative) Urine Bilirubin (Negative) mg/dL Urine Urobilinogen (Normal) mg/dl Ur Leukocyte Esterase (Negative) /ul Urine RBC (0-5) /hpf Urine WBC (0-5) /hpf Ur Squamous Epith Cells (0-5) /hpf Urine Bacteria (None Seen) /hpf Urine Mucus (<or=2+) /hpf Vancomycin Trough (5.0-15.0) ug/mL Random Vancomycin (0.0-15.0) ug/mL Heparin-induced Plt Ab (0.000-0.400) OD H. pylori IgG Antibody (0.00-0.79) MRSA (PCR) (Negative) POC Glucose 198 H (70-110) mg/dL Blood Type Antibody Screen Crossmatch See Detail 06/06/18 06/06/18 06/06/18 Range/Units 07:15 05:24 04:25 WBC (4.4-11.0) K/mm3 Corrected WBC (4.4-11.0) K/mm3 RBC (4.6-6.2) M/mm3 Hgb (13.0-16.5) g/dl Hct (40-54) % MCV (80-94) fL MCH (27.0-32.0) pg MCHC (32-36) g/gl RDW (11.6-14.6) % RDW Differential (35.1-43.9) fl Plt Count (150-450) K/mm3 MPV (6.2-12.0) fl Immature Gran % (Auto) (0.0-0.9) % Neut % (Auto) (47-70) % Lymph % (Auto) (19-41) % [place] % (Auto) (0-10) % Eos % (Auto) (0-5) % Baso % (Auto) (0-1) % Absolute Neuts (auto) (2.0-7.7) X10^3/uL Absolute Lymphs (auto) (0.83-4.51) X10^3/ul Total Counted Neutrophils % (Manual) (47-70) % Band Neutrophils % (0-5) % Lymphocytes % (Manual) (19-41) % Monocytes % (Manual) (0-10) % Eosinophils % (Manual) (0-5) % Metamyelocytes % (0-1) % Myelocytes % (0-0) Promyelocytes % (0-0) Blast Cells % (0-0) % Nucleated RBC % (0-5) % Nucleated RBCs/100 WBC (0-5) % Differential Comment Diff Path Review Platelet Estimate (ADEQ) Immature Plt Fraction (1.0-7.9) % Plt Morphology Comment RBC Morphology Polychromasia Hypochromasia Anisocytosis Microcytosis Spherocytes Ovalocytes Schistocytes Retic Count (0.5-1.5) % Absolute Retic (0-5) 10^3/uL Immature Retic Fraction (3.00-15.90) % Retic Hgb Equivalent (30-35) pg Haptoglobin (34-200) mg/dL PT (11.7-14.9) SECONDS INR APTT (24.1-36.2) Seconds Fibrinogen (203-444) mg/dl D-Dimer Quant (PE/DVT) Specimen Type Sample Site pH (7.35-7.45) Bicarbonate Actual (22-26) mmol/L POC Total CO2 mmol/L Base Excess (-2 to +2) mmol/L O2 Saturation (95-99) % O2 % ABG pCO2 (35-45) mmHg ABG pO2 (75-100) mmHG Sage Test Respiration Rate O2 Delivery Device Liter Flow /min Minute Volume Vent Mode Tidal Volume POC PEEP Blood Gas Notified Whom Blood Gas Notified Time Sodium 148 H (136-145) mmol/L Potassium 4.1 (3.5-5.1) mmol/L Chloride 117 H (98-107) mmol/L Carbon Dioxide 18.0 L (21.0-32.0) mmol/L Anion Gap 13 (5-15) BUN 115 H* (7-18) mg/dL Creatinine 2.19 H (0.70-1.30) mg/dL Estim Creat Clear Calc 25.09 ml/min Est GFR (MDRD) Af Amer 38 L (>60) mL/min Est GFR (MDRD) Non-Af 31 L (>60) mL/min BUN/Creatinine Ratio 52.5 H (10-20) RATIO Glucose 208 H (74-106) mg/dL Hemoglobin A1c (4.2-6.3) % Lactic Acid (0.4-2.0) mmol/L Calcium 8.2 L (8.5-10.1) mg/dL Phosphorus (2.5-4.9) mg/dL Magnesium (1.6-2.6) mg/dL Iron (65-175) ug/dL TIBC (250-450) ug/dL Iron Saturation (15.0-55.0) % Total Bilirubin (0.20-1.00) mg/dL Direct Bilirubin (0.00-0.30) mg/dL AST (15-37) U/L ALT (16-61) U/L Alkaline Phosphatase (45-117) U/L Lactate Dehydrogenase (87-241) U/L Total Creatine Kinase (39-308) U/L Troponin I (<0.045) ng/mL B-Natriuretic Peptide (0-100) pg/mL Total Protein (6.4-8.2) g/dL Albumin (3.2-5.0) g/dL Globulin (2.2-4.2) g/dL Albumin/Globulin Ratio (0.9-2.4) RATIO Triglycerides ( - 199) mg/dL Vitamin B12 (211-911) pg/mL Folate (3.1-55.4) ng/mL Urine Color (Yellow) Urine Clarity (Clear) Urine pH (5.0 - 8.0) Ur Specific [place] (1.002-1.030) Urine Protein (Negative) mg/dl Urine Glucose (UA) (Normal) mg/dl Urine Ketones (Negative) mg/dl Urine Occult Blood (Negative) /ul Urine Nitrite (Negative) Urine Bilirubin (Negative) mg/dL Urine Urobilinogen (Normal) mg/dl Ur Leukocyte Esterase (Negative) /ul Urine RBC (0-5) /hpf Urine WBC (0-5) /hpf Ur Squamous Epith Cells (0-5) /hpf Urine Bacteria (None Seen) /hpf Urine Mucus (<or=2+) /hpf Vancomycin Trough (5.0-15.0) ug/mL Random Vancomycin (0.0-15.0) ug/mL Heparin-induced Plt Ab (0.000-0.400) OD H. pylori IgG Antibody (0.00-0.79) MRSA (PCR) (Negative) POC Glucose 161 H (70-110) mg/dL Blood Type AB POSITIVE Antibody Screen NEGATIVE Crossmatch See Detail 06/06/18 06/05/18 06/05/18 Range/Units 04:25 23:21 17:06 WBC 13.0 H (4.4-11.0) K/mm3 Corrected WBC (4.4-11.0) K/mm3 RBC 2.43 L (4.6-6.2) M/mm3 Hgb 7.2 L (13.0-16.5) g/dl Hct 22.4 L (40-54) % MCV 92.2 (80-94) fL MCH 29.6 (27.0-32.0) pg MCHC 32.1 (32-36) g/gl RDW 16.9 H (11.6-14.6) % RDW Differential 56.5 H (35.1-43.9) fl Plt Count 28 L* (150-450) K/mm3 MPV 12.1 H (6.2-12.0) fl Immature Gran % (Auto) (0.0-0.9) % Neut % (Auto) Not Reportable (47-70) % Lymph % (Auto) (19-41) % [place] % (Auto) (0-10) % Eos % (Auto) (0-5) % Baso % (Auto) (0-1) % Absolute Neuts (auto) 8.9 H (2.0-7.7) X10^3/uL Absolute Lymphs (auto) 2.85 (0.83-4.51) X10^3/ul Total Counted 100 Neutrophils % (Manual) 66 (47-70) % Band Neutrophils % 3 (0-5) % Lymphocytes % (Manual) 22 (19-41) % Monocytes % (Manual) 5 (0-10) % Eosinophils % (Manual) (0-5) % Metamyelocytes % (0-1) % Myelocytes % 4 H (0-0) Promyelocytes % (0-0) Blast Cells % (0-0) % Nucleated RBC % 14.4 H (0-5) % Nucleated RBCs/100 WBC (0-5) % Differential Comment Diff Path Review Reviewed Platelet Estimate (ADEQ) Immature Plt Fraction (1.0-7.9) % Plt Morphology Comment RBC Morphology Polychromasia Hypochromasia Anisocytosis Microcytosis Spherocytes Ovalocytes Schistocytes Retic Count (0.5-1.5) % Absolute Retic 1.87 (0-5) 10^3/uL Immature Retic Fraction (3.00-15.90) % Retic Hgb Equivalent (30-35) pg Haptoglobin (34-200) mg/dL PT (11.7-14.9) SECONDS INR APTT (24.1-36.2) Seconds Fibrinogen (203-444) mg/dl D-Dimer Quant (PE/DVT) Specimen Type Sample Site pH (7.35-7.45) Bicarbonate Actual (22-26) mmol/L POC Total CO2 mmol/L Base Excess (-2 to +2) mmol/L O2 Saturation (95-99) % O2 % ABG pCO2 (35-45) mmHg ABG pO2 (75-100) mmHG Sage Test Respiration Rate O2 Delivery Device Liter Flow /min Minute Volume Vent Mode Tidal Volume POC PEEP Blood Gas Notified Whom Blood Gas Notified Time Sodium (136-145) mmol/L Potassium (3.5-5.1) mmol/L Chloride (98-107) mmol/L Carbon Dioxide (21.0-32.0) mmol/L Anion Gap (5-15) BUN (7-18) mg/dL Creatinine (0.70-1.30) mg/dL Estim Creat Clear Calc ml/min Est GFR (MDRD) Af Amer (>60) mL/min Est GFR (MDRD) Non-Af (>60) mL/min BUN/Creatinine Ratio (10-20) RATIO Glucose (74-106) mg/dL Hemoglobin A1c (4.2-6.3) % Lactic Acid (0.4-2.0) mmol/L Calcium (8.5-10.1) mg/dL Phosphorus (2.5-4.9) mg/dL Magnesium (1.6-2.6) mg/dL Iron (65-175) ug/dL TIBC (250-450) ug/dL Iron Saturation (15.0-55.0) % Total Bilirubin (0.20-1.00) mg/dL Direct Bilirubin (0.00-0.30) mg/dL AST (15-37) U/L ALT (16-61) U/L Alkaline Phosphatase (45-117) U/L Lactate Dehydrogenase (87-241) U/L Total Creatine Kinase (39-308) U/L Troponin I (<0.045) ng/mL B-Natriuretic Peptide (0-100) pg/mL Total Protein (6.4-8.2) g/dL Albumin (3.2-5.0) g/dL Globulin (2.2-4.2) g/dL Albumin/Globulin Ratio (0.9-2.4) RATIO Triglycerides ( - 199) mg/dL Vitamin B12 (211-911) pg/mL Folate (3.1-55.4) ng/mL Urine Color (Yellow) Urine Clarity (Clear) Urine pH (5.0 - 8.0) Ur Specific [place] (1.002-1.030) Urine Protein (Negative) mg/dl Urine Glucose (UA) (Normal) mg/dl Urine Ketones (Negative) mg/dl Urine Occult Blood (Negative) /ul Urine Nitrite (Negative) Urine Bilirubin (Negative) mg/dL Urine Urobilinogen (Normal) mg/dl Ur Leukocyte Esterase (Negative) /ul Urine RBC (0-5) /hpf Urine WBC (0-5) /hpf Ur Squamous Epith Cells (0-5) /hpf Urine Bacteria (None Seen) /hpf Urine Mucus (<or=2+) /hpf Vancomycin Trough (5.0-15.0) ug/mL Random Vancomycin (0.0-15.0) ug/mL Heparin-induced Plt Ab (0.000-0.400) OD H. pylori IgG Antibody (0.00-0.79) MRSA (PCR) (Negative) POC Glucose 159 H 215 H (70-110) mg/dL Blood Type Antibody Screen Crossmatch 06/05/18 06/05/18 06/05/18 Range/Units 13:55 11:45 11:00 WBC (4.4-11.0) K/mm3 Corrected WBC (4.4-11.0) K/mm3 RBC (4.6-6.2) M/mm3 Hgb 7.6 L (13.0-16.5) g/dl Hct 23.7 L (40-54) % MCV (80-94) fL MCH (27.0-32.0) pg MCHC (32-36) g/gl RDW (11.6-14.6) % RDW Differential (35.1-43.9) fl Plt Count (150-450) K/mm3 MPV (6.2-12.0) fl Immature Gran % (Auto) (0.0-0.9) % Neut % (Auto) (47-70) % Lymph % (Auto) (19-41) % [place] % (Auto) (0-10) % Eos % (Auto) (0-5) % Baso % (Auto) (0-1) % Absolute Neuts (auto) (2.0-7.7) X10^3/uL Absolute Lymphs (auto) (0.83-4.51) X10^3/ul Total Counted Neutrophils % (Manual) (47-70) % Band Neutrophils % (0-5) % Lymphocytes % (Manual) (19-41) % Monocytes % (Manual) (0-10) % Eosinophils % (Manual) (0-5) % Metamyelocytes % (0-1) % Myelocytes % (0-0) Promyelocytes % (0-0) Blast Cells % (0-0) % Nucleated RBC % (0-5) % Nucleated RBCs/100 WBC (0-5) % Differential Comment Diff Path Review Platelet Estimate (ADEQ) Immature Plt Fraction (1.0-7.9) % Plt Morphology Comment RBC Morphology Polychromasia Hypochromasia Anisocytosis Microcytosis Spherocytes Ovalocytes Schistocytes Retic Count (0.5-1.5) % Absolute Retic (0-5) 10^3/uL Immature Retic Fraction (3.00-15.90) % Retic Hgb Equivalent (30-35) pg Haptoglobin (34-200) mg/dL PT (11.7-14.9) SECONDS INR APTT (24.1-36.2) Seconds Fibrinogen (203-444) mg/dl D-Dimer Quant (PE/DVT) Specimen Type Sample Site pH (7.35-7.45) Bicarbonate Actual (22-26) mmol/L POC Total CO2 mmol/L Base Excess (-2 to +2) mmol/L O2 Saturation (95-99) % O2 % ABG pCO2 (35-45) mmHg ABG pO2 (75-100) mmHG Sage Test Respiration Rate O2 Delivery Device Liter Flow /min Minute Volume Vent Mode Tidal Volume POC PEEP Blood Gas Notified Whom Blood Gas Notified Time Sodium (136-145) mmol/L Potassium (3.5-5.1) mmol/L Chloride (98-107) mmol/L Carbon Dioxide (21.0-32.0) mmol/L Anion Gap (5-15) BUN (7-18) mg/dL Creatinine (0.70-1.30) mg/dL Estim Creat Clear Calc ml/min Est GFR (MDRD) Af Amer (>60) mL/min Est GFR (MDRD) Non-Af (>60) mL/min BUN/Creatinine Ratio (10-20) RATIO Glucose (74-106) mg/dL Hemoglobin A1c (4.2-6.3) % Lactic Acid (0.4-2.0) mmol/L Calcium (8.5-10.1) mg/dL Phosphorus (2.5-4.9) mg/dL Magnesium (1.6-2.6) mg/dL Iron (65-175) ug/dL TIBC (250-450) ug/dL Iron Saturation (15.0-55.0) % Total Bilirubin (0.20-1.00) mg/dL Direct Bilirubin (0.00-0.30) mg/dL AST (15-37) U/L ALT (16-61) U/L Alkaline Phosphatase (45-117) U/L Lactate Dehydrogenase (87-241) U/L Total Creatine Kinase (39-308) U/L Troponin I (<0.045) ng/mL B-Natriuretic Peptide (0-100) pg/mL Total Protein (6.4-8.2) g/dL Albumin (3.2-5.0) g/dL Globulin (2.2-4.2) g/dL Albumin/Globulin Ratio (0.9-2.4) RATIO Triglycerides ( - 199) mg/dL Vitamin B12 (211-911) pg/mL Folate (3.1-55.4) ng/mL Urine Color (Yellow) Urine Clarity (Clear) Urine pH (5.0 - 8.0) Ur Specific [place] (1.002-1.030) Urine Protein (Negative) mg/dl Urine Glucose (UA) (Normal) mg/dl Urine Ketones (Negative) mg/dl Urine Occult Blood (Negative) /ul Urine Nitrite (Negative) Urine Bilirubin (Negative) mg/dL Urine Urobilinogen (Normal) mg/dl Ur Leukocyte Esterase (Negative) /ul Urine RBC (0-5) /hpf Urine WBC (0-5) /hpf Ur Squamous Epith Cells (0-5) /hpf Urine Bacteria (None Seen) /hpf Urine Mucus (<or=2+) /hpf Vancomycin Trough (5.0-15.0) ug/mL Random Vancomycin (0.0-15.0) ug/mL Heparin-induced Plt Ab (0.000-0.400) OD H. pylori IgG Antibody 0.16 (0.00-0.79) MRSA (PCR) (Negative) POC Glucose 285 H (70-110) mg/dL Blood Type Antibody Screen Crossmatch 06/05/18 06/05/18 06/05/18 Range/Units 10:30 05:30 03:55 WBC (4.4-11.0) K/mm3 Corrected WBC (4.4-11.0) K/mm3 RBC (4.6-6.2) M/mm3 Hgb (13.0-16.5) g/dl Hct (40-54) % MCV (80-94) fL MCH (27.0-32.0) pg MCHC (32-36) g/gl RDW (11.6-14.6) % RDW Differential (35.1-43.9) fl Plt Count (150-450) K/mm3 MPV (6.2-12.0) fl Immature Gran % (Auto) (0.0-0.9) % Neut % (Auto) (47-70) % Lymph % (Auto) (19-41) % [place] % (Auto) (0-10) % Eos % (Auto) (0-5) % Baso % (Auto) (0-1) % Absolute Neuts (auto) (2.0-7.7) X10^3/uL Absolute Lymphs (auto) (0.83-4.51) X10^3/ul Total Counted Neutrophils % (Manual) (47-70) % Band Neutrophils % (0-5) % Lymphocytes % (Manual) (19-41) % Monocytes % (Manual) (0-10) % Eosinophils % (Manual) (0-5) % Metamyelocytes % (0-1) % Myelocytes % (0-0) Promyelocytes % (0-0) Blast Cells % (0-0) % Nucleated RBC % (0-5) % Nucleated RBCs/100 WBC (0-5) % Differential Comment Diff Path Review Platelet Estimate (ADEQ) Immature Plt Fraction (1.0-7.9) % Plt Morphology Comment RBC Morphology Polychromasia Hypochromasia Anisocytosis Microcytosis Spherocytes Ovalocytes Schistocytes Retic Count (0.5-1.5) % Absolute Retic (0-5) 10^3/uL Immature Retic Fraction (3.00-15.90) % Retic Hgb Equivalent (30-35) pg Haptoglobin (34-200) mg/dL PT 19.9 H (11.7-14.9) SECONDS INR 1.7 APTT (24.1-36.2) Seconds Fibrinogen (203-444) mg/dl D-Dimer Quant (PE/DVT) Specimen Type Sample Site pH (7.35-7.45) Bicarbonate Actual (22-26) mmol/L POC Total CO2 mmol/L Base Excess (-2 to +2) mmol/L O2 Saturation (95-99) % O2 % ABG pCO2 (35-45) mmHg ABG pO2 (75-100) mmHG Sage Test Respiration Rate O2 Delivery Device Liter Flow /min Minute Volume Vent Mode Tidal Volume POC PEEP Blood Gas Notified Whom Blood Gas Notified Time Sodium 148 H (136-145) mmol/L Potassium 4.4 (3.5-5.1) mmol/L Chloride 116 H (98-107) mmol/L Carbon Dioxide 19.0 L (21.0-32.0) mmol/L Anion Gap 13 (5-15) BUN 116 H* (7-18) mg/dL Creatinine 1.92 H (0.70-1.30) mg/dL Estim Creat Clear Calc 28.61 ml/min Est GFR (MDRD) Af Amer 44 L (>60) mL/min Est GFR (MDRD) Non-Af 36 L (>60) mL/min BUN/Creatinine Ratio 60.4 H (10-20) RATIO Glucose 316 H (74-106) mg/dL Hemoglobin A1c (4.2-6.3) % Lactic Acid (0.4-2.0) mmol/L Calcium 8.1 L (8.5-10.1) mg/dL Phosphorus (2.5-4.9) mg/dL Magnesium (1.6-2.6) mg/dL Iron (65-175) ug/dL TIBC (250-450) ug/dL Iron Saturation (15.0-55.0) % Total Bilirubin (0.20-1.00) mg/dL Direct Bilirubin (0.00-0.30) mg/dL AST (15-37) U/L ALT (16-61) U/L Alkaline Phosphatase (45-117) U/L Lactate Dehydrogenase (87-241) U/L Total Creatine Kinase (39-308) U/L Troponin I (<0.045) ng/mL B-Natriuretic Peptide (0-100) pg/mL Total Protein (6.4-8.2) g/dL Albumin (3.2-5.0) g/dL Globulin (2.2-4.2) g/dL Albumin/Globulin Ratio (0.9-2.4) RATIO Triglycerides ( - 199) mg/dL Vitamin B12 (211-911) pg/mL Folate (3.1-55.4) ng/mL Urine Color (Yellow) Urine Clarity (Clear) Urine pH (5.0 - 8.0) Ur Specific [place] (1.002-1.030) Urine Protein (Negative) mg/dl Urine Glucose (UA) (Normal) mg/dl Urine Ketones (Negative) mg/dl Urine Occult Blood (Negative) /ul Urine Nitrite (Negative) Urine Bilirubin (Negative) mg/dL Urine Urobilinogen (Normal) mg/dl Ur Leukocyte Esterase (Negative) /ul Urine RBC (0-5) /hpf Urine WBC (0-5) /hpf Ur Squamous Epith Cells (0-5) /hpf Urine Bacteria (None Seen) /hpf Urine Mucus (<or=2+) /hpf Vancomycin Trough (5.0-15.0) ug/mL Random Vancomycin (0.0-15.0) ug/mL Heparin-induced Plt Ab (0.000-0.400) OD H. pylori IgG Antibody (0.00-0.79) MRSA (PCR) (Negative) POC Glucose 266 H (70-110) mg/dL Blood Type Antibody Screen Crossmatch 06/05/18 06/05/18 06/05/18 Range/Units 03:55 03:55 02:00 WBC (4.4-11.0) K/mm3 Corrected WBC (4.4-11.0) K/mm3 RBC (4.6-6.2) M/mm3 Hgb 7.8 L (13.0-16.5) g/dl Hct 24.2 L (40-54) % MCV (80-94) fL MCH (27.0-32.0) pg MCHC (32-36) g/gl RDW (11.6-14.6) % RDW Differential (35.1-43.9) fl Plt Count (150-450) K/mm3 MPV (6.2-12.0) fl Immature Gran % (Auto) (0.0-0.9) % Neut % (Auto) (47-70) % Lymph % (Auto) (19-41) % [place] % (Auto) (0-10) % Eos % (Auto) (0-5) % Baso % (Auto) (0-1) % Absolute Neuts (auto) (2.0-7.7) X10^3/uL Absolute Lymphs (auto) (0.83-4.51) X10^3/ul Total Counted Neutrophils % (Manual) (47-70) % Band Neutrophils % (0-5) % Lymphocytes % (Manual) (19-41) % Monocytes % (Manual) (0-10) % Eosinophils % (Manual) (0-5) % Metamyelocytes % (0-1) % Myelocytes % (0-0) Promyelocytes % (0-0) Blast Cells % (0-0) % Nucleated RBC % (0-5) % Nucleated RBCs/100 WBC (0-5) % Differential Comment Diff Path Review Platelet Estimate (ADEQ) Immature Plt Fraction (1.0-7.9) % Plt Morphology Comment RBC Morphology Polychromasia Hypochromasia Anisocytosis Microcytosis Spherocytes Ovalocytes Schistocytes Retic Count (0.5-1.5) % Absolute Retic (0-5) 10^3/uL Immature Retic Fraction (3.00-15.90) % Retic Hgb Equivalent (30-35) pg Haptoglobin (34-200) mg/dL PT (11.7-14.9) SECONDS INR APTT 32.6 (24.1-36.2) Seconds Fibrinogen (203-444) mg/dl D-Dimer Quant (PE/DVT) Specimen Type Sample Site pH (7.35-7.45) Bicarbonate Actual (22-26) mmol/L POC Total CO2 mmol/L Base Excess (-2 to +2) mmol/L O2 Saturation (95-99) % O2 % ABG pCO2 (35-45) mmHg ABG pO2 (75-100) mmHG Sage Test Respiration Rate O2 Delivery Device Liter Flow /min Minute Volume Vent Mode Tidal Volume POC PEEP Blood Gas Notified Whom Blood Gas Notified Time Sodium (136-145) mmol/L Potassium (3.5-5.1) mmol/L Chloride (98-107) mmol/L Carbon Dioxide (21.0-32.0) mmol/L Anion Gap (5-15) BUN (7-18) mg/dL Creatinine (0.70-1.30) mg/dL Estim Creat Clear Calc ml/min Est GFR (MDRD) Af Amer (>60) mL/min Est GFR (MDRD) Non-Af (>60) mL/min BUN/Creatinine Ratio (10-20) RATIO Glucose (74-106) mg/dL Hemoglobin A1c (4.2-6.3) % Lactic Acid (0.4-2.0) mmol/L Calcium (8.5-10.1) mg/dL Phosphorus (2.5-4.9) mg/dL Magnesium (1.6-2.6) mg/dL Iron (65-175) ug/dL TIBC (250-450) ug/dL Iron Saturation (15.0-55.0) % Total Bilirubin (0.20-1.00) mg/dL Direct Bilirubin (0.00-0.30) mg/dL AST (15-37) U/L ALT (16-61) U/L Alkaline Phosphatase (45-117) U/L Lactate Dehydrogenase (87-241) U/L Total Creatine Kinase (39-308) U/L Troponin I (<0.045) ng/mL B-Natriuretic Peptide (0-100) pg/mL Total Protein (6.4-8.2) g/dL Albumin (3.2-5.0) g/dL Globulin (2.2-4.2) g/dL Albumin/Globulin Ratio (0.9-2.4) RATIO Triglycerides ( - 199) mg/dL Vitamin B12 (211-911) pg/mL Folate (3.1-55.4) ng/mL Urine Color (Yellow) Urine Clarity (Clear) Urine pH (5.0 - 8.0) Ur Specific [place] (1.002-1.030) Urine Protein (Negative) mg/dl Urine Glucose (UA) (Normal) mg/dl Urine Ketones (Negative) mg/dl Urine Occult Blood (Negative) /ul Urine Nitrite (Negative) Urine Bilirubin (Negative) mg/dL Urine Urobilinogen (Normal) mg/dl Ur Leukocyte Esterase (Negative) /ul Urine RBC (0-5) /hpf Urine WBC (0-5) /hpf Ur Squamous Epith Cells (0-5) /hpf Urine Bacteria (None Seen) /hpf Urine Mucus (<or=2+) /hpf Vancomycin Trough 11.8 (5.0-15.0) ug/mL Random Vancomycin (0.0-15.0) ug/mL Heparin-induced Plt Ab (0.000-0.400) OD H. pylori IgG Antibody (0.00-0.79) MRSA (PCR) (Negative) POC Glucose (70-110) mg/dL Blood Type Antibody Screen Crossmatch 06/04/18 06/04/18 06/04/18 Range/Units 23:21 17:10 15:00 WBC (4.4-11.0) K/mm3 Corrected WBC (4.4-11.0) K/mm3 RBC (4.6-6.2) M/mm3 Hgb (13.0-16.5) g/dl Hct (40-54) % MCV (80-94) fL MCH (27.0-32.0) pg MCHC (32-36) g/gl RDW (11.6-14.6) % RDW Differential (35.1-43.9) fl Plt Count (150-450) K/mm3 MPV (6.2-12.0) fl Immature Gran % (Auto) (0.0-0.9) % Neut % (Auto) (47-70) % Lymph % (Auto) (19-41) % [place] % (Auto) (0-10) % Eos % (Auto) (0-5) % Baso % (Auto) (0-1) % Absolute Neuts (auto) (2.0-7.7) X10^3/uL Absolute Lymphs (auto) (0.83-4.51) X10^3/ul Total Counted Neutrophils % (Manual) (47-70) % Band Neutrophils % (0-5) % Lymphocytes % (Manual) (19-41) % Monocytes % (Manual) (0-10) % Eosinophils % (Manual) (0-5) % Metamyelocytes % (0-1) % Myelocytes % (0-0) Promyelocytes % (0-0) Blast Cells % (0-0) % Nucleated RBC % (0-5) % Nucleated RBCs/100 WBC (0-5) % Differential Comment Diff Path Review Platelet Estimate (ADEQ) Immature Plt Fraction (1.0-7.9) % Plt Morphology Comment RBC Morphology Polychromasia Hypochromasia Anisocytosis Microcytosis Spherocytes Ovalocytes Schistocytes Retic Count (0.5-1.5) % Absolute Retic (0-5) 10^3/uL Immature Retic Fraction (3.00-15.90) % Retic Hgb Equivalent (30-35) pg Haptoglobin (34-200) mg/dL PT (11.7-14.9) SECONDS INR APTT (24.1-36.2) Seconds Fibrinogen (203-444) mg/dl D-Dimer Quant (PE/DVT) Specimen Type Sample Site pH (7.35-7.45) Bicarbonate Actual (22-26) mmol/L POC Total CO2 mmol/L Base Excess (-2 to +2) mmol/L O2 Saturation (95-99) % O2 % ABG pCO2 (35-45) mmHg ABG pO2 (75-100) mmHG Sage Test Respiration Rate O2 Delivery Device Liter Flow /min Minute Volume Vent Mode Tidal Volume POC PEEP Blood Gas Notified Whom Blood Gas Notified Time Sodium (136-145) mmol/L Potassium (3.5-5.1) mmol/L Chloride (98-107) mmol/L Carbon Dioxide (21.0-32.0) mmol/L Anion Gap (5-15) BUN (7-18) mg/dL Creatinine (0.70-1.30) mg/dL Estim Creat Clear Calc ml/min Est GFR (MDRD) Af Amer (>60) mL/min Est GFR (MDRD) Non-Af (>60) mL/min BUN/Creatinine Ratio (10-20) RATIO Glucose (74-106) mg/dL Hemoglobin A1c 6.2 (4.2-6.3) % Lactic Acid (0.4-2.0) mmol/L Calcium (8.5-10.1) mg/dL Phosphorus (2.5-4.9) mg/dL Magnesium (1.6-2.6) mg/dL Iron (65-175) ug/dL TIBC (250-450) ug/dL Iron Saturation (15.0-55.0) % Total Bilirubin (0.20-1.00) mg/dL Direct Bilirubin (0.00-0.30) mg/dL AST (15-37) U/L ALT (16-61) U/L Alkaline Phosphatase (45-117) U/L Lactate Dehydrogenase (87-241) U/L Total Creatine Kinase (39-308) U/L Troponin I (<0.045) ng/mL B-Natriuretic Peptide (0-100) pg/mL Total Protein (6.4-8.2) g/dL Albumin (3.2-5.0) g/dL Globulin (2.2-4.2) g/dL Albumin/Globulin Ratio (0.9-2.4) RATIO Triglycerides ( - 199) mg/dL Vitamin B12 (211-911) pg/mL Folate (3.1-55.4) ng/mL Urine Color (Yellow) Urine Clarity (Clear) Urine pH (5.0 - 8.0) Ur Specific [place] (1.002-1.030) Urine Protein (Negative) mg/dl Urine Glucose (UA) (Normal) mg/dl Urine Ketones (Negative) mg/dl Urine Occult Blood (Negative) /ul Urine Nitrite (Negative) Urine Bilirubin (Negative) mg/dL Urine Urobilinogen (Normal) mg/dl Ur Leukocyte Esterase (Negative) /ul Urine RBC (0-5) /hpf Urine WBC (0-5) /hpf Ur Squamous Epith Cells (0-5) /hpf Urine Bacteria (None Seen) /hpf Urine Mucus (<or=2+) /hpf Vancomycin Trough (5.0-15.0) ug/mL Random Vancomycin (0.0-15.0) ug/mL Heparin-induced Plt Ab (0.000-0.400) OD H. pylori IgG Antibody (0.00-0.79) MRSA (PCR) (Negative) POC Glucose 292 H 329 H (70-110) mg/dL Blood Type Antibody Screen Crossmatch 06/04/18 06/04/18 06/04/18 Range/Units 15:00 11:39 09:55 WBC (4.4-11.0) K/mm3 Corrected WBC (4.4-11.0) K/mm3 RBC (4.6-6.2) M/mm3 Hgb 8.6 L (13.0-16.5) g/dl Hct 26.3 L (40-54) % MCV (80-94) fL MCH (27.0-32.0) pg MCHC (32-36) g/gl RDW (11.6-14.6) % RDW Differential (35.1-43.9) fl Plt Count (150-450) K/mm3 MPV (6.2-12.0) fl Immature Gran % (Auto) (0.0-0.9) % Neut % (Auto) (47-70) % Lymph % (Auto) (19-41) % [place] % (Auto) (0-10) % Eos % (Auto) (0-5) % Baso % (Auto) (0-1) % Absolute Neuts (auto) (2.0-7.7) X10^3/uL Absolute Lymphs (auto) (0.83-4.51) X10^3/ul Total Counted Neutrophils % (Manual) (47-70) % Band Neutrophils % (0-5) % Lymphocytes % (Manual) (19-41) % Monocytes % (Manual) (0-10) % Eosinophils % (Manual) (0-5) % Metamyelocytes % (0-1) % Myelocytes % (0-0) Promyelocytes % (0-0) Blast Cells % (0-0) % Nucleated RBC % (0-5) % Nucleated RBCs/100 WBC (0-5) % Differential Comment Diff Path Review Platelet Estimate (ADEQ) Immature Plt Fraction (1.0-7.9) % Plt Morphology Comment RBC Morphology Polychromasia Hypochromasia Anisocytosis Microcytosis Spherocytes Ovalocytes Schistocytes Retic Count (0.5-1.5) % Absolute Retic (0-5) 10^3/uL Immature Retic Fraction (3.00-15.90) % Retic Hgb Equivalent (30-35) pg Haptoglobin (34-200) mg/dL PT (11.7-14.9) SECONDS INR APTT 57.5 H (24.1-36.2) Seconds Fibrinogen (203-444) mg/dl D-Dimer Quant (PE/DVT) Specimen Type Sample Site pH (7.35-7.45) Bicarbonate Actual (22-26) mmol/L POC Total CO2 mmol/L Base Excess (-2 to +2) mmol/L O2 Saturation (95-99) % O2 % ABG pCO2 (35-45) mmHg ABG pO2 (75-100) mmHG Sage Test Respiration Rate O2 Delivery Device Liter Flow /min Minute Volume Vent Mode Tidal Volume POC PEEP Blood Gas Notified Whom Blood Gas Notified Time Sodium (136-145) mmol/L Potassium (3.5-5.1) mmol/L Chloride (98-107) mmol/L Carbon Dioxide (21.0-32.0) mmol/L Anion Gap (5-15) BUN (7-18) mg/dL Creatinine (0.70-1.30) mg/dL Estim Creat Clear Calc ml/min Est GFR (MDRD) Af Amer (>60) mL/min Est GFR (MDRD) Non-Af (>60) mL/min BUN/Creatinine Ratio (10-20) RATIO Glucose (74-106) mg/dL Hemoglobin A1c (4.2-6.3) % Lactic Acid (0.4-2.0) mmol/L Calcium (8.5-10.1) mg/dL Phosphorus (2.5-4.9) mg/dL Magnesium (1.6-2.6) mg/dL Iron (65-175) ug/dL TIBC (250-450) ug/dL Iron Saturation (15.0-55.0) % Total Bilirubin (0.20-1.00) mg/dL Direct Bilirubin (0.00-0.30) mg/dL AST (15-37) U/L ALT (16-61) U/L Alkaline Phosphatase (45-117) U/L Lactate Dehydrogenase (87-241) U/L Total Creatine Kinase (39-308) U/L Troponin I (<0.045) ng/mL B-Natriuretic Peptide (0-100) pg/mL Total Protein (6.4-8.2) g/dL Albumin (3.2-5.0) g/dL Globulin (2.2-4.2) g/dL Albumin/Globulin Ratio (0.9-2.4) RATIO Triglycerides ( - 199) mg/dL Vitamin B12 (211-911) pg/mL Folate (3.1-55.4) ng/mL Urine Color (Yellow) Urine Clarity (Clear) Urine pH (5.0 - 8.0) Ur Specific [place] (1.002-1.030) Urine Protein (Negative) mg/dl Urine Glucose (UA) (Normal) mg/dl Urine Ketones (Negative) mg/dl Urine Occult Blood (Negative) /ul Urine Nitrite (Negative) Urine Bilirubin (Negative) mg/dL Urine Urobilinogen (Normal) mg/dl Ur Leukocyte Esterase (Negative) /ul Urine RBC (0-5) /hpf Urine WBC (0-5) /hpf Ur Squamous Epith Cells (0-5) /hpf Urine Bacteria (None Seen) /hpf Urine Mucus (<or=2+) /hpf Vancomycin Trough (5.0-15.0) ug/mL Random Vancomycin (0.0-15.0) ug/mL Heparin-induced Plt Ab (0.000-0.400) OD H. pylori IgG Antibody (0.00-0.79) MRSA (PCR) (Negative) POC Glucose 394 H (70-110) mg/dL Blood Type Antibody Screen Crossmatch 06/04/18 06/04/18 06/04/18 Range/Units 06:32 03:30 03:30 WBC 10.2 (4.4-11.0) K/mm3 Corrected WBC (4.4-11.0) K/mm3 RBC 3.02 L (4.6-6.2) M/mm3 Hgb 8.8 L (13.0-16.5) g/dl Hct 27.4 L (40-54) % MCV 90.7 (80-94) fL MCH 29.1 (27.0-32.0) pg MCHC 32.1 (32-36) g/gl RDW 16.7 H (11.6-14.6) % RDW Differential 54.4 H (35.1-43.9) fl Plt Count 74 L (150-450) K/mm3 MPV 10.5 (6.2-12.0) fl Immature Gran % (Auto) (0.0-0.9) % Neut % (Auto) Not Reportable (47-70) % Lymph % (Auto) (19-41) % [place] % (Auto) (0-10) % Eos % (Auto) (0-5) % Baso % (Auto) (0-1) % Absolute Neuts (auto) 8.3 H (2.0-7.7) X10^3/uL Absolute Lymphs (auto) 1.63 (0.83-4.51) X10^3/ul Total Counted 100 Neutrophils % (Manual) 69 (47-70) % Band Neutrophils % 7 H (0-5) % Lymphocytes % (Manual) 16 L (19-41) % Monocytes % (Manual) 2 (0-10) % Eosinophils % (Manual) 1 (0-5) % Metamyelocytes % 4 H (0-1) % Myelocytes % 1 H (0-0) Promyelocytes % (0-0) Blast Cells % (0-0) % Nucleated RBC % 4.4 (0-5) % Nucleated RBCs/100 WBC (0-5) % Differential Comment Diff Path Review Reviewed Platelet Estimate MOD DEC (ADEQ) Immature Plt Fraction (1.0-7.9) % Plt Morphology Comment RBC Morphology RARE Polychromasia 1+ Hypochromasia Anisocytosis 1+ Microcytosis Spherocytes RARE H Ovalocytes RARE Schistocytes Retic Count (0.5-1.5) % Absolute Retic 0.45 (0-5) 10^3/uL Immature Retic Fraction (3.00-15.90) % Retic Hgb Equivalent (30-35) pg Haptoglobin (34-200) mg/dL PT (11.7-14.9) SECONDS INR APTT 73.0 H (24.1-36.2) Seconds Fibrinogen (203-444) mg/dl D-Dimer Quant (PE/DVT) Specimen Type Sample Site pH (7.35-7.45) Bicarbonate Actual (22-26) mmol/L POC Total CO2 mmol/L Base Excess (-2 to +2) mmol/L O2 Saturation (95-99) % O2 % ABG pCO2 (35-45) mmHg ABG pO2 (75-100) mmHG Sage Test Respiration Rate O2 Delivery Device Liter Flow /min Minute Volume Vent Mode Tidal Volume POC PEEP Blood Gas Notified Whom Blood Gas Notified Time Sodium (136-145) mmol/L Potassium (3.5-5.1) mmol/L Chloride (98-107) mmol/L Carbon Dioxide (21.0-32.0) mmol/L Anion Gap (5-15) BUN (7-18) mg/dL Creatinine (0.70-1.30) mg/dL Estim Creat Clear Calc ml/min Est GFR (MDRD) Af Amer (>60) mL/min Est GFR (MDRD) Non-Af (>60) mL/min BUN/Creatinine Ratio (10-20) RATIO Glucose (74-106) mg/dL Hemoglobin A1c (4.2-6.3) % Lactic Acid (0.4-2.0) mmol/L Calcium (8.5-10.1) mg/dL Phosphorus (2.5-4.9) mg/dL Magnesium (1.6-2.6) mg/dL Iron (65-175) ug/dL TIBC (250-450) ug/dL Iron Saturation (15.0-55.0) % Total Bilirubin (0.20-1.00) mg/dL Direct Bilirubin (0.00-0.30) mg/dL AST (15-37) U/L ALT (16-61) U/L Alkaline Phosphatase (45-117) U/L Lactate Dehydrogenase (87-241) U/L Total Creatine Kinase (39-308) U/L Troponin I (<0.045) ng/mL B-Natriuretic Peptide (0-100) pg/mL Total Protein (6.4-8.2) g/dL Albumin (3.2-5.0) g/dL Globulin (2.2-4.2) g/dL Albumin/Globulin Ratio (0.9-2.4) RATIO Triglycerides ( - 199) mg/dL Vitamin B12 (211-911) pg/mL Folate (3.1-55.4) ng/mL Urine Color (Yellow) Urine Clarity (Clear) Urine pH (5.0 - 8.0) Ur Specific [place] (1.002-1.030) Urine Protein (Negative) mg/dl Urine Glucose (UA) (Normal) mg/dl Urine Ketones (Negative) mg/dl Urine Occult Blood (Negative) /ul Urine Nitrite (Negative) Urine Bilirubin (Negative) mg/dL Urine Urobilinogen (Normal) mg/dl Ur Leukocyte Esterase (Negative) /ul Urine RBC (0-5) /hpf Urine WBC (0-5) /hpf Ur Squamous Epith Cells (0-5) /hpf Urine Bacteria (None Seen) /hpf Urine Mucus (<or=2+) /hpf Vancomycin Trough (5.0-15.0) ug/mL Random Vancomycin (0.0-15.0) ug/mL Heparin-induced Plt Ab (0.000-0.400) OD H. pylori IgG Antibody (0.00-0.79) MRSA (PCR) (Negative) POC Glucose 383 H (70-110) mg/dL Blood Type Antibody Screen Crossmatch 06/04/18 06/04/18 06/04/18 Range/Units 03:30 00:40 00:38 WBC (4.4-11.0) K/mm3 Corrected WBC (4.4-11.0) K/mm3 RBC (4.6-6.2) M/mm3 Hgb 9.2 L (13.0-16.5) g/dl Hct 28.1 L (40-54) % MCV (80-94) fL MCH (27.0-32.0) pg MCHC (32-36) g/gl RDW (11.6-14.6) % RDW Differential (35.1-43.9) fl Plt Count (150-450) K/mm3 MPV (6.2-12.0) fl Immature Gran % (Auto) (0.0-0.9) % Neut % (Auto) (47-70) % Lymph % (Auto) (19-41) % [place] % (Auto) (0-10) % Eos % (Auto) (0-5) % Baso % (Auto) (0-1) % Absolute Neuts (auto) (2.0-7.7) X10^3/uL Absolute Lymphs (auto) (0.83-4.51) X10^3/ul Total Counted Neutrophils % (Manual) (47-70) % Band Neutrophils % (0-5) % Lymphocytes % (Manual) (19-41) % Monocytes % (Manual) (0-10) % Eosinophils % (Manual) (0-5) % Metamyelocytes % (0-1) % Myelocytes % (0-0) Promyelocytes % (0-0) Blast Cells % (0-0) % Nucleated RBC % (0-5) % Nucleated RBCs/100 WBC (0-5) % Differential Comment Diff Path Review Platelet Estimate (ADEQ) Immature Plt Fraction (1.0-7.9) % Plt Morphology Comment RBC Morphology Polychromasia Hypochromasia Anisocytosis Microcytosis Spherocytes Ovalocytes Schistocytes Retic Count (0.5-1.5) % Absolute Retic (0-5) 10^3/uL Immature Retic Fraction (3.00-15.90) % Retic Hgb Equivalent (30-35) pg Haptoglobin (34-200) mg/dL PT (11.7-14.9) SECONDS INR APTT (24.1-36.2) Seconds Fibrinogen (203-444) mg/dl D-Dimer Quant (PE/DVT) Specimen Type Sample Site pH (7.35-7.45) Bicarbonate Actual (22-26) mmol/L POC Total CO2 mmol/L Base Excess (-2 to +2) mmol/L O2 Saturation (95-99) % O2 % ABG pCO2 (35-45) mmHg ABG pO2 (75-100) mmHG Sage Test Respiration Rate O2 Delivery Device Liter Flow /min Minute Volume Vent Mode Tidal Volume POC PEEP Blood Gas Notified Whom Blood Gas Notified Time Sodium 145 (136-145) mmol/L Potassium 4.2 (3.5-5.1) mmol/L Chloride 114 H (98-107) mmol/L Carbon Dioxide 17.0 L (21.0-32.0) mmol/L Anion Gap 14 (5-15) BUN 102 H* (7-18) mg/dL Creatinine 1.92 H (0.70-1.30) mg/dL Estim Creat Clear Calc 28.61 ml/min Est GFR (MDRD) Af Amer 44 L (>60) mL/min Est GFR (MDRD) Non-Af 36 L (>60) mL/min BUN/Creatinine Ratio 53.1 H (10-20) RATIO Glucose 496 H* (74-106) mg/dL Hemoglobin A1c (4.2-6.3) % Lactic Acid (0.4-2.0) mmol/L Calcium 8.2 L (8.5-10.1) mg/dL Phosphorus (2.5-4.9) mg/dL Magnesium (1.6-2.6) mg/dL Iron (65-175) ug/dL TIBC (250-450) ug/dL Iron Saturation (15.0-55.0) % Total Bilirubin (0.20-1.00) mg/dL Direct Bilirubin (0.00-0.30) mg/dL AST (15-37) U/L ALT (16-61) U/L Alkaline Phosphatase (45-117) U/L Lactate Dehydrogenase (87-241) U/L Total Creatine Kinase (39-308) U/L Troponin I (<0.045) ng/mL B-Natriuretic Peptide (0-100) pg/mL Total Protein (6.4-8.2) g/dL Albumin (3.2-5.0) g/dL Globulin (2.2-4.2) g/dL Albumin/Globulin Ratio (0.9-2.4) RATIO Triglycerides ( - 199) mg/dL Vitamin B12 (211-911) pg/mL Folate (3.1-55.4) ng/mL Urine Color (Yellow) Urine Clarity (Clear) Urine pH (5.0 - 8.0) Ur Specific [place] (1.002-1.030) Urine Protein (Negative) mg/dl Urine Glucose (UA) (Normal) mg/dl Urine Ketones (Negative) mg/dl Urine Occult Blood (Negative) /ul Urine Nitrite (Negative) Urine Bilirubin (Negative) mg/dL Urine Urobilinogen (Normal) mg/dl Ur Leukocyte Esterase (Negative) /ul Urine RBC (0-5) /hpf Urine WBC (0-5) /hpf Ur Squamous Epith Cells (0-5) /hpf Urine Bacteria (None Seen) /hpf Urine Mucus (<or=2+) /hpf Vancomycin Trough (5.0-15.0) ug/mL Random Vancomycin (0.0-15.0) ug/mL Heparin-induced Plt Ab (0.000-0.400) OD H. pylori IgG Antibody (0.00-0.79) MRSA (PCR) (Negative) POC Glucose 360 H (70-110) mg/dL Blood Type Antibody Screen Crossmatch 06/03/18 06/03/18 06/03/18 Range/Units 19:40 17:23 16:30 WBC (4.4-11.0) K/mm3 Corrected WBC (4.4-11.0) K/mm3 RBC (4.6-6.2) M/mm3 Hgb Cancelled (13.0-16.5) g/dl Hct Cancelled (40-54) % MCV (80-94) fL MCH (27.0-32.0) pg MCHC (32-36) g/gl RDW (11.6-14.6) % RDW Differential (35.1-43.9) fl Plt Count (150-450) K/mm3 MPV (6.2-12.0) fl Immature Gran % (Auto) (0.0-0.9) % Neut % (Auto) (47-70) % Lymph % (Auto) (19-41) % [place] % (Auto) (0-10) % Eos % (Auto) (0-5) % Baso % (Auto) (0-1) % Absolute Neuts (auto) (2.0-7.7) X10^3/uL Absolute Lymphs (auto) (0.83-4.51) X10^3/ul Total Counted Neutrophils % (Manual) (47-70) % Band Neutrophils % (0-5) % Lymphocytes % (Manual) (19-41) % Monocytes % (Manual) (0-10) % Eosinophils % (Manual) (0-5) % Metamyelocytes % (0-1) % Myelocytes % (0-0) Promyelocytes % (0-0) Blast Cells % (0-0) % Nucleated RBC % (0-5) % Nucleated RBCs/100 WBC (0-5) % Differential Comment Diff Path Review Platelet Estimate (ADEQ) Immature Plt Fraction (1.0-7.9) % Plt Morphology Comment RBC Morphology Polychromasia Hypochromasia Anisocytosis Microcytosis Spherocytes Ovalocytes Schistocytes Retic Count (0.5-1.5) % Absolute Retic (0-5) 10^3/uL Immature Retic Fraction (3.00-15.90) % Retic Hgb Equivalent (30-35) pg Haptoglobin (34-200) mg/dL PT (11.7-14.9) SECONDS INR APTT 83.5 H (24.1-36.2) Seconds Fibrinogen (203-444) mg/dl D-Dimer Quant (PE/DVT) Specimen Type Sample Site pH (7.35-7.45) Bicarbonate Actual (22-26) mmol/L POC Total CO2 mmol/L Base Excess (-2 to +2) mmol/L O2 Saturation (95-99) % O2 % ABG pCO2 (35-45) mmHg ABG pO2 (75-100) mmHG Sage Test Respiration Rate O2 Delivery Device Liter Flow /min Minute Volume Vent Mode Tidal Volume POC PEEP Blood Gas Notified Whom Blood Gas Notified Time Sodium (136-145) mmol/L Potassium (3.5-5.1) mmol/L Chloride (98-107) mmol/L Carbon Dioxide (21.0-32.0) mmol/L Anion Gap (5-15) BUN (7-18) mg/dL Creatinine (0.70-1.30) mg/dL Estim Creat Clear Calc ml/min Est GFR (MDRD) Af Amer (>60) mL/min Est GFR (MDRD) Non-Af (>60) mL/min BUN/Creatinine Ratio (10-20) RATIO Glucose (74-106) mg/dL Hemoglobin A1c (4.2-6.3) % Lactic Acid (0.4-2.0) mmol/L Calcium (8.5-10.1) mg/dL Phosphorus (2.5-4.9) mg/dL Magnesium (1.6-2.6) mg/dL Iron (65-175) ug/dL TIBC (250-450) ug/dL Iron Saturation (15.0-55.0) % Total Bilirubin (0.20-1.00) mg/dL Direct Bilirubin (0.00-0.30) mg/dL AST (15-37) U/L ALT (16-61) U/L Alkaline Phosphatase (45-117) U/L Lactate Dehydrogenase (87-241) U/L Total Creatine Kinase (39-308) U/L Troponin I (<0.045) ng/mL B-Natriuretic Peptide (0-100) pg/mL Total Protein (6.4-8.2) g/dL Albumin (3.2-5.0) g/dL Globulin (2.2-4.2) g/dL Albumin/Globulin Ratio (0.9-2.4) RATIO Triglycerides ( - 199) mg/dL Vitamin B12 (211-911) pg/mL Folate (3.1-55.4) ng/mL Urine Color (Yellow) Urine Clarity (Clear) Urine pH (5.0 - 8.0) Ur Specific [place] (1.002-1.030) Urine Protein (Negative) mg/dl Urine Glucose (UA) (Normal) mg/dl Urine Ketones (Negative) mg/dl Urine Occult Blood (Negative) /ul Urine Nitrite (Negative) Urine Bilirubin (Negative) mg/dL Urine Urobilinogen (Normal) mg/dl Ur Leukocyte Esterase (Negative) /ul Urine RBC (0-5) /hpf Urine WBC (0-5) /hpf Ur Squamous Epith Cells (0-5) /hpf Urine Bacteria (None Seen) /hpf Urine Mucus (<or=2+) /hpf Vancomycin Trough (5.0-15.0) ug/mL Random Vancomycin (0.0-15.0) ug/mL Heparin-induced Plt Ab (0.000-0.400) OD H. pylori IgG Antibody (0.00-0.79) MRSA (PCR) (Negative) POC Glucose 286 H (70-110) mg/dL Blood Type Antibody Screen Crossmatch 06/03/18 06/03/18 06/03/18 Range/Units 15:45 14:05 11:17 WBC (4.4-11.0) K/mm3 Corrected WBC (4.4-11.0) K/mm3 RBC (4.6-6.2) M/mm3 Hgb 6.8 L (13.0-16.5) g/dl Hct 21.8 L (40-54) % MCV (80-94) fL MCH (27.0-32.0) pg MCHC (32-36) g/gl RDW (11.6-14.6) % RDW Differential (35.1-43.9) fl Plt Count (150-450) K/mm3 MPV (6.2-12.0) fl Immature Gran % (Auto) (0.0-0.9) % Neut % (Auto) (47-70) % Lymph % (Auto) (19-41) % [place] % (Auto) (0-10) % Eos % (Auto) (0-5) % Baso % (Auto) (0-1) % Absolute Neuts (auto) (2.0-7.7) X10^3/uL Absolute Lymphs (auto) (0.83-4.51) X10^3/ul Total Counted Neutrophils % (Manual) (47-70) % Band Neutrophils % (0-5) % Lymphocytes % (Manual) (19-41) % Monocytes % (Manual) (0-10) % Eosinophils % (Manual) (0-5) % Metamyelocytes % (0-1) % Myelocytes % (0-0) Promyelocytes % (0-0) Blast Cells % (0-0) % Nucleated RBC % (0-5) % Nucleated RBCs/100 WBC (0-5) % Differential Comment Diff Path Review Platelet Estimate (ADEQ) Immature Plt Fraction (1.0-7.9) % Plt Morphology Comment RBC Morphology Polychromasia Hypochromasia Anisocytosis Microcytosis Spherocytes Ovalocytes Schistocytes Retic Count (0.5-1.5) % Absolute Retic (0-5) 10^3/uL Immature Retic Fraction (3.00-15.90) % Retic Hgb Equivalent (30-35) pg Haptoglobin (34-200) mg/dL PT (11.7-14.9) SECONDS INR APTT 67.9 H (24.1-36.2) Seconds Fibrinogen (203-444) mg/dl D-Dimer Quant (PE/DVT) Specimen Type Sample Site pH (7.35-7.45) Bicarbonate Actual (22-26) mmol/L POC Total CO2 mmol/L Base Excess (-2 to +2) mmol/L O2 Saturation (95-99) % O2 % ABG pCO2 (35-45) mmHg ABG pO2 (75-100) mmHG Sage Test Respiration Rate O2 Delivery Device Liter Flow /min Minute Volume Vent Mode Tidal Volume POC PEEP Blood Gas Notified Whom Blood Gas Notified Time Sodium (136-145) mmol/L Potassium (3.5-5.1) mmol/L Chloride (98-107) mmol/L Carbon Dioxide (21.0-32.0) mmol/L Anion Gap (5-15) BUN (7-18) mg/dL Creatinine (0.70-1.30) mg/dL Estim Creat Clear Calc ml/min Est GFR (MDRD) Af Amer (>60) mL/min Est GFR (MDRD) Non-Af (>60) mL/min BUN/Creatinine Ratio (10-20) RATIO Glucose (74-106) mg/dL Hemoglobin A1c (4.2-6.3) % Lactic Acid (0.4-2.0) mmol/L Calcium (8.5-10.1) mg/dL Phosphorus (2.5-4.9) mg/dL Magnesium (1.6-2.6) mg/dL Iron (65-175) ug/dL TIBC (250-450) ug/dL Iron Saturation (15.0-55.0) % Total Bilirubin (0.20-1.00) mg/dL Direct Bilirubin (0.00-0.30) mg/dL AST (15-37) U/L ALT (16-61) U/L Alkaline Phosphatase (45-117) U/L Lactate Dehydrogenase (87-241) U/L Total Creatine Kinase (39-308) U/L Troponin I (<0.045) ng/mL B-Natriuretic Peptide (0-100) pg/mL Total Protein (6.4-8.2) g/dL Albumin (3.2-5.0) g/dL Globulin (2.2-4.2) g/dL Albumin/Globulin Ratio (0.9-2.4) RATIO Triglycerides ( - 199) mg/dL Vitamin B12 (211-911) pg/mL Folate (3.1-55.4) ng/mL Urine Color (Yellow) Urine Clarity (Clear) Urine pH (5.0 - 8.0) Ur Specific [place] (1.002-1.030) Urine Protein (Negative) mg/dl Urine Glucose (UA) (Normal) mg/dl Urine Ketones (Negative) mg/dl Urine Occult Blood (Negative) /ul Urine Nitrite (Negative) Urine Bilirubin (Negative) mg/dL Urine Urobilinogen (Normal) mg/dl Ur Leukocyte Esterase (Negative) /ul Urine RBC (0-5) /hpf Urine WBC (0-5) /hpf Ur Squamous Epith Cells (0-5) /hpf Urine Bacteria (None Seen) /hpf Urine Mucus (<or=2+) /hpf Vancomycin Trough (5.0-15.0) ug/mL Random Vancomycin (0.0-15.0) ug/mL Heparin-induced Plt Ab (0.000-0.400) OD H. pylori IgG Antibody (0.00-0.79) MRSA (PCR) (Negative) POC Glucose 273 H (70-110) mg/dL Blood Type Antibody Screen Crossmatch 06/03/18 06/03/18 06/03/18 Range/Units 11:15 08:00 08:00 WBC (4.4-11.0) K/mm3 Corrected WBC (4.4-11.0) K/mm3 RBC (4.6-6.2) M/mm3 Hgb 7.3 L (13.0-16.5) g/dl Hct 23.6 L (40-54) % MCV (80-94) fL MCH (27.0-32.0) pg MCHC (32-36) g/gl RDW (11.6-14.6) % RDW Differential (35.1-43.9) fl Plt Count (150-450) K/mm3 MPV (6.2-12.0) fl Immature Gran % (Auto) (0.0-0.9) % Neut % (Auto) (47-70) % Lymph % (Auto) (19-41) % [place] % (Auto) (0-10) % Eos % (Auto) (0-5) % Baso % (Auto) (0-1) % Absolute Neuts (auto) (2.0-7.7) X10^3/uL Absolute Lymphs (auto) (0.83-4.51) X10^3/ul Total Counted Neutrophils % (Manual) (47-70) % Band Neutrophils % (0-5) % Lymphocytes % (Manual) (19-41) % Monocytes % (Manual) (0-10) % Eosinophils % (Manual) (0-5) % Metamyelocytes % (0-1) % Myelocytes % (0-0) Promyelocytes % (0-0) Blast Cells % (0-0) % Nucleated RBC % (0-5) % Nucleated RBCs/100 WBC (0-5) % Differential Comment Diff Path Review Platelet Estimate (ADEQ) Immature Plt Fraction (1.0-7.9) % Plt Morphology Comment RBC Morphology Polychromasia Hypochromasia Anisocytosis Microcytosis Spherocytes Ovalocytes Schistocytes Retic Count (0.5-1.5) % Absolute Retic (0-5) 10^3/uL Immature Retic Fraction (3.00-15.90) % Retic Hgb Equivalent (30-35) pg Haptoglobin (34-200) mg/dL PT (11.7-14.9) SECONDS INR APTT (24.1-36.2) Seconds Fibrinogen (203-444) mg/dl D-Dimer Quant (PE/DVT) Specimen Type Sample Site pH (7.35-7.45) Bicarbonate Actual (22-26) mmol/L POC Total CO2 mmol/L Base Excess (-2 to +2) mmol/L O2 Saturation (95-99) % O2 % ABG pCO2 (35-45) mmHg ABG pO2 (75-100) mmHG Sage Test Respiration Rate O2 Delivery Device Liter Flow /min Minute Volume Vent Mode Tidal Volume POC PEEP Blood Gas Notified Whom Blood Gas Notified Time Sodium (136-145) mmol/L Potassium (3.5-5.1) mmol/L Chloride (98-107) mmol/L Carbon Dioxide (21.0-32.0) mmol/L Anion Gap (5-15) BUN (7-18) mg/dL Creatinine (0.70-1.30) mg/dL Estim Creat Clear Calc ml/min Est GFR (MDRD) Af Amer (>60) mL/min Est GFR (MDRD) Non-Af (>60) mL/min BUN/Creatinine Ratio (10-20) RATIO Glucose (74-106) mg/dL Hemoglobin A1c (4.2-6.3) % Lactic Acid (0.4-2.0) mmol/L Calcium (8.5-10.1) mg/dL Phosphorus (2.5-4.9) mg/dL Magnesium (1.6-2.6) mg/dL Iron (65-175) ug/dL TIBC (250-450) ug/dL Iron Saturation (15.0-55.0) % Total Bilirubin (0.20-1.00) mg/dL Direct Bilirubin (0.00-0.30) mg/dL AST (15-37) U/L ALT (16-61) U/L Alkaline Phosphatase (45-117) U/L Lactate Dehydrogenase (87-241) U/L Total Creatine Kinase (39-308) U/L Troponin I (<0.045) ng/mL B-Natriuretic Peptide (0-100) pg/mL Total Protein (6.4-8.2) g/dL Albumin (3.2-5.0) g/dL Globulin (2.2-4.2) g/dL Albumin/Globulin Ratio (0.9-2.4) RATIO Triglycerides ( - 199) mg/dL Vitamin B12 (211-911) pg/mL Folate (3.1-55.4) ng/mL Urine Color (Yellow) Urine Clarity (Clear) Urine pH (5.0 - 8.0) Ur Specific [place] (1.002-1.030) Urine Protein (Negative) mg/dl Urine Glucose (UA) (Normal) mg/dl Urine Ketones (Negative) mg/dl Urine Occult Blood (Negative) /ul Urine Nitrite (Negative) Urine Bilirubin (Negative) mg/dL Urine Urobilinogen (Normal) mg/dl Ur Leukocyte Esterase (Negative) /ul Urine RBC (0-5) /hpf Urine WBC (0-5) /hpf Ur Squamous Epith Cells (0-5) /hpf Urine Bacteria (None Seen) /hpf Urine Mucus (<or=2+) /hpf Vancomycin Trough (5.0-15.0) ug/mL Random Vancomycin (0.0-15.0) ug/mL Heparin-induced Plt Ab (0.000-0.400) OD H. pylori IgG Antibody (0.00-0.79) MRSA (PCR) Negative (Negative) POC Glucose (70-110) mg/dL Blood Type Antibody Screen Crossmatch See Detail 06/03/18 06/03/18 06/03/18 Range/Units 08:00 06:55 06:39 WBC (4.4-11.0) K/mm3 Corrected WBC (4.4-11.0) K/mm3 RBC (4.6-6.2) M/mm3 Hgb (13.0-16.5) g/dl Hct (40-54) % MCV (80-94) fL MCH (27.0-32.0) pg MCHC (32-36) g/gl RDW (11.6-14.6) % RDW Differential (35.1-43.9) fl Plt Count (150-450) K/mm3 MPV (6.2-12.0) fl Immature Gran % (Auto) (0.0-0.9) % Neut % (Auto) (47-70) % Lymph % (Auto) (19-41) % [place] % (Auto) (0-10) % Eos % (Auto) (0-5) % Baso % (Auto) (0-1) % Absolute Neuts (auto) (2.0-7.7) X10^3/uL Absolute Lymphs (auto) (0.83-4.51) X10^3/ul Total Counted Neutrophils % (Manual) (47-70) % Band Neutrophils % (0-5) % Lymphocytes % (Manual) (19-41) % Monocytes % (Manual) (0-10) % Eosinophils % (Manual) (0-5) % Metamyelocytes % (0-1) % Myelocytes % (0-0) Promyelocytes % (0-0) Blast Cells % (0-0) % Nucleated RBC % (0-5) % Nucleated RBCs/100 WBC (0-5) % Differential Comment Diff Path Review Platelet Estimate (ADEQ) Immature Plt Fraction (1.0-7.9) % Plt Morphology Comment RBC Morphology Polychromasia Hypochromasia Anisocytosis Microcytosis Spherocytes Ovalocytes Schistocytes Retic Count (0.5-1.5) % Absolute Retic (0-5) 10^3/uL Immature Retic Fraction (3.00-15.90) % Retic Hgb Equivalent (30-35) pg Haptoglobin (34-200) mg/dL PT (11.7-14.9) SECONDS INR APTT 118.5 H* (24.1-36.2) Seconds Fibrinogen (203-444) mg/dl D-Dimer Quant (PE/DVT) Specimen Type Sample Site pH (7.35-7.45) Bicarbonate Actual (22-26) mmol/L POC Total CO2 mmol/L Base Excess (-2 to +2) mmol/L O2 Saturation (95-99) % O2 % ABG pCO2 (35-45) mmHg ABG pO2 (75-100) mmHG Sage Test Respiration Rate O2 Delivery Device Liter Flow /min Minute Volume Vent Mode Tidal Volume POC PEEP Blood Gas Notified Whom Blood Gas Notified Time Sodium (136-145) mmol/L Potassium (3.5-5.1) mmol/L Chloride (98-107) mmol/L Carbon Dioxide (21.0-32.0) mmol/L Anion Gap (5-15) BUN (7-18) mg/dL Creatinine (0.70-1.30) mg/dL Estim Creat Clear Calc ml/min Est GFR (MDRD) Af Amer (>60) mL/min Est GFR (MDRD) Non-Af (>60) mL/min BUN/Creatinine Ratio (10-20) RATIO Glucose (74-106) mg/dL Hemoglobin A1c (4.2-6.3) % Lactic Acid (0.4-2.0) mmol/L Calcium (8.5-10.1) mg/dL Phosphorus (2.5-4.9) mg/dL Magnesium (1.6-2.6) mg/dL Iron (65-175) ug/dL TIBC (250-450) ug/dL Iron Saturation (15.0-55.0) % Total Bilirubin (0.20-1.00) mg/dL Direct Bilirubin (0.00-0.30) mg/dL AST (15-37) U/L ALT (16-61) U/L Alkaline Phosphatase (45-117) U/L Lactate Dehydrogenase (87-241) U/L Total Creatine Kinase (39-308) U/L Troponin I (<0.045) ng/mL B-Natriuretic Peptide (0-100) pg/mL Total Protein (6.4-8.2) g/dL Albumin (3.2-5.0) g/dL Globulin (2.2-4.2) g/dL Albumin/Globulin Ratio (0.9-2.4) RATIO Triglycerides ( - 199) mg/dL Vitamin B12 (211-911) pg/mL Folate (3.1-55.4) ng/mL Urine Color (Yellow) Urine Clarity (Clear) Urine pH (5.0 - 8.0) Ur Specific [place] (1.002-1.030) Urine Protein (Negative) mg/dl Urine Glucose (UA) (Normal) mg/dl Urine Ketones (Negative) mg/dl Urine Occult Blood (Negative) /ul Urine Nitrite (Negative) Urine Bilirubin (Negative) mg/dL Urine Urobilinogen (Normal) mg/dl Ur Leukocyte Esterase (Negative) /ul Urine RBC (0-5) /hpf Urine WBC (0-5) /hpf Ur Squamous Epith Cells (0-5) /hpf Urine Bacteria (None Seen) /hpf Urine Mucus (<or=2+) /hpf Vancomycin Trough (5.0-15.0) ug/mL Random Vancomycin (0.0-15.0) ug/mL Heparin-induced Plt Ab (0.000-0.400) OD H. pylori IgG Antibody (0.00-0.79) MRSA (PCR) (Negative) POC Glucose 250 H (70-110) mg/dL Blood Type AB POSITIVE Antibody Screen NEGATIVE Crossmatch 06/03/18 06/03/18 06/03/18 Range/Units 06:15 06:15 06:15 WBC (4.4-11.0) K/mm3 Corrected WBC (4.4-11.0) K/mm3 RBC (4.6-6.2) M/mm3 Hgb (13.0-16.5) g/dl Hct (40-54) % MCV (80-94) fL MCH (27.0-32.0) pg MCHC (32-36) g/gl RDW (11.6-14.6) % RDW Differential (35.1-43.9) fl Plt Count (150-450) K/mm3 MPV (6.2-12.0) fl Immature Gran % (Auto) (0.0-0.9) % Neut % (Auto) (47-70) % Lymph % (Auto) (19-41) % [place] % (Auto) (0-10) % Eos % (Auto) (0-5) % Baso % (Auto) (0-1) % Absolute Neuts (auto) (2.0-7.7) X10^3/uL Absolute Lymphs (auto) (0.83-4.51) X10^3/ul Total Counted Neutrophils % (Manual) (47-70) % Band Neutrophils % (0-5) % Lymphocytes % (Manual) (19-41) % Monocytes % (Manual) (0-10) % Eosinophils % (Manual) (0-5) % Metamyelocytes % (0-1) % Myelocytes % (0-0) Promyelocytes % (0-0) Blast Cells % (0-0) % Nucleated RBC % (0-5) % Nucleated RBCs/100 WBC (0-5) % Differential Comment Diff Path Review Platelet Estimate (ADEQ) Immature Plt Fraction (1.0-7.9) % Plt Morphology Comment RBC Morphology Polychromasia Hypochromasia Anisocytosis Microcytosis Spherocytes Ovalocytes Schistocytes Retic Count (0.5-1.5) % Absolute Retic (0-5) 10^3/uL Immature Retic Fraction (3.00-15.90) % Retic Hgb Equivalent (30-35) pg Haptoglobin (34-200) mg/dL PT (11.7-14.9) SECONDS INR APTT (24.1-36.2) Seconds Fibrinogen (203-444) mg/dl D-Dimer Quant (PE/DVT) Specimen Type Sample Site pH (7.35-7.45) Bicarbonate Actual (22-26) mmol/L POC Total CO2 mmol/L Base Excess (-2 to +2) mmol/L O2 Saturation (95-99) % O2 % ABG pCO2 (35-45) mmHg ABG pO2 (75-100) mmHG Asge Test Respiration Rate O2 Delivery Device Liter Flow /min Minute Volume Vent Mode Tidal Volume POC PEEP Blood Gas Notified Whom Blood Gas Notified Time Sodium (136-145) mmol/L Potassium (3.5-5.1) mmol/L Chloride (98-107) mmol/L Carbon Dioxide (21.0-32.0) mmol/L Anion Gap (5-15) BUN (7-18) mg/dL Creatinine (0.70-1.30) mg/dL Estim Creat Clear Calc ml/min Est GFR (MDRD) Af Amer (>60) mL/min Est GFR (MDRD) Non-Af (>60) mL/min BUN/Creatinine Ratio (10-20) RATIO Glucose (74-106) mg/dL Hemoglobin A1c (4.2-6.3) % Lactic Acid (0.4-2.0) mmol/L Calcium (8.5-10.1) mg/dL Phosphorus (2.5-4.9) mg/dL Magnesium (1.6-2.6) mg/dL Iron (65-175) ug/dL TIBC (250-450) ug/dL Iron Saturation (15.0-55.0) % Total Bilirubin 0.30 (0.20-1.00) mg/dL Direct Bilirubin 0.10 (0.00-0.30) mg/dL AST 216 H (15-37) U/L ALT 44 (16-61) U/L Alkaline Phosphatase 130 H (45-117) U/L Lactate Dehydrogenase (87-241) U/L Total Creatine Kinase 227 (39-308) U/L Troponin I (<0.045) ng/mL B-Natriuretic Peptide 121.7 H (0-100) pg/mL Total Protein 5.2 L (6.4-8.2) g/dL Albumin 1.9 L (3.2-5.0) g/dL Globulin 3.3 (2.2-4.2) g/dL Albumin/Globulin Ratio (0.9-2.4) RATIO Triglycerides ( - 199) mg/dL Vitamin B12 (211-911) pg/mL Folate (3.1-55.4) ng/mL Urine Color (Yellow) Urine Clarity (Clear) Urine pH (5.0 - 8.0) Ur Specific [place] (1.002-1.030) Urine Protein (Negative) mg/dl Urine Glucose (UA) (Normal) mg/dl Urine Ketones (Negative) mg/dl Urine Occult Blood (Negative) /ul Urine Nitrite (Negative) Urine Bilirubin (Negative) mg/dL Urine Urobilinogen (Normal) mg/dl Ur Leukocyte Esterase (Negative) /ul Urine RBC (0-5) /hpf Urine WBC (0-5) /hpf Ur Squamous Epith Cells (0-5) /hpf Urine Bacteria (None Seen) /hpf Urine Mucus (<or=2+) /hpf Vancomycin Trough (5.0-15.0) ug/mL Random Vancomycin (0.0-15.0) ug/mL Heparin-induced Plt Ab (0.000-0.400) OD H. pylori IgG Antibody (0.00-0.79) MRSA (PCR) (Negative) POC Glucose (70-110) mg/dL Blood Type Antibody Screen Crossmatch 06/03/18 06/03/18 06/03/18 Range/Units 06:15 06:15 06:15 WBC 7.8 (4.4-11.0) K/mm3 Corrected WBC (4.4-11.0) K/mm3 RBC 2.61 L (4.6-6.2) M/mm3 Hgb 7.7 L (13.0-16.5) g/dl Hct 24.7 L (40-54) % MCV 94.6 H (80-94) fL MCH 29.5 (27.0-32.0) pg MCHC 31.2 L (32-36) g/gl RDW 15.2 H (11.6-14.6) % RDW Differential 51.6 H (35.1-43.9) fl Plt Count 80 L (150-450) K/mm3 MPV 11.1 (6.2-12.0) fl Immature Gran % (Auto) 2.100 H (0.0-0.9) % Neut % (Auto) 62.6 (47-70) % Lymph % (Auto) 28.1 (19-41) % [place] % (Auto) 6.6 (0-10) % Eos % (Auto) 0.1 (0-5) % Baso % (Auto) 0.5 (0-1) % Absolute Neuts (auto) 4.9 (2.0-7.7) X10^3/uL Absolute Lymphs (auto) 2.19 (0.83-4.51) X10^3/ul Total Counted Not Reportable Neutrophils % (Manual) (47-70) % Band Neutrophils % (0-5) % Lymphocytes % (Manual) (19-41) % Monocytes % (Manual) (0-10) % Eosinophils % (Manual) (0-5) % Metamyelocytes % (0-1) % Myelocytes % (0-0) Promyelocytes % (0-0) Blast Cells % (0-0) % Nucleated RBC % 2.9 (0-5) % Nucleated RBCs/100 WBC (0-5) % Differential Comment Diff Path Review Reviewed Platelet Estimate (ADEQ) Immature Plt Fraction (1.0-7.9) % Plt Morphology Comment RBC Morphology Polychromasia Hypochromasia Anisocytosis Microcytosis Spherocytes Ovalocytes Schistocytes Retic Count (0.5-1.5) % Absolute Retic 0.22 (0-5) 10^3/uL Immature Retic Fraction (3.00-15.90) % Retic Hgb Equivalent (30-35) pg Haptoglobin (34-200) mg/dL PT (11.7-14.9) SECONDS INR APTT (24.1-36.2) Seconds Fibrinogen (203-444) mg/dl D-Dimer Quant (PE/DVT) Specimen Type Sample Site pH (7.35-7.45) Bicarbonate Actual (22-26) mmol/L POC Total CO2 mmol/L Base Excess (-2 to +2) mmol/L O2 Saturation (95-99) % O2 % ABG pCO2 (35-45) mmHg ABG pO2 (75-100) mmHG Sage Test Respiration Rate O2 Delivery Device Liter Flow /min Minute Volume Vent Mode Tidal Volume POC PEEP Blood Gas Notified Whom Blood Gas Notified Time Sodium 146 H (136-145) mmol/L Potassium 4.1 (3.5-5.1) mmol/L Chloride 112 H (98-107) mmol/L Carbon Dioxide 21.0 (21.0-32.0) mmol/L Anion Gap 13 (5-15) BUN 84 H (7-18) mg/dL Creatinine 1.93 H (0.70-1.30) mg/dL Estim Creat Clear Calc 28.47 ml/min Est GFR (MDRD) Af Amer 43 L (>60) mL/min Est GFR (MDRD) Non-Af 36 L (>60) mL/min BUN/Creatinine Ratio 43.5 H (10-20) RATIO Glucose 284 H (74-106) mg/dL Hemoglobin A1c (4.2-6.3) % Lactic Acid (0.4-2.0) mmol/L Calcium 8.3 L (8.5-10.1) mg/dL Phosphorus (2.5-4.9) mg/dL Magnesium (1.6-2.6) mg/dL Iron (65-175) ug/dL TIBC (250-450) ug/dL Iron Saturation (15.0-55.0) % Total Bilirubin (0.20-1.00) mg/dL Direct Bilirubin (0.00-0.30) mg/dL AST (15-37) U/L ALT (16-61) U/L Alkaline Phosphatase (45-117) U/L Lactate Dehydrogenase (87-241) U/L Total Creatine Kinase (39-308) U/L Troponin I 0.084 H (<0.045) ng/mL B-Natriuretic Peptide (0-100) pg/mL Total Protein (6.4-8.2) g/dL Albumin (3.2-5.0) g/dL Globulin (2.2-4.2) g/dL Albumin/Globulin Ratio (0.9-2.4) RATIO Triglycerides ( - 199) mg/dL Vitamin B12 (211-911) pg/mL Folate (3.1-55.4) ng/mL Urine Color (Yellow) Urine Clarity (Clear) Urine pH (5.0 - 8.0) Ur Specific [place] (1.002-1.030) Urine Protein (Negative) mg/dl Urine Glucose (UA) (Normal) mg/dl Urine Ketones (Negative) mg/dl Urine Occult Blood (Negative) /ul Urine Nitrite (Negative) Urine Bilirubin (Negative) mg/dL Urine Urobilinogen (Normal) mg/dl Ur Leukocyte Esterase (Negative) /ul Urine RBC (0-5) /hpf Urine WBC (0-5) /hpf Ur Squamous Epith Cells (0-5) /hpf Urine Bacteria (None Seen) /hpf Urine Mucus (<or=2+) /hpf Vancomycin Trough (5.0-15.0) ug/mL Random Vancomycin (0.0-15.0) ug/mL Heparin-induced Plt Ab (0.000-0.400) OD H. pylori IgG Antibody (0.00-0.79) MRSA (PCR) (Negative) POC Glucose (70-110) mg/dL Blood Type Antibody Screen Crossmatch 06/03/18 06/03/18 06/03/18 Range/Units 02:30 01:53 00:10 WBC (4.4-11.0) K/mm3 Corrected WBC (4.4-11.0) K/mm3 RBC (4.6-6.2) M/mm3 Hgb (13.0-16.5) g/dl Hct (40-54) % MCV (80-94) fL MCH (27.0-32.0) pg MCHC (32-36) g/gl RDW (11.6-14.6) % RDW Differential (35.1-43.9) fl Plt Count (150-450) K/mm3 MPV (6.2-12.0) fl Immature Gran % (Auto) (0.0-0.9) % Neut % (Auto) (47-70) % Lymph % (Auto) (19-41) % [place] % (Auto) (0-10) % Eos % (Auto) (0-5) % Baso % (Auto) (0-1) % Absolute Neuts (auto) (2.0-7.7) X10^3/uL Absolute Lymphs (auto) (0.83-4.51) X10^3/ul Total Counted Neutrophils % (Manual) (47-70) % Band Neutrophils % (0-5) % Lymphocytes % (Manual) (19-41) % Monocytes % (Manual) (0-10) % Eosinophils % (Manual) (0-5) % Metamyelocytes % (0-1) % Myelocytes % (0-0) Promyelocytes % (0-0) Blast Cells % (0-0) % Nucleated RBC % (0-5) % Nucleated RBCs/100 WBC (0-5) % Differential Comment Diff Path Review Platelet Estimate (ADEQ) Immature Plt Fraction (1.0-7.9) % Plt Morphology Comment RBC Morphology Polychromasia Hypochromasia Anisocytosis Microcytosis Spherocytes Ovalocytes Schistocytes Retic Count (0.5-1.5) % Absolute Retic (0-5) 10^3/uL Immature Retic Fraction (3.00-15.90) % Retic Hgb Equivalent (30-35) pg Haptoglobin (34-200) mg/dL PT (11.7-14.9) SECONDS INR APTT (24.1-36.2) Seconds Fibrinogen (203-444) mg/dl D-Dimer Quant (PE/DVT) Specimen Type Sample Site pH (7.35-7.45) Bicarbonate Actual (22-26) mmol/L POC Total CO2 mmol/L Base Excess (-2 to +2) mmol/L O2 Saturation (95-99) % O2 % ABG pCO2 (35-45) mmHg ABG pO2 (75-100) mmHG Sage Test Respiration Rate O2 Delivery Device Liter Flow /min Minute Volume Vent Mode Tidal Volume POC PEEP Blood Gas Notified Whom Blood Gas Notified Time Sodium (136-145) mmol/L Potassium (3.5-5.1) mmol/L Chloride (98-107) mmol/L Carbon Dioxide (21.0-32.0) mmol/L Anion Gap (5-15) BUN (7-18) mg/dL Creatinine (0.70-1.30) mg/dL Estim Creat Clear Calc ml/min Est GFR (MDRD) Af Amer (>60) mL/min Est GFR (MDRD) Non-Af (>60) mL/min BUN/Creatinine Ratio (10-20) RATIO Glucose (74-106) mg/dL Hemoglobin A1c (4.2-6.3) % Lactic Acid (0.4-2.0) mmol/L Calcium (8.5-10.1) mg/dL Phosphorus (2.5-4.9) mg/dL Magnesium (1.6-2.6) mg/dL Iron (65-175) ug/dL TIBC (250-450) ug/dL Iron Saturation (15.0-55.0) % Total Bilirubin (0.20-1.00) mg/dL Direct Bilirubin (0.00-0.30) mg/dL AST (15-37) U/L ALT (16-61) U/L Alkaline Phosphatase (45-117) U/L Lactate Dehydrogenase (87-241) U/L Total Creatine Kinase (39-308) U/L Troponin I 0.099 H 0.104 H (<0.045) ng/mL B-Natriuretic Peptide (0-100) pg/mL Total Protein (6.4-8.2) g/dL Albumin (3.2-5.0) g/dL Globulin (2.2-4.2) g/dL Albumin/Globulin Ratio (0.9-2.4) RATIO Triglycerides ( - 199) mg/dL Vitamin B12 (211-911) pg/mL Folate (3.1-55.4) ng/mL Urine Color (Yellow) Urine Clarity (Clear) Urine pH (5.0 - 8.0) Ur Specific [place] (1.002-1.030) Urine Protein (Negative) mg/dl Urine Glucose (UA) (Normal) mg/dl Urine Ketones (Negative) mg/dl Urine Occult Blood (Negative) /ul Urine Nitrite (Negative) Urine Bilirubin (Negative) mg/dL Urine Urobilinogen (Normal) mg/dl Ur Leukocyte Esterase (Negative) /ul Urine RBC (0-5) /hpf Urine WBC (0-5) /hpf Ur Squamous Epith Cells (0-5) /hpf Urine Bacteria (None Seen) /hpf Urine Mucus (<or=2+) /hpf Vancomycin Trough (5.0-15.0) ug/mL Random Vancomycin (0.0-15.0) ug/mL Heparin-induced Plt Ab (0.000-0.400) OD H. pylori IgG Antibody (0.00-0.79) MRSA (PCR) (Negative) POC Glucose 240 H (70-110) mg/dL Blood Type Antibody Screen Crossmatch 06/02/18 06/02/18 06/02/18 Range/Units 23:38 22:48 22:40 WBC (4.4-11.0) K/mm3 Corrected WBC (4.4-11.0) K/mm3 RBC (4.6-6.2) M/mm3 Hgb (13.0-16.5) g/dl Hct (40-54) % MCV (80-94) fL MCH (27.0-32.0) pg MCHC (32-36) g/gl RDW (11.6-14.6) % RDW Differential (35.1-43.9) fl Plt Count (150-450) K/mm3 MPV (6.2-12.0) fl Immature Gran % (Auto) (0.0-0.9) % Neut % (Auto) (47-70) % Lymph % (Auto) (19-41) % [place] % (Auto) (0-10) % Eos % (Auto) (0-5) % Baso % (Auto) (0-1) % Absolute Neuts (auto) (2.0-7.7) X10^3/uL Absolute Lymphs (auto) (0.83-4.51) X10^3/ul Total Counted Neutrophils % (Manual) (47-70) % Band Neutrophils % (0-5) % Lymphocytes % (Manual) (19-41) % Monocytes % (Manual) (0-10) % Eosinophils % (Manual) (0-5) % Metamyelocytes % (0-1) % Myelocytes % (0-0) Promyelocytes % (0-0) Blast Cells % (0-0) % Nucleated RBC % (0-5) % Nucleated RBCs/100 WBC (0-5) % Differential Comment Diff Path Review Platelet Estimate (ADEQ) Immature Plt Fraction (1.0-7.9) % Plt Morphology Comment RBC Morphology Polychromasia Hypochromasia Anisocytosis Microcytosis Spherocytes Ovalocytes Schistocytes Retic Count (0.5-1.5) % Absolute Retic (0-5) 10^3/uL Immature Retic Fraction (3.00-15.90) % Retic Hgb Equivalent (30-35) pg Haptoglobin (34-200) mg/dL PT (11.7-14.9) SECONDS INR APTT (24.1-36.2) Seconds Fibrinogen (203-444) mg/dl D-Dimer Quant (PE/DVT) Specimen Type ART Sample Site R Radial pH 7.44 (7.35-7.45) Bicarbonate Actual 21.0 L (22-26) mmol/L POC Total CO2 22 mmol/L Base Excess -3 L (-2 to +2) mmol/L O2 Saturation 100 H (95-99) % O2 % 50 ABG pCO2 30.9 L (35-45) mmHg ABG pO2 170 H (75-100) mmHG Sage Test POS Respiration Rate 14 O2 Delivery Device Vent Liter Flow /min Minute Volume 8.00 Vent Mode A-C Tidal Volume 450 POC PEEP 5 Blood Gas Notified Whom HOSP Blood Gas Notified Time 2328 Sodium (136-145) mmol/L Potassium (3.5-5.1) mmol/L Chloride (98-107) mmol/L Carbon Dioxide (21.0-32.0) mmol/L Anion Gap (5-15) BUN (7-18) mg/dL Creatinine (0.70-1.30) mg/dL Estim Creat Clear Calc ml/min Est GFR (MDRD) Af Amer (>60) mL/min Est GFR (MDRD) Non-Af (>60) mL/min BUN/Creatinine Ratio (10-20) RATIO Glucose (74-106) mg/dL Hemoglobin A1c (4.2-6.3) % Lactic Acid (0.4-2.0) mmol/L Calcium (8.5-10.1) mg/dL Phosphorus (2.5-4.9) mg/dL Magnesium (1.6-2.6) mg/dL Iron (65-175) ug/dL TIBC (250-450) ug/dL Iron Saturation (15.0-55.0) % Total Bilirubin (0.20-1.00) mg/dL Direct Bilirubin (0.00-0.30) mg/dL AST (15-37) U/L ALT (16-61) U/L Alkaline Phosphatase (45-117) U/L Lactate Dehydrogenase (87-241) U/L Total Creatine Kinase 349 H (39-308) U/L Troponin I (<0.045) ng/mL B-Natriuretic Peptide (0-100) pg/mL Total Protein (6.4-8.2) g/dL Albumin (3.2-5.0) g/dL Globulin (2.2-4.2) g/dL Albumin/Globulin Ratio (0.9-2.4) RATIO Triglycerides 189 ( - 199) mg/dL Vitamin B12 (211-911) pg/mL Folate (3.1-55.4) ng/mL Urine Color (Yellow) Urine Clarity (Clear) Urine pH (5.0 - 8.0) Ur Specific [place] (1.002-1.030) Urine Protein (Negative) mg/dl Urine Glucose (UA) (Normal) mg/dl Urine Ketones (Negative) mg/dl Urine Occult Blood (Negative) /ul Urine Nitrite (Negative) Urine Bilirubin (Negative) mg/dL Urine Urobilinogen (Normal) mg/dl Ur Leukocyte Esterase (Negative) /ul Urine RBC (0-5) /hpf Urine WBC (0-5) /hpf Ur Squamous Epith Cells (0-5) /hpf Urine Bacteria (None Seen) /hpf Urine Mucus (<or=2+) /hpf Vancomycin Trough (5.0-15.0) ug/mL Random Vancomycin (0.0-15.0) ug/mL Heparin-induced Plt Ab (0.000-0.400) OD H. pylori IgG Antibody (0.00-0.79) MRSA (PCR) (Negative) POC Glucose 207 H (70-110) mg/dL Blood Type Antibody Screen Crossmatch 06/02/18 06/02/18 06/02/18 Range/Units 17:28 13:00 11:38 WBC (4.4-11.0) K/mm3 Corrected WBC (4.4-11.0) K/mm3 RBC (4.6-6.2) M/mm3 Hgb (13.0-16.5) g/dl Hct (40-54) % MCV (80-94) fL MCH (27.0-32.0) pg MCHC (32-36) g/gl RDW (11.6-14.6) % RDW Differential (35.1-43.9) fl Plt Count (150-450) K/mm3 MPV (6.2-12.0) fl Immature Gran % (Auto) (0.0-0.9) % Neut % (Auto) (47-70) % Lymph % (Auto) (19-41) % [place] % (Auto) (0-10) % Eos % (Auto) (0-5) % Baso % (Auto) (0-1) % Absolute Neuts (auto) (2.0-7.7) X10^3/uL Absolute Lymphs (auto) (0.83-4.51) X10^3/ul Total Counted Neutrophils % (Manual) (47-70) % Band Neutrophils % (0-5) % Lymphocytes % (Manual) (19-41) % Monocytes % (Manual) (0-10) % Eosinophils % (Manual) (0-5) % Metamyelocytes % (0-1) % Myelocytes % (0-0) Promyelocytes % (0-0) Blast Cells % (0-0) % Nucleated RBC % (0-5) % Nucleated RBCs/100 WBC (0-5) % Differential Comment Diff Path Review Platelet Estimate (ADEQ) Immature Plt Fraction (1.0-7.9) % Plt Morphology Comment RBC Morphology Polychromasia Hypochromasia Anisocytosis Microcytosis Spherocytes Ovalocytes Schistocytes Retic Count (0.5-1.5) % Absolute Retic (0-5) 10^3/uL Immature Retic Fraction (3.00-15.90) % Retic Hgb Equivalent (30-35) pg Haptoglobin (34-200) mg/dL PT (11.7-14.9) SECONDS INR APTT (24.1-36.2) Seconds Fibrinogen (203-444) mg/dl D-Dimer Quant (PE/DVT) > 20.00 H* Specimen Type Sample Site pH (7.35-7.45) Bicarbonate Actual (22-26) mmol/L POC Total CO2 mmol/L Base Excess (-2 to +2) mmol/L O2 Saturation (95-99) % O2 % ABG pCO2 (35-45) mmHg ABG pO2 (75-100) mmHG Sage Test Respiration Rate O2 Delivery Device Liter Flow /min Minute Volume Vent Mode Tidal Volume POC PEEP Blood Gas Notified Whom Blood Gas Notified Time Sodium (136-145) mmol/L Potassium (3.5-5.1) mmol/L Chloride (98-107) mmol/L Carbon Dioxide (21.0-32.0) mmol/L Anion Gap (5-15) BUN (7-18) mg/dL Creatinine (0.70-1.30) mg/dL Estim Creat Clear Calc ml/min Est GFR (MDRD) Af Amer (>60) mL/min Est GFR (MDRD) Non-Af (>60) mL/min BUN/Creatinine Ratio (10-20) RATIO Glucose (74-106) mg/dL Hemoglobin A1c (4.2-6.3) % Lactic Acid (0.4-2.0) mmol/L Calcium (8.5-10.1) mg/dL Phosphorus (2.5-4.9) mg/dL Magnesium (1.6-2.6) mg/dL Iron (65-175) ug/dL TIBC (250-450) ug/dL Iron Saturation (15.0-55.0) % Total Bilirubin (0.20-1.00) mg/dL Direct Bilirubin (0.00-0.30) mg/dL AST (15-37) U/L ALT (16-61) U/L Alkaline Phosphatase (45-117) U/L Lactate Dehydrogenase (87-241) U/L Total Creatine Kinase (39-308) U/L Troponin I (<0.045) ng/mL B-Natriuretic Peptide (0-100) pg/mL Total Protein (6.4-8.2) g/dL Albumin (3.2-5.0) g/dL Globulin (2.2-4.2) g/dL Albumin/Globulin Ratio (0.9-2.4) RATIO Triglycerides ( - 199) mg/dL Vitamin B12 (211-911) pg/mL Folate (3.1-55.4) ng/mL Urine Color (Yellow) Urine Clarity (Clear) Urine pH (5.0 - 8.0) Ur Specific [place] (1.002-1.030) Urine Protein (Negative) mg/dl Urine Glucose (UA) (Normal) mg/dl Urine Ketones (Negative) mg/dl Urine Occult Blood (Negative) /ul Urine Nitrite (Negative) Urine Bilirubin (Negative) mg/dL Urine Urobilinogen (Normal) mg/dl Ur Leukocyte Esterase (Negative) /ul Urine RBC (0-5) /hpf Urine WBC (0-5) /hpf Ur Squamous Epith Cells (0-5) /hpf Urine Bacteria (None Seen) /hpf Urine Mucus (<or=2+) /hpf Vancomycin Trough (5.0-15.0) ug/mL Random Vancomycin (0.0-15.0) ug/mL Heparin-induced Plt Ab (0.000-0.400) OD H. pylori IgG Antibody (0.00-0.79) MRSA (PCR) (Negative) POC Glucose 242 H 221 H (70-110) mg/dL Blood Type Antibody Screen Crossmatch 06/02/18 06/02/18 06/02/18 Range/Units 11:10 11:10 11:10 WBC (4.4-11.0) K/mm3 Corrected WBC (4.4-11.0) K/mm3 RBC (4.6-6.2) M/mm3 Hgb (13.0-16.5) g/dl Hct (40-54) % MCV (80-94) fL MCH (27.0-32.0) pg MCHC (32-36) g/gl RDW (11.6-14.6) % RDW Differential (35.1-43.9) fl Plt Count (150-450) K/mm3 MPV (6.2-12.0) fl Immature Gran % (Auto) (0.0-0.9) % Neut % (Auto) (47-70) % Lymph % (Auto) (19-41) % [place] % (Auto) (0-10) % Eos % (Auto) (0-5) % Baso % (Auto) (0-1) % Absolute Neuts (auto) (2.0-7.7) X10^3/uL Absolute Lymphs (auto) (0.83-4.51) X10^3/ul Total Counted Neutrophils % (Manual) (47-70) % Band Neutrophils % (0-5) % Lymphocytes % (Manual) (19-41) % Monocytes % (Manual) (0-10) % Eosinophils % (Manual) (0-5) % Metamyelocytes % (0-1) % Myelocytes % (0-0) Promyelocytes % (0-0) Blast Cells % (0-0) % Nucleated RBC % (0-5) % Nucleated RBCs/100 WBC (0-5) % Differential Comment Diff Path Review Platelet Estimate (ADEQ) Immature Plt Fraction (1.0-7.9) % Plt Morphology Comment RBC Morphology Polychromasia Hypochromasia Anisocytosis Microcytosis Spherocytes Ovalocytes Schistocytes Retic Count (0.5-1.5) % Absolute Retic (0-5) 10^3/uL Immature Retic Fraction (3.00-15.90) % Retic Hgb Equivalent (30-35) pg Haptoglobin (34-200) mg/dL PT 23.5 H (11.7-14.9) SECONDS INR 2.1 APTT (24.1-36.2) Seconds Fibrinogen (203-444) mg/dl D-Dimer Quant (PE/DVT) Cancelled Specimen Type Sample Site pH (7.35-7.45) Bicarbonate Actual (22-26) mmol/L POC Total CO2 mmol/L Base Excess (-2 to +2) mmol/L O2 Saturation (95-99) % O2 % ABG pCO2 (35-45) mmHg ABG pO2 (75-100) mmHG Sage Test Respiration Rate O2 Delivery Device Liter Flow /min Minute Volume Vent Mode Tidal Volume POC PEEP Blood Gas Notified Whom Blood Gas Notified Time Sodium 144 (136-145) mmol/L Potassium 4.1 (3.5-5.1) mmol/L Chloride 111 H (98-107) mmol/L Carbon Dioxide 20.0 L (21.0-32.0) mmol/L Anion Gap 13 (5-15) BUN 70 H (7-18) mg/dL Creatinine 1.86 H (0.70-1.30) mg/dL Estim Creat Clear Calc 29.54 ml/min Est GFR (MDRD) Af Amer 45 L (>60) mL/min Est GFR (MDRD) Non-Af 38 L (>60) mL/min BUN/Creatinine Ratio 37.6 H (10-20) RATIO Glucose 231 H (74-106) mg/dL Hemoglobin A1c (4.2-6.3) % Lactic Acid (0.4-2.0) mmol/L Calcium 8.3 L (8.5-10.1) mg/dL Phosphorus (2.5-4.9) mg/dL Magnesium (1.6-2.6) mg/dL Iron (65-175) ug/dL TIBC (250-450) ug/dL Iron Saturation (15.0-55.0) % Total Bilirubin 0.20 (0.20-1.00) mg/dL Direct Bilirubin (0.00-0.30) mg/dL AST 156 H (15-37) U/L ALT 28 (16-61) U/L Alkaline Phosphatase 155 H (45-117) U/L Lactate Dehydrogenase (87-241) U/L Total Creatine Kinase 386 H (39-308) U/L Troponin I (<0.045) ng/mL B-Natriuretic Peptide (0-100) pg/mL Total Protein 5.4 L (6.4-8.2) g/dL Albumin 1.9 L (3.2-5.0) g/dL Globulin 3.5 (2.2-4.2) g/dL Albumin/Globulin Ratio 0.5 L (0.9-2.4) RATIO Triglycerides ( - 199) mg/dL Vitamin B12 (211-911) pg/mL Folate (3.1-55.4) ng/mL Urine Color (Yellow) Urine Clarity (Clear) Urine pH (5.0 - 8.0) Ur Specific [place] (1.002-1.030) Urine Protein (Negative) mg/dl Urine Glucose (UA) (Normal) mg/dl Urine Ketones (Negative) mg/dl Urine Occult Blood (Negative) /ul Urine Nitrite (Negative) Urine Bilirubin (Negative) mg/dL Urine Urobilinogen (Normal) mg/dl Ur Leukocyte Esterase (Negative) /ul Urine RBC (0-5) /hpf Urine WBC (0-5) /hpf Ur Squamous Epith Cells (0-5) /hpf Urine Bacteria (None Seen) /hpf Urine Mucus (<or=2+) /hpf Vancomycin Trough (5.0-15.0) ug/mL Random Vancomycin (0.0-15.0) ug/mL Heparin-induced Plt Ab (0.000-0.400) OD H. pylori IgG Antibody (0.00-0.79) MRSA (PCR) (Negative) POC Glucose (70-110) mg/dL Blood Type Antibody Screen Crossmatch [id number] 06/02/18 Range/Units 11:10 07:00 07:00 WBC 8.8 8.7 (4.4-11.0) K/mm3 Corrected WBC (4.4-11.0) K/mm3 RBC 2.69 L 2.75 L (4.6-6.2) M/mm3 Hgb 7.9 L 8.1 L (13.0-16.5) g/dl Hct 25.0 L 25.8 L (40-54) % MCV 92.9 93.8 (80-94) fL MCH 29.4 29.5 (27.0-32.0) pg MCHC 31.6 L 31.4 L (32-36) g/gl RDW 15.0 H 14.9 H (11.6-14.6) % RDW Differential 51.0 H 50.9 H (35.1-43.9) fl Plt Count 93 L 102 L (150-450) K/mm3 MPV 10.7 10.8 (6.2-12.0) fl Immature Gran % (Auto) 1.400 H 1.300 H (0.0-0.9) % Neut % (Auto) 66.4 69.4 (47-70) % Lymph % (Auto) 21.6 18.0 L (19-41) % [place] % (Auto) 10.3 H 11.1 H (0-10) % Eos % (Auto) 0.1 0.1 (0-5) % Baso % (Auto) 0.2 0.1 (0-1) % Absolute Neuts (auto) 5.9 6.0 (2.0-7.7) X10^3/uL Absolute Lymphs (auto) 1.90 1.57 (0.83-4.51) X10^3/ul Total Counted Not Reportable Not Reportable Neutrophils % (Manual) (47-70) % Band Neutrophils % (0-5) % Lymphocytes % (Manual) (19-41) % Monocytes % (Manual) (0-10) % Eosinophils % (Manual) (0-5) % Metamyelocytes % (0-1) % Myelocytes % (0-0) Promyelocytes % (0-0) Blast Cells % (0-0) % Nucleated RBC % 1.6 (0-5) % Nucleated RBCs/100 WBC (0-5) % Differential Comment Diff Path Review Reviewed Platelet Estimate MOD DEC (ADEQ) Immature Plt Fraction (1.0-7.9) % Plt Morphology Comment RBC Morphology Polychromasia RARE Hypochromasia Anisocytosis Microcytosis Spherocytes Ovalocytes Schistocytes Retic Count (0.5-1.5) % Absolute Retic 0.15 (0-5) 10^3/uL Immature Retic Fraction (3.00-15.90) % Retic Hgb Equivalent (30-35) pg Haptoglobin (34-200) mg/dL PT (11.7-14.9) SECONDS INR APTT (24.1-36.2) Seconds Fibrinogen (203-444) mg/dl D-Dimer Quant (PE/DVT) Specimen Type Sample Site pH (7.35-7.45) Bicarbonate Actual (22-26) mmol/L POC Total CO2 mmol/L Base Excess (-2 to +2) mmol/L O2 Saturation (95-99) % O2 % ABG pCO2 (35-45) mmHg ABG pO2 (75-100) mmHG Sage Test Respiration Rate O2 Delivery Device Liter Flow /min Minute Volume Vent Mode Tidal Volume POC PEEP Blood Gas Notified Whom Blood Gas Notified Time Sodium 141 (136-145) mmol/L Potassium 4.0 (3.5-5.1) mmol/L Chloride 111 H (98-107) mmol/L Carbon Dioxide 21.0 (21.0-32.0) mmol/L Anion Gap 9 (5-15) BUN 68 H (7-18) mg/dL Creatinine 1.75 H (0.70-1.30) mg/dL Estim Creat Clear Calc 31.39 ml/min Est GFR (MDRD) Af Amer 49 L (>60) mL/min Est GFR (MDRD) Non-Af 40 L (>60) mL/min BUN/Creatinine Ratio 38.9 H (10-20) RATIO Glucose 224 H (74-106) mg/dL Hemoglobin A1c (4.2-6.3) % Lactic Acid (0.4-2.0) mmol/L Calcium 8.2 L (8.5-10.1) mg/dL Phosphorus (2.5-4.9) mg/dL Magnesium (1.6-2.6) mg/dL Iron (65-175) ug/dL TIBC (250-450) ug/dL Iron Saturation (15.0-55.0) % Total Bilirubin (0.20-1.00) mg/dL Direct Bilirubin (0.00-0.30) mg/dL AST (15-37) U/L ALT (16-61) U/L Alkaline Phosphatase (45-117) U/L Lactate Dehydrogenase (87-241) U/L Total Creatine Kinase (39-308) U/L Troponin I (<0.045) ng/mL B-Natriuretic Peptide (0-100) pg/mL Total Protein (6.4-8.2) g/dL Albumin (3.2-5.0) g/dL Globulin (2.2-4.2) g/dL Albumin/Globulin Ratio (0.9-2.4) RATIO Triglycerides ( - 199) mg/dL Vitamin B12 (211-911) pg/mL Folate (3.1-55.4) ng/mL Urine Color (Yellow) Urine Clarity (Clear) Urine pH (5.0 - 8.0) Ur Specific [place] (1.002-1.030) Urine Protein (Negative) mg/dl Urine Glucose (UA) (Normal) mg/dl Urine Ketones (Negative) mg/dl Urine Occult Blood (Negative) /ul Urine Nitrite (Negative) Urine Bilirubin (Negative) mg/dL Urine Urobilinogen (Normal) mg/dl Ur Leukocyte Esterase (Negative) /ul Urine RBC (0-5) /hpf Urine WBC (0-5) /hpf Ur Squamous Epith Cells (0-5) /hpf Urine Bacteria (None Seen) /hpf Urine Mucus (<or=2+) /hpf Vancomycin Trough (5.0-15.0) ug/mL Random Vancomycin (0.0-15.0) ug/mL Heparin-induced Plt Ab (0.000-0.400) OD H. pylori IgG Antibody (0.00-0.79) MRSA (PCR) (Negative) POC Glucose (70-110) mg/dL Blood Type Antibody Screen Crossmatch 06/02/18 06/02/18 06/02/18 Range/Units 07:00 06:49 05:57 WBC (4.4-11.0) K/mm3 Corrected WBC (4.4-11.0) K/mm3 RBC (4.6-6.2) M/mm3 Hgb (13.0-16.5) g/dl Hct (40-54) % MCV (80-94) fL MCH (27.0-32.0) pg MCHC (32-36) g/gl RDW (11.6-14.6) % RDW Differential (35.1-43.9) fl Plt Count (150-450) K/mm3 MPV (6.2-12.0) fl Immature Gran % (Auto) (0.0-0.9) % Neut % (Auto) (47-70) % Lymph % (Auto) (19-41) % [place] % (Auto) (0-10) % Eos % (Auto) (0-5) % Baso % (Auto) (0-1) % Absolute Neuts (auto) (2.0-7.7) X10^3/uL Absolute Lymphs (auto) (0.83-4.51) X10^3/ul Total Counted Neutrophils % (Manual) (47-70) % Band Neutrophils % (0-5) % Lymphocytes % (Manual) (19-41) % Monocytes % (Manual) (0-10) % Eosinophils % (Manual) (0-5) % Metamyelocytes % (0-1) % Myelocytes % (0-0) Promyelocytes % (0-0) Blast Cells % (0-0) % Nucleated RBC % (0-5) % Nucleated RBCs/100 WBC (0-5) % Differential Comment Diff Path Review Platelet Estimate (ADEQ) Immature Plt Fraction (1.0-7.9) % Plt Morphology Comment RBC Morphology Polychromasia Hypochromasia Anisocytosis Microcytosis Spherocytes Ovalocytes Schistocytes Retic Count (0.5-1.5) % Absolute Retic (0-5) 10^3/uL Immature Retic Fraction (3.00-15.90) % Retic Hgb Equivalent (30-35) pg Haptoglobin (34-200) mg/dL PT (11.7-14.9) SECONDS INR APTT (24.1-36.2) Seconds Fibrinogen (203-444) mg/dl D-Dimer Quant (PE/DVT) Specimen Type ART Sample Site L Radial pH 7.41 (7.35-7.45) Bicarbonate Actual 21.9 L (22-26) mmol/L POC Total CO2 23 mmol/L Base Excess -3 L (-2 to +2) mmol/L O2 Saturation 93 L (95-99) % O2 % ABG pCO2 34.3 L (35-45) mmHg ABG pO2 66 L (75-100) mmHG Sage Test Respiration Rate O2 Delivery Device Nasal Can Liter Flow 4.0 /min Minute Volume Vent Mode Tidal Volume POC PEEP Blood Gas Notified Whom [facility] Blood Gas Notified Time 555 Sodium (136-145) mmol/L Potassium (3.5-5.1) mmol/L Chloride (98-107) mmol/L Carbon Dioxide (21.0-32.0) mmol/L Anion Gap (5-15) BUN (7-18) mg/dL Creatinine (0.70-1.30) mg/dL Estim Creat Clear Calc ml/min Est GFR (MDRD) Af Amer (>60) mL/min Est GFR (MDRD) Non-Af (>60) mL/min BUN/Creatinine Ratio (10-20) RATIO Glucose (74-106) mg/dL Hemoglobin A1c (4.2-6.3) % Lactic Acid (0.4-2.0) mmol/L Calcium (8.5-10.1) mg/dL Phosphorus (2.5-4.9) mg/dL Magnesium (1.6-2.6) mg/dL Iron (65-175) ug/dL TIBC (250-450) ug/dL Iron Saturation (15.0-55.0) % Total Bilirubin (0.20-1.00) mg/dL Direct Bilirubin (0.00-0.30) mg/dL AST (15-37) U/L ALT (16-61) U/L Alkaline Phosphatase (45-117) U/L Lactate Dehydrogenase (87-241) U/L Total Creatine Kinase (39-308) U/L Troponin I 0.073 H (<0.045) ng/mL B-Natriuretic Peptide (0-100) pg/mL Total Protein (6.4-8.2) g/dL Albumin (3.2-5.0) g/dL Globulin (2.2-4.2) g/dL Albumin/Globulin Ratio (0.9-2.4) RATIO Triglycerides ( - 199) mg/dL Vitamin B12 (211-911) pg/mL Folate (3.1-55.4) ng/mL Urine Color (Yellow) Urine Clarity (Clear) Urine pH (5.0 - 8.0) Ur Specific [place] (1.002-1.030) Urine Protein (Negative) mg/dl Urine Glucose (UA) (Normal) mg/dl Urine Ketones (Negative) mg/dl Urine Occult Blood (Negative) /ul Urine Nitrite (Negative) Urine Bilirubin (Negative) mg/dL Urine Urobilinogen (Normal) mg/dl Ur Leukocyte Esterase (Negative) /ul Urine RBC (0-5) /hpf Urine WBC (0-5) /hpf Ur Squamous Epith Cells (0-5) /hpf Urine Bacteria (None Seen) /hpf Urine Mucus (<or=2+) /hpf Vancomycin Trough (5.0-15.0) ug/mL Random Vancomycin (0.0-15.0) ug/mL Heparin-induced Plt Ab (0.000-0.400) OD H. pylori IgG Antibody (0.00-0.79) MRSA (PCR) (Negative) POC Glucose 214 H (70-110) mg/dL Blood Type Antibody Screen Crossmatch 06/02/18 06/02/18 06/02/18 Range/Units 04:48 01:55 01:40 WBC (4.4-11.0) K/mm3 Corrected WBC (4.4-11.0) K/mm3 RBC (4.6-6.2) M/mm3 Hgb (13.0-16.5) g/dl Hct (40-54) % MCV (80-94) fL MCH (27.0-32.0) pg MCHC (32-36) g/gl RDW (11.6-14.6) % RDW Differential (35.1-43.9) fl Plt Count (150-450) K/mm3 MPV (6.2-12.0) fl Immature Gran % (Auto) (0.0-0.9) % Neut % (Auto) (47-70) % Lymph % (Auto) (19-41) % [place] % (Auto) (0-10) % Eos % (Auto) (0-5) % Baso % (Auto) (0-1) % Absolute Neuts (auto) (2.0-7.7) X10^3/uL Absolute Lymphs (auto) (0.83-4.51) X10^3/ul Total Counted Neutrophils % (Manual) (47-70) % Band Neutrophils % (0-5) % Lymphocytes % (Manual) (19-41) % Monocytes % (Manual) (0-10) % Eosinophils % (Manual) (0-5) % Metamyelocytes % (0-1) % Myelocytes % (0-0) Promyelocytes % (0-0) Blast Cells % (0-0) % Nucleated RBC % (0-5) % Nucleated RBCs/100 WBC (0-5) % Differential Comment Diff Path Review Platelet Estimate (ADEQ) Immature Plt Fraction (1.0-7.9) % Plt Morphology Comment RBC Morphology Polychromasia Hypochromasia Anisocytosis Microcytosis Spherocytes Ovalocytes Schistocytes Retic Count (0.5-1.5) % Absolute Retic (0-5) 10^3/uL Immature Retic Fraction (3.00-15.90) % Retic Hgb Equivalent (30-35) pg Haptoglobin (34-200) mg/dL PT (11.7-14.9) SECONDS INR APTT (24.1-36.2) Seconds Fibrinogen (203-444) mg/dl D-Dimer Quant (PE/DVT) Specimen Type ART Sample Site R Radial pH 7.45 (7.35-7.45) Bicarbonate Actual 24.1 (22-26) mmol/L POC Total CO2 25 mmol/L Base Excess 0 (-2 to +2) mmol/L O2 Saturation 95 (95-99) % O2 % ABG pCO2 34.6 L (35-45) mmHg ABG pO2 70 L (75-100) mmHG Sage Test POS Respiration Rate O2 Delivery Device Nasal Can Liter Flow 2.0 /min Minute Volume Vent Mode Tidal Volume POC PEEP Blood Gas Notified Whom ED Blood Gas Notified Time Sodium (136-145) mmol/L Potassium (3.5-5.1) mmol/L Chloride (98-107) mmol/L Carbon Dioxide (21.0-32.0) mmol/L Anion Gap (5-15) BUN (7-18) mg/dL Creatinine (0.70-1.30) mg/dL Estim Creat Clear Calc ml/min Est GFR (MDRD) Af Amer (>60) mL/min Est GFR (MDRD) Non-Af (>60) mL/min BUN/Creatinine Ratio (10-20) RATIO Glucose (74-106) mg/dL Hemoglobin A1c (4.2-6.3) % Lactic Acid (0.4-2.0) mmol/L Calcium (8.5-10.1) mg/dL Phosphorus (2.5-4.9) mg/dL Magnesium (1.6-2.6) mg/dL Iron (65-175) ug/dL TIBC (250-450) ug/dL Iron Saturation (15.0-55.0) % Total Bilirubin (0.20-1.00) mg/dL Direct Bilirubin (0.00-0.30) mg/dL AST (15-37) U/L ALT (16-61) U/L Alkaline Phosphatase (45-117) U/L Lactate Dehydrogenase (87-241) U/L Total Creatine Kinase (39-308) U/L Troponin I 0.057 H (<0.045) ng/mL B-Natriuretic Peptide (0-100) pg/mL Total Protein (6.4-8.2) g/dL Albumin (3.2-5.0) g/dL Globulin (2.2-4.2) g/dL Albumin/Globulin Ratio (0.9-2.4) RATIO Triglycerides ( - 199) mg/dL Vitamin B12 (211-911) pg/mL Folate (3.1-55.4) ng/mL Urine Color Yellow (Yellow) Urine Clarity Sl. Cloudy (Clear) Urine pH 5.0 (5.0 - 8.0) Ur Specific [place] 1.020 (1.002-1.030) Urine Protein 30 H (Negative) mg/dl Urine Glucose (UA) Normal (Normal) mg/dl Urine Ketones 5 H (Negative) mg/dl Urine Occult Blood 50 H (Negative) /ul Urine Nitrite Negative (Negative) Urine Bilirubin Negative (Negative) mg/dL Urine Urobilinogen Normal (Normal) mg/dl Ur Leukocyte Esterase 500 H (Negative) /ul Urine RBC 0-5 SEEN (0-5) /hpf Urine WBC 10-25 SEEN (0-5) /hpf Ur Squamous Epith Cells 0-5 SEEN (0-5) /hpf Urine Bacteria 2+ (None Seen) /hpf Urine Mucus 0 SEEN (<or=2+) /hpf Vancomycin Trough (5.0-15.0) ug/mL Random Vancomycin (0.0-15.0) ug/mL Heparin-induced Plt Ab (0.000-0.400) OD H. pylori IgG Antibody (0.00-0.79) MRSA (PCR) (Negative) POC Glucose (70-110) mg/dL Blood Type Antibody Screen Crossmatch 06/02/18 06/02/18 06/02/18 Range/Units 01:10 01:10 01:10 WBC (4.4-11.0) K/mm3 Corrected WBC (4.4-11.0) K/mm3 RBC (4.6-6.2) M/mm3 Hgb (13.0-16.5) g/dl Hct (40-54) % MCV (80-94) fL MCH (27.0-32.0) pg MCHC (32-36) g/gl RDW (11.6-14.6) % RDW Differential (35.1-43.9) fl Plt Count (150-450) K/mm3 MPV (6.2-12.0) fl Immature Gran % (Auto) (0.0-0.9) % Neut % (Auto) (47-70) % Lymph % (Auto) (19-41) % [place] % (Auto) (0-10) % Eos % (Auto) (0-5) % Baso % (Auto) (0-1) % Absolute Neuts (auto) (2.0-7.7) X10^3/uL Absolute Lymphs (auto) (0.83-4.51) X10^3/ul Total Counted Neutrophils % (Manual) (47-70) % Band Neutrophils % (0-5) % Lymphocytes % (Manual) (19-41) % Monocytes % (Manual) (0-10) % Eosinophils % (Manual) (0-5) % Metamyelocytes % (0-1) % Myelocytes % (0-0) Promyelocytes % (0-0) Blast Cells % (0-0) % Nucleated RBC % (0-5) % Nucleated RBCs/100 WBC (0-5) % Differential Comment Diff Path Review Platelet Estimate (ADEQ) Immature Plt Fraction (1.0-7.9) % Plt Morphology Comment RBC Morphology Polychromasia Hypochromasia Anisocytosis Microcytosis Spherocytes Ovalocytes Schistocytes Retic Count (0.5-1.5) % Absolute Retic (0-5) 10^3/uL Immature Retic Fraction (3.00-15.90) % Retic Hgb Equivalent (30-35) pg Haptoglobin (34-200) mg/dL PT 26.0 H (11.7-14.9) SECONDS INR 2.4 APTT 39.2 H (24.1-36.2) Seconds Fibrinogen (203-444) mg/dl D-Dimer Quant (PE/DVT) Specimen Type Sample Site pH (7.35-7.45) Bicarbonate Actual (22-26) mmol/L POC Total CO2 mmol/L Base Excess (-2 to +2) mmol/L O2 Saturation (95-99) % O2 % ABG pCO2 (35-45) mmHg ABG pO2 (75-100) mmHG Sage Test Respiration Rate O2 Delivery Device Liter Flow /min Minute Volume Vent Mode Tidal Volume POC PEEP Blood Gas Notified Whom Blood Gas Notified Time Sodium 138 (136-145) mmol/L Potassium 4.2 (3.5-5.1) mmol/L Chloride 104 (98-107) mmol/L Carbon Dioxide 25.0 (21.0-32.0) mmol/L Anion Gap 9 (5-15) BUN 68 H (7-18) mg/dL Creatinine 1.97 H (0.70-1.30) mg/dL Estim Creat Clear Calc 27.89 ml/min Est GFR (MDRD) Af Amer 42 L (>60) mL/min Est GFR (MDRD) Non-Af 35 L (>60) mL/min BUN/Creatinine Ratio 34.5 H (10-20) RATIO Glucose 266 H (74-106) mg/dL Hemoglobin A1c (4.2-6.3) % Lactic Acid 1.7 (0.4-2.0) mmol/L Calcium 9.0 (8.5-10.1) mg/dL Phosphorus (2.5-4.9) mg/dL Magnesium (1.6-2.6) mg/dL Iron (65-175) ug/dL TIBC (250-450) ug/dL Iron Saturation (15.0-55.0) % Total Bilirubin 0.40 (0.20-1.00) mg/dL Direct Bilirubin (0.00-0.30) mg/dL AST 197 H (15-37) U/L ALT 32 (16-61) U/L Alkaline Phosphatase 187 H (45-117) U/L Lactate Dehydrogenase (87-241) U/L Total Creatine Kinase (39-308) U/L Troponin I 0.074 H (<0.045) ng/mL B-Natriuretic Peptide (0-100) pg/mL Total Protein 6.2 L (6.4-8.2) g/dL Albumin 2.3 L (3.2-5.0) g/dL Globulin 3.9 (2.2-4.2) g/dL Albumin/Globulin Ratio 0.6 L (0.9-2.4) RATIO Triglycerides ( - 199) mg/dL Vitamin B12 (211-911) pg/mL Folate (3.1-55.4) ng/mL Urine Color (Yellow) Urine Clarity (Clear) Urine pH (5.0 - 8.0) Ur Specific [place] (1.002-1.030) Urine Protein (Negative) mg/dl Urine Glucose (UA) (Normal) mg/dl Urine Ketones (Negative) mg/dl Urine Occult Blood (Negative) /ul Urine Nitrite (Negative) Urine Bilirubin (Negative) mg/dL Urine Urobilinogen (Normal) mg/dl Ur Leukocyte Esterase (Negative) /ul Urine RBC (0-5) /hpf Urine WBC (0-5) /hpf Ur Squamous Epith Cells (0-5) /hpf Urine Bacteria (None Seen) /hpf Urine Mucus (<or=2+) /hpf Vancomycin Trough (5.0-15.0) ug/mL Random Vancomycin (0.0-15.0) ug/mL Heparin-induced Plt Ab (0.000-0.400) OD H. pylori IgG Antibody (0.00-0.79) MRSA (PCR) (Negative) POC Glucose (70-110) mg/dL Blood Type Antibody Screen Crossmatch 06/02/18 06/02/18 Range/Units 01:10 01:00 WBC 9.1 (4.4-11.0) K/mm3 Corrected WBC (4.4-11.0) K/mm3 RBC 3.03 L (4.6-6.2) M/mm3 Hgb 9.2 L (13.0-16.5) g/dl Hct 28.3 L (40-54) % MCV 93.4 (80-94) fL MCH 30.4 (27.0-32.0) pg MCHC 32.5 (32-36) g/gl RDW 14.8 H (11.6-14.6) % RDW Differential 50.3 H (35.1-43.9) fl Plt Count 111 L (150-450) K/mm3 MPV 10.4 (6.2-12.0) fl Immature Gran % (Auto) 1.400 H (0.0-0.9) % Neut % (Auto) 70.5 H (47-70) % Lymph % (Auto) 17.4 L (19-41) % [place] % (Auto) 10.5 H (0-10) % Eos % (Auto) 0.0 (0-5) % Baso % (Auto) 0.2 (0-1) % Absolute Neuts (auto) 6.4 (2.0-7.7) X10^3/uL Absolute Lymphs (auto) 1.59 (0.83-4.51) X10^3/ul Total Counted Not Reportable Neutrophils % (Manual) (47-70) % Band Neutrophils % (0-5) % Lymphocytes % (Manual) (19-41) % Monocytes % (Manual) (0-10) % Eosinophils % (Manual) (0-5) % Metamyelocytes % (0-1) % Myelocytes % (0-0) Promyelocytes % (0-0) Blast Cells % (0-0) % Nucleated RBC % 1.9 (0-5) % Nucleated RBCs/100 WBC (0-5) % Differential Comment Diff Path Review Reviewed Platelet Estimate (ADEQ) Immature Plt Fraction (1.0-7.9) % Plt Morphology Comment RBC Morphology Polychromasia Hypochromasia Anisocytosis Microcytosis Spherocytes Ovalocytes Schistocytes Retic Count (0.5-1.5) % Absolute Retic 0.18 (0-5) 10^3/uL Immature Retic Fraction (3.00-15.90) % Retic Hgb Equivalent (30-35) pg Haptoglobin (34-200) mg/dL PT (11.7-14.9) SECONDS INR APTT (24.1-36.2) Seconds Fibrinogen (203-444) mg/dl D-Dimer Quant (PE/DVT) Specimen Type Sample Site pH (7.35-7.45) Bicarbonate Actual (22-26) mmol/L POC Total CO2 mmol/L Base Excess (-2 to +2) mmol/L O2 Saturation (95-99) % O2 % ABG pCO2 (35-45) mmHg ABG pO2 (75-100) mmHG Sage Test Respiration Rate O2 Delivery Device Liter Flow /min Minute Volume Vent Mode Tidal Volume POC PEEP Blood Gas Notified Whom Blood Gas Notified Time Sodium (136-145) mmol/L Potassium (3.5-5.1) mmol/L Chloride (98-107) mmol/L Carbon Dioxide (21.0-32.0) mmol/L Anion Gap (5-15) BUN (7-18) mg/dL Creatinine (0.70-1.30) mg/dL Estim Creat Clear Calc ml/min Est GFR (MDRD) Af Amer (>60) mL/min Est GFR (MDRD) Non-Af (>60) mL/min BUN/Creatinine Ratio (10-20) RATIO Glucose (74-106) mg/dL Hemoglobin A1c (4.2-6.3) % Lactic Acid (0.4-2.0) mmol/L Calcium (8.5-10.1) mg/dL Phosphorus (2.5-4.9) mg/dL Magnesium (1.6-2.6) mg/dL Iron (65-175) ug/dL TIBC (250-450) ug/dL Iron Saturation (15.0-55.0) % Total Bilirubin (0.20-1.00) mg/dL Direct Bilirubin (0.00-0.30) mg/dL AST (15-37) U/L ALT (16-61) U/L Alkaline Phosphatase (45-117) U/L Lactate Dehydrogenase (87-241) U/L Total Creatine Kinase 529 H (39-308) U/L Troponin I (<0.045) ng/mL B-Natriuretic Peptide (0-100) pg/mL Total Protein (6.4-8.2) g/dL Albumin (3.2-5.0) g/dL Globulin (2.2-4.2) g/dL Albumin/Globulin Ratio (0.9-2.4) RATIO Triglycerides ( - 199) mg/dL Vitamin B12 (211-911) pg/mL Folate (3.1-55.4) ng/mL Urine Color (Yellow) Urine Clarity (Clear) Urine pH (5.0 - 8.0) Ur Specific [place] (1.002-1.030) Urine Protein (Negative) mg/dl Urine Glucose (UA) (Normal) mg/dl Urine Ketones (Negative) mg/dl Urine Occult Blood (Negative) /ul Urine Nitrite (Negative) Urine Bilirubin (Negative) mg/dL Urine Urobilinogen (Normal) mg/dl Ur Leukocyte Esterase (Negative) /ul Urine RBC (0-5) /hpf Urine WBC (0-5) /hpf Ur Squamous Epith Cells (0-5) /hpf Urine Bacteria (None Seen) /hpf Urine Mucus (<or=2+) /hpf Vancomycin Trough (5.0-15.0) ug/mL Random Vancomycin (0.0-15.0) ug/mL Heparin-induced Plt Ab (0.000-0.400) OD H. pylori IgG Antibody (0.00-0.79) MRSA (PCR) (Negative) POC Glucose (70-110) mg/dL Blood Type Antibody Screen Crossmatch Microbiology 06/10/18 14:54 Urine, Nephrostomy Urine Culture - Final Culture exhibits no growth. 06/06/18 11:50 Blood Culture (Wb) - Anticubital Left Blood Culture - Final No growth in 5 days. 06/06/18 12:00 Blood Culture (Wb) - Right Wrist Blood Culture - Final No growth in 5 days. 06/06/18 11:00 Urine, Nephrostomy Urine Culture - Final Culture exhibits no growth. 06/03/18 14:55 Blood Culture (Wb) - Left Wrist Blood Culture - Final No growth in 5 days. 06/03/18 15:05 Blood Culture (Wb) - Anticubital Right Blood Culture - Final No growth in 5 days. 06/02/18 01:24 Blood Culture (Wb) - Anticubital Left Blood Culture - Final No growth in 5 days. 06/02/18 01:10 Blood Culture (Wb) - Right Forearm Blood Culture - Final No growth in 5 days. 06/03/18 15:20 Urine Catheter - [place] Urine Culture - Final Enterococcus faecalis 06/02/18 22:30 Sputum, Expectorated/Coughed Gram Stain - Final 06/02/18 22:30 Sputum, Expectorated/Coughed Respiratory Culture - Final Mixed normal respiratory betty. No Streptococcus pneumoniae, beta-hemolytic Streptococcus or Staphylococcus aureus isolated. 06/02/18 01:55 Urine, Clean Catch Urine Culture - Final GPC Poss Enterococcus sp 06/02/18 22:30 Mucosa - Nose Respiratory Panel (PCR) - Final 06/02/18 02:15 Mucosa - Nose Influenza Types A,B Direct FA (CHELE) - Final Consultations 06/12/18 11:35 Consult: Onc/Wound/guest experience captain Routine Comment: Operations: TURP Summary of Care Provided: The patient is a 77 year old M [] - Physical Exam Vital Signs Temp Pulse Resp BP Pulse Ox 98.4 F 0 L 22 H 100/33 L 92 06/13/18 14:00 06/13/18 14:45 06/13/18 14:00 06/13/18 14:00 06/13/18 14:00 Oxygen Flow Rate (L/min) [5] 15 Oxygen Flow Rate (L/min) [4] 15 Oxygen Flow Rate (L/min) [3] 15 Oxygen Flow Rate (L/min) [2] 15 Oxygen Flow Rate (L/min) [1 ( 15 Initial Baseline)] Oxygen Flow Rate (L/min) 4 Oxygen Delivery Method [5] Ambu-Bag Oxygen Delivery Method [4] Ambu-Bag Oxygen Delivery Method [3] Ambu-Bag Oxygen Delivery Method [2] Room Air Oxygen Delivery Method [1 ( Ambu-Bag Initial Baseline)] Oxygen Delivery Method Nasal Cannula Weight: 199 lb 8.293 oz Body Mass Index (BMI) 27.1 Finger Stick Blood Glucose 202 Intake and Output for Last 24 Hours 06/11/18 06/12/18 06/13/18 23:59 23:59 23:59 Intake Total 5005.8 / 5005.8 4287 / 4287 2316 / 2316 Output Total 1550 / 1550 1125 / 1125 875 / 875 Balance 3455.8 / 3455.8 3162 / 3162 1441 / 1441 Microbiology Past 72 Hours 06/10/18 14:54 Urine Culture - Final Urine, Nephrostomy Culture exhibits no growth. 06/06/18 11:50 Blood Culture - Final Blood Culture (Wb) - Anticubital Left No growth in 5 days. 06/06/18 12:00 Blood Culture - Final Blood Culture (Wb) - Right Wrist No growth in 5 days. Laboratory Tests Past 24 Hrs 06/13/18 06/13/18 05:40 05:40 WBC 8.5 RBC 2.86 L Hgb 8.4 L Hct 27.0 L MCV 94.4 H MCH 29.4 MCHC 31.1 L RDW 18.4 H RDW Differential 55.8 H Plt Count 13 L* Immature Gran % (Auto) 1.100 H Neut % (Auto) 73.4 H Lymph % (Auto) 20.2 [place] % (Auto) 4.1 Eos % (Auto) 0.5 Baso % (Auto) 0.7 Absolute Neuts (auto) 6.2 Absolute Lymphs (auto) 1.71 Total Counted Not Reportable Nucleated RBC % 2.9 Differential Comment SCAN Diff Path Review May foll Platelet Estimate MKD DEC Polychromasia 1+ Hypochromasia 1+ Anisocytosis 1+ Microcytosis 1+ Absolute Retic 0.25 Sodium 152 H Potassium 4.1 Chloride 127 H* Carbon Dioxide 18.0 L Anion Gap 7 BUN 51 H Creatinine 1.21 Estim Creat Clear Calc 45.40 Est GFR (MDRD) Af Amer 75 Est GFR (MDRD) Non-Af 62 BUN/Creatinine Ratio 42.1 H Glucose 208 H Calcium 8.2 L POC Glucose 06/13/18 06/13/18 06/13/18 12:08 06:41 00:12 POC Glucose 187 H 186 H 176 H Home Medications: Medications to take at Discharge ALPRAZolam [Xanax] 0.5 mg PO 4X/DAY PRN 10/24/15 Ascorbic Acid [Vitamin C] 1,000 mg PO DAILY 10/24/15 Fosinopril Sodium [Monopril] 5 mg PO DAILY 10/24/15 Garlic 1 mg PO DAILY 10/24/15 Metformin HCl [Glucophage] 1,000 mg PO DAILY 10/24/15 Multivitamin [Daily Multiple Vitamin] 1 ea PO DAILY 10/24/15 [place]-3 Fatty Acids/Fish Oil [[place] 3 1,000 mg Softgel] 1,000 mg PO DAILY 10/24/15 Vitamin B Complex 1 ea PO DAILY 10/24/15 Vitamin E 1,000 unit PO DAILY 10/24/15 Cyanocobalamin (Vitamin B-12) [Vitamin B-12] 5,000 mcg SL BID 09/18/17 Methylsulfonylmethane [MSM] 1,500 mg PO BID 09/18/17 Niacinamide 500 mg PO DAILY 09/18/17 Pyridoxine HCl [Vitamin B6] 100 mg PO BID 09/18/17 Sodium Chloride 1 gm PO DAILY 09/18/17 Ubidecarenone [Co Q-10] 200 mg PO DAILY 09/18/17 Vanadyl Sulfate 10 mg PO DAILY 09/18/17 furosemide 40 mg tablet 40 mg PO QDAY #90 tab 09/25/17 simvastatin 40 mg tablet 20 mg PO QHS 09/25/17 Cholecalciferol (VIT D3) [Vitamin D3] 1,000 unit PO DAILY 10/29/17 Ferrous Sulfate [Iron] 325 mg PO DAILY 10/29/17 Apixaban [Eliquis] 5 mg PO BID 03/14/18 Duloxetine Hcl [Cymbalta] 30 mg pe PO DAILY 03/14/18 Acetaminophen [Tylenol Extra Strength] 500 mg PO Q4H PRN PRN #20 tablet 03/19/18 Lisinopril [Zestril] mg PO DAILY 03/19/18 Metoprolol Tartrate [Lopressor (beta lisa)] 50 mg PO BID 06/02/18 Primary Care Physician: Amber Hyatt [Primary Care Provider] - Medical Necessity - Tobacco Use Smoking Status: Former smoker
--- NOTE | 2018-06-13 19:38 | PCM.DC.SUM ---
Discharge Date and Diagnosis Date of Admission: 06/02/18 Date of Discharge: 06/13/18 - Primary Discharge Diagnosis Acute hypoxic respiratory failure requiring intubation Septic shock wearing pressors secondary to Enterococcus faecalis urinary tract infection with pyelonephritis DIC Upper GI bleed secondary to peptic ulcer disease Atrial fibrillation with rapid ventricular response Acute renal failure on chronic renal failure stage III Severe anemia secondary to upper GI bleed Hypokalemia Hypophosphatemia Hypernatremia Moderate malnutrition Elevated troponin secondary to demand ischemia related to atrial fibrillation with rapid ventricular response Bilateral hydronephrosis Bilateral nephrostomy tubes Metabolic acidosis secondary to acute renal failure - Secondary Discharge Diagnosis Chronic Problems (Last Reviewed 06/05/18 @ 07:40 by Dangelo Alvarado MD) Prostate cancer metastatic to bone (Chronic) Stage III chronic kidney disease (Chronic) Dyslipidemia (Chronic) Paroxysmal atrial fibrillation (Chronic) History of aortic valve replacement with bioprosthetic valve (Chronic ~11/12/16) Trifecta GT Tissue Heart Valve Serial # 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 Individualized dose optimization techniques were used for this CT. at 0159 Reported and signed by: Geoff Joaquin MD Electronically Signed: Geoff Joaquin, at 1:58 EST Tel , Service support , Cervical Spine CT 06/02/18 01:25 IMPRESSION: No fracture or dislocation of the cervical spine. Individualized dose optimization techniques were used for this CT. at 0206 Reported and signed by: Geoff Joaquin MD Electronically Signed: Geoff Joaquin, at 2:05 EST Tel , Service support , Chest X-Ray 06/02/18 01:35 IMPRESSION: Low lung volumes with resultant hypoventilatory changes. No definite pneumonia or edema. Interval sternotomy probably for heart valve replacement. at 0154 Reported and signed by: Geoff Joaquin MD Electronically Signed: Geoff Joaquin, at 1:53 EST Tel , Service support , Lung Scan-VQ NM 06/02/18 13:55 IMPRESSION: Low quality VQ scan, most consistent with low probability of pulmonary embolism. Electronically Signed: Kenny Greene MD at 16:31 EST , Service support , Chest X-Ray 06/02/18 14:28 IMPRESSION: Moderate right pleural effusion with overlying atelectasis. Electronically Signed: Juan Ruiz, at 15:40 EST Tel , Service support , Chest CT 06/02/18 21:14 IMPRESSION: Small bilateral pleural effusions with overlying atelectasis. Sclerotic osseous lesions which are suspicious for metastasis. Electronically Signed: Juan Ruiz, at 22:14 EST Tel , Service support , Chest X-Ray 06/02/18 22:26 IMPRESSION: Mild left basilar atelectasis status post endotracheal tube placement Electronically Signed: Norbert Snyder MD at 23:18 EST , Service support , Abdomen CT 06/04/18 12:33 IMPRESSION: Bilateral hydronephrosis right greater than left with bilateral hydroureter. Diffusely thickened bladder wall. Electronically Signed: Javier Unger, at 15:28 EST , Service support , Nephrostomy Tube Change 06/05/18 07:41 IMPRESSION: 1. The percutaneous right nephrostomy catheter is in good position with the pigtail portion located in the right renal pelvis. 2. The conscious sedation protocol was followed. Electronically Signed: Javier Cornel, at 14:33 EST , Service support , Nephrostomy Tube Change 06/09/18 08:39 IMPRESSION: 1. The percutaneous left nephrostomy catheter is in good position with the pigtail portion located in the left renal pelvis. Electronically Signed: Javier Cornel, at 8:16 EDT , Service support , Chest X-Ray 06/11/18 08:40 IMPRESSION: The support tubes are in good position. Findings suggest small bilateral pleural effusions with bibasilar atelectasis. Electronically Signed: Javier Cornel, at 13:01 EDT , Service support , Laboratory Results - last 24 hr 06/13/18 06/13/18 06/13/18 00:12 05:40 05:40 WBC 8.5 RBC 2.86 L Hgb 8.4 L Hct 27.0 L MCV 94.4 H MCH 29.4 MCHC 31.1 L RDW 18.4 H RDW Differential 55.8 H Plt Count 13 L* Immature Gran % (Auto) 1.100 H Neut % (Auto) 73.4 H Lymph % (Auto) 20.2 [place] % (Auto) 4.1 Eos % (Auto) 0.5 Baso % (Auto) 0.7 Absolute Neuts (auto) 6.2 Absolute Lymphs (auto) 1.71 Total Counted Not Reportable Nucleated RBC % 2.9 Differential Comment SCAN Diff Path Review May foll Platelet Estimate MKD DEC Polychromasia 1+ Hypochromasia 1+ Anisocytosis 1+ Microcytosis 1+ Absolute Retic 0.25 Sodium 152 H Potassium 4.1 Chloride 127 H* Carbon Dioxide 18.0 L Anion Gap 7 BUN 51 H Creatinine 1.21 Estim Creat Clear Calc 45.40 Est GFR (MDRD) Af Amer 75 Est GFR (MDRD) Non-Af 62 BUN/Creatinine Ratio 42.1 H Glucose 208 H Calcium 8.2 L POC Glucose 176 H 06/13/18 06/13/18 06:41 12:08 WBC RBC Hgb Hct MCV MCH MCHC RDW RDW Differential Plt Count Immature Gran % (Auto) Neut % (Auto) Lymph % (Auto) [place] % (Auto) Eos % (Auto) Baso % (Auto) Absolute Neuts (auto) Absolute Lymphs (auto) Total Counted Nucleated RBC % Differential Comment Diff Path Review Platelet Estimate Polychromasia Hypochromasia Anisocytosis Microcytosis Absolute Retic Sodium Potassium Chloride Carbon Dioxide Anion Gap BUN Creatinine Estim Creat Clear Calc Est GFR (MDRD) Af Amer Est GFR (MDRD) Non-Af BUN/Creatinine Ratio Glucose Calcium POC Glucose 186 H 187 H Microbiology 06/10/18 14:54 Urine, Nephrostomy Urine Culture - Final Culture exhibits no growth. 06/06/18 11:50 Blood Culture (Wb) - Anticubital Left Blood Culture - Final No growth in 5 days. 06/06/18 12:00 Blood Culture (Wb) - Right Wrist Blood Culture - Final No growth in 5 days. 06/06/18 11:00 Urine, Nephrostomy Urine Culture - Final Culture exhibits no growth. 06/03/18 14:55 Blood Culture (Wb) - Left Wrist Blood Culture - Final No growth in 5 days. 06/03/18 15:05 Blood Culture (Wb) - Anticubital Right Blood Culture - Final No growth in 5 days. 06/02/18 01:24 Blood Culture (Wb) - Anticubital Left Blood Culture - Final No growth in 5 days. 06/02/18 01:10 Blood Culture (Wb) - Right Forearm Blood Culture - Final No growth in 5 days. 06/03/18 15:20 Urine Catheter - [place] Urine Culture - Final Enterococcus faecalis 06/02/18 22:30 Sputum, Expectorated/Coughed Gram Stain - Final 06/02/18 22:30 Sputum, Expectorated/Coughed Respiratory Culture - Final Mixed normal respiratory betty. No Streptococcus pneumoniae, beta-hemolytic Streptococcus or Staphylococcus aureus isolated. 06/02/18 01:55 Urine, Clean Catch Urine Culture - Final GPC Poss Enterococcus sp 06/02/18 22:30 Mucosa - Nose Respiratory Panel (PCR) - Final 06/02/18 02:15 Mucosa - Nose Influenza Types A,B Direct FA (CHELE) - Final Consultations 06/12/18 11:35 Consult: Onc/Wound/building construction foreman Routine Comment: Procedures: 2-D Echocardiogram, Intubation, - - Right nephrostomy tube on 06/05/2018 and left nephrostomy tube on 06/09/2018 Summary of Care Provided: The patient is a 77-year-old male with a past medical history of prostate cancer metastatic to bone, history of aortic valve replacement with bioprosthetic valve, chronic kidney disease stage III, hypertension and prostatic hypertrophy with urinary tract infection who initially presented to the emergency department on 06/02/2018 with complaints of altered mental status. He was diagnosed with sepsis secondary to acute cystitis severe dehydration, mild rhabdomyolysis and indeterminate troponin. He was started on ceftriaxone and blood and urine cultures were ordered. He was admitted to a monitored bed on PCU and started on antibiotics. He had SOB and was on oxygen and BIPAP intermittently. D-Dimer was >20. Chest x-ray at admission showed no infiltrates, pleural effusions or pulmonary vascular congestion. A VQ scan had low probability for PE. Late in the evening on June 02 the patient was noted to be hypotensive and in atrial fibrillation with a rapid ventricular response. He had felipe respiratory distress in conjunction with the A. fib. A stat CT chest without contrast showed small bilateral pleural effusions and no focal infiltrates. With his permission he was intubated and the antibiotic was changed from Rocephin to Zosyn and Vancomycin. Radiology was consulted for A. fib with RVR and the patient was started on an amiodarone infusion following a bolus of amiodarone. Consultation was ordered with infectious disease. Platelet count dropped precipitously and hematology was consulted. He was diagnosed with DIC and had several platelet transfusions and also RBC's and FFP. Platelets continued to drop and on 06/12 his son Emeterio expressed that since his father was not getting better and things continued to deteriorate that we should not give any additional blood products. Mr. Cancino continued to have fevers and a Left nephrostomy tube was placed and when he continued to be febrile a right nephrostomy tube was placed. He continued to decline and was started on pressors. Multiple attempts were made with SBT's to extubate and the pt was unable to be extubated due to increased RR and HR. On 06/13 Dr. Nicholson and I once again met with Mr. Cancino's son Emeterio and discussed his multiple diagnoses, prognosis and plans for treatment going forward. Emeterio was able to decide to extubate and the pt at 14:45 on 06/13/18. His son Emeterio was at the bedside. This note was generated with [employer] dictation software. It may contain incorrect words, spelling, and punctuation that were not noted in checking the note before signing. - Physical Exam Vital Signs Temp Pulse Resp BP Pulse Ox 98.4 F 0 L 22 H 100/33 L 92 06/13/18 14:00 06/13/18 14:45 06/13/18 14:00 06/13/18 14:00 06/13/18 14:00 Oxygen Flow Rate (L/min) [5] 15 Oxygen Flow Rate (L/min) [4] 15 Oxygen Flow Rate (L/min) [3] 15 Oxygen Flow Rate (L/min) [2] 15 Oxygen Flow Rate (L/min) [1 ( 15 Initial Baseline)] Oxygen Flow Rate (L/min) 4 Oxygen Delivery Method [5] Ambu-Bag Oxygen Delivery Method [4] Ambu-Bag Oxygen Delivery Method [3] Ambu-Bag Oxygen Delivery Method [2] Room Air Oxygen Delivery Method [1 ( Ambu-Bag Initial Baseline)] Oxygen Delivery Method Nasal Cannula Weight: 199 lb 8.293 oz Body Mass Index (BMI) 27.1 Finger Stick Blood Glucose 202 Intake and Output for Last 24 Hours 06/11/18 06/12/18 06/13/18 23:59 23:59 23:59 Intake Total 5005.8 / 5005.8 4287 / 4287 2316 / 2316 Output Total 1550 / 1550 1125 / 1125 875 / 875 Balance 3455.8 / 3455.8 3162 / 3162 1441 / 1441 Microbiology Past 72 Hours 06/10/18 14:54 Urine Culture - Final Urine, Nephrostomy Culture exhibits no growth. 06/06/18 11:50 Blood Culture - Final Blood Culture (Wb) - Anticubital Left No growth in 5 days. 06/06/18 12:00 Blood Culture - Final Blood Culture (Wb) - Right Wrist No growth in 5 days. Laboratory Tests Past 24 Hrs 06/13/18 06/13/18 05:40 05:40 WBC 8.5 RBC 2.86 L Hgb 8.4 L Hct 27.0 L MCV 94.4 H MCH 29.4 MCHC 31.1 L RDW 18.4 H RDW Differential 55.8 H Plt Count 13 L* Immature Gran % (Auto) 1.100 H Neut % (Auto) 73.4 H Lymph % (Auto) 20.2 [place] % (Auto) 4.1 Eos % (Auto) 0.5 Baso % (Auto) 0.7 Absolute Neuts (auto) 6.2 Absolute Lymphs (auto) 1.71 Total Counted Not Reportable Nucleated RBC % 2.9 Differential Comment SCAN Diff Path Review May foll Platelet Estimate MKD DEC Polychromasia 1+ Hypochromasia 1+ Anisocytosis 1+ Microcytosis 1+ Absolute Retic 0.25 Sodium 152 H Potassium 4.1 Chloride 127 H* Carbon Dioxide 18.0 L Anion Gap 7 BUN 51 H Creatinine 1.21 Estim Creat Clear Calc 45.40 Est GFR (MDRD) Af Amer 75 Est GFR (MDRD) Non-Af 62 BUN/Creatinine Ratio 42.1 H Glucose 208 H Calcium 8.2 L POC Glucose 06/13/18 06/13/18 06/13/18 12:08 06:41 00:12 POC Glucose 187 H 186 H 176 H Home Medications: Medications to take at Discharge ALPRAZolam [Xanax] 0.5 mg PO 4X/DAY PRN 10/24/15 Ascorbic Acid [Vitamin C] 1,000 mg PO DAILY 10/24/15 Fosinopril Sodium [Monopril] 5 mg PO DAILY 10/24/15 Garlic 1 mg PO DAILY 10/24/15 Metformin HCl [Glucophage] 1,000 mg PO DAILY 10/24/15 Multivitamin [Daily Multiple Vitamin] 1 ea PO DAILY 10/24/15 [place]-3 Fatty Acids/Fish Oil [[place] 3 1,000 mg Softgel] 1,000 mg PO DAILY 10/24/15 Vitamin B Complex 1 ea PO DAILY 10/24/15 Vitamin E 1,000 unit PO DAILY 10/24/15 Cyanocobalamin (Vitamin B-12) [Vitamin B-12] 5,000 mcg SL BID 09/18/17 Methylsulfonylmethane [MSM] 1,500 mg PO BID 09/18/17 Niacinamide 500 mg PO DAILY 09/18/17 Pyridoxine HCl [Vitamin B6] 100 mg PO BID 09/18/17 Sodium Chloride 1 gm PO DAILY 09/18/17 Ubidecarenone [Co Q-10] 200 mg PO DAILY 09/18/17 Vanadyl Sulfate 10 mg PO DAILY 09/18/17 furosemide 40 mg tablet 40 mg PO QDAY #90 tab 09/25/17 simvastatin 40 mg tablet 20 mg PO QHS 09/25/17 Cholecalciferol (VIT D3) [Vitamin D3] 1,000 unit PO DAILY 10/29/17 Ferrous Sulfate [Iron] 325 mg PO DAILY 10/29/17 Apixaban [Eliquis] 5 mg PO BID 03/14/18 Duloxetine Hcl [Cymbalta] 30 mg pe PO DAILY 03/14/18 Acetaminophen [Tylenol Extra Strength] 500 mg PO Q4H PRN PRN #20 tablet 03/19/18 Lisinopril [Zestril] mg PO DAILY 03/19/18 Metoprolol Tartrate [Lopressor (beta lisa)] 50 mg PO BID 06/02/18 Primary Care Physician: Amber Hyatt [Primary Care Provider] - Disposition: Minutes spent on discharge:: 35 Medical Necessity - Tobacco Use Smoking Status: Former smoker Tobacco Use: Non-smoker Meaningful Use Info Meaningful Use Diagnoses (Choose all that apply): None applicable Code Visit Inpatient E&M: 71164 Disch Hosp
--- NOTE | 2018-06-13 19:43 | DS.PCM_ITS ---
Discharge Date and Diagnosis Date of Admission: 06/02/18 Date of Discharge: 06/13/18 - Primary Discharge Diagnosis Acute hypoxic respiratory failure requiring intubation Septic shock wearing pressors secondary to Enterococcus faecalis urinary tract infection with pyelonephritis DIC Upper GI bleed secondary to peptic ulcer disease Atrial fibrillation with rapid ventricular response Acute renal failure on chronic renal failure stage III Severe anemia secondary to upper GI bleed Hypokalemia Hypophosphatemia Hypernatremia Moderate malnutrition Elevated troponin secondary to demand ischemia related to atrial fibrillation with rapid ventricular response Bilateral hydronephrosis Bilateral nephrostomy tubes Metabolic acidosis secondary to acute renal failure - Secondary Discharge Diagnosis Chronic Problems (Last Reviewed 06/05/18 @ 07:40 by Dangelo Alvarado MD) Prostate cancer metastatic to bone (Chronic) Stage III chronic kidney disease (Chronic) Dyslipidemia (Chronic) Paroxysmal atrial fibrillation (Chronic) History of aortic valve replacement with bioprosthetic valve (Chronic ~11/12/16) Trifecta GT Tissue Heart Valve Serial # 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 Individualized dose optimization techniques were used for this CT. at 0159 Reported and signed by: Geoff Joaquin MD Electronically Signed: Geoff Joaquin, at 1:58 EST Tel , Service support , Cervical Spine CT 06/02/18 01:25 IMPRESSION: No fracture or dislocation of the cervical spine. Individualized dose optimization techniques were used for this CT. at 0206 Reported and signed by: Geoff Joaquin MD Electronically Signed: Geoff Joaquin, at 2:05 EST Tel , Service support , Chest X-Ray 06/02/18 01:35 IMPRESSION: Low lung volumes with resultant hypoventilatory changes. No definite pneumonia or edema. Interval sternotomy probably for heart valve replacement. at 0154 Reported and signed by: Geoff Joaquin MD Electronically Signed: Geoff Joaquin, at 1:53 EST Tel , Service support , Lung Scan-VQ NM 06/02/18 13:55 IMPRESSION: Low quality VQ scan, most consistent with low probability of pulmonary embolism. Electronically Signed: Kenny Greene MD at 16:31 EST , Service support , Chest X-Ray 06/02/18 14:28 IMPRESSION: Moderate right pleural effusion with overlying atelectasis. Electronically Signed: Juan Ruiz, at 15:40 EST Tel , Service support , Chest CT 06/02/18 21:14 IMPRESSION: Small bilateral pleural effusions with overlying atelectasis. Sclerotic osseous lesions which are suspicious for metastasis. Electronically Signed: Juan Ruiz, at 22:14 EST Tel , Service support , Chest X-Ray 06/02/18 22:26 IMPRESSION: Mild left basilar atelectasis status post endotracheal tube placement Electronically Signed: Norbert Snyder MD at 23:18 EST , Service support , Abdomen CT 06/04/18 12:33 IMPRESSION: Bilateral hydronephrosis right greater than left with bilateral hydroureter. Diffusely thickened bladder wall. Electronically Signed: Javier Unger, at 15:28 EST , Service support , Nephrostomy Tube Change 06/05/18 07:41 IMPRESSION: 1. The percutaneous right nephrostomy catheter is in good position with the pigtail portion located in the right renal pelvis. 2. The conscious sedation protocol was followed. Electronically Signed: Javier Cornel, at 14:33 EST , Service support , Nephrostomy Tube Change 06/09/18 08:39 IMPRESSION: 1. The percutaneous left nephrostomy catheter is in good position with the pigtail portion located in the left renal pelvis. Electronically Signed: Javier Cornel, at 8:16 EDT , Service support , Chest X-Ray 06/11/18 08:40 IMPRESSION: The support tubes are in good position. Findings suggest small bilateral pleural effusions with bibasilar atelectasis. Electronically Signed: Javier Cornel, at 13:01 EDT , Service support , Laboratory Results - last 24 hr 06/13/18 06/13/18 06/13/18 00:12 05:40 05:40 WBC 8.5 RBC 2.86 L Hgb 8.4 L Hct 27.0 L MCV 94.4 H MCH 29.4 MCHC 31.1 L RDW 18.4 H RDW Differential 55.8 H Plt Count 13 L* Immature Gran % (Auto) 1.100 H Neut % (Auto) 73.4 H Lymph % (Auto) 20.2 Addison % (Auto) 4.1 Eos % (Auto) 0.5 Baso % (Auto) 0.7 Absolute Neuts (auto) 6.2 Absolute Lymphs (auto) 1.71 Total Counted Not Reportable Nucleated RBC % 2.9 Differential Comment SCAN Diff Path Review May foll Platelet Estimate MKD DEC Polychromasia 1+ Hypochromasia 1+ Anisocytosis 1+ Microcytosis 1+ Absolute Retic 0.25 Sodium 152 H Potassium 4.1 Chloride 127 H* Carbon Dioxide 18.0 L Anion Gap 7 BUN 51 H Creatinine 1.21 Estim Creat Clear Calc 45.40 Est GFR (MDRD) Af Amer 75 Est GFR (MDRD) Non-Af 62 BUN/Creatinine Ratio 42.1 H Glucose 208 H Calcium 8.2 L POC Glucose 176 H 06/13/18 06/13/18 06:41 12:08 WBC RBC Hgb Hct MCV MCH MCHC RDW RDW Differential Plt Count Immature Gran % (Auto) Neut % (Auto) Lymph % (Auto) Addison % (Auto) Eos % (Auto) Baso % (Auto) Absolute Neuts (auto) Absolute Lymphs (auto) Total Counted Nucleated RBC % Differential Comment Diff Path Review Platelet Estimate Polychromasia Hypochromasia Anisocytosis Microcytosis Absolute Retic Sodium Potassium Chloride Carbon Dioxide Anion Gap BUN Creatinine Estim Creat Clear Calc Est GFR (MDRD) Af Amer Est GFR (MDRD) Non-Af BUN/Creatinine Ratio Glucose Calcium POC Glucose 186 H 187 H Microbiology 06/10/18 14:54 Urine, Nephrostomy Urine Culture - Final Culture exhibits no growth. 06/06/18 11:50 Blood Culture (Wb) - Anticubital Left Blood Culture - Final No growth in 5 days. 06/06/18 12:00 Blood Culture (Wb) - Right Wrist Blood Culture - Final No growth in 5 days. 06/06/18 11:00 Urine, Nephrostomy Urine Culture - Final Culture exhibits no growth. 06/03/18 14:55 Blood Culture (Wb) - Left Wrist Blood Culture - Final No growth in 5 days. 06/03/18 15:05 Blood Culture (Wb) - Anticubital Right Blood Culture - Final No growth in 5 days. 06/02/18 01:24 Blood Culture (Wb) - Anticubital Left Blood Culture - Final No growth in 5 days. 06/02/18 01:10 Blood Culture (Wb) - Right Forearm Blood Culture - Final No growth in 5 days. 06/03/18 15:20 Urine Catheter - [place] Urine Culture - Final Enterococcus faecalis 06/02/18 22:30 Sputum, Expectorated/Coughed Gram Stain - Final 06/02/18 22:30 Sputum, Expectorated/Coughed Respiratory Culture - Final Mixed normal respiratory betty. No Streptococcus pneumoniae, beta-hemolytic Streptococcus or Staphylococcus aureus isolated. 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 He was diagnosed with sepsis secondary to acute cystitis severe dehydration, mild rhabdomyolysis and indeterminate troponin. He was started on ceftriaxone and blood and urine cultures were ordered. He was admitted to a monitored bed on PCU and started on antibiotics. He had SOB and was on oxygen and BIPAP intermittently. D-Dimer was >20. Chest x-ray at admission showed no infiltrates, pleural effusions or pulmonary vascular congestion. A VQ scan had low probability for PE. Late in the evening on June 02 the patient was noted to be hypotensive and in atrial fibrillation with a rapid ventricular response. He had felipe respiratory distress in conjunction with the A. fib. A stat CT chest without contrast showed small bilateral pleural effusions and no focal infiltrates. With his permission he was intubated and the antibiotic was changed from Rocephin to Zosyn and Vancomycin. Radiology was consulted for A. fib with RVR and the patient was started on an amiodarone infusion following a bolus of amiodarone. Consultation was ordered with infectious disease. Platelet count dropped precipitously and hematology was consulted. He was diagnosed with DIC and had several platelet transfusions and also RBC's and FFP. Platelets continued to drop and on 06/12 his son Emeterio expressed that since his father was not getting better and things continued to deteriorate that we should not give any additional blood products. Mr. Cancino continued to have fevers and a Left nephrostomy tube was placed and when he continued to be febrile a right nephrostomy tube was placed. He continued to decline and was started on pressors. Multiple attempts were made with SBT's to extubate and the pt was unable to be extubated due to increased RR and HR. On 06/13 Dr. Nicholson and I once again met with Mr. Cancino's son Emeterio and discussed his multiple diagnoses, prognosis and plans for treatment going forward. Emeterio was able to decide to extubate and the pt at 14:45 on 06/13/18. His son Emeterio was at the bedside. This note was generated with [employer] dictation software. It may contain incorrect words, spelling, and punctuation that were not noted in checking the note before signing. - Physical Exam Vital Signs Temp Pulse Resp BP Pulse Ox 98.4 F 0 L 22 H 100/33 L 92 06/13/18 14:00 06/13/18 14:45 06/13/18 14:00 06/13/18 14:00 06/13/18 14:00 Oxygen Flow Rate (L/min) [5] 15 Oxygen Flow Rate (L/min) [4] 15 Oxygen Flow Rate (L/min) [3] 15 Oxygen Flow Rate (L/min) [2] 15 Oxygen Flow Rate (L/min) [1 ( 15 Initial Baseline)] Oxygen Flow Rate (L/min) 4 Oxygen Delivery Method [5] Ambu-Bag Oxygen Delivery Method [4] Ambu-Bag Oxygen Delivery Method [3] Ambu-Bag Oxygen Delivery Method [2] Room Air Oxygen Delivery Method [1 ( Ambu-Bag Initial Baseline)] Oxygen Delivery Method Nasal Cannula Weight: 199 lb 8.293 oz Body Mass Index (BMI) 27.1 Finger Stick Blood Glucose 202 Intake and Output for Last 24 Hours 06/11/18 06/12/18 06/13/18 23:59 23:59 23:59 Intake Total 5005.8 / 5005.8 4287 / 4287 2316 / 2316 Output Total 1550 / 1550 1125 / 1125 875 / 875 Balance 3455.8 / 3455.8 3162 / 3162 1441 / 1441 Microbiology Past 72 Hours 06/10/18 14:54 Urine Culture - Final Urine, Nephrostomy Culture exhibits no growth. 06/06/18 11:50 Blood Culture - Final Blood Culture (Wb) - Anticubital Left No growth in 5 days. 06/06/18 12:00 Blood Culture - Final Blood Culture (Wb) - Right Wrist No growth in 5 days. Laboratory Tests Past 24 Hrs 06/13/18 06/13/18 05:40 05:40 WBC 8.5 RBC 2.86 L Hgb 8.4 L Hct 27.0 L MCV 94.4 H MCH 29.4 MCHC 31.1 L RDW 18.4 H RDW Differential 55.8 H Plt Count 13 L* Immature Gran % (Auto) 1.100 H Neut % (Auto) 73.4 H Lymph % (Auto) 20.2 Addison % (Auto) 4.1 Eos % (Auto) 0.5 Baso % (Auto) 0.7 Absolute Neuts (auto) 6.2 Absolute Lymphs (auto) 1.71 Total Counted Not Reportable Nucleated RBC % 2.9 Differential Comment SCAN Diff Path Review May foll Platelet Estimate MKD DEC Polychromasia 1+ Hypochromasia 1+ Anisocytosis 1+ Microcytosis 1+ Absolute Retic 0.25 Sodium 152 H Potassium 4.1 Chloride 127 H* Carbon Dioxide 18.0 L Anion Gap 7 BUN 51 H Creatinine 1.21 Estim Creat Clear Calc 45.40 Est GFR (MDRD) Af Amer 75 Est GFR (MDRD) Non-Af 62 BUN/Creatinine Ratio 42.1 H Glucose 208 H Calcium 8.2 L POC Glucose 06/13/18 06/13/18 06/13/18 12:08 06:41 00:12 POC Glucose 187 H 186 H 176 H Home Medications: Medications to take at Discharge ALPRAZolam [Xanax] 0.5 mg PO 4X/DAY PRN 10/24/15 Ascorbic Acid [Vitamin C] 1,000 mg PO DAILY 10/24/15 Fosinopril Sodium [Monopril] 5 mg PO DAILY 10/24/15 Garlic 1 mg PO DAILY 10/24/15 Metformin HCl [Glucophage] 1,000 mg PO DAILY 10/24/15 Multivitamin [Daily Multiple Vitamin] 1 ea PO DAILY 10/24/15 [place]-3 Fatty Acids/Fish Oil [[place] 3 1,000 mg Softgel] 1,000 mg PO DAILY 10/24/15 Vitamin B Complex 1 ea PO DAILY 10/24/15 Vitamin E 1,000 unit PO DAILY 10/24/15 Cyanocobalamin (Vitamin B-12) [Vitamin B-12] 5,000 mcg SL BID 09/18/17 Methylsulfonylmethane [MSM] 1,500 mg PO BID 09/18/17 Niacinamide 500 mg PO DAILY 09/18/17 Pyridoxine HCl [Vitamin B6] 100 mg PO BID 09/18/17 Sodium Chloride 1 gm PO DAILY 09/18/17 Ubidecarenone [Co Q-10] 200 mg PO DAILY 09/18/17 Vanadyl Sulfate 10 mg PO DAILY 09/18/17 furosemide 40 mg tablet 40 mg PO QDAY #90 tab 09/25/17 simvastatin 40 mg tablet 20 mg PO QHS 09/25/17 Cholecalciferol (VIT D3) [Vitamin D3] 1,000 unit PO DAILY 10/29/17 Ferrous Sulfate [Iron] 325 mg PO DAILY 10/29/17 Apixaban [Eliquis] 5 mg PO BID 03/14/18 Duloxetine Hcl [Cymbalta] 30 mg pe PO DAILY 03/14/18 Acetaminophen [Tylenol Extra Strength] 500 mg PO Q4H PRN PRN #20 tablet 03/19/18 Lisinopril [Zestril] mg PO DAILY 03/19/18 Metoprolol Tartrate [Lopressor (beta lisa)] 50 mg PO BID 06/02/18 Primary Care Physician: Amber Hyatt [Primary Care Provider] - Disposition: Minutes spent on discharge:: 35 Medical Necessity - Tobacco Use Smoking Status: Former smoker Tobacco Use: Non-smoker Meaningful Use Info Meaningful Use Diagnoses (Choose all that apply): None applicable Code Visit Inpatient E&M: 23349 Disch Hosp
[2018-06-16 09:13] LABS: Pathologist Review Reviewed
== END 2018-06-13 17:05 | DRG 870 ==
LOC: ED 01:25 → PCU 03:24 → ICU 21:43
PROVIDERS: Hospitalist; Internal Medicine; Internal Medicine Critical Care Medicine; Internal Medicine Infectious Disease; Radiology Diagnostic Radiology; Student in an Organized Health Care Education/Training Program; Surgery; Admitting Provider Hospitalist; Emergency Provider Emergency Medicine; Family Provider Internal Medicine; PCP Internal Medicine; Referring Provider Hospitalist; Visit Provider Internal Medicine
PROC: 0DJ08ZZ Inspection of Upper Intestinal Tract, Via Natural or Artificial Opening Endoscopic (ICD-10-PCS; CPT 43235; principal; 2018-06-05 09:55)
DX: A41.81 Sepsis due to Enterococcus (principal); R65.21 Severe sepsis with septic shock; D65 Disseminated intravascular coagulation [defibrination syndrome]; J96.01 Acute respiratory failure with hypoxia; G93.41 Metabolic encephalopathy; K25.4 Chronic or unspecified gastric ulcer with hemorrhage; K26.4 Chronic or unspecified duodenal ulcer with hemorrhage; N12 Tubulo-interstitial nephritis, not specified as acute or chronic; N17.9 Acute kidney failure, unspecified; C79.51 Secondary malignant neoplasm of bone; E44.0 Moderate protein-calorie malnutrition; E87.0 Hyperosmolality and hypernatremia; I24.8 Other forms of acute ischemic heart disease; M62.82 Rhabdomyolysis; N30.00 Acute cystitis without hematuria; N13.30 Unspecified hydronephrosis; C61 Malignant neoplasm of prostate; E78.5 Hyperlipidemia, unspecified; E87.6 Hypokalemia; I12.9 Hypertensive chronic kidney disease with stage 1 through stage 4 chronic kidney disease, or unspecified chronic kidney disease; N18.3 Chronic kidney disease, stage 3 (moderate); E86.0 Dehydration; B95.2 Enterococcus as the cause of diseases classified elsewhere; I48.0 Paroxysmal atrial fibrillation; N32.0 Bladder-neck obstruction; Z66 Do not resuscitate; Z68.27 Body mass index [BMI] 27.0-27.9, adult; Z87.891 Personal history of nicotine dependence; Z51.5 Encounter for palliative care; Z95.3 Presence of xenogenic heart valve; Z79.01 Long term (current) use of anticoagulants
CPT/HCPCS: 31500; 31720; 36415; 36569; 36600; 50432; 51702; 70450; 71045; 71046; 71250; 72125; 74176; 78582; 80048; 80053; 80076; 80202; 81001; 82550; 82607; 82746; 82803; 82962; 83010; 83036; 83540; 83550; 83605; 83615; 83735; 83880; 84100; 84132; 84478; 84484; 85014; 85018; 85025; 85027; 85045; 85379; 85384; 85610; 85730; 86022; 86644; 86677; 86850; 86900; 86920; 86922; 86965; 87040; 87070; 87077; 87086; 87088; 87186; 87205; 87633; 87641; 87804; 93005; 93306; 94002; 94003; 94660; 95831; 97110; 97163; 97166; 97530; 97535; 97802; 97803; 99251; 99285; A9540; A9567; J7030; J7050; P9016; P9017; P9035; P9037; A4216; G0463; J0330; J0696; J1940